=== PATIENT | male | born 1940 | race African-American/Black ===

== ENCOUNTER 2017-11-04 20:45 | Inpatient (IN) | payer OTHER, BC ==
--- NOTE | 2017-11-04 21:04 | PDOC ---
History of Present Illness - General Chief Complaint: Pain Stated Complaint: Abdominal Pain Time Seen by Provider: 11/04/17 21:01 - History of Present Illness Initial Comments: 11/04/17 21:03 77 yo M with h/o DM, HTN, CAD s/p stent placement, CHF, CVA ( residual BL motor weakness) LV systolic dysfunction,Paroxysmal A-fib, CKD, Pulm HTN, s/p transphenoidal pituitary resection who p/w seizure like activity. at bedside states that patient developed 90 minutes of upper extremity convulsions , with dsyphagia. Reports similar episode in ED room. Similar to seizure 1 month ago. Patient with chronic fecal and urinary incontinence. Denies head/neck /back trauma. also reports increased BL LE swelling x 1 day. Patient typically wheelchair bound. Compliant with medication. Recent change in home Lasix (decreased) on 20 mg PO QD. No home 02 requirements. Denies F/C, N/V, CP, SOB, abdominal pain, diarrhea, constipation, urinary complaints, weakness, lightheadedness, sensory changes. PMHx: as noted above PMD: Dr. gisel montes de oca ROS: as noted above SHx: Denies tobacco, Etoh, or IVDA. Allergies: NKDA Past History - Past Medical History Allergies/Adverse Reactions: Allergies Allergy/AdvReac Type Severity Reaction Status Date / Time No Known Allergies Allergy Verified 11/04/17 21:06 Home Medications: Ambulatory Orders Cabergoline 0.5 mg PO FAUST 11/20/13 Clopidogrel Bisulfate [Clopidogrel] 75 mg PO DAILY 11/20/13 Ranitidine HCl 150 mg PO DAILY 11/20/13 Rosuvastatin Calcium [Crestor] 10 mg PO DAILY 11/20/13 Tamsulosin HCl [Flomax -] 0.4 mg PO DAILY 11/20/13 levETIRAcetam [Keppra -] 500 mg PO DAILY 11/20/13 Isosorbide Dinitrate 20 mg PO BID #0 tablet 11/28/13 hydrALAZINE HCL [Apresoline -] 50 mg PO BID #0 tablet 11/28/13 Furosemide 20 mg PO DAILY 07/07/15 Carvedilol [Coreg -] 6.25 mg PO BID tablet 07/15/15 Ranolazine [Ranexa -] 500 mg PO BID tab 07/15/15 Cardiac Disorders: Yes (CHF) CVA: Yes (Seizure) Diabetes: Yes HTN: Yes Seizures: Yes - Surgical History Abdominal Surgery: Yes (HERNIA) Appendectomy: Yes Cardiac Surgery: Yes (STENT X 1) Orthopedic Surgery: Yes (L. elbow) - Immunization History Immunization Up to Date: Yes - Suicide/Smoking/Psychosocial Hx Smoking Status: Yes Smoking History: Current every day smoker Have you smoked in the past 12 months: Yes Number of Cigarettes Smoked Daily: 4 'Breaking Loose' booklet given: 07/07/15 Hx Alcohol Use: No Drug/Substance Use Hx: No Substance Use Type: None Hx Substance Use Treatment: No Review of Systems - Review of Systems Comments:: 11/04/17 21:03 GENERAL/CONSTITUTIONAL: No fever or chills. No weakness. HEAD, EYES, EARS, NOSE AND THROAT: No change in vision. No ear pain or discharge. No sore throat. CARDIOVASCULAR: No chest pain or shortness of breath RESPIRATORY: No cough, wheezing, or hemoptysis. GASTROINTESTINAL: No nausea, vomiting, diarrhea or constipation. GENITOURINARY: No dysuria, frequency, or change in urination. MUSCULOSKELETAL: No joint or muscle swelling or pain. No neck or back pain. SKIN: No rash NEUROLOGIC: No headache, vertigo, loss of consciousness, or change in strength/ sensation. ENDOCRINE: No increased thirst. No abnormal weight change HEMATOLOGIC/LYMPHATIC: No anemia, easy bleeding, or history of blood clots. ALLERGIC/IMMUNOLOGIC: No hives or skin allergy. *Physical Exam - Physical Exam Comments: 11/04/17 21:03 GENERAL: Awake, alert, and fully oriented, in no acute distress HEAD: No signs of trauma, normocephalic, atraumatic EYES: PERRLA, EOMI, sclera anicteric, conjunctiva clear ENT: Left eye ptosis. Auricles normal inspection, hearing grossly normal, nares patent, oropharynx clear without exudates. Moist mucosa NECK: Normal ROM, supple, no lymphadenopathy, JVD, or masses LUNGS: + Rales BL LL bases.Absent rhonci. HEART: Regular rate and rhythm, normal S1 and S2, no murmurs, rubs or gallops, peripheral pulses normal and equal bilaterally. ABDOMEN: Soft, nontender, normoactive bowel sounds. No guarding, no rebound. No masses EXTREMITIES : 3+ BL LE + Pitting edema. No clubbing or cyanosis. NEUROLOGICAL: Cranial nerves II through XII grossly intact. Normal speech. 3/5 BL UE and 2/5 BL LE SKIN: Warm, Dry, normal turgor, no rashes or lesions noted ED Treatment Course - LABORATORY CBC & Chemistry Diagram: 11/04/17 22:22 11/04/17 22:22 Medical Decision Making - Medical Decision Making 11/04/17 22:14 77 yo M with h/o DM, HTN, CAD, CHF, CVA ( residual BL motor weakness) LV systolic dysfunction,Paroxysmal A-fib, CKD, Pulm HTN, s/p transphenoidal pituitary resection who p/w seizure like activity and increased LE swelling. VSS , AF, A&Ox3. Patient with clinical s/s of fluid overload, crackles in bases, SOB , BL LE edema, Probable acute on chronic congestive heart failure. ACS/AZ r/o. R /o PNA. Will assess for electrolyte abnml, toxic or metabolic derangements,acid- base disturbances, or underlying infection. ED Course: 11/04/17 22:34 H/H: 4.8/16.8 11/04/17 23:29 BNP: 250523 ~ baseline BUN/Cr: 35/2.1 (39/1.8 2015) 2 U PRBC 11/04/17 23:50 Lasix 40 mg IVPB Patient admitted to in. tele Dr. Amanda. *DC/Admit/Observation/Transfer Diagnosis at time of Disposition: Anemia requiring transfusions, CHF (congestive heart failure) - Discharge Dispostion Condition at time of disposition: Fair Decision to Admit order: Yes - Referrals Referrals: Navya Montes De Oca MD [Primary Care Provider] - - Patient Instructions - Post Discharge Activity - Attestations Physician Attestion: 11/04/17 21:04 I attest to the information provided in this note.
[2017-11-04 22:49] LABS: BASO % 0.3 % (0-2.0); EOS % 0.9 % (0-4.5); LYMPH % 15.1 % (8-40); MCH 24.8 pg (25.7-33.7); MCHC 28.8 g/dl (32.0-35.9); MEAN CELL VOLUME 86.3 fl (80-96); MEAN PLT VOLUME 7.5 fl (7.5-11.1); MONO % 7.2 % (3.8-10.2); NEUT % 76.5 % (42.8-82.8); PLATELET COUNT 162 K/MM3 (134-434); RBC 1.95 M/mm3 (4.00-5.60); RDW 20.6 % (11.9-15.9); WHITE BLOOD COUNT 5.2 K/mm3 (4.0-10.0)
[2017-11-04 22:51] LABS: ADD RBC MORPHOLOGY YES
[2017-11-04 22:55] LABS: HEMATOCRIT 16.8 % (35.4-49); HEMOGLOBIN 4.8 GM/dL (11.7-16.9)
[2017-11-04 22:58] LABS: INR 1.37 (0.82-1.09); PROTHROMBIN TIME (PATIENT) 15.5 SEC (9.7-13.0)
[2017-11-04 23:08] LABS: ALBUMIN 2.9 g/dl (3.4-5.0); ALK PHOS 84 U/L (45-117); ANION GAP 4 (8-16); BILIRUBIN,TOTAL 0.5 mg/dL (0.2-1.0); BLOOD UREA NITROGEN 35 mg/dL (7-18); CALCIUM 7.6 mg/dL (8.5-10.1); CHLORIDE 106 mmol/L (98-107); CO2 32 mmol/L (21-32); CREATININE 2.1 mg/dL (0.7-1.3); GLUCOSE,RANDOM 116 mg/dL (74-106); POTASSIUM 4.3 mmol/L (3.5-5.1); SGOT/AST 13 U/L (15-37); SGPT/ALT 8 U/L (12-78); SODIUM 142 mmol/L (136-145); TOT PROT 6.7 g/dl (6.4-8.2)
[2017-11-04 23:22] LABS: MAGNESIUM 2.1 mg/dL (1.8-2.4)
[2017-11-04 23:23] LABS: N-TERMINAL BNP 10315.2 pg/ml (5-450)
[2017-11-04 23:29] LABS: ACANTHOCYTES 1+; ANISOCYTOSIS 1+; OVALOCYTE 1+; TEAR DROP CELLS 1+
[2017-11-04 23:31] LABS: URINE APPEARANCE CLEAR; URINE BILIRUBIN NEGATIVE (<2.0 mg/dL); URINE BLOOD NEGATIVE (NEGATIVE); URINE COLOR LTYELLOW; URINE GLUCOSE (UA) NEGATIVE (NEGATIVE); URINE KETONE NEGATIVE (NEGATIVE); URINE LEUK ESTERASE NEGATIVE (NEGATIVE); URINE NITRITE NEGATIVE (NEGATIVE); URINE UROBILINOGEN NEGATIVE mg/dL (0.2-1.0)
--- NOTE | 2017-11-04 23:40 | PDOC ---
Attending Attestation - Resident Resident Name: Ayden Franco - ED Attending Attestation I have performed the following: I have examined & evaluated the patient, The case was reviewed & discussed with the resident, I agree w/resident's findings & plan, Exceptions are as noted - HPI HPI: 11/04/17 23:39 77-year-old male brought in by ambulance. His witnessed seizure-like activity Patient was alert upon arrival - Physicial Exam PE: 11/04/17 23:40 Patient has multiple medical problems including diabetes, hypertension, coronary artery disease, status post vent placement, CHF, CVA with residual motor weakness, paroxysmal A. fib, LV systolic dysfunction, chronic kidney disease, pulmonary hypertension 11/04/17 23:41 pale appearing 77 yo male head ncat eyes cristhian ,pale conjunctiva neck supple lung no wheezing, no crackles abd protuberant extremitites +3 pitting edema neuro alert and conversant - Medical Decision Making 11/04/17 23:43 labs reveal he is very anemic with hbg=4 and hemoglobin =16 -no vomiting,no melena and stool culture for occult blood is negative,admit to transfuse
[2017-11-04] MEDS ORDERED: FUROSEMIDE 40 MG/4 ML INJECTABLE VIAL IVPUSH ONE (23:49)
[2017-11-05] MEDS ORDERED: FUROSEMIDE 40 MG/4 ML INJECTABLE VIAL ONE ×2 (00:01→13:00)
[2017-11-05 00:04] LABS: URINE PROTEIN 1+ (NEGATIVE)
[2017-11-05 00:49] LABS: EPI CELLS RARE /HPF (FEW)
--- NOTE | 2017-11-05 02:21 | HP ---
CHIEF COMPLAINT: seizure PCP: Ochoa Montes De Oca HISTORY OF PRESENT ILLNESS: This is a 77 year old male with a past medical history significant for HTN, CAD , CHF, seizure disorder presented to the ED after seizure activity at home. As per the ED provider, reported shaking activity of upper extremities and difficulty speaking, speech was unintelligible. She stated this lasted for 90minutes. Upon exam pt reports that he came in because he was having difficulty speaking. He also reports that someone recently discontinued many of his medications. He is unclear but it seems as if he was recently discharged from a SNF. ER course was notable for: (1) Hgb 4.8 (2) BUN 35, Cr 2.1 (3) CXR with vascular congestion Recent Travel: pt denies PAST MEDICAL HISTORY: DM, HTN, CAD, CHF/LV systolic dysfunction, PAfib, pulmonary HTN, CVA PAST SURGICAL HISTORY: cardiac stent pituitary resection hernia repair L elbow sx Social History: Smoking: quit 6 mo ago, previous 4cig/day Alcohol: pt denies Drugs: pt denies Family History: pt unsure Allergies No Known Allergies Allergy (Verified 11/04/17 21:06) HOME MEDICATIONS: 3 Medication Instructions Recorded Tamsulosin HCl [Flomax -] 0.4 mg PO DAILY 11/20/13 Furosemide 40 mg PO DAILY 07/07/15 Febuxostat [Uloric -] 80 mg PO DAILY 11/05/17 Lisinopril 2 tablet PO DAILY 11/05/17 Omeprazole 20 mg PO DAILY 11/05/17 REVIEW OF SYSTEMS CONSTITUTIONAL: Absent: fever, chills, diaphoresis, generalized weakness, malaise, loss of appetite, weight change HEENT: Absent: rhinorrhea, nasal congestion, throat pain, throat swelling, difficulty swallowing, mouth swelling, ear pain, eye pain, visual changes CARDIOVASCULAR: Absent: chest pain, syncope, palpitations, irregular heart rate, lightheadedness , peripheral edema RESPIRATORY: Absent: cough, shortness of breath, dyspnea with exertion, orthopnea, wheezing, stridor, hemoptysis GASTROINTESTINAL: Absent: abdominal pain, abdominal distension, nausea, vomiting, diarrhea, constipation, melena, hematochezia GENITOURINARY: Absent: dysuria, frequency, urgency, hesitancy, hematuria, flank pain, genital pain MUSCULOSKELETAL: Absent: myalgia, arthralgia, joint swelling, back pain, neck pain SKIN: Absent: rash, itching, pallor HEMATOLOGIC/IMMUNOLOGIC: Absent: easy bleeding, easy bruising, lymphadenopathy, frequent infections ENDOCRINE: Absent: unexplained weight gain, unexplained weight loss, heat intolerance, cold intolerance NEUROLOGIC: Present: upper extremity shaking, difficulty speaking Absent: headache, focal weakness or paresthesias, dizziness, unsteady gait, mental status changes, bladder or bowel incontinence PSYCHIATRIC: Absent: anxiety, depression, suicidal or homicidal ideation, hallucinations. PHYSICAL EXAMINATION Vital Signs - 24 hr 3 11/04/17 11/04/17 11/05/17 21:01 21:05 01:35 Temperature 98.8 F 97.9 F Pulse Rate 59 L Pulse Rate [ 66 Apical] Respiratory 16 24 Rate Blood Pressure 144/78 Blood Pressure 115/66 [Right Arm] O2 Sat by Pulse 92 L 97 95 Oximetry (%) 3 11/05/17 01:50 Temperature 97.8 F Pulse Rate Pulse Rate [ 58 L Apical] Respiratory 22 Rate Blood Pressure Blood Pressure 146/63 [Right Arm] O2 Sat by Pulse 95 Oximetry (%) GENERAL: Awake, alert, and fully oriented, in no acute distress. HEAD: Normal with no signs of trauma. EYES: Pupils equal, round and reactive to light, extraocular movements intact, sclera anicteric, conjunctiva clear. No lid lag. EARS, NOSE, THROAT: Ears normal, nares patent, oropharynx clear without exudates. Moist mucous membranes. NECK: Normal range of motion, supple without lymphadenopathy, JVD, or masses. LUNGS: Crackles bilat bases. No accessory muscle use. HEART: Regular rate and rhythm, normal S1 and S2 without murmur, rub or gallop. ABDOMEN: Soft, nontender, not distended, normoactive bowel sounds, no guarding, no rebound, no masses. No hepatomegaly or splenomegaly. MUSCULOSKELETAL: Normal range of motion at all joints. No bony deformities or tenderness. No CVA tenderness. UPPER EXTREMITIES: 2+ pulses, warm, well-perfused. No cyanosis. No clubbing. No peripheral edema. noted with tremors to upper extremities LOWER EXTREMITIES: 2+ pulses, warm, well-perfused. No calf tenderness. No peripheral edema. NEUROLOGICAL: Cranial nerves II-XII intact. Stuttering speech noted. PSYCHIATRIC: Cooperative. Good eye contact. Appropriate mood and affect. SKIN: Warm, dry, normal turgor, no rashes or lesions noted, normal capillary refill. Laboratory Results - last 24 hr 3 11/04/17 11/04/17 11/04/17 22:22 22:22 22:22 WBC 5.2 RBC 1.95 L D Hgb 4.8 L* D Hct 16.8 L D MCV 86.3 MCH 24.8 L MCHC 28.8 L RDW 20.6 H D Plt Count 162 MPV 7.5 Neutrophils % 76.5 Lymphocytes % 15.1 D Monocytes % 7.2 Eosinophils % 0.9 Basophils % 0.3 Hypochromia 3+ Polychromasia 1+ Anisocytosis 1+ Tear Drop Cells 1+ Ovalocytes 1+ Acanthocytes (Spur) 1+ PT with INR 15.50 H INR 1.37 H Sodium 142 Potassium 4.3 Chloride 106 Carbon Dioxide 32 Anion Gap 4 L BUN 35 H Creatinine 2.1 H Creat Clearance w eGFR 30.62 Random Glucose 116 H Calcium 7.6 L Magnesium Total Bilirubin 0.5 D AST 13 L D ALT 8 L D Alkaline Phosphatase 84 Creatine Kinase Troponin I B-Natriuretic Peptide Total Protein 6.7 Albumin 2.9 L Urine Color Urine Appearance Urine pH Ur Specific [place] Urine Protein Urine Glucose (UA) Urine Ketones Urine Blood Urine Nitrite Urine Bilirubin Urine Urobilinogen Ur Leukocyte Esterase Urine WBC (Auto) Urine RBC (Auto) Ur Epithelial Cells Stool Occult Blood Anti-A Titer Blood Type Antibody Screen Crossmatch 3 11/04/17 11/04/17 11/04/17 11/04/17 22:22 22:22 22:22 22:56 WBC RBC Hgb Hct MCV MCH MCHC RDW Plt Count MPV Neutrophils % Lymphocytes % Monocytes % Eosinophils % Basophils % Hypochromia Polychromasia Anisocytosis Tear Drop Cells Ovalocytes Acanthocytes (Spur) PT with INR INR Sodium Potassium Chloride Carbon Dioxide Anion Gap BUN Creatinine Creat Clearance w eGFR Random Glucose Calcium Magnesium 2.1 Total Bilirubin AST ALT Alkaline Phosphatase Creatine Kinase 108 Troponin I 0.02 D B-Natriuretic Peptide 37935.20 H Total Protein Albumin Urine Color Urine Appearance Urine pH Ur Specific [place] Urine Protein Urine Glucose (UA) Urine Ketones Urine Blood Urine Nitrite Urine Bilirubin Urine Urobilinogen Ur Leukocyte Esterase Urine WBC (Auto) Urine RBC (Auto) Ur Epithelial Cells Stool Occult Blood Negative Anti-A Titer Cancelled Blood Type B POSITIVE Cancelled Antibody Screen Negative Cancelled Crossmatch See Detail 3 Urine Color Ltyellow 11/04/17 23:17 Urine Appearance Clear 11/04/17 23:17 Urine pH 5.0 (5.0-8.0) 11/04/17 23:17 Ur Specific [place] 1.013 (1.001-1.035) 11/04/17 23:17 Urine Protein 1+ (NEGATIVE) H 11/04/17 23:17 Urine Glucose (UA) Negative (NEGATIVE) 11/04/17 23:17 Urine Ketones Negative (NEGATIVE) 11/04/17 23:17 Urine Blood Negative (NEGATIVE) 11/04/17 23:17 Urine Nitrite Negative (NEGATIVE) 11/04/17 23:17 Urine Bilirubin Negative (<2.0 mg/dL) 11/04/17 23:17 Ur Leukocyte Esterase Negative (NEGATIVE) 11/04/17 23:17 Urine WBC (Auto) 1 11/04/17 23:17 Urine RBC (Auto) <1 11/04/17 23:17 Ur Epithelial Cells Rare /HPF (FEW) 11/04/17 23:[address] head noncontrast THIS IS A PRELIMINARY REPORT FROM [employer] [employer] No acute brain parenchymal abnormality. No hemorrhage, mass or acute territorial infarct. Atrophy and chronic small vessel ischemic changes. Osteoma left frontal sinus. Visualized mastoid air cells clear. THIS DOCUMENT HAS BEEN ELECTRONICALLY SIGNED Chen Juarez M.D. 11/05/2017 01:18 EST ASSESSMENT/PLAN: 77yM with PMH DM, HTN, CAD, CHF/LV systolic dysfunction, PAfib, pulmonary HTN, CVA presented to the ED with seizure like activity. seizure activity - pt previously on keppra at home, unclear why DC - start keppra 500mg IV x 1 - neurology consult-pt does not know if he sees a neurologist as an outpatient CHF exac - reported to ED staff that his lasix dose was recently reduced to 20mg daily but she is unclear why - lasix 40mg x 1 now - will need to assess between units of blood if needs additional 40mg - echo ordered Severe anemia - 2uPRBC now - unclear etiology. Stool occ negative - elevated RDW points to blood loss - stool occ blood x 2 more ordered HTN/CAD - home isordil and ranexa stopped, unclear why, cardiology consult ordered - cont home lisinopril PAfib - not on AC, cardiology consult DM - on no home meds, glucose 116, cont to monitor with BMP, if hi will add novolog sliding scale and BGM CKD - Cr 2.1, baseline 1.8-1.9 in 2016, likely not far from baseline, cont to monitor, consider renal consult DVT PPX - heparin deferred due to severe anemia FEN - No IVF, receiving blood presently - BMP in am - NPO for now. Dispo: Pt currently requires further inpatient monitoring. Visit type - Emergency Visit Emergency Visit: Yes ED Registration Date: 11/04/17 Care time: The patient presented to the Emergency Department on the above date and was hospitalized for further evaluation of their emergent condition. - New Patient This patient is new to me today: Yes Date on this admission: 11/05/17 - Critical Care Critical Care patient: No Hospitalist Screening - Colonoscopy Questionnaire Colonoscopy Questionnaire: Colonoscopy Questionnaire - Patient: 50 - 75 years old and never had a screening colonoscopy: No History of colon or rectal polyps, or CA: No History of IBD, Crohn's disease or UC: No History of abdominal radiation therapy as a child: No - Relative: 1 with colon or rectal CA, or polyps at age 60 or younger: Unknown Colon or rectal CA diagnosed at age 45 or younger: Unknown Multiple relatives with colon or rectal CA: Unknown - Outcome: Screening Result: Negative Screen
[2017-11-05] MEDS ORDERED: levETIRAcetam 500 MG/5 ML INJECTION VIAL IVPB ONE ×2 (03:09→04:03)
--- NOTE | 2017-11-05 09:41 | PN ---
Progress Note, Physician History of Present Illness: 77yM with PMH DM, HTN, CAD, CHF/LV systolic dysfunction, PAfib, pulmonary HTN, CVA presented to the ED with seizure like activity. - Current Medication List Current Medications: Active Medications Febuxostat (Uloric -) 80 mg PO DAILY MICHAEL Lisinopril (Prinivil) 40 mg PO DAILY MICHAEL Pantoprazole Sodium (Protonix -) 20 mg PO DAILY MICHAEL Tamsulosin HCl (Flomax -) 0.4 mg PO DAILY@08[facility] - Objective Vital Signs: Vital Signs Temperature 98.2 F 11/05/17 04:50 Pulse Rate 68 11/05/17 07:00 Respiratory Rate 18 11/05/17 07:00 Blood Pressure 156/57 11/05/17 07:00 O2 Sat by Pulse Oximetry (%) 96 11/05/17 07:00 Labs: CBC, BMP 11/04/17 22:22 11/04/17 22:22 INR, PTT INR 1.37 (0.82-1.09) H 11/04/17 22:22 Problem List - Problems (1) Anemia requiring transfusions Assessment/Plan: -Severe anemia - 2uPRBC--follow up cbc - unclear etiology. Stool occ negative - elevated RDW points to blood loss - stool occ blood x 2 more ordered - No IVF, receiving blood presently - GI consult - NPO for now. Code(s): D64.9 - ANEMIA, UNSPECIFIED (2) CHF (congestive heart failure) Assessment/Plan: -CHF exac - lasix 40mg given - will need to assess between units of blood if needs additional 40mg - echo ordered -cardio Code(s): I50.9 - HEART FAILURE, UNSPECIFIED (3) Afib Assessment/Plan: -not on Ac -cardio Code(s): I48.91 - UNSPECIFIED ATRIAL FIBRILLATION Qualifiers: Atrial fibrillation type: paroxysmal Qualified Code(s): I48.0 - Paroxysmal atrial fibrillation (4) CAD (coronary artery disease) Assessment/Plan: -monitor Code(s): I25.10 - ATHSCL HEART DISEASE OF [place] CORONARY ARTERY W/O ANG PCTRS (5) Seizure disorder Assessment/Plan: - pt previously on keppra at home, unclear why DC - start keppra 500mg IV x 1 - neurology consult-pt does not know if he sees a neurologist as an outpatient Code(s): G40.909 - EPILEPSY, UNSP, NOT INTRACTABLE, WITHOUT STATUS EPILEPTICUS
[2017-11-05 10:44] LABS: BASO % 0.7 % (0-2.0); EOS % 1.3 % (0-4.5); LYMPH % 15.8 % (8-40); MCHC 30.4 g/dl (32.0-35.9); MEAN CELL VOLUME 85.4 fl (80-96); MEAN PLT VOLUME 7.7 fl (7.5-11.1); NEUT % 74.2 % (42.8-82.8); PLATELET COUNT 171 K/MM3 (134-434); RBC 2.44 M/mm3 (4.00-5.60); RDW 18.1 % (11.9-15.9); WHITE BLOOD COUNT 5.2 K/mm3 (4.0-10.0)
[2017-11-05 10:51] LABS: HEMATOCRIT 20.8 % (35.4-49); HEMOGLOBIN 6.3 GM/dL (11.7-16.9)
[2017-11-05 10:57] LABS: ANION GAP 5 (8-16); BLOOD UREA NITROGEN 37 mg/dL (7-18); CALCIUM 7.7 mg/dL (8.5-10.1); CHLORIDE 107 mmol/L (98-107); CO2 30 mmol/L (21-32); CREATININE 2.1 mg/dL (0.7-1.3); GLUCOSE,RANDOM 93 mg/dL (74-106); PHOSPHOROUS 5.3 mg/dL (2.5-4.9); POTASSIUM 4.3 mmol/L (3.5-5.1); SODIUM 142 mmol/L (136-145)
[2017-11-05] MEDS ORDERED: FUROSEMIDE 40 MG/4 ML INJECTABLE VIAL IVPUSH ONE (11:00)
--- NOTE | 2017-11-05 11:06 | CON.CARD ---
Cardiology Consult (text) - Consultation Consultation Note: CC: seizure 77yo with hx of cmpathy/systolic chf with severely reduced lvef, pafib, cad s/ p remote pci (2010 per pt), htn, hld, ckd (bline cr? ~ 1.8-2.0), CVA ( residual BL motor weakness) , seizure who p/w possible seizure, ER course notable for hgb of 4.0. per report, patient developed 90 minutes of upper extremity convulsions, with dysphagia. Reports similar episode in ED room. Similar to seizure 1 month ago. Recent change in home Lasix (decreased) to 20 mg PO QD. States his LE edema has been stable/improved. Denies bleeding. denies orthopnea, pnd, cp, sob, palps, dizziness. denies f/c/s, n/v/d, cough, congestion, h/a, rash, visual disturbances. 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 fam: no premature cad or scd ros: per hpi Ambulatory Orders Tamsulosin HCl [Flomax -] 0.4 mg PO DAILY 11/20/13 Furosemide 40 mg PO DAILY 07/07/15 Febuxostat [Uloric -] 80 mg PO DAILY 11/05/17 Lisinopril 2 tablet PO DAILY 11/05/17 Omeprazole 20 mg PO DAILY 11/05/17 Current Medications Febuxostat (Uloric -) 80 mg PO DAILY [facility] Furosemide (Lasix Injection -) 40 mg IVPUSH ONCE ONE Stop: 11/05/17 11:01 Lisinopril (Prinivil) 40 mg PO DAILY [facility] Pantoprazole Sodium (Protonix -) 20 mg PO DAILY [facility] Tamsulosin HCl (Flomax -) 0.4 mg PO DAILY@0830 [facility] Vital Signs - 24 hr 11/04/17 11/04/17 11/05/17 21:01 21:05 01:35 Temperature 98.8 F 97.9 F Pulse Rate 59 L Pulse Rate [ 66 Apical] Respiratory 16 24 Rate Blood Pressure 144/78 Blood Pressure 115/66 [Right Arm] O2 Sat by Pulse 92 L 97 95 Oximetry (%) 11/05/17 11/05/17 11/05/17 01:50 03:41 04:35 Temperature 97.8 F 98.0 F 98.1 F Pulse Rate Pulse Rate [ 58 L 69 60 Apical] Respiratory 22 26 H 21 Rate Blood Pressure Blood Pressure 146/63 139/72 152/80 [Right Arm] O2 Sat by Pulse 95 100 100 Oximetry (%) 11/05/17 11/05/17 04:50 07:00 Temperature 98.2 F Pulse Rate Pulse Rate [ 62 68 Apical] Respiratory 19 18 Rate Blood Pressure Blood Pressure 144/85 156/57 [Right Arm] O2 Sat by Pulse 100 96 Oximetry (%) Intake & Output 11/03/17 11/04/17 11/05/17 11/06/17 07:59 07:59 07:59 07:59 Weight 265 lb nad, calm, sleepy jvd at clavicle, neck supple bibasilar rales, nl effort rrr nl s1, s2 2/6 sys murmur at apex. + bs soft nt nd, no hsm ext with trace edema diminished dp/pt alert and oriented no jaundice, diaphoresis CBC, BMP 11/05/17 10:23 11/05/17 10:23 Laboratory Tests 07/06/15 11/04/17 11/04/17 17:08 22:22 22:22 Hgb 4.8 L* D INR 1.37 H Creatinine Magnesium Total Bilirubin AST ALT Alkaline Phosphatase B-Natriuretic Peptide 49548.88 H Troponin I Stool Occult Blood 11/04/17 11/04/17 11/04/17 22:22 22:22 22:56 Hgb INR Creatinine 2.1 H Magnesium 2.1 Total Bilirubin 0.5 D AST 13 L D ALT 8 L D Alkaline Phosphatase 84 B-Natriuretic Peptide 85744.20 H Troponin I 0.02 D Stool Occult Blood Negative 11/05/17 10:23 Hgb INR Creatinine Magnesium 2.0 Total Bilirubin AST ALT Alkaline Phosphatase B-Natriuretic Peptide Troponin I Stool Occult Blood ekg: afib, svr (52 bpm). no acute ischemic changes. tele: afib, rate's controlled. Intermittent slow ventricular response. head ct: no acute pathology cxr: bibasilar atelectasis, can't exclude early infiltrate. by my review ? congestion (fluid in fissure). 07/20/15 Cardiac cath - Right-Sided Pressures are Increased, Mild Pulmonary Hypertension (pa mean 30), PVRI is mildly increased - 5, PCW is increased- 18, LVEDP is mildly elevated-18, Decreased Cardiac Output ~ 5.6 liter/min Coronary Anatomy : I Vessel CAD (RCA) LV Function/Aorta : Moderate systolic LV Dysfunction ~EF 35% Valves : 1. No Aortic stenosis 2. No Mitral stenosis 07/21/15 TTE - normal left ventricular size overall moderate decreased left ventricular systolic function (diffuse); ejection fraction = 43 % moderate concentric left ventricular hypertrophy abnormal left ventricular diastolic filling pattern [may be due to age or LVH] probable mild right ventricular dilatation probable mild decreased right ventricular function mild to moderate mitral regurgitation mild tricuspid regurgitation mild pulmonary hypertension ascending aorta dilatation technically difficult study Definity precision microbubble contrast used to enhance endocardial border definition mibi 06/2015: lvef 33%, no defects but +tid c/w high risk study ASSESSMENT/PLAN 77yo with hx of cmpathy/systolic chf with severely reduced lvef, pafib, cad s/ p remote pci (2010 per pt), htn, hld, ckd (bline cr? ~ 1.8-2.0), CVA ( residual BL motor weakness) , seizure who p/w possible seizure, ER course notable for hgb of 4.0. anemia - ongoing transfusions. tolerating, no developing signs of volume overload with intermittent IV lasix. - GI following. Seizure/cva - neuro following - tele monitoring, monitor for arrhythmias. - echo. Permanent Afib - on last discharge from [facility] in 2015 was d/c on eliquis and asa. AC not on recent med list. ? at what point it was stopped - ok to hold AC/anti-platelets in setting of profound anemia. - However, if neuro concerned for embolic stroke --> will need to d/w GI regarding etiology of anemia. - rate controlled off av sravanthi blockade. Systolic HF - had previously been on coreg, would now resume yet in light of afib with slow ventricular rate. con't lisinopril. repeat echo pending. - s/p lasix 40 mg IV x 1 on 11/04 and 11/05. Patient denies sx's of volume overload. Prior d/c weight from 2016 was 213 lbs. Cxr by my review with ? congestion. If Creatinine stable tomorrow on iv lasix, would con't current iv lasix dose daily. - daily weights, i/o's. bmp. CAD hx prior PCI s/p (+) MPI at OSH. (no recent interventions) - ~S/p Cardiac cath 07/20/15 with Non Obstructive CAD. - holding anti-plateletes in light of profound anemia. - currently not on statin?, previously on crestor 10 mg/day, will resume. htn - bp controlled on current regimen, con't
--- NOTE | 2017-11-05 12:35 | CON.GI ---
Consult Consult Specialty:: GI Reason for Consultation:: Anemia - History of Present Illness History of Present Illness: Chart reviewed. Events noted. Per initial intake: This is a 77 year old male with a past medical history significant for HTN, CAD, CHF, seizure disorder presented to the ED after seizure activity at home. As per the ED provider, reported shaking activity of upper extremities and difficulty speaking, speech was unintelligible. She stated this lasted for 90minutes. Upon exam pt reports that he came in because he was having difficulty speaking. He also reports that someone recently discontinued many of his medications. He is unclear but it seems as if he was recently discharged from a SNF. Admission labs reveal hbg 4 g/dl. Normocytic, hypochromic. Negative hemoccult. No melanotic stools hematemesis, hematochezia. No prior history of GI bledeing. No stigmata of resent, or ongoing GI bleeding otherwise reported. Recieved 2 u PRBC last night. Hgb 6.3 this am. At the time of this encounter, Head of the bed elevated about 40 degree. dyspneic, has difficulty completing sentences due to shortens of breath. Denies abdominal pain, nausea, diarrhea, dysphagia, odynophagia, dyspepsia. 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) History of Recent Travel: No Home Medications - Allergies Allergies/Adverse Reactions: Allergies Allergy/AdvReac Type Severity Reaction Status Date / Time No Known Allergies Allergy Verified 11/04/17 21:06 - Home Medications Home Medications: Ambulatory Orders Tamsulosin HCl [Flomax -] 0.4 mg PO DAILY 11/20/13 Furosemide 40 mg PO DAILY 07/07/15 Febuxostat [Uloric -] 80 mg PO DAILY 11/05/17 Lisinopril 2 tablet PO DAILY 11/05/17 Omeprazole 20 mg PO DAILY 11/05/17 Family Disease History - Family Disease History Family History: Unremarkable Review of Systems Findings/Remarks: as per HPI, H&P Physical Exam-GI Vital Signs: Vital Signs Temperature 98.2 F 11/05/17 04:50 Pulse Rate 68 11/05/17 07:00 Respiratory Rate 18 11/05/17 07:00 Blood Pressure 156/57 11/05/17 07:00 O2 Sat by Pulse Oximetry (%) 96 11/05/17 07:00 Constitutional: Yes: Moderate Distress Eyes: Yes: Conjunctiva Clear HENT: Yes: Atraumatic Neck: Yes: Supple Respiratory: Yes: Orthopnea, SOB. No: Cough, Wheezes Gastrointestinal Inspection: Yes: Distention ...Palpate: Yes: Soft. No: Firm/Rigid, Guarding, Mass, Tenderness, Tenderness, Epigastium, Tenderness, Rebound ...Rectal Exam: Yes: Guaiac Negative Neurological: Yes: Alert Labs: CBC, BMP 11/05/17 10:23 11/05/17 10:23 INR, PTT INR 1.37 (0.82-1.09) H 11/04/17 22:22 Laboratory Last Values WBC 5.2 K/mm3 (4.0-10.0) 11/05/17 10:23 RBC 2.44 M/mm3 (4.00-5.60) L D 11/05/17 10:23 Hgb 6.3 GM/dL (11.7-16.9) L* D 11/05/17 10:23 Hct 20.8 % (35.4-49) L D 11/05/17 10:23 MCV 85.4 fl (80-96) 11/05/17 10:23 MCH 26.0 pg (25.7-33.7) 11/05/17 10:23 MCHC 30.4 g/dl (32.0-35.9) L 11/05/17 10:23 RDW 18.1 % (11.9-15.9) H D 11/05/17 10:23 Plt Count 171 K/MM3 (134-434) 11/05/17 10:23 MPV 7.7 fl (7.5-11.1) 11/05/17 10:23 Neutrophils % 74.2 % (42.8-82.8) 11/05/17 10:23 Lymphocytes % 15.8 % (8-40) 11/05/17 10:23 Monocytes % 8.0 % (3.8-10.2) 11/05/17 10:23 Eosinophils % 1.3 % (0-4.5) 11/05/17 10:23 Basophils % 0.7 % (0-2.0) 11/05/17 10:23 Hypochromia 3+ 11/04/17 22:22 Polychromasia 1+ 11/04/17 22:22 Anisocytosis 1+ 11/04/17 22:22 Tear Drop Cells 1+ 11/04/17 22:22 Ovalocytes 1+ 11/04/17 22:22 Acanthocytes (Spur) 1+ 11/04/17 22:22 PT with INR 15.50 SEC (9.7-13.0) H 11/04/17 22:22 INR 1.37 (0.82-1.09) H 11/04/17 22:22 Sodium 142 mmol/L (136-145) 11/05/17 10:23 Potassium 4.3 mmol/L (3.5-5.1) 11/05/17 10:23 Chloride 107 mmol/L (98-107) 11/05/17 10:23 Carbon Dioxide 30 mmol/L (21-32) 11/05/17 10:23 Anion Gap 5 (8-16) L 11/05/17 10:23 BUN 37 mg/dL (7-18) H 11/05/17 10:23 Creatinine 2.1 mg/dL (0.7-1.3) H 11/05/17 10:23 Creat Clearance w eGFR 30.62 (>60) 11/04/17 22:22 Random Glucose 93 mg/dL (74-106) 11/05/17 10:23 Calcium 7.7 mg/dL (8.5-10.1) L 11/05/17 10:23 Phosphorus 5.3 mg/dL (2.5-4.9) H D 11/05/17 10:23 Magnesium 2.0 mg/dL (1.8-2.4) 11/05/17 10:23 Total Bilirubin 0.5 mg/dL (0.2-1.0) D 11/04/17 22:22 AST 13 U/L (15-37) L D 11/04/17 22:22 ALT 8 U/L (12-78) L D 11/04/17 22:22 Alkaline Phosphatase 84 U/L (45-117) 11/04/17 22:22 Creatine Kinase 108 IU/L (39-308) 11/04/17 22:22 Troponin I 0.02 ng/ml (0.00-0.05) D 11/04/17 22:22 B-Natriuretic Peptide 99337.20 pg/ml (5-450) H 11/04/17 22:22 Total Protein 6.7 g/dl (6.4-8.2) 11/04/17 22:22 Albumin 2.9 g/dl (3.4-5.0) L 11/04/17 22:22 Urine Color Ltyellow 11/04/17 23:17 Urine Appearance Clear 11/04/17 23:17 Urine pH 5.0 (5.0-8.0) 11/04/17 23:17 Ur Specific [place] 1.013 (1.001-1.035) 11/04/17 23:17 Urine Protein 1+ (NEGATIVE) H 11/04/17 23:17 Urine Glucose (UA) Negative (NEGATIVE) 11/04/17 23:17 Urine Ketones Negative (NEGATIVE) 11/04/17 23:17 Urine Blood Negative (NEGATIVE) 11/04/17 23:17 Urine Nitrite Negative (NEGATIVE) 11/04/17 23:17 Urine Bilirubin Negative (<2.0 mg/dL) 11/04/17 23:17 Urine Urobilinogen Negative mg/dL (0.2-1.0) 11/04/17 23:17 Ur Leukocyte Esterase Negative (NEGATIVE) 11/04/17 23:17 Urine WBC (Auto) 1 /hpf (3-5) 11/04/17 23:17 Urine RBC (Auto) <1 /hpf (0-3) 11/04/17 23:17 Ur Epithelial Cells Rare /HPF (FEW) 11/04/17 23:17 Stool Occult Blood Negative (NEGATIVE) 11/04/17 22:56 Anti-A Titer Cancelled 11/04/17 22:22 Blood Type B POSITIVE 11/04/17 23:27 Antibody Screen Negative 11/04/17 22:22 Crossmatch See Detail 11/04/17 22:22 Problem List - Problems (1) Anemia requiring transfusions Code(s): D64.9 - ANEMIA, UNSPECIFIED (2) CHF (congestive heart failure) Code(s): I50.9 - HEART FAILURE, UNSPECIFIED Assessment/Plan A 77 M with the above medical problems admitted for seizures, symptomatic anemia w/o stigmata of resent, or ongoing GI blood loss. S/p 2 u PRBC with resultant Hgb opf 6.3. Cardiogenic and anemia-related dyspnea. Maintain Hg above 8 g/dl. Iron profile, Haptoglobin. Agree with PPI. Clear liquid diet today. Cardiology, Neurology evaluation. Will need endoscopic work up when stable and if cleared by cardiology.
[2017-11-05] MEDS: TAMSULOSIN HCL 0.4 MG CAP.ER.24H (FP) PO SCH (12:59)
[2017-11-05] MEDS: LISINOPRIL 20 MG TABLET (FP) PO SCH (12:59)
[2017-11-05] MEDS: FEBUXOSTAT 80 MG TAB PO SCH (12:59)
[2017-11-05] MEDS: PANTOPRAZOLE 20 MG TABLET (FP) PO SCH (12:59)
--- NOTE | 2017-11-05 21:06 | CONSULT ---
Consult - text type - Consultation Consultation Note: NEUROLOGY CONSULTATION is greatly appreciated: This 77 yo man with h/o HTN, DM, Chol, ASHD, S/P Stents, CHF, AFib, pulm. HTN and CVA is wheelchair bound at home with B/L leg weakness attributed to stroke. S/P transphenoidal hypophysectomy. Maintained on: Cabergoline; Clopidogrel; Ranitidine Rosuvastatin; Tamsulosin; levETIRAcetam [Keppra -] 500 mg PO DAILY;Isosorbide; hydrALAZINE; Furosemide; Carvedilol; and, Ranexa. Recently unwell with new-onset seizure x 1 month and few days of leg swelling. Admitted after witnessed seizures which recurred in the ED where H/H was found to be 4.8/16.8. Now 6.3/20 after transfusions. Given keppra 500 mg IVPB twice in ED. CT of head (reviewed): shows moderate atrophy and scattered microvascular changes. MAIRA: Cor reg. Neck supple. No bruits NEURO: Grunts to sternal pressure with semipurposeful move'ts of L>R. Right arm flacid No response to visual threat. [id number]. Full EOM's to Doll's head. Decreased corneals R>L Leftward head turning Areflexic. Plantars silent. No response to pinch in feet. Grimaces to pinch in arms. IMP: B/L cerebral dysfunction L>>R with Right hemiparesis and left head turn. Consider acute embolic stroke. SUGGEST: Repeat CT of head in the AM. Continue levetiracetam 500 mg q 12 hrs IVPB R/O AL. Echo if cardiology agrees. Thank you very much, Gato Morillo MD
[2017-11-05 21:14] LABS: HEMATOCRIT 25.2 % (35.4-49); HEMOGLOBIN 7.6 GM/dL (11.7-16.9); MCH 26.2 pg (25.7-33.7); MEAN CELL VOLUME 87.2 fl (80-96); MEAN PLT VOLUME 7.7 fl (7.5-11.1); PLATELET COUNT 145 K/MM3 (134-434); RBC 2.89 M/mm3 (4.00-5.60); RDW 18.3 % (11.9-15.9); WHITE BLOOD COUNT 6.2 K/mm3 (4.0-10.0)
--- NOTE | 2017-11-05 23:43 | EKG ---
Test Reason : Blood Pressure : / mmHG Vent. Rate : 052 BPM Atrial Rate : 051 BPM P-R Int : 000 ms QRS Dur : 096 ms QT Int : 494 ms P-R-T Axes : 000 078 197 degrees QTc Int : 459 ms ATRIAL FIBRILLATION WITH SLOW VENTRICULAR RESPONSE CANNOT RULE OUT ANTERIOR INFARCT , AGE UNDETERMINED ABNORMAL ECG WHEN COMPARED WITH ECG OF 11-JUL-2015 14:11, T WAVE VARIATION Confirmed by OLEKSANDR WRIGHT, PREET ([id number]) on 11/05/2017 11:42:53 PM Referred By: Confirmed By:PREET LEGGETT MD
[2017-11-06] MEDS: levETIRAcetam 500 MG/5 ML INJECTION VIAL IVPB SCH ×3 (05:19→21:23)
[2017-11-06 07:56] LABS: CHLORIDE 104 mmol/L (98-107); POTASSIUM 4.3 mmol/L (3.5-5.1); SODIUM 142 mmol/L (136-145)
[2017-11-06] MEDS ORDERED: PT OWN MED DRAWER 7, Y5N ONE ×3 (08:18→21:04)
[2017-11-06 08:23] LABS: ALBUMIN 2.8 g/dl (3.4-5.0); ALK PHOS 79 U/L (45-117); ANION GAP 6 (8-16); BILIRUBIN,TOTAL 0.9 mg/dL (0.2-1.0); BLOOD UREA NITROGEN 38 mg/dL (7-18); CO2 32 mmol/L (21-32); CREATININE 1.8 mg/dL (0.7-1.3); GLUCOSE,RANDOM 80 mg/dL (74-106); SGOT/AST 11 U/L (15-37); SGPT/ALT 7 U/L (12-78); TOT PROT 6.4 g/dl (6.4-8.2)
[2017-11-06] MEDS: TAMSULOSIN HCL 0.4 MG CAP.ER.24H (FP) PO SCH (08:59)
[2017-11-06] MEDS: LISINOPRIL 20 MG TABLET (FP) PO SCH (09:19)
[2017-11-06] MEDS: PANTOPRAZOLE 20 MG TABLET (FP) PO SCH (09:19)
[2017-11-06] MEDS: FEBUXOSTAT 80 MG TAB PO SCH (09:23)
[2017-11-06] MEDS: FUROSEMIDE 40 MG/4 ML INJECTABLE VIAL IVPUSH SCH (11:26)
[2017-11-06] MEDS ORDERED: PEG 3350/NA SULF BICARB CL/KCL 4000 ML SOLN.RECON PO ONE (12:34)
[2017-11-06] MEDS ORDERED: BISACODYL 5 MG TABLET.DR (FP) PO ONE ×2 (12:34→16:30)
--- NOTE | 2017-11-06 12:37 | PN ---
Progress Note (short form) - Note Progress Note: CC: seizure S: no cp, palps, sob, dizziness. s/p prbc's. le edema stable. cards: Dr. Beckman? Current Medications Bisacodyl (Dulcolax -) 20 mg PO ONCE ONE Stop: 11/06/17 12:35 Febuxostat (Uloric -) 80 mg PO DAILY [facility] Last Admin: 11/06/17 09:23 Dose: 80 mg Furosemide (Lasix Injection -) 40 mg IVPUSH DAILY [facility] Levetiracetam (Keppra Injection -) 500 mg IVPB BID [facility] Last Admin: 11/06/17 09:18 Dose: 500 mg Lisinopril (Prinivil) 40 mg PO DAILY [facility] Last Admin: 11/06/17 09:19 Dose: 40 mg Pantoprazole Sodium (Protonix -) 20 mg PO DAILY [facility] Last Admin: 11/06/17 09:19 Dose: 20 mg Polyethylene Glycol/Electrolytes (Golytely Solution -) 4,000 ml PO ONCE ONE Stop: 11/06/17 12:35 Rosuvastatin Calcium (Crestor -) 10 mg PO [facility] Tamsulosin HCl (Flomax -) 0.4 mg PO DAILY@0830 [facility] Last Admin: 11/06/17 08:59 Dose: 0.4 mg Vital Signs - 24 hr 11/05/17 11/05/17 11/05/17 14:20 14:38 17:53 Temperature 97.5 F L 97.9 F Pulse Rate 54 L Pulse Rate [ 62 64 Apical] Respiratory 18 18 19 Rate Blood Pressure 122/65 Blood Pressure 129/50 126/59 [Right Arm] O2 Sat by Pulse 96 96 Oximetry (%) 11/05/17 11/05/17 11/05/17 18:13 18:22 19:00 Temperature Pulse Rate 62 Pulse Rate [ Apical] Respiratory 19 16 18 Rate Blood Pressure 155/71 Blood Pressure [Right Arm] O2 Sat by Pulse 99 99 Oximetry (%) 11/05/17 11/05/17 11/05/17 20:28 22:00 23:00 Temperature Pulse Rate 47 L Pulse Rate [ Apical] Respiratory 16 18 18 Rate Blood Pressure 166/63 Blood Pressure [Right Arm] O2 Sat by Pulse 99 99 Oximetry (%) 11/06/17 11/06/17 11/06/17 02:00 05:24 07:34 Temperature 98.7 F Pulse Rate 75 60 57 L Pulse Rate [ Apical] Respiratory 18 18 18 Rate Blood Pressure 155/71 153/77 124/94 Blood Pressure [Right Arm] O2 Sat by Pulse Oximetry (%) 11/06/17 07:38 Temperature Pulse Rate Pulse Rate [ Apical] Respiratory 18 Rate Blood Pressure Blood Pressure [Right Arm] O2 Sat by Pulse 99 Oximetry (%) Intake & Output 11/04/17 11/05/17 11/06/17 11/07/17 07:59 07:59 07:59 07:59 Intake Total 1090 340 Output Total 120 120 Balance -120 970 340 Weight 265 lb 234 lb 6.4 oz nad, calm jvd at clavicle, neck supple bibasilar rales, nl effort rrr nl s1, s2 2/6 sys murmur at apex. + bs soft nt nd, no hsm ext with trace edema diminished dp/pt alert and oriented no jaundice, diaphoresis CBC, BMP 11/05/17 20:55 11/06/17 06:35 Laboratory Tests 11/06/17 06:35 Ferritin 86.234 Albumin 2.8 L ekg: afib, svr (52 bpm). no acute ischemic changes. tele: afib, rate's 50's-60's. head ct: no acute pathology cxr: bibasilar atelectasis, can't exclude early infiltrate. by my review ? congestion (fluid in fissure). echo 10/2017: nl lv size/fn. 1+ rve. nl rv fn. mod brie. mild-mod ar/mr. mod- sev tr. head ct: no acute pathology. 07/20/15 [place] [facility] Right-Sided Pressures are Increased, Mild Pulmonary Hypertension (pa mean 30), PCW/LVEDP is increased- 18 Coronary Anatomy : I Vessel CAD (RCA) LV Function/Aorta : Moderate systolic LV Dysfunction ~EF 35% Valves : 1. No Aortic stenosis 2. No Mitral stenosis 07/21/15 TTE with definity MSH- normal left ventricular size. overall moderate decreased left ventricular systolic function (diffuse); ejection fraction = 43 % moderate concentric left ventricular hypertrophy abnormal left ventricular diastolic filling pattern [may be due to age or LVH] probable mild right ventricular dilatation. probable mild decreased right ventricular function mild to moderate mitral regurgitation mild tricuspid regurgitation mild pulmonary hypertension ascending aorta dilatation mibi 06/2015: lvef 33%, no defects but +tid c/w high risk study ASSESSMENT/PLAN 77yo with hx of cmpathy/systolic chf with severely reduced lvef, pafib, cad s/ p remote pci (2010 per pt), htn, hld, ckd (bline cr? ~ 1.8-2.0), possible hx of CVA? ( residual BL motor weakness), seizure who p/w seizure, ER course notable for hgb of 4.0. anemia - ongoing transfusions. tolerating, no developing signs of volume overload on daily iv lasix. - Patient endorses prior hx of GIB. States last bleed was 3 weeks ago --> was hospitalized and transfused. - GI following, plan for endoscopy. Patient high risk for sabrina-operative CV events. However, currently optimized from CV perspective. No further testing needed prior to intervention. Seizure - known hx. neuro following - no bradyarrhythmias or ventricular arrhythmias noted thus far on tele monitoring Permanent Afib - [place] [facility] was d/c on eliquis and asa. AC not on recent med list --> per patient, was subsequently stopped due to hx of prior GIB. -con't to hold AC/anti-platelets in setting of profound anemia. anemia work up as above. - rate controlled/slow off av sravanthi blockade. Systolic HF - unknown of prior systolic dysfunction was 2/2 tachymyopathy or ischemic in nature. Repeat echo here shows normalization of cardiac function despite being off optimal HF regimen. - had previously been on coreg, but not on recent outpatient med list. would con't to hold in light of afib with slow ventricular rate. con't lisinopril. - Patient denies sx's of volume overload. Prior d/c weight from 2016 was 213 lbs. Cxr by my review with ? congestion. s/p lasix 40 mg IV x 1 on 11/04 and --> Cr stable today, con't daily iv lasix. - daily weights, i/o's. bmp. CAD hx prior PCI s/p (+) MPI at OSH. (no recent interventions) - S/p Cardiac cath 07/20/15 with Non Obstructive CAD. - off anti-platelets 2/2 prior hx of GIB. here with profound anemia, con't to hold. - statin not listed on outpatient med list. previously on crestor 10 mg/day, resumed here. htn - bp overall reasonably controlled on current regimen, con't
[2017-11-06 15:10] LABS: HEMATOCRIT 24.2 % (35.4-49); HEMOGLOBIN 7.3 GM/dL (11.7-16.9); MCH 26.2 pg (25.7-33.7); MCHC 30.1 g/dl (32.0-35.9); MEAN CELL VOLUME 86.8 fl (80-96); MEAN PLT VOLUME 7.7 fl (7.5-11.1); PLATELET COUNT 155 K/MM3 (134-434); RBC 2.79 M/mm3 (4.00-5.60); RDW 18.2 % (11.9-15.9); WHITE BLOOD COUNT 6.8 K/mm3 (4.0-10.0)
--- NOTE | 2017-11-06 15:36 | PN ---
Progress Note, Physician History of Present Illness: No acute events overnight. No melena, hematochezia, hematemesis. Status post 2 units of PRBC. No blood work this morning. The patient appears to be not in distress, or discomfort. Awake, alert. - Current Medication List Current Medications: Active Medications Febuxostat (Uloric -) 80 mg PO DAILY [facility] Last Admin: 11/06/17 09:23 Dose: 80 mg Furosemide (Lasix Injection -) 40 mg IVPUSH DAILY [facility] Levetiracetam (Keppra Injection -) 500 mg IVPB BID [facility] Last Admin: 11/06/17 09:18 Dose: 500 mg Lisinopril (Prinivil) 40 mg PO DAILY [facility] Last Admin: 11/06/17 09:19 Dose: 40 mg Pantoprazole Sodium (Protonix -) 20 mg PO DAILY [facility] Last Admin: 11/06/17 09:19 Dose: 20 mg Rosuvastatin Calcium (Crestor -) 10 mg PO HS [facility] Tamsulosin HCl (Flomax -) 0.4 mg PO DAILY@0830 [facility] Last Admin: 11/06/17 08:59 Dose: 0.4 mg - Objective Vital Signs: Vital Signs Temperature 98.6 F 11/06/17 13:18 Pulse Rate 58 L 11/06/17 13:18 Respiratory Rate 18 11/06/17 13:18 Blood Pressure 152/92 11/06/17 13:18 O2 Sat by Pulse Oximetry (%) 99 11/06/17 07:38 Constitutional: Yes: No Distress, Calm Gastrointestinal: Yes: Normal Bowel Sounds, Soft. No: Melena, Rectal Bleeding, Tenderness, Vomiting Labs: CBC, BMP 11/06/17 14:41 11/06/17 06:35 INR, PTT INR 1.37 (0.82-1.09) H 11/04/17 22:22 Problem List - Problems (1) Anemia requiring transfusions Code(s): D64.9 - ANEMIA, UNSPECIFIED (2) CHF (congestive heart failure) Code(s): I50.9 - HEART FAILURE, UNSPECIFIED Assessment/Plan EGD and colonoscopy were discussed with the patient in detail. He verbalized understanding and agrees with the plan. Clear liquid diet and bowel prep tonight. CBC, CMP, PT/INR in a.m.
[2017-11-06] MEDS: ROSUVASTATIN CA 10 MG TABLET (FP) PO SCH (21:50)
--- NOTE | 2017-11-06 22:35 | PN ---
Progress Note (short form) - Note Progress Note: NEUROLOGY FOLLOW-UP: Events reviewed: H/H=7.3/24.[address] deferred as patient exhibited improved LOC last night. Now awake, alert and giving a lucid history. 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 Had seizures after the surgery with recurrence last month. After D/C to [facility] was essentially W/C bound a gradually "lost muscles" in his legs. Pt. cannot recall events prior to admission. Now: Awake, alert. Ox [facility] but recalls [facility] after 5 mins. Ox Oct, 2017, [place]. Blind OS with decreased EOMs. Full tang OD Arms normal. Legs 3/5 proximally and 4+/5 distally. Areflexic in legs. Normal sensation in the feet. IMP: 1. Mild B/L cerebral dysfunction 2. 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 3. May well have been in status epilepticus last night and/or post-ictal Much improved today. SUGGEST: Continue levetiracetam 500 mg q 12 h Check CK, B12, ESR, CRP. Aggressive Bedside PT and [facility] medically [facility]. Thank you very much, Gato Morillo MD
[2017-11-07 06:39] LABS: BASO % 0.5 % (0-2.0); EOS % 0.9 % (0-4.5); HEMATOCRIT 22.3 % (35.4-49); LYMPH % 14.3 % (8-40); MCH 26.6 pg (25.7-33.7); MCHC 31.3 g/dl (32.0-35.9); MEAN CELL VOLUME 84.8 fl (80-96); MEAN PLT VOLUME 7.5 fl (7.5-11.1); MONO % 8.1 % (3.8-10.2); NEUT % 76.2 % (42.8-82.8); PLATELET COUNT 161 K/MM3 (134-434); RBC 2.63 M/mm3 (4.00-5.60); RDW 17.8 % (11.9-15.9); WHITE BLOOD COUNT 6.3 K/mm3 (4.0-10.0)
[2017-11-07 06:40] LABS: INR 1.34 (0.82-1.09); PROTHROMBIN TIME (PATIENT) 15.1 SEC (9.7-13.0)
[2017-11-07 07:20] LABS: ALBUMIN 2.9 g/dl (3.4-5.0); ALK PHOS 83 U/L (45-117); ANION GAP 7 (8-16); BILIRUBIN,TOTAL 0.9 mg/dL (0.2-1.0); BLOOD UREA NITROGEN 35 mg/dL (7-18); CALCIUM 7.8 mg/dL (8.5-10.1); CHLORIDE 103 mmol/L (98-107); CO2 32 mmol/L (21-32); CREATININE 1.7 mg/dL (0.7-1.3); GLUCOSE,RANDOM 71 mg/dL (74-106); POTASSIUM 3.7 mmol/L (3.5-5.1); SGOT/AST 14 U/L (15-37); SGPT/ALT 7 U/L (12-78); SODIUM 142 mmol/L (136-145); TOT PROT 6.5 g/dl (6.4-8.2)
[2017-11-07 08:12] LABS: SERUM IRON SATURATION 18 % (15-55); TOTAL IRON BINDING CAPACITY 256 ug/dL (250-450); UIBC 209 ug/dL (111-343)
[2017-11-07] MEDS: TAMSULOSIN HCL 0.4 MG CAP.ER.24H (FP) PO SCH (08:30)
[2017-11-07] MEDS ORDERED: PT OWN MED DRAWER 7, Y5N ONE ×2 (09:56→10:26)
[2017-11-07] MEDS: FUROSEMIDE 40 MG/4 ML INJECTABLE VIAL IVPUSH SCH (10:17)
[2017-11-07] MEDS: levETIRAcetam 500 MG/5 ML INJECTION VIAL IVPB SCH ×2 (10:17→21:22)
[2017-11-07] MEDS: LISINOPRIL 20 MG TABLET (FP) PO SCH ×3 (10:17→16:49)
[2017-11-07 11:05] LABS: PLATELET ESTIMATE NORMAL; TEAR DROP CELLS 1+
--- NOTE | 2017-11-07 11:10 | PN ---
Progress Note (short form) - Note Progress Note: CC: seizure S: no cp, palps, sob, dizziness. cards: Dr. Beckman? Current Medications Generic Name Dose Route Start Last Admin Trade Name Kelly PRN Reason Stop Dose Admin Febuxostat 80 mg 11/05/17 10:00 11/06/17 09:23 Uloric - PO 80 mg DAILY MICHAEL Administration Furosemide 40 mg 11/06/17 11:00 11/07/17 10:17 Lasix Injection - IVPUSH 40 mg DAILY MICHAEL Administration Levetiracetam 500 mg 11/05/17 22:00 11/07/17 10:17 Keppra Injection - IVPB 500 mg BID MICHAEL Administration Lisinopril 40 mg 11/05/17 10:00 11/07/17 10:17 Prinivil PO 40 mg DAILY MICHAEL Administration Pantoprazole Sodium 20 mg 11/05/17 10:00 11/06/17 09:19 Protonix - PO 20 mg DAILY MICHAEL Administration Rosuvastatin Calcium 10 mg 11/06/17 22:00 11/06/17 21:50 Crestor - PO 10 mg HS MICHAEL Administration Tamsulosin HCl 0.4 mg 11/05/17 08:30 11/07/17 08:30 Flomax - PO Not Given DAILY@0830 [facility] Vital Signs Period Temp Pulse Resp BP Sys/Hair Pulse Ox Last 24 Hr 97.5 F-98.6 F 58-82 15-21 147-158/67-92 98-99 nad, calm jvd at clavicle, neck supple bibasilar rales, nl effort rrr nl s1, s2 2/6 sys murmur at apex. + bs soft nt nd, no hsm no le edema alert and oriented no jaundice, diaphoresis CBC, BMP 11/07/17 05:00 11/07/17 05:00 ekg: afib, svr (52 bpm). no acute ischemic changes. tele: afib, rate ok head ct: no acute pathology cxr: bibasilar atelectasis, can't exclude early infiltrate. by my review ? congestion (fluid in fissure). echo 10/2017: nl lv size/fn. 1+ rve. nl rv fn. mod brie. mild-mod ar/mr. mod- sev tr. head ct: no acute pathology. 07/20/15 Cardiac [place] [facility] [place] Right-Sided Pressures are Increased, Mild Pulmonary Hypertension (pa mean 30), PCW/LVEDP is increased- 18 Coronary Anatomy : I Vessel CAD (RCA) LV Function/Aorta : Moderate systolic LV Dysfunction ~EF 35% Valves : 1. No Aortic stenosis 2. No Mitral stenosis 07/21/15 TTE with definity [facility] [place] normal left ventricular size. overall moderate decreased left ventricular systolic function (diffuse); ejection fraction = 43 % moderate concentric left ventricular hypertrophy abnormal left ventricular diastolic filling pattern [may be due to age or LVH] probable mild right ventricular dilatation. probable mild decreased right ventricular function mild to moderate mitral regurgitation mild tricuspid regurgitation mild pulmonary hypertension ascending aorta dilatation mibi 06/2015: lvef 33%, no defects but +tid c/w high risk study ASSESSMENT/PLAN 77yo with hx of cmpathy/systolic chf with severely reduced lvef, pafib, cad s/ p remote pci (2010 per pt), htn, hld, ckd (bline cr? ~ 1.8-2.0), possible hx of CVA? ( residual BL motor weakness), seizure who p/w seizure, ER course notable for hgb of 4.0. anemia - ongoing transfusions. tolerating, no developing signs of volume overload on daily iv lasix. - Patient endorses prior hx of GIB. States last bleed was 3 weeks ago --> was hospitalized and transfused. - GI following, plan for endoscopy. Patient high risk (but not prohibitive) for sabrina-operative CV events. However, currently optimized from CV perspective. No further testing needed prior to intervention. Seizure - known hx. neuro following - no bradyarrhythmias or ventricular arrhythmias noted thus far on tele monitoring Permanent Afib - on last discharge [place] [facility] [place] was d/c on eliquis and asa. AC not on recent med list --> per patient, was subsequently stopped due to hx of prior GIB. -con't to hold AC/anti-platelets in setting of profound anemia. anemia work up as above. - rate controlled/slow off av sravanthi blockade. Systolic HF - unknown of prior systolic dysfunction was 2/2 tachymyopathy or ischemic in nature. Repeat echo here shows normalization of cardiac function despite being off optimal HF regimen. - had previously been on coreg, but not on recent outpatient med list. would con't to hold in light of afib with slow ventricular rate. con't lisinopril. - Patient denies sx's of volume overload. Prior d/c weight from 2016 was 213 lbs. Cxr by my review with ? congestion. s/p lasix 40 mg IV x 1 on 11/04 and --> Cr stable today, con't daily iv lasix. - daily weights, i/o's. bmp. CAD hx prior PCI s/p (+) MPI at OSH. (no recent interventions) - S/p Cardiac cath 07/20/15 with Non Obstructive CAD. - off anti-platelets 2/2 prior hx of GIB. here with profound anemia, con't to hold. - statin not listed on outpatient med list. previously on crestor 10 mg/day, resumed here. htn - bp overall reasonably controlled on current regimen, con't
--- NOTE | 2017-11-07 11:20 | PN ---
Progress Note, Physician Chief Complaint: AWAKE ALERT AGITATED DENIES CHEST PAIN OR SOB - Current Medication List Current Medications: Active Medications Febuxostat (Uloric -) 80 mg PO DAILY [facility] Last Admin: 11/06/17 09:23 Dose: 80 mg Furosemide (Lasix Injection -) 40 mg IVPUSH DAILY [facility] Last Admin: 11/07/17 10:17 Dose: 40 mg Levetiracetam (Keppra Injection -) 500 mg IVPB BID [facility] Last Admin: 11/07/17 10:17 Dose: 500 mg Lisinopril (Prinivil) 40 mg PO DAILY [facility] Last Admin: 11/07/17 10:17 Dose: 40 mg Pantoprazole Sodium (Protonix -) 20 mg PO DAILY [facility] Last Admin: 11/06/17 09:19 Dose: 20 mg Rosuvastatin Calcium (Crestor -) 10 mg PO HS [facility] Last Admin: 11/06/17 21:50 Dose: 10 mg Tamsulosin HCl (Flomax -) 0.4 mg PO DAILY@0830 [facility] Last Admin: 11/07/17 08:30 Dose: Not Given - Objective Vital Signs: Vital Signs Temperature 97.8 F 11/07/17 02:00 Pulse Rate 72 11/07/17 10:00 Respiratory Rate 21 11/07/17 10:00 Blood Pressure 162/78 11/07/17 10:00 O2 Sat by Pulse Oximetry (%) 98 11/07/17 10:00 Constitutional: Yes: Mild Distress Eyes: Yes: WNL HENT: Yes: WNL Neck: Yes: WNL Cardiovascular: Yes: WNL Respiratory: Yes: On Nasal O2 Gastrointestinal: Yes: Tenderness Genitourinary: Yes: Other Musculoskeletal: Yes: Muscle Weakness Edema: Yes Edema: LLE: 1+, RLE: 1+ Peripheral Pulses WNL: Yes Integumentary: Yes: WNL Wound/Incision: Yes: Clean/Dry Neurological: Yes: Pre-Existing Deficit ...Motor Strength: LLE, RLE Psychiatric: Yes: Other Labs: CBC, BMP 11/07/17 05:00 11/07/17 05:00 INR, PTT INR 1.34 (0.82-1.09) H 11/07/17 05:00 Problem List - Problems (1) Anemia requiring transfusions Code(s): D64.9 - ANEMIA, UNSPECIFIED (2) CHF (congestive heart failure) Code(s): I50.9 - HEART FAILURE, UNSPECIFIED (3) ARF (acute renal failure) Code(s): N17.9 - ACUTE KIDNEY FAILURE, UNSPECIFIED (4) Afib Code(s): I48.91 - UNSPECIFIED ATRIAL FIBRILLATION Qualifiers: Atrial fibrillation type: paroxysmal Qualified Code(s): I48.0 - Paroxysmal atrial fibrillation (5) Cardiomyopathy Code(s): I42.9 - CARDIOMYOPATHY, UNSPECIFIED (6) Diabetes mellitus Code(s): E11.9 - TYPE 2 DIABETES MELLITUS WITHOUT COMPLICATIONS Assessment/Plan TRANSFUSIONS NEEDED GI WORKUP IN PROGRESS EGD/COLONOSCOPY PER GI DVT PROPHYLAXIS ICU MONITORING FOR HEMODYNAMIC INSTABILITY WHICH IS NOW IMPROVED
[2017-11-07] MEDS: PANTOPRAZOLE 20 MG TABLET (FP) PO SCH (13:50)
[2017-11-07] MEDS: FEBUXOSTAT 80 MG TAB PO SCH ×2 (13:50→16:50)
[2017-11-07] MEDS ORDERED: SIMETHICONE 40 MG/0.6 ML BOTTLE ONE (16:02)
--- NOTE | 2017-11-07 16:18 | PROC ---
Endoscopy Procedure Endoscopy procedure completed. Please see scanned procedure report. Normal EGD Normal anastomotsis in right colon, normal terminal ileum Resume previous diet Hematology Stool for hemoccult Haptoglobin
[2017-11-07] MEDS: ROSUVASTATIN CA 10 MG TABLET (FP) PO SCH (21:22)
[2017-11-08 07:02] LABS: HEMATOCRIT 22.7 % (35.4-49); HEMOGLOBIN 7.2 GM/dL (11.7-16.9); MCH 26.9 pg (25.7-33.7); MCHC 31.6 g/dl (32.0-35.9); MEAN CELL VOLUME 85.2 fl (80-96); MEAN PLT VOLUME 7.3 fl (7.5-11.1); PLATELET COUNT 151 K/MM3 (134-434); RBC 2.66 M/mm3 (4.00-5.60); RDW 18.8 % (11.9-15.9); WHITE BLOOD COUNT 7.6 K/mm3 (4.0-10.0)
[2017-11-08 07:16] LABS: CHLORIDE 104 mmol/L (98-107); POTASSIUM 3.8 mmol/L (3.5-5.1); SODIUM 145 mmol/L (136-145)
[2017-11-08 07:26] LABS: ALBUMIN 2.9 g/dl (3.4-5.0); ANION GAP 6 (8-16); BILIRUBIN,TOTAL 0.9 mg/dL (0.2-1.0); BLOOD UREA NITROGEN 33 mg/dL (7-18); CO2 35 mmol/L (21-32); CREATININE 1.7 mg/dL (0.7-1.3); GLUCOSE,RANDOM 79 mg/dL (74-106); SGOT/AST 17 U/L (15-37); SGPT/ALT 7 U/L (12-78); TOT PROT 6.6 g/dl (6.4-8.2)
--- NOTE | 2017-11-08 07:49 | PN ---
Progress Note, Physician History of Present Illness: 77yM with PMH DM, HTN, CAD, CHF/LV systolic dysfunction, PAfib, pulmonary HTN, CVA presented to the ED with seizure like activity. - Current Medication List Current Medications: Active Medications Febuxostat (Uloric -) 80 mg PO DAILY [facility] Last Admin: 11/07/17 16:50 Dose: 80 mg Furosemide (Lasix Injection -) 40 mg IVPUSH DAILY [facility] Last Admin: 11/07/17 10:17 Dose: 40 mg Levetiracetam (Keppra Injection -) 500 mg IVPB BID [facility] Last Admin: 11/07/17 21:22 Dose: 500 mg Lisinopril (Prinivil) 40 mg PO DAILY [facility] Last Admin: 11/07/17 16:49 Dose: 40 mg Pantoprazole Sodium (Protonix -) 20 mg PO DAILY [facility] Last Admin: 11/07/17 13:50 Dose: Not Given Rosuvastatin Calcium (Crestor -) 10 mg PO HS [facility] Last Admin: 11/07/17 21:22 Dose: 10 mg Tamsulosin HCl (Flomax -) 0.4 mg PO DAILY@0830 [facility] Last Admin: 11/07/17 08:30 Dose: Not Given - Objective Vital Signs: Vital Signs Temperature 97.2 F L 11/08/17 02:00 Pulse Rate 76 11/08/17 02:00 Respiratory Rate 23 11/08/17 02:00 Blood Pressure 175/87 11/08/17 02:00 O2 Sat by Pulse Oximetry (%) 98 11/07/17 10:00 Cardiovascular: Yes: Pulse Irregular, S1, S2 Respiratory: Yes: Regular, CTA Bilaterally Gastrointestinal: Yes: Normal Bowel Sounds, Soft Labs: CBC, BMP 11/08/17 05:15 11/08/17 05:15 INR, PTT INR 1.34 (0.82-1.09) H 11/07/17 05:00 Problem List - Problems (1) Anemia requiring transfusions Assessment/Plan: -Severe anemia - 2uPRBC--follow up cbc - unclear etiology. Stool occ negative - elevated RDW points to blood loss - stool occ blood x 2 more ordered - No IVF, receiving blood presently - GI consult Endoscopy Procedure Endoscopy procedure completed. Please see scanned procedure report. Normal EGD Normal anastomotsis in right colon, normal terminal ileum Resume previous diet Hematology Stool for hemoccult Haptoglobin Code(s): D64.9 - ANEMIA, UNSPECIFIED (2) CHF (congestive heart failure) Assessment/Plan: -CHF exac - lasix 40mg given - will need to assess between units of blood if needs additional 40mg - echo ordered -cardio Code(s): I50.9 - HEART FAILURE, UNSPECIFIED (3) Afib Assessment/Plan: -not on Ac -cardio noted Code(s): I48.91 - UNSPECIFIED ATRIAL FIBRILLATION Qualifiers: Atrial fibrillation type: paroxysmal Qualified Code(s): I48.0 - Paroxysmal atrial fibrillation (4) CAD (coronary artery disease) Assessment/Plan: -monitor Code(s): I25.10 - ATHSCL HEART DISEASE OF [place] CORONARY ARTERY W/O ANG PCTRS (5) Seizure disorder Assessment/Plan: - pt previously on keppra at home, unclear why DC - start keppra 500mg IV x 1 - neurology consult-pt does not know if he sees a neurologist as an outpatient Code(s): G40.909 - EPILEPSY, UNSP, NOT INTRACTABLE, WITHOUT STATUS EPILEPTICUS
[2017-11-08 09:01] LABS: ALK PHOS 84 U/L (45-117)
[2017-11-08] MEDS: TAMSULOSIN HCL 0.4 MG CAP.ER.24H (FP) PO SCH (09:27)
[2017-11-08] MEDS: levETIRAcetam 500 MG/5 ML INJECTION VIAL IVPB SCH ×2 (09:27→22:00)
[2017-11-08] MEDS: LISINOPRIL 20 MG TABLET (FP) PO SCH (09:28)
[2017-11-08] MEDS: FUROSEMIDE 40 MG/4 ML INJECTABLE VIAL IVPUSH SCH (09:28)
[2017-11-08] MEDS: PANTOPRAZOLE 20 MG TABLET (FP) PO SCH (09:29)
[2017-11-08] MEDS ORDERED: PT OWN MED DRAWER 7, Y5N ONE ×3 (09:34→21:46)
[2017-11-08] MEDS: FEBUXOSTAT 80 MG TAB PO SCH (09:36)
--- NOTE | 2017-11-08 11:23 | PN ---
Progress Note (short form) - Note Progress Note: CC: seizure S: no cp, palps, sob, dizziness. cards: Dr. Beckman? Current Medications Generic Name Dose Route Start Last Admin Trade Name Kelly PRN Reason Stop Dose Admin Febuxostat 80 mg 11/05/17 10:00 11/08/17 09:36 Uloric - PO 80 mg DAILY MICHAEL Administration Furosemide 40 mg 11/06/17 11:00 11/08/17 09:28 Lasix Injection - IVPUSH 40 mg DAILY MICHAEL Administration Furosemide 40 mg 11/08/17 14:00 Lasix Injection - IVPUSH 11/08/17 14:01 ONCE ONE Levetiracetam 500 mg 11/05/17 22:00 11/08/17 09:27 Keppra Injection - IVPB 500 mg BID MICHAEL Administration Lisinopril 40 mg 11/05/17 10:00 11/08/17 09:28 Prinivil PO 40 mg DAILY MICHAEL Administration Pantoprazole Sodium 20 mg 11/05/17 10:00 11/08/17 09:29 Protonix - PO 20 mg DAILY MICHAEL Administration Rosuvastatin Calcium 10 mg 11/06/17 22:00 11/07/17 21:22 Crestor - PO 10 mg HS MICHAEL Administration Tamsulosin HCl 0.4 mg 11/05/17 08:30 11/08/17 09:27 Flomax - PO 0.4 mg DAILY@0830 MICHAEL Administration Vital Signs Period Temp Pulse Resp BP Sys/Hair Pulse Ox Last 24 Hr 97.2 F-97.5 F 76-84 19-23 175-183/85-87 nad, calm jvd at clavicle, neck supple bibasilar rales, nl effort rrr nl s1, s2 2/6 sys murmur at apex. + bs soft nt nd, no hsm no le edema alert and oriented no jaundice, diaphoresis CBC, BMP CBC, BMP 11/08/17 05:15 11/08/17 05:15 ekg: afib, svr (52 bpm). no acute ischemic changes. tele: afib, rate ok head ct: no acute pathology cxr: bibasilar atelectasis, can't exclude early infiltrate. by my review ? congestion (fluid in fissure). echo 10/2017: nl lv size/fn. 1+ rve. nl rv fn. mod brie. mild-mod ar/mr. mod- sev tr. head ct: no acute pathology. 07/20/15 Cardiac cath [facility] [place] Right-Sided Pressures are Increased, Mild Pulmonary Hypertension (pa mean 30), PCW/LVEDP is increased- 18 Coronary Anatomy : I Vessel CAD (RCA) LV Function/Aorta : Moderate systolic LV Dysfunction ~EF 35% Valves : 1. No Aortic stenosis 2. No Mitral stenosis 07/21/15 TTE with definity [facility] [place]- normal left ventricular size. overall moderate decreased left ventricular systolic function (diffuse); ejection fraction = 43 % moderate concentric left ventricular hypertrophy abnormal left ventricular diastolic filling pattern [may be due to age or LVH] probable mild right ventricular dilatation. probable mild decreased right ventricular function mild to moderate mitral regurgitation mild tricuspid regurgitation mild pulmonary hypertension ascending aorta dilatation mibi 06/2015: lvef 33%, no defects but +tid c/w high risk study ASSESSMENT/PLAN 77yo with hx of cmpathy/systolic chf with severely reduced lvef, pafib, cad s/ p remote pci (2010 per pt), htn, hld, ckd (bline cr? ~ 1.8-2.0), possible hx of CVA? ( residual BL motor weakness), seizure who p/w seizure, ER course notable for hgb of 4.0. anemia - ongoing transfusions. tolerating, no developing signs of volume overload on daily iv lasix. - Patient endorses prior hx of GIB. States last bleed was 3 weeks ago --> was hospitalized and transfused. - scopes done 11/07, no etiology found Seizure - known hx. neuro following - no bradyarrhythmias or ventricular arrhythmias noted thus far on tele monitoring Permanent Afib - on last discharge from [facility] [place] in 2015 was d/c on eliquis and asa. AC not on recent med list --> per patient, was subsequently stopped due to hx of prior GIB. -con't to hold AC/anti-platelets in setting of profound anemia. anemia work up as above. - rate controlled/slow off av sravanthi blockade. Systolic HF - unknown of prior systolic dysfunction was 2/2 tachymyopathy or ischemic in nature. Repeat echo here shows normalization of cardiac function despite being off optimal HF regimen. - had previously been on coreg, but not on recent outpatient med list. would con't to hold in light of afib with slow ventricular rate. con't lisinopril. - Patient denies sx's of volume overload. Prior d/c weight from 2016 was 213 lbs. Cxr by my review with ? congestion. s/p lasix 40 mg IV x 1 on 11/04 and --> Cr stable today, con't daily iv lasix. - daily weights, i/o's. bmp. CAD hx prior PCI s/p (+) MPI at OSH. (no recent interventions) - S/p Cardiac cath 07/20/15 with Non Obstructive CAD. - off anti-platelets 2/2 prior hx of GIB. here with profound anemia, con't to hold. - statin not listed on outpatient med list. previously on crestor 10 mg/day, resumed here. htn - bp overall reasonably controlled on current regimen, con't
--- NOTE | 2017-11-08 12:39 | PATH ---
Surgical Pathology Report Patient Name: BONNIE SKY [facility]. Rec. #: [id number] /Age/Gender: 1940 (Age: 77) / M Account: [id number] Location: EMERGENCY ROOM Taken: 11/07/2017 Received: 11/07/2017 Reported: 11/08/2017 Physicians: Will Zamudio M.D. Specimen(s) Received A: BX SECOND PORTION DUODENUM B: BX ANTRUM AND BODY Clinical History Anemia Final Diagnosis A. DUODENUM, SECOND PORTION, BIOPSY: DUODENAL MUCOSA WITH MODERATE TO SEVERE ACUTE AND CHRONIC DUODENITIS. B. STOMACH, ANTRUM/BODY, BIOPSY: GASTRIC ANTRAL AND BODY MUCOSA WITH MILD CHRONIC GASTRITIS. IMMUNOHISTOCHEMICAL STAIN FOR H. PYLORI IS NEGATIVE. Electronically Signed Teresa Olivo M.D. Gross Description A. Received in formalin, labeled "biopsy second portion of duodenum" are 2 tesfaye, irregular portions of soft tissue measuring 0.3 and 0.6 cm. in greatest dimension. The specimens are submitted in toto in one cassette. B. Received in formalin, labeled "biopsy antrum/body" are 3 tesfaye, irregular portions of soft tissue ranging from 0.1-0.4 cm. in greatest dimension. The specimens are submitted in toto in one cassette. 11/08/2017 [facility]11/08/2017
[2017-11-08] MEDS ORDERED: FUROSEMIDE 40 MG/4 ML INJECTABLE VIAL IVPUSH ONE (14:00)
--- NOTE | 2017-11-08 14:15 | PN ---
Progress Note, Physician History of Present Illness: No acute events overnight. No melena, hematochezia, hematemesis. Awake, alert, oriented. Not in distress. Pathology revealed severe duodenitis. H. pylori, metaplasia negative gastritis - Current Medication List Current Medications: Active Medications Amlodipine Besylate (Norvasc -) 5 mg PO DAILY [facility] Febuxostat (Uloric -) 80 mg PO DAILY [facility] Last Admin: 11/08/17 09:36 Dose: 80 mg Furosemide (Lasix Injection -) 40 mg IVPUSH DAILY [facility] Last Admin: 11/08/17 09:28 Dose: 40 mg Levetiracetam (Keppra Injection -) 500 mg IVPB BID [facility] Last Admin: 11/08/17 09:27 Dose: 500 mg Lisinopril (Prinivil) 40 mg PO DAILY [facility] Last Admin: 11/08/17 09:28 Dose: 40 mg Pantoprazole Sodium (Protonix -) 20 mg PO DAILY [facility] Last Admin: 11/08/17 09:29 Dose: 20 mg Rosuvastatin Calcium (Crestor -) 10 mg PO HS [facility] Last Admin: 11/07/17 21:22 Dose: 10 mg Tamsulosin HCl (Flomax -) 0.4 mg PO DAILY@0830 [facility] Last Admin: 11/08/17 09:27 Dose: 0.4 mg - Objective Vital Signs: Vital Signs Temperature 98.4 F 11/08/17 14:00 Pulse Rate 74 11/08/17 14:00 Respiratory Rate 20 11/08/17 14:00 Blood Pressure 161/75 11/08/17 14:00 O2 Sat by Pulse Oximetry (%) 98 11/07/17 10:00 Constitutional: Yes: No Distress, Calm Gastrointestinal: Yes: Soft. No: Melena, Rectal Bleeding, Tenderness, Vomiting Labs: CBC, BMP 11/08/17 05:15 11/08/17 05:15 INR, PTT INR 1.34 (0.82-1.09) H 11/07/17 05:00 Problem List - Problems (1) Anemia requiring transfusions Code(s): D64.9 - ANEMIA, UNSPECIFIED (2) CHF (congestive heart failure) Code(s): I50.9 - HEART FAILURE, UNSPECIFIED (3) Gastritis Code(s): K29.70 - GASTRITIS, UNSPECIFIED, WITHOUT BLEEDING (4) Acute duodenitis Code(s): K29.80 - DUODENITIS WITHOUT BLEEDING Assessment/Plan No stigmata of recent, or ongoing gastrointestinal blood loss. Continue PPI. Avoid NSAIDs. Advance diet as tolerated.
[2017-11-08] MEDS: amLODIPine BESYLATE 5 MG TABLET (FP) PO SCH (14:30)
[2017-11-09] MEDS: ROSUVASTATIN CA 10 MG TABLET (FP) PO SCH ×2 (01:35→22:31)
[2017-11-09 06:11] LABS: BASO % 0.4 % (0-2.0); EOS % 1.3 % (0-4.5); HEMOGLOBIN 8.6 GM/dL (11.7-16.9); LYMPH % 15.7 % (8-40); MCH 27.1 pg (25.7-33.7); MCHC 31.8 g/dl (32.0-35.9); MEAN CELL VOLUME 85.2 fl (80-96); MEAN PLT VOLUME 6.9 fl (7.5-11.1); MONO % 11.2 % (3.8-10.2); NEUT % 71.4 % (42.8-82.8); PLATELET COUNT 115 K/MM3 (134-434); RBC 3.17 M/mm3 (4.00-5.60); WHITE BLOOD COUNT 6.8 K/mm3 (4.0-10.0)
[2017-11-09 06:36] LABS: ALBUMIN 2.9 g/dl (3.4-5.0); ALK PHOS 81 U/L (45-117); ANION GAP 5 (8-16); BLOOD UREA NITROGEN 31 mg/dL (7-18); CALCIUM 7.8 mg/dL (8.5-10.1); CHLORIDE 101 mmol/L (98-107); CO2 38 mmol/L (21-32); CREATININE 1.6 mg/dL (0.7-1.3); GLUCOSE,RANDOM 103 mg/dL (74-106); POTASSIUM 3.6 mmol/L (3.5-5.1); SGOT/AST 15 U/L (15-37); SGPT/ALT 7 U/L (12-78); SODIUM 144 mmol/L (136-145); TOT PROT 6.7 g/dl (6.4-8.2)
--- NOTE | 2017-11-09 08:11 | PN ---
Progress Note, Physician History of Present Illness: 77yM with PMH DM, HTN, CAD, CHF/LV systolic dysfunction, PAfib, pulmonary HTN, CVA presented to the ED with seizure like activity. - Current Medication List Current Medications: Active Medications Amlodipine Besylate (Norvasc -) 5 mg PO DAILY [facility] Last Admin: 11/08/17 14:30 Dose: 5 mg Febuxostat (Uloric -) 80 mg PO DAILY [facility] Last Admin: 11/08/17 09:36 Dose: 80 mg Furosemide (Lasix Injection -) 40 mg IVPUSH DAILY [facility] Last Admin: 11/08/17 09:28 Dose: 40 mg Levetiracetam (Keppra Injection -) 500 mg IVPB BID [facility] Last Admin: 11/08/17 22:00 Dose: 500 mg Lisinopril (Prinivil) 40 mg PO DAILY [facility] Last Admin: 11/08/17 09:28 Dose: 40 mg Pantoprazole Sodium (Protonix -) 20 mg PO DAILY [facility] Last Admin: 11/08/17 09:29 Dose: 20 mg Rosuvastatin Calcium (Crestor -) 10 mg PO HS [facility] Last Admin: 11/09/17 01:35 Dose: 10 mg Tamsulosin HCl (Flomax -) 0.4 mg PO DAILY@0830 [facility] Last Admin: 11/08/17 09:27 Dose: 0.4 mg - Objective Vital Signs: Vital Signs Temperature -97.8 F L 11/09/17 06:01 Pulse Rate 65 11/09/17 06:01 Respiratory Rate 18 11/09/17 06:01 Blood Pressure 152/69 11/09/17 06:01 O2 Sat by Pulse Oximetry (%) 98 11/07/17 10:00 Cardiovascular: Yes: S1, S2 Respiratory: Yes: Regular, CTA Bilaterally Gastrointestinal: Yes: Normal Bowel Sounds, Soft Labs: CBC, BMP 11/09/17 05:55 11/09/17 05:55 INR, PTT INR 1.34 (0.82-1.09) H 11/07/17 05:00 Problem List - Problems (1) Anemia requiring transfusions Assessment/Plan: -Severe anemia - 2uPRBC yesterday--follow up cbc-8.6 - egd doudenitis - Hematology consult Endoscopy Procedure- GI consult Endoscopy procedure completed. Please see scanned procedure report. Normal EGD Normal anastomotsis in right colon, normal terminal ileum Resume previous diet Hematology Stool for hemoccult Haptoglobin Code(s): D64.9 - ANEMIA, UNSPECIFIED (2) CHF (congestive heart failure) Assessment/Plan: -CHF exac - lasix 40mg given - will need to assess between units of blood if needs additional 40mg - echo ordered -cardio Code(s): I50.9 - HEART FAILURE, UNSPECIFIED (3) Afib Assessment/Plan: -not on Ac due to gi bleed -cardio consult noted Code(s): I48.91 - UNSPECIFIED ATRIAL FIBRILLATION Qualifiers: Atrial fibrillation type: paroxysmal Qualified Code(s): I48.0 - Paroxysmal atrial fibrillation (4) CAD (coronary artery disease) Assessment/Plan: -monitor Code(s): I25.10 - ATHSCL HEART DISEASE OF [place] CORONARY ARTERY W/O ANG PCTRS (5) Seizure disorder Assessment/Plan: - pt previously on keppra at home, unclear why DC - start keppra 500mg IV x 1 - neurology consult-pt does not know if he sees a neurologist as an outpatient Code(s): G40.909 - EPILEPSY, UNSP, NOT INTRACTABLE, WITHOUT STATUS EPILEPTICUS Assessment/Plan Physical therapy--would benefit from pt--refusing
[2017-11-09] MEDS: levETIRAcetam 500 MG/5 ML INJECTION VIAL IVPB SCH ×2 (09:20→22:31)
[2017-11-09] MEDS: TAMSULOSIN HCL 0.4 MG CAP.ER.24H (FP) PO SCH (09:20)
[2017-11-09] MEDS: PANTOPRAZOLE 20 MG TABLET (FP) PO SCH (09:21)
[2017-11-09] MEDS: LISINOPRIL 20 MG TABLET (FP) PO SCH (09:21)
[2017-11-09] MEDS: amLODIPine BESYLATE 5 MG TABLET (FP) PO SCH (09:22)
[2017-11-09] MEDS: FEBUXOSTAT 80 MG TAB PO SCH (09:22)
[2017-11-09] MEDS: FUROSEMIDE 40 MG/4 ML INJECTABLE VIAL IVPUSH SCH (09:22)
--- NOTE | 2017-11-09 10:55 | PN ---
Progress Note, Physician History of Present Illness: No acute events overnight. No melena, hematochezia, hematemesis. Awake, alert, oriented. Not in distress. - Current Medication List Current Medications: Active Medications Amlodipine Besylate (Norvasc -) 5 mg PO DAILY [facility] Last Admin: 11/09/17 09:22 Dose: 5 mg Febuxostat (Uloric -) 80 mg PO DAILY [facility] Last Admin: 11/09/17 09:22 Dose: 80 mg Furosemide (Lasix Injection -) 40 mg IVPUSH DAILY [facility] Last Admin: 11/09/17 09:22 Dose: 40 mg Levetiracetam (Keppra Injection -) 500 mg IVPB BID [facility] Last Admin: 11/09/17 09:20 Dose: 500 mg Lisinopril (Prinivil) 40 mg PO DAILY [facility] Last Admin: 11/09/17 09:21 Dose: 40 mg Pantoprazole Sodium (Protonix -) 20 mg PO DAILY [facility] Last Admin: 11/09/17 09:21 Dose: 20 mg Rosuvastatin Calcium (Crestor -) 10 mg PO HS [facility] Last Admin: 11/09/17 01:35 Dose: 10 mg Tamsulosin HCl (Flomax -) 0.4 mg PO DAILY@0830 [facility] Last Admin: 11/09/17 09:20 Dose: 0.4 mg - Objective Vital Signs: Vital Signs Temperature -97.8 F L 11/09/17 06:01 Pulse Rate 65 11/09/17 06:01 Respiratory Rate 18 11/09/17 06:01 Blood Pressure 152/69 11/09/17 06:01 O2 Sat by Pulse Oximetry (%) 98 11/07/17 10:00 Constitutional: Yes: No Distress, Calm Gastrointestinal: Yes: Normal Bowel Sounds, Soft. No: Distention, Tenderness, Vomiting Labs: CBC, BMP 11/09/17 05:55 11/09/17 05:55 INR, PTT INR 1.34 (0.82-1.09) H 11/07/17 05:00 Laboratory Last Values WBC 6.8 K/mm3 (4.0-10.0) 11/09/17 05:55 RBC 3.17 M/mm3 (4.00-5.60) L 11/09/17 05:55 Hgb 8.6 GM/dL (11.7-16.9) L D 11/09/17 05:55 Hct 27.0 % (35.4-49) L D 11/09/17 05:55 MCV 85.2 fl (80-96) 11/09/17 05:55 MCH 27.1 pg (25.7-33.7) 11/09/17 05:55 MCHC 31.8 g/dl (32.0-35.9) L 11/09/17 05:55 RDW 18.0 % (11.9-15.9) H 11/09/17 05:55 Plt Count 115 K/MM3 (134-434) L D 11/09/17 05:55 MPV 6.9 fl (7.5-11.1) L 11/09/17 05:55 Neutrophils % 71.4 % (42.8-82.8) 11/09/17 05:55 Lymphocytes % 15.7 % (8-40) 11/09/17 05:55 Monocytes % 11.2 % (3.8-10.2) H 11/09/17 05:55 Eosinophils % 1.3 % (0-4.5) 11/09/17 05:55 Basophils % 0.4 % (0-2.0) 11/09/17 05:55 Nucleated RBC % 0 % (0-0) 11/09/17 05:55 Hypochromia 3+ 11/04/17 22:22 Platelet Estimate Normal 11/07/17 05:00 Polychromasia 1+ 11/04/17 22:22 Anisocytosis 1+ 11/04/17 22:22 Microcytosis 1+ 11/07/17 05:00 Tear Drop Cells 1+ 11/07/17 05:00 Ovalocytes 1+ 11/04/17 22:22 Acanthocytes (Spur) 1+ 11/04/17 22:22 Schistocytes 1+ 11/07/17 05:00 Haptoglobin 110 mg/dL (34-200) 11/06/17 06:35 PT with INR 15.10 SEC (9.7-13.0) H 11/07/17 05:00 INR 1.34 (0.82-1.09) H 11/07/17 05:00 Sodium 144 mmol/L (136-145) 11/09/17 05:55 Potassium 3.6 mmol/L (3.5-5.1) 11/09/17 05:55 Chloride 101 mmol/L (98-107) 11/09/17 05:55 Carbon Dioxide 38 mmol/L (21-32) H 11/09/17 05:55 Anion Gap 5 (8-16) L 11/09/17 05:55 BUN 31 mg/dL (7-18) H 11/09/17 05:55 Creatinine 1.6 mg/dL (0.7-1.3) H 11/09/17 05:55 Creat Clearance w eGFR 41.90 (>60) 11/09/17 05:55 Random Glucose 103 mg/dL (74-106) D 11/09/17 05:55 Calcium 7.8 mg/dL (8.5-10.1) L 11/09/17 05:55 Phosphorus 5.3 mg/dL (2.5-4.9) H D 11/05/17 10:23 Magnesium 2.0 mg/dL (1.8-2.4) 11/05/17 10:23 Iron 47 ug/dL (38-169) 11/06/17 06:35 TIBC 256 ug/dL (250-450) 11/06/17 06:35 Iron Saturation 18 % (15-55) 11/06/17 06:35 Ferritin 86.234 ng/ml (16.4-293.9) 11/06/17 06:35 Total Bilirubin 1.0 mg/dL (0.2-1.0) 11/09/17 05:55 AST 15 U/L (15-37) 11/09/17 05:55 ALT 7 U/L (12-78) L 11/09/17 05:55 Alkaline Phosphatase 81 U/L (45-117) 11/09/17 05:55 Creatine Kinase 62 IU/L (39-308) 11/07/17 06:00 Troponin I 0.02 ng/ml (0.00-0.05) D 11/04/17 22:22 B-Natriuretic Peptide 16310.20 pg/ml (5-450) H 11/04/17 22:22 Total Protein 6.7 g/dl (6.4-8.2) 11/09/17 05:55 Albumin 2.9 g/dl (3.4-5.0) L 11/09/17 05:55 Vitamin B12 1388 pg/ml (180-914) H 11/07/17 06:00 TSH 7.16 uIU/ml (0.358-3.74) H 11/07/17 05:00 Urine Color Ltyellow 11/04/17 23:17 Urine Appearance Clear 11/04/17 23:17 Urine pH 5.0 (5.0-8.0) 11/04/17 23:17 Ur Specific Tripp 1.013 (1.001-1.035) 11/04/17 23:17 Urine Protein 1+ (NEGATIVE) H 11/04/17 23:17 Urine Glucose (UA) Negative (NEGATIVE) 11/04/17 23:17 Urine Ketones Negative (NEGATIVE) 11/04/17 23:17 Urine Blood Negative (NEGATIVE) 11/04/17 23:17 Urine Nitrite Negative (NEGATIVE) 11/04/17 23:17 Urine Bilirubin Negative (<2.0 mg/dL) 11/04/17 23:17 Urine Urobilinogen Negative mg/dL (0.2-1.0) 11/04/17 23:17 Ur Leukocyte Esterase Negative (NEGATIVE) 11/04/17 23:17 Urine WBC (Auto) 1 /hpf (3-5) 11/04/17 23:17 Urine RBC (Auto) <1 /hpf (0-3) 11/04/17 23:17 Ur Epithelial Cells Rare /HPF (FEW) 11/04/17 23:17 Stool Occult Blood Negative (NEGATIVE) 11/04/17 22:56 Anti-A Titer Cancelled 11/04/17 22:22 Blood Type B POSITIVE 11/08/17 09:00 Antibody Screen Negative 11/08/17 09:00 Crossmatch See Detail 11/08/17 09:00 Problem List - Problems (1) Anemia requiring transfusions Code(s): D64.9 - ANEMIA, UNSPECIFIED (2) CHF (congestive heart failure) Code(s): I50.9 - HEART FAILURE, UNSPECIFIED (3) Gastritis Code(s): K29.70 - GASTRITIS, UNSPECIFIED, WITHOUT BLEEDING (4) Acute duodenitis Code(s): K29.80 - DUODENITIS WITHOUT BLEEDING Assessment/Plan Continue current care. Diet as tolerated.
--- NOTE | 2017-11-09 11:18 | PN ---
Progress Note (short form) - Note Progress Note: CC: seizure S: no cp, palps, sob, dizziness. cards: Dr. Beckman? Current Medications Generic Name Dose Route Start Last Admin Trade Name Kelly PRN Reason Stop Dose Admin Amlodipine Besylate 5 mg 11/08/17 13:15 11/09/17 09:22 Norvasc - PO 5 mg DAILY MICHAEL Administration Febuxostat 80 mg 11/05/17 10:00 11/09/17 09:22 Uloric - PO 80 mg DAILY MICHAEL Administration Furosemide 40 mg 11/06/17 11:00 11/09/17 09:22 Lasix Injection - IVPUSH 40 mg DAILY MICHAEL Administration Levetiracetam 500 mg 11/05/17 22:00 11/09/17 09:20 Keppra Injection - IVPB 500 mg BID MICHAEL Administration Lisinopril 40 mg 11/05/17 10:00 11/09/17 09:21 Prinivil PO 40 mg DAILY [facility]HAEL Administration Pantoprazole Sodium 20 mg 11/05/17 10:00 11/09/17 09:21 Protonix - PO 20 mg DAILY [facility]EL Administration Rosuvastatin Calcium 10 mg 11/06/17 22:00 11/09/17 01:35 Crestor - PO 10 mg HS MICHAEL Administration Tamsulosin HCl 0.4 mg 11/05/17 08:30 11/09/17 09:20 Flomax - PO 0.4 mg DAILY@0830 [facility]EL Administration Vital Signs Period Temp Pulse Resp BP Sys/Hair Pulse Ox Last 24 Hr -97.8 F-98.6 F 65-77 18-20 148-167/68-81 nad, calm jvd at clavicle, neck supple bibasilar rales, nl effort rrr nl s1, s2 2/6 sys murmur at apex. + bs soft nt nd, no hsm no le edema alert and oriented no jaundice, diaphoresis CBC, BMP CBC, BMP 11/09/17 05:55 11/09/17 05:55 ekg: afib, svr (52 bpm). no acute ischemic changes. tele: afib, rate ok head ct: no acute pathology cxr: bibasilar atelectasis, can't exclude early infiltrate. by my review ? congestion (fluid in fissure). echo 10/2017: nl lv size/fn. 1+ rve. nl rv fn. mod brie. mild-mod ar/mr. mod- sev tr. head ct: no acute pathology. 07/20/15 Cardiac cath [facility]- Right-Sided Pressures are Increased, Mild Pulmonary Hypertension (pa mean 30), PCW/LVEDP is increased- 18 Coronary Anatomy : I Vessel CAD (RCA) LV Function/Aorta : Moderate systolic LV Dysfunction ~EF 35% Valves : 1. No Aortic stenosis 2. No Mitral stenosis 07/21/15 TTE with definity [facility]- normal left ventricular size. overall moderate decreased left ventricular systolic function (diffuse); ejection fraction = 43 % moderate concentric left ventricular hypertrophy abnormal left ventricular diastolic filling pattern [may be due to age or LVH] probable mild right ventricular dilatation. probable mild decreased right ventricular function mild to moderate mitral regurgitation mild tricuspid regurgitation mild pulmonary hypertension ascending aorta dilatation mibi 06/2015: lvef 33%, no defects but +tid c/w high risk study ASSESSMENT/PLAN 77yo with hx of cmpathy/systolic chf with severely reduced lvef, pafib, cad s/ p remote pci (2010 per pt), htn, hld, ckd (bline cr? ~ 1.8-2.0), possible hx of CVA? ( residual BL motor weakness), seizure who p/w seizure, ER course notable for hgb of 4.0. anemia - ongoing transfusions. tolerating, no developing signs of volume overload on daily iv lasix. - Patient endorses prior hx of GIB. States last bleed was 3 weeks ago --> was hospitalized and transfused. - scopes done 11/07, no etiology found Seizure - known hx. neuro following - no bradyarrhythmias or ventricular arrhythmias noted thus far on tele monitoring Permanent Afib - on last discharge from [facility] in 2015 was d/c on eliquis and asa. AC not on recent med list --> per patient, was subsequently stopped due to hx of prior GIB. -con't to hold AC/anti-platelets in setting of profound anemia. anemia work up as above. - rate controlled/slow off av sravanthi blockade. Systolic HF - unknown of prior systolic dysfunction was 2/2 tachymyopathy or ischemic in nature. Repeat echo here shows normalization of cardiac function despite being off optimal HF regimen. - had previously been on coreg, but not on recent outpatient med list. would con't to hold in light of afib with slow ventricular rate. con't lisinopril. - Patient denies sx's of volume overload. Prior d/c weight from 2016 was 213 lbs. Cxr by my review with ? congestion. s/p lasix 40 mg IV qd on 11/04-11/09-> Cr stable. Will change to po lasix now. CAD hx prior PCI s/p (+) MPI at OSH. (no recent interventions) - S/p Cardiac cath 07/20/15 with Non Obstructive CAD. - off anti-platelets 2/2 prior hx of GIB. here with profound anemia, con't to hold. - statin not listed on outpatient med list. previously on crestor 10 mg/day, resumed here. htn - norvasc added 11/08 for better bp control. cont current meds, monitor.
--- NOTE | 2017-11-09 16:25 | CONSULT ---
Consult Consult Specialty:: Hematology - History of Present Illness History of Present Illness: PMH DM, HTN, CAD, CHF/LV systolic dysfunction, PAfib, pulmonary HTN, CVA presented to the ED with seizure like activity. He has Hgb in 7s while in here.received PRBCs. Chart reviewed in detail Pt seen and examined. 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) History of Recent Travel: No Home Medications - Allergies Allergies/Adverse Reactions: Allergies Allergy/AdvReac Type Severity Reaction Status Date / Time No Known Allergies Allergy Verified 11/04/17 21:06 - Home Medications Home Medications: Ambulatory Orders Tamsulosin HCl [Flomax -] 0.4 mg PO DAILY 11/20/13 Furosemide 40 mg PO DAILY 07/07/15 Febuxostat [Uloric -] 80 mg PO DAILY 11/05/17 Lisinopril 2 tablet PO DAILY 11/05/17 Omeprazole 20 mg PO DAILY 11/05/17 Physical Exam Vital Signs: Vital Signs Temperature 98.6 F 11/09/17 10:00 Pulse Rate 65 11/09/17 06:01 Respiratory Rate 18 11/09/17 10:00 Blood Pressure 148/68 11/09/17 10:00 O2 Sat by Pulse Oximetry (%) 98 11/07/17 10:00 Constitutional: Yes: No Distress, Calm Eyes: Yes: Conjunctiva Clear HENT: Yes: Atraumatic, Normocephalic Neck: Yes: Supple, Trachea Midline Respiratory: Yes: Regular, CTA Bilaterally Gastrointestinal: Yes: Normal Bowel Sounds, Soft, Abdomen, Obese Edema: Yes Labs: CBC, BMP 11/09/17 05:55 11/09/17 05:55 Imaging - Results Cat Scan: Report Reviewed Assessment/Plan Normocytic anemia: requiring PRBCs. s/p EGD/Colonoscopy - surg path reviewed. Iron studies reviewed (seems post transfusion). May have a component of ACD/ACI from his chronic medical conditions Will order TANNER/Flow/HgEP/ESR/CRP TSH mildly elevated, order FreeT3. ?consider capsule/?CTentero. Mild Thrombocytopenia: continue to monitor
[2017-11-09] MEDS ORDERED: PT OWN MED DRAWER 7, Y5N ONE (22:16)
[2017-11-10 06:43] LABS: BASO % 0.6 % (0-2.0); EOS % 1.5 % (0-4.5); HEMATOCRIT 26.4 % (35.4-49); HEMOGLOBIN 8.4 GM/dL (11.7-16.9); LYMPH % 18.7 % (8-40); MCH 27.1 pg (25.7-33.7); MCHC 31.7 g/dl (32.0-35.9); MEAN CELL VOLUME 85.5 fl (80-96); MEAN PLT VOLUME 6.9 fl (7.5-11.1); MONO % 9.3 % (3.8-10.2); NEUT % 69.9 % (42.8-82.8); PLATELET COUNT 113 K/MM3 (134-434); RBC 3.09 M/mm3 (4.00-5.60); RDW 17.9 % (11.9-15.9); WHITE BLOOD COUNT 6.3 K/mm3 (4.0-10.0)
[2017-11-10] MEDS: TAMSULOSIN HCL 0.4 MG CAP.ER.24H (FP) PO SCH (08:44)
[2017-11-10] MEDS: LISINOPRIL 20 MG TABLET (FP) PO SCH (09:53)
[2017-11-10] MEDS: PANTOPRAZOLE 20 MG TABLET (FP) PO SCH (09:53)
[2017-11-10] MEDS: levETIRAcetam 500 MG/5 ML INJECTION VIAL IVPB SCH (09:53)
[2017-11-10] MEDS: amLODIPine BESYLATE 5 MG TABLET (FP) PO SCH ×2 (09:54→22:44)
[2017-11-10] MEDS: FUROSEMIDE 40 MG TABLET (FP) PO SCH (09:54)
--- NOTE | 2017-11-10 15:40 | PN ---
Progress Note (short form) - Note Progress Note: CC: seizure S: no cp, palps, sob, dizziness. Transitioned to po lasix today. cards: Dr. Beckman? Current Medications Amlodipine Besylate (Norvasc -) 5 mg PO DAILY [facility] Last Admin: 11/10/17 09:54 Dose: 5 mg Febuxostat (Uloric -) 80 mg PO DAILY [facility] Last Admin: 11/09/17 09:22 Dose: 80 mg Furosemide (Lasix -) 40 mg PO DAILY [facility] Last Admin: 11/10/17 09:54 Dose: 40 mg Levetiracetam (Keppra Injection -) 500 mg IVPB BID [facility] Last Admin: 11/10/17 09:53 Dose: 500 mg Lisinopril (Prinivil) 40 mg PO DAILY [facility] Last Admin: 11/10/17 09:53 Dose: 40 mg Pantoprazole Sodium (Protonix -) 20 mg PO DAILY [facility] Last Admin: 11/10/17 09:53 Dose: 20 mg Rosuvastatin Calcium (Crestor -) 10 mg PO [facility] Last Admin: 11/09/17 22:31 Dose: 10 mg Tamsulosin HCl (Flomax -) 0.4 mg PO DAILY@0830 [facility] Last Admin: 11/10/17 08:44 Dose: 0.4 mg Vital Signs - 24 hr 11/09/17 11/09/17 11/09/17 16:00 18:00 20:00 Temperature 98.5 F Pulse Rate 80 Respiratory 18 18 18 Rate Blood Pressure 148/67 155/81 160/84 O2 Sat by Pulse 95 Oximetry (%) 11/09/17 11/10/17 11/10/17 22:00 00:37 02:00 Temperature 98.2 F Pulse Rate 80 70 68 Respiratory 18 18 18 Rate Blood Pressure 160/84 158/80 159/80 O2 Sat by Pulse 95 Oximetry (%) 11/10/17 11/10/17 11/10/17 04:00 06:00 08:00 Temperature 98.8 F 98.0 F Pulse Rate 60 66 56 L Respiratory 18 18 18 Rate Blood Pressure 150/80 150/88 153/69 O2 Sat by Pulse Oximetry (%) 11/10/17 11/10/17 09:00 12:00 Temperature 97.9 F Pulse Rate 59 L Respiratory 18 20 Rate Blood Pressure 134/68 O2 Sat by Pulse 95 Oximetry (%) Intake & Output 11/08/17 11/09/17 11/10/17 11/11/17 07:59 07:59 07:59 07:59 Intake Total 500 340 520 Output Total 2200 800 Balance 500 -1860 -280 Weight 217 lb 219 lb nad, calm jvd at clavicle, neck supple bibasilar rales, nl effort rrr nl s1, s2 2/6 sys murmur at apex. + bs soft nt nd, no hsm no le edema alert and oriented no jaundice, diaphoresis CBC 11/10/17 05:56 Laboratory Tests 11/09/17 11/09/17 11/10/17 05:55 05:55 05:56 Hgb 8.6 L D ESR 34 H Retic Count Albumin 2.9 L 11/10/17 05:56 Hgb ESR Retic Count 4.72 H Albumin ekg: afib, svr (52 bpm). no acute ischemic changes. tele: afib, rate [address]: no acute pathology cxr: bibasilar atelectasis, can't exclude early infiltrate. by my review ? congestion (fluid in fissure). echo 10/2017: nl lv size/fn. 1+ rve. nl rv fn. mod brie. mild-mod ar/mr. mod- sev tr. head ct: no acute pathology. 11/[address] reviewed. 07/20/15 Cardiac cath [facility]- Right-Sided Pressures are Increased, Mild Pulmonary Hypertension (pa mean 30), PCW/LVEDP is increased- Coronary Anatomy : I Vessel CAD (RCA) LV Function/Aorta : Moderate systolic LV Dysfunction ~EF 35% Valves : 1. No Aortic stenosis 2. No Mitral stenosis 07/21/15 TTE with definity [facility]- normal left ventricular size. overall moderate decreased left ventricular systolic function (diffuse); ejection fraction = 43 % moderate concentric left ventricular hypertrophy abnormal left ventricular diastolic filling pattern [may be due to age or LVH] probable mild right ventricular dilatation. probable mild decreased right ventricular function mild to moderate mitral regurgitation mild tricuspid regurgitation mild pulmonary hypertension ascending aorta dilatation mibi 06/2015: lvef 33%, no defects but +tid c/w high risk study ASSESSMENT/PLAN 77yo with hx of cmpathy/systolic chf with severely reduced lvef, pafib, cad s/ p remote pci (2010 per pt), htn, hld, ckd (bline cr? ~ 1.8-2.0), possible hx of CVA? ( residual BL motor weakness), seizure who p/w seizure, ER course notable for hgb of 4.0. anemia - s/p transfusions with iv lasix. tolerated without volume overload. - Patient endorses prior hx of GIB. States last bleed was 3 weeks ago --> was hospitalized and transfused. - scopes done 11/07, no clear abnormalities, but pathology c/w chronic gastritis and severe acute and chronic duodenitis - also with new thrombocytopenia since 11/09, heme following. Seizure - known hx. neuro following - no bradyarrhythmias or ventricular arrhythmias noted thus far on tele monitoring Permanent Afib - on last discharge from [facility] [facility] in 2015 was d/c on eliquis and asa. AC not on recent med list --> per patient, was subsequently stopped due to hx of prior GIB. -con't to hold AC/anti-platelets in setting of profound anemia and new thrombocytopenia. - rate controlled/slow off av sravanthi blockade. Systolic HF, echo here shows normalization of cardiac function - unknown of prior systolic dysfunction was 2/2 tachymyopathy or ischemic in nature. Repeat echo here shows normalization of cardiac function despite being off optimal HF regimen. - had previously been on coreg, but not on recent outpatient med list. would con't to hold in light of afib with slow ventricular rate. con't lisinopril. - Patient denies sx's of volume overload. Prior d/c weight from 2016 was 213 lbs. Cxr by my review with ? congestion. s/p lasix 40 mg IV qd on 11/04-11/09-> Cr stable. Will change to po lasix. - 11/10 Changed to po lasix, monitor for need to adjust dose. con't daily bmp, intake/outake, daily weights. CAD hx prior PCI s/p (+) MPI at OSH. (no recent interventions) - S/p Cardiac cath 07/20/15 with Non Obstructive CAD. - off anti-platelets 2/2 prior hx of GIB. here with profound anemia, con't to hold. - statin not listed on outpatient med list. previously on crestor 10 mg/day, resumed here. htn - norvasc added 11/08 for better bp control. cont to monitor. - 11/10: bp still suboptimal overnight on lisinopril 40 mg/day and norvasc 5 mg/ day, will increase norvasc to 5 mg bid.
--- NOTE | 2017-11-10 18:45 | PN ---
Physical Exam: Medicine coverage [place] SUBJECTIVE: Patient seen and examined. Pt says he is fine, he hasn't walked in 10 weeks bc of intermediate and he refuses to go back. OBJECTIVE: Vital Signs Period Temp Pulse Resp BP Sys/Hair Pulse Ox Last 24 Hr 97.9 F-98.8 F 56-80 18-24 128-160/56-88 95-95 PE Neuro: alert, awake, cn 2-12intact Pulm: diminished, clear CV: s1 s2 irregular rhythm, regular rate Abd: s nt nd + bs Ext: warm, no le edema Laboratory Results - last 24 hr 11/10/17 11/10/17 11/10/17 05:56 05:56 05:56 WBC 6.3 RBC 3.09 L Hgb 8.4 L Hct 26.4 L MCV 85.5 MCH 27.1 MCHC 31.7 L RDW 17.9 H Plt Count 113 L MPV 6.9 L Neutrophils % 69.9 Lymphocytes % 18.7 Monocytes % 9.3 Eosinophils % 1.5 Basophils % 0.6 Nucleated RBC % 0 ESR 34 H Retic Count Potassium LD Total 233 C-Reactive Protein 4.0 H 11/10/17 11/10/17 05:56 16:30 WBC RBC Hgb Hct MCV MCH MCHC RDW Plt Count MPV Neutrophils % Lymphocytes % Monocytes % Eosinophils % Basophils % Nucleated RBC % ESR Retic Count 4.72 H Potassium 4.3 LD Total C-Reactive Protein Active Medications Generic Name Dose Route Start Last Admin Trade Name Freq PRN Reason Stop Dose Admin Amlodipine Besylate 5 mg 11/10/17 22:00 Norvasc - PO BID MICHAEL Febuxostat 80 mg 11/05/17 10:00 11/09/17 09:22 Uloric - PO 80 mg DAILY MICHAEL Administration Furosemide 40 mg 11/10/17 10:00 11/10/17 09:54 Lasix - PO 40 mg DAILY MICHAEL Administration Levetiracetam 500 mg 11/05/17 22:00 11/10/17 09:53 Keppra Injection - IVPB 500 mg BID MICHAEL Administration Lisinopril 40 mg 11/05/17 10:00 11/10/17 09:53 Prinivil PO 40 mg DAILY MICHAEL Administration Pantoprazole Sodium 20 mg 11/05/17 10:00 11/10/17 09:53 Protonix - PO 20 mg DAILY MICHAEL Administration Rosuvastatin Calcium 10 mg 11/06/17 22:00 11/09/17 22:31 Crestor - PO 10 mg HS MICHAEL Administration Tamsulosin HCl 0.4 mg 11/05/17 08:30 11/10/17 08:44 Flomax - PO 0.4 mg DAILY@0830 MICHAEL Administration Imaging: ECHO 10/2017: nl lv size/fn. 1+ rve. nl rv fn. mod brie. mild-mod ar/mr. mod- sev tr. Assessment: 77 year old male with PMH DM, HTN, CAD, CHF/LV systolic dysfunction , PAfib, pulmonary HTN, CVA presented to the ED with seizure like activity. Plan: 1. Seizure activity - Non further - Convert to po keppra 500mg BID 2. Acute systolic CHF exac/HTN - ECHO above - Cont lasix 40mg po - Cont lisinopril - Cont to hold coreg, d/t afib w / slow ventricular rate - Started and maintain norvasc, bp controlled 3. Severe acute blood loss anemia, nomocytic - s/p 2upacked cells 11/08 - Monitor hgb, slight drop - Heme note evaluated - EGD/colonoscopy showed severe duodenitis. H. pylori, metaplasia negative gastritis - Cont ppi - GI seeing 4. Mild Thrombocytopenia - Monitor, no acute signs of bleeding - Heme/onc seeing 5. PAfib - AC held due to GI bleed / severe anemia 6. CKD - Cr improving - On lasix 7. CAD hx prior PCI 07/2015, s/p (+) MPI - PCI non obstructive CAD - Crestor - No ASA due to GIB 8. DVT PPX - heparin deferred due to severe anemia Dispo: - Pt refusing NH, however also refusing PT, he states he wants to go home his will care of him, PT to eval prior to dc Visit type - Emergency Visit Emergency Visit: Yes ED Registration Date: 11/04/17 Care time: The patient presented to the Emergency Department on the above date and was hospitalized for further evaluation of their emergent condition. - New Patient This patient is new to me today: Yes Date on this admission: 11/10/17 - Critical Care Critical Care patient: No - Discharge Referral Referred to [facility] No
[2017-11-10] MEDS ORDERED: PT OWN MED DRAWER 7, Y5N ONE (22:43)
[2017-11-10] MEDS: levETIRAcetam 500 MG TABLET (FP) PO SCH (22:44)
[2017-11-10] MEDS: ROSUVASTATIN CA 10 MG TABLET (FP) PO SCH (22:44)
[2017-11-10] MEDS: POLYETHYLENE GLYCOL 3350 119 GM BTL PO SCH (22:44)
[2017-11-11 06:31] LABS: BASO % 0.3 % (0-2.0); EOS % 1.6 % (0-4.5); HEMATOCRIT 26.5 % (35.4-49); HEMOGLOBIN 8.2 GM/dL (11.7-16.9); MCH 26.7 pg (25.7-33.7); MEAN PLT VOLUME 7.3 fl (7.5-11.1); MONO % 9.3 % (3.8-10.2); NEUT % 69.8 % (42.8-82.8); PLATELET COUNT 107 K/MM3 (134-434); RBC 3.08 M/mm3 (4.00-5.60); RDW 17.7 % (11.9-15.9); WHITE BLOOD COUNT 6.6 K/mm3 (4.0-10.0)
[2017-11-11 06:46] LABS: ANION GAP 2 (8-16); BLOOD UREA NITROGEN 38 mg/dL (7-18); CALCIUM 7.8 mg/dL (8.5-10.1); CHLORIDE 99 mmol/L (98-107); CO2 41 mmol/L (21-32); CREATININE 1.7 mg/dL (0.7-1.3); GLUCOSE,RANDOM 94 mg/dL (74-106); MAGNESIUM 2.1 mg/dL (1.8-2.4); POTASSIUM 4.3 mmol/L (3.5-5.1); SODIUM 142 mmol/L (136-145)
[2017-11-11] MEDS ORDERED: PT OWN MED DRAWER 7, Y5N ONE ×2 (09:06→20:53)
[2017-11-11] MEDS: FEBUXOSTAT 80 MG TAB PO SCH (09:30)
[2017-11-11] MEDS: TAMSULOSIN HCL 0.4 MG CAP.ER.24H (FP) PO SCH (09:31)
[2017-11-11] MEDS: LISINOPRIL 20 MG TABLET (FP) PO SCH (09:31)
[2017-11-11] MEDS: PANTOPRAZOLE 20 MG TABLET (FP) PO SCH (09:32)
[2017-11-11] MEDS: levETIRAcetam 500 MG TABLET (FP) PO SCH ×2 (09:32→21:05)
[2017-11-11] MEDS: POLYETHYLENE GLYCOL 3350 119 GM BTL PO SCH (09:32)
[2017-11-11] MEDS: FUROSEMIDE 40 MG TABLET (FP) PO SCH (09:32)
[2017-11-11] MEDS: amLODIPine BESYLATE 5 MG TABLET (FP) PO SCH ×2 (09:32→21:05)
--- NOTE | 2017-11-11 14:06 | PN ---
Physical Exam: SUBJECTIVE: Patient seen and examined. No acute issues. + BM OBJECTIVE: Vital Signs Period Temp Pulse Resp BP Sys/Hair Pulse Ox Last 24 Hr 98.1 F-99.2 F 67-99 18-27 119-154/52-76 98-99 PE Neuro: alert, awake, cn 2-12intact Pulm: diminished, clear CV: s1 s2 irregular rhythm, regular rate Abd: s nt nd + bs Ext: warm, no le edema Laboratory Results - last 24 hr 11/08/17 11/10/17 11/10/17 09:00 05:56 16:30 WBC RBC Hgb Hct MCV MCH MCHC RDW Plt Count MPV Neutrophils % Lymphocytes % Monocytes % Eosinophils % Basophils % Nucleated RBC % Sodium Potassium 4.3 Chloride Carbon Dioxide Anion Gap BUN Creatinine Random Glucose Calcium Magnesium Free T3 1.8 L Blood Type B POSITIVE Antibody Screen Negative Crossmatch See Detail 11/11/17 11/11/17 05:36 05:36 WBC 6.6 RBC 3.08 L Hgb 8.2 L Hct 26.5 L MCV 86.0 MCH 26.7 MCHC 31.0 L RDW 17.7 H Plt Count 107 L MPV 7.3 L Neutrophils % 69.8 Lymphocytes % 19.0 Monocytes % 9.3 Eosinophils % 1.6 Basophils % 0.3 Nucleated RBC % 0 Sodium 142 Potassium 4.3 Chloride 99 Carbon Dioxide 41 H Anion Gap 2 L BUN 38 H D Creatinine 1.7 H Random Glucose 94 Calcium 7.8 L Magnesium 2.1 Free T3 Blood Type Antibody Screen Crossmatch Active Medications Generic Name Dose Route Start Last Admin Trade Name Chineduq PRN Reason Stop Dose Admin Amlodipine Besylate 5 mg 11/10/17 22:00 11/11/17 09:32 Norvasc - PO 5 mg BID MICHAEL Administration Febuxostat 80 mg 11/05/17 10:00 11/11/17 09:30 Uloric - PO 80 mg DAILY MICHAEL Administration Furosemide 40 mg 11/10/17 10:00 11/11/17 09:32 Lasix - PO 40 mg DAILY MICHAEL Administration Levetiracetam 500 mg 11/10/17 22:00 11/11/17 09:32 Keppra - PO 500 mg BID MICHAEL Administration Lisinopril 40 mg 11/05/17 10:00 11/11/17 09:31 Prinivil PO 40 mg DAILY MICHAEL Administration Pantoprazole Sodium 20 mg 11/05/17 10:00 11/11/17 09:32 Protonix - PO 20 mg DAILY MICHAEL Administration Polyethylene Glycol 17 gm 11/10/17 18:45 11/11/17 09:32 Miralax (For Daily Use) - PO 17 grams DAILY MICHAEL Administration Rosuvastatin Calcium 10 mg 11/06/17 22:00 11/10/17 22:44 Crestor - PO 10 mg HS MICHAEL Administration Tamsulosin HCl 0.4 mg 11/05/17 08:30 11/11/17 09:31 Flomax - PO 0.4 mg DAILY@0830 MICHAEL Administration Imaging: ECHO 10/2017: nl lv size/fn. 1+ rve. nl rv fn. mod brie. mild-mod ar/mr. mod- sev tr. Assessment: 77 year old male with PMH DM, HTN, CAD, CHF/LV systolic dysfunction , PAfib, pulmonary HTN, CVA presented to the ED with seizure like activity. Plan: 1. Seizure activity - Non further - Convert to po keppra 500mg BID 2. Acute systolic CHF exac/HTN - ECHO above - Cont lasix 40mg po - Cont lisinopril - Cont to hold coreg, d/t afib w / slow ventricular rate - Started and maintain norvasc, bp controlled 3. Severe acute blood loss anemia, nomocytic - s/p 2upacked cells 11/08 - Monitor hgb, dropping slightly - Heme seeing - EGD/colonoscopy showed severe duodenitis. H. pylori, metaplasia negative gastritis - Cont ppi - GI seeing 4. Mild Thrombocytopenia - Monitor, no acute signs of bleeding - Heme/onc seeing 5. PAfib - AC held due to GI bleed / severe anemia 6. CKD - On lasix PO 7. CAD hx prior PCI 07/2015, s/p (+) MPI - PCI non obstructive CAD - Crestor - No ASA due to GIB 8. Hypothyroid - TSH elevated, T3 low - Start synthroid 25mcg daily recheck level in 6 weeks 9. DVT PPX - heparin deferred due to severe anemia Dispo: - Pt refusing NH, however also refusing PT, he states he wants to go home his will care of him, PT to eval prior to dc Visit type - Emergency Visit Emergency Visit: Yes ED Registration Date: 11/04/17 Care time: The patient presented to the Emergency Department on the above date and was hospitalized for further evaluation of their emergent condition. - New Patient This patient is new to me today: No - Critical Care Critical Care patient: No - Discharge Referral Referred to [facility] No
[2017-11-11] MEDS: ROSUVASTATIN CA 10 MG TABLET (FP) PO SCH (21:05)
--- NOTE | 2017-11-11 22:23 | PN ---
Progress Note (short form) - Note Progress Note: CC: seizure S: no cp, palps, sob, dizziness. norvasc increased to bid yesterday. cards: Dr. Beckman? Current Medications Amlodipine Besylate (Norvasc -) 5 mg PO BID [facility] Last Admin: 11/11/17 21:05 Dose: 5 mg Febuxostat (Uloric -) 80 mg PO DAILY [facility] Last Admin: 11/11/17 09:30 Dose: 80 mg Furosemide (Lasix -) 40 mg PO DAILY [facility] Last Admin: 11/11/17 09:32 Dose: 40 mg Levetiracetam (Keppra -) 500 mg PO BID [facility] Last Admin: 11/11/17 21:05 Dose: 500 mg Levothyroxine Sodium (Synthroid -) 25 mcg PO DAILY@0700 [facility] Lisinopril (Prinivil) 40 mg PO DAILY [facility] Last Admin: 11/11/17 09:31 Dose: 40 mg Pantoprazole Sodium (Protonix -) 20 mg PO DAILY [facility] Last Admin: 11/11/17 09:32 Dose: 20 mg Polyethylene Glycol (Miralax (For Daily Use) -) 17 gm PO DAILY [facility] Last Admin: 11/11/17 09:32 Dose: 17 grams Rosuvastatin Calcium (Crestor -) 10 mg PO HS [facility] Last Admin: 11/11/17 21:05 Dose: 10 mg Tamsulosin HCl (Flomax -) 0.4 mg PO DAILY@0830 [facility] Last Admin: 11/11/17 09:31 Dose: 0.4 mg Vital Signs - 24 hr 11/10/17 11/10/17 11/11/17 22:33 22:35 02:00 Temperature 99.2 F Pulse Rate 72 67 Respiratory 18 Rate Blood Pressure 143/63 O2 Sat by Pulse 99 99 Oximetry (%) 11/11/17 11/11/17 11/11/17 06:25 08:00 09:00 Temperature 98.1 F Pulse Rate 78 83 Respiratory 20 18 Rate Blood Pressure 154/73 141/59 O2 Sat by Pulse 98 Oximetry (%) 11/11/17 11/11/17 11/11/17 09:30 10:00 12:00 Temperature 98.8 F Pulse Rate 84 85 85 Respiratory 18 21 Rate Blood Pressure 142/67 119/76 O2 Sat by Pulse 98 Oximetry (%) 11/11/17 11/11/17 11/11/17 14:00 16:00 18:00 Temperature Pulse Rate 81 88 89 Respiratory 26 H 20 25 H Rate Blood Pressure 136/74 129/74 144/57 O2 Sat by Pulse Oximetry (%) 11/11/17 11/11/17 21:00 21:40 Temperature 98.6 F Pulse Rate 78 Respiratory 22 Rate Blood Pressure 134/62 O2 Sat by Pulse 98 Oximetry (%) Intake & Output 11/09/17 11/10/17 11/11/17 11/12/17 07:59 07:59 07:59 07:59 Intake Total 340 520 400 800 Output Total 2200 800 1100 1125 Balance -1860 -280 -700 -325 Weight 219 lb 213 lb 13.574 oz nad, calm jvd at clavicle, neck supple bibasilar rales, nl effort rrr nl s1, s2 2/6 sys murmur at apex. + bs soft nt nd, no hsm no le edema alert and oriented no jaundice, diaphoresis CBC, BMP 11/11/17 05:36 11/11/17 05:36 Laboratory Tests 11/10/17 05:56 Free T3 1.8 L ekg: afib, svr (52 bpm). no acute ischemic changes. tele: afib, rate 60[address] head [address]: no acute pathology cxr: bibasilar atelectasis, can't exclude early infiltrate. by my review ? congestion (fluid in fissure). echo 10/2017: nl lv size/fn. 1+ rve. nl rv fn. mod brie. mild-mod ar/mr. mod- sev tr. head ct: no acute pathology. 11/[address] reviewed. 07/20/15 Cardiac cath MSH- Right-Sided Pressures are Increased, Mild Pulmonary Hypertension (pa mean 30), PCW/LVEDP is increased- 18 Coronary Anatomy : I Vessel CAD (RCA) LV Function/Aorta : Moderate systolic LV Dysfunction ~EF 35% Valves : 1. No Aortic stenosis 2. No Mitral stenosis 07/21/15 TTE with definity MSH- normal left ventricular size. overall moderate decreased left ventricular systolic function (diffuse); ejection fraction = 43 % moderate concentric left ventricular hypertrophy abnormal left ventricular diastolic filling pattern [may be due to age or LVH] probable mild right ventricular dilatation. probable mild decreased right ventricular function mild to moderate mitral regurgitation mild tricuspid regurgitation mild pulmonary hypertension ascending aorta dilatation mibi 06/2015: lvef 33%, no defects but +tid c/w high risk study ASSESSMENT/PLAN 77yo with hx of cmpathy/systolic chf with severely reduced lvef, pafib, cad s/ p remote pci (2010 per pt), htn, hld, ckd (bline cr? ~ 1.8-2.0), possible hx of CVA? ( residual BL motor weakness), seizure who p/w seizure, ER course notable for hgb of 4.0. anemia - s/p transfusions with iv lasix. tolerated without volume overload. - Patient endorses prior hx of GIB. States last bleed was 3 weeks ago --> was hospitalized and transfused. - scopes done 11/07, no clear abnormalities, but pathology c/w chronic gastritis and severe acute and chronic duodenitis - also with new thrombocytopenia since 11/09, heme following. Seizure - known hx. neuro following - no bradyarrhythmias or ventricular arrhythmias noted thus far on tele monitoring Permanent Afib - [place] [facility] [place] d/c on eliquis and asa. AC not on recent med list --> per patient, was subsequently stopped due to hx of prior GIB. -con't to hold AC/anti-platelets in setting of profound anemia and new thrombocytopenia. - rate controlled/slow off av sravanthi blockade. - mgm't of thyroid abnormalities per pmd. Systolic HF, echo here shows normalization of cardiac function - unknown of prior systolic dysfunction was 2/2 tachymyopathy or ischemic in nature. Repeat echo here shows normalization of cardiac function despite being off optimal HF regimen. - had previously been on coreg, but not on recent outpatient med list. would con't to hold in light of afib with slow ventricular rate. con't lisinopril. - Patient denies sx's of volume overload. Prior d/c weight from 2016 was 213 lbs. Cxr by my review with ? congestion. s/p lasix 40 mg IV qd on 11/04-11/09-> Cr stable. Will change to po lasix. - 11/10-11/11 Changed to po lasix, monitor for need to adjust dose. con't daily bmp, intake/outake, daily weights. CAD hx prior PCI s/p (+) MPI at OSH. (no recent interventions) - S/p Cardiac cath 07/20/15 with Non Obstructive CAD. - off anti-platelets 2/2 prior hx of GIB. here with profound anemia, con't to hold. - statin not listed on outpatient med list. previously on crestor 10 mg/day, resumed here. htn - norvasc added 11/08 for better bp control. cont to monitor. - 11/10: bp still suboptimal overnight on lisinopril 40 mg/day and norvasc 5 mg/ day, will increase norvasc to 5 mg bid. - 11/11 bp improved, con't current regimen. thyroid abnormalities - per pmd.
[2017-11-12] MEDS: LEVOTHYROXINE NA 25 MCG TABLET (FP) PO SCH (06:15)
[2017-11-12] MEDS: TAMSULOSIN HCL 0.4 MG CAP.ER.24H (FP) PO SCH (08:43)
[2017-11-12] MEDS: PANTOPRAZOLE 20 MG TABLET (FP) PO SCH (10:00)
[2017-11-12] MEDS: FUROSEMIDE 40 MG TABLET (FP) PO SCH (10:00)
[2017-11-12] MEDS: levETIRAcetam 500 MG TABLET (FP) PO SCH ×2 (10:00→21:18)
[2017-11-12 10:28] LABS: BASO % 0.6 % (0-2.0); EOS % 1.9 % (0-4.5); HEMATOCRIT 24.2 % (35.4-49); HEMOGLOBIN 7.6 GM/dL (11.7-16.9); LYMPH % 17.6 % (8-40); MCH 27.1 pg (25.7-33.7); MCHC 31.5 g/dl (32.0-35.9); MEAN PLT VOLUME 7.3 fl (7.5-11.1); MONO % 8.5 % (3.8-10.2); NEUT % 71.4 % (42.8-82.8); PLATELET COUNT 107 K/MM3 (134-434); RBC 2.81 M/mm3 (4.00-5.60); RDW 17.4 % (11.9-15.9)
--- NOTE | 2017-11-12 10:34 | PN ---
Progress Note (short form) - Note Progress Note: pt seen and examined. Pt says he has no complains. Constitutional: Yes: No Distress, Calm Eyes: Yes: Conjunctiva Clear HENT: Yes: Atraumatic, Normocephalic Neck: Yes: Supple, Trachea Midline Respiratory: Yes: Regular, CTA Bilaterally Gastrointestinal: Yes: Normal Bowel Sounds, Soft, Abdomen, Obese Edema: YesLast Vital Signs Temp Pulse Resp BP Pulse Ox 98.4 F 68 20 159/70 98 11/12/17 04:58 11/12/17 04:58 11/12/17 04:58 11/12/17 04:58 11/11/17 21:00 Current Medications Generic Name Dose Route Start Last Admin Trade Name Freq PRN Reason Stop Dose Admin Amlodipine Besylate 5 mg 11/10/17 22:00 11/11/17 21:05 Norvasc - PO 5 mg BID MICHAEL Administration Febuxostat 80 mg 11/05/17 10:00 11/11/17 09:30 Uloric - PO 80 mg DAILY MICHAEL Administration Furosemide 40 mg 11/10/17 10:00 11/11/17 09:32 Lasix - PO 40 mg DAILY MICHAEL Administration Levetiracetam 500 mg 11/10/17 22:00 11/11/17 21:05 Keppra - PO 500 mg BID MICHAEL Administration Levothyroxine Sodium 25 mcg 11/12/17 07:00 11/12/17 06:15 Synthroid - PO 25 mcg DAILY@0700 MICHAEL Administration Lisinopril 40 mg 11/05/17 10:00 11/11/17 09:31 Prinivil PO 40 mg DAILY MICHAEL Administration Pantoprazole Sodium 20 mg 11/05/17 10:00 11/11/17 09:32 Protonix - PO 20 mg DAILY MICHAEL Administration Polyethylene Glycol 17 gm 11/10/17 18:45 11/11/17 09:32 Miralax (For Daily Use) - PO 17 grams DAILY MICHAEL Administration Rosuvastatin Calcium 10 mg 11/06/17 22:00 11/11/17 21:05 Crestor - PO 10 mg HS MICHAEL Administration Tamsulosin HCl 0.4 mg 11/05/17 08:30 11/12/17 08:43 Flomax - PO 0.4 mg DAILY@0830 MICHAEL Administration CBC, BMP 11/12/17 10:05 11/12/17 10:05 Anemia: Hgb --slowly drifting down Multi-factorial await TANNER order t/s for tomorrow GI f/u ?consider capsule/?CTentero send flow/FISH for MDS CKD --might be contributing too, to consider renal , need for JANNA Thrombocytopenia: ?congestive US abdomen, r/o hepato-splenomegaly. r/o infection Hypothyrodism: ?adjustment of dose needed? or to consider repeat in a few days but less likely to drive the Hgb. ?need for Urolic
[2017-11-12 10:52] LABS: ANION GAP 4 (8-16); BLOOD UREA NITROGEN 34 mg/dL (7-18); CALCIUM 7.9 mg/dL (8.5-10.1); CHLORIDE 97 mmol/L (98-107); CO2 39 mmol/L (21-32); CREATININE 1.4 mg/dL (0.7-1.3); GLUCOSE,RANDOM 159 mg/dL (74-106); POTASSIUM 4.5 mmol/L (3.5-5.1); SODIUM 140 mmol/L (136-145)
[2017-11-12] MEDS: amLODIPine BESYLATE 5 MG TABLET (FP) PO SCH ×2 (10:54→21:18)
[2017-11-12] MEDS: LISINOPRIL 20 MG TABLET (FP) PO SCH (10:54)
[2017-11-12] MEDS: FEBUXOSTAT 80 MG TAB PO SCH (10:55)
[2017-11-12] MEDS: POLYETHYLENE GLYCOL 3350 119 GM BTL PO SCH (10:56)
--- NOTE | 2017-11-12 12:09 | PN ---
Progress Note, Physician Chief Complaint: EVENT AND NOTES REVIEWED AWAKE ALERT DENIES CHEST PAIN OR SOB POSITIVE APPETITE - Current Medication List Current Medications: Active Medications Amlodipine Besylate (Norvasc -) 5 mg PO BID [facility] Last Admin: 11/12/17 10:54 Dose: 5 mg Febuxostat (Uloric -) 80 mg PO DAILY [facility] Last Admin: 11/12/17 10:55 Dose: 80 mg Furosemide (Lasix -) 40 mg PO DAILY [facility] Last Admin: 11/12/17 10:00 Dose: 40 mg Levetiracetam (Keppra -) 500 mg PO BID [facility] Last Admin: 11/12/17 10:00 Dose: 500 mg Levothyroxine Sodium (Synthroid -) 25 mcg PO DAILY@0700 [facility] Last Admin: 11/12/17 06:15 Dose: 25 mcg Lisinopril (Prinivil) 40 mg PO DAILY [facility] Last Admin: 11/12/17 10:54 Dose: 40 mg Pantoprazole Sodium (Protonix -) 20 mg PO DAILY [facility] Last Admin: 11/12/17 10:00 Dose: 20 mg Polyethylene Glycol (Miralax (For Daily Use) -) 17 gm PO DAILY [facility] Last Admin: 11/12/17 10:56 Dose: 17 grams Rosuvastatin Calcium (Crestor -) 10 mg PO HS [facility] Last Admin: 11/11/17 21:05 Dose: 10 mg Tamsulosin HCl (Flomax -) 0.4 mg PO DAILY@0830 [facility] Last Admin: 11/12/17 08:43 Dose: 0.4 mg - Objective Vital Signs: Vital Signs Temperature 98.4 F 11/12/17 04:58 Pulse Rate 68 11/12/17 04:58 Respiratory Rate 20 11/12/17 04:58 Blood Pressure 159/70 11/12/17 04:58 O2 Sat by Pulse Oximetry (%) 98 11/11/17 21:00 Constitutional: Yes: No Distress Eyes: Yes: WNL HENT: Yes: WNL Neck: Yes: WNL Cardiovascular: Yes: WNL Respiratory: Yes: WNL Gastrointestinal: Yes: WNL Genitourinary: Yes: Other Musculoskeletal: Yes: WNL Extremities: Yes: WNL Edema: No Peripheral Pulses WNL: Yes Integumentary: Yes: WNL Wound/Incision: Yes: Clean/Dry Neurological: Yes: WNL ...Motor Strength: WNL Psychiatric: Yes: WNL Labs: CBC, BMP 11/12/17 10:05 11/12/17 10:05 INR, PTT INR 1.34 (0.82-1.09) H 11/07/17 05:00 Problem List - Problems (1) Anemia requiring transfusions Code(s): D64.9 - ANEMIA, UNSPECIFIED (2) CHF (congestive heart failure) Code(s): I50.9 - HEART FAILURE, UNSPECIFIED (3) ARF (acute renal failure) Code(s): N17.9 - ACUTE KIDNEY FAILURE, UNSPECIFIED (4) Afib Code(s): I48.91 - UNSPECIFIED ATRIAL FIBRILLATION Qualifiers: Atrial fibrillation type: paroxysmal Qualified Code(s): I48.0 - Paroxysmal atrial fibrillation (5) Cardiomyopathy Code(s): I42.9 - CARDIOMYOPATHY, UNSPECIFIED (6) Diabetes mellitus Code(s): E11.9 - TYPE 2 DIABETES MELLITUS WITHOUT COMPLICATIONS Assessment/Plan MONITOR H/H GI FOLLOW UP HEME WORKUP TRANSFUSE PRBC IN AM IF H/H DROPS FURTHER OOB TO CHAIR TRANSFER TO TELEMETRY STEIN 4 WHEN BED AVAILABLE
--- NOTE | 2017-11-12 13:51 | PN ---
Progress Note (short form) - Note Progress Note: CC: seizure S: no cp, palps, sob, dizziness. hgb slowly trending down. synthroid started today. cards: Dr. Beckman? Current Medications Amlodipine Besylate (Norvasc -) 5 mg PO BID [facility] Last Admin: 11/12/17 10:54 Dose: 5 mg Febuxostat (Uloric -) 80 mg PO DAILY [facility] Last Admin: 11/12/17 10:55 Dose: 80 mg Furosemide (Lasix -) 40 mg PO DAILY [facility] Last Admin: 11/12/17 10:00 Dose: 40 mg Levetiracetam (Keppra -) 500 mg PO BID [facility] Last Admin: 11/12/17 10:00 Dose: 500 mg Levothyroxine Sodium (Synthroid -) 25 mcg PO DAILY@0700 [facility] Last Admin: 11/12/17 06:15 Dose: 25 mcg Lisinopril (Prinivil) 40 mg PO DAILY [facility] Last Admin: 11/12/17 10:54 Dose: 40 mg Pantoprazole Sodium (Protonix -) 20 mg PO DAILY [facility] Last Admin: 11/12/17 10:00 Dose: 20 mg Polyethylene Glycol (Miralax (For Daily Use) -) 17 gm PO DAILY [facility] Last Admin: 11/12/17 10:56 Dose: 17 grams Rosuvastatin Calcium (Crestor -) 10 mg PO HS [facility] Last Admin: 11/11/17 21:05 Dose: 10 mg Tamsulosin HCl (Flomax -) 0.4 mg PO DAILY@0830 [facility] Last Admin: 11/12/17 08:43 Dose: 0.4 mg Vital Signs - 24 hr 11/11/17 11/11/17 11/11/17 14:00 16:00 18:00 Temperature Pulse Rate 81 88 89 Respiratory 26 H 20 25 H Rate Blood Pressure 136/74 129/74 144/57 O2 Sat by Pulse Oximetry (%) 11/11/17 11/11/17 11/12/17 21:00 21:40 01:16 Temperature 98.6 F Pulse Rate 78 73 Respiratory 22 20 Rate Blood Pressure 134/62 146/68 O2 Sat by Pulse 98 Oximetry (%) 11/12/17 04:58 Temperature 98.4 F Pulse Rate 68 Respiratory 20 Rate Blood Pressure 159/70 O2 Sat by Pulse Oximetry (%) Intake & Output 11/10/17 11/11/17 11/12/17 11/13/17 07:59 07:59 07:59 07:59 Intake Total 100 911 3191 Output Total 800 1100 1125 Balance -280 -700 35 Weight 219 lb 213 lb 13.574 oz nad, calm jvd at clavicle, neck supple bibasilar rales, nl effort rrr nl s1, s2 2/6 sys murmur at apex. + bs soft nt nd, no hsm no le edema alert and oriented no jaundice, diaphoresis CBC, BMP 11/12/17 10:05 11/12/17 10:05 ekg: afib, svr (52 bpm). no acute ischemic changes. tele: afib, rate 60[address] head ct: no acute pathology cxr: bibasilar atelectasis, can't exclude early infiltrate. by my review ? congestion (fluid in fissure). echo 10/2017: nl lv size/fn. 1+ rve. nl rv fn. mod brie. mild-mod ar/mr. mod- sev tr. head ct: no acute pathology. 11/[address] reviewed. 07/20/15 Cardiac cath MSH- Right-Sided Pressures are Increased, Mild Pulmonary Hypertension (pa mean 30), PCW/LVEDP is increased- 18 Coronary Anatomy : I Vessel CAD (RCA) LV Function/Aorta : Moderate systolic LV Dysfunction ~EF 35% Valves : 1. No Aortic stenosis 2. No Mitral stenosis 07/21/15 TTE with definity MSH- normal left ventricular size. overall moderate decreased left ventricular systolic function (diffuse); ejection fraction = 43 % moderate concentric left ventricular hypertrophy abnormal left ventricular diastolic filling pattern [may be due to age or LVH] probable mild right ventricular dilatation. probable mild decreased right ventricular function mild to moderate mitral regurgitation mild tricuspid regurgitation mild pulmonary hypertension ascending aorta dilatation mibi 06/2015: lvef 33%, no defects but +tid c/w high risk study ASSESSMENT/PLAN 77yo with hx of cmpathy/systolic chf with severely reduced lvef, pafib, cad s/ p remote pci (2010 per pt), htn, hld, ckd (bline cr? ~ 1.8-2.0), possible hx of CVA? ( residual BL motor weakness), seizure who p/w seizure, ER course notable for hgb of 4.0. anemia - s/p transfusions with iv lasix. tolerated without volume overload. - Patient endorses prior hx of GIB. States last bleed was 3 weeks ago --> was hospitalized at [facility] and transfused. - scopes done 11/07, no clear abnormalities, but pathology c/w chronic gastritis and severe acute and chronic duodenitis - also with thrombocytopenia since 11/09, heme following. - 11/11 hgb slowly trending down, con't transfusions prn. Seizure - known hx. neuro following - no pathologic bradyarrhythmias or ventricular arrhythmias noted thus far on tele monitoring Permanent Afib - on last discharge from [facility] [place] in 2015 was d/c on eliquis and asa. AC not on recent med list --> per patient, was subsequently stopped due to hx of prior GIB. -con't to hold AC/anti-platelets in setting of profound anemia and new thrombocytopenia. - rate controlled/slow off av sravanthi blockade. - mgm't of thyroid abnormalities per pmd. added total t3 and free t4 to labs. synthroid started today 11/12. Systolic HF, echo here shows normalization of cardiac function - unknown of prior systolic dysfunction was 2/2 tachymyopathy or ischemic in nature. Repeat echo here shows normalization of cardiac function despite being off optimal HF regimen. - had previously been on coreg, but not on recent outpatient med list. would con't to hold in light of afib with slow ventricular rate. con't lisinopril. - Patient denies sx's of volume overload. Prior d/c weight from 2016 was 213 lbs. Cxr by my review with ? congestion. s/p lasix 40 mg IV qd on 11/04-11/09-> Cr stable. Will change to po lasix. - 11/10-11/12 Changed to po lasix. Cr continues to improve, weight slowly trending down, con't current dose for now. con't daily bmp, intake/outake, daily weights. 11/12 will repeat pa/lat cxr and reassess pulm congestion. wean oxygen. CAD hx prior PCI s/p (+) MPI at [facility]. (no recent interventions) - S/p Cardiac cath 07/20/15 with Non Obstructive CAD. - off anti-platelets 2/2 prior hx of GIB. here with profound anemia, con't to hold. - statin not listed on outpatient med list. previously on crestor 10 mg/day, resumed here, will recheck lfts. htn - norvasc added 11/08 for better bp control. cont to monitor. - 11/10: bp still suboptimal overnight on lisinopril 40 mg/day and norvasc 5 mg/ day, will increase norvasc to 5 mg bid. - 11/11-11/12 bp improved, con't current regimen. thyroid abnormalities - per pmd. started on synthroid 11/12 ok to d/c tele from CV perspective, can con't if needed from perspective of gib monitoring.
[2017-11-12] MEDS: ROSUVASTATIN CA 10 MG TABLET (FP) PO SCH (21:18)
[2017-11-13] MEDS: LEVOTHYROXINE NA 25 MCG TABLET (FP) PO SCH (06:16)
[2017-11-13 06:41] LABS: HEMATOCRIT 25.2 % (35.4-49); MCHC 31.8 g/dl (32.0-35.9); MEAN CELL VOLUME 84.8 fl (80-96); MEAN PLT VOLUME 7.3 fl (7.5-11.1); PLATELET COUNT 107 K/MM3 (134-434); RBC 2.98 M/mm3 (4.00-5.60); RDW 17.6 % (11.9-15.9); WHITE BLOOD COUNT 6.6 K/mm3 (4.0-10.0)
[2017-11-13 06:46] LABS: ALBUMIN 2.8 g/dl (3.4-5.0); ANION GAP 2 (8-16); BLOOD UREA NITROGEN 36 mg/dL (7-18); CALCIUM 8.2 mg/dL (8.5-10.1); CHLORIDE 94 mmol/L (98-107); CO2 43 mmol/L (21-32); GLUCOSE,RANDOM 92 mg/dL (74-106); POTASSIUM 4.9 mmol/L (3.5-5.1); SODIUM 139 mmol/L (136-145)
[2017-11-13 06:51] LABS: ALK PHOS 90 U/L (45-117); BILIRUBIN,TOTAL 0.8 mg/dL (0.2-1.0); CREATININE 1.4 mg/dL (0.7-1.3); SGOT/AST 39 U/L (15-37); SGPT/ALT 22 U/L (12-78); TOT PROT 6.8 g/dl (6.4-8.2)
[2017-11-13] MEDS: PANTOPRAZOLE 20 MG TABLET (FP) PO SCH (09:28)
[2017-11-13] MEDS: TAMSULOSIN HCL 0.4 MG CAP.ER.24H (FP) PO SCH (09:28)
[2017-11-13] MEDS: levETIRAcetam 500 MG TABLET (FP) PO SCH ×2 (09:28→21:25)
[2017-11-13] MEDS: LISINOPRIL 20 MG TABLET (FP) PO SCH (09:28)
[2017-11-13] MEDS: amLODIPine BESYLATE 5 MG TABLET (FP) PO SCH ×2 (09:29→21:25)
[2017-11-13] MEDS: FUROSEMIDE 40 MG TABLET (FP) PO SCH (09:29)
[2017-11-13] MEDS: POLYETHYLENE GLYCOL 3350 119 GM BTL PO SCH (09:31)
[2017-11-13] MEDS ORDERED: PT OWN MED DRAWER 7, Y5N ONE (11:00)
[2017-11-13] MEDS: FEBUXOSTAT 80 MG TAB PO SCH (11:05)
[2017-11-13 16:05] VITALS: BMI 24.7
--- NOTE | 2017-11-13 16:45 | PN ---
Progress Note, Physician Chief Complaint: patient seen and examined in icu no distress - Current Medication List Current Medications: Active Medications Amlodipine Besylate (Norvasc -) 5 mg PO BID [facility] Last Admin: 11/13/17 09:29 Dose: 5 mg Febuxostat (Uloric -) 80 mg PO DAILY [facility] Last Admin: 11/13/17 11:05 Dose: 80 mg Furosemide (Lasix -) 40 mg PO DAILY [facility] Last Admin: 11/13/17 09:29 Dose: 40 mg Levetiracetam (Keppra -) 500 mg PO BID [facility] Last Admin: 11/13/17 09:28 Dose: 500 mg Levothyroxine Sodium (Synthroid -) 25 mcg PO DAILY@0700 [facility] Last Admin: 11/13/17 06:16 Dose: 25 mcg Lisinopril (Prinivil) 40 mg PO DAILY [facility] Last Admin: 11/13/17 09:28 Dose: 40 mg Pantoprazole Sodium (Protonix -) 20 mg PO DAILY [facility] Last Admin: 11/13/17 09:28 Dose: 20 mg Polyethylene Glycol (Miralax (For Daily Use) -) 17 gm PO DAILY [facility] Last Admin: 11/13/17 09:31 Dose: Not Given Rosuvastatin Calcium (Crestor -) 10 mg PO HS [facility] Last Admin: 11/12/17 21:18 Dose: 10 mg Tamsulosin HCl (Flomax -) 0.4 mg PO DAILY@0830 [facility] Last Admin: 11/13/17 09:28 Dose: 0.4 mg - Objective Vital Signs: Vital Signs Temperature 98.4 F 11/13/17 14:02 Pulse Rate 88 11/13/17 16:00 Respiratory Rate 17 11/13/17 16:00 Blood Pressure 110/58 11/13/17 16:00 O2 Sat by Pulse Oximetry (%) 98 11/13/17 09:00 Constitutional: Yes: Calm Neck: Yes: Trachea Midline Cardiovascular: Yes: Regular Rate and Rhythm, S1, S2 Respiratory: Yes: CTA Bilaterally Gastrointestinal: Yes: Normal Bowel Sounds, Soft Edema: No Neurological: Yes: Alert Labs: CBC, BMP 11/13/17 05:55 11/13/17 05:55 INR, PTT INR 1.34 (0.82-1.09) H 11/07/17 05:00 Problem List - Problems (1) Anemia requiring transfusions Assessment/Plan: s/p EGD s/p prbc monitor h/h if < 8 will tranfuse Code(s): D64.9 - ANEMIA, UNSPECIFIED (2) Acute on chronic systolic congestive heart failure Assessment/Plan: echo done on lisinopril and lasix Code(s): I50.23 - ACUTE ON CHRONIC SYSTOLIC (CONGESTIVE) HEART FAILURE (3) Afib Assessment/Plan: not on AC bc prior history of gib Code(s): I48.91 - UNSPECIFIED ATRIAL FIBRILLATION Qualifiers: Atrial fibrillation type: paroxysmal Qualified Code(s): I48.0 - Paroxysmal atrial fibrillation (4) Seizure disorder Assessment/Plan: started on keprra Code(s): G40.909 - EPILEPSY, UNSP, NOT INTRACTABLE, WITHOUT STATUS EPILEPTICUS (5) Hypothyroid Assessment/Plan: started on synthroid thyroid studies noted Code(s): E03.9 - HYPOTHYROIDISM, UNSPECIFIED Assessment/Plan oob to chair awaiting transfer to [facility]
--- NOTE | 2017-11-13 18:02 | PN ---
Progress Note, Physician Chief Complaint: anemia History of Present Illness: denies palpitations, cp, sob, syncope - Current Medication List Current Medications: Active Medications Amlodipine Besylate (Norvasc -) 5 mg PO BID [facility] Last Admin: 11/13/17 09:29 Dose: 5 mg Febuxostat (Uloric -) 80 mg PO DAILY [facility] Last Admin: 11/13/17 11:05 Dose: 80 mg Furosemide (Lasix -) 40 mg PO DAILY [facility] Last Admin: 11/13/17 09:29 Dose: 40 mg Levetiracetam (Keppra -) 500 mg PO BID [facility] Last Admin: 11/13/17 09:28 Dose: 500 mg Levothyroxine Sodium (Synthroid -) 25 mcg PO DAILY@0700 [facility] Last Admin: 11/13/17 06:16 Dose: 25 mcg Lisinopril (Prinivil) 40 mg PO DAILY [facility] Last Admin: 11/13/17 09:28 Dose: 40 mg Pantoprazole Sodium (Protonix -) 20 mg PO DAILY [facility] Last Admin: 11/13/17 09:28 Dose: 20 mg Polyethylene Glycol (Miralax (For Daily Use) -) 17 gm PO DAILY [facility] Last Admin: 11/13/17 09:31 Dose: Not Given Rosuvastatin Calcium (Crestor -) 10 mg PO HS [facility] Last Admin: 11/12/17 21:18 Dose: 10 mg Tamsulosin HCl (Flomax -) 0.4 mg PO DAILY@0830 [facility] Last Admin: 11/13/17 09:28 Dose: 0.4 mg - Objective Vital Signs: Vital Signs Temperature 98.4 F 11/13/17 14:02 Pulse Rate 88 11/13/17 16:00 Respiratory Rate 17 11/13/17 16:00 Blood Pressure 110/58 11/13/17 16:00 O2 Sat by Pulse Oximetry (%) 98 11/13/17 09:00 Constitutional: Yes: Well Nourished, No Distress, Calm Cardiovascular: Yes: Pulse Irregular, S1, S2. No: Gallop, Murmur Respiratory: Yes: Regular, CTA Bilaterally. No: Accessory Muscle Use, Wheezes Extremities: No: Cool Edema: No Neurological: Yes: Alert. No: Seizure Psychiatric: No: Agitated Labs: CBC, BMP 11/13/17 05:55 11/13/17 05:55 INR, PTT INR 1.34 (0.82-1.09) H 11/07/17 05:00 Assessment/Plan ekg: afib, svr (52 bpm). no acute ischemic changes. Echo 10/2017: nl lv size/fn. 1+ rve. nl rv fn. mod brie. mild-mod ar/mr. mod- sev tr. Echo 07/2015 [place] (Definity contrast study): normal left ventricular size. overall moderate decreased left ventricular systolic function (diffuse); ejection fraction = 43 % moderate concentric left ventricular hypertrophy probable mild right ventricular dilatation. probable mild decreased right ventricular function mild to moderate mitral regurgitation mild tricuspid regurgitation mild pulmonary hypertension ascending aorta dilatation L/RHC 07/2015 ([place]): Right-Sided Pressures are Increased, Mild Pulmonary Hypertension (pa mean 30), PCW/LVEDP is increased- 18 diffuse non-obstructive CAD (worst 50-60% RCA) +moderate systolic LV Dysfunction ~EF 35% mibi 06/2015: lvef 33%, no defects but +tid c/w high risk study tele: Afib with HRs to 120s-140s ASSESSMENT/PLAN 77yo with hx of cmpathy/systolic chf with severely reduced lvef, pafib, cad s/ p remote pci (2010 per pt), htn, hld, ckd (bline cr? ~ 1.8-2.0), possible hx of CVA? (residual BL motor weakness), seizure who p/w seizure, ER course notable for hgb of 4.0. anemia (hgb 4.0): - s/p transfusions here - Patient endorses prior hx of GIB. States last bleed was 3 weeks ago --> was hospitalized at [facility] and transfused. - scopes done 11/07, no clear abnormalities, but pathology c/w chronic gastritis and severe acute and chronic duodenitis - also with thrombocytopenia since 11/09, heme following. - treatment per heme, critical care Seizure - known hx. neuro following - no pathologic bradyarrhythmias or ventricular arrhythmias noted thus far on tele monitoring Permanent Afib - on last discharge from [facility] [place] in 2015 was d/c on eliquis and asa. AC not on recent med list --> per patient, was subsequently stopped due to hx of prior GIB. - has not followed up in our office since 2015. - con't to hold AC/anti-platelets in setting of profound anemia and new thrombocytopenia. - rates now rapid, with prior h/o reversible LV myopathy ? from tachycardia. - on carvedilol 6.25 bid at home--not likely to have much chronotropic effect at this dose. given EF normal, will change to toprol for better HR control properties - should have aggressive HR control to avoid recurrent systolic dysfunction. - needs outpt cardio f/u chronic systolic HF, echo here shows normalization of cardiac function - h/o nonischemic CMP 2015 (1VD only on cath, diffuse/moderate LV hypo then - ? if LV systolic dysfunction was 2/2 tachymyopathy at that time. Repeat echo here shows normalization of cardiac function despite being off optimal HF regimen. - BB (metoprolol) as above - con't lisinopril. - aggressive AF rate control indicated here. - no sob. CXR here with ? congestion per dr escobar review. s/p lasix 40 mg IV qd on 11/04-11/09 - 11/09: Cr stable. changed to po lasix. - CXR 11/12: no chf findings. + ATX. - continue same mgmt chronic CAD - hx prior PCI s/p (+) MPI at [facility]. - s/p cardiac cath 2015 with non-obstructive CAD. - off anti-platelets 2/2 prior hx of GIB. here with profound anemia, con't to hold. - statin not listed on outpatient med list. previously on crestor 10 mg/day, resumed here, will recheck lfts. - needs outpt cardio f/u htn - norvasc added here - 11/13 starting metoprolol - bp currently controlled thyroid abnormalities - per pmd. started on synthroid here
[2017-11-13] MEDS: ROSUVASTATIN CA 10 MG TABLET (FP) PO SCH (21:25)
[2017-11-14] MEDS: LEVOTHYROXINE NA 25 MCG TABLET (FP) PO SCH (06:21)
--- NOTE | 2017-11-14 09:30 | PN ---
Progress Note, Physician - Current Medication List Current Medications: Active Medications Amlodipine Besylate (Norvasc -) 5 mg PO DAILY [facility] Last Admin: 11/13/17 21:25 Dose: 5 mg Febuxostat (Uloric -) 80 mg PO DAILY [facility] Last Admin: 11/13/17 11:05 Dose: 80 mg Furosemide (Lasix -) 40 mg PO DAILY [facility] Last Admin: 11/13/17 09:29 Dose: 40 mg Levetiracetam (Keppra -) 500 mg PO BID [facility] Last Admin: 11/13/17 21:25 Dose: 500 mg Levothyroxine Sodium (Synthroid -) 25 mcg PO DAILY@0700 [facility] Last Admin: 11/14/17 06:21 Dose: 25 mcg Lisinopril (Prinivil) 40 mg PO DAILY [facility] Last Admin: 11/13/17 09:28 Dose: 40 mg Metoprolol Succinate (Toprol Xl -) 50 mg PO DAILY [facility] Last Admin: 11/13/17 21:25 Dose: 50 mg Pantoprazole Sodium (Protonix -) 20 mg PO DAILY [facility] Last Admin: 11/13/17 09:28 Dose: 20 mg Polyethylene Glycol (Miralax (For Daily Use) -) 17 gm PO DAILY [facility] Last Admin: 11/13/17 09:31 Dose: Not Given Rosuvastatin Calcium (Crestor -) 10 mg PO HS [facility] Last Admin: 11/13/17 21:25 Dose: 10 mg Tamsulosin HCl (Flomax -) 0.4 mg PO DAILY@0830 [facility] Last Admin: 11/13/17 09:28 Dose: 0.4 mg - Objective Vital Signs: Vital Signs Temperature 98.4 F 11/14/17 06:00 Pulse Rate 61 11/14/17 06:00 Respiratory Rate 17 11/14/17 09:00 Blood Pressure 111/53 11/14/17 06:00 O2 Sat by Pulse Oximetry (%) 98 11/14/17 09:00 Cardiovascular: Yes: S1, S2 Respiratory: Yes: Regular, CTA Bilaterally Gastrointestinal: Yes: Normal Bowel Sounds, Soft Labs: CBC, BMP 11/13/17 05:55 11/13/17 05:55 INR, PTT INR 1.34 (0.82-1.09) H 11/07/17 05:00 Problem List - Problems (1) Anemia requiring transfusions Code(s): D64.9 - ANEMIA, UNSPECIFIED (2) CHF (congestive heart failure) Code(s): I50.9 - HEART FAILURE, UNSPECIFIED (3) Afib Code(s): I48.91 - UNSPECIFIED ATRIAL FIBRILLATION Qualifiers: Atrial fibrillation type: paroxysmal Qualified Code(s): I48.0 - Paroxysmal atrial fibrillation (4) CAD (coronary artery disease) Code(s): I25.10 - ATHSCL HEART DISEASE OF [place] CORONARY ARTERY W/O ANG PCTRS (5) Seizure disorder Code(s): G40.909 - EPILEPSY, UNSP, NOT INTRACTABLE, WITHOUT STATUS EPILEPTICUS Assessment/Plan - Problems (1) Anemia requiring transfusions Assessment/Plan: s/p EGD s/p prbc monitor h/h if < 8 will tranfuse Code(s): D64.9 - ANEMIA, UNSPECIFIED (2) Acute on chronic systolic congestive heart failure Assessment/Plan: echo done on lisinopril and lasix Code(s): I50.23 - ACUTE ON CHRONIC SYSTOLIC (CONGESTIVE) HEART FAILURE (3) Afib Assessment/Plan: not on AC bc prior history of gib Code(s): I48.91 - UNSPECIFIED ATRIAL FIBRILLATION Qualifiers: Atrial fibrillation type: paroxysmal Qualified Code(s): I48.0 - Paroxysmal atrial fibrillation (4) Seizure disorder Assessment/Plan: started on keprra Code(s): G40.909 - EPILEPSY, UNSP, NOT INTRACTABLE, WITHOUT STATUS EPILEPTICUS (5) Hypothyroid Assessment/Plan: started on synthroid thyroid studies noted Code(s): E03.9 - HYPOTHYROIDISM, UNSPECIFIED
[2017-11-14] MEDS ORDERED: PT OWN MED DRAWER 7, Y5N ONE ×2 (09:31→21:15)
[2017-11-14] MEDS: LISINOPRIL 20 MG TABLET (FP) PO SCH (09:36)
[2017-11-14] MEDS: PANTOPRAZOLE 20 MG TABLET (FP) PO SCH (09:37)
[2017-11-14] MEDS: FUROSEMIDE 40 MG TABLET (FP) PO SCH (09:37)
[2017-11-14] MEDS: TAMSULOSIN HCL 0.4 MG CAP.ER.24H (FP) PO SCH (09:37)
[2017-11-14] MEDS: amLODIPine BESYLATE 5 MG TABLET (FP) PO SCH (09:38)
[2017-11-14] MEDS: FEBUXOSTAT 80 MG TAB PO SCH (09:38)
[2017-11-14] MEDS: levETIRAcetam 500 MG TABLET (FP) PO SCH ×2 (09:38→21:23)
[2017-11-14 10:57] LABS: BASO % 0.6 % (0-2.0); EOS % 1.3 % (0-4.5); HEMATOCRIT 24.5 % (35.4-49); HEMOGLOBIN 7.8 GM/dL (11.7-16.9); LYMPH % 22.6 % (8-40); MCH 27.1 pg (25.7-33.7); MCHC 31.9 g/dl (32.0-35.9); MEAN CELL VOLUME 84.8 fl (80-96); MEAN PLT VOLUME 7.5 fl (7.5-11.1); MONO % 6.9 % (3.8-10.2); NEUT % 68.6 % (42.8-82.8); PLATELET COUNT 121 K/MM3 (134-434); RBC 2.89 M/mm3 (4.00-5.60); RDW 17.8 % (11.9-15.9); WHITE BLOOD COUNT 6.7 K/mm3 (4.0-10.0)
[2017-11-14 11:14] LABS: CHLORIDE 94 mmol/L (98-107); POTASSIUM 4.1 mmol/L (3.5-5.1); SODIUM 138 mmol/L (136-145)
[2017-11-14 11:52] LABS: ANION GAP 6 (8-16); BLOOD UREA NITROGEN 37 mg/dL (7-18); CALCIUM 7.9 mg/dL (8.5-10.1); CO2 38 mmol/L (21-32); CREATININE 1.5 mg/dL (0.7-1.3); GLUCOSE,RANDOM 137 mg/dL (74-106)
[2017-11-14 14:14] LABS: HGB SOLUBILITY Negative (Negative); Hgb A 97.9 % (96.4-98.8); Hgb C 0 % (0.0); Hgb F 0 % (0.0-2.0); Hgb S 0 % (0.0)
[2017-11-14] MEDS: POLYETHYLENE GLYCOL 3350 119 GM BTL PO SCH (15:15)
--- NOTE | 2017-11-14 20:13 | PN ---
Progress Note (short form) - Note Progress Note: CC: seizure S: no cp, palps, sob, dizziness. started on metoprolol yesterday after heart rate began trending up slightly on synthroid. cards: Dr. Beckman? Current Medications Amlodipine Besylate (Norvasc -) 5 mg PO DAILY [facility] Last Admin: 11/14/17 09:38 Dose: 5 mg Febuxostat (Uloric -) 80 mg PO DAILY [facility] Last Admin: 11/14/17 09:38 Dose: 80 mg Furosemide (Lasix -) 40 mg PO DAILY [facility] Last Admin: 11/14/17 09:37 Dose: 40 mg Levetiracetam (Keppra -) 500 mg PO BID [facility] Last Admin: 11/14/17 09:38 Dose: 500 mg Levothyroxine Sodium (Synthroid -) 25 mcg PO DAILY@0700 [facility] Last Admin: 11/14/17 06:21 Dose: 25 mcg Lisinopril (Prinivil) 40 mg PO DAILY [facility] Last Admin: 11/14/17 09:36 Dose: 40 mg Metoprolol Succinate (Toprol Xl -) 50 mg PO DAILY [facility] Last Admin: 11/14/17 09:38 Dose: 50 mg Pantoprazole Sodium (Protonix -) 20 mg PO DAILY [facility] Last Admin: 11/14/17 09:37 Dose: 20 mg Polyethylene Glycol (Miralax (For Daily Use) -) 17 gm PO DAILY [facility] Last Admin: 11/14/17 15:15 Dose: Not Given Rosuvastatin Calcium (Crestor -) 10 mg PO [facility] Last Admin: 11/13/17 21:25 Dose: 10 mg Tamsulosin HCl (Flomax -) 0.4 mg PO DAILY@0830 [facility] Last Admin: 11/14/17 09:37 Dose: 0.4 mg Vital Signs - 24 hr 11/13/17 11/14/17 11/14/17 21:00 00:00 02:00 Temperature 98.4 F 98.5 F Pulse Rate 64 58 L Respiratory 20 21 21 Rate Blood Pressure 126/62 115/59 O2 Sat by Pulse 98 Oximetry (%) 11/14/17 11/14/17 11/14/17 04:00 06:00 09:00 Temperature 98.4 F Pulse Rate 59 L 61 Respiratory 21 17 17 Rate Blood Pressure 119/67 111/53 O2 Sat by Pulse 98 Oximetry (%) 11/14/17 11/14/17 11/14/17 10:00 14:00 18:00 Temperature 98.6 F Pulse Rate 64 62 64 Respiratory 22 21 18 Rate Blood Pressure 100/45 115/66 118/55 O2 Sat by Pulse Oximetry (%) 11/14/17 20:08 Temperature Pulse Rate Respiratory 18 Rate Blood Pressure O2 Sat by Pulse 98 Oximetry (%) Intake & Output 11/12/17 11/13/17 11/14/17 11/15/17 07:59 07:59 07:59 07:59 Intake Total 0743 317 5098 280 Output Total 1125 1600 1500 240 Balance 35 -880 -200 40 Weight 203 lb 12.8 oz 202 lb 6.4 oz nad, calm jvd at clavicle, neck supple bibasilar rales, nl effort rrr nl s1, s2 2/6 sys murmur at apex. + bs soft nt nd, no hsm no le edema alert and oriented no jaundice, diaphoresis CBC, BMP 11/14/17 10:00 11/14/17 10:00 tele: afib rates 50s-60's ekg: afib, svr (52 bpm). no acute ischemic changes. Echo 10/2017: nl lv size/fn. 1+ rve. nl rv fn. mod brie. mild-mod ar/mr. mod- sev tr. Echo 07/2015 [place] (Definity contrast study): normal left ventricular size. overall moderate decreased left ventricular systolic function (diffuse); ejection fraction = 43 % moderate concentric left ventricular hypertrophy probable mild right ventricular dilatation. probable mild decreased right ventricular function mild to moderate mitral regurgitation mild tricuspid regurgitation mild pulmonary hypertension ascending aorta dilatation L/RHC 07/2015 ([place]): Right-Sided Pressures are Increased, Mild Pulmonary Hypertension (pa mean 30), PCW/LVEDP is increased- 18 diffuse non-obstructive CAD (worst 50-60% RCA) +moderate systolic LV Dysfunction ~EF 35% mibi 06/2015: lvef 33%, no defects but +tid c/w high risk study ASSESSMENT/PLAN 77yo with hx of cmpathy/systolic chf with severely reduced lvef, pafib, cad s/ p remote pci (2010 per pt), htn, hld, ckd (bline cr? ~ 1.8-2.0), possible hx of CVA? (residual BL motor weakness), seizure who p/w seizure, ER course notable for hgb of 4.0. anemia (hgb 4.0): - s/p transfusions here - Patient endorses prior hx of GIB. States last bleed was 3 weeks ago --> was hospitalized at [facility] and transfused. - scopes done 11/07, no clear abnormalities, but pathology c/w chronic gastritis and severe acute and chronic duodenitis - also with thrombocytopenia since 11/09, heme following. - treatment per heme, critical care Seizure - known hx. neuro following - no pathologic bradyarrhythmias or ventricular arrhythmias noted thus far on tele monitoring Permanent Afib - [place] [facility] was d/c on eliquis and asa. AC not on recent med list --> per patient, was subsequently stopped due to hx of prior GIB. - has not followed up in our office since 2015. - con't to hold AC/anti-platelets in setting of profound anemia and new thrombocytopenia. - rates increased here after starting synthroid (bradycardia 2/2 thyroid?). had been off carvedilol 6.25 bid at home--not likely to have much chronotropic effect at this dose. given EF normal, will change to toprol for better HR control properties. prior h/o reversible LV myopathy ? from tachycardia. - should have aggressive HR control to avoid recurrent systolic dysfunction. - needs outpt cardio f/u chronic systolic HF, echo here shows normalization of cardiac function - h/o nonischemic CMP 2015 (1VD only on cath, diffuse/moderate LV hypo then - ? if LV systolic dysfunction was 2/2 tachymyopathy at that time. Repeat echo here shows normalization of cardiac function despite being off optimal HF regimen. - BB (metoprolol) as above - con't lisinopril. - aggressive AF rate control indicated here. - no sob. CXR here with ? congestion per dr escobar review. s/p lasix 40 mg IV qd on 11/04-11/09, 11/09: Cr stable. changed to po lasix (outpatient dose). - CXR 11/12: no chf findings. + ATX. - continue same mgmt chronic CAD - hx prior PCI s/p (+) MPI at [facility]. - s/p cardiac cath 2015 with non-obstructive CAD. - off anti-platelets 2/2 prior hx of GIB. here with profound anemia, con't to hold. - statin not listed on outpatient med list. previously on crestor 10 mg/day, resumed here. slight uptrend in lft's --> will decrease dose. - needs outpt cardio f/u htn - norvasc added here - 11/13 starting metoprolol as mentioned above . - 11/14 bp trending down on metoprolol will decrease norasc dose. thyroid abnormalities - per pmd. started on synthroid here
[2017-11-14] MEDS: ROSUVASTATIN CA 10 MG TABLET (FP) PO SCH (21:23)
[2017-11-15] MEDS: LEVOTHYROXINE NA 25 MCG TABLET (FP) PO SCH (06:48)
--- NOTE | 2017-11-15 08:42 | PN ---
Progress Note, Physician History of Present Illness: 77yM with PMH DM, HTN, CAD, CHF/LV systolic dysfunction, PAfib, pulmonary HTN, CVA presented to the ED with seizure like activity. - Current Medication List Current Medications: Active Medications Amlodipine Besylate (Norvasc -) 2.5 mg PO DAILY@2200 [facility] Febuxostat (Uloric -) 80 mg PO DAILY [facility] Last Admin: 11/14/17 09:38 Dose: 80 mg Furosemide (Lasix -) 40 mg PO DAILY [facility] Last Admin: 11/14/17 09:37 Dose: 40 mg Levetiracetam (Keppra -) 500 mg PO BID [facility] Last Admin: 11/14/17 21:23 Dose: 500 mg Levothyroxine Sodium (Synthroid -) 25 mcg PO DAILY@0700 [facility] Last Admin: 11/15/17 06:48 Dose: 25 mcg Lisinopril (Prinivil) 40 mg PO DAILY [facility] Last Admin: 11/14/17 09:36 Dose: 40 mg Metoprolol Succinate (Toprol Xl -) 50 mg PO DAILY [facility] Last Admin: 11/14/17 09:38 Dose: 50 mg Pantoprazole Sodium (Protonix -) 20 mg PO DAILY [facility] Last Admin: 11/14/17 09:37 Dose: 20 mg Polyethylene Glycol (Miralax (For Daily Use) -) 17 gm PO DAILY [facility] Last Admin: 11/14/17 15:15 Dose: Not Given Rosuvastatin Calcium (Crestor -) 5 mg PO [facility] Tamsulosin HCl (Flomax -) 0.4 mg PO DAILY@0830 [facility] Last Admin: 11/14/17 09:37 Dose: 0.4 mg - Objective Vital Signs: Vital Signs Temperature 98.2 F 11/15/17 08:26 Pulse Rate 66 11/15/17 08:26 Respiratory Rate 16 11/15/17 08:26 Blood Pressure 126/80 11/15/17 08:26 O2 Sat by Pulse Oximetry (%) 98 11/14/17 20:49 Cardiovascular: Yes: Regular Rate and Rhythm Respiratory: Yes: Regular, CTA Bilaterally Gastrointestinal: Yes: Normal Bowel Sounds, Soft. No: Tenderness Edema: No Labs: CBC, BMP 11/14/17 10:00 11/14/17 10:00 INR, PTT INR 1.34 (0.82-1.09) H 11/07/17 05:00 Problem List - Problems (1) Anemia requiring transfusions Code(s): D64.9 - ANEMIA, UNSPECIFIED (2) CHF (congestive heart failure) Code(s): I50.9 - HEART FAILURE, UNSPECIFIED (3) Afib Code(s): I48.91 - UNSPECIFIED ATRIAL FIBRILLATION Qualifiers: Atrial fibrillation type: paroxysmal Qualified Code(s): I48.0 - Paroxysmal atrial fibrillation (4) CAD (coronary artery disease) Code(s): I25.10 - ATHSCL HEART DISEASE OF [place] CORONARY ARTERY W/O ANG PCTRS (5) Seizure disorder Code(s): G40.909 - EPILEPSY, UNSP, NOT INTRACTABLE, WITHOUT STATUS EPILEPTICUS Assessment/Plan - Problems (1) Anemia requiring transfusions Assessment/Plan: s/p EGD s/p prbc monitor h/h if < 8 will tranfuse Code(s): D64.9 - ANEMIA, UNSPECIFIED (2) Acute on chronic systolic congestive heart failure Assessment/Plan: echo done on lisinopril and lasix Code(s): I50.23 - ACUTE ON CHRONIC SYSTOLIC (CONGESTIVE) HEART FAILURE (3) Afib Assessment/Plan: not on AC bc prior history of gib Code(s): I48.91 - UNSPECIFIED ATRIAL FIBRILLATION Qualifiers: Atrial fibrillation type: paroxysmal Qualified Code(s): I48.0 - Paroxysmal atrial fibrillation (4) Seizure disorder Assessment/Plan: started on keprra Code(s): G40.909 - EPILEPSY, UNSP, NOT INTRACTABLE, WITHOUT STATUS EPILEPTICUS (5) Hypothyroid Assessment/Plan: started on synthroid thyroid studies noted Code(s): E03.9 - HYPOTHYROIDISM, UNSPECIFIED
[2017-11-15] MEDS ORDERED: PT OWN MED DRAWER 7, Y5N ONE (09:13)
[2017-11-15] MEDS: levETIRAcetam 500 MG TABLET (FP) PO SCH ×2 (09:39→22:07)
[2017-11-15] MEDS: PANTOPRAZOLE 20 MG TABLET (FP) PO SCH (09:39)
[2017-11-15] MEDS: FUROSEMIDE 40 MG TABLET (FP) PO SCH (09:39)
[2017-11-15] MEDS: TAMSULOSIN HCL 0.4 MG CAP.ER.24H (FP) PO SCH (09:39)
[2017-11-15] MEDS: LISINOPRIL 20 MG TABLET (FP) PO SCH (09:39)
[2017-11-15] MEDS: POLYETHYLENE GLYCOL 3350 119 GM BTL PO SCH (09:39)
[2017-11-15] MEDS: FEBUXOSTAT 80 MG TAB PO SCH (09:40)
[2017-11-15 09:49] LABS: BASO % 0.3 % (0-2.0); EOS % 1.4 % (0-4.5); HEMATOCRIT 24.7 % (35.4-49); HEMOGLOBIN 7.8 GM/dL (11.7-16.9); LYMPH % 21.5 % (8-40); MCH 26.8 pg (25.7-33.7); MCHC 31.7 g/dl (32.0-35.9); MEAN CELL VOLUME 84.6 fl (80-96); MEAN PLT VOLUME 7.5 fl (7.5-11.1); MONO % 7.6 % (3.8-10.2); NEUT % 69.2 % (42.8-82.8); PLATELET COUNT 132 K/MM3 (134-434); RBC 2.92 M/mm3 (4.00-5.60); RDW 17.9 % (11.9-15.9); WHITE BLOOD COUNT 6.8 K/mm3 (4.0-10.0)
[2017-11-15 10:24] LABS: BLOOD UREA NITROGEN 39 mg/dL (7-18); CHLORIDE 99 mmol/L (98-107); POTASSIUM 4.5 mmol/L (3.5-5.1); SODIUM 140 mmol/L (136-145)
[2017-11-15 11:42] LABS: ALBUMIN 2.7 g/dl (3.4-5.0); ALK PHOS 91 U/L (45-117); ANION GAP 2 (8-16); BILIRUBIN,TOTAL 0.7 mg/dL (0.2-1.0); CALCIUM 8.4 mg/dL (8.5-10.1); CO2 39 mmol/L (21-32); CREATININE 1.5 mg/dL (0.7-1.3); GLUCOSE,RANDOM 94 mg/dL (74-106); SGOT/AST 64 U/L (15-37); SGPT/ALT 39 U/L (12-78); TOT PROT 6.6 g/dl (6.4-8.2)
[2017-11-15] MEDS: ROSUVASTATIN CA 5 MG TABLET (FP) PO SCH (22:07)
[2017-11-15] MEDS: amLODIPine BESYLATE 2.5 MG TABLET (FP) PO SCH (22:07)
[2017-11-16] MEDS: LEVOTHYROXINE NA 25 MCG TABLET (FP) PO SCH (06:06)
--- NOTE | 2017-11-16 09:19 | PN ---
Progress Note, Physician History of Present Illness: 77yM with PMH DM, HTN, CAD, CHF/LV systolic dysfunction, PAfib, pulmonary HTN, CVA presented to the ED with seizure like activity. - Current Medication List Current Medications: Active Medications Amlodipine Besylate (Norvasc -) 2.5 mg PO DAILY@2200 [facility] Last Admin: 11/15/17 22:07 Dose: 2.5 mg Febuxostat (Uloric -) 80 mg PO DAILY [facility] Last Admin: 11/15/17 09:40 Dose: 80 mg Furosemide (Lasix -) 40 mg PO DAILY [facility] Last Admin: 11/15/17 09:39 Dose: 40 mg Levetiracetam (Keppra -) 500 mg PO BID [facility] Last Admin: 11/15/17 22:07 Dose: 500 mg Levothyroxine Sodium (Synthroid -) 25 mcg PO DAILY@0700 [facility] Last Admin: 11/16/17 06:06 Dose: 25 mcg Lisinopril (Prinivil) 40 mg PO DAILY [facility] Last Admin: 11/15/17 09:39 Dose: 40 mg Metoprolol Succinate (Toprol Xl -) 50 mg PO DAILY [facility] Last Admin: 11/15/17 09:39 Dose: 50 mg Pantoprazole Sodium (Protonix -) 20 mg PO DAILY [facility] Last Admin: 11/15/17 09:39 Dose: 20 mg Polyethylene Glycol (Miralax (For Daily Use) -) 17 gm PO DAILY [facility] Last Admin: 11/15/17 09:39 Dose: 17 grams Rosuvastatin Calcium (Crestor -) 5 mg PO HS [facility] Last Admin: 11/15/17 22:07 Dose: 5 mg Tamsulosin HCl (Flomax -) 0.4 mg PO DAILY@0830 [facility] Last Admin: 11/15/17 09:39 Dose: 0.4 mg - Objective Vital Signs: Vital Signs Temperature 98.1 F 11/16/17 05:38 Pulse Rate 64 11/16/17 05:38 Respiratory Rate 18 11/16/17 05:38 Blood Pressure 123/64 11/16/17 05:38 O2 Sat by Pulse Oximetry (%) 98 11/15/17 21:00 Cardiovascular: Yes: S1, S2 Respiratory: Yes: CTA Bilaterally Gastrointestinal: Yes: Normal Bowel Sounds, Soft Labs: CBC, BMP 11/15/17 09:30 11/15/17 09:30 INR, PTT INR 1.34 (0.82-1.09) H 11/07/17 05:00 Problem List - Problems (1) Anemia requiring transfusions Code(s): D64.9 - ANEMIA, UNSPECIFIED (2) CHF (congestive heart failure) Code(s): I50.9 - HEART FAILURE, UNSPECIFIED (3) Afib Code(s): I48.91 - UNSPECIFIED ATRIAL FIBRILLATION Qualifiers: Atrial fibrillation type: paroxysmal Qualified Code(s): I48.0 - Paroxysmal atrial fibrillation (4) CAD (coronary artery disease) Code(s): I25.10 - ATHSCL HEART DISEASE OF [place] CORONARY ARTERY W/O ANG PCTRS (5) Seizure disorder Code(s): G40.909 - EPILEPSY, UNSP, NOT INTRACTABLE, WITHOUT STATUS EPILEPTICUS Assessment/Plan - Problems (1) Anemia requiring transfusions Assessment/Plan: s/p EGD s/p prbc -await cbc Code(s): D64.9 - ANEMIA, UNSPECIFIED (2) Acute on chronic systolic congestive heart failure Assessment/Plan: on lisinopril and lasix Code(s): I50.23 - ACUTE ON CHRONIC SYSTOLIC (CONGESTIVE) HEART FAILURE (3) Afib Assessment/Plan: not on AC bc prior history of gib Code(s): I48.91 - UNSPECIFIED ATRIAL FIBRILLATION Qualifiers: Atrial fibrillation type: paroxysmal Qualified Code(s): I48.0 - Paroxysmal atrial fibrillation (4) Seizure disorder Assessment/Plan: started on keprra Code(s): G40.909 - EPILEPSY, UNSP, NOT INTRACTABLE, WITHOUT STATUS EPILEPTICUS (5) Hypothyroid Assessment/Plan: started on synthroid thyroid studies noted Code(s): E03.9 - HYPOTHYROIDISM, UNSPECIFIED
[2017-11-16] MEDS ORDERED: PT OWN MED DRAWER 7, Y5N ONE (09:44)
[2017-11-16] MEDS: LISINOPRIL 20 MG TABLET (FP) PO SCH (09:45)
[2017-11-16] MEDS: levETIRAcetam 500 MG TABLET (FP) PO SCH ×2 (09:45→22:07)
[2017-11-16] MEDS: PANTOPRAZOLE 20 MG TABLET (FP) PO SCH (09:45)
[2017-11-16] MEDS: FUROSEMIDE 40 MG TABLET (FP) PO SCH (09:45)
[2017-11-16] MEDS: TAMSULOSIN HCL 0.4 MG CAP.ER.24H (FP) PO SCH (09:45)
[2017-11-16] MEDS: POLYETHYLENE GLYCOL 3350 119 GM BTL PO SCH (09:47)
[2017-11-16] MEDS: FEBUXOSTAT 80 MG TAB PO SCH (09:47)
[2017-11-16 10:17] LABS: BASO % 0.5 % (0-2.0); EOS % 1.4 % (0-4.5); HEMATOCRIT 27.7 % (35.4-49); LYMPH % 25.3 % (8-40); MCH 27.7 pg (25.7-33.7); MCHC 32.6 g/dl (32.0-35.9); MEAN CELL VOLUME 84.9 fl (80-96); MEAN PLT VOLUME 7.6 fl (7.5-11.1); MONO % 7.9 % (3.8-10.2); NEUT % 64.9 % (42.8-82.8); PLATELET COUNT 132 K/MM3 (134-434); RBC 3.26 M/mm3 (4.00-5.60); RDW 16.7 % (11.9-15.9); WHITE BLOOD COUNT 6.4 K/mm3 (4.0-10.0)
[2017-11-16 10:39] LABS: CHLORIDE 97 mmol/L (98-107); POTASSIUM 4.2 mmol/L (3.5-5.1); SODIUM 139 mmol/L (136-145)
[2017-11-16 11:20] LABS: ALBUMIN 2.7 g/dl (3.4-5.0); ALK PHOS 92 U/L (45-117); ANION GAP 8 (8-16); BILIRUBIN,TOTAL 0.9 mg/dL (0.2-1.0); BLOOD UREA NITROGEN 40 mg/dL (7-18); CO2 34 mmol/L (21-32); CREATININE 1.6 mg/dL (0.7-1.3); GLUCOSE,RANDOM 135 mg/dL (74-106); SGOT/AST 51 U/L (15-37); SGPT/ALT 33 U/L (12-78); TOT PROT 6.5 g/dl (6.4-8.2)
--- NOTE | 2017-11-16 19:07 | PN ---
Progress Note (short form) - Note Progress Note: Patient seen and examined feels well Last Vital Signs Temp Pulse Resp BP Pulse Ox 98.0 F 64 18 112/69 98 11/16/17 18:00 11/16/17 18:00 11/16/17 18:00 11/16/17 18:00 11/15/17 21:00 Cor: RSR, No murmurs, No gallops Lungs: Clear to P&A Abd: Soft, Normal bowel sounds, No organomegaly Ext:No significant edema Abnormal Lab Results 11/16/17 11/16/17 09:28 09:28 RBC 3.26 L Hgb 9.0 L D Hct 27.7 L RDW 16.7 H Plt Count 132 L Chloride 97 L Carbon Dioxide 34 H BUN 40 H Creatinine 1.6 H Random Glucose 135 H D Calcium 8.0 L AST 51 H D Albumin 2.7 L Active Medications Generic Name Dose Route Start Last Admin Trade Name Freq PRN Reason Stop Dose Admin Amlodipine Besylate 2.5 mg 11/15/17 22:00 11/15/17 22:07 Norvasc - PO 2.5 mg DAILY@2200 [facility]EL Administration Febuxostat 80 mg 11/05/17 10:00 11/16/17 09:47 Uloric - PO 80 mg DAILY MIC[facility]EL Administration Furosemide 40 mg 11/10/17 10:00 11/16/17 09:45 Lasix - PO 40 mg DAILY [facility]EL Administration Levetiracetam 500 mg 11/10/17 22:00 11/16/17 09:45 Keppra - PO 500 mg BID MICHAEL Administration Levothyroxine Sodium 25 mcg 11/12/17 07:00 11/16/17 06:06 Synthroid - PO 25 mcg DAILY@0700 MICHAEL Administration Lisinopril 40 mg 11/05/17 10:00 11/16/17 09:45 Prinivil PO 40 mg DAILY [facility]EL Administration Metoprolol Succinate 50 mg 11/13/17 20:00 11/16/17 09:47 Toprol Xl - PO 50 mg DAILY MIC[facility]EL Administration Pantoprazole Sodium 20 mg 11/05/17 10:00 11/16/17 09:45 Protonix - PO 20 mg DAILY [facility] Administration Polyethylene Glycol 17 gm 11/10/17 18:45 11/16/17 09:47 Miralax (For Daily Use) - PO 17 grams DAILY [facility] Administration Rosuvastatin Calcium 5 mg 11/15/17 22:00 11/15/17 22:07 Crestor - PO 5 mg HS [facility]EL Administration Tamsulosin HCl 0.4 mg 11/05/17 08:30 11/16/17 09:45 Flomax - PO 0.4 mg DAILY@0830 [facility] Administration A/P 77 y/o patient with anemia:normocytic Hgb --9 Multi-factorial await [facility] GI f/u ?consider capsule/?CTentero send flow/FISH for MDS CKD --might be contributing too, to consider renal , need for JANNA Thrombocytopenia: ?congestive US abdomen, r/o hepato-splenomegaly. r/o infection Hypothyrodism: ?adjustment of dose needed? or to consider repeat in a few days but less likely to drive the Hgb.
[2017-11-16] MEDS: amLODIPine BESYLATE 2.5 MG TABLET (FP) PO SCH (22:07)
[2017-11-16] MEDS: ROSUVASTATIN CA 5 MG TABLET (FP) PO SCH (22:07)
[2017-11-17] MEDS: LEVOTHYROXINE NA 25 MCG TABLET (FP) PO SCH (06:01)
[2017-11-17 07:54] LABS: CHLORIDE 99 mmol/L (98-107); POTASSIUM 4.6 mmol/L (3.5-5.1); SODIUM 137 mmol/L (136-145)
[2017-11-17 08:15] LABS: ALBUMIN 2.7 g/dl (3.4-5.0); ALK PHOS 97 U/L (45-117); ANION GAP 7 (8-16); BILIRUBIN,TOTAL 0.7 mg/dL (0.2-1.0); BLOOD UREA NITROGEN 40 mg/dL (7-18); CO2 31 mmol/L (21-32); CREATININE 1.6 mg/dL (0.7-1.3); GLUCOSE,RANDOM 77 mg/dL (74-106); TOT PROT 6.8 g/dl (6.4-8.2)
[2017-11-17 08:28] LABS: BASO % 0.7 % (0-2.0); EOS % 1.7 % (0-4.5); HEMATOCRIT 26.8 % (35.4-49); HEMOGLOBIN 8.8 GM/dL (11.7-16.9); LYMPH % 23.4 % (8-40); MEAN CELL VOLUME 84.9 fl (80-96); MEAN PLT VOLUME 7.9 fl (7.5-11.1); MONO % 8.4 % (3.8-10.2); NEUT % 65.8 % (42.8-82.8); PLATELET COUNT 140 K/MM3 (134-434); RBC 3.16 M/mm3 (4.00-5.60); RDW 17.1 % (11.9-15.9); WHITE BLOOD COUNT 7.2 K/mm3 (4.0-10.0)
[2017-11-17] MEDS: TAMSULOSIN HCL 0.4 MG CAP.ER.24H (FP) PO SCH (08:30)
[2017-11-17 08:49] LABS: SGOT/AST 58 U/L (15-37)
[2017-11-17 08:50] LABS: SGPT/ALT 35 U/L (12-78)
[2017-11-17] MEDS: levETIRAcetam 500 MG TABLET (FP) PO SCH ×2 (09:05→21:18)
[2017-11-17] MEDS: PANTOPRAZOLE 20 MG TABLET (FP) PO SCH (09:05)
[2017-11-17] MEDS: FUROSEMIDE 40 MG TABLET (FP) PO SCH (09:05)
[2017-11-17] MEDS: POLYETHYLENE GLYCOL 3350 119 GM BTL PO SCH (09:06)
[2017-11-17] MEDS: LISINOPRIL 20 MG TABLET (FP) PO SCH (09:06)
[2017-11-17] MEDS ORDERED: PT OWN MED DRAWER 7, Y5N ONE (09:11)
[2017-11-17] MEDS: FEBUXOSTAT 80 MG TAB PO SCH (09:12)
--- NOTE | 2017-11-17 09:39 | PN ---
Progress Note, Physician History of Present Illness: 77yM with PMH DM, HTN, CAD, CHF/LV systolic dysfunction, PAfib, pulmonary HTN, CVA presented to the ED with seizure like activity. - Current Medication List Current Medications: Active Medications Amlodipine Besylate (Norvasc -) 2.5 mg PO DAILY@2200 [facility] Last Admin: 11/16/17 22:07 Dose: 2.5 mg Febuxostat (Uloric -) 80 mg PO DAILY [facility] Last Admin: 11/17/17 09:12 Dose: 80 mg Furosemide (Lasix -) 40 mg PO DAILY [facility] Last Admin: 11/17/17 09:05 Dose: 40 mg Levetiracetam (Keppra -) 500 mg PO BID [facility] Last Admin: 11/17/17 09:05 Dose: 500 mg Levothyroxine Sodium (Synthroid -) 25 mcg PO DAILY@0700 [facility] Last Admin: 11/17/17 06:01 Dose: 25 mcg Lisinopril (Prinivil) 40 mg PO DAILY [facility] Last Admin: 11/17/17 09:06 Dose: 40 mg Metoprolol Succinate (Toprol Xl -) 50 mg PO DAILY [facility] Last Admin: 11/17/17 09:05 Dose: 50 mg Pantoprazole Sodium (Protonix -) 20 mg PO DAILY [facility] Last Admin: 11/17/17 09:05 Dose: 20 mg Polyethylene Glycol (Miralax (For Daily Use) -) 17 gm PO DAILY [facility] Last Admin: 11/17/17 09:06 Dose: 17 grams Rosuvastatin Calcium (Crestor -) 5 mg PO HS [facility] Last Admin: 11/16/17 22:07 Dose: 5 mg Tamsulosin HCl (Flomax -) 0.4 mg PO DAILY@0830 [facility] Last Admin: 11/17/17 08:30 Dose: 0.4 mg - Objective Vital Signs: Vital Signs Temperature 98.1 F 11/17/17 02:00 Pulse Rate 76 11/17/17 02:00 Respiratory Rate 18 11/17/17 02:00 Blood Pressure 143/76 11/17/17 02:00 O2 Sat by Pulse Oximetry (%) 99 11/16/17 21:00 Cardiovascular: Yes: Regular Rate and Rhythm Respiratory: Yes: Regular, CTA Bilaterally Gastrointestinal: Yes: Normal Bowel Sounds, Soft. No: Tenderness Labs: CBC, BMP 11/17/17 07:35 11/17/17 06:15 INR, PTT INR 1.34 (0.82-1.09) H 11/07/17 05:00 Problem List - Problems (1) Anemia requiring transfusions Code(s): D64.9 - ANEMIA, UNSPECIFIED (2) CHF (congestive heart failure) Code(s): I50.9 - HEART FAILURE, UNSPECIFIED (3) Afib Code(s): I48.91 - UNSPECIFIED ATRIAL FIBRILLATION Qualifiers: Atrial fibrillation type: paroxysmal Qualified Code(s): I48.0 - Paroxysmal atrial fibrillation (4) CAD (coronary artery disease) Code(s): I25.10 - ATHSCL HEART DISEASE OF [place] CORONARY ARTERY W/O ANG PCTRS (5) Seizure disorder Code(s): G40.909 - EPILEPSY, UNSP, NOT INTRACTABLE, WITHOUT STATUS EPILEPTICUS Assessment/Plan - Problems (1) Anemia requiring transfusions Assessment/Plan: s/p EGD s/p prbc -await cbc Code(s): D64.9 - ANEMIA, UNSPECIFIED (2) Acute on chronic systolic congestive heart failure Assessment/Plan: on lisinopril and lasix Code(s): I50.23 - ACUTE ON CHRONIC SYSTOLIC (CONGESTIVE) HEART FAILURE (3) Afib Assessment/Plan: not on AC bc prior history of gib Code(s): I48.91 - UNSPECIFIED ATRIAL FIBRILLATION Qualifiers: Atrial fibrillation type: paroxysmal Qualified Code(s): I48.0 - Paroxysmal atrial fibrillation (4) Seizure disorder Assessment/Plan: started on keprra Code(s): G40.909 - EPILEPSY, UNSP, NOT INTRACTABLE, WITHOUT STATUS EPILEPTICUS (5) Hypothyroid Assessment/Plan: started on synthroid thyroid studies noted Code(s): E03.9 - HYPOTHYROIDISM, UNSPECIFIED
[2017-11-17] MEDS: amLODIPine BESYLATE 2.5 MG TABLET (FP) PO SCH (21:18)
[2017-11-17] MEDS: ROSUVASTATIN CA 5 MG TABLET (FP) PO SCH (21:18)
[2017-11-18] MEDS: LEVOTHYROXINE NA 25 MCG TABLET (FP) PO SCH (05:59)
[2017-11-18] MEDS: TAMSULOSIN HCL 0.4 MG CAP.ER.24H (FP) PO SCH (08:26)
[2017-11-18 10:17] LABS: BASO % 0.5 % (0-2.0); EOS % 1.5 % (0-4.5); HEMATOCRIT 26.5 % (35.4-49); HEMOGLOBIN 8.6 GM/dL (11.7-16.9); LYMPH % 21.1 % (8-40); MCH 27.8 pg (25.7-33.7); MCHC 32.4 g/dl (32.0-35.9); MEAN CELL VOLUME 85.7 fl (80-96); MONO % 7.5 % (3.8-10.2); NEUT % 69.4 % (42.8-82.8); PLATELET COUNT 157 K/MM3 (134-434); RBC 3.09 M/mm3 (4.00-5.60); RDW 17.1 % (11.9-15.9); WHITE BLOOD COUNT 6.2 K/mm3 (4.0-10.0)
[2017-11-18 10:40] LABS: ALBUMIN 2.6 g/dl (3.4-5.0); ANION GAP 5 (8-16); BLOOD UREA NITROGEN 41 mg/dL (7-18); CHLORIDE 98 mmol/L (98-107); CO2 36 mmol/L (21-32); CREATININE 1.8 mg/dL (0.7-1.3); GLUCOSE,RANDOM 117 mg/dL (74-106); POTASSIUM 4.3 mmol/L (3.5-5.1); SGOT/AST 45 U/L (15-37); SGPT/ALT 33 U/L (12-78); SODIUM 139 mmol/L (136-145)
[2017-11-18 10:41] LABS: ALK PHOS 94 U/L (45-117); BILIRUBIN,TOTAL 0.6 mg/dL (0.2-1.0); TOT PROT 6.6 g/dl (6.4-8.2)
[2017-11-18] MEDS: FUROSEMIDE 40 MG TABLET (FP) PO SCH (10:55)
[2017-11-18] MEDS: LISINOPRIL 20 MG TABLET (FP) PO SCH (10:55)
[2017-11-18] MEDS: levETIRAcetam 500 MG TABLET (FP) PO SCH ×2 (10:55→21:06)
[2017-11-18] MEDS: PANTOPRAZOLE 20 MG TABLET (FP) PO SCH (10:55)
--- NOTE | 2017-11-18 10:57 | PN ---
Progress Note, Physician - Current Medication List Current Medications: Active Medications Amlodipine Besylate (Norvasc -) 2.5 mg PO DAILY@2200 [facility] Last Admin: 11/17/17 21:18 Dose: 2.5 mg Febuxostat (Uloric -) 80 mg PO DAILY [facility] Last Admin: 11/17/17 09:12 Dose: 80 mg Furosemide (Lasix -) 40 mg PO DAILY [facility] Last Admin: 11/17/17 09:05 Dose: 40 mg Levetiracetam (Keppra -) 500 mg PO BID [facility] Last Admin: 11/17/17 21:18 Dose: 500 mg Levothyroxine Sodium (Synthroid -) 25 mcg PO DAILY@0700 [facility] Last Admin: 11/18/17 05:59 Dose: 25 mcg Lisinopril (Prinivil) 40 mg PO DAILY [facility] Last Admin: 11/17/17 09:06 Dose: 40 mg Metoprolol Succinate (Toprol Xl -) 50 mg PO DAILY [facility] Last Admin: 11/17/17 09:05 Dose: 50 mg Pantoprazole Sodium (Protonix -) 20 mg PO DAILY [facility] Last Admin: 11/17/17 09:05 Dose: 20 mg Polyethylene Glycol (Miralax (For Daily Use) -) 17 gm PO DAILY [facility] Last Admin: 11/17/17 09:06 Dose: 17 grams Rosuvastatin Calcium (Crestor -) 5 mg PO HS [facility] Last Admin: 11/17/17 21:18 Dose: 5 mg Tamsulosin HCl (Flomax -) 0.4 mg PO DAILY@0830 [facility] Last Admin: 11/18/17 08:26 Dose: 0.4 mg - Objective Vital Signs: Vital Signs Temperature 98.5 F 11/18/17 06:00 Pulse Rate 63 11/18/17 06:00 Respiratory Rate 18 11/18/17 06:00 Blood Pressure 121/61 11/18/17 06:00 O2 Sat by Pulse Oximetry (%) 98 11/17/17 21:00 Cardiovascular: Yes: Regular Rate and Rhythm Respiratory: Yes: Regular, CTA Bilaterally Gastrointestinal: Yes: Normal Bowel Sounds, Soft Labs: CBC, BMP 11/18/17 09:55 11/18/17 09:55 INR, PTT INR 1.34 (0.82-1.09) H 11/07/17 05:00 Problem List - Problems (1) Anemia requiring transfusions Code(s): D64.9 - ANEMIA, UNSPECIFIED (2) CHF (congestive heart failure) Code(s): I50.9 - HEART FAILURE, UNSPECIFIED (3) Afib Code(s): I48.91 - UNSPECIFIED ATRIAL FIBRILLATION Qualifiers: Atrial fibrillation type: paroxysmal Qualified Code(s): I48.0 - Paroxysmal atrial fibrillation (4) CAD (coronary artery disease) Code(s): I25.10 - ATHSCL HEART DISEASE OF [place] CORONARY ARTERY W/O ANG PCTRS (5) Seizure disorder Code(s): G40.909 - EPILEPSY, UNSP, NOT INTRACTABLE, WITHOUT STATUS EPILEPTICUS Assessment/Plan - Problems (1) Anemia requiring transfusions Assessment/Plan: s/p EGD s/p prbc -await cbc Code(s): D64.9 - ANEMIA, UNSPECIFIED (2) Acute on chronic systolic congestive heart failure Assessment/Plan: on lisinopril and lasix Code(s): I50.23 - ACUTE ON CHRONIC SYSTOLIC (CONGESTIVE) HEART FAILURE (3) Afib Assessment/Plan: not on AC bc prior history of gib Code(s): I48.91 - UNSPECIFIED ATRIAL FIBRILLATION Qualifiers: Atrial fibrillation type: paroxysmal Qualified Code(s): I48.0 - Paroxysmal atrial fibrillation (4) Seizure disorder Assessment/Plan: started on keprra Code(s): G40.909 - EPILEPSY, UNSP, NOT INTRACTABLE, WITHOUT STATUS EPILEPTICUS (5) Hypothyroid Assessment/Plan: started on synthroid thyroid studies noted Code(s): E03.9 - HYPOTHYROIDISM, UNSPECIFIED
[2017-11-18] MEDS: FEBUXOSTAT 80 MG TAB PO SCH (10:59)
[2017-11-18] MEDS ORDERED: PT OWN MED DRAWER 7, Y5N ONE (10:59)
[2017-11-18] MEDS: POLYETHYLENE GLYCOL 3350 119 GM BTL PO SCH (11:00)
[2017-11-18] MEDS: ROSUVASTATIN CA 5 MG TABLET (FP) PO SCH (21:06)
[2017-11-18] MEDS: amLODIPine BESYLATE 2.5 MG TABLET (FP) PO SCH (21:06)
[2017-11-19] MEDS: LEVOTHYROXINE NA 25 MCG TABLET (FP) PO SCH (06:08)
[2017-11-19] MEDS: TAMSULOSIN HCL 0.4 MG CAP.ER.24H (FP) PO SCH (08:01)
[2017-11-19] MEDS: levETIRAcetam 500 MG TABLET (FP) PO SCH ×2 (09:04→22:18)
[2017-11-19] MEDS: LISINOPRIL 20 MG TABLET (FP) PO SCH (09:04)
[2017-11-19] MEDS: FEBUXOSTAT 80 MG TAB PO SCH (09:04)
[2017-11-19] MEDS: POLYETHYLENE GLYCOL 3350 119 GM BTL PO SCH (09:04)
[2017-11-19] MEDS: FUROSEMIDE 40 MG TABLET (FP) PO SCH (09:04)
[2017-11-19] MEDS: PANTOPRAZOLE 20 MG TABLET (FP) PO SCH (09:04)
--- NOTE | 2017-11-19 12:23 | PN ---
Progress Note, Physician Chief Complaint: Seizure Anemia History of Present Illness: NAD, in bed Son Adilson at the bedside. H/H improved Did poorly with Physical therapy - Current Medication List Current Medications: Active Medications Amlodipine Besylate (Norvasc -) 2.5 mg PO DAILY@2200 [facility] Last Admin: 11/18/17 21:06 Dose: 2.5 mg Febuxostat (Uloric -) 80 mg PO DAILY [facility] Last Admin: 11/19/17 09:04 Dose: 80 mg Furosemide (Lasix -) 40 mg PO DAILY [facility] Last Admin: 11/19/17 09:04 Dose: 40 mg Levetiracetam (Keppra -) 500 mg PO BID [facility] Last Admin: 11/19/17 09:04 Dose: 500 mg Levothyroxine Sodium (Synthroid -) 25 mcg PO DAILY@0700 [facility] Last Admin: 11/19/17 06:08 Dose: 25 mcg Lisinopril (Prinivil) 40 mg PO DAILY [facility] Last Admin: 11/19/17 09:04 Dose: 40 mg Metoprolol Succinate (Toprol Xl -) 50 mg PO DAILY [facility] Last Admin: 11/19/17 09:04 Dose: 50 mg Pantoprazole Sodium (Protonix -) 20 mg PO DAILY [facility] Last Admin: 11/19/17 09:04 Dose: 20 mg Polyethylene Glycol (Miralax (For Daily Use) -) 17 gm PO DAILY [facility] Last Admin: 11/19/17 09:04 Dose: Not Given Rosuvastatin Calcium (Crestor -) 5 mg PO HS [facility] Last Admin: 11/18/17 21:06 Dose: 5 mg Tamsulosin HCl (Flomax -) 0.4 mg PO DAILY@0830 [facility] Last Admin: 11/19/17 08:01 Dose: 0.4 mg - Objective Vital Signs: Vital Signs Temperature 98.1 F 11/19/17 09:00 Pulse Rate 74 11/19/17 09:00 Respiratory Rate 28 H 11/19/17 09:00 Blood Pressure 246/69 11/19/17 09:00 O2 Sat by Pulse Oximetry (%) 98 11/19/17 09:00 Constitutional: Yes: Well Nourished, No Distress, Calm Cardiovascular: Yes: Regular Rate and Rhythm Respiratory: Yes: Regular Gastrointestinal: Yes: Normal Bowel Sounds, Soft Labs: CBC, BMP 11/18/17 09:55 11/18/17 09:55 INR, PTT INR 1.34 (0.82-1.09) H 11/07/17 05:00 Problem List - Problems (1) Anemia requiring transfusions Assessment/Plan: -H/H improved -Seen by Hematology -Stool Guaiac Negative Code(s): D64.9 - ANEMIA, UNSPECIFIED (2) CHF (congestive heart failure) Assessment/Plan: -low sodium diet -On furosemide 40 mg po daily Code(s): I50.9 - HEART FAILURE, UNSPECIFIED (3) Hypothyroid Assessment/Plan: -started on levothyroxine 25 mcg po daily -Repeat labs in 6-8 weeks with PCP Code(s): E03.9 - HYPOTHYROIDISM, UNSPECIFIED (4) Acute on chronic renal insufficiency Assessment/Plan: -Repeat Cr today at baseline, fluctuating -monitor trend Code(s): N28.9 - DISORDER OF KIDNEY AND URETER, UNSPECIFIED; N18.9 - CHRONIC KIDNEY DISEASE, UNSPECIFIED (5) Seizure disorder Assessment/Plan: -see by Neurology -Follow up with Neurology outpatient Code(s): G40.909 - EPILEPSY, UNSP, NOT INTRACTABLE, WITHOUT STATUS EPILEPTICUS Assessment/Plan see problem list d/c home with [facility]
--- NOTE | 2017-11-19 13:40 | DS ---
Physical Examination Vital Signs: Vital Signs Period Temp Pulse Resp BP Sys/Hair Pulse Ox Last 24 Hr 97.3 F-98.7 F 52-79 20-20 106-145/58-89 95-100 Constitutional: Yes: Well Nourished, No Distress, Calm Cardiovascular: Yes: Regular Rate and Rhythm Respiratory: Yes: Regular Gastrointestinal: Yes: Normal Bowel Sounds, Soft Musculoskeletal: Yes: Muscle Weakness Neurological: Yes: Alert, Oriented ...Motor Strength: WNL (Generalized weakness) Psychiatric: Yes: Alert, Oriented Labs: Laboratory Results - last 24 hr 11/20/17 11/20/17 10:45 10:45 WBC 5.9 RBC 3.02 L Hgb 8.4 L Hct 25.8 L MCV 85.5 MCH 27.8 MCHC 32.6 RDW 17.0 H Plt Count 182 MPV 7.0 L Sodium 137 Potassium 4.0 Chloride 99 Carbon Dioxide 31 Anion Gap 7 L BUN 37 H Creatinine 1.5 H Creat Clearance w eGFR 45.14 Random Glucose 145 H D Calcium 8.1 L Total Bilirubin 0.4 D AST 80 H D ALT 60 D Alkaline Phosphatase 103 Total Protein 6.7 Albumin 2.6 L Discharge Summary Reason For Visit: TRANSFUSION DEPENDENT ANEMIA CHF Current Active Problems Acute duodenitis (Acute) Anemia requiring transfusions (Acute) CHF (congestive heart failure) (Acute) Gastritis (Acute) Hypothyroid (Acute) Hospital Course: This is a 77 year old male with a past medical history significant for HTN, CAD , CHF, seizure disorder presented to the ED after seizure activity at home. As per the ED provider, reported shaking activity of upper extremities and difficulty speaking, speech was unintelligible. She stated this lasted for 90minutes. Upon exam pt reports that he came in because he was having difficulty speaking. He also reports that someone recently discontinued many of his medications. He is unclear but it seems as if he was recently discharged from a SNF. Condition: Stable - Instructions Diet, Activity, Other Instructions: -Low sodium diet -F/U with PCP within 2 weeks -Repeat Thyroid labs in 6-8 weeks -Repeat CBC, CMP in 1 month -F/U with Neurology, Gastroenterology and hematology/oncology within 4 weeks Referrals: Gato Morillo MD [Staff Physician] - Felipe Carrion MD [Staff Physician] - Navya Montes De Oca MD [Non Staff, Medical] - Estefani Juan MD [Staff Physician] - Disposition: VNS/HOME HEALTH CARE - Home Medications Comprehensive Discharge Medication List: Ambulatory Orders Tamsulosin HCl [Flomax -] 0.4 mg PO DAILY 11/20/13 Furosemide 40 mg PO DAILY 07/07/15 Febuxostat [Uloric -] 80 mg PO DAILY 11/05/17 Lisinopril 2 tablet PO DAILY 11/05/17 Omeprazole 20 mg PO DAILY 11/05/17 Furosemide [Lasix -] 40 mg PO DAILY #30 tablet 11/19/17 Levothyroxine [Synthroid -] 25 mcg PO DAILY@0700 #30 tablet 11/19/17 Metoprolol Succinate [Toprol XL -] 50 mg PO DAILY #30 tab.sr.24h 11/19/17 Polyethylene Glycol 3350 [Miralax 119 gm Btl -] 17 gm PO DAILY #1 bottle Rosuvastatin [Crestor -] 5 mg PO HS #30 tablet 11/19/17 levETIRAcetam [Keppra -] 500 mg PO BID #60 tablet 11/19/17
[2017-11-19] MEDS: ROSUVASTATIN CA 5 MG TABLET (FP) PO SCH (22:17)
[2017-11-19] MEDS: amLODIPine BESYLATE 2.5 MG TABLET (FP) PO SCH (22:18)
--- NOTE | 2017-11-19 23:27 | PN ---
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
[2017-11-20] MEDS: LEVOTHYROXINE NA 25 MCG TABLET (FP) PO SCH (06:12)
[2017-11-20] MEDS: TAMSULOSIN HCL 0.4 MG CAP.ER.24H (FP) PO SCH (07:47)
[2017-11-20] MEDS: LISINOPRIL 20 MG TABLET (FP) PO SCH (09:11)
[2017-11-20] MEDS: POLYETHYLENE GLYCOL 3350 119 GM BTL PO SCH (09:11)
[2017-11-20] MEDS: FUROSEMIDE 40 MG TABLET (FP) PO SCH (09:11)
[2017-11-20] MEDS: PANTOPRAZOLE 20 MG TABLET (FP) PO SCH (09:11)
[2017-11-20] MEDS: FEBUXOSTAT 80 MG TAB PO SCH (09:11)
[2017-11-20] MEDS: levETIRAcetam 500 MG TABLET (FP) PO SCH (09:11)
[2017-11-20 10:27] VITALS: TEMP 98.3
[2017-11-20 10:56] LABS: HEMATOCRIT 25.8 % (35.4-49); HEMOGLOBIN 8.4 GM/dL (11.7-16.9); MCH 27.8 pg (25.7-33.7); MCHC 32.6 g/dl (32.0-35.9); MEAN CELL VOLUME 85.5 fl (80-96); PLATELET COUNT 182 K/MM3 (134-434); RBC 3.02 M/mm3 (4.00-5.60); WHITE BLOOD COUNT 5.9 K/mm3 (4.0-10.0)
--- NOTE | 2017-11-20 11:31 | PN ---
Progress Note, Physician Chief Complaint: Seizure Anemia History of Present Illness: NAD, in bed Son Adilson at the bedside. H/H improved Did poorly with Physical therapy - Current Medication List Current Medications: Active Medications Amlodipine Besylate (Norvasc -) 2.5 mg PO DAILY@2200 [facility] Last Admin: 11/19/17 22:18 Dose: 2.5 mg Febuxostat (Uloric -) 80 mg PO DAILY [facility] Last Admin: 11/20/17 09:11 Dose: 80 mg Furosemide (Lasix -) 40 mg PO DAILY [facility] Last Admin: 11/20/17 09:11 Dose: 40 mg Levetiracetam (Keppra -) 500 mg PO BID [facility] Last Admin: 11/20/17 09:11 Dose: 500 mg Levothyroxine Sodium (Synthroid -) 25 mcg PO DAILY@0700 [facility] Last Admin: 11/20/17 06:12 Dose: 25 mcg Lisinopril (Prinivil) 40 mg PO DAILY [facility] Last Admin: 11/20/17 09:11 Dose: 40 mg Metoprolol Succinate (Toprol Xl -) 50 mg PO DAILY [facility] Last Admin: 11/20/17 09:11 Dose: 50 mg Pantoprazole Sodium (Protonix -) 20 mg PO DAILY [facility] Last Admin: 11/20/17 09:11 Dose: 20 mg Polyethylene Glycol (Miralax (For Daily Use) -) 17 gm PO DAILY [facility] Last Admin: 11/20/17 09:11 Dose: Not Given Rosuvastatin Calcium (Crestor -) 5 mg PO HS [facility] Last Admin: 11/19/17 22:17 Dose: 5 mg Tamsulosin HCl (Flomax -) 0.4 mg PO DAILY@0830 [facility] Last Admin: 11/20/17 07:47 Dose: 0.4 mg - Objective Vital Signs: Vital Signs Temperature 98.3 F 11/20/17 09:00 Pulse Rate 71 11/20/17 09:00 Respiratory Rate 20 11/20/17 09:00 Blood Pressure 131/89 11/20/17 09:00 O2 Sat by Pulse Oximetry (%) 96 11/20/17 09:00 Constitutional: Yes: Well Nourished, No Distress, Calm Labs: CBC, BMP 11/20/17 10:45 INR, PTT INR 1.34 (0.82-1.09) H 11/07/17 05:00 Problem List - Problems (1) Anemia requiring transfusions Assessment/Plan: -H/H improved -Seen by Hematology -Stool Guaiac Negative -Follow up with GI outpatient Code(s): D64.9 - ANEMIA, UNSPECIFIED (2) CHF (congestive heart failure) Assessment/Plan: -low sodium diet -On furosemide 40 mg po daily Code(s): I50.9 - HEART FAILURE, UNSPECIFIED (3) Hypothyroid Assessment/Plan: -started on levothyroxine 25 mcg po daily -Repeat labs in 6-8 weeks with PCP Code(s): E03.9 - HYPOTHYROIDISM, UNSPECIFIED (4) Acute on chronic renal insufficiency Assessment/Plan: -Repeat Cr today at baseline, fluctuating -monitor trend Code(s): N28.9 - DISORDER OF KIDNEY AND URETER, UNSPECIFIED; N18.9 - CHRONIC KIDNEY DISEASE, UNSPECIFIED (5) Seizure disorder Assessment/Plan: -see by Neurology -Follow up with Neurology outpatient Code(s): G40.909 - EPILEPSY, UNSP, NOT INTRACTABLE, WITHOUT STATUS EPILEPTICUS Assessment/Plan see problem list d/c home with VNS
[2017-11-20 11:39] LABS: CHLORIDE 99 mmol/L (98-107); SODIUM 137 mmol/L (136-145)
[2017-11-20 11:47] LABS: ALBUMIN 2.6 g/dl (3.4-5.0); ALK PHOS 103 U/L (45-117); ANION GAP 7 (8-16); BILIRUBIN,TOTAL 0.4 mg/dL (0.2-1.0); BLOOD UREA NITROGEN 37 mg/dL (7-18); CALCIUM 8.1 mg/dL (8.5-10.1); CO2 31 mmol/L (21-32); CREATININE 1.5 mg/dL (0.7-1.3); GLUCOSE,RANDOM 145 mg/dL (74-106); SGOT/AST 80 U/L (15-37); SGPT/ALT 60 U/L (12-78); TOT PROT 6.7 g/dl (6.4-8.2)
[2017-11-20 14:55] VITALS: BP 121/66; PULSE 68
--- NOTE | 2017-11-20 15:40 | CONSULT ---
Consult Consult Specialty:: Nephrology Reason for Consultation:: CKD - History of Present Illness Chief Complaint: initially presented with seizure History of Present Illness: Pt is a 77 year old male with pmhx of CKD, CHF, CVA, a-fib, and pulm HTN who initially presented with seizure. He was found to have elevated creatinine and I was called to evaluate him. He denies dysuria or hematuria. He denies shortness of breath. He is awake and appears comfortable. He says that he will likely be discharged today. He says he has seen Dr Lakhani in the office however has not followed in some time. 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) History of Recent Travel: No Home Medications - Allergies Allergies/Adverse Reactions: Allergies Allergy/AdvReac Type Severity Reaction Status Date / Time No Known Allergies Allergy Verified 11/04/17 21:06 - Home Medications Home Medications: Ambulatory Orders Tamsulosin HCl [Flomax -] 0.4 mg PO DAILY 11/20/13 Furosemide 40 mg PO DAILY 07/07/15 Febuxostat [Uloric -] 80 mg PO DAILY 11/05/17 Lisinopril 2 tablet PO DAILY 11/05/17 Omeprazole 20 mg PO DAILY 11/05/17 Furosemide [Lasix -] 40 mg PO DAILY #30 tablet 11/19/17 Levothyroxine [Synthroid -] 25 mcg PO DAILY@0700 #30 tablet 11/19/17 Metoprolol Succinate [Toprol XL -] 50 mg PO DAILY #30 tab.sr.24h 11/19/17 Polyethylene Glycol 3350 [Miralax 119 gm Btl -] 17 gm PO DAILY #1 bottle Rosuvastatin [Crestor -] 5 mg PO HS #30 tablet 11/19/17 levETIRAcetam [Keppra -] 500 mg PO BID #60 tablet 11/19/17 Family Disease History - Family Disease History Family History: Denies Review of Systems - Review of Systems Constitutional: reports: No Symptoms Eyes: reports: No Symptoms HENT: reports: No Symptoms Neck: reports: No Symptoms Cardiovascular: reports: No Symptoms Respiratory: reports: No Symptoms Gastrointestinal: reports: No Symptoms Genitourinary: reports: No Symptoms Integumentary: reports: No Symptoms Neurological: reports: No Symptoms Endocrine: reports: No Symptoms Hematology/Lymphatic: reports: No Symptoms Psychiatric: reports: No Symptoms Physical Exam Vital Signs: Vital Signs Temperature 98.3 F 11/20/17 14:54 Pulse Rate 68 11/20/17 14:54 Respiratory Rate 20 11/20/17 14:54 Blood Pressure 121/66 11/20/17 14:54 O2 Sat by Pulse Oximetry (%) 96 11/20/17 09:00 Constitutional: Yes: Calm Eyes: Yes: Conjunctiva Clear HENT: Yes: Atraumatic Cardiovascular: Yes: S1, S2 Respiratory: Yes: CTA Bilaterally Gastrointestinal: Yes: Normal Bowel Sounds Renal/: Yes: WNL Musculoskeletal: Yes: WNL Edema: No Neurological: Yes: Oriented Psychiatric: Yes: Oriented Labs: CBC, BMP 11/20/17 10:45 11/20/17 10:45 Imaging - Results Chest X-ray: Report Reviewed Problem List - Problems (1) Chronic kidney disease Code(s): N18.9 - CHRONIC KIDNEY DISEASE, UNSPECIFIED Assessment/Plan Current Medications Generic Name Dose Route Start Last Admin Trade Name Chineduq PRN Reason Stop Dose Admin Amlodipine Besylate 2.5 mg 11/15/17 22:00 11/19/17 22:18 Norvasc - PO 2.5 mg DAILY@2200 MICHAEL Administration Febuxostat 80 mg 11/05/17 10:00 11/20/17 09:11 Uloric - PO 80 mg DAILY MICHAEL Administration Furosemide 40 mg 11/10/17 10:00 11/20/17 09:11 Lasix - PO 40 mg DAILY MICHAEL Administration Levetiracetam 500 mg 11/10/17 22:00 11/20/17 09:11 Keppra - PO 500 mg BID MICHAEL Administration Levothyroxine Sodium 25 mcg 11/12/17 07:00 11/20/17 06:12 Synthroid - PO 25 mcg DAILY@0700 MICHAEL Administration Lisinopril 40 mg 11/05/17 10:00 11/20/17 09:11 Prinivil PO 40 mg DAILY MICHAEL Administration Metoprolol Succinate 50 mg 11/13/17 20:00 11/20/17 09:11 Toprol Xl - PO 50 mg DAILY MICHAEL Administration Pantoprazole Sodium 20 mg 11/05/17 10:00 11/20/17 09:11 Protonix - PO 20 mg DAILY MICHAEL Administration Polyethylene Glycol 17 gm 11/10/17 18:45 11/20/17 09:11 Miralax (For Daily Use) - PO Not Given DAILY [facility] Rosuvastatin Calcium 5 mg 11/15/17 22:00 11/19/17 22:17 Crestor - PO 5 mg HS [facility] Administration Tamsulosin HCl 0.4 mg 11/05/17 08:30 11/20/17 07:47 Flomax - PO 0.4 mg DAILY@0830 MICHAEL Administration Impression 1. CKD 2. CHF with severely reduced LV function 3. BPH 4. a. fib 5. CAD 6. epilepsy 7. proteinuria Plan - renal function is at baseline - cont lasix - cont fiorella - will need to follow as outpt - avoid nsaids and nephrotoxins - renal dose all meds Dr Tipton
== END 2017-11-20 16:46 | disposition home health service (06) | DRG 100 ==
LOC: SUPCPDRO 20:45 → JER 20:45 → JERBED 23:50 → J2W 11-05 16:11 → J7W 11-15 18:40
PROVIDERS: ADMIT Internal Medicine; ATTEND Family Medicine
PROC: 30233N1 Transfusion of Nonautologous Red Blood Cells into Peripheral Vein, Percutaneous Approach (ICD-10-PCS; principal; 2017-11-05)
PROC: 0DD98ZX Extraction of Duodenum, Via Natural or Artificial Opening Endoscopic, Diagnostic (ICD-10-PCS; 2017-11-07)
PROC: 0DD68ZX Extraction of Stomach, Via Natural or Artificial Opening Endoscopic, Diagnostic (ICD-10-PCS; 2017-11-07)
PROC: 0DJD8ZZ Inspection of Lower Intestinal Tract, Via Natural or Artificial Opening Endoscopic (ICD-10-PCS; 2017-11-07)
DX: G40.909 Epilepsy, unspecified, not intractable, without status epilepticus (principal); I50.23 Acute on chronic systolic (congestive) heart failure; I69.959 Hemiplegia and hemiparesis following unspecified cerebrovascular disease affecting unspecified side; I13.0 Hypertensive heart and chronic kidney disease with heart failure and stage 1 through stage 4 chronic kidney disease, or unspecified chronic kidney disease; D62 Acute posthemorrhagic anemia; I48.2 Chronic atrial fibrillation; G71.11 Myotonic muscular dystrophy; K29.80 Duodenitis without bleeding; D69.6 Thrombocytopenia, unspecified; K29.50 Unspecified chronic gastritis without bleeding; I25.10 Atherosclerotic heart disease of native coronary artery without angina pectoris; E11.22 Type 2 diabetes mellitus with diabetic chronic kidney disease; N18.9 Chronic kidney disease, unspecified; E03.9 Hypothyroidism, unspecified; Z98.61 Coronary angioplasty status
CPT/HCPCS: 36415; 36430; 70450-TC; 71045-TC-FY; 76700-TC; 80048; 80053; 81003; 81015; 82272; 82550; 82607; 82728; 82784; 83010; 83021; 83540; 83550; 83615; 83735; 83880; 84100; 84132; 84155; 84165; 84439; 84443; 84480; 84481; 84484; 85025; 85027; 85044; 85610; 85651; 85660; 86140; 86334; 86850; 86900; 86901; 86922; 87040; 87086; 88305-TC; 93005; 93010; 93306-TC; 94761; 97116-GP; 97161-GP; 99285-25; P9038; P9058

== ENCOUNTER 2017-12-11 09:27 | Inpatient (IN) | payer OTHER, BC ==
[2017-12-11 10:35] LABS: BASO % 0.9 % (0-2.0); HEMATOCRIT 19.7 % (35.4-49); LYMPH % 18.1 % (8-40); MCH 26.7 pg (25.7-33.7); MCHC 31.2 g/dl (32.0-35.9); MEAN CELL VOLUME 85.5 fl (80-96); MEAN PLT VOLUME 7.3 fl (7.5-11.1); MONO % 7.2 % (3.8-10.2); NEUT % 72.8 % (42.8-82.8); PLATELET COUNT 135 K/MM3 (134-434); RDW 17.4 % (11.9-15.9); WHITE BLOOD COUNT 5.3 K/mm3 (4.0-10.0)
[2017-12-11 10:44] LABS: HEMOGLOBIN 6.1 GM/dL (11.7-16.9)
[2017-12-11 11:24] LABS: ALBUMIN 2.7 g/dl (3.4-5.0); ANION GAP 4 (8-16); BLOOD UREA NITROGEN 29 mg/dL (7-18); CALCIUM 7.8 mg/dL (8.5-10.1); CHLORIDE 106 mmol/L (98-107); CO2 31 mmol/L (21-32); CREATININE 1.5 mg/dL (0.7-1.3); GLUCOSE,RANDOM 111 mg/dL (74-106); POTASSIUM 3.9 mmol/L (3.5-5.1); SGOT/AST 22 U/L (15-37); SGPT/ALT 19 U/L (12-78); SODIUM 141 mmol/L (136-145)
[2017-12-11 11:27] LABS: ALK PHOS 68 U/L (45-117); BILIRUBIN,TOTAL 0.3 mg/dL (0.2-1.0); TOT PROT 6.7 g/dl (6.4-8.2)
--- NOTE | 2017-12-11 11:33 | PDOC ---
History of Present Illness - General Chief Complaint: Blood Transfusion Stated Complaint: BLOOD TRANSFUSION Time Seen by Provider: 12/11/17 09:48 History Source: Patient, Spouse Exam Limitations: No Limitations - History of Present Illness Initial Comments: 12/11/17 10:57 77-year-old male with history of CHF, colon cancer CAD, A. fib, CVA with right- sided weakness, and seizure history presents the emergency room for evaluation of low hemoglobin and hematocrit. Patient had blood work done a few days ago with Dr. Wong who noted his H&H to be 5.8. Patient also states has been fatigued and mildly shortness of breath with minimal activity. Patient with recent admission here to [facility] secondary to anemia related to multiple factors including cardiac and possible GI origin. Patient upon discharge was to follow up with GI for an endoscopy/colonoscopy that has not as of yet. Patient denies chest pain, cough, fever or chills. Patient also denies passing bright red blood in stool or urine. Timing/Duration: getting worse Severity: mild, moderate Associated Symptoms: reports: shortness of breath, weakness Past History - Travel Traveled outside of the country in the last 30 days: No - Past Medical History Allergies/Adverse Reactions: Allergies Allergy/AdvReac Type Severity Reaction Status Date / Time No Known Allergies Allergy Verified 12/11/17 09:43 Home Medications: Ambulatory Orders Tamsulosin HCl [Flomax -] 0.4 mg PO DAILY 11/20/13 Febuxostat [Uloric -] 80 mg PO DAILY 11/05/17 Lisinopril 2 tablet PO DAILY 11/05/17 Omeprazole 20 mg PO DAILY 11/05/17 Furosemide [Lasix -] 40 mg PO DAILY #30 tablet 11/19/17 Levothyroxine [Synthroid -] 25 mcg PO DAILY@0700 #30 tablet 11/19/17 Metoprolol Succinate [Toprol XL -] 50 mg PO DAILY #30 tab.sr.24h 11/19/17 Polyethylene Glycol 3350 [Miralax 119 gm Btl -] 17 gm PO DAILY #1 bottle Rosuvastatin [Crestor -] 5 mg PO HS #30 tablet 11/19/17 levETIRAcetam [Keppra -] 500 mg PO BID #60 tablet 11/19/17 Cancer: Yes (colon) Cardiac Disorders: Yes (CHF, CAD, AF) CVA: Yes (R sided weakness) COPD: No CHF: Yes Diabetes: No (denies) HTN: No (denies) Seizures: Yes - Surgical History Abdominal Surgery: Yes (HERNIA) Appendectomy: Yes Cardiac Surgery: Yes (STENT X 1) Neurologic Surgery: Yes (brain tumor) Orthopedic Surgery: Yes (L. elbow) - Immunization History Immunization Up to Date: Yes - Suicide/Smoking/Psychosocial Hx Smoking Status: Yes Smoking History: Former smoker Have you smoked in the past 12 months: No Number of Cigarettes Smoked Daily: 4 If you are a former smoker, when did you quit?: 1YR Information on smoking cessation initiated: No 'Breaking Loose' booklet given: 07/07/15 Hx Alcohol Use: No Drug/Substance Use Hx: No Substance Use Type: None Hx Substance Use Treatment: No Patient Lives Alone: No Lives with/in: spouse/SO Review of Systems - Review of Systems Able to Perform ROS?: No Constitutional: Yes: Weakness HEENTM: No: Symptoms Reported Respiratory: Yes: SOB with Exertion Cardiac (ROS): No: Symptoms Reported ABD/GI: No: Symptoms Reported Musculoskeletal: No: Symptoms Reported Integumentary: No: Symptoms Reported Neurological: Yes: Weakness Endocrine: No: Symptoms Reported Hematologic/Lymphatic: Yes: Anemia *Physical Exam - Vital Signs Last Vital Signs Temp Pulse Resp BP Pulse Ox 97.9 F 62 18 133/78 100 12/11/17 09:44 12/11/17 09:44 12/11/17 09:44 12/11/17 09:44 12/11/17 09:44 - Physical Exam General Appearance: Yes: Nourished, Appropriately Dressed. No: Apparent Distress HEENT: positive: EOMI, RAUL, Pale Conjunctivae Neck: positive: Supple Respiratory/Chest: positive: Lungs Clear, Normal Breath Sounds. negative: Respiratory Distress, Accessory Muscle Use Cardiovascular: positive: Regular Rhythm, Regular Rate. negative: Murmur Vascular Pulses: Dorsalis-Pedis (R): 2+, Doralis-Pedis (L): 2+ Gastrointestinal/Abdominal: positive: Soft. negative: Tenderness Rectal Exam: positive: heme positive stool (dark brown). negative: hemorrhoids Extremity: positive: Normal Capillary Refill, Pedal Edema (2+ bilateral) Integumentary: positive: Warm, Pale, Moist Neurologic: positive: Normal Mood/Affect, Motor Strength 5/5 (moving on stretcher) ED Treatment Course - LABORATORY CBC & Chemistry Diagram: 12/11/17 09:49 12/11/17 09:49 - ADDITIONAL ORDERS Additional order review: Laboratory Results 12/11/17 12/11/17 11:10 09:49 Stool Occult Blood Positive Crossmatch See Detail 12/11/17 09:49 RBC 2.30 L MCV 85.5 MCHC 31.2 L RDW 17.4 H MPV 7.3 L Neutrophils % 72.8 Lymphocytes % 18.1 Monocytes % 7.2 Eosinophils % 1.0 Basophils % 0.9 - RADIOLOGY Radiology Studies Ordered: Category Date Time Status CHEST X-RAY PORTABLE* [RAD] Stat Radiology 12/11/17 10:46 Ordered Medical Decision Making - Medical Decision Making 12/11/17 10:00 Patient here for evaluation of low H&H as per his primary care physician Dr. Wong. Patient with recent blood transfusion secondary to anemia and was pending a GI workup. Patient states also shortness of breath with minimal activity. states history of colon cancer with partial colon resection years ago performed by a surgeon in the [place]. she also states patient had a colonoscopy earlier this year. As per previous chart there is no mention of colon cancer, although states the opposite. Patient was positive for occult blood digital exam. Patient ordered for labs, urine, chest x-ray IV and type and screen. 12/11/17 13:02 Laboratory Tests 12/11/17 12/11/17 12/11/17 09:49 09:49 11:10 WBC 5.3 RBC 2.30 L Hgb 6.1 L* Hct 19.7 L D MCHC 31.2 L RDW 17.4 H MPV 7.3 L Neutrophils % 72.8 Sodium 141 Potassium 3.9 Chloride 106 Anion Gap 4 L BUN 29 H Creatinine 1.5 H Creat Clearance w eGFR 45.14 Random Glucose 111 H D Calcium 7.8 L Total Bilirubin 0.3 AST 22 D ALT 19 D Alkaline Phosphatase 68 D Total Protein 6.7 Albumin 2.7 L Stool Occult Blood Positive Patient ordered for 1 unit of packed cells. Case discussed with Dr. Gonzalez who admitted to [facility] inpatient. She is recommended consultation GI. Consult placed for Dr. Carrion. *DC/Admit/Observation/Transfer Diagnosis at time of Disposition: Anemia requiring transfusions, Positive occult stool blood test - Discharge Dispostion Decision to Admit order: Yes - Referrals - Patient Instructions - Post Discharge Activity
--- NOTE | 2017-12-11 13:08 | HP ---
Admitting History and Physical - Primary Care Physician PCP: Chavez Montes De Oca - Admission Chief Complaint: sent in by PCP for low h/h History of Present Illness: 77-year-old male with history of CHF, colon cancer CAD, A. fib, CVA with right- sided weakness, and seizure history presents the emergency room for evaluation of low hemoglobin and hematocrit. Patient had blood work done a few days ago with Dr. Curtis who noted his H&H to be 5.8. Patient also states has been fatigued and mildly shortness of breath with minimal activity. Patient with recent admission here to [facility] secondary to anemia related to multiple factors including cardiac and possible GI origin. Patient upon discharge was to follow up with GI for an endoscopy/colonoscopy that has not as of yet. Patient denies chest pain, cough, fever or chills. Patient also denies passing bright red blood in stool or urine. 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 Cardiovascular: Yes: CAD, CHF, HTN, Hyperlipdemia Renal/: Yes: Renal Inusuff (see HPI) Endocrine: Yes: Diabetes Mellitus, Other (pituitary adenoma resection) - Past Surgical History Past Surgical History: Yes: Stent (s/p one vessel PCI) - Smoking History Smoking history: Former smoker Have you smoked in the past 12 months: No Aproximately how many cigarettes per day: 4 If you are a former smoker, when did you quit?: 1YR - Alcohol/Substance Use Hx Alcohol Use: No - Social History 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) History of Recent Travel: No Home Medications - Allergies Allergies/Adverse Reactions: Allergies Allergy/AdvReac Type Severity Reaction Status Date / Time No Known Allergies Allergy Verified 12/11/17 09:43 - Home Medications Home Medications: Ambulatory Orders Tamsulosin HCl [Flomax -] 0.4 mg PO DAILY 11/20/13 Febuxostat [Uloric -] 80 mg PO DAILY 11/05/17 Lisinopril 2 tablet PO DAILY 11/05/17 Omeprazole 20 mg PO DAILY 11/05/17 Furosemide [Lasix -] 40 mg PO DAILY #30 tablet 11/19/17 Levothyroxine [Synthroid -] 25 mcg PO DAILY@0700 #30 tablet 11/19/17 Metoprolol Succinate [Toprol XL -] 50 mg PO DAILY #30 tab.sr.24h 11/19/17 Polyethylene Glycol 3350 [Miralax 119 gm Btl -] 17 gm PO DAILY #1 bottle Rosuvastatin [Crestor -] 5 mg PO HS #30 tablet 11/19/17 levETIRAcetam [Keppra -] 500 mg PO BID #60 tablet 11/19/17 Review of Systems - Review of Systems Eyes: reports: No Symptoms Neck: reports: No Symptoms Cardiovascular: reports: No Symptoms Respiratory: reports: No Symptoms Physical Examination Vital Signs: Vital Signs Temperature 97.9 F 12/11/17 09:44 Pulse Rate 62 12/11/17 09:44 Respiratory Rate 18 12/11/17 09:44 Blood Pressure 133/78 12/11/17 09:44 O2 Sat by Pulse Oximetry (%) 100 12/11/17 09:44 Constitutional: Yes: Calm Cardiovascular: Yes: Regular Rate and Rhythm, S1, S2 Respiratory: Yes: CTA Bilaterally, Diminished (at the bases) Gastrointestinal: Yes: Normal Bowel Sounds, Soft Labs: CBC, BMP 12/11/17 09:49 12/11/17 09:49 Imaging - Results Chest X-ray: Report Reviewed (no chf no infiltrates) Problem List - Problems (1) Anemia requiring transfusions Assessment/Plan: PRBC lasix in between transfusions heme and GI evaluations iron studies Code(s): D64.9 - ANEMIA, UNSPECIFIED (2) Hypothyroid Assessment/Plan: on synthroid check tsh Code(s): E03.9 - HYPOTHYROIDISM, UNSPECIFIED (3) Seizure Assessment/Plan: keppra Code(s): R56.9 - UNSPECIFIED CONVULSIONS (4) BPH (benign prostatic hyperplasia) Assessment/Plan: flomax Code(s): N40.0 - BENIGN PROSTATIC HYPERPLASIA WITHOUT LOWER URINRY TRACT SYMP
--- NOTE | 2017-12-11 16:49 | CONSULT ---
Consult Consult Specialty:: Nephrology Reason for Consultation:: CKD - History of Present Illness Chief Complaint: anemia History of Present Illness: Pt is a 77 year old male with pmhx of CHF, colon cancer, a-fib, CAD, CVA, and CKD who presents to the ER for low Hg. He was recently admitted for anemia. He denies shortness of breath at the moment however was SOB yesterday. I was called to evaluate him for CKD. He does comlplain of lower ext edema. He denies blood in the stool. He denies dysuria or hematuria. 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) History of Recent Travel: No Home Medications - Allergies Allergies/Adverse Reactions: Allergies Allergy/AdvReac Type Severity Reaction Status Date / Time No Known Allergies Allergy Verified 12/11/17 09:43 - Home Medications Home Medications: Ambulatory Orders Tamsulosin HCl [Flomax -] 0.4 mg PO DAILY 11/20/13 Febuxostat [Uloric -] 80 mg PO DAILY 11/05/17 Lisinopril 2 tablet PO DAILY 11/05/17 Omeprazole 20 mg PO DAILY 11/05/17 Furosemide [Lasix -] 40 mg PO DAILY #30 tablet 11/19/17 Levothyroxine [Synthroid -] 25 mcg PO DAILY@0700 #30 tablet 11/19/17 Metoprolol Succinate [Toprol XL -] 50 mg PO DAILY #30 tab.sr.24h 11/19/17 Polyethylene Glycol 3350 [Miralax 119 gm Btl -] 17 gm PO DAILY #1 bottle Rosuvastatin [Crestor -] 5 mg PO HS #30 tablet 11/19/17 levETIRAcetam [Keppra -] 500 mg PO BID #60 tablet 11/19/17 Family Disease History - Family Disease History Family History: Denies Review of Systems - Review of Systems Constitutional: reports: No Symptoms Eyes: reports: No Symptoms HENT: reports: No Symptoms Neck: reports: No Symptoms Respiratory: reports: SOB on Exertion Gastrointestinal: reports: No Symptoms Genitourinary: reports: No Symptoms Musculoskeletal: reports: No Symptoms Integumentary: reports: No Symptoms Neurological: reports: No Symptoms Physical Exam Vital Signs: Vital Signs Temperature 97.9 F 12/11/17 09:44 Pulse Rate 62 12/11/17 09:44 Respiratory Rate 18 12/11/17 09:44 Blood Pressure 133/78 12/11/17 09:44 O2 Sat by Pulse Oximetry (%) 100 12/11/17 09:44 Constitutional: Yes: Calm Cardiovascular: Yes: S1, S2 Respiratory: Yes: CTA Bilaterally Gastrointestinal: Yes: Soft Renal/: Yes: WNL Musculoskeletal: Yes: WNL Edema: Yes Edema: LLE: 1+, RLE: 1+ Neurological: Yes: Oriented Psychiatric: Yes: Oriented Labs: CBC, BMP 12/11/17 09:49 12/11/17 09:49 Laboratory Tests 07/16/15 11/04/17 11/05/17 06:00 23:17 10:23 Hgb BUN Creatinine 1.9 H 2.1 H Urine Protein 1+ H Urine Blood Negative Stool Occult Blood 11/07/17 11/13/17 11/15/17 05:00 05:55 09:30 Hgb BUN Creatinine 1.7 H 1.4 H 1.5 H Urine Protein Urine Blood Stool Occult Blood 11/16/17 11/18/17 11/18/17 09:28 09:55 09:55 Hgb 8.6 L BUN Creatinine 1.6 H 1.8 H Urine Protein Urine Blood Stool Occult Blood 11/20/17 11/20/17 12/11/17 10:45 10:45 09:49 Hgb 8.4 L 6.1 L* BUN Creatinine 1.5 H Urine Protein Urine Blood Stool Occult Blood 12/11/17 12/11/17 09:49 11:10 Hgb BUN 29 H Creatinine 1.5 H Urine Protein Urine Blood Stool Occult Blood Positive Imaging - Results Chest X-ray: Report Reviewed Problem List - Problems (1) CKD (chronic kidney disease) Code(s): N18.9 - CHRONIC KIDNEY DISEASE, UNSPECIFIED (2) Anemia requiring transfusions Code(s): D64.9 - ANEMIA, UNSPECIFIED Assessment/Plan Current Medications Generic Name Dose Route Start Last Admin Trade Name Freq PRN Reason Stop Dose Admin Levetiracetam 500 mg 12/11/17 22:00 Keppra - PO BID MICHAEL Levothyroxine Sodium 25 mcg 12/12/17 07:00 Synthroid - PO DAILY@0700 [facility] Pantoprazole Sodium 40 mg 12/11/17 22:00 Protonix Iv IVPUSH BID MICHAEL Rosuvastatin Calcium 5 mg 12/11/17 22:00 Crestor - PO HS MICHAEL Tamsulosin HCl 0.4 mg 12/12/17 08:30 Flomax - PO DAILY@0830 [facility] Impression 1. CKD 2. CHF 3. BPH 4. a. fib 5. CAD 6. epilepsy 7. proteinuria 8. anemia Plan - renal function at baseline - will give a dose of lasix as he has edema and is getting blood - resume home meds - repeat labs in am - will follow Dr Tipton
--- NOTE | 2017-12-11 17:24 | PN ---
Progress Note (short form) - Note Progress Note: seen and examined son at bedside. Flt tired/SOB at home. Sent by PMD for hgb of 5.8. recent admission for the same AFVSS Cor: RSR, No murmurs, No gallops Lungs: Clear to P&A Abd: Soft, Normal bowel sounds, No organomegaly Ext:No significant edema Last Vital Signs Temp Pulse Resp BP Pulse Ox 97.9 F 62 18 133/78 100 12/11/17 09:44 12/11/17 09:44 12/11/17 09:44 12/11/17 09:44 12/11/17 09:44 CBC, BMP 12/11/17 09:49 12/11/17 09:49 Current Medications Generic Name Dose Route Start Last Admin Trade Name Freq PRN Reason Stop Dose Admin Furosemide 40 mg 12/11/17 16:53 Lasix - PO 12/11/17 16:54 ONCE ONE Levetiracetam 500 mg 12/11/17 22:00 Keppra - PO BID MICHAEL Levothyroxine Sodium 25 mcg 12/12/17 07:00 Synthroid - PO DAILY@0700 [facility] Pantoprazole Sodium 40 mg 12/11/17 22:00 Protonix Iv IVPUSH BID MICHAEL Rosuvastatin Calcium 5 mg 12/11/17 22:00 Crestor - PO HS MICHAEL Tamsulosin HCl 0.4 mg 12/12/17 08:30 Flomax - PO DAILY@0830 [facility] 77 y/o patient with CHF, anemia:normocytic--re-admitted for severe anemia. recent Upper and lower endoscopy with no significant causes. hgb >8--transfusion goal Multi-factorial --likely occult GI losses SIFE --negative GI f/u to consider capsule, d/w gi. CKD --might be contributing too, to consider renal , need for JANNA Thrombocytopenia: ?congestive resolved US abdomen, fatty liver. Renal function worsening---renal f/u
[2017-12-11] MEDS ORDERED: FUROSEMIDE 40 MG TABLET (FP) PO ONE (17:45)
[2017-12-11 19:05] LABS: BASO % 0.3 % (0-2.0); EOS % 1.2 % (0-4.5); HEMATOCRIT 21.9 % (35.4-49); HEMOGLOBIN 7.1 GM/dL (11.7-16.9); LYMPH % 20.4 % (8-40); MCH 27.5 pg (25.7-33.7); MCHC 32.2 g/dl (32.0-35.9); MEAN CELL VOLUME 85.3 fl (80-96); MEAN PLT VOLUME 7.5 fl (7.5-11.1); MONO % 7.2 % (3.8-10.2); NEUT % 70.9 % (42.8-82.8); PLATELET COUNT 133 K/MM3 (134-434); RBC 2.57 M/mm3 (4.00-5.60); RDW 17.1 % (11.9-15.9); WHITE BLOOD COUNT 6.1 K/mm3 (4.0-10.0)
--- NOTE | 2017-12-11 19:05 | CON.GI ---
Consult Consult Specialty:: GI Reason for Consultation:: Anemia - History of Present Illness History of Present Illness: The pt is know to GI service from prior admission for the same. The patinet reports, agaion, no stigmata of overg GI bleeding, or melena. EGD and Colonoscopy in October of barb year revealed no significant pathology. The pt was found to be hemocult positive on this admission. At the time of this encounter he reports no GI-related complains at home, or while in the hospital. 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) History of Recent Travel: No Home Medications - Allergies Allergies/Adverse Reactions: Allergies Allergy/AdvReac Type Severity Reaction Status Date / Time No Known Allergies Allergy Verified 12/11/17 09:43 - Home Medications Home Medications: Ambulatory Orders Tamsulosin HCl [Flomax -] 0.4 mg PO DAILY 11/20/13 Febuxostat [Uloric -] 80 mg PO DAILY 11/05/17 Lisinopril 2 tablet PO DAILY 11/05/17 Omeprazole 20 mg PO DAILY 11/05/17 Furosemide [Lasix -] 40 mg PO DAILY #30 tablet 11/19/17 Levothyroxine [Synthroid -] 25 mcg PO DAILY@0700 #30 tablet 11/19/17 Metoprolol Succinate [Toprol XL -] 50 mg PO DAILY #30 tab.sr.24h 11/19/17 Polyethylene Glycol 3350 [Miralax 119 gm Btl -] 17 gm PO DAILY #1 bottle Rosuvastatin [Crestor -] 5 mg PO HS #30 tablet 11/19/17 levETIRAcetam [Keppra -] 500 mg PO BID #60 tablet 11/19/17 Family Disease History - Family Disease History Family History: Unremarkable Review of Systems Findings/Remarks: as per HPI, H&P, ED Physical Exam-GI Vital Signs: Vital Signs Temperature 97.9 F 12/11/17 09:44 Pulse Rate 62 12/11/17 09:44 Respiratory Rate 18 12/11/17 09:44 Blood Pressure 133/78 12/11/17 09:44 O2 Sat by Pulse Oximetry (%) 100 12/11/17 09:44 Constitutional: Yes: No Distress, Calm Eyes: Yes: Conjunctiva Clear HENT: Yes: Atraumatic Neck: Yes: Supple Cardiovascular: No: Bradycardia, Tachycardia Respiratory: Yes: Regular Gastrointestinal Inspection: No: Ascites, Distention ...Auscultate: Yes: Normoactive Bowel Sounds ...Palpate: Yes: Soft. No: Firm/Rigid, Guarding, Mass, Tenderness, Tenderness, Epigastium, Tenderness, Rebound ...Rectal Exam: Yes: Guaiac Positive Neurological: Yes: Alert Labs: CBC, BMP 12/11/17 09:49 Laboratory Last Values WBC 5.3 K/mm3 (4.0-10.0) 12/11/17 09:49 RBC 2.30 M/mm3 (4.00-5.60) L 12/11/17 09:49 Hgb 6.1 GM/dL (11.7-16.9) L* 12/11/17 09:49 Hct 19.7 % (35.4-49) L D 12/11/17 09:49 MCV 85.5 fl (80-96) 12/11/17 09:49 MCH 26.7 pg (25.7-33.7) 12/11/17 09:49 MCHC 31.2 g/dl (32.0-35.9) L 12/11/17 09:49 RDW 17.4 % (11.9-15.9) H 12/11/17 09:49 Plt Count 135 K/MM3 (134-434) D 12/11/17 09:49 MPV 7.3 fl (7.5-11.1) L 12/11/17 09:49 Absolute Neuts (auto) 3.8 # 12/11/17 09:49 Neutrophils % 72.8 % (42.8-82.8) 06/26/18 09:49 Lymphocytes % 18.1 % (8-40) 12/11/17 09:49 Monocytes % 7.2 % (3.8-10.2) 12/11/17 09:49 Eosinophils % 1.0 % (0-4.5) 12/11/17 09:49 Basophils % 0.9 % (0-2.0) 12/11/17 09:49 Nucleated RBC % 0 % (0-0) 12/11/17 09:49 Sodium 141 mmol/L (136-145) 12/11/17 09:49 Potassium 3.9 mmol/L (3.5-5.1) 12/11/17 09:49 Chloride 106 mmol/L (98-107) 12/11/17 09:49 Carbon Dioxide 31 mmol/L (21-32) 12/11/17 09:49 Anion Gap 4 (8-16) L 12/11/17 09:49 BUN 29 mg/dL (7-18) H 12/11/17 09:49 Creatinine 1.5 mg/dL (0.7-1.3) H 12/11/17 09:49 Creat Clearance w eGFR 45.14 (>60) 12/11/17 09:49 Random Glucose 111 mg/dL (74-106) H D 12/11/17 09:49 Calcium 7.8 mg/dL (8.5-10.1) L 12/11/17 09:49 Total Bilirubin 0.3 mg/dL (0.2-1.0) 12/11/17 09:49 AST 22 U/L (15-37) D 12/11/17 09:49 ALT 19 U/L (12-78) D 12/11/17 09:49 Alkaline Phosphatase 68 U/L (45-117) D 12/11/17 09:49 Total Protein 6.7 g/dl (6.4-8.2) 12/11/17 09:49 Albumin 2.7 g/dl (3.4-5.0) L 12/11/17 09:49 Stool Occult Blood Positive (NEGATIVE) 12/11/17 11:10 Blood Type B POSITIVE 12/11/17 09:49 Antibody Screen Negative 12/11/17 09:49 Crossmatch See Detail 12/11/17 09:49 Problem List - Problems (1) History of colon cancer Code(s): Z85.038 - PERSONAL HISTORY OF MALIGNANT NEOPLASM OF LARGE INTESTINE (2) Anemia requiring transfusions Code(s): D64.9 - ANEMIA, UNSPECIFIED (3) CKD (chronic kidney disease) Code(s): N18.9 - CHRONIC KIDNEY DISEASE, UNSPECIFIED (4) Positive occult stool blood test Code(s): R19.5 - OTHER FECAL ABNORMALITIES Assessment/Plan Occult, chronic, GI blood loss with a negative EGD and colonsocopy in October of this year. Discussed with hematology. Transfuse to Hgb above 8 g/dl. Observe. Arrange for capsule endoscopy as OP. Diet as tolerated. Discussed with he patient. Will follow. Blood work ordered.
[2017-12-11 19:27] VITALS: BMI 32.8
[2017-12-11 21:41] LABS: URINE APPEARANCE CLEAR; URINE BILIRUBIN NEGATIVE (<2.0 mg/dL); URINE COLOR STRAW; URINE GLUCOSE (UA) NEGATIVE (NEGATIVE); URINE KETONE NEGATIVE (NEGATIVE); URINE LEUK ESTERASE NEGATIVE (NEGATIVE); URINE NITRITE NEGATIVE (NEGATIVE); URINE PROTEIN NEGATIVE (NEGATIVE); URINE UROBILINOGEN NEGATIVE mg/dL (0.2-1.0)
[2017-12-11] MEDS: ROSUVASTATIN CA 5 MG TABLET (FP) PO SCH (22:04)
[2017-12-11] MEDS: PANTOPRAZOLE SODIUM 40 MG VIAL IVPUSH SCH (22:04)
[2017-12-11] MEDS: levETIRAcetam 500 MG TABLET (FP) PO SCH (22:04)
[2017-12-12] MEDS: LEVOTHYROXINE NA 25 MCG TABLET (FP) PO SCH (06:19)
[2017-12-12 07:20] LABS: BASO % 0.5 % (0-2.0); EOS % 1.1 % (0-4.5); HEMATOCRIT 19.6 % (35.4-49); LYMPH % 21.9 % (8-40); MCH 27.8 pg (25.7-33.7); MCHC 33.2 g/dl (32.0-35.9); MEAN CELL VOLUME 83.8 fl (80-96); MEAN PLT VOLUME 7.7 fl (7.5-11.1); MONO % 5.4 % (3.8-10.2); NEUT % 71.1 % (42.8-82.8); PLATELET COUNT 96 K/MM3 (134-434); RBC 2.34 M/mm3 (4.00-5.60); RDW 17.1 % (11.9-15.9); WHITE BLOOD COUNT 6.8 K/mm3 (4.0-10.0)
[2017-12-12 07:26] LABS: INR 1.19 (0.82-1.09); PROTHROMBIN TIME (PATIENT) 13.4 SEC (9.7-13.0)
[2017-12-12 07:45] LABS: CHLORIDE 104 mmol/L (98-107); POTASSIUM 3.7 mmol/L (3.5-5.1); SODIUM 141 mmol/L (136-145)
[2017-12-12 07:48] LABS: HEMOGLOBIN 6.5 GM/dL (11.7-16.9)
[2017-12-12 08:08] LABS: ALBUMIN 2.5 g/dl (3.4-5.0); ALK PHOS 68 U/L (45-117); AMYLASE 146 U/L (25-115); ANION GAP 7 (8-16); BILIRUBIN,TOTAL 0.4 mg/dL (0.2-1.0); BLOOD UREA NITROGEN 30 mg/dL (7-18); CALCIUM 7.8 mg/dL (8.5-10.1); CO2 30 mmol/L (21-32); CREATININE 1.5 mg/dL (0.7-1.3); GLUCOSE,RANDOM 90 mg/dL (74-106); LDH 224 U/L (87-241); MAGNESIUM 1.6 mg/dL (1.8-2.4); N-TERMINAL BNP 9834.85 pg/ml (5-450); PHOSPHOROUS 4.5 mg/dL (2.5-4.9); SGOT/AST 23 U/L (15-37); SGPT/ALT 20 U/L (12-78); TOT PROT 6.3 g/dl (6.4-8.2)
[2017-12-12 08:19] LABS: LIPASE 279 U/L (73-393)
[2017-12-12] MEDS ORDERED: FUROSEMIDE 40 MG/4 ML INJECTABLE VIAL IVPUSH SCH (08:24)
--- NOTE | 2017-12-12 08:25 | PN ---
Progress Note, Physician - Current Medication List Current Medications: Active Medications Furosemide (Lasix Injection -) 40 mg IVPUSH ONCE ONE Stop: 12/12/17 08:25 Levetiracetam (Keppra -) 500 mg PO BID [facility] Last Admin: 12/11/17 22:04 Dose: 500 mg Levothyroxine Sodium (Synthroid -) 25 mcg PO DAILY@0700 [facility] Last Admin: 12/12/17 06:19 Dose: 25 mcg Pantoprazole Sodium (Protonix Iv) 40 mg IVPUSH BID [facility] Last Admin: 12/11/17 22:04 Dose: 40 mg Rosuvastatin Calcium (Crestor -) 5 mg PO [facility] Last Admin: 12/11/17 22:04 Dose: 5 mg Tamsulosin HCl (Flomax -) 0.4 mg PO DAILY@0830 [facility] - Objective Vital Signs: Vital Signs Temperature 98.2 F 12/12/17 06:20 Pulse Rate 59 L 12/12/17 06:20 Respiratory Rate 18 12/12/17 06:20 Blood Pressure 156/75 12/12/17 06:20 O2 Sat by Pulse Oximetry (%) 95 12/12/17 03:00 Cardiovascular: Yes: S1, S2 Respiratory: Yes: Regular, CTA Bilaterally Gastrointestinal: Yes: Normal Bowel Sounds, Soft Labs: CBC, BMP 12/12/17 06:30 12/12/17 06:30 INR, PTT INR 1.19 (0.82-1.09) H 12/12/17 06:30 Problem List - Problems (1) Anemia requiring transfusions Assessment/Plan: -hgb 6.5 PRBC lasix in between transfusions heme and GI evaluations iron studies Bleeding scan Code(s): D64.9 - ANEMIA, UNSPECIFIED (2) CKD (chronic kidney disease) Assessment/Plan: -Monitor Laboratory Tests 11/18/17 12/12/17 09:55 06:30 Creatinine 1.8 H 1.5 H Code(s): N18.9 - CHRONIC KIDNEY DISEASE, UNSPECIFIED (3) History of colon cancer Assessment/Plan: s/p endoscopies with no significant abnormalities Code(s): Z85.038 - PERSONAL HISTORY OF MALIGNANT NEOPLASM OF LARGE INTESTINE (4) Seizure Assessment/Plan: -on keppra Code(s): R56.9 - UNSPECIFIED CONVULSIONS (5) Afib Assessment/Plan: -not on ac due to gi bleed Code(s): I48.91 - UNSPECIFIED ATRIAL FIBRILLATION Qualifiers: Atrial fibrillation type: paroxysmal Qualified Code(s): I48.0 - Paroxysmal atrial fibrillation (6) CHF (congestive heart failure) Assessment/Plan: -chronic -monitor -diuresis post transfusion Code(s): I50.9 - HEART FAILURE, UNSPECIFIED
[2017-12-12] MEDS: levETIRAcetam 500 MG TABLET (FP) PO SCH ×2 (09:02→21:16)
[2017-12-12] MEDS: TAMSULOSIN HCL 0.4 MG CAP.ER.24H (FP) PO SCH ×2 (09:02→09:10)
[2017-12-12] MEDS: PANTOPRAZOLE SODIUM 40 MG VIAL IVPUSH SCH ×2 (09:02→21:16)
--- NOTE | 2017-12-12 12:58 | PN ---
Progress Note, Physician History of Present Illness: Pt seen and examined at bedside. He is currently getting PRBC transfusion. - Current Medication List Current Medications: Active Medications Furosemide (Lasix Injection -) 40 mg IVPUSH ROUTE [employer] [facility] Stop: 12/12/17 13:00 Levetiracetam (Keppra -) 500 mg PO BID [facility] Last Admin: 12/12/17 09:02 Dose: 500 mg Levothyroxine Sodium (Synthroid -) 25 mcg PO DAILY@0700 [facility] Last Admin: 12/12/17 06:19 Dose: 25 mcg Pantoprazole Sodium (Protonix Iv) 40 mg IVPUSH BID [facility] Last Admin: 12/12/17 09:02 Dose: 40 mg Rosuvastatin Calcium (Crestor -) 5 mg PO [facility] Last Admin: 12/11/17 22:04 Dose: 5 mg Tamsulosin HCl (Flomax -) 0.4 mg PO DAILY@0830 [facility] Last Admin: 12/12/17 09:10 Dose: Not Given - Objective Vital Signs: Vital Signs Temperature 98.0 F 12/12/17 11:03 Pulse Rate 68 12/12/17 11:03 Respiratory Rate 18 12/12/17 11:03 Blood Pressure 126/79 12/12/17 11:03 O2 Sat by Pulse Oximetry (%) 95 12/12/17 09:00 Constitutional: Yes: Calm Eyes: Yes: Conjunctiva Clear HENT: Yes: Atraumatic Neck: Yes: Supple Cardiovascular: Yes: S1, S2 Respiratory: Yes: CTA Bilaterally Gastrointestinal: Yes: Soft Genitourinary: Yes: WNL Musculoskeletal: Yes: Muscle Weakness Edema: Yes Edema: LLE: 1+, RLE: 1+ Neurological: Yes: Oriented Labs: CBC, BMP 12/12/17 06:30 12/12/17 06:30 INR, PTT INR 1.19 (0.82-1.09) H 12/12/17 06:30 Problem List - Problems (1) CKD (chronic kidney disease) Code(s): N18.9 - CHRONIC KIDNEY DISEASE, UNSPECIFIED (2) Anemia requiring transfusions Code(s): D64.9 - ANEMIA, UNSPECIFIED Assessment/Plan Current Medications Generic Name Dose Route Start Last Admin Trade Name Freq PRN Reason Stop Dose Admin Furosemide 40 mg 12/12/17 08:24 Lasix Injection - IVPUSH 12/12/17 13:00 R[facility]TE [facility] [facility] Levetiracetam 500 mg 12/11/17 22:00 12/12/17 09:02 Keppra - PO 500 mg BID MICHAEL Administration Levothyroxine Sodium 25 mcg 12/12/17 07:00 12/12/17 06:19 Synthroid - PO 25 mcg DAILY@0700 MICHAEL Administration Pantoprazole Sodium 40 mg 12/11/17 22:00 12/12/17 09:02 Protonix Iv IVPUSH 40 mg BID MICHAEL Administration Rosuvastatin Calcium 5 mg 12/11/17 22:00 12/11/17 22:04 Crestor - PO 5 mg HS [facility] Administration Tamsulosin HCl 0.4 mg 12/12/17 08:30 12/12/17 09:10 Flomax - PO Not Given DAILY@0830 [facility] Impression 1. CKD 2. CHF 3. BPH 4. a. fib 5. CAD 6. epilepsy 7. proteinuria 8. anemia Plan - renal function stable - agree with lasix between transfusions - pt was on diuretics at home - anemia workup per primary team - repeat labs in am - will follow Dr Tipton
--- NOTE | 2017-12-12 14:23 | PN ---
Progress Note, Physician History of Present Illness: Fatigued. No stigmata of GI bleeding. Hgb 6.7 g/dl after 1 U of PRBC yesterday. - Current Medication List Current Medications: Active Medications Levetiracetam (Keppra -) 500 mg PO BID [facility] Last Admin: 12/12/17 09:02 Dose: 500 mg Levothyroxine Sodium (Synthroid -) 25 mcg PO DAILY@0700 [facility] Last Admin: 12/12/17 06:19 Dose: 25 mcg Pantoprazole Sodium (Protonix Iv) 40 mg IVPUSH BID [facility] Last Admin: 12/12/17 09:02 Dose: 40 mg Rosuvastatin Calcium (Crestor -) 5 mg PO HS [facility] Last Admin: 12/11/17 22:04 Dose: 5 mg Tamsulosin HCl (Flomax -) 0.4 mg PO DAILY@0830 [facility] Last Admin: 12/12/17 09:10 Dose: Not Given - Objective Vital Signs: Vital Signs Temperature 98.0 F 12/12/17 13:52 Pulse Rate 63 12/12/17 13:52 Respiratory Rate 20 12/12/17 13:52 Blood Pressure 137/51 12/12/17 13:52 O2 Sat by Pulse Oximetry (%) 95 12/12/17 09:00 Constitutional: Yes: No Distress, Calm, Pallor Eyes: Yes: Conjunctiva Clear. No: Sclera Icterus Gastrointestinal: Yes: Normal Bowel Sounds, Soft. No: Tenderness Neurological: Yes: Alert Labs: CBC, BMP 12/12/17 06:30 12/12/17 06:30 INR, PTT INR 1.19 (0.82-1.09) H 12/12/17 06:30 Laboratory Last Values WBC 6.8 K/mm3 (4.0-10.0) 12/12/17 06:30 RBC 2.34 M/mm3 (4.00-5.60) L 12/12/17 06:30 Hgb 6.5 GM/dL (11.7-16.9) L* 12/12/17 06:30 Hct 19.6 % (35.4-49) L 12/12/17 06:30 MCV 83.8 fl (80-96) 12/12/17 06:30 MCH 27.8 pg (25.7-33.7) 12/12/17 06:30 MCHC 33.2 g/dl (32.0-35.9) 12/12/17 06:30 RDW 17.1 % (11.9-15.9) H 12/12/17 06:30 Plt Count 96 K/MM3 (134-434) L D 12/12/17 06:30 MPV 7.7 fl (7.5-11.1) 12/12/17 06:30 Absolute Neuts (auto) 4.8 # 12/12/17 06:30 Neutrophils % 71.1 % (42.8-82.8) 12/12/17 06:30 Lymphocytes % 21.9 % (8-40) 12/12/17 06:30 Monocytes % 5.4 % (3.8-10.2) 12/12/17 06:30 Eosinophils % 1.1 % (0-4.5) 12/12/17 06:30 Basophils % 0.5 % (0-2.0) 12/12/17 06:30 Nucleated RBC % 0 % (0-0) 12/12/17 06:30 PT with INR 13.40 SEC (9.7-13.0) H 12/12/17 06:30 INR 1.19 (0.82-1.09) H 12/12/17 06:30 Sodium 141 mmol/L (136-145) 12/12/17 06:30 Potassium 3.7 mmol/L (3.5-5.1) 12/12/17 06:30 Chloride 104 mmol/L (98-107) 12/12/17 06:30 Carbon Dioxide 30 mmol/L (21-32) 12/12/17 06:30 Anion Gap 7 (8-16) L 12/12/17 06:30 BUN 30 mg/dL (7-18) H 12/12/17 06:30 Creatinine 1.5 mg/dL (0.7-1.3) H 12/12/17 06:30 Creat Clearance w eGFR 45.14 (>60) 12/12/17 06:30 Random Glucose 90 mg/dL (74-106) 12/12/17 06:30 Calcium 7.8 mg/dL (8.5-10.1) L 12/12/17 06:30 Phosphorus 4.5 mg/dL (2.5-4.9) 12/12/17 06:30 Magnesium 1.6 mg/dL (1.8-2.4) L D 12/12/17 06:30 Ferritin 83.2 ng/ml (16.4-293.9) 12/12/17 06:30 Total Bilirubin 0.4 mg/dL (0.2-1.0) 12/12/17 06:30 AST 23 U/L (15-37) 12/12/17 06:30 ALT 20 U/L (12-78) 12/12/17 06:30 Alkaline Phosphatase 68 U/L (45-117) 12/12/17 06: LD Total 224 U/L (87-241) 12/12/17 06: Troponin I 0.03 ng/ml (0.00-0.05) D 12/12/17 06:30 B-Natriuretic Peptide 9834.85 pg/ml (5-450) H 12/12/17 06:30 Total Protein 6.3 g/dl (6.4-8.2) L 12/12/17 06: Albumin 2.5 g/dl (3.4-5.0) L 12/12/17 06:30 Total Amylase 146 U/L (25-115) H 12/12/17 06: Lipase 279 U/L (73-393) 12/12/17 06:30 Urine Color Straw 12/11/17 20:25 Urine Appearance Clear 12/11/17 20:25 Urine pH 5.0 (5.0-8.0) 12/11/17 20:25 Ur Specific [place] 1.009 (1.001-1.035) 12/11/17 20:25 Urine Protein Negative (NEGATIVE) 12/11/17 20:25 Urine Glucose (UA) Negative (NEGATIVE) 12/11/17 20:25 Urine Ketones Negative (NEGATIVE) 12/11/17 20:25 Urine Blood Negative (NEGATIVE) 12/11/17 20:25 Urine Nitrite Negative (NEGATIVE) 12/11/17 20:25 Urine Bilirubin Negative (<2.0 mg/dL) 12/11/17 20:25 Urine Urobilinogen Negative mg/dL (0.2-1.0) 12/11/17 20:25 Ur Leukocyte Esterase Negative (NEGATIVE) 12/11/17 20:25 Stool Occult Blood Positive (NEGATIVE) 12/11/17 11:10 Blood Type B POSITIVE 12/11/17 09:49 Antibody Screen Negative 12/11/17 09:49 Crossmatch See Detail 12/11/17 09:49 Problem List - Problems (1) History of colon cancer Code(s): Z85.038 - PERSONAL HISTORY OF MALIGNANT NEOPLASM OF LARGE INTESTINE (2) Anemia requiring transfusions Code(s): D64.9 - ANEMIA, UNSPECIFIED (3) CKD (chronic kidney disease) Code(s): N18.9 - CHRONIC KIDNEY DISEASE, UNSPECIFIED (4) Positive occult stool blood test Code(s): R19.5 - OTHER FECAL ABNORMALITIES Assessment/Plan No overt stigmata of GI bleeding. Occult, chronic, GI blood loss with a negative EGD and colonsocopy in October of this year. Discussed with hematology. Transfuse to Hgb above 8 g/dl. Observe. If MRI enterography is not available here, arrange for a small bowel capsule endoscopy study as OP. Diet as tolerated. Discussed with he patient. Will follow. Blood work ordered.
--- NOTE | 2017-12-12 16:53 | PN ---
Progress Note (short form) - Note Progress Note: AFVSS Cor: RSR, No murmurs, No gallops Lungs: Clear to P&A Abd: Soft, Normal bowel sounds, No organomegaly Ext:No significant edema Last Vital Signs Temp Pulse Resp BP Pulse Ox 98.4 F 67 18 129/68 95 12/12/17 16:10 12/12/17 16:10 12/12/17 16:10 12/12/17 16:10 12/12/17 09:00 CBC, BMP 12/12/17 06:30 12/12/17 06:30 Current Medications Generic Name Dose Route Start Last Admin Trade Name Freq PRN Reason Stop Dose Admin Levetiracetam 500 mg 12/11/17 22:00 12/12/17 09:02 Keppra - PO 500 mg BID MICHAEL Administration Levothyroxine Sodium 25 mcg 12/12/17 07:00 12/12/17 06:19 Synthroid - PO 25 mcg DAILY@0700 MICHAEL Administration Pantoprazole Sodium 40 mg 12/11/17 22:00 12/12/17 09:02 Protonix Iv IVPUSH 40 mg BID MICHAEL Administration Rosuvastatin Calcium 5 mg 12/11/17 22:00 12/11/17 22:04 Crestor - PO 5 mg HS MICHAEL Administration Tamsulosin HCl 0.4 mg 12/12/17 08:30 12/12/17 09:10 Flomax - PO Not Given DAILY@0830 [facility] 77 y/o patient with CHF, anemia:normocytic--re-admitted for severe anemia. recent Upper and lower endoscopy with no significant causes. hgb >8--transfusion goal Multi-factorial --likely occult GI losses SIFE --negative GI f/u to consider capsule,CT entero CKD --might be contributing too, to consider renal , need for JANNA tagged rbc scan--may not reveal as there is less suspicion for active GIB renal f/u appreciated
[2017-12-12] MEDS: ROSUVASTATIN CA 5 MG TABLET (FP) PO SCH (21:16)
[2017-12-13] MEDS: LEVOTHYROXINE NA 25 MCG TABLET (FP) PO SCH ×2 (06:06→06:09)
[2017-12-13 06:11] LABS: SERUM IRON SATURATION 16 % (15-55); TOTAL IRON BINDING CAPACITY 209 ug/dL (250-450); UIBC 176 ug/dL (111-343)
[2017-12-13 07:25] LABS: ALBUMIN 2.7 g/dl (3.4-5.0); ANION GAP 7 (8-16); BLOOD UREA NITROGEN 30 mg/dL (7-18); CALCIUM 7.9 mg/dL (8.5-10.1); CHLORIDE 100 mmol/L (98-107); CO2 33 mmol/L (21-32); CREATININE 1.6 mg/dL (0.7-1.3); GLUCOSE,RANDOM 84 mg/dL (74-106); POTASSIUM 3.8 mmol/L (3.5-5.1); SGOT/AST 22 U/L (15-37); SGPT/ALT 17 U/L (12-78); SODIUM 140 mmol/L (136-145)
[2017-12-13 07:27] LABS: ALK PHOS 71 U/L (45-117); BILIRUBIN,TOTAL 0.6 mg/dL (0.2-1.0); TOT PROT 6.5 g/dl (6.4-8.2)
[2017-12-13 07:34] LABS: BASO % 0.5 % (0-2.0); HEMATOCRIT 24.6 % (35.4-49); HEMOGLOBIN 8.2 GM/dL (11.7-16.9); LYMPH % 22.3 % (8-40); MCH 27.7 pg (25.7-33.7); MCHC 33.3 g/dl (32.0-35.9); MEAN CELL VOLUME 83.3 fl (80-96); MEAN PLT VOLUME 7.3 fl (7.5-11.1); MONO % 6.6 % (3.8-10.2); NEUT % 69.6 % (42.8-82.8); PLATELET COUNT 129 K/MM3 (134-434); RBC 2.95 M/mm3 (4.00-5.60); RDW 16.8 % (11.9-15.9)
[2017-12-13] MEDS: TAMSULOSIN HCL 0.4 MG CAP.ER.24H (FP) PO SCH (08:16)
[2017-12-13] MEDS ORDERED: FUROSEMIDE 40 MG/4 ML INJECTABLE VIAL IVPUSH ONE ×2 (08:38→17:15)
--- NOTE | 2017-12-13 08:38 | PN ---
Progress Note, Physician - Current Medication List Current Medications: Active Medications Levetiracetam (Keppra -) 500 mg PO BID [facility] Last Admin: 12/12/17 21:16 Dose: 500 mg Levothyroxine Sodium (Synthroid -) 25 mcg PO DAILY@0700 [facility] Last Admin: 12/13/17 06:09 Dose: Not Given Pantoprazole Sodium (Protonix Iv) 40 mg IVPUSH BID [facility] Last Admin: 12/12/17 21:16 Dose: 40 mg Rosuvastatin Calcium (Crestor -) 5 mg PO HS [facility] Last Admin: 12/12/17 21:16 Dose: 5 mg Tamsulosin HCl (Flomax -) 0.4 mg PO DAILY@0830 [facility] Last Admin: 12/13/17 08:16 Dose: Not Given - Objective Vital Signs: Vital Signs Temperature 98.4 F 12/13/17 06:00 Pulse Rate 67 12/13/17 06:00 Respiratory Rate 18 12/13/17 06:00 Blood Pressure 158/88 12/13/17 06:00 O2 Sat by Pulse Oximetry (%) 97 12/12/17 20:48 Cardiovascular: Yes: S1, S2 Respiratory: Yes: Regular, CTA Bilaterally Gastrointestinal: Yes: Normal Bowel Sounds, Soft Labs: CBC, BMP 12/13/17 06:00 12/13/17 06:00 INR, PTT INR 1.19 (0.82-1.09) H 12/12/17 06:30 Problem List - Problems (1) Anemia requiring transfusions Assessment/Plan: -hgb 8.2 PRBC lasix in between transfusions heme and GI evaluations iron studies Bleeding scan Code(s): D64.9 - ANEMIA, UNSPECIFIED (2) CKD (chronic kidney disease) Assessment/Plan: -Monitor Laboratory Tests 11/18/17 12/12/17 09:55 06:30 Creatinine 1.8 H 1.5 H Code(s): N18.9 - CHRONIC KIDNEY DISEASE, UNSPECIFIED (3) History of colon cancer Assessment/Plan: s/p endoscopies with no significant abnormalities Code(s): Z85.038 - PERSONAL HISTORY OF MALIGNANT NEOPLASM OF LARGE INTESTINE (4) Seizure Assessment/Plan: -on keppra Code(s): R56.9 - UNSPECIFIED CONVULSIONS (5) Afib Assessment/Plan: -not on ac due to gi bleed Code(s): I48.91 - UNSPECIFIED ATRIAL FIBRILLATION Qualifiers: Atrial fibrillation type: paroxysmal Qualified Code(s): I48.0 - Paroxysmal atrial fibrillation (6) CHF (congestive heart failure) Assessment/Plan: -chronic -monitor -diuresis post transfusion Code(s): I50.9 - HEART FAILURE, UNSPECIFIED
[2017-12-13] MEDS: levETIRAcetam 500 MG TABLET (FP) PO SCH ×2 (09:04→21:35)
[2017-12-13] MEDS: PANTOPRAZOLE SODIUM 40 MG VIAL IVPUSH SCH ×2 (09:04→21:35)
--- NOTE | 2017-12-13 16:16 | PN ---
Progress Note, Physician History of Present Illness: Pt seen and examined at bedside. He is awake and alert. He is getting PRBC. He denies shortness of breath. - Current Medication List Current Medications: Active Medications Levetiracetam (Keppra -) 500 mg PO BID [facility] Last Admin: 12/13/17 09:04 Dose: 500 mg Levothyroxine Sodium (Synthroid -) 25 mcg PO DAILY@0700 [facility] Last Admin: 12/13/17 06:09 Dose: Not Given Pantoprazole Sodium (Protonix Iv) 40 mg IVPUSH BID [facility] Last Admin: 12/13/17 09:04 Dose: 40 mg Rosuvastatin Calcium (Crestor -) 5 mg PO HS [facility] Last Admin: 12/12/17 21:16 Dose: 5 mg Tamsulosin HCl (Flomax -) 0.4 mg PO DAILY@0830 [facility] Last Admin: 12/13/17 08:16 Dose: Not Given - Objective Vital Signs: Vital Signs Temperature 98.9 F 12/13/17 12:56 Pulse Rate 77 12/13/17 12:56 Respiratory Rate 18 12/13/17 12:56 Blood Pressure 113/68 12/13/17 12:56 O2 Sat by Pulse Oximetry (%) 96 12/13/17 09:00 Constitutional: Yes: Calm Eyes: Yes: Conjunctiva Clear HENT: Yes: Atraumatic Neck: Yes: Supple Cardiovascular: Yes: S1, S2 Respiratory: Yes: CTA Bilaterally Gastrointestinal: Yes: WNL Genitourinary: Yes: WNL Musculoskeletal: Yes: WNL Edema: Yes Edema: LLE: 1+, RLE: 1+ Neurological: Yes: Oriented Psychiatric: Yes: Oriented Labs: CBC, BMP 12/13/17 06:00 12/13/17 06:00 INR, PTT INR 1.19 (0.82-1.09) H 12/12/17 06:30 Problem List - Problems (1) CKD (chronic kidney disease) Code(s): N18.9 - CHRONIC KIDNEY DISEASE, UNSPECIFIED (2) Anemia requiring transfusions Code(s): D64.9 - ANEMIA, UNSPECIFIED Assessment/Plan Current Medications Generic Name Dose Route Start Last Admin Trade Name Freq PRN Reason Stop Dose Admin Levetiracetam 500 mg 12/11/17 22:00 06/28/18 09:04 Keppra - PO 500 mg BID MICHAEL Administration Levothyroxine Sodium 25 mcg 12/12/17 07:00 12/13/17 06:09 Synthroid - PO Not Given DAILY@0700 [facility] Pantoprazole Sodium 40 mg 12/11/17 22:00 12/13/17 09:04 Protonix Iv IVPUSH 40 mg BID MICHAEL Administration Rosuvastatin Calcium 5 mg 12/11/17 22:00 12/12/17 21:16 Crestor - PO 5 mg HS MICHAEL Administration Tamsulosin HCl 0.4 mg 12/12/17 08:30 12/13/17 08:16 Flomax - PO Not Given DAILY@0830 [facility] Impression 1. CKD 2. CHF 3. BPH 4. a. fib 5. CAD 6. epilepsy 7. proteinuria 8. anemia Plan - hg improving - will monitor renal function - lasix with transfusions - monitor lytes - anemia workup per primary team - pt had renal workup as outpt - repeat labs in am - will follow Dr Tipton
[2017-12-13] MEDS: ROSUVASTATIN CA 5 MG TABLET (FP) PO SCH (21:35)
[2017-12-14] MEDS: LEVOTHYROXINE NA 25 MCG TABLET (FP) PO SCH (06:50)
[2017-12-14 08:01] LABS: BASO % 0.4 % (0-2.0); HEMATOCRIT 29.2 % (35.4-49); HEMOGLOBIN 9.8 GM/dL (11.7-16.9); LYMPH % 24.1 % (8-40); MCH 28.1 pg (25.7-33.7); MCHC 33.7 g/dl (32.0-35.9); MEAN CELL VOLUME 83.3 fl (80-96); MEAN PLT VOLUME 7.4 fl (7.5-11.1); MONO % 6.6 % (3.8-10.2); NEUT % 67.9 % (42.8-82.8); PLATELET COUNT 149 K/MM3 (134-434); RBC 3.51 M/mm3 (4.00-5.60); RDW 16.7 % (11.9-15.9); WHITE BLOOD COUNT 6.7 K/mm3 (4.0-10.0)
[2017-12-14 08:05] LABS: ANION GAP 7 (8-16); BLOOD UREA NITROGEN 29 mg/dL (7-18); CALCIUM 8.3 mg/dL (8.5-10.1); CHLORIDE 98 mmol/L (98-107); CO2 35 mmol/L (21-32); CREATININE 1.6 mg/dL (0.7-1.3); GLUCOSE,RANDOM 87 mg/dL (74-106); POTASSIUM 3.6 mmol/L (3.5-5.1); SODIUM 140 mmol/L (136-145)
[2017-12-14] MEDS: TAMSULOSIN HCL 0.4 MG CAP.ER.24H (FP) PO SCH (09:30)
[2017-12-14] MEDS: PANTOPRAZOLE SODIUM 40 MG VIAL IVPUSH SCH (10:25)
[2017-12-14] MEDS: levETIRAcetam 500 MG TABLET (FP) PO SCH (10:26)
--- NOTE | 2017-12-14 10:50 | PN ---
Progress Note, Physician History of Present Illness: Pt seen and examined at bedside. He is awake and alert. He denies shortness of breath. - Current Medication List Current Medications: Active Medications Levetiracetam (Keppra -) 500 mg PO BID [facility] Last Admin: 12/14/17 10:26 Dose: 500 mg Levothyroxine Sodium (Synthroid -) 25 mcg PO DAILY@0700 [facility] Last Admin: 12/14/17 06:50 Dose: 25 mcg Pantoprazole Sodium (Protonix Iv) 40 mg IVPUSH BID [facility] Last Admin: 12/14/17 10:25 Dose: 40 mg Rosuvastatin Calcium (Crestor -) 5 mg PO HS [facility] Last Admin: 12/13/17 21:35 Dose: 5 mg Tamsulosin HCl (Flomax -) 0.4 mg PO DAILY@0830 [facility] Last Admin: 12/14/17 09:30 Dose: 0.4 mg - Objective Vital Signs: Vital Signs Temperature 98.4 F 12/14/17 05:33 Pulse Rate 64 12/14/17 05:33 Respiratory Rate 18 12/14/17 05:33 Blood Pressure 146/72 12/14/17 05:33 O2 Sat by Pulse Oximetry (%) 98 12/13/17 21:00 Constitutional: Yes: Calm Eyes: Yes: Conjunctiva Clear HENT: Yes: Atraumatic Neck: Yes: Supple Cardiovascular: Yes: S1, S2 Respiratory: Yes: CTA Bilaterally Gastrointestinal: Yes: Soft Genitourinary: Yes: WNL Musculoskeletal: Yes: Muscle Weakness Edema: Yes Edema: LLE: 1+, RLE: 1+ Neurological: Yes: Oriented Psychiatric: Yes: Oriented Labs: CBC, BMP 12/14/17 06:00 12/14/17 06:00 INR, PTT INR 1.19 (0.82-1.09) H 12/12/17 06:30 Problem List - Problems (1) CKD (chronic kidney disease) Code(s): N18.9 - CHRONIC KIDNEY DISEASE, UNSPECIFIED (2) Anemia requiring transfusions Code(s): D64.9 - ANEMIA, UNSPECIFIED Assessment/Plan Current Medications Generic Name Dose Route Start Last Admin Trade Name Freq PRN Reason Stop Dose Admin Levetiracetam 500 mg 12/11/17 22:00 12/14/17 10:26 Keppra - PO 500 mg BID MICHAEL Administration Levothyroxine Sodium 25 mcg 12/12/17 07:00 12/14/17 06:50 Synthroid - PO 25 mcg DAILY@0700 MICHAEL Administration Pantoprazole Sodium 40 mg 12/11/17 22:00 12/14/17 10:25 Protonix Iv IVPUSH 40 mg BID MICHAEL Administration Rosuvastatin Calcium 5 mg 12/11/17 22:00 12/13/17 21:35 Crestor - PO 5 mg HS MICHAEL Administration Tamsulosin HCl 0.4 mg 12/12/17 08:30 12/14/17 09:30 Flomax - PO 0.4 mg DAILY@0830 MICHAEL Administration Impression 1. CKD 2. CHF 3. BPH 4. a. fib 5. CAD 6. epilepsy 7. proteinuria 8. anemia Plan - renal function is stable - hg improved - will give PO lasix - will see pt in office - anemia workup per primary team - avoid nsaids - repeat labs in am - will follow Dr Tipton
--- NOTE | 2017-12-14 11:36 | DS ---
Physical Examination Vital Signs: Vital Signs Temperature 98.2 F 12/14/17 11:04 Pulse Rate 84 12/14/17 11:04 Respiratory Rate 16 12/14/17 11:04 Blood Pressure 144/78 12/14/17 11:04 O2 Sat by Pulse Oximetry (%) 98 12/13/17 21:00 Constitutional: Yes: Calm Neck: Yes: Trachea Midline Cardiovascular: Yes: Regular Rate and Rhythm, S1, S2 Respiratory: Yes: CTA Bilaterally Gastrointestinal: Yes: Normal Bowel Sounds, Soft Psychiatric: Yes: Alert, Oriented Labs: CBC, BMP 12/14/17 06:00 12/14/17 06:00 Discharge Summary Reason For Visit: ANEMIA,OCCULT BLOOD IN STOOL Current Active Problems Anemia requiring transfusions (Acute) BPH (benign prostatic hyperplasia) (Acute) CKD (chronic kidney disease) (Acute) History of colon cancer (Acute) Positive occult stool blood test (Acute) Seizure (Acute) Hospital Course: - Primary Care Physician PCP: Chavez Montes De Oca - Admission Chief Complaint: sent in by PCP for low h/h History of Present Illness: 77-year-old male with history of CHF, colon cancer CAD, A. fib, CVA with right- sided weakness, and seizure history presents the emergency room for evaluation of low hemoglobin and hematocrit. Patient had blood work done a few days ago with Dr. Curtis who noted his H&H to be 5.8. Patient also states has been fatigued and mildly shortness of breath with minimal activity. Patient with recent admission here to [facility] secondary to anemia related to multiple factors including cardiac and possible GI origin. Patient upon discharge was to follow up with GI for an endoscopy/colonoscopy that has not as of yet. Patient denies chest pain, cough, fever or chills. Patient also denies passing bright red blood in stool or urine. Timing/Duration: getting worse Severity: mild, moderate Associated Symptoms: reports: shortness of breath, weakness in ER h/h 6.1/19.7 and guaicic positive History Source: Patient - Past Medical History CONSTRUCTION MGR: Yes: CVA, Seizure Cardiovascular: Yes: CAD, CHF, HTN, Hyperlipdemia Renal/: Yes: Renal Inusuff (see HPI) Endocrine: Yes: Diabetes Mellitus, Other (pituitary adenoma resection) hospital course: seen by GI and heme s/p 4 units of prbc in hospital stool occult positive then became negative- no overt signs of bleeding had egd and colonscopy in October negative no abnormalities no h/h is 9.8/ to get capsule study as outpatient - Instructions Referrals: Matt Mcintyre MD [Staff Physician] - (to get capsule study) Chavez Montes De Oca MD [Primary Care Provider] - 2 Weeks (arrange capsule study with GI as outpatient) Disposition: HOME - Home Medications Comprehensive Discharge Medication List: Ambulatory Orders Tamsulosin HCl [Flomax -] 0.4 mg PO DAILY 11/20/13 Febuxostat [Uloric -] 80 mg PO DAILY 11/05/17 Lisinopril 2 tablet PO DAILY 11/05/17 Omeprazole 20 mg PO DAILY 11/05/17 Furosemide [Lasix -] 40 mg PO DAILY #30 tablet 11/19/17 Levothyroxine [Synthroid -] 25 mcg PO DAILY@0700 #30 tablet 11/19/17 Metoprolol Succinate [Toprol XL -] 50 mg PO DAILY #30 tab.sr.24h 11/19/17 Polyethylene Glycol 3350 [Miralax 119 gm Btl -] 17 gm PO DAILY #1 bottle Rosuvastatin [Crestor -] 5 mg PO HS #30 tablet 11/19/17 levETIRAcetam [Keppra -] 500 mg PO BID #60 tablet 11/19/17
[2017-12-14 13:40] VITALS: BP 137/65; PULSE 64; TEMP 98.8
== END 2017-12-14 17:32 | disposition home or self-care (01) | DRG 378 ==
LOC: JER 09:27 → JERBED 12:53 → J7W 15:17
PROVIDERS: ADMIT Student in an Organized Health Care Education/Training Program; ATTEND Student in an Organized Health Care Education/Training Program
PROC: 30233N1 Transfusion of Nonautologous Red Blood Cells into Peripheral Vein, Percutaneous Approach (ICD-10-PCS; principal; 2017-12-11)
DX: K92.2 Gastrointestinal hemorrhage, unspecified (principal); I69.351 Hemiplegia and hemiparesis following cerebral infarction affecting right dominant side; D62 Acute posthemorrhagic anemia; E03.9 Hypothyroidism, unspecified; N40.0 Benign prostatic hyperplasia without lower urinary tract symptoms; I25.10 Atherosclerotic heart disease of native coronary artery without angina pectoris; Z85.038 Personal history of other malignant neoplasm of large intestine; N18.9 Chronic kidney disease, unspecified; I50.9 Heart failure, unspecified; G40.909 Epilepsy, unspecified, not intractable, without status epilepticus; I48.0 Paroxysmal atrial fibrillation; D69.6 Thrombocytopenia, unspecified; Z87.891 Personal history of nicotine dependence
CPT/HCPCS: 36415; 36430; 71045-TC-FY; 80048; 80053; 81003; 82150; 82272; 82728; 83010; 83540; 83550; 83615; 83690; 83735; 83880; 84100; 84484; 85025; 85610; 86850; 86900; 86901; 86922; 97116-GP; 97161-GP; 99283-25; P9038; P9058

== ENCOUNTER 2019-02-23 14:16 | Emergency (ER) | payer OTHER, BC ==
[2019-02-23 14:31] VITALS: BP 161/74; PULSE 65; TEMP 98.2; BMI 27.6
--- NOTE | 2019-02-23 16:09 | PDOC ---
*Physical Exam - Vital Signs Last Vital Signs Temp Pulse Resp BP Pulse Ox 98.2 F 65 16 161/74 99 02/23/19 14:20 02/23/19 14:20 02/23/19 14:20 02/23/19 14:20 02/23/19 14:20 Medical Decision Making - Medical Decision Making 02/23/19 16:06 Pt was initially triaged to vertical for "wound" after evaluation patient requires a private room for possible infectious dermatological findings with numerous open wounds to upper extremities neck and chest. Patient is currently on doxycycline for an unknown reason (likely dermatological prescribed by dermatology). Patient with no history of diabetes and only recent travel was [place] recently. Case discussed with attending and patient is waiting to be moved to room 8. *DC/Admit/Observation/Transfer - Referrals Referrals: Chavez Montes De Oca MD [Primary Care Provider] - - Patient Instructions - Post Discharge Activity
--- NOTE | 2019-02-23 18:27 | PDOC ---
History of Present Illness - General Chief Complaint: Wound Stated Complaint: Allergic Reaction Time Seen by Provider: 02/23/19 15:27 History Source: Patient Exam Limitations: No Limitations - History of Present Illness Initial Comments: 79 yo M with a hx of hypothyroidism, HTN, seizure disorder, atrial fibrillation , colon cancer (s/p resection; last colonscopy 10/2017 with no significant findings), anemia (secondary to bleeding ulcer 2018 in the duodenum), and brain cancer presents to the emergency department with blisters located throughout his body. Per the patient, he stated they began one month ago spontaneously. They are not pruitic, but the blisters unroof easily with palpation. The patient denies fevers, chills, nausea, vomiting, diarrhea, hematuria, abdominal pain, dysuria, hematuria. Past History - Past Medical History Allergies/Adverse Reactions: Allergies Allergy/AdvReac Type Severity Reaction Status Date / Time No Known Allergies Allergy Verified 02/23/19 14:27 Home Medications: Ambulatory Orders Tamsulosin HCl [Flomax -] 0.4 mg PO DAILY 11/20/13 Febuxostat [Uloric -] 80 mg PO DAILY 11/05/17 Furosemide [Lasix -] 40 mg PO DAILY #30 tablet 11/19/17 Levothyroxine [Synthroid -] 25 mcg PO DAILY@0700 #30 tablet 11/19/17 Metoprolol Succinate [Toprol XL -] 50 mg PO DAILY #30 tab.sr.24h 11/19/17 Rosuvastatin [Crestor -] 5 mg PO HS #30 tablet 11/19/17 levETIRAcetam [Keppra -] 500 mg PO BID #60 tablet 11/19/17 Furosemide [Lasix -] 40 mg PO DAILY #30 tablet 01/18/18 Pantoprazole Sodium [Protonix -] 40 mg PO BID #30 tablet.ec 01/18/18 Potassium Chloride [Potassium Chloride Oral Liquid] 40 meq PO DAILY #30 cup 09/02 levETIRAcetam [Keppra -] 500 mg PO BID #60 tablet 01/18/18 Anemia: Yes Cancer: Yes (colon) Cardiac Disorders: Yes (CHF, CAD, AF) CVA: Yes (R sided weakness) COPD: No CHF: Yes Diabetes: No (denies) HTN: No (denies) Seizures: Yes - Surgical History Abdominal Surgery: Yes (HERNIA) Appendectomy: Yes Cardiac Surgery: Yes (STENT X 1) Neurologic Surgery: Yes (brain tumor) Orthopedic Surgery: Yes (L. elbow) - Immunization History Immunization Up to Date: Yes - Suicide/Smoking/Psychosocial Hx Smoking Status: Yes Smoking History: Former smoker Have you smoked in the past 12 months: No Number of Cigarettes Smoked Daily: 4 If you are a former smoker, when did you quit?: 2009 Information on smoking cessation initiated: No 'Breaking Loose' booklet given: 07/07/15 Hx Alcohol Use: No Drug/Substance Use Hx: No Substance Use Type: None Hx Substance Use Treatment: No Review of Systems - Review of Systems Able to Perform ROS?: Yes Is the patient limited German proficient: No Constitutional: No: Chills, Diaphoresis, Fever, Weakness HEENTM: No: Eye Pain, Ear Pain, Nose Pain, Throat Pain, Mouth Pain Respiratory: No: Cough, Shortness of Breath, Hemoptysis Cardiac (ROS): No: Chest Pain, Lightheadedness, Palpitations, Syncope, Chest Tightness ABD/GI: No: Constipated, Diarrhea, Nausea, Rectal Bleeding, Vomiting, Tarry Stools : No: Burning, Dysuria, Hematuria, Incontinence Musculoskeletal: No: Back Pain, Joint Pain, Neck Pain Integumentary: Yes: Lesions, Rash Neurological: No: Headache, Numbness, Tingling, Tremors Psychiatric: No: Change in Appetite Endocrine: No: Unexplained Weight Gain Hematologic/Lymphatic: No: Anemia *Physical Exam - Vital Signs Last Vital Signs Temp Pulse Resp BP Pulse Ox 98.2 F 65 16 161/74 99 02/23/19 14:20 02/23/19 14:20 02/23/19 14:20 02/23/19 14:20 02/23/19 14:20 - Physical Exam General Appearance: Yes: Nourished, Appropriately Dressed. No: Apparent Distress, Intoxicated HEENT: positive: EOMI, RAUL, Normal Voice, Symmetrical, Pharynx Normal, Hearing Grossly Normal. negative: Pale Conjunctivae, Scleral Icterus (R), Scleral Icterus (L), Muffled/Hoarse voice, Pharyngeal Erythema, Tonsillar Exudate, Tonsillar Erythema, Nasal Congestion, Rhinorrhea, Excessive drooling Neck: positive: Trachea midline, Supple. negative: Tender, Lymphadenopathy (R) , Lymphadenopathy (L), Tender lateral, Tender midline Respiratory/Chest: positive: Lungs Clear, Normal Breath Sounds. negative: Chest Tender, Respiratory Distress, Accessory Muscle Use, Crackles, Rales, Rhonchi, Stridor, Wheezing Cardiovascular: positive: Regular Rhythm, Regular Rate, S1, S2. negative: Systolic Murmur Gastrointestinal/Abdominal: positive: Normal Bowel Sounds, Flat, Soft. negative : Tender Lymphatic: negative: Adenopathy Musculoskeletal: positive: Normal Inspection. negative: CVA Tenderness, Vertebral Tenderness Extremity: positive: Normal Capillary Refill, Normal Range of Motion. negative : Normal Inspection (lesions and blisters), Tender, Swelling, Calf Tenderness Integumentary: positive: Other (multiple thin walled bullae located throughout the UE bilaterally, chest, and shoulders with multiple de-roofed. no purulent discharge.) Neurologic: positive: ed educational aide II-XII NML intact, Fully Oriented, Alert, Normal Mood/ Affect, Normal Response, Motor Strength 10/20 ED Treatment Course - LABORATORY CBC & Chemistry Diagram: 02/23/19 19:15 02/23/19 19:15 Medical Decision Making - Medical Decision Making 79 yo M with a hx of hypothyroidism, HTN, seizure disorder, atrial fibrillation , colon cancer (s/p resection; last colonscopy 10/2017 with no significant findings), anemia (secondary to bleeding ulcer 2018 in the duodenum), and brain cancer presents to the emergency department with blisters located throughout his body. Initial vitals: Initial Vital Signs Temp Pulse Resp BP Pulse Ox 98.2 F 65 16 161/74 99 02/23/19 14:20 02/23/19 14:20 02/23/19 14:20 02/23/19 14:20 02/23/19 14:20 Work up: ddx: patient has blisters throughout the body that began as a eczematic darkened patch with blister formation. no fever or chills. 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 patient will get cbc and cmp Laboratory Tests 02/23/19 02/23/19 19:15 19:15 WBC 7.5 RBC 4.02 Hgb 11.3 L Hct 35.5 D MCV 88.5 MCH 28.2 MCHC 31.9 L RDW 14.6 Plt Count 171 D MPV 7.6 Absolute Neuts (auto) 5.1 Neutrophils % 67.4 Lymphocytes % 20.0 Monocytes % 7.2 Eosinophils % 4.4 D Basophils % 1.0 Nucleated RBC % 0 Sodium 139 Potassium 4.2 Chloride 103 Carbon Dioxide 28 Anion Gap 8 BUN 27.9 H Creatinine 2.0 H Est GFR (CKD-EPI)AfAm 35.23 Est GFR (CKD-EPI)NonAf 30.40 Random Glucose 122 H Calcium 8.2 L Total Bilirubin 0.4 AST 19 ALT 11 L Alkaline Phosphatase 84 Total Protein 7.2 Albumin 3.3 L patient has no anemia. in previous visits he had substantial anemia secondary to a duodenum ulcer. his creatinine is elevated but near his baseline in the past. the patient to be discharged will follow up with his dermatology. he has an appointment for dermatology this sunday with Dr. Palafox per the patient' s . Patient to be discharged with bacitracin on his blisters. Dispo: Discharge *DC/Admit/Observation/Transfer Diagnosis at time of Disposition: Blisters of multiple sites - Discharge Dispostion Disposition: HOME Condition at time of disposition: Good Decision to Admit order: No - Referrals Referrals: Chavez Montes De Oca MD [Primary Care Provider] - Carol Wells MD [Staff Physician] - Bigg Tsai MD [Non Staff, Medical] - Jimmie Huerta MD [Non Staff, Medical] - Daryl Capone MD [Non Staff, Medical] - Gafrield Kang MD [Non Staff, Medical] - Barrington Angel [Staff Physician] - - Patient Instructions Printed Discharge Instructions: DI for Wound Infection Additional Instructions: You were seen in the emergency department for the evaluation of your blisters. Your hemoglobin is within normal limits and your creatinine, while elevated, is normal for your baseline levels. Please follow up with your dermatology appointment for this Sunday. Please continue to apply antibiotic ointment that was given to you in the emergency department. Please do not pop your blisters they act as a natural bandaid. Please return to the emergency department if you have worsening pain or new concerning symptoms such as fevers , chills, SOB, chest pain, or new purulent discharge from the blister sites. Thank you. - Post Discharge Activity
--- NOTE | 2019-02-23 18:54 | PDOC ---
Attending Attestation - Resident Resident Name: Dl Huerta - ED Attending Attestation I have performed the following: I have examined & evaluated the patient, The case was reviewed & discussed with the resident, I agree w/resident's findings & plan, Exceptions are as noted - HPI HPI: 02/23/19 18:53 79 yo male BIBA from home for bullae present on his b/l arms,neck and thighs - Physicial Exam PE: 02/23/19 19:27 alert and conversant 79 yo male with c/o bullea on his arms,thighs and neck for many week. He eants to have these "blisters popped" head no acute trauma eyes left cornea opaque lungs cta b/l cvs [id number] abd nontender ext bullae on his forearms ,neck and thighs, no cellulitis,no fluctuance neuro alert and conversant - Medical Decision Making 02/23/19 19:36 79-year-old male brought in by ambulance from home for "blisters that he's had for at least one month echo history significant for brain tumor, colon cancer,afib 02/23/19 20:06 cbc is unremarkable,no anemia 02/23/19 20:50 review of chemistries shows chronically elevated creatinine ,today it's 2.0 pt is not febrile,has no leukocytosis, no cellulitis pt does have an appt w the coffee maker on Sun. his has the appt card for the coffee maker imp bullae plan [facility] dermatology as outpt
[2019-02-23 19:20] LABS: EOS % 4.4 % (0-4.5); HEMATOCRIT 35.5 % (35.4-49); HEMOGLOBIN 11.3 GM/dL (11.7-16.9); MCH 28.2 pg (25.7-33.7); MCHC 31.9 g/dl (32.0-35.9); MEAN CELL VOLUME 88.5 fl (80-96); MEAN PLT VOLUME 7.6 fl (7.5-11.1); MONO % 7.2 % (3.8-10.2); NEUT % 67.4 % (42.8-82.8); PLATELET COUNT 171 K/MM3 (134-434); RBC 4.02 M/mm3 (4.00-5.60); RDW 14.6 % (11.9-15.9); WHITE BLOOD COUNT 7.5 K/mm3 (4.0-10.0)
[2019-02-23 20:26] LABS: ALBUMIN 3.3 g/dl (3.4-5.0); BILIRUBIN,TOTAL 0.4 mg/dL (0.2-1); BLOOD UREA NITROGEN 27.9 mg/dL (7-18); CALCIUM 8.2 mg/dL (8.5-10.1); POTASSIUM 4.2 mmol/L (3.5-5.1); TOT PROT 7.2 g/dl (6.4-8.2)
[2019-02-23] MEDS ORDERED: BACITRACIN 15 GM TUBE TOPICAL OINTMENT TP ONE (20:50)
[2019-02-23] MEDS ORDERED: BACITRACIN 15 GM TUBE TOPICAL OINTMENT ONE ×2 (21:07→21:12)
== END 2019-02-23 21:45 | disposition home or self-care (01) ==
LOC: JER 14:16
DX: R23.8 Other skin changes (principal); I25.10 Atherosclerotic heart disease of native coronary artery without angina pectoris; I11.0 Hypertensive heart disease with heart failure; Z95.5 Presence of coronary angioplasty implant and graft; I50.9 Heart failure, unspecified; Z87.891 Personal history of nicotine dependence; I48.91 Unspecified atrial fibrillation; I69.851 Hemiplegia and hemiparesis following other cerebrovascular disease affecting right dominant side; E03.9 Hypothyroidism, unspecified; G40.909 Epilepsy, unspecified, not intractable, without status epilepticus; D64.9 Anemia, unspecified; Z85.038 Personal history of other malignant neoplasm of large intestine; Z85.841 Personal history of malignant neoplasm of brain
CPT/HCPCS: 36415; 80053; 85025; 99282-25

== ENCOUNTER 2019-07-14 18:24 | Inpatient (IN) | payer OTHER, BC ==
--- NOTE | 2019-07-14 18:50 | PDOC ---
Rapid Medical Evaluation Chief Complaint: Edema Time Seen by Provider: 07/14/19 18:47 Medical Evaluation: Allergies Allergy/AdvReac Type Severity Reaction Status Date / Time No Known Allergies Allergy Verified 02/23/19 14:27 07/14/19 18:49 Pt c/o: weak, sob, pale, and edema worsening over the past weeks Pt on brief exam: pale appearing, generalized edema, 94 % ra, lethargic pt ordered for: labs, cxr, ekg, urine Pt to proceed to the ED Discharge Disposition - Diagnosis Anasarca CHF exacerbation Qualifiers: Heart failure type: unspecified Qualified Code(s): I50.9 - Heart failure, unspecified - Discharge Dispostion Condition at time of disposition: Stable - Referrals - Patient Instructions - Post Discharge Activity
[2019-07-14 20:30] LABS: ALBUMIN 2.6 g/dl (3.4-5.0); BILIRUBIN,TOTAL 0.7 mg/dL (0.2-1); BLOOD UREA NITROGEN 30.1 mg/dL (7-18); CALCIUM 8.1 mg/dL (8.5-10.1); CREATININE 2.4 mg/dL (0.55-1.3); MAGNESIUM 1.7 mg/dL (1.8-2.4); POTASSIUM 4.7 mmol/L (3.5-5.1); TOT PROT 6.2 g/dl (6.4-8.2)
[2019-07-14 21:23] LABS: BASO % 0.6 % (0-2.0); EOS % 0.4 % (0-4.5); HEMATOCRIT 35.9 % (35.4-49); LYMPH % 9.6 % (8-40); MCH 27.9 pg (25.7-33.7); MCHC 30.7 g/dl (32.0-35.9); MEAN CELL VOLUME 90.7 fl (80-96); MEAN PLT VOLUME 7.8 fl (7.5-11.1); MONO % 7.6 % (3.8-10.2); NEUT % 81.8 % (42.8-82.8); PLATELET COUNT 149 K/MM3 (134-434); RBC 3.95 M/mm3 (4.00-5.60); RDW 15.4 % (11.9-15.9); WHITE BLOOD COUNT 9.8 K/mm3 (4.0-10.0)
[2019-07-14] MEDS ORDERED: FUROSEMIDE 40 MG/4 ML INJECTABLE VIAL ONE (21:36)
[2019-07-14] MEDS ORDERED: ALBUTEROL SO4 2.5/IPRATROPIUM 0.5 INH SOL 3 ML VIAL.NEB. NEB ONE ×2 (21:36→21:37)
[2019-07-14] MEDS ORDERED: FUROSEMIDE 40 MG/4 ML INJECTABLE VIAL IVPUSH ONE (21:37)
--- NOTE | 2019-07-14 21:47 | PDOC ---
History of Present Illness - General Chief Complaint: Edema Stated Complaint: LEG SWELLING Time Seen by Provider: 07/14/19 18:47 - History of Present Illness Initial Comments: 07/14/19 21:47 HPI: 79 y/o M with hx of CHF, colon cancer s/p partial resection, CAD s/p stents, Afib (off AC 2/2 GI bleed), CVA with right-sided weakness, pituitary adenoma s/ p resection, and seizure history presenting with facial swelling and SOB. Symptoms have been present for 1-2 weeks but have been worsening. Presented to clinic 4 days ago and was called today with lab results of anemia. Also reporting generalized weakness. Denies fever, chill, chest pain, LH, SANCHEZ, abd pain, n/v, dysuria, heamturia. PMHx: as noted above ROS: as noted SHx: Denies tobacco use; no alcohol use; no rec drugs Allergies: NKDA ROS: GENERAL/CONSTITUTIONAL: No fever or chills. +generalized weakness. HEAD, EYES, EARS, NOSE AND THROAT: No change in vision. No ear pain or discharge. No sore throat. CARDIOVASCULAR: No chest pain; +shortness of breath RESPIRATORY: No cough, wheezing, or hemoptysis. GASTROINTESTINAL: No nausea, vomiting, diarrhea or constipation. GENITOURINARY: No dysuria, frequency, or change in urination. MUSCULOSKELETAL: No joint or muscle swelling or pain. No neck or back pain. SKIN: No rash NEUROLOGIC: No headache, vertigo, loss of consciousness, or change in strength/ sensation. ENDOCRINE: No increased thirst. No abnormal weight change HEMATOLOGIC/LYMPHATIC: No anemia, easy bleeding, or history of blood clots. ALLERGIC/IMMUNOLOGIC: No hives or skin allergy. PE: GENERAL: Awake, alert, increased resp effort with head bobbing HEAD: No signs of trauma, normocephalic, atraumatic EYES: EOMI, sclera anicteric, conjunctiva clear, periorbital edema ENT: Auricles normal inspection, hearing grossly normal, nares patent, oropharynx clear without exudates. Moist mucosa NECK: Normal ROM, no lymphadenopathy LUNGS: increased work of breathing, symmetrical chest rise, rales in BL middle and lower lobes HEART: Regular rate, regular rhythm, normal S1 and S2, no murmur, peripheral pulses 2+ and equal bilaterally. 2+ BL pitting edema ABDOMEN: Soft, nondistended, nontender, normoactive bowel sounds. No guarding, no rebound. No masses. No CVAT MUSCULOSKELETAL: FROM NEUROLOGICAL: Cranial nerves II through XII grossly intact. Normal speech, normal gait, no focal sensorimotor deficits SKIN: Warm, Dry, normal turgor, no rashes or lesions noted Past History - Past Medical History Allergies/Adverse Reactions: Allergies Allergy/AdvReac Type Severity Reaction Status Date / Time No Known Allergies Allergy Verified 07/14/19 21:45 Anemia: Yes Cancer: Yes (colon) Cardiac Disorders: Yes (CHF, CAD, AF) CVA: Yes (R sided weakness) COPD: No CHF: Yes Diabetes: No (denies) HTN: No (denies) Seizures: Yes - Surgical History Abdominal Surgery: Yes (HERNIA) Appendectomy: Yes Cardiac Surgery: Yes (STENT X 1) Neurologic Surgery: Yes (brain tumor) Orthopedic Surgery: Yes (L. elbow) - Immunization History Immunization Up to Date: Yes - Psycho Social/Smoking Cessation Hx Smoking Status: Yes Smoking History: Never smoked Have you smoked in the past 12 months: No Number of Cigarettes Smoked Daily: 4 If you are a former smoker, when did you quit?: 2009 Information on smoking cessation initiated: No 'Breaking Loose' booklet given: 07/07/15 Hx Alcohol Use: No Drug/Substance Use Hx: No Substance Use Type: None Hx Substance Use Treatment: No *Physical Exam - Vital Signs Last Vital Signs Temp Pulse Resp BP Pulse Ox 97.6 F 85 30 H 147/106 H 92 L 07/14/19 18:46 07/14/19 21:40 07/14/19 21:40 07/14/19 21:40 07/14/19 21:40 ED Treatment Course - LABORATORY CBC & Chemistry Diagram: 07/14/19 21:00 07/14/19 19:10 - ADDITIONAL ORDERS Additional order review: Laboratory Results 07/14/19 07/14/19 19:10 19:10 Sodium 140 Potassium 4.7 Chloride 106 Carbon Dioxide 27 Anion Gap 7 L BUN 30.1 H Creatinine 2.4 H Est GFR (CKD-EPI)AfAm 28.26 Est GFR (CKD-EPI)NonAf 24.38 Random Glucose 187 H Calcium 8.1 L Magnesium 1.7 L Total Bilirubin 0.7 AST 31 ALT 14 Alkaline Phosphatase 71 Total Protein 6.2 L Albumin 2.6 L Blood Type B POSITIVE Antibody Screen Negative 07/14/19 07/14/19 21:00 19:10 RBC 3.95 L Cancelled MCV 90.7 Cancelled MCHC 30.7 L Cancelled RDW 15.4 Cancelled MPV 7.8 Cancelled Neutrophils % 81.8 D Cancelled Lymphocytes % 9.6 D Cancelled Monocytes % 7.6 Cancelled Eosinophils % 0.4 D Cancelled Basophils % 0.6 Cancelled - Medications Given in the ED: ED Medications Discontinued Medications Generic Name Dose Route Start Last Admin Trade Name Kelly PRN Reason Stop Dose Admin Albuterol/Ipratropium 1 amp 07/14/19 21:37 07/14/19 21:40 Duoneb - NEB 07/14/19 21:38 1 amp ONCE ONE Administration Furosemide 40 mg 07/14/19 21:37 07/14/19 21:40 Lasix Injection - IVPUSH 07/14/19 21:38 40 mg ONCE ONE Administration Medical Decision Making - Medical Decision Making 07/14/19 22:20 79 y/o M with hx of CHF, colon cancer s/p partial resection, CAD s/p stents, Afib (off AC 2/2 GI bleed), CVA with right-sided weakness, pituitary adenoma s/ p resection, and seizure history presenting with facial swelling and SOB with BL LE edema. VSS, AF. PE with 2+ pitting edema BL and BL rales; also with periorbital edema. -cbc, cmp, crdiac prof, bnp, coags, ekg, cxr -iv lasix, BiPap 07/14/19 22:22 ekg with afib rate controlled cxr with ?BL lower lobe effusion/increased congestion 07/14/19 22:27 will admit for CHF exacerbation 07/14/19 23:38 Cr 2.4 BNP 21,000 Trop 0.13 will admit to [facility] tele unit Discharge - Discharge Information Problems reviewed: Yes Clinical Impression/Diagnosis: Anasarca CHF exacerbation Qualifiers: Heart failure type: unspecified Qualified Code(s): I50.9 - Heart failure, unspecified Condition: Stable - Admission Yes - Follow up/Referral Referrals: Chavez Montes De Oca MD [Primary Care Provider] - - Patient Discharge Instructions - Post Discharge Activity
[2019-07-14 22:03] LABS: ALLENS TEST POSITIVE
[2019-07-14 22:05] LABS: ARTERIAL BLD GAS O2 SATURATION 99.1 % (95-98); ARTERIAL BLOOD GAS BASE EXCESS 3.3 meq/l (-2-2); ARTERIAL BLOOD GAS PCO2 58.8 mmHg (35-45); ARTERIAL BLOOD GAS PO2 172 mmHg (80-100); ARTERIAL BLOOD GAS pH 7.33 (7.35-7.45)
[2019-07-14 22:57] LABS: EPI CELLS 1.8 /HPF (0-5/HPF); HYALINE CASTS 13 /lpf (0-8); URINE APPEARANCE CLEAR; URINE BACTERIA 0.2 /hpf (NEGATIVE); URINE BILIRUBIN NEGATIVE (NEGATIVE); URINE COLOR YELLOW; URINE GLUCOSE (UA) NEGATIVE (NEGATIVE); URINE KETONE NEGATIVE (NEGATIVE); URINE LEUK ESTERASE NEGATIVE (NEGATIVE); URINE NITRITE NEGATIVE (NEGATIVE); URINE PROTEIN 3+ (NEGATIVE); URINE RBC 5 /hpf (0-4); URINE WBC 1 /hpf (0-5)
[2019-07-14 23:04] LABS: N-TERMINAL BNP 21407.7 pg/ml (5-450)
--- NOTE | 2019-07-14 23:22 | PDOC ---
Attending Attestation - Resident Resident Name: Jesus Romo - ED Attending Attestation I have performed the following: I have examined & evaluated the patient, The case was reviewed & discussed with the resident, I agree w/resident's findings & plan, Exceptions are as noted
[2019-07-14 23:31] LABS: INR 1.48 (0.83-1.09); PROTHROMBIN TIME (PATIENT) 17.5 SEC (9.7-13.0)
--- NOTE | 2019-07-14 23:45 | PDOC ---
Documentation entered by Alanna Torres SCRIBE, acting as scribe for Florence Cruz MD. Florence Cruz MD: This documentation has been prepared by the Melissa prince Xhesika, SCRIBE, under my direction and personally reviewed by me in its entirety. I confirm that the documentation accurately reflects all work, treatment, procedures, and medical decision making performed by me. Attending Attestation - Resident Resident Name: Jesus Romo - ED Attending Attestation I have performed the following: I have examined & evaluated the patient, The case was reviewed & discussed with the resident, I agree w/resident's findings & plan, Exceptions are as noted - HPI HPI: 07/14/19 23:28 The patient is an 79 year old male with a significant PMH of CHF, hypothyroidism, anemia, colon cancer s/p partial resection, CAD s/p stents, Afib (off AC 2/2 GI bleed), CVA, pituitary adenoma s/p resection, and seizure who presents to the emergency department for 1 week of SOB. The patient denies chest pain, headache and dizziness. Denies fever, chills, cough, nausea, vomiting, diarrhea and constipation. Allergies: NKDA PCP:Chavez Leong - Physicial Exam PE: 07/14/19 23:28 GENERAL: Awake, alert, and fully oriented HEAD: No signs of trauma NECK: Normal ROM, supple, no lymphadenopathy, JVD, or masses LUNGS:+bilateral rails. No wheezes, and no crackles HEART: +irregular regular rate and rhythm, normal S1 and S2, no murmurs, rubs or gallops ABDOMEN: +protuberant. Soft, nontender, normoactive bowel sounds. No guarding, no rebound. No masses EXTREMITIES: +b/l LE edema. Normal range of motion. No clubbing or cyanosis. No cords, erythema, or tenderness NEUROLOGICAL: Cranial nerves II through XII grossly intact. SKIN: Warm, Dry, +scattered old scarring all over extremities (bullae in the past) - Medical Decision Making 07/14/19 23:45 Past medical history significant for chronic kidney disease, CHF, coronary artery disease, hypothyroidism, A. fib not on any anticoagulation, GI bleed and anemia 07/14/19 23:46 Patient received Lasix 40 mg IV push and diuresed Chest x-ray shows chronic cardiomegaly, CHF BNP greater than 21,000 Troponin equal to 0.13 and will trend Patient admitted to telemetry
[2019-07-15 00:08] LABS: URINE CRYSTALS FEW /hpf
[2019-07-15 00:36] LABS: ARTERIAL BLD GAS O2 SATURATION 98.7 % (95-98); ARTERIAL BLOOD GAS BASE EXCESS 3.5 meq/l (-2-2); ARTERIAL BLOOD GAS PCO2 62.8 mmHg (35-45); ARTERIAL BLOOD GAS PO2 117 mmHg (80-100); ARTERIAL BLOOD GAS pH 7.31 (7.35-7.45)
[2019-07-15 00:37] LABS: ALLENS TEST POSITIVE
--- NOTE | 2019-07-15 01:28 | HP ---
CHIEF COMPLAINT:shortness of breath for 1 -2 weeks, generalized weakness and facial and orbital swelling PCP:Dr. Chavez Montes De Oca HISTORY OF PRESENT ILLNESS: 79 y/o M with hx of systolic congestive heart failure EF 40-45%, moderate mitral regurgitation , stage III chronic kidney disease (creatinine highest at 2.2 ), colon cancer s/p partial resection, CAD s/p stents, atrial fibrillation ( off AC secondary to GI bleed), CVA with right-sided weakness, pituitary adenoma s/p resection,hypothyroidism, BPH and seizure history who presented with facial/ orbital swelling, generalized weakness and SOB for 1-2weeks . As reported symptoms have been present for 1-2 weeks but now has worsened. He was seen at the clinic 4 days ago and was called today with labs resulting with anemia. He denied fever, chills, chest pain, headache, abdominal pain, nausea, vomiting , dysuria, or heamturia. ER course was notable for:Acute on Chronic Systolic Congestive Heart Failure ( elevated BNP, CXR w/ bilateral pulmonary vascular congestion, initially was on BIPAP but was weaned to O2 therapy 4 L by NC and saturation levels at 95%. Labs notable for BNP 21,407, creatinine 2.4, troponoin 0.13 , hgb11 and hct 32.9 EKG- atrial fibrillation rate 70's Prior Echo- CMP with mild to mod reduced EF (40-45%). mild-mod pulm HTN with no signif RV dilation or hypokinesis. MR appears likely only moderate Recent Travel: no PAST MEDICAL HISTORY: systolic congestive heart failure stage III chronic kidney disease (baseline creatinine 2.0) CAD s/p stents, atrial fibrillation (off AC secondary to GI bleed) CVA with right-sided weakness seizure history PAST SURGICAL HISTORY: pituitary adenoma s/p resection colon cancer s/p partial resection, Social History: Smoking:no Alcohol:no Drugs: no Allergies No Known Allergies Allergy (Verified 07/14/19 21:45) HOME MEDICATIONS: Home Medications Medication Instructions Recorded Amlodipine Besylate [Norvasc -] 5 mg PO DAILY 07/15/19 Furosemide [Lasix] 20 mg PO BID 07/15/19 Levothyroxine [Synthroid -] 25 mcg PO DAILY 07/15/19 Mycophenolate Mofetil [Cellcept -] 500 mg PO DAILY 07/15/19 Niacin [Niaspan] 750 mg PO DAILY 07/15/19 Tamsulosin HCl [Flomax] 0.4 mg PO DAILY 07/15/19 levETIRAcetam [Keppra -] 500 mg PO BID 07/15/19 predniSONE [Deltasone -] 40 mg PO BID 07/15/19 REVIEW OF SYSTEMS CONSTITUTIONAL: Absent: fever, chills, diaphoresis, generalized weakness, malaise, loss of appetite, weight change HEENT: Absent: rhinorrhea, nasal congestion, throat pain, throat swelling, difficulty swallowing, mouth swelling, ear pain, eye swelling , visual changes CARDIOVASCULAR: Absent: chest pain, syncope, palpitations, irregular heart rate, lightheadedness , peripheral edema RESPIRATORY: Absent: cough, shortness of breath, dyspnea with exertion, orthopnea, wheezing, stridor, hemoptysis GASTROINTESTINAL: Absent: abdominal pain, abdominal distension, nausea, vomiting, diarrhea, constipation, melena, hematochezia GENITOURINARY: Absent: dysuria, frequency, urgency, hesitancy, hematuria, flank pain, genital pain MUSCULOSKELETAL: Absent: myalgia, arthralgia, joint swelling, back pain, neck pain SKIN: Absent: rash, itching, pallor HEMATOLOGIC/IMMUNOLOGIC: Absent: easy bleeding, easy bruising, lymphadenopathy, frequent infections ENDOCRINE: Absent: unexplained weight gain, unexplained weight loss, heat intolerance, cold intolerance NEUROLOGIC: Absent: headache, focal weakness or paresthesias, dizziness, unsteady gait, seizure, mental status changes, bladder or bowel incontinence PSYCHIATRIC: Absent: anxiety, depression, suicidal or homicidal ideation, hallucinations. PHYSICAL EXAMINATION Vital Signs - 24 hr 07/14/19 07/14/19 07/14/19 18:46 21:40 21:48 Temperature 97.6 F Pulse Rate 78 Pulse Rate [ 85 Apical] Respiratory 16 30 H 24 H Rate Blood Pressure 126/67 Blood Pressure 147/106 H [Right Arm] O2 Sat by Pulse 94 L 92 L 100 Oximetry (%) 07/14/19 07/14/19 07/14/19 22:05 22:40 22:43 Temperature Pulse Rate Pulse Rate [ Apical] Respiratory Rate Blood Pressure Blood Pressure 104/81 [Right Arm] O2 Sat by Pulse 100 100 Oximetry (%) 07/15/19 00:18 Temperature Pulse Rate Pulse Rate [ 72 Apical] Respiratory 22 H Rate Blood Pressure Blood Pressure [Right Arm] O2 Sat by Pulse 98 Oximetry (%) GENERAL: opens eyes on command no acute distress HEAD: normal EYES: pupils equal, round and reactive to light bilateral orbital swelling noted EARS, NOSE, THROAT: ears normal, nares patent, oropharynx clear without exudates NECK: +JVD LUNGS: breath sounds diminished bilaterally non labored breathing effort no use of accessory muscles HEART: irregualr rate and rhythm ABDOMEN: soft nontender distended, normoactive bowel sounds + puri MUSCULOSKELETAL:limited range of motion UPPER EXTREMITIES: warm nail beds w/ good cap refill LOWER EXTREMITIES:2+ edema present bilaterally NEUROLOGICAL: speech clear right sided weakness PSYCHIATRIC: cooperative SKIN: warm dry lesions noted to upper extremities Laboratory Results - last 24 hr 07/14/19 07/14/19 07/14/19 19:10 19:10 19:10 WBC Cancelled Corrected WBC (auto) Cancelled RBC Cancelled Hgb Cancelled Hct Cancelled MCV Cancelled MCH Cancelled MCHC Cancelled RDW Cancelled Plt Count Cancelled MPV Cancelled Absolute Neuts (auto) Cancelled Neutrophils % Cancelled Lymphocytes % Cancelled Monocytes % Cancelled Eosinophils % Cancelled Basophils % Cancelled Nucleated RBC % Cancelled Platelet Estimate Cancelled Platelet Comment Cancelled PT with INR INR PTT (Actin FS) Anticoagulation Therapy Puncture Site ABG pH ABG pCO2 at Pt Temp ABG pO2 at Pt Temp ABG HCO3 ABG O2 Sat (Measured) ABG O2 Content ABG Base Excess Ishan Test O2 Delivery Device Oxygen Flow Rate Vent Mode Vent Rate Mechanical Rate Pressure Support Vent Sodium 140 Potassium 4.7 Chloride 106 Carbon Dioxide 27 Anion Gap 7 L BUN 30.1 H Creatinine 2.4 H Est GFR (CKD-EPI)AfAm 28.26 Est GFR (CKD-EPI)NonAf 24.38 Random Glucose 187 H Calcium 8.1 L Magnesium 1.7 L Total Bilirubin 0.7 AST 31 ALT 14 Alkaline Phosphatase 71 Creatine Kinase 112 CK-MB (CK-2) 1.7 Troponin I 0.13 H B-Natriuretic Peptide 48290.7 H Total Protein 6.2 L Albumin 2.6 L Urine Color Urine Appearance Urine pH Ur Specific [place] Urine Protein Urine Glucose (UA) Urine Ketones Urine Blood Urine Nitrite Urine Bilirubin Urine Urobilinogen Ur Leukocyte Esterase Urine WBC (Auto) Urine RBC (Auto) Urine Casts (Auto) U Pathogenic Cast Auto U Epithel Cells (Auto) Urine Crystals (Auto) Urine Bacteria (Auto) Blood Type B POSITIVE Antibody Screen Negative 07/14/19 07/14/19 07/14/19 21:00 21:50 22:25 WBC 9.8 Corrected WBC (auto) RBC 3.95 L Hgb 11.0 L Hct 35.9 MCV 90.7 MCH 27.9 MCHC 30.7 L RDW 15.4 Plt Count 149 MPV 7.8 Absolute Neuts (auto) 8.0 Neutrophils % 81.8 D Lymphocytes % 9.6 D Monocytes % 7.6 Eosinophils % 0.4 D Basophils % 0.6 Nucleated RBC % 0 Platelet Estimate Platelet Comment PT with INR INR PTT (Actin FS) Anticoagulation Therapy No Result Required. Puncture Site Right radial ABG pH 7.33 L ABG pCO2 at Pt Temp 58.8 H ABG pO2 at Pt Temp 172 H ABG HCO3 29.9 H ABG O2 Sat (Measured) 99.1 H ABG O2 Content 15.3 ABG Base Excess 3.3 H Ishan Test Positive O2 Delivery Device Bipap Oxygen Flow Rate 40% Vent Mode S/t Vent Rate 16 Mechanical Rate No Result Required. Pressure Support Vent 12/6 Sodium Potassium Chloride Carbon Dioxide Anion Gap BUN Creatinine Est GFR (CKD-EPI)AfAm Est GFR (CKD-EPI)NonAf Random Glucose Calcium Magnesium Total Bilirubin AST ALT Alkaline Phosphatase Creatine Kinase CK-MB (CK-2) Troponin I B-Natriuretic Peptide Total Protein Albumin Urine Color Yellow Urine Appearance Clear Urine pH 5.0 Ur Specific [place] 1.014 Urine Protein 3+ H Urine Glucose (UA) Negative Urine Ketones Negative Urine Blood 1+ H Urine Nitrite Negative Urine Bilirubin Negative Urine Urobilinogen 1.0 Ur Leukocyte Esterase Negative Urine WBC (Auto) 1 Urine RBC (Auto) 5 Urine Casts (Auto) 13 U Pathogenic Cast Auto none seen U Epithel Cells (Auto) 1.8 Urine Crystals (Auto) Few Urine Bacteria (Auto) 0.2 Blood Type Antibody Screen 07/14/19 07/14/19 07/15/19 22:46 22:46 00:00 WBC Corrected WBC (auto) RBC Hgb Hct MCV MCH MCHC RDW Plt Count MPV Absolute Neuts (auto) Neutrophils % Lymphocytes % Monocytes % Eosinophils % Basophils % Nucleated RBC % Platelet Estimate Platelet Comment PT with INR 17.50 H INR 1.48 H PTT (Actin FS) 39.8 H Anticoagulation Therapy No Result Required. Puncture Site Right radial ABG pH 7.31 L ABG pCO2 at Pt Temp 62.8 H ABG pO2 at Pt Temp 117 H ABG HCO3 30.4 H ABG O2 Sat (Measured) 98.7 H ABG O2 Content 14.2 ABG Base Excess 3.5 H Ishan Test Positive O2 Delivery Device Bipap Oxygen Flow Rate 40% Vent Mode S/t Vent Rate 16 Mechanical Rate Bipap Pressure Support Vent 12/6 Sodium Potassium Chloride Carbon Dioxide Anion Gap BUN Creatinine Est GFR (CKD-EPI)AfAm Est GFR (CKD-EPI)NonAf Random Glucose Calcium Magnesium Total Bilirubin AST ALT Alkaline Phosphatase Creatine Kinase CK-MB (CK-2) Troponin I B-Natriuretic Peptide Total Protein Albumin Urine Color Urine Appearance Urine pH Ur Specific [place] Urine Protein Urine Glucose (UA) Urine Ketones Urine Blood Urine Nitrite Urine Bilirubin Urine Urobilinogen Ur Leukocyte Esterase Urine WBC (Auto) Urine RBC (Auto) Urine Casts (Auto) U Pathogenic Cast Auto U Epithel Cells (Auto) Urine Crystals (Auto) Urine Bacteria (Auto) Blood Type Antibody Screen Assessment/Plan Mr. Cruz is an 79 year old male with hx of systolic congestive heart failure EF 40-45%, stage III chronic kidney disease, colon cancer s/p partial resection , CAD s/p stents, atrial fibrillation (off AC secondary to GI bleed), CVA with right-sided weakness, pituitary adenoma s/p resection, and seizure history presenting with facial/orbital swelling, generalized weakness and worsening SOB for 1-2 weeks . He was seen at the clinic 4 days ago and was called today with labs resulted with anemia. #1 Acute on Chronic Congestive Heart Failure BNP elevated, on clinical exam has significant signs of fluid overload, creatinine 2.4, received IV lasix 40 mg once with good diuresis(has jaxson), electrolytes WNL Continue with IV lasix 40mg twice daily with close monitoring of renal studies, electrolytes and strict I&O's Echocardiogram ordered to evalute LVEF and progression of mitral regurgitation Cardiology- Dr. Jerome consulted #2 Hx Chronic Kidney Disease (Stage III) Creatinine 2.4 (maximum creatinine recorded 2.2) Renal Consulted- Dr. Tipton #3 Elevated Troponin/ Hx CAD with Stents He denies active anginal complaints , EKG with no signs of acute ischemia Continue to trend troponins and this is likely demand mediated Not on asa due to hx of anemia suggest to add statin therapy in this setting #4 Atrial Fibrillation Rate controlled(no rate control meds) not on anticoagulation secondary to GI Bleed in past #5 Anemia Stable ,hgb11/hct 35.9, no evidence of active bleeding, BP normotensive Check stool guiac Check iron studies Consider GI evaluation in am Continue to monitor closely CBC #6 Seizures Continue with home dosage of Keppra #7 Hypothyroidism Continue synthroid #8 BPH Continue tamulosin FEN low sodium diet monitor electrolytes closely with diuresis DVT Prophylaxis lovenox 40mg once daily Visit type - Emergency Visit Emergency Visit: Yes ED Registration Date: 07/14/19 Care time: The patient presented to the Emergency Department on the above date and was hospitalized for further evaluation of their emergent condition. - New Patient This patient is new to me today: Yes Date on this admission: 07/15/19 - Critical Care Critical Care patient: No
[2019-07-15] MEDS: LEVOTHYROXINE NA 25 MCG TABLET (FP) PO SCH (06:29)
[2019-07-15] MEDS: FUROSEMIDE 40 MG/4 ML INJECTABLE VIAL IVPUSH SCH ×2 (06:29→13:53)
--- NOTE | 2019-07-15 08:45 | PN ---
Progress Note, Physician - Current Medication List Current Medications: Active Medications Amlodipine Besylate (Norvasc -) 5 mg PO DAILY [facility] Furosemide (Lasix Injection -) 40 mg IVPUSH BID@0600,1400 [facility] Last Admin: 07/15/19 06:29 Dose: 40 mg Levetiracetam (Keppra -) 500 mg PO BID [facility] Levothyroxine Sodium (Synthroid -) 25 mcg PO DAILY@0700 [facility] Last Admin: 07/15/19 06:29 Dose: 25 mcg Mycophenolate Mofetil (Cellcept -) 500 mg PO DAILY [facility] Non-Formulary Medication (Niacin [Niaspan]) 750 mg PO DAILY [facility] Prednisone (Deltasone -) 40 mg PO BID [facility] Tamsulosin HCl (Flomax -) 0.4 mg PO DAILY@0830 [facility] - Objective Vital Signs: Vital Signs Temperature 98.1 F 07/15/19 04:00 Pulse Rate 76 07/15/19 06:00 Respiratory Rate 23 H 07/15/19 06:00 Blood Pressure 114/75 07/15/19 06:00 O2 Sat by Pulse Oximetry (%) 96 07/15/19 08:22 Cardiovascular: Yes: S1, S2 Respiratory: Yes: Regular, CTA Bilaterally Gastrointestinal: Yes: Normal Bowel Sounds, Soft Genitourinary: Yes: [place] Present Labs: CBC, BMP 07/14/19 21:00 07/14/19 19:10 INR, PTT INR 1.48 (0.83-1.09) H 07/14/19 22:46 Problem List - Problems (1) CHF exacerbation Assessment/Plan: Continue with IV lasix 40mg twice daily close monitoring of renal studies, electrolytes and strict I&O's Echocardiogram Cardiology- Elevated Troponin/ Hx CAD with Stents He denies CP Continue to trend troponins Code(s): I50.9 - HEART FAILURE, UNSPECIFIED Qualifiers: Heart failure type: unspecified Qualified Code(s): I50.9 - Heart failure, unspecified (2) Anemia Assessment/Plan: Check stool guiac Check iron studies Continue to monitor closely CBC Code(s): D64.9 - ANEMIA, UNSPECIFIED (3) Afib Assessment/Plan: Rate controlled(no rate control meds) not on anticoagulation secondary to GI Bleed in past Code(s): I48.91 - UNSPECIFIED ATRIAL FIBRILLATION Qualifiers: Atrial fibrillation type: paroxysmal Qualified Code(s): I48.0 - Paroxysmal atrial fibrillation (4) CKD (chronic kidney disease) Assessment/Plan: Monitor Creatinine Renal Consulted Code(s): N18.9 - CHRONIC KIDNEY DISEASE, UNSPECIFIED (5) Diabetes mellitus Code(s): E11.9 - TYPE 2 DIABETES MELLITUS WITHOUT COMPLICATIONS (6) Gastritis Code(s): K29.70 - GASTRITIS, UNSPECIFIED, WITHOUT BLEEDING (7) Seizure Code(s): R56.9 - UNSPECIFIED CONVULSIONS
[2019-07-15] MEDS: amLODIPine BESYLATE 5 MG TABLET (FP) PO SCH (09:27)
[2019-07-15] MEDS: predniSONE 20 MG TABLET (UD) PO SCH ×2 (09:27→22:02)
[2019-07-15] MEDS: levETIRAcetam 500 MG TABLET (FP) PO SCH ×2 (09:27→22:02)
[2019-07-15] MEDS ORDERED: PT OWN MED DRAWER 7, Y5N ONE ×2 (09:46→09:55)
[2019-07-15] MEDS: TAMSULOSIN HCL 0.4 MG CAP PO SCH (09:48)
[2019-07-15] MEDS ORDERED: NIACIN 750 MG PO SCH (10:00)
[2019-07-15] MEDS: MYCOPHENOLATE MOFETIL 500 MG TABLET PO SCH (10:58)
--- NOTE | 2019-07-15 12:19 | CON.CARD ---
Cardiology Consult (text) - Consultation Consultation Note: CC: shortness of breath 79yo with hx of chronic systolic HF, afib (not on AC, hx GI bleed), cad s/p remote pci (2010 per pt), htn, hld, ckd, CVA ( residual BL motor weakness) , seizure p/w dyspnea, weakness, edema. Hasn't seen a manager medicare marketing recently. Has been feeling short of breath for the last 1-2 weeks also had face swelling, lower ext swelling. Feels better with IV lasix. 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 fam: no premature cad or scd ros: per hpi Ambulatory Orders Amlodipine Besylate [Norvasc -] 5 mg PO DAILY 07/15/19 Furosemide [Lasix] 20 mg PO BID 07/15/19 Levothyroxine [Synthroid -] 25 mcg PO DAILY 07/15/19 Mycophenolate Mofetil [Cellcept -] 500 mg PO DAILY 07/15/19 Niacin [Niaspan] 750 mg PO DAILY 07/15/19 Tamsulosin HCl [Flomax] 0.4 mg PO DAILY 07/15/19 levETIRAcetam [Keppra -] 500 mg PO BID 07/15/19 predniSONE [Deltasone -] 40 mg PO BID 07/15/19 Current Medications Amlodipine Besylate (Norvasc -) 5 mg PO DAILY [facility] Last Admin: 07/15/19 09:27 Dose: 5 mg Furosemide (Lasix Injection -) 40 mg IVPUSH BID@0600,1400 [facility] Last Admin: 07/15/19 06:29 Dose: 40 mg Levetiracetam (Keppra -) 500 mg PO BID [facility] Last Admin: 07/15/19 09:27 Dose: 500 mg Levothyroxine Sodium (Synthroid -) 25 mcg PO DAILY@0700 [facility] Last Admin: 07/15/19 06:29 Dose: 25 mcg Mycophenolate Mofetil (Cellcept -) 500 mg PO DAILY [facility] Last Admin: 07/15/19 10:58 Dose: 500 mg Non-Formulary Medication (Niacin [Niaspan]) 750 mg PO DAILY [facility] Prednisone (Deltasone -) 40 mg PO BID [facility] Last Admin: 07/15/19 09:27 Dose: 40 mg Tamsulosin HCl (Flomax -) 0.4 mg PO DAILY@0830 [facility] Last Admin: 07/15/19 09:48 Dose: 0.4 mg Vital Signs Period Temp Pulse Resp BP Sys/Hair Pulse Ox Last 24 Hr 97.6 F-98.2 F 72-96 16-30 104-147/67-106 92-100 nad, calm +JVD bibasilar rales, nl effort rrr nl s1, s2 2/6 sys murmur at apex. + bs soft nt nd, no hsm ext with 2+ edema diminished dp/pt alert and oriented no jaundice, diaphoresis Laboratory Last Values WBC 9.8 K/mm3 (4.0-10.0) 07/14/19 21:00 Corrected WBC (auto) Cancelled 07/14/19 19:10 RBC 3.95 M/mm3 (4.00-5.60) L 07/14/19 21:00 Hgb 11.0 GM/dL (11.7-16.9) L 07/14/19 21:00 Hct 35.9 % (35.4-49) 07/14/19 21:00 MCV 90.7 fl (80-96) 07/14/19 21:00 MCH 27.9 pg (25.7-33.7) 07/14/19 21:00 MCHC 30.7 g/dl (32.0-35.9) L 07/14/19 21:00 RDW 15.4 % (11.9-15.9) 07/14/19 21:00 Plt Count 149 K/MM3 (134-434) 07/14/19 21:00 MPV 7.8 fl (7.5-11.1) 07/14/19 21:00 Absolute Neuts (auto) 8.0 K/mm3 (1.5-8.0) 07/14/19 21:00 Neutrophils % 81.8 % (42.8-82.8) D 07/14/19 21:00 Lymphocytes % 9.6 % (8-40) D 07/14/19 21:00 Monocytes % 7.6 % (3.8-10.2) 07/14/19 21:00 Eosinophils % 0.4 % (0-4.5) D 07/14/19 21:00 Basophils % 0.6 % (0-2.0) 07/14/19 21:00 Nucleated RBC % 0 % (0-0) 07/14/19 21:00 Platelet Estimate Cancelled 07/14/19 19:10 Platelet Comment Cancelled 07/14/19 19:10 PT with INR 17.50 SEC (9.7-13.0) H 07/14/19 22:46 INR 1.48 (0.83-1.09) H 07/14/19 22:46 PTT (Actin FS) 39.8 SECONDS (25.2-36.5) H 07/14/19 22:46 Anticoagulation Therapy No Result Required. 07/15/19 00:00 Puncture Site Right radial 07/15/19 00:00 ABG pH 7.31 (7.35-7.45) L 07/15/19 00:00 ABG pCO2 at Pt Temp 62.8 mmHg (35-45) H 07/15/19 00:00 ABG pO2 at Pt Temp 117 mmHg (80-100) H 07/15/19 00:00 ABG HCO3 30.4 mmol/L (22-27) H 07/15/19 00:00 ABG O2 Sat (Measured) 98.7 % (95-98) H 07/15/19 00:00 ABG O2 Content 14.2 % vol 07/15/19 00:00 ABG Base Excess 3.5 meq/l (-2-2) H 07/15/19 00:00 Ishan Test Positive 07/15/19 00:00 O2 Delivery Device Bipap 07/15/19 00:00 Oxygen Flow Rate 40% 07/15/19 00:00 Vent Mode S/t 07/15/19 00:00 Vent Rate 16 07/15/19 00:00 Mechanical Rate Bipap 07/15/19 00:00 Pressure Support Vent 6 07/15/19 00:00 Sodium 140 mmol/L (136-145) 07/14/19 19:10 Potassium 4.7 mmol/L (3.5-5.1) 07/14/19 19:10 Chloride 106 mmol/L (98-107) 07/14/19 19:10 Carbon Dioxide 27 mmol/L (21-32) 07/14/19 19:10 Anion Gap 7 MMOL/L (8-16) L 07/14/19 19:10 BUN 30.1 mg/dL (7-18) H 07/14/19 19:10 Creatinine 2.4 mg/dL (0.55-1.3) H 07/14/19 19:10 Est GFR (CKD-EPI)AfAm 28.26 07/14/19 19:10 Est GFR (CKD-EPI)NonAf 24.38 07/14/19 19:10 Random Glucose 187 mg/dL (74-106) H 07/14/19 19:10 Calcium 8.1 mg/dL (8.5-10.1) L 07/14/19 19:10 Magnesium 1.7 mg/dL (1.8-2.4) L 07/14/19 19:10 Total Bilirubin 0.7 mg/dL (0.2-1) 07/14/19 19:10 AST 31 U/L (15-37) 07/14/19 19:10 ALT 14 U/L (13-61) 07/14/19 19:10 Alkaline Phosphatase 71 U/L (45-117) 07/14/19 19:10 Creatine Kinase 112 U/L (26-308) 07/14/19 19:10 CK-MB (CK-2) 1.7 ng/mL (0.5-3.6) 07/14/19 19:10 Troponin I 0.14 ng/ml (0.00-0.05) H 07/15/19 00:53 B-Natriuretic Peptide 55929.7 pg/ml (5-450) H 07/14/19 19:10 Total Protein 6.2 g/dl (6.4-8.2) L 07/14/19 19:10 Albumin 2.6 g/dl (3.4-5.0) L 07/14/19 19:10 Urine Color Yellow 07/14/19 22:25 Urine Appearance Clear 07/14/19 22:25 Urine pH 5.0 (5.0-8.0) 07/14/19 22:25 Ur Specific [place] 1.014 (1.010-1.035) 07/14/19 22:25 Urine Protein 3+ (NEGATIVE) H 07/14/19 22:25 Urine Glucose (UA) Negative (NEGATIVE) 07/14/19 22:25 Urine Ketones Negative (NEGATIVE) 07/14/19 22: Urine Blood 1+ (NEGATIVE) H 07/14/19 22:25 Urine Nitrite Negative (NEGATIVE) 07/14/19 22:25 Urine Bilirubin Negative (NEGATIVE) 07/14/19 22:25 Urine Urobilinogen 1.0 mg/dL (0.2-1.0) 07/14/19 22:25 Ur Leukocyte Esterase Negative (NEGATIVE) 07/14/19 22:25 Urine WBC (Auto) 1 /hpf (0-5) 07/14/19 22:25 Urine RBC (Auto) 5 /hpf (0-4) 07/14/19 22: Urine Casts (Auto) 13 /lpf (0-8) 07/14/19 22:25 U Pathogenic Cast Auto none seen /lpf (NEGATIVE) 07/14/19 22: U Epithel Cells (Auto) 1.8 /HPF (0-5/HPF) 07/14/19 22:25 Urine Crystals (Auto) Few /hpf 07/14/19 22:25 Urine Bacteria (Auto) 0.2 /hpf (NEGATIVE) 07/14/19 22:25 Blood Type B POSITIVE 07/14/19 19:10 Antibody Screen Negative 07/14/19 19:10 07/20/15 Cardiac cath - Right-Sided Pressures are Increased, Mild Pulmonary Hypertension (pa mean 30), PVRI is mildly increased - 5, PCW is increased- 18, LVEDP is mildly elevated-18, Decreased Cardiac Output ~ 5.6 liter/min Coronary Anatomy : I Vessel CAD (RCA) LV Function/Aorta : Moderate systolic LV Dysfunction ~EF 35% Valves : 1. No Aortic stenosis 2. No Mitral stenosis 07/21/15 TTE - normal left ventricular size overall moderate decreased left ventricular systolic function (diffuse); ejection fraction = 43 % moderate concentric left ventricular hypertrophy abnormal left ventricular diastolic filling pattern [may be due to age or LVH] probable mild right ventricular dilatation probable mild decreased right ventricular function mild to moderate mitral regurgitation mild tricuspid regurgitation mild pulmonary hypertension ascending aorta dilatation technically difficult study Definity precision microbubble contrast used to enhance endocardial border definition mibi 06/2015: lvef 33%, no defects but +tid c/w high risk study mibi 09/2018 diaphragmatic attenuation, nl EF, no ischemia EKG afib, rate controlled, no ischemic changes ASSESSMENT/PLAN 79yo with chronic diastolic HF, afib, cad s/p remote pci (2010 per pt), htn, hld , ckd, CVA ( residual BL motor weakness), seizure p/w dyspnea, edema acute on chronic diastolic HF - history of systolic dysfunciton, with nl LV function on mibi 09/2018 - repeat echo ordered - continue lasix 40 mg IV BID - monitor Cr, lytes, daily weights elevated trop - indeterminate range, flat trend - EKG no ischemic changes, less likely ACS - likely demand in setting of HF exac, check echo as above Afib - not on AC due to history of anemia, GI bleed - rate controlled off av sravanthi blockade - hx of slow ventricular rate on coreg - monitoring on tele CAD hx prior PCI - S/p Cardiac cath 07/20/15 with Non Obstructive CAD, mibi no ischemia 09/2018 - not on antiplatelets given history of anemia - not on statin at home - prior notes suggest was on crestor 10 mg daily, if no contraindication would resume htn - bp controlled on current regimen, con't CKD - renal consulted anemia - manage per primary
--- NOTE | 2019-07-15 12:25 | ECHO ---
Name: BONNIE SKY Exam:Adult Echocardiogram Study Date: 07/15/2019 07:23 AM Age: 79 yrs Reason For Study: CHF Height: 68 in Weight: 250 lb BSA: 2.2 m2 MMode/2D Measurements & Calculations IVSd: 1.5 cm Ao root diam: 3.0 cm LVIDd: 4.9 cm LA dimension: 4.4 cm LVIDs: 3.5 cm LVPWd: 1.7 cm EDV(Teich): 115.0 ml LVOT diam: 2.0 cm ESV(Teich): 50.5 ml LAV (MOD-bp): 91.2 ml Doppler Measurements & Calculations MV E max alessio: 96.5 cm/sec Ao V2 max: 134.4 cm/sec MV dec time: 0.23 sec Ao max P.2 mmHg AI P1/2t: 659.3 msec WILMAR(V,D): 2.1 cm2 AI max alessio: 287.1 cm/sec LV V1 max P.2 mmHg AI max P.0 mmHg LV V1 max: 89.2 cm/sec AI dec slope: 127.5 cm/sec2 MR max alessio: 267.0 cm/sec TR max alessio: 334.8 cm/sec MR max P.8 mmHg TR max P.4 mmHg PA V2 max: 97.7 cm/sec Med Peak E' Alessio: 4.8 cm/sec PA max P.8 mmHg Med E/e': 20.2 Lat Peak E' Alessio: 5.4 cm/sec Lat E/e': 17.7 PI Vmax: 116.1 cm/sec Procedure A two-dimensional transthoracic echocardiogram with color flow and Doppler was performed. The patient was in atrial fibrillation with controlled ventricular rate during the exam. Left Ventricle There is moderate concentric left ventricular hypertrophy. Left ventricular systolic function is low normal. Ejection Fraction = 50-55%. The transmitral spectral Doppler flow pattern is suggestive of restrictiv e physiology. Right Ventricle The right ventricle is mildly dilated. The right ventricle is not well visualized. The right ventricu lar systolic function is moderately reduced. Atria The left atrium is moderately dilated. The right atrium is severely dilated. Mitral Valve There is mild mitral annular calcification. There is mild mitral valve thickening. There is mild mitr al regurgitation. Tricuspid Valve There is mild tricuspid valve thickening. There is moderate tricuspid regurgitation. Right ventricula r systolic pressure is elevated at >60mmHg. There is severe pulmonary hypertension. Aortic Valve Fibrocalcific aortic valve without significant stenosis. The aortic valve is trileaflet. Mild aortic regurgitation. Pulmonic Valve The pulmonic valve is not well seen, but is grossly normal. Mild pulmonic valvular regurgitation. Great Vessels The aortic root is normal size. Severely dilated inferior vena cava. Pericardium/Pleura Trivial pericardial effusion not hemodynamically significant. Interpretation Summary There is moderate concentric left ventricular hypertrophy. Left ventricular systolic function is low normal. The transmitral spectral Doppler flow pattern is suggestive of restrictive physiology. The right ventricle is mildly dilated. The right ventricular systolic function is moderately reduced. The left atrium is moderately dilated. The right atrium is severely dilated. There is mild mitral annular calcification. There is mild mitral valve thickening. There is mild mitral regurgitation. There is moderate tricuspid regurgitation. Right ventricular systolic pressure is elevated at >60mmHg. There is severe pulmonary hypertension. Fibrocalcific aortic valve without significant stenosis. Mild aortic regurgitation. Mild pulmonic valvular regurgitation. Severely dilated inferior vena cava Trivial pericardial effusion not hemodynamically significant MD Mir Everett 07/15/2019 12:25 PM
[2019-07-15 13:13] LABS: HEMATOCRIT 36.4 % (35.4-49); HEMOGLOBIN 11.2 GM/dL (11.7-16.9); MCH 28.3 pg (25.7-33.7); MCHC 30.8 g/dl (32.0-35.9); MEAN CELL VOLUME 92.1 fl (80-96); MEAN PLT VOLUME 7.9 fl (7.5-11.1); PLATELET COUNT 134 K/MM3 (134-434); RBC 3.95 M/mm3 (4.00-5.60); RDW 15.5 % (11.9-15.9); WHITE BLOOD COUNT 8.2 K/mm3 (4.0-10.0)
[2019-07-15 13:24] LABS: IRON SERUM 15 ug/dL (50-175); TOTAL IRON BINDING CAPACITY 286 ug/dL (250-450)
[2019-07-15 13:27] LABS: BLOOD UREA NITROGEN 30.6 mg/dL (7-18); CALCIUM 7.9 mg/dL (8.5-10.1); CREATININE 2.3 mg/dL (0.55-1.3); MAGNESIUM 1.9 mg/dL (1.8-2.4); POTASSIUM 3.9 mmol/L (3.5-5.1)
--- NOTE | 2019-07-15 17:57 | CONSULT ---
Consult Consult Specialty:: Nephrology Reason for Consultation:: CKD - History of Present Illness Chief Complaint: facial swelling History of Present Illness: Pt is an 79 year old male with pmhx of ckd, chf with ef of 40 percent, colon cancer s/p resection, cad, a-fib, pituitary adenoma and hypothyroidism who presents with facial edema. He also complains of weakness and shortness of breath. He has history of anemia requiring prbc transfusion. He follows with me for CKD however has not come to the office recently. He denies fevers or chills. He was found to have fluid overload. - History Source History Provided By: Patient - Past Medical History [employer]: Yes: CVA, Seizure Cardio/Vascular: Yes: CAD, CHF, HTN, Hyperlipdemia Gastrointestinal: Yes: GI Bleed, Other (Colon cancer) Renal/: Yes: Renal Inusuff (see HPI) Endocrine: Yes: Diabetes Mellitus, Other (pituitary adenoma resection) - Past Surgical History Past Surgical History: Yes: Colectomy (partial given h/o colon cancer), Stent (s /p one vessel PCI) - Alcohol/Substance Use Hx Alcohol Use: No - Smoking History Smoking history: Never smoked Have you smoked in the past 12 months: No Aproximately how many cigarettes per day: 4 If you are a former smoker, when did you quit?: 2009 - Social History 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) History of Recent Travel: No Home Medications - Allergies Allergies/Adverse Reactions: Allergies Allergy/AdvReac Type Severity Reaction Status Date / Time No Known Allergies Allergy Verified 07/14/19 21:45 - Home Medications Home Medications: Ambulatory Orders Amlodipine Besylate [Norvasc -] 5 mg PO DAILY 07/15/19 Furosemide [Lasix] 20 mg PO BID 07/15/19 Levothyroxine [Synthroid -] 25 mcg PO DAILY 07/15/19 Mycophenolate Mofetil [Cellcept -] 500 mg PO DAILY 07/15/19 Niacin [Niaspan] 750 mg PO DAILY 07/15/19 Tamsulosin HCl [Flomax] 0.4 mg PO DAILY 07/15/19 levETIRAcetam [Keppra -] 500 mg PO BID 07/15/19 predniSONE [Deltasone -] 40 mg PO BID 07/15/19 Family Medical History Family History: Denies Review of Systems - Review of Systems Constitutional: reports: Malaise Eyes: reports: No Symptoms HENT: reports: No Symptoms Neck: reports: No Symptoms Gastrointestinal: reports: No Symptoms Genitourinary: reports: Other (puri) Integumentary: reports: No Symptoms Neurological: reports: No Symptoms Endocrine: reports: No Symptoms Psychiatric: reports: No Symptoms Physical Exam Vital Signs: Vital Signs Temperature 97.6 F 07/15/19 14:00 Pulse Rate 81 07/15/19 14:00 Respiratory Rate 20 07/15/19 14:00 Blood Pressure 128/75 07/15/19 14:00 O2 Sat by Pulse Oximetry (%) 96 07/15/19 08:22 Constitutional: Yes: Calm HENT: Yes: Atraumatic Neck: Yes: Supple Cardiovascular: Yes: S1, S2 Respiratory: Yes: On Nasal O2 Gastrointestinal: Yes: Normal Bowel Sounds, Soft Renal/: Yes: Puri Present Musculoskeletal: Yes: WNL Edema: Yes Edema: LLE: 1+, RLE: 1+ Neurological: Yes: Oriented Labs: CBC, BMP 07/15/19 12:38 07/15/19 12:38 Laboratory Tests 01/17/18 01/18/18 02/23/19 06:30 07:25 19:15 Hgb Creatinine 1.8 H 1.6 H 2.0 H 07/14/19 07/14/19 07/15/19 19:10 21:00 12:38 Hgb 11.0 L 11.2 L Creatinine 2.4 H 07/15/19 12:38 Hgb Creatinine 2.3 H Imaging - Results Chest X-ray: Report Reviewed Assessment/Plan Current Medications Generic Name Dose Route Start Last Admin Trade Name Freq PRN Reason Stop Dose Admin Amlodipine Besylate 5 mg 07/15/19 10:00 07/15/19 09:27 Norvasc - PO 5 mg DAILY MICHAEL Administration Furosemide 40 mg 07/15/19 06:00 07/15/19 13:53 Lasix Injection - IVPUSH 40 mg BID@0600,1400 MICHAEL Administration Levetiracetam 500 mg 07/15/19 10:00 07/15/19 09:27 Keppra - PO 500 mg BID MICHAEL Administration Levothyroxine Sodium 25 mcg 07/15/19 07:00 07/15/19 06:29 Synthroid - PO 25 mcg DAILY@0700 [facility] Administration Mycophenolate Mofetil 500 mg 07/15/19 10:00 07/15/19 10:58 Cellcept - PO 500 mg DAILY [facility] Administration Non-Formulary Medication 750 mg 07/15/19 10:00 Niacin [Niaspan] PO DAILY [facility] Prednisone 40 mg 07/15/19 10:00 07/15/19 09:27 Deltasone - PO 40 mg BID [facility] Administration Tamsulosin HCl 0.4 mg 07/15/19 08:30 07/15/19 09:48 Flomax - PO 0.4 mg DAILY@0830 [facility] Administration Impression 1. CKD 2. CHF 3. BPH 4. a. fib 5. CAD 6. epilepsy 7. proteinuria 8. anemia 9. acute resp failure 10. hypernatremia Plan - cont lasix - monitor renal function - avoid nsaids - monitor hg - monitor urine output Dr Tipton
[2019-07-16] MEDS: LEVOTHYROXINE NA 25 MCG TABLET (FP) PO SCH (06:57)
[2019-07-16] MEDS: FUROSEMIDE 40 MG/4 ML INJECTABLE VIAL IVPUSH SCH ×2 (06:57→14:48)
[2019-07-16 07:04] LABS: HEMATOCRIT 36.7 % (35.4-49); LYMPH % 4.1 % (8-40); MCH 28.1 pg (25.7-33.7); MCHC 30.1 g/dl (32.0-35.9); MEAN CELL VOLUME 93.3 fl (80-96); MEAN PLT VOLUME 7.5 fl (7.5-11.1); MONO % 1.4 % (3.8-10.2); NEUT % 94.5 % (42.8-82.8); PLATELET COUNT 138 K/MM3 (134-434); RBC 3.93 M/mm3 (4.00-5.60); RDW 15.8 % (11.9-15.9); WHITE BLOOD COUNT 6.9 K/mm3 (4.0-10.0)
[2019-07-16 07:32] LABS: ALBUMIN 2.5 g/dl (3.4-5.0); BILIRUBIN,TOTAL 0.8 mg/dL (0.2-1); BLOOD UREA NITROGEN 34.9 mg/dL (7-18); CALCIUM 8.2 mg/dL (8.5-10.1); CREATININE 2.4 mg/dL (0.55-1.3); POTASSIUM 4.8 mmol/L (3.5-5.1); TOT PROT 6.4 g/dl (6.4-8.2)
[2019-07-16] MEDS ORDERED: PIPERACILLIN/TAZOB 3.375 GM 3.375 GM in DEXTROSE 5%-WATER - 50 ML IVPB ONE (08:03)
[2019-07-16] MEDS ORDERED: D5-1/2NS+20 MEQ KCL - 20 MEQ/1,000 ML INFUS.BAG IV SCH (08:15)
[2019-07-16] MEDS ORDERED: PIPERACILLIN/TAZOBACTAM 3.375 GM VIAL IVPB ONE (08:30)
[2019-07-16] MEDS ORDERED: DEXTROSE 5%-WATER - 50 ML IVPB ONE (08:30)
--- NOTE | 2019-07-16 08:46 | PN ---
Progress Note, Physician - Current Medication List Current Medications: Active Medications Amlodipine Besylate (Norvasc -) 5 mg PO DAILY [facility] Last Admin: 07/15/19 09:27 Dose: 5 mg Furosemide (Lasix Injection -) 40 mg IVPUSH BID@0600,1400 [facility] Last Admin: 07/16/19 06:57 Dose: 40 mg Potassium Chloride/Dextrose/Sod Cl (D5-1/2ns+20 Meq Kcl -) 20 meq in 1,000 mls @ 100 mls/hr IV ASDIR [facility] Last Admin: 07/16/19 08:33 Dose: 100 mls/hr Levetiracetam (Keppra -) 500 mg PO BID [facility] Last Admin: 07/15/19 22:02 Dose: 500 mg Levothyroxine Sodium (Synthroid -) 25 mcg PO DAILY@0700 [facility] Last Admin: 07/16/19 06:57 Dose: 25 mcg Mycophenolate Mofetil (Cellcept -) 500 mg PO DAILY [facility] Last Admin: 07/15/19 10:58 Dose: 500 mg Non-Formulary Medication (Niacin [Niaspan]) 750 mg PO DAILY [facility] Prednisone (Deltasone -) 40 mg PO BID [facility] Last Admin: 07/15/19 22:02 Dose: 40 mg Tamsulosin HCl (Flomax -) 0.4 mg PO DAILY@0830 [facility] Last Admin: 07/15/19 09:48 Dose: 0.4 mg - Objective Vital Signs: Vital Signs Temperature 96.1 F L 07/16/19 06:00 Pulse Rate 84 07/16/19 06:00 Respiratory Rate 24 H 07/16/19 06:00 Blood Pressure 121/66 07/16/19 06:00 O2 Sat by Pulse Oximetry (%) 95 07/15/19 20:35 Constitutional: Yes: Other (lethargic) Cardiovascular: Yes: S1, S2 Respiratory: Yes: Diminished, On Nasal O2 Gastrointestinal: Yes: Normal Bowel Sounds, Soft Neurological: Yes: Lethargy Labs: CBC, BMP 07/16/19 06:20 INR, PTT INR 1.48 (0.83-1.09) H 07/14/19 22:46 Problem List - Problems (1) Hypothermia Assessment/Plan: r/o sepsis cultures,cxr,lactic acid iv abx and ivf id consult icu transfer Code(s): T68.XXXA - HYPOTHERMIA, INITIAL ENCOUNTER (2) Lethargy Assessment/Plan: as above ct head Code(s): R53.83 - OTHER FATIGUE (3) CHF exacerbation Assessment/Plan: Continue with IV lasix 40mg twice daily close monitoring of renal studies, electrolytes and strict I&O's Echocardiogram Cardiology- Elevated Troponin/ Hx CAD with Stents He denies CP Continue to trend troponins Code(s): I50.9 - HEART FAILURE, UNSPECIFIED Qualifiers: Heart failure type: unspecified Qualified Code(s): I50.9 - Heart failure, unspecified (4) Anemia Assessment/Plan: Check stool guiac Check iron studies Continue to monitor closely CBC Code(s): D64.9 - ANEMIA, UNSPECIFIED (5) Afib Assessment/Plan: Rate controlled(no rate control meds) not on anticoagulation secondary to GI Bleed in past Code(s): I48.91 - UNSPECIFIED ATRIAL FIBRILLATION Qualifiers: Atrial fibrillation type: paroxysmal Qualified Code(s): I48.0 - Paroxysmal atrial fibrillation (6) CKD (chronic kidney disease) Assessment/Plan: Monitor Creatinine Renal Consulted Code(s): N18.9 - CHRONIC KIDNEY DISEASE, UNSPECIFIED (7) Diabetes mellitus Code(s): E11.9 - TYPE 2 DIABETES MELLITUS WITHOUT COMPLICATIONS (8) Gastritis Code(s): K29.70 - GASTRITIS, UNSPECIFIED, WITHOUT BLEEDING (9) Seizure Code(s): R56.9 - UNSPECIFIED CONVULSIONS
[2019-07-16 09:10] LABS: ARTERIAL BLD GAS O2 SATURATION 96.1 % (95-98); ARTERIAL BLOOD GAS BASE EXCESS 1.3 meq/l (-2-2); ARTERIAL BLOOD GAS PO2 93.8 mmHg (80-100)
[2019-07-16 09:11] LABS: ALLENS TEST POSITIVE
[2019-07-16 09:14] LABS: ARTERIAL BLOOD GAS PCO2 96.9 mmHg (35-45); ARTERIAL BLOOD GAS pH 7.15 (7.35-7.45)
--- NOTE | 2019-07-16 11:00 | EKG ---
Test Reason : Blood Pressure : / mmHG Vent. Rate : 073 BPM Atrial Rate : 077 BPM P-R Int : 000 ms QRS Dur : 100 ms QT Int : 370 ms P-R-T Axes : 000 109 106 degrees QTc Int : 407 ms ATRIAL FIBRILLATION RIGHTWARD AXIS SEPTAL INFARCT (CITED ON OR BEFORE 05-NOV-2017) ABNORMAL ECG WHEN COMPARED WITH ECG OF 14-JUL-2019 18:57, NO SIGNIFICANT CHANGE WAS FOUND Confirmed by Braulio Be MD ([id number]) on 07/16/2019 11:00:13 AM Referred By: Jessee HANCOCK Confirmed By:Braulio Be MD
[2019-07-16 11:03] LABS: ANISOCYTOSIS 2+; MACROCYTOSIS 0; OVALOCYTE 1+; PLATELET ESTIMATE DECREASED
[2019-07-16] MEDS: predniSONE 20 MG TABLET (UD) PO SCH (11:12)
[2019-07-16] MEDS: levETIRAcetam 500 MG TABLET (FP) PO SCH ×2 (11:13→21:52)
[2019-07-16] MEDS: TAMSULOSIN HCL 0.4 MG CAP PO SCH (11:13)
[2019-07-16] MEDS: MYCOPHENOLATE MOFETIL 500 MG TABLET PO SCH (11:13)
[2019-07-16] MEDS: amLODIPine BESYLATE 5 MG TABLET (FP) PO SCH (11:13)
--- NOTE | 2019-07-16 11:45 | PN ---
Progress Note (short form) - Note Progress Note: s: this AM concern for altered mental status, hypothermia, hypercapneic resp failure. CT head negative, planned transfer to ICU. currently pt awake, alert. no chest pain, palps, dyspnea. no cigs Current Medications Amlodipine Besylate (Norvasc -) 5 mg PO DAILY [facility] Last Admin: 07/16/19 11:13 Dose: 5 mg Chlorhexidine Gluconate (Hibiclens For Decolonization -) 1 applic TP HS [facility] Furosemide (Lasix Injection -) 40 mg IVPUSH BID@0600,1400 [facility] Last Admin: 07/16/19 06:57 Dose: 40 mg Potassium Chloride/Dextrose/Sod Cl (D5-1/2ns+20 Meq Kcl -) 20 meq in 1,000 mls @ 100 mls/hr IV ASDIR [facility] Last Admin: 07/16/19 08:33 Dose: 100 mls/hr Levetiracetam (Keppra -) 500 mg PO BID [facility] Last Admin: 07/16/19 11:13 Dose: 500 mg Levothyroxine Sodium (Synthroid -) 25 mcg PO DAILY@0700 [facility] Last Admin: 07/16/19 06:57 Dose: 25 mcg Mupirocin (Bactroban Ointment (For Decolonization) -) 1 applic NS BID [facility] Stop: 07/21/19 09:59 Mycophenolate Mofetil (Cellcept -) 500 mg PO DAILY [facility] Last Admin: 07/16/19 11:13 Dose: 500 mg Non-Formulary Medication (Niacin [Niaspan]) 750 mg PO DAILY [facility] Prednisone (Deltasone -) 40 mg PO BID [facility] Last Admin: 07/16/19 11:12 Dose: 40 mg Tamsulosin HCl (Flomax -) 0.4 mg PO DAILY@0830 [facility] Last Admin: 07/16/19 11:13 Dose: 0.4 mg Vital Signs Period Temp Pulse Resp BP Sys/Hair Pulse Ox Last 24 Hr 95 F-97.7 F 78-96 18-24 119-148/61-76 95 nad, calm +JVD bibasilar rales, nl effort rrr nl s1, s2 2/6 sys murmur at apex. + bs soft nt nd, no hsm ext with 2+ edema diminished dp/pt alert and oriented no jaundice, diaphoresis 2/2/16 Cardiac cath - Right-Sided Pressures are Increased, Mild Pulmonary Hypertension (pa mean 30), PVRI is mildly increased - 5, PCW is increased- 18, LVEDP is mildly elevated-18, Decreased Cardiac Output ~ 5.6 liter/min Coronary Anatomy : I Vessel CAD (RCA) LV Function/Aorta : Moderate systolic LV Dysfunction ~EF 35% Valves : 1. No Aortic stenosis 2. No Mitral stenosis 07/21/15 TTE - normal left ventricular size overall moderate decreased left ventricular systolic function (diffuse); ejection fraction = 43 % moderate concentric left ventricular hypertrophy abnormal left ventricular diastolic filling pattern [may be due to age or LVH] probable mild right ventricular dilatation probable mild decreased right ventricular function mild to moderate mitral regurgitation mild tricuspid regurgitation mild pulmonary hypertension ascending aorta dilatation technically difficult study Definity precision microbubble contrast used to enhance endocardial border definition mibi 06/2015: lvef 33%, no defects but +tid c/w high risk study mibi 09/2018 diaphragmatic attenuation, nl EF, no ischemia EKG afib, rate controlled, no ischemic changes echo 06/2019 mod conc LVH, low nl LV function, restrictive physiology, mildly dilated RV, mod reduced RV systolic function, LA mod dilated, RA sev dilated, mild MAC, mild MR, RVSP >60 mmHg, severe pulm HTN, mild AR tele: afib ASSESSMENT/PLAN 79yo with chronic diastolic HF, afib, cad s/p remote pci (2010 per pt), htn, hld , ckd, CVA ( residual BL motor weakness), seizure p/w dyspnea, edema hypothermia, alt mental status - manage abx per ID - CT head neg acute on chronic combined systolic and diastolic HF - history of systolic dysfunction with nl LV function on mibi 09/2018 - echo shows low nl LV function and restrictive physiology - continue lasix 40 mg IV BID - monitor Cr, lytes, daily weights elevated trop - indeterminate range, flat trend - EKG no ischemic changes, less likely ACS - likely demand in setting of HF exac Afib - not on AC due to history of anemia, GI bleed - rate controlled off av sravanthi blockade - hx of slow ventricular rate on coreg - monitoring on tele CAD hx prior PCI - S/p Cardiac cath 07/20/15 with Non Obstructive CAD, mibi no ischemia 09/2018 - not on antiplatelets given history of anemia - not on statin at home - prior notes suggest was on crestor 10 mg daily, if no contraindication would resume htn - bp controlled on current regimen, con't CKD - renal consulted anemia - manage per primary
--- NOTE | 2019-07-16 12:15 | PN ---
Progress Note, Physician History of Present Illness: Pt seen and examined at bedside. He is awake and responsive. He denies worsening of shortness of breath. - Current Medication List Current Medications: Active Medications Amlodipine Besylate (Norvasc -) 5 mg PO DAILY [facility] Last Admin: 07/16/19 11:13 Dose: 5 mg Chlorhexidine Gluconate (Hibiclens For Decolonization -) 1 applic TP HS [facility] Furosemide (Lasix Injection -) 40 mg IVPUSH BID@0600,1400 [facility] Last Admin: 07/16/19 06:57 Dose: 40 mg Levetiracetam (Keppra -) 500 mg PO BID [facility] Last Admin: 07/16/19 11:13 Dose: 500 mg Levothyroxine Sodium (Synthroid -) 25 mcg PO DAILY@0700 [facility] Last Admin: 07/16/19 06:57 Dose: 25 mcg Mupirocin (Bactroban Ointment (For Decolonization) -) 1 applic NS BID [facility] Stop: 07/21/19 21:59 Mycophenolate Mofetil (Cellcept -) 500 mg PO DAILY [facility] Last Admin: 07/16/19 11:13 Dose: 500 mg Non-Formulary Medication (Niacin [Niaspan]) 750 mg PO DAILY [facility] Prednisone (Deltasone -) 40 mg PO BID [facility] Last Admin: 07/16/19 11:12 Dose: 40 mg Tamsulosin HCl (Flomax -) 0.4 mg PO DAILY@0830 [facility] Last Admin: 07/16/19 11:13 Dose: 0.4 mg - Objective Vital Signs: Vital Signs Temperature 95 F L 07/16/19 11:18 Pulse Rate 83 07/16/19 11:18 Respiratory Rate 22 H 07/16/19 11:18 Blood Pressure 148/61 07/16/19 11:18 O2 Sat by Pulse Oximetry (%) 95 07/15/19 20:35 Constitutional: Yes: Calm Eyes: Yes: Conjunctiva Clear HENT: Yes: Atraumatic Neck: Yes: Supple Cardiovascular: Yes: S1, S2 Respiratory: Yes: CTA Bilaterally Gastrointestinal: Yes: Soft Genitourinary: Yes: [place] Present Musculoskeletal: Yes: Muscle Weakness Edema: Yes Edema: LLE: 2+, RLE: 2+ Neurological: Yes: Oriented Psychiatric: Yes: Oriented Labs: CBC, BMP 07/16/19 06:20 07/16/19 06:20 INR, PTT INR 1.48 (0.83-1.09) H 07/14/19 22:46 Assessment/Plan Current Medications Generic Name Dose Route Start Last Admin Trade Name Kelly PRN Reason Stop Dose Admin Amlodipine Besylate 5 mg 07/15/19 10:00 07/16/19 11:13 Norvasc - PO 5 mg DAILY MICHAEL Administration Chlorhexidine Gluconate 1 applic 07/16/19 22:00 Hibiclens For Decolonization - TP HS MICHAEL Furosemide 40 mg 07/15/19 06:00 07/16/19 06:57 Lasix Injection - IVPUSH 40 mg BID@0600,1400 MICHAEL Administration Levetiracetam 500 mg 07/15/19 10:00 07/16/19 11:13 Keppra - PO 500 mg BID MICHAEL Administration Levothyroxine Sodium 25 mcg 07/15/19 07:00 07/16/19 06:57 Synthroid - PO 25 mcg DAILY@0700 MICHAEL Administration Mupirocin 1 applic 07/16/19 22:00 Bactroban Ointment (For Decolonization) - NS 07/21/19 21:59 BID MICHAEL Mycophenolate Mofetil 500 mg 07/15/19 10:00 07/16/19 11:13 Cellcept - PO 500 mg DAILY MICHAEL Administration Non-Formulary Medication 750 mg 07/15/19 10:00 Niacin [Niaspan] PO DAILY MICHAEL Prednisone 40 mg 07/15/19 10:00 07/16/19 11:12 Deltasone - PO 40 mg BID MICHAEL Administration Tamsulosin HCl 0.4 mg 07/15/19 08:30 07/16/19 11:13 Flomax - PO 0.4 mg DAILY@0830 MICHAEL Administration Impression 1. CKD 2. CHF 3. BPH 4. a. fib 5. CAD 6. epilepsy 7. proteinuria 8. anemia 9. acute resp failure 10. hypernatremia Plan - restart lasix - d/c fluids - avoid nsaids - monitor hg - monitor urine output - mental status is improved Dr Tipton
--- NOTE | 2019-07-16 12:23 | PN ---
Progress Note (short form) - Note Progress Note: ID CONSULT DICTATED IMP/RECCD 79 yo man admitted from home with sob and edema, elevated bnp- 07/14 treated for acute on chronic CHF overnight became hypothermic and lethargic repeat abg with hypercapneic resp failure transferred to ICU-now awake and responsive on bipap Hypercapneic respiratory failure acute on chronic CHF suspect copd-former smoker cannot r/o pneumonia- ?aspiration with lethargy and hypothermia overnight ckd cultures sent add urinary antigens switch to unasyn for possible aspiration adjust for ckd Problem List - Problems (1) Hypercapnic respiratory failure Code(s): J96.92 - RESPIRATORY FAILURE, UNSPECIFIED WITH HYPERCAPNIA (2) CHF exacerbation Code(s): I50.9 - HEART FAILURE, UNSPECIFIED Qualifiers: Heart failure type: unspecified Qualified Code(s): I50.9 - Heart failure, unspecified (3) Pneumonia Code(s): J18.9 - PNEUMONIA, UNSPECIFIED ORGANISM (4) CKD (chronic kidney disease) Code(s): N18.9 - CHRONIC KIDNEY DISEASE, UNSPECIFIED
[2019-07-16] MEDS ORDERED: AMPICILLIN NA/SULBACTAM NA 3 GM in DEXTROSE 5%-WATER 100 ML IVPB SCH (13:15)
[2019-07-16] MEDS ORDERED: PT OWN MED DRAWER 7, Y5N ONE ×2 (13:58→20:51)
--- NOTE | 2019-07-16 14:52 | CONS ---
INFECTIOUS DISEASE CONSULTATION DATE OF CONSULTATION: DATE OF DICTATION: 07/16/2019 HISTORY OF PRESENT ILLNESS: This is an 79-year-old man who was admitted from home. He has an extensive past medical history, including CHF and CKD. He presented to the ER, late July 14/early July 15, with complaints of progressive shortness of breath, swelling, and generalized weakness. He denied any fevers, chills, chest pain, headache. He was noted to have an elevated BNP of 21,000 in the ER, a chest x-ray consistent with bilateral vascular congestion, and was initially placed on BiPAP, but weaned to oxygen therapy. He was admitted for management of his heart failure. Overnight, he was on telemetry. He developed progressive lethargy and hypothermia. Blood gas was repeated and he was found to have a pH of 7.15 with a PCO2 of 96. He was in hypercapnic respiratory failure and transferred to the ICU. A chest x-ray was repeated and he was felt to have worsened film compared to the with congestive changes and a possible early infiltrate. He had a head CT done , as well, for his lethargy, which showed no significant interval change and no acute intracranial pathology. He was transferred to the ICU. He is currently on BiPAP and he is alert and conversant. PAST MEDICAL HISTORY: Notable for history of a pituitary adenoma. He has chronic kidney disease. He has a history of colon cancer, atrial fibrillation, a CVA with right-sided weakness, BPH, hypothyroidism, seizure disorder. He had stents placed in the past. SURGICAL HISTORY: Notable for pituitary adenoma resection and colon resection for his colon cancer. SOCIAL HISTORY: He lives at home and is mainly wheelchair-bound. There is no history of alcohol or substance use. He does admit to a remote history of cigarette use. ALLERGIES: No known drug allergies. MEDICATIONS: As an outpatient include amlodipine, Lasix, levothyroxine, he is on mycophenolate, niacin, tamsulosin, Keppra, and prednisone. REVIEW OF SYSTEMS: Not obtainable at present. PHYSICAL EXAMINATION: Vital Signs: His temperature is 95, his blood pressure 148/61, respiratory rate is 22. He is on BiPAP, at this time. HEENT: He is normocephalic. His eyes are anicteric. I cannot look in his mouth. Neck: Supple. Lungs: Have diminished breath sounds at the bases. Heart: Regular rate and rhythm. Abdomen: Soft. Extremities: Notable for 2+ edema. LABORATORIES: Notable for a white count of 6.9, hemoglobin is 11, platelets are 138. BUN and creatinine are 34 and 2.4. Liver function tests are normal. Troponin is 0.14. Urinalysis has 1 white cell and no leukocytes. Blood cultures are pending. Urine culture is negative. IMAGING: Chest x-ray finding is as stated; worsening congestion with a possible right lower lobe infiltrate. In summary, this is an 79-year-old man, with hypercapnic respiratory failure, acute on chronic CHF, with suspected COPD. He is a former smoker. Cannot rule out pneumonia and CKD. He comes from home. I would suggest we treat him with Unasyn, at this time, for possible aspiration, given the lethargy and hypothermia overnight. Cultures have been sent. Will add urinary antigens and adjust his antibiotics for his CKD. Further recommendations to follow. Over 40 minutes spent in chart review, and evaluation of the patient in the ICU. JEANETTE EAST M.D. [id number] MTDD
--- NOTE | 2019-07-16 14:56 | PN ---
Teaching Attending Note Name of Resident: Mariia Garcia ATTENDING PHYSICIAN STATEMENT I saw and evaluated the patient. I reviewed the resident's note and discussed the case with the resident. I agree with the resident's findings and plan as documented. SUBJECTIVE: Pt seen and examined in the ICU. Admitted for decompensated CHF, started on diuresis. Found to be obtunded with acute respiratory acidosis on ABG, transferred to ICU for closer monitoring. Placed on BiPAP with good minute ventilation, still lethargic but now arousable to stimuli. OBJECTIVE: Vital Signs Period Temp Pulse Resp BP Sys/Hair Pulse Ox Last 24 Hr 95 F-97.7 F 78-96 18-24 113-148/61-78 94-95 Intake & Output 07/13/19 07/14/19 07/15/19 07/16/19 23:59 23:59 23:59 23:59 Intake Total 780 Output Total 500 2100 500 Balance -500 -1320 -500 Weight 113.398 kg 114.759 kg 113.852 kg Gen: lethargic on BiPAP but arousable Heart: RRR Lung: distant breath sounds Abd: soft, nontender Ext: + edema CBC, BMP 07/16/19 06:20 07/16/19 06:20 ABG Results ABG pH 7.15 (7.35-7.45) L* 07/16/19 09:00 ABG pCO2 at Pt Temp 96.9 mmHg (35-45) H* 07/16/19 09:00 ABG pO2 at Pt Temp 93.8 mmHg (80-100) 07/16/19 09:00 ABG HCO3 32.2 mmol/L (22-27) H 07/16/19 09:00 ABG O2 Sat (Measured) 96.1 % (95-98) 07/16/19 09:00 ABG O2 Content 14.2 % vol 07/16/19 09:00 ABG Base Excess 1.3 meq/l (-2-2) 07/16/19 09:00 Active Medications Amlodipine Besylate (Norvasc -) 5 mg PO DAILY MICHAEL Last Admin: 07/16/19 11:13 Dose: 5 mg Chlorhexidine Gluconate (Hibiclens For Decolonization -) 1 applic TP HS MICHAEL Furosemide (Lasix Injection -) 40 mg IVPUSH BID@0600,1400 MICHAEL Last Admin: 07/16/19 14:48 Dose: 40 mg Ampicillin Sodium/Sulbactam (Sodium 3 gm/ Sodium Chloride) 100 mls @ 200 mls/ hr IVPB BID [facility] Levetiracetam (Keppra -) 500 mg PO BID [facility] Last Admin: 07/16/19 11:13 Dose: 500 mg Levothyroxine Sodium (Synthroid -) 25 mcg PO DAILY@0700 [facility] Last Admin: 07/16/19 06:57 Dose: 25 mcg Mupirocin (Bactroban Ointment (For Decolonization) -) 1 applic NS BID [facility] Stop: 07/21/19 21:59 Mycophenolate Mofetil (Cellcept -) 500 mg PO DAILY [facility] Last Admin: 07/16/19 11:13 Dose: 500 mg Non-Formulary Medication (Niacin [Niaspan]) 750 mg PO DAILY [facility] Prednisone (Deltasone -) 40 mg PO BID [facility] Last Admin: 07/16/19 11:12 Dose: 40 mg Tamsulosin HCl (Flomax -) 0.4 mg PO DAILY@0830 [facility] Last Admin: 07/16/19 11:13 Dose: 0.4 mg ASSESSMENT AND PLAN: Acute Hypercapneic Respiratory Failure Altered Mental Status Pneumonia likely Aspiration Acute COPD Exacerbation Acute on Chronic Diastolic Heart Failure Pulmonary HTN Acute on Chronic Renal Failure Atrial Fibrillation +Troponins likely Demand Ischemia CAD HTN Hyperlipidemia CKD BPH Seizure Disorder h/o CVA Anemia - adjusted BiPAP settings - monitor ABG - O2 to keep SpO2 >90% - continue antibiotics - f/u cultures - aspiration precautions - continue lasix - monitor urine output, creatinine - NPO - rate control - off anticoagulation due h/o GI bleed - ICU monitoring for tenuous respiratory status critical care time spent in reviewing chart, evaluating patient and formulating plan 35 min
[2019-07-16 15:09] LABS: ARTERIAL BLD GAS O2 SATURATION 96.8 % (95-98); ARTERIAL BLOOD GAS BASE EXCESS 2.2 meq/l (-2-2); ARTERIAL BLOOD GAS PO2 91.4 mmHg (80-100); ARTERIAL BLOOD GAS pH 7.23 (7.35-7.45)
[2019-07-16 15:12] LABS: ALLENS TEST POSITIVE
[2019-07-16 15:16] LABS: ARTERIAL BLOOD GAS PCO2 76.2 mmHg (35-45)
--- NOTE | 2019-07-16 16:04 | CONSULT ---
Consultation: REQUESTING PROVIDER: Dr. Truong CONSULT REQUEST: We have been asked to medically evaluate this patient for ICU management. HISTORY OF PRESENT ILLNESS: 79 M with PMH of CHF, CKD III, colon cancer s/p partial resection, CAD s/p stent, Afib (AC stopped 2/2 GI Bleed), CVA with right sided weakness, pituitary adenoma s/p resection, hypothyroidism, BPH, seizures, who presented to [facility] with facial/orbital swelling, weakness and SOB for 1-2 weeks. He was found to be anemic on labs as an outpatient. Today he was noted to be in altered mental status on the hospital floors. He was noted to not respond to painful stimuli, nor respond to command initially, as time progressed other examiners f ound him responsive to pain but still not responsive to commands. Patient was also noted to be hypothermic with temperature of 95.4 rectally on the floors before warming was begun. Upon examining patient in ICU, he denied any pain, chest pain, weakness, fatigue, abdominal pain, nausea, vomiting, diarrhea. He did endorse shortness of breath. REVIEW OF SYSTEMS: CONSTITUTIONAL: Absent: fever, chills, diaphoresis, generalized weakness, malaise, loss of appetite, weight change HEENT: Absent: rhinorrhea, nasal congestion, throat pain, throat swelling, difficulty swallowing, mouth swelling, ear pain, eye pain, visual changes CARDIOVASCULAR: Absent: chest pain, syncope, palpitations, irregular heart rate, lightheadedness, peripheral edema RESPIRATORY: Present: shortness of breath Absent: cough,dyspnea with exertion, orthopnea, wheezing, stridor, hemoptysis GASTROINTESTINAL: Absent: abdominal pain, abdominal distension, nausea, vomiting, diarrhea, constipation, melena, hematochezia GENITOURINARY: Absent: dysuria, frequency, urgency, hesitancy, hematuria, flank pain, genital pain MUSCULOSKELETAL: Absent: myalgia, arthralgia, joint swelling, back pain, neck pain SKIN: Absent: rash, itching, pallor HEMATOLOGIC/IMMUNOLOGIC: Absent: easy bleeding, easy bruising, lymphadenopathy, frequent infections ENDOCRINE: Absent: unexplained weight gain, unexplained weight loss, heat intolerance, cold intolerance NEUROLOGIC: Absent: headache, focal weakness or paresthesias, dizziness, unsteady gait, seizure, mental status changes, bladder or bowel incontinence PSYCHIATRIC: Absent: anxiety, depression, suicidal or homicidal ideation, hallucinations. PHYSICAL EXAMINATION Vital Signs - 24 hr 07/15/19 07/15/19 07/15/19 18:00 20:35 22:00 Temperature 97.7 F 97.3 F L Pulse Rate 96 H 90 Respiratory 18 18 Rate Blood Pressure 130/76 123/73 O2 Sat by Pulse 95 Oximetry (%) 07/16/19 07/16/19 07/16/19 02:00 06:00 08:15 Temperature 97.3 F L 96.1 F L 95.4 F L Pulse Rate 88 84 78 Respiratory 18 24 H 22 H Rate Blood Pressure 126/63 121/66 119/62 O2 Sat by Pulse Oximetry (%) 07/16/19 07/16/19 07/16/19 09:00 11:18 12:00 Temperature 95 F L Pulse Rate 83 Respiratory 22 H 22 H Rate Blood Pressure 148/61 O2 Sat by Pulse 94 L 100 Oximetry (%) 07/16/19 13:03 Temperature 97.3 F L Pulse Rate 84 Respiratory 22 H Rate Blood Pressure 113/78 O2 Sat by Pulse Oximetry (%) GENERAL: Awake, alert, and fully oriented, in no acute distress. HEAD: Normal with no signs of trauma. EYES: Pupils equal, round and reactive to light, extraocular movements intact. EARS, NOSE, THROAT:BiPAP in place LUNGS: Diminished breath sounds b/l, wheezing b/l. HEART: Regular rate and rhythm, s1 s2 present, no murmurs rubs gallops ABDOMEN: Soft, nontender, distended , normoactive bowel sounds MUSCULOSKELETAL: Normal range of motion at all joints. No bony deformities or tenderness. No CVA tenderness. LOWER EXTREMITIES: 2+ pulses, warm, well-perfused. No calf tenderness.2 + edema PSYCHIATRIC: Cooperative. Good eye contact. Appropriate mood and affect. SKIN: Warm, dry, normal turgor Laboratory Results - last 24 hr 07/16/19 07/16/19 07/16/19 06:20 06:20 09:00 WBC 6.9 RBC 3.93 L Hgb 11.0 L Hct 36.7 MCV 93.3 MCH 28.1 MCHC 30.1 L RDW 15.8 Plt Count 138 MPV 7.5 Absolute Neuts (auto) 6.5 Neutrophils % 94.5 H Neutrophils % (Manual) 88.0 H Band Neutrophils % 2.0 Lymphocytes % 4.1 L D Lymphocytes % (Manual) 5.0 L Monocytes % 1.4 L D Monocytes % (Manual) 1 L Eosinophils % 0.0 D Eosinophils % (Manual) 0.0 Basophils % 0.0 Basophils % (Manual) 0.0 Myelocytes % (Man) 0 Promyelocytes % (Man) 0 Blast Cells % (Manual) 0 Nucleated RBC % 0 Metamyelocytes 0 Hypochromia 0 Platelet Estimate Decreased Polychromasia 1+ Poikilocytosis 2+ Basophilic Stippling 1+ Anisocytosis 2+ Microcytosis 2+ Macrocytosis 0 Spherocytes 1+ Ovalocytes 1+ Suring Cells 1+ Anticoagulation Therapy No Result Required. Puncture Site Right radial ABG pH 7.15 L* ABG pCO2 at Pt Temp 96.9 H* ABG pO2 at Pt Temp 93.8 ABG HCO3 32.2 H ABG O2 Sat (Measured) 96.1 ABG O2 Content 14.2 ABG Base Excess 1.3 Ishan Test Positive O2 Delivery Device No Result Required. Oxygen Flow Rate 4l Vent Mode No Result Required. Vent Rate No Result Required. Mechanical Rate No Result Required. Pressure Support Vent No Result Required. Sodium 141 Potassium 4.8 Chloride 104 Carbon Dioxide 29 Anion Gap 8 BUN 34.9 H Creatinine 2.4 H Est GFR (CKD-EPI)AfAm 28.26 Est GFR (CKD-EPI)NonAf 24.38 Random Glucose 259 H Lactic Acid Calcium 8.2 L Total Bilirubin 0.8 AST 17 ALT 14 Alkaline Phosphatase 74 Total Protein 6.4 Albumin 2.5 L 07/16/19 07/16/19 11:46 14:40 WBC RBC Hgb Hct MCV MCH MCHC RDW Plt Count MPV Absolute Neuts (auto) Neutrophils % Neutrophils % (Manual) Band Neutrophils % Lymphocytes % Lymphocytes % (Manual) Monocytes % Monocytes % (Manual) Eosinophils % Eosinophils % (Manual) Basophils % Basophils % (Manual) Myelocytes % (Man) Promyelocytes % (Man) Blast Cells % (Manual) Nucleated RBC % Metamyelocytes Hypochromia Platelet Estimate Polychromasia Poikilocytosis Basophilic Stippling Anisocytosis Microcytosis Macrocytosis Spherocytes Ovalocytes Suring Cells Anticoagulation Therapy No Result Required. Puncture Site Right radial ABG pH 7.23 L ABG pCO2 at Pt Temp 76.2 H* ABG pO2 at Pt Temp 91.4 ABG HCO3 30.9 H ABG O2 Sat (Measured) 96.8 ABG O2 Content 14.6 ABG Base Excess 2.2 H Ishan Test Positive O2 Delivery Device No Result Required. Oxygen Flow Rate Yes Vent Mode No Result Required. Vent Rate No Result Required. Mechanical Rate No Result Required. Pressure Support Vent No Result Required. Sodium Potassium Chloride Carbon Dioxide Anion Gap BUN Creatinine Est GFR (CKD-EPI)AfAm Est GFR (CKD-EPI)NonAf Random Glucose Lactic Acid 0.9 Calcium Total Bilirubin AST ALT Alkaline Phosphatase Total Protein Albumin Active Medications Generic Name Dose Route Start Last Admin Trade Name Freq PRN Reason Stop Dose Admin Amlodipine Besylate 5 mg 07/15/19 10:00 07/16/19 11:13 Norvasc - PO 5 mg DAILY REPLACED BY [facility] Administration Chlorhexidine Gluconate 1 applic 07/16/19 22:00 Hibiclens For Decolonization - TP HS MICHAEL Furosemide 40 mg 07/15/19 06:00 07/16/19 14:48 Lasix Injection - IVPUSH 40 mg BID@0600,1400 REPLACED BY [facility] Administration Ampicillin Sodium/Sulbactam 100 mls @ 200 mls/hr 07/16/19 22:00 Sodium 3 gm/ Sodium Chloride IVPB BID REPLACED BY [facility] Levetiracetam 500 mg 07/15/19 10:00 07/16/19 11:13 Keppra - PO 500 mg BID REPLACED BY [facility] Administration Levothyroxine Sodium 25 mcg 07/15/19 07:00 07/16/19 06:57 Synthroid - PO 25 mcg DAILY@0700 REPLACED BY [facility] Administration Mupirocin 1 applic 07/16/19 22:00 Bactroban Ointment (For Decolonization) - NS 07/21/19 21:59 BID REPLACED BY [facility] Mycophenolate Mofetil 500 mg 07/15/19 10:00 07/16/19 11:13 Cellcept - PO 500 mg DAILY MICHAEL Administration Non-Formulary Medication 750 mg 07/15/19 10:00 Niacin [Niaspan] PO DAILY REPLACED BY [facility] Prednisone 40 mg 07/15/19 10:00 07/16/19 11:12 Deltasone - PO 40 mg BID MICHAEL Administration Tamsulosin HCl 0.4 mg 07/15/19 08:30 07/16/19 11:13 Flomax - PO 0.4 mg DAILY@0830 MICHAEL Administration ASSESSMENT/PLAN: 79 M with PMH of CHF, CKD III, colon cancer s/p partial resection, CAD s/p stent, Afib (AC stopped 2/2 GI Bleed), CVA with right sided weakness, pituitary adenoma s/p resection, hypothyroidism, BPH, seizures, who was transferred to ICU for altered mental status and hypothermia. Neuro -Hx of CVA, seizures -AAOx3 -Head CT did not show any acute pathology -Continue Keppra -Will continue to monitor CV -Hx of CHF, CAD, Afib -Holding AC due to hx of GI bleed -Continuing lasix 40 BID -Crestor 10 mg HS -Amlodipine 5 Daily -Niacin 750 daily -Cardiology consulted, appreciate recs Pulm -Patient had ABG on floors before BiPAP showing : 7.15/96.9/93.8/32.2 -Repeat ABG after 1 hour of BiPAP showed 7.23/76.2/91.4/30.9 -On BipAP 12/6 30% Fio2 and RR of 12 -Mentating well -Solumedrol Q8H -Duonebs -Albuterol GI -Hx of GI bleeds -No acute issues -Continue diet -Continue to monitor Renal -CKD stage 3 -hx of BPH -Continue lasix 40 BId -No IVF -monitor urine output -Tamsulosin 0.4 mg PO -Nephrology consulted appreciate recjose antonio Endo -Hx of hypothyroid, hx of pituatiary adenoma s/p resection -Continue levothyroxine ID -Given zoysn before -Switched to Unasyn -F/U cultures F: Oral hydration E: Monitor CMP N: Sodium restricted Diet DVT: SCD Lines: Peripheral IVs Dispo: We will continue to follow the patient. Thank you for this consultative opportunity. Visit type - Emergency Visit Emergency Visit: Yes ED Registration Date: 07/14/19 Care time: The patient presented to the Emergency Department on the above date and was hospitalized for further evaluation of their emergent condition. - New Patient This patient is new to me today: Yes Date on this admission: 07/16/19 - Critical Care Critical Care patient: Yes Total Critical Care Time (in minutes): 36 Critical Care Statement: The care of this patient involved high complexity decision making to prevent further life threatening deterioration of the patient's condition and/or to evaluate & treat vital organ system(s) failure or risk of failure. ATTENDING PHYSICIAN STATEMENT I saw and evaluated the patient. I reviewed the resident's note and discussed the case with the resident. I agree with the resident's findings and plan as documented. SUBJECTIVE: OBJECTIVE: ASSESSMENT AND PLAN:
[2019-07-16] MEDS ORDERED: ALBUTEROL SO4 0.083% IH SOL 2.5 MG/3 ML VIAL.NEB. NEB PRN (17:58)
[2019-07-16] MEDS: methylPREDNISolone NA SUCC 40 MG/1 ML VIAL IVPUSH SCH (18:34)
[2019-07-16] MEDS: ALBUTEROL SO4 2.5/IPRATROPIUM 0.5 INH SOL 3 ML VIAL.NEB. NEB SCH (20:30)
[2019-07-16] MEDS: CHLORHEXIDINE GLUCONATE 4% CLEANSER FOR DECOLONIZATION TP SCH (21:52)
[2019-07-16] MEDS: AMPICILLIN NA/SULBACTAM NA 3 GM in SODIUM CHLORIDE 100 ML IVPB SCH (21:52)
[2019-07-16] MEDS: MUPIROCIN 2% TOPICAL OINTMENT FOR DECOLONIZATION NS SCH (21:54)
[2019-07-17] MEDS: methylPREDNISolone NA SUCC 40 MG/1 ML VIAL IVPUSH SCH ×5 (02:15→21:13)
[2019-07-17] MEDS: FUROSEMIDE 40 MG/4 ML INJECTABLE VIAL IVPUSH SCH ×3 (06:43→15:44)
[2019-07-17] MEDS: LEVOTHYROXINE NA 25 MCG TABLET (FP) PO SCH (06:43)
[2019-07-17 06:51] LABS: BASO % 0.1 % (0-2.0); HEMATOCRIT 34.7 % (35.4-49); HEMOGLOBIN 10.8 GM/dL (11.7-16.9); MCH 27.8 pg (25.7-33.7); MCHC 31.2 g/dl (32.0-35.9); MEAN CELL VOLUME 89.3 fl (80-96); MEAN PLT VOLUME 7.6 fl (7.5-11.1); MONO % 1.5 % (3.8-10.2); NEUT % 95.4 % (42.8-82.8); PLATELET COUNT 146 K/MM3 (134-434); RBC 3.88 M/mm3 (4.00-5.60); RDW 15.2 % (11.9-15.9); WHITE BLOOD COUNT 5.9 K/mm3 (4.0-10.0)
[2019-07-17 07:09] LABS: ALBUMIN 2.5 g/dl (3.4-5.0); BILIRUBIN,TOTAL 0.5 mg/dL (0.2-1); BLOOD UREA NITROGEN 43.5 mg/dL (7-18); CREATININE 2.6 mg/dL (0.55-1.3); MAGNESIUM 1.9 mg/dL (1.8-2.4); PHOSPHOROUS 5.9 mg/dL (2.5-4.9); POTASSIUM 4.6 mmol/L (3.5-5.1); TOT PROT 6.2 g/dl (6.4-8.2)
--- NOTE | 2019-07-17 07:13 | PN ---
Physical Exam: SUBJECTIVE: Patient seen and examined Awake, alert and oriented this morning. States that he is hungry and would like to leave the ICU. Denies SOB or chest pain. OBJECTIVE: Vital Signs Period Temp Pulse Resp BP Sys/Hair Pulse Ox Last 24 Hr 95 F-97.6 F 65-85 13-22 97-155/61-97 94-100 GENERAL: The patient is awake, alert, and fully oriented, in no acute distress. Wearing BiPAP mask. HEAD: Normal with no signs of trauma. EYES: PERRL, extraocular movements intact ENT: Ears normal, nares patent NECK: Trachea midline, full range of motion, supple LUNGS: crackles at bases bilaterally HEART: Regular rate and rhythm ABDOMEN: Soft, nontender, nondistended, normoactive bowel sounds EXTREMITIES: 2+ pulses, warm, well-perfused, no edema. NEUROLOGICAL: Cranial nerves II through XII grossly intact. Normal speech, gait not observed. PSYCH: Normal mood, normal affect. SKIN: Warm, dry, multiple lesions on skin Laboratory Results - last 24 hr 07/16/19 07/16/19 07/16/19 06:20 06:20 09:00 WBC 6.9 RBC 3.93 L Hgb 11.0 L Hct 36.7 MCV 93.3 MCH 28.1 MCHC 30.1 L RDW 15.8 Plt Count 138 MPV 7.5 Absolute Neuts (auto) 6.5 Neutrophils % 94.5 H Neutrophils % (Manual) 88.0 H Band Neutrophils % 2.0 Lymphocytes % 4.1 L D Lymphocytes % (Manual) 5.0 L Monocytes % 1.4 L D Monocytes % (Manual) 1 L Eosinophils % 0.0 D Eosinophils % (Manual) 0.0 Basophils % 0.0 Basophils % (Manual) 0.0 Myelocytes % (Man) 0 Promyelocytes % (Man) 0 Blast Cells % (Manual) 0 Nucleated RBC % 0 Metamyelocytes 0 Hypochromia 0 Platelet Estimate Decreased Polychromasia 1+ Poikilocytosis 2+ Basophilic Stippling 1+ Anisocytosis 2+ Microcytosis 2+ Macrocytosis 0 Spherocytes 1+ Ovalocytes 1+ Kayla Cells 1+ Anticoagulation Therapy No Result Required. Puncture Site Right radial ABG pH 7.15 L* ABG pCO2 at Pt Temp 96.9 H* ABG pO2 at Pt Temp 93.8 ABG HCO3 32.2 H ABG O2 Sat (Measured) 96.1 ABG O2 Content 14.2 ABG Base Excess 1.3 Ishan Test Positive O2 Delivery Device No Result Required. Oxygen Flow Rate 4l Vent Mode No Result Required. Vent Rate No Result Required. Mechanical Rate No Result Required. Pressure Support Vent No Result Required. Sodium 141 Potassium 4.8 Chloride 104 Carbon Dioxide 29 Anion Gap 8 BUN 34.9 H Creatinine 2.4 H Est GFR (CKD-EPI)AfAm 28.26 Est GFR (CKD-EPI)NonAf 24.38 Random Glucose 259 H Lactic Acid Calcium 8.2 L Phosphorus Magnesium Total Bilirubin 0.8 AST 17 ALT 14 Alkaline Phosphatase 74 Total Protein 6.4 Albumin 2.5 L TSH 07/16/19 07/16/19 07/17/19 11:46 14:40 05:40 WBC RBC Hgb Hct MCV MCH MCHC RDW Plt Count MPV Absolute Neuts (auto) Neutrophils % Neutrophils % (Manual) Band Neutrophils % Lymphocytes % Lymphocytes % (Manual) Monocytes % Monocytes % (Manual) Eosinophils % Eosinophils % (Manual) Basophils % Basophils % (Manual) Myelocytes % (Man) Promyelocytes % (Man) Blast Cells % (Manual) Nucleated RBC % Metamyelocytes Hypochromia Platelet Estimate Polychromasia Poikilocytosis Basophilic Stippling Anisocytosis Microcytosis Macrocytosis Spherocytes Ovalocytes Leslie Cells Anticoagulation Therapy No Result Required. Puncture Site Right radial ABG pH 7.23 L ABG pCO2 at Pt Temp 76.2 H* ABG pO2 at Pt Temp 91.4 ABG HCO3 30.9 H ABG O2 Sat (Measured) 96.8 ABG O2 Content 14.6 ABG Base Excess 2.2 H Ishan Test Positive O2 Delivery Device No Result Required. Oxygen Flow Rate Yes Vent Mode No Result Required. Vent Rate No Result Required. Mechanical Rate No Result Required. Pressure Support Vent No Result Required. Sodium 143 Potassium 4.6 Chloride 102 Carbon Dioxide 30 Anion Gap 10 BUN 43.5 H Creatinine 2.6 H Est GFR (CKD-EPI)AfAm 25.65 Est GFR (CKD-EPI)NonAf 22.14 Random Glucose 208 H Lactic Acid 0.9 Calcium 8.0 L Phosphorus 5.9 H Magnesium 1.9 Total Bilirubin 0.5 AST 10 L ALT 11 L Alkaline Phosphatase 63 Total Protein 6.2 L Albumin 2.5 L TSH 0.87 D Active Medications Generic Name Dose Route Start Last Admin Trade Name Freq PRN Reason Stop Dose Admin Albuterol Sulfate 1 amp 07/16/19 17:58 Ventolin 0.083% Nebulizer Soln - NEB Q4H PRN SHORT OF BREATH/WHEEZING Albuterol/Ipratropium 1 amp 07/16/19 20:00 07/16/19 20:30 Duoneb - NEB 1 amp RQID MICHAEL Administration Amlodipine Besylate 5 mg 07/15/19 10:00 07/16/19 11:13 Norvasc - PO 5 mg DAILY MICHAEL Administration Chlorhexidine Gluconate 1 applic 07/16/19 22:00 07/16/19 21:52 Hibiclens For Decolonization - TP 1 applic HS MICHAEL Administration Furosemide 40 mg 07/15/19 06:00 07/17/19 06:43 Lasix Injection - IVPUSH 40 mg BID@0600,1400 MICHAEL Administration Ampicillin Sodium/Sulbactam 100 mls @ 200 mls/hr 07/16/19 22:00 07/16/19 21: 52 Sodium 3 gm/ Sodium Chloride IVPB 200 mls/hr BID MICHAEL Administration Levetiracetam 500 mg 07/15/19 10:00 07/16/19 21:52 Keppra - PO 500 mg BID MICHAEL Administration Levothyroxine Sodium 25 mcg 07/15/19 07:00 07/17/19 06:43 Synthroid - PO 25 mcg DAILY@0700 MICHAEL Administration Methylprednisolone Sodium Succinate 60 mg 07/16/19 18:00 07/17/19 02:15 Solu-Medrol - IVPUSH 60 mg Q8H-IV MICHAEL Administration Mupirocin 1 applic 07/16/19 22:00 07/16/19 21:54 Bactroban Ointment (For Decolonization) - NS 07/21/19 21:59 1 applic BID MICHAEL Administration Mycophenolate Mofetil 500 mg 07/15/19 10:00 07/16/19 11:13 Cellcept - PO 500 mg DAILY MICHAEL Administration Non-Formulary Medication 750 mg 07/15/19 10:00 Niacin [Niaspan] PO DAILY [facility] Rosuvastatin Calcium 10 mg 07/17/19 22:00 Crestor - PO HS MICHAEL Tamsulosin HCl 0.4 mg 07/15/19 08:30 07/16/19 11:13 Flomax - PO 0.4 mg DAILY@0830 MICHAEL Administration ASSESSMENT/PLAN: 79 yo M PMH CHF, CKD III, colon cancer s/p partial resection, CAD s/p stent, afib off AC 2/2 GI bleed, CVA with residual right sided weakness, pituitary adenoma s/p resection, hypothyroidism, BPH, seizures, transferred to ICU for altered mental status and hypothermia, found to be hypercapneic. Neuro: - hx CVA w/ residual R sided weakness, seizures - AAOx3 - head CT without acute pathology - continue Keppra CV: - hx CHF, CAD, afib - holding AC due to hx of GI bleed - continuing Lasix 40 BID - Crestor 10 mg HS - amlodipine 5 daily - niacin 750 daily - cardiology consulted, appreciate recs Respiratory: - Patient had ABG on floors before BiPAP showin.15/96.9/93.8/32.2 - Repeat ABG after 1 hour of BiPAP showed 7.23/76.2/91.4/30.9 - Morning ABG 7.32/56.1/105/29.5 - on BiPAP 12/6 30% Fio2 and RR of 12 - CXR consistent with fluid overload - mentating well - Solumedrol Q8H - Duonebs - Albuterol GI: - hx of GI bleeds - no acute issues - Continue sodium restricted diet - Continue to monitor Renal - CKD stage 3 - hx of BPH - continue lasix 40 BID - no IVF - monitor urine output - Tamsulosin 0.4 mg PO - nephrology, consulted appreciate recs Endo - hx of hypothyroid, hx of pituatiary adenoma s/p resection - continue levothyroxine ID - Given Zoysn initially - Switched to Unasyn - f/u cultures Derm: - home mycophenolate due to skin lesions starting on 06/13/2019 - 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 - New Patient This patient is new to me today: Yes Date on this admission: 07/17/19 - Critical Care Critical Care patient: Yes Total Critical Care Time (in minutes): 45 Critical Care Statement: The care of this patient involved high complexity decision making to prevent further life threatening deterioration of the patient 's condition and/or to evaluate & treat vital organ system(s) failure or risk of failure. ATTENDING PHYSICIAN STATEMENT I saw and evaluated the patient. I reviewed the resident's note and discussed the case with the resident. I agree with the resident's findings and plan as documented. SUBJECTIVE: OBJECTIVE: ASSESSMENT AND PLAN:
[2019-07-17] MEDS: ALBUTEROL SO4 0.083% IH SOL 2.5 MG/3 ML VIAL.NEB. NEB SCH ×3 (08:30→16:43)
[2019-07-17] MEDS ORDERED: PT OWN MED DRAWER 7, Y5N ONE ×4 (09:14→21:19)
[2019-07-17 09:36] LABS: ARTERIAL BLD GAS O2 SATURATION 97.8 % (95-98); ARTERIAL BLOOD GAS BASE EXCESS 2.7 meq/l (-2-2); ARTERIAL BLOOD GAS PCO2 59.1 mmHg (35-45); ARTERIAL BLOOD GAS PO2 105 mmHg (80-100); ARTERIAL BLOOD GAS pH 7.32 (7.35-7.45)
[2019-07-17 09:37] LABS: ALLENS TEST POSITIVE
[2019-07-17] MEDS: ALBUTEROL SO4 2.5/IPRATROPIUM 0.5 INH SOL 3 ML VIAL.NEB. NEB SCH ×4 (09:43→20:52)
[2019-07-17] MEDS: MYCOPHENOLATE MOFETIL 500 MG TABLET PO SCH (09:50)
[2019-07-17] MEDS: MUPIROCIN 2% TOPICAL OINTMENT FOR DECOLONIZATION NS SCH ×2 (09:50→21:18)
[2019-07-17] MEDS: levETIRAcetam 500 MG TABLET (FP) PO SCH ×2 (09:51→21:17)
[2019-07-17] MEDS: TAMSULOSIN HCL 0.4 MG CAP PO SCH (09:51)
--- NOTE | 2019-07-17 10:36 | PN ---
Progress Note, Physician Chief Complaint: IN ICU BED ON BIPAP ASLEEP EVENTS AND NOTES REVIEWED - Current Medication List Current Medications: Active Medications Albuterol Sulfate (Ventolin 0.083% Nebulizer Soln -) 1 amp NEB RQ4H MICHAEL Albuterol/Ipratropium (Duoneb -) 1 amp NEB RQID [facility] Last Admin: 07/17/19 09:43 Dose: 1 amp Chlorhexidine Gluconate (Hibiclens For Decolonization -) 1 applic TP HS [facility] Last Admin: 07/16/19 21:52 Dose: 1 applic Furosemide (Lasix Injection -) 40 mg IVPUSH BID@0600,1400 [facility] Ampicillin Sodium/Sulbactam (Sodium 3 gm/ Sodium Chloride) 100 mls @ 200 mls/ hr IVPB BID [facility] Last Admin: 07/16/19 21:52 Dose: 200 mls/hr Levetiracetam (Keppra -) 500 mg PO BID [facility] Last Admin: 07/17/19 09:51 Dose: 500 mg Levothyroxine Sodium (Synthroid -) 25 mcg PO DAILY@0700 [facility] Methylprednisolone Sodium Succinate (Solu-Medrol -) 60 mg IVPUSH Q8H-IV [facility] Last Admin: 07/17/19 02:15 Dose: 60 mg Methylprednisolone Sodium Succinate (Solu-Medrol -) 40 mg IVPUSH Q6H-IV [facility] Mupirocin (Bactroban Ointment (For Decolonization) -) 1 applic NS BID [facility] Stop: 07/21/19 21:59 Last Admin: 07/17/19 09:50 Dose: 1 applic Mycophenolate Mofetil (Cellcept -) 500 mg PO DAILY [facility] Last Admin: 07/17/19 09:50 Dose: 500 mg Rosuvastatin Calcium (Crestor -) 10 mg PO HS [facility] Tamsulosin HCl (Flomax -) 0.4 mg PO DAILY@0830 [facility] Last Admin: 07/17/19 09:51 Dose: 0.4 mg - Objective Vital Signs: Vital Signs Temperature 97.4 F L 07/17/19 10:00 Pulse Rate 80 07/17/19 10:00 Respiratory Rate 17 07/17/19 10:00 Blood Pressure 145/88 07/17/19 10:00 O2 Sat by Pulse Oximetry (%) 100 07/17/19 09:00 Constitutional: Yes: Moderate Distress Cardiovascular: Yes: Pulse Irregular Respiratory: Yes: Diminished, On BiPap, Rhonchi Gastrointestinal: Yes: Soft, Abdomen, Obese Genitourinary: Yes: [place]vall Present Musculoskeletal: Yes: Muscle Weakness Edema: Yes Neurological: Yes: Other Labs: CBC, BMP 07/17/19 05:40 07/17/19 05:40 INR, PTT INR 1.48 (0.83-1.09) H 07/14/19 22:46 Problem List - Problems (1) Anasarca Code(s): R60.1 - GENERALIZED EDEMA (2) Anemia Code(s): D64.9 - ANEMIA, UNSPECIFIED (3) CHF exacerbation Code(s): I50.9 - HEART FAILURE, UNSPECIFIED Qualifiers: Heart failure type: unspecified Qualified Code(s): I50.9 - Heart failure, unspecified (4) Hypercapnic respiratory failure Code(s): J96.92 - RESPIRATORY FAILURE, UNSPECIFIED WITH HYPERCAPNIA (5) Lethargy Code(s): R53.83 - OTHER FATIGUE (6) Pneumonia Code(s): J18.9 - PNEUMONIA, UNSPECIFIED ORGANISM (7) Acute on chronic renal insufficiency Code(s): N28.9 - DISORDER OF KIDNEY AND URETER, UNSPECIFIED; N18.9 - CHRONIC KIDNEY DISEASE, UNSPECIFIED (8) Acute on chronic systolic congestive heart failure Code(s): I50.23 - ACUTE ON CHRONIC SYSTOLIC (CONGESTIVE) HEART FAILURE (9) Afib Code(s): I48.91 - UNSPECIFIED ATRIAL FIBRILLATION Qualifiers: Atrial fibrillation type: paroxysmal Qualified Code(s): I48.0 - Paroxysmal atrial fibrillation (10) CKD (chronic kidney disease) Code(s): N18.9 - CHRONIC KIDNEY DISEASE, UNSPECIFIED (11) Cardiomyopathy Code(s): I42.9 - CARDIOMYOPATHY, UNSPECIFIED (12) Diabetes mellitus Code(s): E11.9 - TYPE 2 DIABETES MELLITUS WITHOUT COMPLICATIONS (13) HTN (hypertension) Code(s): I10 - ESSENTIAL (PRIMARY) HYPERTENSION (14) History of colon cancer Code(s): Z85.038 - PERSONAL HISTORY OF MALIGNANT NEOPLASM OF LARGE INTESTINE (15) Pulmonary hypertension Code(s): I27.2 - OTHER SECONDARY PULMONARY HYPERTENSION * DO NOT USE * (16) Seizure disorder Code(s): G40.909 - EPILEPSY, UNSP, NOT INTRACTABLE, WITHOUT STATUS EPILEPTICUS Assessment/Plan PULMONARY SUPPORT IN ICU ON BIPAP WILL INCREASE LASIX IV TO BID ELIMINATE VOLUME OVERLOAD CHF. MONITOR LABS, CKD RENAL F/U ICU TEAM F/U APPRECIATED ON IV ABX DVT PROPHYLAXIS
[2019-07-17 11:18] LABS: ANISOCYTOSIS 2+; MACROCYTOSIS 1+; OVALOCYTE 1+; PLATELET ESTIMATE DECREASED; TEAR DROP CELLS 1+
--- NOTE | 2019-07-17 11:24 | PN ---
Progress Note (short form) - Note Progress Note: s: lethargic, on bipap no cigs Current Medications Generic Name Dose Route Start Last Admin Trade Name Kelly PRN Reason Stop Dose Admin Albuterol Sulfate 1 amp 07/17/19 07:49 Ventolin 0.083% Nebulizer Soln - NEB RQ4H MICHAEL Albuterol/Ipratropium 1 amp 07/16/19 20:00 07/17/19 09:43 Duoneb - NEB 1 amp RQID MICHAEL Administration Chlorhexidine Gluconate 1 applic 07/16/19 22:00 07/16/19 21:52 Hibiclens For Decolonization - TP 1 applic HS MICHAEL Administration Furosemide 40 mg 07/17/19 10:54 Lasix Injection - IVPUSH BID@0600,1400 MICHAEL Ampicillin Sodium/Sulbactam 100 mls @ 200 mls/hr 07/16/19 22:00 07/16/19 21: 52 Sodium 3 gm/ Sodium Chloride IVPB 200 mls/hr BID MICHAEL Administration Levetiracetam 500 mg 07/17/19 10:00 07/17/19 09:51 Keppra - PO 500 mg BID MICHAEL Administration Levothyroxine Sodium 25 mcg 07/18/19 07:00 Synthroid - PO DAILY@0700 MICHAEL Methylprednisolone Sodium Succinate 40 mg 07/17/19 07:44 Solu-Medrol - IVPUSH Q6H-IV MICHAEL Mupirocin 1 applic 07/16/19 22:00 07/17/19 09:50 Bactroban Ointment (For Decolonization) - NS 07/21/19 21:59 1 applic BID MICHAEL Administration Mycophenolate Mofetil 500 mg 07/17/19 10:00 07/17/19 09:50 Cellcept - PO 500 mg DAILY MICHAEL Administration Rosuvastatin Calcium 10 mg 07/17/19 22:00 Crestor - PO HS MICHAEL Tamsulosin HCl 0.4 mg 07/17/19 08:30 07/17/19 09:51 Flomax - PO 0.4 mg DAILY@0830 MICHAEL Administration Vital Signs Temp 97.4 F L 07/17/19 10:00 Pulse 80 07/17/19 10:00 Resp 17 07/17/19 10:00 BP 145/88 07/17/19 10:00 Pulse Ox 100 07/17/19 09:00 Intake & Output 07/16/19 07/16/19 07/17/19 11:59 23:59 11:59 Intake Total 100 100 Output Total 500 600 Balance -500 100 -500 Weight 251 lb 257 lb 15.053 oz Intake: IV 100 Left EJ 100 IVPB 100 Output: Urine 500 600 Duvall 500 600 Other: Voiding Method Indwelling Catheter Indwelling Catheter Indwelling Catheter Bowel Movement No No No Weight Measurement Method Built in [facility] Built in [facility] nad, calm +JVD bibasilar rales, poor eff rrr nl s1, s2 2/6 sys murmur at apex. + bs soft nt nd, no hsm ext with 1+ edema diminished dp/pt lethragic no jaundice, diaphoresis Laboratory Last Values WBC 5.9 K/mm3 (4.0-10.0) 07/17/19 05:40 Corrected WBC (auto) Cancelled 07/14/19 19:10 RBC 3.88 M/mm3 (4.00-5.60) L 07/17/19 05:40 Hgb 10.8 GM/dL (11.7-16.9) L 07/17/19 05:40 Hct 34.7 % (35.4-49) L 07/17/19 05:40 MCV 89.3 fl (80-96) 07/17/19 05:40 MCH 27.8 pg (25.7-33.7) 07/17/19 05:40 MCHC 31.2 g/dl (32.0-35.9) L 07/17/19 05:40 RDW 15.2 % (11.9-15.9) 07/17/19 05:40 Plt Count 146 K/MM3 (134-434) 07/17/19 05:40 MPV 7.6 fl (7.5-11.1) 07/17/19 05:40 Absolute Neuts (auto) 5.6 K/mm3 (1.5-8.0) 07/17/19 05:40 Neutrophils % 95.4 % (42.8-82.8) H 07/17/19 05:40 Neutrophils % (Manual) 88.0 % (42.8-82.8) H 07/16/19 06:20 Band Neutrophils % 2.0 % 07/16/19 06:20 Lymphocytes % 3.0 % (8-40) L D 07/17/19 05:40 Lymphocytes % (Manual) 5.0 % (8-40) L 07/16/19 06:20 Monocytes % 1.5 % (3.8-10.2) L 07/17/19 05:40 Monocytes % (Manual) 1 % (3.8-10.2) L 07/16/19 06:20 Eosinophils % 0.0 % (0-4.5) 07/17/19 05:40 Eosinophils % (Manual) 0.0 % (0-4.5) 07/16/19 06:20 Basophils % 0.1 % (0-2.0) D 07/17/19 05:40 Basophils % (Manual) 0.0 % (0-2.0) 07/16/19 06:20 Myelocytes % (Man) 0 % (0-2) 07/16/19 06:20 Promyelocytes % (Man) 0 % (0-2) 07/16/19 06:20 Blast Cells % (Manual) 0 % (0-0) 07/16/19 06:20 Nucleated RBC % 0 % (0-0) 07/17/19 05:40 Metamyelocytes 0 % (0-2) 07/16/19 06:20 Hypochromia 0 07/16/19 06:20 Platelet Estimate Decreased 07/16/19 06:20 Platelet Comment Cancelled 07/14/19 19:10 Polychromasia 1+ 07/16/19 06:20 Poikilocytosis 2+ 07/16/19 06:20 Basophilic Stippling 1+ 07/16/19 06:20 Anisocytosis 2+ 07/16/19 06:20 Microcytosis 2+ 07/16/19 06:20 Macrocytosis 0 07/16/19 06:20 Spherocytes 1+ 07/16/19 06:20 Ovalocytes 1+ 07/16/19 06:20 [place] Cells 1+ 07/16/19 06:20 PT with INR 17.50 SEC (9.7-13.0) H 07/14/19 22:46 INR 1.48 (0.83-1.09) H 07/14/19 22:46 PTT (Actin FS) 39.8 SECONDS (25.2-36.5) H 07/14/19 22:46 Anticoagulation Therapy No Result Required. 07/17/19 08:46 Puncture Site Right radial 07/17/19 08:46 ABG pH 7.32 (7.35-7.45) L 07/17/19 08:46 ABG pCO2 at Pt Temp 59.1 mmHg (35-45) H 07/17/19 08:46 ABG pO2 at Pt Temp 105 mmHg (80-100) H 07/17/19 08:46 ABG HCO3 29.5 mmol/L (22-27) H 07/17/19 08:46 ABG O2 Sat (Measured) 97.8 % (95-98) 07/17/19 08:46 ABG O2 Content 15.3 % vol 07/17/19 08:46 ABG Base Excess 2.7 meq/l (-2-2) H 07/17/19 08:46 Ishan Test Positive 07/17/19 08:46 O2 Delivery Device No Result Required. 07/17/19 08:46 Oxygen Flow Rate 30 07/17/19 08:46 Vent Mode No Result Required. 07/17/19 08:46 Vent Rate No Result Required. 07/17/19 08:46 Mechanical Rate No Result Required. 07/17/19 08:46 Pressure Support Vent No Result Required. 07/17/19 08:46 Sodium 143 mmol/L (136-145) 07/17/19 05:40 Potassium 4.6 mmol/L (3.5-5.1) 07/17/19 05:40 Chloride 102 mmol/L (98-107) 07/17/19 05:40 Carbon Dioxide 30 mmol/L (21-32) 07/17/19 05:40 Anion Gap 10 MMOL/L (8-16) 07/17/19 05:40 BUN 43.5 mg/dL (7-18) H 07/17/19 05:40 Creatinine 2.6 mg/dL (0.55-1.3) H 07/17/19 05:40 Est GFR (CKD-EPI)AfAm 25.65 07/17/19 05:40 Est GFR (CKD-EPI)NonAf 22.14 07/17/19 05:40 Random Glucose 208 mg/dL (74-106) H 07/17/19 05:40 Lactic Acid 0.9 mmol/L (0.4-2.0) 07/16/19 11:46 Calcium 8.0 mg/dL (8.5-10.1) L 07/17/19 05:40 Phosphorus 5.9 mg/dL (2.5-4.9) H 07/17/19 05:40 Magnesium 1.9 mg/dL (1.8-2.4) 07/17/19 05:40 Iron 15 ug/dL (50-175) L 07/15/19 12:38 TIBC 286 ug/dL (250-450) 07/15/19 12:38 Iron Saturation 5 % (17.5-39) L 07/15/19 12:38 Unsaturated IBC 271 ug/dL (200-275) 07/15/19 12:38 Total Bilirubin 0.5 mg/dL (0.2-1) 07/17/19 05:40 AST 10 U/L (15-37) L 07/17/19 05:40 ALT 11 U/L (13-61) L 07/17/19 05:40 Alkaline Phosphatase 63 U/L (45-117) 07/17/19 05:40 Creatine Kinase 112 U/L (26-308) 07/14/19 19:10 CK-MB (CK-2) 1.7 ng/mL (0.5-3.6) 07/14/19 19:10 Troponin I 0.14 ng/ml (0.00-0.05) H 07/15/19 00:53 B-Natriuretic Peptide 94839.7 pg/ml (5-450) H 07/14/19 19:10 Total Protein 6.2 g/dl (6.4-8.2) L 07/17/19 05:40 Albumin 2.5 g/dl (3.4-5.0) L 07/17/19 05:40 Triglycerides 106 mg/dL (0-150) 07/15/19 12:38 Cholesterol 168 mg/dL (50-200) 07/15/19 12:38 Total LDL Cholesterol 97 mg/dL (5-100) 07/15/19 12:38 HDL Cholesterol 60 mg/dL (40-60) 07/15/19 12:38 TSH 0.87 uIU/ml (0.358-3.74) D 07/17/19 05:40 Urine Color Yellow 07/14/19 22:25 Urine Appearance Clear 07/14/19 22:25 Urine pH 5.0 (5.0-8.0) 07/14/19 22:25 Ur Specific [place] 1.014 (1.010-1.035) 07/14/19 22:25 Urine Protein 3+ (NEGATIVE) H 07/14/19 22:25 Urine Glucose (UA) Negative (NEGATIVE) 07/14/19 22:25 Urine Ketones Negative (NEGATIVE) 07/14/19 22: Urine Blood 1+ (NEGATIVE) H 07/14/19 22:25 Urine Nitrite Negative (NEGATIVE) 07/14/19 22: Urine Bilirubin Negative (NEGATIVE) 07/14/19 22: Urine Urobilinogen 1.0 mg/dL (0.2-1.0) 07/14/19 22:25 Ur Leukocyte Esterase Negative (NEGATIVE) 07/14/19 22:25 Urine WBC (Auto) 1 /hpf (0-5) 07/14/19 22:25 Urine RBC (Auto) 5 /hpf (0-4) 07/14/19 22:25 Urine Casts (Auto) 13 /lpf (0-8) 07/14/19 22:25 U Pathogenic Cast Auto none seen /lpf (NEGATIVE) 07/14/19 22:25 U Epithel Cells (Auto) 1.8 /HPF (0-5/HPF) 07/14/19 22:25 Urine Crystals (Auto) Few /hpf 07/14/19 22:25 Urine Bacteria (Auto) 0.2 /hpf (NEGATIVE) 07/14/19 22:25 Blood Type B POSITIVE 07/14/19 19:10 Antibody Screen Negative 07/14/19 19:10 07/20/15 Cardiac cath - Right-Sided Pressures are Increased, Mild Pulmonary Hypertension (pa mean 30), PVRI is mildly increased - 5, PCW is increased- 18, LVEDP is mildly elevated-18, Decreased Cardiac Output ~ 5.6 liter/min Coronary Anatomy : I Vessel CAD (RCA) LV Function/Aorta : Moderate systolic LV Dysfunction ~EF 35% Valves : 1. No Aortic stenosis 2. No Mitral stenosis 07/21/15 TTE - normal left ventricular size overall moderate decreased left ventricular systolic function (diffuse); ejection fraction = 43 % moderate concentric left ventricular hypertrophy abnormal left ventricular diastolic filling pattern [may be due to age or LVH] probable mild right ventricular dilatation probable mild decreased right ventricular function mild to moderate mitral regurgitation mild tricuspid regurgitation mild pulmonary hypertension ascending aorta dilatation technically difficult study Definity precision microbubble contrast used to enhance endocardial border definition mibi 06/2015: lvef 33%, no defects but +tid c/w high risk study mibi 09/2018 diaphragmatic attenuation, nl EF, no ischemia EKG afib, rate controlled, no ischemic changes echo 06/2019 mod conc LVH, low nl LV function, restrictive physiology, mildly dilated RV, mod reduced RV systolic function, LA mod dilated, RA sev dilated, mild MAC, mild MR, RVSP >60 mmHg, severe pulm HTN, mild AR tele: afib rate ok est cct 35 mins ASSESSMENT/PLAN 79yo with chronic diastolic HF, afib, cad s/p remote pci (2010 per pt), htn, hld , ckd, CVA ( residual BL motor weakness), seizure p/w dyspnea, edema hypothermia, alt mental status - manage abx per ID - CT head neg acute on chronic combined systolic and diastolic HF - history of systolic dysfunction with nl LV function on mibi 09/2018 - echo shows low nl LV function and restrictive physiology - continue lasix 40 mg IV BID - monitor Cr, lytes, daily weights elevated trop - indeterminate range, flat trend - EKG no ischemic changes, less likely ACS - likely demand in setting of HF exac Afib - not on AC due to history of anemia, GI bleed - rate controlled off av sravanthi blockade - hx of slow ventricular rate on coreg - monitoring on tele CAD hx prior PCI - S/p Cardiac cath 07/20/15 with Non Obstructive CAD, mibi no ischemia 09/2018 - not on antiplatelets given history of anemia - cont statin htn - bp controlled on current regimen, con't CKD - renal consulted anemia - manage per primary
--- NOTE | 2019-07-17 11:43 | CON.NEURO ---
Consult - History of Present Illness History of Present Illness: 79 M with PMH of CHF, CKD III, colon cancer s/p partial resection, CAD s/p stent , Afib (AC stopped 2/2 GI Bleed), CVA with right sided weakness, pituitary adenoma s/p resection, hypothyroidism, BPH, seizures, who presented to [facility] with facial/orbital swelling, weakness and SOB for 1-2 weeks. He was found to be anemic on labs as an outpatient. Today he was noted to be in altered mental status on the hospital floors. He was noted to not respond to painful stimuli, nor respond to command initially, as time progressed other examiners found him responsive to pain but still not responsive to commands. Patient was also noted to be hypothermic with temperature of 95.4 rectally on the floors before warming was begun. in ICU, he denied any pain, chest pain, weakness, fatigue, abdominal pain, nausea, vomiting, diarrhea. He did endorse shortness of breath. HD CT 07/16: white matter changes, no acute CVA /structural process. awake on BIPAP, following requests as per , ? 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 Cardio/Vascular: Yes: CAD, CHF, HTN, Hyperlipdemia Gastrointestinal: Yes: GI Bleed, Other (Colon cancer) Renal/: Yes: Renal Inusuff (see HPI) Endocrine: Yes: Diabetes Mellitus, Other (pituitary adenoma resection) - Past Surgical History Past Surgical History: Yes: Colectomy (partial given h/o colon cancer), Stent (s /p one vessel PCI) - Alcohol/Substance Use Hx Alcohol Use: No - Smoking History Smoking history: Never smoked Have you smoked in the past 12 months: No Aproximately how many cigarettes per day: 4 If you are a former smoker, when did you quit?: 2009 - Social History 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) History of Recent Travel: No Home Medications - Allergies Allergies/Adverse Reactions: Allergies Allergy/AdvReac Type Severity Reaction Status Date / Time No Known Allergies Allergy Verified 07/14/19 21:45 - Home Medications Home Medications: Ambulatory Orders Amlodipine Besylate [Norvasc -] 5 mg PO DAILY 07/15/19 Furosemide [Lasix] 20 mg PO BID 07/15/19 Levothyroxine [Synthroid -] 25 mcg PO DAILY 07/15/19 Mycophenolate Mofetil [Cellcept -] 500 mg PO DAILY 07/15/19 Niacin [Niaspan] 750 mg PO DAILY 07/15/19 Tamsulosin HCl [Flomax] 0.4 mg PO DAILY 07/15/19 levETIRAcetam [Keppra -] 500 mg PO BID 07/15/19 predniSONE [Deltasone -] 40 mg PO BID 07/15/19 Physical Exam-Neuro Vital Signs: Vital Signs Temperature 97.4 F L 07/17/19 10:00 Pulse Rate 80 07/17/19 10:00 Respiratory Rate 17 07/17/19 10:00 Blood Pressure 145/88 07/17/19 10:00 O2 Sat by Pulse Oximetry (%) 100 07/17/19 09:00 Labs: CBC, BMP 07/17/19 05:40 07/17/19 05:40 INR, PTT INR 1.48 (0.83-1.09) H 07/14/19 22:46 - Neuro Exam Level Of Consciousness: Yes: Alert (awake, answers name and name, following basic requests , EOMI, no facial, mild R isded weakness , ) Problem List - Problems (1) Altered mental state Code(s): R41.82 - ALTERED MENTAL STATUS, UNSPECIFIED (2) CHF exacerbation Code(s): I50.9 - HEART FAILURE, UNSPECIFIED Qualifiers: Heart failure type: unspecified Qualified Code(s): I50.9 - Heart failure, unspecified (3) Hypercapnic respiratory failure Code(s): J96.92 - RESPIRATORY FAILURE, UNSPECIFIED WITH HYPERCAPNIA Assessment/Plan 79 M with PMH of CHF, CKD III, colon cancer s/p partial resection, CAD s/p stent , Afib (AC stopped 2/2 GI Bleed), CVA with right sided weakness, pituitary adenoma s/p resection, hypothyroidism, BPH, seizures, who presented to [facility] with facial/orbital swelling, weakness and SOB for 1-2 weeks. He was found to be anemic on labs as an outpatient. Today he was noted to be in altered mental status on the hospital floors. He was noted to not respond to painful stimuli, nor respond to command initially, as time progressed other examiners found him responsive to pain but still not responsive to commands. Patient was also noted to be hypothermic with temperature of 95.4 rectally on the floors before warming was begun. in ICU, he denied any pain, chest pain, weakness, fatigue, abdominal pain, nausea, vomiting, diarrhea. He did endorse shortness of breath. HD CT 07/16: white matter changes, no acute CVA /structural process. awake on BIPAP, following requests as per , ? isolated SZ event in past -- on keppra since , she does not recall his neurologist AP : AMS secondary to CHF- fluid overload/respiratory complications , no evidence of new seizure or stroke more awake today and following requests cont KEppra 500bID HX of AFIB, no AC bc of GI bleed- to reassess this when more stable neuro sign off thanks DR RIOS
[2019-07-17] MEDS: AMPICILLIN NA/SULBACTAM NA 3 GM in SODIUM CHLORIDE 100 ML IVPB SCH ×2 (12:37→21:30)
--- NOTE | 2019-07-17 13:34 | PN ---
Teaching Attending Note Name of Resident: Rocio Campbell ATTENDING PHYSICIAN STATEMENT I saw and evaluated the patient. I reviewed the resident's note and discussed the case with the resident. I agree with the resident's findings and plan as documented. SUBJECTIVE: I saw and evaluated the patient. I reviewed the resident's note and discussed the case with the resident. I agree with the resident's findings and plan as documented. SUBJECTIVE: Patient seen and examined in the ICU. Sleepy but arousable on NIPPV support. No pressors. ABG improving. OBJECTIVE: Intake & Output 07/14/19 07/15/19 07/16/19 07/17/19 23:59 23:59 23:59 23:59 Intake Total 780 100 100 Output Total 500 2100 500 600 Balance -500 -1320 -400 -500 Weight 250 lb 253 lb 251 lb 257 lb 15.053 oz Last Vital Signs Temp Pulse Resp BP Pulse Ox 97.4 F L 79 17 138/80 100 07/17/19 10:00 07/17/19 12:00 07/17/19 12:00 07/17/19 12:00 07/17/19 09:00 Active Medications Albuterol Sulfate (Ventolin 0.083% Nebulizer Soln -) 1 amp NEB RQ4H [facility] Albuterol/Ipratropium (Duoneb -) 1 amp NEB RQID [facility] Last Admin: 07/17/19 09:43 Dose: 1 amp Chlorhexidine Gluconate (Hibiclens For Decolonization -) 1 applic TP HS [facility] Last Admin: 07/16/19 21:52 Dose: 1 applic Furosemide (Lasix Injection -) 40 mg IVPUSH BID@0600,1400 [facility] Last Admin: 07/17/19 11:48 Dose: 40 mg Ampicillin Sodium/Sulbactam (Sodium 3 gm/ Sodium Chloride) 100 mls @ 200 mls/ hr IVPB BID [facility] Last Admin: 07/17/19 12:37 Dose: 200 mls/hr Levetiracetam (Keppra -) 500 mg PO BID [facility] Last Admin: 07/17/19 09:51 Dose: 500 mg Levothyroxine Sodium (Synthroid -) 25 mcg PO DAILY@0700 [facility] Methylprednisolone Sodium Succinate (Solu-Medrol -) 40 mg IVPUSH Q6H-IV [facility] Last Admin: 07/17/19 12:37 Dose: 40 mg Mupirocin (Bactroban Ointment (For Decolonization) -) 1 applic NS BID [facility] Stop: 07/21/19 21:59 Last Admin: 07/17/19 09:50 Dose: 1 applic Mycophenolate Mofetil (Cellcept -) 500 mg PO DAILY [facility] Last Admin: 07/17/19 09:50 Dose: 500 mg Rosuvastatin Calcium (Crestor -) 10 mg PO [facility] Tamsulosin HCl (Flomax -) 0.4 mg PO DAILY@0830 [facility] Last Admin: 07/17/19 09:51 Dose: 0.4 mg Gen: Drowsy but easily arousable Heart: RRR Lung: Bilateral rales and rhonchi Abd: soft, nontender Ext: + edema Laboratory Results - last 24 hr 07/16/19 07/17/19 07/17/19 14:40 05:40 05:40 WBC 5.9 RBC 3.88 L Hgb 10.8 L Hct 34.7 L MCV 89.3 MCH 27.8 MCHC 31.2 L RDW 15.2 Plt Count 146 MPV 7.6 Absolute Neuts (auto) 5.6 Neutrophils % 95.4 H Neutrophils % (Manual) 91.3 H Band Neutrophils % 3.9 Lymphocytes % 3.0 L D Lymphocytes % (Manual) 1.9 L D Monocytes % 1.5 L Monocytes % (Manual) 0 L D Eosinophils % 0.0 Eosinophils % (Manual) 0.0 Basophils % 0.1 D Basophils % (Manual) 0.0 Myelocytes % (Man) 1 D Promyelocytes % (Man) 0 Blast Cells % (Manual) 0 Nucleated RBC % 1 H Metamyelocytes 0 Hypochromia 0 Platelet Estimate Decreased Platelet Comment Present Polychromasia 1+ Poikilocytosis 2+ Anisocytosis 2+ Microcytosis 1+ Macrocytosis 1+ Spherocytes 1+ Tear Drop Cells 1+ Ovalocytes 1+ Acanthocytes (Spur) 1+ Anticoagulation Therapy No Result Required. Puncture Site Right radial ABG pH 7.23 L ABG pCO2 at Pt Temp 76.2 H* ABG pO2 at Pt Temp 91.4 ABG HCO3 30.9 H ABG O2 Sat (Measured) 96.8 ABG O2 Content 14.6 ABG Base Excess 2.2 H Ishan Test Positive O2 Delivery Device No Result Required. Oxygen Flow Rate Yes Vent Mode No Result Required. Vent Rate No Result Required. Mechanical Rate No Result Required. Pressure Support Vent No Result Required. Sodium 143 Potassium 4.6 Chloride 102 Carbon Dioxide 30 Anion Gap 10 BUN 43.5 H Creatinine 2.6 H Est GFR (CKD-EPI)AfAm 25.65 Est GFR (CKD-EPI)NonAf 22.14 Random Glucose 208 H Calcium 8.0 L Phosphorus 5.9 H Magnesium 1.9 Total Bilirubin 0.5 AST 10 L ALT 11 L Alkaline Phosphatase 63 Total Protein 6.2 L Albumin 2.5 L TSH 0.87 D 07/17/19 08:46 WBC RBC Hgb Hct MCV MCH MCHC RDW Plt Count MPV Absolute Neuts (auto) Neutrophils % Neutrophils % (Manual) Band Neutrophils % Lymphocytes % Lymphocytes % (Manual) Monocytes % Monocytes % (Manual) Eosinophils % Eosinophils % (Manual) Basophils % Basophils % (Manual) Myelocytes % (Man) Promyelocytes % (Man) Blast Cells % (Manual) Nucleated RBC % Metamyelocytes Hypochromia Platelet Estimate Platelet Comment Polychromasia Poikilocytosis Anisocytosis Microcytosis Macrocytosis Spherocytes Tear Drop Cells Ovalocytes Acanthocytes (Spur) Anticoagulation Therapy No Result Required. Puncture Site Right radial ABG pH 7.32 L ABG pCO2 at Pt Temp 59.1 H ABG pO2 at Pt Temp 105 H ABG HCO3 29.5 H ABG O2 Sat (Measured) 97.8 ABG O2 Content 15.3 ABG Base Excess 2.7 H Ishan Test Positive O2 Delivery Device No Result Required. Oxygen Flow Rate 30 Vent Mode No Result Required. Vent Rate No Result Required. Mechanical Rate No Result Required. Pressure Support Vent No Result Required. Sodium Potassium Chloride Carbon Dioxide Anion Gap BUN Creatinine Est GFR (CKD-EPI)AfAm Est GFR (CKD-EPI)NonAf Random Glucose Calcium Phosphorus Magnesium Total Bilirubin AST ALT Alkaline Phosphatase Total Protein Albumin TSH ASSESSMENT AND PLAN: Acute Hypercapneic Respiratory Failure Altered Mental Status Pneumonia likely Aspiration Acute COPD Exacerbation Acute on Chronic Diastolic Heart Failure Pulmonary HTN Acute on Chronic Renal Failure Atrial Fibrillation +Troponins likely Demand Ischemia CAD HTN Hyperlipidemia CKD BPH Seizure Disorder h/o CVA Anemia - NIPPV support as needed - Lasix IVP - O2 to keep SpO2 >90% - continue antibiotics - f/u final cultures - aspiration precautions - monitor urine output, creatinine - rate control - off anticoagulation due h/o GI bleed - 4W /4S monitoring Dr Contreras
[2019-07-17] MEDS ORDERED: FUROSEMIDE 40 MG/4 ML INJECTABLE VIAL IVPUSH SCH (14:00)
--- NOTE | 2019-07-17 14:55 | PN ---
Progress Note (short form) - Note Progress Note: much improved alert conversant nasal canulla chronic skin changes on both arms Vital Signs Period Temp Pulse Resp BP Sys/Hair Pulse Ox Last 24 Hr 96.1 F-97.9 F 65-85 13-21 97-157/63-97 95-100 cor-rrr lungs decreased bs at base abd soft,nt ext +edema CBC, BMP 07/17/19 05:40 07/17/19 05:40 Microbiology 07/16/19 11:58 Blood - Peripheral Venous Blood Culture - Preliminary NO GROWTH OBTAINED AFTER 24 HOURS, INCUBATION TO CONTINUE FOR 4 DAYS. 07/16/19 11:46 Blood - Peripheral Venous Blood Culture - Preliminary NO GROWTH OBTAINED AFTER 24 HOURS, INCUBATION TO CONTINUE FOR 4 DAYS. 07/16/19 18:05 Urine For Antigen Detection Legionella Antigen - Final 07/16/19 18:05 Urine For Antigen Detection Streptococcus pneumoniae Antigen (M - Final 07/14/19 22:25 Urine - Urine - Catheterized Urine Culture - Final NO GROWTH OBTAINED Current Medications Albuterol Sulfate (Ventolin 0.083% Nebulizer Soln -) 1 amp NEB RQ4H [facility] Last Admin: 07/17/19 14:41 Dose: 1 amp Albuterol/Ipratropium (Duoneb -) 1 amp NEB RQID [facility] Last Admin: 07/17/19 14:40 Dose: 1 amp Chlorhexidine Gluconate (Hibiclens For Decolonization -) 1 applic TP HS [facility] Last Admin: 07/16/19 21:52 Dose: 1 applic Furosemide (Lasix Injection -) 40 mg IVPUSH BID@0600,1400 [facility] Last Admin: 07/17/19 11:48 Dose: 40 mg Ampicillin Sodium/Sulbactam (Sodium 3 gm/ Sodium Chloride) 100 mls @ 200 mls/ hr IVPB BID [facility] Last Admin: 07/17/19 12:37 Dose: 200 mls/hr Levetiracetam (Keppra -) 500 mg PO BID [facility] Last Admin: 07/17/19 09:51 Dose: 500 mg Levothyroxine Sodium (Synthroid -) 25 mcg PO DAILY@0700 [facility] Methylprednisolone Sodium Succinate (Solu-Medrol -) 40 mg IVPUSH Q6H-IV [facility] Last Admin: 07/17/19 12:37 Dose: 40 mg Mupirocin (Bactroban Ointment (For Decolonization) -) 1 applic NS BID [facility] Stop: 07/21/19 21:59 Last Admin: 07/17/19 09:50 Dose: 1 applic Mycophenolate Mofetil (Cellcept -) 500 mg PO DAILY [facility] Last Admin: 07/17/19 09:50 Dose: 500 mg Rosuvastatin Calcium (Crestor -) 10 mg PO HS [facility] Tamsulosin HCl (Flomax -) 0.4 mg PO DAILY@0830 [facility] Last Admin: 07/17/19 09:51 Dose: 0.4 mg a/p Hypercapneic respiratory failure acute on chronic CHF-on iv lasix suspect copd-former smoker cannot r/o pneumonia- ?aspiration with lethargy and hypothermia overnight ckd cultures sent add urinary antigens switch to unasyn for possible aspiration adjust for ckd reepat cxray in am Problem List - Problems (1) Hypercapnic respiratory failure Code(s): J96.92 - RESPIRATORY FAILURE, UNSPECIFIED WITH HYPERCAPNIA (2) CHF exacerbation Code(s): I50.9 - HEART FAILURE, UNSPECIFIED Qualifiers: Heart failure type: unspecified Qualified Code(s): I50.9 - Heart failure, unspecified (3) Pneumonia Code(s): J18.9 - PNEUMONIA, UNSPECIFIED ORGANISM (4) CKD (chronic kidney disease) Code(s): N18.9 - CHRONIC KIDNEY DISEASE, UNSPECIFIED
--- NOTE | 2019-07-17 16:21 | PN ---
Progress Note, Physician History of Present Illness: Pt seen and examined at bedside. He is more awake and alert. - Current Medication List Current Medications: Active Medications Albuterol Sulfate (Ventolin 0.083% Nebulizer Soln -) 1 amp NEB RQ4H [facility] Last Admin: 07/17/19 14:41 Dose: 1 amp Albuterol/Ipratropium (Duoneb -) 1 amp NEB RQID [facility] Last Admin: 07/17/19 14:40 Dose: 1 amp Chlorhexidine Gluconate (Hibiclens For Decolonization -) 1 applic TP HS [facility] Last Admin: 07/16/19 21:52 Dose: 1 applic Furosemide (Lasix Injection -) 40 mg IVPUSH BID@0600,1400 [facility] Last Admin: 07/17/19 15:44 Dose: Not Given Ampicillin Sodium/Sulbactam (Sodium 3 gm/ Sodium Chloride) 100 mls @ 200 mls/ hr IVPB BID [facility] Last Admin: 07/17/19 12:37 Dose: 200 mls/hr Levetiracetam (Keppra -) 500 mg PO BID [facility] Last Admin: 07/17/19 09:51 Dose: 500 mg Levothyroxine Sodium (Synthroid -) 25 mcg PO DAILY@0700 [facility] Methylprednisolone Sodium Succinate (Solu-Medrol -) 40 mg IVPUSH Q6H-IV [facility] Last Admin: 07/17/19 15:44 Dose: 40 mg Mupirocin (Bactroban Ointment (For Decolonization) -) 1 applic NS BID [facility] Stop: 07/21/19 21:59 Last Admin: 07/17/19 09:50 Dose: 1 applic Mycophenolate Mofetil (Cellcept -) 500 mg PO DAILY [facility] Last Admin: 07/17/19 09:50 Dose: 500 mg Rosuvastatin Calcium (Crestor -) [address] [facility] Tamsulosin HCl (Flomax -) 0.4 mg PO DAILY@0830 [facility] Last Admin: 07/17/19 09:51 Dose: 0.4 mg - Objective Vital Signs: Vital Signs Temperature 97.9 F 07/17/19 13:51 Pulse Rate 81 07/17/19 13:51 Respiratory Rate 17 07/17/19 13:51 Blood Pressure 124/73 07/17/19 13:51 O2 Sat by Pulse Oximetry (%) 95 07/17/19 12:40 Constitutional: Yes: Calm Eyes: Yes: Conjunctiva Clear HENT: Yes: Atraumatic Neck: Yes: Supple Cardiovascular: Yes: S1, S2 Respiratory: Yes: CTA Bilaterally, On Nasal O2 Gastrointestinal: Yes: Normal Bowel Sounds, Soft Genitourinary: Yes: Incontinence Musculoskeletal: Yes: Muscle Weakness Edema: LLE: 1+, RLE: 1+ Neurological: Yes: Oriented Labs: CBC, BMP 07/17/19 05:40 07/17/19 05:40 INR, PTT INR 1.48 (0.83-1.09) H 07/14/19 22:46 Assessment/Plan Current Medications Generic Name Dose Route Start Last Admin Trade Name Freq PRN Reason Stop Dose Admin Albuterol Sulfate 1 amp 07/17/19 07:49 07/17/19 14:41 Ventolin 0.083% Nebulizer Soln - NEB 1 amp RQ4H [facility] Administration Albuterol/Ipratropium 1 amp 07/16/19 20:00 07/17/19 14:40 Duoneb - NEB 1 amp RQID [facility] Administration Chlorhexidine Gluconate 1 applic 07/16/19 22:00 07/16/19 21:52 Hibiclens For Decolonization - TP 1 applic HS [facility] Administration Furosemide 40 mg 07/17/19 10:54 07/17/19 15:44 Lasix Injection - IVPUSH Not Given BID@0600,1400 [facility] Ampicillin Sodium/Sulbactam 100 mls @ 200 mls/hr 07/16/19 22:00 07/17/19 12: 37 Sodium 3 gm/ Sodium Chloride IVPB 200 mls/hr BID [facility] Administration Levetiracetam 500 mg 07/17/19 10:00 07/17/19 09:51 Keppra - PO 500 mg BID [facility] Administration Levothyroxine Sodium 25 mcg 07/18/19 07:00 Synthroid - PO DAILY@0700 [facility] Methylprednisolone Sodium Succinate 40 mg 07/17/19 07:44 07/17/19 15:44 Solu-Medrol - IVPUSH 40 mg Q6H-IV [facility] Administration Mupirocin 1 applic 07/16/19 22:00 07/17/19 09:50 Bactroban Ointment (For Decolonization) - NS 02/03/20 21:59 1 applic BID [facility] Administration Mycophenolate Mofetil 500 mg 07/17/19 10:00 07/17/19 09:50 Cellcept - PO 500 mg DAILY [facility] Administration Rosuvastatin Calcium 10 mg 07/17/19 22:00 Crestor - PO HS [facility] Tamsulosin HCl 0.4 mg 07/17/19 08:30 07/17/19 09:51 Flomax - PO 0.4 mg DAILY@0830 [facility] Administration Impression 1. CKD 2. CHF 3. BPH 4. a. fib 5. CAD 6. epilepsy 7. proteinuria 8. anemia 9. acute resp failure 10. hypernatremia Plan - cont lasix - repeat labs in am - volume status improving - avoid nsaids - mental status is improved Dr Tipton
[2019-07-17] MEDS: ROSUVASTATIN CA 10 MG TABLET (FP) PO SCH (21:17)
[2019-07-17] MEDS: CHLORHEXIDINE GLUCONATE 4% CLEANSER FOR DECOLONIZATION TP SCH (21:30)
[2019-07-18] MEDS: methylPREDNISolone NA SUCC 40 MG/1 ML VIAL IVPUSH SCH ×3 (02:52→17:22)
[2019-07-18] MEDS: FUROSEMIDE 40 MG/4 ML INJECTABLE VIAL IVPUSH SCH ×2 (05:51→14:34)
[2019-07-18] MEDS: LEVOTHYROXINE NA 25 MCG TABLET (FP) PO SCH (06:00)
[2019-07-18 06:54] LABS: BASO % 0.1 % (0-2.0); HEMATOCRIT 34.3 % (35.4-49); HEMOGLOBIN 10.7 GM/dL (11.7-16.9); LYMPH % 2.4 % (8-40); MCH 27.7 pg (25.7-33.7); MCHC 31.4 g/dl (32.0-35.9); MEAN CELL VOLUME 88.3 fl (80-96); MEAN PLT VOLUME 7.8 fl (7.5-11.1); MONO % 3.3 % (3.8-10.2); NEUT % 94.2 % (42.8-82.8); PLATELET COUNT 176 K/MM3 (134-434); RBC 3.88 M/mm3 (4.00-5.60); RDW 14.7 % (11.9-15.9); WHITE BLOOD COUNT 10.2 K/mm3 (4.0-10.0)
[2019-07-18] MEDS: ALBUTEROL SO4 2.5/IPRATROPIUM 0.5 INH SOL 3 ML VIAL.NEB. NEB SCH ×2 (07:38→11:20)
[2019-07-18] MEDS: ALBUTEROL SO4 0.083% IH SOL 2.5 MG/3 ML VIAL.NEB. NEB SCH (07:40)
[2019-07-18 07:58] LABS: ALBUMIN 2.6 g/dl (3.4-5.0); BILIRUBIN,TOTAL 0.7 mg/dL (0.2-1); BLOOD UREA NITROGEN 57.2 mg/dL (7-18); CALCIUM 8.2 mg/dL (8.5-10.1); CREATININE 2.8 mg/dL (0.55-1.3); PHOSPHOROUS 3.9 mg/dL (2.5-4.9); POTASSIUM 4.3 mmol/L (3.5-5.1); TOT PROT 6.5 g/dl (6.4-8.2)
[2019-07-18] MEDS ORDERED: PT OWN MED DRAWER 7, Y5N ONE ×2 (09:38→20:44)
[2019-07-18] MEDS: TAMSULOSIN HCL 0.4 MG CAP PO SCH (09:51)
[2019-07-18] MEDS: levETIRAcetam 500 MG TABLET (FP) PO SCH ×2 (09:52→20:59)
[2019-07-18] MEDS: AMPICILLIN NA/SULBACTAM NA 3 GM in SODIUM CHLORIDE 100 ML IVPB SCH ×2 (09:52→21:01)
[2019-07-18] MEDS: MUPIROCIN 2% TOPICAL OINTMENT FOR DECOLONIZATION NS SCH ×2 (09:53→21:00)
[2019-07-18] MEDS: MYCOPHENOLATE MOFETIL 500 MG TABLET PO SCH (09:53)
[2019-07-18 10:05] LABS: ANISOCYTOSIS 1+; MACROCYTOSIS 0; PLATELET ESTIMATE NORMAL
[2019-07-18] MEDS ORDERED: amLODIPine BESYLATE 5 MG TABLET (FP) PO SCH (10:15)
--- NOTE | 2019-07-18 10:19 | PN ---
Progress Note, Physician Chief Complaint: AWAKE MORE ALERT ON ROOM AIR AND IS COMFORTABLE - Current Medication List Current Medications: Active Medications Albuterol Sulfate (Ventolin 0.083% Nebulizer Soln -) 1 amp NEB RQ4H [facility] Last Admin: 07/18/19 07:40 Dose: Not Given Albuterol/Ipratropium (Duoneb -) 1 amp NEB RQID [facility] Last Admin: 07/18/19 07:38 Dose: Not Given Amlodipine Besylate (Norvasc -) 5 mg PO DAILY [facility] Chlorhexidine Gluconate (Hibiclens For Decolonization -) 1 applic TP HS [facility] Last Admin: 07/16/19 21:52 Dose: 1 applic Furosemide (Lasix Injection -) 40 mg IVPUSH BID@0600,1400 [facility] Last Admin: 07/18/19 05:51 Dose: 40 mg Hydralazine HCl (Apresoline Injection -) 10 mg IVPUSH ONCE ONE Stop: 07/18/19 10:12 Ampicillin Sodium/Sulbactam (Sodium 3 gm/ Sodium Chloride) 100 mls @ 200 mls/ hr IVPB BID [facility] Last Admin: 07/18/19 09:52 Dose: 200 mls/hr Levetiracetam (Keppra -) 500 mg PO BID [facility] Last Admin: 07/18/19 09:52 Dose: 500 mg Levothyroxine Sodium (Synthroid -) 25 mcg PO DAILY@0700 [facility] Last Admin: 07/18/19 06:00 Dose: 25 mcg Methylprednisolone Sodium Succinate (Solu-Medrol -) 40 mg IVPUSH Q6H-IV [facility] Last Admin: 07/18/19 09:51 Dose: 40 mg Mupirocin (Bactroban Ointment (For Decolonization) -) 1 applic NS BID [facility] Stop: 07/21/19 21:59 Last Admin: 07/18/19 09:53 Dose: 1 applic Mycophenolate Mofetil (Cellcept -) 500 mg PO DAILY [facility] Last Admin: 07/18/19 09:53 Dose: 500 mg Rosuvastatin Calcium (Crestor -) 10 mg PO HS [facility] Last Admin: 07/17/19 21:17 Dose: 10 mg Tamsulosin HCl (Flomax -) 0.4 mg PO DAILY@0830 [facility] Last Admin: 07/18/19 09:51 Dose: 0.4 mg - Objective Vital Signs: Vital Signs Temperature 98.6 F 07/18/19 09:23 Pulse Rate 91 H 07/18/19 09:23 Respiratory Rate 25 H 07/18/19 08:00 Blood Pressure 176/100 H 07/18/19 08:00 O2 Sat by Pulse Oximetry (%) 97 07/18/19 08:25 Constitutional: Yes: Mild Distress Cardiovascular: Yes: Pulse Irregular Respiratory: Yes: Diminished Genitourinary: Yes: Incontinence Musculoskeletal: Yes: Muscle Weakness Edema: Yes Edema: LLE: Trace, RLE: Trace Labs: CBC, BMP 07/18/19 05:50 07/18/19 05:50 INR, PTT INR 1.48 (0.83-1.09) H 07/14/19 22:46 Problem List - Problems (1) Anasarca Code(s): R60.1 - GENERALIZED EDEMA (2) Anemia Code(s): D64.9 - ANEMIA, UNSPECIFIED (3) CHF exacerbation Code(s): I50.9 - HEART FAILURE, UNSPECIFIED Qualifiers: Heart failure type: unspecified Qualified Code(s): I50.9 - Heart failure, unspecified (4) Hypercapnic respiratory failure Code(s): J96.92 - RESPIRATORY FAILURE, UNSPECIFIED WITH HYPERCAPNIA (5) Lethargy Code(s): R53.83 - OTHER FATIGUE (6) Pneumonia Code(s): J18.9 - PNEUMONIA, UNSPECIFIED ORGANISM (7) Acute on chronic renal insufficiency Code(s): N28.9 - DISORDER OF KIDNEY AND URETER, UNSPECIFIED; N18.9 - CHRONIC KIDNEY DISEASE, UNSPECIFIED (8) Acute on chronic systolic congestive heart failure Code(s): I50.23 - ACUTE ON CHRONIC SYSTOLIC (CONGESTIVE) HEART FAILURE (9) Afib Code(s): I48.91 - UNSPECIFIED ATRIAL FIBRILLATION Qualifiers: Atrial fibrillation type: paroxysmal Qualified Code(s): I48.0 - Paroxysmal atrial fibrillation (10) CKD (chronic kidney disease) Code(s): N18.9 - CHRONIC KIDNEY DISEASE, UNSPECIFIED (11) Cardiomyopathy Code(s): I42.9 - CARDIOMYOPATHY, UNSPECIFIED (12) Diabetes mellitus Code(s): E11.9 - TYPE 2 DIABETES MELLITUS WITHOUT COMPLICATIONS (13) HTN (hypertension) Code(s): I10 - ESSENTIAL (PRIMARY) HYPERTENSION (14) History of colon cancer Code(s): Z85.038 - PERSONAL HISTORY OF MALIGNANT NEOPLASM OF LARGE INTESTINE (15) Pulmonary hypertension Code(s): I27.2 - OTHER SECONDARY PULMONARY HYPERTENSION * DO NOT USE * (16) Seizure disorder Code(s): G40.909 - EPILEPSY, UNSP, NOT INTRACTABLE, WITHOUT STATUS EPILEPTICUS Assessment/Plan PULMONARY F/U APPRECIATED BP CONTROL ADD HYDRALAZINE WILL INCREASE LASIX IV TO BID ELIMINATE VOLUME OVERLOAD CHF. MONITOR LABS, CKD RENAL F/U ICU TEAM F/U APPRECIATED ON IV ABX DVT PROPHYLAXIS
[2019-07-18] MEDS ORDERED: hydrALAZINE HCL 20 MG/ML VIAL IVPUSH ONE (10:45)
--- NOTE | 2019-07-18 11:36 | PN ---
Teaching Attending Note Name of Resident: Cheri Navarro ATTENDING PHYSICIAN STATEMENT I saw and evaluated the patient. I reviewed the resident's note and discussed the case with the resident. I agree with the resident's findings and plan as documented. I saw and evaluated the patient. I reviewed the resident's note and discussed the case with the resident. I agree with the resident's findings and plan as documented. SUBJECTIVE: Patient seen and examined in the ICU. Awake and alert on NC O2. Refused NIPPV support overnight. OBJECTIVE: Intake & Output 07/15/19 07/16/19 07/17/19 07/18/19 23:59 23:59 23:59 23:59 Intake Total 780 100 780 600 Output Total 2100 500 1600 310 Balance -1320 -400 -820 290 Weight 253 lb 251 lb 257 lb 258 lb 6.108 oz Last Vital Signs Temp Pulse Resp BP Pulse Ox 98.6 F 91 H 26 H 184/99 H 97 07/18/19 10:00 07/18/19 10:00 07/18/19 10:00 07/18/19 10:00 07/18/19 09:00 Active Medications Albuterol Sulfate (Ventolin 0.083% Nebulizer Soln -) 1 amp NEB RQ4H [facility] Last Admin: 07/18/19 07:40 Dose: Not Given Albuterol/Ipratropium (Duoneb -) 1 amp NEB RQID [facility] Last Admin: 07/18/19 07:38 Dose: Not Given Amlodipine Besylate (Norvasc -) 5 mg PO DAILY [facility] Last Admin: 07/18/19 11:02 Dose: 5 mg Chlorhexidine Gluconate (Hibiclens For Decolonization -) 1 applic TP HS [facility] Last Admin: 07/16/19 21:52 Dose: 1 applic Furosemide (Lasix Injection -) 40 mg IVPUSH BID@0600,1400 [facility] Last Admin: 07/18/19 05:51 Dose: 40 mg Ampicillin Sodium/Sulbactam (Sodium 3 gm/ Sodium Chloride) 100 mls @ 200 mls/ hr IVPB BID [facility] Last Admin: 07/18/19 09:52 Dose: 200 mls/hr Levetiracetam (Keppra -) 500 mg PO BID [facility] Last Admin: 07/18/19 09:52 Dose: 500 mg Levothyroxine Sodium (Synthroid -) 25 mcg PO DAILY@0700 [facility] Last Admin: 07/18/19 06:00 Dose: 25 mcg Methylprednisolone Sodium Succinate (Solu-Medrol -) 40 mg IVPUSH Q6H-IV [facility] Last Admin: 07/18/19 09:51 Dose: 40 mg Mupirocin (Bactroban Ointment (For Decolonization) -) 1 applic NS BID [facility] Stop: 07/21/19 21:59 Last Admin: 07/18/19 09:53 Dose: 1 applic Mycophenolate Mofetil (Cellcept -) 500 mg PO DAILY [facility] Last Admin: 07/18/19 09:53 Dose: 500 mg Rosuvastatin Calcium (Crestor -) 10 mg PO HS [facility] Last Admin: 07/17/19 21:17 Dose: 10 mg Tamsulosin HCl (Flomax -) 0.4 mg PO DAILY@0830 [facility] Last Admin: 07/18/19 09:51 Dose: 0.4 mg Gen: Awake and alert, NAD on NC O2 Heart: RRR Lung: Bilateral rales and rhonchi Abd: soft, nontender Ext: + edema Laboratory Results - last 24 hr 07/17/19 07/18/19 07/18/19 05:40 05:50 05:50 WBC 10.2 H RBC 3.88 L Hgb 10.7 L Hct 34.3 L MCV 88.3 MCH 27.7 MCHC 31.4 L RDW 14.7 Plt Count 176 D MPV 7.8 Absolute Neuts (auto) 9.6 H Neutrophils % 94.2 H Neutrophils % (Manual) 91.3 H 94.8 H Band Neutrophils % 3.9 0.0 Lymphocytes % 2.4 L Lymphocytes % (Manual) 1.9 L D 3.1 L D Monocytes % 3.3 L D Monocytes % (Manual) 0 L D 2 L D Eosinophils % 0.0 Eosinophils % (Manual) 0.0 0.0 Basophils % 0.1 Basophils % (Manual) 0.0 0.0 Myelocytes % (Man) 1 D 0 D Promyelocytes % (Man) 0 0 Blast Cells % (Manual) 0 0 Nucleated RBC % 1 H 0 Metamyelocytes 0 0 Hypochromia 0 0 Platelet Estimate Decreased Normal Platelet Comment Present Polychromasia 1+ 0 Poikilocytosis 2+ 0 Anisocytosis 2+ 1+ Microcytosis 1+ 1+ Macrocytosis 1+ 0 Spherocytes 1+ Tear Drop Cells 1+ Ovalocytes 1+ Acanthocytes (Spur) 1+ Sodium 136 Potassium 4.3 Chloride 98 Carbon Dioxide 26 Anion Gap 11 BUN 57.2 H Creatinine 2.8 H Est GFR (CKD-EPI)AfAm 23.46 Est GFR (CKD-EPI)NonAf 20.24 Random Glucose 287 H Calcium 8.2 L Phosphorus 3.9 Magnesium 2.0 Total Bilirubin 0.7 AST 12 L ALT 14 Alkaline Phosphatase 62 Total Protein 6.5 Albumin 2.6 L ASSESSMENT AND PLAN: Acute Hypercapneic Respiratory Failure Altered Mental Status Pneumonia likely Aspiration Acute COPD Exacerbation Acute on Chronic Diastolic Heart Failure Pulmonary HTN Acute on Chronic Renal Failure Atrial Fibrillation +Troponins likely Demand Ischemia CAD HTN Hyperlipidemia CKD BPH Seizure Disorder h/o CVA Anemia - NC O2 as needed - Can attempt HFOT if needed - Lasix IVP - O2 to keep SpO2 >90% - continue antibiotics - f/u final cultures - aspiration precautions - monitor urine output, creatinine - rate control - off anticoagulation due h/o GI bleed - 4W /4S monitoring Dr Contreras
--- NOTE | 2019-07-18 13:23 | PN ---
Progress Note (short form) - Note Progress Note: on high flow oxygen today sleepy Vital Signs Period Temp Pulse Resp BP Sys/Hair Pulse Ox Last 24 Hr 97.7 F-98.6 F 72-95 17-33 124-184/73-100 96-97 cor-rrr lungs decreased bs at bases abd soft,nt ext +edema CBC, BMP 07/18/19 05:50 07/18/19 05:50 Microbiology 07/16/19 11:58 Blood - Peripheral Venous Blood Culture - Preliminary NO GROWTH OBTAINED AFTER 48 HOURS, INCUBATION TO CONTINUE FOR 3 DAYS. 07/16/19 11:46 Blood - Peripheral Venous Blood Culture - Preliminary NO GROWTH OBTAINED AFTER 48 HOURS, INCUBATION TO CONTINUE FOR 3 DAYS. 07/16/19 18:05 Urine For Antigen Detection Legionella Antigen - Final- negative 07/16/19 18:05 Urine For Antigen Detection Streptococcus pneumoniae Antigen (M - Final-negative 07/14/19 22:25 Urine - Urine - Catheterized Urine Culture - Final NO GROWTH OBTAINED cxray unchanged a/p Hypercapneic respiratory failure acute on chronic CHF-on iv lasix suspect copd-former smoker cannot r/o pneumonia- ?aspiration with lethargy and hypothermia overnight ckd/ali continue unasyn adjusted for LETITIA adjust for ckd Problem List - Problems (1) Hypercapnic respiratory failure Code(s): J96.92 - RESPIRATORY FAILURE, UNSPECIFIED WITH HYPERCAPNIA (2) CHF exacerbation Code(s): I50.9 - HEART FAILURE, UNSPECIFIED Qualifiers: Heart failure type: unspecified Qualified Code(s): I50.9 - Heart failure, unspecified (3) Pneumonia Code(s): J18.9 - PNEUMONIA, UNSPECIFIED ORGANISM (4) CKD (chronic kidney disease) Code(s): N18.9 - CHRONIC KIDNEY DISEASE, UNSPECIFIED
--- NOTE | 2019-07-18 13:45 | PN ---
Physical Exam: SUBJECTIVE: Patient seen and examined. Pt continues to be SOB but refuses to keep BIPAP on. OBJECTIVE: Vital Signs Period Temp Pulse Resp BP Sys/Hair Pulse Ox Last 24 Hr 97.7 F-98.6 F 72-95 17-33 124-184/73-100 96-97 GENERAL: The patient is awake, alert, and fully oriented, in no acute distress. HEAD: Normal with no signs of trauma. EYES: PERRL, extraocular movements intact, sclera anicteric, conjunctiva clear. No ptosis. ENT: oropharynx clear without exudates, moist mucous membranes. NECK: Trachea midline, full range of motion, supple. LUNGS: diffuse rale and ronchi HEART: Regular rate and rhythm, S1, S2 without murmur, rub or gallop. ABDOMEN: Soft, nontender, nondistended, normoactive bowel sounds, no guarding, no rebound, no hepatosplenomegaly, no masses. EXTREMITIES: 2+ pulses, warm, well-perfused, b/l LE edema. PSYCH: Normal mood, normal affect. SKIN: Warm, dry Laboratory Results - last 24 hr 07/18/19 07/18/19 05:50 05:50 WBC 10.2 H RBC 3.88 L Hgb 10.7 L Hct 34.3 L MCV 88.3 MCH 27.7 MCHC 31.4 L RDW 14.7 Plt Count 176 D MPV 7.8 Absolute Neuts (auto) 9.6 H Neutrophils % 94.2 H Neutrophils % (Manual) 94.8 H Band Neutrophils % 0.0 Lymphocytes % 2.4 L Lymphocytes % (Manual) 3.1 L D Monocytes % 3.3 L D Monocytes % (Manual) 2 L D Eosinophils % 0.0 Eosinophils % (Manual) 0.0 Basophils % 0.1 Basophils % (Manual) 0.0 Myelocytes % (Man) 0 D Promyelocytes % (Man) 0 Blast Cells % (Manual) 0 Nucleated RBC % 0 Metamyelocytes 0 Hypochromia 0 Platelet Estimate Normal Polychromasia 0 Poikilocytosis 0 Anisocytosis 1+ Microcytosis 1+ Macrocytosis 0 Sodium 136 Potassium 4.3 Chloride 98 Carbon Dioxide 26 Anion Gap 11 BUN 57.2 H Creatinine 2.8 H Est GFR (CKD-EPI)AfAm 23.46 Est GFR (CKD-EPI)NonAf 20.24 Random Glucose 287 H Calcium 8.2 L Phosphorus 3.9 Magnesium 2.0 Total Bilirubin 0.7 AST 12 L ALT 14 Alkaline Phosphatase 62 Total Protein 6.5 Albumin 2.6 L Active Medications Generic Name Dose Route Start Last Admin Trade Name Kelly PRN Reason Stop Dose Admin Albuterol Sulfate 1 amp 07/17/19 07:49 07/18/19 07:40 Ventolin 0.083% Nebulizer Soln - NEB Not Given RQ4H MICHAEL Albuterol/Ipratropium 1 amp 07/16/19 20:00 07/18/19 11:20 Duoneb - NEB 1 amp RQID MICHAEL Administration Amlodipine Besylate 5 mg 07/18/19 10:15 07/18/19 11:02 Norvasc - PO 5 mg DAILY MICHAEL Administration Chlorhexidine Gluconate 1 applic 07/16/19 22:00 07/16/19 21:52 Hibiclens For Decolonization - TP 1 applic HS MICHAEL Administration Furosemide 40 mg 07/17/19 10:54 07/18/19 05:51 Lasix Injection - IVPUSH 40 mg BID@0600,1400 MICHAEL Administration Ampicillin Sodium/Sulbactam 100 mls @ 200 mls/hr 07/16/19 22:00 07/18/19 09: 52 Sodium 3 gm/ Sodium Chloride IVPB 200 mls/hr BID MICHAEL Administration Levetiracetam 500 mg 07/17/19 10:00 07/18/19 09:52 Keppra - PO 500 mg BID MICHAEL Administration Levothyroxine Sodium 25 mcg 07/18/19 07:00 07/18/19 06:00 Synthroid - PO 25 mcg DAILY@0700 MICHAEL Administration Methylprednisolone Sodium Succinate 40 mg 07/17/19 07:44 07/18/19 09:51 Solu-Medrol - IVPUSH 40 mg Q6H-IV MICHAEL Administration Mupirocin 1 applic 07/16/19 22:00 07/18/19 09:53 Bactroban Ointment (For Decolonization) - NS 07/21/19 21:59 1 applic BID MICHAEL Administration Mycophenolate Mofetil 500 mg 07/17/19 10:00 07/18/19 09:53 Cellcept - PO 500 mg DAILY MICHAEL Administration Rosuvastatin Calcium 10 mg 07/17/19 22:00 07/17/19 21:17 Crestor - PO 10 mg HS MICHAEL Administration Tamsulosin HCl 0.4 mg 07/17/19 08:30 07/18/19 09:51 Flomax - PO 0.4 mg DAILY@0830 MICHAEL Administration ASSESSMENT/PLAN: 79 yo M PMH CHF, CKD III, colon cancer s/p partial resection, CAD s/p stent, afib off AC 2/2 GI bleed, CVA with residual right sided weakness, pituitary adenoma s/p resection, hypothyroidism, BPH, seizures, transferred to ICU for altered mental status and hypothermia, found to be hypercapneic. Neuro: - hx CVA w/ residual R sided weakness, seizures - AAOx3 - head CT without acute pathology - continue Keppra CV: - hx CHF, CAD, afib - holding AC due to hx of GI bleed - Lasix increased to 60 BID - Crestor 10 mg HS - amlodipine 5 daily - cardiology consulted, appreciate recs Respiratory: - pt is refusing BIPAP/ placed on high flow 60ml/h with 35% - CXR consistent with fluid overload. no improvement from yesterday - mentating well - decreased to Solumedrol Q8H - Duonebs PRN - Albuterol PRN GI: - hx of GI bleeds - no acute issues - Continue sodium restricted diet - Continue to monitor Renal - CKD stage 3 - hx of BPH - lasix increased to 60 BID - no IVF - monitor urine output - Tamsulosin 0.4 mg PO - nephrology, consulted appreciate recs Endo - hx of hypothyroid, hx of pituatiary adenoma s/p resection - continue levothyroxine ID - Given Zoysn initially - Switched to Unasyn - urine legionella and pneumo negative. 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 Peyton [place] ([phone]) F: Oral E: Monitor CMP N: Sodium restricted Diet DVT: SCDs Lines: Peripheral IVs Dispo: pending transfer to tele Visit type - Emergency Visit Emergency Visit: Yes ED Registration Date: 07/14/19 Care time: The patient presented to the Emergency Department on the above date and was hospitalized for further evaluation of their emergent condition. - New Patient This patient is new to me today: No - Critical Care Critical Care patient: Yes Total Critical Care Time (in minutes): 36 Critical Care Statement: The care of this patient involved high complexity decision making to prevent further life threatening deterioration of the patient 's condition and/or to evaluate & treat vital organ system(s) failure or risk of failure. ATTENDING PHYSICIAN STATEMENT I saw and evaluated the patient. I reviewed the resident's note and discussed the case with the resident. I agree with the resident's findings and plan as documented. SUBJECTIVE: OBJECTIVE: ASSESSMENT AND PLAN:
[2019-07-18] MEDS ORDERED: ALBUTEROL SO4 0.083% IH SOL 2.5 MG/3 ML VIAL.NEB. NEB SCH (14:15)
--- NOTE | 2019-07-18 14:52 | PN ---
Progress Note (short form) - Note Progress Note: s: lethargic but arousable. no cp palps dizzy, sob better no cigs Current Medications Generic Name Dose Route Start Last Admin Trade Name Kelly PRN Reason Stop Dose Admin Albuterol/Ipratropium 1 amp 07/18/19 14:15 Duoneb - NEB PRN MICHAEL Amlodipine Besylate 5 mg 07/18/19 10:15 07/18/19 11:02 Norvasc - PO 5 mg DAILY MICHAEL Administration Chlorhexidine Gluconate 1 applic 07/16/19 22:00 07/16/19 21:52 Hibiclens For Decolonization - TP 1 applic HS MICHAEL Administration Furosemide 60 mg 07/18/19 13:48 07/18/19 14:34 Lasix Injection - IVPUSH 60 mg BID@0600,1400 MICHAEL Administration Ampicillin Sodium/Sulbactam 100 mls @ 200 mls/hr 07/16/19 22:00 07/18/19 09: 52 Sodium 3 gm/ Sodium Chloride IVPB 200 mls/hr BID MICHAEL Administration Levetiracetam 500 mg 07/17/19 10:00 07/18/19 09:52 Keppra - PO 500 mg BID MICHAEL Administration Levothyroxine Sodium 25 mcg 07/18/19 07:00 07/18/19 06:00 Synthroid - PO 25 mcg DAILY@0700 MICHAEL Administration Methylprednisolone Sodium Succinate 40 mg 07/18/19 18:00 Solu-Medrol - IVPUSH Q8H-IV MICHAEL Mupirocin 1 applic 07/16/19 22:00 07/18/19 09:53 Bactroban Ointment (For Decolonization) - NS 07/21/19 21:59 1 applic BID MICHAEL Administration Mycophenolate Mofetil 500 mg 07/17/19 10:00 07/18/19 09:53 Cellcept - PO 500 mg DAILY MICHAEL Administration Rosuvastatin Calcium 10 mg 07/17/19 22:00 07/17/19 21:17 Crestor - PO 10 mg HS MICHAEL Administration Tamsulosin HCl 0.4 mg 07/17/19 08:30 07/18/19 09:51 Flomax - PO 0.4 mg DAILY@0830 MICHAEL Administration Vital Signs Temp 97.8 F 07/18/19 13:55 Pulse 90 07/18/19 13:55 Resp 26 H 07/18/19 13:55 BP 152/103 H 07/18/19 13:55 Pulse Ox 97 07/18/19 09:00 Intake & Output 07/17/19 07/18/19 07/18/19 23:59 11:59 23:59 Intake Total 680 600 240 Output Total 1000 310 500 Balance -320 290 -260 Weight 257 lb 258 lb 6.108 oz Intake: IV 100 Left EJ 100 IVPB 100 100 Oral 480 500 240 Output: Urine 1000 310 500 [place] 1000 310 500 Other: Voiding Method Indwelling Catheter Indwelling Catheter Bowel Movement Yes No # Bowel Movements 1 Height 5 ft 8 in Body Mass Index (BMI) 39.0 Weight Measurement Method Built in [facility] nad, calm +JVD bibasilar rales, poor eff rrr nl s1, s2 2/6 sys murmur at apex. + bs soft nt nd, no hsm ext with 1+ edema diminished dp/pt lethragic no jaundice, diaphoresis Laboratory Last Values WBC 10.2 K/mm3 (4.0-10.0) H 07/18/19 05:50 Corrected WBC (auto) Cancelled 07/14/19 19:10 RBC 3.88 M/mm3 (4.00-5.60) L 07/18/19 05:50 Hgb 10.7 GM/dL (11.7-16.9) L 07/18/19 05:50 Hct 34.3 % (35.4-49) L 07/18/19 05:50 MCV 88.3 fl (80-96) 07/18/19 05:50 MCH 27.7 pg (25.7-33.7) 07/18/19 05:50 MCHC 31.4 g/dl (32.0-35.9) L 07/18/19 05:50 RDW 14.7 % (11.9-15.9) 07/18/19 05:50 Plt Count 176 K/MM3 (134-434) D 07/18/19 05:50 MPV 7.8 fl (7.5-11.1) 07/18/19 05:50 Absolute Neuts (auto) 9.6 K/mm3 (1.5-8.0) H 07/18/19 05:50 Neutrophils % 94.2 % (42.8-82.8) H 07/18/19 05:50 Neutrophils % (Manual) 94.8 % (42.8-82.8) H 07/18/19 05:50 Band Neutrophils % 0.0 % 07/18/19 05:50 Lymphocytes % 2.4 % (8-40) L 07/18/19 05:50 Lymphocytes % (Manual) 3.1 % (8-40) L D 07/18/19 05:50 Monocytes % 3.3 % (3.8-10.2) L D 07/18/19 05:50 Monocytes % (Manual) 2 % (3.8-10.2) L D 07/18/19 05:50 Eosinophils % 0.0 % (0-4.5) 07/18/19 05:50 Eosinophils % (Manual) 0.0 % (0-4.5) 07/18/19 05:50 Basophils % 0.1 % (0-2.0) 07/18/19 05:50 Basophils % (Manual) 0.0 % (0-2.0) 07/18/19 05:50 Myelocytes % (Man) 0 % (0-2) D 07/18/19 05:50 Promyelocytes % (Man) 0 % (0-2) 07/18/19 05:50 Blast Cells % (Manual) 0 % (0-0) 07/18/19 05:50 Nucleated RBC % 0 % (0-0) 07/18/19 05:50 Metamyelocytes 0 % (0-2) 07/18/19 05:50 Hypochromia 0 07/18/19 05:50 Platelet Estimate Normal 07/18/19 05:50 Platelet Comment Present 07/17/19 05:40 Polychromasia 0 07/18/19 05:50 Poikilocytosis 0 07/18/19 05:50 Basophilic Stippling 1+ 07/16/19 06:20 Anisocytosis 1+ 07/18/19 05:50 Microcytosis 1+ 07/18/19 05:50 Macrocytosis 0 07/18/19 05:50 Spherocytes 1+ 07/17/19 05:40 Tear Drop Cells 1+ 07/17/19 05:40 Ovalocytes 1+ 07/17/19 05:40 [place] Cells 1+ 07/16/19 06:20 Acanthocytes (Spur) 1+ 07/17/19 05:40 PT with INR 17.50 SEC (9.7-13.0) H 07/14/19 22:46 INR 1.48 (0.83-1.09) H 07/14/19 22:46 PTT (Actin FS) 39.8 SECONDS (25.2-36.5) H 07/14/19 22:46 Anticoagulation Therapy No Result Required. 07/17/19 08:46 Puncture Site Right radial 07/17/19 08:46 ABG pH 7.32 (7.35-7.45) L 07/17/19 08:46 ABG pCO2 at Pt Temp 59.1 mmHg (35-45) H 07/17/19 08:46 ABG pO2 at Pt Temp 105 mmHg (80-100) H 07/17/19 08:46 ABG HCO3 29.5 mmol/L (22-27) H 07/17/19 08:46 ABG O2 Sat (Measured) 97.8 % (95-98) 07/17/19 08:46 ABG O2 Content 15.3 % vol 07/17/19 08:46 ABG Base Excess 2.7 meq/l (-2-2) H 07/17/19 08:46 Ishan Test Positive 07/17/19 08:46 O2 Delivery Device No Result Required. 07/17/19 08:46 Oxygen Flow Rate 30 07/17/19 08:46 Vent Mode No Result Required. 07/17/19 08:46 Vent Rate No Result Required. 07/17/19 08:46 Mechanical Rate No Result Required. 07/17/19 08:46 Pressure Support Vent No Result Required. 07/17/19 08:46 Sodium 136 mmol/L (136-145) 07/18/19 05:50 Potassium 4.3 mmol/L (3.5-5.1) 07/18/19 05:50 Chloride 98 mmol/L (98-107) 07/18/19 05:50 Carbon Dioxide 26 mmol/L (21-32) 07/18/19 05:50 Anion Gap 11 MMOL/L (8-16) 07/18/19 05:50 BUN 57.2 mg/dL (7-18) H 07/18/19 05:50 Creatinine 2.8 mg/dL (0.55-1.3) H 07/18/19 05:50 Est GFR (CKD-EPI)AfAm 23.46 07/18/19 05:50 Est GFR (CKD-EPI)NonAf 20.24 07/18/19 05:50 Random Glucose 287 mg/dL (74-106) H 07/18/19 05:50 Lactic Acid 0.9 mmol/L (0.4-2.0) 07/16/19 11:46 Calcium 8.2 mg/dL (8.5-10.1) L 07/18/19 05:50 Phosphorus 3.9 mg/dL (2.5-4.9) 07/18/19 05:50 Magnesium 2.0 mg/dL (1.8-2.4) 07/18/19 05:50 Iron 15 ug/dL (50-175) L 07/15/19 12:38 TIBC 286 ug/dL (250-450) 07/15/19 12:38 Iron Saturation 5 % (17.5-39) L 07/15/19 12:38 Unsaturated IBC 271 ug/dL (200-275) 07/15/19 12:38 Total Bilirubin 0.7 mg/dL (0.2-1) 07/18/19 05:50 AST 12 U/L (15-37) L 07/18/19 05:50 ALT 14 U/L (13-61) 07/18/19 05:50 Alkaline Phosphatase 62 U/L (45-117) 07/18/19 05:50 Creatine Kinase 112 U/L (26-308) 07/14/19 19:10 CK-MB (CK-2) 1.7 ng/mL (0.5-3.6) 07/14/19 19:10 Troponin I 0.14 ng/ml (0.00-0.05) H 07/15/19 00:53 B-Natriuretic Peptide 60202.7 pg/ml (5-450) H 07/14/19 19:10 Total Protein 6.5 g/dl (6.4-8.2) 07/18/19 05:50 Albumin 2.6 g/dl (3.4-5.0) L 07/18/19 05:50 Triglycerides 106 mg/dL (0-150) 07/15/19 12:38 Cholesterol 168 mg/dL (50-200) 07/15/19 12:38 Total LDL Cholesterol 97 mg/dL (5-100) 07/15/19 12:38 HDL Cholesterol 60 mg/dL (40-60) 07/15/19 12:38 TSH 0.87 uIU/ml (0.358-3.74) D 07/17/19 05:40 Urine Color Yellow 07/14/19 22:25 Urine Appearance Clear 07/14/19 22:25 Urine pH 5.0 (5.0-8.0) 07/14/19 22:25 Ur Specific [place] 1.014 (1.010-1.035) 07/14/19 22:25 Urine Protein 3+ (NEGATIVE) H 07/14/19 22:25 Urine Glucose (UA) Negative (NEGATIVE) 07/14/19 22:25 Urine Ketones Negative (NEGATIVE) 07/14/19 22:25 Urine Blood 1+ (NEGATIVE) H 07/14/19 22:25 Urine Nitrite Negative (NEGATIVE) 07/14/19 22:25 Urine Bilirubin Negative (NEGATIVE) 07/14/19 22:25 Urine Urobilinogen 1.0 mg/dL (0.2-1.0) 07/14/19 22:25 Ur Leukocyte Esterase Negative (NEGATIVE) 07/14/19 22:25 Urine WBC (Auto) 1 /hpf (0-5) 07/14/19 22:25 Urine RBC (Auto) 5 /hpf (0-4) 07/14/19 22:25 Urine Casts (Auto) 13 /lpf (0-8) 07/14/19 22:25 U Pathogenic Cast Auto none seen /lpf (NEGATIVE) 07/14/19 22:25 U Epithel Cells (Auto) 1.8 /HPF (0-5/HPF) 07/14/19 22:25 Urine Crystals (Auto) Few /hpf 07/14/19 22:25 Urine Bacteria (Auto) 0.2 /hpf (NEGATIVE) 07/14/19 22:25 Blood Type B POSITIVE 07/14/19 19:10 Antibody Screen Negative 07/14/19 19:10 07/20/15 Cardiac cath - Right-Sided Pressures are Increased, Mild Pulmonary Hypertension (pa mean 30), PVRI is mildly increased - 5, PCW is increased- 18, LVEDP is mildly elevated-18, Decreased Cardiac Output ~ 5.6 liter/min Coronary Anatomy : I Vessel CAD (RCA) LV Function/Aorta : Moderate systolic LV Dysfunction ~EF 35% Valves : 1. No Aortic stenosis 2. No Mitral stenosis 07/21/15 TTE - normal left ventricular size overall moderate decreased left ventricular systolic function (diffuse); ejection fraction = 43 % moderate concentric left ventricular hypertrophy abnormal left ventricular diastolic filling pattern [may be due to age or LVH] probable mild right ventricular dilatation probable mild decreased right ventricular function mild to moderate mitral regurgitation mild tricuspid regurgitation mild pulmonary hypertension ascending aorta dilatation technically difficult study Text A Cab precision microbubble contrast used to enhance endocardial border definition mibi 06/2015: lvef 33%, no defects but +tid c/w high risk study mibi 09/2018 diaphragmatic attenuation, nl EF, no ischemia EKG afib, rate controlled, no ischemic changes echo 06/2019 mod conc LVH, low nl LV function, restrictive physiology, mildly dilated RV, mod reduced RV systolic function, LA mod dilated, RA sev dilated, mild MAC, mild MR, RVSP >60 mmHg, severe pulm HTN, mild AR tele: afib rate ok est cct 35 mins ASSESSMENT/PLAN 79yo with chronic diastolic HF, afib, cad s/p remote pci (2010 per pt), htn, hld , ckd, CVA ( residual BL motor weakness), seizure p/w dyspnea, edema hypothermia, alt mental status - manage abx per ID - CT head neg acute on chronic combined systolic and diastolic HF - history of systolic dysfunction with nl LV function on mibi 09/2018 - echo shows low nl LV function and restrictive physiology - continue lasix IV, vol status improving - monitor Cr, lytes, daily weights elevated trop - indeterminate range, flat trend - EKG no ischemic changes, less likely ACS - likely demand in setting of HF exac Afib - not on AC due to history of anemia, GI bleed - rate controlled off av sravanthi blockade - hx of slow ventricular rate on coreg - monitoring on tele CAD hx prior PCI - S/p Cardiac cath 07/20/15 with Non Obstructive CAD, mibi no ischemia 09/2018 - not on antiplatelets given history of anemia - cont statin htn - stable, cont current meds CKD - monitor cr with diuresis, renal following anemia - manage per primary
--- NOTE | 2019-07-18 18:37 | PN ---
Progress Note, Physician History of Present Illness: Pt seen and examine at bedside. He is awake and appears comfortable. He does have SOB with minimal exertion. - Current Medication List Current Medications: Active Medications Albuterol/Ipratropium (Duoneb -) 1 amp NEB PRN [facility] Amlodipine Besylate (Norvasc -) 5 mg PO DAILY [facility] Last Admin: 07/18/19 11:02 Dose: 5 mg Chlorhexidine Gluconate (Hibiclens For Decolonization -) 1 applic TP HS [facility] Last Admin: 07/16/19 21:52 Dose: 1 applic Furosemide (Lasix Injection -) 60 mg IVPUSH BID@0600,1400 [facility] Last Admin: 07/18/19 14:34 Dose: 60 mg Ampicillin Sodium/Sulbactam (Sodium 3 gm/ Sodium Chloride) 100 mls @ 200 mls/ hr IVPB BID [facility] Last Admin: 07/18/19 09:52 Dose: 200 mls/hr Levetiracetam (Keppra -) 500 mg PO BID [facility] Last Admin: 07/18/19 09:52 Dose: 500 mg Levothyroxine Sodium (Synthroid -) 25 mcg PO DAILY@0700 [facility] Last Admin: 07/18/19 06:00 Dose: 25 mcg Methylprednisolone Sodium Succinate (Solu-Medrol -) 40 mg IVPUSH Q8H-IV [facility] Last Admin: 07/18/19 17:22 Dose: 40 mg Mupirocin (Bactroban Ointment (For Decolonization) -) 1 applic NS BID [facility] Stop: 07/21/19 21:59 Last Admin: 07/18/19 09:53 Dose: 1 applic Mycophenolate Mofetil (Cellcept -) 500 mg PO DAILY [facility] Last Admin: 07/18/19 09:53 Dose: 500 mg Rosuvastatin Calcium (Crestor -) 10 mg PO [facility] Last Admin: 07/17/19 21:17 Dose: 10 mg Tamsulosin HCl (Flomax -) 0.4 mg PO DAILY@0830 [facility] Last Admin: 07/18/19 09:51 Dose: 0.4 mg - Objective Vital Signs: Vital Signs Temperature 98 F 07/18/19 18:00 Pulse Rate 93 H 07/18/19 18:00 Respiratory Rate 22 H 07/18/19 18:00 Blood Pressure 163/90 07/18/19 18:00 O2 Sat by Pulse Oximetry (%) 97 07/18/19 09:00 Eyes: Yes: Other (periorbital edema) Cardiovascular: Yes: S1, S2 Respiratory: Yes: On Nasal O2, Rhonchi Gastrointestinal: Yes: Soft Genitourinary: Yes: Incontinence Musculoskeletal: Yes: Muscle Weakness Edema: Yes Edema: LLE: 1+, RLE: 1+ Neurological: Yes: Confusion Labs: CBC, BMP 07/18/19 05:50 07/18/19 05:50 INR, PTT INR 1.48 (0.83-1.09) H 07/14/19 22:46 - ....Imaging Chest X-ray: Report Reviewed Problem List - Problems (1) Altered mental state Code(s): R41.82 - ALTERED MENTAL STATUS, UNSPECIFIED (2) CHF exacerbation Code(s): I50.9 - HEART FAILURE, UNSPECIFIED Qualifiers: Heart failure type: unspecified Qualified Code(s): I50.9 - Heart failure, unspecified (3) CHF exacerbation Code(s): I50.9 - HEART FAILURE, UNSPECIFIED (4) CKD (chronic kidney disease) Code(s): N18.9 - CHRONIC KIDNEY DISEASE, UNSPECIFIED Assessment/Plan Current Medications Generic Name Dose Route Start Last Admin Trade Name Freq PRN Reason Stop Dose Admin Albuterol/Ipratropium 1 amp 07/18/19 14:15 Duoneb - NEB PRN MICHAEL Amlodipine Besylate 5 mg 07/18/19 10:15 07/18/19 11:02 Norvasc - PO 5 mg DAILY MICHAEL Administration Chlorhexidine Gluconate 1 applic 07/16/19 22:00 07/16/19 21:52 Hibiclens For Decolonization - TP 1 applic HS MICHAEL Administration Furosemide 60 mg 07/18/19 13:48 07/18/19 14:34 Lasix Injection - IVPUSH 60 mg BID@0600,1400 MICHAEL Administration Ampicillin Sodium/Sulbactam 100 mls @ 200 mls/hr 07/16/19 22:00 07/18/19 09: 52 Sodium 3 gm/ Sodium Chloride IVPB 200 mls/hr BID MICHAEL Administration Levetiracetam 500 mg 07/17/19 10:00 07/18/19 09:52 Keppra - PO 500 mg BID MICHAEL Administration Levothyroxine Sodium 25 mcg 07/18/19 07:00 07/18/19 06:00 Synthroid - PO 25 mcg DAILY@0700 MICHAEL Administration Methylprednisolone Sodium Succinate 40 mg 07/18/19 18:00 07/18/19 17:22 Solu-Medrol - IVPUSH 40 mg Q8H-IV MICHAEL Administration Mupirocin 1 applic 07/16/19 22:00 07/18/19 09:53 Bactroban Ointment (For Decolonization) - NS 07/21/19 21:59 1 applic BID MICHAEL Administration Mycophenolate Mofetil 500 mg 07/17/19 10:00 07/18/19 09:53 Cellcept - PO 500 mg DAILY MICHAEL Administration Rosuvastatin Calcium 10 mg 07/17/19 22:00 07/17/19 21:17 Crestor - PO 10 mg HS MICHAEL Administration Tamsulosin HCl 0.4 mg 07/17/19 08:30 07/18/19 09:51 Flomax - PO 0.4 mg DAILY@0830 MICHAEL Administration Impression 1. CKD 2. CHF 3. BPH 4. a. fib 5. CAD 6. epilepsy 7. proteinuria 8. anemia 9. acute resp failure 10. hypernatremia Plan - cont lasix, agree with higher dose - repeat labs in am - he remains volume overloaded - keep net negative - discussed with ICU team - monitor hg Dr Titpon
[2019-07-18] MEDS: ROSUVASTATIN CA 10 MG TABLET (FP) PO SCH (20:59)
[2019-07-18] MEDS: CHLORHEXIDINE GLUCONATE 4% CLEANSER FOR DECOLONIZATION TP SCH (21:02)
[2019-07-19] MEDS: methylPREDNISolone NA SUCC 40 MG/1 ML VIAL IVPUSH SCH ×3 (01:01→22:39)
[2019-07-19] MEDS: FUROSEMIDE 40 MG/4 ML INJECTABLE VIAL IVPUSH SCH ×2 (06:19→14:11)
[2019-07-19] MEDS: LEVOTHYROXINE NA 25 MCG TABLET (FP) PO SCH (06:20)
[2019-07-19 08:07] LABS: BASO % 0.1 % (0-2.0); HEMATOCRIT 32.5 % (35.4-49); HEMOGLOBIN 10.3 GM/dL (11.7-16.9); LYMPH % 2.1 % (8-40); MCH 27.7 pg (25.7-33.7); MCHC 31.8 g/dl (32.0-35.9); MEAN CELL VOLUME 87.3 fl (80-96); MEAN PLT VOLUME 7.2 fl (7.5-11.1); MONO % 1.8 % (3.8-10.2); PLATELET COUNT 164 K/MM3 (134-434); RBC 3.73 M/mm3 (4.00-5.60); RDW 14.9 % (11.9-15.9); WHITE BLOOD COUNT 9.2 K/mm3 (4.0-10.0)
[2019-07-19 08:46] LABS: ALBUMIN 2.6 g/dl (3.4-5.0); BILIRUBIN,TOTAL 0.9 mg/dL (0.2-1); BLOOD UREA NITROGEN 59.9 mg/dL (7-18); CALCIUM 7.9 mg/dL (8.5-10.1); CREATININE 2.4 mg/dL (0.55-1.3); MAGNESIUM 2.1 mg/dL (1.8-2.4); PHOSPHOROUS 3.6 mg/dL (2.5-4.9); POTASSIUM 4.2 mmol/L (3.5-5.1); TOT PROT 6.4 g/dl (6.4-8.2)
[2019-07-19] MEDS: ALBUTEROL SO4 2.5/IPRATROPIUM 0.5 INH SOL 3 ML VIAL.NEB. NEB SCH ×4 (08:55→20:30)
--- NOTE | 2019-07-19 09:29 | PN ---
Progress Note, Physician Chief Complaint: alt MS History of Present Illness: nasal NIPPV in. pt sleeping, not rousable ex cigs - Current Medication List Current Medications: Active Medications Albuterol/Ipratropium (Duoneb -) [address] [facility] Amlodipine Besylate (Norvasc -) [address] [facility] Furosemide (Lasix Injection -) 60 mg IVPUSH BID@0600,1400 [facility] Last Admin: 07/19/19 06:19 Dose: 60 mg Ampicillin Sodium/Sulbactam (Sodium 3 gm/ Sodium Chloride) 100 mls @ 200 mls/ hr IVPB BID [facility] Levetiracetam (Keppra -) [address] [facility] Levothyroxine Sodium (Synthroid -) 25 mcg PO DAILY@0700 [facility] Methylprednisolone Sodium Succinate (Solu-Medrol -) 40 [address] IVPUSH Q8H-IV [facility] Last Admin: 07/19/19 01:01 Dose: 40 mg Mycophenolate Mofetil (Cellcept -) [address] [facility] Rosuvastatin Calcium (Crestor -) [address] [facility] Tamsulosin HCl (Flomax -) 0.4 mg PO DAILY@0830 [facility] - Objective Vital Signs: Vital Signs Temperature 98.2 F 07/19/19 06:00 Pulse Rate 88 07/19/19 06:00 Respiratory Rate 22 H 07/19/19 08:45 Blood Pressure 150/90 07/19/19 06:00 O2 Sat by Pulse Oximetry (%) 98 07/19/19 08:45 Constitutional: Yes: Well Nourished, No Distress, Calm Eyes: No: Sclera Icterus HENT: No: Nasal Congestion Cardiovascular: Yes: Regular Rate and Rhythm, S1, S2, Other (PMI non diplaced). No: JVD (tds exam, pt positoining), Gallop, Murmur Respiratory: Yes: Regular, CTA Bilaterally (anteriorly (not deep breaths, asleep )). No: Accessory Muscle Use, Rales, Wheezes Gastrointestinal: Yes: Normal Bowel Sounds, Soft. No: Tenderness Musculoskeletal: Yes: Other (No kyphosis) Extremities: No: Cold, Cyanosis Edema: No Integumentary: No: Jaundice Neurological: No: Alert, Seizure Psychiatric: No: Agitated Labs: CBC, BMP 07/19/19 06:45 07/19/19 06:45 INR, PTT INR 1.48 (0.83-1.09) H 07/14/19 22:46 Assessment/Plan 07/2015 Cardiac cath - Right-Sided Pressures are Increased, Mild Pulmonary Hypertension (pa mean 30), PVRI is mildly increased - 5, PCW is increased- 18, Decreased Cardiac Output ~5.6 liter/min Coronary Anatomy : I Vessel CAD (RCA) LV Function/Aorta : Moderate systolic LV Dysfunction ~EF 35% 07/2015 TTE - normal left ventricular size overall moderate decreased left ventricular systolic function (diffuse); ejection fraction = 43 % moderate concentric left ventricular hypertrophy abnormal left ventricular diastolic filling pattern [may be due to age or LVH] probable mild right ventricular dilatation probable mild decreased right ventricular function mild to moderate mitral regurgitation mild tricuspid regurgitation mild pulmonary hypertension ascending aorta dilatation technically difficult study Definity precision microbubble contrast used to enhance endocardial border definition echo 06/2019: mod conc LVH, low nl LV function, restrictive physiology. mildly dilated RV, mod reduced RV systolic function. LA mod dilated, RA sev dilated. mild AI/MR, RVSP >60 mmHg mibi 09/2018 diaphragmatic attenuation, nl EF, no ischemia EKG: afib, rate controlled, no ischemic changes CXR 07/16, 07/18: no vasc redistrib, diffuse hazy infiltrates bilat lower lung tang, bases cut off--new vs 07/14 (no progressive changes on last cxr) tele: AF, HRs controlled. artifact ASSESSMENT/PLAN 79yo with chronic diastolic HF, afib, cad s/p remote pci (2010 per pt), htn, hld , ckd, CVA ( residual BL motor weakness), seizure p/w dyspnea, edema hypothermia, alt mental status, ? PNA - ? source--possible PNA per ID. CXR worsened since admission, hazy bilat infiltrates ? CHF vs PNA - f/u CXRs with diuresis--if infiltrates persist, rec CT chest if pt can cooperate sufficiently - CT head neg acute on chronic combined systolic and diastolic HF - history of systolic dysfunction with nl LV function on mibi 09/2018 - echo shows low nl LV function and restrictive physiology - CXR ? congestion appearance (vs PNA)--monitor CXRs with diuresis, consider CT chest as above - lasix 20 po bid at home--receiving 60 iv bid here. renal fxn stable. no standing weights (alt MS). LE edema resolved (JVD exam prohibitively TDS at present). same lasix fo rnow CKD - last creat here 2.0 (03/06) - renal fxn slightly worse here, stable with diuresis elevated trop - indeterminate range, flat trend - EKG no ischemic changes, less likely ACS - likely demand in setting of HF exac Afib - not on AC due to history of anemia, GI bleed - rate controlled off av sravanthi blockade - hx of slow ventricular rate on coreg - same plan CAD hx prior PCI - S/p Cardiac cath 07/20/15 with Non Obstructive CAD, mibi no ischemia 09/2018 - not on antiplatelets given history of anemia - cont statin - no concern of active ischemia htn - bp suboptimal, reasonable - target <130/80 - volume overloaded--observe trend with diuresis - cont present meds anemia - manage per primary D/C TELE
[2019-07-19] MEDS ORDERED: MUPIROCIN 2% TOPICAL OINTMENT FOR DECOLONIZATION NS SCH (10:00)
[2019-07-19] MEDS: TAMSULOSIN HCL 0.4 MG CAP PO SCH (10:13)
[2019-07-19] MEDS: levETIRAcetam 500 MG TABLET (FP) PO SCH ×2 (10:13→22:39)
[2019-07-19] MEDS: amLODIPine BESYLATE 5 MG TABLET (FP) PO SCH (10:13)
[2019-07-19] MEDS: MYCOPHENOLATE MOFETIL 500 MG TABLET PO SCH (10:14)
[2019-07-19] MEDS: AMPICILLIN NA/SULBACTAM NA 3 GM in SODIUM CHLORIDE 100 ML IVPB SCH ×2 (11:49→23:37)
[2019-07-19 11:51] LABS: ANISOCYTOSIS 1+; MACROCYTOSIS 0; OVALOCYTE 1+; PLATELET ESTIMATE DECREASED; TEAR DROP CELLS 1+
--- NOTE | 2019-07-19 12:25 | PN ---
Progress Note (short form) - Note Progress Note: Renal follow up for CKD/LETITIA/Fluid overload Coverage for Dr. Tipton Seen and examined at the bedside on high flow O2 making urine denies overt sob, chest pain, fever, chills Vital Signs Temperature 98.2 F 07/19/19 06:00 Pulse Rate 88 07/19/19 06:00 Respiratory Rate 22 H 07/19/19 08:45 Blood Pressure 150/90 07/19/19 06:00 O2 Sat by Pulse Oximetry (%) 98 07/19/19 08:45 Intake & Output 07/16/19 07/17/19 07/18/19 07/19/19 23:59 23:59 23:59 23:59 Intake Total 179 767 6723 160 Output Total 500 1600 810 Balance -400 -820 750 160 Weight 113.852 kg 116.573 kg 117.2 kg 119.658 kg NAD awake and alert on High flow O2 RRR Dec BS, no wheeze or rales no LE edema CBC, BMP 07/19/19 06:45 07/19/19 06:45 Current Medications Albuterol/Ipratropium (Duoneb -) 1 amp NEB RQID [facility] Last Admin: 07/19/19 11:50 Dose: 1 amp Amlodipine Besylate (Norvasc -) 5 mg PO DAILY [facility] Last Admin: 07/19/19 10:13 Dose: 5 mg Furosemide (Lasix Injection -) 60 mg IVPUSH BID@0600,1400 [facility] Last Admin: 07/19/19 06:19 Dose: 60 mg Ampicillin Sodium/Sulbactam (Sodium 3 gm/ Sodium Chloride) 100 mls @ 200 mls/ hr IVPB BID [facility] Last Admin: 07/19/19 11:49 Dose: 200 mls/hr Levetiracetam (Keppra -) 500 mg PO BID [facility] Last Admin: 07/19/19 10:13 Dose: 500 mg Levothyroxine Sodium (Synthroid -) 25 mcg PO DAILY@0700 [facility] Methylprednisolone Sodium Succinate (Solu-Medrol -) 40 mg IVPUSH Q8H-IV [facility] Last Admin: 07/19/19 10:13 Dose: 40 mg Mycophenolate Mofetil (Cellcept -) 500 mg PO DAILY [facility] Last Admin: 07/19/19 10:14 Dose: 500 mg Rosuvastatin Calcium (Crestor -) 10 mg PO HS [facility] Tamsulosin HCl (Flomax -) 0.4 mg PO DAILY@0830 [facility] Last Admin: 07/19/19 10:13 Dose: 0.4 mg Impression 1. CKD 2. CHF 3. BPH 4. a. fib 5. CAD 6. epilepsy 7. proteinuria 8. anemia 9. acute resp failure 10. hypernatremia Plan Renal function stable Baseline Cr ~2 Continue IV Lasix 60mg IV BID can consider titration of dose if weights remains unchanged trend renal function and electrolytes daily Pato Caraballo DO
--- NOTE | 2019-07-19 12:56 | PN ---
Progress Note, Physician Chief Complaint: SOB Acute on Chronic CHF Exacerbation CKD History of Present Illness: Previous notes and events reviewed awake and alert NAD on HFOT denies chest pain or palpitations denies SOB but states having a dry cough - Current Medication List Current Medications: Active Medications Albuterol/Ipratropium (Duoneb -) 1 amp NEB RQID [facility] Last Admin: 07/19/19 11:50 Dose: 1 amp Amlodipine Besylate (Norvasc -) 5 mg PO DAILY [facility] Last Admin: 07/19/19 10:13 Dose: 5 mg Furosemide (Lasix Injection -) 60 mg IVPUSH BID@0600,1400 [facility] Last Admin: 07/19/19 06:19 Dose: 60 mg Ampicillin Sodium/Sulbactam (Sodium 3 gm/ Sodium Chloride) 100 mls @ 200 mls/ hr IVPB BID [facility] Last Admin: 07/19/19 11:49 Dose: 200 mls/hr Levetiracetam (Keppra -) 500 mg PO BID [facility] Last Admin: 07/19/19 10:13 Dose: 500 mg Levothyroxine Sodium (Synthroid -) 25 mcg PO DAILY@0700 [facility] Methylprednisolone Sodium Succinate (Solu-Medrol -) 40 mg IVPUSH Q8H-IV [facility] Last Admin: 07/19/19 10:13 Dose: 40 mg Mycophenolate Mofetil (Cellcept -) 500 mg PO DAILY [facility] Last Admin: 07/19/19 10:14 Dose: 500 mg Rosuvastatin Calcium (Crestor -) 10 mg PO HS [facility] Tamsulosin HCl (Flomax -) 0.4 mg PO DAILY@0830 [facility] Last Admin: 07/19/19 10:13 Dose: 0.4 mg - Objective Vital Signs: Vital Signs Temperature 98.2 F 07/19/19 06:00 Pulse Rate 88 07/19/19 06:00 Respiratory Rate 22 H 07/19/19 08:45 Blood Pressure 150/90 07/19/19 06:00 O2 Sat by Pulse Oximetry (%) 98 07/19/19 08:45 Constitutional: Yes: No Distress, Calm, Obese Eyes: Yes: Conjunctiva Clear HENT: Yes: Atraumatic Cardiovascular: Yes: Regular Rate and Rhythm Respiratory: Yes: Regular, Cough, Diminished, Other (HFOT) Gastrointestinal: Yes: Normal Bowel Sounds, Soft, Abdomen, Obese Genitourinary: Yes: [place] Present Musculoskeletal: Yes: Muscle Weakness Extremities: Yes: WNL Edema: No Neurological: Yes: Alert, Oriented, Pre-Existing Deficit Psychiatric: Yes: Alert, Oriented Labs: CBC, BMP 07/19/19 06:45 07/19/19 06:45 INR, PTT INR 1.48 (0.83-1.09) H 07/14/19 22:46 Microbiology 07/16/19 11:46 Blood - Peripheral Venous Blood Culture - Preliminary NO GROWTH OBTAINED AFTER 72 HOURS, INCUBATION TO CONTINUE FOR 2 DAYS. 07/16/19 11:58 Blood - Peripheral Venous Blood Culture - Preliminary NO GROWTH OBTAINED AFTER 72 HOURS, INCUBATION TO CONTINUE FOR 2 DAYS. 07/16/19 18:05 Urine For Antigen Detection Legionella Antigen - Final 07/16/19 18:05 Urine For Antigen Detection Streptococcus pneumoniae Antigen (M - Final 07/14/19 22:25 Urine - Urine - Catheterized Urine Culture - Final NO GROWTH OBTAINED Problem List - Problems (1) Altered mental state Assessment/Plan: -Resolved -Head CT scan shows no significant interval change -07/20 to infection Code(s): R41.82 - ALTERED MENTAL STATUS, UNSPECIFIED (2) CHF exacerbation Assessment/Plan: -Furosemide BID -BNP 45636.7 -Cardiology and Pulmonary on board -CXR shows atelectasis or scarring in LLL, atelectasis or infiltrate at medial right base -Echo 50-55% -1 L fluid restriction -daily weights -strict I&O Code(s): I50.9 - HEART FAILURE, UNSPECIFIED Qualifiers: Heart failure type: unspecified Qualified Code(s): I50.9 - Heart failure, unspecified (3) Pneumonia Assessment/Plan: -Pulmonary on board -CXR shows atelectasis or scarring in LLL, atelectasis or infiltrate at medial right base -Bronchodilators -IV Medrol -keep SpO2 >90% -O2 via NC, HFOT -Unasyn -no leukocytosis -afebrile Code(s): J18.9 - PNEUMONIA, UNSPECIFIED ORGANISM (4) Afib Assessment/Plan: -Cardiology on board -no AC due to history of anemia or gi bleed Code(s): I48.91 - UNSPECIFIED ATRIAL FIBRILLATION Qualifiers: Atrial fibrillation type: paroxysmal Qualified Code(s): I48.0 - Paroxysmal atrial fibrillation (5) BPH (benign prostatic hyperplasia) Assessment/Plan: -Tamsulosin Code(s): N40.0 - BENIGN PROSTATIC HYPERPLASIA WITHOUT LOWER URINRY TRACT SYMP (6) CAD (coronary artery disease) Assessment/Plan: -Crestor Code(s): I25.10 - ATHSCL HEART DISEASE OF [place] CORONARY ARTERY W/O ANG PCTRS (7) CKD (chronic kidney disease) Assessment/Plan: -BUN/Cr 59.9/2.4 -renal on board -monitor renal function daily Code(s): N18.9 - CHRONIC KIDNEY DISEASE, UNSPECIFIED (8) HTN (hypertension) Assessment/Plan: -Furosemide -low Na diet Code(s): I10 - ESSENTIAL (PRIMARY) HYPERTENSION (9) Hyperlipidemia Assessment/Plan: -crestor Code(s): E78.5 - HYPERLIPIDEMIA, UNSPECIFIED (10) Hypothyroid Assessment/Plan: -Levothyroxine Code(s): E03.9 - HYPOTHYROIDISM, UNSPECIFIED (11) Seizure Code(s): R56.9 - UNSPECIFIED CONVULSIONS Assessment/Plan see problem list scd
--- NOTE | 2019-07-19 14:47 | PN ---
Progress Note (short form) - Note Progress Note: PULMONARY Denies shortness of breath, chest pain. On HFOT. Vital Signs Period Temp Pulse Resp BP Sys/Hair Pulse Ox Last 24 Hr 98 F-98.3 F 74-93 20-23 137-164/90-99 97-98 Gen: NAD at rest Heart: RRR Lung: decreased breath sounds at the bases Abd: soft, nontender Ext: no edema CBC, BMP 07/19/19 06:45 07/19/19 06:45 Active Medications Albuterol/Ipratropium (Duoneb -) 1 amp NEB RQID [facility] Last Admin: 07/19/19 11:50 Dose: 1 amp Amlodipine Besylate (Norvasc -) 5 mg PO DAILY [facility] Last Admin: 07/19/19 10:13 Dose: 5 mg Furosemide (Lasix Injection -) 60 mg IVPUSH BID@0600,1400 [facility] Last Admin: 07/19/19 14:11 Dose: 60 mg Ampicillin Sodium/Sulbactam (Sodium 3 gm/ Sodium Chloride) 100 mls @ 200 mls/ hr IVPB BID [facility] Last Admin: 07/19/19 11:49 Dose: 200 mls/hr Levetiracetam (Keppra -) 500 mg PO BID [facility] Last Admin: 07/19/19 10:13 Dose: 500 mg Levothyroxine Sodium (Synthroid -) 25 mcg PO DAILY@0700 [facility] Methylprednisolone Sodium Succinate (Solu-Medrol -) 40 mg IVPUSH Q8H-IV [facility] Last Admin: 07/19/19 10:13 Dose: 40 mg Mycophenolate Mofetil (Cellcept -) 500 mg PO DAILY [facility] Last Admin: 07/19/19 10:14 Dose: 500 mg Rosuvastatin Calcium (Crestor -) 10 mg PO HS [facility] Tamsulosin HCl (Flomax -) 0.4 mg PO DAILY@0830 [facility] Last Admin: 07/19/19 10:13 Dose: 0.4 mg A/P Acute Hypercapneic Respiratory Failure improving Altered Mental Status improving Pneumonia likely Aspiration Acute COPD Exacerbation Acute on Chronic Diastolic Heart Failure Pulmonary HTN Acute on Chronic Renal Failure Atrial Fibrillation +Troponins likely Demand Ischemia CAD HTN Hyperlipidemia CKD BPH Seizure Disorder h/o CVA Anemia - O2 to keep SpO2 >90% - can transition to nasal cannula - continue antibiotics - continue lasix - monitor urine output, creatinine - rate control - off anticoagulation due h/o GI bleed
--- NOTE | 2019-07-19 17:56 | PN ---
Progress Note, Physician History of Present Illness: AWAKE IN BED ON HIGH FLOW O2 BREATHING NON-LABORED NO COMPLAINTS OF DYSNEA NO FEVER/ CHILLS - Current Medication List Current Medications: Active Medications Albuterol/Ipratropium (Duoneb -) 1 amp NEB RQID [facility] Last Admin: 07/19/19 15:45 Dose: 1 amp Amlodipine Besylate (Norvasc -) 5 mg PO DAILY [facility] Last Admin: 07/19/19 10:13 Dose: 5 mg Furosemide (Lasix Injection -) 60 mg IVPUSH BID@0600,1400 [facility] Last Admin: 07/19/19 14:11 Dose: 60 mg Ampicillin Sodium/Sulbactam (Sodium 3 gm/ Sodium Chloride) 100 mls @ 200 mls/ hr IVPB BID [facility] Last Admin: 07/19/19 11:49 Dose: 200 mls/hr Levetiracetam (Keppra -) 500 mg PO BID [facility] Last Admin: 07/19/19 10:13 Dose: 500 mg Levothyroxine Sodium (Synthroid -) 25 mcg PO DAILY@0700 [facility] Methylprednisolone Sodium Succinate (Solu-Medrol -) 40 mg IVPUSH BID [facility] Mycophenolate Mofetil (Cellcept -) 500 mg PO DAILY [facility] Last Admin: 07/19/19 10:14 Dose: 500 mg Rosuvastatin Calcium (Crestor -) 10 mg PO HS [facility] Tamsulosin HCl (Flomax -) 0.4 mg PO DAILY@0830 [facility] Last Admin: 07/19/19 10:13 Dose: 0.4 mg - Objective Vital Signs: Vital Signs Temperature 98.6 F 07/19/19 14:10 Pulse Rate 86 07/19/19 14:10 Respiratory Rate 22 H 07/19/19 14:10 Blood Pressure 145/70 07/19/19 14:10 O2 Sat by Pulse Oximetry (%) 98 07/19/19 08:45 Constitutional: Yes: Obese Cardiovascular: Yes: Regular Rate and Rhythm, S1, S2 Respiratory: Yes: Diminished Gastrointestinal: Yes: Normal Bowel Sounds, Soft Labs: CBC, BMP 07/19/19 06:45 07/19/19 06:45 INR, PTT INR 1.48 (0.83-1.09) H 07/14/19 22:46 Assessment/Plan EXACERBATION COPD S/P RESP FAILURE ? PNEUMONIA AZOTEMIA CONTINUE UNASYN
[2019-07-19] MEDS ORDERED: CHLORHEXIDINE GLUCONATE 4% CLEANSER FOR DECOLONIZATION TP SCH (22:00)
[2019-07-19] MEDS: ROSUVASTATIN CA 10 MG TABLET (FP) PO SCH (22:39)
[2019-07-20] MEDS: FUROSEMIDE 40 MG/4 ML INJECTABLE VIAL IVPUSH SCH ×2 (06:31→15:08)
[2019-07-20] MEDS: LEVOTHYROXINE NA 25 MCG TABLET (FP) PO SCH (06:31)
[2019-07-20 07:39] LABS: HEMATOCRIT 33.2 % (35.4-49); HEMOGLOBIN 10.4 GM/dL (11.7-16.9); MCH 27.8 pg (25.7-33.7); MCHC 31.4 g/dl (32.0-35.9); MEAN CELL VOLUME 88.6 fl (80-96); PLATELET COUNT 152 K/MM3 (134-434); RBC 3.74 M/mm3 (4.00-5.60); RDW 15.1 % (11.9-15.9); WHITE BLOOD COUNT 9.1 K/mm3 (4.0-10.0)
[2019-07-20 08:27] LABS: ALBUMIN 2.5 g/dl (3.4-5.0); BILIRUBIN,TOTAL 0.6 mg/dL (0.2-1); CREATININE 2.3 mg/dL (0.55-1.3); MAGNESIUM 2.1 mg/dL (1.8-2.4); POTASSIUM 4.3 mmol/L (3.5-5.1); TOT PROT 6.3 g/dl (6.4-8.2)
--- NOTE | 2019-07-20 08:36 | PN ---
Progress Note, Physician Chief Complaint: alt MS History of Present Illness: somnolent, as yesterday--minimally responds to voice calm - Current Medication List Current Medications: Active Medications Albuterol/Ipratropium (Duoneb -) 1 amp NEB RQID [facility] Last Admin: 07/19/19 20:30 Dose: 1 amp Amlodipine Besylate (Norvasc -) 5 mg PO DAILY [facility] Last Admin: 07/19/19 10:13 Dose: 5 mg Furosemide (Lasix Injection -) 60 mg IVPUSH BID@0600,1400 [facility] Last Admin: 07/20/19 06:31 Dose: 60 mg Ampicillin Sodium/Sulbactam (Sodium 3 gm/ Sodium Chloride) 100 mls @ 200 mls/ hr IVPB BID [facility] Last Admin: 07/19/19 23:37 Dose: 200 mls/hr Levetiracetam (Keppra -) 500 mg PO BID [facility] Last Admin: 07/19/19 22:39 Dose: 500 mg Levothyroxine Sodium (Synthroid -) 25 mcg PO DAILY@0700 [facility] Last Admin: 07/20/19 06:31 Dose: 25 mcg Methylprednisolone Sodium Succinate (Solu-Medrol -) 40 mg IVPUSH BID [facility] Last Admin: 07/19/19 22:39 Dose: 40 mg Mycophenolate Mofetil (Cellcept -) 500 mg PO DAILY [facility] Last Admin: 07/19/19 10:14 Dose: 500 mg Rosuvastatin Calcium (Crestor -) 10 mg PO HS [facility] Last Admin: 07/19/19 22:39 Dose: 10 mg Tamsulosin HCl (Flomax -) 0.4 mg PO DAILY@0830 [facility] Last Admin: 07/19/19 10:13 Dose: 0.4 mg - Objective Vital Signs: Vital Signs Temperature 98.6 F 07/20/19 06:00 Pulse Rate 104 H 07/20/19 06:00 Respiratory Rate 18 07/20/19 06:00 Blood Pressure 139/95 07/20/19 06:00 O2 Sat by Pulse Oximetry (%) 96 07/19/19 23:00 Constitutional: Yes: No Distress, Calm, Obese Eyes: No: Sclera Icterus HENT: No: Nasal Congestion Cardiovascular: Yes: Pulse Irregular, JVD (to jaw), S1, S2, Other (PMI non diplaced). No: Gallop, Murmur Respiratory: Yes: CTA Bilaterally (not taking deep breaths). No: Accessory Muscle Use Gastrointestinal: Yes: Normal Bowel Sounds, Soft. No: Tenderness Musculoskeletal: Yes: Other (No kyphosis) Extremities: No: Cold, Cyanosis Edema: No Integumentary: No: Jaundice Neurological: No: Alert, Oriented (x3) Psychiatric: No: Agitated Labs: CBC, BMP 07/20/19 07:05 07/20/19 07:05 INR, PTT INR 1.48 (0.83-1.09) H 07/14/19 22:46 Assessment/Plan 07/2015 Cardiac cath - Right-Sided Pressures are Increased, Mild Pulmonary Hypertension (pa mean 30), PVRI is mildly increased - 5, PCW is increased- 18, Decreased Cardiac Output ~5.6 liter/min Coronary Anatomy : I Vessel CAD (RCA) LV Function/Aorta : Moderate systolic LV Dysfunction ~EF 35% 07/2015 TTE - normal left ventricular size overall moderate decreased left ventricular systolic function (diffuse); ejection fraction = 43 % moderate concentric left ventricular hypertrophy abnormal left ventricular diastolic filling pattern [may be due to age or LVH] probable mild right ventricular dilatation probable mild decreased right ventricular function mild to moderate mitral regurgitation mild tricuspid regurgitation mild pulmonary hypertension ascending aorta dilatation technically difficult study Definity precision microbubble contrast used to enhance endocardial border definition echo 06/2019: mod conc LVH, low nl LV function, restrictive physiology. mildly dilated RV, mod reduced RV systolic function. LA mod dilated, RA sev dilated. mild AI/MR, RVSP >60 mmHg mibi 09/2018 diaphragmatic attenuation, nl EF, no ischemia EKG: afib, rate controlled, no ischemic changes CXR 07/16, 07/18: no vasc redistrib, diffuse hazy infiltrates bilat lower lung tang, bases cut off--new vs 07/14 (no progressive changes on last cxr) tele: AF, HRs controlled. ASSESSMENT/PLAN 79yo with chronic diastolic HF, afib, cad s/p remote pci (2010 per pt), htn, hld , ckd, CVA ( residual BL motor weakness), seizure p/w dyspnea, edema hypothermia, alt mental status, ? PNA - ? source--possible PNA per ID. CXR worsened since admission, hazy bilat infiltrates ? CHF vs PNA - f/u CXRs with diuresis--if infiltrates persist, rec CT chest if pt can cooperate sufficiently - CT head neg acute on chronic combined systolic and diastolic HF, severe pulm HTN - history of systolic dysfunction with nl LV function on mibi 09/2018 - echo shows low nl LV function and restrictive physiology - CXR ? congestion appearance (vs PNA)--monitor CXRs with diuresis, consider CT chest as above - lasix 20 po bid at home--receiving 60 iv bid here. no standing weights (alt MS ). LE edema resolved, CXR remains congested, JVD remains up (to jaw). creatinine improving (suspect cardiorenal syndrome). BUN rising = ? steroids. same lasix rx. LETITIA on CKD - last creat here 2.0 (03/06) - renal fxn slightly worse here, creat improving with diuresis. likely cardiorenal syndrome component elevated trop - indeterminate range, flat trend - EKG no ischemic changes, less likely ACS - likely demand in setting of HF exac Afib - not on AC due to history of anemia, GI bleed - rate controlled off av sravanthi blockade - hx of slow ventricular rate on coreg - same plan CAD hx prior PCI - S/p Cardiac cath 07/20/15 with Non Obstructive CAD, mibi no ischemia 09/2018 - not on antiplatelets given history of anemia - cont statin - no concern of active ischemia htn - bp suboptimal, reasonable - target <130/80 - volume overloaded--improving with diuresis - cont present meds anemia - manage per primary D/C TELE
[2019-07-20] MEDS: ALBUTEROL SO4 2.5/IPRATROPIUM 0.5 INH SOL 3 ML VIAL.NEB. NEB SCH ×4 (08:43→20:35)
[2019-07-20] MEDS: AMPICILLIN NA/SULBACTAM NA 3 GM in SODIUM CHLORIDE 100 ML IVPB SCH (09:51)
[2019-07-20] MEDS ORDERED: PT OWN MED DRAWER 7, Y5N ONE (10:01)
--- NOTE | 2019-07-20 10:17 | PN ---
Progress Note, Physician Chief Complaint: ASLEEP COMFORTABLE EVENTS AND NOTES REVIEWED - Current Medication List Current Medications: Active Medications Albuterol/Ipratropium (Duoneb -) 1 amp NEB RQID [facility] Last Admin: 07/20/19 08:43 Dose: 1 amp Amlodipine Besylate (Norvasc -) 5 mg PO DAILY [facility] Last Admin: 07/19/19 10:13 Dose: 5 mg Furosemide (Lasix Injection -) 60 mg IVPUSH BID@0600,1400 [facility] Last Admin: 07/20/19 06:31 Dose: 60 mg Ampicillin Sodium/Sulbactam (Sodium 3 gm/ Sodium Chloride) 100 mls @ 200 mls/ hr IVPB BID [facility] Last Admin: 07/19/19 23:37 Dose: 200 mls/hr Levetiracetam (Keppra -) 500 mg PO BID [facility] Last Admin: 07/19/19 22:39 Dose: 500 mg Levothyroxine Sodium (Synthroid -) 25 mcg PO DAILY@0700 [facility] Last Admin: 07/20/19 06:31 Dose: 25 mcg Methylprednisolone Sodium Succinate (Solu-Medrol -) 40 mg IVPUSH BID [facility] Last Admin: 07/19/19 22:39 Dose: 40 mg Mycophenolate Mofetil (Cellcept -) 500 mg PO DAILY [facility] Last Admin: 07/19/19 10:14 Dose: 500 mg Rosuvastatin Calcium (Crestor -) 10 mg PO HS [facility] Last Admin: 07/19/19 22:39 Dose: 10 mg Tamsulosin HCl (Flomax -) 0.4 mg PO DAILY@0830 [facility] Last Admin: 07/19/19 10:13 Dose: 0.4 mg - Objective Vital Signs: Vital Signs Temperature 98.6 F 07/20/19 06:00 Pulse Rate 104 H 07/20/19 06:00 Respiratory Rate 18 07/20/19 06:00 Blood Pressure 139/95 07/20/19 06:00 O2 Sat by Pulse Oximetry (%) 96 07/19/19 23:00 Constitutional: Yes: Mild Distress Cardiovascular: Yes: Regular Rate and Rhythm Respiratory: Yes: Diminished Gastrointestinal: Yes: Abdomen, Obese Genitourinary: Yes: [place] Present Musculoskeletal: Yes: Muscle Weakness Edema: Yes Edema: LLE: Trace, RLE: Trace Integumentary: Yes: Rash Neurological: Yes: Pre-Existing Deficit Psychiatric: Yes: Other Labs: CBC, BMP 07/20/19 07:05 07/20/19 07:05 INR, PTT INR 1.48 (0.83-1.09) H 07/14/19 22:46 Problem List - Problems (1) Anasarca Code(s): R60.1 - GENERALIZED EDEMA (2) Anemia Code(s): D64.9 - ANEMIA, UNSPECIFIED (3) CHF exacerbation Code(s): I50.9 - HEART FAILURE, UNSPECIFIED Qualifiers: Heart failure type: unspecified Qualified Code(s): I50.9 - Heart failure, unspecified (4) Hypercapnic respiratory failure Code(s): J96.92 - RESPIRATORY FAILURE, UNSPECIFIED WITH HYPERCAPNIA (5) Lethargy Code(s): R53.83 - OTHER FATIGUE (6) Pneumonia Code(s): J18.9 - PNEUMONIA, UNSPECIFIED ORGANISM (7) Acute on chronic renal insufficiency Code(s): N28.9 - DISORDER OF KIDNEY AND URETER, UNSPECIFIED; N18.9 - CHRONIC KIDNEY DISEASE, UNSPECIFIED (8) Acute on chronic systolic congestive heart failure Code(s): I50.23 - ACUTE ON CHRONIC SYSTOLIC (CONGESTIVE) HEART FAILURE (9) Afib Code(s): I48.91 - UNSPECIFIED ATRIAL FIBRILLATION Qualifiers: Atrial fibrillation type: paroxysmal Qualified Code(s): I48.0 - Paroxysmal atrial fibrillation (10) CKD (chronic kidney disease) Code(s): N18.9 - CHRONIC KIDNEY DISEASE, UNSPECIFIED (11) Cardiomyopathy Code(s): I42.9 - CARDIOMYOPATHY, UNSPECIFIED (12) Diabetes mellitus Code(s): E11.9 - TYPE 2 DIABETES MELLITUS WITHOUT COMPLICATIONS (13) HTN (hypertension) Code(s): I10 - ESSENTIAL (PRIMARY) HYPERTENSION (14) History of colon cancer Code(s): Z85.038 - PERSONAL HISTORY OF MALIGNANT NEOPLASM OF LARGE INTESTINE (15) Pulmonary hypertension Code(s): I27.2 - OTHER SECONDARY PULMONARY HYPERTENSION * DO NOT USE * (16) Seizure disorder Code(s): G40.909 - EPILEPSY, UNSP, NOT INTRACTABLE, WITHOUT STATUS EPILEPTICUS Assessment/Plan PULMONARY F/U APPRECIATED CXR ORDERED BP CONTROL ADD HYDRALAZINE WILL INCREASE LASIX IV TO BID ELIMINATE VOLUME OVERLOAD CHF. MONITOR LABS, CKD RENAL F/U DVT PROPHYLAXIS DC TELE DC PLANNNG TAPER OFF STEROIDS
[2019-07-20] MEDS: methylPREDNISolone NA SUCC 40 MG/1 ML VIAL IVPUSH SCH ×2 (10:29→22:44)
[2019-07-20] MEDS: levETIRAcetam 500 MG TABLET (FP) PO SCH ×2 (10:29→22:44)
[2019-07-20] MEDS: amLODIPine BESYLATE 5 MG TABLET (FP) PO SCH (10:29)
[2019-07-20] MEDS: MYCOPHENOLATE MOFETIL 500 MG TABLET PO SCH (10:29)
[2019-07-20] MEDS: TAMSULOSIN HCL 0.4 MG CAP PO SCH (10:37)
--- NOTE | 2019-07-20 13:25 | PN ---
Progress Note (short form) - Note Progress Note: PULMONARY Denies shortness of breath, chest pain. Saturating well on nasal cannula. Vital Signs Period Temp Pulse Resp BP Sys/Hair Pulse Ox Last 24 Hr 97.8 F-98.8 F 65-104 18-22 112-145/70-95 91-96 Gen: NAD at rest Heart: RRR Lung: decreased breath sounds at the bases Abd: soft, nontender Ext: no edema CBC, BMP 07/20/19 07:05 07/20/19 07:05 Active Medications Albuterol/Ipratropium (Duoneb -) 1 amp NEB RQID [facility] Last Admin: 07/20/19 11:40 Dose: 1 amp Amlodipine Besylate (Norvasc -) 5 mg PO DAILY [facility] Last Admin: 07/20/19 10:29 Dose: 5 mg Furosemide (Lasix Injection -) 60 mg IVPUSH BID@0600,1400 [facility] Last Admin: 07/20/19 06:31 Dose: 60 mg Ampicillin Sodium/Sulbactam (Sodium 3 gm/ Sodium Chloride) 100 mls @ 200 mls/ hr IVPB BID [facility] Last Admin: 07/20/19 09:51 Dose: 200 mls/hr Levetiracetam (Keppra -) 500 mg PO BID [facility] Last Admin: 07/20/19 10:29 Dose: 500 mg Levothyroxine Sodium (Synthroid -) 25 mcg PO DAILY@0700 [facility] Last Admin: 07/20/19 06:31 Dose: 25 mcg Methylprednisolone Sodium Succinate (Solu-Medrol -) 40 mg IVPUSH BID [facility] Last Admin: 07/20/19 10:29 Dose: 40 mg Mycophenolate Mofetil (Cellcept -) 500 mg PO DAILY [facility] Last Admin: 07/20/19 10:29 Dose: 500 mg Rosuvastatin Calcium (Crestor -) 10 mg PO HS [facility] Last Admin: 07/19/19 22:39 Dose: 10 mg Tamsulosin HCl (Flomax -) 0.4 mg PO DAILY@0830 [facility] Last Admin: 07/20/19 10:37 Dose: 0.4 mg A/P Acute Hypercapneic Respiratory Failure improving Altered Mental Status improving Pneumonia likely Aspiration Acute COPD Exacerbation Acute on Chronic Diastolic Heart Failure Pulmonary HTN Acute on Chronic Renal Failure Atrial Fibrillation +Troponins likely [place]and Ischemia CAD HTN Hyperlipidemia CKD BPH Seizure Disorder h/o CVA Anemia - O2 to keep SpO2 >90% - continue antibiotics - continue lasix - monitor urine output, creatinine - rate control - off anticoagulation due h/o GI bleed
[2019-07-20] MEDS: ROSUVASTATIN CA 10 MG TABLET (FP) PO SCH (22:44)
[2019-07-21] MEDS: AMPICILLIN NA/SULBACTAM NA 3 GM in SODIUM CHLORIDE 100 ML IVPB SCH ×3 (01:33→21:30)
[2019-07-21] MEDS: LEVOTHYROXINE NA 25 MCG TABLET (FP) PO SCH (06:18)
[2019-07-21] MEDS: FUROSEMIDE 40 MG/4 ML INJECTABLE VIAL IVPUSH SCH ×2 (06:18→14:06)
[2019-07-21 07:38] LABS: BLOOD UREA NITROGEN 69.8 mg/dL (7-18); CALCIUM 8.2 mg/dL (8.5-10.1); CREATININE 2.4 mg/dL (0.55-1.3); POTASSIUM 4.5 mmol/L (3.5-5.1)
[2019-07-21] MEDS: ALBUTEROL SO4 2.5/IPRATROPIUM 0.5 INH SOL 3 ML VIAL.NEB. NEB SCH ×4 (07:40→21:16)
[2019-07-21] MEDS: TAMSULOSIN HCL 0.4 MG CAP PO SCH (08:04)
[2019-07-21] MEDS: levETIRAcetam 500 MG TABLET (FP) PO SCH ×2 (09:33→21:22)
[2019-07-21] MEDS: methylPREDNISolone NA SUCC 40 MG/1 ML VIAL IVPUSH SCH (09:34)
[2019-07-21] MEDS: MYCOPHENOLATE MOFETIL 500 MG TABLET PO SCH (09:34)
[2019-07-21] MEDS: amLODIPine BESYLATE 5 MG TABLET (FP) PO SCH (09:34)
--- NOTE | 2019-07-21 10:05 | PN ---
Progress Note (short form) - Note Progress Note: Denies shortness of breath, chest pain. Saturating well on nasal cannula. CXR: 07/20: worsening bilateral pulmonary vascular congestion and pleural effusions Intake & Output 07/18/19 07/19/19 07/20/19 07/21/19 23:59 23:59 23:59 23:59 Intake Total 1560 360 500 400 Output Total 810 1600 1050 Balance 750 -1240 -550 400 Weight 258 lb 6.108 oz 263 lb 12.8 oz 263 lb 4 oz Last Vital Signs Temp Pulse Resp BP Pulse Ox 97.4 F L 89 20 152/90 97 07/21/19 08:51 07/21/19 08:51 07/21/19 08:51 07/21/19 08:51 07/20/19 21:00 Active Medications Albuterol/Ipratropium (Duoneb -) 1 amp NEB RQID [facility] Last Admin: 07/21/19 07:40 Dose: 1 amp Amlodipine Besylate (Norvasc -) 5 mg PO DAILY [facility] Last Admin: 07/21/19 09:34 Dose: 5 mg Furosemide (Lasix Injection -) 60 mg IVPUSH BID@0600,1400 [facility] Last Admin: 07/21/19 06:18 Dose: 60 mg Ampicillin Sodium/Sulbactam (Sodium 3 gm/ Sodium Chloride) 100 mls @ 200 mls/ hr IVPB BID [facility] Last Admin: 07/21/19 01:33 Dose: 200 mls/hr Levetiracetam (Keppra -) 500 mg PO BID [facility] Last Admin: 07/21/19 09:33 Dose: 500 mg Levothyroxine Sodium (Synthroid -) 25 mcg PO DAILY@0700 [facility] Last Admin: 07/21/19 06:18 Dose: 25 mcg Methylprednisolone Sodium Succinate (Solu-Medrol -) 40 mg IVPUSH BID [facility] Last Admin: 07/21/19 09:34 Dose: 40 mg Mycophenolate Mofetil (Cellcept -) 500 mg PO DAILY [facility] Last Admin: 07/21/19 09:34 Dose: 500 mg Rosuvastatin Calcium (Crestor -) 10 mg PO HS [facility] Last Admin: 07/20/19 22:44 Dose: 10 mg Tamsulosin HCl (Flomax -) 0.4 mg PO DAILY@0830 [facility] Last Admin: 07/21/19 08:04 Dose: 0.4 mg Gen: NAD at rest Heart: RRR Lung: decreased breath sounds at the bases Abd: soft, nontender Ext: no edema Laboratory Results - last 24 hr 07/21/19 07:00 Sodium 136 Potassium 4.5 Chloride 98 Carbon Dioxide 32 Anion Gap 6 L BUN 69.8 H Creatinine 2.4 H Est GFR (CKD-EPI)AfAm 28.26 Est GFR (CKD-EPI)NonAf 24.38 Random Glucose 422 H* Calcium 8.2 L A/P Acute Hypercapneic Respiratory Failure improving Altered Mental Status improving Pneumonia likely Aspiration Acute COPD Exacerbation Acute on Chronic Diastolic Heart Failure Pulmonary HTN Acute on Chronic Renal Failure Atrial Fibrillation +Troponins likely [place] Ischemia CAD HTN Hyperlipidemia CKD BPH Seizure Disorder h/o CVA Anemia - O2 to keep SpO2 >90% - continue antibiotics - Lasix IVP BID - monitor urine output, creatinine - rate control - off anticoagulation due h/o GI bleed - Monitor off systemic steroids for now Dr Contreras
--- NOTE | 2019-07-21 10:12 | PN ---
Progress Note, Physician - Current Medication List Current Medications: Active Medications Albuterol/Ipratropium (Duoneb -) 1 amp NEB RQID [facility] Last Admin: 07/21/19 07:40 Dose: 1 amp Amlodipine Besylate (Norvasc -) 5 mg PO DAILY [facility] Last Admin: 07/21/19 09:34 Dose: 5 mg Furosemide (Lasix Injection -) 60 mg IVPUSH BID@0600,1400 [facility] Last Admin: 07/21/19 06:18 Dose: 60 mg Ampicillin Sodium/Sulbactam (Sodium 3 gm/ Sodium Chloride) 100 mls @ 200 mls/ hr IVPB BID [facility] Last Admin: 07/21/19 01:33 Dose: 200 mls/hr Levetiracetam (Keppra -) 500 mg PO BID [facility] Last Admin: 07/21/19 09:33 Dose: 500 mg Levothyroxine Sodium (Synthroid -) 25 mcg PO DAILY@0700 [facility] Last Admin: 07/21/19 06:18 Dose: 25 mcg Methylprednisolone Sodium Succinate (Solu-Medrol -) 40 mg IVPUSH BID [facility] Last Admin: 07/21/19 09:34 Dose: 40 mg Mycophenolate Mofetil (Cellcept -) 500 mg PO DAILY [facility] Last Admin: 07/21/19 09:34 Dose: 500 mg Rosuvastatin Calcium (Crestor -) 10 mg PO HS [facility] Last Admin: 07/20/19 22:44 Dose: 10 mg Tamsulosin HCl (Flomax -) 0.4 mg PO DAILY@0830 [facility] Last Admin: 07/21/19 08:04 Dose: 0.4 mg - Objective Vital Signs: Vital Signs Temperature 97.4 F L 07/21/19 08:51 Pulse Rate 89 07/21/19 08:51 Respiratory Rate 20 07/21/19 08:51 Blood Pressure 152/90 07/21/19 08:51 O2 Sat by Pulse Oximetry (%) 97 07/20/19 21:00 Cardiovascular: Yes: S1, S2 Respiratory: Yes: Regular, CTA Bilaterally Gastrointestinal: Yes: Normal Bowel Sounds, Soft. No: Tenderness Labs: CBC, BMP 07/20/19 07:05 07/21/19 07:00 INR, PTT INR 1.48 (0.83-1.09) H 07/14/19 22:46 Problem List - Problems (1) Hypothermia Code(s): T68.XXXA - HYPOTHERMIA, INITIAL ENCOUNTER (2) Lethargy Code(s): R53.83 - OTHER FATIGUE (3) CHF exacerbation Code(s): I50.9 - HEART FAILURE, UNSPECIFIED Qualifiers: Heart failure type: unspecified Qualified Code(s): I50.9 - Heart failure, unspecified (4) Anemia Code(s): D64.9 - ANEMIA, UNSPECIFIED (5) Afib Code(s): I48.91 - UNSPECIFIED ATRIAL FIBRILLATION Qualifiers: Atrial fibrillation type: paroxysmal Qualified Code(s): I48.0 - Paroxysmal atrial fibrillation (6) CKD (chronic kidney disease) Code(s): N18.9 - CHRONIC KIDNEY DISEASE, UNSPECIFIED (7) Diabetes mellitus Code(s): E11.9 - TYPE 2 DIABETES MELLITUS WITHOUT COMPLICATIONS (8) Gastritis Code(s): K29.70 - GASTRITIS, UNSPECIFIED, WITHOUT BLEEDING (9) Seizure Code(s): R56.9 - UNSPECIFIED CONVULSIONS Assessment/Plan - Problems (1) Altered mental state Assessment/Plan: -Resolved -Head CT scan shows no significant interval change -2/2 to infection Code(s): R41.82 - ALTERED MENTAL STATUS, UNSPECIFIED (2) CHF exacerbation Assessment/Plan: -Furosemide BID -Cardiology and Pulmonary on board -CXR shows atelectasis or scarring in LLL, atelectasis or infiltrate at medial right base-Repeat -Echo 50-55% -1 L fluid restriction -daily weights -strict I&O Code(s): I50.9 - HEART FAILURE, UNSPECIFIED Qualifiers: Heart failure type: unspecified Qualified Code(s): I50.9 - Heart failure, unspecified (3) Pneumonia Assessment/Plan: -Pulmonary on board -CXR shows atelectasis or scarring in LLL, atelectasis or infiltrate at medial right base -Bronchodilators -IV Medrol--to po -keep SpO2 >90% -O2 via NC, HFOT -Unasyn -no leukocytosis -afebrile Code(s): J18.9 - PNEUMONIA, UNSPECIFIED ORGANISM (4) Afib Assessment/Plan: -Cardiology on board -no AC due to history of anemia or gi bleed Code(s): I48.91 - UNSPECIFIED ATRIAL FIBRILLATION Qualifiers: Atrial fibrillation type: paroxysmal Qualified Code(s): I48.0 - Paroxysmal atrial fibrillation (5) BPH (benign prostatic hyperplasia) Assessment/Plan: -Tamsulosin Code(s): N40.0 - BENIGN PROSTATIC HYPERPLASIA WITHOUT LOWER URINRY TRACT SYMP (6) CAD (coronary artery disease) Assessment/Plan: -Crestor Code(s): I25.10 - ATHSCL HEART DISEASE OF [place] CORONARY ARTERY W/O ANG PCTRS (7) CKD (chronic kidney disease) Assessment/Plan: -renal on board -monitor renal function daily Code(s): N18.9 - CHRONIC KIDNEY DISEASE, UNSPECIFIED (8) HTN (hypertension) Assessment/Plan: -Furosemide -low Na diet Code(s): I10 - ESSENTIAL (PRIMARY) HYPERTENSION (9) Hyperlipidemia Assessment/Plan: -crestor Code(s): E78.5 - HYPERLIPIDEMIA, UNSPECIFIED (10) Hypothyroid Assessment/Plan: -Levothyroxine Code(s): E03.9 - HYPOTHYROIDISM, UNSPECIFIED (11) Seizure Code(s): R56.9 - UNSPECIFIED CONVULSIONS
[2019-07-21] MEDS ORDERED: PT OWN MED DRAWER 7, Y5N ONE ×2 (11:32→20:44)
--- NOTE | 2019-07-21 11:43 | PN ---
Progress Note, Physician Chief Complaint: alt ms History of Present Illness: much more awake. conversant today, slowly. states he is tired, thirsty. denies cp, sob, palp - Current Medication List Current Medications: Active Medications Albuterol/Ipratropium (Duoneb -) 1 amp NEB RQID [facility] Last Admin: 07/21/19 07:40 Dose: 1 amp Amlodipine Besylate (Norvasc -) 5 mg PO DAILY [facility] Last Admin: 07/21/19 09:34 Dose: 5 mg Furosemide (Lasix Injection -) 60 mg IVPUSH BID@0600,1400 [facility] Last Admin: 07/21/19 06:18 Dose: 60 mg Ampicillin Sodium/Sulbactam (Sodium 3 gm/ Sodium Chloride) 100 mls @ 200 mls/ hr IVPB BID [facility] Last Admin: 07/21/19 01:33 Dose: 200 mls/hr Insulin Aspart (Novolog Vial Sliding Scale -) 1 vial SQ ACHS [facility]; Protocol Levetiracetam (Keppra -) 500 mg PO BID [facility] Last Admin: 07/21/19 09:33 Dose: 500 mg Levothyroxine Sodium (Synthroid -) 25 mcg PO DAILY@0700 [facility] Last Admin: 07/21/19 06:18 Dose: 25 mcg Mycophenolate Mofetil (Cellcept -) 500 mg PO DAILY [facility] Last Admin: 07/21/19 09:34 Dose: 500 mg Prednisone (Deltasone -) 30 mg PO BID [facility] Rosuvastatin Calcium (Crestor -) 10 mg PO HS [facility] Last Admin: 07/20/19 22:44 Dose: 10 mg Tamsulosin HCl (Flomax -) 0.4 mg PO DAILY@0830 [facility] Last Admin: 07/21/19 08:04 Dose: 0.4 mg - Objective Vital Signs: Vital Signs Temperature 97.4 F L 07/21/19 08:51 Pulse Rate 89 07/21/19 08:51 Respiratory Rate 20 07/21/19 08:51 Blood Pressure 152/90 07/21/19 08:51 O2 Sat by Pulse Oximetry (%) 97 07/20/19 21:00 Constitutional: Yes: No Distress, Calm, Obese Cardiovascular: Yes: Regular Rate and Rhythm, S1, S2. No: JVD, Gallop, Murmur Respiratory: Yes: Regular, CTA Bilaterally. No: Accessory Muscle Use, Rales, Wheezes Extremities: No: Cold Edema: No Neurological: Yes: Alert. No: Seizure Psychiatric: No: Agitated Labs: CBC, BMP 07/20/19 07:05 07/21/19 07:00 INR, PTT INR 1.48 (0.83-1.09) H 07/14/19 22:46 Assessment/Plan 07/2015 Cardiac cath - Right-Sided Pressures are Increased, Mild Pulmonary Hypertension (pa mean 30), PVRI is mildly increased - 5, PCW is increased- 18, Decreased Cardiac Output ~5.6 liter/min Coronary Anatomy : I Vessel CAD (RCA) LV Function/Aorta : Moderate systolic LV Dysfunction ~EF 35% 07/2015 TTE - normal left ventricular size overall moderate decreased left ventricular systolic function (diffuse); ejection fraction = 43 % moderate concentric left ventricular hypertrophy abnormal left ventricular diastolic filling pattern [may be due to age or LVH] probable mild right ventricular dilatation probable mild decreased right ventricular function mild to moderate mitral regurgitation mild tricuspid regurgitation mild pulmonary hypertension ascending aorta dilatation technically difficult study Definity precision microbubble contrast used to enhance endocardial border definition echo 06/2019: mod conc LVH, low nl LV function, restrictive physiology. mildly dilated RV, mod reduced RV systolic function. LA mod dilated, RA sev dilated. mild AI/MR, RVSP >60 mmHg mibi 09/2018 diaphragmatic attenuation, nl EF, no ischemia EKG: afib, rate controlled, no ischemic changes CXR 07/16, 07/18: no vasc redistrib, diffuse hazy infiltrates bilat lower lung tang, bases cut off--new vs 07/14 (no progressive changes on last cxr) ASSESSMENT/PLAN 79yo with chronic diastolic HF, afib, cad s/p remote pci (2010 per pt), htn, hld , ckd, CVA ( residual BL motor weakness), seizure p/w dyspnea, edema hypothermia, alt mental status, ? PNA - ? source--possible PNA per ID. CXR worsened since admission, hazy bilat infiltrates ? CHF vs PNA - f/u CXRs with diuresis--if infiltrates persist, rec CT chest if pt can cooperate sufficiently - CT head neg acute on chronic combined systolic and diastolic HF, severe pulm HTN - history of systolic dysfunction with nl LV function on mibi 09/2018 - echo shows low nl LV function and restrictive physiology - CXR ? congestion appearance (vs PNA)--monitor CXRs with diuresis - lasix 20 po bid at home--receiving 60 iv bid here. no standing weights (alt MS ). LE edema resolved, CXR remains congested/worsened. ? JVD has resolved. creat improving. same lasix. repeat CXR tomorrow--consider CT chest as above. LETITIA on CKD - last creat here 2.0 (03/06) - renal fxn slightly worse here, creat improving with diuresis. likely cardiorenal syndrome component elevated trop - indeterminate range, flat trend - EKG no ischemic changes, less likely ACS - likely demand in setting of HF exac Afib - not on AC due to history of anemia, GI bleed - rate controlled off av sravanthi blockade - hx of slow ventricular rate on coreg - same plan CAD hx prior PCI - S/p Cardiac cath 07/20/15 with Non Obstructive CAD, mibi no ischemia 09/2018 - not on antiplatelets given history of anemia - cont statin - no concern of active ischemia htn - bp suboptimal, reasonable - target <130/80 - volume overloaded--improving with diuresis - cont amlodipine. add carvedilol 6.25 BID anemia - manage per primary
[2019-07-21] MEDS: INSULIN SLIDING SCALE (NOVOLOG) 1 VIAL SQ SCH ×3 (11:52→21:28)
[2019-07-21] MEDS: CARVEDILOL 6.25 MG TABLET (FP) PO SCH ×2 (12:21→21:23)
[2019-07-21 13:29] VITALS: BMI 39.9
--- NOTE | 2019-07-21 17:58 | PN ---
Progress Note, Physician History of Present Illness: Pt seen and examined at bedside. He is awake and alert. He feels that his breathing is improving. - Current Medication List Current Medications: Active Medications Albuterol/Ipratropium (Duoneb -) 1 amp NEB RQID [facility] Last Admin: 07/21/19 15:55 Dose: 1 amp Amlodipine Besylate (Norvasc -) 5 mg PO DAILY [facility] Last Admin: 07/21/19 09:34 Dose: 5 mg Carvedilol (Coreg -) 6.25 mg PO BID [facility] Last Admin: 07/21/19 12:21 Dose: 6.25 mg Furosemide (Lasix Injection -) 60 mg IVPUSH BID@0600,1400 [facility] Last Admin: 07/21/19 14:06 Dose: 60 mg Ampicillin Sodium/Sulbactam (Sodium 3 gm/ Sodium Chloride) 100 mls @ 200 mls/ hr IVPB BID [facility] Last Admin: 07/21/19 11:58 Dose: 200 mls/hr Insulin Aspart (Novolog Vial Sliding Scale -) 1 vial SQ [facility]; Protocol Last Admin: 07/21/19 16:45 Dose: 14 units Levetiracetam (Keppra -) 500 mg PO BID [facility] Last Admin: 07/21/19 09:33 Dose: 500 mg Levothyroxine Sodium (Synthroid -) 25 mcg PO DAILY@0700 [facility] Last Admin: 07/21/19 06:18 Dose: 25 mcg Mycophenolate Mofetil (Cellcept -) 500 mg PO DAILY [facility] Last Admin: 07/21/19 09:34 Dose: 500 mg Prednisone (Deltasone -) 30 mg PO BID [facility] Rosuvastatin Calcium (Crestor -) 10 mg PO HS [facility] Last Admin: 07/20/19 22:44 Dose: 10 mg Tamsulosin HCl (Flomax -) 0.4 mg PO DAILY@0830 [facility] Last Admin: 07/21/19 08:04 Dose: 0.4 mg - Objective Vital Signs: Vital Signs Temperature 97.9 F 07/21/19 15:11 Pulse Rate 96 H 07/21/19 15:11 Respiratory Rate 20 07/21/19 15:11 Blood Pressure 152/93 07/21/19 15:11 O2 Sat by Pulse Oximetry (%) 97 07/21/19 09:00 Constitutional: Yes: Calm Eyes: Yes: Conjunctiva Clear HENT: Yes: Atraumatic Neck: Yes: Supple Cardiovascular: Yes: S1, S2 Respiratory: Yes: CTA Bilaterally Gastrointestinal: Yes: Soft Genitourinary: Yes: WNL Musculoskeletal: Yes: WNL Edema: Yes Edema: LLE: 1+, RLE: 1+ Neurological: Yes: Oriented Labs: CBC, BMP 07/20/19 07:05 07/21/19 07:00 INR, PTT INR 1.48 (0.83-1.09) H 07/14/19 22:46 Problem List - Problems (1) Altered mental state Code(s): R41.82 - ALTERED MENTAL STATUS, UNSPECIFIED (2) CHF exacerbation Code(s): I50.9 - HEART FAILURE, UNSPECIFIED Qualifiers: Heart failure type: unspecified Qualified Code(s): I50.9 - Heart failure, unspecified (3) CHF exacerbation Code(s): I50.9 - HEART FAILURE, UNSPECIFIED (4) CKD (chronic kidney disease) Code(s): N18.9 - CHRONIC KIDNEY DISEASE, UNSPECIFIED Assessment/Plan Current Medications Generic Name Dose Route Start Last Admin Trade Name Freq PRN Reason Stop Dose Admin Albuterol/Ipratropium 1 amp 07/19/19 08:00 07/21/19 15:55 Duoneb - NEB 1 amp RQID [facility] Administration Amlodipine Besylate 5 mg 07/19/19 10:00 07/21/19 09:34 Norvasc - PO 5 mg DAILY [facility]EL Administration Carvedilol 6.25 mg 07/21/19 11:45 07/21/19 12:21 Coreg - PO 6.25 mg BID MICHAEL Administration Furosemide 60 mg 07/18/19 13:48 07/21/19 14:06 Lasix Injection - IVPUSH 60 mg BID@0600,1400 [facility]EL Administration Ampicillin Sodium/Sulbactam 100 mls @ 200 mls/hr 07/19/19 10:00 07/21/19 11: 58 Sodium 3 gm/ Sodium Chloride IVPB 200 mls/hr BID [facility]EL Administration Insulin Aspart 1 vial 07/21/19 11:00 07/21/19 16:45 Novolog Vial Sliding Scale - SQ 14 units ACHS [facility]HAEL Administration Protocol Levetiracetam 500 mg 07/19/19 10:00 07/21/19 09:33 Keppra - PO 500 mg BID [facility] Administration Levothyroxine Sodium 25 mcg 07/20/19 07:00 07/21/19 06:18 Synthroid - PO 25 mcg DAILY@0700 [facility] Administration Mycophenolate Mofetil 500 mg 07/19/19 10:00 07/21/19 09:34 Cellcept - PO 500 mg DAILY [facility] Administration Prednisone 30 mg 07/21/19 22:00 Deltasone - PO BID [facility] Rosuvastatin Calcium 10 mg 07/19/19 22:00 07/20/19 22:44 Crestor - PO 10 mg HS [facility] Administration Tamsulosin HCl 0.4 mg 07/19/19 08:30 07/21/19 08:04 Flomax - PO 0.4 mg DAILY@0830 [facility] Administration Impression 1. CKD 2. CHF 3. BPH 4. a. fib 5. CAD 6. epilepsy 7. proteinuria 8. anemia 9. acute resp failure 10. hypernatremia Plan - cont with lasix - repeat labs in am - volume status improving - mental status improved - monitor hg Dr Tipton
[2019-07-21] MEDS: predniSONE 10 MG TABLET (UD) PO SCH (21:24)
[2019-07-21] MEDS: ROSUVASTATIN CA 10 MG TABLET (FP) PO SCH (21:25)
[2019-07-22] MEDS: LEVOTHYROXINE NA 25 MCG TABLET (FP) PO SCH (06:29)
[2019-07-22] MEDS: FUROSEMIDE 40 MG/4 ML INJECTABLE VIAL IVPUSH SCH ×2 (06:29→13:19)
[2019-07-22] MEDS: INSULIN SLIDING SCALE (NOVOLOG) 1 VIAL SQ SCH ×4 (06:30→21:05)
[2019-07-22 08:15] LABS: BLOOD UREA NITROGEN 74.8 mg/dL (7-18); CALCIUM 8.2 mg/dL (8.5-10.1); CREATININE 2.2 mg/dL (0.55-1.3); POTASSIUM 4.4 mmol/L (3.5-5.1)
[2019-07-22] MEDS: TAMSULOSIN HCL 0.4 MG CAP PO SCH (08:25)
--- NOTE | 2019-07-22 08:50 | PN ---
Progress Note, Physician - Current Medication List Current Medications: Active Medications Albuterol/Ipratropium (Duoneb -) 1 amp NEB RQID [facility] Last Admin: 07/21/19 21:16 Dose: 1 amp Amlodipine Besylate (Norvasc -) 5 mg PO DAILY [facility] Last Admin: 07/21/19 09:34 Dose: 5 mg Carvedilol (Coreg -) 6.25 mg PO BID [facility] Last Admin: 07/21/19 21:23 Dose: 6.25 mg Furosemide (Lasix Injection -) 60 mg IVPUSH BID@0600,1400 [facility] Last Admin: 07/22/19 06:29 Dose: 60 mg Ampicillin Sodium/Sulbactam (Sodium 3 gm/ Sodium Chloride) 100 mls @ 200 mls/ hr IVPB BID [facility] Last Admin: 07/21/19 21:30 Dose: 200 mls/hr Insulin Aspart (Novolog Vial Sliding Scale -) 1 vial SQ ACHS [facility]; Protocol Last Admin: 07/22/19 06:30 Dose: 2 units Levetiracetam (Keppra -) 500 mg PO BID [facility] Last Admin: 07/21/19 21:22 Dose: 500 mg Levothyroxine Sodium (Synthroid -) 25 mcg PO DAILY@0700 [facility] Last Admin: 07/22/19 06:29 Dose: 25 mcg Mycophenolate Mofetil (Cellcept -) 500 mg PO DAILY [facility] Last Admin: 07/21/19 09:34 Dose: 500 mg Prednisone (Deltasone -) 30 mg PO BID [facility] Last Admin: 07/21/19 21:24 Dose: 30 mg Rosuvastatin Calcium (Crestor -) 10 mg PO HS [facility] Last Admin: 07/21/19 21:25 Dose: 10 mg Tamsulosin HCl (Flomax -) 0.4 mg PO DAILY@0830 [facility] Last Admin: 07/22/19 08:25 Dose: 0.4 mg - Objective Vital Signs: Vital Signs Temperature 97.5 F L 07/22/19 06:00 Pulse Rate 80 07/22/19 06:00 Respiratory Rate 20 07/22/19 06:00 Blood Pressure 150/76 07/22/19 06:00 O2 Sat by Pulse Oximetry (%) 97 07/21/19 21:00 Cardiovascular: Yes: S1, S2 Respiratory: Yes: CTA Bilaterally, On Nasal O2 Gastrointestinal: Yes: Normal Bowel Sounds, Soft Labs: CBC, BMP 07/20/19 07:05 07/22/19 06:20 INR, PTT INR 1.48 (0.83-1.09) H 07/14/19 22:46 Problem List - Problems (1) Hypothermia Code(s): T68.XXXA - HYPOTHERMIA, INITIAL ENCOUNTER (2) Lethargy Code(s): R53.83 - OTHER FATIGUE (3) CHF exacerbation Code(s): I50.9 - HEART FAILURE, UNSPECIFIED Qualifiers: Heart failure type: unspecified Qualified Code(s): I50.9 - Heart failure, unspecified (4) Anemia Code(s): D64.9 - ANEMIA, UNSPECIFIED (5) Afib Code(s): I48.91 - UNSPECIFIED ATRIAL FIBRILLATION Qualifiers: Atrial fibrillation type: paroxysmal Qualified Code(s): I48.0 - Paroxysmal atrial fibrillation (6) CKD (chronic kidney disease) Code(s): N18.9 - CHRONIC KIDNEY DISEASE, UNSPECIFIED (7) Diabetes mellitus Code(s): E11.9 - TYPE 2 DIABETES MELLITUS WITHOUT COMPLICATIONS (8) Gastritis Code(s): K29.70 - GASTRITIS, UNSPECIFIED, WITHOUT BLEEDING (9) Seizure Code(s): R56.9 - UNSPECIFIED CONVULSIONS Assessment/Plan - Problems (1) Altered mental state Assessment/Plan: -Resolved -Head CT scan shows no significant interval change -2/2 to infection Code(s): R41.82 - ALTERED MENTAL STATUS, UNSPECIFIED (2) CHF exacerbation Assessment/Plan: -Furosemide BID -Cardiology and Pulmonary on board -CXR shows atelectasis or scarring in LLL, atelectasis or infiltrate at medial right base-Repeat -Echo 50-55% -1 L fluid restriction -daily weights -strict I&O Code(s): I50.9 - HEART FAILURE, UNSPECIFIED Qualifiers: Heart failure type: unspecified Qualified Code(s): I50.9 - Heart failure, unspecified (3) Pneumonia Assessment/Plan: -Pulmonary on board -CXR shows atelectasis or scarring in LLL, atelectasis or infiltrate at medial right base -Bronchodilators -IV Medrol--to po -keep SpO2 >90% -O2 via NC, HFOT -Unasyn -no leukocytosis -afebrile Code(s): J18.9 - PNEUMONIA, UNSPECIFIED ORGANISM (4) Afib Assessment/Plan: -Cardiology on board -no AC due to history of anemia or gi bleed Code(s): I48.91 - UNSPECIFIED ATRIAL FIBRILLATION Qualifiers: Atrial fibrillation type: paroxysmal Qualified Code(s): I48.0 - Paroxysmal atrial fibrillation (5) BPH (benign prostatic hyperplasia) Assessment/Plan: -Tamsulosin Code(s): N40.0 - BENIGN PROSTATIC HYPERPLASIA WITHOUT LOWER URINRY TRACT SYMP (6) CAD (coronary artery disease) Assessment/Plan: -Crestor Code(s): I25.10 - ATHSCL HEART DISEASE OF [place] CORONARY ARTERY W/O ANG PCTRS (7) CKD (chronic kidney disease) Assessment/Plan: -renal on board -monitor renal function daily-cr 2.2 Code(s): N18.9 - CHRONIC KIDNEY DISEASE, UNSPECIFIED (8) HTN (hypertension) Assessment/Plan: -Furosemide -low Na diet Code(s): I10 - ESSENTIAL (PRIMARY) HYPERTENSION (9) Hyperlipidemia Assessment/Plan: -crestor Code(s): E78.5 - HYPERLIPIDEMIA, UNSPECIFIED (10) Hypothyroid Assessment/Plan: -Levothyroxine Code(s): E03.9 - HYPOTHYROIDISM, UNSPECIFIED (11) Seizure Code(s): R56.9 - UNSPECIFIED CONVULSIONS
[2019-07-22] MEDS: ALBUTEROL SO4 2.5/IPRATROPIUM 0.5 INH SOL 3 ML VIAL.NEB. NEB SCH ×4 (08:55→20:05)
[2019-07-22] MEDS: levETIRAcetam 500 MG TABLET (FP) PO SCH ×2 (09:24→21:05)
[2019-07-22] MEDS: MYCOPHENOLATE MOFETIL 500 MG TABLET PO SCH (09:24)
[2019-07-22] MEDS: amLODIPine BESYLATE 5 MG TABLET (FP) PO SCH (09:24)
[2019-07-22] MEDS: CARVEDILOL 6.25 MG TABLET (FP) PO SCH ×2 (09:25→21:05)
[2019-07-22] MEDS: predniSONE 10 MG TABLET (UD) PO SCH (09:25)
--- NOTE | 2019-07-22 09:28 | EKG ---
Test Reason : Blood Pressure : / mmHG Vent. Rate : 079 BPM Atrial Rate : 079 BPM P-R Int : 000 ms QRS Dur : 090 ms QT Int : 384 ms P-R-T Axes : 000 156 107 degrees QTc Int : 440 ms SUSPECT ARM LEAD REVERSAL, INTERPRETATION ASSUMES NO REVERSAL ATRIAL FIBRILLATION SEPTAL INFARCT (CITED ON OR BEFORE 05-NOV-2017) LATERAL INFARCT , AGE UNDETERMINED ABNORMAL ECG WHEN COMPARED WITH ECG OF 11-JAN-2018 17:53, QRS AXIS SHIFTED RIGHT Confirmed by Braulio Be MD ([id number]) on 07/22/2019 9:27:26 AM Referred By: Confirmed By:Braulio Be MD
--- NOTE | 2019-07-22 10:39 | PN ---
Progress Note (short form) - Note Progress Note: Denies shortness of breath, chest pain. Saturating well on nasal cannula. No acute events overnight. Intake & Output 07/19/19 07/20/19 07/21/19 07/22/19 23:59 23:59 23:59 23:59 Intake Total 360 500 910 10 Output Total 1600 1050 Balance -1240 -550 910 10 Weight 263 lb 12.8 oz 263 lb 4 oz 264 lb 12.8 oz Last Vital Signs Temp Pulse Resp BP Pulse Ox 96.6 F L 92 H 22 H 150/96 97 07/22/19 08:57 07/22/19 08:57 07/22/19 08:57 07/22/19 08:57 07/21/19 21:00 Active Medications Albuterol/Ipratropium (Duoneb -) 1 amp NEB RQID [facility] Last Admin: 07/22/19 08:55 Dose: 1 amp Amlodipine Besylate (Norvasc -) 5 mg PO DAILY [facility] Last Admin: 07/22/19 09:24 Dose: 5 mg Carvedilol (Coreg -) 6.25 mg PO BID [facility] Last Admin: 07/22/19 09:25 Dose: 6.25 mg Furosemide (Lasix Injection -) 60 mg IVPUSH BID@0600,1400 [facility] Last Admin: 07/22/19 06:29 Dose: 60 mg Ampicillin Sodium/Sulbactam (Sodium 3 gm/ Sodium Chloride) 100 mls @ 200 mls/ hr IVPB BID [facility] Last Admin: 07/21/19 21:30 Dose: 200 mls/hr Insulin Aspart (Novolog Vial Sliding Scale -) 1 vial SQ ACHS [facility]; Protocol Last Admin: 07/22/19 06:30 Dose: 2 units Levetiracetam (Keppra -) 500 mg PO BID [facility] Last Admin: 07/22/19 09:24 Dose: 500 mg Levothyroxine Sodium (Synthroid -) 25 mcg PO DAILY@0700 [facility] Last Admin: 07/22/19 06:29 Dose: 25 mcg Mycophenolate Mofetil (Cellcept -) 500 mg PO DAILY [facility] Last Admin: 07/22/19 09:24 Dose: 500 mg Prednisone (Deltasone -) 30 mg PO BID [facility] Last Admin: 07/22/19 09:25 Dose: 30 mg Rosuvastatin Calcium (Crestor -) 10 mg PO HS [facility] Last Admin: 07/21/19 21:25 Dose: 10 mg Tamsulosin HCl (Flomax -) 0.4 mg PO DAILY@0830 [facility] Last Admin: 07/22/19 08:25 Dose: 0.4 mg Gen: NAD at rest Heart: RRR Lung: decreased breath sounds at the bases Abd: soft, nontender Ext: no edema Laboratory Results - last 24 hr 07/21/19 07/21/19 07/21/19 11:48 16:42 21:13 Sodium Potassium Chloride Carbon Dioxide Anion Gap BUN Creatinine Est GFR (CKD-EPI)AfAm Est GFR (CKD-EPI)NonAf POC Glucometer 445 442 416 Random Glucose Hemoglobin A1c % Calcium 07/22/19 07/22/19 07/22/19 06:20 06:27 09:00 Sodium 137 Potassium 4.4 Chloride 98 Carbon Dioxide 33 H Anion Gap 7 L BUN 74.8 H Creatinine 2.2 H Est GFR (CKD-EPI)AfAm 31.40 Est GFR (CKD-EPI)NonAf 27.09 POC Glucometer 219 Random Glucose 233 H Hemoglobin A1c % 8.0 H Calcium 8.2 L A/P Acute Hypercapneic Respiratory Failure improving Altered Mental Status improving Pneumonia likely Aspiration Acute COPD Exacerbation Acute on Chronic Diastolic Heart Failure Pulmonary HTN Acute on Chronic Renal Failure Atrial Fibrillation +Troponins likely Demand Ischemia CAD HTN Hyperlipidemia CKD BPH Seizure Disorder h/o CVA Anemia - O2 to keep SpO2 >90% - continue antibiotics - Lasix IVP BID - monitor urine output, creatinine - rate control - off anticoagulation due h/o GI bleed - Noted Prednisone: changed to OD Dr Contreras
[2019-07-22] MEDS ORDERED: PT OWN MED DRAWER 7, Y5N ONE (10:40)
[2019-07-22] MEDS: AMPICILLIN NA/SULBACTAM NA 3 GM in SODIUM CHLORIDE 100 ML IVPB SCH (10:52)
[2019-07-22 12:33] LABS: ALBUMIN 2.5 g/dl (3.4-5.0)
--- NOTE | 2019-07-22 13:18 | CONSULT ---
Consult Consult Specialty:: PM&R Dr Harris for Dr Arellano - History of Present Illness Chief Complaint: wants to go home History of Present Illness: This is an 79 year old man with a medical history of CVA with R HP, pituitary adenoma s/p resection, seizures, sCHF, EF 40-45%, moderate MR, CAD s/p stents, A fib, GIB, colon cancer s/p partial resection, CKD3, hypothyroidism, who presented to the ED 07/14/2019 with swelling, generalized weakness and SOB x1-2 weeks. He was anemic, for which he underwent anemia work-up. 07/16/2019 CT head was performed for AMS, which showed chronic microvascular ischemic changes without acute pathology. Renal was consulted for CKD. IV Lasix was given for acute CHF exacerbation; Cardiology was consulted as well. Elevated troponin was attributed to demand ischemia. Unasyn was given for PNA. He was seen by PT, and on 07/21/2019 he was Moderate to Maximum Assist in Transfers. Physiatry is being consulted for further recommendations. 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 Cardio/Vascular: Yes: CAD, CHF, HTN, Hyperlipdemia Gastrointestinal: Yes: GI Bleed, Other (Colon cancer) Renal/: Yes: Renal Inusuff (see HPI) Endocrine: Yes: Diabetes Mellitus, Other (pituitary adenoma resection) - Past Surgical History Past Surgical History: Yes: Colectomy (partial given h/o colon cancer), Stent (s /p one vessel PCI) - Alcohol/Substance Use Hx Alcohol Use: No - Smoking History Smoking history: Never smoked Have you smoked in the past 12 months: No Aproximately how many cigarettes per day: 4 If you are a former smoker, when did you quit?: 2009 - Social History Usual Living Arrangement: With Spouse (in elevator apartment) 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) History of Recent Travel: No Home Medications - Allergies Allergies/Adverse Reactions: Allergies Allergy/AdvReac Type Severity Reaction Status Date / Time No Known Allergies Allergy Verified 07/14/19 21:45 - Home Medications Home Medications: Ambulatory Orders Amlodipine Besylate [Norvasc -] 5 mg PO DAILY 07/15/19 Furosemide [Lasix] 20 mg PO BID 07/15/19 Levothyroxine [Synthroid -] 25 mcg PO DAILY 07/15/19 Mycophenolate Mofetil [Cellcept -] 500 mg PO DAILY 07/15/19 Niacin [Niaspan] 750 mg PO DAILY 07/15/19 Tamsulosin HCl [Flomax] 0.4 mg PO DAILY 07/15/19 levETIRAcetam [Keppra -] 500 mg PO BID 07/15/19 predniSONE [Deltasone -] 40 mg PO BID 07/15/19 Review of Systems Findings/Remarks: Denies fevers, chills, changes in vision/ hearing/ mood, CP, SOB, abdominal pain , nausea, vomiting, constipation, diarrhea, dysuria, numbness/ paresthesias BUE / BLE, muscle/ joint pain. Physical Exam Vital Signs: Vital Signs Temperature 96.6 F L 07/22/19 08:57 Pulse Rate 92 H 07/22/19 08:57 Respiratory Rate 22 H 07/22/19 08:57 Blood Pressure 150/96 07/22/19 08:57 O2 Sat by Pulse Oximetry (%) 97 07/21/19 21:00 Musculoskeletal: Yes: Other (General: calm elderly AAM sitting in bed NAD, somewhat hostile but cooperative; B shoulder flexion to 120 degrees, 4+/5 RUE, 5 -/5 LUE, 4+/5 B HF then 5-/5 BLE; Pinprick Intact BUE/ BLE; no BLE pitting edema or B calf tenderness) Labs: CBC, BMP 07/20/19 07:05 07/22/19 06:20 Assessment/Plan Impression: 1) Deficits mobility/ ADLs 2) Deconditioning 3) Gait abnormality 4) AMS, resolved 5) CHF exacerbation with EF 50-55% and hx moderate MR, CAD s/p stents, A fib 6) PNA 7) Anemia 8) hx CVA with R HP 9) hx pituitary adenoma s/p resection 10) Seizures 11) hx GIB, colon cancer s/p partial resection 12) CKD3 13) hx hypothyroidism 14) Obesity 15) Up to date flu shot/ pneumovax Recommendations: 1) PT for stetching strengthening ROM functional mobility and endurance 2) Falls, safety precautions 3) Cardiopulmonary precautions 4) Seizure precautions 5) Nutrition consult for obesity 6) Monitor CBC given anemia 7) Monitor BMP given renal function 8) Discharge planning: patient would benefit from course inpatient rehabilitation once medically stable. However, he is adamant about not going to inpatient rehabilitation "I've done it before and I don't want to do it again". Insists can care for him. Recommend home with home services. Thank you for this referral.
--- NOTE | 2019-07-22 13:32 | PN ---
Progress Note, Physician Chief Complaint: denies CP States he is improving - Current Medication List Current Medications: Active Medications Albuterol/Ipratropium (Duoneb -) 1 amp NEB RQID [facility] Last Admin: 07/22/19 08:55 Dose: 1 amp Amlodipine Besylate (Norvasc -) 5 mg PO DAILY [facility] Last Admin: 07/22/19 09:24 Dose: 5 mg Carvedilol (Coreg -) 6.25 mg PO BID [facility] Last Admin: 07/22/19 09:25 Dose: 6.25 mg Furosemide (Lasix Injection -) 60 mg IVPUSH BID@0600,1400 [facility] Last Admin: 07/22/19 13:19 Dose: 60 mg Ampicillin Sodium/Sulbactam (Sodium 3 gm/ Sodium Chloride) 100 mls @ 200 mls/ hr IVPB BID [facility] Last Admin: 07/22/19 10:52 Dose: 200 mls/hr Insulin Aspart (Novolog Vial Sliding Scale -) 1 vial SQ [facility]; Protocol Last Admin: 07/22/19 11:36 Dose: 2 units Levetiracetam (Keppra -) 500 mg PO BID [facility] Last Admin: 07/22/19 09:24 Dose: 500 mg Levothyroxine Sodium (Synthroid -) 25 mcg PO DAILY@0700 [facility] Last Admin: 07/22/19 06:29 Dose: 25 mcg Mycophenolate Mofetil (Cellcept -) 500 mg PO DAILY [facility] Last Admin: 07/22/19 09:24 Dose: 500 mg Prednisone (Deltasone -) 30 mg PO DAILY [facility] Rosuvastatin Calcium (Crestor -) 10 mg PO HS [facility] Last Admin: 07/21/19 21:25 Dose: 10 mg Tamsulosin HCl (Flomax -) 0.4 mg PO DAILY@0830 [facility] Last Admin: 07/22/19 08:25 Dose: 0.4 mg - Objective Vital Signs: Vital Signs Temperature 96.6 F L 07/22/19 08:57 Pulse Rate 92 H 07/22/19 08:57 Respiratory Rate 22 H 07/22/19 08:57 Blood Pressure 150/96 07/22/19 08:57 O2 Sat by Pulse Oximetry (%) 97 07/21/19 21:00 Constitutional: Yes: No Distress Cardiovascular: Yes: Pulse Irregular Respiratory: Yes: Rhonchi Gastrointestinal: Yes: Soft (NT) Edema: Yes Edema: LLE: 1+, RLE: 1+ Neurological: Yes: Alert, Oriented Labs: CBC, BMP 07/20/19 07:05 07/22/19 06:20 INR, PTT INR 1.48 (0.83-1.09) H 07/14/19 22:46 Assessment/Plan DATA: 07/2015 Cardiac cath - Right-Sided Pressures are Increased, Mild Pulmonary Hypertension (pa mean 30), PVRI is mildly increased - 5, PCW is increased- 18, Decreased Cardiac Output ~5.6 liter/min Coronary Anatomy : I Vessel CAD (RCA) LV Function/Aorta : Moderate systolic LV Dysfunction ~EF 35% echo 06/2019: mod conc LVH, low nl LV function, restrictive physiology. mildly dilated RV, mod reduced RV systolic function. LA mod dilated, RA sev dilated. mild AI/MR, RVSP >60 mmHg mibi 09/2018 diaphragmatic attenuation, nl EF, no ischemia EKG: afib, rate controlled, no ischemic changes CXR 07/16, 07/18: no vasc redistrib, diffuse hazy infiltrates bilat lower lung tang, bases cut off--new vs 07/14 (no progressive changes on last cxr) ASSESSMENT/PLAN 79yo with chronic diastolic HF, afib, cad s/p remote pci (2010 per pt), htn, hld , ckd, CVA ( residual BL motor weakness), seizure p/w dyspnea, edema hypothermia, alt mental status, ? PNA: - ? source--possible PNA per ID. CXR worsened since admission, hazy bilat infiltrates ? CHF vs PNA - f/u CXRs with diuresis--if infiltrates persist, rec CT chest if pt can cooperate sufficiently - CT head neg acute on chronic combined systolic and diastolic HF, severe pulm HTN : - history of systolic dysfunction with nl LV function on mibi 09/2018 - echo shows low nl LV function and restrictive physiology - CXR ? congestion appearance (vs PNA)--monitor CXRs with diuresis - lasix 20 po bid at home--receiving 60 iv bid here. creat improving. same lasix. repeat CXR today--consider CT chest as above. LETITIA on CKD: - last creat here 2.0 (03/06) - renal fxn slightly worse here, creat improving with diuresis. likely cardiorenal syndrome component elevated trop: - indeterminate range, flat trend - EKG no ischemic changes, less likely ACS - likely demand in setting of HF exac Afib: - not on AC due to history of anemia, GI bleed - rate controlled off av sravanthi blockade - hx of slow ventricular rate on coreg - same plan CAD hx prior PCI : - S/p Cardiac cath 07/20/15 with Non Obstructive CAD, mibi no ischemia 09/2018 - not on antiplatelets given history of anemia - cont statin - no concern of active ischemia htn: - bp suboptimal, reasonable - target <130/80 - volume overloaded--improving with diuresis - cont amlodipine. -Cont Carvedilol anemia: - manage per primary
--- NOTE | 2019-07-22 17:03 | PN ---
Progress Note (short form) - Note Progress Note: alert feels well no complaints reports he is an invalid and does not ambulate at home! Vital Signs Period Temp Pulse Resp BP Sys/Hair Pulse Ox Last 24 Hr 96.6 F-97.7 F 80-94 20-22 145-150/76-96 97 cor-rrr lungs decreased bs at bases abd soft,nt ext +edema cxray fluid/altelectasis CBC, BMP 07/20/19 07:05 07/22/19 06:20 Microbiology 07/16/19 11:58 Blood - Peripheral Venous Blood Culture - Final NO GROWTH AFTER 5 DAYS INCUBATION 07/16/19 11:46 Blood - Peripheral Venous Blood Culture - Final NO GROWTH AFTER 5 DAYS INCUBATION 07/16/19 18:05 Urine For Antigen Detection Legionella Antigen - Final 07/16/19 18:05 Urine For Antigen Detection Streptococcus pneumoniae Antigen (M - Final 07/14/19 22:25 Urine - Urine - Catheterized Urine Culture - Final NO GROWTH OBTAINED a/p Hypercapneic respiratory failure acute on chronic CHF-on iv lasix-continues to gain weight? suspect xray findings represent CHF suspect copd-former smoker day #7 antibiotics, will d/c -no fevers, normal wbc ckd/dayana please call back if needed Problem List - Problems (1) Hypercapnic respiratory failure Code(s): J96.92 - RESPIRATORY FAILURE, UNSPECIFIED WITH HYPERCAPNIA (2) CHF exacerbation Code(s): I50.9 - HEART FAILURE, UNSPECIFIED Qualifiers: Heart failure type: unspecified Qualified Code(s): I50.9 - Heart failure, unspecified (3) Pneumonia Code(s): J18.9 - PNEUMONIA, UNSPECIFIED ORGANISM (4) CKD (chronic kidney disease) Code(s): N18.9 - CHRONIC KIDNEY DISEASE, UNSPECIFIED
--- NOTE | 2019-07-22 18:47 | PN ---
Progress Note, Physician History of Present Illness: Pt seen and examined at bedside. He feels that his breathing is improving. - Current Medication List Current Medications: Active Medications Albuterol/Ipratropium (Duoneb -) 1 amp NEB RQID [facility] Last Admin: 07/22/19 17:00 Dose: 1 amp Amlodipine Besylate (Norvasc -) 5 mg PO DAILY [facility] Last Admin: 07/22/19 09:24 Dose: 5 mg Carvedilol (Coreg -) 6.25 mg PO BID [facility] Last Admin: 07/22/19 09:25 Dose: 6.25 mg Furosemide (Lasix Injection -) 60 mg IVPUSH BID@0600,1400 [facility] Last Admin: 07/22/19 13:19 Dose: 60 mg Insulin Aspart (Novolog Vial Sliding Scale -) 1 vial SQ ACHS [facility]; Protocol Last Admin: 07/22/19 16:31 Dose: 2 units Levetiracetam (Keppra -) 500 mg PO BID [facility] Last Admin: 07/22/19 09:24 Dose: 500 mg Levothyroxine Sodium (Synthroid -) 25 mcg PO DAILY@0700 [facility] Last Admin: 07/22/19 06:29 Dose: 25 mcg Mycophenolate Mofetil (Cellcept -) 500 mg PO DAILY [facility] Last Admin: 07/22/19 09:24 Dose: 500 mg Prednisone (Deltasone -) 30 mg PO DAILY [facility] Rosuvastatin Calcium (Crestor -) 10 mg PO HS [facility] Last Admin: 07/21/19 21:25 Dose: 10 mg Tamsulosin HCl (Flomax -) 0.4 mg PO DAILY@0830 [facility] Last Admin: 07/22/19 08:25 Dose: 0.4 mg - Objective Vital Signs: Vital Signs Temperature 97.6 F 07/22/19 18:00 Pulse Rate 80 07/22/19 18:00 Respiratory Rate 20 07/22/19 18:00 Blood Pressure 133/74 07/22/19 18:00 O2 Sat by Pulse Oximetry (%) 97 07/22/19 09:00 Constitutional: Yes: Calm Eyes: Yes: Conjunctiva Clear HENT: Yes: Atraumatic Neck: Yes: Supple Cardiovascular: Yes: S1, S2 Respiratory: Yes: On Nasal O2 Gastrointestinal: Yes: Soft Genitourinary: Yes: WNL Musculoskeletal: Yes: WNL Extremities: Yes: WNL Edema: Yes Edema: LLE: 1+, RLE: 1+ Neurological: Yes: Oriented Psychiatric: Yes: Oriented Labs: CBC, BMP 07/20/19 07:05 07/22/19 06:20 INR, PTT INR 1.48 (0.83-1.09) H 07/14/19 22:46 Problem List - Problems (1) Altered mental state Code(s): R41.82 - ALTERED MENTAL STATUS, UNSPECIFIED (2) CHF exacerbation Code(s): I50.9 - HEART FAILURE, UNSPECIFIED Qualifiers: Heart failure type: unspecified Qualified Code(s): I50.9 - Heart failure, unspecified (3) CHF exacerbation Code(s): I50.9 - HEART FAILURE, UNSPECIFIED (4) CKD (chronic kidney disease) Code(s): N18.9 - CHRONIC KIDNEY DISEASE, UNSPECIFIED Assessment/Plan Current Medications Generic Name Dose Route Start Last Admin Trade Name Freq PRN Reason Stop Dose Admin Albuterol/Ipratropium 1 amp 07/19/19 08:00 07/22/19 17:00 Duoneb - NEB 1 amp RQID [facility] Administration Amlodipine Besylate 5 mg 07/19/19 10:00 07/22/19 09:24 Norvasc - PO 5 mg DAILY [facility] Administration Carvedilol 6.25 mg 07/21/19 11:45 07/22/19 09:25 Coreg - PO 6.25 mg BID [facility] Administration Furosemide 60 mg 07/18/19 13:48 07/22/19 13:19 Lasix Injection - IVPUSH 60 mg BID@0600,1400 [facility] Administration Insulin Aspart 1 vial 07/21/19 11:00 07/22/19 16:31 Novolog Vial Sliding Scale - SQ 2 units ACHS [facility] Administration Protocol Levetiracetam 500 mg 07/19/19 10:00 07/22/19 09:24 Keppra - PO 500 mg BID [facility] Administration Levothyroxine Sodium 25 mcg 07/20/19 07:00 07/22/19 06:29 Synthroid - PO 25 mcg DAILY@0700 [facility] Administration Mycophenolate Mofetil 500 mg 07/19/19 10:00 07/22/19 09:24 Cellcept - PO 500 mg DAILY [facility] Administration Prednisone 30 mg 07/23/19 10:00 Deltasone - PO DAILY [facility] Rosuvastatin Calcium 10 mg 07/19/19 22:00 07/21/19 21:25 Crestor - PO 10 mg HS [facility] Administration Tamsulosin HCl 0.4 mg 07/19/19 08:30 07/22/19 08:25 Flomax - PO 0.4 mg DAILY@0830 [facility] Administration Impression 1. CKD 2. CHF 3. BPH 4. a. fib 5. CAD 6. epilepsy 7. proteinuria 8. anemia 9. acute resp failure 10. hypernatremia Plan - cont lasix - repeat labs in am - cxr reviewed - volume status improving - mental status improved - monitor hg Dr Tipton
[2019-07-22] MEDS: ROSUVASTATIN CA 10 MG TABLET (FP) PO SCH (21:05)
--- NOTE | 2019-07-23 00:15 | CONSULT ---
Consult Consult Specialty:: endocrine Referred by:: dr.[email or web address] mena Reason for Consultation:: DMT2,hypothyroidism,sp pituitary tumor resection - History of Present Illness Chief Complaint: weak lethargic History of Present Illness: 79 y/o M with hx of DMT2,hypothyroidism,sp pituitary surgery for adenoma, systolic congestive heart failure EF 40-45%, moderate mitral regurgitation , stage III chronic kidney disease (creatinine highest at 2.2 ), colon cancer s/p partial resection, CAD s/p stents, atrial fibrillation (off AC secondary to GI bleed), CVA with right-sided weakness, BPH and seizure history who presented with chf ,anasarca,and dyspnea,weakness,and anemia,poor historian, - 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, Seizure Cardio/Vascular: Yes: CAD, CHF, HTN, Hyperlipdemia Gastrointestinal: Yes: GI Bleed, Other (Colon cancer) Renal/: Yes: Renal Inusuff (see HPI) Endocrine: Yes: Diabetes Mellitus, Other (pituitary adenoma resection) - Past Surgical History Past Surgical History: Yes: Colectomy (partial given h/o colon cancer), Stent (s /p one vessel PCI) - Alcohol/Substance Use Hx Alcohol Use: No - Smoking History Smoking history: Never smoked Have you smoked in the past 12 months: No Aproximately how many cigarettes per day: 4 If you are a former smoker, when did you quit?: 2009 - Social History Usual Living Arrangement: With Spouse (in elevator apartment) 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) History of Recent Travel: No Home Medications - Allergies Allergies/Adverse Reactions: Allergies Allergy/AdvReac Type Severity Reaction Status Date / Time No Known Allergies Allergy Verified 07/14/19 21:45 - Home Medications Home Medications: Ambulatory Orders Amlodipine Besylate [Norvasc -] 5 mg PO DAILY 07/15/19 Furosemide [Lasix] 20 mg PO BID 07/15/19 Levothyroxine [Synthroid -] 25 mcg PO DAILY 07/15/19 Mycophenolate Mofetil [Cellcept -] 500 mg PO DAILY 07/15/19 Niacin [Niaspan] 750 mg PO DAILY 07/15/19 Tamsulosin HCl [Flomax] 0.4 mg PO DAILY 07/15/19 levETIRAcetam [Keppra -] 500 mg PO BID 07/15/19 predniSONE [Deltasone -] 40 mg PO BID 07/15/19 Physical Exam Vital Signs: Vital Signs Temperature 97.5 F L 07/22/19 21:31 Pulse Rate 79 07/22/19 21:31 Respiratory Rate 20 07/22/19 21:31 Blood Pressure 134/84 07/22/19 21:31 O2 Sat by Pulse Oximetry (%) 97 07/22/19 09:00 Constitutional: Yes: Anxious Eyes: Yes: EOM Intact HENT: Yes: Normocephalic Neck: Yes: Trachea Midline Cardiovascular: Yes: Tachycardia, Murmur Respiratory: Yes: On Nasal O2, SOB, SOB on Exertion, Tachypnea Gastrointestinal: Yes: Normal Bowel Sounds ...Rectal Exam: Yes: Deferred Renal/: Yes: WNL Musculoskeletal: Yes: Joint Stiffness, Muscle Weakness Extremities: Yes: Cold, Delayed Capillary Refill Edema: LLE: 1+, RLE: 1+ Neurological: Yes: Alert Labs: CBC, BMP 07/20/19 07:05 07/22/19 06:20 Problem List - Problems (1) Anasarca Problems reviewed: Yes Code(s): R60.1 - GENERALIZED EDEMA (2) CHF exacerbation Problems reviewed: Yes Code(s): I50.9 - HEART FAILURE, UNSPECIFIED Qualifiers: Heart failure type: unspecified Qualified Code(s): I50.9 - Heart failure, unspecified (3) Hypercapnic respiratory failure Problems reviewed: Yes Code(s): J96.92 - RESPIRATORY FAILURE, UNSPECIFIED WITH HYPERCAPNIA (4) Hypothermia Code(s): T68.XXXA - HYPOTHERMIA, INITIAL ENCOUNTER (5) Lethargy Code(s): R53.83 - OTHER FATIGUE (6) Pneumonia Code(s): J18.9 - PNEUMONIA, UNSPECIFIED ORGANISM Assessment/Plan Current Active Problems hypothyroidism/pituitary surgery dmt2,steroid sensitive Altered mental state (Acute) Anasarca (Acute) Anemia (Acute) CHF exacerbation (Acute) Hypercapnic respiratory failure (Acute) Hypothermia (Acute) Lethargy (Acute) Pneumonia (Acute) Abnormal Lab Results 07/22/19 07/22/19 06:20 09:00 Carbon Dioxide 33 H Anion Gap 7 L BUN 74.8 H Creatinine 2.2 H Random Glucose 233 H Hemoglobin A1c % 8.0 H Calcium 8.2 L Albumin 2.5 L Laboratory Results - last 24 hr 07/22/19 07/22/19 07/22/19 06:20 06:27 09:00 Sodium 137 Potassium 4.4 Chloride 98 Carbon Dioxide 33 H Anion Gap 7 L BUN 74.8 H Creatinine 2.2 H Est GFR (CKD-EPI)AfAm 31.40 Est GFR (CKD-EPI)NonAf 27.09 POC Glucometer 219 Random Glucose 233 H Hemoglobin A1c % 8.0 H Calcium 8.2 L Albumin 2.5 L 07/22/19 07/22/19 07/22/19 11:31 16:24 21:03 Sodium Potassium Chloride Carbon Dioxide Anion Gap BUN Creatinine Est GFR (CKD-EPI)AfAm Est GFR (CKD-EPI)NonAf POC Glucometer 235 239 368 Random Glucose Hemoglobin A1c % Calcium Albumin plan; ck tsh,free t4 continue adrenal support taper as needed bgm qid novolog scale levemir 20 units am daily
[2019-07-23] MEDS: FUROSEMIDE 40 MG/4 ML INJECTABLE VIAL IVPUSH SCH ×2 (06:03→14:23)
[2019-07-23] MEDS: LEVOTHYROXINE NA 25 MCG TABLET (FP) PO SCH (06:04)
[2019-07-23] MEDS: INSULIN SLIDING SCALE (NOVOLOG) 1 VIAL SQ SCH ×4 (06:09→21:31)
[2019-07-23] MEDS ORDERED: INSULIN (LEVEMIR) 100 UNITS/ML UNITS SQ SCH (07:00)
[2019-07-23] MEDS: ALBUTEROL SO4 2.5/IPRATROPIUM 0.5 INH SOL 3 ML VIAL.NEB. NEB SCH ×4 (07:20→20:34)
[2019-07-23 07:56] LABS: BLOOD UREA NITROGEN 78.3 mg/dL (7-18); CALCIUM 8.1 mg/dL (8.5-10.1); CREATININE 2.3 mg/dL (0.55-1.3); POTASSIUM 4.2 mmol/L (3.5-5.1)
--- NOTE | 2019-07-23 08:18 | PN ---
Progress Note (short form) - Note Progress Note: Awake and alert this AM. Says he is hungry. Denies shortness of breath, chest pain. Saturating well on nasal cannula. No acute events overnight. Intake & Output 07/20/19 07/21/19 07/22/19 07/23/19 23:59 23:59 23:59 23:59 Intake Total 500 910 410 0 Output Total 1050 Balance -550 910 410 0 Weight 263 lb 4 oz 264 lb 12.8 oz 263 lb 1 oz Last Vital Signs Temp Pulse Resp BP Pulse Ox 97.6 F 85 20 124/83 98 07/23/19 05:00 07/23/19 05:00 07/23/19 05:00 07/23/19 05:00 07/22/19 21:00 Active Medications Albuterol/Ipratropium (Duoneb -) 1 amp NEB RQID [facility] Last Admin: 07/23/19 07:20 Dose: 1 amp Amlodipine Besylate (Norvasc -) 5 mg PO DAILY [facility] Carvedilol (Coreg -) 6.25 mg PO BID [facility] Last Admin: 07/22/19 21:05 Dose: 6.25 mg Furosemide (Lasix Injection -) 60 mg IVPUSH BID@0600,1400 [facility] Insulin Aspart (Novolog Vial Sliding Scale -) [address] [facility]; Protocol Last Admin: 07/23/19 06:09 Dose: 5 units Insulin Detemir (Levemir Vial) 20 units SQ AM [facility] Last Admin: 07/23/19 06:04 Dose: 20 units Levetiracetam (Keppra -) 500 mg PO BID [facility] Levothyroxine Sodium (Synthroid -) 25 mcg PO DAILY@0700 [facility] Mycophenolate Mofetil (Cellcept -) 500 mg PO DAILY [facility] Prednisone (Deltasone -) 30 mg PO DAILY [facility] Rosuvastatin Calcium (Crestor -) 10 mg PO HS [facility] Tamsulosin HCl (Flomax -) 0.4 mg PO DAILY@0830 [facility] Gen: NAD at rest Heart: RRR Lung: decreased breath sounds at the bases Abd: soft, nontender Ext: no edema Laboratory Results - last 24 hr 07/22/19 07/22/19 07/22/19 06:20 09:00 11:31 Sodium 137 Potassium 4.4 Chloride 98 Carbon Dioxide 33 H Anion Gap 7 L BUN 74.8 H Creatinine 2.2 H Est GFR (CKD-EPI)AfAm 31.40 Est GFR (CKD-EPI)NonAf 27.09 POC Glucometer 235 Random Glucose 233 H Hemoglobin A1c % 8.0 H Calcium 8.2 L Albumin 2.5 L 07/22/19 07/22/19 07/23/19 16:24 21:03 06:08 Sodium Potassium Chloride Carbon Dioxide Anion Gap BUN Creatinine Est GFR (CKD-EPI)AfAm Est GFR (CKD-EPI)NonAf POC Glucometer 239 368 243 Random Glucose Hemoglobin A1c % Calcium Albumin 07/23/19 06:52 Sodium 137 Potassium 4.2 Chloride 98 Carbon Dioxide 33 H Anion Gap 6 L BUN 78.3 H Creatinine 2.3 H Est GFR (CKD-EPI)AfAm 29.75 Est GFR (CKD-EPI)NonAf 25.67 POC Glucometer Random Glucose 237 H Hemoglobin A1c % Calcium 8.1 L Albumin A/P Acute Hypercapneic Respiratory Failure improving Altered Mental Status improving Pneumonia likely Aspiration Acute COPD Exacerbation Acute on Chronic Diastolic Heart Failure Pulmonary HTN Acute on Chronic Renal Failure Atrial Fibrillation +Troponins likely Demand Ischemia CAD HTN Hyperlipidemia CKD BPH Seizure Disorder h/o CVA Anemia - O2 to keep SpO2 >90% - continue antibiotics - Lasix IVP BID - monitor urine output, creatinine - rate control - off anticoagulation due h/o GI bleed - Prednisone OD Dr Contreras
[2019-07-23] MEDS: CARVEDILOL 6.25 MG TABLET (FP) PO SCH ×2 (10:36→21:30)
[2019-07-23] MEDS: amLODIPine BESYLATE 5 MG TABLET (FP) PO SCH (10:36)
[2019-07-23] MEDS: levETIRAcetam 500 MG TABLET (FP) PO SCH ×2 (10:36→21:29)
[2019-07-23] MEDS: MYCOPHENOLATE MOFETIL 500 MG TABLET PO SCH (10:36)
[2019-07-23] MEDS: predniSONE 10 MG TABLET (UD) PO SCH (10:36)
[2019-07-23] MEDS: TAMSULOSIN HCL 0.4 MG CAP PO SCH (10:36)
--- NOTE | 2019-07-23 11:00 | PN ---
Progress Note, Physician Chief Complaint: SOB CHF LETITIA Anemia History of Present Illness: NAD Still has some SOB Still on IV furosemide [address] done this am, results pending - Current Medication List Current Medications: Active Medications Albuterol/Ipratropium (Duoneb -) 1 amp NEB RQID [facility] Last Admin: 07/23/19 07:20 Dose: 1 amp Amlodipine Besylate (Norvasc -) 5 mg PO DAILY [facility] Last Admin: 07/23/19 10:36 Dose: 5 mg Carvedilol (Coreg -) 6.25 mg PO BID [facility] Last Admin: 07/23/19 10:36 Dose: 6.25 mg Furosemide (Lasix Injection -) 60 mg IVPUSH BID@0600,1400 [facility] Ferric Carboxymaltose 750 mg/ (Sodium Chloride) 265 mls @ 530 mls/hr IVPB ONCE ONE Stop: 07/23/19 11:23 Insulin Aspart (Novolog Vial Sliding Scale -) [address] [facility]; Protocol Last Admin: 07/23/19 06:09 Dose: 5 units Insulin Detemir (Levemir Vial) 20 units SQ AM [facility] Last Admin: 07/23/19 06:04 Dose: 20 units Levetiracetam (Keppra -) 500 mg PO BID [facility] Last Admin: 07/23/19 10:36 Dose: 500 mg Levothyroxine Sodium (Synthroid -) 25 mcg PO DAILY@0700 [facility] Mycophenolate Mofetil (Cellcept -) 500 mg PO DAILY [facility] Last Admin: 07/23/19 10:36 Dose: 500 mg Pantoprazole Sodium (Protonix -) 40 mg PO DAILY [facility] Polysaccharide Iron Complex (Niferex-150 -) 150 mg PO DAILY [facility] Prednisone (Deltasone -) 30 mg PO DAILY [facility] Last Admin: 07/23/19 10:36 Dose: 30 mg Rosuvastatin Calcium (Crestor -) 10 mg PO HS [facility] Tamsulosin HCl (Flomax -) 0.4 mg PO DAILY@0830 [facility] Last Admin: 07/23/19 10:36 Dose: 0.4 mg - Objective Vital Signs: Vital Signs Temperature 97.6 F 07/23/19 05:00 Pulse Rate 85 07/23/19 05:00 Respiratory Rate 20 07/23/19 05:00 Blood Pressure 124/83 07/23/19 05:00 O2 Sat by Pulse Oximetry (%) 98 07/22/19 21:00 Constitutional: Yes: Well Nourished, No Distress, Calm, Obese Cardiovascular: Yes: Regular Rate and Rhythm Respiratory: Yes: Regular, On Nasal O2, SOB on Exertion Gastrointestinal: Yes: Normal Bowel Sounds, Soft, Abdomen, Obese Genitourinary: Yes: Incontinence Musculoskeletal: Yes: Muscle Weakness Edema: Yes Edema: LLE: Trace, RLE: Trace Peripheral Pulses WNL: Yes Neurological: Yes: Alert, Confusion, Pre-Existing Deficit Psychiatric: Yes: Alert Labs: CBC, BMP 07/20/19 07:05 07/23/19 06:52 INR, PTT INR 1.48 (0.83-1.09) H 07/14/19 22:46 Problem List - Problems (1) Altered mental state Assessment/Plan: -2/2 to pneumonia -improved Problems reviewed: Yes Code(s): R41.82 - ALTERED MENTAL STATUS, UNSPECIFIED (2) Anemia Assessment/Plan: -LINDA -Start Iron polysaccharide 150 mg po daily -Injectafer one dose -check stool ob Problems reviewed: Yes Code(s): D64.9 - ANEMIA, UNSPECIFIED (3) CHF exacerbation Assessment/Plan: -Furosemide BID -Cardiology and Pulmonary on board -CXR shows atelectasis or scarring in LLL, atelectasis or infiltrate at medial right base -CT chest done this AM, results pending -Echo 50-55% -1 L fluid restriction -daily weights -strict I&O -low sodium diabetic diet Problems reviewed: Yes Code(s): I50.9 - HEART FAILURE, UNSPECIFIED Qualifiers: Heart failure type: unspecified Qualified Code(s): I50.9 - Heart failure, unspecified (4) Pneumonia Assessment/Plan: -Pulmonary on board -CXR shows atelectasis or scarring in LLL, atelectasis or infiltrate at medial right base -Bronchodilators -PO medrol tapering dose -Add PPI for GI ppx -keep SpO2 >90% -O2 via NC, HFOT -Unasyn completed -CT chest done today, results pending -no leukocytosis -afebrile Code(s): J18.9 - PNEUMONIA, UNSPECIFIED ORGANISM (5) Acute on chronic renal insufficiency Assessment/Plan: -Cr stable -Nephrology on board -Monitor daily BMP Problems reviewed: Yes Code(s): N28.9 - DISORDER OF KIDNEY AND URETER, UNSPECIFIED; N18.9 - CHRONIC KIDNEY DISEASE, UNSPECIFIED (6) Diabetes mellitus Assessment/Plan: -BGM AC HS -A1c at 8.0 -ISS -Started on Levemir 20 U QAM -Endocrinology consult appreciated -Diabetic/sodium diet Problems reviewed: Yes Code(s): E11.9 - TYPE 2 DIABETES MELLITUS WITHOUT COMPLICATIONS (7) Obesity, Class III, BMI 40-49.9 (morbid obesity) Assessment/Plan: -low calorie diabetic/sodium diet -RD consult Problems reviewed: Yes Code(s): E66.01 - MORBID (SEVERE) OBESITY DUE TO EXCESS CALORIES Assessment/Plan see problem list did poorly with PT Pt refuses SNF, wants to go home when ready with [facility]
[2019-07-23] MEDS ORDERED: FERRIC CARBOXYMALTOSE 750 MG in SODIUM CHLORIDE 250 ML IVPB ONE (11:30)
[2019-07-23] MEDS: IRON POLYSACCHARIDES 150 MG CAPSULE PO SCH (12:01)
[2019-07-23] MEDS: PANTOPRAZOLE 40 MG TABLET PO SCH (12:01)
--- NOTE | 2019-07-23 13:53 | PN ---
Progress Note, Physician History of Present Illness: Pt seen and examined at bedside. He is awake and alert. He says that he feels better. - Current Medication List Current Medications: Active Medications Albuterol/Ipratropium (Duoneb -) 1 amp NEB RQID [facility] Last Admin: 07/23/19 11:25 Dose: 1 amp Amlodipine Besylate (Norvasc -) 5 mg PO DAILY [facility] Last Admin: 07/23/19 10:36 Dose: 5 mg Carvedilol (Coreg -) 6.25 mg PO BID [facility] Last Admin: 07/23/19 10:36 Dose: 6.25 mg Furosemide (Lasix Injection -) 60 mg IVPUSH BID@0600,1400 [facility] Insulin Aspart (Novolog Vial Sliding Scale -) 1 vial SQ ACHS [facility]; Protocol Last Admin: 07/23/19 12:01 Dose: 5 units Insulin Detemir (Levemir Vial) 20 units SQ AM [facility] Last Admin: 07/23/19 06:04 Dose: 20 units Levetiracetam (Keppra -) 500 mg PO BID [facility] Last Admin: 07/23/19 10:36 Dose: 500 mg Levothyroxine Sodium (Synthroid -) 25 mcg PO DAILY@0700 [facility] Mycophenolate Mofetil (Cellcept -) 500 mg PO DAILY [facility] Last Admin: 07/23/19 10:36 Dose: 500 mg Pantoprazole Sodium (Protonix -) 40 mg PO DAILY [facility] Last Admin: 07/23/19 12:01 Dose: 40 mg Polysaccharide Iron Complex (Niferex-150 -) 150 mg PO DAILY [facility] Last Admin: 07/23/19 12:01 Dose: 150 mg Prednisone (Deltasone -) 30 mg PO DAILY [facility] Last Admin: 07/23/19 10:36 Dose: 30 mg Rosuvastatin Calcium (Crestor -) 10 mg PO [facility] Tamsulosin HCl (Flomax -) 0.4 mg PO DAILY@0830 [facility] Last Admin: 07/23/19 10:36 Dose: 0.4 mg - Objective Vital Signs: Vital Signs Temperature 97.9 F 07/23/19 09:00 Pulse Rate 68 07/23/19 09:00 Respiratory Rate 20 07/23/19 09:00 Blood Pressure 136/79 07/23/19 09:00 O2 Sat by Pulse Oximetry (%) 98 07/23/19 09:00 Constitutional: Yes: Calm Eyes: Yes: Conjunctiva Clear HENT: Yes: Atraumatic Cardiovascular: Yes: S1, S2 Respiratory: Yes: On Nasal O2, Rhonchi Gastrointestinal: Yes: Soft Genitourinary: Yes: Incontinence Musculoskeletal: Yes: WNL Edema: Yes Edema: LLE: 2+, RLE: 2+ Neurological: Yes: Oriented Psychiatric: Yes: Oriented Labs: CBC, BMP 07/20/19 07:05 07/23/19 06:52 INR, PTT INR 1.48 (0.83-1.09) H 07/14/19 22:46 Problem List - Problems (1) Altered mental state Code(s): R41.82 - ALTERED MENTAL STATUS, UNSPECIFIED (2) CHF exacerbation Code(s): I50.9 - HEART FAILURE, UNSPECIFIED Qualifiers: Heart failure type: unspecified Qualified Code(s): I50.9 - Heart failure, unspecified (3) CHF exacerbation Code(s): I50.9 - HEART FAILURE, UNSPECIFIED (4) CKD (chronic kidney disease) Code(s): N18.9 - CHRONIC KIDNEY DISEASE, UNSPECIFIED Assessment/Plan Current Medications Generic Name Dose Route Start Last Admin Trade Name Freq PRN Reason Stop Dose Admin Albuterol/Ipratropium 1 amp 07/23/19 08:00 07/23/19 11:25 Duoneb - NEB 1 amp RQID [facility] Administration Amlodipine Besylate 5 mg 07/23/19 10:00 07/23/19 10:36 Norvasc - PO 5 mg DAILY [facility] Administration Carvedilol 6.25 mg 07/21/19 11:45 07/23/19 10:36 Coreg - PO 6.25 mg BID [facility] Administration Furosemide 60 mg 07/23/19 14:00 Lasix Injection - IVPUSH BID@0600,1400 [facility] Insulin Aspart 1 vial 07/23/19 07:00 07/23/19 12:01 Novolog Vial Sliding Scale - SQ 5 units ACHS [facility] Administration Protocol Insulin Detemir 20 units 07/23/19 07:00 07/23/19 06:04 Levemir Vial SQ 20 units AM [facility] Administration Levetiracetam 500 mg 07/23/19 10:00 07/23/19 10:36 Keppra - PO 500 mg BID [facility] Administration Levothyroxine Sodium 25 mcg 07/24/19 07:00 Synthroid - PO DAILY@0700 [facility] Mycophenolate Mofetil 500 mg 07/23/19 10:00 07/23/19 10:36 Cellcept - PO 500 mg DAILY [facility] Administration Pantoprazole Sodium 40 mg 07/23/19 11:00 07/23/19 12:01 Protonix - PO 40 mg DAILY [facility] Administration Polysaccharide Iron Complex 150 mg 07/23/19 11:00 07/23/19 12:01 Niferex-150 - PO 150 mg DAILY [facility] Administration Prednisone 30 mg 07/23/19 10:00 07/23/19 10:36 Deltasone - PO 30 mg DAILY [facility] Administration Rosuvastatin Calcium 10 mg 07/23/19 22:00 Crestor - PO HS [facility] Tamsulosin HCl 0.4 mg 07/23/19 08:30 07/23/19 10:36 Flomax - PO 0.4 mg DAILY@0830 [facility] Administration Impression 1. CKD 2. CHF 3. BPH 4. a. fib 5. CAD 6. epilepsy 7. proteinuria 8. anemia 9. acute resp failure 10. 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
[2019-07-23] MEDS ORDERED: FUROSEMIDE 40 MG/4 ML INJECTABLE VIAL IVPUSH SCH (14:00)
--- NOTE | 2019-07-23 14:59 | PN ---
Progress Note (short form) - Note Progress Note: Chief Complaint: no cp sob palps dizzy Current Medications Generic Name Dose Route Start Last Admin Trade Name Chineduq PRN Reason Stop Dose Admin Albuterol/Ipratropium 1 amp 07/23/19 08:00 07/23/19 11:25 Duoneb - NEB 1 amp RQID MICHAEL Administration Amlodipine Besylate 5 mg 07/23/19 10:00 07/23/19 10:36 Norvasc - PO 5 mg DAILY MICHAEL Administration Carvedilol 6.25 mg 07/21/19 11:45 07/23/19 10:36 Coreg - PO 6.25 mg BID MICHAEL Administration Furosemide 80 mg 07/23/19 14:00 07/23/19 14:23 Lasix Injection - IVPUSH 80 mg BID@0600,1400 [facility] Administration Insulin Aspart 1 vial 07/23/19 07:00 07/23/19 12:01 Novolog Vial Sliding Scale - SQ 5 units ACHS MICHAEL Administration Protocol Insulin Detemir 20 units 07/23/19 07:00 07/23/19 06:04 Levemir Vial SQ 20 units AM MICHAEL Administration Levetiracetam 500 mg 07/23/19 10:00 07/23/19 10:36 Keppra - PO 500 mg BID MICHAEL Administration Levothyroxine Sodium 25 mcg 07/24/19 07:00 Synthroid - PO DAILY@0700 [facility] Mycophenolate Mofetil 500 mg 07/23/19 10:00 07/23/19 10:36 Cellcept - PO 500 mg DAILY MICHAEL Administration Pantoprazole Sodium 40 mg 07/23/19 11:00 07/23/19 12:01 Protonix - PO 40 mg DAILY [facility] Administration Polysaccharide Iron Complex 150 mg 07/23/19 11:00 07/23/19 12:01 Niferex-150 - PO 150 mg DAILY [facility] Administration Prednisone 30 mg 07/23/19 10:00 07/23/19 10:36 Deltasone - PO 30 mg DAILY [facility] Administration Rosuvastatin Calcium 10 mg 07/23/19 22:00 Crestor - PO HS MICHAEL Tamsulosin HCl 0.4 mg 07/23/19 08:30 07/23/19 10:36 Flomax - PO 0.4 mg DAILY@0830 [facility] Administration - Objective Vital Signs: Vital Signs Period Temp Pulse Resp BP Sys/Hair Pulse Ox Last 24 Hr 97.4 F-97.9 F 68-85 20-21 124-136/74-84 98-98 Constitutional: Yes: No Distress Cardiovascular: Yes: Pulse Irregular Respiratory: Yes:cta bl nl eff Gastrointestinal: Yes: Soft (NT) Edema: Yes Edema: LLE: 1+, RLE: 1+ Neurological: Yes: Alert, Oriented no jaundice diaphoresis Labs: Laboratory Last Values WBC 9.1 K/mm3 (4.0-10.0) 07/20/19 07:05 Corrected WBC (auto) Cancelled 07/14/19 19:10 RBC 3.74 M/mm3 (4.00-5.60) L 07/20/19 07:05 Hgb 10.4 GM/dL (11.7-16.9) L 07/20/19 07:05 Hct 33.2 % (35.4-49) L 07/20/19 07:05 MCV 88.6 fl (80-96) 07/20/19 07:05 MCH 27.8 pg (25.7-33.7) 07/20/19 07:05 MCHC 31.4 g/dl (32.0-35.9) L 07/20/19 07:05 RDW 15.1 % (11.9-15.9) 07/20/19 07:05 Plt Count 152 K/MM3 (134-434) 07/20/19 07:05 MPV 7.0 fl (7.5-11.1) L 07/20/19 07:05 Absolute Neuts (auto) 8.8 K/mm3 (1.5-8.0) H 07/19/19 06:45 Neutrophils % 96.0 % (42.8-82.8) H 07/19/19 06:45 Neutrophils % (Manual) 87.9 % (42.8-82.8) H 07/19/19 06:45 Band Neutrophils % 7.1 % 07/19/19 06:45 Lymphocytes % 2.1 % (8-40) L 07/19/19 06:45 Lymphocytes % (Manual) 1.0 % (8-40) L D 07/19/19 06:45 Monocytes % 1.8 % (3.8-10.2) L 07/19/19 06:45 Monocytes % (Manual) 3 % (3.8-10.2) L 07/19/19 06:45 Eosinophils % 0.0 % (0-4.5) 07/19/19 06:45 Eosinophils % (Manual) 0.0 % (0-4.5) 07/19/19 06:45 Basophils % 0.1 % (0-2.0) 07/19/19 06:45 Basophils % (Manual) 0.0 % (0-2.0) 07/19/19 06:45 Myelocytes % (Man) 0 % (0-2) 07/19/19 06:45 Promyelocytes % (Man) 0 % (0-2) 07/19/19 06:45 Blast Cells % (Manual) 0 % (0-0) 07/19/19 06:45 Nucleated RBC % 1 % (0-0) H 07/19/19 06:45 Metamyelocytes 0 % (0-2) 07/19/19 06:45 Hypochromia 0 07/19/19 06:45 Platelet Estimate Decreased 07/19/19 06:45 Platelet Comment Present 07/17/19 05:40 Polychromasia 1+ 07/19/19 06:45 Poikilocytosis 1+ 07/19/19 06:45 Basophilic Stippling 1+ 07/19/19 06:45 Anisocytosis 1+ 07/19/19 06:45 Microcytosis 1+ 07/19/19 06:45 Macrocytosis 0 07/19/19 06:45 Spherocytes 1+ 07/19/19 06:45 Tear Drop Cells 1+ 07/19/19 06:45 Ovalocytes 1+ 07/19/19 06:45 [place] Cells 1+ 07/16/19 06:20 Acanthocytes (Spur) 1+ 07/17/19 05:40 PT with INR 17.50 SEC (9.7-13.0) H 07/14/19 22:46 INR 1.48 (0.83-1.09) H 07/14/19 22:46 PTT (Actin FS) 39.8 SECONDS (25.2-36.5) H 07/14/19 22:46 Anticoagulation Therapy No Result Required. 07/17/19 08:46 Puncture Site Right radial 07/17/19 08:46 ABG pH 7.32 (7.35-7.45) L 07/17/19 08:46 ABG pCO2 at Pt Temp 59.1 mmHg (35-45) H 07/17/19 08:46 ABG pO2 at Pt Temp 105 mmHg (80-100) H 07/17/19 08:46 ABG HCO3 29.5 mmol/L (22-27) H 07/17/19 08:46 ABG O2 Sat (Measured) 97.8 % (95-98) 07/17/19 08:46 ABG O2 Content 15.3 % vol 07/17/19 08:46 ABG Base Excess 2.7 meq/l (-2-2) H 07/17/19 08:46 Ishan Test Positive 07/17/19 08:46 O2 Delivery Device No Result Required. 07/17/19 08:46 Oxygen Flow Rate 30 07/17/19 08:46 Vent Mode No Result Required. 07/17/19 08:46 Vent Rate No Result Required. 07/17/19 08:46 Mechanical Rate No Result Required. 07/17/19 08:46 Pressure Support Vent No Result Required. 07/17/19 08:46 Sodium 137 mmol/L (136-145) 07/23/19 06:52 Potassium 4.2 mmol/L (3.5-5.1) 07/23/19 06:52 Chloride 98 mmol/L (98-107) 07/23/19 06:52 Carbon Dioxide 33 mmol/L (21-32) H 07/23/19 06:52 Anion Gap 6 MMOL/L (8-16) L 07/23/19 06:52 BUN 78.3 mg/dL (7-18) H 07/23/19 06:52 Creatinine 2.3 mg/dL (0.55-1.3) H 07/23/19 06:52 Est GFR (CKD-EPI)AfAm 29.75 07/23/19 06:52 Est GFR (CKD-EPI)NonAf 25.67 07/23/19 06:52 POC Glucometer 202 UNITS (80-120) 07/23/19 11:57 Random Glucose 237 mg/dL (74-106) H 07/23/19 06:52 Hemoglobin A1c % 8.0 % (4.2-6.3) H 07/22/19 09:00 Lactic Acid 0.9 mmol/L (0.4-2.0) 07/16/19 11:46 Calcium 8.1 mg/dL (8.5-10.1) L 07/23/19 06:52 Phosphorus 3.6 mg/dL (2.5-4.9) 07/19/19 06:45 Magnesium 2.1 mg/dL (1.8-2.4) 07/20/19 07:05 Iron 15 ug/dL (50-175) L 07/15/19 12:38 TIBC 286 ug/dL (250-450) 07/15/19 12:38 Iron Saturation 5 % (17.5-39) L 07/15/19 12:38 Unsaturated IBC 271 ug/dL (200-275) 07/15/19 12:38 Total Bilirubin 0.6 mg/dL (0.2-1) 07/20/19 07:05 AST 30 U/L (15-37) 07/20/19 07:05 ALT 18 U/L (13-61) 07/20/19 07:05 Alkaline Phosphatase 57 U/L (45-117) 07/20/19 07:05 Creatine Kinase 112 U/L (26-308) 07/14/19 19:10 CK-MB (CK-2) 1.7 ng/mL (0.5-3.6) 07/14/19 19:10 Troponin I 0.14 ng/ml (0.00-0.05) H 07/15/19 00:53 B-Natriuretic Peptide 82945.7 pg/ml (5-450) H 07/14/19 19:10 Total Protein 6.3 g/dl (6.4-8.2) L 07/20/19 07:05 Albumin 2.5 g/dl (3.4-5.0) L 07/22/19 06:20 Triglycerides 106 mg/dL (0-150) 07/15/19 12:38 Cholesterol 168 mg/dL (50-200) 07/15/19 12:38 Total LDL Cholesterol 97 mg/dL (5-100) 07/15/19 12:38 HDL Cholesterol 60 mg/dL (40-60) 07/15/19 12:38 TSH 0.87 uIU/ml (0.358-3.74) D 07/17/19 05:40 Urine Color Yellow 07/14/19 22:25 Urine Appearance Clear 07/14/19 22:25 Urine pH 5.0 (5.0-8.0) 07/14/19 22:25 Ur Specific [place] 1.014 (1.010-1.035) 07/14/19 22:25 Urine Protein 3+ (NEGATIVE) H 07/14/19 22:25 Urine Glucose (UA) Negative (NEGATIVE) 07/14/19 22:25 Urine Ketones Negative (NEGATIVE) 07/14/19 22:25 Urine Blood 1+ (NEGATIVE) H 07/14/19 22:25 Urine Nitrite Negative (NEGATIVE) 07/14/19 22: Urine Bilirubin Negative (NEGATIVE) 07/14/19 22: Urine Urobilinogen 1.0 mg/dL (0.2-1.0) 07/14/19 22:25 Ur Leukocyte Esterase Negative (NEGATIVE) 07/14/19 22:25 Urine WBC (Auto) 1 /hpf (0-5) 07/14/19 22:25 Urine RBC (Auto) 5 /hpf (0-4) 07/14/19 22:25 Urine Casts (Auto) 13 /lpf (0-8) 07/14/19 22:25 U Pathogenic Cast Auto none seen /lpf (NEGATIVE) 07/14/19 22:25 U Epithel Cells (Auto) 1.8 /HPF (0-5/HPF) 07/14/19 22:25 Urine Crystals (Auto) Few /hpf 07/14/19 22:25 Urine Bacteria (Auto) 0.2 /hpf (NEGATIVE) 07/14/19 22:25 Blood Type B POSITIVE 07/14/19 19:10 Antibody Screen Negative 07/14/19 19:10 07/2015 Cardiac cath - Right-Sided Pressures are Increased, Mild Pulmonary Hypertension (pa mean 30), PVRI is mildly increased - 5, PCW is increased- 18, Decreased Cardiac Output ~5.6 liter/min Coronary Anatomy : I Vessel CAD (RCA) LV Function/Aorta : Moderate systolic LV Dysfunction ~EF 35% echo 06/2019: mod conc LVH, low nl LV function, restrictive physiology. mildly dilated RV, mod reduced RV systolic function. LA mod dilated, RA sev dilated. mild AI/MR, RVSP >60 mmHg mibi 09/2018 diaphragmatic attenuation, nl EF, no ischemia EKG: afib, rate controlled, no ischemic changes ASSESSMENT/PLAN 79yo with chronic diastolic HF, afib, cad s/p remote pci (2010 per pt), htn, hld , ckd, CVA ( residual BL motor weakness), seizure p/w dyspnea, edema hypothermia, alt mental status, ? PNA: - ? source--possible PNA per ID. acute on chronic combined systolic and diastolic HF, severe pulm HTN : - history of systolic dysfunction with nl LV function on mibi 09/2018 - echo shows low nl LV function and restrictive physiology - CXR ? congestion appearance (vs PNA)--monitor CXRs with diuresis - lasix 20 po bid at home--receiving [address] chest shows chf still, cont same iv lasix. daily chem7. LETITIA on CKD: - last creat here 2.0 (03/06) - renal fxn slightly worse here, creat improving with diuresis. likely cardiorenal syndrome component elevated trop: - indeterminate range, flat trend - EKG no ischemic changes, less likely ACS - likely demand in setting of HF exac Afib: - not on AC due to history of anemia, GI bleed - rate controlled off av sravanthi blockade - hx of slow ventricular rate on coreg - same plan CAD hx prior PCI : - S/p Cardiac cath 07/20/15 with Non Obstructive CAD, mibi no ischemia 09/2018 - not on antiplatelets given history of anemia - cont statin - no concern of active ischemia htn: - bp suboptimal, reasonable - target <130/80 - volume overloaded--improving with diuresis - cont amlodipine. -Cont Carvedilol anemia: - manage per primary
[2019-07-23] MEDS: ROSUVASTATIN CA 10 MG TABLET (FP) PO SCH (21:30)
--- NOTE | 2019-07-24 00:22 | PN ---
Progress Note, Physician Chief Complaint: awake yet weak - Current Medication List Current Medications: Active Medications Albuterol/Ipratropium (Duoneb -) 1 amp NEB RQID [facility] Last Admin: 07/23/19 20:34 Dose: 1 amp Amlodipine Besylate (Norvasc -) 5 mg PO DAILY [facility] Last Admin: 07/23/19 10:36 Dose: 5 mg Carvedilol (Coreg -) 6.25 mg PO BID [facility] Last Admin: 07/23/19 21:30 Dose: 6.25 mg Furosemide (Lasix Injection -) 80 mg IVPUSH BID@0600,1400 [facility] Last Admin: 07/23/19 14:23 Dose: 80 mg Insulin Aspart (Novolog Vial Sliding Scale -) 1 vial SQ ACHS [facility]; Protocol Last Admin: 07/23/19 21:31 Dose: 8 units Insulin Detemir (Levemir Vial) 20 units SQ AM [facility] Last Admin: 07/23/19 06:04 Dose: 20 units Levetiracetam (Keppra -) 500 mg PO BID [facility] Last Admin: 07/23/19 21:29 Dose: 500 mg Levothyroxine Sodium (Synthroid -) 25 mcg PO DAILY@0700 [facility] Mycophenolate Mofetil (Cellcept -) 500 mg PO DAILY [facility] Last Admin: 07/23/19 10:36 Dose: 500 mg Pantoprazole Sodium (Protonix -) 40 mg PO DAILY [facility] Last Admin: 07/23/19 12:01 Dose: 40 mg Polysaccharide Iron Complex (Niferex-150 -) 150 mg PO DAILY [facility] Last Admin: 07/23/19 12:01 Dose: 150 mg Prednisone (Deltasone -) 30 mg PO DAILY [facility] Last Admin: 07/23/19 10:36 Dose: 30 mg Rosuvastatin Calcium (Crestor -) 10 mg PO HS [facility] Last Admin: 07/23/19 21:30 Dose: 10 mg Tamsulosin HCl (Flomax -) 0.4 mg PO DAILY@0830 [facility] Last Admin: 07/23/19 10:36 Dose: 0.4 mg - Objective Vital Signs: Vital Signs Temperature 97.5 F L 07/23/19 18:00 Pulse Rate 83 07/23/19 18:00 Respiratory Rate 20 07/23/19 18:00 Blood Pressure 144/82 07/23/19 18:00 O2 Sat by Pulse Oximetry (%) 98 07/23/19 09:00 Constitutional: Yes: Calm Eyes: Yes: EOM Intact HENT: Yes: Normocephalic Neck: Yes: Trachea Midline Cardiovascular: Yes: Regular Rate and Rhythm Respiratory: Yes: CTA Bilaterally Gastrointestinal: Yes: Normal Bowel Sounds ...Rectal Exam: Yes: Deferred Breast(s): Yes: WNL Musculoskeletal: Yes: Joint Swelling, Muscle Pain, Muscle Weakness Edema: Yes Edema: LLE: 1+ (d), RLE: 1+ Neurological: Yes: Alert, Oriented Labs: CBC, BMP 07/20/19 07:05 07/23/19 06:52 INR, PTT INR 1.48 (0.83-1.09) H 07/14/19 22:46 Problem List - Problems (1) Anasarca Code(s): R60.1 - GENERALIZED EDEMA (2) CHF exacerbation Code(s): I50.9 - HEART FAILURE, UNSPECIFIED Qualifiers: Heart failure type: unspecified Qualified Code(s): I50.9 - Heart failure, unspecified (3) Hypercapnic respiratory failure Code(s): J96.92 - RESPIRATORY FAILURE, UNSPECIFIED WITH HYPERCAPNIA (4) Hypothermia Code(s): T68.XXXA - HYPOTHERMIA, INITIAL ENCOUNTER (5) Lethargy Code(s): R53.83 - OTHER FATIGUE (6) Pneumonia Code(s): J18.9 - PNEUMONIA, UNSPECIFIED ORGANISM Assessment/Plan Current Active Problems Altered mental state (Acute) Anasarca (Acute) Anemia (Acute) CHF exacerbation (Acute) Hypercapnic respiratory failure (Acute) Hypothermia (Acute) Lethargy (Acute) Obesity, Class III, BMI 40-49.9 (morbid obesity) (Acute) Pneumonia (Acute) Abnormal Lab Results 07/23/19 06:52 Carbon Dioxide 33 H Anion Gap 6 L BUN 78.3 H Creatinine 2.3 H Random Glucose 237 H Calcium 8.1 L Laboratory Tests 07/23/19 07/23/19 07/23/19 06:08 06:52 11:57 BUN 78.3 H Creatinine 2.3 H POC Glucometer 243 202 07/23/19 07/23/19 16:21 20:31 BUN Creatinine POC Glucometer 244 312 plan: bgm novolog scale levemir 30 units am
[2019-07-24] MEDS ORDERED: PT OWN MED DRAWER 7, Y5N ONE ×3 (05:34→17:12)
[2019-07-24] MEDS: FUROSEMIDE 40 MG/4 ML INJECTABLE VIAL IVPUSH SCH ×2 (05:46→13:45)
[2019-07-24] MEDS: LEVOTHYROXINE NA 25 MCG TABLET (FP) PO SCH (06:01)
[2019-07-24] MEDS: INSULIN SLIDING SCALE (NOVOLOG) 1 VIAL SQ SCH ×4 (06:01→22:43)
[2019-07-24] MEDS: INSULIN (LEVEMIR) 100 UNITS/ML UNITS SQ SCH (06:01)
[2019-07-24] MEDS ORDERED: INSULIN (NOVOLOG) ASPART 100 UNITS/ML 10ML VIAL ONE (07:18)
[2019-07-24] MEDS: ALBUTEROL SO4 2.5/IPRATROPIUM 0.5 INH SOL 3 ML VIAL.NEB. NEB SCH ×4 (07:20→19:50)
[2019-07-24 07:24] LABS: BASO % 0.1 % (0-2.0); HEMATOCRIT 31.1 % (35.4-49); HEMOGLOBIN 9.8 GM/dL (11.7-16.9); LYMPH % 4.2 % (8-40); MCH 27.6 pg (25.7-33.7); MCHC 31.7 g/dl (32.0-35.9); MEAN CELL VOLUME 87.3 fl (80-96); MEAN PLT VOLUME 6.8 fl (7.5-11.1); NEUT % 90.7 % (42.8-82.8); PLATELET COUNT 138 K/MM3 (134-434); RBC 3.56 M/mm3 (4.00-5.60); RDW 14.9 % (11.9-15.9); WHITE BLOOD COUNT 11.1 K/mm3 (4.0-10.0)
[2019-07-24 08:20] LABS: BLOOD UREA NITROGEN 85.2 mg/dL (7-18); CALCIUM 8.3 mg/dL (8.5-10.1); CREATININE 2.2 mg/dL (0.55-1.3); POTASSIUM 3.9 mmol/L (3.5-5.1)
[2019-07-24] MEDS: TAMSULOSIN HCL 0.4 MG CAP PO SCH (08:32)
--- NOTE | 2019-07-24 08:54 | PN ---
Progress Note (short form) - Note Progress Note: Awake and alert. Denies shortness of breath, chest pain. Saturating well on nasal cannula. No acute events overnight. Intake & Output 07/21/19 07/22/19 07/23/19 07/24/19 23:59 23:59 23:59 23:59 Intake Total 910 410 265 200 Balance 910 410 265 200 Weight 263 lb 4 oz 264 lb 12.8 oz 263 lb 1 oz 256 lb 15.991 oz Last Vital Signs Temp Pulse Resp BP Pulse Ox 97.7 F 88 20 147/79 97 07/24/19 06:00 07/24/19 06:00 07/24/19 06:00 07/24/19 06:00 07/23/19 21:00 Active Medications Albuterol/Ipratropium (Duoneb -) 1 amp NEB RQID [facility] Last Admin: 07/24/19 07:20 Dose: 1 amp Amlodipine Besylate (Norvasc -) 5 mg PO DAILY [facility] Last Admin: 07/23/19 10:36 Dose: 5 mg Carvedilol (Coreg -) 6.25 mg PO BID [facility] Last Admin: 07/23/19 21:30 Dose: 6.25 mg Furosemide (Lasix Injection -) 80 mg IVPUSH BID@0600,1400 [facility] Last Admin: 07/24/19 05:46 Dose: 80 mg Insulin Aspart (Novolog Vial Sliding Scale -) 1 vial SQ ACHS [facility]; Protocol Last Admin: 07/24/19 06:01 Dose: Not Given Insulin Detemir (Levemir Vial) 30 units SQ AM [facility] Last Admin: 07/24/19 06:01 Dose: 30 units Levetiracetam (Keppra -) 500 mg PO BID [facility] Last Admin: 07/23/19 21:29 Dose: 500 mg Levothyroxine Sodium (Synthroid -) 25 mcg PO DAILY@0700 [facility] Last Admin: 07/24/19 06:01 Dose: 25 mcg Mycophenolate Mofetil (Cellcept -) 500 mg PO DAILY [facility] Last Admin: 07/23/19 10:36 Dose: 500 mg Pantoprazole Sodium (Protonix -) 40 mg PO DAILY [facility] Last Admin: 07/23/19 12:01 Dose: 40 mg Polysaccharide Iron Complex (Niferex-150 -) 150 mg PO DAILY [facility] Last Admin: 07/23/19 12:01 Dose: 150 mg Prednisone (Deltasone -) 30 mg PO DAILY [facility] Last Admin: 07/23/19 10:36 Dose: 30 mg Rosuvastatin Calcium (Crestor -) 10 mg PO HS [facility] Last Admin: 07/23/19 21:30 Dose: 10 mg Tamsulosin HCl (Flomax -) 0.4 mg PO DAILY@0830 [facility] Last Admin: 07/24/19 08:32 Dose: 0.4 mg Gen: NAD at rest Heart: RRR Lung: decreased breath sounds at the bases Abd: soft, nontender Ext: no edema Laboratory Results - last 24 hr 07/23/19 07/23/19 07/23/19 11:57 16:21 20:31 WBC RBC Hgb Hct MCV MCH MCHC RDW Plt Count MPV Absolute Neuts (auto) Neutrophils % Lymphocytes % Monocytes % Eosinophils % Basophils % Nucleated RBC % Sodium Potassium Chloride Carbon Dioxide Anion Gap BUN Creatinine Est GFR (CKD-EPI)AfAm Est GFR (CKD-EPI)NonAf POC Glucometer 202 244 312 Random Glucose Calcium 07/24/19 07/24/19 07/24/19 05:44 06:50 06:50 WBC 11.1 H RBC 3.56 L Hgb 9.8 L Hct 31.1 L MCV 87.3 MCH 27.6 MCHC 31.7 L RDW 14.9 Plt Count 138 MPV 6.8 L Absolute Neuts (auto) 10.1 H Neutrophils % 90.7 H Lymphocytes % 4.2 L D Monocytes % 5.0 D Eosinophils % 0.0 Basophils % 0.1 Nucleated RBC % 0 Sodium 140 Potassium 3.9 Chloride 98 Carbon Dioxide 36 H Anion Gap 6 L BUN 85.2 H Creatinine 2.2 H Est GFR (CKD-EPI)AfAm 31.40 Est GFR (CKD-EPI)NonAf 27.09 POC Glucometer 150 Random Glucose 155 H Calcium 8.3 L A/P Acute Hypercapneic Respiratory Failure improving Altered Mental Status improving Pneumonia likely Aspiration Acute COPD Exacerbation Acute on Chronic Diastolic Heart Failure Pulmonary HTN Acute on Chronic Renal Failure Atrial Fibrillation +Troponins likely Demand Ischemia CAD HTN Hyperlipidemia CKD BPH Seizure Disorder h/o CVA Anemia - O2 to keep SpO2 >90% - continue antibiotics - Lasix IVP BID - monitor urine output, creatinine - rate control - off anticoagulation due h/o GI bleed - Prednisone OD Dr Contreras
--- NOTE | 2019-07-24 09:34 | PN ---
Progress Note, Physician - Current Medication List Current Medications: Active Medications Albuterol/Ipratropium (Duoneb -) 1 amp NEB RQID [facility] Last Admin: 07/24/19 07:20 Dose: 1 amp Amlodipine Besylate (Norvasc -) 5 mg PO DAILY [facility] Last Admin: 07/23/19 10:36 Dose: 5 mg Carvedilol (Coreg -) 6.25 mg PO BID [facility] Last Admin: 07/23/19 21:30 Dose: 6.25 mg Furosemide (Lasix Injection -) 80 mg IVPUSH BID@0600,1400 [facility] Last Admin: 07/24/19 05:46 Dose: 80 mg Insulin Aspart (Novolog Vial Sliding Scale -) 1 vial SQ ACHS [facility]; Protocol Last Admin: 07/24/19 06:01 Dose: Not Given Insulin Detemir (Levemir Vial) 30 units SQ AM [facility] Last Admin: 07/24/19 06:01 Dose: 30 units Levetiracetam (Keppra -) 500 mg PO BID [facility] Last Admin: 07/23/19 21:29 Dose: 500 mg Levothyroxine Sodium (Synthroid -) 25 mcg PO DAILY@0700 [facility] Last Admin: 07/24/19 06:01 Dose: 25 mcg Mycophenolate Mofetil (Cellcept -) 500 mg PO DAILY [facility] Last Admin: 07/23/19 10:36 Dose: 500 mg Pantoprazole Sodium (Protonix -) 40 mg PO DAILY [facility] Last Admin: 07/23/19 12:01 Dose: 40 mg Polysaccharide Iron Complex (Niferex-150 -) 150 mg PO DAILY [facility] Last Admin: 07/23/19 12:01 Dose: 150 mg Prednisone (Deltasone -) 30 mg PO DAILY [facility] Last Admin: 07/23/19 10:36 Dose: 30 mg Rosuvastatin Calcium (Crestor -) 10 mg PO HS [facility] Last Admin: 07/23/19 21:30 Dose: 10 mg Tamsulosin HCl (Flomax -) 0.4 mg PO DAILY@0830 [facility] Last Admin: 07/24/19 08:32 Dose: 0.4 mg - Objective Vital Signs: Vital Signs Temperature 97.7 F 07/24/19 06:00 Pulse Rate 88 07/24/19 06:00 Respiratory Rate 20 07/24/19 06:00 Blood Pressure 147/79 07/24/19 06:00 O2 Sat by Pulse Oximetry (%) 97 07/23/19 21:00 Cardiovascular: Yes: S1, S2 Respiratory: Yes: Regular, CTA Bilaterally Gastrointestinal: Yes: Normal Bowel Sounds, Soft Labs: CBC, BMP 07/24/19 06:50 07/24/19 06:50 INR, PTT INR 1.48 (0.83-1.09) H 07/14/19 22:46 Problem List - Problems (1) Hypothermia Code(s): T68.XXXA - HYPOTHERMIA, INITIAL ENCOUNTER (2) Lethargy Code(s): R53.83 - OTHER FATIGUE (3) CHF exacerbation Code(s): I50.9 - HEART FAILURE, UNSPECIFIED Qualifiers: Heart failure type: unspecified Qualified Code(s): I50.9 - Heart failure, unspecified (4) Anemia Code(s): D64.9 - ANEMIA, UNSPECIFIED (5) Afib Code(s): I48.91 - UNSPECIFIED ATRIAL FIBRILLATION Qualifiers: Atrial fibrillation type: paroxysmal Qualified Code(s): I48.0 - Paroxysmal atrial fibrillation (6) CKD (chronic kidney disease) Code(s): N18.9 - CHRONIC KIDNEY DISEASE, UNSPECIFIED (7) Diabetes mellitus Code(s): E11.9 - TYPE 2 DIABETES MELLITUS WITHOUT COMPLICATIONS (8) Gastritis Code(s): K29.70 - GASTRITIS, UNSPECIFIED, WITHOUT BLEEDING (9) Seizure Code(s): R56.9 - UNSPECIFIED CONVULSIONS Assessment/Plan - Problems (1) Altered mental state Assessment/Plan: -Resolved -Head CT scan shows no significant interval change -2/2 to infection Code(s): R41.82 - ALTERED MENTAL STATUS, UNSPECIFIED (2) CHF exacerbation Assessment/Plan: -CT c/w CHF--Furosemide IV BID -Cardiology and Pulmonary on board -CXR shows atelectasis or scarring in LLL, atelectasis or infiltrate at medial right base-Repeat -Echo 50-55% -1 L fluid restriction -daily weights -strict I&O Code(s): I50.9 - HEART FAILURE, UNSPECIFIED Qualifiers: Heart failure type: unspecified Qualified Code(s): I50.9 - Heart failure, unspecified (3) Pneumonia Assessment/Plan: -Pulmonary on board -CXR shows atelectasis or scarring in LLL, atelectasis or infiltrate at medial right base -Bronchodilators -CT c/w CHF -IV Medrol--to po -keep SpO2 >90% -O2 via NC, HFOT -Unasyn -no leukocytosis -afebrile Code(s): J18.9 - PNEUMONIA, UNSPECIFIED ORGANISM (4) Afib Assessment/Plan: -Cardiology on board -no AC due to history of anemia or gi bleed Code(s): I48.91 - UNSPECIFIED ATRIAL FIBRILLATION Qualifiers: Atrial fibrillation type: paroxysmal Qualified Code(s): I48.0 - Paroxysmal atrial fibrillation (5) BPH (benign prostatic hyperplasia) Assessment/Plan: -Tamsulosin Code(s): N40.0 - BENIGN PROSTATIC HYPERPLASIA WITHOUT LOWER URINRY TRACT SYMP (6) CAD (coronary artery disease) Assessment/Plan: -Crestor Code(s): I25.10 - ATHSCL HEART DISEASE OF [place] CORONARY ARTERY W/O ANG PCTRS (7) CKD (chronic kidney disease) Assessment/Plan: -renal on board -monitor renal function daily-cr 2.2 Code(s): N18.9 - CHRONIC KIDNEY DISEASE, UNSPECIFIED (8) HTN (hypertension) Assessment/Plan: -Furosemide -low Na diet Code(s): I10 - ESSENTIAL (PRIMARY) HYPERTENSION (9) Hyperlipidemia Assessment/Plan: -crestor Code(s): E78.5 - HYPERLIPIDEMIA, UNSPECIFIED (10) Hypothyroid Assessment/Plan: -Levothyroxine Code(s): E03.9 - HYPOTHYROIDISM, UNSPECIFIED (11) Seizure Code(s): R56.9 - UNSPECIFIED CONVULSIONS
[2019-07-24] MEDS: PANTOPRAZOLE 40 MG TABLET PO SCH (09:40)
[2019-07-24] MEDS: MYCOPHENOLATE MOFETIL 500 MG TABLET PO SCH (09:40)
[2019-07-24] MEDS: CARVEDILOL 6.25 MG TABLET (FP) PO SCH ×2 (09:40→22:43)
[2019-07-24] MEDS: predniSONE 10 MG TABLET (UD) PO SCH (09:40)
[2019-07-24] MEDS: amLODIPine BESYLATE 5 MG TABLET (FP) PO SCH (09:40)
[2019-07-24] MEDS: IRON POLYSACCHARIDES 150 MG CAPSULE PO SCH (09:40)
[2019-07-24] MEDS: levETIRAcetam 500 MG TABLET (FP) PO SCH ×2 (09:40→22:42)
[2019-07-24] MEDS: POLYETHYLENE GLYCOL 3350 119 GM BTL PO SCH ×2 (10:32→22:42)
--- NOTE | 2019-07-24 15:35 | PN ---
Progress Note (short form) - Note Progress Note: no cp sob palps dizzy Current Medications Albuterol/Ipratropium (Duoneb -) 1 amp NEB RQID [facility] Last Admin: 07/24/19 11:22 Dose: 1 amp Amlodipine Besylate (Norvasc -) 5 mg PO DAILY [facility] Last Admin: 07/24/19 09:40 Dose: 5 mg Carvedilol (Coreg -) 6.25 mg PO BID [facility] Last Admin: 07/24/19 09:40 Dose: 6.25 mg Furosemide (Lasix Injection -) 80 mg IVPUSH BID@0600,1400 [facility] Last Admin: 07/24/19 13:45 Dose: 80 mg Insulin Aspart (Novolog Vial Sliding Scale -) 1 vial SQ ACHS [facility]; Protocol Last Admin: 07/24/19 11:54 Dose: 3 units Insulin Detemir (Levemir Vial) 30 units SQ AM [facility] Last Admin: 07/24/19 06:01 Dose: 30 units Levetiracetam (Keppra -) 500 mg PO BID [facility] Last Admin: 07/24/19 09:40 Dose: 500 mg Levothyroxine Sodium (Synthroid -) 25 mcg PO DAILY@0700 [facility] Last Admin: 07/24/19 06:01 Dose: 25 mcg Mycophenolate Mofetil (Cellcept -) 500 mg PO DAILY [facility] Last Admin: 07/24/19 09:40 Dose: 500 mg Pantoprazole Sodium (Protonix -) 40 mg PO DAILY [facility] Last Admin: 07/24/19 09:40 Dose: 40 mg Polyethylene Glycol (Miralax (For Daily Use) -) 17 gm PO BID [facility] Last Admin: 07/24/19 10:32 Dose: 17 grams Polysaccharide Iron Complex (Niferex-150 -) 150 mg PO DAILY [facility] Last Admin: 07/24/19 09:40 Dose: 150 mg Prednisone (Deltasone -) 30 mg PO DAILY [facility] Last Admin: 07/24/19 09:40 Dose: 30 mg Rosuvastatin Calcium (Crestor -) 10 mg PO HS [facility] Last Admin: 07/23/19 21:30 Dose: 10 mg Tamsulosin HCl (Flomax -) 0.4 mg PO DAILY@0830 [facility] Last Admin: 07/24/19 08:32 Dose: 0.4 mg Vital Signs Period Temp Pulse Resp BP Sys/Hair Pulse Ox Last 24 Hr 97.4 F-97.9 F 76-88 20-22 123-147/73-82 97-97 Constitutional: Yes: No Distress Cardiovascular: Yes: Pulse Irregular Respiratory: Yes:cta bl nl eff Gastrointestinal: Yes: Soft (NT) Edema: Yes Edema: LLE: 1+, RLE: 1+ Neurological: Yes: Alert, Oriented no jaundice diaphoresis 07/2015 Cardiac cath - Right-Sided Pressures are Increased, Mild Pulmonary Hypertension (pa mean 30), PVRI is mildly increased - 5, PCW is increased- 18, Decreased Cardiac Output ~5.6 liter/min Coronary Anatomy : I Vessel CAD (RCA) LV Function/Aorta : Moderate systolic LV Dysfunction ~EF 35% echo 06/2019: mod conc LVH, low nl LV function, restrictive physiology. mildly dilated RV, mod reduced RV systolic function. LA mod dilated, RA sev dilated. mild AI/MR, RVSP >60 mmHg mibi 09/2018 diaphragmatic attenuation, nl EF, no ischemia EKG: afib, rate controlled, no ischemic changes ASSESSMENT/PLAN 79yo with chronic diastolic HF, afib, cad s/p remote pci (2010 per pt), htn, hld , ckd, CVA ( residual BL motor weakness), seizure p/w dyspnea, edema hypothermia, alt mental status, ? PNA: - ? source--possible PNA per ID. acute on chronic combined systolic and diastolic HF, severe pulm HTN : - history of systolic dysfunction with nl LV function on mibi 09/2018 - echo shows low nl LV function and restrictive physiology - CXR ? congestion appearance (vs PNA) - lasix 20 po bid at home--receiving 60 iv bid here, inc to 80 mg IV BID - wt down, Cr stable - cont same iv lasix. daily chem7. LETITIA on CKD: - last creat here 2.0 (03/06) - renal fxn slightly worse here, creat improving with diuresis. likely cardiorenal syndrome component elevated trop: - indeterminate range, flat trend - EKG no ischemic changes, less likely ACS - likely demand in setting of HF exac Afib: - not on AC due to history of anemia, GI bleed - rate controlled off av sravanthi blockade - hx of slow ventricular rate on coreg - same plan CAD hx prior PCI : - S/p Cardiac cath 07/20/15 with Non Obstructive CAD, mibi no ischemia 09/2018 - not on antiplatelets given history of anemia - cont statin - no concern of active ischemia htn: - bp suboptimal, reasonable - target <130/80 - volume overloaded--improving with diuresis - cont amlodipine. -Cont Carvedilol anemia: - manage per primary
--- NOTE | 2019-07-24 16:11 | PN ---
Progress Note, Physician History of Present Illness: Pt seen and examined at bedside. He is awake and alert. He feels the same as yesterday. - Current Medication List Current Medications: Active Medications Albuterol/Ipratropium (Duoneb -) 1 amp NEB RQID [facility] Last Admin: 07/24/19 11:22 Dose: 1 amp Amlodipine Besylate (Norvasc -) 5 mg PO DAILY [facility] Last Admin: 07/24/19 09:40 Dose: 5 mg Carvedilol (Coreg -) 6.25 mg PO BID [facility] Last Admin: 07/24/19 09:40 Dose: 6.25 mg Furosemide (Lasix Injection -) 80 mg IVPUSH BID@0600,1400 [facility] Last Admin: 07/24/19 13:45 Dose: 80 mg Insulin Aspart (Novolog Vial Sliding Scale -) 1 vial SQ ACHS [facility]; Protocol Last Admin: 07/24/19 11:54 Dose: 3 units Insulin Detemir (Levemir Vial) 30 units SQ AM [facility] Last Admin: 07/24/19 06:01 Dose: 30 units Levetiracetam (Keppra -) 500 mg PO BID [facility] Last Admin: 07/24/19 09:40 Dose: 500 mg Levothyroxine Sodium (Synthroid -) 25 mcg PO DAILY@0700 [facility] Last Admin: 07/24/19 06:01 Dose: 25 mcg Mycophenolate Mofetil (Cellcept -) 500 mg PO DAILY [facility] Last Admin: 07/24/19 09:40 Dose: 500 mg Pantoprazole Sodium (Protonix -) 40 mg PO DAILY [facility] Last Admin: 07/24/19 09:40 Dose: 40 mg Polyethylene Glycol (Miralax (For Daily Use) -) 17 gm PO BID [facility] Last Admin: 07/24/19 10:32 Dose: 17 grams Polysaccharide Iron Complex (Niferex-150 -) 150 mg PO DAILY [facility] Last Admin: 07/24/19 09:40 Dose: 150 mg Prednisone (Deltasone -) 30 mg PO DAILY [facility] Last Admin: 07/24/19 09:40 Dose: 30 mg Rosuvastatin Calcium (Crestor -) 10 mg PO HS [facility] Last Admin: 07/23/19 21:30 Dose: 10 mg Tamsulosin HCl (Flomax -) 0.4 mg PO DAILY@0830 [facility] Last Admin: 07/24/19 08:32 Dose: 0.4 mg - Objective Vital Signs: Vital Signs Temperature 97.4 F L 07/24/19 15:09 Pulse Rate 81 07/24/19 15:09 Respiratory Rate 20 07/24/19 15:09 Blood Pressure 123/73 07/24/19 15:09 O2 Sat by Pulse Oximetry (%) 97 07/24/19 09:00 Constitutional: Yes: Calm Eyes: Yes: Conjunctiva Clear HENT: Yes: Atraumatic Neck: Yes: Supple Cardiovascular: Yes: S1, S2 Respiratory: Yes: CTA Bilaterally Gastrointestinal: Yes: Soft Genitourinary: Yes: Incontinence Musculoskeletal: Yes: WNL Edema: Yes Edema: LLE: 1+, RLE: 1+ Neurological: Yes: Oriented Psychiatric: Yes: Oriented Labs: CBC, BMP 07/24/19 06:50 07/24/19 06:50 INR, PTT INR 1.48 (0.83-1.09) H 07/14/19 22:46 Problem List - Problems (1) Altered mental state Code(s): R41.82 - ALTERED MENTAL STATUS, UNSPECIFIED (2) CHF exacerbation Code(s): I50.9 - HEART FAILURE, UNSPECIFIED Qualifiers: Heart failure type: unspecified Qualified Code(s): I50.9 - Heart failure, unspecified (3) CHF exacerbation Code(s): I50.9 - HEART FAILURE, UNSPECIFIED (4) CKD (chronic kidney disease) Code(s): N18.9 - CHRONIC KIDNEY DISEASE, UNSPECIFIED Assessment/Plan Current Medications Generic Name Dose Route Start Last Admin Trade Name Kelly PRN Reason Stop Dose Admin Albuterol/Ipratropium 1 amp 07/23/19 08:00 07/24/19 11:22 Duoneb - NEB 1 amp RQID MICHAEL Administration Amlodipine Besylate 5 mg 07/23/19 10:00 07/24/19 09:40 Norvasc - PO 5 mg DAILY MICHAEL Administration Carvedilol 6.25 mg 07/21/19 11:45 07/24/19 09:40 Coreg - PO 6.25 mg BID MICHAEL Administration Furosemide 80 mg 07/23/19 14:00 07/24/19 13:45 Lasix Injection - IVPUSH 80 mg BID@0600,1400 MICHAEL Administration Insulin Aspart 1 vial 07/23/19 07:00 07/24/19 11:54 Novolog Vial Sliding Scale - SQ 3 units ACHS MICHAEL Administration Protocol Insulin Detemir 30 units 07/24/19 07:00 07/24/19 06:01 Levemir Vial SQ 30 units AM [facility]EL Administration Levetiracetam 500 mg 07/23/19 10:00 07/24/19 09:40 Keppra - PO 500 mg BID MICHAEL Administration Levothyroxine Sodium 25 mcg 07/24/19 07:00 07/24/19 06:01 Synthroid - PO 25 mcg DAILY@0700 MICHAEL Administration Mycophenolate Mofetil 500 mg 07/23/19 10:00 07/24/19 09:40 Cellcept - PO 500 mg DAILY MIC[facility]EL Administration Pantoprazole Sodium 40 mg 07/23/19 11:00 07/24/19 09:40 Protonix - PO 40 mg DAILY [facility]EL Administration Polyethylene Glycol 17 gm 07/24/19 10:00 07/24/19 10:32 Miralax (For Daily Use) - PO 17 grams BID MICHAEL Administration Polysaccharide Iron Complex 150 mg 07/23/19 11:00 07/24/19 09:40 Niferex-150 - PO 150 mg DAILY MIC[facility]EL Administration Prednisone 30 mg 07/23/19 10:00 07/24/19 09:40 Deltasone - PO 30 mg DAILY MIC[facility]EL Administration Rosuvastatin Calcium 10 mg 07/23/19 22:00 07/23/19 21:30 Crestor - PO 10 mg HS MICHAEL Administration Tamsulosin HCl 0.4 mg 07/23/19 08:30 07/24/19 08:32 Flomax - PO 0.4 mg DAILY@0830 MICHAEL Administration Impression 1. CKD 2. CHF 3. BPH 4. a. fib 5. CAD 6. epilepsy 7. proteinuria 8. anemia 9. acute resp failure 10. 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
[2019-07-24] MEDS: ROSUVASTATIN CA 10 MG TABLET (FP) PO SCH (22:43)
[2019-07-25] MEDS: INSULIN (LEVEMIR) 100 UNITS/ML UNITS SQ SCH (06:36)
[2019-07-25] MEDS: INSULIN SLIDING SCALE (NOVOLOG) 1 VIAL SQ SCH ×4 (06:36→22:34)
[2019-07-25] MEDS: FUROSEMIDE 40 MG/4 ML INJECTABLE VIAL IVPUSH SCH (06:37)
[2019-07-25] MEDS: LEVOTHYROXINE NA 25 MCG TABLET (FP) PO SCH (06:37)
[2019-07-25] MEDS: ALBUTEROL SO4 2.5/IPRATROPIUM 0.5 INH SOL 3 ML VIAL.NEB. NEB SCH ×4 (07:21→20:45)
[2019-07-25 08:13] LABS: ALBUMIN 2.4 g/dl (3.4-5.0); BILIRUBIN,TOTAL 0.6 mg/dL (0.2-1); BLOOD UREA NITROGEN 83.2 mg/dL (7-18); CALCIUM 7.7 mg/dL (8.5-10.1); POTASSIUM 4.1 mmol/L (3.5-5.1); TOT PROT 5.9 g/dl (6.4-8.2)
[2019-07-25] MEDS: TAMSULOSIN HCL 0.4 MG CAP PO SCH (08:27)
--- NOTE | 2019-07-25 09:02 | PN ---
Progress Note, Physician History of Present Illness: IN BED COMFORTABLE NO SOB OR CP - Current Medication List Current Medications: Active Medications Albuterol/Ipratropium (Duoneb -) 1 amp NEB RQID [facility] Last Admin: 07/25/19 07:21 Dose: 1 amp Amlodipine Besylate (Norvasc -) 5 mg PO DAILY [facility] Last Admin: 07/24/19 09:40 Dose: 5 mg Carvedilol (Coreg -) 6.25 mg PO BID [facility] Last Admin: 07/24/19 22:43 Dose: 6.25 mg Furosemide (Lasix Injection -) 80 mg IVPUSH BID@0600,1400 [facility] Last Admin: 07/25/19 06:37 Dose: 80 mg Insulin Aspart (Novolog Vial Sliding Scale -) 1 vial SQ ACHS [facility]; Protocol Last Admin: 07/25/19 06:36 Dose: Not Given Insulin Detemir (Levemir Vial) 30 units SQ AM [facility] Last Admin: 07/25/19 06:36 Dose: Not Given Levetiracetam (Keppra -) 500 mg PO BID [facility] Last Admin: 07/24/19 22:42 Dose: 500 mg Levothyroxine Sodium (Synthroid -) 25 mcg PO DAILY@0700 [facility] Last Admin: 07/25/19 06:37 Dose: 25 mcg Mycophenolate Mofetil (Cellcept -) 500 mg PO DAILY [facility] Last Admin: 07/24/19 09:40 Dose: 500 mg Pantoprazole Sodium (Protonix -) 40 mg PO DAILY [facility] Last Admin: 07/24/19 09:40 Dose: 40 mg Polyethylene Glycol (Miralax (For Daily Use) -) 17 gm PO BID [facility] Last Admin: 07/24/19 22:42 Dose: 17 grams Polysaccharide Iron Complex (Niferex-150 -) 150 mg PO DAILY [facility] Last Admin: 07/24/19 09:40 Dose: 150 mg Prednisone (Deltasone -) 30 mg PO DAILY [facility] Last Admin: 07/24/19 09:40 Dose: 30 mg Rosuvastatin Calcium (Crestor -) 10 mg PO HS [facility] Last Admin: 07/24/19 22:43 Dose: 10 mg Tamsulosin HCl (Flomax -) 0.4 mg PO DAILY@0830 [facility] Last Admin: 07/25/19 08:27 Dose: 0.4 mg - Objective Vital Signs: Vital Signs Temperature 97.8 F 07/25/19 05:59 Pulse Rate 83 07/25/19 05:59 Respiratory Rate 20 07/25/19 05:59 Blood Pressure 136/82 07/25/19 05:59 O2 Sat by Pulse Oximetry (%) 95 07/24/19 21:00 Cardiovascular: Yes: S1, S2 Respiratory: Yes: Regular, CTA Bilaterally Gastrointestinal: Yes: Normal Bowel Sounds, Soft Labs: CBC, BMP 07/24/19 06:50 07/25/19 06:55 INR, PTT INR 1.48 (0.83-1.09) H 07/14/19 22:46 Problem List - Problems (1) Hypothermia Code(s): T68.XXXA - HYPOTHERMIA, INITIAL ENCOUNTER (2) Lethargy Code(s): R53.83 - OTHER FATIGUE (3) CHF exacerbation Code(s): I50.9 - HEART FAILURE, UNSPECIFIED Qualifiers: Heart failure type: unspecified Qualified Code(s): I50.9 - Heart failure, unspecified (4) Anemia Code(s): D64.9 - ANEMIA, UNSPECIFIED (5) Afib Code(s): I48.91 - UNSPECIFIED ATRIAL FIBRILLATION Qualifiers: Atrial fibrillation type: paroxysmal Qualified Code(s): I48.0 - Paroxysmal atrial fibrillation (6) CKD (chronic kidney disease) Code(s): N18.9 - CHRONIC KIDNEY DISEASE, UNSPECIFIED (7) Diabetes mellitus Code(s): E11.9 - TYPE 2 DIABETES MELLITUS WITHOUT COMPLICATIONS (8) Gastritis Code(s): K29.70 - GASTRITIS, UNSPECIFIED, WITHOUT BLEEDING (9) Seizure Code(s): R56.9 - UNSPECIFIED CONVULSIONS Assessment/Plan - Problems (1) Altered mental state Assessment/Plan: -Resolved -Head CT scan shows no significant interval change -2/2 to infection Code(s): R41.82 - ALTERED MENTAL STATUS, UNSPECIFIED (2) CHF exacerbation Assessment/Plan: -CT c/w CHF--Furosemide IV BID--demadex po -Cardiology and Pulmonary on board -CXR shows atelectasis or scarring in LLL, atelectasis or infiltrate at medial right base-Repeat -Echo 50-55% -1 L fluid restriction -daily weights -strict I&O Code(s): I50.9 - HEART FAILURE, UNSPECIFIED Qualifiers: Heart failure type: unspecified Qualified Code(s): I50.9 - Heart failure, unspecified (3) Pneumonia Assessment/Plan: -Pulmonary on board -CXR shows atelectasis or scarring in LLL, atelectasis or infiltrate at medial right base -Bronchodilators -CT c/w CHF -IV Medrol--to po -keep SpO2 >90% -O2 via NC, HFOT -Unasyn -no leukocytosis -afebrile Code(s): J18.9 - PNEUMONIA, UNSPECIFIED ORGANISM (4) Afib Assessment/Plan: -Cardiology on board -no AC due to history of anemia or gi bleed Code(s): I48.91 - UNSPECIFIED ATRIAL FIBRILLATION Qualifiers: Atrial fibrillation type: paroxysmal Qualified Code(s): I48.0 - Paroxysmal atrial fibrillation (5) BPH (benign prostatic hyperplasia) Assessment/Plan: -Tamsulosin Code(s): N40.0 - BENIGN PROSTATIC HYPERPLASIA WITHOUT LOWER URINRY TRACT SYMP (6) CAD (coronary artery disease) Assessment/Plan: -Crestor Code(s): I25.10 - ATHSCL HEART DISEASE OF [place] CORONARY ARTERY W/O ANG PCTRS (7) CKD (chronic kidney disease) Assessment/Plan: -renal on board -monitor renal function daily-cr 2.2 Code(s): N18.9 - CHRONIC KIDNEY DISEASE, UNSPECIFIED (8) HTN (hypertension) Assessment/Plan: -Furosemide -low Na diet Code(s): I10 - ESSENTIAL (PRIMARY) HYPERTENSION (9) Hyperlipidemia Assessment/Plan: -crestor Code(s): E78.5 - HYPERLIPIDEMIA, UNSPECIFIED (10) Hypothyroid Assessment/Plan: -Levothyroxine Code(s): E03.9 - HYPOTHYROIDISM, UNSPECIFIED (11) Seizure Code(s): R56.9 - UNSPECIFIED CONVULSIONS
[2019-07-25] MEDS: PANTOPRAZOLE 40 MG TABLET PO SCH (09:45)
[2019-07-25] MEDS: levETIRAcetam 500 MG TABLET (FP) PO SCH ×2 (09:45→22:34)
[2019-07-25] MEDS: IRON POLYSACCHARIDES 150 MG CAPSULE PO SCH (09:45)
[2019-07-25] MEDS: CARVEDILOL 6.25 MG TABLET (FP) PO SCH ×2 (09:45→22:34)
[2019-07-25] MEDS: amLODIPine BESYLATE 5 MG TABLET (FP) PO SCH (09:45)
[2019-07-25] MEDS: MYCOPHENOLATE MOFETIL 500 MG TABLET PO SCH (09:45)
[2019-07-25] MEDS: POLYETHYLENE GLYCOL 3350 119 GM BTL PO SCH ×2 (09:46→22:34)
[2019-07-25] MEDS: predniSONE 10 MG TABLET (UD) PO SCH (09:46)
--- NOTE | 2019-07-25 09:50 | DS ---
Physical Examination Vital Signs: Vital Signs Temperature 97.8 F 07/25/19 05:59 Pulse Rate 83 07/25/19 05:59 Respiratory Rate 20 07/25/19 05:59 Blood Pressure 136/82 07/25/19 05:59 O2 Sat by Pulse Oximetry (%) 95 07/24/19 21:00 Labs: CBC, BMP 07/24/19 06:50 07/25/19 06:55 Discharge Summary Problems reviewed: Yes Reason For Visit: ACUTE EXACERBATION OF CHF Current Active Problems Altered mental state (Acute) Anasarca (Acute) Anemia (Acute) CHF exacerbation (Acute) Hypercapnic respiratory failure (Acute) Hypothermia (Acute) Lethargy (Acute) Obesity, Class III, BMI 40-49.9 (morbid obesity) (Acute) Pneumonia (Acute) Condition: Stable - Instructions Referrals: Chavez Montes De Oca MD [Primary Care Provider] - Disposition: [facility] - Home Medications Comprehensive Discharge Medication List: Ambulatory Orders Amlodipine Besylate [Norvasc -] 5 mg PO DAILY 07/15/19 Levothyroxine [Synthroid -] 25 mcg PO DAILY 07/15/19 Mycophenolate Mofetil [Cellcept -] 500 mg PO DAILY 07/15/19 Tamsulosin HCl [Flomax] 0.4 mg PO DAILY 07/15/19 levETIRAcetam [Keppra -] 500 mg PO BID 07/15/19 Albuterol 2.5/Ipratropium 0.5 [Duoneb -] 1 amp NEB RQID amp 07/25/19 Carvedilol [Coreg -] 6.25 mg PO BID tablet 07/25/19 Insulin (Levemir) [Levemir Vial] 30 units SQ AM units 07/25/19 Insulin Sliding Scale [Novolog Vial Sliding Scale -] 1 vial SQ ACHS units 07/25 Iron Polysaccharides [Niferex-150 -] 150 mg PO DAILY capsule 07/25/19 Metolazone [Zaroxolyn -] 2.5 mg PO Q2D@1000 tablet 07/25/19 Pantoprazole Sodium [Protonix -] 40 mg PO DAILY tablet.ec 07/25/19 Polyethylene Glycol 3350 [Miralax 119 gm Btl -] 17 gm PO BID bottle 07/25/19 Rosuvastatin [Crestor -] 10 mg PO HS tablet 07/25/19 Torsemide [Demadex -] 60 mg PO BID tablet 07/25/19 predniSONE [Deltasone -] 30 mg PO DAILY tablet 07/25/19
[2019-07-25] MEDS: METOLAZONE 2.5 MG TABLET (FP) PO SCH (11:31)
[2019-07-25] MEDS: TORSEMIDE 20 MG TABLET (FP) PO SCH ×2 (11:31→22:34)
[2019-07-25] MEDS ORDERED: ACETAMINOPHEN 325 MG TABLET (FP) PO PRN (12:07)
--- NOTE | 2019-07-25 14:28 | PN ---
Progress Note (short form) - Note Progress Note: PULMONARY VSS/AFEBRILE Awake and alert. Denies shortness of breath, chest pain. Saturating well on nasal cannula. No acute events overnight. Gen: NAD at rest Heart: RRR Lung: decreased breath sounds at the bases Abd: soft, nontender Ext: no edema CHART REVIEWED A/P Acute Hypercapneic Respiratory Failure improving Altered Mental Status improving Pneumonia likely Aspiration Acute COPD Exacerbation Acute on Chronic Diastolic Heart Failure Pulmonary HTN Acute on Chronic Renal Failure Atrial Fibrillation +Troponins likely Demand Ischemia CAD HTN Hyperlipidemia CKD BPH Seizure Disorder h/o CVA Anemia - O2 to keep SpO2 >90% - Lasix IVP BID - monitor urine output, creatinine - rate control - off anticoagulation due h/o GI bleed - Prednisone BRYANT TARANGO MD
--- NOTE | 2019-07-25 15:17 | PN ---
Progress Note (short form) - Note Progress Note: Chief Complaint: no cp sob palps dizzy Current Medications Generic Name Dose Route Start Last Admin Trade Name Freq PRN Reason Stop Dose Admin Acetaminophen 650 mg 07/25/19 12:07 07/25/19 12:13 Tylenol - PO 650 mg Q6H PRN Administration PAIN Albuterol/Ipratropium 1 amp 07/23/19 08:00 07/25/19 11:12 Duoneb - NEB 1 amp RQID MICHAEL Administration Amlodipine Besylate 5 mg 07/23/19 10:00 07/25/19 09:45 Norvasc - PO 5 mg DAILY MICHAEL Administration Carvedilol 6.25 mg 07/21/19 11:45 07/25/19 09:45 Coreg - PO 6.25 mg BID MICHAEL Administration Insulin Aspart 1 vial 07/23/19 07:00 07/25/19 11:39 Novolog Vial Sliding Scale - SQ Not Given ACHS [facility] Protocol Insulin Detemir 30 units 07/24/19 07:00 07/25/19 06:36 Levemir Vial SQ Not Given AM [facility] Levetiracetam 500 mg 07/23/19 10:00 07/25/19 09:45 Keppra - PO 500 mg BID MICHAEL Administration Levothyroxine Sodium 25 mcg 07/24/19 07:00 07/25/19 06:37 Synthroid - PO 25 mcg DAILY@0700 [facility] Administration Metolazone 2.5 mg 07/25/19 10:00 07/25/19 11:31 Zaroxolyn - PO 2.5 mg Q2D@1000 MICHAEL Administration Mycophenolate Mofetil 500 mg 07/23/19 10:00 07/25/19 09:45 Cellcept - PO 500 mg DAILY MICHAEL Administration Pantoprazole Sodium 40 mg 07/23/19 11:00 07/25/19 09:45 Protonix - PO 40 mg DAILY MICHAEL Administration Polyethylene Glycol 17 gm 07/24/19 10:00 07/25/19 09:46 Miralax (For Daily Use) - PO 17 grams BID MICHAEL Administration Polysaccharide Iron Complex 150 mg 07/23/19 11:00 07/25/19 09:45 Niferex-150 - PO 150 mg DAILY MICHAEL Administration Prednisone 30 mg 07/23/19 10:00 07/25/19 09:46 Deltasone - PO 30 mg DAILY MICHAEL Administration Rosuvastatin Calcium 10 mg 07/23/19 22:00 07/24/19 22:43 Crestor - PO 10 mg HS MICHAEL Administration Tamsulosin HCl 0.4 mg 07/23/19 08:30 07/25/19 08:27 Flomax - PO 0.4 mg DAILY@0830 MICHAEL Administration Torsemide 60 mg 07/25/19 10:00 07/25/19 11:31 Demadex - PO 60 mg BID MICHAEL Administration Vital Signs Period Temp Pulse Resp BP Sys/Hair Pulse Ox Last 24 Hr 97.4 F-97.9 F 76-83 18-22 119-147/68-82 95-97 Constitutional: Yes: No Distress Cardiovascular: Yes: Pulse Irregular Respiratory: Yes:cta bl nl eff Gastrointestinal: Yes: Soft (NT) Edema: trace le edema bl Neurological: Yes: Alert no jaundice diaphoresis Labs: CBC, BMP 07/24/19 06:50 07/25/19 06:55 07/2015 Cardiac cath - Right-Sided Pressures are Increased, Mild Pulmonary Hypertension (pa mean 30), PVRI is mildly increased - 5, PCW is increased- 18, Decreased Cardiac Output ~5.6 liter/min Coronary Anatomy : I Vessel CAD (RCA) LV Function/Aorta : Moderate systolic LV Dysfunction ~EF 35% echo 06/2019: mod conc LVH, low nl LV function, restrictive physiology. mildly dilated RV, mod reduced RV systolic function. LA mod dilated, RA sev dilated. mild AI/MR, RVSP >60 mmHg mibi 09/2018 diaphragmatic attenuation, nl EF, no ischemia EKG: afib, rate controlled, no ischemic changes ASSESSMENT/PLAN 79yo with chronic diastolic HF, afib, cad s/p remote pci (2010 per pt), htn, hld , ckd, CVA ( residual BL motor weakness), seizure p/w dyspnea, edema hypothermia, alt mental status, ? PNA: - ? source--possible PNA per ID. acute on chronic combined systolic and diastolic HF, severe pulm HTN : - history of systolic dysfunction with nl LV function on mibi 09/2018 - echo shows low nl LV function and restrictive physiology - diuresed with iv lasix and now on po torsemide LETITIA on CKD: -cr near baseline now after diuresis elevated trop: - indeterminate range, flat trend - EKG no ischemic changes, less likely ACS - likely demand in setting of HF exac Afib: - not on AC due to history of anemia, GI bleed - rate controlled off av sravanthi blockade - hx of slow ventricular rate on coreg - same plan CAD hx prior PCI : - S/p Cardiac cath 07/20/15 with Non Obstructive CAD, mibi no ischemia 09/2018 - not on antiplatelets given history of anemia - cont statin - no concern of active ischemia htn: - bp suboptimal, reasonable - target <130/80 - volume overloaded--improving with diuresis - cont amlodipine. -Cont Carvedilol anemia: - manage per primary
[2019-07-25] MEDS ORDERED: INSULIN (NOVOLOG) ASPART 100 UNITS/ML 10ML VIAL ONE (16:40)
--- NOTE | 2019-07-25 19:13 | PN ---
Progress Note, Physician History of Present Illness: Pt seen and examined at bedside. He is awake and appears comfortable. - Current Medication List Current Medications: Active Medications Acetaminophen (Tylenol -) 650 mg PO Q6H PRN PRN Reason: PAIN Last Admin: 07/25/19 12:13 Dose: 650 mg Albuterol/Ipratropium (Duoneb -) 1 amp NEB RQID [facility] Last Admin: 07/25/19 15:25 Dose: 1 amp Amlodipine Besylate (Norvasc -) 5 mg PO DAILY [facility] Last Admin: 07/25/19 09:45 Dose: 5 mg Carvedilol (Coreg -) 6.25 mg PO BID [facility] Last Admin: 07/25/19 09:45 Dose: 6.25 mg Insulin Aspart (Novolog Vial Sliding Scale -) 1 vial SQ ACHS [facility]; Protocol Last Admin: 07/25/19 16:53 Dose: 5 units Insulin Detemir (Levemir Vial) 30 units SQ AM [facility] Last Admin: 07/25/19 06:36 Dose: Not Given Levetiracetam (Keppra -) 500 mg PO BID [facility] Last Admin: 07/25/19 09:45 Dose: 500 mg Levothyroxine Sodium (Synthroid -) 25 mcg PO DAILY@0700 [facility] Last Admin: 07/25/19 06:37 Dose: 25 mcg Metolazone (Zaroxolyn -) 2.5 mg PO Q2D@1000 [facility] Last Admin: 07/25/19 11:31 Dose: 2.5 mg Mycophenolate Mofetil (Cellcept -) 500 mg PO DAILY [facility] Last Admin: 07/25/19 09:45 Dose: 500 mg Pantoprazole Sodium (Protonix -) 40 mg PO DAILY [facility] Last Admin: 07/25/19 09:45 Dose: 40 mg Polyethylene Glycol (Miralax (For Daily Use) -) 17 gm PO BID [facility] Last Admin: 07/25/19 09:46 Dose: 17 grams Polysaccharide Iron Complex (Niferex-150 -) 150 mg PO DAILY [facility] Last Admin: 07/25/19 09:45 Dose: 150 mg Prednisone (Deltasone -) 30 mg PO DAILY [facility] Last Admin: 07/25/19 09:46 Dose: 30 mg Rosuvastatin Calcium (Crestor -) 10 mg PO HS [facility] Last Admin: 07/24/19 22:43 Dose: 10 mg Tamsulosin HCl (Flomax -) 0.4 mg PO DAILY@0830 [facility] Last Admin: 07/25/19 08:27 Dose: 0.4 mg Torsemide (Demadex -) 60 mg PO BID [facility] Last Admin: 07/25/19 11:31 Dose: 60 mg - Objective Vital Signs: Vital Signs Temperature 97.5 F L 07/25/19 19:02 Pulse Rate 90 07/25/19 19:02 Respiratory Rate 18 07/25/19 19:02 Blood Pressure 146/82 07/25/19 19:02 O2 Sat by Pulse Oximetry (%) 97 07/25/19 09:00 Constitutional: Yes: Calm Eyes: Yes: Conjunctiva Clear HENT: Yes: Atraumatic Cardiovascular: Yes: S1, S2 Respiratory: Yes: CTA Bilaterally, On Nasal O2 Gastrointestinal: Yes: Soft Genitourinary: Yes: WNL Musculoskeletal: Yes: Muscle Weakness Edema: Yes Edema: LLE: 1+, RLE: 1+ Integumentary: Yes: WNL Neurological: Yes: Oriented Psychiatric: Yes: Oriented Labs: CBC, BMP 07/24/19 06:50 07/25/19 06:55 INR, PTT INR 1.48 (0.83-1.09) H 07/14/19 22:46 Problem List - Problems (1) Altered mental state Code(s): R41.82 - ALTERED MENTAL STATUS, UNSPECIFIED (2) CHF exacerbation Code(s): I50.9 - HEART FAILURE, UNSPECIFIED Qualifiers: Heart failure type: unspecified Qualified Code(s): I50.9 - Heart failure, unspecified (3) CHF exacerbation Code(s): I50.9 - HEART FAILURE, UNSPECIFIED (4) CKD (chronic kidney disease) Code(s): N18.9 - CHRONIC KIDNEY DISEASE, UNSPECIFIED Assessment/Plan Current Medications Generic Name Dose Route Start Last Admin Trade Name Freq PRN Reason Stop Dose Admin Acetaminophen 650 mg 07/25/19 12:07 07/25/19 12:13 Tylenol - PO 650 mg Q6H PRN Administration PAIN Albuterol/Ipratropium 1 amp 07/23/19 08:00 07/25/19 15:25 Duoneb - NEB 1 amp RQID [facility] Administration Amlodipine Besylate 5 mg 07/23/19 10:00 07/25/19 09:45 Norvasc - PO 5 mg DAILY [facility] Administration Carvedilol 6.25 mg 07/21/19 11:45 07/25/19 09:45 Coreg - PO 6.25 mg BID [facility] Administration Insulin Aspart 1 vial 07/23/19 07:00 07/25/19 16:53 Novolog Vial Sliding Scale - SQ 5 units ACHS [facility] Administration Protocol Insulin Detemir 30 units 07/24/19 07:00 07/25/19 06:36 Levemir Vial SQ Not Given AM [facility] Levetiracetam 500 mg 07/23/19 10:00 07/25/19 09:45 Keppra - PO 500 mg BID [facility] Administration Levothyroxine Sodium 25 mcg 07/24/19 07:00 07/25/19 06:37 Synthroid - PO 25 mcg DAILY@0700 [facility] Administration Metolazone 2.5 mg 07/25/19 10:00 07/25/19 11:31 Zaroxolyn - PO 2.5 mg Q2D@1000 [facility] Administration Mycophenolate Mofetil 500 mg 07/23/19 10:00 07/25/19 09:45 Cellcept - PO 500 mg DAILY [facility] Administration Pantoprazole Sodium 40 mg 07/23/19 11:00 07/25/19 09:45 Protonix - PO 40 mg DAILY [facility] Administration Polyethylene Glycol 17 gm 07/24/19 10:00 07/25/19 09:46 Miralax (For Daily Use) - PO 17 grams BID [facility] Administration Polysaccharide Iron Complex 150 mg 07/23/19 11:00 07/25/19 09:45 Niferex-150 - PO 150 mg DAILY [facility] Administration Prednisone 30 mg 07/23/19 10:00 07/25/19 09:46 Deltasone - PO 30 mg DAILY [facility] Administration Rosuvastatin Calcium 10 mg 07/23/19 22:00 07/24/19 22:43 Crestor - PO 10 mg HS [facility] Administration Tamsulosin HCl 0.4 mg 07/23/19 08:30 07/25/19 08:27 Flomax - PO 0.4 mg DAILY@0830 [facility] Administration Torsemide 60 mg 07/25/19 10:00 07/25/19 11:31 Demadex - PO 60 mg BID [facility] Administration Impression 1. CKD 2. CHF 3. BPH 4. a. fib 5. CAD 6. epilepsy 7. proteinuria 8. anemia 9. acute resp failure 10. 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
[2019-07-25] MEDS: ROSUVASTATIN CA 10 MG TABLET (FP) PO SCH (22:34)
[2019-07-26] MEDS: LEVOTHYROXINE NA 25 MCG TABLET (FP) PO SCH (06:22)
[2019-07-26] MEDS: INSULIN (LEVEMIR) 100 UNITS/ML UNITS SQ SCH (06:23)
[2019-07-26] MEDS: INSULIN SLIDING SCALE (NOVOLOG) 1 VIAL SQ SCH ×4 (06:23→23:01)
[2019-07-26 06:52] LABS: CALCIUM 7.9 mg/dL (8.5-10.1); CREATININE 2.1 mg/dL (0.55-1.3)
[2019-07-26] MEDS: ALBUTEROL SO4 2.5/IPRATROPIUM 0.5 INH SOL 3 ML VIAL.NEB. NEB SCH ×4 (07:35→20:00)
[2019-07-26] MEDS: levETIRAcetam 500 MG TABLET (FP) PO SCH ×2 (09:27→21:30)
[2019-07-26] MEDS: IRON POLYSACCHARIDES 150 MG CAPSULE PO SCH (09:27)
[2019-07-26] MEDS: PANTOPRAZOLE 40 MG TABLET PO SCH (09:27)
[2019-07-26] MEDS: amLODIPine BESYLATE 5 MG TABLET (FP) PO SCH (09:27)
[2019-07-26] MEDS: predniSONE 10 MG TABLET (UD) PO SCH (09:27)
[2019-07-26] MEDS: MYCOPHENOLATE MOFETIL 500 MG TABLET PO SCH (09:27)
[2019-07-26] MEDS: TORSEMIDE 20 MG TABLET (FP) PO SCH ×2 (09:28→21:30)
[2019-07-26] MEDS: TAMSULOSIN HCL 0.4 MG CAP PO SCH (09:28)
[2019-07-26] MEDS: CARVEDILOL 6.25 MG TABLET (FP) PO SCH ×2 (09:28→21:30)
[2019-07-26] MEDS: POLYETHYLENE GLYCOL 3350 119 GM BTL PO SCH ×2 (09:29→22:36)
--- NOTE | 2019-07-26 11:49 | DS ---
Physical Examination Vital Signs: Vital Signs Temperature 97.6 F 07/26/19 09:46 Pulse Rate 72 07/26/19 09:46 Respiratory Rate 20 07/26/19 09:46 Blood Pressure 135/67 07/26/19 09:46 O2 Sat by Pulse Oximetry (%) 96 07/26/19 09:00 Findings/Remarks: (1) Altered mental state Assessment/Plan: -2/2 to pneumonia -improved Problems reviewed: Yes Code(s): R41.82 - ALTERED MENTAL STATUS, UNSPECIFIED (2) Anemia Assessment/Plan: -LINDA -Iron polysaccharide 150 mg po daily -Injectafer one dose during this admission Problems reviewed: Yes Code(s): D64.9 - ANEMIA, UNSPECIFIED (3) CHF exacerbation Assessment/Plan: -Furosemide BID -Cardiology and Pulmonary on board -CXR shows atelectasis or scarring in LLL, atelectasis or infiltrate at medial right base -CT + pleural effusions -Echo 50-55% -1 L fluid restriction -daily weights -strict I&O -low sodium diabetic diet Problems reviewed: Yes Code(s): I50.9 - HEART FAILURE, UNSPECIFIED Qualifiers: Heart failure type: unspecified Qualified Code(s): I50.9 - Heart failure, unspecified (4) Pneumonia Assessment/Plan: -Pulmonary on board -CXR shows atelectasis or scarring in LLL, atelectasis or infiltrate at medial right base -Bronchodilators -PO medrol tapering dose -PPI for GI ppx -keep SpO2 >90% -O2 via NC, HFOT -Unasyn completed -CT chest done today, results pending -no leukocytosis -afebrile Code(s): J18.9 - PNEUMONIA, UNSPECIFIED ORGANISM (5) Acute on chronic renal insufficiency Assessment/Plan: -Seen by Nephrology on board -Cr stable at this time Problems reviewed: Yes Code(s): N28.9 - DISORDER OF KIDNEY AND URETER, UNSPECIFIED; N18.9 - CHRONIC KIDNEY DISEASE, UNSPECIFIED (6) Diabetes mellitus Assessment/Plan: -BGM AC HS -A1c at 8.0 -ISS -Started on Levemir 30 U QAM -Seen by Endocrinology consult -Diabetic/sodium diet Problems reviewed: Yes Code(s): E11.9 - TYPE 2 DIABETES MELLITUS WITHOUT COMPLICATIONS (7) Obesity, Class III, BMI 40-49.9 (morbid obesity) Assessment/Plan: -low calorie diabetic/sodium diet -RD consult Problems reviewed: Yes Code(s): E66.01 - MORBID (SEVERE) OBESITY DUE TO EXCESS CALORIES Assessment/Plan see problem list did poorly with PT Awaiting auth for SNF Constitutional: Yes: Well Nourished, No Distress, Calm Cardiovascular: Yes: Regular Rate and Rhythm Respiratory: Yes: Regular, On Nasal O2 Gastrointestinal: Yes: Normal Bowel Sounds, Soft, Abdomen, Obese Renal/: Yes: WNL Musculoskeletal: Yes: Muscle Weakness Extremities: Yes: WNL Edema: No Peripheral Pulses WNL: Yes Neurological: Yes: Alert, Oriented Psychiatric: Yes: Alert, Oriented Labs: CBC, BMP 07/24/19 06:50 07/26/19 06:05 Discharge Summary Problems reviewed: Yes Reason For Visit: ACUTE EXACERBATION OF CHF Current Active Problems Altered mental state (Acute) Anasarca (Acute) Anemia (Acute) CHF exacerbation (Acute) Hypercapnic respiratory failure (Acute) Hypothermia (Acute) Lethargy (Acute) Obesity, Class III, BMI 40-49.9 (morbid obesity) (Acute) Pneumonia (Acute) Laboratory Last Values WBC 11.1 K/mm3 (4.0-10.0) H 07/24/19 06:50 Corrected WBC (auto) Cancelled 07/14/19 19:10 RBC 3.56 M/mm3 (4.00-5.60) L 07/24/19 06:50 Hgb 9.8 GM/dL (11.7-16.9) L 07/24/19 06:50 Hct 31.1 % (35.4-49) L 07/24/19 06:50 MCV 87.3 fl (80-96) 07/24/19 06:50 MCH 27.6 pg (25.7-33.7) 07/24/19 06:50 MCHC 31.7 g/dl (32.0-35.9) L 07/24/19 06:50 RDW 14.9 % (11.9-15.9) 07/24/19 06:50 Plt Count 138 K/MM3 (134-434) 07/24/19 06:50 MPV 6.8 fl (7.5-11.1) L 07/24/19 06:50 Absolute Neuts (auto) 10.1 K/mm3 (1.5-8.0) H 07/24/19 06:50 Neutrophils % 90.7 % (42.8-82.8) H 07/24/19 06:50 Neutrophils % (Manual) 87.9 % (42.8-82.8) H 07/19/19 06:45 Band Neutrophils % 7.1 % 07/19/19 06:45 Lymphocytes % 4.2 % (8-40) L D 07/24/19 06:50 Lymphocytes % (Manual) 1.0 % (8-40) L D 07/19/19 06:45 Monocytes % 5.0 % (3.8-10.2) D 07/24/19 06:50 Monocytes % (Manual) 3 % (3.8-10.2) L 07/19/19 06:45 Eosinophils % 0.0 % (0-4.5) 07/24/19 06:50 Eosinophils % (Manual) 0.0 % (0-4.5) 07/19/19 06:45 Basophils % 0.1 % (0-2.0) 07/24/19 06:50 Basophils % (Manual) 0.0 % (0-2.0) 07/19/19 06:45 Myelocytes % (Man) 0 % (0-2) 07/19/19 06:45 Promyelocytes % (Man) 0 % (0-2) 07/19/19 06:45 Blast Cells % (Manual) 0 % (0-0) 07/19/19 06:45 Nucleated RBC % 0 % (0-0) 07/24/19 06:50 Metamyelocytes 0 % (0-2) 07/19/19 06:45 Hypochromia 0 07/19/19 06:45 Platelet Estimate Decreased 07/19/19 06:45 Platelet Comment Present 07/17/19 05:40 Polychromasia 1+ 07/19/19 06:45 Poikilocytosis 1+ 07/19/19 06:45 Basophilic Stippling 1+ 07/19/19 06:45 Anisocytosis 1+ 07/19/19 06:45 Microcytosis 1+ 07/19/19 06:45 Macrocytosis 0 07/19/19 06:45 Spherocytes 1+ 07/19/19 06:45 Tear Drop Cells 1+ 07/19/19 06:45 Ovalocytes 1+ 07/19/19 06:45 Throckmorton Cells 1+ 07/16/19 06:20 Acanthocytes (Spur) 1+ 07/17/19 05:40 PT with INR 17.50 SEC (9.7-13.0) H 07/14/19 22:46 INR 1.48 (0.83-1.09) H 07/14/19 22:46 PTT (Actin FS) 39.8 SECONDS (25.2-36.5) H 07/14/19 22:46 Anticoagulation Therapy No Result Required. 07/17/19 08:46 Puncture Site Right radial 07/17/19 08:46 ABG pH 7.32 (7.35-7.45) L 07/17/19 08:46 ABG pCO2 at Pt Temp 59.1 mmHg (35-45) H 07/17/19 08:46 ABG pO2 at Pt Temp 105 mmHg (80-100) H 07/17/19 08:46 ABG HCO3 29.5 mmol/L (22-27) H 07/17/19 08:46 ABG O2 Sat (Measured) 97.8 % (95-98) 07/17/19 08:46 ABG O2 Content 15.3 % vol 07/17/19 08:46 ABG Base Excess 2.7 meq/l (-2-2) H 07/17/19 08:46 Ishan Test Positive 07/17/19 08:46 O2 Delivery Device No Result Required. 07/17/19 08:46 Oxygen Flow Rate 30 07/17/19 08:46 Vent Mode No Result Required. 07/17/19 08:46 Vent Rate No Result Required. 07/17/19 08:46 Mechanical Rate No Result Required. 07/17/19 08:46 Pressure Support Vent No Result Required. 07/17/19 08:46 Sodium 139 mmol/L (136-145) 07/26/19 06:05 Potassium 4.0 mmol/L (3.5-5.1) 07/26/19 06:05 Chloride 91 mmol/L (98-107) L 07/26/19 06:05 Carbon Dioxide 45 mmol/L (21-32) H 07/26/19 06:05 Anion Gap 3 MMOL/L (8-16) L 07/26/19 06:05 BUN 81.0 mg/dL (7-18) H 07/26/19 06:05 Creatinine 2.1 mg/dL (0.55-1.3) H 07/26/19 06:05 Est GFR (CKD-EPI)AfAm 33.21 07/26/19 06:05 Est GFR (CKD-EPI)NonAf 28.66 07/26/19 06:05 POC Glucometer 148 UNITS (80-120) 07/26/19 11:21 Random Glucose 174 mg/dL (74-106) H 07/26/19 06:05 Hemoglobin A1c % 8.0 % (4.2-6.3) H 07/22/19 09:00 Lactic Acid 0.9 mmol/L (0.4-2.0) 07/16/19 11:46 Calcium 7.9 mg/dL (8.5-10.1) L 07/26/19 06:05 Phosphorus 3.6 mg/dL (2.5-4.9) 07/19/19 06:45 Magnesium 2.1 mg/dL (1.8-2.4) 07/20/19 07:05 Iron 15 ug/dL (50-175) L 07/15/19 12:38 TIBC 286 ug/dL (250-450) 07/15/19 12:38 Iron Saturation 5 % (17.5-39) L 07/15/19 12:38 Unsaturated IBC 271 ug/dL (200-275) 07/15/19 12:38 Total Bilirubin 0.6 mg/dL (0.2-1) 07/25/19 06:55 AST 16 U/L (15-37) 07/25/19 06:55 ALT 15 U/L (13-61) 07/25/19 06:55 Alkaline Phosphatase 55 U/L (45-117) 07/25/19 06:55 Creatine Kinase 112 U/L (26-308) 07/14/19 19:10 CK-MB (CK-2) 1.7 ng/mL (0.5-3.6) 07/14/19 19:10 Troponin I 0.14 ng/ml (0.00-0.05) H 07/15/19 00:53 B-Natriuretic Peptide 28898.7 pg/ml (5-450) H 07/14/19 19:10 Total Protein 5.9 g/dl (6.4-8.2) L 07/25/19 06:55 Albumin 2.4 g/dl (3.4-5.0) L 07/25/19 06:55 Triglycerides 106 mg/dL (0-150) 07/15/19 12:38 Cholesterol 168 mg/dL (50-200) 07/15/19 12:38 Total LDL Cholesterol 97 mg/dL (5-100) 07/15/19 12:38 HDL Cholesterol 60 mg/dL (40-60) 07/15/19 12:38 TSH 0.87 uIU/ml (0.358-3.74) D 07/17/19 05:40 Urine Color Yellow 07/14/19 22:25 Urine Appearance Clear 07/14/19 22:25 Urine pH 5.0 (5.0-8.0) 07/14/19 22:25 Ur Specific [place] 1.014 (1.010-1.035) 07/14/19 22:25 Urine Protein 3+ (NEGATIVE) H 07/14/19 22:25 Urine Glucose (UA) Negative (NEGATIVE) 07/14/19 22:25 Urine Ketones Negative (NEGATIVE) 07/14/19 22:25 Urine Blood 1+ (NEGATIVE) H 07/14/19 22:25 Urine Nitrite Negative (NEGATIVE) 07/14/19 22:25 Urine Bilirubin Negative (NEGATIVE) 07/14/19 22:25 Urine Urobilinogen 1.0 mg/dL (0.2-1.0) 07/14/19 22:25 Ur Leukocyte Esterase Negative (NEGATIVE) 07/14/19 22:25 Urine WBC (Auto) 1 /hpf (0-5) 07/14/19 22:25 Urine RBC (Auto) 5 /hpf (0-4) 07/14/19 22:25 Urine Casts (Auto) 13 /lpf (0-8) 07/14/19 22:25 U Pathogenic Cast Auto none seen /lpf (NEGATIVE) 07/14/19 22:25 U Epithel Cells (Auto) 1.8 /HPF (0-5/HPF) 07/14/19 22:25 Urine Crystals (Auto) Few /hpf 07/14/19 22:25 Urine Bacteria (Auto) 0.2 /hpf (NEGATIVE) 07/14/19 22:25 Blood Type B POSITIVE 07/14/19 19:10 Antibody Screen Negative 07/14/19 19:10 Microbiology 07/16/19 11:58 Blood - Peripheral Venous Blood Culture - Final NO GROWTH AFTER 5 DAYS INCUBATION 07/16/19 11:46 Blood - Peripheral Venous Blood Culture - Final NO GROWTH AFTER 5 DAYS INCUBATION 07/16/19 18:05 Urine For Antigen Detection Legionella Antigen - Final 07/16/19 18:05 Urine For Antigen Detection Streptococcus pneumoniae Antigen (M - Final 07/14/19 22:25 Urine - Urine - Catheterized Urine Culture - Final NO GROWTH OBTAINED Vital Signs Temp 97.6 F 07/26/19 09:46 Pulse 72 07/26/19 09:46 Resp 20 07/26/19 09:46 BP 135/67 07/26/19 09:46 Pulse Ox 96 07/26/19 09:00 Intake & Output 07/25/19 07/25/19 07/26/19 11:59 23:59 11:59 Intake Total 100 400 450 Output Total 600 Balance 100 -200 450 Weight 116.301 kg 111.3 kg Intake: IV 0 sl 0 IVPB 0 Oral 100 400 250 Oral Supplement 200 Output: Urine 600 [place] 600 Other: Voiding Method Incontinent Incontinent Incontinent # Unmeasured Voids [place] 1 Void 2 2 Bowel Movement Yes Yes No # Bowel Movements 1 Weight Measurement Method Patient Lift Scale Patient Lift Scale Condition: Stable - Instructions Diet, Activity, Other Instructions: bmp daily cxr twice a week Referrals: Chavez Montes De Oca MD [Primary Care Provider] - Disposition: INTERMEDIATE FACILITY - Home Medications Comprehensive Discharge Medication List: Ambulatory Orders Amlodipine Besylate [Norvasc -] 5 mg PO DAILY 07/15/19 Levothyroxine [Synthroid -] 25 mcg PO DAILY 07/15/19 Mycophenolate Mofetil [Cellcept -] 500 mg PO DAILY 07/15/19 Tamsulosin HCl [Flomax] 0.4 mg PO DAILY 07/15/19 levETIRAcetam [Keppra -] 500 mg PO BID 07/15/19 Albuterol 2.5/Ipratropium 0.5 [Duoneb -] 1 amp NEB RQID amp 07/25/19 Carvedilol [Coreg -] 6.25 mg PO BID tablet 07/25/19 Insulin (Levemir) [Levemir Vial] 30 units SQ AM units 07/25/19 Insulin Sliding Scale [Novolog Vial Sliding Scale -] 1 vial SQ ACHS units 07/25 Iron Polysaccharides [Niferex-150 -] 150 mg PO DAILY capsule 07/25/19 Metolazone [Zaroxolyn -] 2.5 mg PO Q2D@1000 tablet 07/25/19 Pantoprazole Sodium [Protonix -] 40 mg PO DAILY tablet.ec 07/25/19 Polyethylene Glycol 3350 [Miralax 119 gm Btl -] 17 gm PO BID bottle 07/25/19 Rosuvastatin [Crestor -] 10 mg PO HS tablet 07/25/19 Torsemide [Demadex -] 60 mg PO BID tablet 07/25/19 predniSONE [Deltasone -] 30 mg PO DAILY tablet 07/25/19 Prescription Drug Monitoring Program (I-STOP) results: I-STOP reviewed and no issues identified
--- NOTE | 2019-07-26 12:59 | PN ---
Progress Note (short form) - Note Progress Note: PULMONARY VSS/AFEBRILE Gen: NAD at rest Heart: RRR Lung: decreased breath sounds at the bases Abd: soft, nontender Ext: no edema LABS/MEDS/NOTES REVIEWED A/P Acute Hypercapneic Respiratory Failure improving Altered Mental Status improving Pneumonia likely Aspiration Acute COPD Exacerbation Acute on Chronic Diastolic Heart Failure Pulmonary HTN Acute on Chronic Renal Failure Atrial Fibrillation +Troponins likely Demand Ischemia CAD HTN Hyperlipidemia CKD BPH Seizure Disorder h/o CVA Anemia - O2 to keep SpO2 >90% - Lasix IVP BID - monitor urine output, creatinine - rate control - off anticoagulation due h/o GI bleed - Prednisone BRYANT TARANGO MD
[2019-07-26] MEDS ORDERED: INSULIN (NOVOLOG) ASPART 100 UNITS/ML 10ML VIAL ONE (16:57)
--- NOTE | 2019-07-26 17:14 | PN ---
Progress Note, Physician History of Present Illness: Pt seen and examined at bedside. He feels that his breathing is a little better. - Current Medication List Current Medications: Active Medications Acetaminophen (Tylenol -) 650 mg PO Q6H PRN PRN Reason: PAIN Last Admin: 07/25/19 12:13 Dose: 650 mg Albuterol/Ipratropium (Duoneb -) 1 amp NEB RQID [facility] Last Admin: 07/26/19 16:09 Dose: 1 amp Amlodipine Besylate (Norvasc -) 5 mg PO DAILY [facility] Last Admin: 07/26/19 09:27 Dose: 5 mg Carvedilol (Coreg -) 6.25 mg PO BID [facility] Last Admin: 07/26/19 09:28 Dose: 6.25 mg Insulin Aspart (Novolog Vial Sliding Scale -) 1 vial SQ ACHS [facility]; Protocol Last Admin: 07/26/19 17:00 Dose: 7 units Insulin Detemir (Levemir Vial) 30 units SQ AM [facility] Last Admin: 07/26/19 06:23 Dose: 30 units Levetiracetam (Keppra -) 500 mg PO BID [facility] Last Admin: 07/26/19 09:27 Dose: 500 mg Levothyroxine Sodium (Synthroid -) 25 mcg PO DAILY@0700 [facility] Last Admin: 07/26/19 06:22 Dose: 25 mcg Metolazone (Zaroxolyn -) 2.5 mg PO Q2D@1000 [facility] Last Admin: 07/25/19 11:31 Dose: 2.5 mg Mycophenolate Mofetil (Cellcept -) 500 mg PO DAILY [facility] Last Admin: 07/26/19 09:27 Dose: 500 mg Pantoprazole Sodium (Protonix -) 40 mg PO DAILY [facility] Last Admin: 07/26/19 09:27 Dose: 40 mg Polyethylene Glycol (Miralax (For Daily Use) -) 17 gm PO BID [facility] Last Admin: 07/26/19 09:29 Dose: Not Given Polysaccharide Iron Complex (Niferex-150 -) 150 mg PO DAILY [facility] Last Admin: 07/26/19 09:27 Dose: 150 mg Prednisone (Deltasone -) 20 mg PO DAILY [facility] Rosuvastatin Calcium (Crestor -) 10 mg PO HS [facility] Last Admin: 07/25/19 22:34 Dose: 10 mg Tamsulosin HCl (Flomax -) 0.4 mg PO DAILY@0830 [facility] Last Admin: 07/26/19 09:28 Dose: 0.4 mg Torsemide (Demadex -) 60 mg PO BID [facility] Last Admin: 07/26/19 09:28 Dose: 60 mg - Objective Vital Signs: Vital Signs Temperature 97.4 F L 07/26/19 15:21 Pulse Rate 69 07/26/19 15:21 Respiratory Rate 20 07/26/19 15:21 Blood Pressure 135/68 07/26/19 15:21 O2 Sat by Pulse Oximetry (%) 96 07/26/19 09:00 Constitutional: Yes: Calm Eyes: Yes: Conjunctiva Clear HENT: Yes: Atraumatic Cardiovascular: Yes: S1, S2 Respiratory: Yes: On Nasal O2 Gastrointestinal: Yes: Soft Genitourinary: Yes: WNL Musculoskeletal: Yes: WNL Edema: Yes Edema: LLE: 1+, RLE: 1+ Neurological: Yes: Oriented Psychiatric: Yes: Oriented Labs: CBC, BMP 07/24/19 06:50 07/26/19 06:05 INR, PTT INR 1.48 (0.83-1.09) H 07/14/19 22:46 Problem List - Problems (1) Altered mental state Code(s): R41.82 - ALTERED MENTAL STATUS, UNSPECIFIED (2) CHF exacerbation Code(s): I50.9 - HEART FAILURE, UNSPECIFIED Qualifiers: Heart failure type: unspecified Qualified Code(s): I50.9 - Heart failure, unspecified (3) CHF exacerbation Code(s): I50.9 - HEART FAILURE, UNSPECIFIED (4) CKD (chronic kidney disease) Code(s): N18.9 - CHRONIC KIDNEY DISEASE, UNSPECIFIED Assessment/Plan Current Medications Generic Name Dose Route Start Last Admin Trade Name Freq PRN Reason Stop Dose Admin Acetaminophen 650 mg 07/25/19 12:07 07/25/19 12:13 Tylenol - PO 650 mg Q6H PRN Administration PAIN Albuterol/Ipratropium 1 amp 07/23/19 08:00 07/26/19 16:09 Duoneb - NEB 1 amp RQID [facility] Administration Amlodipine Besylate 5 mg 07/23/19 10:00 07/26/19 09:27 Norvasc - PO 5 mg DAILY [facility] Administration Carvedilol 6.25 mg 02/03/20 11:45 07/26/19 09:28 Coreg - PO 6.25 mg BID [facility] Administration Insulin Aspart 1 vial 07/23/19 07:00 07/26/19 17:00 Novolog Vial Sliding Scale - SQ 7 units ACHS [facility] Administration Protocol Insulin Detemir 30 units 07/24/19 07:00 07/26/19 06:23 Levemir Vial SQ 30 units AM [facility] Administration Levetiracetam 500 mg 07/23/19 10:00 07/26/19 09:27 Keppra - PO 500 mg BID [facility] Administration Levothyroxine Sodium 25 mcg 07/24/19 07:00 07/26/19 06:22 Synthroid - PO 25 mcg DAILY@0700 [facility] Administration Metolazone 2.5 mg 07/25/19 10:00 07/25/19 11:31 Zaroxolyn - PO 2.5 mg Q2D@1000 [facility] Administration Mycophenolate Mofetil 500 mg 07/23/19 10:00 07/26/19 09:27 Cellcept - PO 500 mg DAILY [facility] Administration Pantoprazole Sodium 40 mg 07/23/19 11:00 07/26/19 09:27 Protonix - PO 40 mg DAILY [facility] Administration Polyethylene Glycol 17 gm 07/24/19 10:00 07/26/19 09:29 Miralax (For Daily Use) - PO Not Given BID [facility] Polysaccharide Iron Complex 150 mg 07/23/19 11:00 07/26/19 09:27 Niferex-150 - PO 150 mg DAILY [facility] Administration Prednisone 20 mg 07/27/19 10:00 Deltasone - PO DAILY [facility] Rosuvastatin Calcium 10 mg 07/23/19 22:00 07/25/19 22:34 Crestor - PO 10 mg HS [facility] Administration Tamsulosin HCl 0.4 mg 07/23/19 08:30 07/26/19 09:28 Flomax - PO 0.4 mg DAILY@0830 [facility] Administration Torsemide 40 mg 07/26/19 17:12 Demadex - PO BID [facility] Impression 1. CKD 2. CHF 3. BPH 4. a. fib 5. CAD 6. epilepsy 7. proteinuria 8. anemia 9. acute resp failure 10. 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
[2019-07-26 19:16] LABS: ARTERIAL BLD GAS O2 SATURATION 90.2 % (95-98); ARTERIAL BLOOD GAS BASE EXCESS 17.3 meq/l (-2-2); ARTERIAL BLOOD GAS PO2 61.1 mmHg (80-100); ARTERIAL BLOOD GAS pH 7.41 (7.35-7.45)
[2019-07-26 19:18] LABS: ALLENS TEST POSITIVE
[2019-07-26 19:21] LABS: ARTERIAL BLOOD GAS PCO2 71.4 mmHg (35-45)
[2019-07-26] MEDS: ROSUVASTATIN CA 10 MG TABLET (FP) PO SCH (21:30)
[2019-07-27] MEDS: INSULIN (LEVEMIR) 100 UNITS/ML UNITS SQ SCH (06:51)
[2019-07-27] MEDS: INSULIN SLIDING SCALE (NOVOLOG) 1 VIAL SQ SCH ×4 (06:51→23:12)
[2019-07-27] MEDS ORDERED: INSULIN (LEVEMIR) 100 UNITS/ML UNITS SQ ONE (06:58)
[2019-07-27] MEDS: ALBUTEROL SO4 2.5/IPRATROPIUM 0.5 INH SOL 3 ML VIAL.NEB. NEB SCH ×4 (07:30→19:50)
[2019-07-27 07:37] LABS: ALBUMIN 2.5 g/dl (3.4-5.0); ALK PHOS 62 U/L (45-117); ANION GAP 8 MMOL/L (8-16); BILIRUBIN,TOTAL 1.1 mg/dL (0.2-1); BLOOD UREA NITROGEN 83.6 mg/dL (7-18); CALCIUM 8.2 mg/dL (8.5-10.1); CHLORIDE 87 mmol/L (98-107); CO2 > 45 mmol/L (21-32); CREATININE 2.2 mg/dL (0.55-1.3); GLUCOSE,RANDOM 80 mg/dL (74-106); POTASSIUM 3.8 mmol/L (3.5-5.1); SGOT/AST 17 U/L (15-37); SGPT/ALT 17 U/L (13-61); SODIUM 140 mmol/L (136-145); TOT PROT 6.2 g/dl (6.4-8.2)
--- NOTE | 2019-07-27 09:31 | PN ---
Progress Note, Physician Chief Complaint: SOB CHF LETITIA Anemia History of Present Illness: NAD SOB improved On Torsemide 40 mg po BID - Current Medication List Current Medications: Active Medications Acetaminophen (Tylenol -) 650 mg PO Q6H PRN PRN Reason: PAIN Last Admin: 07/25/19 12:13 Dose: 650 mg Albuterol/Ipratropium (Duoneb -) 1 amp NEB RQID [facility] Last Admin: 07/27/19 07:30 Dose: 1 amp Amlodipine Besylate (Norvasc -) 5 mg PO DAILY [facility] Last Admin: 07/26/19 09:27 Dose: 5 mg Carvedilol (Coreg -) 6.25 mg PO BID [facility] Last Admin: 07/26/19 21:30 Dose: 6.25 mg Insulin Aspart (Novolog Vial Sliding Scale -) 1 vial SQ [facility]; Protocol Last Admin: 07/27/19 06:51 Dose: Not Given Insulin Detemir (Levemir Vial) 30 units SQ AM [facility] Last Admin: 07/27/19 06:51 Dose: 30 units Levetiracetam (Keppra -) 500 mg PO BID [facility] Last Admin: 07/26/19 21:30 Dose: 500 mg Levothyroxine Sodium (Synthroid -) 25 mcg PO DAILY@0700 [facility] Last Admin: 07/26/19 06:22 Dose: 25 mcg Metolazone (Zaroxolyn -) 2.5 mg PO Q2D@1000 [facility] Last Admin: 07/25/19 11:31 Dose: 2.5 mg Mycophenolate Mofetil (Cellcept -) 500 mg PO DAILY [facility] Last Admin: 07/26/19 09:27 Dose: 500 mg Pantoprazole Sodium (Protonix -) 40 mg PO DAILY [facility] Last Admin: 07/26/19 09:27 Dose: 40 mg Polyethylene Glycol (Miralax (For Daily Use) -) 17 gm PO BID [facility] Last Admin: 07/26/19 22:36 Dose: Not Given Polysaccharide Iron Complex (Niferex-150 -) 150 mg PO DAILY [facility] Last Admin: 07/26/19 09:27 Dose: 150 mg Prednisone (Deltasone -) 20 mg PO DAILY [facility] Rosuvastatin Calcium (Crestor -) 10 mg PO HS [facility] Last Admin: 07/26/19 21:30 Dose: 10 mg Tamsulosin HCl (Flomax -) 0.4 mg PO DAILY@0830 [facility] Last Admin: 07/26/19 09:28 Dose: 0.4 mg Torsemide (Demadex -) 40 mg PO BIDLASIX [facility] Last Admin: 07/26/19 21:30 Dose: Not Given - Objective Vital Signs: Vital Signs Temperature 97.9 F 07/27/19 06:00 Pulse Rate 76 07/27/19 06:00 Respiratory Rate 20 07/27/19 06:00 Blood Pressure 139/76 07/27/19 06:00 O2 Sat by Pulse Oximetry (%) 100 07/26/19 20:38 Constitutional: Yes: Well Nourished, No Distress, Calm Cardiovascular: Yes: Regular Rate and Rhythm Respiratory: Yes: Regular, CTA Bilaterally, On Nasal O2 Gastrointestinal: Yes: Normal Bowel Sounds, Soft Genitourinary: Yes: Incontinence Musculoskeletal: Yes: Muscle Weakness Extremities: Yes: WNL Edema: No Peripheral Pulses WNL: Yes Neurological: Yes: Alert, Oriented Psychiatric: Yes: Alert, Oriented Labs: CBC, BMP 07/24/19 06:50 07/27/19 06:40 INR, PTT INR 1.48 (0.83-1.09) H 07/14/19 22:46 Problem List - Problems (1) Altered mental state Assessment/Plan: -2/2 to pneumonia -improved Problems reviewed: Yes Code(s): R41.82 - ALTERED MENTAL STATUS, UNSPECIFIED (2) Anemia Assessment/Plan: -LINDA -Start Iron polysaccharide 150 mg po daily -Injectafer one dose this admission -stool ob negative -B12 pending Problems reviewed: Yes Code(s): D64.9 - ANEMIA, UNSPECIFIED (3) CHF exacerbation Assessment/Plan: -Torsemide 40 mg po BID -Cardiology and Pulmonary on board -CXR shows atelectasis or scarring in LLL, atelectasis or infiltrate at medial right base -Echo LVEF 50-55% -1 L fluid restriction -daily weights -strict I&O -low sodium diabetic diet Problems reviewed: Yes Code(s): I50.9 - HEART FAILURE, UNSPECIFIED Qualifiers: Heart failure type: unspecified Qualified Code(s): I50.9 - Heart failure, unspecified (4) Pneumonia Assessment/Plan: -Pulmonary on board -CXR shows atelectasis or scarring in LLL, atelectasis or infiltrate at medial right base -Bronchodilators -PO medrol tapering dose -PPI for GI ppx -keep SpO2 >90% -O2 via NC -Unasyn completed -CT chest reviewed -no leukocytosis -afebrile Problems reviewed: Yes Code(s): J18.9 - PNEUMONIA, UNSPECIFIED ORGANISM (5) Acute on chronic renal insufficiency Assessment/Plan: -Cr stable -Nephrology on board -Monitor daily BMP Problems reviewed: Yes Code(s): N28.9 - DISORDER OF KIDNEY AND URETER, UNSPECIFIED; N18.9 - CHRONIC KIDNEY DISEASE, UNSPECIFIED (6) Diabetes mellitus Assessment/Plan: -BGM AC HS -A1c at 8.0 -ISS -Levemir increased to 30 U QAM -Endocrinology consult appreciated -Diabetic/sodium diet Problems reviewed: Yes Code(s): E11.9 - TYPE 2 DIABETES MELLITUS WITHOUT COMPLICATIONS (7) Obesity, Class III, BMI 40-49.9 (morbid obesity) Assessment/Plan: -low calorie diabetic/sodium diet -RD consult Problems reviewed: Yes Code(s): E66.01 - MORBID (SEVERE) OBESITY DUE TO EXCESS CALORIES Assessment/Plan see problem list did poorly with PT wants pt to go to [facility] pending
[2019-07-27] MEDS: CARVEDILOL 6.25 MG TABLET (FP) PO SCH ×2 (10:02→23:10)
[2019-07-27] MEDS: TAMSULOSIN HCL 0.4 MG CAP PO SCH (10:02)
[2019-07-27] MEDS: MYCOPHENOLATE MOFETIL 500 MG TABLET PO SCH (10:02)
[2019-07-27] MEDS: levETIRAcetam 500 MG TABLET (FP) PO SCH ×2 (10:02→23:10)
[2019-07-27] MEDS: predniSONE 20 MG TABLET (UD) PO SCH (10:02)
[2019-07-27] MEDS: IRON POLYSACCHARIDES 150 MG CAPSULE PO SCH (10:03)
[2019-07-27] MEDS: METOLAZONE 2.5 MG TABLET (FP) PO SCH (10:03)
[2019-07-27] MEDS: amLODIPine BESYLATE 5 MG TABLET (FP) PO SCH (10:03)
[2019-07-27] MEDS: PANTOPRAZOLE 40 MG TABLET PO SCH (10:03)
[2019-07-27] MEDS: POLYETHYLENE GLYCOL 3350 119 GM BTL PO SCH ×2 (10:03→23:11)
--- NOTE | 2019-07-27 12:06 | PN ---
Progress Note (short form) - Note Progress Note: PULMONARY VSS/AFEBRILE Resting comfortably Gen: NAD at rest Heart: RRR Lung: decreased breath sounds at the bases Abd: soft, nontender Ext: no edema/scd's in place LABS/MEDS/NOTES REVIEWED A/P Acute Hypercapneic Respiratory Failure improving Altered Mental Status improving Pneumonia likely Aspiration Acute COPD Exacerbation Acute on Chronic Diastolic Heart Failure Pulmonary HTN Acute on Chronic Renal Failure Atrial Fibrillation +Troponins likely Demand Ischemia CAD HTN Hyperlipidemia CKD BPH Seizure Disorder h/o CVA Anemia - O2 to keep SpO2 >90% - Lasix IVP BID - monitor urine output, creatinine - rate control - off anticoagulation due h/o GI bleed - Prednisone BRYANT TARANGO MD
[2019-07-27 16:21] LABS: ARTERIAL BLD GAS O2 SATURATION 88.3 % (95-98); ARTERIAL BLOOD GAS BASE EXCESS 23.6 meq/l (-2-2); ARTERIAL BLOOD GAS PO2 55.5 mmHg (80-100); ARTERIAL BLOOD GAS pH 7.47 (7.35-7.45)
[2019-07-27 16:23] LABS: ALLENS TEST POSITIVE
[2019-07-27] MEDS ORDERED: INSULIN (NOVOLOG) ASPART 100 UNITS/ML 10ML VIAL ONE (17:18)
--- NOTE | 2019-07-27 18:39 | PN ---
Progress Note, Physician History of Present Illness: Pt seen and examined at bedside. he is drowsy. - Current Medication List Current Medications: Active Medications Acetaminophen (Tylenol -) 650 mg PO Q6H PRN PRN Reason: PAIN Last Admin: 07/25/19 12:13 Dose: 650 mg Albuterol/Ipratropium (Duoneb -) 1 amp NEB RQID [facility] Last Admin: 07/27/19 16:00 Dose: 1 amp Amlodipine Besylate (Norvasc -) 5 mg PO DAILY [facility] Last Admin: 07/27/19 10:03 Dose: 5 mg Carvedilol (Coreg -) 6.25 mg PO BID [facility] Last Admin: 07/27/19 10:02 Dose: 6.25 mg Insulin Aspart (Novolog Vial Sliding Scale -) 1 vial SQ [facility]; Protocol Last Admin: 07/27/19 18:19 Dose: Not Given Insulin Detemir (Levemir Vial) 30 units SQ AM [facility] Last Admin: 07/27/19 06:51 Dose: 30 units Levetiracetam (Keppra -) 500 mg PO BID [facility] Last Admin: 07/27/19 10:02 Dose: 500 mg Levothyroxine Sodium (Synthroid -) 25 mcg PO DAILY@0700 [facility] Last Admin: 07/26/19 06:22 Dose: 25 mcg Metolazone (Zaroxolyn -) 2.5 mg PO Q2D@1000 [facility] Last Admin: 07/27/19 10:03 Dose: 2.5 mg Mycophenolate Mofetil (Cellcept -) 500 mg PO DAILY [facility] Last Admin: 07/27/19 10:02 Dose: 500 mg Pantoprazole Sodium (Protonix -) 40 mg PO DAILY [facility] Last Admin: 07/27/19 10:03 Dose: 40 mg Polyethylene Glycol (Miralax (For Daily Use) -) 17 gm PO BID [facility] Last Admin: 07/27/19 10:03 Dose: Not Given Polysaccharide Iron Complex (Niferex-150 -) 150 mg PO DAILY [facility] Last Admin: 07/27/19 10:03 Dose: 150 mg Prednisone (Deltasone -) 20 mg PO DAILY [facility] Last Admin: 07/27/19 10:02 Dose: 20 mg Rosuvastatin Calcium (Crestor -) 10 mg PO HS [facility] Last Admin: 07/26/19 21:30 Dose: 10 mg Tamsulosin HCl (Flomax -) 0.4 mg PO DAILY@0830 [facility] Last Admin: 07/27/19 10:02 Dose: 0.4 mg Torsemide (Demadex -) 40 mg PO BIDLASIX [facility] Last Admin: 07/26/19 21:30 Dose: Not Given - Objective Vital Signs: Vital Signs Temperature 97.4 F L 07/27/19 15:00 Pulse Rate 76 07/27/19 15:00 Respiratory Rate 20 07/27/19 15:00 Blood Pressure 130/65 07/27/19 15:00 O2 Sat by Pulse Oximetry (%) 99 07/27/19 09:00 Constitutional: Yes: Calm Eyes: Yes: Conjunctiva Clear HENT: Yes: Atraumatic Neck: Yes: Supple Cardiovascular: Yes: S1, S2 Respiratory: Yes: On Nasal O2 Gastrointestinal: Yes: Soft Genitourinary: Yes: WNL, Incontinence Edema: Yes Edema: LLE: 1+, RLE: 1+ Neurological: Yes: Other (drowsy) Labs: CBC, BMP 07/24/19 06:50 07/27/19 06:40 INR, PTT INR 1.48 (0.83-1.09) H 07/14/19 22:46 Problem List - Problems (1) Altered mental state Code(s): R41.82 - ALTERED MENTAL STATUS, UNSPECIFIED (2) CHF exacerbation Code(s): I50.9 - HEART FAILURE, UNSPECIFIED Qualifiers: Heart failure type: unspecified Qualified Code(s): I50.9 - Heart failure, unspecified (3) CHF exacerbation Code(s): I50.9 - HEART FAILURE, UNSPECIFIED (4) CKD (chronic kidney disease) Code(s): N18.9 - CHRONIC KIDNEY DISEASE, UNSPECIFIED Assessment/Plan Current Medications Generic Name Dose Route Start Last Admin Trade Name Freq PRN Reason Stop Dose Admin Acetaminophen 650 mg 07/25/19 12:07 07/25/19 12:13 Tylenol - PO 650 mg Q6H PRN Administration PAIN Acetazolamide 250 mg 07/27/19 18:36 Diamox - PO 07/27/19 18:37 ONCE ONE Albuterol/Ipratropium 1 amp 07/23/19 08:00 07/27/19 16:00 Duoneb - NEB 1 amp RQID [facility] Administration Amlodipine Besylate 5 mg 07/23/19 10:00 07/27/19 10:03 Norvasc - PO 5 mg DAILY [facility] Administration Carvedilol 6.25 mg 07/21/19 11:45 07/27/19 10:02 Coreg - PO 6.25 mg BID [facility] Administration Insulin Aspart 1 vial 07/23/19 07:00 07/27/19 18:19 Novolog Vial Sliding Scale - SQ Not Given ACHS [facility] Protocol Insulin Detemir 30 units 07/24/19 07:00 07/27/19 06:51 Levemir Vial SQ 30 units AM [facility] Administration Levetiracetam 500 mg 07/23/19 10:00 07/27/19 10:02 Keppra - PO 500 mg BID [facility] Administration Levothyroxine Sodium 25 mcg 07/24/19 07:00 07/26/19 06:22 Synthroid - PO 25 mcg DAILY@0700 [facility] Administration Metolazone 2.5 mg 07/25/19 10:00 07/27/19 10:03 Zaroxolyn - PO 2.5 mg Q2D@1000 [facility] Administration Mycophenolate Mofetil 500 mg 07/23/19 10:00 07/27/19 10:02 Cellcept - PO 500 mg DAILY [facility] Administration Pantoprazole Sodium 40 mg 07/23/19 11:00 07/27/19 10:03 Protonix - PO 40 mg DAILY [facility] Administration Polyethylene Glycol 17 gm 07/24/19 10:00 07/27/19 10:03 Miralax (For Daily Use) - PO Not Given BID [facility] Polysaccharide Iron Complex 150 mg 07/23/19 11:00 07/27/19 10:03 Niferex-150 - PO 150 mg DAILY [facility] Administration Prednisone 20 mg 07/27/19 10:00 07/27/19 10:02 Deltasone - PO 20 mg DAILY [facility] Administration Rosuvastatin Calcium 10 mg 07/23/19 22:00 07/26/19 21:30 Crestor - PO 10 mg HS [facility] Administration Tamsulosin HCl 0.4 mg 07/23/19 08:30 07/27/19 10:02 Flomax - PO 0.4 mg DAILY@0830 [facility] Administration Torsemide 40 mg 07/26/19 18:15 07/26/19 21:30 Demadex - PO Not Given BIDLASIX [facility] Impression 1. CKD 2. CHF 3. BPH 4. a. fib 5. CAD 6. epilepsy 7. proteinuria 8. anemia 9. acute resp failure 10. 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
[2019-07-27] MEDS ORDERED: acetaZOLAMIDE 250 MG TABLET PO ONE (19:00)
[2019-07-27] MEDS: ROSUVASTATIN CA 10 MG TABLET (FP) PO SCH (23:10)
[2019-07-28] MEDS: TORSEMIDE 20 MG TABLET (FP) PO SCH ×2 (06:27→14:25)
[2019-07-28] MEDS: LEVOTHYROXINE NA 25 MCG TABLET (FP) PO SCH ×2 (06:46→11:43)
[2019-07-28] MEDS: INSULIN (LEVEMIR) 100 UNITS/ML UNITS SQ SCH (06:46)
[2019-07-28] MEDS: INSULIN SLIDING SCALE (NOVOLOG) 1 VIAL SQ SCH ×2 (06:47→12:49)
[2019-07-28 09:06] LABS: ALBUMIN 2.6 g/dl (3.4-5.0); ALK PHOS 73 U/L (45-117); ANION GAP 5 MMOL/L (8-16); BILIRUBIN,TOTAL 1.4 mg/dL (0.2-1); BLOOD UREA NITROGEN 87.1 mg/dL (7-18); CHLORIDE 89 mmol/L (98-107); CO2 > 45 mmol/L (21-32); CREATININE 2.1 mg/dL (0.55-1.3); GLUCOSE,RANDOM 93 mg/dL (74-106); POTASSIUM 3.6 mmol/L (3.5-5.1); SGOT/AST 30 U/L (15-37); SGPT/ALT 23 U/L (13-61); SODIUM 139 mmol/L (136-145); TOT PROT 6.2 g/dl (6.4-8.2)
--- NOTE | 2019-07-28 09:20 | DS ---
Physical Examination Vital Signs: Vital Signs Temperature 97.6 F 07/28/19 06:00 Pulse Rate 79 07/28/19 06:00 Respiratory Rate 20 07/28/19 06:00 Blood Pressure 125/91 07/28/19 06:00 O2 Sat by Pulse Oximetry (%) 94 L 07/28/19 08:03 Cardiovascular: Yes: Regular Rate and Rhythm Respiratory: Yes: Regular, CTA Bilaterally Gastrointestinal: Yes: Normal Bowel Sounds, Soft. No: Tenderness Labs: CBC, BMP 07/24/19 06:50 07/28/19 08:05 Discharge Summary Problems reviewed: Yes Reason For Visit: ACUTE EXACERBATION OF CHF Current Active Problems Altered mental state (Acute) Anasarca (Acute) Anemia (Acute) CHF exacerbation (Acute) Hypercapnic respiratory failure (Acute) Hypothermia (Acute) Lethargy (Acute) Obesity, Class III, BMI 40-49.9 (morbid obesity) (Acute) Pneumonia (Acute) Hospital Course: (1) Altered mental state Assessment/Plan: -2/2 to pneumonia -improved Problems reviewed: Yes Code(s): R41.82 - ALTERED MENTAL STATUS, UNSPECIFIED (2) Anemia Assessment/Plan: -LINDA -Iron polysaccharide 150 mg po daily -Injectafer one dose during this admission Problems reviewed: Yes Code(s): D64.9 - ANEMIA, UNSPECIFIED (3) CHF exacerbation Assessment/Plan: -Furosemide BID -Cardiology and Pulmonary on board -CXR shows atelectasis or scarring in LLL, atelectasis or infiltrate at medial right base -CT + pleural effusions -Echo 50-55% -1 L fluid restriction -daily weights -strict I&O -low sodium diabetic diet Problems reviewed: Yes Code(s): I50.9 - HEART FAILURE, UNSPECIFIED Qualifiers: Heart failure type: unspecified Qualified Code(s): I50.9 - Heart failure, unspecified (4) Pneumonia Assessment/Plan: -Pulmonary on board -CXR shows atelectasis or scarring in LLL, atelectasis or infiltrate at medial right base -Bronchodilators -PO medrol tapering dose -PPI for GI ppx -keep SpO2 >90% -O2 via NC, HFOT -Unasyn completed -CT chest done today, results pending -no leukocytosis -afebrile Code(s): J18.9 - PNEUMONIA, UNSPECIFIED ORGANISM (5) Acute on chronic renal insufficiency Assessment/Plan: -Seen by Nephrology on board -Cr stable at this time Problems reviewed: Yes Code(s): N28.9 - DISORDER OF KIDNEY AND URETER, UNSPECIFIED; N18.9 - CHRONIC KIDNEY DISEASE, UNSPECIFIED (6) Diabetes mellitus Assessment/Plan: -BGM AC HS -A1c at 8.0 -ISS -Started on Levemir 30 U QAM -Seen by Endocrinology consult -Diabetic/sodium diet Problems reviewed: Yes Code(s): E11.9 - TYPE 2 DIABETES MELLITUS WITHOUT COMPLICATIONS (7) Obesity, Class III, BMI 40-49.9 (morbid obesity) Assessment/Plan: -low calorie diabetic/sodium diet -RD consult Problems reviewed: Yes Code(s): E66.01 - MORBID (SEVERE) OBESITY DUE TO EXCESS CALORIES Condition: Stable - Instructions Diet, Activity, Other Instructions: bmp daily cxr twice a week Referrals: Chavez Montes De Oca MD [Primary Care Provider] - [facility] - Home Medications Comprehensive Discharge Medication List: Ambulatory Orders Amlodipine Besylate [Norvasc -] 5 mg PO DAILY 07/15/19 Levothyroxine [Synthroid -] 25 mcg PO DAILY 07/15/19 Mycophenolate Mofetil [Cellcept -] 500 mg PO DAILY 07/15/19 Tamsulosin HCl [Flomax] 0.4 mg PO DAILY 07/15/19 levETIRAcetam [Keppra -] 500 mg PO BID 07/15/19 Albuterol 2.5/Ipratropium 0.5 [Duoneb -] 1 amp NEB RQID amp 07/25/19 Carvedilol [Coreg -] 6.25 mg PO BID tablet 07/25/19 Insulin (Levemir) [Levemir Vial] 30 units SQ AM units 07/25/19 Insulin Sliding Scale [Novolog Vial Sliding Scale -] 1 vial SQ ACHS units 07/25 Iron Polysaccharides [Niferex-150 -] 150 mg PO DAILY capsule 07/25/19 Metolazone [Zaroxolyn -] 2.5 mg PO Q2D@1000 tablet 07/25/19 Pantoprazole Sodium [Protonix -] 40 mg PO DAILY tablet.ec 07/25/19 Polyethylene Glycol 3350 [Miralax 119 gm Btl -] 17 gm PO BID bottle 07/25/19 Rosuvastatin [Crestor -] 10 mg PO HS tablet 07/25/19 Torsemide [Demadex -] 60 mg PO BID tablet 07/25/19 predniSONE [Deltasone -] 30 mg PO DAILY tablet 07/25/19
[2019-07-28] MEDS ORDERED: acetaZOLAMIDE 250 MG TABLET PO SCH (10:00)
[2019-07-28] MEDS: PANTOPRAZOLE 40 MG TABLET PO SCH (11:37)
[2019-07-28] MEDS: levETIRAcetam 500 MG TABLET (FP) PO SCH (11:37)
[2019-07-28] MEDS: TAMSULOSIN HCL 0.4 MG CAP PO SCH (11:37)
[2019-07-28] MEDS: predniSONE 20 MG TABLET (UD) PO SCH (11:37)
[2019-07-28] MEDS: amLODIPine BESYLATE 5 MG TABLET (FP) PO SCH (11:37)
[2019-07-28] MEDS: POLYETHYLENE GLYCOL 3350 119 GM BTL PO SCH (11:38)
[2019-07-28] MEDS: IRON POLYSACCHARIDES 150 MG CAPSULE PO SCH (11:38)
[2019-07-28] MEDS: CARVEDILOL 6.25 MG TABLET (FP) PO SCH (11:39)
[2019-07-28] MEDS ORDERED: PT OWN MED DRAWER 7, Y5N ONE (11:40)
[2019-07-28 12:12] VITALS: BP 125/72; PULSE 86; TEMP 98
--- NOTE | 2019-07-28 13:48 | PN ---
Progress Note (short form) - Note Progress Note: Awake and alert. Denies shortness of breath, chest pain. Saturating well on nasal cannula. No acute events overnight. Intake & Output 07/25/19 07/26/19 07/27/19 07/28/19 23:59 23:59 23:59 23:59 Intake Total 500 1250 600 10 Output Total 600 Balance -100 1250 600 10 Weight 256 lb 6.4 oz 245 lb 6 oz 239 lb 232 lb 4 oz Last Vital Signs Temp Pulse Resp BP Pulse Ox 98 F 86 18 125/72 97 07/28/19 10:00 07/28/19 10:00 07/28/19 10:00 07/28/19 10:00 07/28/19 09:00 Active Medications Acetaminophen (Tylenol -) 650 mg PO Q6H PRN PRN Reason: PAIN Last Admin: 07/25/19 12:13 Dose: 650 mg Acetazolamide (Diamox -) 250 mg PO BID [facility] Last Admin: 07/28/19 11:42 Dose: 250 mg Amlodipine Besylate (Norvasc -) 5 mg PO DAILY [facility] Last Admin: 07/28/19 11:37 Dose: 5 mg Carvedilol (Coreg -) 6.25 mg PO BID [facility] Last Admin: 07/28/19 11:39 Dose: 6.25 mg Insulin Aspart (Novolog Vial Sliding Scale -) 1 vial SQ ACHS [facility]; Protocol Last Admin: 07/28/19 12:49 Dose: Not Given Insulin Detemir (Levemir Vial) 30 units SQ AM [facility] Last Admin: 07/28/19 06:46 Dose: 30 units Levetiracetam (Keppra -) 500 mg PO BID [facility] Last Admin: 07/28/19 11:37 Dose: 500 mg Levothyroxine Sodium (Synthroid -) 25 mcg PO DAILY@0700 [facility] Last Admin: 07/28/19 11:43 Dose: Not Given Metolazone (Zaroxolyn -) 2.5 mg PO Q2D@1000 [facility] Last Admin: 07/27/19 10:03 Dose: 2.5 mg Mycophenolate Mofetil (Cellcept -) 500 mg PO DAILY [facility] Last Admin: 07/27/19 10:02 Dose: 500 mg Pantoprazole Sodium (Protonix -) 40 mg PO DAILY [facility] Last Admin: 07/28/19 11:37 Dose: 40 mg Polyethylene Glycol (Miralax (For Daily Use) -) 17 gm PO BID [facility] Last Admin: 07/28/19 11:38 Dose: Not Given Polysaccharide Iron Complex (Niferex-150 -) 150 mg PO DAILY [facility] Last Admin: 07/28/19 11:38 Dose: 150 mg Prednisone (Deltasone -) 20 mg PO DAILY [facility] Last Admin: 07/28/19 11:37 Dose: 20 mg Rosuvastatin Calcium (Crestor -) 10 mg PO HS [facility] Last Admin: 07/27/19 23:10 Dose: 10 mg Tamsulosin HCl (Flomax -) 0.4 mg PO DAILY@0830 [facility] Last Admin: 07/28/19 11:37 Dose: 0.4 mg Torsemide (Demadex -) 40 mg PO BIDLASIX [facility] Last Admin: 07/28/19 06:27 Dose: 40 mg Gen: NAD at rest Heart: RRR Lung: decreased breath sounds at the bases Abd: soft, nontender Ext: no edema Laboratory Results - last 24 hr 07/27/19 07/27/19 07/27/19 16:05 17:33 22:55 Anticoagulation Therapy No Result Required. Puncture Site Right brachial ABG pH 7.47 H ABG pCO2 at Pt Temp 70.0 H ABG pO2 at Pt Temp 55.5 L ABG HCO3 50.8 H ABG O2 Sat (Measured) 88.3 L ABG O2 Content 10.9 ABG Base Excess 23.6 H Ishan Test Positive O2 Delivery Device Nasal Oxygen Flow Rate 3l Vent Mode No Result Required. Vent Rate No Result Required. Mechanical Rate No Result Required. Pressure Support Vent No Result Required. Sodium Potassium Chloride Carbon Dioxide Anion Gap BUN Creatinine Est GFR (CKD-EPI)AfAm Est GFR (CKD-EPI)NonAf POC Glucometer 137 167 Random Glucose Calcium Total Bilirubin AST ALT Alkaline Phosphatase Total Protein Albumin 07/28/19 07/28/19 07/28/19 05:48 06:18 08:05 Anticoagulation Therapy Puncture Site ABG pH ABG pCO2 at Pt Temp ABG pO2 at Pt Temp ABG HCO3 ABG O2 Sat (Measured) ABG O2 Content ABG Base Excess Ishan Test O2 Delivery Device Oxygen Flow Rate Vent Mode Vent Rate Mechanical Rate Pressure Support Vent Sodium 139 Potassium 3.6 Chloride 89 L Carbon Dioxide > 45 H Anion Gap 5 L BUN 87.1 H Creatinine 2.1 H Est GFR (CKD-EPI)AfAm 33.21 Est GFR (CKD-EPI)NonAf 28.66 POC Glucometer 64 104 Random Glucose 93 Calcium 8.0 L Total Bilirubin 1.4 H AST 30 ALT 23 Alkaline Phosphatase 73 Total Protein 6.2 L Albumin 2.6 L 07/28/19 12:44 Anticoagulation Therapy Puncture Site ABG pH ABG pCO2 at Pt Temp ABG pO2 at Pt Temp ABG HCO3 ABG O2 Sat (Measured) ABG O2 Content ABG Base Excess Ishan Test O2 Delivery Device Oxygen Flow Rate Vent Mode Vent Rate Mechanical Rate Pressure Support Vent Sodium Potassium Chloride Carbon Dioxide Anion Gap BUN Creatinine Est GFR (CKD-EPI)AfAm Est GFR (CKD-EPI)NonAf POC Glucometer 183 Random Glucose Calcium Total Bilirubin AST ALT Alkaline Phosphatase Total Protein Albumin A/P Acute Hypercapneic Respiratory Failure improving Altered Mental Status improving Pneumonia likely Aspiration Acute COPD Exacerbation Acute on Chronic Diastolic Heart Failure Pulmonary HTN Acute on Chronic Renal Failure Atrial Fibrillation +Troponins likely Demand Ischemia CAD HTN Hyperlipidemia CKD BPH Seizure Disorder h/o CVA Anemia - O2 to keep SpO2 >90% - Lasix - rate control - off anticoagulation due h/o GI bleed - Prednisone OD - DC planning Dr oCntreras
[2019-07-28] MEDS: MYCOPHENOLATE MOFETIL 500 MG TABLET PO SCH (14:22)
== END 2019-07-28 14:50 | DRG 291 ==
LOC: JER 18:24 → JERBED 23:38 → J2W 07-15 03:47 → JICU 07-15 10:24 → J4S 07-15 10:25 → JICU 07-16 11:41 → J4W 07-18 22:09 → J7W 07-20 18:18
PROVIDERS: ADMIT Family Medicine; ATTEND Family Medicine
PROC: 5A09357 Assistance with Respiratory Ventilation, Less than 24 Consecutive Hours, Continuous Positive Airway Pressure (ICD-10-PCS; principal; 2019-07-28)
DX: I13.0 Hypertensive heart and chronic kidney disease with heart failure and stage 1 through stage 4 chronic kidney disease, or unspecified chronic kidney disease (principal); J96.02 Acute respiratory failure with hypercapnia; I50.43 Acute on chronic combined systolic (congestive) and diastolic (congestive) heart failure; J69.0 Pneumonitis due to inhalation of food and vomit; I69.351 Hemiplegia and hemiparesis following cerebral infarction affecting right dominant side; E87.0 Hyperosmolality and hypernatremia; J44.1 Chronic obstructive pulmonary disease with (acute) exacerbation; N17.9 Acute kidney failure, unspecified; J98.11 Atelectasis; I25.10 Atherosclerotic heart disease of native coronary artery without angina pectoris; Z85.038 Personal history of other malignant neoplasm of large intestine; I34.0 Nonrheumatic mitral (valve) insufficiency; N18.3 Chronic kidney disease, stage 3 (moderate); E03.9 Hypothyroidism, unspecified; N40.0 Benign prostatic hyperplasia without lower urinary tract symptoms; I27.20 Pulmonary hypertension, unspecified; D64.9 Anemia, unspecified; K29.70 Gastritis, unspecified, without bleeding; I48.0 Paroxysmal atrial fibrillation; I36.1 Nonrheumatic tricuspid (valve) insufficiency; G40.909 Epilepsy, unspecified, not intractable, without status epilepticus; R68.0 Hypothermia, not associated with low environmental temperature; Z98.61 Coronary angioplasty status; I42.9 Cardiomyopathy, unspecified; E66.9 Obesity, unspecified; Z68.35 Body mass index [BMI] 35.0-35.9, adult
CPT/HCPCS: 36415; 36600; 70450-TC; 71045-TC-FY; 71250-TC; 80048; 80053; 80061; 81003; 82040; 82272; 82550; 82553; 82607; 82803; 82962; 83036; 83540; 83550; 83605; 83721; 83735; 83880; 84100; 84443; 84484; 85025; 85027; 85610; 85730; 86850; 86900; 86901; 87040; 87086; 87899; 93005; 93010; 93306-TC; 94640; 94660; 97116-GP; 97161-GP; 99285-25; J1439; J7517

== ENCOUNTER 2019-12-03 19:47 | Inpatient (IN) | payer OTHER, BC ==
--- NOTE | 2019-12-03 20:00 | PDOC ---
Attending Attestation - Resident Resident Name: JenniRachael - ED Attending Attestation I have performed the following: I have examined & evaluated the patient, The case was reviewed & discussed with the resident, I agree w/resident's findings & plan - HPI HPI: 12/03/19 20:00 see resident hpi - Physicial Exam PE: 12/03/19 20:00 see resident exam - Medical Decision Making 12/03/19 21:46 79-year-old male recently discharged from this facility now with weakness, per patient his is unable to assist him properly and he is at risk for fall He has multiple open wounds secondary to bullous pemphigoid Will repeat labs and admit to medical service for social service/rehab consult Discharge - Discharge Information Problems reviewed: Yes Clinical Impression/Diagnosis: Unable to ambulate, Generalized weakness, Blisters of multiple sites, Bullous pemphigoid, Caregiver unable to cope Condition: Stable - Follow up/Referral - Patient Discharge Instructions - Post Discharge Activity
--- NOTE | 2019-12-03 20:16 | PDOC ---
History of Present Illness - General Stated Complaint: SICK Time Seen by Provider: 12/03/19 19:56 Past History - Medical History Allergies/Adverse Reactions: Allergies Allergy/AdvReac Type Severity Reaction Status Date / Time No Known Allergies Allergy Verified 11/13/19 11:04 Home Medications: Ambulatory Orders Levothyroxine [Synthroid -] 25 mcg PO DAILY 07/15/19 Tamsulosin HCl [Flomax] 0.4 mg PO DAILY 07/15/19 levETIRAcetam [Keppra -] 500 mg PO BID 07/15/19 Cholecalciferol (Vitamin D3) [Vitamin D -] 800 unit PO DAILY tab 08/26/19 Apixaban [Eliquis -] 2.5 mg PO BID #60 tablet 08/31/19 Carvedilol [Coreg -] 25 mg PO BID 11/06/19 Omeprazole 20 mg PO DAILY 11/06/19 Rosuvastatin [Crestor -] 10 mg PO DAILY 11/06/19 Furosemide [Lasix -] 20 mg PO DAILY tablet 12/06/19 Mycophenolate Mofetil [Cellcept -] 500 mg PO BID tablet 12/06/19 predniSONE [Deltasone -] 60 mg PO DAILY tablet 12/06/19 Anemia: Yes Cancer: Yes (colon) Cardiac Disorders: Yes (CHF, CAD, AF) CVA: Yes (Right sided weakness 2009) COPD: No CHF: Yes Diabetes: No (denies) GI Disorders: Yes (cholelithiasis) Disorders: Yes (bph) HTN: Yes Hypercholesterolemia: Yes Seizures: Yes - Surgical History Abdominal Surgery: Yes (HERNIA) Appendectomy: Yes Cardiac Surgery: Yes (STENT X 1) Neurologic Surgery: Yes (brain tumor) Orthopedic Surgery: Yes (L. elbow) - Immunization History Immunization Up to Date: Yes - Psycho-Social/Smoking History Smoking Status: Yes Smoking History: Former smoker Have you smoked in the past 12 months: No Number of Cigarettes Smoked Daily: 4 If you are a former smoker, when did you quit?: 32 Information on smoking cessation initiated: No 'Breaking Loose' booklet given: 07/07/15 - Substance Abuse Hx (Audit-C & DAST Scrn) How often the patient has a drink containing alcohol: Never Score: In Men: 4 or > Positive; In Women: 3 or > Positive: 0 Screen Result (Pos requires Nsg. Audit-10AR): Negative *Physical Exam - Vital Signs Last Vital Signs Temp Pulse Resp BP Pulse Ox 98.2 F 90 19 121/72 90 L 12/03/19 19:48 12/03/19 19:48 12/03/19 19:48 12/03/19 19:48 12/03/19 19:48 ED Treatment Course - LABORATORY CBC & Chemistry Diagram: 12/18/19 05:00 12/18/19 05:00 Medical Decision Making - Medical Decision Making 12/03/19 20:20 HPI: 79 y/o M hx of chf, ckd stage 4, cad s/p stents, colon cancer, afib, cva w/re sidual R-sided weakness, pituitary adenoma s/p resection, hypothyroidism, bullous pemphigoid, BPH, seizure disorder, DM, and recent d/c from this hospital today sent by from home for generalized weakness. Pt arrived home and immediately drove him back to the ED due to his weakness and inability to get out of the car. Pt's baseline is an electric wheelchair. Normally can go to bathroom on own, get from wheelchair to bed, and get out of car, but today couldn't get out of car so sent back. Pt states he has been weak for 4 days, but actually feels stronger today than when he was in the hospital. Denies any changes or worsening of sx since discharge. Pt states his rash has been get ting better in the hospital. Pt denies any other sx. PCP - Falguni ROS: Constitutional: Positive for generalized weakness, fatigue. Negative for chills, fever, diaphoresis. HENT: Negative for sore throat, rhinorrhea, congestion. Eyes: Negative for visual disturbance. Respiratory: Negative for shortness of breath, cough, and wheezing. Cardiovascular: Negative for chest pain, palpitations, and leg swelling. Gastrointestinal: Negative for abdominal pain, blood in stool, constipation, diarrhea, nausea, and vomiting. Genitourinary: Negative for dysuria, flank pain, and hematuria. Musculoskeletal: Negative for myalgias, back pain, and neck pain. Skin: Positive for bullous pemphigoid rash. Neurological: Negative for light-headedness, dizziness, vertigo, syncope, weakness, numbness and headaches. Psychiatric/Behavioral: Negative for behavioral problems and confusion. PE: Gen: Alert, NAD, comfortable-appearing, obese HEENT: PERRL, EOMI, MMM, NCAT. No conjunctival pallor. Sclera are non-icteric. CV: Regular rate and rhythm. No murmurs, rubs, or gallops. PULM: No resp distress. CTAB, no wheezes, rales, or rhonchi. ABD: soft, protuberant, NT/ND, no rebound tenderness or guarding, no CVA tenderness. BACK: No TTP of c/t/l-spine. No step-offs or deformities. MSK: No bony deformities. 2+ pulses in all extremities. NEURO: AAOx3. PERRL. CN 2-12 intact. 3/5 strength RLE (baseline per pt 2/2 prior CVA) and 4/5 strength LLE. 4/5 strength UEs. Sensation to light touch intact in all extremities. EXTREMITIES: No cyanosis. No clubbing. No edema. No calf tenderness. PSYCH: Normal mood and thought pattern. SKIN: Warm and dry. Normal capillary refill. ~11% BSA open ulcerated lesions (bullous pemphigoid) mostly on extremities and chest and abdomen, some with minimal bleeding, no erythema or purulence or warmth. Open deep ulceration to R heel. No jaundice. MDM: 79 y/o M hx of chf, ckd stage 4, cad s/p stents, colon cancer, afib, cva w/residual R-sided weakness, pituitary adenoma s/p resection, hypothyroidism, bullous pemphigoid, BPH, seizure disorder, DM, and recent d/c from this hospital today sent by from home for generalized weakness. Hemodynamically stable, afebrile, weakness as above. Ddx: deconditioning, infection, metabolic derangement, anemia, ACS/OR, arrhythmia -Wound care: pt refuses placement of anything on his wounds because he wants them to be open to the air to dry out. Pt informed of risks including infection and pt still refuses. -EKG: Afib, RAD, low voltage QRS, vent rate 69bpm, QTc 443ms, when compared w/11/13/19, serial changes of septal infarct preent -CXR: cardiomegaly and probable mild congestion -COVID -CBC,CMP: reviewed -Dispo: admit for PT eval, inability to ambulate, and placement/assistance Discharge - Discharge Information Problems reviewed: Yes Clinical Impression/Diagnosis: Unable to ambulate, Generalized weakness, Blisters of multiple sites, Bullous pemphigoid, Caregiver unable to cope Condition: Stable - Admission Yes - Follow up/Referral - Patient Discharge Instructions - Post Discharge Activity
[2019-12-03 20:56] LABS: BASO % 0.2 % (0-2.0); EOS % 0.5 % (0-4.5); HEMATOCRIT 24.4 % (35.4-49); HEMOGLOBIN 7.7 GM/dL (11.7-16.9); LYMPH % 8.5 % (8-40); MCH 29.4 pg (25.7-33.7); MCHC 31.5 g/dl (32.0-35.9); MEAN CELL VOLUME 93.5 fl (80-96); MEAN PLT VOLUME 8.8 fl (7.5-11.1); MONO % 11.1 % (3.8-10.2); NEUT % 79.7 % (42.8-82.8); PLATELET COUNT 95 K/MM3 (134-434); RBC 2.61 M/mm3 (4.00-5.60); RDW 18.1 % (11.9-15.9); WHITE BLOOD COUNT 6.8 K/mm3 (4.0-10.0)
[2019-12-03 21:24] LABS: ALBUMIN 2.7 g/dl (3.4-5.0); BILIRUBIN,TOTAL 0.5 mg/dL (0.2-1); BLOOD UREA NITROGEN 85.2 mg/dL (7-18); CALCIUM 8.2 mg/dL (8.5-10.1); CREATININE 2.1 mg/dL (0.55-1.3); POTASSIUM 4.8 mmol/L (3.5-5.1); TOT PROT 5.9 g/dl (6.4-8.2)
--- NOTE | 2019-12-03 22:15 | PN ---
Teaching Attending Note Name of Resident: Rachell Farfan ATTENDING PHYSICIAN STATEMENT I saw and evaluated the patient. I reviewed the resident's note and discussed the case with the resident. I agree with the resident's findings and plan as documented. SUBJECTIVE: Patient is an 79 year old man with a PMH of HFpEF, CKD, CAD (s/p stents), Colon cancer, Afib, CVA with residual right-sided weakness, Pituitary adenoma (s/p resection), Hypothyroidism, Bullous pemphigoid, BPH, Seizure disorder and NIDDM sent by from home for generalized weakness. Patient was just discharged from the hospital today after being hospitalized for almost three weeks for multiple comorbid illnesses including bullous pemphigoid, LETITIA, right foot wound and anemia requiring PRBC transfusion. Patient arrived home and his immediately drove him back to the ER due to his weakness and inability to get out of the car. Patient at baseline uses an electric wheelchair. Normally can go to bathroom on his own, get from wheelchair to bed, and get out of car, but today couldn't get out of the car. Patient reports he has been weak for 4 days, but actually feels stronger today than when he was in the hospital. Denies any changes or worsening of symptoms since discharge. States that his rash has been getting better. Patient denies fever, chills, nausea, vomiting, SOB, chest pain, abdominal pain or diarrhea. Denies alcohol, tobacco or illicit drug use. No recent travels. 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 Family history is unremarkable. OBJECTIVE: Alert and weak Vital Signs Period Temp Pulse Resp BP Sys/Hair Pulse Ox Last 24 Hr 98.2 F 66-90 18-19 120-121/72-94 90-98 HEENT: No Jaundice, eye redness or discharge, PERRLA, EOMI. Normocephalic, atraumatic. External ears are normal and hearing is grossly intact. No nasal discharge. Neck: Supple, nontender. No palpable adenopathy or thyromegaly. No JVD Chest: Good effort. Clear to auscultation and percussion. Heart: Regular. No S3, rub or murmur Abdomen: Not distended, soft, nontender and no HSM. No rebound or guarding. Normal bowel sounds. Ext: Peripheral pulses intact. No leg edema. Right heel wound with no discharge. Skin: Warm and dry. No petechiae or ecchymosis. Multiple scabs, oozing blisters and excoriations on the trunk and limbs. Neuro: Alert. Oriented x3. Global weakness. CN 2-12 grossly intact. Sensation grossly intact in all four extremities; right leg paresis. Psych: Sad mood and withdrawn. Appropriate affect. Good insight. Home Medications Medication Instructions Recorded Levothyroxine [Synthroid -] 25 mcg PO DAILY 07/15/19 Tamsulosin HCl [Flomax] 0.4 mg PO DAILY 07/15/19 levETIRAcetam [Keppra -] 500 mg PO BID 07/15/19 Cholecalciferol (Vitamin D3) 800 unit PO DAILY tab 08/26/19 [Vitamin D -] Apixaban [Eliquis -] 2.5 mg PO BID #60 tablet 08/31/19 Carvedilol [Coreg -] 25 mg PO BID 11/06/19 Lisinopril 20 mg PO DAILY 11/06/19 Niacin [Niaspan] 750 mg PO DAILY 11/06/19 Omeprazole 20 mg PO DAILY 11/06/19 Rosuvastatin [Crestor -] 10 mg PO DAILY 11/06/19 Sulfamethoxazole/Trimethoprim 1 tab PO DAILY #30 tablet 11/12/19 [Bactrim Ds -] Gauze Bandage [Gauze Pad] 4 each TP DAILY #4 box 11/27/19 Gauze Bandage [Kerlix] 5 each TP DAILY #100 bandage 11/27/19 Abnormal Lab Results 12/03/19 12/03/19 20:30 20:30 RBC 2.61 L Hgb 7.7 L Hct 24.4 L MCHC 31.5 L RDW 18.1 H Plt Count 95 L D Monocytes % 11.1 H Chloride 111 H BUN 85.2 H Creatinine 2.1 H Random Glucose 162 H Calcium 8.2 L Total Protein 5.9 L Albumin 2.7 L Current Medications Generic Name Dose Route Start Last Admin Trade Name Freq PRN Reason Stop Dose Admin Apixaban 2.5 mg 12/04/19 10:00 Eliquis - PO BID MICHAEL Apixaban 2.5 mg 12/04/19 00:02 Eliquis - PO 12/04/19 00:03 ONCE ONE Carvedilol 25 mg 12/04/19 10:00 Coreg - PO BID MICHAEL Iron Sucrose 200 mg/ Sodium 100 mls @ 100 mls/hr 12/03/19 23:50 Chloride IVPB 12/04/19 00:49 ONCE ONE Levetiracetam 500 mg 12/04/19 10:00 Keppra - PO BID MICHAEL Levetiracetam 500 mg 12/04/19 00:02 Keppra - PO 12/04/19 00:03 ONCE ONE Levothyroxine Sodium 25 mcg 12/04/19 10:00 Synthroid - PO DAILY MICHAEL Non-Formulary Medication 20 mg 12/04/19 10:00 Omeprazole PO DAILY [facility] ASSESSMENT AND PLAN: 1. Failure to thrive - Likely due to multiple comorbid issues including anemia. Hematocrit on discharge was 24.8%. Anemia likely partly due to CKD. Will do basic anemia work up including serial stool guaiacs, reticulocyte count, vitamin b12/folate and iron studies. Would treat with IV Venofer and then Procrit therapy once iron replete. Check TSH, monitor and replete magnesium, check phosphate, and provide intense nutritional support. Consult PT, Grapple Skidder Operator and Wound care service. Tested negative for COVID-19 on 11/14/2019. CXR shows cardiomegaly but not significantly different from his CXR from 11/23/2019. Has ch ronic unexplained thrombocytopenia. Viral testing for COVID-19 ordered and patient placed on airborne, droplet and contact isolation. EKG shows Afib at 69/minute, RAD and QTc [address]-T wave changes. Will continue comprehensive care for all of patients comorbid conditions including Clobetasol propionate cream for Bullous pemphigoid. 2. Hypoalbuminemia - Possibly due to combined effects of malnutrition and inflammation associated with comorbid conditions. Will ensure adequate dietary protein intake and also consult recreation program coordinator. Urinalysis pending. 3. DM For now, we will hold the home diabetes drugs and implement sliding scale insulin regimen. Provide comprehensive diabetes care with patient teaching and counseling about the importance of adherence to prescribed diabetes regimen, euglycemia, eye care and foot care. 4. CKD - Will consult nephrology and avoid nephrotoxic agents such as NSAIDS, aminoglycosides, contrast dyes and certain Alternative medicine products. 5. Hypertension Will restart suitable outpatient antihypertensive drugs when clinically appropriate. Subsequently, will revise regimen to ensure [id number] excellent BP control. Patient counseled on the injurious effects of uncontrolled hypertension. Nonpharmacologic measures to control hypertension like weight loss, salt restriction and exercise stressed. Importance of adherence to treatment regimen and attainment of normotension emphasized. 6. DVT prophylaxis - Lovenox 40 mg SQ q 24 hours. 7. Advance directives - Full code
--- NOTE | 2019-12-03 23:21 | HP ---
CHIEF COMPLAINT: weakness PCP: HISTORY OF PRESENT ILLNESS: Pt is an 79 y/o male with chronic anemia, diastolic CHF (EF 50-55% 12/05), a-fib (on Eliquis), CAD s/p PCI, HTN, HLD, CVA (right side residual weakness), CKD, hypothyroidism, bullous pemphigoid (started 03/05), and right foot ulcer who presents immediately after discharge today with weakness/deconditioning. Pt was unable to get out of the car with assistance from his . She reports he gets deconditioned every time he is discharged from the hospital, but this is the worst she has seen. He recently was discharged from a nursing facility for rehab before being admitted for 3 weeks at [facility]. He was previously wheelchair-bound but able to do some ADLs independently. He denies loss of appetite, fever, chills, chest pain, or shortness of breath. He reports the bullous pemphigoid is uncomfortable. ER course was notable for: (1) Hb 7.7, Plt 95, Cr 2.1 (2) CXR cardiomegaly, vascular congestion, no significant change from EKG 1 week ago (3) EKG HR 69, a-fib, right axis deviation, QTc 443 PAST MEDICAL HISTORY: chronic anemia, diastolic CHF (EF 50-55% 12/05), a-fib (on Eliquis), CAD s/p PCI, HTN, HLD, CVA (right side residual weakness), CKD, hypothyroidism, bullous pemphigoid (started 03/05), and right foot ulcer PAST SURGICAL HISTORY: appendectomy Social History: Smoking: denies Alcohol: denies Drugs: denies lives at home with Allergies No Known Allergies Allergy (Verified 11/13/19 11:04) HOME MEDICATIONS: Home Medications Medication Instructions Recorded Levothyroxine [Synthroid -] 25 mcg PO DAILY 07/15/19 Tamsulosin HCl [Flomax] 0.4 mg PO DAILY 07/15/19 levETIRAcetam [Keppra -] 500 mg PO BID 07/15/19 Cholecalciferol (Vitamin D3) 800 unit PO DAILY tab 08/26/19 [Vitamin D -] Apixaban [Eliquis -] 2.5 mg PO BID #60 tablet 08/31/19 Carvedilol [Coreg -] 25 mg PO BID 11/06/19 Lisinopril 20 mg PO DAILY 11/06/19 Niacin [Niaspan] 750 mg PO DAILY 11/06/19 Omeprazole 20 mg PO DAILY 11/06/19 Rosuvastatin [Crestor -] 10 mg PO DAILY 11/06/19 Sulfamethoxazole/Trimethoprim 1 tab PO DAILY #30 tablet 11/12/19 [Bactrim Ds -] Gauze Bandage [Gauze Pad] 4 each TP DAILY #4 box 11/27/19 Gauze Bandage [Kerlix] 5 each TP DAILY #100 bandage 11/27/19 REVIEW OF SYSTEMS see HPI PHYSICAL EXAMINATION Vital Signs - 24 hr 12/03/19 12/03/19 12/03/19 19:48 20:20 21:50 Temperature 98.2 F Pulse Rate 90 Pulse Rate [ 66 Left Radial] Respiratory 19 18 Rate Blood Pressure 121/72 Blood Pressure 120/94 [Right Arm] O2 Sat by Pulse 90 L 98 98 Oximetry (%) GENERAL: Awake, alert, and fully oriented, appears slightly dyspneic. HEAD: Normal with no signs of trauma. EYES: Pupils equal, round and reactive to light, extraocular movements intact, conjunctiva clear. EARS, NOSE, THROAT: Ears normal, nares patent, moist mucous membranes. NECK: Normal range of motion. LUNGS: Clear to auscultation bilaterally. No wheezes, and no crackles. HEART: Regular rate irregular rhythm, normal S1 and S2 without murmur. ABDOMEN: Soft, nontender, not distended, normoactive bowel sounds. MUSCULOSKELETAL: Limited movement of extremities. RLE significantly weaker than LLE. b/l UE 4/5 strength. UPPER EXTREMITIES: Warm, well-perfused. No peripheral edema. LOWER EXTREMITIES: Feet cool, right heel ulcer, no peripheral edema. NEUROLOGICAL: Cranial nerves II-XII intact. Normal speech. Unable to ambulate. PSYCHIATRIC: Cooperative. Good eye contact. Appropriate mood and affect. SKIN: Warm, dry, normal turgor, bullous pemphigoid present on all 4 extremities and chest and abdomen, healed erosions on back with hyperpigmentation. Laboratory Results - last 24 hr 12/03/19 12/03/19 20:30 20:30 WBC 6.8 RBC 2.61 L Hgb 7.7 L Hct 24.4 L MCV 93.5 MCH 29.4 MCHC 31.5 L RDW 18.1 H Plt Count 95 L D MPV 8.8 D Absolute Neuts (auto) 5.5 Neutrophils % 79.7 Lymphocytes % 8.5 Monocytes % 11.1 H Eosinophils % 0.5 Basophils % 0.2 Nucleated RBC % 0 Sodium 143 Potassium 4.8 Chloride 111 H Carbon Dioxide 23 Anion Gap 9 BUN 85.2 H Creatinine 2.1 H Est GFR (CKD-EPI)AfAm 33.21 Est GFR (CKD-EPI)NonAf 28.66 Random Glucose 162 H Calcium 8.2 L Total Bilirubin 0.5 AST 18 ALT 28 Alkaline Phosphatase 93 Total Protein 5.9 L Albumin 2.7 L ASSESSMENT/PLAN: Pt is an 79 y/o male with chronic anemia, diastolic CHF (EF 50-55% 12/05), a-fib (on Eliquis), CAD s/p PCI, HTN, HLD, CVA (right side residual weakness), seizure disorder, CKD, hypothyroidism, bullous pemphigoid (started 03/05), and right foot ulcer who presents immediately after discharge today with weakness/deconditioning. #deconditioning -pt discharged today from lengthy hospital visit -spoke to , Mandy, who is amenable to rehab placement after Nate deferred decision to her -social work consult -PT consult -coke still cleaner consult #bullous pemphigoid -overall improvement with current med regimen started by Dr. Hilliard last admission -continue prednisone taper (60mg now decrease by 10mg q2 weeks) -continue topical betamethasone -consider topical clobetasol at discharge for tx (not in hospital formulary) which has mortality benefit over betamethasone at 1 year #anemia of chronic disease -hx of CKD -Hb 7.7 today, and was transfused last admission -Venofer -consider procrit vs transfusion if Hb is <8 -iron panel #seizure disorder -keppra bid #right heel ulcer -santyl #hypothyroidism -Synthroid #a-fib -Eliquis -carvedilol DVT PPx continue home Eliquis FEN PO fluids monitor Cr, Hb sodium controlled diet dispo med/surg placement reconcile med list Visit type - Emergency Visit Emergency Visit: Yes ED Registration Date: 12/03/19 Care time: The patient presented to the Emergency Department on the above date and was hospitalized for further evaluation of their emergent condition. - New Patient This patient is new to me today: Yes Date on this admission: 12/03/19 - Critical Care Critical Care patient: No ATTENDING PHYSICIAN STATEMENT I saw and evaluated the patient. I reviewed the resident's note and discussed the case with the resident. I agree with the resident's findings and plan as documented. SUBJECTIVE: OBJECTIVE: ASSESSMENT AND PLAN:
[2019-12-04] MEDS ORDERED: APIXABAN 2.5 MG TABLET PO ONE (00:30)
[2019-12-04] MEDS ORDERED: levETIRAcetam 500 MG TABLET (FP) PO ONE (00:30)
[2019-12-04] MEDS ORDERED: IRON SUCROSE INJECTION 200 MG in SODIUM CHLORIDE 90 ML IVPB ONE (01:00)
[2019-12-04] MEDS: LEVOTHYROXINE NA 25 MCG TABLET (FP) PO SCH (06:39)
[2019-12-04] MEDS: PANTOPRAZOLE 20 MG TABLET PO SCH (06:39)
[2019-12-04 07:15] LABS: BASO % 0.1 % (0-2.0); EOS % 0.5 % (0-4.5); HEMATOCRIT 25.3 % (35.4-49); HEMOGLOBIN 7.7 GM/dL (11.7-16.9); LYMPH % 11.4 % (8-40); MCH 28.7 pg (25.7-33.7); MCHC 30.4 g/dl (32.0-35.9); MEAN CELL VOLUME 94.3 fl (80-96); MEAN PLT VOLUME 7.6 fl (7.5-11.1); MONO % 11.7 % (3.8-10.2); NEUT % 76.3 % (42.8-82.8); PLATELET COUNT 59 K/MM3 (134-434); RBC 2.68 M/mm3 (4.00-5.60); RDW 18.2 % (11.9-15.9); WHITE BLOOD COUNT 5.7 K/mm3 (4.0-10.0)
--- NOTE | 2019-12-04 07:59 | PN ---
Progress Note, Physician - Current Medication List Current Medications: Active Medications Apixaban (Eliquis -) 2.5 mg PO BID [facility] Carvedilol (Coreg -) 25 mg PO BID MICHAEL Levetiracetam (Keppra -) 500 mg PO BID [facility] Levothyroxine Sodium (Synthroid -) 25 mcg PO ACBK [facility] Last Admin: 12/04/19 06:39 Dose: Not Given Documented by: Pantoprazole Sodium (Protonix -) 20 mg PO ACBK [facility] Last Admin: 12/04/19 06:39 Dose: 20 mg Documented by: - Objective Vital Signs: Vital Signs Temperature 97.8 F 12/04/19 06:45 Pulse Rate 69 12/04/19 06:45 Respiratory Rate 18 12/04/19 06:45 Blood Pressure 137/62 12/04/19 06:45 O2 Sat by Pulse Oximetry (%) 95 12/04/19 00:45 Cardiovascular: Yes: S1, S2 Respiratory: Yes: Regular, CTA Bilaterally Gastrointestinal: Yes: Normal Bowel Sounds, Soft Integumentary: Yes: Rash, Other (bollous open no drainage minimal bleeding) Wound/Incision: No: Draining Labs: CBC, BMP 12/04/19 06:55 Problem List - Problems (1) Bullous pemphigoid Assessment/Plan: continue with current meds tapering steroids Code(s): L12.0 - BULLOUS PEMPHIGOID (2) Caregiver unable to cope Assessment/Plan: Patient and refused placement now agreeable Code(s): Z74.8 - OTHER PROBLEMS RELATED TO CARE PROVIDER DEPENDENCY (3) Afib Assessment/Plan: on eliquis monitor counts Code(s): I48.91 - UNSPECIFIED ATRIAL FIBRILLATION (4) Anemia Assessment/Plan: hgb 7.7 Code(s): D64.9 - ANEMIA, UNSPECIFIED Qualifiers: Iron deficiency anemia type: chronic blood loss (5) CHF (congestive heart failure) Code(s): I50.9 - HEART FAILURE, UNSPECIFIED (6) Diabetes mellitus Code(s): E11.9 - TYPE 2 DIABETES MELLITUS WITHOUT COMPLICATIONS (7) Hypothyroidism Code(s): E03.9 - HYPOTHYROIDISM, UNSPECIFIED
[2019-12-04 08:30] LABS: ALBUMIN 2.6 g/dl (3.4-5.0); BILIRUBIN,TOTAL 0.5 mg/dL (0.2-1); BLOOD UREA NITROGEN 90.1 mg/dL (7-18); CALCIUM 8.1 mg/dL (8.5-10.1); CREATININE 2.1 mg/dL (0.55-1.3); MAGNESIUM 1.9 mg/dL (1.8-2.4); PHOSPHOROUS 3.7 mg/dL (2.5-4.9); POTASSIUM 4.5 mmol/L (3.5-5.1); TOT PROT 5.9 g/dl (6.4-8.2)
[2019-12-04] MEDS: levETIRAcetam 500 MG TABLET (FP) PO SCH ×2 (09:07→21:08)
[2019-12-04] MEDS: APIXABAN 2.5 MG TABLET PO SCH ×2 (09:07→21:08)
[2019-12-04] MEDS: CARVEDILOL 25 MG TABLET (FP) PO SCH ×2 (09:07→23:40)
--- NOTE | 2019-12-04 09:49 | EKG ---
Test Reason : Blood Pressure : / mmHG Vent. Rate : 069 BPM Atrial Rate : 075 BPM P-R Int : 000 ms QRS Dur : 082 ms QT Int : 414 ms P-R-T Axes : 000 129 032 degrees QTc Int : 443 ms POOR DATA QUALITY, INTERPRETATION MAY BE ADVERSELY AFFECTED ATRIAL FIBRILLATION RIGHT AXIS DEVIATION LOW VOLTAGE QRS SEPTAL INFARCT (CITED ON OR BEFORE 05-NOV-2017) ABNORMAL ECG WHEN COMPARED WITH ECG OF 13-NOV-2019 10:55, SERIAL CHANGES OF SEPTAL INFARCT PRESENT Confirmed by DIMAS MORALES MD ([id number]) on 12/04/2019 9:48:35 AM Referred By: Confirmed By:DIMAS MORALES MD
[2019-12-04] MEDS ORDERED: PATIENT'S OWN MEDICATION (NON-FORMULARY) (Omeprazole 20 MG) PO SCH (10:00)
[2019-12-05] MEDS: LEVOTHYROXINE NA 25 MCG TABLET (FP) PO SCH (06:19)
[2019-12-05] MEDS: PANTOPRAZOLE 20 MG TABLET PO SCH (06:19)
--- NOTE | 2019-12-05 08:57 | CONSULT ---
- Consultation REQUESTING PROVIDER: Jay Burciaga CONSULT REQUEST: We have been asked to surgically evaluate this patient for chronic right foot wound. PCP: Gina Truong HPI: Called to eval 79 y/o M w/ PMHx as noted below. Patient well know to Surgery Service from previous hospital visits. Followed by Dr Burciaga (Vascular/Wound Care) and Dr Somers (Podiatry) as out-patient. He is s/p RLE revascularization right popliteal and tibial arteries with stent and angioplasty 08/29/19. Pt has chronic right foot ulcer which was debrided in the [facility] by Dr Burciaga on 11/12/19 and has been undergoing HBO therapy. Overall the patient states he feels well and he denies any headache, LOC, shortness of breath, cough, chest pain, fevers, chills. PMHx: Chronic anemia, dCHF, Afib, Sz, CAD s/p PCI, HTN, HLD, CVA (right side residual weakness), CKD, hypothyroidism, bullous pemphigoid (started 03/05/19), chronic right foot ulcer. Colon CA PSHx: appendectomy, henria repair, Cardiac stent x1, Left elbow surgery, Brain tumor Home Meds Levothyroxine [Synthroid -] 25 mcg PO DAILY 07/15/19 Tamsulosin HCl [Flomax] 0.4 mg PO DAILY 07/15/19 levETIRAcetam [Keppra -] 500 mg PO BID 07/15/19 Cholecalciferol (Vitamin D3) [Vitamin D -] 800 unit PO DAILY tab 08/26/19 Apixaban [Eliquis -] 2.5 mg PO BID #60 tablet 08/31/19 Carvedilol [Coreg -] 25 mg PO BID 11/06/19 Lisinopril 20 mg PO DAILY 11/06/19 Niacin [Niaspan] 750 mg PO DAILY 11/06/19 Omeprazole 20 mg PO DAILY 11/06/19 Rosuvastatin [Crestor -] 10 mg PO DAILY 11/06/19 Sulfamethoxazole/Trimethoprim [Bactrim Ds -] 1 tab PO DAILY #30 tablet 11/12/19 Gauze Bandage [Gauze Pad] 4 each TP DAILY #4 box 11/27/19 Gauze Bandage [Kerlix] 5 each TP DAILY #100 bandage 11/27/19 Allergies: NKDA ROS 12 system review and considered negative except for what's contained in HPI. PE GEN: A&O. NAD HEAD: NC. AT. EYES: sclera anicteric, conjunctiva clear LUNGS: unlabored respirations on RA EXTREMITIES : Right Heel wound 1.5 x1.6 x 1.8, clean, no foul odor. Dopplerable DP & PT. Feet/toes warm and well perfused SKIN: bullae and blisters and excoriations of various healing staged over trunk and upper lower extremities. + Right chronic heel wound Last Vital Signs Temp Pulse Resp BP Pulse Ox 97.4 F L 74 18 104/58 L 96 12/05/19 05:32 12/05/19 05:32 12/05/19 05:32 12/05/19 05:32 12/04/19 23:00 CBC, BMP 12/04/19 06:55 12/04/19 06:55 Blood Type Blood Type B POSITIVE 12/04/19 06:55 Problem List - Problems (1) Diabetic ulcer of right foot Assessment/Plan: Right foot ulcer is clean. No evidence of infection. He has dopplerable DP and PT. Steppanian eval Bacitracin and dry dressing for superficial wounds to UE/LE/trunk No planned surgical intervention Cont medical management. No planned surgical intervention. Above plan discussed with my attending and agrees. On behalf of Dr. Collazo, thank you for the opportunity to participate in your patient's care. Code(s): E11.621 - TYPE 2 DIABETES MELLITUS WITH FOOT ULCER; L97.519 - NON-PRS CHRONIC ULCER OTH PRT RIGHT FOOT W UNSP SEVERITY (2) Bullous pemphigoid Code(s): L12.0 - BULLOUS PEMPHIGOID (3) Blisters of multiple sites Code(s): R23.8 - OTHER SKIN CHANGES (4) CAD (coronary artery disease) Code(s): I25.10 - ATHSCL HEART DISEASE OF [place] CORONARY ARTERY W/O ANG PCTRS (5) CKD (chronic kidney disease) Code(s): N18.9 - CHRONIC KIDNEY DISEASE, UNSPECIFIED (6) Diabetes mellitus Code(s): E11.9 - TYPE 2 DIABETES MELLITUS WITHOUT COMPLICATIONS (7) Diastolic CHF Code(s): I50.30 - UNSPECIFIED DIASTOLIC (CONGESTIVE) HEART FAILURE (8) HTN (hypertension) Code(s): I10 - ESSENTIAL (PRIMARY) HYPERTENSION (9) Seizure Code(s): R56.9 - UNSPECIFIED CONVULSIONS Visit type - Case Type Case Type: ED Admission - Emergency Emergency Visit: Yes ED Registration Date: 12/03/19 Care time: The patient presented to the Emergency Department on the above date and was hospitalized for further evaluation of their emergent condition. - New patient This patient is new to me today: Yes Date on this admission: 12/05/19
--- NOTE | 2019-12-05 09:08 | PN ---
Progress Note, Physician - Current Medication List Current Medications: Active Medications Apixaban (Eliquis -) 2.5 mg PO BID [facility] Last Admin: 12/04/19 21:08 Dose: 2.5 mg Documented by: Carvedilol (Coreg -) 25 mg PO BID [facility] Last Admin: 12/04/19 23:40 Dose: 25 mg Documented by: Levetiracetam (Keppra -) 500 mg PO BID [facility] Last Admin: 12/04/19 21:08 Dose: 500 mg Documented by: Levothyroxine Sodium (Synthroid -) 25 mcg PO [facility] Last Admin: 12/05/19 06:19 Dose: 25 mcg Documented by: Pantoprazole Sodium (Protonix -) 20 mg PO [facility] Last Admin: 12/05/19 06:19 Dose: 20 mg Documented by: - Objective Vital Signs: Vital Signs Temperature 97.4 F L 12/05/19 05:32 Pulse Rate 74 12/05/19 05:32 Respiratory Rate 18 12/05/19 05:32 Blood Pressure 104/58 L 12/05/19 05:32 O2 Sat by Pulse Oximetry (%) 96 12/04/19 23:00 Cardiovascular: Yes: S1, S2 Respiratory: Yes: On Nasal O2, Rhonchi Gastrointestinal: Yes: Normal Bowel Sounds, Soft Labs: CBC, BMP 12/04/19 06:55 12/04/19 06:55 Problem List - Problems (1) Bullous pemphigoid Assessment/Plan: continue with current meds tapering steroids Code(s): L12.0 - BULLOUS PEMPHIGOID (2) Caregiver unable to cope Assessment/Plan: Patient and refused placement now agreeable Code(s): Z74.8 - OTHER PROBLEMS RELATED TO CARE PROVIDER DEPENDENCY (3) Afib Assessment/Plan: on eliquis monitor counts Code(s): I48.91 - UNSPECIFIED ATRIAL FIBRILLATION (4) Anemia Assessment/Plan: hgb 7.7 Code(s): D64.9 - ANEMIA, UNSPECIFIED Qualifiers: Iron deficiency anemia type: chronic blood loss (5) CHF (congestive heart failure) Assessment/Plan: -cxr Code(s): I50.9 - HEART FAILURE, UNSPECIFIED (6) Diabetes mellitus Code(s): E11.9 - TYPE 2 DIABETES MELLITUS WITHOUT COMPLICATIONS (7) Hypothyroidism Code(s): E03.9 - HYPOTHYROIDISM, UNSPECIFIED (8) Altered mental state Assessment/Plan: --ABG CXR CT HEAD FOLLOW LABS Code(s): R41.82 - ALTERED MENTAL STATUS, UNSPECIFIED
[2019-12-05 10:20] LABS: BASO % 0.2 % (0-2.0); EOS % 0.3 % (0-4.5); HEMATOCRIT 25.2 % (35.4-49); HEMOGLOBIN 7.6 GM/dL (11.7-16.9); LYMPH % 7.9 % (8-40); MCH 28.8 pg (25.7-33.7); MEAN CELL VOLUME 95.7 fl (80-96); MEAN PLT VOLUME 8.7 fl (7.5-11.1); MONO % 10.3 % (3.8-10.2); NEUT % 81.3 % (42.8-82.8); PLATELET COUNT 63 K/MM3 (134-434); RBC 2.64 M/mm3 (4.00-5.60); RDW 18.6 % (11.9-15.9); WHITE BLOOD COUNT 6.1 K/mm3 (4.0-10.0)
[2019-12-05] MEDS: CARVEDILOL 25 MG TABLET (FP) PO SCH ×2 (10:36→21:34)
[2019-12-05] MEDS: APIXABAN 2.5 MG TABLET PO SCH ×2 (10:36→21:34)
[2019-12-05] MEDS: levETIRAcetam 500 MG TABLET (FP) PO SCH ×2 (10:36→21:34)
[2019-12-05 11:00] LABS: ALBUMIN 2.6 g/dl (3.4-5.0); BILIRUBIN,TOTAL 0.6 mg/dL (0.2-1); BLOOD UREA NITROGEN 91.1 mg/dL (7-18); CALCIUM 7.8 mg/dL (8.5-10.1); CREATININE 2.2 mg/dL (0.55-1.3); POTASSIUM 4.8 mmol/L (3.5-5.1); TOT PROT 5.8 g/dl (6.4-8.2)
[2019-12-05 11:14] LABS: ARTERIAL BLD GAS O2 SATURATION 98.8 mmHg (95-98); ARTERIAL BLOOD GAS PO2 159.2 mmHg (80-100)
[2019-12-05 11:15] LABS: ARTERIAL BLOOD GAS BASE EXCESS -6.7 mmol/L (-2-2)
[2019-12-05 11:19] LABS: ALLENS TEST POSITIVE
--- NOTE | 2019-12-05 15:38 | PN ---
Progress Note (short form) - Note Progress Note: ID CONSULT DICTATED OBSERVE OFF ANTIBIOTICS NO OBJECTION TO SNF TRANSFER
--- NOTE | 2019-12-05 16:49 | CONSULT ---
Consult Consult Specialty:: Nephrology Reason for Consultation:: ckd - History of Present Illness Chief Complaint: weakness History of Present Illness: Pt is an 79 year old male with pmhx of chf, ckd, anemia, a-fib, cad, cva who presents with weakness and deconditioning. He was discharged yesterday. He has CKD. He is awake and alert. He does not feel much different than yesterday. - History Source History Provided By: Patient - Past Medical History TELE TECH: Yes: CVA, Seizure, Other (Pituitary adenoma resection) Cardio/Vascular: Yes: AFIB, CAD, CHF (echo EF 55% large RV with TR), HTN, Hyperlipdemia, Murmur (holosystolic), Pulmonary Hypertension (severe), Other (perip[heral vascular disease) Gastrointestinal: Yes: Cancer (Laparoscopic right colon cancer resection), GI Bleed (01/14/18 ulcer in 3rd portion duodenum was cauterized), Other (Colon cancer) Hepatobiliary: Yes: Cholelithiasis, Other (fatty liver) Renal/: Yes: Renal Inusuff (see HPI), BPH Endocrine: Yes: Diabetes Mellitus, Hypothyroidism, Other (pituitary adenoma resection) Dermatology: Yes: Other (? bullous pemphigoid, taking cellcept and prednisone) - Past Surgical History Past Surgical History: Yes: Colectomy (partial given h/o colon cancer, suspect laparoscopic right colon resection), Colonoscopy, Stent (s/p one vessel PCI), Upper Endoscopy - Alcohol/Substance Use Hx Alcohol Use: No History of Substance Use: reports: None - Smoking History Smoking history: Former smoker Have you smoked in the past 12 months: No Aproximately how many cigarettes per day: 4 If you are a former smoker, when did you quit?: 32 - Social History Usual Living Arrangement: With Spouse (in elevator apartment) 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) 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 History of Recent Travel: No Home Medications - Allergies Allergies/Adverse Reactions: Allergies Allergy/AdvReac Type Severity Reaction Status Date / Time No Known Allergies Allergy Verified 11/13/19 11:04 - Home Medications Home Medications: Ambulatory Orders Levothyroxine [Synthroid -] 25 mcg PO DAILY 07/15/19 Tamsulosin HCl [Flomax] 0.4 mg PO DAILY 07/15/19 levETIRAcetam [Keppra -] 500 mg PO BID 07/15/19 Cholecalciferol (Vitamin D3) [Vitamin D -] 800 unit PO DAILY tab 08/26/19 Apixaban [Eliquis -] 2.5 mg PO BID #60 tablet 08/31/19 Carvedilol [Coreg -] 25 mg PO BID 11/06/19 Lisinopril 20 mg PO DAILY 11/06/19 Niacin [Niaspan] 750 mg PO DAILY 11/06/19 Omeprazole 20 mg PO DAILY 11/06/19 Rosuvastatin [Crestor -] 10 mg PO DAILY 11/06/19 Sulfamethoxazole/Trimethoprim [Bactrim Ds -] 1 tab PO DAILY #30 tablet 11/12/19 Gauze Bandage [Gauze Pad] 4 each TP DAILY #4 box 11/27/19 Gauze Bandage [Kerlix] 5 each TP DAILY #100 bandage 11/27/19 Family Medical History Family History: Denies Review of Systems Unable to obtain ROS, reason: see hpi Physical Exam Vital Signs: Vital Signs Temperature 97.8 F 12/05/19 14:00 Pulse Rate 69 12/05/19 14:00 Respiratory Rate 18 12/05/19 14:00 Blood Pressure 92/56 L 12/05/19 14:00 O2 Sat by Pulse Oximetry (%) 97 12/05/19 11:21 Constitutional: Yes: Calm Eyes: Yes: Conjunctiva Clear HENT: Yes: Atraumatic Cardiovascular: Yes: S1, S2 Respiratory: Yes: CTA Bilaterally Gastrointestinal: Yes: Soft Renal/: Yes: WNL Musculoskeletal: Yes: WNL Edema: Yes Edema: LLE: 1+, RLE: 1+ Neurological: Yes: Oriented Psychiatric: Yes: Oriented Labs: CBC, BMP 12/05/19 09:40 12/05/19 09:40 Assessment/Plan Current Medications Generic Name Dose Route Start Last Admin Trade Name Freq PRN Reason Stop Dose Admin Apixaban 2.5 mg 12/04/19 10:00 12/05/19 10:36 Eliquis - PO 2.5 mg BID MICHAEL Administration Carvedilol 25 mg 12/04/19 10:00 12/05/19 10:36 Coreg - PO 25 mg BID MICHAEL Administration Levetiracetam 500 mg 12/04/19 10:00 12/05/19 10:36 Keppra - PO 500 mg BID MICHAEL Administration Levothyroxine Sodium 25 mcg 12/04/19 07:00 12/05/19 06:19 Synthroid - PO 25 mcg ACBK MICHAEL Administration Pantoprazole Sodium 20 mg 12/04/19 07:00 12/05/19 06:19 Protonix - PO 20 mg ACBK MICHAEL Administration Impression 1. CKD 2. CHF 3. BPH 4. a. fib 5. CAD 6. epilepsy 7. proteinuria 8. anemia 9. foot ulcer 10. abd wall cellulitis 11. bullous pemphigoid 12. LETITIA 13. hyperkalemia Plan - restart lasix - restart cellcept - monitor bp - cont pt/rehab
[2019-12-05] MEDS: FUROSEMIDE 20 MG TABLET (FP) PO SCH (17:42)
[2019-12-05] MEDS ORDERED: PT OWN MED DRAWER 7, Y5N ONE (20:48)
[2019-12-05] MEDS: MYCOPHENOLATE MOFETIL 500 MG TABLET PO SCH (21:34)
--- NOTE | 2019-12-06 00:03 | CONS ---
DATE OF CONSULTATION: DATE OF DICTATION: 12/05/2019 INFECTIOUS DISEASE CONSULTATION HISTORY OF PRESENT ILLNESS: The patient is an 79-year-old male who is evaluated for possible sepsis. History is obtained from the chart, as he cannot give a reliable history. He was recently hospitalized at [facility] from November 12 through December 02, at which time he was treated for extensive bullous pemphigoid, deconditioning and an infected foot wound. He was evaluated by podiatry. An MRI was performed and was negative for acute osteomyelitis. The patient clinically improved on IV antibiotic therapy. He was scheduled to be discharged home to follow up in the wound care center. The patient was discharged from the hospital on December 03, 2019. According to the notes, he was taken home by car. When he arrived at home, he was profoundly weak and was unable to exit the car. His insisted that he be brought back to the hospital for admission and placement in a penitentiary facility. At the present time, he is awake and alert. He offers no focal complaint. He denies any chest pain, shortness of breath, cough, sputum production. No vomiting or diarrhea. His skin has been improving on prednisone. He denies any skin infections, no fever or chills. PAST MEDICAL HISTORY: Positive for diabetes mellitus, bullous pemphigoid, history of cellulitis of the right lower extremity, hypertension, congestive heart failure, hyperlipidemia, coronary artery disease, chronic kidney disease, colon cancer, atrial fibrillation, pituitary adenoma, BPH, seizure disorder, stroke. PAST SURGICAL HISTORY: Status post coronary artery stent, appendectomy, hernia repair. ALLERGIES: No known allergies. MEDICATION: At the present time include: 1. Eliquis. 2. Coreg. 3. Keppra. 4. Protonix. 5. Synthroid. SOCIAL HISTORY: Resides at home and in the community. Former smoker. Nondrinker. SYSTEMS REVIEW: Neurologic: Positive for stroke. Cardiac: Negative for chest pain or palpitations. Respiratory: Negative for cough or sputum production. Gastrointestinal: Negative vomiting or diarrhea. Genitourinary: Negative for urinary tract infection. LABORATORY DATA: White count 6.1, hematocrit 25.2, platelets 63,000, creatinine 2.2. Urinalysis pending. COVID-19 negative. Chest x-ray: cardiomegaly, pulmonary vascular congestion. PHYSICAL EXAMINATION: General: On exam, he is chronically ill-appearing. Vital signs: Temperature 97.8, blood pressure 118/75, pulse 84 regular, respirations 18 per minute. HEENT: Sclerae anicteric. Cardiovascular: Heart sounds S1, S2. Lungs: Clear. Abdomen: Soft, nontender. Extremities: Positive for edema. Plantar wound, no drainage. IMPRESSION: 1. Profound deconditioning. 2. Resolving bullous pemphigoid. 3. Diabetes mellitus. 4. Chronic kidney disease. At the present time, patient appears to be profoundly deconditioned. No clear infectious process at the present time. He is afebrile with a normal white blood cell count. Would observe off antibiotic therapy. No objection to placement in a penitentiary facility for rehabilitation. Thank you for the kind referral. RENETTA SHERIDAN M.D. [id number]
[2019-12-06] MEDS: LEVOTHYROXINE NA 25 MCG TABLET (FP) PO SCH (06:08)
[2019-12-06] MEDS: PANTOPRAZOLE 20 MG TABLET PO SCH (06:09)
[2019-12-06] MEDS: TAMSULOSIN HCL 0.4 MG CAP PO SCH (09:20)
[2019-12-06] MEDS: predniSONE 20 MG TABLET (UD) PO SCH (09:20)
[2019-12-06] MEDS: APIXABAN 2.5 MG TABLET PO SCH ×2 (09:20→21:42)
[2019-12-06] MEDS: levETIRAcetam 500 MG TABLET (FP) PO SCH ×2 (09:20→21:42)
[2019-12-06] MEDS: CARVEDILOL 25 MG TABLET (FP) PO SCH ×2 (09:21→21:42)
[2019-12-06] MEDS: MYCOPHENOLATE MOFETIL 500 MG TABLET PO SCH ×2 (09:21→21:42)
[2019-12-06] MEDS: FUROSEMIDE 20 MG TABLET (FP) PO SCH (09:22)
[2019-12-06 09:45] LABS: ARTERIAL BLD GAS O2 SATURATION 94.5 mmHg (95-98); ARTERIAL BLOOD GAS BASE EXCESS -5.2 mmol/L (-2-2); ARTERIAL BLOOD GAS pH 7.235 (7.350-7.450)
[2019-12-06 09:46] LABS: ALLENS TEST POSITIVE
--- NOTE | 2019-12-06 10:19 | DS ---
Physical Examination Vital Signs: Vital Signs Temperature 98.3 F 12/06/19 08:12 Pulse Rate 68 12/06/19 08:12 Respiratory Rate 18 12/06/19 08:54 Blood Pressure 114/68 12/06/19 08:12 O2 Sat by Pulse Oximetry (%) 96 12/06/19 08:54 Cardiovascular: Yes: S1, S2 Respiratory: Yes: Regular, CTA Bilaterally Gastrointestinal: Yes: Normal Bowel Sounds, Soft Labs: CBC, BMP 12/05/19 09:40 12/05/19 09:40 Discharge Summary Problems reviewed: Yes Reason For Visit: BULLOUS PEMPHIGOID, WEAKNESS, UNABLE TO WALK Current Active Problems Bullous pemphigoid (Acute) Caregiver unable to cope (Acute) Diabetic ulcer of right foot (Acute) Generalized weakness (Acute) Unable to ambulate (Acute) Blisters of multiple sites (Chronic) Hospital Course: Problems (1) Bullous pemphigoid Assessment/Plan: continue with current meds tapering steroids Code(s): L12.0 - BULLOUS PEMPHIGOID (2) Caregiver unable to cope Assessment/Plan: Patient and refused placement now agreeable Code(s): Z74.8 - OTHER PROBLEMS RELATED TO CARE PROVIDER DEPENDENCY (3) Afib Assessment/Plan: on eliquis monitor counts Code(s): I48.91 - UNSPECIFIED ATRIAL FIBRILLATION (4) Anemia Assessment/Plan: hgb 7.7 Code(s): D64.9 - ANEMIA, UNSPECIFIED Qualifiers: Iron deficiency anemia type: chronic blood loss (5) CHF (congestive heart failure) Assessment/Plan: -cxr Code(s): I50.9 - HEART FAILURE, UNSPECIFIED (6) Diabetes mellitus Code(s): E11.9 - TYPE 2 DIABETES MELLITUS WITHOUT COMPLICATIONS (7) Hypothyroidism Code(s): E03.9 - HYPOTHYROIDISM, UNSPECIFIED (8) Altered mental state Assessment/Plan: -Improved -ABG-repeat noted CXR CT HEAD nad FOLLOW LABS Code(s): R41.82 - ALTERED MENTAL STATUS, UNSPECIFIED Condition: Stable - Instructions - Home Medications Comprehensive Discharge Medication List: Ambulatory Orders Levothyroxine [Synthroid -] 25 mcg PO DAILY 07/15/19 Tamsulosin HCl [Flomax] 0.4 mg PO DAILY 07/15/19 levETIRAcetam [Keppra -] 500 mg PO BID 07/15/19 Cholecalciferol (Vitamin D3) [Vitamin D -] 800 unit PO DAILY tab 08/26/19 Apixaban [Eliquis -] 2.5 mg PO BID #60 tablet 08/31/19 Carvedilol [Coreg -] 25 mg PO BID 11/06/19 Omeprazole 20 mg PO DAILY 11/06/19 Rosuvastatin [Crestor -] 10 mg PO DAILY 11/06/19 Furosemide [Lasix -] 20 mg PO DAILY tablet 12/06/19 Mycophenolate Mofetil [Cellcept -] 500 mg PO BID tablet 12/06/19 predniSONE [Deltasone -] 60 mg PO DAILY tablet 12/06/19
[2019-12-06 12:53] LABS: BASO % 0.2 % (0-2.0); EOS % 0.3 % (0-4.5); HEMATOCRIT 24.3 % (35.4-49); HEMOGLOBIN 7.3 GM/dL (11.7-16.9); LYMPH % 8.7 % (8-40); MCH 28.6 pg (25.7-33.7); MCHC 30.1 g/dl (32.0-35.9); MEAN CELL VOLUME 94.9 fl (80-96); MEAN PLT VOLUME 8.4 fl (7.5-11.1); MONO % 6.5 % (3.8-10.2); NEUT % 84.3 % (42.8-82.8); PLATELET COUNT 60 K/MM3 (134-434); RBC 2.56 M/mm3 (4.00-5.60); RDW 17.9 % (11.9-15.9); WHITE BLOOD COUNT 3.6 K/mm3 (4.0-10.0)
[2019-12-06 13:19] LABS: ALBUMIN 2.6 g/dl (3.4-5.0); BILIRUBIN,TOTAL 0.5 mg/dL (0.2-1); BLOOD UREA NITROGEN 99.4 mg/dL (7-18); CALCIUM 8.3 mg/dL (8.5-10.1); CREATININE 2.2 mg/dL (0.55-1.3); POTASSIUM 4.7 mmol/L (3.5-5.1); TOT PROT 5.7 g/dl (6.4-8.2)
--- NOTE | 2019-12-06 14:14 | CON.PULM ---
Consult Consult Specialty:: PULM/CCM Referred by:: NELIDA Reason for Consultation:: SOB - History of Present Illness Chief Complaint: weakness History of Present Illness: 79 M, CHF, CKD, anemia, a-fib, CAD, and CVA. Admitted via the ER due to weakness and deconditioning. He was discharged 1 day [employer]KE CR[employer]. Does report some dry cough but no overt SOB, PORTILLO, or CP. Afebrile. 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: CVA, Seizure, Other (Pituitary adenoma resection) Cardio/Vascular: Yes: AFIB, CAD, CHF (echo EF 55% large RV with TR), HTN, Hyperlipdemia, Murmur (holosystolic), Pulmonary Hypertension (severe), Other (perip[heral vascular disease) Gastrointestinal: Yes: Cancer (Laparoscopic right colon cancer resection), GI Bleed (01/14/18 ulcer in 3rd portion duodenum was cauterized), Other (Colon cancer) Hepatobiliary: Yes: Cholelithiasis, Other (fatty liver) Renal/: Yes: Renal Inusuff (see HPI), BPH Endocrine: Yes: Diabetes Mellitus, Hypothyroidism, Other (pituitary adenoma resection) Dermatology: Yes: Other (? 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 History of Recent Travel: No Home Medications - Allergies Allergies/Adverse Reactions: Allergies Allergy/AdvReac Type Severity Reaction Status Date / Time No Known Allergies Allergy Verified 11/13/19 11:04 - Home Medications Home Medications: Ambulatory Orders Levothyroxine [Synthroid -] 25 mcg PO DAILY 07/15/19 Tamsulosin HCl [Flomax] 0.4 mg PO DAILY 07/15/19 levETIRAcetam [Keppra -] 500 mg PO BID 07/15/19 Cholecalciferol (Vitamin D3) [Vitamin D -] 800 unit PO DAILY tab 08/26/19 Apixaban [Eliquis -] 2.5 mg PO BID #60 tablet 08/31/19 Carvedilol [Coreg -] 25 mg PO BID 11/06/19 Omeprazole 20 mg PO DAILY 11/06/19 Rosuvastatin [Crestor -] 10 mg PO DAILY 11/06/19 Furosemide [Lasix -] 20 mg PO DAILY tablet 12/06/19 Mycophenolate Mofetil [Cellcept -] 500 mg PO BID tablet 12/06/19 predniSONE [Deltasone -] 60 mg PO DAILY tablet 12/06/19 Review of Systems - Review of Systems Constitutional: reports: Malaise. denies: Chills, Fever, Night Sweats Eyes: reports: No Symptoms HENT: reports: No Symptoms Neck: reports: No Symptoms Cardiovascular: denies: Chest Pain, Edema, Palpitations, Shortness of Breath Respiratory: reports: Cough. denies: Hemoptysis, Snoring, SOB, SOB on Exertion, Wheezing Gastrointestinal: reports: No Symptoms Genitourinary: reports: No Symptoms Breasts: reports: No Symptoms Reported Musculoskeletal: reports: No Symptoms Integumentary: reports: No Symptoms Neurological: reports: No Symptoms Endocrine: reports: No Symptoms Hematology/Lymphatic: reports: No Symptoms Psychiatric: reports: No Symptoms Physical Exam Vital Sings: Vital Signs Temperature 98.3 F 12/06/19 08:12 Pulse Rate 68 12/06/19 08:12 Respiratory Rate 18 12/06/19 08:54 Blood Pressure 114/68 12/06/19 08:12 O2 Sat by Pulse Oximetry (%) 96 12/06/19 08:54 Constitutional: Yes: No Distress Eyes: Yes: Conjunctiva Clear, EOM Intact HENT: Yes: Atraumatic, Normocephalic Neck: Yes: Supple, Trachea Midline Cardiovascular: Yes: Pulse Irregular Respiratory: Yes: Cough. No: Accessory Muscle Use, Rales, Rhonchi, SOB, SOB on Exertion, Stridor, Tachypnea, Wheezes ...Inspection: Yes: WNL ...Clubbing: No Gastrointestinal: Yes: Normal Bowel Sounds, Soft Renal/: Yes: WNL Musculoskeletal: Yes: WNL Extremities: Yes: WNL Edema: No Peripheral Pulses WNL: Yes Integumentary: Yes: WNL Neurological: Yes: Alert Psychiatric: Yes: Alert Labs: CBC, BMP 12/06/19 12:10 12/06/19 12:10 ABG Results ABG pH 7.235 (7.350-7.450) L 12/06/19 09:30 ABG HCO3 22.0 mmol/L (22-27) 12/06/19 09:30 ABG O2 Sat (Measured) 94.5 mmHg (95-98) L 12/06/19 09:30 ABG O2 Content No Result Required. 12/06/19 09:30 ABG Base Excess -5.2 mmol/L (-2-2) L 12/06/19 09:30 Imaging - Results Chest X-ray: Report Reviewed, Image Reviewed Problem List - Problems (1) Bullous pemphigoid Code(s): L12.0 - BULLOUS PEMPHIGOID (2) Generalized weakness Code(s): R53.1 - WEAKNESS (3) Unable to ambulate Code(s): R26.2 - DIFFICULTY IN WALKING, NOT ELSEWHERE CLASSIFIED (4) Blisters of multiple sites Code(s): R23.8 - OTHER SKIN CHANGES (5) Abnormal liver enzymes Code(s): R74.8 - ABNORMAL LEVELS OF OTHER SERUM ENZYMES (6) Wound of foot Code(s): S91.309A - UNSPECIFIED OPEN WOUND, UNSPECIFIED FOOT, INITIAL ENCOUNTER (7) Afib Code(s): I48.91 - UNSPECIFIED ATRIAL FIBRILLATION (8) Anemia Code(s): D64.9 - ANEMIA, UNSPECIFIED Qualifiers: Iron deficiency anemia type: chronic blood loss (9) BPH (benign prostatic hyperplasia) Code(s): N40.0 - BENIGN PROSTATIC HYPERPLASIA WITHOUT LOWER URINRY TRACT SYMP (10) CAD (coronary artery disease) Code(s): I25.10 - ATHSCL HEART DISEASE OF [place] CORONARY ARTERY W/O ANG PCTRS (11) CHF (congestive heart failure) Code(s): I50.9 - HEART FAILURE, UNSPECIFIED (12) CKD (chronic kidney disease) Code(s): N18.9 - CHRONIC KIDNEY DISEASE, UNSPECIFIED (13) Diabetes mellitus Code(s): E11.9 - TYPE 2 DIABETES MELLITUS WITHOUT COMPLICATIONS (14) Diastolic CHF Code(s): I50.30 - UNSPECIFIED DIASTOLIC (CONGESTIVE) HEART FAILURE (15) Gastritis Code(s): K29.70 - GASTRITIS, UNSPECIFIED, WITHOUT BLEEDING (16) HTN (hypertension) Code(s): I10 - ESSENTIAL (PRIMARY) HYPERTENSION (17) History of colon cancer Code(s): Z85.038 - PERSONAL HISTORY OF MALIGNANT NEOPLASM OF LARGE INTESTINE (18) History of duodenal ulcer Code(s): Z87.19 - PERSONAL HISTORY OF OTHER DISEASES OF THE DIGESTIVE SYSTEM (19) Hyperlipidemia Code(s): E78.5 - HYPERLIPIDEMIA, UNSPECIFIED (20) Hypothyroid Code(s): E03.9 - HYPOTHYROIDISM, UNSPECIFIED (21) Paroxysmal atrial fibrillation Code(s): I48.0 - PAROXYSMAL ATRIAL FIBRILLATION (22) Peripheral arterial disease Code(s): I73.9 - PERIPHERAL VASCULAR DISEASE, UNSPECIFIED (23) Peripheral vascular disease Code(s): I73.9 - PERIPHERAL VASCULAR DISEASE, UNSPECIFIED (24) Pulmonary hypertension Code(s): I27.2 - OTHER SECONDARY PULMONARY HYPERTENSION * DO NOT USE * (25) Seizure Code(s): R56.9 - UNSPECIFIED CONVULSIONS (26) Seizure disorder Code(s): G40.909 - EPILEPSY, UNSP, NOT INTRACTABLE, WITHOUT STATUS EPILEPTICUS Assessment/Plan PLAN: At present do not suspect PNA or acute pulmonary pathology Workup of weakness per primary Monitor off ABX Supplemental O2 as needed There is no Pulmonary contraindication for DC Thank you. Dr Contreras
--- NOTE | 2019-12-06 18:39 | PN ---
Progress Note (short form) - Note Progress Note: Problems 1. CKD 2. CHF 3. BPH 4. a. fib 5. CAD 6. epilepsy 7. proteinuria 8. anemia 9. foot ulcer 10. abd wall cellulitis 11. bullous pemphigoid 12. LETITIA 13. hyperkalemia Active Medications Apixaban (Eliquis -) 2.5 mg PO BID [facility] Last Admin: 12/06/19 09:20 Dose: 2.5 mg Documented by: Carvedilol (Coreg -) 25 mg PO BID [facility] Last Admin: 12/06/19 09:21 Dose: 25 mg Documented by: Furosemide (Lasix -) 20 mg PO DAILY [facility] Last Admin: 12/06/19 09:22 Dose: 20 mg Documented by: Levetiracetam (Keppra -) 500 mg PO BID [facility] Last Admin: 12/06/19 09:20 Dose: 500 mg Documented by: Levothyroxine [facility]odium ([facility]throid -) [facility] Last Admin: 12/06/19 06:08 Dose: 25 mcg Documented by: Mycophenolate Mofetil (Cellcept -) 500 mg PO BID [facility] Last Admin: 12/06/19 09:21 Dose: 500 mg Documented by: Pantoprazole Sodium (Protonix -) 20 mg PO ACBK [facility] Last Admin: 12/06/19 06:09 Dose: 20 mg Documented by: Prednisone (Deltasone -) 60 mg PO DAILY [facility] Last Admin: 12/06/19 09:20 Dose: 60 mg Documented by: Rosuvastatin Calcium (Crestor -) 10 mg PO HS [facility] Tamsulosin HCl (Flomax -) 0.4 mg PO 0830 [facility] Last Admin: 12/06/19 09:20 Dose: 0.4 mg Documented by: Last Vital Signs Temp Pulse Resp BP Pulse Ox 98.3 F 68 18 114/68 96 12/06/19 08:12 12/06/19 08:12 12/06/19 08:54 12/06/19 08:12 12/06/19 08:54 alert in nad good appetite Lungs clear Heart reg Abd soft Ext no edema skin lesions diffus dry CBC, BMP 12/06/19 12:10 12/06/19 12:10 IMP continue same rx
[2019-12-06] MEDS ORDERED: PT OWN MED DRAWER 7, Y5N ONE (20:45)
[2019-12-06] MEDS ORDERED: ROSUVASTATIN CA 10 MG TABLET (FP) PO SCH (22:00)
[2019-12-07] MEDS: PANTOPRAZOLE 20 MG TABLET PO SCH (06:03)
[2019-12-07] MEDS: LEVOTHYROXINE NA 25 MCG TABLET (FP) PO SCH (06:03)
[2019-12-07] MEDS: MYCOPHENOLATE MOFETIL 500 MG TABLET PO SCH ×2 (09:36→22:56)
[2019-12-07] MEDS: predniSONE 20 MG TABLET (UD) PO SCH (09:36)
[2019-12-07] MEDS: CARVEDILOL 25 MG TABLET (FP) PO SCH ×2 (09:36→22:20)
[2019-12-07] MEDS: TAMSULOSIN HCL 0.4 MG CAP PO SCH (09:36)
[2019-12-07] MEDS: APIXABAN 2.5 MG TABLET PO SCH (09:37)
[2019-12-07] MEDS: FUROSEMIDE 20 MG TABLET (FP) PO SCH (09:37)
[2019-12-07] MEDS: levETIRAcetam 500 MG TABLET (FP) PO SCH ×2 (09:37→22:05)
--- NOTE | 2019-12-07 10:58 | DS ---
Physical Examination Vital Signs: Vital Signs Temperature 98.4 F 12/07/19 06:00 Pulse Rate 76 12/07/19 06:00 Respiratory Rate 18 12/07/19 06:00 Blood Pressure 101/63 12/07/19 06:00 O2 Sat by Pulse Oximetry (%) 96 12/06/19 20:40 Labs: CBC, BMP 12/06/19 12:10 12/06/19 12:10 Discharge Summary Problems reviewed: Yes Reason For Visit: BULLOUS PEMPHIGOID, WEAKNESS, UNABLE TO WALK Current Active Problems Bullous pemphigoid (Acute) Caregiver unable to cope (Acute) Diabetic ulcer of right foot (Acute) Generalized weakness (Acute) Unable to ambulate (Acute) Blisters of multiple sites (Chronic) Hospital Course: Problems (1) Bullous pemphigoid Assessment/Plan: continue with current meds tapering steroids Code(s): L12.0 - BULLOUS PEMPHIGOID (2) Caregiver unable to cope Assessment/Plan: Patient and refused placement now agreeable Code(s): Z74.8 - OTHER PROBLEMS RELATED TO CARE PROVIDER DEPENDENCY (3) Afib Assessment/Plan: on eliquis monitor counts Code(s): I48.91 - UNSPECIFIED ATRIAL FIBRILLATION (4) Anemia Assessment/Plan: hgb 7.7 Code(s): D64.9 - ANEMIA, UNSPECIFIED Qualifiers: Iron deficiency anemia type: chronic blood loss (5) CHF (congestive heart failure) Assessment/Plan: -cxr Code(s): I50.9 - HEART FAILURE, UNSPECIFIED (6) Diabetes mellitus Code(s): E11.9 - TYPE 2 DIABETES MELLITUS WITHOUT COMPLICATIONS (7) Hypothyroidism Code(s): E03.9 - HYPOTHYROIDISM, UNSPECIFIED (8) Altered mental state Assessment/Plan: -Improved -ABG-repeat noted CXR CT HEAD nad FOLLOW LABS Code(s): R41.82 - ALTERED MENTAL STATUS, UNSPECIFIED Condition: Stable - Instructions - Home Medications Comprehensive Discharge Medication List: Ambulatory Orders Levothyroxine [Synthroid -] 25 mcg PO DAILY 07/15/19 Tamsulosin HCl [Flomax] 0.4 mg PO DAILY 07/15/19 levETIRAcetam [Keppra -] 500 mg PO BID 07/15/19 Cholecalciferol (Vitamin D3) [Vitamin D -] 800 unit PO DAILY tab 08/26/19 Apixaban [Eliquis -] 2.5 mg PO BID #60 tablet 08/31/19 Carvedilol [Coreg -] 25 mg PO BID 11/06/19 Omeprazole 20 mg PO DAILY 11/06/19 Rosuvastatin [Crestor -] 10 mg PO DAILY 11/06/19 Furosemide [Lasix -] 20 mg PO DAILY tablet 12/06/19 Mycophenolate Mofetil [Cellcept -] 500 mg PO BID tablet 12/06/19 predniSONE [Deltasone -] 60 mg PO DAILY tablet 12/06/19
--- NOTE | 2019-12-07 13:06 | PN ---
Progress Note (short form) - Note Progress Note: Resting in NAD. No CP or SOB. No acute events overnight. Intake & Output 12/04/19 12/05/19 12/06/19 12/07/19 23:59 23:59 23:59 23:59 Intake Total 7371 846 8965 660 Output Total 300 1300 Balance 1040 -200 340 660 Weight 204 lb 6.4 oz 232 lb 234 lb 4 oz Last Vital Signs Temp Pulse Resp BP Pulse Ox 98.4 F 76 18 101/63 96 12/07/19 06:00 12/07/19 06:00 12/07/19 06:00 12/07/19 06:00 12/06/19 20:40 Active Medications Apixaban (Eliquis -) 2.5 mg PO BID [facility] Last Admin: 12/07/19 09:37 Dose: 2.5 mg Documented by: Carvedilol (Coreg -) 25 mg PO BID [facility] Last Admin: 12/07/19 09:36 Dose: 25 mg Documented by: Furosemide (Lasix -) 20 mg PO DAILY [facility] Last Admin: 12/07/19 09:37 Dose: 20 mg Documented by: Levetiracetam (Keppra -) 500 mg PO BID [facility] Last Admin: 12/07/19 09:37 Dose: 500 mg Documented by: Levothyroxine Sodium (Synthroid -) 25 mcg PO BK [facility] Last Admin: 12/07/19 06:03 Dose: 25 mcg Documented by: Mycophenolate Mofetil (Cellcept -) 500 mg PO BID [facility] Last Admin: 12/07/19 09:36 Dose: 500 mg Documented by: Pantoprazole Sodium (Protonix -) 20 mg PO ACBK [facility] Last Admin: 12/07/19 06:03 Dose: 20 mg Documented by: Prednisone (Deltasone -) 60 mg PO DAILY [facility] Last Admin: 12/07/19 09:36 Dose: 60 mg Documented by: Rosuvastatin Calcium (Crestor -) 10 mg PO HS [facility] Last Admin: 12/06/19 21:43 Dose: 10 mg Documented by: Tamsulosin HCl (Flomax -) 0.4 mg PO 0830 [facility] Last Admin: 12/07/19 09:36 Dose: 0.4 mg Documented by: Intake & Output 12/04/19 12/05/19 12/06/19 12/07/19 23:59 23:59 23:59 23:59 Intake Total 8228 317 3861 660 Output Total 300 1300 Balance 1040 -200 340 660 Weight 204 lb 6.4 oz 232 lb 234 lb 4 oz Last Vital Signs Temp Pulse Resp BP Pulse Ox 98.4 F 76 18 101/63 96 12/07/19 06:00 12/07/19 06:00 12/07/19 06:00 12/07/19 06:00 12/06/19 20:40 Active Medications Apixaban (Eliquis -) 2.5 mg PO BID [facility] Last Admin: 12/07/19 09:37 Dose: 2.5 mg Documented by: Carvedilol (Coreg -) 25 mg PO BID [facility] Last Admin: 12/07/19 09:36 Dose: 25 mg Documented by: Furosemide (Lasix -) 20 mg PO DAILY [facility] Last Admin: 12/07/19 09:37 Dose: 20 mg Documented by: Levetiracetam (Keppra -) 500 mg PO BID [facility] Last Admin: 12/07/19 09:37 Dose: 500 mg Documented by: Levothyroxine Sodium (Synthroid -) 25 mcg PO [facility] Last Admin: 12/07/19 06:03 Dose: 25 mcg Documented by: Mycophenolate Mofetil (Cellcept -) 500 mg PO BID [facility] Last Admin: 12/07/19 09:36 Dose: 500 mg Documented by: Pantoprazole Sodium (Protonix -) 20 mg PO ACBK [facility] Last Admin: 12/07/19 06:03 Dose: 20 mg Documented by: Prednisone (Deltasone -) 60 mg PO DAILY [facility] Last Admin: 12/07/19 09:36 Dose: 60 mg Documented by: Rosuvastatin Calcium (Crestor -) 10 mg PO HS [facility] Last Admin: 12/06/19 21:43 Dose: 10 mg Documented by: Tamsulosin HCl (Flomax -) 0.4 mg PO 0830 [facility] Last Admin: 12/07/19 09:36 Dose: 0.4 mg Documented by: Constitutional: Yes: No Distress Eyes: Yes: Conjunctiva Clear, EOM Intact HENT: Yes: Atraumatic, Normocephalic Neck: Yes: Supple, Trachea Midline Cardiovascular: Yes: Pulse Irregular Respiratory: Yes: Cough. No: Accessory Muscle Use, Rales, Rhonchi, SOB, SOB on Exertion, Stridor, Tachypnea, Wheezes ...Inspection: Yes: WNL ...Clubbing: No Gastrointestinal: Yes: Normal Bowel Sounds, Soft Renal/: Yes: WNL Musculoskeletal: Yes: WNL Extremities: Yes: WNL Edema: No Peripheral Pulses WNL: Yes Integumentary: Yes: WNL Neurological: Yes: Alert Psychiatric: Yes: Alert Labs: Laboratory Results - last 24 hr 12/06/19 12:10 Sodium 142 Potassium 4.7 Chloride 111 H Carbon Dioxide 21 Anion Gap 10 BUN 99.4 H Creatinine 2.2 H Est GFR (CKD-EPI)AfAm 31.40 Est GFR (CKD-EPI)NonAf 27.09 Random Glucose 133 H Calcium 8.3 L Total Bilirubin 0.5 AST 17 ALT 25 Alkaline Phosphatase 106 Total Protein 5.7 L Albumin 2.6 L Imaging - Results Chest X-ray: Report Reviewed, Image Reviewed Problem List - Problems (1) Bullous pemphigoid Code(s): L12.0 - BULLOUS PEMPHIGOID (2) Generalized weakness Code(s): R53.1 - WEAKNESS (3) Unable to ambulate Code(s): R26.2 - DIFFICULTY IN WALKING, NOT ELSEWHERE CLASSIFIED (4) Blisters of multiple sites Code(s): R23.8 - OTHER SKIN CHANGES (5) Abnormal liver enzymes Code(s): R74.8 - ABNORMAL LEVELS OF OTHER SERUM ENZYMES (6) Wound of foot Code(s): S91.309A - UNSPECIFIED OPEN WOUND, UNSPECIFIED FOOT, INITIAL ENCOUNTER (7) Afib Code(s): I48.91 - UNSPECIFIED ATRIAL FIBRILLATION (8) Anemia Code(s): D64.9 - ANEMIA, UNSPECIFIED Qualifiers: Iron deficiency anemia type: chronic blood loss (9) BPH (benign prostatic hyperplasia) Code(s): N40.0 - BENIGN PROSTATIC HYPERPLASIA WITHOUT LOWER URINRY TRACT SYMP (10) CAD (coronary artery disease) Code(s): I25.10 - ATHSCL HEART DISEASE OF [place] CORONARY ARTERY W/O ANG PCTRS (11) CHF (congestive heart failure) Code(s): I50.9 - HEART FAILURE, UNSPECIFIED (12) CKD (chronic kidney disease) Code(s): N18.9 - CHRONIC KIDNEY DISEASE, UNSPECIFIED (13) Diabetes mellitus Code(s): E11.9 - TYPE 2 DIABETES MELLITUS WITHOUT COMPLICATIONS (14) Diastolic CHF Code(s): I50.30 - UNSPECIFIED DIASTOLIC (CONGESTIVE) HEART FAILURE (15) Gastritis Code(s): K29.70 - GASTRITIS, UNSPECIFIED, WITHOUT BLEEDING (16) HTN (hypertension) Code(s): I10 - ESSENTIAL (PRIMARY) HYPERTENSION (17) History of colon cancer Code(s): Z85.038 - PERSONAL HISTORY OF MALIGNANT NEOPLASM OF LARGE INTESTINE (18) History of duodenal ulcer Code(s): Z87.19 - PERSONAL HISTORY OF OTHER DISEASES OF THE DIGESTIVE SYSTEM (19) Hyperlipidemia Code(s): E78.5 - HYPERLIPIDEMIA, UNSPECIFIED (20) Hypothyroid Code(s): E03.9 - HYPOTHYROIDISM, UNSPECIFIED (21) Paroxysmal atrial fibrillation Code(s): I48.0 - PAROXYSMAL ATRIAL FIBRILLATION (22) Peripheral arterial disease Code(s): I73.9 - PERIPHERAL VASCULAR DISEASE, UNSPECIFIED (23) Peripheral vascular disease Code(s): I73.9 - PERIPHERAL VASCULAR DISEASE, UNSPECIFIED (24) Pulmonary hypertension Code(s): I27.2 - OTHER SECONDARY PULMONARY HYPERTENSION * DO NOT USE * (25) Seizure Code(s): R56.9 - UNSPECIFIED CONVULSIONS (26) Seizure disorder Code(s): G40.909 - EPILEPSY, UNSP, NOT INTRACTABLE, WITHOUT STATUS EPILEPTICUS Assessment/Plan At present do not suspect PNA or acute pulmonary pathology Monitor off ABX Supplemental O2 as needed There is no Pulmonary contraindication for DC Dr Contreras Problem List - Problems (1) Bullous pemphigoid Code(s): L12.0 - BULLOUS PEMPHIGOID (2) Generalized weakness Code(s): R53.1 - WEAKNESS (3) Unable to ambulate Code(s): R26.2 - DIFFICULTY IN WALKING, NOT ELSEWHERE CLASSIFIED (4) Blisters of multiple sites Code(s): R23.8 - OTHER SKIN CHANGES (5) Abnormal liver enzymes Code(s): R74.8 - ABNORMAL LEVELS OF OTHER SERUM ENZYMES (6) Wound of foot Code(s): S91.309A - UNSPECIFIED OPEN WOUND, UNSPECIFIED FOOT, INITIAL ENCOUNTER (7) Afib Code(s): I48.91 - UNSPECIFIED ATRIAL FIBRILLATION (8) Anemia Code(s): D64.9 - ANEMIA, UNSPECIFIED Qualifiers: Iron deficiency anemia type: chronic blood loss (9) BPH (benign prostatic hyperplasia) Code(s): N40.0 - BENIGN PROSTATIC HYPERPLASIA WITHOUT LOWER URINRY TRACT SYMP (10) CAD (coronary artery disease) Code(s): I25.10 - ATHSCL HEART DISEASE OF [place] CORONARY ARTERY W/O ANG PCTRS (11) CHF (congestive heart failure) Code(s): I50.9 - HEART FAILURE, UNSPECIFIED (12) CKD (chronic kidney disease) Code(s): N18.9 - CHRONIC KIDNEY DISEASE, UNSPECIFIED (13) Diabetes mellitus Code(s): E11.9 - TYPE 2 DIABETES MELLITUS WITHOUT COMPLICATIONS (14) Diastolic CHF Code(s): I50.30 - UNSPECIFIED DIASTOLIC (CONGESTIVE) HEART FAILURE (15) Gastritis Code(s): K29.70 - GASTRITIS, UNSPECIFIED, WITHOUT BLEEDING (16) HTN (hypertension) Code(s): I10 - ESSENTIAL (PRIMARY) HYPERTENSION (17) History of colon cancer Code(s): Z85.038 - PERSONAL HISTORY OF MALIGNANT NEOPLASM OF LARGE INTESTINE (18) History of duodenal ulcer Code(s): Z87.19 - PERSONAL HISTORY OF OTHER DISEASES OF THE DIGESTIVE SYSTEM (19) Hyperlipidemia Code(s): E78.5 - HYPERLIPIDEMIA, UNSPECIFIED (20) Hypothyroid Code(s): E03.9 - HYPOTHYROIDISM, UNSPECIFIED (21) Paroxysmal atrial fibrillation Code(s): I48.0 - PAROXYSMAL ATRIAL FIBRILLATION (22) Peripheral arterial disease Code(s): I73.9 - PERIPHERAL VASCULAR DISEASE, UNSPECIFIED (23) Peripheral vascular disease Code(s): I73.9 - PERIPHERAL VASCULAR DISEASE, UNSPECIFIED (24) Pulmonary hypertension Code(s): I27.2 - OTHER SECONDARY PULMONARY HYPERTENSION * DO NOT USE * (25) Seizure Code(s): R56.9 - UNSPECIFIED CONVULSIONS (26) Seizure disorder Code(s): G40.909 - EPILEPSY, UNSP, NOT INTRACTABLE, WITHOUT STATUS EPILEPTICUS
[2019-12-07] MEDS ORDERED: ALBUTEROL SO4 2.5/IPRATROPIUM 0.5 INH SOL 3 ML VIAL.NEB. NEB PRN (13:25)
[2019-12-07 14:13] LABS: HEMATOCRIT 23.9 % (35.4-49); HEMOGLOBIN 7.2 GM/dL (11.7-16.9); MCH 28.3 pg (25.7-33.7); MCHC 29.9 g/dl (32.0-35.9); MEAN CELL VOLUME 94.5 fl (80-96); MEAN PLT VOLUME 8.2 fl (7.5-11.1); PLATELET COUNT 66 K/MM3 (134-434); RBC 2.53 M/mm3 (4.00-5.60); RDW 18.1 % (11.9-15.9); WHITE BLOOD COUNT 4.1 K/mm3 (4.0-10.0)
[2019-12-07 14:48] LABS: ANION GAP 7 MMOL/L (8-16); BLOOD UREA NITROGEN 101.2 mg/dL (7-18); CALCIUM 7.9 mg/dL (8.5-10.1); CHLORIDE 110 mmol/L (98-107); CO2 23 mmol/L (21-32); CREATININE 2.6 mg/dL (0.55-1.3); GLUCOSE,RANDOM 205 mg/dL (74-106); POTASSIUM 5.6 mmol/L (3.5-5.1); SODIUM 140 mmol/L (136-145)
--- NOTE | 2019-12-07 14:59 | RAPID ---
Physical Examination Vital Signs: Vital Signs Temperature 97.3 F L 12/07/19 13:21 Pulse Rate 76 12/07/19 06:00 Respiratory Rate 18 12/07/19 06:00 Blood Pressure 101/63 12/07/19 06:00 O2 Sat by Pulse Oximetry (%) 96 12/06/19 20:40 Findings/Remarks: Rapid Response called at 1:10PM after patient was found to be drowsy with BP 53/16 Subjective Pt found to be lethargic but easily arousable, responds to verbal stimuli. Objective Vitals: - Afebrile - BP 53/16 - SpO2 99% Exam: - AOx3, multiple skin blisters 2/2 Bullous Pemphigoid - Decreased air entry - RRR A&P - CBC, CMP, VBG, CXR, EKG, Blood/Urine cx, lactic Acid ordered - LETITIA/hypotension: Likely 2/2 hypovolemia, Cr noted to be elevated, 2.2 -> 2.6, LETITIA, will hold Lasix for 24H, holding BP meds - SOB: CXR shows no acute pathology, started on Duoebs for SOB, BiPAP overnight ordered - EKG shows no changes compared to previous EKG in 12/02 - Hyperkalemia: 5.6, hemolyzed? Pt has had normal K and was also on Lasix (lowers K), repeat K ordered - Transfer to [facility] for closer monitoring. Labs: CBC, BMP 12/07/19 14:00 12/07/19 14:00
[2019-12-07] MEDS ORDERED: ALBUTEROL SO4 2.5/IPRATROPIUM 0.5 INH SOL 3 ML VIAL.NEB. NEB SCH (16:00)
--- NOTE | 2019-12-07 16:30 | EKG ---
Test Reason : Blood Pressure : / mmHG Vent. Rate : 060 BPM Atrial Rate : 082 BPM P-R Int : 000 ms QRS Dur : 100 ms QT Int : 458 ms P-R-T Axes : 000 125 078 degrees QTc Int : 458 ms ATRIAL FIBRILLATION ANTEROLATERAL INFARCT (CITED ON OR BEFORE 05-NOV-2017) ABNORMAL ECG Confirmed by MD Dinesh, Roshan ([id number]) on 12/07/2019 4:29:40 PM Referred By: Gus NUNES Confirmed By:Roshan Montiel MD
[2019-12-07 20:40] LABS: BASO % 0.1 % (0-2.0); HEMOGLOBIN 7.9 GM/dL (11.7-16.9); LYMPH % 2.7 % (8-40); MCH 28.8 pg (25.7-33.7); MCHC 29.4 g/dl (32.0-35.9); MEAN PLT VOLUME 9.5 fl (7.5-11.1); MONO % 0.9 % (3.8-10.2); NEUT % 96.3 % (42.8-82.8); PLATELET COUNT 87 K/MM3 (134-434); RBC 2.75 M/mm3 (4.00-5.60); RDW 18.3 % (11.9-15.9); WHITE BLOOD COUNT 4.3 K/mm3 (4.0-10.0)
[2019-12-07] MEDS ORDERED: APIXABAN 2.5 MG TABLET PO SCH (22:00)
[2019-12-07] MEDS: ROSUVASTATIN CA 10 MG TABLET (FP) PO SCH (22:05)
[2019-12-07 22:08] LABS: ANISOCYTOSIS 2+; MACROCYTOSIS 1+; OVALOCYTE 1+; PLATELET ESTIMATE DECREASED; TEAR DROP CELLS 1+
[2019-12-08 01:41] LABS: ALBUMIN 2.7 g/dl (3.4-5.0); BILIRUBIN,TOTAL 0.3 mg/dL (0.2-1); CREATININE 2.7 mg/dL (0.55-1.3); POTASSIUM 5.9 mmol/L (3.5-5.1)
[2019-12-08 01:52] LABS: BLOOD UREA NITROGEN 111.8 mg/dL (7-18)
[2019-12-08] MEDS ORDERED: INSULIN REGULAR HUMAN 100 UNITS/ML *VIAL IVPUSH ONE (01:57)
[2019-12-08] MEDS ORDERED: ALBUTEROL SO4 2.5/IPRATROPIUM 0.5 INH SOL 3 ML VIAL.NEB. NEB ONE (01:57)
[2019-12-08] MEDS ORDERED: DEXTROSE 50%-WATER - 25 GM/50 ML VIAL IVPUSH ONE (02:15)
[2019-12-08] MEDS ORDERED: SODIUM ZIRCONIUM CYCLOSILICATE (LOKELMA) 5 GM PACKET PO ONE (02:15)
[2019-12-08] MEDS ORDERED: CALCIUM GLUCONATE 10% - 1,000 MG/10 ML VIAL IVPUSH ONE (02:15)
[2019-12-08] MEDS ORDERED: DEXTROSE 50%-WATER 25 GM/50 ML DISP.SYRIN ONE (02:26)
[2019-12-08] MEDS: LEVOTHYROXINE NA 25 MCG TABLET (FP) PO SCH (06:18)
[2019-12-08 06:51] LABS: HEMATOCRIT 25.2 % (35.4-49); HEMOGLOBIN 7.6 GM/dL (11.7-16.9); LYMPH % 6.1 % (8-40); MCH 28.6 pg (25.7-33.7); MCHC 30.2 g/dl (32.0-35.9); MEAN CELL VOLUME 94.6 fl (80-96); MEAN PLT VOLUME 7.9 fl (7.5-11.1); MONO % 3.3 % (3.8-10.2); NEUT % 90.6 % (42.8-82.8); PLATELET COUNT 76 K/MM3 (134-434); RBC 2.66 M/mm3 (4.00-5.60); RDW 17.6 % (11.9-15.9); WHITE BLOOD COUNT 3.1 K/mm3 (4.0-10.0)
[2019-12-08] MEDS ORDERED: PANTOPRAZOLE 40 MG TABLET PO SCH (07:00)
[2019-12-08 07:23] LABS: POTASSIUM 5.4 mmol/L (3.5-5.1)
[2019-12-08 07:29] LABS: ALBUMIN 2.8 g/dl (3.4-5.0); BILIRUBIN,TOTAL 0.5 mg/dL (0.2-1); CALCIUM 8.5 mg/dL (8.5-10.1); CREATININE 2.8 mg/dL (0.55-1.3); MAGNESIUM 2.2 mg/dL (1.8-2.4); PHOSPHOROUS 5.8 mg/dL (2.5-4.9); TOT PROT 6.1 g/dl (6.4-8.2)
[2019-12-08 07:35] LABS: BLOOD UREA NITROGEN 115.9 mg/dL (7-18)
--- NOTE | 2019-12-08 08:24 | PN ---
Progress Note, Physician - Current Medication List Current Medications: Active Medications Albuterol/Ipratropium (Duoneb -) 1 amp NEB Q4H PRN PRN Reason: SHORT OF BREATH/WHEEZING Last Admin: 12/08/19 02:38 Dose: 1 amp Documented by: Carvedilol (Coreg -) 25 mg PO BID [facility] Last Admin: 12/07/19 22:20 Dose: Not Given Documented by: Furosemide (Lasix -) 20 mg PO DAILY [facility] Levetiracetam (Keppra -) 500 mg PO BID [facility] Last Admin: 12/07/19 22:05 Dose: 500 mg Documented by: Levothyroxine Sodium (Synthroid -) 25 mcg PO ACBK [facility] Last Admin: 12/08/19 06:18 Dose: 25 mcg Documented by: Mycophenolate Mofetil (Cellcept -) 500 mg PO BID [facility] Last Admin: 12/07/19 22:56 Dose: 500 mg Documented by: Pantoprazole Sodium (Protonix -) 40 mg PO ACBK [facility] Last Admin: 12/08/19 06:17 Dose: 40 mg Documented by: Prednisone (Deltasone -) 60 mg PO DAILY [facility] Rosuvastatin Calcium (Crestor -) 10 mg PO HS [facility] Last Admin: 12/07/19 22:05 Dose: 10 mg Documented by: Tamsulosin HCl (Flomax -) 0.4 mg PO 0830 [facility] - Objective Vital Signs: Vital Signs Temperature 97.6 F 12/08/19 05:00 Pulse Rate 74 12/08/19 05:00 Respiratory Rate 20 12/08/19 05:00 Blood Pressure 112/70 12/08/19 05:00 O2 Sat by Pulse Oximetry (%) 96 12/07/19 21:00 Cardiovascular: Yes: S1, S2 Respiratory: Yes: Diminished Gastrointestinal: Yes: Normal Bowel Sounds, Soft Labs: CBC, BMP 12/08/19 06:30 12/08/19 06:30 Problem List - Problems (1) Bullous pemphigoid Assessment/Plan: continue with current meds tapering steroids Code(s): L12.0 - BULLOUS PEMPHIGOID (2) Caregiver unable to cope Assessment/Plan: Patient and refused placement now agreeable Code(s): Z74.8 - OTHER PROBLEMS RELATED TO CARE PROVIDER DEPENDENCY (3) Afib Assessment/Plan: off eliquis due to anemia and low platelets monitor counts Code(s): I48.91 - UNSPECIFIED ATRIAL FIBRILLATION (4) Anemia Assessment/Plan: monitor Code(s): D64.9 - ANEMIA, UNSPECIFIED Qualifiers: Iron deficiency anemia type: chronic blood loss (5) CHF (congestive heart failure) Assessment/Plan: -cxr noted cardio follow up Code(s): I50.9 - HEART FAILURE, UNSPECIFIED (6) Diabetes mellitus Code(s): E11.9 - TYPE 2 DIABETES MELLITUS WITHOUT COMPLICATIONS (7) Hypothyroidism Code(s): E03.9 - HYPOTHYROIDISM, UNSPECIFIED (8) Altered mental state Assessment/Plan: Microbiology 12/07/19 14:00 Blood - Peripheral Venous Blood Culture - Preliminary Pending Organism ID consult follow up BC Code(s): R41.82 - ALTERED MENTAL STATUS, UNSPECIFIED
--- NOTE | 2019-12-08 09:39 | CON.HO ---
Consult - text type - Consultation Consultation Note: Followup reconsult on anemia. I see the anemia go back to at least 2018. Readmitted, very deconditioned and long -term placement recommended. Bun 119, Cr 2.8, WBC lower than before today 3.6, Hb 7.2 stable compared to the past, Cr. 2.8, plt 60 stable. Iron saturation was OK. Can start Procrit 40.000.00 weekly and follow. The reason for thrombocytopenia is not completely clear, but most likely due to hyperspenism or medications, and it is also long standing. As long as it stays above 50, the patient's general condition and long standing thromocytopenia do not demand a workup. Noted is the BUN/Cr, ration - fluid management, CHF
[2019-12-08] MEDS ORDERED: cefTRIAXone SODIUM 1 GM VIAL ONE (09:57)
[2019-12-08] MEDS ORDERED: DEXTROSE 5%-WATER - 50 ML IVPB ONE (09:57)
[2019-12-08] MEDS ORDERED: FUROSEMIDE 20 MG TABLET (FP) PO SCH (10:00)
[2019-12-08] MEDS ORDERED: predniSONE 20 MG TABLET (UD) PO SCH ×2 (10:00→13:25)
[2019-12-08] MEDS: TAMSULOSIN HCL 0.4 MG CAP PO SCH (10:44)
[2019-12-08] MEDS: CARVEDILOL 25 MG TABLET (FP) PO SCH ×2 (10:45→21:55)
[2019-12-08] MEDS: levETIRAcetam 500 MG TABLET (FP) PO SCH ×2 (10:45→21:55)
[2019-12-08] MEDS ORDERED: PT OWN MED DRAWER 7, Y5N ONE (10:47)
[2019-12-08] MEDS: MYCOPHENOLATE MOFETIL 500 MG TABLET PO SCH ×2 (10:48→21:55)
[2019-12-08] MEDS: CEFTRIAXONE 1 GM in DEXTROSE 5%-WATER - 50 ML IVPB SCH (10:58)
[2019-12-08] MEDS ORDERED: VANCOMYCIN 1 GRAM (PRE-DOCKED) 1,000 MG/250 ML BAG IVPB ONE (11:00)
--- NOTE | 2019-12-08 11:52 | PN ---
Progress Note, Physician History of Present Illness: Pt seen and examined at bedside. He complain of lower ext edema and shortness of breath when flat. - Current Medication List Current Medications: Active Medications Albuterol/Ipratropium (Duoneb -) 1 amp NEB Q4H PRN PRN Reason: SHORT OF BREATH/WHEEZING Last Admin: 12/08/19 02:38 Dose: 1 amp Documented by: Carvedilol (Coreg -) 25 mg PO BID [facility] Last Admin: 12/08/19 10:45 Dose: 25 mg Documented by: Furosemide (Lasix -) 20 mg PO DAILY [facility] Last Admin: 12/08/19 10:45 Dose: 20 mg Documented by: Ceftriaxone Sodium 1 gm/ (Dextrose) 50 mls @ 100 mls/hr IVPB DAILY [facility]; Protocol Last Admin: 12/08/19 10:58 Dose: 100 mls/hr Documented by: Vancomycin HCl (Vancomycin (Pre-Docked)) 1,000 mg in 250 mls @ 166.667 mls/hr IVPB ONCE ONE; Protocol Stop: 12/08/19 12:29 Last Admin: 12/08/19 11:38 Dose: 166.667 mls/hr Documented by: Levetiracetam (Keppra -) 500 mg PO BID [facility] Last Admin: 12/08/19 10:45 Dose: 500 mg Documented by: Levothyroxine Sodium (Synthroid -) 25 mcg PO ACBK [facility] Last Admin: 12/08/19 06:18 Dose: 25 mcg Documented by: Mycophenolate Mofetil (Cellcept -) 500 mg PO BID [facility] Last Admin: 12/08/19 10:48 Dose: 500 mg Documented by: Pantoprazole Sodium (Protonix -) 40 mg PO ACBK [facility] Last Admin: 12/08/19 06:17 Dose: 40 mg Documented by: Prednisone (Deltasone -) 60 mg PO DAILY [facility] Last Admin: 12/08/19 10:44 Dose: 60 mg Documented by: Rosuvastatin Calcium (Crestor -) 10 mg PO HS [facility] Last Admin: 12/07/19 22:05 Dose: 10 mg Documented by: Tamsulosin HCl (Flomax -) 0.4 mg PO 0830 [facility] Last Admin: 12/08/19 10:44 Dose: 0.4 mg Documented by: - Objective Vital Signs: Vital Signs Temperature 97.6 F 06/22/20 05:00 Pulse Rate 74 12/08/19 05:00 Respiratory Rate 20 12/08/19 05:00 Blood Pressure 112/70 12/08/19 05:00 O2 Sat by Pulse Oximetry (%) 96 12/07/19 21:00 Constitutional: Yes: Calm Eyes: Yes: Conjunctiva Clear HENT: Yes: Atraumatic Neck: Yes: Supple Cardiovascular: Yes: S1, S2 Respiratory: Yes: On Nasal O2, Rhonchi Gastrointestinal: Yes: Normal Bowel Sounds Genitourinary: Yes: WNL Musculoskeletal: Yes: WNL Edema: Yes Edema: LLE: 1+, RLE: 1+ Integumentary: Yes: Other (bullous memphigoid) Neurological: Yes: Oriented Psychiatric: Yes: Oriented Labs: CBC, BMP 12/08/19 06:30 12/08/19 06:30 Assessment/Plan Current Medications Generic Name Dose Route Start Last Admin Trade Name Freq PRN Reason Stop Dose Admin Albuterol/Ipratropium 1 amp 12/07/19 13:25 12/08/19 02:38 Duoneb - NEB 1 amp Q4H PRN Administration SHORT OF BREATH/WHEEZING Carvedilol 25 mg 12/07/19 22:00 12/08/19 10:45 Coreg - PO 25 mg BID [facility] Administration Furosemide 20 mg 12/08/19 10:00 12/08/19 10:45 Lasix - PO 20 mg DAILY [facility] Administration Ceftriaxone Sodium 1 gm/ 50 mls @ 100 mls/hr 12/08/19 10:00 12/08/19 10:58 Dextrose IVPB 100 mls/hr DAILY [facility] Administration Protocol Vancomycin HCl 1,000 mg in 250 mls @ 166.667 mls/hr 12/08/19 11:00 12/08/19 11:38 Vancomycin (Pre-Docked) IVPB 12/08/19 12:29 166.667 mls/hr ONCE ONE Administration Protocol Levetiracetam 500 mg 12/07/19 22:00 12/08/19 10:45 Keppra - PO 500 mg BID [facility] Administration Levothyroxine Sodium 25 mcg 12/08/19 07:00 12/08/19 06:18 Synthroid - PO 25 mcg ACBK [facility] Administration Mycophenolate Mofetil 500 mg 12/07/19 22:00 12/08/19 10:48 Cellcept - PO 500 mg BID [facility] Administration Pantoprazole Sodium 40 mg 12/08/19 07:00 12/08/19 06:17 Protonix - PO 40 mg ACBK [facility] Administration Prednisone 60 mg 12/08/19 10:00 12/08/19 10:44 Deltasone - PO 60 mg DAILY [facility] Administration Rosuvastatin Calcium 10 mg 12/07/19 22:00 12/07/19 22:05 Crestor - PO 10 mg HS [facility] Administration Tamsulosin HCl 0.4 mg 12/08/19 08:30 12/08/19 10:44 Flomax - PO 0.4 mg 0830 [facility] Administration Impression 1. CKD 2. CHF 3. BPH 4. a. fib 5. CAD 6. epilepsy 7. proteinuria 8. anemia 9. foot ulcer 10. abd wall cellulitis 11. bullous pemphigoid 12. LETITIA 13. hyperkalemia Plan - will give an iv dose of lasix for overload - taper down steroids - cont cellcept - steroids contribute to elevated bun - lasix should help with potassium - will give lokelma as well - repeat labs in am - cont pt/rehab
[2019-12-08] MEDS: FUROSEMIDE 40 MG/4 ML INJECTABLE VIAL IVPUSH SCH (12:21)
--- NOTE | 2019-12-08 13:45 | CON.CARD ---
Consult Consult Specialty:: cardiology Referred by:: ahseeb Reason for Consultation:: chf - History of Present Illness Chief Complaint: weakness History of Present Illness: 79 year old male with a pmhx of anemia, diastolic chf, afib on apixaban, cad s/p pci, htn, hld, cva, ckd, hypothyroidism, and bullous pemphigoid presenting with weakness. CXR cardiomegaly, vascular congestion EKG: afib with VR 60bpm, anterolateral infarct Echocardiogram LVEF 50-55%, no significant valve disease. 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 History of Recent Travel: No Home Medications - Allergies Allergies/Adverse Reactions: Allergies Allergy/AdvReac Type Severity Reaction Status Date / Time No Known Allergies Allergy Verified 11/13/19 11:04 - Home Medications Home Medications: Ambulatory Orders Levothyroxine [Synthroid -] 25 mcg PO DAILY 07/15/19 Tamsulosin HCl [Flomax] 0.4 mg PO DAILY 07/15/19 levETIRAcetam [Keppra -] 500 mg PO BID 07/15/19 Cholecalciferol (Vitamin D3) [Vitamin D -] 800 unit PO DAILY tab 08/26/19 Apixaban [Eliquis -] 2.5 mg PO BID #60 tablet 08/31/19 Carvedilol [Coreg -] 25 mg PO BID 11/06/19 Omeprazole 20 mg PO DAILY 11/06/19 Rosuvastatin [Crestor -] 10 mg PO DAILY 11/06/19 Furosemide [Lasix -] 20 mg PO DAILY tablet 12/06/19 Mycophenolate Mofetil [Cellcept -] 500 mg PO BID tablet 12/06/19 predniSONE [Deltasone -] 60 mg PO DAILY tablet 12/06/19 Vital Signs: Vital Signs Temperature 97.6 F 12/08/19 05:00 Pulse Rate 65 12/08/19 10:00 Respiratory Rate 20 12/08/19 05:00 Blood Pressure 112/70 12/08/19 05:00 O2 Sat by Pulse Oximetry (%) 96 12/08/19 10:00 Constitutional: Yes: No Distress Neck: Yes: Supple Respiratory: Yes: Rales, Wheezes Gastrointestinal: Yes: Soft Cardiovascular: Yes: Pulse Irregular JVD: Yes Carotid Bruit: No Heart Sounds: Yes: S1, S2 Edema: Yes Edema: LLE: 1+, RLE: 1+ - Other Data Labs, Other Data: CBC, BMP 12/08/19 06:30 12/08/19 06:30 Troponin, BNP 12/07/19 14:00 Troponin I < 0.02 Troponin, BNP 12/07/19 14:00 Troponin I < 0.02 Imaging - Results Chest X-ray: Report Reviewed EKG: Image Reviewed Problem List - Problems (1) Afib Code(s): I48.91 - UNSPECIFIED ATRIAL FIBRILLATION (2) CAD (coronary artery disease) Code(s): I25.10 - ATHSCL HEART DISEASE OF [place] CORONARY ARTERY W/O ANG PCTRS (3) CHF (congestive heart failure) Code(s): I50.9 - HEART FAILURE, UNSPECIFIED Assessment/Plan 79 year old male with a pmhx of anemia, diastolic chf, afib on apixaban, cad s/p pci, htn, hld, cva, ckd, hypothyroidism, and bullous pemphigoid presenting with weakness. CXR cardiomegaly, vascular congestion EKG: afib with VR 60bpm, anterolateral infarct Echocardiogram LVEF 50-55%, no significant valve disease. 1) CAD on apixaban for afib and not on aspirin due to degree of anemia as per cardiology in the past NST 2019 no ischemia Normal LVEF Statin Beta brynn 2) Afib Rate controlled on carvedilol On low dose apixaban given age and renal function 3) Acute on chronic diastolic chf Patient on abx and prednisone as per primary team. Exam today with some congestion, minimal exp wheeze, and LE edema. Got 1 liter IVF's last night. Agree with dose of furosemide 40mg IV today. Would decide tomorrow based on exam given rising bun/cr if needs to continue IV versus changing to PO dosing. Would consider changing carvedilol to metoprolol as might give less blood pressure affect given lower bp yesterday.
--- NOTE | 2019-12-08 14:59 | PN ---
Progress Note (short form) - Note Progress Note: Resting in NAD. No CP. Reports orthopnea. No acute events overnight. Intake & Output 12/05/19 12/06/19 12/07/19 12/08/19 23:59 23:59 23:59 23:59 Intake Total 100 1640 1920 10 Output Total 300 1300 100 Balance -437 958 1445 -90 Weight 232 lb 234 lb 4 oz 244 lb Last Vital Signs Temp Pulse Resp BP Pulse Ox 97.9 F 109 H 20 97/58 L 96 12/08/19 14:00 12/08/19 14:00 12/08/19 14:00 12/08/19 14:00 12/08/19 10:00 Active Medications Albuterol/Ipratropium (Duoneb -) 1 amp NEB Q4H PRN PRN Reason: SHORT OF BREATH/WHEEZING Last Admin: 12/08/19 02:38 Dose: 1 amp Documented by: Carvedilol (Coreg -) 25 mg PO BID [facility] Last Admin: 12/08/19 10:45 Dose: 25 mg Documented by: Furosemide (Lasix Injection -) 40 mg IVPUSH DAILY [facility] Last Admin: 12/08/19 12:21 Dose: 40 mg Documented by: Ceftriaxone Sodium 1 gm/ (Dextrose) 50 mls @ 100 mls/hr IVPB DAILY [facility]; Protocol Last Admin: 12/08/19 10:58 Dose: 100 mls/hr Documented by: Levetiracetam (Keppra -) 500 mg PO BID [facility] Last Admin: 12/08/19 10:45 Dose: 500 mg Documented by: Levothyroxine Sodium (Synthroid -) 25 mcg PO ACBK [facility] Last Admin: 12/08/19 06:18 Dose: 25 mcg Documented by: Mycophenolate Mofetil (Cellcept -) 500 mg PO BID [facility] Last Admin: 12/08/19 10:48 Dose: 500 mg Documented by: Pantoprazole Sodium (Protonix -) 40 mg PO ACBK [facility] Last Admin: 12/08/19 06:17 Dose: 40 mg Documented by: Prednisone (Deltasone -) 50 mg PO DAILY [facility] Rosuvastatin Calcium (Crestor -) 10 mg PO HS [facility] Last Admin: 12/07/19 22:05 Dose: 10 mg Documented by: Tamsulosin HCl (Flomax -) 0.4 mg PO 0830 [facility] Last Admin: 12/08/19 10:44 Dose: 0.4 mg Documented by: Constitutional: Yes: No Distress Eyes: Yes: Conjunctiva Clear, EOM Intact HENT: Yes: Atraumatic, Normocephalic Neck: Yes: Supple, Trachea Midline Cardiovascular: Yes: Pulse Irregular Respiratory: Yes: bibasilar rales. No: Wheezes ...Inspection: Yes: WNL ...Clubbing: No Gastrointestinal: Yes: Normal Bowel Sounds, Soft Renal/: Yes: WNL Musculoskeletal: Yes: WNL Extremities: Yes: WNL Edema: Yes Peripheral Pulses WNL: Yes Integumentary: Yes: WNL Neurological: Yes: Alert Psychiatric: Yes: Alert Labs: Laboratory Results - last 24 hr 12/07/19 12/08/19 12/08/19 19:10 00:49 06:30 WBC 4.3 3.1 L RBC 2.75 L 2.66 L Hgb 7.9 L 7.6 L Hct 27.0 L 25.2 L MCV 98.0 H 94.6 MCH 28.8 28.6 MCHC 29.4 L 30.2 L RDW 18.3 H 17.6 H Plt Count 87 L D 76 L MPV 9.5 D 7.9 D Absolute Neuts (auto) 4.1 2.9 Neutrophils % 96.3 H 90.6 H Neutrophils % (Manual) 96.9 H Band Neutrophils % 0.0 Lymphocytes % 2.7 L D 6.1 L D Lymphocytes % (Manual) 3.1 L D Monocytes % 0.9 L D 3.3 L D Monocytes % (Manual) 0 L D Eosinophils % 0.0 D 0.0 Eosinophils % (Manual) 0.0 D Basophils % 0.1 0.0 Basophils % (Manual) 0.0 Myelocytes % (Man) 0 Promyelocytes % (Man) 0 Blast Cells % (Manual) 0 Nucleated RBC % 0 0 Metamyelocytes 0 D Hypochromia 1+ Platelet Estimate Decreased Platelet Comment Present Polychromasia 2+ Poikilocytosis 2+ Anisocytosis 2+ Microcytosis 2+ Macrocytosis 1+ Tear Drop Cells 1+ Ovalocytes 1+ Kayla Cells 1+ Sodium 140 Potassium 5.9 H Chloride 111 H Carbon Dioxide 16 L Anion Gap 12 BUN 111.8 H* Creatinine 2.7 H Est GFR (CKD-EPI)AfAm 24.51 Est GFR (CKD-EPI)NonAf 21.15 Random Glucose 226 H Calcium 8.0 L Phosphorus Magnesium Total Bilirubin 0.3 AST 23 ALT 27 Alkaline Phosphatase 110 Total Protein 6.0 L Albumin 2.7 L 12/08/19 06:30 WBC RBC Hgb Hct MCV MCH MCHC RDW Plt Count MPV Absolute Neuts (auto) Neutrophils % Neutrophils % (Manual) Band Neutrophils % Lymphocytes % Lymphocytes % (Manual) Monocytes % Monocytes % (Manual) Eosinophils % Eosinophils % (Manual) Basophils % Basophils % (Manual) Myelocytes % (Man) Promyelocytes % (Man) Blast Cells % (Manual) Nucleated RBC % Metamyelocytes Hypochromia Platelet Estimate Platelet Comment Polychromasia Poikilocytosis Anisocytosis Microcytosis Macrocytosis Tear Drop Cells Ovalocytes Kayla Cells Sodium 142 Potassium 5.4 H Chloride 111 H Carbon Dioxide 20 L Anion Gap 11 BUN 115.9 H* Creatinine 2.8 H Est GFR (CKD-EPI)AfAm 23.46 Est GFR (CKD-EPI)NonAf 20.24 Random Glucose 160 H Calcium 8.5 Phosphorus 5.8 H Magnesium 2.2 Total Bilirubin 0.5 AST 16 ALT 28 Alkaline Phosphatase 113 Total Protein 6.1 L Albumin 2.8 L Imaging - Results Chest X-ray: Report Reviewed, Image Reviewed Problem List - Problems (1) Bullous pemphigoid Code(s): L12.0 - BULLOUS PEMPHIGOID (2) Generalized weakness Code(s): R53.1 - WEAKNESS (3) Unable to ambulate Code(s): R26.2 - DIFFICULTY IN WALKING, NOT ELSEWHERE CLASSIFIED (4) Blisters of multiple sites Code(s): R23.8 - OTHER SKIN CHANGES (5) Abnormal liver enzymes Code(s): R74.8 - ABNORMAL LEVELS OF OTHER SERUM ENZYMES (6) Wound of foot Code(s): S91.309A - UNSPECIFIED OPEN WOUND, UNSPECIFIED FOOT, INITIAL ENCOUNTER (7) Afib Code(s): I48.91 - UNSPECIFIED ATRIAL FIBRILLATION (8) Anemia Code(s): D64.9 - ANEMIA, UNSPECIFIED Qualifiers: Iron deficiency anemia type: chronic blood loss (9) BPH (benign prostatic hyperplasia) Code(s): N40.0 - BENIGN PROSTATIC HYPERPLASIA WITHOUT LOWER URINRY TRACT SYMP (10) CAD (coronary artery disease) Code(s): I25.10 - ATHSCL HEART DISEASE OF [place] CORONARY ARTERY W/O ANG PCTRS (11) CHF (congestive heart failure) Code(s): I50.9 - HEART FAILURE, UNSPECIFIED (12) CKD (chronic kidney disease) Code(s): N18.9 - CHRONIC KIDNEY DISEASE, UNSPECIFIED (13) Diabetes mellitus Code(s): E11.9 - TYPE 2 DIABETES MELLITUS WITHOUT COMPLICATIONS (14) Diastolic CHF Code(s): I50.30 - UNSPECIFIED DIASTOLIC (CONGESTIVE) HEART FAILURE (15) Gastritis Code(s): K29.70 - GASTRITIS, UNSPECIFIED, WITHOUT BLEEDING (16) HTN (hypertension) Code(s): I10 - ESSENTIAL (PRIMARY) HYPERTENSION (17) History of colon cancer Code(s): Z85.038 - PERSONAL HISTORY OF MALIGNANT NEOPLASM OF LARGE INTESTINE (18) History of duodenal ulcer Code(s): Z87.19 - PERSONAL HISTORY OF OTHER DISEASES OF THE DIGESTIVE SYSTEM (19) Hyperlipidemia Code(s): E78.5 - HYPERLIPIDEMIA, UNSPECIFIED (20) Hypothyroid Code(s): E03.9 - HYPOTHYROIDISM, UNSPECIFIED (21) Paroxysmal atrial fibrillation Code(s): I48.0 - PAROXYSMAL ATRIAL FIBRILLATION (22) Peripheral arterial disease Code(s): I73.9 - PERIPHERAL VASCULAR DISEASE, UNSPECIFIED (23) Peripheral vascular disease Code(s): I73.9 - PERIPHERAL VASCULAR DISEASE, UNSPECIFIED (24) Pulmonary hypertension Code(s): I27.2 - OTHER SECONDARY PULMONARY HYPERTENSION * DO NOT USE * (25) Seizure Code(s): R56.9 - UNSPECIFIED CONVULSIONS (26) Seizure disorder Code(s): G40.909 - EPILEPSY, UNSP, NOT INTRACTABLE, WITHOUT STATUS EPILEPTICUS Assessment/Plan Lasix Do not suspect PNA Monitor off ABX Supplemental O2 as needed Daily weights Monitor I & O Dr Contreras Problem List - Problems (1) Bullous pemphigoid Code(s): L12.0 - BULLOUS PEMPHIGOID (2) Generalized weakness Code(s): R53.1 - WEAKNESS (3) Unable to ambulate Code(s): R26.2 - DIFFICULTY IN WALKING, NOT ELSEWHERE CLASSIFIED (4) Blisters of multiple sites Code(s): R23.8 - OTHER SKIN CHANGES (5) Abnormal liver enzymes Code(s): R74.8 - ABNORMAL LEVELS OF OTHER SERUM ENZYMES (6) Wound of foot Code(s): S91.309A - UNSPECIFIED OPEN WOUND, UNSPECIFIED FOOT, INITIAL ENCOUNTER (7) Afib Code(s): I48.91 - UNSPECIFIED ATRIAL FIBRILLATION (8) Anemia Code(s): D64.9 - ANEMIA, UNSPECIFIED Qualifiers: Iron deficiency anemia type: chronic blood loss (9) BPH (benign prostatic hyperplasia) Code(s): N40.0 - BENIGN PROSTATIC HYPERPLASIA WITHOUT LOWER URINRY TRACT SYMP (10) CAD (coronary artery disease) Code(s): I25.10 - ATHSCL HEART DISEASE OF [place] CORONARY ARTERY W/O ANG PCTRS (11) CHF (congestive heart failure) Code(s): I50.9 - HEART FAILURE, UNSPECIFIED (12) CKD (chronic kidney disease) Code(s): N18.9 - CHRONIC KIDNEY DISEASE, UNSPECIFIED (13) Diabetes mellitus Code(s): E11.9 - TYPE 2 DIABETES MELLITUS WITHOUT COMPLICATIONS (14) Diastolic CHF Code(s): I50.30 - UNSPECIFIED DIASTOLIC (CONGESTIVE) HEART FAILURE (15) Gastritis Code(s): K29.70 - GASTRITIS, UNSPECIFIED, WITHOUT BLEEDING (16) HTN (hypertension) Code(s): I10 - ESSENTIAL (PRIMARY) HYPERTENSION (17) History of colon cancer Code(s): Z85.038 - PERSONAL HISTORY OF MALIGNANT NEOPLASM OF LARGE INTESTINE (18) History of duodenal ulcer Code(s): Z87.19 - PERSONAL HISTORY OF OTHER DISEASES OF THE DIGESTIVE SYSTEM (19) Hyperlipidemia Code(s): E78.5 - HYPERLIPIDEMIA, UNSPECIFIED (20) Hypothyroid Code(s): E03.9 - HYPOTHYROIDISM, UNSPECIFIED (21) Paroxysmal atrial fibrillation Code(s): I48.0 - PAROXYSMAL ATRIAL FIBRILLATION (22) Peripheral arterial disease Code(s): I73.9 - PERIPHERAL VASCULAR DISEASE, UNSPECIFIED (23) Peripheral vascular disease Code(s): I73.9 - PERIPHERAL VASCULAR DISEASE, UNSPECIFIED (24) Pulmonary hypertension Code(s): I27.2 - OTHER SECONDARY PULMONARY HYPERTENSION * DO NOT USE * (25) Seizure Code(s): R56.9 - UNSPECIFIED CONVULSIONS (26) Seizure disorder Code(s): G40.909 - EPILEPSY, UNSP, NOT INTRACTABLE, WITHOUT STATUS EPILEPTICUS
[2019-12-08] MEDS: ROSUVASTATIN CA 10 MG TABLET (FP) PO SCH (21:55)
--- NOTE | 2019-12-09 00:01 | PN ---
Progress Note, Physician History of Present Illness: CONFUSED +BC GPCCL - Current Medication List Current Medications: Active Medications Albuterol/Ipratropium (Duoneb -) 1 amp NEB Q4H PRN PRN Reason: SHORT OF BREATH/WHEEZING Last Admin: 12/08/19 02:38 Dose: 1 amp Documented by: Carvedilol (Coreg -) 25 mg PO BID [facility] Last Admin: 12/08/19 21:55 Dose: Not Given Documented by: Furosemide (Lasix Injection -) 40 mg IVPUSH DAILY [facility] Last Admin: 12/08/19 12:21 Dose: 40 mg Documented by: Ceftriaxone Sodium 1 gm/ (Dextrose) 50 mls @ 100 mls/hr IVPB DAILY [facility]; Protocol Last Admin: 12/08/19 10:58 Dose: 100 mls/hr Documented by: Levetiracetam (Keppra -) 500 mg PO BID [facility] Last Admin: 12/08/19 21:55 Dose: 500 mg Documented by: Levothyroxine Sodium (Synthroid -) 25 mcg PO ACBK [facility] Last Admin: 12/08/19 06:18 Dose: 25 mcg Documented by: Mycophenolate Mofetil (Cellcept -) 500 mg PO BID [facility] Last Admin: 12/08/19 21:55 Dose: 500 mg Documented by: Pantoprazole Sodium (Protonix -) 40 mg PO ACBK [facility] Last Admin: 12/08/19 06:17 Dose: 40 mg Documented by: Prednisone (Deltasone -) 50 mg PO DAILY [facility] Rosuvastatin Calcium (Crestor -) 10 mg PO HS [facility] Last Admin: 12/08/19 21:55 Dose: 10 mg Documented by: Tamsulosin HCl (Flomax -) 0.4 mg PO 0830 [facility] Last Admin: 12/08/19 10:44 Dose: 0.4 mg Documented by: - Objective Vital Signs: Vital Signs Temperature 98.2 F 12/08/19 22:00 Pulse Rate 69 12/08/19 22:00 Respiratory Rate 20 12/08/19 22:00 Blood Pressure 93/59 L 12/08/19 22:00 O2 Sat by Pulse Oximetry (%) 96 12/08/19 21:00 Constitutional: Yes: No Distress Eyes: Yes: Conjunctiva Clear Cardiovascular: Yes: Regular Rate and Rhythm, S1, S2 Respiratory: Yes: CTA Bilaterally Extremities: Yes: Other (+PLANTAR ULCER) Integumentary: Yes: Other (+ GENERALIZED ULCERATIVE LESIONS) Labs: CBC, BMP 12/08/19 06:30 12/08/19 06:30 Assessment/Plan + BLOOD C/S STAPH SP ? SKIN SOURCE AZOTEMIA PLANTAR ULCER BULOUS PEMPHIGOID AWAIT BC VANCOMYCIN X 1 DOSE
[2019-12-09] MEDS ORDERED: FUROSEMIDE 40 MG/4 ML INJECTABLE VIAL IVPUSH ONE (06:10)
[2019-12-09] MEDS ORDERED: PIPERACILLIN/TAZOB 2.25 GM 2.25 GM in DEXTROSE 5%-WATER - 50 ML IVPB ONE (06:12)
[2019-12-09] MEDS ORDERED: VANCOMYCIN 1 GRAM (PRE-DOCKED) 1,000 MG/250 ML BAG IVPB ONE (06:15)
--- NOTE | 2019-12-09 06:37 | RAPID ---
Physical Examination Vital Signs: Vital Signs Temperature 98.7 F 12/09/19 02:00 Pulse Rate 72 12/09/19 02:00 Respiratory Rate 19 12/09/19 02:00 Blood Pressure 110/62 12/09/19 02:00 O2 Sat by Pulse Oximetry (%) 96 12/08/19 21:00 Hypoxia to 60s Findings/Remarks: Rapid Response called for nonresponsiveness. Pt had just been drinking water, spat it all out. Vitals showed pt was susy, SBP ~140s, pulse ox ~62. At baseline, pt speaks, asked for water to drink Constitutional: Yes: Obese, Other (not responsive) Eyes: Yes: Conjunctiva Clear HENT: Yes: Atraumatic, Normocephalic Cardiovascular: Yes: Regular Rate and Rhythm, Bradycardia Respiratory: Yes: Other (minimal respiratory effort. Faint chest rise) Gastrointestinal: Yes: Soft Peripheral Pulses: Left Radial: 1+, Right Radial: 1+ Neurological: No: Alert (Not responding to loud questioning, sternal rub, or painful stimuli to the extremities) Labs: CBC, BMP 12/08/19 06:30 12/08/19 06:30 Rapid Response - Rapid Response Assessment: AMS, unresponsiveness --likely 2/2 aspiration - intubated by Anesthesiologist d/t unresponsiveness - transfer to ICU - [facility] to r/o intracranial cause for AMS - CT chest - EKG - labs: cbc, cmp, lactic, troponin, abg Lost pulse during transport - sp atropine, epinephrine; acheived ROSC
[2019-12-09] MEDS ORDERED: MIDAZOLAM HCL 2 MG/2 ML SINGLE DOSE VIAL IVPUSH ONE ×3 (06:44→12:00)
[2019-12-09] MEDS ORDERED: MIDAZOLAM IN 0.9 % SOD.CHLORID 1 MG/1 ML PLAST..BAG ONE ×2 (07:11→09:48)
[2019-12-09] MEDS ORDERED: VASOPRESSIN 20 UNITS/ML VIAL IV ONE (07:17)
[2019-12-09] MEDS: VASOPRESSIN 40 UNITS in SODIUM CHLORIDE 98 ML IVPB SCH (07:30)
--- NOTE | 2019-12-09 07:43 | CONSULT ---
Consultation: REQUESTING PROVIDER: CONSULT REQUEST: We have been asked to medically evaluate this patient for icu admission. HISTORY OF PRESENT ILLNESS: Per hand off. 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 In ICU code 99 called for loss of pulse/PEA. He is s/p 1 round of epi and time to ROSC was 45 seconds/less than 1 minute. Family not answering phone calls ( Ms. Jenkins). Pt cont. to desaturate into the 50's% and MAP in the 20s. Saturation returned with oral suctioning. Vasopressin started. Code 99 initiated again. Pt PEA. ROSC in 45 seconds/less than 1 minute. Family not answering phone calls ( Ms. Jenkins). REVIEW OF SYSTEMS: CONSTITUTIONAL: Absent: fever, chills, diaphoresis, generalized weakness, malaise, loss of appetite, weight change HEENT: Absent: rhinorrhea, nasal congestion, throat pain, throat swelling, difficulty swallowing, mouth swelling, ear pain, eye pain, visual changes CARDIOVASCULAR: Absent: chest pain, syncope, palpitations, irregular heart rate, light headedness, peripheral edema RESPIRATORY: Absent: cough, shortness of breath, dyspnea with exertion, orthopnea, wheezing, stridor, hemoptysis GASTROINTESTINAL: Absent: abdominal pain, abdominal distension, nausea, vomiting, diarrhea, constipation, melena, hematochezia GENITOURINARY: Absent: dysuria, frequency, urgency, hesitancy, hematuria, flank pain, genital pain MUSCULOSKELETAL: Absent: myalgia, arthralgia, joint swelling, back pain, neck pain SKIN: Absent: rash, itching, pallor HEMATOLOGIC/IMMUNOLOGIC: Absent: easy bleeding, easy bruising, lymphadenopathy, frequent infections ENDOCRINE: Absent: unexplained weight gain, unexplained weight loss, heat intolerance, cold intolerance NEUROLOGIC: Absent: headache, focal weakness or paresthesias, dizziness, unsteady gait, seizure, mental status changes, bladder or bowel incontinence PSYCHIATRIC: Absent: anxiety, depression, suicidal or homicidal ideation, hallucinations. PHYSICAL EXAMINATION Vital Signs - 24 hr 12/08/19 12/08/19 12/08/19 09:00 10:00 14:00 Temperature 97.4 F L 97.9 F Pulse Rate 70 109 H Respiratory 20 16 20 Rate Blood Pressure 120/70 97/58 L O2 Sat by Pulse 96 96 Oximetry (%) 12/08/19 12/08/19 12/08/19 18:00 21:00 22:00 Temperature 97.2 F L 98.2 F Pulse Rate 64 69 Respiratory 20 20 20 Rate Blood Pressure 102/64 93/59 L O2 Sat by Pulse 96 Oximetry (%) 12/09/19 12/09/19 02:00 06:55 Temperature 98.7 F Pulse Rate 72 Respiratory 19 20 Rate Blood Pressure 110/62 O2 Sat by Pulse 95 Oximetry (%) GENERAL: Awake, alert, and fully oriented, in no acute distress. HEAD: Normal with no signs of trauma. EYES: Pupils equal, round and reactive to light, extraocular movements intact, sclera anicteric, conjunctiva clear. No lid lag. EARS, NOSE, THROAT: Ears normal, nares patent, oropharynx clear without exudates. Moist mucous membranes. NECK: Normal range of motion, supple without lymphadenopathy, JVD, or masses. LUNGS: Breath sounds equal, clear to auscultation bilaterally. No wheezes, and no crackles. No accessory muscle use. HEART: Regular rate and rhythm, normal S1 and S2 without murmur, rub or gallop. ABDOMEN: Soft, nontender, not distended, normoactive bowel sounds, no guarding, no rebound, no masses. No hepatomegaly or splenomegaly. MUSCULOSKELETAL: Normal range of motion at all joints. No bony deformities or tenderness. No CVA tenderness. UPPER EXTREMITIES: 2+ pulses, warm, well-perfused. No cyanosis. No clubbing. Cap refill <2 seconds. No peripheral edema. LOWER EXTREMITIES: 2+ pulses, warm, well-perfused. No calf tenderness. No peripheral edema. NEUROLOGICAL: Cranial nerves II-XII intact. Normal speech. Normal gait. PSYCHIATRIC: Cooperative. Good eye contact. Appropriate mood and affect. SKIN: Warm, dry, normal turgor, no rashes or lesions noted. Laboratory Results - last 24 hr 12/09/19 06:03 POC Glucometer 239 Active Medications Generic Name Dose Route Start Last Admin Trade Name Freq PRN Reason Stop Dose Admin Albuterol/Ipratropium 1 amp 12/07/19 13:25 12/08/19 02:38 Duoneb - NEB 1 amp Q4H PRN Administration SHORT OF BREATH/WHEEZING Carvedilol 25 mg 12/07/19 22:00 12/08/19 21:55 Coreg - PO Not Given BID MICHAEL Furosemide 40 mg 12/08/19 12:00 12/08/19 12:21 Lasix Injection - IVPUSH 40 mg DAILY MICHAEL Administration Ceftriaxone Sodium 1 gm/ 50 mls @ 100 mls/hr 12/08/19 10:00 12/08/19 10:58 Dextrose IVPB 100 mls/hr DAILY MICHAEL Administration Protocol Vancomycin HCl 1,000 mg in 250 mls @ 166.667 mls/hr 12/09/19 06:15 Vancomycin (Pre-Docked) IVPB 12/09/19 07:44 ONCE ONE Protocol Midazolam HCl 100 mg/ Sodium 100 mls @ 1 mls/hr 12/09/19 06:45 Chloride IVPB TITR MICHAEL Protocol 1 MG/HR Vasopressin 40 units/ Sodium 100 mls @ 5 mls/hr 12/09/19 07:30 Chloride IVPB ASDIR MICHAEL Protocol 2 UNITS/HR Levetiracetam 500 mg 12/07/19 22:00 12/08/19 21:55 Keppra - PO 500 mg BID MICHAEL Administration Levothyroxine Sodium 25 mcg 12/08/19 07:00 12/08/19 06:18 Synthroid - PO 25 mcg ACBK MICHAEL Administration Mycophenolate Mofetil 500 mg 12/07/19 22:00 12/08/19 21:55 Cellcept - PO 500 mg BID MICHAEL Administration Pantoprazole Sodium 40 mg 12/08/19 07:00 12/08/19 06:17 Protonix - PO 40 mg ACBK MICHAEL Administration Prednisone 50 mg 12/08/19 13:25 Deltasone - PO DAILY MICHAEL Rosuvastatin Calcium 10 mg 12/07/19 22:00 12/08/19 21:55 Crestor - PO 10 mg HS MICHAEL Administration Tamsulosin HCl 0.4 mg 12/08/19 08:30 12/08/19 10:44 Flomax - PO 0.4 mg 0830 MICHAEL Administration ASSESSMENT/PLAN: 79 y/o male PMH dCHF, afib, CAD s/p PCI, HTN, seziure d/o, CVA with RIGHT sided residual deficit, CKD, hypothyroidism, and bullous pemphigoid c/o X and admitted for X. 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 He is now s/p cardiopulmonary arrest demonstrating PEA x2 (ROSC >1 min for both) in the ICU 2/2 acute hypoxic respiratory failure. # Neuro Intubated and sedated # CVS Norepi 5 Vaso 6 # Pulm Covid NEGATIVE 12/02 and repeat pending ARDS, aspiration PNA 26/450/100%/12 Taper steroids # ID Rocephin, vanc, zosyn F/u sputum cx # Renal CKD Cr 2.8 (baseline 2.1) UO 100 cc # TLD RIGHT IJ 12/08 ETT 12/07 # FEN Hold Cont. to monitor. Hyperphosphatemia 12/07. Hyperkalemia 5.4 on 12/07 NPO # PPX Protonix 40 mg IV QD Heparin # Disposition ICU NOK/, Mandy Jenkins, is to be contacted but works after 8pm and would like son, Cj Jenkins, to be contacted: . Full code Dispo: We will continue to follow the patient. Thank you for this consultative opportunity, Dr. Packer Visit type - Emergency Visit Emergency Visit: No - New Patient This patient is new to me today: Yes Date on this admission: 12/09/19 - Critical Care Critical Care patient: Yes Total Critical Care Time (in minutes): 35 Critical Care Statement: The care of this patient involved high complexity decision making to prevent further life threatening deterioration of the patient's condition and/or to evaluate & treat vital organ system(s) failure or risk of failure. ATTENDING PHYSICIAN STATEMENT I saw and evaluated the patient. I reviewed the resident's note and discussed the case with the resident. I agree with the resident's findings and plan as documented. SUBJECTIVE: OBJECTIVE: ASSESSMENT AND PLAN:
[2019-12-09] MEDS ORDERED: SODIUM BICARBONATE 8.4% 50 MEQ/50 ML DISP.SYRIN IVPUSH ONE (07:50)
[2019-12-09] MEDS ORDERED: INSULIN (NOVOLOG) ASPART 100 UNITS/ML 10ML VIAL SQ ONE (08:09)
[2019-12-09] MEDS ORDERED: PIPERACILLIN/TAZOBACTAM 2.25 GM VIAL IVPB ONE ×2 (08:25→17:13)
[2019-12-09] MEDS ORDERED: DEXTROSE 5%-WATER - 50 ML IVPB ONE ×2 (08:25→17:13)
[2019-12-09] MEDS ORDERED: NOREPINEPHRINE BITARTRATE 4 MG/4 ML ML IV ONE (08:31)
--- NOTE | 2019-12-09 08:42 | PROC ---
Central Line Insertion Indication: CVP Monitoring, Poor Venous Access, Vasopressor Risks and Benefits Explained: No (crash line) Consent on Chart: No (crash line) Central Line: Triple Lumen Catheter Anesthesia: 1% Lidocaine Sterile Technique: Yes Ultrasound Guided Assistance: Yes Position: Right Internal Jugular Post Insertion: Yes: Bilateral Breath Sounds, Bilateral Chest Expansion, Chest X-Ray Ordered Sterile Dressing Applied: Yes Remarks: right IJ CVC placed in the patient using implied consent. Patient had a declining BP despite maximum peripheral pressors. ICU team attempted to reach patient's NOK several times without answer.
[2019-12-09] MEDS: LEVOTHYROXINE NA 25 MCG TABLET (FP) PO SCH (08:54)
[2019-12-09] MEDS: NOREPINEPHRINE D5W PREMIX 16,000 MCG/500 ML BAG IVPB SCH (08:56)
[2019-12-09] MEDS: TAMSULOSIN HCL 0.4 MG CAP PO SCH (08:56)
[2019-12-09 09:04] LABS: HEMATOCRIT 24.1 % (35.4-49); HEMOGLOBIN 7.2 GM/dL (11.7-16.9); LYMPH % 3.4 % (8-40); MCH 28.7 pg (25.7-33.7); MCHC 29.7 g/dl (32.0-35.9); MEAN CELL VOLUME 96.6 fl (80-96); MEAN PLT VOLUME 8.6 fl (7.5-11.1); MONO % 4.3 % (3.8-10.2); NEUT % 92.3 % (42.8-82.8); PLATELET COUNT 100 K/MM3 (134-434); RBC 2.49 M/mm3 (4.00-5.60); WHITE BLOOD COUNT 6.9 K/mm3 (4.0-10.0)
[2019-12-09 09:06] LABS: ARTERIAL BLD GAS O2 SATURATION 99.3 mmHg (95-98); ARTERIAL BLOOD GAS BASE EXCESS -12.2 mmol/L (-2-2); ARTERIAL BLOOD GAS PO2 246.1 mmHg (80-100)
[2019-12-09 09:09] LABS: VENT MODE AC; VENT RATE 20
[2019-12-09 09:10] LABS: ARTERIAL BLOOD GAS pH 7.124 (7.350-7.450)
[2019-12-09] MEDS ORDERED: DEXTROSE 50%-WATER - 25 GM/50 ML VIAL IVPUSH ONE ×2 (09:10→10:56)
[2019-12-09 09:33] LABS: ALBUMIN 2.4 g/dl (3.4-5.0); ALK PHOS 93 U/L (45-117); ANION GAP 12 MMOL/L (8-16); BILIRUBIN,TOTAL 0.4 mg/dL (0.2-1); CALCIUM 8.2 mg/dL (8.5-10.1); CHLORIDE 109 mmol/L (98-107); CO2 19 mmol/L (21-32); CREATININE 3.2 mg/dL (0.55-1.3); GLUCOSE,RANDOM 317 mg/dL (74-106); MAGNESIUM 2.1 mg/dL (1.8-2.4); PHOSPHOROUS 7.8 mg/dL (2.5-4.9); POTASSIUM 5.7 mmol/L (3.5-5.1); SGOT/AST 20 U/L (15-37); SGPT/ALT 24 U/L (13-61); SODIUM 140 mmol/L (136-145); TOT PROT 5.4 g/dl (6.4-8.2)
[2019-12-09 09:40] LABS: BLOOD UREA NITROGEN 117.3 mg/dL (7-18)
[2019-12-09] MEDS ORDERED: INSULIN REGULAR HUMAN 100 UNITS/ML *VIAL IVPUSH ONE ×2 (09:45→10:55)
[2019-12-09] MEDS: PANTOPRAZOLE SODIUM 40 MG VIAL IVPUSH SCH (09:52)
[2019-12-09] MEDS: levETIRAcetam 500 MG/5 ML INJECTION VIAL IVPB SCH ×2 (09:52→22:22)
[2019-12-09] MEDS: MIDAZOLAM 100 MG in SODIUM CHLORIDE 100 ML IVPB SCH (09:52)
[2019-12-09] MEDS: methylPREDNISolone NA SUCC 40 MG/1 ML VIAL IVPUSH SCH (09:52)
[2019-12-09] MEDS: CARVEDILOL 25 MG TABLET (FP) PO SCH ×2 (09:53→22:22)
[2019-12-09] MEDS: MYCOPHENOLATE MOFETIL 500 MG TABLET PO SCH ×2 (09:53→22:23)
[2019-12-09] MEDS: PIPERACILLIN/TAZOB 2.25 GM 2.25 GM in DEXTROSE 5%-WATER - 50 ML IVPB SCH ×2 (09:54→17:30)
[2019-12-09] MEDS ORDERED: PIPERACILLIN/TAZOB 2.25 GM 2.25 GM in DEXTROSE 5%-WATER - 50 ML IVPB SCH (10:00)
[2019-12-09 10:38] LABS: ANISOCYTOSIS 2+; MACROCYTOSIS 2+; OVALOCYTE 1+; PLATELET ESTIMATE DECREASED; ROULEAU 1+
[2019-12-09] MEDS ORDERED: CALCIUM GLUCONATE 10% - 1,000 MG/10 ML VIAL IVPB ONE (10:56)
--- NOTE | 2019-12-09 10:59 | PN ---
Progress Note, Physician History of Present Illness: Pt seen and examined at bedside. Pt had a cardiac arrest this morning and he is in the ICU. He is intubated. - Current Medication List Current Medications: Active Medications Albuterol/Ipratropium (Duoneb -) 1 amp NEB Q4H PRN PRN Reason: SHORT OF BREATH/WHEEZING Last Admin: 12/08/19 02:38 Dose: 1 amp Documented by: Carvedilol (Coreg -) 25 mg PO BID MICHAEL Last Admin: 12/09/19 09:53 Dose: Not Given Documented by: Furosemide (Lasix Injection -) 40 mg IVPUSH DAILY MICHAEL Last Admin: 12/08/19 12:21 Dose: 40 mg Documented by: Ceftriaxone Sodium 1 gm/ (Dextrose) 50 mls @ 100 mls/hr IVPB DAILY MICHAEL; Protocol Last Admin: 12/08/19 10:58 Dose: 100 mls/hr Documented by: Midazolam HCl 100 mg/ Sodium (Chloride) 100 mls @ 1 mls/hr IVPB TITR MICHAEL; Protocol Last Admin: 12/09/19 09:52 Dose: 1 mg/hr, 1 mls/hr Documented by: Vasopressin 40 units/ Sodium (Chloride) 100 mls @ 5 mls/hr IVPB ASDIR MICHAEL; Protocol Last Admin: 12/09/19 07:30 Dose: 6 units/hr, 15 mls/hr Documented by: Piperacillin Sod/Tazobactam (Sod 2.25 gm/ Dextrose) 50 mls @ 100 mls/hr IVPB Q8H-IV MICHAEL; Protocol Piperacillin Sod/Tazobactam (Sod 2.25 gm/ Dextrose) 50 mls @ 100 mls/hr IVPB Q8H-IV MICHAEL; Protocol Stop: 12/10/19 09:59 Last Admin: 12/09/19 09:54 Dose: Not Given Documented by: Norepinephrine Bitartrate (Levophed Bag) 16,000 mcg in 500 mls @ 9.375 mls/hr IVPB TITR MICHAEL; Protocol Last Admin: 12/09/19 08:56 Dose: 5 mcg/min, 9.375 mls/hr Documented by: Levetiracetam (Keppra Injection -) 500 mg IVPB BID MICHAEL Last Admin: 12/09/19 09:52 Dose: 500 mg Documented by: Levothyroxine Sodium (Synthroid Injection -) 20 mcg IVPUSH DAILY [facility] Methylprednisolone Sodium Succinate (Solu-Medrol -) 40 mg IVPUSH DAILY [facility] Last Admin: 12/09/19 09:52 Dose: 40 mg Documented by: Mycophenolate Mofetil (Cellcept -) 500 mg PO BID [facility] Last Admin: 12/09/19 09:53 Dose: Not Given Documented by: Pantoprazole Sodium (Protonix Iv) 40 mg IVPUSH DAILY [facility] Last Admin: 12/09/19 09:52 Dose: 40 mg Documented by: Rosuvastatin Calcium (Crestor -) 10 mg PO HS [facility] Last Admin: 12/08/19 21:55 Dose: 10 mg Documented by: Tamsulosin HCl (Flomax -) 0.4 mg PO 0830 [facility] Last Admin: 12/09/19 08:56 Dose: Not Given Documented by: - Objective Vital Signs: Vital Signs Temperature 98.7 F 12/09/19 02:00 Pulse Rate 82 12/09/19 08:57 Respiratory Rate 20 12/09/19 08:40 Blood Pressure 54/36 L 12/09/19 07:30 O2 Sat by Pulse Oximetry (%) 96 12/09/19 08:57 Constitutional: Yes: Calm Eyes: Yes: Conjunctiva Clear HENT: Yes: Atraumatic Neck: Yes: Supple Cardiovascular: Yes: S1, S2 Respiratory: Yes: Mechanically Ventilated Gastrointestinal: Yes: Soft, Distention Genitourinary: Yes: Incontinence Musculoskeletal: Yes: Muscle Weakness Edema: Yes Edema: LLE: 1+, RLE: 1+ Neurological: Yes: Lethargy Labs: CBC, BMP 12/09/19 08:15 12/09/19 08:15 - ....Imaging Chest X-ray: Report Reviewed Assessment/Plan Current Medications Generic Name Dose Route Start Last Admin Trade Name Freq PRN Reason Stop Dose Admin Albuterol/Ipratropium 1 amp 12/07/19 13:25 12/08/19 02:38 Duoneb - NEB 1 amp Q4H PRN Administration SHORT OF BREATH/WHEEZING Calcium Gluconate 1,000 mg 12/09/19 10:56 Calcium Gluconate 10% - IVPB 12/09/19 10:57 ONCE ONE Carvedilol 25 mg 12/07/19 22:00 12/09/19 09:53 Coreg - PO Not Given BID MICHAEL Dextrose 25 gm 12/09/19 10:56 D50w (Vial) - IVPUSH 12/09/19 10:57 NOW ONE Furosemide 40 mg 12/08/19 12:00 12/08/19 12:21 Lasix Injection - IVPUSH 40 mg DAILY MICHAEL Administration Ceftriaxone Sodium 1 gm/ 50 mls @ 100 mls/hr 12/08/19 10:00 12/08/19 10:58 Dextrose IVPB 100 mls/hr DAILY MICHAEL Administration Protocol Midazolam HCl 100 mg/ Sodium 100 mls @ 1 mls/hr 12/09/19 06:45 12/09/19 09:52 Chloride IVPB 1 mg/hr TITR MICHAEL 1 mls/hr Administration Protocol 1 MG/HR Vasopressin 40 units/ Sodium 100 mls @ 5 mls/hr 12/09/19 07:30 12/09/19 07:30 Chloride IVPB 6 units/hr ASDIR MICHAEL 15 mls/hr Administration Protocol 2 UNITS/HR Piperacillin Sod/Tazobactam 50 mls @ 100 mls/hr 12/09/19 10:00 Sod 2.25 gm/ Dextrose IVPB Q8H-IV MICHAEL Protocol Piperacillin Sod/Tazobactam 50 mls @ 100 mls/hr 12/09/19 10:00 12/09/19 09:54 Sod 2.25 gm/ Dextrose IVPB 12/10/19 09:59 Not Given Q8H-IV MICHAEL Protocol Norepinephrine Bitartrate 16,000 mcg in 500 mls @ 9.375 mls/hr 12/09/19 08:30 12/09/19 08:56 Levophed Bag IVPB 5 mcg/min TITR MICHAEL 9.375 mls/hr Administration Protocol 5 MCG/MIN Insulin Human Regular 10 units 12/09/19 10:55 Novolin R Vial *For Ivpush Or Iv Drip Only* IVPUSH 12/09/19 10:56 ONCE ONE Levetiracetam 500 mg 12/09/19 10:00 12/09/19 09:52 Keppra Injection - IVPB 500 mg BID MICHAEL Administration Levothyroxine Sodium 20 mcg 12/09/19 10:00 Synthroid Injection - IVPUSH DAILY [facility] Methylprednisolone Sodium Succinate 40 mg 12/09/19 10:00 12/09/19 09:52 Solu-Medrol - IVPUSH 40 mg DAILY MICHAEL Administration Mycophenolate Mofetil 500 mg 12/07/19 22:00 12/09/19 09:53 Cellcept - PO Not Given BID MICHAEL Pantoprazole Sodium 40 mg 12/09/19 10:00 12/09/19 09:52 Protonix Iv IVPUSH 40 mg DAILY MICHAEL Administration Rosuvastatin Calcium 10 mg 12/07/19 22:00 12/08/19 21:55 Crestor - PO 10 mg HS MICHAEL Administration Tamsulosin HCl 0.4 mg 12/08/19 08:30 12/09/19 08:56 Flomax - PO Not Given 0830 [facility] Impression 1. CKD 2. CHF 3. BPH 4. a. fib 5. CAD 6. epilepsy 7. proteinuria 8. anemia 9. foot ulcer 10. abd wall cellulitis 11. bullous pemphigoid 12. LETITIA 13. hyperkalemia 14. cardiac arrest 15. resp failure on vent 16. r/o aspiration Plan - vent support - treat potassium medically - pressors to map 65 - renal dose meds - cont abx - follow x-ray results - taper steroids - discussed with ICU team - cont ICU care - cont pt/rehab
--- NOTE | 2019-12-09 11:37 | EKG ---
Test Reason : Blood Pressure : / mmHG Vent. Rate : 094 BPM Atrial Rate : 068 BPM P-R Int : 000 ms QRS Dur : 100 ms QT Int : 388 ms P-R-T Axes : 000 129 -16 degrees QTc Int : 485 ms ATRIAL FIBRILLATION WITH PREMATURE VENTRICULAR OR ABERRANTLY CONDUCTED COMPLEXES RIGHT AXIS DEVIATION PULMONARY DISEASE PATTERN SEPTAL INFARCT (CITED ON OR BEFORE 05-NOV-2017) ABNORMAL ECG WHEN COMPARED WITH ECG OF 07-DEC-2019 13:29, VENT. RATE HAS INCREASED BY 34 BPM NONSPECIFIC T WAVE ABNORMALITY NOW EVIDENT IN INFERIOR LEADS Confirmed by MD Errol, Aston ([id number]) on 12/09/2019 11:36:35 AM Referred By: TOM Confirmed By:Aston Norton MD
--- NOTE | 2019-12-09 11:39 | PN ---
Teaching Attending Note Name of Resident: Galindo Alexandre ATTENDING PHYSICIAN STATEMENT I saw and evaluated the patient. I reviewed the resident's note and discussed the case with the resident. I agree with the resident's findings and plan as documented. SUBJECTIVE: Pt seen and examined in the ICU. s/p cardiopulmonary arrest now intubated on levophed and vasopressin gtts. Likely aspirated. OBJECTIVE: Vital Signs Period Temp Pulse Resp BP Sys/Hair Pulse Ox Last 24 Hr 97.2 F-98.7 F 54-109 18-20 54-148/36-71 95-96 Intake & Output 12/06/19 12/07/19 12/08/19 12/09/19 23:59 23:59 23:59 23:59 Intake Total 1640 1920 10 Output Total 1300 100 Balance 340 1920 -90 Weight 106.254 kg 110.677 kg Gen: intubated, sedated Heart: RRR Lung: decreased breath sounds at the bases Abd: softly distended, nontender Ext: no edema, multiple ulcers CBC, BMP 12/09/19 08:15 12/09/19 08:15 Active Medications Albuterol/Ipratropium (Duoneb -) 1 amp NEB Q4H PRN PRN Reason: SHORT OF BREATH/WHEEZING Last Admin: 12/08/19 02:38 Dose: 1 amp Documented by: Carvedilol (Coreg -) 25 mg PO BID [facility] Last Admin: 12/09/19 09:53 Dose: Not Given Documented by: Furosemide (Lasix Injection -) 40 mg IVPUSH DAILY [facility] Last Admin: 12/08/19 12:21 Dose: 40 mg Documented by: Heparin Sodium (Porcine) (Heparin -) 5,000 unit SQ TID MICHAEL Ceftriaxone Sodium 1 gm/ (Dextrose) 50 mls @ 100 mls/hr IVPB DAILY MICHAEL; Protocol Last Admin: 12/08/19 10:58 Dose: 100 mls/hr Documented by: Midazolam HCl 100 mg/ Sodium (Chloride) 100 mls @ 1 mls/hr IVPB TITR MICHAEL; Protocol Last Admin: 12/09/19 09:52 Dose: 1 mg/hr, 1 mls/hr Documented by: Vasopressin 40 units/ Sodium (Chloride) 100 mls @ 5 mls/hr IVPB ASDIR MICHAEL; Protocol Last Admin: 06/23/20 07:30 Dose: 6 units/hr, 15 mls/hr Documented by: Piperacillin Sod/Tazobactam (Sod 2.25 gm/ Dextrose) 50 mls @ 100 mls/hr IVPB Q8H-IV MICHAEL; Protocol Piperacillin Sod/Tazobactam (Sod 2.25 gm/ Dextrose) 50 mls @ 100 mls/hr IVPB Q8H-IV MICHAEL; Protocol Stop: 12/10/19 09:59 Last Admin: 12/09/19 09:54 Dose: Not Given Documented by: Norepinephrine Bitartrate (Levophed Bag) 16,000 mcg in 500 mls @ 9.375 mls/hr IVPB TITR MICHAEL; Protocol Last Admin: 12/09/19 08:56 Dose: 5 mcg/min, 9.375 mls/hr Documented by: Levetiracetam (Keppra Injection -) 500 mg IVPB BID [facility] Last Admin: 12/09/19 09:52 Dose: 500 mg Documented by: Levothyroxine Sodium (Synthroid Injection -) 20 mcg IVPUSH DAILY [facility] Methylprednisolone Sodium Succinate (Solu-Medrol -) 40 mg IVPUSH DAILY [facility] Last Admin: 12/09/19 09:52 Dose: 40 mg Documented by: Mycophenolate Mofetil (Cellcept -) 500 mg PO BID [facility] Last Admin: 12/09/19 09:53 Dose: Not Given Documented by: Pantoprazole Sodium (Protonix Iv) 40 mg IVPUSH DAILY [facility] Last Admin: 12/09/19 09:52 Dose: 40 mg Documented by: Rosuvastatin Calcium (Crestor -) 10 mg PO HS [facility] Last Admin: 12/08/19 21:55 Dose: 10 mg Documented by: Tamsulosin HCl (Flomax -) 0.4 mg PO 0830 [facility] Last Admin: 12/09/19 08:56 Dose: Not Given Documented by: ASSESSMENT AND PLAN: s/p Cardiopulmonary Arrest Acute Hypoxic and Hypercapneic Respiratory Failure Likely Aspiration Pneumonia Septic Shock Acute on Chronic Renal Failure Lactic Acidosis Bullous Pemphigoid CAD LV Diastolic Dysfunction Atrial Fibrillation Seizure Disorder h/o CVA Hypothyroidism Anemia Thrombocytopenia - IV antibiotics - f/u cultures, send sputum - IVF - monitor urine output, creatinine - trend lactate - titrate presors to maintain MAP >65 - OGT decompression - rate control - taper off steroids - sedate for vent synchrony - continue volume assist control - DVT/GI prophylaxis - ICU monitoring critical care time spent in reviewing chart, evaluating patient and formulating plan 35 min
[2019-12-09] MEDS: CEFTRIAXONE 1 GM in DEXTROSE 5%-WATER - 50 ML IVPB SCH (12:13)
[2019-12-09] MEDS: FUROSEMIDE 40 MG/4 ML INJECTABLE VIAL IVPUSH SCH (12:13)
[2019-12-09] MEDS ORDERED: PT OWN MED DRAWER 7, Y5N ONE ×2 (13:08→22:16)
[2019-12-09] MEDS: HEPARIN NA (PORCINE) 5,000 UNITS/ML 1ML VIAL SQ SCH ×2 (13:20→22:23)
[2019-12-09] MEDS: LEVOTHYROXINE SODIUM 100 MCG VIAL IVPUSH SCH (13:20)
--- NOTE | 2019-12-09 13:24 | PN ---
Progress Note, Physician Chief Complaint: s/p Cardiopulmonary Arrest Acute Hypoxic and Hypercapneic Respiratory Failure Likely Aspiration Pneumonia Septic Shock Acute on Chronic Renal Failure Lactic Acidosis Bullous Pemphigoid CAD LV Diastolic Dysfunction Atrial Fibrillation Seizure Disorder h/o CVA Hypothyroidism Anemia Thrombocytopenia - Current Medication List Current Medications: Active Medications Albuterol/Ipratropium (Duoneb -) 1 amp NEB Q4H PRN PRN Reason: SHORT OF BREATH/WHEEZING Last Admin: 12/08/19 02:38 Dose: 1 amp Documented by: Carvedilol (Coreg -) 25 mg PO BID MICHAEL Last Admin: 12/09/19 09:53 Dose: Not Given Documented by: Furosemide (Lasix Injection -) 40 mg IVPUSH DAILY MICHAEL Last Admin: 12/09/19 12:13 Dose: Not Given Documented by: Heparin Sodium (Porcine) (Heparin -) 5,000 unit SQ TID MICHAEL Last Admin: 12/09/19 13:20 Dose: 5,000 unit Documented by: Ceftriaxone Sodium 1 gm/ (Dextrose) 50 mls @ 100 mls/hr IVPB DAILY MICHAEL; Protocol Last Admin: 12/09/19 12:13 Dose: Not Given Documented by: Midazolam HCl 100 mg/ Sodium (Chloride) 100 mls @ 1 mls/hr IVPB TITR MICHAEL; Protocol Last Admin: 12/09/19 09:52 Dose: 1 mg/hr, 1 mls/hr Documented by: Vasopressin 40 units/ Sodium (Chloride) 100 mls @ 5 mls/hr IVPB ASDIR MICHAEL; Protocol Last Admin: 12/09/19 07:30 Dose: 6 units/hr, 15 mls/hr Documented by: Piperacillin Sod/Tazobactam (Sod 2.25 gm/ Dextrose) 50 mls @ 100 mls/hr IVPB Q8H-IV MICHAEL; Protocol Piperacillin Sod/Tazobactam (Sod 2.25 gm/ Dextrose) 50 mls @ 100 mls/hr IVPB Q8H-IV MICHAEL; Protocol Stop: 12/10/19 09:59 Last Admin: 12/09/19 09:54 Dose: Not Given Documented by: Norepinephrine Bitartrate (Levophed Bag) 16,000 mcg in 500 mls @ 9.375 mls/hr IVPB TITR MICHAEL; Protocol Last Admin: 12/09/19 08:56 Dose: 5 mcg/min, 9.375 mls/hr Documented by: Levetiracetam (Keppra Injection -) 500 mg IVPB BID [facility] Last Admin: 12/09/19 09:52 Dose: 500 mg Documented by: Levothyroxine Sodium (Synthroid Injection -) 20 mcg IVPUSH DAILY [facility] Last Admin: 12/09/19 13:20 Dose: 20 mcg Documented by: Methylprednisolone Sodium Succinate (Solu-Medrol -) 40 mg IVPUSH DAILY [facility] Last Admin: 12/09/19 09:52 Dose: 40 mg Documented by: Mycophenolate Mofetil (Cellcept -) 500 mg PO BID [facility] Last Admin: 12/09/19 09:53 Dose: Not Given Documented by: Pantoprazole Sodium (Protonix Iv) 40 mg IVPUSH DAILY [facility] Last Admin: 12/09/19 09:52 Dose: 40 mg Documented by: Rosuvastatin Calcium (Crestor -) 10 mg PO HS [facility] Last Admin: 12/08/19 21:55 Dose: 10 mg Documented by: Tamsulosin HCl (Flomax -) 0.4 mg PO 0830 [facility] Last Admin: 12/09/19 08:56 Dose: Not Given Documented by: - Objective Vital Signs: Vital Signs Temperature 97 F L 12/09/19 12:43 Pulse Rate 72 12/09/19 12:43 Respiratory Rate 20 12/09/19 12:43 Blood Pressure 124/89 12/09/19 12:43 O2 Sat by Pulse Oximetry (%) 95 12/09/19 12:09 Constitutional: Yes: Well Nourished, No Distress, Calm Cardiovascular: Yes: Regular Rate and Rhythm Respiratory: Yes: Regular, CTA Bilaterally, Mechanically Ventilated Gastrointestinal: Yes: Normal Bowel Sounds, Soft, Abdomen, Obese Genitourinary: Yes: [place] Present Edema: No Peripheral Pulses WNL: Yes Neurological: Yes: Other (sedated) Labs: CBC, BMP 12/09/19 08:15 12/09/19 08:15 Problem List - Problems (1) Acute respiratory failure Assessment/Plan: -Mech vent -Pulmonary consult -IV medrol -IV abx Problems reviewed: Yes Code(s): J96.00 - ACUTE RESPIRATORY FAILURE, UNSP W HYPOXIA OR HYPERCAPNIA (2) Bullous pemphigoid Assessment/Plan: -On cellcept Problems reviewed: Yes Code(s): L12.0 - BULLOUS PEMPHIGOID (3) Acute on chronic renal insufficiency Assessment/Plan: -Nephrology on board -monitor daily labs Problems reviewed: Yes Code(s): N28.9 - DISORDER OF KIDNEY AND URETER, UNSPECIFIED; N18.9 - CHRONIC KIDNEY DISEASE, UNSPECIFIED (4) Pneumonia Assessment/Plan: -Likely aspiration -CXR reviewed -CT chest when stable -Repeat COVID 19 PCR -IV abx -ID consult -IV medrol -Lactic acidosis noted Problems reviewed: Yes Code(s): J18.9 - PNEUMONIA, UNSPECIFIED ORGANISM Assessment/Plan See problem list
--- NOTE | 2019-12-09 14:44 | PN ---
Progress Note, Physician Chief Complaint: S/p cardiac arrest, intubated and on pressors in the ICU History of Present Illness: 79 year old male with a pmhx of anemia, diastolic chf, afib on apixaban, cad s/p pci, htn, hld, cva, ckd, hypothyroidism, and bullous pemphigoid presenting with weakness. CXR cardiomegaly, vascular congestion EKG: afib with VR 60bpm, anterolateral infarct Echocardiogram LVEF 50-55%, no significant valve disease. - Current Medication List Current Medications: Active Medications Albuterol/Ipratropium (Duoneb -) 1 amp NEB Q4H PRN PRN Reason: SHORT OF BREATH/WHEEZING Last Admin: 12/08/19 02:38 Dose: 1 amp Documented by: Carvedilol (Coreg -) 25 mg PO BID [facility]EL Last Admin: 12/09/19 09:53 Dose: Not Given Documented by: Furosemide (Lasix Injection -) 40 mg IVPUSH DAILY [facility] Last Admin: 12/09/19 12:13 Dose: Not Given Documented by: Heparin Sodium (Porcine) (Heparin -) 5,000 unit SQ TID MICHAEL Last Admin: 12/09/19 13:20 Dose: 5,000 unit Documented by: Ceftriaxone Sodium 1 gm/ (Dextrose) 50 mls @ 100 mls/hr IVPB DAILY MICHAEL; Protoc ol Last Admin: 12/09/19 12:13 Dose: Not Given Documented by: Midazolam HCl 100 mg/ Sodium (Chloride) 100 mls @ 1 mls/hr IVPB TITR [facility]HAEL; Protocol Last Admin: 12/09/19 09:52 Dose: 1 mg/hr, 1 mls/hr Documented by: Vasopressin 40 units/ Sodium (Chloride) 100 mls @ 5 mls/hr IVPB ASDIR [facility]HAEL; Protocol Last Admin: 12/09/19 07:30 Dose: 6 units/hr, 15 mls/hr Documented by: Piperacillin Sod/Tazobactam (Sod 2.25 gm/ Dextrose) 50 mls @ 100 mls/hr IVPB Q8H-IV MICHAEL; Protocol Piperacillin Sod/Tazobactam (Sod 2.25 gm/ Dextrose) 50 mls @ 100 mls/hr IVPB Q8H-IV MICHAEL; Protocol Stop: 12/10/19 09:59 Last Admin: 12/09/19 09:54 Dose: Not Given Documented by: Norepinephrine Bitartrate (Levophed Bag) 16,000 mcg in 500 mls @ 9.375 mls/hr IVPB TITR [facility]; Protocol Last Admin: 12/09/19 08:56 Dose: 5 mcg/min, 9.375 mls/hr Documented by: Levetiracetam (Keppra Injection -) 500 mg IVPB BID [facility] Last Admin: 12/09/19 09:52 Dose: 500 mg Documented by: Levothyroxine Sodium (Synthroid Injection -) 20 mcg IVPUSH DAILY [facility] Last Admin: 12/09/19 13:20 Dose: 20 mcg Documented by: Methylprednisolone Sodium Succinate (Solu-Medrol -) 40 mg IVPUSH DAILY [facility] Last Admin: 12/09/19 09:52 Dose: 40 mg Documented by: Mycophenolate Mofetil (Cellcept -) 500 mg PO BID [facility] Last Admin: 12/09/19 09:53 Dose: Not Given Documented by: Pantoprazole Sodium (Protonix Iv) 40 mg IVPUSH DAILY [facility] Last Admin: 12/09/19 09:52 Dose: 40 mg Documented by: Rosuvastatin Calcium (Crestor -) 10 mg PO HS [facility] Last Admin: 12/08/19 21:55 Dose: 10 mg Documented by: Tamsulosin HCl (Flomax -) 0.4 mg PO 0830 [facility] Last Admin: 12/09/19 08:56 Dose: Not Given Documented by: - Objective Vital Signs: Vital Signs Temperature 97 F L 12/09/19 12:43 Pulse Rate 63 12/09/19 14:00 Respiratory Rate 20 12/09/19 14:00 Blood Pressure 119/82 12/09/19 14:00 O2 Sat by Pulse Oximetry (%) 95 12/09/19 12:09 Neck: Yes: Supple Cardiovascular: Yes: Pulse Irregular Respiratory: Yes: Mechanically Ventilated Gastrointestinal: Yes: Soft Edema: LLE: Trace, RLE: Trace Labs: CBC, BMP 12/09/19 08:15 12/09/19 08:15 Problem List - Problems (1) Afib Code(s): I48.91 - UNSPECIFIED ATRIAL FIBRILLATION (2) CAD (coronary artery disease) Code(s): I25.10 - ATHSCL HEART DISEASE OF [place] CORONARY ARTERY W/O ANG PCTRS (3) CHF (congestive heart failure) Code(s): I50.9 - HEART FAILURE, UNSPECIFIED Assessment/Plan 79 year old male with a pmhx of anemia, diastolic chf, afib on apixaban, cad s/p pci, htn, hld, cva, ckd, hypothyroidism, and bullous pemphigoid presenting with weakness. CXR cardiomegaly, vascular congestion EKG: afib with VR 60bpm, anterolateral infarct Echocardiogram LVEF 50-55%, no significant valve disease. 1) Cardiac arrest this morning and s/p intubation and on pressors. Lactate 3.6 On vaso and levo. Titrate for map over 65 F/u covid repeat test. F/u cultures. Abx as per primary team for possible aspiration pna. Carvedilol and furosemide on hold. HR is controlled currently off beta brynn. Continue telemetry montior.
--- NOTE | 2019-12-09 20:25 | CONSULT ---
Consult - text type - Consultation Consultation Note: NEUROLOGY CONSULTATION is greatly appreciated: Events reviewed and discussed with RN. This 79 yo RH m man with h/o HTN, Chol, DM, ASHD, spp Stents, AFib, CHF and CVA is on multilple meds including Eliquis. Bullous pemphigoid. S/p transphenoidal hypophysectomy for pituitary adenoma. Chronic blindness. Known to me with Multiple CVA's and seizure disorder, on levetiracetam 500 mg BID. During this hospitalization, multiple episodes of obscuration of consciousness and today, two episodes of unresponsiveness requiring resuscitation. Now intubated in ICU. On Midazolam drip. EXAM: No response to name. Grimaces to sternal pressure. + Spontaneous respirations Poorly reactive pupils. Sluggish corneals +/+ Some horizontal EOM's to Doll's head. Flacid tone all 4's. Areflexic. Multiple bleeding skin lesions. IMP: Severe, B/L cerebral dysfunction without obvious asymmetry. Brainstem functions preserved. Suggest: Continue supportive care and Rx for occult infection Taper Midazolam Prognosis guarded. Thank you very much, Gato Morillo MD
[2019-12-09] MEDS ORDERED: INSULIN (NOVOLOG) ASPART 100 UNITS/ML 10ML VIAL ONE (22:17)
[2019-12-09] MEDS: ROSUVASTATIN CA 10 MG TABLET (FP) PO SCH (22:22)
--- NOTE | 2019-12-09 23:42 | PN ---
Progress Note, Physician History of Present Illness: INTUBATED NO ACUTE DISTRESS BC STAPH SPECIES - Current Medication List Current Medications: Active Medications Albuterol/Ipratropium (Duoneb -) 1 amp NEB Q4H PRN PRN Reason: SHORT OF BREATH/WHEEZING Last Admin: 12/08/19 02:38 Dose: 1 amp Documented by: Carvedilol (Coreg -) 25 mg PO BID MICHAEL Last Admin: 12/09/19 22:22 Dose: 25 mg Documented by: Furosemide (Lasix Injection -) 40 mg IVPUSH DAILY [facility] Last Admin: 12/09/19 12:13 Dose: Not Given Documented by: Heparin Sodium (Porcine) (Heparin -) 5,000 unit SQ TID [facility] Last Admin: 12/09/19 22:23 Dose: 5,000 unit Documented by: Ceftriaxone Sodium 1 gm/ (Dextrose) 50 mls @ 100 mls/hr IVPB DAILY [facility]; Protocol Last Admin: 12/09/19 12:13 Dose: Not Given Documented by: Midazolam HCl 100 mg/ Sodium (Chloride) 100 mls @ 1 mls/hr IVPB TITR [facility]; Protocol Last Titration: 12/09/19 14:00 Dose: 4 mg/hr, 4 mls/hr Documented by: Vasopressin 40 units/ Sodium (Chloride) 100 mls @ 5 mls/hr IVPB ASDIR [facility]HA[facility]; Protocol Last Titration: 12/09/19 13:00 Dose: 2 units/hr, 5 mls/hr Documented by: Piperacillin Sod/Tazobactam (Sod 2.25 gm/ Dextrose) 50 mls @ 100 mls/hr IVPB Q8H-IV MICHAEL; Protocol Piperacillin Sod/Tazobactam (Sod 2.25 gm/ Dextrose) 50 mls @ 100 mls/hr IVPB Q8H-IV MICHAEL; Protocol Stop: 12/10/19 09:59 Last Admin: 12/09/19 17:30 Dose: 100 mls/hr Documented by: Norepinephrine Bitartrate (Levophed Bag) 16,000 mcg in 500 mls @ 9.375 mls/hr IVPB TITR [facility]; Protocol Last Admin: 12/09/19 08:56 Dose: 5 mcg/min, 9.375 mls/hr Documented by: Levetiracetam (Keppra Injection -) 500 mg IVPB BID MICHAEL Last Admin: 12/09/19 22:22 Dose: 500 mg Documented by: Levothyroxine Sodium (Synthroid Injection -) 20 mcg IVPUSH DAILY [facility] Last Admin: 12/09/19 13:20 Dose: 20 mcg Documented by: Methylprednisolone Sodium Succinate (Solu-Medrol -) 40 mg IVPUSH DAILY [facility] Last Admin: 12/09/19 09:52 Dose: 40 mg Documented by: Mycophenolate Mofetil (Cellcept -) 500 mg PO BID [facility] Last Admin: 12/09/19 22:23 Dose: Not Given Documented by: Pantoprazole Sodium (Protonix Iv) 40 mg IVPUSH DAILY [facility] Last Admin: 12/09/19 09:52 Dose: 40 mg Documented by: Rosuvastatin Calcium (Crestor -) 10 mg PO HS [facility] Last Admin: 12/09/19 22:22 Dose: 10 mg Documented by: Tamsulosin HCl (Flomax -) 0.4 mg PO 0830 [facility] Last Admin: 12/09/19 08:56 Dose: Not Given Documented by: - Objective Vital Signs: Vital Signs Temperature 97.2 F L 12/09/19 16:00 Pulse Rate 58 L 12/09/19 22:00 Respiratory Rate 24 H 12/09/19 22:00 Blood Pressure 101/52 L 12/09/19 22:00 O2 Sat by Pulse Oximetry (%) 98 12/09/19 20:52 Constitutional: Yes: No Distress Cardiovascular: Yes: Regular Rate and Rhythm, S1, S2 Respiratory: Yes: Mechanically Ventilated Gastrointestinal: Yes: Normal Bowel Sounds, Soft Edema: Yes Integumentary: Yes: Other (DISSEMINATED ULCERATIVE LESIONS) Labs: CBC, BMP 12/09/19 08:15 12/09/19 08:15 Assessment/Plan + BLOOD C/S STAPH SP PROBABLE SKIN SOURCE AZOTEMIA PLANTAR ULCER BULOUS PEMPHIGOID AWAIT BC VANCOMYCIN DOSING PER LEVEL
[2019-12-10] MEDS: PIPERACILLIN/TAZOB 2.25 GM 2.25 GM in DEXTROSE 5%-WATER - 50 ML IVPB SCH ×2 (02:26→17:42)
[2019-12-10] MEDS ORDERED: PIPERACILLIN/TAZOBACTAM 2.25 GM VIAL IVPB ONE ×3 (02:28→17:18)
[2019-12-10] MEDS ORDERED: DEXTROSE 5%-WATER - 50 ML IVPB ONE ×3 (02:28→17:18)
[2019-12-10] MEDS ORDERED: MIDAZOLAM IN 0.9 % SOD.CHLORID 1 MG/1 ML PLAST..BAG ONE (05:28)
[2019-12-10] MEDS: HEPARIN NA (PORCINE) 5,000 UNITS/ML 1ML VIAL SQ SCH (06:44)
[2019-12-10] MEDS: INSULIN SLIDING SCALE (NOVOLOG) 1 VIAL SQ SCH ×4 (06:46→21:14)
[2019-12-10 07:23] LABS: PHOSPHOROUS 6.6 mg/dL (2.5-4.9)
[2019-12-10] MEDS ORDERED: VANCOMYCIN 1 GRAM (PRE-DOCKED) 1,000 MG/250 ML BAG IVPB ONE ×2 (08:44→09:00)
[2019-12-10] MEDS: VASOPRESSIN 40 UNITS in SODIUM CHLORIDE 98 ML IVPB SCH (09:06)
[2019-12-10 09:19] LABS: HEMATOCRIT 23.2 % (35.4-49); HEMOGLOBIN 7.1 GM/dL (11.7-16.9); MCH 28.2 pg (25.7-33.7); MCHC 30.4 g/dl (32.0-35.9); MEAN CELL VOLUME 92.7 fl (80-96); MEAN PLT VOLUME 8.7 fl (7.5-11.1); PLATELET COUNT 77 K/MM3 (134-434); RDW 17.9 % (11.9-15.9); WHITE BLOOD COUNT 11.8 K/mm3 (4.0-10.0)
[2019-12-10] MEDS ORDERED: PT OWN MED DRAWER 7, Y5N ONE ×2 (09:21→20:54)
[2019-12-10] MEDS: PANTOPRAZOLE SODIUM 40 MG VIAL IVPUSH SCH (09:34)
[2019-12-10 09:35] LABS: ALBUMIN 2.3 g/dl (3.4-5.0); BILIRUBIN,TOTAL 0.5 mg/dL (0.2-1); CREATININE 3.5 mg/dL (0.55-1.3); POTASSIUM 5.7 mmol/L (3.5-5.1); TOT PROT 5.1 g/dl (6.4-8.2)
[2019-12-10] MEDS: LEVOTHYROXINE SODIUM 100 MCG VIAL IVPUSH SCH (09:35)
[2019-12-10] MEDS: levETIRAcetam 500 MG/5 ML INJECTION VIAL IVPB SCH ×2 (09:35→21:13)
[2019-12-10] MEDS: methylPREDNISolone NA SUCC 40 MG/1 ML VIAL IVPUSH SCH (09:36)
[2019-12-10 09:40] LABS: BLOOD UREA NITROGEN 136.5 mg/dL (7-18)
--- NOTE | 2019-12-10 10:40 | PN ---
Progress Note, Physician History of Present Illness: INTUBATED IN ICU HYPOTENSIVE ON PRESSORS AFEBRILE WBC ELEVATED BC STAPH SPECIES - Current Medication List Current Medications: Active Medications Albuterol/Ipratropium (Duoneb -) 1 amp NEB Q4H PRN PRN Reason: SHORT OF BREATH/WHEEZING Last Admin: 12/08/19 02:38 Dose: 1 amp Documented by: Carvedilol (Coreg -) 25 mg PO BID MICHAEL Last Admin: 12/09/19 22:22 Dose: 25 mg Documented by: Furosemide (Lasix Injection -) 40 mg IVPUSH DAILY [facility] Last Admin: 12/09/19 12:13 Dose: Not Given Documented by: Heparin Sodium (Porcine) (Heparin -) 5,000 unit SQ TID [facility] Last Admin: 12/10/19 06:44 Dose: 5,000 unit Documented by: Midazolam HCl 100 mg/ Sodium (Chloride) 100 mls @ 1 mls/hr IVPB TITR [facility]; Protocol Last Titration: 12/09/19 14:00 Dose: 4 mg/hr, 4 mls/hr Documented by: Vasopressin 40 units/ Sodium (Chloride) 100 mls @ 5 mls/hr IVPB ASDIR [facility]; Protocol Last Admin: 12/10/19 09:06 Dose: Not Given Documented by: Piperacillin Sod/Tazobactam (Sod 2.25 gm/ Dextrose) 50 mls @ 100 mls/hr IVPB Q8H-IV [facility]; Protocol Norepinephrine Bitartrate (Levophed Bag) 16,000 mcg in 500 mls @ 9.375 mls/hr IVPB TITR [facility]; Protocol Last Admin: 12/09/19 08:56 Dose: 5 mcg/min, 9.375 mls/hr Documented by: Insulin Aspart (Novolog Vial Sliding Scale -) 1 vial SQ ACHS [facility]; Protocol Last Admin: 12/10/19 06:46 Dose: 6 units Documented by: Levetiracetam (Keppra Injection -) 500 mg IVPB BID [facility] Last Admin: 12/10/19 09:35 Dose: 500 mg Documented by: Levothyroxine Sodium (Synthroid Injection -) 20 mcg IVPUSH DAILY [facility] Last Admin: 12/10/19 09:35 Dose: 20 mcg Documented by: Methylprednisolone Sodium Succinate (Solu-Medrol -) 40 mg IVPUSH DAILY [facility] Last Admin: 12/10/19 09:36 Dose: 40 mg Documented by: Mycophenolate Mofetil (Cellcept -) 500 mg PO BID [facility] Last Admin: 12/09/19 22:23 Dose: Not Given Documented by: Pantoprazole Sodium (Protonix Iv) 40 mg IVPUSH DAILY [facility] Last Admin: 12/10/19 09:34 Dose: 40 mg Documented by: Rosuvastatin Calcium (Crestor -) 10 mg PO HS [facility] Last Admin: 12/09/19 22:22 Dose: 10 mg Documented by: Tamsulosin HCl (Flomax -) 0.4 mg PO 0830 [facility] Last Admin: 12/09/19 08:56 Dose: Not Given Documented by: - Objective Vital Signs: Vital Signs Temperature 98.8 F 12/10/19 09:25 Pulse Rate 56 L 12/10/19 08:00 Respiratory Rate 22 H 12/10/19 08:00 Blood Pressure 109/54 L 12/10/19 08:00 O2 Sat by Pulse Oximetry (%) 95 12/10/19 05:09 Constitutional: Yes: No Distress Eyes: Yes: Conjunctiva Clear Cardiovascular: Yes: Regular Rate and Rhythm, S1, S2 Respiratory: Yes: Mechanically Ventilated Gastrointestinal: Yes: Normal Bowel Sounds, Soft. No: Tenderness Edema: Yes Integumentary: Yes: Other (DISSEMINATED ULCERATIVE LESIONS) Labs: CBC, BMP 12/10/19 06:00 12/10/19 06:00 Assessment/Plan + BLOOD C/S STAPH SP FINAL C/S PENDING PROBABLE SKIN SOURCE ACUTE RESP FAILURE PNEUMOMIA AZOTEMIA PLANTAR ULCER HEALED BULOUS PEMPHIGOID AWAIT BC VANCOMYCIN DOSING PER LEVEL CONTINUE ZOSYN
--- NOTE | 2019-12-10 11:12 | PN ---
Physical Exam: SUBJECTIVE: Patient seen and examined at bedside. Overnight there were no acute events. This AM he demonstrates sinus bradycardia; will address any electrolyte abnormalities. Today he remains intubated, sedated, and unable to participate in medical interview. OBJECTIVE: Vital Signs Period Temp Pulse Resp BP Sys/Hair Pulse Ox Last 24 Hr 96 F-98.9 F 54-78 20-26 101-130/52-89 95-100 GENERAL: intubated and sedated HEAD: Normal with no signs of trauma. EYES: cristhian, sclera anicteric ENT: Ears normal, nares patent, oropharynx clear without exudates, moist mucous membranes. NECK: Trachea midline, full range of motion, supple. LUNGS: Breath sounds equal, clear to auscultation bilaterally, no wheezes, no crackles, no accessory muscle use. HEART: Sinus bradycardia and rhythm, S1, S2 without murmur, rub or gallop. ABDOMEN: Soft, nondistended, normoactive bowel sounds, no guarding, no rebound, no hepatosplenomegaly, no masses. EXTREMITIES: 2+ pulses, warm, well-perfused, no edema. NEUROLOGICAL: Cranial nerves II through XII grossly intact. Normal speech, gait not observed. SKIN: Diffuse lesions across body Laboratory Results - last 24 hr 12/08/19 12/09/19 12/09/19 22:30 08:15 08:15 WBC RBC Hgb Hct MCV MCH MCHC RDW Neutrophils % Neutrophils % (Manual) 82.4 Band Neutrophils % 0.0 Lymphocytes % Lymphocytes % (Manual) 17.6 D Monocytes % (Manual) 0 L Eosinophils % (Manual) 0.0 Basophils % (Manual) 0.0 Myelocytes % (Man) 0 Promyelocytes % (Man) 0 Blast Cells % (Manual) 0 Nucleated RBC % Metamyelocytes 0 Hypochromia 1+ Platelet Estimate Decreased Polychromasia 0 Poikilocytosis 1+ Anisocytosis 2+ Microcytosis 2+ Macrocytosis 2+ Ovalocytes 1+ Rouleaux 1+ Sodium Potassium Chloride Carbon Dioxide Anion Gap BUN Creatinine Est GFR (CKD-EPI)AfAm Est GFR (CKD-EPI)NonAf POC Glucometer Random Glucose Calcium Phosphorus Magnesium Total Bilirubin AST ALT Alkaline Phosphatase Total Protein Albumin Prolactin 287.0 H COVID-19 (SHENG) Not detected 12/09/19 12/10/19 12/10/19 22:12 06:00 06:00 WBC 11.8 H RBC 2.50 L Hgb 7.1 L Hct 23.2 L MCV 92.7 MCH 28.2 MCHC 30.4 L RDW 17.9 H Neutrophils % No Result Required. Neutrophils % (Manual) Band Neutrophils % Lymphocytes % No Result Required. Lymphocytes % (Manual) Monocytes % (Manual) Eosinophils % (Manual) Basophils % (Manual) Myelocytes % (Man) Promyelocytes % (Man) Blast Cells % (Manual) Nucleated RBC % 0 Metamyelocytes Hypochromia Platelet Estimate Polychromasia Poikilocytosis Anisocytosis Microcytosis Macrocytosis Ovalocytes Rouleaux Sodium 141 Potassium 5.7 H Chloride 110 H Carbon Dioxide 17 L Anion Gap 14 BUN 136.5 H* Creatinine 3.5 H Est GFR (CKD-EPI)AfAm 17.91 Est GFR (CKD-EPI)NonAf 15.45 POC Glucometer 296 Random Glucose 308 H Calcium 8.0 L Phosphorus 6.6 H Magnesium 2.0 Total Bilirubin 0.5 AST 15 ALT 24 Alkaline Phosphatase 80 Total Protein 5.1 L Albumin 2.3 L Prolactin COVID-19 (SHENG) 12/10/19 06:38 WBC RBC Hgb Hct MCV MCH MCHC RDW Neutrophils % Neutrophils % (Manual) Band Neutrophils % Lymphocytes % Lymphocytes % (Manual) Monocytes % (Manual) Eosinophils % (Manual) Basophils % (Manual) Myelocytes % (Man) Promyelocytes % (Man) Blast Cells % (Manual) Nucleated RBC % Metamyelocytes Hypochromia Platelet Estimate Polychromasia Poikilocytosis Anisocytosis Microcytosis Macrocytosis Ovalocytes Rouleaux Sodium Potassium Chloride Carbon Dioxide Anion Gap BUN Creatinine Est GFR (CKD-EPI)AfAm Est GFR (CKD-EPI)NonAf POC Glucometer 272 Random Glucose Calcium Phosphorus Magnesium Total Bilirubin AST ALT Alkaline Phosphatase Total Protein Albumin Prolactin COVID-19 (SHENG) Active Medications Generic Name Dose Route Start Last Admin Trade Name Freq PRN Reason Stop Dose Admin Albuterol/Ipratropium 1 amp 12/07/19 13:25 12/08/19 02:38 Duoneb - NEB 1 amp Q4H PRN Administration SHORT OF BREATH/WHEEZING Carvedilol 25 mg 12/07/19 22:00 12/09/19 22:22 Coreg - PO 25 mg BID MICHAEL Administration Furosemide 40 mg 12/08/19 12:00 12/09/19 12:13 Lasix Injection - IVPUSH Not Given DAILY MICHAEL Heparin Sodium (Porcine) 5,000 unit 12/09/19 14:00 12/10/19 06:44 Heparin - SQ 5,000 unit TID MICHAEL Administration Midazolam HCl 100 mg/ Sodium 100 mls @ 1 mls/hr 12/09/19 06:45 12/09/19 14:00 Chloride IVPB 4 mg/hr TITR MICHAEL 4 mls/hr Titration Protocol 1 MG/HR Vasopressin 40 units/ Sodium 100 mls @ 5 mls/hr 12/09/19 07:30 12/10/19 09:06 Chloride IVPB Not Given ASDIR MICHAEL Protocol 2 UNITS/HR Norepinephrine Bitartrate 16,000 mcg in 500 mls @ 9.375 mls/hr 12/09/19 08:30 12/09/19 08:56 Levophed Bag IVPB 5 mcg/min TITR MICHAEL 9.375 mls/hr Administration Protocol 5 MCG/MIN Piperacillin Sod/Tazobactam 50 mls @ 100 mls/hr 12/10/19 18:00 Sod 2.25 gm/ Dextrose IVPB Q8H-IV [facility]HAEL Protocol Insulin Aspart 1 vial 12/10/19 07:00 12/10/19 06:46 Novolog Vial Sliding Scale - SQ 6 units ACHS MICHAEL Administration Protocol Levetiracetam 500 mg 12/09/19 10:00 12/10/19 09:35 Keppra Injection - IVPB 500 mg BID MICHAEL Administration Levothyroxine Sodium 20 mcg 12/09/19 10:00 12/10/19 09:35 Synthroid Injection - IVPUSH 20 mcg DAILY [facility] Administration Methylprednisolone Sodium Succinate 40 mg 12/09/19 10:00 12/10/19 09:36 Solu-Medrol - IVPUSH 40 mg DAILY [facility] Administration Mycophenolate Mofetil 500 mg 12/07/19 22:00 12/09/19 22:23 Cellcept - PO Not Given BID MICHAEL Pantoprazole Sodium 40 mg 12/09/19 10:00 12/10/19 09:34 Protonix Iv IVPUSH 40 mg DAILY [facility] Administration Rosuvastatin Calcium 10 mg 12/07/19 22:00 12/09/19 22:22 Crestor - PO 10 mg HS MICHAEL Administration Tamsulosin HCl 0.4 mg 12/08/19 08:30 12/09/19 08:56 Flomax - PO Not Given 0830 [facility] ASSESSMENT/PLAN: 79 y/o male PMH dCHF, afib, CAD s/p PCI, HTN, seziure d/o, CVA with RIGHT sided residual deficit, CKD, hypothyroidism, and bullous pemphigoid c/o X and admitted for X. 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 He is now s/p cardiopulmonary arrest (on 12/09/2019) demonstrating PEA x2 (ROSC >1 min for both) in the ICU 2/2 acute hypoxic respiratory failure. # Neuro: seizure d/o, h/o CVA rrd Intubated and sedated Versed 3 # CVS: afid, dCHF, CAD, HTN, anemia Norepi 5 f/u heme consult recommendations regarding anemia Transfuse hb < 7 # Pulm Covid NEGATIVE 12/02 and 12/07 ARDS, aspiration PNA 26/450/80%/8 Taper steroids # ID Rocephin, vanc, zosyn F/u sputum cx, urine cx contaminated (will repeat), blood cx negative # Renal: CKD Cr 2.8 (baseline 2.1) UO 100 cc # TLD RIGHT IJ 12/08 ETT 12/07 [place] # FEN Hold Cont. to monitor. Hyperphosphatemia 12/07. Hyperkalemia 5.4 on 12/07 Nephro TF diet 20cc/hr increase gradually as tolerated to 40cc/hr over one week # PPX Protonix 40 mg IV QD Heparin # Disposition ICU NOK/, Mandy Jenkins, is to be contacted but works after 8pm and would like son, Cj Jenkins, to be contacted: . Visit type - Emergency Visit Emergency Visit: No - New Patient This patient is new to me today: No - Critical Care Critical Care patient: Yes Total Critical Care Time (in minutes): 35 Critical Care Statement: The care of this patient involved high complexity decision making to prevent further life threatening deterioration of the patient's condition and/or to evaluate & treat vital organ system(s) failure or risk of failure. ATTENDING PHYSICIAN STATEMENT I saw and evaluated the patient. I reviewed the resident's note and discussed the case with the resident. I agree with the resident's findings and plan as documented. SUBJECTIVE: OBJECTIVE: ASSESSMENT AND PLAN:
[2019-12-10 11:16] LABS: ANISOCYTOSIS 1+; MACROCYTOSIS 1+; OVALOCYTE 1+; PLATELET ESTIMATE DECREASED
[2019-12-10] MEDS: FUROSEMIDE 40 MG/4 ML INJECTABLE VIAL IVPUSH SCH (11:43)
--- NOTE | 2019-12-10 11:44 | PN ---
Teaching Attending Note Name of Resident: Galindo Alexandre ATTENDING PHYSICIAN STATEMENT I saw and evaluated the patient. I reviewed the resident's note and discussed the case with the resident. I agree with the resident's findings and plan as documented. SUBJECTIVE: Pt seen and examined in the ICU. Remains intubated, sedated on levophed gtt. Vented on volume assist control with 80% FiO2, PEEP 8. OBJECTIVE: Vital Signs Period Temp Pulse Resp BP Sys/Hair Pulse Ox Last 24 Hr 96 F-98.9 F 54-78 20-26 101-130/52-89 95-100 Intake & Output 12/07/19 12/08/19 12/09/19 12/10/19 23:59 23:59 23:59 23:59 Intake Total 1920 10 300 310 Output Total 100 50 400 Balance 0 -90 250 -90 Weight 106.254 kg 110.677 kg 114.475 kg Gen: intubated, sedated Heart: RRR Lung: decreased breath sounds at the bases Abd: softly distended, nontender Ext: no edema, multiple ulcers CBC, BMP 12/10/19 06:00 12/10/19 06:00 Active Medications Albuterol/Ipratropium (Duoneb -) 1 amp NEB Q4H PRN PRN Reason: SHORT OF BREATH/WHEEZING Last Admin: 12/08/19 02:38 Dose: 1 amp Documented by: Carvedilol (Coreg -) 25 mg PO BID [facility]PL[facility] Last Admin: 12/09/19 22:22 Dose: 25 mg Documented by: Furosemide (Lasix Injection -) 40 mg IVPUSH DAILY [facility] Last Admin: 12/09/19 12:13 Dose: Not Given Documented by: Heparin Sodium (Porcine) (Heparin -) 5,000 unit SQ TID [facility] Last Admin: 12/10/19 06:44 Dose: 5,000 unit Documented by: Midazolam HCl 100 mg/ Sodium (Chloride) 100 mls @ 1 mls/hr IVPB TITR [facility]; Protocol Last Titration: 12/09/19 14:00 Dose: 4 mg/hr, 4 mls/hr Documented by: Vasopressin 40 units/ Sodium (Chloride) 100 mls @ 5 mls/hr IVPB ASDIR [facility]; Protocol Last Admin: 12/10/19 09:06 Dose: Not Given Documented by: Norepinephrine Bitartrate (Levophed Bag) 16,000 mcg in 500 mls @ 9.375 mls/hr IVPB TITR [facility]; Protocol Last Admin: 12/09/19 08:56 Dose: 5 mcg/min, 9.375 mls/hr Documented by: Piperacillin Sod/Tazobactam (Sod 2.25 gm/ Dextrose) 50 mls @ 100 mls/hr IVPB Q8H-IV [facility]HAEL; Protocol Insulin Aspart (Novolog Vial Sliding Scale -) 1 vial SQ ACHS [facility]PLACED BY [facility]; Protocol Last Admin: 12/10/19 06:46 Dose: 6 units Documented by: Levetiracetam (Keppra Injection -) 500 mg IVPB BID [facility]PL[facility] Last Admin: 12/10/19 09:35 Dose: 500 mg Documented by: Levothyroxine Sodium (Synthroid Injection -) 20 mcg IVPUSH DAILY [facility] Last Admin: 12/10/19 09:35 Dose: 20 mcg Documented by: Methylprednisolone Sodium Succinate (Solu-Medrol -) 40 mg IVPUSH DAILY [facility] Last Admin: 12/10/19 09:36 Dose: 40 mg Documented by: Mycophenolate Mofetil (Cellcept -) 500 mg PO BID [facility]PL[facility]ED BY [facility] Last Admin: 12/09/19 22:23 Dose: Not Given Documented by: Pantoprazole Sodium (Protonix Iv) 40 mg IVPUSH DAILY [facility] Last Admin: 12/10/19 09:34 Dose: 40 mg Documented by: Rosuvastatin Calcium (Crestor -) 10 mg PO HS [facility]PL[facility]ED BY [facility] Last Admin: 12/09/19 22:22 Dose: 10 mg Documented by: Tamsulosin HCl (Flomax -) 0.4 mg PO 0830 REPLACED BY [facility] Last Admin: 12/09/19 08:56 Dose: Not Given Documented by: ASSESSMENT AND PLAN: s/p Cardiopulmonary Arrest Acute Hypoxic and Hypercapneic Respiratory Failure Likely Aspiration Pneumonia Septic Shock Acute on Chronic Renal Failure Lactic Acidosis Bullous Pemphigoid CAD LV Diastolic Dysfunction Atrial Fibrillation Seizure Disorder h/o CVA Hypothyroidism Anemia Thrombocytopenia - continue antibiotics - f/u cultures - IVF - monitor urine output, creatinine - titrate presors to maintain MAP >65 - rate control - taper off steroids - sedate for vent synchrony - continue volume assist control - enteral feeds - DVT/GI prophylaxis - ICU monitoring critical care time spent in reviewing chart, evaluating patient and formulating plan 35 min
[2019-12-10] MEDS: TAMSULOSIN HCL 0.4 MG CAP PO SCH (11:47)
[2019-12-10] MEDS: MYCOPHENOLATE MOFETIL 500 MG TABLET PO SCH (11:47)
[2019-12-10] MEDS: CARVEDILOL 25 MG TABLET (FP) PO SCH ×2 (11:47→21:14)
[2019-12-10 12:23] LABS: ARTERIAL BLD GAS O2 SATURATION 96.1 mmHg (95-98); ARTERIAL BLOOD GAS BASE EXCESS -8.5 mmol/L (-2-2); ARTERIAL BLOOD GAS PO2 88.9 mmHg (80-100); ARTERIAL BLOOD GAS pH 7.306 (7.350-7.450)
[2019-12-10 12:25] LABS: ALLENS TEST POSITIVE; VENT MODE A/C; VENT RATE 26
--- NOTE | 2019-12-10 12:51 | PN ---
Progress Note, Physician Chief Complaint: s/p Cardiopulmonary Arrest Acute Hypoxic and Hypercapneic Respiratory Failure Likely Aspiration Pneumonia Septic Shock Acute on Chronic Renal Failure Lactic Acidosis Bullous Pemphigoid CAD LV Diastolic Dysfunction Atrial Fibrillation Seizure Disorder h/o CVA Hypothyroidism Anemia Thrombocytopenia History of Present Illness: Remains intubated On pressors to keep MAP>65 mm Hg - Current Medication List Current Medications: Active Medications Albuterol/Ipratropium (Duoneb -) 1 amp NEB Q4H PRN PRN Reason: SHORT OF BREATH/WHEEZING Last Admin: 12/08/19 02:38 Dose: 1 amp Documented by: Carvedilol (Coreg -) 25 mg PO BID MICHAEL Last Admin: 12/10/19 11:47 Dose: Not Given Documented by: Heparin Sodium (Porcine) (Heparin -) 5,000 unit SQ TID MICHAEL Last Admin: 12/10/19 06:44 Dose: 5,000 unit Documented by: Midazolam HCl 100 mg/ Sodium (Chloride) 100 mls @ 1 mls/hr IVPB TITR MICHAEL; Protocol Last Titration: 12/09/19 14:00 Dose: 4 mg/hr, 4 mls/hr Documented by: Vasopressin 40 units/ Sodium (Chloride) 100 mls @ 5 mls/hr IVPB ASDIR MICHAEL; Protocol Last Admin: 12/10/19 09:06 Dose: Not Given Documented by: Norepinephrine Bitartrate (Levophed Bag) 16,000 mcg in 500 mls @ 9.375 mls/hr IVPB TITR MICHAEL; Protocol Last Admin: 12/09/19 08:56 Dose: 5 mcg/min, 9.375 mls/hr Documented by: Piperacillin Sod/Tazobactam (Sod 2.25 gm/ Dextrose) 50 mls @ 100 mls/hr IVPB Q8H-IV MICHAEL; Protocol Insulin Aspart (Novolog Vial Sliding Scale -) 1 vial SQ ACHS MICHAEL; Protocol Last Admin: 12/10/19 11:43 Dose: 4 units Documented by: Levetiracetam (Keppra Injection -) 500 mg IVPB BID MICHAEL Last Admin: 12/10/19 09:35 Dose: 500 mg Documented by: Levothyroxine Sodium (Synthroid Injection -) 20 mcg IVPUSH DAILY MICHAEL Last Admin: 12/10/19 09:35 Dose: 20 mcg Documented by: Methylprednisolone Sodium Succinate (Solu-Medrol -) 40 mg IVPUSH DAILY [facility] Last Admin: 12/10/19 09:36 Dose: 40 mg Documented by: Mycophenolate Mofetil (Cellcept -) 500 mg PO BID [facility] Last Admin: 12/10/19 11:47 Dose: Not Given Documented by: Pantoprazole Sodium (Protonix Iv) 40 mg IVPUSH DAILY [facility] Last Admin: 12/10/19 09:34 Dose: 40 mg Documented by: Rosuvastatin Calcium (Crestor -) 10 mg PO HS [facility] Last Admin: 12/09/19 22:22 Dose: 10 mg Documented by: Tamsulosin HCl (Flomax -) 0.4 mg PO 0830 [facility] Last Admin: 12/10/19 11:47 Dose: Not Given Documented by: - Objective Vital Signs: Vital Signs Temperature 96 F L 12/10/19 12:00 Pulse Rate 54 L 12/10/19 12:00 Respiratory Rate 22 H 12/10/19 12:00 Blood Pressure 126/72 12/10/19 12:00 O2 Sat by Pulse Oximetry (%) 100 12/10/19 10:00 Constitutional: Yes: Well Nourished, No Distress, Calm Cardiovascular: Yes: Regular Rate and Rhythm Respiratory: Yes: Regular, CTA Bilaterally, Mechanically Ventilated Gastrointestinal: Yes: Normal Bowel Sounds, Soft Genitourinary: Yes: [place] Present Edema: No Peripheral Pulses WNL: Yes Neurological: Yes: Other (sedated) Labs: CBC, BMP 12/10/19 06:00 12/10/19 06:00 Problem List - Problems (1) Acute respiratory failure Assessment/Plan: -Mech vent -Pulmonary consult -IV medrol -IV Zosyn -Start Enteral feeds Problems reviewed: Yes Code(s): J96.00 - ACUTE RESPIRATORY FAILURE, UNSP W HYPOXIA OR HYPERCAPNIA (2) Bullous pemphigoid Assessment/Plan: -On cellcept Problems reviewed: Yes Code(s): L12.0 - BULLOUS PEMPHIGOID (3) Acute on chronic renal insufficiency Assessment/Plan: -Nephrology on board -monitor daily labs Problems reviewed: Yes Code(s): N28.9 - DISORDER OF KIDNEY AND URETER, UNSPECIFIED; N18.9 - CHRONIC KIDNEY DISEASE, UNSPECIFIED (4) Pneumonia Assessment/Plan: -Likely aspiration -CXR reviewed -CT chest when stable -Repeat COVID 19 PCR negative -IV abx -ID consult -IV medrol -Lactic acidosis noted Problems reviewed: Yes Code(s): J18.9 - PNEUMONIA, UNSPECIFIED ORGANISM (5) Afib Assessment/Plan: -Chronic, rate controlled -D/C heparin -Start Eliquis 2.5 mg po bid for age>80, Cr>1.5 Problems reviewed: Yes Code(s): I48.91 - UNSPECIFIED ATRIAL FIBRILLATION (6) Anemia Assessment/Plan: -Chronic -workup last admission was negative -hematology consult -Transfuse only if hg<7.0 to avoid fluid overload. Problems reviewed: Yes Code(s): D64.9 - ANEMIA, UNSPECIFIED Assessment/Plan See problem list
[2019-12-10] MEDS: NOREPINEPHRINE D5W PREMIX 16,000 MCG/500 ML BAG IVPB SCH (12:56)
[2019-12-10] MEDS: MIDAZOLAM 100 MG in SODIUM CHLORIDE 100 ML IVPB SCH (12:56)
[2019-12-10] MEDS ORDERED: CALCIUM GLUCONATE 10% - 1,000 MG/10 ML VIAL IVPB ONE (13:34)
[2019-12-10] MEDS ORDERED: DEXTROSE 50%-WATER - 25 GM/50 ML VIAL IVPUSH ONE (13:34)
[2019-12-10] MEDS ORDERED: INSULIN REGULAR HUMAN 100 UNITS/ML *VIAL IVPUSH ONE (13:34)
--- NOTE | 2019-12-10 13:37 | PN ---
Progress Note, Physician History of Present Illness: Pt seen and examined at bedside. He remains in the ICU. He remains intubated. - Current Medication List Current Medications: Active Medications Albuterol/Ipratropium (Duoneb -) 1 amp NEB Q4H PRN PRN Reason: SHORT OF BREATH/WHEEZING Last Admin: 12/08/19 02:38 Dose: 1 amp Documented by: Apixaban (Eliquis -) 2.5 mg PO BID [facility] Carvedilol (Coreg -) 25 mg PO BID [facility] Last Admin: 12/10/19 11:47 Dose: Not Given Documented by: Midazolam HCl 100 mg/ Sodium (Chloride) 100 mls @ 1 mls/hr IVPB TITR [facility]; Protocol Last Admin: 12/10/19 12:56 Dose: Not Given Documented by: Vasopressin 40 units/ Sodium (Chloride) 100 mls @ 5 mls/hr IVPB ASDIR MICHAEL; Protocol Last Admin: 12/10/19 09:06 Dose: Not Given Documented by: Norepinephrine Bitartrate (Levophed Bag) 16,000 mcg in 500 mls @ 9.375 mls/hr IVPB TITR MICHAEL; Protocol Last Admin: 12/10/19 12:56 Dose: Not Given Documented by: Piperacillin Sod/Tazobactam (Sod 2.25 gm/ Dextrose) 50 mls @ 100 mls/hr IVPB Q8H-IV MICHAEL; Protocol Insulin Aspart (Novolog Vial Sliding Scale -) 1 vial SQ ACHS [facility]; Protocol Last Admin: 12/10/19 11:43 Dose: 4 units Documented by: Levetiracetam (Keppra Injection -) 500 mg IVPB BID [facility] Last Admin: 12/10/19 09:35 Dose: 500 mg Documented by: Levothyroxine Sodium (Synthroid Injection -) 20 mcg IVPUSH DAILY [facility] Last Admin: 12/10/19 09:35 Dose: 20 mcg Documented by: Methylprednisolone Sodium Succinate (Solu-Medrol -) 40 mg IVPUSH DAILY [facility] Last Admin: 12/10/19 09:36 Dose: 40 mg Documented by: Mycophenolate Mofetil (Cellcept -) 500 mg PO BID [facility] Last Admin: 12/10/19 11:47 Dose: Not Given Documented by: Pantoprazole Sodium (Protonix Iv) 40 mg IVPUSH DAILY [facility] Last Admin: 12/10/19 09:34 Dose: 40 mg Documented by: Rosuvastatin Calcium (Crestor -) 10 mg PO HS [facility] Last Admin: 12/09/19 22:22 Dose: 10 mg Documented by: Tamsulosin HCl (Flomax -) 0.4 mg PO 0830 [facility] Last Admin: 12/10/19 11:47 Dose: Not Given Documented by: - Objective Vital Signs: Vital Signs Temperature 96 F L 12/10/19 12:00 Pulse Rate 54 L 12/10/19 12:00 Respiratory Rate 22 H 12/10/19 12:00 Blood Pressure 126/72 12/10/19 12:00 O2 Sat by Pulse Oximetry (%) 100 12/10/19 10:00 Constitutional: Yes: Calm HENT: Yes: Atraumatic Cardiovascular: Yes: S1, S2 Respiratory: Yes: Mechanically Ventilated Gastrointestinal: Yes: Soft Genitourinary: Yes: [place] Present, Oliguria Musculoskeletal: Yes: Muscle Weakness Edema: Yes Integumentary: Yes: Other (bullous pemphigoid) Neurological: Yes: Lethargy Labs: CBC, BMP 12/10/19 06:00 12/10/19 06:00 - ....Imaging Chest X-ray: Report Reviewed Assessment/Plan Current Medications Generic Name Dose Route Start Last Admin Trade Name Freq PRN Reason Stop Dose Admin Albuterol/Ipratropium 1 amp 12/07/19 13:25 12/08/19 02:38 Duoneb - NEB 1 amp Q4H PRN Administration SHORT OF BREATH/WHEEZING Apixaban 2.5 mg 12/10/19 22:00 Eliquis - PO BID [facility] Calcium Gluconate 1,000 mg 12/10/19 13:34 Calcium Gluconate 10% - IVPB 12/10/19 13:35 ONCE ONE Carvedilol 25 mg 12/07/19 22:00 12/10/19 11:47 Coreg - PO Not Given BID MICHAEL Dextrose 25 gm 12/10/19 13:34 D50w (Vial) - IVPUSH 12/10/19 13:35 NOW ONE Midazolam HCl 100 mg/ Sodium 100 mls @ 1 mls/hr 12/09/19 06:45 12/10/19 12:56 Chloride IVPB Not Given TITR MICHAEL Protocol 1 MG/HR Vasopressin 40 units/ Sodium 100 mls @ 5 mls/hr 12/09/19 07:30 12/10/19 09:06 Chloride IVPB Not Given ASDIR MICHAEL Protocol 2 UNITS/HR Norepinephrine Bitartrate 16,000 mcg in 500 mls @ 9.375 mls/hr 12/09/19 08:30 12/10/19 12:56 Levophed Bag IVPB Not Given TITR MICHAEL Protocol 5 MCG/MIN Piperacillin Sod/Tazobactam 50 mls @ 100 mls/hr 12/10/19 18:00 Sod 2.25 gm/ Dextrose IVPB Q8H-IV MICHAEL Protocol Insulin Aspart 1 vial 12/10/19 07:00 12/10/19 11:43 Novolog Vial Sliding Scale - SQ 4 units ACHS MICHAEL Administration Protocol Insulin Human Regular 10 units 12/10/19 13:34 Novolin R Vial *For Ivpush Or Iv Drip Only* IVPUSH 12/10/19 13:35 ONCE ONE Levetiracetam 500 mg 12/09/19 10:00 12/10/19 09:35 Keppra Injection - IVPB 500 mg BID MICHAEL Administration Levothyroxine Sodium 20 mcg 12/09/19 10:00 12/10/19 09:35 Synthroid Injection - IVPUSH 20 mcg DAILY MICHAEL Administration Methylprednisolone Sodium Succinate 40 mg 12/09/19 10:00 12/10/19 09:36 Solu-Medrol - IVPUSH 40 mg DAILY MICHAEL Administration Mycophenolate Mofetil 500 mg 12/07/19 22:00 12/10/19 11:47 Cellcept - PO Not Given BID MICHAEL Pantoprazole Sodium 40 mg 12/09/19 10:00 12/10/19 09:34 Protonix Iv IVPUSH 40 mg DAILY MICHAEL Administration Rosuvastatin Calcium 10 mg 12/07/19 22:00 12/09/19 22:22 Crestor - PO 10 mg HS MICHAEL Administration Tamsulosin HCl 0.4 mg 12/08/19 08:30 12/10/19 11:47 Flomax - PO Not Given 0830 [facility] Impression 1. CKD 2. CHF 3. BPH 4. a. fib 5. CAD 6. epilepsy 7. proteinuria 8. anemia 9. foot ulcer 10. abd wall cellulitis 11. bullous pemphigoid 12. LETITIA 13. hyperkalemia 14. cardiac arrest 15. resp failure on vent 16. r/o aspiration Plan - cont pressors - treat potassium medically - vent support - pressors to map 65 - lasix for volume control as needed - urine output improved - taper steroids - discussed with ICU team - cont ICU care
--- NOTE | 2019-12-10 14:43 | PN ---
Progress Note, Physician Chief Complaint: intubated Afib with VR 50s History of Present Illness: 79 year old male with a pmhx of anemia, diastolic chf, afib on apixaban, cad s/p pci, htn, hld, cva, ckd, hypothyroidism, and bullous pemphigoid presenting with weakness. CXR cardiomegaly, vascular congestion EKG: afib with VR 60bpm, anterolateral infarct Echocardiogram LVEF 50-55%, no significant valve disease. - Current Medication List Current Medications: Active Medications Albuterol/Ipratropium (Duoneb -) 1 amp NEB Q4H PRN PRN Reason: SHORT OF BREATH/WHEEZING Last Admin: 12/08/19 02:38 Dose: 1 amp Documented by: Apixaban (Eliquis -) 2.5 mg PO BID MICHAEL Carvedilol (Coreg -) 25 mg PO BID [facility] Last Admin: 12/10/19 11:47 Dose: Not Given Documented by: Midazolam HCl 100 mg/ Sodium (Chloride) 100 mls @ 1 mls/hr IVPB TITR MICHAEL; Protocol Last Admin: 12/10/19 12:56 Dose: Not Given Documented by: Vasopressin 40 units/ Sodium (Chloride) 100 mls @ 5 mls/hr IVPB ASDIR MICHAEL; Protocol Last Admin: 12/10/19 09:06 Dose: Not Given Documented by: Norepinephrine Bitartrate (Levophed Bag) 16,000 mcg in 500 mls @ 9.375 mls/hr IVPB TITR MICHAEL; Protocol Last Admin: 12/10/19 12:56 Dose: Not Given Documented by: Piperacillin Sod/Tazobactam (Sod 2.25 gm/ Dextrose) 50 mls @ 100 mls/hr IVPB Q8H-IV MICHAEL; Protocol Insulin Aspart (Novolog Vial Sliding Scale -) 1 vial SQ ACHS MICHAEL; Protocol Last Admin: 12/10/19 11:43 Dose: 4 units Documented by: Levetiracetam (Keppra Injection -) 500 mg IVPB BID [facility] Last Admin: 12/10/19 09:35 Dose: 500 mg Documented by: Levothyroxine Sodium (Synthroid Injection -) 20 mcg IVPUSH DAILY [facility] Last Admin: 12/10/19 09:35 Dose: 20 mcg Documented by: Methylprednisolone Sodium Succinate (Solu-Medrol -) 40 mg IVPUSH DAILY [facility] Last Admin: 12/10/19 09:36 Dose: 40 mg Documented by: Mycophenolate Mofetil (Cellcept -) 500 mg PO BID [facility] Last Admin: 12/10/19 11:47 Dose: Not Given Documented by: Pantoprazole Sodium (Protonix Iv) 40 mg IVPUSH DAILY [facility] Last Admin: 12/10/19 09:34 Dose: 40 mg Documented by: Rosuvastatin Calcium (Crestor -) 10 mg PO HS [facility] Last Admin: 12/09/19 22:22 Dose: 10 mg Documented by: Tamsulosin HCl (Flomax -) 0.4 mg PO 0830 [facility] Last Admin: 12/10/19 11:47 Dose: Not Given Documented by: - Objective Vital Signs: Vital Signs Temperature 96.3 F L 12/10/19 13:50 Pulse Rate 56 L 12/10/19 13:50 Respiratory Rate 22 H 12/10/19 13:50 Blood Pressure 124/67 12/10/19 13:50 O2 Sat by Pulse Oximetry (%) 100 12/10/19 10:00 Neck: Yes: Supple Cardiovascular: Yes: Pulse Irregular, JVD Respiratory: Yes: Mechanically Ventilated Gastrointestinal: Yes: Soft Edema: LLE: 1+, RLE: 1+ Labs: CBC, BMP 12/10/19 06:00 12/10/19 06:00 Problem List - Problems (1) Afib Code(s): I48.91 - UNSPECIFIED ATRIAL FIBRILLATION (2) CAD (coronary artery disease) Code(s): I25.10 - ATHSCL HEART DISEASE OF [place] CORONARY ARTERY W/O ANG PCTRS (3) CHF (congestive heart failure) Code(s): I50.9 - HEART FAILURE, UNSPECIFIED Assessment/Plan 79 year old male with a pmhx of anemia, diastolic chf, afib on apixaban, cad s/p pci, htn, hld, cva, ckd, hypothyroidism, and bullous pemphigoid presenting with weakness. CXR cardiomegaly, vascular congestion EKG: afib with VR 60bpm, anterolateral infarct Echocardiogram LVEF 50-55%, no significant valve disease. 1) Cardiac arrest this morning and s/p intubation and on pressors. On levo. Titrate for map over 65 F/u cultures. Abx as per primary team for possible aspiration pna. Carvedilol and furosemide on hold. Afib with VR mainly 50s with pauses 3 second range. Would monitor K closely and treat as needed for hyperkalemia to try and keep K closer to less than 5. Renal function worsening. Monitor I/O's. apppears urine output improving today on documentation.
[2019-12-10] MEDS ORDERED: DEXTROSE 50%-WATER 25 GM/50 ML DISP.SYRIN ONE (15:27)
[2019-12-10] MEDS ORDERED: INSULIN REGULAR HUMAN 100 UNITS/ML *VIAL ONE (15:30)
[2019-12-10] MEDS ORDERED: NOREPINEPHRINE BITARTRATE 4 MG/4 ML ML IV ONE (20:54)
[2019-12-10] MEDS: APIXABAN 2.5 MG TABLET PO SCH (21:13)
[2019-12-10] MEDS: ROSUVASTATIN CA 10 MG TABLET (FP) PO SCH (21:14)
[2019-12-10 21:52] LABS: CALCIUM 8.1 mg/dL (8.5-10.1); CREATININE 3.7 mg/dL (0.55-1.3); POTASSIUM 5.2 mmol/L (3.5-5.1)
[2019-12-10 21:54] LABS: BLOOD UREA NITROGEN 136.9 mg/dL (7-18)
[2019-12-10] MEDS ORDERED: APIXABAN 5 MG TABLET PO SCH (22:00)
[2019-12-10] MEDS: MYCOPHENOLATE MOFETIL 200 MG/ML SUSPENSION PO SCH (22:45)
[2019-12-10] MEDS ORDERED: ACETAMINOPHEN 1000 MG/100 ML VIAL (NON FORMULARY) IVPB ONE (23:43)
[2019-12-11] MEDS: PIPERACILLIN/TAZOB 2.25 GM 2.25 GM in DEXTROSE 5%-WATER - 50 ML IVPB SCH ×3 (01:14→17:25)
[2019-12-11] MEDS: MIDAZOLAM 100 MG in SODIUM CHLORIDE 100 ML IVPB SCH (06:06)
[2019-12-11] MEDS: INSULIN SLIDING SCALE (NOVOLOG) 1 VIAL SQ SCH ×4 (06:06→21:39)
[2019-12-11 06:11] LABS: ARTERIAL BLD GAS O2 SATURATION 98.5 mmHg (95-98); ARTERIAL BLOOD GAS PO2 131.9 mmHg (80-100)
[2019-12-11 06:40] LABS: ALLENS TEST POSITIVE
[2019-12-11 06:41] LABS: VENT MODE A/C; VENT RATE 26
[2019-12-11 07:10] LABS: HEMATOCRIT 21.5 % (35.4-49); MCH 28.7 pg (25.7-33.7); MCHC 32.1 g/dl (32.0-35.9); MEAN CELL VOLUME 89.4 fl (80-96); MEAN PLT VOLUME 8.8 fl (7.5-11.1); PLATELET COUNT 88 K/MM3 (134-434); RDW 17.3 % (11.9-15.9)
[2019-12-11 07:21] LABS: HEMOGLOBIN 6.9 GM/dL (11.7-16.9)
[2019-12-11 07:35] LABS: ALBUMIN 2.2 g/dl (3.4-5.0); BILIRUBIN,TOTAL 0.5 mg/dL (0.2-1); CALCIUM 7.9 mg/dL (8.5-10.1); CREATININE 3.8 mg/dL (0.55-1.3); PHOSPHOROUS 5.6 mg/dL (2.5-4.9); POTASSIUM 5.2 mmol/L (3.5-5.1)
[2019-12-11 08:29] LABS: BLOOD UREA NITROGEN 133.8 mg/dL (7-18)
[2019-12-11] MEDS: TAMSULOSIN HCL 0.4 MG CAP PO SCH (09:09)
[2019-12-11] MEDS ORDERED: PT OWN MED DRAWER 7, Y5N ONE (09:50)
[2019-12-11] MEDS: methylPREDNISolone NA SUCC 40 MG/1 ML VIAL IVPUSH SCH (10:30)
[2019-12-11] MEDS: PANTOPRAZOLE SODIUM 40 MG VIAL IVPUSH SCH (10:30)
[2019-12-11] MEDS: APIXABAN 2.5 MG TABLET PO SCH ×2 (10:30→21:38)
[2019-12-11] MEDS: LEVOTHYROXINE SODIUM 100 MCG VIAL IVPUSH SCH (10:30)
[2019-12-11] MEDS: levETIRAcetam 500 MG/5 ML INJECTION VIAL IVPB SCH ×2 (10:33→21:39)
[2019-12-11] MEDS ORDERED: PIPERACILLIN/TAZOBACTAM 2.25 GM VIAL IVPB ONE ×3 (11:14→21:25)
--- NOTE | 2019-12-11 11:14 | PN ---
Physical Exam: SUBJECTIVE: Patient seen and examined at bedside. No new events. OBJECTIVE: Vital Signs Period Temp Pulse Resp BP Sys/Hair Pulse Ox Last 24 Hr 96 F-97 F 50-98 22-26 98-126/50-72 98-100 GENERAL: The patient is intubated and sedated. HEAD: Normal with no signs of trauma. LUNGS: Breath sounds equal, clear to auscultation bilaterally, no wheezes, no crackles, no accessory muscle use. HEART: Regular rate and rhythm, S1, S2 without murmur, rub or gallop. ABDOMEN: Soft, nontender, nondistended, normoactive bowel sounds. EXTREMITIES: 2+ pulses, warm, well-perfused, no edema. NEUROLOGICAL: unable to obtain at patient sedated. Laboratory Results - last 24 hr 12/10/19 12/10/19 12/10/19 06:00 10:33 11:39 WBC RBC Hgb Hct MCV MCH MCHC RDW Plt Count 77 L D MPV 8.7 Neutrophils % (Manual) 95.0 H Band Neutrophils % 4.0 Lymphocytes % (Manual) 1.0 L D Monocytes % (Manual) 0 L Eosinophils % (Manual) 0.0 Basophils % (Manual) 0.0 Myelocytes % (Man) 0 Promyelocytes % (Man) 0 Blast Cells % (Manual) 0 Nucleated RBC % 0 Metamyelocytes 0 Hypochromia 1+ Platelet Estimate Decreased Polychromasia 0 Poikilocytosis 1+ Anisocytosis 1+ Microcytosis 1+ Macrocytosis 1+ Ovalocytes 1+ Schistocytes 1+ Anticoagulation Therapy Puncture Site Patient Temperature ABG pH ABG pCO2 ABG pO2 ABG HCO3 ABG O2 Sat (Measured) ABG O2 Content ABG Base Excess Ishan Test Patient On Oxygen O2 Delivery Device Oxygen Flow Rate Vent Mode Vent Rate Mechanical Rate PEEP Pressure Support Vent Sodium Potassium Chloride Carbon Dioxide Anion Gap BUN Creatinine Est GFR (CKD-EPI)AfAm Est GFR (CKD-EPI)NonAf POC Glucometer 228 Random Glucose Calcium Phosphorus Magnesium Total Bilirubin AST ALT Alkaline Phosphatase Total Protein Albumin Vancomycin Pre-Dose 14.8 H 12/10/19 12/10/19 12/10/19 11:50 18:27 20:20 WBC RBC Hgb Hct MCV MCH MCHC RDW Plt Count MPV Neutrophils % (Manual) Band Neutrophils % Lymphocytes % (Manual) Monocytes % (Manual) Eosinophils % (Manual) Basophils % (Manual) Myelocytes % (Man) Promyelocytes % (Man) Blast Cells % (Manual) Nucleated RBC % Metamyelocytes Hypochromia Platelet Estimate Polychromasia Poikilocytosis Anisocytosis Microcytosis Macrocytosis Ovalocytes Schistocytes Anticoagulation Therapy No Result Required. Puncture Site Right radial Patient Temperature No Result Required. ABG pH 7.306 L ABG pCO2 34.90 L ABG pO2 88.9 ABG HCO3 17.0 L ABG O2 Sat (Measured) 96.1 ABG O2 Content No Result Required. ABG Base Excess -8.5 L Ishan Test Positive Patient On Oxygen Yes O2 Delivery Device No Result Required. Oxygen Flow Rate 80 Vent Mode A/c Vent Rate 26 Mechanical Rate Mec type PEEP 8.0 Pressure Support Vent 450 Sodium 143 Potassium 5.2 H Chloride 112 H Carbon Dioxide 17 L Anion Gap 14 BUN 136.9 H* Creatinine 3.7 H Est GFR (CKD-EPI)AfAm 16.75 Est GFR (CKD-EPI)NonAf 14.45 POC Glucometer 110 Random Glucose 86 Calcium 8.1 L Phosphorus Magnesium Total Bilirubin AST ALT Alkaline Phosphatase Total Protein Albumin Vancomycin Pre-Dose 12/10/19 12/11/19 12/11/19 21:02 05:00 05:00 WBC 9.0 RBC 2.40 L Hgb 6.9 L* Hct 21.5 L MCV 89.4 MCH 28.7 MCHC 32.1 RDW 17.3 H Plt Count 88 L MPV 8.8 Neutrophils % (Manual) Band Neutrophils % Lymphocytes % (Manual) Monocytes % (Manual) Eosinophils % (Manual) Basophils % (Manual) Myelocytes % (Man) Promyelocytes % (Man) Blast Cells % (Manual) Nucleated RBC % Metamyelocytes Hypochromia Platelet Estimate Polychromasia Poikilocytosis Anisocytosis Microcytosis Macrocytosis Ovalocytes Schistocytes Anticoagulation Therapy Puncture Site Patient Temperature ABG pH ABG pCO2 ABG pO2 ABG HCO3 ABG O2 Sat (Measured) ABG O2 Content ABG Base Excess Ishan Test Patient On Oxygen O2 Delivery Device Oxygen Flow Rate Vent Mode Vent Rate Mechanical Rate PEEP Pressure Support Vent Sodium 141 Potassium 5.2 H Chloride 109 H Carbon Dioxide 19 L Anion Gap 12 BUN 133.8 H* Creatinine 3.8 H Est GFR (CKD-EPI)AfAm 16.22 Est GFR (CKD-EPI)NonAf 13.99 POC Glucometer 91 Random Glucose 89 Calcium 7.9 L Phosphorus 5.6 H Magnesium 2.0 Total Bilirubin 0.5 AST 14 L ALT 20 Alkaline Phosphatase 66 Total Protein 5.0 L Albumin 2.2 L Vancomycin Pre-Dose 12/11/19 12/11/19 05:50 06:03 WBC RBC Hgb Hct MCV MCH MCHC RDW Plt Count MPV Neutrophils % (Manual) Band Neutrophils % Lymphocytes % (Manual) Monocytes % (Manual) Eosinophils % (Manual) Basophils % (Manual) Myelocytes % (Man) Promyelocytes % (Man) Blast Cells % (Manual) Nucleated RBC % Metamyelocytes Hypochromia Platelet Estimate Polychromasia Poikilocytosis Anisocytosis Microcytosis Macrocytosis Ovalocytes Schistocytes Anticoagulation Therapy No Result Required. Puncture Site Right radial Patient Temperature No Result Required. ABG pH 7.350 ABG pCO2 33.00 L ABG pO2 131.9 H ABG HCO3 17.8 L ABG O2 Sat (Measured) 98.5 H ABG O2 Content No Result Required. ABG Base Excess -7.0 L Ishan Test Positive Patient On Oxygen Yes O2 Delivery Device Vent Oxygen Flow Rate 80% Vent Mode A/c Vent Rate 26 Mechanical Rate Vent PEEP 8.0 Pressure Support Vent 450 Sodium Potassium Chloride Carbon Dioxide Anion Gap BUN Creatinine Est GFR (CKD-EPI)AfAm Est GFR (CKD-EPI)NonAf POC Glucometer 90 Random Glucose Calcium Phosphorus Magnesium Total Bilirubin AST ALT Alkaline Phosphatase Total Protein Albumin Vancomycin Pre-Dose Active Medications Generic Name Dose Route Start Last Admin Trade Name Freq PRN Reason Stop Dose Admin Albuterol/Ipratropium 1 amp 12/07/19 13:25 12/08/19 02:38 Duoneb - NEB 1 amp Q4H PRN Administration SHORT OF BREATH/WHEEZING Apixaban 2.5 mg 12/10/19 22:00 12/11/19 10:30 Eliquis - PO 2.5 mg BID MICHAEL Administration Midazolam HCl 100 mg/ Sodium 100 mls @ 1 mls/hr 12/09/19 06:45 12/11/19 06:06 Chloride IVPB Not Given TITR MICHAEL Protocol 1 MG/HR Vasopressin 40 units/ Sodium 100 mls @ 5 mls/hr 12/09/19 07:30 12/10/19 09:06 Chloride IVPB Not Given ASDIR MICHAEL Protocol 2 UNITS/HR Norepinephrine Bitartrate 16,000 mcg in 500 mls @ 9.375 mls/hr 12/09/19 08:30 12/10/19 12:56 Levophed Bag IVPB Not Given TITR MICHAEL Protocol 5 MCG/MIN Piperacillin Sod/Tazobactam 50 mls @ 100 mls/hr 12/10/19 18:00 12/11/19 01:14 Sod 2.25 gm/ Dextrose IVPB 100 mls/hr Q8H-IV MICHAEL Administration Protocol Insulin Aspart 1 vial 12/10/19 07:00 12/11/19 06:06 Novolog Vial Sliding Scale - SQ Not Given ACHS MICHAEL Protocol Levetiracetam 500 mg 12/09/19 10:00 12/11/19 10:33 Keppra Injection - IVPB 500 mg BID MICHAEL Administration Levothyroxine Sodium 20 mcg 12/09/19 10:00 12/11/19 10:30 Synthroid Injection - IVPUSH 20 mcg DAILY MICHAEL Administration Methylprednisolone Sodium Succinate 40 mg 12/09/19 10:00 12/11/19 10:30 Solu-Medrol - IVPUSH 40 mg DAILY MICHAEL Administration Mycophenolate Mofetil 500 mg 12/10/19 22:00 12/10/19 22:45 Cellcept Suspension - PO Not Given BID MICHAEL Pantoprazole Sodium 40 mg 12/09/19 10:00 12/11/19 10:30 Protonix Iv IVPUSH 40 mg DAILY MICHAEL Administration Rosuvastatin Calcium 10 mg 12/07/19 22:00 12/10/19 21:14 Crestor - PO 10 mg HS MICHAEL Administration Tamsulosin HCl 0.4 mg 12/08/19 08:30 12/11/19 09:09 Flomax - PO 0.4 mg 0830 MICHAEL Administration ASSESSMENT/PLAN: 79 y/o male PMH dCHF, afib, CAD s/p PCI, HTN, seziure d/o, CVA with RIGHT sided residual deficit, CKD, hypothyroidism, and bullous pemphigoid c/o X and admitted for X. IP LITIGATION [place] called for unrepsonsiveness and possibly aspiration PNA. He is now s/p cardiopulmonary arrest (on 12/09/2019) demonstrating PEA x2 (ROSC >1 min for both) in the ICU 2/2 acute hypoxic respiratory failure. # Neuro: -h/o seizure disorder, CVA in the past. -Intubated and sedated -Versed GTT # CVS: -h/o afib, dCHF, CAD, HTN, anemia -Patient remains on levophed at 5 -s/p PEA arrest x2 w/ ROSC <10 min, likely hypoxic. -f/u heme consult recommendations regarding anemia -Hb 6.9 today, will transfuse 2u PRBC, consent obtained and placed in the chart -Transfuse hb < 8 # Pulm -Covid NEGATIVE 12/02 and 12/07 -ARDS, likely 2/2 aspiration PNA -slowly tapering FI02 on vent; decreased from 80%-> 70% today -on solu-medrol 40mg daily, will taper slowly # ID -Rocephin, vanc, zosyn -F/u sputum cx, urine cx contaminated (will repeat), blood cx negative # Renal: CKD -Cr 2.8 (baseline 2.1) -monitor output # TLD -RIGHT IJ 12/08 -ETT 12/07 -[place] # FEN -no fluids indicated at this time -Cont. to monitor. Hyperphosphatemia 12/07. Hyperkalemia 5.4 on 12/07 -Nephro TF diet # PPX -Protonix 40 mg IV QD -Heparin SQ # Disposition -ICU -NOK/, Mandy Jenkins, is to be contacted but works after 8pm and would like son, Cj Jenkins, to be contacted: . Visit type - Emergency Visit Emergency Visit: Yes ED Registration Date: 12/03/19 Care time: The patient presented to the Emergency Department on the above date and was hospitalized for further evaluation of their emergent condition. - New Patient This patient is new to me today: No - Critical Care Critical Care patient: Yes Total Critical Care Time (in minutes): 40 Critical Care Statement: The care of this patient involved high complexity decision making to prevent further life threatening deterioration of the patient's condition and/or to evaluate & treat vital organ system(s) failure or risk of failure. - Discharge Referral Referred to [facility] No ATTENDING PHYSICIAN STATEMENT I saw and evaluated the patient. I reviewed the resident's note and discussed the case with the resident. I agree with the resident's findings and plan as documented. SUBJECTIVE: OBJECTIVE: ASSESSMENT AND PLAN:
[2019-12-11] MEDS ORDERED: DEXTROSE 5%-WATER - 50 ML IVPB ONE ×3 (11:15→21:25)
--- NOTE | 2019-12-11 12:08 | PN ---
Teaching Attending Note Name of Resident: Wesley Love ATTENDING PHYSICIAN STATEMENT I saw and evaluated the patient. I reviewed the resident's note and discussed the case with the resident. I agree with the resident's findings and plan as documented. SUBJECTIVE: Pt seen and examined in the ICU. Remains intubated, sedated on levophed gtt. V ented on volume assist control with 70% FiO2, PEEP 8. OBJECTIVE: Vital Signs Period Temp Pulse Resp BP Sys/Hair Pulse Ox Last 24 Hr 96.3 F-97 F 50-98 22-26 98-124/50-67 98-100 Intake & Output 12/08/19 12/09/19 12/10/19 12/11/19 23:59 23:59 23:59 23:59 Intake Total 10 300 988.6 86.8 Output Total 100 50 700 400 Balance -90 250 288.6 -313.2 Weight 110.677 kg 114.475 kg 115.439 kg Gen: intubated, sedated Heart: RRR Lung: decreased breath sounds at the bases Abd: softly distended, nontender Ext: no edema, multiple ulcers CBC, BMP 12/11/19 05:00 12/11/19 05:00 Active Medications Albuterol/Ipratropium (Duoneb -) 1 amp NEB Q4H PRN PRN Reason: SHORT OF BREATH/WHEEZING Last Admin: 12/08/19 02:38 Dose: 1 amp Documented by: Apixaban (Eliquis -) 2.5 mg PO BID [facility] Last Admin: 12/11/19 10:30 Dose: 2.5 mg Documented by: Midazolam HCl 100 mg/ Sodium (Chloride) 100 mls @ 1 mls/hr IVPB TITR [facility]; Protocol Last Admin: 12/11/19 06:06 Dose: Not Given Documented by: Vasopressin 40 units/ Sodium (Chloride) 100 mls @ 5 mls/hr IVPB ASDIR [facility]; Protocol Last Admin: 12/10/19 09:06 Dose: Not Given Documented by: Norepinephrine Bitartrate (Levophed Bag) 16,000 mcg in 500 mls @ 9.375 mls/hr IVPB TITR [facility]; Protocol Last Admin: 12/10/19 12:56 Dose: Not Given Documented by: Piperacillin Sod/Tazobactam (Sod 2.25 gm/ Dextrose) 50 mls @ 100 mls/hr IVPB Q8H-IV [facility]; Protocol Last Admin: 12/11/19 01:14 Dose: 100 mls/hr Documented by: Insulin Aspart (Novolog Vial Sliding Scale -) 1 vial SQ ACHS [facility]; Protocol Last Admin: 12/11/19 06:06 Dose: Not Given Documented by: Levetiracetam (Keppra Injection -) 500 mg IVPB BID [facility] Last Admin: 12/11/19 10:33 Dose: 500 mg Documented by: Levothyroxine Sodium (Synthroid Injection -) 20 mcg IVPUSH DAILY [facility] Last Admin: 12/11/19 10:30 Dose: 20 mcg Documented by: Methylprednisolone Sodium Succinate (Solu-Medrol -) 40 mg IVPUSH DAILY [facility] Last Admin: 12/11/19 10:30 Dose: 40 mg Documented by: Mycophenolate Mofetil (Cellcept Suspension -) 500 mg PO BID [facility] Last Admin: 12/10/19 22:45 Dose: Not Given Documented by: Pantoprazole Sodium (Protonix Iv) 40 mg IVPUSH DAILY [facility] Last Admin: 12/11/19 10:30 Dose: 40 mg Documented by: Rosuvastatin Calcium (Crestor -) 10 mg PO HS [facility] Last Admin: 12/10/19 21:14 Dose: 10 mg Documented by: Tamsulosin HCl (Flomax -) 0.4 mg PO 0830 [facility] Last Admin: 12/11/19 09:09 Dose: 0.4 mg Documented by: ASSESSMENT AND PLAN: s/p Cardiopulmonary Arrest Acute Hypoxic and Hypercapneic Respiratory Failure Likely Aspiration Pneumonia Septic Shock Acute on Chronic Renal Failure Lactic Acidosis Bullous Pemphigoid CAD LV Diastolic Dysfunction Atrial Fibrillation Seizure Disorder h/o CVA Hypothyroidism Anemia Thrombocytopenia - continue antibiotics - f/u cultures - transfuse PRBC - monitor urine output, creatinine - titrate presors to maintain MAP >65 - rate control - taper off steroids - sedate for vent synchrony - continue volume assist control - enteral feeds - DVT/GI prophylaxis - ICU monitoring - prognosis guarded critical care time spent in reviewing chart, evaluating patient and formulating plan 35 min
--- NOTE | 2019-12-11 14:00 | PN ---
Progress Note, Physician Chief Complaint: Intubated and sedated On levophed and midazolam History of Present Illness: 79 year old male with a pmhx of anemia, diastolic chf, afib on apixaban, cad s/p pci, htn, hld, cva, ckd, hypothyroidism, and bullous pemphigoid presenting with weakness. CXR cardiomegaly, vascular congestion EKG: afib with VR 60bpm, anterolateral infarct Echocardiogram LVEF 50-55%, no significant valve disease. - Current Medication List Current Medications: Active Medications Albuterol/Ipratropium (Duoneb -) 1 amp NEB Q4H PRN PRN Reason: SHORT OF BREATH/WHEEZING Last Admin: 12/08/19 02:38 Dose: 1 amp Documented by: Apixaban (Eliquis -) 2.5 mg PO BID [facility] Last Admin: 12/11/19 10:30 Dose: 2.5 mg Documented by: Midazolam HCl 100 mg/ Sodium (Chloride) 100 mls @ 1 mls/hr IVPB TITR [facility]; Protocol Last Admin: 12/11/19 06:06 Dose: Not Given Documented by: Vasopressin 40 units/ Sodium (Chloride) 100 mls @ 5 mls/hr IVPB [facility]; Protocol Last Admin: 12/10/19 09:06 Dose: Not Given Documented by: Norepinephrine Bitartrate (Levophed Bag) 16,000 mcg in 500 mls @ 9.375 mls/hr IVPB TITR [facility]; Protocol Last Admin: 12/10/19 12:56 Dose: Not Given Documented by: Piperacillin Sod/Tazobactam (Sod 2.25 gm/ Dextrose) 50 mls @ 100 mls/hr IVPB Q8H-IV [facility]; Protocol Last Admin: 12/11/19 11:20 Dose: 100 mls/hr Documented by: Insulin Aspart (Novolog Vial Sliding Scale -) 1 vial SQ ACHS [facility]; Protocol Last Admin: 12/11/19 12:21 Dose: Not Given Documented by: Levetiracetam (Keppra Injection -) 500 mg IVPB BID [facility] Last Admin: 12/11/19 10:33 Dose: 500 mg Documented by: Levothyroxine Sodium (Synthroid Injection -) 20 mcg IVPUSH DAILY [facility] Last Admin: 12/11/19 10:30 Dose: 20 mcg Documented by: Methylprednisolone Sodium Succinate (Solu-Medrol -) 40 mg IVPUSH DAILY [facility] Last Admin: 12/11/19 10:30 Dose: 40 mg Documented by: Mycophenolate Mofetil (Cellcept Suspension -) 500 mg PO BID [facility] Last Admin: 12/10/19 22:45 Dose: Not Given Documented by: Pantoprazole Sodium (Protonix Iv) 40 mg IVPUSH DAILY [facility] Last Admin: 12/11/19 10:30 Dose: 40 mg Documented by: Rosuvastatin Calcium (Crestor -) 10 mg PO HS [facility] Last Admin: 12/10/19 21:14 Dose: 10 mg Documented by: Tamsulosin HCl (Flomax -) 0.4 mg PO 0830 [facility] Last Admin: 12/11/19 09:09 Dose: 0.4 mg Documented by: - Objective Vital Signs: Vital Signs Temperature 97 F L 12/11/19 04:00 Pulse Rate 77 12/11/19 12:20 Respiratory Rate 26 H 12/11/19 12:20 Blood Pressure 107/65 12/11/19 06:00 O2 Sat by Pulse Oximetry (%) 95 12/11/19 12:20 Constitutional: Yes: Other (vented and sedated) Neck: Yes: Supple Cardiovascular: Yes: Pulse Irregular, S1, S2 Respiratory: Yes: Mechanically Ventilated Gastrointestinal: Yes: Soft Edema: LLE: 1+, RLE: 1+ Labs: CBC, BMP 12/11/19 05:00 12/11/19 05:00 Problem List - Problems (1) Afib Code(s): I48.91 - UNSPECIFIED ATRIAL FIBRILLATION (2) CAD (coronary artery disease) Code(s): I25.10 - ATHSCL HEART DISEASE OF [place] CORONARY ARTERY W/O ANG PCTRS (3) CHF (congestive heart failure) Code(s): I50.9 - HEART FAILURE, UNSPECIFIED Assessment/Plan 79 year old male with a pmhx of anemia, diastolic chf, afib on apixaban, cad s/p pci, htn, hld, cva, ckd, hypothyroidism, and bullous pemphigoid presenting with weakness. CXR cardiomegaly, vascular congestion EKG: afib with VR 60bpm, anterolateral infarct Echocardiogram LVEF 50-55%, no significant valve disease. 1) Shock -possible aspiration pna Intubated and vent support On levophed to maintain MAP over 65 HR on monitor stable afib 60s no significant pauses today. Abx as per primary team COVID negative x2. CXR b/l infiltrates LETITIA. Monitor urine output and K closely. Agree would consider pRBC transfusion given Hgb 6.9. On apixaban for afib but if any acute bleeding would hold
[2019-12-11] MEDS: NOREPINEPHRINE D5W PREMIX 16,000 MCG/500 ML BAG IVPB SCH (14:05)
[2019-12-11] MEDS ORDERED: FUROSEMIDE 40 MG/4 ML INJECTABLE VIAL IVPUSH ONE (16:20)
[2019-12-11] MEDS: VASOPRESSIN 40 UNITS in SODIUM CHLORIDE 98 ML IVPB SCH (16:27)
--- NOTE | 2019-12-11 17:29 | PN ---
Progress Note, Physician Chief Complaint: s/p Cardiopulmonary Arrest Acute Hypoxic and Hypercapneic Respiratory Failure Likely Aspiration Pneumonia Septic Shock Acute on Chronic Renal Failure Lactic Acidosis Bullous Pemphigoid CAD LV Diastolic Dysfunction Atrial Fibrillation Seizure Disorder h/o CVA Hypothyroidism Anemia Thrombocytopenia History of Present Illness: Remains intubated On pressors to keep MAP>65 mm Hg - Current Medication List Current Medications: Active Medications Albuterol/Ipratropium (Duoneb -) 1 amp NEB Q4H PRN PRN Reason: SHORT OF BREATH/WHEEZING Last Admin: 12/08/19 02:38 Dose: 1 amp Documented by: Apixaban (Eliquis -) 2.5 mg PO BID [facility] Last Admin: 12/11/19 10:30 Dose: 2.5 mg Documented by: Furosemide (Lasix Injection -) 40 mg IVPUSH PRN ONE Stop: 12/11/19 16:21 Last Admin: 12/11/19 17:24 Dose: 40 mg Documented by: Midazolam HCl 100 mg/ Sodium (Chloride) 100 mls @ 1 mls/hr IVPB TITR [facility]; Protocol Last Admin: 12/11/19 06:06 Dose: Not Given Documented by: Vasopressin 40 units/ Sodium (Chloride) 100 mls @ 5 mls/hr IVPB [facility]; Protocol Last Admin: 12/11/19 16:27 Dose: Not Given Documented by: Norepinephrine Bitartrate (Levophed Bag) 16,000 mcg in 500 mls @ 9.375 mls/hr IVPB TITR [facility]; Protocol Last Admin: 12/11/19 14:05 Dose: 5 mcg/min, 9.375 mls/hr Documented by: Piperacillin Sod/Tazobactam (Sod 2.25 gm/ Dextrose) 50 mls @ 100 mls/hr IVPB Q8H-IV [facility]; Protocol Last Admin: 12/11/19 17:25 Dose: 100 mls/hr Documented by: Insulin Aspart (Novolog Vial Sliding Scale -) 1 vial SQ ACHS [facility]; Protocol Last Admin: 12/11/19 17:23 Dose: Not Given Documented by: Levetiracetam (Keppra Injection -) 500 mg IVPB BID [facility] Last Admin: 12/11/19 10:33 Dose: 500 mg Documented by: Levothyroxine Sodium (Synthroid Injection -) 20 mcg IVPUSH DAILY [facility] Last Admin: 12/11/19 10:30 Dose: 20 mcg Documented by: Methylprednisolone Sodium Succinate (Solu-Medrol -) 40 mg IVPUSH DAILY [facility] Last Admin: 12/11/19 10:30 Dose: 40 mg Documented by: Mycophenolate Mofetil (Cellcept Suspension -) 500 mg PO BID [facility] Last Admin: 12/10/19 22:45 Dose: Not Given Documented by: Pantoprazole Sodium (Protonix Iv) 40 mg IVPUSH DAILY [facility] Last Admin: 12/11/19 10:30 Dose: 40 mg Documented by: Rosuvastatin Calcium (Crestor -) 10 mg PO HS [facility] Last Admin: 12/10/19 21:14 Dose: 10 mg Documented by: Tamsulosin HCl (Flomax -) 0.4 mg PO 0830 [facility] Last Admin: 12/11/19 09:09 Dose: 0.4 mg Documented by: - Objective Vital Signs: Vital Signs Temperature 97 F L 12/11/19 04:00 Pulse Rate 77 12/11/19 12:20 Respiratory Rate 26 H 12/11/19 15:49 Blood Pressure 107/65 12/11/19 06:00 O2 Sat by Pulse Oximetry (%) 94 L 12/11/19 15:49 Constitutional: Yes: Well Nourished, No Distress, Calm Cardiovascular: Yes: Regular Rate and Rhythm Respiratory: Yes: Regular, Mechanically Ventilated Gastrointestinal: Yes: Normal Bowel Sounds, Soft, Abdomen, Obese Genitourinary: Yes: [place] Present Edema: No Peripheral Pulses WNL: Yes Neurological: Yes: Other (sedated) Labs: CBC, BMP 12/11/19 05:00 12/11/19 05:00 Problem List - Problems (1) Acute respiratory failure Assessment/Plan: -[facility] vent -Pulmonary consult -IV medrol -IV Zosyn -Start Enteral feeds Problems reviewed: Yes Code(s): J96.00 - ACUTE RESPIRATORY FAILURE, UNSP W HYPOXIA OR HYPERCAPNIA (2) Bullous pemphigoid Assessment/Plan: -On cellcept Problems reviewed: Yes Code(s): L12.0 - BULLOUS PEMPHIGOID (3) Acute on chronic renal insufficiency Assessment/Plan: -Nephrology on board -monitor daily labs Problems reviewed: Yes Code(s): N28.9 - DISORDER OF KIDNEY AND URETER, UNSPECIFIED; N18.9 - CHRONIC KIDNEY DISEASE, UNSPECIFIED (4) Pneumonia Assessment/Plan: -Likely aspiration -CXR reviewed -CT chest when stable -Repeat COVID 19 PCR negative -IV abx -ID consult -IV medrol -Lactic acidosis noted Problems reviewed: Yes Code(s): J18.9 - PNEUMONIA, UNSPECIFIED ORGANISM (5) Afib Assessment/Plan: -Chronic, rate controlled -D/C heparin -Start Eliquis 2.5 mg po bid for age>80, Cr>1.5 Problems reviewed: Yes Code(s): I48.91 - UNSPECIFIED ATRIAL FIBRILLATION (6) Anemia Assessment/Plan: -Chronic -workup last admission was negative -hematology consult -Transfuse only if hg<7.0 to avoid fluid overload. Problems reviewed: Yes Code(s): D64.9 - ANEMIA, UNSPECIFIED Assessment/Plan See problem list
--- NOTE | 2019-12-11 18:07 | PN ---
Progress Note, Physician History of Present Illness: Pt seen and examined at bedside. He remains in the ICU. He remains lethargic. Pt remains intubated. - Current Medication List Current Medications: Active Medications Albuterol/Ipratropium (Duoneb -) 1 amp NEB Q4H PRN PRN Reason: SHORT OF BREATH/WHEEZING Last Admin: 12/08/19 02:38 Dose: 1 amp Documented by: Apixaban (Eliquis -) 2.5 mg PO BID [facility] Last Admin: 12/11/19 10:30 Dose: 2.5 mg Documented by: Midazolam HCl 100 mg/ Sodium (Chloride) 100 mls @ 1 mls/hr IVPB TITR [facility]; Protocol Last Admin: 12/11/19 06:06 Dose: Not Given Documented by: Vasopressin 40 units/ Sodium (Chloride) 100 mls @ 5 mls/hr IVPB [facility]; Protocol Last Admin: 12/11/19 16:27 Dose: Not Given Documented by: Norepinephrine Bitartrate (Levophed Bag) 16,000 mcg in 500 mls @ 9.375 mls/hr IVPB TITR [facility]; Protocol Last Admin: 12/11/19 14:05 Dose: 5 mcg/min, 9.375 mls/hr Documented by: Piperacillin Sod/Tazobactam (Sod 2.25 gm/ Dextrose) 50 mls @ 100 mls/hr IVPB Q8H-IV [facility]; Protocol Last Admin: 12/11/19 17:25 Dose: 100 mls/hr Documented by: Insulin Aspart (Novolog Vial Sliding Scale -) 1 vial SQ ACHS [facility]; Protocol Last Admin: 12/11/19 17:23 Dose: Not Given Documented by: Levetiracetam (Keppra Injection -) 500 mg IVPB BID [facility] Last Admin: 12/11/19 10:33 Dose: 500 mg Documented by: Levothyroxine Sodium (Synthroid Injection -) 20 mcg IVPUSH DAILY [facility] Last Admin: 12/11/19 10:30 Dose: 20 mcg Documented by: Methylprednisolone Sodium Succinate (Solu-Medrol -) 40 mg IVPUSH DAILY [facility] Last Admin: 12/11/19 10:30 Dose: 40 mg Documented by: Mycophenolate Mofetil (Cellcept Suspension -) 500 mg PO BID [facility] Last Admin: 12/10/19 22:45 Dose: Not Given Documented by: Pantoprazole Sodium (Protonix Iv) 40 mg IVPUSH DAILY [facility] Last Admin: 12/11/19 10:30 Dose: 40 mg Documented by: Rosuvastatin Calcium (Crestor -) 10 mg PO HS [facility] Last Admin: 12/10/19 21:14 Dose: 10 mg Documented by: Tamsulosin HCl (Flomax -) 0.4 mg PO 0830 [facility] Last Admin: 12/11/19 09:09 Dose: 0.4 mg Documented by: - Objective Vital Signs: Vital Signs Temperature 97 F L 12/11/19 04:00 Pulse Rate 77 12/11/19 12:20 Respiratory Rate 26 H 12/11/19 15:49 Blood Pressure 107/65 12/11/19 06:00 O2 Sat by Pulse Oximetry (%) 94 L 12/11/19 15:49 Constitutional: Yes: Calm Eyes: Yes: Conjunctiva Clear HENT: Yes: Atraumatic Neck: Yes: Supple Cardiovascular: Yes: S1, S2 Respiratory: Yes: Mechanically Ventilated Gastrointestinal: Yes: Soft Genitourinary: Yes: [place] Present Edema: Yes Edema: LUE: 1+, RUE: 1+, LLE: 2+, RLE: 2+ Integumentary: Yes: Other (bullous pemphigoid) Neurological: Yes: Lethargy Labs: CBC, BMP 12/11/19 05:00 12/11/19 05:00 - ....Imaging Chest X-ray: Report Reviewed Problem List - Problems (1) Acute respiratory failure Code(s): J96.00 - ACUTE RESPIRATORY FAILURE, UNSP W HYPOXIA OR HYPERCAPNIA (2) Bullous pemphigoid Code(s): L12.0 - BULLOUS PEMPHIGOID Assessment/Plan Current Medications Generic Name Dose Route Start Last Admin Trade Name Freq PRN Reason Stop Dose Admin Albuterol/Ipratropium 1 amp 12/07/19 13:25 12/08/19 02:38 Duoneb - NEB 1 amp Q4H PRN Administration SHORT OF BREATH/WHEEZING Apixaban 2.5 mg 12/10/19 22:00 12/11/19 10:30 Eliquis - PO 2.5 mg BID MICHAEL Administration Midazolam HCl 100 mg/ Sodium 100 mls @ 1 mls/hr 12/09/19 06:45 12/11/19 06:06 Chloride IVPB Not Given TITR MIC[facility]EL Protocol 1 MG/HR Vasopressin 40 units/ Sodium 100 mls @ 5 mls/hr 12/09/19 07:30 12/11/19 16:27 Chloride IVPB Not Given ASDIR MICHAEL Protocol 2 UNITS/HR Norepinephrine Bitartrate 16,000 mcg in 500 mls @ 9.375 mls/hr 12/09/19 08:30 12/11/19 14:05 Levophed Bag IVPB 5 mcg/min TITR MICHAEL 9.375 mls/hr Administration Protocol 5 MCG/MIN Piperacillin Sod/Tazobactam 50 mls @ 100 mls/hr 12/10/19 18:00 12/11/19 17:25 Sod 2.25 gm/ Dextrose IVPB 100 mls/hr Q8H-IV [facility] Administration Protocol Insulin Aspart 1 vial 12/10/19 07:00 12/11/19 17:23 Novolog Vial Sliding Scale - SQ Not Given ACHS [facility] Protocol Levetiracetam 500 mg 12/09/19 10:00 12/11/19 10:33 Keppra Injection - IVPB 500 mg BID [facility] Administration Levothyroxine Sodium 20 mcg 12/09/19 10:00 12/11/19 10:30 Synthroid Injection - IVPUSH 20 mcg DAILY [facility] Administration Methylprednisolone Sodium Succinate 40 mg 12/09/19 10:00 12/11/19 10:30 Solu-Medrol - IVPUSH 40 mg DAILY [facility] Administration Mycophenolate Mofetil 500 mg 12/10/19 22:00 12/10/19 22:45 Cellcept Suspension - PO Not Given BID MICHAEL Pantoprazole Sodium 40 mg 12/09/19 10:00 12/11/19 10:30 Protonix Iv IVPUSH 40 mg DAILY [facility] Administration Rosuvastatin Calcium 10 mg 12/07/19 22:00 12/10/19 21:14 Crestor - PO 10 mg HS [facility] Administration Tamsulosin HCl 0.4 mg 12/08/19 08:30 12/11/19 09:09 Flomax - PO 0.4 mg 0830 [facility] Administration Impression 1. CKD 2. CHF 3. BPH 4. a. fib 5. CAD 6. epilepsy 7. proteinuria 8. anemia 9. foot ulcer 10. abd wall cellulitis 11. bullous pemphigoid 12. LETITIA 13. hyperkalemia 14. cardiac arrest 15. resp failure on vent 16. r/o aspiration Plan - cont pressors to map 65 - vent support - lasix for overload, give between prbc - potassium improving - monitor urine output - taper steroids - discussed with ICU team - cont ICU care - letitia on ckd likely atn post cardiac arrest
[2019-12-11] MEDS: MYCOPHENOLATE MOFETIL 200 MG/ML SUSPENSION PO SCH ×3 (19:05→22:26)
[2019-12-11 21:03] LABS: MCHC 32.1 g/dl (32.0-35.9); MEAN CELL VOLUME 90.6 fl (80-96); MEAN PLT VOLUME 8.3 fl (7.5-11.1); PLATELET COUNT 95 K/MM3 (134-434); RBC 2.76 M/mm3 (4.00-5.60); RDW 16.3 % (11.9-15.9); WHITE BLOOD COUNT 10.7 K/mm3 (4.0-10.0)
[2019-12-11] MEDS: ROSUVASTATIN CA 10 MG TABLET (FP) PO SCH (21:38)
--- NOTE | 2019-12-12 00:29 | PN ---
Progress Note (short form) - Note Progress Note: NEUROLOGY PROGRESS: Events reviewed, Patient examined. Case discussed with RN who noted patient followed simple commands and nodded appropriately today. Now: awake. Closes left eye on command Right Ptosis (?) Blinks to threat. Roving EOM's + Spontaneous respirations No limb mov'ts. Areflexia. IMP: Neurologically improved with muslim of consciousness and cortical function. SUGGEST: Continue supportive care and gradual weaning, as tolerated. Thank you very much, Gato Morillo MD
[2019-12-12] MEDS: PIPERACILLIN/TAZOB 2.25 GM 2.25 GM in DEXTROSE 5%-WATER - 50 ML IVPB SCH ×2 (01:13→10:40)
[2019-12-12] MEDS: INSULIN SLIDING SCALE (NOVOLOG) 1 VIAL SQ SCH ×4 (06:00→22:40)
[2019-12-12 06:10] LABS: HEMOGLOBIN 7.9 GM/dL (11.7-16.9); MCH 28.9 pg (25.7-33.7); MCHC 31.7 g/dl (32.0-35.9); MEAN CELL VOLUME 91.1 fl (80-96); MEAN PLT VOLUME 8.4 fl (7.5-11.1); PLATELET COUNT 91 K/MM3 (134-434); RBC 2.74 M/mm3 (4.00-5.60); RDW 16.6 % (11.9-15.9); WHITE BLOOD COUNT 11.7 K/mm3 (4.0-10.0)
[2019-12-12] MEDS: MIDAZOLAM 100 MG in SODIUM CHLORIDE 100 ML IVPB SCH (06:13)
[2019-12-12 06:19] LABS: ALBUMIN 2.3 g/dl (3.4-5.0); BILIRUBIN,TOTAL 0.7 mg/dL (0.2-1); CALCIUM 7.8 mg/dL (8.5-10.1); CREATININE 4.3 mg/dL (0.55-1.3); MAGNESIUM 2.1 mg/dL (1.8-2.4); PHOSPHOROUS 6.2 mg/dL (2.5-4.9); POTASSIUM 5.7 mmol/L (3.5-5.1); TOT PROT 5.5 g/dl (6.4-8.2)
[2019-12-12] MEDS ORDERED: CALCIUM GLUCONATE 10% - 1,000 MG/10 ML VIAL IVPUSH ONE (06:24)
[2019-12-12] MEDS ORDERED: INSULIN REGULAR HUMAN 100 UNITS/ML *VIAL IVPUSH ONE (06:24)
[2019-12-12] MEDS ORDERED: DEXTROSE 50%-WATER - 25 GM/50 ML VIAL IVPUSH ONE (06:25)
[2019-12-12] MEDS ORDERED: CALCIUM CHLORIDE 1 GM/10 ML *DISP.SYRIN ONE (06:29)
[2019-12-12] MEDS ORDERED: DEXTROSE 50%-WATER 25 GM/50 ML DISP.SYRIN ONE (06:30)
[2019-12-12] MEDS ORDERED: CALCIUM GLUCONATE 10% - 1,000 MG/10 ML VIAL ONE (06:30)
[2019-12-12 06:34] LABS: BLOOD UREA NITROGEN 145.8 mg/dL (7-18)
--- NOTE | 2019-12-12 08:15 | PN ---
Physical Exam: SUBJECTIVE: Patient seen and examined at bedside. No events overnight. OBJECTIVE: Vital Signs Period Temp Pulse Resp BP Sys/Hair Pulse Ox Last 24 Hr 97.8 F-98.7 F 64-98 26-26 111-142/45-72 94-100 GENERAL: The patient is intubtaed and sedated. LUNGS: Breath sounds equal, clear to auscultation bilaterally, no wheezes, no crackles. HEART: Regular rate and rhythm, S1, S2 without murmur, rub or gallop. ABDOMEN: Soft, nontender, nondistended, hypoactive bowel sounds, no guarding, no rebound, no hepatosplenomegaly, no masses. EXTREMITIES: 2+ pulses, warm, well-perfused, no edema. NEUROLOGICAL: unable to obtain as patient sedated. SKIN: Warm, dry, normal turgor, multiple round all over the body. Laboratory Results - last 24 hr 12/11/19 12/11/19 12/11/19 05:00 11:00 12:20 WBC RBC Hgb Hct MCV MCH MCHC RDW Plt Count MPV Sodium Potassium Chloride Carbon Dioxide Anion Gap BUN 133.8 H* Creatinine Est GFR (CKD-EPI)AfAm Est GFR (CKD-EPI)NonAf POC Glucometer 92 Random Glucose Calcium Phosphorus Magnesium Total Bilirubin AST ALT Alkaline Phosphatase Total Protein Albumin Blood Type B POSITIVE Antibody Screen Negative Crossmatch See Detail 12/11/19 12/11/19 12/11/19 17:18 20:00 21:20 WBC 10.7 H RBC 2.76 L Hgb 8.0 L Hct 25.0 L D MCV 90.6 MCH 29.0 MCHC 32.1 RDW 16.3 H Plt Count 95 L MPV 8.3 Sodium Potassium Chloride Carbon Dioxide Anion Gap BUN Creatinine Est GFR (CKD-EPI)AfAm Est GFR (CKD-EPI)NonAf POC Glucometer 130 136 Random Glucose Calcium Phosphorus Magnesium Total Bilirubin AST ALT Alkaline Phosphatase Total Protein Albumin Blood Type Antibody Screen Crossmatch 12/12/19 12/12/19 12/12/19 05:30 05:30 05:45 WBC 11.7 H RBC 2.74 L Hgb 7.9 L Hct 25.0 L MCV 91.1 MCH 28.9 MCHC 31.7 L RDW 16.6 H Plt Count 91 L MPV 8.4 Sodium 142 Potassium 5.7 H Chloride 112 H Carbon Dioxide 18 L Anion Gap 12 BUN 145.8 H* Creatinine 4.3 H Est GFR (CKD-EPI)AfAm 13.96 Est GFR (CKD-EPI)NonAf 12.05 POC Glucometer 145 Random Glucose 161 H Calcium 7.8 L Phosphorus 6.2 H Magnesium 2.1 Total Bilirubin 0.7 AST 15 ALT 20 Alkaline Phosphatase 70 Total Protein 5.5 L Albumin 2.3 L Blood Type Antibody Screen Crossmatch Active Medications Generic Name Dose Route Start Last Admin Trade Name Freq PRN Reason Stop Dose Admin Albuterol/Ipratropium 1 amp 12/07/19 13:25 12/08/19 02:38 Duoneb - NEB 1 amp Q4H PRN Administration SHORT OF BREATH/WHEEZING Apixaban 2.5 mg 12/10/19 22:00 12/11/19 21:38 Eliquis - PO 2.5 mg BID MICHAEL Administration Midazolam HCl 100 mg/ Sodium 100 mls @ 1 mls/hr 12/09/19 06:45 12/12/19 06:13 Chloride IVPB Not Given TITR MICHAEL Protocol 1 MG/HR Vasopressin 40 units/ Sodium 100 mls @ 5 mls/hr 12/09/19 07:30 12/11/19 16:27 Chloride IVPB Not Given ASDIR MICHAEL Protocol 2 UNITS/HR Norepinephrine Bitartrate 16,000 mcg in 500 mls @ 9.375 mls/hr 12/09/19 08:30 12/12/19 04:39 Levophed Bag IVPB 3 mcg/min TITR MICHAEL 5.625 mls/hr Titration Protocol 5 MCG/MIN Piperacillin Sod/Tazobactam 50 mls @ 100 mls/hr 12/10/19 18:00 12/12/19 01:13 Sod 2.25 gm/ Dextrose IVPB 100 mls/hr Q8H-IV MICHAEL Administration Protocol Insulin Aspart 1 vial 12/10/19 07:00 12/12/19 06:00 Novolog Vial Sliding Scale - SQ Not Given ACHS MICHAEL Protocol Levetiracetam 500 mg 12/09/19 10:00 12/11/19 21:39 Keppra Injection - IVPB 500 mg BID MICHAEL Administration Levothyroxine Sodium 20 mcg 12/09/19 10:00 12/11/19 10:30 Synthroid Injection - IVPUSH 20 mcg DAILY MICHAEL Administration Methylprednisolone Sodium Succinate 40 mg 12/09/19 10:00 12/11/19 10:30 Solu-Medrol - IVPUSH 40 mg DAILY MICHAEL Administration Mycophenolate Mofetil 500 mg 12/10/19 22:00 12/11/19 22:26 Cellcept Suspension - PO 500 mg BID MICHAEL Administration Pantoprazole Sodium 40 mg 12/09/19 10:00 12/11/19 10:30 Protonix Iv IVPUSH 40 mg DAILY MICHAEL Administration Rosuvastatin Calcium 10 mg 12/07/19 22:00 12/11/19 21:38 Crestor - PO 10 mg HS MICHAEL Administration Tamsulosin HCl 0.4 mg 12/08/19 08:30 12/11/19 09:09 Flomax - PO 0.4 mg 0830 MICHAEL Administration ASSESSMENT/PLAN: 79 y/o male PMH dCHF, afib, CAD s/p PCI, HTN, seziure d/o, CVA with RIGHT sided residual deficit, CKD, hypothyroidism, and bullous pemphigoid c/o X and admitted for X. [employer] called for unrepsonsiveness and possibly aspiration PNA. He is now s/p cardiopulmonary arrest (on 12/09/2019) demonstrating PEA x2 (ROSC >1 min for both) in the ICU 2/2 acute hypoxic respiratory failure. # Neuro: -h/o seizure disorder, CVA in the past. -Intubated and sedated -Versed GTT # CVS: -h/o afib, dCHF, CAD, HTN, anemia -Patient remains on levophed at 5 -s/p PEA arrest x2 w/ ROSC <10 min, likely hypoxic. -f/u heme consult recommendations regarding anemia -Hb 8 after post transfusion yesterday PM # Pulm -Covid NEGATIVE 12/02 and 12/07 -ARDS, likely 2/2 aspiration PNA -slowly tapering FI02 on vent; decreased from 80%-> 60% today -on solu-medrol 40mg daily; patient on prednisone 20mg PO at home # ID -Rocephin, vanc, zosyn -F/u sputum cx, urine cx contaminated (will repeat), blood cx negative # Renal: CKD -Cr 2.8 (baseline 2.1) -monitor output # TLD -RIGHT IJ 12/08 -ETT 12/07 -[place] # FEN -no fluids indicated at this time -Cont. to monitor. Hyperphosphatemia 12/07. Hyperkalemia 5.4 on 12/07 -Nephro TF diet # PPX -Protonix 40 mg IV QD -Heparin SQ # Disposition -ICU -NOK/, Mandy Jenkins, is to be contacted but works after 8pm and would like son, Cj Jenkins, to be contacted: . Visit type - Emergency Visit Emergency Visit: Yes ED Registration Date: 12/03/19 Care time: The patient presented to the Emergency Department on the above date and was hospitalized for further evaluation of their emergent condition. - New Patient This patient is new to me today: No - Critical Care Critical Care patient: Yes Total Critical Care Time (in minutes): 35 Critical Care Statement: The care of this patient involved high complexity decision making to prevent further life threatening deterioration of the patient's condition and/or to evaluate & treat vital organ system(s) failure or risk of failure. - Discharge Referral Referred to [facility] No ATTENDING PHYSICIAN STATEMENT I saw and evaluated the patient. I reviewed the resident's note and discussed the case with the resident. I agree with the resident's findings and plan as documented. SUBJECTIVE: OBJECTIVE: ASSESSMENT AND PLAN:
[2019-12-12] MEDS ORDERED: FUROSEMIDE 100 MG/10 ML INJECTABLE VIAL IVPB ONE (10:12)
--- NOTE | 2019-12-12 10:12 | PN ---
Progress Note, Physician History of Present Illness: Pt seen and examined at bedside. He remains in the ICU. He remains lethargic. - Current Medication List Current Medications: Active Medications Albuterol/Ipratropium (Duoneb -) 1 amp NEB Q4H PRN PRN Reason: SHORT OF BREATH/WHEEZING Last Admin: 12/08/19 02:38 Dose: 1 amp Documented by: Apixaban (Eliquis -) 2.5 mg PO BID MICHAEL Last Admin: 12/11/19 21:38 Dose: 2.5 mg Documented by: Midazolam HCl 100 mg/ Sodium (Chloride) 100 mls @ 1 mls/hr IVPB TITR MICHAEL; Protocol Last Admin: 12/12/19 06:13 Dose: Not Given Documented by: Vasopressin 40 units/ Sodium (Chloride) 100 mls @ 5 mls/hr IVPB ASDIR MICHAEL; Protocol Last Admin: 12/11/19 16:27 Dose: Not Given Documented by: Norepinephrine Bitartrate (Levophed Bag) 16,000 mcg in 500 mls @ 9.375 mls/hr IVPB TITR MICHAEL; Protocol Last Titration: 12/12/19 04:39 Dose: 3 mcg/min, 5.625 mls/hr Documented by: Piperacillin Sod/Tazobactam (Sod 2.25 gm/ Dextrose) 50 mls @ 100 mls/hr IVPB Q8H-IV MICHAEL; Protocol Last Admin: 12/12/19 01:13 Dose: 100 mls/hr Documented by: Insulin Aspart (Novolog Vial Sliding Scale -) 1 vial SQ ACHS MICHAEL; Protocol Last Admin: 12/12/19 06:00 Dose: Not Given Documented by: Levetiracetam (Keppra Injection -) 500 mg IVPB BID [facility] Last Admin: 12/11/19 21:39 Dose: 500 mg Documented by: Levothyroxine Sodium (Synthroid Injection -) 20 mcg IVPUSH DAILY [facility] [place] Last Admin: 12/11/19 10:30 Dose: 20 mcg Documented by: Methylprednisolone Sodium Succinate (Solu-Medrol -) 40 mg IVPUSH DAILY [facility] [place] Last Admin: 12/11/19 10:30 Dose: 40 mg Documented by: Mycophenolate Mofetil (Cellcept Suspension -) 500 mg PO BID [facility] [place] Last Admin: 12/11/19 22:26 Dose: 500 mg Documented by: Pantoprazole Sodium (Protonix Iv) 40 mg IVPUSH DAILY [facility] [place] Last Admin: 12/11/19 10:30 Dose: 40 mg Documented by: Rosuvastatin Calcium (Crestor -) 10 mg PO HS [facility] [place] Last Admin: 12/11/19 21:38 Dose: 10 mg Documented by: Tamsulosin HCl (Flomax -) 0.4 mg PO 0830 [facility] [place] Last Admin: 12/11/19 09:09 Dose: 0.4 mg Documented by: - Objective Vital Signs: Vital Signs Temperature 98.6 F 12/12/19 09:56 Pulse Rate 69 12/12/19 09:56 Respiratory Rate 26 H 12/12/19 09:56 Blood Pressure 134/50 L 12/12/19 09:56 O2 Sat by Pulse Oximetry (%) 100 12/12/19 05:00 Constitutional: Yes: Calm Eyes: Yes: Conjunctiva Clear HENT: Yes: Atraumatic Cardiovascular: Yes: S1, S2 Respiratory: Yes: Mechanically Ventilated Gastrointestinal: Yes: Soft Genitourinary: Yes: [place] Present Musculoskeletal: Yes: Muscle Weakness Edema: Yes Edema: LUE: 1+, RUE: 1+, LLE: 2+, RLE: 2+ Neurological: Yes: Lethargy Labs: CBC, BMP 12/12/19 05:30 12/12/19 05:30 - ....Imaging Chest X-ray: Report Reviewed Problem List - Problems (1) Acute respiratory failure Code(s): J96.00 - ACUTE RESPIRATORY FAILURE, UNSP W HYPOXIA OR HYPERCAPNIA (2) Bullous pemphigoid Code(s): L12.0 - BULLOUS PEMPHIGOID Assessment/Plan Current Medications Generic Name Dose Route Start Last Admin Trade Name Freq PRN Reason Stop Dose Admin Albuterol/Ipratropium 1 amp 12/07/19 13:25 12/08/19 02:38 Duoneb - NEB 1 amp Q4H PRN Administration SHORT OF BREATH/WHEEZING Apixaban 2.5 mg 12/10/19 22:00 12/11/19 21:38 Eliquis - PO 2.5 mg BID MICHAEL Administration Midazolam HCl 100 mg/ Sodium 100 mls @ 1 mls/hr 12/09/19 06:45 12/12/19 06:13 Chloride IVPB Not Given TITR MICHAEL Protocol 1 MG/HR Vasopressin 40 units/ Sodium 100 mls @ 5 mls/hr 12/09/19 07:30 12/11/19 16:27 Chloride IVPB Not Given ASDIR MICHAEL Protocol 2 UNITS/HR Norepinephrine Bitartrate 16,000 mcg in 500 mls @ 9.375 mls/hr 12/09/19 08:30 12/12/19 04:39 Levophed Bag IVPB 3 mcg/min TITR MICHAEL 5.625 mls/hr Titration Protocol 5 MCG/MIN Piperacillin Sod/Tazobactam 50 mls @ 100 mls/hr 12/10/19 18:00 12/12/19 01:13 Sod 2.25 gm/ Dextrose IVPB 100 mls/hr Q8H-IV MICHAEL Administration Protocol Insulin Aspart 1 vial 12/10/19 07:00 12/12/19 06:00 Novolog Vial Sliding Scale - SQ Not Given ACHS MICHAEL Protocol Levetiracetam 500 mg 12/09/19 10:00 12/11/19 21:39 Keppra Injection - IVPB 500 mg BID MICHAEL Administration Levothyroxine Sodium 20 mcg 12/09/19 10:00 12/11/19 10:30 Synthroid Injection - IVPUSH 20 mcg DAILY MICHAEL Administration Methylprednisolone Sodium Succinate 40 mg 12/09/19 10:00 12/11/19 10:30 Solu-Medrol - IVPUSH 40 mg DAILY MICHAEL Administration Mycophenolate Mofetil 500 mg 12/10/19 22:00 12/11/19 22:26 Cellcept Suspension - PO 500 mg BID MICHAEL Administration Pantoprazole Sodium 40 mg 12/09/19 10:00 12/11/19 10:30 Protonix Iv IVPUSH 40 mg DAILY MICHAEL Administration Rosuvastatin Calcium 10 mg 12/07/19 22:00 12/11/19 21:38 Crestor - PO 10 mg HS MICHAEL Administration Tamsulosin HCl 0.4 mg 12/08/19 08:30 12/11/19 09:09 Flomax - PO 0.4 mg 0830 MICHAEL Administration Impression 1. CKD 2. CHF 3. BPH 4. a. fib 5. CAD 6. epilepsy 7. proteinuria 8. anemia 9. foot ulcer 10. abd wall cellulitis 11. bullous pemphigoid 12. LETITIA 13. hyperkalemia 14. cardiac arrest 15. resp failure on vent 16. r/o aspiration Plan - renal function worsening - likely atn - monitor hg - treat potassium medically - lasix for overload - discuss GOC with family - neuro follow up - taper steroids - discussed with ICU team - letitia on ckd likely atn post cardiac arrest
[2019-12-12] MEDS: VASOPRESSIN 40 UNITS in SODIUM CHLORIDE 98 ML IVPB SCH (10:30)
[2019-12-12] MEDS ORDERED: PIPERACILLIN/TAZOBACTAM 2.25 GM VIAL IVPB ONE (10:35)
[2019-12-12] MEDS ORDERED: DEXTROSE 5%-WATER - 50 ML IVPB ONE (10:35)
[2019-12-12] MEDS: MYCOPHENOLATE MOFETIL 200 MG/ML SUSPENSION PO SCH ×2 (10:38→23:00)
[2019-12-12] MEDS: levETIRAcetam 500 MG/5 ML INJECTION VIAL IVPB SCH ×2 (10:38→22:40)
[2019-12-12] MEDS: APIXABAN 2.5 MG TABLET PO SCH ×2 (10:38→22:39)
[2019-12-12] MEDS: LEVOTHYROXINE SODIUM 100 MCG VIAL IVPUSH SCH (10:39)
[2019-12-12] MEDS: PANTOPRAZOLE SODIUM 40 MG VIAL IVPUSH SCH (10:39)
[2019-12-12] MEDS: methylPREDNISolone NA SUCC 40 MG/1 ML VIAL IVPUSH SCH (10:39)
--- NOTE | 2019-12-12 12:33 | PN ---
Progress Note, Physician History of Present Illness: INTUBATED IN ICU HYPOTENSIVE ON PRESSORS AFEBRILE WBC SL ELEVATED BC MSSA (12/06) BC (11/17) NO GROWTH CR INCREASED 4.3 - Current Medication List Current Medications: Active Medications Albuterol/Ipratropium (Duoneb -) 1 amp NEB Q4H PRN PRN Reason: SHORT OF BREATH/WHEEZING Last Admin: 12/08/19 02:38 Dose: 1 amp Documented by: Apixaban (Eliquis -) 2.5 mg PO BID [facility] Last Admin: 12/12/19 10:38 Dose: 2.5 mg Documented by: Midazolam HCl 100 mg/ Sodium (Chloride) 100 mls @ 1 mls/hr IVPB TITR [facility]; Protocol Last Admin: 12/12/19 06:13 Dose: Not Given Documented by: Vasopressin 40 units/ Sodium (Chloride) 100 mls @ 5 mls/hr IVPB ASDIR MICHAEL; Protocol Last Admin: 12/12/19 10:30 Dose: Not Given Documented by: Norepinephrine Bitartrate (Levophed Bag) 16,000 mcg in 500 mls @ 9.375 mls/hr IVPB TITR MICHAEL; Protocol Last Titration: 12/12/19 04:39 Dose: 3 mcg/min, 5.625 mls/hr Documented by: Piperacillin Sod/Tazobactam (Sod 2.25 gm/ Dextrose) 50 mls @ 100 mls/hr IVPB Q8H-IV MICHAEL; Protocol Last Admin: 12/12/19 10:40 Dose: 100 mls/hr Documented by: Insulin Aspart (Novolog Vial Sliding Scale -) 1 vial SQ ACHS [facility]; Protocol Last Admin: 12/12/19 11:58 Dose: Not Given Documented by: Levetiracetam (Keppra Injection -) 500 mg IVPB BID [facility] Last Admin: 12/12/19 10:38 Dose: 500 mg Documented by: Levothyroxine Sodium (Synthroid Injection -) 20 mcg IVPUSH DAILY [facility] Last Admin: 12/12/19 10:39 Dose: 20 mcg Documented by: Methylprednisolone Sodium Succinate (Solu-Medrol -) 40 mg IVPUSH DAILY [facility] Last Admin: 12/12/19 10:39 Dose: 40 mg Documented by: Mycophenolate Mofetil (Cellcept Suspension -) 500 mg PO BID [facility] Last Admin: 12/12/19 10:38 Dose: 500 mg Documented by: Pantoprazole Sodium (Protonix Iv) 40 mg IVPUSH DAILY [facility] Last Admin: 12/12/19 10:39 Dose: 40 mg Documented by: Rosuvastatin Calcium (Crestor -) 10 mg PO HS [facility] Last Admin: 12/11/19 21:38 Dose: 10 mg Documented by: Tamsulosin HCl (Flomax -) 0.4 mg PO 0830 [facility] Last Admin: 12/11/19 09:09 Dose: 0.4 mg Documented by: - Objective Vital Signs: Vital Signs Temperature 98.6 F 12/12/19 09:56 Pulse Rate 69 12/12/19 09:56 Respiratory Rate 26 H 12/12/19 09:56 Blood Pressure 134/50 L 12/12/19 09:56 O2 Sat by Pulse Oximetry (%) 100 12/12/19 05:00 Constitutional: Yes: No Distress Cardiovascular: Yes: Regular Rate and Rhythm, S1, S2 Respiratory: Yes: CTA Bilaterally Gastrointestinal: Yes: Normal Bowel Sounds, Soft. No: Tenderness Edema: Yes Integumentary: Yes: Other (EXTENSIVE ULCERATIVE LESIONS SECONDARY TO PEMPHIGOID) Labs: CBC, BMP 12/12/19 05:30 12/12/19 05:30 Assessment/Plan + BLOOD C/S MSSA PROBABLE SKIN SOURCE ACUTE RESP FAILURE PNEUMOMIA + SPUTUM C/S MEROPENEM AZOTEMIA PLANTAR ULCER HEALED BULOUS PEMPHIGOID D/C VANCO/ ZOSYN CEFAZOLIN/ MEROPENEM ADJUSTED FOR RENAL FAILURE REPEAT BC ECHO VENTILATORY/ HEMODYNAMIC SUPPORT PROGNOSIS POOR
--- NOTE | 2019-12-12 12:34 | PN ---
Progress Note, Physician Chief Complaint: s/p Cardiopulmonary Arrest Acute Hypoxic and Hypercapneic Respiratory Failure Likely Aspiration Pneumonia Septic Shock Acute on Chronic Renal Failure Lactic Acidosis Bullous Pemphigoid CAD LV Diastolic Dysfunction Atrial Fibrillation Seizure Disorder h/o CVA Hypothyroidism Anemia Thrombocytopenia History of Present Illness: Remains intubated in ICU No events overnight s/p PRBC yesterday On eliquis for Pafib - Current Medication List Current Medications: Active Medications Albuterol/Ipratropium (Duoneb -) 1 amp NEB Q4H PRN PRN Reason: SHORT OF BREATH/WHEEZING Last Admin: 12/08/19 02:38 Dose: 1 amp Documented by: Apixaban (Eliquis -) 2.5 mg PO BID MICHAEL Last Admin: 12/12/19 10:38 Dose: 2.5 mg Documented by: Midazolam HCl 100 mg/ Sodium (Chloride) 100 mls @ 1 mls/hr IVPB TITR MICHAEL; Protocol Last Admin: 12/12/19 06:13 Dose: Not Given Documented by: Vasopressin 40 units/ Sodium (Chloride) 100 mls @ 5 mls/hr IVPB ASDIR MICHAEL; Protocol Last Admin: 12/12/19 10:30 Dose: Not Given Documented by: Norepinephrine Bitartrate (Levophed Bag) 16,000 mcg in 500 mls @ 9.375 mls/hr IVPB TITR MICHAEL; Protocol Last Titration: 12/12/19 04:39 Dose: 3 mcg/min, 5.625 mls/hr Documented by: Piperacillin Sod/Tazobactam (Sod 2.25 gm/ Dextrose) 50 mls @ 100 mls/hr IVPB Q8H-IV MICHAEL; Protocol Last Admin: 12/12/19 10:40 Dose: 100 mls/hr Documented by: Insulin Aspart (Novolog Vial Sliding Scale -) 1 vial SQ ACHS MICHAEL; Protocol Last Admin: 12/12/19 11:58 Dose: Not Given Documented by: Levetiracetam (Keppra Injection -) 500 mg IVPB BID MICHAEL Last Admin: 12/12/19 10:38 Dose: 500 mg Documented by: Levothyroxine Sodium (Synthroid Injection -) 20 mcg IVPUSH DAILY MICHAEL Last Admin: 12/12/19 10:39 Dose: 20 mcg Documented by: Methylprednisolone Sodium Succinate (Solu-Medrol -) 40 mg IVPUSH DAILY MICHAEL Last Admin: 12/12/19 10:39 Dose: 40 mg Documented by: Mycophenolate Mofetil (Cellcept Suspension -) 500 mg PO BID [facility] Last Admin: 12/12/19 10:38 Dose: 500 mg Documented by: Pantoprazole Sodium (Protonix Iv) 40 mg IVPUSH DAILY [facility] Last Admin: 12/12/19 10:39 Dose: 40 mg Documented by: Rosuvastatin Calcium (Crestor -) 10 mg PO HS [facility] Last Admin: 12/11/19 21:38 Dose: 10 mg Documented by: Tamsulosin HCl (Flomax -) 0.4 mg PO 0830 [facility] Last Admin: 12/11/19 09:09 Dose: 0.4 mg Documented by: - Objective Vital Signs: Vital Signs Temperature 98.6 F 12/12/19 09:56 Pulse Rate 69 12/12/19 09:56 Respiratory Rate 26 H 12/12/19 09:56 Blood Pressure 134/50 L 12/12/19 09:56 O2 Sat by Pulse Oximetry (%) 100 12/12/19 05:00 Constitutional: Yes: Well Nourished, No Distress, Calm Cardiovascular: Yes: Regular Rate and Rhythm Respiratory: Yes: Regular, Mechanically Ventilated Gastrointestinal: Yes: Normal Bowel Sounds, Soft, Abdomen, Obese Genitourinary: Yes: [place] Present Edema: No Peripheral Pulses WNL: Yes Integumentary: Yes: Other (Generalized) Neurological: Yes: Other (sedated) Labs: CBC, BMP 12/12/19 05:30 12/12/19 05:30 Problem List - Problems (1) Acute respiratory failure Assessment/Plan: -Mech vent -Pulmonary consult -IV medrol -IV Zosyn -Enteral feeds Problems reviewed: Yes Code(s): J96.00 - ACUTE RESPIRATORY FAILURE, UNSP W HYPOXIA OR HYPERCAPNIA (2) Bullous pemphigoid Assessment/Plan: -On cellcept Problems reviewed: Yes Code(s): L12.0 - BULLOUS PEMPHIGOID (3) Acute on chronic renal insufficiency Assessment/Plan: -Nephrology on board -monitor daily labs Problems reviewed: Yes Code(s): N28.9 - DISORDER OF KIDNEY AND URETER, UNSPECIFIED; N18.9 - CHRONIC KIDNEY DISEASE, UNSPECIFIED (4) Pneumonia Assessment/Plan: -Likely aspiration -CXR reviewed -CT chest when stable -Repeat COVID 19 PCR negative -IV abx -ID consult -IV medrol -Lactic acidosis noted Problems reviewed: Yes Code(s): J18.9 - PNEUMONIA, UNSPECIFIED ORGANISM (5) Afib Assessment/Plan: -Chronic, rate controlled -D/C heparin -Eliquis 2.5 mg po bid for age>80, Cr>1.5 -Transfuse if needed Problems reviewed: Yes Code(s): I48.91 - UNSPECIFIED ATRIAL FIBRILLATION (6) Anemia Assessment/Plan: -Chronic -workup last admission was negative -hematology consult -Transfuse only if hg<7.0 to avoid fluid overload. Problems reviewed: Yes Code(s): D64.9 - ANEMIA, UNSPECIFIED Assessment/Plan See problem list
[2019-12-12] MEDS ORDERED: MEROPENEM 500 MG VIAL (RESTRICTED TO ID) IVPB ONE (13:01)
[2019-12-12] MEDS ORDERED: DEXTROSE 5%-WATER 100 ML IVPB ONE (13:01)
[2019-12-12] MEDS: CEFAZOLIN 500 MG in DEXTROSE 5%-WATER - 50 ML IVPB SCH ×2 (13:05→22:39)
[2019-12-12] MEDS: MEROPENEM 500 MG in DEXTROSE 5%-WATER 100 ML IVPB SCH (13:14)
--- NOTE | 2019-12-12 14:34 | PN ---
Teaching Attending Note Name of Resident: Wesley Love ATTENDING PHYSICIAN STATEMENT I saw and evaluated the patient. I reviewed the resident's note and discussed the case with the resident. I agree with the resident's findings and plan as documented. SUBJECTIVE: Patient seen and examined in the ICU. Remains intubated, sedated. 2 mcq NE for hemodynamic support. OBJECTIVE: Intake & Output 12/09/19 12/10/19 12/11/19 12/12/19 23:59 23:59 23:59 23:59 Intake Total 300 988.6 1319.0 276.8 Output Total 50 700 1800 1400 Balance 250 288.6 -481.0 -1123.2 Weight 252 lb 6 oz 254 lb 8 oz 253 lb 6 oz Last Vital Signs Temp Pulse Resp BP Pulse Ox 98.8 F 71 26 H 160/63 100 12/12/19 14:00 12/12/19 14:00 12/12/19 14:00 12/12/19 14:00 12/12/19 09:00 Active Medications Albuterol/Ipratropium (Duoneb -) 1 amp NEB Q4H PRN PRN Reason: SHORT OF BREATH/WHEEZING Last Admin: 12/08/19 02:38 Dose: 1 amp Documented by: Apixaban (Eliquis -) 2.5 mg PO BID [facility] Last Admin: 12/12/19 10:38 Dose: 2.5 mg Documented by: Midazolam HCl 100 mg/ Sodium (Chloride) 100 mls @ 1 mls/hr IVPB TITR [facility]; Protocol Last Admin: 12/12/19 06:13 Dose: Not Given Documented by: Vasopressin 40 units/ Sodium (Chloride) 100 mls @ 5 mls/hr IVPB ASDIR [facility]; Protocol Last Admin: 12/12/19 10:30 Dose: Not Given Documented by: Norepinephrine Bitartrate (Levophed Bag) 16,000 mcg in 500 mls @ 9.375 mls/hr IVPB TITR [facility]; Protocol Last Titration: 12/12/19 14:26 Dose: 2 mcg/min, 3.75 mls/hr Documented by: Cefazolin Sodium 500 mg/ (Dextrose) 50 mls @ 100 mls/hr IVPB BID [facility] Last Admin: 12/12/19 13:05 Dose: 100 mls/hr Documented by: Meropenem 500 mg/ Dextrose 100 mls @ 200 mls/hr IVPB Q12H [facility] Last Admin: 12/12/19 13:14 Dose: 200 mls/hr Documented by: Insulin Aspart (Novolog Vial Sliding Scale -) 1 vial SQ ACHS [facility]; Protocol Last Admin: 12/12/19 11:58 Dose: Not Given Documented by: Levetiracetam (Keppra Injection -) 500 mg IVPB BID [facility] Last Admin: 12/12/19 10:38 Dose: 500 mg Documented by: Levothyroxine Sodium (Synthroid Injection -) 20 mcg IVPUSH DAILY [facility] Last Admin: 12/12/19 10:39 Dose: 20 mcg Documented by: Methylprednisolone Sodium Succinate (Solu-Medrol -) 40 mg IVPUSH DAILY [facility] Last Admin: 12/12/19 10:39 Dose: 40 mg Documented by: Mycophenolate Mofetil (Cellcept Suspension -) 500 mg PO BID [facility] Last Admin: 12/12/19 10:38 Dose: 500 mg Documented by: Pantoprazole Sodium (Protonix Iv) 40 mg IVPUSH DAILY [facility] Last Admin: 12/12/19 10:39 Dose: 40 mg Documented by: Rosuvastatin Calcium (Crestor -) 10 mg PO HS [facility] Last Admin: 12/11/19 21:38 Dose: 10 mg Documented by: Tamsulosin HCl (Flomax -) 0.4 mg PO 0830 [facility] Last Admin: 12/11/19 09:09 Dose: 0.4 mg Documented by: Gen: intubated, sedated Heart: RRR Lung: decreased breath sounds at the bases Abd: softly distended, nontender Ext: no edema, multiple ulcers Laboratory Results - last 24 hr 12/11/19 12/11/19 12/11/19 11:00 17:18 20:00 WBC 10.7 H RBC 2.76 L Hgb 8.0 L Hct 25.0 L D MCV 90.6 MCH 29.0 MCHC 32.1 RDW 16.3 H Plt Count 95 L MPV 8.3 Sodium Potassium Chloride Carbon Dioxide Anion Gap BUN Creatinine Est GFR (CKD-EPI)AfAm Est GFR (CKD-EPI)NonAf POC Glucometer 130 Random Glucose Calcium Phosphorus Magnesium Total Bilirubin AST ALT Alkaline Phosphatase Total Protein Albumin Blood Type B POSITIVE Antibody Screen Negative Crossmatch See Detail 12/11/19 12/12/1912/11/20 21:20 05:30 05:30 WBC 11.7 H RBC 2.74 L Hgb 7.9 L Hct 25.0 L MCV 91.1 MCH 28.9 MCHC 31.7 L RDW 16.6 H Plt Count 91 L MPV 8.4 Sodium 142 Potassium 5.7 H Chloride 112 H Carbon Dioxide 18 L Anion Gap 12 BUN 145.8 H* Creatinine 4.3 H Est GFR (CKD-EPI)AfAm 13.96 Est GFR (CKD-EPI)NonAf 12.05 POC Glucometer 136 Random Glucose 161 H Calcium 7.8 L Phosphorus 6.2 H Magnesium 2.1 Total Bilirubin 0.7 AST 15 ALT 20 Alkaline Phosphatase 70 Total Protein 5.5 L Albumin 2.3 L Blood Type Antibody Screen Crossmatch 12/12/19 12/12/19 05:45 11:33 WBC RBC Hgb Hct MCV MCH MCHC RDW Plt Count MPV Sodium Potassium Chloride Carbon Dioxide Anion Gap BUN Creatinine Est GFR (CKD-EPI)AfAm Est GFR (CKD-EPI)NonAf POC Glucometer 145 142 Random Glucose Calcium Phosphorus Magnesium Total Bilirubin AST ALT Alkaline Phosphatase Total Protein Albumin Blood Type Antibody Screen Crossmatch ASSESSMENT AND PLAN: s/p Cardiopulmonary Arrest Acute Hypoxic and Hypercapneic Respiratory Failure Likely Aspiration Pneumonia Septic Shock Acute on Chronic Renal Failure Lactic Acidosis Bullous Pemphigoid CAD LV Diastolic Dysfunction Atrial Fibrillation Seizure Disorder h/o CVA Hypothyroidism Anemia Thrombocytopenia - continue antibiotics - Normal transfusion thresholds - monitor urine output, creatinine - titrate presors to maintain MAP >65 - rate control - taper off steroids - Sedation vacation to assess mental status - continue volume assist control - enteral feeds - DVT/GI prophylaxis - ICU monitoring - prognosis guarded Dr Contreras Critical care time spent in reviewing chart, evaluating patient and formulating plan 35 min Problem List - Problems (1) Bullous pemphigoid Code(s): L12.0 - BULLOUS PEMPHIGOID (2) Generalized weakness Code(s): R53.1 - WEAKNESS (3) Unable to ambulate Code(s): R26.2 - DIFFICULTY IN WALKING, NOT ELSEWHERE CLASSIFIED (4) Blisters of multiple sites Code(s): R23.8 - OTHER SKIN CHANGES (5) Abnormal liver enzymes Code(s): R74.8 - ABNORMAL LEVELS OF OTHER SERUM ENZYMES (6) Wound of foot Code(s): S91.309A - UNSPECIFIED OPEN WOUND, UNSPECIFIED FOOT, INITIAL ENCOUNTER (7) Afib Code(s): I48.91 - UNSPECIFIED ATRIAL FIBRILLATION (8) Anemia Code(s): D64.9 - ANEMIA, UNSPECIFIED Qualifiers: Qualified Code(s): D50.0 - Iron deficiency anemia secondary to blood loss (chronic) (9) BPH (benign prostatic hyperplasia) Code(s): N40.0 - BENIGN PROSTATIC HYPERPLASIA WITHOUT LOWER URINRY TRACT SYMP (10) CAD (coronary artery disease) Code(s): I25.10 - ATHSCL HEART DISEASE OF [place] CORONARY ARTERY W/O ANG PCTRS (11) CHF (congestive heart failure) Code(s): I50.9 - HEART FAILURE, UNSPECIFIED (12) CKD (chronic kidney disease) Code(s): N18.9 - CHRONIC KIDNEY DISEASE, UNSPECIFIED (13) Diabetes mellitus Code(s): E11.9 - TYPE 2 DIABETES MELLITUS WITHOUT COMPLICATIONS (14) Diastolic CHF Code(s): I50.30 - UNSPECIFIED DIASTOLIC (CONGESTIVE) HEART FAILURE (15) Gastritis Code(s): K29.70 - GASTRITIS, UNSPECIFIED, WITHOUT BLEEDING (16) HTN (hypertension) Code(s): I10 - ESSENTIAL (PRIMARY) HYPERTENSION (17) History of colon cancer Code(s): Z85.038 - PERSONAL HISTORY OF MALIGNANT NEOPLASM OF LARGE INTESTINE (18) History of duodenal ulcer Code(s): Z87.19 - PERSONAL HISTORY OF OTHER DISEASES OF THE DIGESTIVE SYSTEM (19) Hyperlipidemia Code(s): E78.5 - HYPERLIPIDEMIA, UNSPECIFIED (20) Hypothyroid Code(s): E03.9 - HYPOTHYROIDISM, UNSPECIFIED (21) Paroxysmal atrial fibrillation Code(s): I48.0 - PAROXYSMAL ATRIAL FIBRILLATION (22) Peripheral arterial disease Code(s): I73.9 - PERIPHERAL VASCULAR DISEASE, UNSPECIFIED (23) Peripheral vascular disease Code(s): I73.9 - PERIPHERAL VASCULAR DISEASE, UNSPECIFIED (24) Pulmonary hypertension Code(s): I27.2 - OTHER SECONDARY PULMONARY HYPERTENSION * DO NOT USE * (25) Seizure Code(s): R56.9 - UNSPECIFIED CONVULSIONS (26) Seizure disorder Code(s): G40.909 - EPILEPSY, UNSP, NOT INTRACTABLE, WITHOUT STATUS EPILEPTICUS
--- NOTE | 2019-12-12 14:35 | PN ---
Progress Note, Physician History of Present Illness: intubated afib with no significant pauses on tele - Current Medication List Current Medications: Active Medications Albuterol/Ipratropium (Duoneb -) 1 amp NEB Q4H PRN PRN Reason: SHORT OF BREATH/WHEEZING Last Admin: 12/08/19 02:38 Dose: 1 amp Documented by: Apixaban (Eliquis -) 2.5 mg PO BID [facility] Last Admin: 12/12/19 10:38 Dose: 2.5 mg Documented by: Midazolam HCl 100 mg/ Sodium (Chloride) 100 mls @ 1 mls/hr IVPB TITR [facility]; Protocol Last Admin: 12/12/19 06:13 Dose: Not Given Documented by: Vasopressin 40 units/ Sodium (Chloride) 100 mls @ 5 mls/hr IVPB ASDIR [facility]; Protocol Last Admin: 12/12/19 10:30 Dose: Not Given Documented by: Norepinephrine Bitartrate (Levophed Bag) 16,000 mcg in 500 mls @ 9.375 mls/hr IVPB TITR [facility]; Protocol Last Titration: 12/12/19 14:26 Dose: 2 mcg/min, 3.75 mls/hr Documented by: Cefazolin Sodium 500 mg/ (Dextrose) 50 mls @ 100 mls/hr IVPB BID [facility] Last Admin: 12/12/19 13:05 Dose: 100 mls/hr Documented by: Meropenem 500 mg/ Dextrose 100 mls @ 200 mls/hr IVPB Q12H [facility] Last Admin: 12/12/19 13:14 Dose: 200 mls/hr Documented by: Insulin Aspart (Novolog Vial Sliding Scale -) 1 vial SQ ACHS [facility]; Protocol Last Admin: 12/12/19 11:58 Dose: Not Given Documented by: Levetiracetam (Keppra Injection -) 500 mg IVPB BID [facility] Last Admin: 12/12/19 10:38 Dose: 500 mg Documented by: Levothyroxine Sodium (Synthroid Injection -) 20 mcg IVPUSH DAILY [facility] Last Admin: 12/12/19 10:39 Dose: 20 mcg Documented by: Methylprednisolone Sodium Succinate (Solu-Medrol -) 40 mg IVPUSH DAILY [facility] Last Admin: 12/12/19 10:39 Dose: 40 mg Documented by: Mycophenolate Mofetil (Cellcept Suspension -) 500 mg PO BID [facility] Last Admin: 12/12/19 10:38 Dose: 500 mg Documented by: Pantoprazole Sodium (Protonix Iv) 40 mg IVPUSH DAILY [facility] Last Admin: 12/12/19 10:39 Dose: 40 mg Documented by: Rosuvastatin Calcium (Crestor -) 10 mg PO HS [facility] Last Admin: 12/11/19 21:38 Dose: 10 mg Documented by: Tamsulosin HCl (Flomax -) 0.4 mg PO 0830 [facility] Last Admin: 12/11/19 09:09 Dose: 0.4 mg Documented by: - Objective Vital Signs: Vital Signs Temperature 98.8 F 12/12/19 14:00 Pulse Rate 71 12/12/19 14:00 Respiratory Rate 26 H 12/12/19 14:00 Blood Pressure 160/63 12/12/19 14:00 O2 Sat by Pulse Oximetry (%) 100 12/12/19 09:00 Neck: Yes: Supple Cardiovascular: Yes: Pulse Irregular, S1, S2 Respiratory: Yes: Mechanically Ventilated Gastrointestinal: Yes: Soft Edema: LLE: 1+, RLE: 1+ Labs: CBC, BMP 12/12/19 05:30 12/12/19 05:30 Problem List - Problems (1) Afib Code(s): I48.91 - UNSPECIFIED ATRIAL FIBRILLATION (2) CAD (coronary artery disease) Code(s): I25.10 - ATHSCL HEART DISEASE OF [place] CORONARY ARTERY W/O ANG PCTRS (3) CHF (congestive heart failure) Code(s): I50.9 - HEART FAILURE, UNSPECIFIED Assessment/Plan 79 year old male with a pmhx of anemia, diastolic chf, afib on apixaban, cad s/p pci, htn, hld, cva, ckd, hypothyroidism, and bullous pemphigoid presenting with weakness. CXR cardiomegaly, vascular congestion EKG: afib with VR 60bpm, anterolateral infarct Echocardiogram LVEF 50-55%, no significant valve disease. 1) Shock/possible aspiration pna Intubated and vent support On levophed to maintain MAP over 65. Levophed being titrated down/off HR on monitor stable afib with no significant pauses today. Abx as per primary team COVID negative x2. CXR b/l infiltrates LETITIA possible ATN. Rising Cr but with good urine output. Prefer net negative and consider furosemide if needed On apixaban and monitor h/h. Stable today but got transfusion yesterday If any acute bleeding would hold apixaban Will sign off at this time.
[2019-12-12] MEDS ORDERED: PT OWN MED DRAWER 7, Y5N ONE (22:05)
[2019-12-12] MEDS: ROSUVASTATIN CA 10 MG TABLET (FP) PO SCH (22:39)
[2019-12-13] MEDS ORDERED: MEROPENEM 500 MG VIAL (RESTRICTED TO ID) IVPB ONE ×3 (00:17→23:22)
[2019-12-13] MEDS ORDERED: DEXTROSE 5%-WATER 100 ML IVPB ONE ×3 (00:18→23:23)
[2019-12-13] MEDS ORDERED: MIDAZOLAM IN 0.9 % SOD.CHLORID 1 MG/1 ML PLAST..BAG ONE (00:19)
[2019-12-13] MEDS: MEROPENEM 500 MG in DEXTROSE 5%-WATER 100 ML IVPB SCH ×2 (01:04→13:48)
[2019-12-13 06:30] LABS: HEMOGLOBIN 7.5 GM/dL (11.7-16.9); MCH 29.2 pg (25.7-33.7); MCHC 32.4 g/dl (32.0-35.9); MEAN CELL VOLUME 89.9 fl (80-96); MEAN PLT VOLUME 8.4 fl (7.5-11.1); PLATELET COUNT 84 K/MM3 (134-434); RBC 2.56 M/mm3 (4.00-5.60); RDW 16.8 % (11.9-15.9); WHITE BLOOD COUNT 8.8 K/mm3 (4.0-10.0)
[2019-12-13 06:56] LABS: ALBUMIN 2.3 g/dl (3.4-5.0); BILIRUBIN,TOTAL 0.7 mg/dL (0.2-1); CALCIUM 7.8 mg/dL (8.5-10.1); CREATININE 4.6 mg/dL (0.55-1.3); MAGNESIUM 2.2 mg/dL (1.8-2.4); PHOSPHOROUS 5.5 mg/dL (2.5-4.9); POTASSIUM 5.5 mmol/L (3.5-5.1); TOT PROT 5.4 g/dl (6.4-8.2)
[2019-12-13] MEDS: MIDAZOLAM 100 MG in SODIUM CHLORIDE 100 ML IVPB SCH (07:51)
[2019-12-13] MEDS: NOREPINEPHRINE D5W PREMIX 16,000 MCG/500 ML BAG IVPB SCH ×2 (07:52→09:33)
[2019-12-13] MEDS: VASOPRESSIN 40 UNITS in SODIUM CHLORIDE 98 ML IVPB SCH (07:52)
[2019-12-13] MEDS: INSULIN SLIDING SCALE (NOVOLOG) 1 VIAL SQ SCH ×4 (07:53→22:42)
[2019-12-13] MEDS ORDERED: PT OWN MED DRAWER 7, Y5N ONE ×2 (09:29→13:46)
[2019-12-13] MEDS: APIXABAN 2.5 MG TABLET PO SCH ×2 (09:37→22:24)
[2019-12-13] MEDS: levETIRAcetam 500 MG/5 ML INJECTION VIAL IVPB SCH ×2 (09:37→22:24)
[2019-12-13] MEDS: MYCOPHENOLATE MOFETIL 200 MG/ML SUSPENSION PO SCH ×2 (09:37→22:21)
[2019-12-13] MEDS: methylPREDNISolone NA SUCC 40 MG/1 ML VIAL IVPUSH SCH (09:38)
[2019-12-13] MEDS: LEVOTHYROXINE SODIUM 100 MCG VIAL IVPUSH SCH (09:38)
[2019-12-13] MEDS: PANTOPRAZOLE SODIUM 40 MG VIAL IVPUSH SCH (09:38)
--- NOTE | 2019-12-13 09:39 | PN ---
Progress Note (short form) - Note Progress Note: remains intubated and sedated Vital Signs Period Temp Pulse Resp BP Sys/Hair Pulse Ox Last 24 Hr 98.2 F-99.2 F 67-85 26-26 134-160/40-75 93-98 cor-rrr lungs decreased bs at bases abd soft, multiple open skin lesions ext trace edema CBC, BMP 12/13/19 05:45 12/13/19 05:45 Microbiology 12/08/19 08:50 Blood - Peripheral Venous Blood Culture - Final NO GROWTH AFTER 5 DAYS INCUBATION 12/08/19 08:45 Blood - Peripheral Venous Blood Culture - Final NO GROWTH AFTER 5 DAYS INCUBATION 12/07/19 19:10 Blood - Peripheral Venous Blood Culture - Final NO GROWTH AFTER 5 DAYS INCUBATION 12/07/19 14:00 Blood - Peripheral Venous Blood Culture - Final Staphylococcus Aureus Corynebacterium Striatum 12/09/19 15:30 Sputum - Endotrachea Suction/Ventilator Gram Stain - Final 12/09/19 15:30 Sputum - Endotrachea Suction/Ventilator Sputum Culture - Final Pseudomonas Aeruginosa 12/11/19 00:01 Urine - Urine Duvall Urine Culture - Final NO GROWTH OBTAINED 12/08/19 16:30 Urine - Urine Clean Catch Urine Culture - Final Contaminated: Please Repeat a/p s/p cardiopulmonary arrest MSSA bacteremia PROBABLE SKIN SOURCE ACUTE RESP FAILURE PNEUMOMIA + SPUTUM C/S MEROPENEM acute renal failure worsening, f/u per renal BULOUS PEMPHIGOID switched to meropenem and cefazolin yesterday will continue overall prognosis is poor
--- NOTE | 2019-12-13 11:16 | PN ---
Progress Note, Physician Chief Complaint: PATIENT SEEN IN ICU INTUBATED AND SEDATED EVENTS AND NOTES REVIEWED - Current Medication List Current Medications: Active Medications Albuterol/Ipratropium (Duoneb -) 1 amp NEB Q4H PRN PRN Reason: SHORT OF BREATH/WHEEZING Last Admin: 12/08/19 02:38 Dose: 1 amp Documented by: Apixaban (Eliquis -) 2.5 mg PO BID [facility] Last Admin: 12/13/19 09:37 Dose: 2.5 mg Documented by: Midazolam HCl 100 mg/ Sodium (Chloride) 100 mls @ 1 mls/hr IVPB TITR [facility]; Protocol Last Admin: 12/13/19 07:51 Dose: Not Given Documented by: Vasopressin 40 units/ Sodium (Chloride) 100 mls @ 5 mls/hr IVPB ASDIR [facility]; Protocol Last Admin: 12/13/19 07:52 Dose: Not Given Documented by: Norepinephrine Bitartrate (Levophed Bag) 16,000 mcg in 500 mls @ 9.375 mls/hr IVPB TITR [facility]; Protocol Last Admin: 12/13/19 09:33 Dose: Not Given Documented by: Cefazolin Sodium 500 mg/ (Dextrose) 50 mls @ 100 mls/hr IVPB BID [facility] Last Admin: 12/12/19 22:39 Dose: 100 mls/hr Documented by: Meropenem 500 mg/ Dextrose 100 mls @ 200 mls/hr IVPB Q12H [facility] Last Admin: 12/13/19 01:04 Dose: 200 mls/hr Documented by: Insulin Aspart (Novolog Vial Sliding Scale -) 1 vial SQ ACHS [facility]; Protocol Last Admin: 12/13/19 07:53 Dose: Not Given Documented by: Levetiracetam (Keppra Injection -) 500 mg IVPB BID [facility] Last Admin: 12/13/19 09:37 Dose: 500 mg Documented by: Levothyroxine Sodium (Synthroid Injection -) 20 mcg IVPUSH DAILY [facility] Last Admin: 12/13/19 09:38 Dose: 20 mcg Documented by: Methylprednisolone Sodium Succinate (Solu-Medrol -) 40 mg IVPUSH DAILY [facility] Last Admin: 12/13/19 09:38 Dose: 40 mg Documented by: Mycophenolate Mofetil (Cellcept Suspension -) 500 mg PO BID [facility] Last Admin: 12/13/19 09:37 Dose: 500 mg Documented by: Pantoprazole Sodium (Protonix Iv) 40 mg IVPUSH DAILY [facility] Last Admin: 12/13/19 09:38 Dose: 40 mg Documented by: Rosuvastatin Calcium (Crestor -) 10 mg PO HS [facility] Last Admin: 12/12/19 22:39 Dose: 10 mg Documented by: Tamsulosin HCl (Flomax -) 0.4 mg PO 0830 [facility] Last Admin: 12/11/19 09:09 Dose: 0.4 mg Documented by: - Objective Vital Signs: Vital Signs Temperature 99.2 F 12/13/19 06:00 Pulse Rate 72 12/13/19 08:30 Respiratory Rate 26 H 12/13/19 10:00 Blood Pressure 155/66 12/13/19 06:00 O2 Sat by Pulse Oximetry (%) 93 L 12/13/19 08:30 Constitutional: Yes: Other Cardiovascular: Yes: Pulse Irregular Respiratory: Yes: Diminished, Mechanically Ventilated Gastrointestinal: Yes: Abdomen, Obese Genitourinary: Yes: [place]vall Present Labs: CBC, BMP 12/13/19 05:45 12/13/19 05:45 Problem List - Problems (1) Acute respiratory failure Code(s): J96.00 - ACUTE RESPIRATORY FAILURE, UNSP W HYPOXIA OR HYPERCAPNIA (2) Bullous pemphigoid Code(s): L12.0 - BULLOUS PEMPHIGOID (3) Diabetic ulcer of right foot Code(s): E11.621 - TYPE 2 DIABETES MELLITUS WITH FOOT ULCER; L97.519 - NON-PRS CHRONIC ULCER OTH PRT RIGHT FOOT W UNSP SEVERITY (4) Acute on chronic renal insufficiency Code(s): N28.9 - DISORDER OF KIDNEY AND URETER, UNSPECIFIED; N18.9 - CHRONIC KIDNEY DISEASE, UNSPECIFIED (5) Acute on chronic systolic congestive heart failure Code(s): I50.23 - ACUTE ON CHRONIC SYSTOLIC (CONGESTIVE) HEART FAILURE (6) Afib Code(s): I48.91 - UNSPECIFIED ATRIAL FIBRILLATION Assessment/Plan IV ABX PER ID BP SUPPORT ON PRESSURE IV WITH PARAMETERS INSTRUCTED FOR TAPER CARLOS FULL CODE POOR OVERALL PROGNOSIS MONITOR LABS/RENAL FUNCTION DVT PROPHYLAXIS
[2019-12-13] MEDS: CEFAZOLIN 500 MG in DEXTROSE 5%-WATER - 50 ML IVPB SCH ×2 (11:30→22:23)
--- NOTE | 2019-12-13 13:33 | PN ---
Progress Note (short form) - Note Progress Note: PULM/CCM Patient seen and examined in the ICU. Remains intubated, sedated. Off all pressors. Active Medications Albuterol/Ipratropium (Duoneb -) 1 amp NEB Q4H PRN PRN Reason: SHORT OF BREATH/WHEEZING Last Admin: 12/08/19 02:38 Dose: 1 amp Documented by: Apixaban (Eliquis -) 2.5 mg PO BID [facility] Last Admin: 12/13/19 09:37 Dose: 2.5 mg Documented by: Midazolam HCl 100 mg/ Sodium (Chloride) 100 mls @ 1 mls/hr IVPB TITR [facility]; Protocol Last Admin: 12/13/19 07:51 Dose: Not Given Documented by: Vasopressin 40 units/ Sodium (Chloride) 100 mls @ 5 mls/hr IVPB ASDIR [facility]; Protocol Last Admin: 12/13/19 07:52 Dose: Not Given Documented by: Norepinephrine Bitartrate (Levophed Bag) 16,000 mcg in 500 mls @ 9.375 mls/hr IVPB TITR [facility]; Protocol Last Admin: 12/13/19 09:33 Dose: Not Given Documented by: Cefazolin Sodium 500 mg/ (Dextrose) 50 mls @ 100 mls/hr IVPB BID [facility] Last Admin: 12/12/19 22:39 Dose: 100 mls/hr Documented by: Meropenem 500 mg/ Dextrose 100 mls @ 200 mls/hr IVPB Q12H [facility] Last Admin: 12/13/19 01:04 Dose: 200 mls/hr Documented by: Insulin Aspart (Novolog Vial Sliding Scale -) 1 vial SQ ACHS [facility]; Protocol Last Admin: 12/13/19 07:53 Dose: Not Given Documented by: Levetiracetam (Keppra Injection -) 500 mg IVPB BID [facility] Last Admin: 12/13/19 09:37 Dose: 500 mg Documented by: Levothyroxine Sodium (Synthroid Injection -) 20 mcg IVPUSH DAILY [facility] Last Admin: 12/13/19 09:38 Dose: 20 mcg Documented by: Methylprednisolone Sodium Succinate (Solu-Medrol -) 40 mg IVPUSH DAILY [facility] Last Admin: 12/13/19 09:38 Dose: 40 mg Documented by: Mycophenolate Mofetil (Cellcept Suspension -) 500 mg PO BID [facility] Last Admin: 12/13/19 09:37 Dose: 500 mg Documented by: Pantoprazole Sodium (Protonix Iv) 40 mg IVPUSH DAILY [facility] Last Admin: 12/13/19 09:38 Dose: 40 mg Documented by: Rosuvastatin Calcium (Crestor -) 10 mg PO HS [facility] Last Admin: 12/12/19 22:39 Dose: 10 mg Documented by: Tamsulosin HCl (Flomax -) 0.4 mg PO 0830 [facility] Last Admin: 12/11/19 09:09 Dose: 0.4 mg Documented by: Vital Signs Period Temp Pulse Resp BP Sys/Hair Pulse Ox Last 24 Hr 98.2 F-99.2 F 67-85 - 148-160/40-75 93-98 Intake & Output 12/10/19 12/11/19 12/12/19 12/13/19 23:59 23:59 23:59 23:59 Intake Total 988.6 1319.0 1075.2 545 Output Total 700 1800 2300 1250 Balance 288.6 -481.0 -1224.8 -705 Weight 114.475 kg 115.439 kg 114.929 kg 114.429 kg Gen: intubated, sedated Heart: RRR Lung: decreased breath sounds at the bases Abd: softly distended, nontender Ext: + Pulses, multiple ulcers LE > UE, +2 edema CBC, BMP 12/13/19 05:45 12/13/19 05:45 Microbiology 12/08/19 08:50 Blood - Peripheral Venous Blood Culture - Final NO GROWTH AFTER 5 DAYS INCUBATION 12/08/19 08:45 Blood - Peripheral Venous Blood Culture - Final NO GROWTH AFTER 5 DAYS INCUBATION 12/07/19 19:10 Blood - Peripheral Venous Blood Culture - Final NO GROWTH AFTER 5 DAYS INCUBATION 12/07/19 14:00 Blood - Peripheral Venous Blood Culture - Final Staphylococcus Aureus Corynebacterium Striatum 12/09/19 15:30 Sputum - Endotrachea Suction/Ventilator Gram Stain - Final 12/09/19 15:30 Sputum - Endotrachea Suction/Ventilator Sputum Culture - Final Pseudomonas Aeruginosa 12/11/19 00:01 Urine - Urine [place] Urine Culture - Final NO GROWTH OBTAINED 12/08/19 16:30 Urine - Urine Clean Catch Urine Culture - Final Contaminated: Please Repeat RECENT STUDIES TO NOTE: CXR 12/11: No definite interval change is identified in comparison to a prior exam performed 12 hours earlier. Endotracheal tube position appears satisfactory approximately 4 cm from the tracheal bifurcation. Pulmonary vascular congestion is noted with possible pulmonary edema. Note is also made of persistent left upper lobe alveolar opacity which could be on the basis of an infiltrate versus asymmetric pulmonary edema. Correlate clinically. Small bilateral pleural effusions. Enlargement of the cardiac silhouette is again seen. The mediastinum and javier demonstrate no gross pathology. Right internal jugular venous catheter in place as on the prior exam. ASSESS: s/p Cardiopulmonary Arrest Acute Hypoxic and Hypercapneic Respiratory Failure Likely Aspiration Pneumonia Septic Shock Acute on Chronic Renal Failure Lactic Acidosis Bullous Pemphigoid CAD LV Diastolic Dysfunction Atrial Fibrillation Seizure Disorder h/o CVA Hypothyroidism Anemia Thrombocytopenia PLAN: - continue antibiotics - Normal transfusion thresholds - monitor urine output, creatinine - titrate presors to maintain MAP >65 - rate control - taper off steroids - Sedation vacation to assess mental status - continue volume assist control - enteral feeds - DVT/GI prophylaxis - ICU monitoring - prognosis guarded [facility] ICU PULM/CCM [id number]
--- NOTE | 2019-12-13 15:27 | PN ---
Progress Note, Physician History of Present Illness: Pt seen and examined at bedside. He remains in the ICU. He remains intubated. - Current Medication List Current Medications: Active Medications Albuterol/Ipratropium (Duoneb -) 1 amp NEB Q4H PRN PRN Reason: SHORT OF BREATH/WHEEZING Last Admin: 12/08/19 02:38 Dose: 1 amp Documented by: Apixaban (Eliquis -) 2.5 mg PO BID [facility] Last Admin: 12/13/19 09:37 Dose: 2.5 mg Documented by: Midazolam HCl 100 mg/ Sodium (Chloride) 100 mls @ 1 mls/hr IVPB TITR [facility]; Protocol Last Admin: 12/13/19 07:51 Dose: Not Given Documented by: Vasopressin 40 units/ Sodium (Chloride) 100 mls @ 5 mls/hr IVPB ASDIR [facility]; Protocol Last Admin: 12/13/19 07:52 Dose: Not Given Documented by: Norepinephrine Bitartrate (Levophed Bag) 16,000 mcg in 500 mls @ 9.375 mls/hr IVPB TITR [facility]; Protocol Last Admin: 12/13/19 09:33 Dose: Not Given Documented by: Cefazolin Sodium 500 mg/ (Dextrose) 50 mls @ 100 mls/hr IVPB BID [facility] Last Admin: 12/13/19 11:30 Dose: 100 mls/hr Documented by: Meropenem 500 mg/ Dextrose 100 mls @ 200 mls/hr IVPB Q12H [facility] Last Admin: 12/13/19 13:48 Dose: 200 mls/hr Documented by: Insulin Aspart (Novolog Vial Sliding Scale -) 1 vial SQ ACHS [facility]; Protocol Last Admin: 12/13/19 13:53 Dose: Not Given Documented by: Levetiracetam (Keppra Injection -) 500 mg IVPB BID [facility] Last Admin: 12/13/19 09:37 Dose: 500 mg Documented by: Levothyroxine Sodium (Synthroid Injection -) 20 mcg IVPUSH DAILY [facility] Last Admin: 12/13/19 09:38 Dose: 20 mcg Documented by: Methylprednisolone Sodium Succinate (Solu-Medrol -) 20 mg IVPUSH DAILY [facility] Mycophenolate Mofetil (Cellcept Suspension -) 500 mg PO BID [facility] Last Admin: 12/13/19 09:37 Dose: 500 mg Documented by: Pantoprazole Sodium (Protonix Iv) 40 mg IVPUSH DAILY [facility] Last Admin: 12/13/19 09:38 Dose: 40 mg Documented by: Rosuvastatin Calcium (Crestor -) 10 mg PO HS [facility] Last Admin: 12/12/19 22:39 Dose: 10 mg Documented by: Tamsulosin HCl (Flomax -) 0.4 mg PO 0830 [facility] Last Admin: 12/11/19 09:09 Dose: 0.4 mg Documented by: - Objective Vital Signs: Vital Signs Temperature 98.4 F 12/13/19 14:00 Pulse Rate 67 12/13/19 14:00 Respiratory Rate 26 H 12/13/19 14:00 Blood Pressure 170/54 L 12/13/19 14:00 O2 Sat by Pulse Oximetry (%) 93 L 12/13/19 08:30 Constitutional: Yes: Calm Cardiovascular: Yes: S1, S2 Respiratory: Yes: Mechanically Ventilated Gastrointestinal: Yes: Soft Genitourinary: Yes: Duvall Present Musculoskeletal: Yes: Muscle Weakness Edema: Yes Edema: LUE: 1+, RUE: 1+, LLE: 2+, RLE: 2+ Integumentary: Yes: Other (bullous pemphigoid) Neurological: Yes: Lethargy Labs: CBC, BMP 12/13/19 05:45 12/13/19 05:45 Problem List - Problems (1) Acute respiratory failure Code(s): J96.00 - ACUTE RESPIRATORY FAILURE, UNSP W HYPOXIA OR HYPERCAPNIA (2) Bullous pemphigoid Code(s): L12.0 - BULLOUS PEMPHIGOID Assessment/Plan Current Medications Generic Name Dose Route Start Last Admin Trade Name Freq PRN Reason Stop Dose Admin Albuterol/Ipratropium 1 amp 12/07/19 13:25 12/08/19 02:38 Duoneb - NEB 1 amp Q4H PRN Administration SHORT OF BREATH/WHEEZING Apixaban 2.5 mg 12/10/19 22:00 12/13/19 09:37 Eliquis - PO 2.5 mg BID [facility] Administration Midazolam HCl 100 mg/ Sodium 100 mls @ 1 mls/hr 12/09/19 06:45 12/13/19 07:51 Chloride IVPB Not Given TITR [facility] Protocol 1 MG/HR Vasopressin 40 units/ Sodium 100 mls @ 5 mls/hr 12/09/19 07:30 12/13/19 07:52 Chloride IVPB Not Given ASDIR [facility] Protocol 2 UNITS/HR Norepinephrine Bitartrate 16,000 mcg in 500 mls @ 9.375 mls/hr 12/09/19 08:30 12/13/19 09:33 Levophed Bag IVPB Not Given TITR [facility] Protocol 5 MCG/MIN Cefazolin Sodium 500 mg/ 50 mls @ 100 mls/hr 12/12/19 12:45 12/13/19 11:30 Dextrose IVPB 100 mls/hr BID [facility] Administration Meropenem 500 mg/ Dextrose 100 mls @ 200 mls/hr 12/12/19 12:45 12/13/19 13:48 IVPB 200 mls/hr Q12H [facility] Administration Insulin Aspart 1 vial 12/10/19 07:00 12/13/19 13:53 Novolog Vial Sliding Scale - SQ Not Given ACHS [facility] Protocol Levetiracetam 500 mg 12/09/19 10:00 12/13/19 09:37 Keppra Injection - IVPB 500 mg BID [facility] Administration Levothyroxine Sodium 20 mcg 12/09/19 10:00 12/13/19 09:38 Synthroid Injection - IVPUSH 20 mcg DAILY [facility] Administration Methylprednisolone Sodium Succinate 20 mg 12/14/19 10:00 Solu-Medrol - IVPUSH DAILY [facility] Mycophenolate Mofetil 500 mg 12/10/19 22:00 12/13/19 09:37 Cellcept Suspension - PO 500 mg BID [facility] Administration Pantoprazole Sodium 40 mg 12/09/19 10:00 12/13/19 09:38 Protonix Iv IVPUSH 40 mg DAILY [facility] Administration Rosuvastatin Calcium 10 mg 12/07/19 22:00 12/12/19 22:39 Crestor - PO 10 mg HS [facility] Administration Tamsulosin HCl 0.4 mg 12/08/19 08:30 12/11/19 09:09 Flomax - PO 0.4 mg 0830 [facility] Administration Impression 1. CKD 2. CHF 3. BPH 4. a. fib 5. CAD 6. epilepsy 7. proteinuria 8. anemia 9. foot ulcer 10. abd wall cellulitis 11. bullous pemphigoid 12. LETITIA 13. hyperkalemia 14. cardiac arrest 15. resp failure on vent 16. r/o aspiration Plan - cont pressors to map 65 - will stat lokelma - lasix for volume control - will need to discuss GOC with family - cont to asses mental status - cont vent support - pt is making urine - discussed with ICU team - letitia on ckd likely atn post cardiac arrest
[2019-12-13] MEDS ORDERED: SODIUM BICARBONATE 8.4% 50 MEQ/50 ML DISP.SYRIN IVPUSH ONE (15:28)
[2019-12-13] MEDS ORDERED: FUROSEMIDE 100 MG/10 ML INJECTABLE VIAL IVPB ONE (15:28)
[2019-12-13] MEDS ORDERED: METOLAZONE 5 MG TABLET PO ONE (15:33)
[2019-12-13] MEDS: SODIUM ZIRCONIUM CYCLOSILICATE (LOKELMA) 5 GM PACKET PO SCH (16:09)
[2019-12-13] MEDS: ROSUVASTATIN CA 10 MG TABLET (FP) PO SCH (22:24)
[2019-12-14] MEDS: MEROPENEM 500 MG in DEXTROSE 5%-WATER 100 ML IVPB SCH ×2 (00:16→12:02)
[2019-12-14 07:05] LABS: ALBUMIN 2.4 g/dl (3.4-5.0); ANION GAP 13 MMOL/L (8-16); CHLORIDE 111 mmol/L (98-107); CO2 22 mmol/L (21-32); CREATININE 4.7 mg/dL (0.55-1.3); GLUCOSE,RANDOM 144 mg/dL (74-106); MAGNESIUM 2.3 mg/dL (1.8-2.4); POTASSIUM 5.3 mmol/L (3.5-5.1); SGOT/AST 17 U/L (15-37); SGPT/ALT 16 U/L (13-61); SODIUM 146 mmol/L (136-145)
[2019-12-14 07:06] LABS: ALK PHOS 67 U/L (45-117); BILIRUBIN,TOTAL 0.7 mg/dL (0.2-1); PHOSPHOROUS 5.9 mg/dL (2.5-4.9); TOT PROT 5.7 g/dl (6.4-8.2)
[2019-12-14 07:09] LABS: HEMATOCRIT 24.2 % (35.4-49); HEMOGLOBIN 7.9 GM/dL (11.7-16.9); MCH 29.4 pg (25.7-33.7); MCHC 32.7 g/dl (32.0-35.9); MEAN CELL VOLUME 89.9 fl (80-96); MEAN PLT VOLUME 8.4 fl (7.5-11.1); PLATELET COUNT 90 K/MM3 (134-434); RBC 2.69 M/mm3 (4.00-5.60); RDW 16.6 % (11.9-15.9); WHITE BLOOD COUNT 8.3 K/mm3 (4.0-10.0)
[2019-12-14] MEDS: INSULIN SLIDING SCALE (NOVOLOG) 1 VIAL SQ SCH ×4 (07:14→23:15)
[2019-12-14 07:36] LABS: BLOOD UREA NITROGEN > 150.0 mg/dL (7-18)
[2019-12-14] MEDS: MIDAZOLAM 100 MG in SODIUM CHLORIDE 100 ML IVPB SCH (07:39)
[2019-12-14] MEDS: VASOPRESSIN 40 UNITS in SODIUM CHLORIDE 98 ML IVPB SCH (07:39)
[2019-12-14] MEDS: NOREPINEPHRINE D5W PREMIX 16,000 MCG/500 ML BAG IVPB SCH (09:11)
[2019-12-14] MEDS ORDERED: INSULIN REGULAR HUMAN 100 UNITS/ML *VIAL IVPUSH ONE (09:20)
[2019-12-14] MEDS ORDERED: DEXTROSE 50%-WATER - 25 GM/50 ML VIAL IVPUSH ONE (09:21)
--- NOTE | 2019-12-14 09:21 | PN ---
Progress Note (short form) - Note Progress Note: PULM/CCM Patient seen and examined in the ICU. Remains intubated, sedated on versed Vital Signs Period Temp Pulse Resp BP Sys/Hair Pulse Ox Last 24 Hr 94.7 F-98.4 F 48-87 20-26 124-170/49-84 97-100 Intake & Output 12/11/19 12/12/19 12/13/19 12/14/19 23:59 23:59 23:59 23:59 Intake Total 1319.0 1075.2 1841 62 Output Total 1800 2300 2450 1600 Balance -481.0 -1224.8 -599 -1538 Weight 115.439 kg 114.929 kg 114.429 kg 110.903 kg Gen: intubated, sedated Heart: RRR Lung: decreased breath sounds at the bases Abd: softly distended, nontender Ext: + Pulses, multiple ulcers LE > UE, +2 edema CBC, BMP 12/14/19 06:12 12/14/19 06:12 Microbiology 12/08/19 08:50 Blood - Peripheral Venous Blood Culture - Final NO GROWTH AFTER 5 DAYS INCUBATION 12/08/19 08:45 Blood - Peripheral Venous Blood Culture - Final NO GROWTH AFTER 5 DAYS INCUBATION 12/07/19 19:10 Blood - Peripheral Venous Blood Culture - Final NO GROWTH AFTER 5 DAYS INCUBATION 12/07/19 14:00 Blood - Peripheral Venous Blood Culture - Final Staphylococcus Aureus Corynebacterium Striatum 12/09/19 15:30 Sputum - Endotrachea Suction/Ventilator Gram Stain - Final 12/09/19 15:30 Sputum - Endotrachea Suction/Ventilator Sputum Culture - Final Pseudomonas Aeruginosa 12/11/19 00:01 Urine - Urine Duvall Urine Culture - Final NO GROWTH OBTAINED 12/08/19 16:30 Urine - Urine Clean Catch Urine Culture - Final Contaminated: Please Repeat ASSESS: s/p Cardiopulmonary Arrest Acute Hypoxic and Hypercapneic Respiratory Failure Likely Aspiration Pneumonia Septic Shock Acute on Chronic Renal Failure Lactic Acidosis Bullous Pemphigoid CAD LV Diastolic Dysfunction Atrial Fibrillation Seizure Disorder h/o CVA Hypothyroidism Anemia Thrombocytopenia PLAN: - Titrate FiO2 for sao2 >92% - continue volume assist control - Sedation vacation to assess mental status - Added dilaudid PRN for pain control - continue antibiotics - Normal transfusion thresholds - monitor urine output, creatinine - titrate presors to maintain MAP >65 - taper off steroids - Possible HD as per renal - enteral feeds - DVT/GI prophylaxis - ICU monitoring - prognosis guarded *AFIB with bradycardia, lowest 34 bpm. Patient is hypothermic 34 C. Will apply warming blanket, monitor electrolytes* Discussion re GOC and possible HD tomorrow SARANYA Keith-EMILIANA [facility] ICU PULM/CCM [id number]
--- NOTE | 2019-12-14 09:28 | PN ---
Progress Note (short form) - Note Progress Note: remains intubated and sedated Vital Signs Period Temp Pulse Resp BP Sys/Hair Pulse Ox Last 24 Hr 97.5 F-98.4 F 67-87 20-26 133-170/54-84 97-100 cor-rrr lungs decreased bs at bases abd soft,nt ext no edema skin lesions unchanged CBC, BMP 12/14/19 06:12 12/14/19 06:12 Microbiology 12/08/19 08:50 Blood - Peripheral Venous Blood Culture - Final NO GROWTH AFTER 5 DAYS INCUBATION 12/08/19 08:45 Blood - Peripheral Venous Blood Culture - Final NO GROWTH AFTER 5 DAYS INCUBATION 12/07/19 19:10 Blood - Peripheral Venous Blood Culture - Final NO GROWTH AFTER 5 DAYS INCUBATION 12/07/19 14:00 Blood - Peripheral Venous Blood Culture - Final Staphylococcus Aureus Corynebacterium Striatum 12/09/19 15:30 Sputum - Endotrachea Suction/Ventilator Gram Stain - Final 12/09/19 15:30 Sputum - Endotrachea Suction/Ventilator Sputum Culture - Final Pseudomonas Aeruginosa 12/11/19 00:01 Urine - Urine Duvall Urine Culture - Final NO GROWTH OBTAINED 12/08/19 16:30 Urine - Urine Clean Catch Urine Culture - Final Contaminated: Please Repeat a/p s/p cardiopulmonary arrest MSSA bacteremia PROBABLE SKIN SOURCE ACUTE RESP FAILURE PNEUMOMIA + SPUTUM C/S MEROPENEM acute renal failure worsening, f/u per renal BULOUS PEMPHIGOID continue cefazolin and meropenem overall prognosis is poor
[2019-12-14] MEDS ORDERED: MEROPENEM 500 MG VIAL (RESTRICTED TO ID) IVPB ONE (09:33)
[2019-12-14] MEDS ORDERED: DEXTROSE 5%-WATER 100 ML IVPB ONE (09:33)
[2019-12-14] MEDS ORDERED: PT OWN MED DRAWER 7, Y5N ONE ×2 (09:34→21:02)
[2019-12-14] MEDS ORDERED: DEXTROSE 50%-WATER 25 GM/50 ML DISP.SYRIN ONE (09:51)
[2019-12-14] MEDS: SODIUM ZIRCONIUM CYCLOSILICATE (LOKELMA) 5 GM PACKET PO SCH (10:28)
[2019-12-14] MEDS: HYDROmorphone HCl 2 MG/ML VIAL IVPUSH PRN ×2 (10:28→21:09)
[2019-12-14] MEDS: LEVOTHYROXINE SODIUM 100 MCG VIAL IVPUSH SCH (10:28)
[2019-12-14] MEDS: APIXABAN 2.5 MG TABLET PO SCH ×2 (10:28→21:42)
[2019-12-14] MEDS: levETIRAcetam 500 MG/5 ML INJECTION VIAL IVPB SCH ×2 (10:28→21:42)
[2019-12-14] MEDS: methylPREDNISolone NA SUCC 40 MG/1 ML VIAL IVPUSH SCH (10:28)
[2019-12-14] MEDS: MYCOPHENOLATE MOFETIL 200 MG/ML SUSPENSION PO SCH ×2 (10:28→21:42)
[2019-12-14] MEDS: PANTOPRAZOLE SODIUM 40 MG VIAL IVPUSH SCH (10:28)
[2019-12-14] MEDS: CEFAZOLIN 500 MG in DEXTROSE 5%-WATER - 50 ML IVPB SCH ×2 (10:28→21:42)
--- NOTE | 2019-12-14 11:00 | PN ---
Progress Note, Physician Chief Complaint: STILL INTUBATED UNABLE TO WEAN OFF VENT OVERNIGHT IN ICU, ON CARDIAC MONITORING SEDATED - Current Medication List Current Medications: Active Medications Albuterol/Ipratropium (Duoneb -) 1 amp NEB Q4H PRN PRN Reason: SHORT OF BREATH/WHEEZING Last Admin: 12/08/19 02:38 Dose: 1 amp Documented by: Apixaban (Eliquis -) 2.5 mg PO BID [facility] Last Admin: 12/14/19 10:28 Dose: 2.5 mg Documented by: Hydromorphone HCl (Dilaudid Vial -) 4 mg IVPUSH Q4H PRN PRN Reason: PAIN LEVEL 4 - 6 Last Admin: 12/14/19 10:28 Dose: 4 mg Documented by: Midazolam HCl 100 mg/ Sodium (Chloride) 100 mls @ 1 mls/hr IVPB TITR [facility]; Protocol Last Admin: 12/14/19 07:39 Dose: Not Given Documented by: Vasopressin 40 units/ Sodium (Chloride) 100 mls @ 5 mls/hr IVPB ASDIR [facility]; Protocol Last Admin: 12/14/19 07:39 Dose: Not Given Documented by: Norepinephrine Bitartrate (Levophed Bag) 16,000 mcg in 500 mls @ 9.375 mls/hr IVPB TITR [facility]; Protocol Last Admin: 12/14/19 09:11 Dose: Not Given Documented by: Cefazolin Sodium 500 mg/ (Dextrose) 50 mls @ 100 mls/hr IVPB BID [facility] Last Admin: 12/14/19 10:28 Dose: 100 mls/hr Documented by: Meropenem 500 mg/ Dextrose 100 mls @ 200 mls/hr IVPB Q12H [facility] Last Admin: 12/14/19 00:16 Dose: 200 mls/hr Documented by: Insulin Aspart (Novolog Vial Sliding Scale -) 1 vial SQ ACHS [facility]; Protocol Last Admin: 12/14/19 07:14 Dose: Not Given Documented by: Levetiracetam (Keppra Injection -) 500 mg IVPB BID [facility] Last Admin: 12/14/19 10:28 Dose: 500 mg Documented by: Levothyroxine Sodium (Synthroid Injection -) 20 mcg IVPUSH DAILY [facility] Last Admin: 12/14/19 10:28 Dose: 20 mcg Documented by: Methylprednisolone Sodium Succinate (Solu-Medrol -) 20 mg IVPUSH DAILY [facility] Last Admin: 12/14/19 10:28 Dose: 20 mg Documented by: Mycophenolate Mofetil (Cellcept Suspension -) 500 mg PO BID [facility] Last Admin: 12/14/19 10:28 Dose: 500 mg Documented by: Pantoprazole Sodium (Protonix Iv) 40 mg IVPUSH DAILY [facility] Last Admin: 12/14/19 10:28 Dose: 40 mg Documented by: Rosuvastatin Calcium (Crestor -) 10 mg PO HS [facility] Last Admin: 12/13/19 22:24 Dose: 10 mg Documented by: Sodium Zirconium Cyclosilicate (Lokelma) 10 gm PO DAILY [facility] Last Admin: 12/14/19 10:28 Dose: 10 gm Documented by: Tamsulosin HCl (Flomax -) 0.4 mg PO 30 [facility] Last Admin: 12/11/19 09:09 Dose: 0.4 mg Documented by: - Objective Vital Signs: Vital Signs Temperature 97.5 F L 12/14/19 07:09 Pulse Rate 78 12/14/19 09:09 Respiratory Rate 26 H 12/14/19 09:09 Blood Pressure 140/80 12/14/19 09:09 O2 Sat by Pulse Oximetry (%) 98 12/14/19 09:00 Constitutional: Yes: Other Cardiovascular: Yes: Pulse Irregular Respiratory: Yes: Diminished, Mechanically Ventilated Gastrointestinal: Yes: Abdomen, Obese Genitourinary: Yes: Duvall Present Neurological: Yes: Other (SEDATED) Labs: CBC, BMP 12/14/19 06:12 12/14/19 06:12 Problem List - Problems (1) Acute respiratory failure Code(s): J96.00 - ACUTE RESPIRATORY FAILURE, UNSP W HYPOXIA OR HYPERCAPNIA (2) Bullous pemphigoid Code(s): L12.0 - BULLOUS PEMPHIGOID (3) Diabetic ulcer of right foot Code(s): E11.621 - TYPE 2 DIABETES MELLITUS WITH FOOT ULCER; L97.519 - NON-PRS CHRONIC ULCER OTH PRT RIGHT FOOT W UNSP SEVERITY (4) Acute on chronic renal insufficiency Code(s): N28.9 - DISORDER OF KIDNEY AND URETER, UNSPECIFIED; N18.9 - CHRONIC KIDNEY DISEASE, UNSPECIFIED (5) Acute on chronic systolic congestive heart failure Code(s): I50.23 - ACUTE ON CHRONIC SYSTOLIC (CONGESTIVE) HEART FAILURE (6) Afib Code(s): I48.91 - UNSPECIFIED ATRIAL FIBRILLATION Assessment/Plan IV ABX PER ID BP SUPPORT ON PRESSURE IV WITH PARAMETERS INSTRUCTED FOR TAPER CARLOS FULL CODE POOR OVERALL PROGNOSIS MONITOR LABS/RENAL FUNCTION DVT PROPHYLAXIS
[2019-12-14] MEDS ORDERED: FUROSEMIDE 40 MG/4 ML INJECTABLE VIAL IVPUSH ONE (12:59)
--- NOTE | 2019-12-14 13:09 | PN ---
Progress Note, Physician History of Present Illness: Pt seen and examined at bedside. He remains in the ICU. He remain intubated. - Current Medication List Current Medications: Active Medications Albuterol/Ipratropium (Duoneb -) 1 amp NEB Q4H PRN PRN Reason: SHORT OF BREATH/WHEEZING Last Admin: 12/08/19 02:38 Dose: 1 amp Documented by: Apixaban (Eliquis -) 2.5 mg PO BID [facility] Last Admin: 12/14/19 10:28 Dose: 2.5 mg Documented by: Hydromorphone HCl (Dilaudid Vial -) 4 mg IVPUSH Q4H PRN PRN Reason: PAIN LEVEL 4 - 6 Last Admin: 12/14/19 10:28 Dose: 4 mg Documented by: Midazolam HCl 100 mg/ Sodium (Chloride) 100 mls @ 1 mls/hr IVPB TITR [facility]; Protocol Last Admin: 12/14/19 07:39 Dose: Not Given Documented by: Vasopressin 40 units/ Sodium (Chloride) 100 mls @ 5 mls/hr IVPB ASDIR [facility] [place]; Protocol Last Admin: 12/14/19 07:39 Dose: Not Given Documented by: Norepinephrine Bitartrate (Levophed Bag) 16,000 mcg in 500 mls @ 9.375 mls/hr IVPB TITR [facility] [place]; Protocol Last Admin: 12/14/19 09:11 Dose: Not Given Documented by: Cefazolin Sodium 500 mg/ (Dextrose) 50 mls @ 100 mls/hr IVPB BID [facility] [place] Last Admin: 12/14/19 10:28 Dose: 100 mls/hr Documented by: Meropenem 500 mg/ Dextrose 100 mls @ 200 mls/hr IVPB Q12H [facility] Last Admin: 12/14/19 12:02 Dose: 200 mls/hr Documented by: Insulin Aspart (Novolog Vial Sliding Scale -) 1 vial SQ ACHS [facility] [place]; Protocol Last Admin: 12/14/19 12:01 Dose: Not Given Documented by: Levetiracetam (Keppra Injection -) 500 mg IVPB BID [facility] [place] Last Admin: 12/14/19 10:28 Dose: 500 mg Documented by: Levothyroxine Sodium (Synthroid Injection -) 20 mcg IVPUSH DAILY [facility] [place] Last Admin: 12/14/19 10:28 Dose: 20 mcg Documented by: Methylprednisolone Sodium Succinate (Solu-Medrol -) 20 mg IVPUSH DAILY [facility] [place] Last Admin: 12/14/19 10:28 Dose: 20 mg Documented by: Mycophenolate Mofetil (Cellcept Suspension -) 500 mg PO BID [facility] [place] Last Admin: 12/14/19 10:28 Dose: 500 mg Documented by: Pantoprazole Sodium (Protonix Iv) 40 mg IVPUSH DAILY [facility] [place] Last Admin: 12/14/19 10:28 Dose: 40 mg Documented by: Rosuvastatin Calcium (Crestor -) 10 mg PO HS [facility] [place] Last Admin: 12/13/19 22:24 Dose: 10 mg Documented by: Sodium Zirconium Cyclosilicate (Lokelma) 10 gm PO DAILY [facility] [place] Last Admin: 12/14/19 10:28 Dose: 10 gm Documented by: Tamsulosin HCl (Flomax -) 0.4 mg PO 0830 [facility] [place] Last Admin: 12/11/19 09:09 Dose: 0.4 mg Documented by: - Objective Vital Signs: Vital Signs Temperature 94.7 F L 12/14/19 11:00 Pulse Rate 48 L 12/14/19 11:00 Respiratory Rate 26 H 12/14/19 11:00 Blood Pressure 124/49 L 12/14/19 11:00 O2 Sat by Pulse Oximetry (%) 98 12/14/19 09:00 Constitutional: Yes: Calm HENT: Yes: Atraumatic Neck: Yes: Supple Cardiovascular: Yes: S1, S2 Respiratory: Yes: Mechanically Ventilated Gastrointestinal: Yes: Soft Genitourinary: Yes: Duvall Present Musculoskeletal: Yes: Muscle Weakness Edema: Yes Edema: LUE: 1+, RUE: 1+, LLE: 2+, RLE: 2+ Integumentary: Yes: Other (bullous pemphigoid) Neurological: Yes: Lethargy Labs: CBC, BMP 12/14/19 06:12 12/14/19 06:12 Problem List - Problems (1) Acute respiratory failure Code(s): J96.00 - ACUTE RESPIRATORY FAILURE, UNSP W HYPOXIA OR HYPERCAPNIA (2) Bullous pemphigoid Code(s): L12.0 - BULLOUS PEMPHIGOID Assessment/Plan Current Medications Generic Name Dose Route Start Last Admin Trade Name Freq PRN Reason Stop Dose Admin Albuterol/Ipratropium 1 amp 12/07/19 13:25 12/08/19 02:38 Duoneb - NEB 1 amp Q4H PRN Administration SHORT OF BREATH/WHEEZING Apixaban 2.5 mg 12/10/19 22:00 12/14/19 10:28 Eliquis - PO 2.5 mg BID [facility] Administration Hydromorphone HCl 4 mg 12/14/19 09:11 12/14/19 10:28 Dilaudid Vial - IVPUSH 4 mg Q4H PRN Administration PAIN LEVEL 4 - 6 Midazolam HCl 100 mg/ Sodium 100 mls @ 1 mls/hr 12/09/19 06:45 12/14/19 07:39 Chloride IVPB Not Given TITR [facility] Protocol 1 MG/HR Vasopressin 40 units/ Sodium 100 mls @ 5 mls/hr 12/09/19 07:30 12/14/19 07:39 Chloride IVPB Not Given ASDIR [facility] Protocol 2 UNITS/HR Norepinephrine Bitartrate 16,000 mcg in 500 mls @ 9.375 mls/hr 12/09/19 08:30 12/14/19 09:11 Levophed Bag IVPB Not Given TITR [facility] Protocol 5 MCG/MIN Cefazolin Sodium 500 mg/ 50 mls @ 100 mls/hr 12/12/19 12:45 12/14/19 10:28 Dextrose IVPB 100 mls/hr BID [facility] Administration Meropenem 500 mg/ Dextrose 100 mls @ 200 mls/hr 12/12/19 12:45 12/14/19 12:02 IVPB 200 mls/hr Q12H [facility] Administration Insulin Aspart 1 vial 12/10/19 07:00 12/14/19 12:01 Novolog Vial Sliding Scale - SQ Not Given ACHS [facility] Protocol Levetiracetam 500 mg 12/09/19 10:00 12/14/19 10:28 Keppra Injection - IVPB 500 mg BID [facility] Administration Levothyroxine Sodium 20 mcg 12/09/19 10:00 12/14/19 10:28 Synthroid Injection - IVPUSH 20 mcg DAILY [facility] Administration Methylprednisolone Sodium Succinate 20 mg 12/14/19 10:00 12/14/19 10:28 Solu-Medrol - IVPUSH 20 mg DAILY [facility] Administration Mycophenolate Mofetil 500 mg 12/10/19 22:00 12/14/19 10:28 Cellcept Suspension - PO 500 mg BID [facility] Administration Pantoprazole Sodium 40 mg 12/09/19 10:00 12/14/19 10:28 Protonix Iv IVPUSH 40 mg DAILY [facility] Administration Rosuvastatin Calcium 10 mg 12/07/19 22:00 12/13/19 22:24 Crestor - PO 10 mg HS [facility] Administration Sodium Zirconium Cyclosilicate 10 gm 12/13/19 15:30 12/14/19 10:28 Lokelma PO 10 gm DAILY [facility] Administration Tamsulosin HCl 0.4 mg 12/08/19 08:30 12/11/19 09:09 Flomax - PO 0.4 mg 0830 [facility] Administration Impression 1. CKD 2. CHF 3. BPH 4. a. fib 5. CAD 6. epilepsy 7. proteinuria 8. anemia 9. foot ulcer 10. abd wall cellulitis 11. bullous pemphigoid 12. LETITIA 13. hyperkalemia 14. cardiac arrest 15. resp failure on vent 16. r/o aspiration Plan - cont lokelma - will give lasix - pt making urine - monitor output - repeat labs in am - discussed with ICU team - called and discussed with - she would want HD if needed - pt is to remain a full code - hold sedation and assess mental status - cont pressors to map 65 - cont vent support - pt is making urine - discussed with ICU team - letitia on ckd likely atn post cardiac arrest
[2019-12-14] MEDS: ROSUVASTATIN CA 10 MG TABLET (FP) PO SCH (21:42)
[2019-12-14] MEDS: MINERAL OIL/PETROLATUM,WHITE 3.5 GM TUBE OU SCH (23:00)
[2019-12-15] MEDS ORDERED: MIDAZOLAM IN 0.9 % SOD.CHLORID 1 MG/1 ML PLAST..BAG ONE ×2 (01:38→17:41)
[2019-12-15] MEDS ORDERED: MEROPENEM 500 MG VIAL (RESTRICTED TO ID) IVPB ONE ×3 (03:16→20:49)
[2019-12-15] MEDS ORDERED: DEXTROSE 5%-WATER 100 ML IVPB ONE ×3 (03:16→20:49)
[2019-12-15] MEDS: MEROPENEM 500 MG in DEXTROSE 5%-WATER 100 ML IVPB SCH ×2 (03:24→12:45)
[2019-12-15 06:01] LABS: ARTERIAL BLD GAS O2 SATURATION 97.5 mmHg (95-98); ARTERIAL BLOOD GAS BASE EXCESS -2.5 mmol/L (-2-2); ARTERIAL BLOOD GAS PO2 87.8 mmHg (80-100); ARTERIAL BLOOD GAS pH 7.509 (7.350-7.450)
[2019-12-15 06:05] LABS: ALLENS TEST POSITIVE
[2019-12-15 06:06] LABS: VENT MODE AC/VC; VENT RATE 26
[2019-12-15] MEDS: INSULIN SLIDING SCALE (NOVOLOG) 1 VIAL SQ SCH ×4 (06:23→21:06)
[2019-12-15] MEDS ORDERED: PT OWN MED DRAWER 7, Y5N ONE ×3 (06:28→20:50)
[2019-12-15] MEDS: MIDAZOLAM 100 MG in SODIUM CHLORIDE 100 ML IVPB SCH (06:50)
[2019-12-15 06:57] LABS: BASO % 0.1 % (0-2.0); EOS % 0.2 % (0-4.5); HEMATOCRIT 22.8 % (35.4-49); HEMOGLOBIN 7.4 GM/dL (11.7-16.9); LYMPH % 10.1 % (8-40); MCH 29.4 pg (25.7-33.7); MCHC 32.6 g/dl (32.0-35.9); MEAN CELL VOLUME 90.1 fl (80-96); MEAN PLT VOLUME 8.5 fl (7.5-11.1); MONO % 6.4 % (3.8-10.2); NEUT % 83.2 % (42.8-82.8); PLATELET COUNT 100 K/MM3 (134-434); RBC 2.53 M/mm3 (4.00-5.60); RDW 16.7 % (11.9-15.9); WHITE BLOOD COUNT 6.5 K/mm3 (4.0-10.0)
[2019-12-15 07:21] LABS: ALBUMIN 2.1 g/dl (3.4-5.0); BILIRUBIN,TOTAL 0.7 mg/dL (0.2-1); CREATININE 4.7 mg/dL (0.55-1.3); MAGNESIUM 2.1 mg/dL (1.8-2.4); PHOSPHOROUS 4.6 mg/dL (2.5-4.9); POTASSIUM 4.9 mmol/L (3.5-5.1); TOT PROT 5.2 g/dl (6.4-8.2)
[2019-12-15 07:53] LABS: BLOOD UREA NITROGEN 164.8 mg/dL (7-18)
--- NOTE | 2019-12-15 09:40 | ECHO ---
Name: BONNIE SKY Exam:Adult Echocardiogram Study Date: 12/15/2019 08:24 AM Age: 79 yrs Reason For Study: R/O Vegetation Height: 74 in Weight: 253 lb BSA: 2.4 m2 Procedure Study Quality: Fair. Left Ventricle The left ventricle is grossly normal size. There is mild concentric left ventricular hypertrophy. The left ventricular ejection fraction is normal. Ejection Fraction = 55-60%. Right Ventricle The right ventricle is normal in size and function. Atria The left atrium is severely dilated. The right atrium is severely dilated. Mitral Valve There is mild mitral valve thickening. Subvalvular thickenning. There is mild mitral regurgitation. Tricuspid Valve The tricuspid valve is not well visualized, but is grossly normal. There is mild tricuspid regurgitat ion. Right ventricular systolic pressure is normal. Aortic Valve Nodular calcification. No hemodynamically significant valvular aortic stenosis. Mild aortic regurgita tion. Pulmonic Valve The pulmonic valve is not well seen, but is grossly normal. There is no pulmonic valvular regurgitati on. Great Vessels The aortic root is normal size. Pericardium/Pleura There is no pericardial effusion. Interpretation Summary LV: Normal size,mild LVH,normal systolic function EF 55-60%. Afb (diastolic unable to assess) RV: Normal Atria: Severely dilated AV: nodular calcification, mild AR (valve appears same as previos echo 10/2019) MV: mild MR, mild annular calcification. Wally Comer 12/15/2019 09:39 AM
--- NOTE | 2019-12-15 10:15 | CON.HO ---
Consult - text type - Consultation Consultation Note: Hb 7.4 and want active care. I wrote for Procrit 40.000.00 to continue weekly.
[2019-12-15] MEDS ORDERED: EPOETIN ALFA-EPBX 40,000 UNIT/ML VIAL SQ ONE (10:30)
[2019-12-15] MEDS: CEFAZOLIN 500 MG in DEXTROSE 5%-WATER - 50 ML IVPB SCH ×2 (10:32→21:05)
[2019-12-15] MEDS: MINERAL OIL/PETROLATUM,WHITE 3.5 GM TUBE OU SCH ×2 (10:32→21:04)
[2019-12-15] MEDS: SODIUM ZIRCONIUM CYCLOSILICATE (LOKELMA) 5 GM PACKET PO SCH (10:33)
[2019-12-15] MEDS: MYCOPHENOLATE MOFETIL 200 MG/ML SUSPENSION PO SCH ×2 (10:33→21:04)
[2019-12-15] MEDS: PANTOPRAZOLE SODIUM 40 MG VIAL IVPUSH SCH (10:33)
[2019-12-15] MEDS: methylPREDNISolone NA SUCC 40 MG/1 ML VIAL IVPUSH SCH (10:33)
[2019-12-15] MEDS: APIXABAN 2.5 MG TABLET PO SCH ×2 (10:33→21:04)
[2019-12-15] MEDS: LEVOTHYROXINE SODIUM 100 MCG VIAL IVPUSH SCH (10:33)
[2019-12-15] MEDS: levETIRAcetam 500 MG/5 ML INJECTION VIAL IVPB SCH ×2 (10:33→21:03)
[2019-12-15 12:17] LABS: INR 1.29 (0.83-1.09); PROTHROMBIN TIME (PATIENT) 15.3 SEC (9.7-13.0)
[2019-12-15] MEDS ORDERED: ACETAMINOPHEN 1000 MG/100 ML VIAL (NON FORMULARY) IVPB PRN (13:54)
--- NOTE | 2019-12-15 13:55 | PN ---
Progress Note, Physician Chief Complaint: s/p Cardiopulmonary Arrest Acute Hypoxic and Hypercapneic Respiratory Failure Likely Aspiration Pneumonia Septic Shock Acute on Chronic Renal Failure Lactic Acidosis Bullous Pemphigoid CAD LV Diastolic Dysfunction Atrial Fibrillation Seizure Disorder h/o CVA Hypothyroidism Anemia Thrombocytopenia History of Present Illness: Remains intubated in ICU No events overnight s/p PRBC yesterday On eliquis for Pafib - Current Medication List Current Medications: Active Medications Albuterol/Ipratropium (Duoneb -) 1 amp NEB Q4H PRN PRN Reason: SHORT OF BREATH/WHEEZING Last Admin: 12/08/19 02:38 Dose: 1 amp Documented by: Apixaban (Eliquis -) 2.5 mg PO BID [facility] Last Admin: 12/15/19 10:33 Dose: 2.5 mg Documented by: Artificial Tears (Artificial Tears Ointment -) 1 applic OU BID [facility] Last Admin: 12/15/19 10:32 Dose: 2 drop Documented by: Artificial Tears (Artificial Tears) 1 drop OU BID PRN PRN Reason: DRY EYES Midazolam HCl 100 mg/ Sodium (Chloride) 100 mls @ 1 mls/hr IVPB TITR [facility]; Protocol Last Admin: 12/15/19 06:50 Dose: 10 mg/hr, 10 mls/hr Documented by: Cefazolin Sodium 500 mg/ (Dextrose) 50 mls @ 100 mls/hr IVPB BID [facility] Last Admin: 12/15/19 10:32 Dose: 100 mls/hr Documented by: Meropenem 500 mg/ Dextrose 100 mls @ 200 mls/hr IVPB Q12H [facility] Last Admin: 12/15/19 03:24 Dose: 200 mls/hr Documented by: Insulin Aspart (Novolog Vial Sliding Scale -) 1 vial SQ ACHS [facility]; Protocol Last Admin: 12/15/19 12:35 Dose: Not Given Documented by: Levetiracetam (Keppra Injection -) 500 mg IVPB BID [facility] Last Admin: 12/15/19 10:33 Dose: 500 mg Documented by: Levothyroxine Sodium (Synthroid Injection -) 20 mcg IVPUSH DAILY [facility] Last Admin: 12/15/19 10:33 Dose: 20 mcg Documented by: Methylprednisolone Sodium Succinate (Solu-Medrol -) 20 mg IVPUSH DAILY [facility] Last Admin: 12/15/19 10:33 Dose: 20 mg Documented by: Mycophenolate Mofetil (Cellcept Suspension -) 500 mg PO BID [facility] Last Admin: 12/15/19 10:33 Dose: 500 mg Documented by: Pantoprazole Sodium (Protonix Iv) 40 mg IVPUSH DAILY [facility] Last Admin: 12/15/19 10:33 Dose: 40 mg Documented by: Rosuvastatin Calcium (Crestor -) 10 mg PO HS [facility] Last Admin: 12/14/19 21:42 Dose: 10 mg Documented by: Silver Sulfadiazine (Silvadene -) 1 applic TP BID [facility] Sodium Zirconium Cyclosilicate (Lokelma) 10 gm PO DAILY [facility] Last Admin: 12/15/19 10:33 Dose: 10 gm Documented by: Tamsulosin HCl (Flomax -) 0.4 mg PO 829 [facility] Last Admin: 12/11/19 09:09 Dose: 0.4 mg Documented by: - Objective Vital Signs: Vital Signs Temperature 98.0 F 12/15/19 11:53 Pulse Rate 73 12/15/19 11:53 Respiratory Rate 18 12/15/19 12:05 Blood Pressure 129/58 L 12/15/19 11:53 O2 Sat by Pulse Oximetry (%) 96 12/15/19 12:05 Constitutional: Yes: Well Nourished, No Distress, Calm Cardiovascular: Yes: Regular Rate and Rhythm Respiratory: Yes: Regular, Mechanically Ventilated, Rhonchi (diffuse) Genitourinary: Yes: [place] Present Edema: No Peripheral Pulses WNL: Yes Neurological: Yes: Other (sedated) Labs: CBC, BMP 12/15/19 05:00 12/15/19 05:00 INR, PTT INR 1.29 (0.83-1.09) H 12/15/19 11:01 Problem List - Problems (1) Acute respiratory failure Assessment/Plan: -Mech vent -Pulmonary consult -IV Cefazolin -Restart Enteral feeds after NGT is reinserted and confirmed -IR consult for PEG insertion -Bronchodilators Problems reviewed: Yes Code(s): J96.00 - ACUTE RESPIRATORY FAILURE, UNSP W HYPOXIA OR HYPERCAPNIA (2) Bullous pemphigoid Assessment/Plan: -Cellcept held due to GI bleed -Silvadene top Problems reviewed: Yes Code(s): L12.0 - BULLOUS PEMPHIGOID (3) Acute on chronic renal insufficiency Assessment/Plan: -Nephrology on board -monitor daily labs Problems reviewed: Yes Code(s): N28.9 - DISORDER OF KIDNEY AND URETER, UNSPECIFIED; N18.9 - CHRONIC KIDNEY DISEASE, UNSPECIFIED (4) Pneumonia Assessment/Plan: -Likely aspiration -CXR reviewed -COVID 19 PCR negative -IV abx -ID consult -Lactic acidosis noted Problems reviewed: Yes Code(s): J18.9 - PNEUMONIA, UNSPECIFIED ORGANISM (5) Afib Assessment/Plan: -Chronic, rate controlled -Eliquis Held due to acute GI bleed -Transfuse only if Hg <7.0 to avoid fluid overload Problems reviewed: Yes Code(s): I48.91 - UNSPECIFIED ATRIAL FIBRILLATION (6) Anemia Assessment/Plan: -Chronic -H/H stable at this time -workup last admission was negative -hematology consult -Transfuse only if hg<7.0 to avoid fluid overload. Problems reviewed: Yes Code(s): D64.9 - ANEMIA, UNSPECIFIED Assessment/Plan See problem list GI PPX
--- NOTE | 2019-12-15 14:12 | PN ---
Physical Exam: SUBJECTIVE: Patient seen and examined at bedside. Overnight there were no acute events. This AM he remains intubated, sedated and unable to participate in medical interview. OBJECTIVE: Vital Signs Period Temp Pulse Resp BP Sys/Hair Pulse Ox Last 24 Hr 98.0 F-99.5 F 58-73 18-26 123-145/39-83 95-100 GENERAL: intubated and sedated HEAD: Normal with no signs of trauma. EYES: cristhian, sclera anicteric ENT: Ears normal, nares patent, oropharynx clear without exudates, moist mucous membranes. NECK: Trachea midline, full range of motion, supple. LUNGS: Breath sounds equal, clear to auscultation bilaterally, no wheezes, no crackles, no accessory muscle use. HEART: Sinus bradycardia and rhythm, S1, S2 without murmur, rub or gallop. ABDOMEN: Soft, nondistended, normoactive bowel sounds, no guarding, no rebound, no hepatosplenomegaly, no masses. EXTREMITIES: 2+ pulses, warm, well-perfused, no edema. NEUROLOGICAL: Sedated; plan for vacation to assess neurological function SKIN: Diffuse lesions across body Laboratory Results - last 24 hr 12/11/19 12/14/19 12/14/19 11:00 18:29 22:43 WBC RBC Hgb Hct MCV MCH MCHC RDW Plt Count MPV Absolute Neuts (auto) Neutrophils % Lymphocytes % Monocytes % Eosinophils % Basophils % Nucleated RBC % PT with INR INR Anticoagulation Therapy Puncture Site Patient Temperature ABG pH ABG pCO2 ABG pO2 ABG HCO3 ABG O2 Sat (Measured) ABG O2 Content ABG Base Excess Ishan Test Patient On Oxygen O2 Delivery Device Oxygen Flow Rate Vent Mode Vent Rate Mechanical Rate PEEP Pressure Support Vent Sodium Potassium Chloride Carbon Dioxide Anion Gap BUN Creatinine Est GFR (CKD-EPI)AfAm Est GFR (CKD-EPI)NonAf POC Glucometer 220 185 Random Glucose Calcium Phosphorus Magnesium Total Bilirubin AST ALT Alkaline Phosphatase Total Protein Albumin Blood Type B POSITIVE Antibody Screen Negative Crossmatch See Detail 12/15/19 12/15/19 12/15/19 05:00 05:00 05:20 WBC 6.5 RBC 2.53 L Hgb 7.4 L Hct 22.8 L MCV 90.1 MCH 29.4 MCHC 32.6 RDW 16.7 H Plt Count 100 L MPV 8.5 Absolute Neuts (auto) 5.4 Neutrophils % 83.2 H Lymphocytes % 10.1 D Monocytes % 6.4 Eosinophils % 0.2 D Basophils % 0.1 D Nucleated RBC % 0 PT with INR INR Anticoagulation Therapy No Result Required. Puncture Site Right radial Patient Temperature No Result Required. ABG pH 7.509 H ABG pCO2 25.70 L ABG pO2 87.8 ABG HCO3 20.0 L ABG O2 Sat (Measured) 97.5 ABG O2 Content No Result Required. ABG Base Excess -2.5 L Ishan Test Positive Patient On Oxygen Yes O2 Delivery Device Vent Oxygen Flow Rate 40% Vent Mode Ac/vc Vent Rate 26 Mechanical Rate Yes PEEP 5.0 Pressure Support Vent 450 Sodium 145 Potassium 4.9 Chloride 110 H Carbon Dioxide 21 Anion Gap 14 BUN 164.8 H* Creatinine 4.7 H Est GFR (CKD-EPI)AfAm 12.54 Est GFR (CKD-EPI)NonAf 10.82 POC Glucometer Random Glucose 135 H Calcium 8.0 L Phosphorus 4.6 Magnesium 2.1 Total Bilirubin 0.7 AST 14 L ALT 11 L Alkaline Phosphatase 57 Total Protein 5.2 L Albumin 2.1 L Blood Type Antibody Screen Crossmatch 12/15/19 12/15/19 12/15/19 05:44 11:01 12:34 WBC RBC Hgb Hct MCV MCH MCHC RDW Plt Count MPV Absolute Neuts (auto) Neutrophils % Lymphocytes % Monocytes % Eosinophils % Basophils % Nucleated RBC % PT with INR 15.30 H INR 1.29 H Anticoagulation Therapy Puncture Site Patient Temperature ABG pH ABG pCO2 ABG pO2 ABG HCO3 ABG O2 Sat (Measured) ABG O2 Content ABG Base Excess Ishan Test Patient On Oxygen O2 Delivery Device Oxygen Flow Rate Vent Mode Vent Rate Mechanical Rate PEEP Pressure Support Vent Sodium Potassium Chloride Carbon Dioxide Anion Gap BUN Creatinine Est GFR (CKD-EPI)AfAm Est GFR (CKD-EPI)NonAf POC Glucometer 132 143 Random Glucose Calcium Phosphorus Magnesium Total Bilirubin AST ALT Alkaline Phosphatase Total Protein Albumin Blood Type Antibody Screen Crossmatch Active Medications Generic Name Dose Route Start Last Admin Trade Name Freq PRN Reason Stop Dose Admin Acetaminophen 1,000 mg 12/15/19 13:54 Ofirmev Injection - IVPB 12/16/19 13:54 Q6H PRN PAIN Albuterol/Ipratropium 1 amp 12/07/19 13:25 12/08/19 02:38 Duoneb - NEB 1 amp Q4H PRN Administration SHORT OF BREATH/WHEEZING Apixaban 2.5 mg 12/10/19 22:00 12/15/19 10:33 Eliquis - PO 2.5 mg BID [facility] Administration Artificial Tears 1 applic 12/14/19 23:45 12/15/19 10:32 Artificial Tears Ointment - OU 2 drop BID [facility] Administration Artificial Tears 1 drop 12/15/19 07:31 Artificial Tears OU BID PRN DRY EYES Midazolam HCl 100 mg/ Sodium 100 mls @ 1 mls/hr 12/09/19 06:45 12/15/19 06:50 Chloride IVPB 10 mg/hr TITR [facility] 10 mls/hr Administration Protocol 1 MG/HR Cefazolin Sodium 500 mg/ 50 mls @ 100 mls/hr 12/12/19 12:45 12/15/19 10:32 Dextrose IVPB 100 mls/hr BID [facility] Administration Meropenem 500 mg/ Dextrose 100 mls @ 200 mls/hr 12/12/19 12:45 12/15/19 03:24 IVPB 200 mls/hr Q12H [facility] Administration Insulin Aspart 1 vial 12/10/19 07:00 12/15/19 12:35 Novolog Vial Sliding Scale - SQ Not Given ACHS [facility] Protocol Levetiracetam 500 mg 12/09/19 10:00 12/15/19 10:33 Keppra Injection - IVPB 500 mg BID [facility] Administration Levothyroxine Sodium 20 mcg 12/09/19 10:00 12/15/19 10:33 Synthroid Injection - IVPUSH 20 mcg DAILY [facility] Administration Methylprednisolone Sodium Succinate 20 mg 12/14/19 10:00 12/15/19 10:33 Solu-Medrol - IVPUSH 20 mg DAILY [facility] Administration Mycophenolate Mofetil 500 mg 12/10/19 22:00 12/15/19 10:33 Cellcept Suspension - PO 500 mg BID [facility] Administration Pantoprazole Sodium 40 mg 12/09/19 10:00 12/15/19 10:33 Protonix Iv IVPUSH 40 mg DAILY [facility] Administration Rosuvastatin Calcium 10 mg 12/07/19 22:00 12/14/19 21:42 Crestor - PO 10 mg HS [facility] Administration Silver Sulfadiazine 1 applic 12/15/19 12:45 Silvadene - TP BID [facility] Sodium Zirconium Cyclosilicate 10 gm 12/13/19 15:30 12/15/19 10:33 Lokelma PO 10 gm DAILY [facility] Administration Tamsulosin HCl 0.4 mg 12/08/19 08:30 12/11/19 09:09 Flomax - PO 0.4 mg 0830 [facility] Administration ASSESSMENT/PLAN: 79 y/o male PMH dCHF, afib, CAD s/p PCI, HTN, seziure d/o, CVA with RIGHT sided residual deficit, CKD, hypothyroidism, and bullous pemphigoid c/o X and admitted for X. 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 He is now s/p cardiopulmonary arrest (on 12/09/2019) demonstrating PEA x2 (ROSC >1 min for both) in the ICU 2/2 acute hypoxic respiratory failure. # Neuro: seizure d/o, h/o CVA rrd Intubated and sedated Versed 3 # CVS: afid, dCHF, CAD, HTN, anemia Procrit 40.000.00 to continue weekly Transfuse hb < 7 For periods of bradycardia, ensure electrolytes are repleted. If concurrent with hypotension, consider dopamine. # Pulm Covid NEGATIVE 12/02 and 12/07 ARDS, aspiration PNA //40%/5 Plat 20 Taper steroids. Solumedrol 20 mg qd today # ID Cefazolin and meropenem day 4 Sputum pseudomonas. Blood and urine cxs neg. # Renal: CKD Cr 4.7 and family amenable to HD despite poor prognosis UO 4,100 cc # TLD RIGHT IJ 12/08 ETT 12/07 [place]vall # FEN Hold Cont. to monitor and replete as needed. Nephro TF diet 45cc/hr # PPX Protonix 40 mg IV QD Heparin # Disposition ICU NOK/, Mandy Jenikns, is to be contacted but works after 8pm and would like son, Cj Jenkins, to be contacted: . Visit type - Emergency Visit Emergency Visit: No - New Patient This patient is new to me today: No - Critical Care Critical Care patient: Yes Total Critical Care Time (in minutes): 36 Critical Care Statement: The care of this patient involved high complexity decision making to prevent further life threatening deterioration of the patient's condition and/or to evaluate & treat vital organ system(s) failure or risk of failure. ATTENDING PHYSICIAN STATEMENT I saw and evaluated the patient. I reviewed the resident's note and discussed the case with the resident. I agree with the resident's findings and plan as documented. SUBJECTIVE: OBJECTIVE: ASSESSMENT AND PLAN:
[2019-12-15] MEDS: SILVER SULFADIAZINE 1% TOP CREAM 50 GM JAR TP SCH ×2 (14:33→21:06)
--- NOTE | 2019-12-15 14:33 | PN ---
Progress Note, Physician Chief Complaint: Pt seen and examined at bedside. He remains in the ICU. He remains intubated. - Current Medication List Current Medications: Active Medications Acetaminophen (Ofirmev Injection -) 1,000 mg IVPB Q6H PRN PRN Reason: PAIN Stop: 12/16/19 13:54 Albuterol/Ipratropium (Duoneb -) 1 amp NEB Q4H PRN PRN Reason: SHORT OF BREATH/WHEEZING Last Admin: 12/08/19 02:38 Dose: 1 amp Documented by: Apixaban (Eliquis -) 2.5 mg PO BID [facility] Last Admin: 12/15/19 10:33 Dose: 2.5 mg Documented by: Artificial Tears (Artificial Tears Ointment -) 1 applic OU BID [facility] Last Admin: 12/15/19 10:32 Dose: 2 drop Documented by: Artificial Tears (Artificial Tears) 1 drop OU BID PRN PRN Reason: DRY EYES Midazolam HCl 100 mg/ Sodium (Chloride) 100 mls @ 1 mls/hr IVPB TITR [facility]; Protocol Last Admin: 12/15/19 06:50 Dose: 10 mg/hr, 10 mls/hr Documented by: Cefazolin Sodium 500 mg/ (Dextrose) 50 mls @ 100 mls/hr IVPB BID [facility] Last Admin: 12/15/19 10:32 Dose: 100 mls/hr Documented by: Meropenem 500 mg/ Dextrose 100 mls @ 200 mls/hr IVPB Q12H [facility] Last Admin: 12/15/19 03:24 Dose: 200 mls/hr Documented by: Insulin Aspart (Novolog Vial Sliding Scale -) 1 vial SQ ACHS [facility]; Protocol Last Admin: 12/15/19 12:35 Dose: Not Given Documented by: Levetiracetam (Keppra Injection -) 500 mg IVPB BID [facility] Last Admin: 12/15/19 10:33 Dose: 500 mg Documented by: Levothyroxine Sodium (Synthroid Injection -) 20 mcg IVPUSH DAILY [facility] Last Admin: 12/15/19 10:33 Dose: 20 mcg Documented by: Methylprednisolone Sodium Succinate (Solu-Medrol -) 20 mg IVPUSH DAILY [facility] Last Admin: 12/15/19 10:33 Dose: 20 mg Documented by: Mycophenolate Mofetil (Cellcept Suspension -) 500 mg PO BID [facility] Last Admin: 12/15/19 10:33 Dose: 500 mg Documented by: Pantoprazole Sodium (Protonix Iv) 40 mg IVPUSH DAILY [facility] Last Admin: 12/15/19 10:33 Dose: 40 mg Documented by: Rosuvastatin Calcium (Crestor -) 10 mg PO HS [facility] Last Admin: 12/14/19 21:42 Dose: 10 mg Documented by: Silver Sulfadiazine (Silvadene -) 1 applic TP BID [facility] Sodium Zirconium Cyclosilicate (Lokelma) 10 gm PO DAILY [facility] Last Admin: 12/15/19 10:33 Dose: 10 gm Documented by: Tamsulosin HCl (Flomax -) 0.4 mg PO 30 [facility] Last Admin: 12/11/19 09:09 Dose: 0.4 mg Documented by: - Objective Vital Signs: Vital Signs Temperature 98.0 F 12/15/19 11:53 Pulse Rate 73 12/15/19 11:53 Respiratory Rate 18 12/15/19 12:05 Blood Pressure 129/58 L 12/15/19 11:53 O2 Sat by Pulse Oximetry (%) 96 12/15/19 12:05 Constitutional: Yes: Calm Eyes: Yes: Conjunctiva Clear HENT: Yes: Atraumatic Neck: Yes: Supple Cardiovascular: Yes: S1, S2 Respiratory: Yes: Mechanically Ventilated Gastrointestinal: Yes: Soft Genitourinary: Yes: [place] Present Musculoskeletal: Yes: Muscle Weakness Edema: Yes Integumentary: Yes: Other (bullous pemphigoid) Neurological: Yes: Lethargy Labs: CBC, BMP 12/15/19 05:00 12/15/19 05:00 INR, PTT INR 1.29 (0.83-1.09) H 12/15/19 11:01 - ....Imaging Chest X-ray: Report Reviewed Problem List - Problems (1) Acute respiratory failure Code(s): J96.00 - ACUTE RESPIRATORY FAILURE, UNSP W HYPOXIA OR HYPERCAPNIA (2) Bullous pemphigoid Code(s): L12.0 - BULLOUS PEMPHIGOID Assessment/Plan Current Medications Generic Name Dose Route Start Last Admin Trade Name Freq PRN Reason Stop Dose Admin Acetaminophen 1,000 mg 12/15/19 13:54 Ofirmev Injection - IVPB 12/16/19 13:54 Q6H PRN PAIN Albuterol/Ipratropium 1 amp 12/07/19 13:25 12/08/19 02:38 Duoneb - NEB 1 amp Q4H PRN Administration SHORT OF BREATH/WHEEZING Apixaban 2.5 mg 12/10/19 22:00 12/15/19 10:33 Eliquis - PO 2.5 mg BID [facility] Administration Artificial Tears 1 applic 12/14/19 23:45 12/15/19 10:32 Artificial Tears Ointment - OU 2 drop BID [facility] Administration Artificial Tears 1 drop 12/15/19 07:31 Artificial Tears OU BID PRN DRY EYES Midazolam HCl 100 mg/ Sodium 100 mls @ 1 mls/hr 12/09/19 06:45 12/15/19 06:50 Chloride IVPB 10 mg/hr TITR [facility] 10 mls/hr Administration Protocol 1 MG/HR Cefazolin Sodium 500 mg/ 50 mls @ 100 mls/hr 12/12/19 12:45 12/15/19 10:32 Dextrose IVPB 100 mls/hr BID [facility] Administration Meropenem 500 mg/ Dextrose 100 mls @ 200 mls/hr 12/12/19 12:45 12/15/19 03:24 IVPB 200 mls/hr Q12H [facility] Administration Insulin Aspart 1 vial 12/10/19 07:00 12/15/19 12:35 Novolog Vial Sliding Scale - SQ Not Given ACHS [facility] Protocol Levetiracetam 500 mg 12/09/19 10:00 12/15/19 10:33 Keppra Injection - IVPB 500 mg BID [facility] Administration Levothyroxine Sodium 20 mcg 12/09/19 10:00 12/15/19 10:33 Synthroid Injection - IVPUSH 20 mcg DAILY [facility] Administration Methylprednisolone Sodium Succinate 20 mg 12/14/19 10:00 12/15/19 10:33 Solu-Medrol - IVPUSH 20 mg DAILY [facility] Administration Mycophenolate Mofetil 500 mg 12/10/19 22:00 12/15/19 10:33 Cellcept Suspension - PO 500 mg BID [facility] Administration Pantoprazole Sodium 40 mg 12/09/19 10:00 12/15/19 10:33 Protonix Iv IVPUSH 40 mg DAILY [facility] Administration Rosuvastatin Calcium 10 mg 12/07/19 22:00 12/14/19 21:42 Crestor - PO 10 mg HS [facility] Administration Silver Sulfadiazine 1 applic 12/15/19 12:45 Silvadene - TP BID [facility] Sodium Zirconium Cyclosilicate 10 gm 12/13/19 15:30 12/15/19 10:33 Lokelma PO 10 gm DAILY [facility] Administration Tamsulosin HCl 0.4 mg 12/08/19 08:30 12/11/19 09:09 Flomax - PO 0.4 mg 0830 [facility] Administration Impression 1. CKD 2. CHF 3. BPH 4. a. fib 5. CAD 6. epilepsy 7. proteinuria 8. anemia 9. foot ulcer 10. abd wall cellulitis 11. bullous pemphigoid 12. LETITIA 13. hyperkalemia 14. cardiac arrest 15. resp failure on vent 16. 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
--- NOTE | 2019-12-15 14:37 | PN ---
Teaching Attending Note Name of Resident: Galindo Alexandre ATTENDING PHYSICIAN STATEMENT I saw and evaluated the patient. I reviewed the resident's note and discussed the case with the resident. I agree with the resident's findings and plan as documented. SUBJECTIVE: Patient seen and examined in the ICU. Remains intubated, sedated. Off pressors hemodynamic support. OBJECTIVE: Intake & Output 12/12/19 12/13/19 12/14/19 12/15/19 23:59 23:59 23:59 23:59 Intake Total 1075.2 3740 296 0046 Output Total 2300 2450 4100 960 Balance -1224.8 -609 -3151 110 Weight 253 lb 6 oz 252 lb 4.364 oz 244 lb 8 oz 237 lb 14.4 oz Last Vital Signs Temp Pulse Resp BP Pulse Ox 97.8 F 76 18 152/78 96 12/15/19 14:00 12/15/19 14:00 12/15/19 14:00 12/15/19 14:00 12/15/19 12:05 Active Medications Acetaminophen (Ofirmev Injection -) 1,000 mg IVPB Q6H PRN PRN Reason: PAIN Stop: 12/16/19 13:54 Albuterol/Ipratropium (Duoneb -) 1 amp NEB Q4H PRN PRN Reason: SHORT OF BREATH/WHEEZING Last Admin: 12/08/19 02:38 Dose: 1 amp Documented by: Apixaban (Eliquis -) 2.5 mg PO BID [facility] Last Admin: 12/15/19 10:33 Dose: 2.5 mg Documented by: Artificial Tears (Artificial Tears Ointment -) 1 applic OU BID MICHA[facility] Last Admin: 12/15/19 10:32 Dose: 2 drop Documented by: Artificial Tears (Artificial Tears) 1 drop OU BID PRN PRN Reason: DRY EYES Furosemide (Lasix Injection -) 60 mg IVPUSH ONCE ONE Stop: 12/15/19 14:34 Midazolam HCl 100 mg/ Sodium (Chloride) 100 mls @ 1 mls/hr IVPB TITR MICHAEL; Protocol Last Admin: 12/15/19 06:50 Dose: 10 mg/hr, 10 mls/hr Documented by: Cefazolin Sodium 500 mg/ (Dextrose) 50 mls @ 100 mls/hr IVPB BID MICHAEL Last Admin: 12/15/19 10:32 Dose: 100 mls/hr Documented by: Meropenem 500 mg/ Dextrose 100 mls @ 200 mls/hr IVPB Q12H [facility] Last Admin: 12/15/19 12:45 Dose: 200 mls/hr Documented by: Insulin Aspart (Novolog Vial Sliding Scale -) 1 vial SQ ACHS [facility]; Protocol Last Admin: 12/15/19 12:35 Dose: Not Given Documented by: Levetiracetam (Keppra Injection -) 500 mg IVPB BID [facility] Last Admin: 12/15/19 10:33 Dose: 500 mg Documented by: Levothyroxine Sodium (Synthroid Injection -) 20 mcg IVPUSH DAILY [facility] Last Admin: 12/15/19 10:33 Dose: 20 mcg Documented by: Methylprednisolone Sodium Succinate (Solu-Medrol -) 20 mg IVPUSH DAILY [facility] Last Admin: 12/15/19 10:33 Dose: 20 mg Documented by: Mycophenolate Mofetil (Cellcept Suspension -) 500 mg PO BID [facility] Last Admin: 12/15/19 10:33 Dose: 500 mg Documented by: Pantoprazole Sodium (Protonix Iv) 40 mg IVPUSH DAILY [facility] Last Admin: 12/15/19 10:33 Dose: 40 mg Documented by: Rosuvastatin Calcium (Crestor -) 10 mg PO HS [facility] Last Admin: 12/14/19 21:42 Dose: 10 mg Documented by: Silver Sulfadiazine (Silvadene -) 1 applic TP BID [facility] Last Admin: 12/15/19 14:33 Dose: 1 applic Documented by: Sodium Zirconium Cyclosilicate (Lokelma) 10 gm PO DAILY [facility] Last Admin: 12/15/19 10:33 Dose: 10 gm Documented by: Tamsulosin HCl (Flomax -) 0.4 mg PO 0830 [facility] Last Admin: 12/11/19 09:09 Dose: 0.4 mg Documented by: Gen: intubated, sedated Heart: RRR Lung: decreased breath sounds at the bases Abd: softly distended, nontender Ext: no edema, multiple ulcers Laboratory Results - last 24 hr 12/11/19 12/14/19 12/14/19 11:00 18:29 22:43 WBC RBC Hgb Hct MCV MCH MCHC RDW Plt Count MPV Absolute Neuts (auto) Neutrophils % Lymphocytes % Monocytes % Eosinophils % Basophils % Nucleated RBC % PT with INR INR Anticoagulation Therapy Puncture Site Patient Temperature ABG pH ABG pCO2 ABG pO2 ABG HCO3 ABG O2 Sat (Measured) ABG O2 Content ABG Base Excess Ishan Test Patient On Oxygen O2 Delivery Device Oxygen Flow Rate Vent Mode Vent Rate Mechanical Rate PEEP Pressure Support Vent Sodium Potassium Chloride Carbon Dioxide Anion Gap BUN Creatinine Est GFR (CKD-EPI)AfAm Est GFR (CKD-EPI)NonAf POC Glucometer 220 185 Random Glucose Calcium Phosphorus Magnesium Total Bilirubin AST ALT Alkaline Phosphatase Total Protein Albumin Blood Type B POSITIVE Antibody Screen Negative Crossmatch See Detail 12/15/19 12/15/19 12/15/19 05:00 05:00 05:20 WBC 6.5 RBC 2.53 L Hgb 7.4 L Hct 22.8 L MCV 90.1 MCH 29.4 MCHC 32.6 RDW 16.7 H Plt Count 100 L MPV 8.5 Absolute Neuts (auto) 5.4 Neutrophils % 83.2 H Lymphocytes % 10.1 D Monocytes % 6.4 Eosinophils % 0.2 D Basophils % 0.1 D Nucleated RBC % 0 PT with INR INR Anticoagulation Therapy No Result Required. Puncture Site Right radial Patient Temperature No Result Required. ABG pH 7.509 H ABG pCO2 25.70 L ABG pO2 87.8 ABG HCO3 20.0 L ABG O2 Sat (Measured) 97.5 ABG O2 Content No Result Required. ABG Base Excess -2.5 L Ishan Test Positive Patient On Oxygen Yes O2 Delivery Device Vent Oxygen Flow Rate 40% Vent Mode Ac/vc Vent Rate 26 Mechanical Rate Yes PEEP 5.0 Pressure Support Vent 450 Sodium 145 Potassium 4.9 Chloride 110 H Carbon Dioxide 21 Anion Gap 14 BUN 164.8 H* Creatinine 4.7 H Est GFR (CKD-EPI)AfAm 12.54 Est GFR (CKD-EPI)NonAf 10.82 POC Glucometer Random Glucose 135 H Calcium 8.0 L Phosphorus 4.6 Magnesium 2.1 Total Bilirubin 0.7 AST 14 L ALT 11 L Alkaline Phosphatase 57 Total Protein 5.2 L Albumin 2.1 L Blood Type Antibody Screen Crossmatch 12/15/19 12/15/19 12/15/19 05:44 11:01 12:34 WBC RBC Hgb Hct MCV MCH MCHC RDW Plt Count MPV Absolute Neuts (auto) Neutrophils % Lymphocytes % Monocytes % Eosinophils % Basophils % Nucleated RBC % PT with INR 15.30 H INR 1.29 H Anticoagulation Therapy Puncture Site Patient Temperature ABG pH ABG pCO2 ABG pO2 ABG HCO3 ABG O2 Sat (Measured) ABG O2 Content ABG Base Excess Ishan Test Patient On Oxygen O2 Delivery Device Oxygen Flow Rate Vent Mode Vent Rate Mechanical Rate PEEP Pressure Support Vent Sodium Potassium Chloride Carbon Dioxide Anion Gap BUN Creatinine Est GFR (CKD-EPI)AfAm Est GFR (CKD-EPI)NonAf POC Glucometer 132 143 Random Glucose Calcium Phosphorus Magnesium Total Bilirubin AST ALT Alkaline Phosphatase Total Protein Albumin Blood Type Antibody Screen Crossmatch Problem List - Problems (1) Bullous pemphigoid Code(s): L12.0 - BULLOUS PEMPHIGOID (2) Generalized weakness Code(s): R53.1 - WEAKNESS (3) Unable to ambulate Code(s): R26.2 - DIFFICULTY IN WALKING, NOT ELSEWHERE CLASSIFIED (4) Blisters of multiple sites Code(s): R23.8 - OTHER SKIN CHANGES (5) Abnormal liver enzymes Code(s): R74.8 - ABNORMAL LEVELS OF OTHER SERUM ENZYMES (6) Wound of foot Code(s): S91.309A - UNSPECIFIED OPEN WOUND, UNSPECIFIED FOOT, INITIAL ENCOUNTER (7) Afib Code(s): I48.91 - UNSPECIFIED ATRIAL FIBRILLATION (8) Anemia Code(s): D64.9 - ANEMIA, UNSPECIFIED Qualifiers: Qualified Code(s): D50.0 - Iron deficiency anemia secondary to blood loss (chronic) (9) BPH (benign prostatic hyperplasia) Code(s): N40.0 - BENIGN PROSTATIC HYPERPLASIA WITHOUT LOWER URINRY TRACT SYMP (10) CAD (coronary artery disease) Code(s): I25.10 - ATHSCL HEART DISEASE OF [place] CORONARY ARTERY W/O ANG PCTRS (11) CHF (congestive heart failure) Code(s): I50.9 - HEART FAILURE, UNSPECIFIED (12) CKD (chronic kidney disease) Code(s): N18.9 - CHRONIC KIDNEY DISEASE, UNSPECIFIED (13) Diabetes mellitus Code(s): E11.9 - TYPE 2 DIABETES MELLITUS WITHOUT COMPLICATIONS (14) Diastolic CHF Code(s): I50.30 - UNSPECIFIED DIASTOLIC (CONGESTIVE) HEART FAILURE (15) Gastritis Code(s): K29.70 - GASTRITIS, UNSPECIFIED, WITHOUT BLEEDING (16) HTN (hypertension) Code(s): I10 - ESSENTIAL (PRIMARY) HYPERTENSION (17) History of colon cancer Code(s): Z85.038 - PERSONAL HISTORY OF MALIGNANT NEOPLASM OF LARGE INTESTINE (18) History of duodenal ulcer Code(s): Z87.19 - PERSONAL HISTORY OF OTHER DISEASES OF THE DIGESTIVE SYSTEM (19) Hyperlipidemia Code(s): E78.5 - HYPERLIPIDEMIA, UNSPECIFIED (20) Hypothyroid Code(s): E03.9 - HYPOTHYROIDISM, UNSPECIFIED (21) Paroxysmal atrial fibrillation Code(s): I48.0 - PAROXYSMAL ATRIAL FIBRILLATION (22) Peripheral arterial disease Code(s): I73.9 - PERIPHERAL VASCULAR DISEASE, UNSPECIFIED (23) Peripheral vascular disease Code(s): I73.9 - PERIPHERAL VASCULAR DISEASE, UNSPECIFIED (24) Pulmonary hypertension Code(s): I27.2 - OTHER SECONDARY PULMONARY HYPERTENSION * DO NOT USE * (25) Seizure Code(s): R56.9 - UNSPECIFIED CONVULSIONS (26) Seizure disorder Code(s): G40.909 - EPILEPSY, UNSP, NOT INTRACTABLE, WITHOUT STATUS EPILEPTICUS ASSESSMENT AND PLAN: s/p Cardiopulmonary Arrest Acute Hypoxic and Hypercapneic Respiratory Failure Likely Aspiration Pneumonia Septic Shock Acute on Chronic Renal Failure Lactic Acidosis Bullous Pemphigoid CAD LV Diastolic Dysfunction Atrial Fibrillation Seizure Disorder h/o CVA Hypothyroidism Anemia Thrombocytopenia - continue antibiotics - Normal transfusion thresholds - monitor urine output, creatinine - rate control - Sedation vacation to assess mental status - continue volume assist control - enteral feeds - DVT/GI prophylaxis - ICU monitoring - Overall prognosis appears poor Dr Contreras Critical care time spent in reviewing chart, evaluating patient and formulating plan 35 min Problem List - Problems (1) Bullous pemphigoid Code(s): L12.0 - BULLOUS PEMPHIGOID (2) Generalized weakness Code(s): R53.1 - WEAKNESS (3) Unable to ambulate Code(s): R26.2 - DIFFICULTY IN WALKING, NOT ELSEWHERE CLASSIFIED (4) Blisters of multiple sites Code(s): R23.8 - OTHER SKIN CHANGES (5) Abnormal liver enzymes Code(s): R74.8 - ABNORMAL LEVELS OF OTHER SERUM ENZYMES (6) Wound of foot Code(s): S91.309A - UNSPECIFIED OPEN WOUND, UNSPECIFIED FOOT, INITIAL ENCOUNTER (7) Afib Code(s): I48.91 - UNSPECIFIED ATRIAL FIBRILLATION (8) Anemia Code(s): D64.9 - ANEMIA, UNSPECIFIED Qualifiers: Iron deficiency anemia type: chronic blood loss (9) BPH (benign prostatic hyperplasia) Code(s): N40.0 - BENIGN PROSTATIC HYPERPLASIA WITHOUT LOWER URINRY TRACT SYMP (10) CAD (coronary artery disease) Code(s): I25.10 - ATHSCL HEART DISEASE OF [place] CORONARY ARTERY W/O ANG PCTRS (11) CHF (congestive heart failure) Code(s): I50.9 - HEART FAILURE, UNSPECIFIED (12) CKD (chronic kidney disease) Code(s): N18.9 - CHRONIC KIDNEY DISEASE, UNSPECIFIED (13) Diabetes mellitus Code(s): E11.9 - TYPE 2 DIABETES MELLITUS WITHOUT COMPLICATIONS (14) Diastolic CHF Code(s): I50.30 - UNSPECIFIED DIASTOLIC (CONGESTIVE) HEART FAILURE (15) Gastritis Code(s): K29.70 - GASTRITIS, UNSPECIFIED, WITHOUT BLEEDING (16) HTN (hypertension) Code(s): I10 - ESSENTIAL (PRIMARY) HYPERTENSION (17) History of colon cancer Code(s): Z85.038 - PERSONAL HISTORY OF MALIGNANT NEOPLASM OF LARGE INTESTINE (18) History of duodenal ulcer Code(s): Z87.19 - PERSONAL HISTORY OF OTHER DISEASES OF THE DIGESTIVE SYSTEM (19) Hyperlipidemia Code(s): E78.5 - HYPERLIPIDEMIA, UNSPECIFIED (20) Hypothyroid Code(s): E03.9 - HYPOTHYROIDISM, UNSPECIFIED (21) Paroxysmal atrial fibrillation Code(s): I48.0 - PAROXYSMAL ATRIAL FIBRILLATION (22) Peripheral arterial disease Code(s): I73.9 - PERIPHERAL VASCULAR DISEASE, UNSPECIFIED (23) Peripheral vascular disease Code(s): I73.9 - PERIPHERAL VASCULAR DISEASE, UNSPECIFIED (24) Pulmonary hypertension Code(s): I27.2 - OTHER SECONDARY PULMONARY HYPERTENSION * DO NOT USE * (25) Seizure Code(s): R56.9 - UNSPECIFIED CONVULSIONS (26) Seizure disorder Code(s): G40.909 - EPILEPSY, UNSP, NOT INTRACTABLE, WITHOUT STATUS EPILEPTICUS
--- NOTE | 2019-12-15 14:42 | PN ---
Progress Note, Physician History of Present Illness: INTUBATED IN ICU HYPOTENSIVE ON PRESSORS AFEBRILE WBC WNL BC MSSA (12/06) BC (11/17) NO GROWTH CR INCREASED 4.7 - Current Medication List Current Medications: Active Medications Acetaminophen (Ofirmev Injection -) 1,000 mg IVPB Q6H PRN PRN Reason: PAIN Stop: 12/16/19 13:54 Albuterol/Ipratropium (Duoneb -) 1 amp NEB Q4H PRN PRN Reason: SHORT OF BREATH/WHEEZING Last Admin: 12/08/19 02:38 Dose: 1 amp Documented by: Apixaban (Eliquis -) 2.5 mg PO BID [facility] Last Admin: 12/15/19 10:33 Dose: 2.5 mg Documented by: Artificial Tears (Artificial Tears Ointment -) 1 applic OU BID [facility] Last Admin: 12/15/19 10:32 Dose: 2 drop Documented by: Artificial Tears (Artificial Tears) 1 drop OU BID PRN PRN Reason: DRY EYES Furosemide (Lasix Injection -) 60 mg IVPUSH ONCE ONE Stop: 12/15/19 14:34 Midazolam HCl 100 mg/ Sodium (Chloride) 100 mls @ 1 mls/hr IVPB TITR [facility]; Protocol Last Admin: 12/15/19 06:50 Dose: 10 mg/hr, 10 mls/hr Documented by: Cefazolin Sodium 500 mg/ (Dextrose) 50 mls @ 100 mls/hr IVPB BID [facility] Last Admin: 12/15/19 10:32 Dose: 100 mls/hr Documented by: Meropenem 500 mg/ Dextrose 100 mls @ 200 mls/hr IVPB Q12H [facility] Last Admin: 12/15/19 12:45 Dose: 200 mls/hr Documented by: Insulin Aspart (Novolog Vial Sliding Scale -) 1 vial SQ ACHS [facility]; Protocol Last Admin: 12/15/19 12:35 Dose: Not Given Documented by: Levetiracetam (Keppra Injection -) 500 mg IVPB BID [facility] Last Admin: 12/15/19 10:33 Dose: 500 mg Documented by: Levothyroxine Sodium (Synthroid Injection -) 20 mcg IVPUSH DAILY [facility] Last Admin: 12/15/19 10:33 Dose: 20 mcg Documented by: Methylprednisolone Sodium Succinate (Solu-Medrol -) 20 mg IVPUSH DAILY [facility] Last Admin: 12/15/19 10:33 Dose: 20 mg Documented by: Mycophenolate Mofetil (Cellcept Suspension -) 500 mg PO BID [facility] Last Admin: 12/15/19 10:33 Dose: 500 mg Documented by: Pantoprazole Sodium (Protonix Iv) 40 mg IVPUSH DAILY [facility] Last Admin: 12/15/19 10:33 Dose: 40 mg Documented by: Rosuvastatin Calcium (Crestor -) 10 mg PO HS [facility] Last Admin: 12/14/19 21:42 Dose: 10 mg Documented by: Silver Sulfadiazine (Silvadene -) 1 applic TP BID [facility] Last Admin: 12/15/19 14:33 Dose: 1 applic Documented by: Sodium Zirconium Cyclosilicate (Lokelma) 10 gm PO DAILY [facility] Last Admin: 12/15/19 10:33 Dose: 10 gm Documented by: Tamsulosin HCl (Flomax -) 0.4 mg PO 0830 [facility] Last Admin: 12/11/19 09:09 Dose: 0.4 mg Documented by: - Objective Vital Signs: Vital Signs Temperature 97.8 F 12/15/19 14:00 Pulse Rate 76 12/15/19 14:00 Respiratory Rate 18 12/15/19 14:00 Blood Pressure 152/78 12/15/19 14:00 O2 Sat by Pulse Oximetry (%) 96 12/15/19 12:05 Constitutional: Yes: No Distress Cardiovascular: Yes: Regular Rate and Rhythm, S1, S2 Respiratory: Yes: Mechanically Ventilated Gastrointestinal: Yes: Normal Bowel Sounds, Soft Integumentary: Yes: Other (+ DISSEMINATED ULCERATIVE LESIONS) Labs: CBC, BMP 12/15/19 05:00 12/15/19 05:00 INR, PTT INR 1.29 (0.83-1.09) H 12/15/19 11:01 Assessment/Plan + BLOOD C/S MSSA PROBABLE SKIN SOURCE ACUTE RESP FAILURE PNEUMOMIA + SPUTUM C/S MEROPENEM AZOTEMIA PLANTAR ULCER HEALED BULOUS PEMPHIGOID CEFAZOLIN/ MEROPENEM ADJUSTED FOR RENAL FAILURE REPEAT BC NO GROWTH ECHO NO VEGETATIONS VENTILATORY/ HEMODYNAMIC SUPPORT PROGNOSIS POOR
[2019-12-15] MEDS ORDERED: FUROSEMIDE 40 MG/4 ML INJECTABLE VIAL IVPUSH ONE (14:45)
[2019-12-15] MEDS: ROSUVASTATIN CA 10 MG TABLET (FP) PO SCH (21:04)
[2019-12-16] MEDS: MEROPENEM 500 MG in DEXTROSE 5%-WATER 100 ML IVPB SCH ×2 (01:17→12:51)
[2019-12-16 06:16] LABS: HEMATOCRIT 25.1 % (35.4-49); HEMOGLOBIN 8.1 GM/dL (11.7-16.9); MCHC 32.3 g/dl (32.0-35.9); MEAN CELL VOLUME 89.9 fl (80-96); MEAN PLT VOLUME 7.9 fl (7.5-11.1); PLATELET COUNT 103 K/MM3 (134-434); RBC 2.79 M/mm3 (4.00-5.60); RDW 16.7 % (11.9-15.9); WHITE BLOOD COUNT 6.5 K/mm3 (4.0-10.0)
[2019-12-16 06:24] LABS: ARTERIAL BLD GAS O2 SATURATION 98.6 mmHg (95-98); ARTERIAL BLOOD GAS BASE EXCESS -2.1 mmol/L (-2-2); ARTERIAL BLOOD GAS PO2 125.7 mmHg (80-100); ARTERIAL BLOOD GAS pH 7.429 (7.350-7.450)
[2019-12-16] MEDS: INSULIN SLIDING SCALE (NOVOLOG) 1 VIAL SQ SCH ×4 (06:24→21:02)
[2019-12-16 06:30] LABS: ALLENS TEST POSITIVE; VENT MODE A/C; VENT RATE 18
[2019-12-16 06:59] LABS: ALBUMIN 2.3 g/dl (3.4-5.0); BILIRUBIN,TOTAL 0.9 mg/dL (0.2-1); CALCIUM 8.1 mg/dL (8.5-10.1); CREATININE 4.5 mg/dL (0.55-1.3); MAGNESIUM 2.3 mg/dL (1.8-2.4); PHOSPHOROUS 6.2 mg/dL (2.5-4.9); POTASSIUM 4.8 mmol/L (3.5-5.1); TOT PROT 5.7 g/dl (6.4-8.2)
[2019-12-16 07:22] LABS: BLOOD UREA NITROGEN 164.4 mg/dL (7-18)
--- NOTE | 2019-12-16 07:59 | PN ---
Progress Note (short form) - Note Progress Note: HD#14 OVERNIGHT EVENTS No acute overnight events. ICU team in contact with son and HCP/NOK and they are having family discussion together regarding comfort care. At this time patient remains full code. OBJECTIVE Vital Signs Temp 98 F 12/16/19 06:00 Pulse 76 12/16/19 06:00 Resp 18 12/16/19 06:00 BP 161/96 12/16/19 06:00 Pulse Ox 95 12/15/19 20:33 Intake & Output 12/15/19 12/15/19 12/16/19 11:59 23:59 11:59 Intake Total 1070 1434 873 Output Total 960 1000 1900 Balance 110 434 -1027 Weight 107.91 kg 108.068 kg Intake: IV 120 24 28 Versed - 100 mg In Normal 120 24 28 Saline - 100 ml @ 1 MG/ HR 1 mls/hr IVPB TITR MICHAEL Rx#:[id number] IVPB 100 250 250 Oral 120 Tube Feeding 400 480 280 Tube Irrigant 450 560 315 Output: Urine 960 1000 1900 Void 960 1000 1900 Other: Voiding Method Indwelling Catheter Indwelling Catheter Bowel Movement No No No Body Mass Index (BMI) 30.4 Weight Measurement Method Built in [facility] Built in [facility] LINES: RIGHT IJ placed 12/08 TUBES: ETT placed 12/07 DRAINS: [place] EXAM GENERAL: sedated, intubated, on ventilator, eyes looking around but not tracking HEENT: ETT in place, no e/o facial or head trauma, no blood from ETT or OGT, no acute oropharyngeal ulcerations, right eyelid maintained closed and left eyelid maintained partly open, right pupil constricted 2mm, left pupil 5mm nonreactive to light (c/w cataract removal and c/w prior examinations), RIJ TLC in place NECK/BACK: no obvious neck hematoma or other trauma CARDIOVASCULAR: RRR, thready but palpable radial pulses LUNGS/RESPIRATORY: breath sounds coarse but no focal area of decreased sounds GI/ABDOMEN: symmetric, atraumatic outwardly : Duvall in place, normal external appearance MSK/EXTREMITIES: no evidence of acute trauma but see Skin exam DERM/SKIN: dry, no jaundice, numerous scattered lesions of various apparent ages which are not currently weeping, no surrounding erythema/warmth/induration/fluctuance and no indication of soft tissue infection NEUROLOGICAL: unable to assess A/O, +brainstem reflexes, not withdrawing from or responding to pain, no distal reflexes, but does blink eyes and with probing and loud voice prompt does look over at examiner, squeezes examiners hand slightly when asked DRIPS: Verded ANTI-INFECTIVES: Cefazolin, Meropenem CBCD WBC 6.5 K/mm3 (4.0-10.0) 12/16/19 05:30 RBC 2.79 M/mm3 (4.00-5.60) L 12/16/19 05:30 Hgb 8.1 GM/dL (11.7-16.9) L 12/16/19 05:30 Hct 25.1 % (35.4-49) L 12/16/19 05:30 MCV 89.9 fl (80-96) 12/16/19 05:30 MCHC 32.3 g/dl (32.0-35.9) 12/16/19 05:30 RDW 16.7 % (11.9-15.9) H 12/16/19 05:30 Plt Count 103 K/MM3 (134-434) L 12/16/19 05:30 MPV 7.9 fl (7.5-11.1) 12/16/19 05:30 CMP Sodium 144 mmol/L (136-145) 12/16/19 05:30 Potassium 4.8 mmol/L (3.5-5.1) 12/16/19 05:30 Chloride 108 mmol/L (98-107) H 12/16/19 05:30 Carbon Dioxide 24 mmol/L (21-32) 12/16/19 05:30 Anion Gap 12 MMOL/L (8-16) 12/16/19 05:30 BUN 164.4 mg/dL (7-18) H* 12/16/19 05:30 Creatinine 4.5 mg/dL (0.55-1.3) H 12/16/19 05:30 Random Glucose 136 mg/dL (74-106) H 12/16/19 05:30 Calcium 8.1 mg/dL (8.5-10.1) L 12/16/19 05:30 Total Bilirubin 0.9 mg/dL (0.2-1) 12/16/19 05:30 AST 18 U/L (15-37) 12/16/19 05:30 ALT 10 U/L (13-61) L 12/16/19 05:30 Alkaline Phosphatase 66 U/L (45-117) 12/16/19 05:30 Total Protein 5.7 g/dl (6.4-8.2) L 12/16/19 05:30 Albumin 2.3 g/dl (3.4-5.0) L 12/16/19 05:30 ABG Results ABG pH 7.429 (7.350-7.450) 12/16/19 05:30 ABG HCO3 21.8 mmol/L (22-27) L 12/16/19 05:30 ABG O2 Sat (Measured) 98.6 mmHg (95-98) H 12/16/19 05:30 ABG O2 Content No Result Required. 12/16/19 05:30 ABG Base Excess -2.1 mmol/L (-2-2) L 12/16/19 05:30 ABG done at [facility], 22/450/40%/5 Plat 20 Microbiology 12/14/19 06:12 Blood - Peripheral Venous Blood Culture - Preliminary NO GROWTH OBTAINED AFTER 48 HOURS, INCUBATION TO CONTINUE FOR 3 DAYS. 12/14/19 06:12 Blood - Peripheral Venous Blood Culture - Preliminary NO GROWTH OBTAINED AFTER 48 HOURS, INCUBATION TO CONTINUE FOR 3 DAYS. 12/08/19 08:50 Blood - Peripheral Venous Blood Culture - Final NO GROWTH AFTER 5 DAYS INCUBATION 12/08/19 08:45 Blood - Peripheral Venous Blood Culture - Final NO GROWTH AFTER 5 DAYS INCUBATION 12/07/19 19:10 Blood - Peripheral Venous Blood Culture - Final NO GROWTH AFTER 5 DAYS INCUBATION 12/07/19 14:00 Blood - Peripheral Venous Blood Culture - Final Staphylococcus Aureus Corynebacterium Striatum 12/09/19 15:30 Sputum - Endotrachea Suction/Ventilator Gram Stain - Final 12/09/19 15:30 Sputum - Endotrachea Suction/Ventilator Sputum Culture - Final Pseudomonas Aeruginosa 12/11/19 00:01 Urine - Urine [place] Urine Culture - Final NO GROWTH OBTAINED 12/08/19 16:30 Urine - Urine Clean Catch Urine Culture - Final Contaminated: Please Repeat CXR: pulmonary vascular congestion and pleural effusions slightly improved. ASSESSMENT/PLAN 79YOM with g/o diastolic CHF, Afib, CAD s/p PCI, HTN, seziure d/o, CVA with RIGHT sided residual deficit, cataract removal, CKD, hypothyroidism, and bullous pemphigoid. Initially admitted from ED for weakness and AMS, came to ICU after rapid response called on 12/09/19 for unresponsiveness and suspected aspiration event. Shortly thereafter had short-lived PEA cardiopulmonary arrest with ROSC achieved, since then has been intubated, sedated, on and off pressors. NEURO/PSYCH: seizure d/o, h/o CVA with residual right sided deficits -Neurology following, appreciate recs -Intubated -HOLD Versed for now - monitor mental status off sedatives -Monitor brainstem reflexes CV: s/p cardiopulmonary arrest with ROSC 12/09/19, h/o Afib, diastolic CHF, CAD, HTN -Cardiology following, appreciate recs -Vascular following, appreciate recs -For periods of bradycardia, ensure electrolytes are repleted -If concurrent with hypotension, consider dopamine RESP: ARDS, aspiration PNA, COVID-19 negative 12/02 and 12/07 -Pulmonology consulting, appreciate recs -Continue ventilator -Sedation vacations -Continue steroid taper (10 SoluMedrol today) -DuoNebs prn wheezing GI: No concerns at this time. -Continue to monitor RENAL/: LETITIA on CKD -Renal following, appreciate recs -Family amenable to HD despite poor prognosis -Monitor UOP (has been adequate past 24 hours) -No indication for HD at this time -Will assess for possibility of encephalopathy after patient has been off sedatives for hours HEME: Anemia -Heme/Onc following, appreciate recs -Continue RetaCrit 40,000U SQ weekly -Transfuse for Hb < 7 ENDOCRINE: Hypothyroidism -Continue levothyroxine ID: Aspiration PNA, sputum with pseudomonas -ID following, appreciate recs -Cefazolin and Meropenem day 7 MSK: Deconditioning -PT/OT when able DERM: Bullous pemphigoid -Silvadene applications -Monitor lesions -Getting steroid taper -Continue Cellcept FEN: -Hold IVF -Monitor/replete electrolytes -Nephro TF diet 45cc/hr PPX -DVT: HSQ, apixaban -GI: Protonix CODE STATUS: Full Code. ICU team in contact with NOK/ Mandy Jenkins and son, Cj Jenkins ([phone]), who are having family discussion about possibility of switching to comfort care. DISPO PLAN: Continued ICU care. Discussed patient with ICU Attending. Catailna Silveira MD ICU Consult Service
[2019-12-16] MEDS ORDERED: MEROPENEM 500 MG VIAL (RESTRICTED TO ID) IVPB ONE ×2 (09:23→20:55)
[2019-12-16] MEDS ORDERED: DEXTROSE 5%-WATER 100 ML IVPB ONE ×2 (09:23→20:55)
[2019-12-16] MEDS ORDERED: PT OWN MED DRAWER 7, Y5N ONE ×2 (09:25→20:55)
[2019-12-16] MEDS: PANTOPRAZOLE SODIUM 40 MG VIAL IVPUSH SCH (09:28)
[2019-12-16] MEDS: LEVOTHYROXINE SODIUM 100 MCG VIAL IVPUSH SCH (09:28)
[2019-12-16] MEDS: levETIRAcetam 500 MG/5 ML INJECTION VIAL IVPB SCH ×2 (09:29→21:02)
[2019-12-16] MEDS: APIXABAN 2.5 MG TABLET PO SCH ×2 (09:29→21:04)
[2019-12-16] MEDS: methylPREDNISolone NA SUCC 40 MG/1 ML VIAL IVPUSH SCH (09:29)
[2019-12-16] MEDS: CEFAZOLIN 500 MG in DEXTROSE 5%-WATER - 50 ML IVPB SCH ×2 (09:30→21:03)
[2019-12-16] MEDS: SODIUM ZIRCONIUM CYCLOSILICATE (LOKELMA) 5 GM PACKET PO SCH (09:30)
[2019-12-16] MEDS: MYCOPHENOLATE MOFETIL 200 MG/ML SUSPENSION PO SCH ×2 (09:30→21:30)
[2019-12-16] MEDS: MINERAL OIL/PETROLATUM,WHITE 3.5 GM TUBE OU SCH ×2 (09:31→21:04)
[2019-12-16] MEDS: SILVER SULFADIAZINE 1% TOP CREAM 50 GM JAR TP SCH ×2 (09:31→21:03)
[2019-12-16] MEDS ORDERED: methylPREDNISolone NA SUCC 125 MG/2 ML VIAL IVPUSH ONE (10:00)
[2019-12-16] MEDS ORDERED: methylPREDNISolone NA SUCC 40 MG/1 ML VIAL IVPUSH ONE (11:27)
--- NOTE | 2019-12-16 11:39 | PN ---
Teaching Attending Note Name of Resident: Catalina Geigerean ATTENDING PHYSICIAN STATEMENT I saw and evaluated the patient. I reviewed the resident's note and discussed the case with the resident. I agree with the resident's findings and plan as documented. SUBJECTIVE: Patient seen and examined in the ICU. Remains intubated, sedated. Remains off pressors for hemodynamic support. OBJECTIVE: Intake & Output 12/13/19 12/14/19 12/15/19 12/16/19 23:59 23:59 23:59 23:59 Intake Total 7864 136 8501 873 Output Total 2450 4100 1960 1900 Balance -609 -5879 084 102 Weight 252 lb 4.364 oz 244 lb 8 oz 237 lb 14.4 oz 238 lb 4 oz Last Vital Signs Temp Pulse Resp BP Pulse Ox 98.0 F 73 18 152/76 95 12/16/19 10:00 12/16/19 10:00 12/16/19 10:00 12/16/19 10:00 12/15/19 20:33 Active Medications Acetaminophen (Ofirmev Injection -) 1,000 mg IVPB Q6H PRN PRN Reason: PAIN Stop: 12/16/19 13:54 Albuterol/Ipratropium (Duoneb -) 1 amp NEB Q4H PRN PRN Reason: SHORT OF BREATH/WHEEZING Last Admin: 12/08/19 02:38 Dose: 1 amp Documented by: Apixaban (Eliquis -) 2.5 mg PO BID [facility] Last Admin: 12/16/19 09:29 Dose: 2.5 mg Documented by: Artificial Tears (Artificial Tears Ointment -) 1 applic OU BID [facility] Last Admin: 12/16/19 09:31 Dose: 1 drop Documented by: Artificial Tears (Artificial Tears) 1 drop OU BID PRN PRN Reason: DRY EYES Cefazolin Sodium 500 mg/ (Dextrose) 50 mls @ 100 mls/hr IVPB BID [facility] Last Admin: 12/16/19 09:30 Dose: 100 mls/hr Documented by: Meropenem 500 mg/ Dextrose 100 mls @ 200 mls/hr IVPB Q12H [facility] Last Admin: 12/16/19 01:17 Dose: 200 mls/hr Documented by: Insulin Aspart (Novolog Vial Sliding Scale -) 1 vial SQ ACHS [facility]; Protocol Last Admin: 12/16/19 11:17 Dose: 2 units Documented by: Levetiracetam (Keppra Injection -) 500 mg IVPB BID [facility] Last Admin: 12/16/19 09:29 Dose: 500 mg Documented by: Levothyroxine Sodium (Synthroid Injection -) 20 mcg IVPUSH DAILY [facility] Last Admin: 12/16/19 09:28 Dose: 20 mcg Documented by: Methylprednisolone Sodium Succinate (Solu-Medrol -) 10 mg IVPUSH ONCE [facility] Mycophenolate Mofetil (Cellcept Suspension -) 500 mg PO BID [facility] Last Admin: 12/16/19 09:30 Dose: 500 mg Documented by: Pantoprazole Sodium (Protonix Iv) 40 mg IVPUSH DAILY [facility] Last Admin: 12/16/19 09:28 Dose: 40 mg Documented by: Rosuvastatin Calcium (Crestor -) 10 mg PO HS [facility] Last Admin: 12/15/19 21:04 Dose: 10 mg Documented by: Silver Sulfadiazine (Silvadene -) 1 applic TP BID [facility] Last Admin: 12/16/19 09:31 Dose: 1 applic Documented by: Sodium Zirconium Cyclosilicate (Lokelma) 10 gm PO DAILY [facility] Last Admin: 12/16/19 09:30 Dose: 10 gm Documented by: Tamsulosin HCl (Flomax -) 0.4 mg PO 829 [facility] Last Admin: 12/11/19 09:09 Dose: 0.4 mg Documented by: Gen: intubated, sedated Heart: RRR Lung: decreased breath sounds at the bases Abd: softly distended, nontender Ext: no edema, multiple ulcers Laboratory Results - last 24 hr 12/15/19 12/15/19 12/15/19 11:01 12:34 17:01 WBC RBC Hgb Hct MCV MCH MCHC RDW Plt Count MPV PT with INR 15.30 H INR 1.29 H Anticoagulation Therapy Puncture Site Patient Temperature ABG pH ABG pCO2 ABG pO2 ABG HCO3 ABG O2 Sat (Measured) ABG O2 Content ABG Base Excess Ishan Test Patient On Oxygen O2 Delivery Device Oxygen Flow Rate Vent Mode Vent Rate Mechanical Rate PEEP Pressure Support Vent Sodium Potassium Chloride Carbon Dioxide Anion Gap BUN Creatinine Est GFR (CKD-EPI)AfAm Est GFR (CKD-EPI)NonAf POC Glucometer 143 227 Random Glucose Calcium Phosphorus Magnesium Total Bilirubin AST ALT Alkaline Phosphatase Total Protein Albumin 12/15/19 12/16/19 12/16/19 20:55 05:30 05:30 WBC 6.5 RBC 2.79 L Hgb 8.1 L Hct 25.1 L MCV 89.9 MCH 29.0 MCHC 32.3 RDW 16.7 H Plt Count 103 L MPV 7.9 PT with INR INR Anticoagulation Therapy Puncture Site Patient Temperature ABG pH ABG pCO2 ABG pO2 ABG HCO3 ABG O2 Sat (Measured) ABG O2 Content ABG Base Excess Ishan Test Patient On Oxygen O2 Delivery Device Oxygen Flow Rate Vent Mode Vent Rate Mechanical Rate PEEP Pressure Support Vent Sodium 144 Potassium 4.8 Chloride 108 H Carbon Dioxide 24 Anion Gap 12 BUN 164.4 H* Creatinine 4.5 H Est GFR (CKD-EPI)AfAm 13.22 Est GFR (CKD-EPI)NonAf 11.40 POC Glucometer 219 Random Glucose 136 H Calcium 8.1 L Phosphorus 6.2 H Magnesium 2.3 Total Bilirubin 0.9 AST 18 ALT 10 L Alkaline Phosphatase 66 Total Protein 5.7 L Albumin 2.3 L 12/16/19 12/16/19 12/16/19 05:30 06:17 11:12 WBC RBC Hgb Hct MCV MCH MCHC RDW Plt Count MPV PT with INR INR Anticoagulation Therapy No Result Required. Puncture Site Right radial Patient Temperature No Result Required. ABG pH 7.429 ABG pCO2 33.70 L ABG pO2 125.7 H ABG HCO3 21.8 L ABG O2 Sat (Measured) 98.6 H ABG O2 Content No Result Required. ABG Base Excess -2.1 L Ishan Test Positive Patient On Oxygen Yes O2 Delivery Device Vent Oxygen Flow Rate 40% Vent Mode A/c Vent Rate 18 Mechanical Rate Yes PEEP 5.0 Pressure Support Vent 450 Sodium Potassium Chloride Carbon Dioxide Anion Gap BUN Creatinine Est GFR (CKD-EPI)AfAm Est GFR (CKD-EPI)NonAf POC Glucometer 143 152 Random Glucose Calcium Phosphorus Magnesium Total Bilirubin AST ALT Alkaline Phosphatase Total Protein Albumin Problem List - Problems (1) Bullous pemphigoid Code(s): L12.0 - BULLOUS PEMPHIGOID (2) Generalized weakness Code(s): R53.1 - WEAKNESS (3) Unable to ambulate Code(s): R26.2 - DIFFICULTY IN WALKING, NOT ELSEWHERE CLASSIFIED (4) Blisters of multiple sites Code(s): R23.8 - OTHER SKIN CHANGES (5) Abnormal liver enzymes Code(s): R74.8 - ABNORMAL LEVELS OF OTHER SERUM ENZYMES (6) Wound of foot Code(s): S91.309A - UNSPECIFIED OPEN WOUND, UNSPECIFIED FOOT, INITIAL ENCOUNTER (7) Afib Code(s): I48.91 - UNSPECIFIED ATRIAL FIBRILLATION (8) Anemia Code(s): D64.9 - ANEMIA, UNSPECIFIED Qualifiers: Qualified Code(s): D50.0 - Iron deficiency anemia secondary to blood loss (chronic) (9) BPH (benign prostatic hyperplasia) Code(s): N40.0 - BENIGN PROSTATIC HYPERPLASIA WITHOUT LOWER URINRY TRACT SYMP (10) CAD (coronary artery disease) Code(s): I25.10 - ATHSCL HEART DISEASE OF [place] CORONARY ARTERY W/O ANG PCTRS (11) CHF (congestive heart failure) Code(s): I50.9 - HEART FAILURE, UNSPECIFIED (12) CKD (chronic kidney disease) Code(s): N18.9 - CHRONIC KIDNEY DISEASE, UNSPECIFIED (13) Diabetes mellitus Code(s): E11.9 - TYPE 2 DIABETES MELLITUS WITHOUT COMPLICATIONS (14) Diastolic CHF Code(s): I50.30 - UNSPECIFIED DIASTOLIC (CONGESTIVE) HEART FAILURE (15) Gastritis Code(s): K29.70 - GASTRITIS, UNSPECIFIED, WITHOUT BLEEDING (16) HTN (hypertension) Code(s): I10 - ESSENTIAL (PRIMARY) HYPERTENSION (17) History of colon cancer Code(s): Z85.038 - PERSONAL HISTORY OF MALIGNANT NEOPLASM OF LARGE INTESTINE (18) History of duodenal ulcer Code(s): Z87.19 - PERSONAL HISTORY OF OTHER DISEASES OF THE DIGESTIVE SYSTEM (19) Hyperlipidemia Code(s): E78.5 - HYPERLIPIDEMIA, UNSPECIFIED (20) Hypothyroid Code(s): E03.9 - HYPOTHYROIDISM, UNSPECIFIED (21) Paroxysmal atrial fibrillation Code(s): I48.0 - PAROXYSMAL ATRIAL FIBRILLATION (22) Peripheral arterial disease Code(s): I73.9 - PERIPHERAL VASCULAR DISEASE, UNSPECIFIED (23) Peripheral vascular disease Code(s): I73.9 - PERIPHERAL VASCULAR DISEASE, UNSPECIFIED (24) Pulmonary hypertension Code(s): I27.2 - OTHER SECONDARY PULMONARY HYPERTENSION * DO NOT USE * (25) Seizure Code(s): R56.9 - UNSPECIFIED CONVULSIONS (26) Seizure disorder Code(s): G40.909 - EPILEPSY, UNSP, NOT INTRACTABLE, WITHOUT STATUS EPILEPTICUS ASSESSMENT AND PLAN: s/p Cardiopulmonary Arrest Acute Hypoxic and Hypercapneic Respiratory Failure Likely Aspiration Pneumonia Septic Shock Acute on Chronic Renal Failure Lactic Acidosis Bullous Pemphigoid CAD LV Diastolic Dysfunction Atrial Fibrillation Seizure Disorder h/o CVA Hypothyroidism Anemia Thrombocytopenia (?) Uremia - continue antibiotics - Normal transfusion thresholds - monitor urine output, creatinine - rate control - Sedation vacation to assess mental status - continue volume assist control - enteral feeds - DVT/GI prophylaxis - ICU monitoring Dr Contreras Critical care time spent in reviewing chart, evaluating patient and formulating plan 35 min Problem List - Problems (1) Bullous pemphigoid Code(s): L12.0 - BULLOUS PEMPHIGOID (2) Generalized weakness Code(s): R53.1 - WEAKNESS (3) Unable to ambulate Code(s): R26.2 - DIFFICULTY IN WALKING, NOT ELSEWHERE CLASSIFIED (4) Blisters of multiple sites Code(s): R23.8 - OTHER SKIN CHANGES (5) Abnormal liver enzymes Code(s): R74.8 - ABNORMAL LEVELS OF OTHER SERUM ENZYMES (6) Wound of foot Code(s): S91.309A - UNSPECIFIED OPEN WOUND, UNSPECIFIED FOOT, INITIAL ENCOUNTER (7) Afib Code(s): I48.91 - UNSPECIFIED ATRIAL FIBRILLATION (8) Anemia Code(s): D64.9 - ANEMIA, UNSPECIFIED Qualifiers: Iron deficiency anemia type: chronic blood loss (9) BPH (benign prostatic hyperplasia) Code(s): N40.0 - BENIGN PROSTATIC HYPERPLASIA WITHOUT LOWER URINRY TRACT SYMP (10) CAD (coronary artery disease) Code(s): I25.10 - ATHSCL HEART DISEASE OF [place] CORONARY ARTERY W/O ANG PCTRS (11) CHF (congestive heart failure) Code(s): I50.9 - HEART FAILURE, UNSPECIFIED (12) CKD (chronic kidney disease) Code(s): N18.9 - CHRONIC KIDNEY DISEASE, UNSPECIFIED (13) Diabetes mellitus Code(s): E11.9 - TYPE 2 DIABETES MELLITUS WITHOUT COMPLICATIONS (14) Diastolic CHF Code(s): I50.30 - UNSPECIFIED DIASTOLIC (CONGESTIVE) HEART FAILURE (15) Gastritis Code(s): K29.70 - GASTRITIS, UNSPECIFIED, WITHOUT BLEEDING (16) HTN (hypertension) Code(s): I10 - ESSENTIAL (PRIMARY) HYPERTENSION (17) History of colon cancer Code(s): Z85.038 - PERSONAL HISTORY OF MALIGNANT NEOPLASM OF LARGE INTESTINE (18) History of duodenal ulcer Code(s): Z87.19 - PERSONAL HISTORY OF OTHER DISEASES OF THE DIGESTIVE SYSTEM (19) Hyperlipidemia Code(s): E78.5 - HYPERLIPIDEMIA, UNSPECIFIED (20) Hypothyroid Code(s): E03.9 - HYPOTHYROIDISM, UNSPECIFIED (21) Paroxysmal atrial fibrillation Code(s): I48.0 - PAROXYSMAL ATRIAL FIBRILLATION (22) Peripheral arterial disease Code(s): I73.9 - PERIPHERAL VASCULAR DISEASE, UNSPECIFIED (23) Peripheral vascular disease Code(s): I73.9 - PERIPHERAL VASCULAR DISEASE, UNSPECIFIED (24) Pulmonary hypertension Code(s): I27.2 - OTHER SECONDARY PULMONARY HYPERTENSION * DO NOT USE * (25) Seizure Code(s): R56.9 - UNSPECIFIED CONVULSIONS (26) Seizure disorder Code(s): G40.909 - EPILEPSY, UNSP, NOT INTRACTABLE, WITHOUT STATUS EPILEPTICUS
--- NOTE | 2019-12-16 12:04 | PN ---
Progress Note, Physician History of Present Illness: INTUBATED IN ICU AFEBRILE WBC WNL BC MSSA (12/06) BC (11/17) NO GROWTH CR 4.5 - Current Medication List Current Medications: Active Medications Acetaminophen (Ofirmev Injection -) 1,000 mg IVPB Q6H PRN PRN Reason: PAIN Stop: 12/16/19 13:54 Albuterol/Ipratropium (Duoneb -) 1 amp NEB Q4H PRN PRN Reason: SHORT OF BREATH/WHEEZING Last Admin: 12/08/19 02:38 Dose: 1 amp Documented by: Apixaban (Eliquis -) 2.5 mg PO BID [facility] Last Admin: 12/16/19 09:29 Dose: 2.5 mg Documented by: Artificial Tears (Artificial Tears Ointment -) 1 applic OU BID [facility] Last Admin: 12/16/19 09:31 Dose: 1 drop Documented by: Artificial Tears (Artificial Tears) 1 drop OU BID PRN PRN Reason: DRY EYES Cefazolin Sodium 500 mg/ (Dextrose) 50 mls @ 100 mls/hr IVPB BID [facility] Last Admin: 12/16/19 09:30 Dose: 100 mls/hr Documented by: Meropenem 500 mg/ Dextrose 100 mls @ 200 mls/hr IVPB Q12H [facility] Last Admin: 12/16/19 01:17 Dose: 200 mls/hr Documented by: Insulin Aspart (Novolog Vial Sliding Scale -) 1 vial SQ ACHS [facility]; Protocol Last Admin: 12/16/19 11:17 Dose: 2 units Documented by: Levetiracetam (Keppra Injection -) 500 mg IVPB BID [facility] Last Admin: 12/16/19 09:29 Dose: 500 mg Documented by: Levothyroxine Sodium (Synthroid Injection -) 20 mcg IVPUSH DAILY [facility] Last Admin: 12/16/19 09:28 Dose: 20 mcg Documented by: Methylprednisolone Sodium Succinate (Solu-Medrol -) 10 mg IVPUSH ONCE [facility] Mycophenolate Mofetil (Cellcept Suspension -) 500 mg PO BID [facility] Last Admin: 12/16/19 09:30 Dose: 500 mg Documented by: Pantoprazole Sodium (Protonix Iv) 40 mg IVPUSH DAILY [facility] Last Admin: 12/16/19 09:28 Dose: 40 mg Documented by: Rosuvastatin Calcium (Crestor -) 10 mg PO HS [facility] Last Admin: 12/15/19 21:04 Dose: 10 mg Documented by: Silver Sulfadiazine (Silvadene -) 1 applic TP BID [facility] Last Admin: 12/16/19 09:31 Dose: 1 applic Documented by: Sodium Zirconium Cyclosilicate (Lokelma) 10 gm PO DAILY [facility] Last Admin: 12/16/19 09:30 Dose: 10 gm Documented by: Tamsulosin HCl (Flomax -) 0.4 mg PO 829 [facility] Last Admin: 12/11/19 09:09 Dose: 0.4 mg Documented by: - Objective Vital Signs: Vital Signs Temperature 98.0 F 12/16/19 10:00 Pulse Rate 73 12/16/19 10:00 Respiratory Rate 18 12/16/19 10:00 Blood Pressure 152/76 12/16/19 10:00 O2 Sat by Pulse Oximetry (%) 95 12/15/19 20:33 Constitutional: Yes: No Distress Eyes: Yes: Conjunctiva Clear Cardiovascular: Yes: Regular Rate and Rhythm, S1, S2 Respiratory: Yes: Mechanically Ventilated Gastrointestinal: Yes: Normal Bowel Sounds, Soft. No: Tenderness Edema: Yes Labs: CBC, BMP 12/16/19 05:30 12/16/19 05:30 INR, PTT INR 1.29 (0.83-1.09) H 12/15/19 11:01 Assessment/Plan + BLOOD C/S MSSA PROBABLE SKIN SOURCE ACUTE RESP FAILURE PNEUMOMIA + SPUTUM C/S MEROPENEM AZOTEMIA PLANTAR ULCER HEALED BULOUS PEMPHIGOID CEFAZOLIN/ MEROPENEM ADJUSTED FOR RENAL FAILURE REPEAT BC NO GROWTH ECHO NO VEGETATIONS VENTILATORY/ HEMODYNAMIC SUPPORT PROGNOSIS POOR
--- NOTE | 2019-12-16 16:17 | PN ---
Progress Note, Physician History of Present Illness: Pt seen and examined at bedside. He remains in the ICU. He remains intubated. - Current Medication List Current Medications: Active Medications Albuterol/Ipratropium (Duoneb -) 1 amp NEB Q4H PRN PRN Reason: SHORT OF BREATH/WHEEZING Last Admin: 12/08/19 02:38 Dose: 1 amp Documented by: Apixaban (Eliquis -) 2.5 mg PO BID [facility] Last Admin: 12/16/19 09:29 Dose: 2.5 mg Documented by: Artificial Tears (Artificial Tears Ointment -) 1 applic OU BID [facility] Last Admin: 12/16/19 09:31 Dose: 1 drop Documented by: Artificial Tears (Artificial Tears) 1 drop OU BID PRN PRN Reason: DRY EYES Cefazolin Sodium 500 mg/ (Dextrose) 50 mls @ 100 mls/hr IVPB BID [facility] Last Admin: 12/16/19 09:30 Dose: 100 mls/hr Documented by: Meropenem 500 mg/ Dextrose 100 mls @ 200 mls/hr IVPB Q12H [facility] Last Admin: 12/16/19 12:51 Dose: 200 mls/hr Documented by: Insulin Aspart (Novolog Vial Sliding Scale -) 1 vial SQ ACHS [facility]; Protocol Last Admin: 12/16/19 11:17 Dose: 2 units Documented by: Levetiracetam (Keppra Injection -) 500 mg IVPB BID [facility] Last Admin: 12/16/19 09:29 Dose: 500 mg Documented by: Levothyroxine Sodium (Synthroid Injection -) 20 mcg IVPUSH DAILY [facility] Last Admin: 12/16/19 09:28 Dose: 20 mcg Documented by: Mycophenolate Mofetil (Cellcept Suspension -) 500 mg PO BID [facility] Last Admin: 12/16/19 09:30 Dose: 500 mg Documented by: Pantoprazole Sodium (Protonix Iv) 40 mg IVPUSH DAILY [facility] Last Admin: 12/16/19 09:28 Dose: 40 mg Documented by: Rosuvastatin Calcium (Crestor -) 10 mg PO HS [facility] Last Admin: 12/15/19 21:04 Dose: 10 mg Documented by: Sevelamer Carbonate (Renvela Powder Packet -) 0.8 gm PO TIDCM [facility] Silver Sulfadiazine (Silvadene -) 1 applic TP BID [facility] Last Admin: 12/16/19 09:31 Dose: 1 applic Documented by: Sodium Zirconium Cyclosilicate (Lokelma) 10 gm PO DAILY [facility] Last Admin: 12/16/19 09:30 Dose: 10 gm Documented by: Tamsulosin HCl (Flomax -) 0.4 mg PO 829 [facility] Last Admin: 12/11/19 09:09 Dose: 0.4 mg Documented by: - Objective Vital Signs: Vital Signs Temperature 97.4 F L 12/16/19 14:00 Pulse Rate 80 12/16/19 14:00 Respiratory Rate 18 12/16/19 14:31 Blood Pressure 159/71 12/16/19 14:00 O2 Sat by Pulse Oximetry (%) 99 12/16/19 12:00 Constitutional: Yes: Calm Eyes: Yes: Conjunctiva Clear HENT: Yes: Atraumatic Neck: Yes: Supple Cardiovascular: Yes: S1, S2 Respiratory: Yes: Mechanically Ventilated Gastrointestinal: Yes: Soft Genitourinary: Yes: [place] Present Musculoskeletal: Yes: Muscle Weakness Edema: Yes Edema: LLE: Trace, RLE: Trace Neurological: Yes: Lethargy Labs: CBC, BMP 12/16/19 05:30 12/16/19 05:30 INR, PTT INR 1.29 (0.83-1.09) H 12/15/19 11:01 Problem List - Problems (1) Acute respiratory failure Code(s): J96.00 - ACUTE RESPIRATORY FAILURE, UNSP W HYPOXIA OR HYPERCAPNIA (2) Bullous pemphigoid Code(s): L12.0 - BULLOUS PEMPHIGOID Assessment/Plan Current Medications Generic Name Dose Route Start Last Admin Trade Name Freq PRN Reason Stop Dose Admin Albuterol/Ipratropium 1 amp 12/07/19 13:25 12/08/19 02:38 Duoneb - NEB 1 amp Q4H PRN Administration SHORT OF BREATH/WHEEZING Apixaban 2.5 mg 12/10/19 22:00 12/16/19 09:29 Eliquis - PO 2.5 mg BID [facility] Administration Artificial Tears 1 applic 12/14/19 23:45 12/16/19 09:31 Artificial Tears Ointment - OU 1 drop BID [facility] Administration Artificial Tears 1 drop 12/15/19 07:31 Artificial Tears OU BID PRN DRY EYES Cefazolin Sodium 500 mg/ 50 mls @ 100 mls/hr 12/12/19 12:45 12/16/19 09:30 Dextrose IVPB 100 mls/hr BID [facility] Administration Meropenem 500 mg/ Dextrose 100 mls @ 200 mls/hr 12/12/19 12:45 12/16/19 12:51 IVPB 200 mls/hr Q12H [facility] Administration Insulin Aspart 1 vial 12/10/19 07:00 12/16/19 11:17 Novolog Vial Sliding Scale - SQ 2 units ACHS [facility] Administration Protocol Levetiracetam 500 mg 12/09/19 10:00 12/16/19 09:29 Keppra Injection - IVPB 500 mg BID [facility] Administration Levothyroxine Sodium 20 mcg 12/09/19 10:00 12/16/19 09:28 Synthroid Injection - IVPUSH 20 mcg DAILY [facility] Administration Mycophenolate Mofetil 500 mg 12/10/19 22:00 12/16/19 09:30 Cellcept Suspension - PO 500 mg BID [facility] Administration Pantoprazole Sodium 40 mg 12/09/19 10:00 12/16/19 09:28 Protonix Iv IVPUSH 40 mg DAILY [facility] Administration Rosuvastatin Calcium 10 mg 12/07/19 22:00 12/15/19 21:04 Crestor - PO 10 mg HS [facility] Administration Sevelamer Carbonate 0.8 gm 12/16/19 17:30 Renvela Powder Packet - PO TIDCM [facility] Silver Sulfadiazine 1 applic 12/15/19 12:45 12/16/19 09:31 Silvadene - TP 1 applic BID [facility] Administration Sodium Zirconium Cyclosilicate 10 gm 12/13/19 15:30 12/16/19 09:30 Lokelma PO 10 gm DAILY [facility] Administration Tamsulosin HCl 0.4 mg 12/08/19 08:30 12/11/19 09:09 Flomax - PO 0.4 mg 0830 [facility] Administration Impression 1. CKD 2. CHF 3. BPH 4. a. fib 5. CAD 6. epilepsy 7. proteinuria 8. anemia 9. foot ulcer 10. abd wall cellulitis 11. bullous pemphigoid 12. LETITIA 13. hyperkalemia 14. cardiac arrest 15. resp failure on vent 16. 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
[2019-12-16] MEDS: SEVELAMER CARBONATE 0.8 GM POWDER PACKET PO SCH (16:45)
--- NOTE | 2019-12-16 18:06 | PN ---
Progress Note, Physician Chief Complaint: s/p Cardiopulmonary Arrest Acute Hypoxic and Hypercapneic Respiratory Failure Likely Aspiration Pneumonia Septic Shock Acute on Chronic Renal Failure Lactic Acidosis Bullous Pemphigoid CAD LV Diastolic Dysfunction Atrial Fibrillation Seizure Disorder h/o CVA Hypothyroidism Anemia Thrombocytopenia History of Present Illness: Remains intubated in ICU No events overnight On eliquis for Pafib - Current Medication List Current Medications: Active Medications Albuterol/Ipratropium (Duoneb -) 1 amp NEB Q4H PRN PRN Reason: SHORT OF BREATH/WHEEZING Last Admin: 12/08/19 02:38 Dose: 1 amp Documented by: Apixaban (Eliquis -) 2.5 mg PO BID [facility] Last Admin: 12/16/19 09:29 Dose: 2.5 mg Documented by: Artificial Tears (Artificial Tears Ointment -) 1 applic OU BID [facility] Last Admin: 12/16/19 09:31 Dose: 1 drop Documented by: Artificial Tears (Artificial Tears) 1 drop OU BID PRN PRN Reason: DRY EYES Cefazolin Sodium 500 mg/ (Dextrose) 50 mls @ 100 mls/hr IVPB BID [facility] Last Admin: 12/16/19 09:30 Dose: 100 mls/hr Documented by: Meropenem 500 mg/ Dextrose 100 mls @ 200 mls/hr IVPB Q12H [facility] Last Admin: 12/16/19 12:51 Dose: 200 mls/hr Documented by: Insulin Aspart (Novolog Vial Sliding Scale -) 1 vial SQ ACHS [facility]; Protocol Last Admin: 12/16/19 16:45 Dose: 4 units Documented by: Levetiracetam (Keppra Injection -) 500 mg IVPB BID [facility] Last Admin: 12/16/19 09:29 Dose: 500 mg Documented by: Levothyroxine Sodium (Synthroid Injection -) 20 mcg IVPUSH DAILY [facility] Last Admin: 12/16/19 09:28 Dose: 20 mcg Documented by: Mycophenolate Mofetil (Cellcept Suspension -) 500 mg PO BID [facility] Last Admin: 12/16/19 09:30 Dose: 500 mg Documented by: Pantoprazole Sodium (Protonix Iv) 40 mg IVPUSH DAILY [facility] Last Admin: 12/16/19 09:28 Dose: 40 mg Documented by: Rosuvastatin Calcium (Crestor -) 10 mg PO HS [facility] Last Admin: 12/15/19 21:04 Dose: 10 mg Documented by: Sevelamer Carbonate (Renvela Powder Packet -) 0.8 gm PO TIDCM [facility] Last Admin: 12/16/19 16:45 Dose: 0.8 gm Documented by: Silver Sulfadiazine (Silvadene -) 1 applic TP BID [facility] Last Admin: 12/16/19 09:31 Dose: 1 applic Documented by: Sodium Zirconium Cyclosilicate (Lokelma) 10 gm PO DAILY [facility] Last Admin: 12/16/19 09:30 Dose: 10 gm Documented by: Tamsulosin HCl (Flomax -) 0.4 mg PO 829 [facility] Last Admin: 12/11/19 09:09 Dose: 0.4 mg Documented by: - Objective Vital Signs: Vital Signs Temperature 97.4 F L 12/16/19 14:00 Pulse Rate 72 12/16/19 16:00 Respiratory Rate 18 12/16/19 16:32 Blood Pressure 130/66 12/16/19 16:00 O2 Sat by Pulse Oximetry (%) 99 12/16/19 12:00 Constitutional: Yes: Well Nourished, No Distress, Calm Cardiovascular: Yes: Regular Rate and Rhythm Respiratory: Yes: Regular, Mechanically Ventilated, Rhonchi (diffuse) Gastrointestinal: Yes: Normal Bowel Sounds, Soft Genitourinary: Yes: [place]vall Present Edema: No Peripheral Pulses WNL: Yes Integumentary: Yes: Rash (Generalized healing boullous rash) Neurological: Yes: Other (sedated) Labs: CBC, BMP 12/16/19 05:30 12/16/19 05:30 INR, PTT INR 1.29 (0.83-1.09) H 12/15/19 11:01 Problem List - Problems (1) Acute respiratory failure Assessment/Plan: -Mech vent -Pulmonary consult -IV Cefazolin + meropenem -Enteral feeds -Bronchodilators Problems reviewed: Yes Code(s): J96.00 - ACUTE RESPIRATORY FAILURE, UNSP W HYPOXIA OR HYPERCAPNIA (2) Bullous pemphigoid Assessment/Plan: -On cellcept -Silvadene top Problems reviewed: Yes Code(s): L12.0 - BULLOUS PEMPHIGOID (3) Acute on chronic renal insufficiency Assessment/Plan: -Nephrology on board -monitor daily labs Problems reviewed: Yes Code(s): N28.9 - DISORDER OF KIDNEY AND URETER, UNSPECIFIED; N18.9 - CHRONIC KIDNEY DISEASE, UNSPECIFIED (4) Pneumonia Assessment/Plan: -Likely aspiration -CXR reviewed -Repeat COVID 19 PCR negative -IV abx -ID consult -Lactic acidosis noted Problems reviewed: Yes Code(s): J18.9 - PNEUMONIA, UNSPECIFIED ORGANISM (5) Afib Assessment/Plan: -Chronic, rate controlled -D/C heparin -Eliquis 2.5 mg po bid for age>80, Cr>1.5 -Transfuse if needed Problems reviewed: Yes Code(s): I48.91 - UNSPECIFIED ATRIAL FIBRILLATION (6) Anemia Assessment/Plan: -Chronic -workup last admission was negative -hematology consult -Transfuse only if hg<7.0 to avoid fluid overload. Problems reviewed: Yes Code(s): D64.9 - ANEMIA, UNSPECIFIED (7) Bacteremia Assessment/Plan: -Repeat BC preliminary negative -IV abx -ID on board Problems reviewed: Yes Code(s): R78.81 - BACTEREMIA Assessment/Plan See problem list Ongoing discussion with family regarding comfort care. GI PPX Pt tolerating enteral feeds
[2019-12-16] MEDS: ARTIFICIAL TEARS (POLYVINYL ALCOHOL) OPTH DROPS OU PRN (21:04)
[2019-12-16] MEDS: ROSUVASTATIN CA 10 MG TABLET (FP) PO SCH (21:05)
[2019-12-17] MEDS: MEROPENEM 500 MG in DEXTROSE 5%-WATER 100 ML IVPB SCH ×2 (01:02→12:08)
[2019-12-17] MEDS ORDERED: fentaNYL CITRATE 250 MCG/5 ML VIAL ONE (01:25)
[2019-12-17] MEDS: FENTANYL NS IVPB 500 MCG/100 ML BAG IVPB SCH (01:41)
[2019-12-17] MEDS: INSULIN SLIDING SCALE (NOVOLOG) 1 VIAL SQ SCH ×4 (06:02→21:35)
[2019-12-17] MEDS: MYCOPHENOLATE MOFETIL 200 MG/ML SUSPENSION PO SCH ×2 (09:34→21:00)
[2019-12-17] MEDS: SEVELAMER CARBONATE 0.8 GM POWDER PACKET PO SCH ×3 (09:34→17:00)
[2019-12-17] MEDS: ARTIFICIAL TEARS (POLYVINYL ALCOHOL) OPTH DROPS OU PRN ×2 (09:35→10:22)
[2019-12-17] MEDS: PANTOPRAZOLE SODIUM 40 MG VIAL IVPUSH SCH (09:36)
[2019-12-17] MEDS: levETIRAcetam 500 MG/5 ML INJECTION VIAL IVPB SCH ×2 (09:36→21:00)
[2019-12-17] MEDS: CEFAZOLIN 500 MG in DEXTROSE 5%-WATER - 50 ML IVPB SCH ×2 (09:36→21:00)
[2019-12-17] MEDS: APIXABAN 2.5 MG TABLET PO SCH ×2 (09:42→21:00)
--- NOTE | 2019-12-17 09:58 | PN ---
Progress Note, Physician History of Present Illness: s/p Cardiopulmonary Arrest Acute Hypoxic and Hypercapneic Respiratory Failure Likely Aspiration Pneumonia Septic Shock Acute on Chronic Renal Failure Lactic Acidosis Bullous Pemphigoid CAD LV Diastolic Dysfunction Atrial Fibrillation Seizure Disorder h/o CVA Hypothyroidism Anemia Thrombocytopenia History of Present Illness: Remains intubated in ICU No events overnight On eliquis for Pafib - Current Medication List Current Medications: Active Medications Albuterol/Ipratropium (Duoneb -) 1 amp NEB Q4H PRN PRN Reason: SHORT OF BREATH/WHEEZING Last Admin: 12/08/19 02:38 Dose: 1 amp Documented by: Apixaban (Eliquis -) 2.5 mg PO BID [facility] Last Admin: 12/17/19 09:42 Dose: 2.5 mg Documented by: Artificial Tears (Artificial Tears Ointment -) 1 applic OU BID [facility] Last Admin: 12/16/19 21:04 Dose: 1 drop Documented by: Artificial Tears (Artificial Tears) 1 drop OU BID PRN PRN Reason: DRY EYES Last Admin: 12/17/19 09:35 Dose: 1 drop Documented by: Cefazolin Sodium 500 mg/ (Dextrose) 50 mls @ 100 mls/hr IVPB BID [facility] Last Admin: 12/17/19 09:36 Dose: 100 mls/hr Documented by: Meropenem 500 mg/ Dextrose 100 mls @ 200 mls/hr IVPB Q12H [facility] Last Admin: 12/17/19 01:02 Dose: 200 mls/hr Documented by: Fentanyl (Sublimaze Ivpb) 500 mcg in 100 mls @ 21.614 mls/hr IVPB TITR [facility]; Protocol Last Titration: 12/17/19 02:00 Dose: 0.23 mcg/kg/hr, 5 mls/hr Documented by: Insulin Aspart (Novolog Vial Sliding Scale -) 1 vial SQ ACHS [facility]; Protocol Last Admin: 12/17/19 06:02 Dose: Not Given Documented by: Levetiracetam (Keppra Injection -) 500 mg IVPB BID [facility] Last Admin: 12/17/19 09:36 Dose: 500 mg Documented by: Levothyroxine Sodium (Synthroid Injection -) 20 mcg IVPUSH DAILY [facility] Last Admin: 12/16/19 09:28 Dose: 20 mcg Documented by: Mycophenolate Mofetil (Cellcept Suspension -) 500 mg PO BID [facility] Last Admin: 12/17/19 09:34 Dose: 500 mg Documented by: Pantoprazole Sodium (Protonix Iv) 40 mg IVPUSH DAILY [facility] Last Admin: 12/17/19 09:36 Dose: 40 mg Documented by: Rosuvastatin Calcium (Crestor -) 10 mg PO HS [facility] Last Admin: 12/16/19 21:05 Dose: 10 mg Documented by: Sevelamer Carbonate (Renvela Powder Packet -) 0.8 gm PO TIDCM [facility] Last Admin: 12/17/19 09:34 Dose: 0.8 gm Documented by: Silver Sulfadiazine (Silvadene -) 1 applic TP BID [facility] Last Admin: 12/16/19 21:03 Dose: 1 applic Documented by: Sodium Zirconium Cyclosilicate (Lokelma) 10 gm PO DAILY [facility] Last Admin: 12/16/19 09:30 Dose: 10 gm Documented by: Tamsulosin HCl (Flomax -) 0.4 mg PO 0830 [facility] Last Admin: 12/11/19 09:09 Dose: 0.4 mg Documented by: - Objective Vital Signs: Vital Signs Temperature 97.6 F 12/17/19 08:33 Pulse Rate 70 12/17/19 09:00 Respiratory Rate 18 12/17/19 08:51 Blood Pressure 140/77 12/17/19 08:33 O2 Sat by Pulse Oximetry (%) 97 12/17/19 09:12 Cardiovascular: Yes: S1, S2 Respiratory: Yes: Mechanically Ventilated Gastrointestinal: Yes: Normal Bowel Sounds, Soft Labs: CBC, BMP 12/16/19 05:30 12/16/19 05:30 INR, PTT INR 1.29 (0.83-1.09) H 12/15/19 11:01 Problem List - Problems (1) Bullous pemphigoid Code(s): L12.0 - BULLOUS PEMPHIGOID (2) Caregiver unable to cope Code(s): Z74.8 - OTHER PROBLEMS RELATED TO CARE PROVIDER DEPENDENCY (3) Afib Code(s): I48.91 - UNSPECIFIED ATRIAL FIBRILLATION (4) Anemia Code(s): D64.9 - ANEMIA, UNSPECIFIED Qualifiers: Iron deficiency anemia type: chronic blood loss (5) CHF (congestive heart failure) Code(s): I50.9 - HEART FAILURE, UNSPECIFIED (6) Diabetes mellitus Code(s): E11.9 - TYPE 2 DIABETES MELLITUS WITHOUT COMPLICATIONS (7) Hypothyroidism Code(s): E03.9 - HYPOTHYROIDISM, UNSPECIFIED (8) Altered mental state Code(s): R41.82 - ALTERED MENTAL STATUS, UNSPECIFIED Assessment/Plan - Problems (1) Acute respiratory failure Assessment/Plan: -Mech vent -Pulmonary consult -IV Cefazolin + meropenem -Enteral feeds -Bronchodilators Problems reviewed: Yes Code(s): J96.00 - ACUTE RESPIRATORY FAILURE, UNSP W HYPOXIA OR HYPERCAPNIA (2) Bullous pemphigoid Assessment/Plan: -On cellcept -Silvadene top Problems reviewed: Yes Code(s): L12.0 - BULLOUS PEMPHIGOID (3) Acute on chronic renal insufficiency Assessment/Plan: -Nephrology on board -monitor daily labs Problems reviewed: Yes Code(s): N28.9 - DISORDER OF KIDNEY AND URETER, UNSPECIFIED; N18.9 - CHRONIC KIDNEY DISEASE, UNSPECIFIED (4) Pneumonia Assessment/Plan: -Likely aspiration -CXR reviewed -Repeat COVID 19 PCR negative -IV abx -ID consult -Lactic acidosis noted Problems reviewed: Yes Code(s): J18.9 - PNEUMONIA, UNSPECIFIED ORGANISM (5) Afib Assessment/Plan: -Chronic, rate controlled -D/C heparin -Eliquis 2.5 mg po bid for age>80, Cr>1.5 -Transfuse if needed Problems reviewed: Yes Code(s): I48.91 - UNSPECIFIED ATRIAL FIBRILLATION (6) Anemia Assessment/Plan: -Chronic -workup last admission was negative -hematology consult -Transfuse only if hg<7.0 to avoid fluid overload. Problems reviewed: Yes Code(s): D64.9 - ANEMIA, UNSPECIFIED (7) Bacteremia Assessment/Plan: -Repeat BC preliminary negative -IV abx -ID on board Problems reviewed: Yes Code(s): R78.81 - BACTEREMIA Ongoing discussion with family regarding comfort care. GI PPX Pt tolerating enteral feeds
[2019-12-17] MEDS: SILVER SULFADIAZINE 1% TOP CREAM 50 GM JAR TP SCH ×2 (10:23→21:01)
[2019-12-17] MEDS: LEVOTHYROXINE SODIUM 100 MCG VIAL IVPUSH SCH (10:54)
[2019-12-17 11:06] LABS: BASO % 0.1 % (0-2.0); EOS % 0.7 % (0-4.5); HEMATOCRIT 23.6 % (35.4-49); HEMOGLOBIN 7.6 GM/dL (11.7-16.9); LYMPH % 12.9 % (8-40); MCHC 32.3 g/dl (32.0-35.9); MEAN CELL VOLUME 89.7 fl (80-96); MEAN PLT VOLUME 8.5 fl (7.5-11.1); MONO % 8.3 % (3.8-10.2); PLATELET COUNT 113 K/MM3 (134-434); RBC 2.63 M/mm3 (4.00-5.60); RDW 16.6 % (11.9-15.9); WHITE BLOOD COUNT 5.4 K/mm3 (4.0-10.0)
[2019-12-17 11:20] LABS: ALBUMIN 2.2 g/dl (3.4-5.0); BILIRUBIN,TOTAL 0.6 mg/dL (0.2-1); CALCIUM 8.2 mg/dL (8.5-10.1); CREATININE 3.9 mg/dL (0.55-1.3); MAGNESIUM 2.3 mg/dL (1.8-2.4); PHOSPHOROUS 5.2 mg/dL (2.5-4.9); POTASSIUM 4.3 mmol/L (3.5-5.1); TOT PROT 5.2 g/dl (6.4-8.2)
--- NOTE | 2019-12-17 11:51 | PN ---
Progress Note, Physician History of Present Illness: Pt seen and examined at bedside. He remains in the ICU. He remains intubated. - Current Medication List Current Medications: Active Medications Albuterol/Ipratropium (Duoneb -) 1 amp NEB Q4H PRN PRN Reason: SHORT OF BREATH/WHEEZING Last Admin: 12/08/19 02:38 Dose: 1 amp Documented by: Apixaban (Eliquis -) 2.5 mg PO BID [facility] Last Admin: 12/17/19 09:42 Dose: 2.5 mg Documented by: Artificial Tears (Artificial Tears Ointment -) 1 applic OU BID [facility] Last Admin: 12/16/19 21:04 Dose: 1 drop Documented by: Artificial Tears (Artificial Tears) 1 drop OU BID PRN PRN Reason: DRY EYES Last Admin: 12/17/19 10:22 Dose: 1 drop Documented by: Cefazolin Sodium 500 mg/ (Dextrose) 50 mls @ 100 mls/hr IVPB BID [facility] Last Admin: 12/17/19 09:36 Dose: 100 mls/hr Documented by: Meropenem 500 mg/ Dextrose 100 mls @ 200 mls/hr IVPB Q12H [facility] Last Admin: 12/17/19 01:02 Dose: 200 mls/hr Documented by: Fentanyl (Sublimaze Ivpb) 500 mcg in 100 mls @ 21.614 mls/hr IVPB TITR [facility]; Protocol Last Titration: 12/17/19 02:00 Dose: 0.23 mcg/kg/hr, 5 mls/hr Documented by: Insulin Aspart (Novolog Vial Sliding Scale -) 1 vial SQ ACHS [facility]; Protocol Last Admin: 12/17/19 11:05 Dose: Not Given Documented by: Levetiracetam (Keppra Injection -) 500 mg IVPB BID [facility] Last Admin: 12/17/19 09:36 Dose: 500 mg Documented by: Levothyroxine Sodium (Synthroid Injection -) 20 mcg IVPUSH DAILY [facility] Last Admin: 12/17/19 10:54 Dose: 20 mcg Documented by: Mycophenolate Mofetil (Cellcept Suspension -) 500 mg PO BID [facility] Last Admin: 12/17/19 09:34 Dose: 500 mg Documented by: Pantoprazole Sodium (Protonix Iv) 40 mg IVPUSH DAILY [facility] Last Admin: 12/17/19 09:36 Dose: 40 mg Documented by: Rosuvastatin Calcium (Crestor -) 10 mg PO HS [facility] Last Admin: 12/16/19 21:05 Dose: 10 mg Documented by: Sevelamer Carbonate (Renvela Powder Packet -) 0.8 gm PO TIDCM [facility] Last Admin: 12/17/19 09:34 Dose: 0.8 gm Documented by: Silver Sulfadiazine (Silvadene -) 1 applic TP BID [facility] Last Admin: 12/17/19 10:23 Dose: 1 applic Documented by: Sodium Zirconium Cyclosilicate (Lokelma) 10 gm PO DAILY [facility] Last Admin: 12/16/19 09:30 Dose: 10 gm Documented by: Tamsulosin HCl (Flomax -) 0.4 mg PO 829 [facility] Last Admin: 12/11/19 09:09 Dose: 0.4 mg Documented by: - Objective Vital Signs: Vital Signs Temperature 97.5 F L 12/17/19 10:00 Pulse Rate 68 12/17/19 10:00 Respiratory Rate 11 12/17/19 10:00 Blood Pressure 134/68 12/17/19 10:00 O2 Sat by Pulse Oximetry (%) 97 12/17/19 09:12 Constitutional: Yes: Calm Eyes: Yes: Conjunctiva Clear Cardiovascular: Yes: S1, S2 Respiratory: Yes: Mechanically Ventilated Gastrointestinal: Yes: Soft Genitourinary: Yes: [place] Present Edema: Yes Edema: LLE: Trace, RLE: Trace Integumentary: Yes: Other (bullous pemphigoid) Neurological: Yes: Lethargy Labs: CBC, BMP 12/17/19 10:20 12/17/19 10:20 INR, PTT INR 1.29 (0.83-1.09) H 12/15/19 11:01 Problem List - Problems (1) Acute respiratory failure Code(s): J96.00 - ACUTE RESPIRATORY FAILURE, UNSP W HYPOXIA OR HYPERCAPNIA (2) Bullous pemphigoid Code(s): L12.0 - BULLOUS PEMPHIGOID Assessment/Plan Current Medications Generic Name Dose Route Start Last Admin Trade Name Freq PRN Reason Stop Dose Admin Albuterol/Ipratropium 1 amp 12/07/19 13:25 12/08/19 02:38 Duoneb - NEB 1 amp Q4H PRN Administration SHORT OF BREATH/WHEEZING Apixaban 2.5 mg 12/10/19 22:00 12/17/19 09:42 Eliquis - PO 2.5 mg BID [facility]EL Administration Artificial Tears 1 applic 12/14/19 23:45 12/16/19 21:04 Artificial Tears Ointment - OU 1 drop BID [facility] Administration Artificial Tears 1 drop 12/15/19 07:31 12/17/19 10:22 Artificial Tears OU 1 drop BID PRN Administration DRY EYES Cefazolin Sodium 500 mg/ 50 mls @ 100 mls/hr 12/12/19 12:45 12/17/19 09:36 Dextrose IVPB 100 mls/hr BID [facility] Administration Meropenem 500 mg/ Dextrose 100 mls @ 200 mls/hr 12/12/19 12:45 12/17/19 01:02 IVPB 200 mls/hr Q12H [facility] Administration Fentanyl 500 mcg in 100 mls @ 21.614 mls/hr 12/17/19 01:15 12/17/19 02:00 Sublimaze Ivpb IVPB 0.23 mcg/kg/hr TITR [facility] 5 mls/hr Titration Protocol 1 MCG/KG/HR Insulin Aspart 1 vial 12/10/19 07:00 12/17/19 11:05 Novolog Vial Sliding Scale - SQ Not Given ACHS [facility] Protocol Levetiracetam 500 mg 12/09/19 10:00 12/17/19 09:36 Keppra Injection - IVPB 500 mg BID [facility] Administration Levothyroxine Sodium 20 mcg 12/09/19 10:00 12/17/19 10:54 Synthroid Injection - IVPUSH 20 mcg DAILY [facility] Administration Mycophenolate Mofetil 500 mg 12/10/19 22:00 12/17/19 09:34 Cellcept Suspension - PO 500 mg BID [facility] Administration Pantoprazole Sodium 40 mg 12/09/19 10:00 12/17/19 09:36 Protonix Iv IVPUSH 40 mg DAILY [facility] Administration Rosuvastatin Calcium 10 mg 12/07/19 22:00 12/16/19 21:05 Crestor - PO 10 mg HS [facility] Administration Sevelamer Carbonate 0.8 gm 12/16/19 17:30 12/17/19 09:34 Renvela Powder Packet - PO 0.8 gm TIDCM [facility] Administration Silver Sulfadiazine 1 applic 12/15/19 12:45 12/17/19 10:23 Silvadene - TP 1 applic BID [facility] Administration Sodium Zirconium Cyclosilicate 10 gm 12/13/19 15:30 12/16/19 09:30 Lokelma PO 10 gm DAILY [facility] Administration Tamsulosin HCl 0.4 mg 12/08/19 08:30 12/11/19 09:09 Flomax - PO 0.4 mg 0830 [facility] Administration Impression 1. CKD 2. CHF 3. BPH 4. a. fib 5. CAD 6. epilepsy 7. proteinuria 8. anemia 9. foot ulcer 10. abd wall cellulitis 11. bullous pemphigoid 12. LETITIA 13. hyperkalemia 14. cardiac arrest 15. resp failure on vent 16. r/o aspiration Plan - renal function is improving - steroid taper - vent support - monitor mental status - can hold lokelma - evaluate mental status off sedation - maintain map 65 - no indication for HD at the moment - monitor urine output - letitia on ckd likely atn post cardiac arrest
[2019-12-17] MEDS ORDERED: DEXTROSE 5%-WATER 100 ML IVPB ONE ×2 (12:03→23:16)
[2019-12-17] MEDS ORDERED: MEROPENEM 500 MG VIAL (RESTRICTED TO ID) IVPB ONE ×2 (12:03→23:16)
[2019-12-17 12:06] LABS: BLOOD UREA NITROGEN 156.3 mg/dL (7-18)
[2019-12-17] MEDS: SODIUM ZIRCONIUM CYCLOSILICATE (LOKELMA) 5 GM PACKET PO SCH (12:08)
--- NOTE | 2019-12-17 12:11 | PN ---
Progress Note, Physician History of Present Illness: INTUBATED IN ICU AFEBRILE WBC WNL BC MSSA (12/06) BC (11/17) NO GROWTH - Current Medication List Current Medications: Active Medications Albuterol/Ipratropium (Duoneb -) 1 amp NEB Q4H PRN PRN Reason: SHORT OF BREATH/WHEEZING Last Admin: 12/08/19 02:38 Dose: 1 amp Documented by: Apixaban (Eliquis -) 2.5 mg PO BID [facility] Last Admin: 12/17/19 09:42 Dose: 2.5 mg Documented by: Artificial Tears (Artificial Tears Ointment -) 1 applic OU BID [facility] Last Admin: 12/16/19 21:04 Dose: 1 drop Documented by: Artificial Tears (Artificial Tears) 1 drop OU BID PRN PRN Reason: DRY EYES Last Admin: 12/17/19 10:22 Dose: 1 drop Documented by: Cefazolin Sodium 500 mg/ (Dextrose) 50 mls @ 100 mls/hr IVPB BID [facility] Last Admin: 12/17/19 09:36 Dose: 100 mls/hr Documented by: Meropenem 500 mg/ Dextrose 100 mls @ 200 mls/hr IVPB Q12H [facility] Last Admin: 12/17/19 01:02 Dose: 200 mls/hr Documented by: Fentanyl (Sublimaze Ivpb) 500 mcg in 100 mls @ 21.614 mls/hr IVPB TITR [facility]; Protocol Last Titration: 12/17/19 02:00 Dose: 0.23 mcg/kg/hr, 5 mls/hr Documented by: Insulin Aspart (Novolog Vial Sliding Scale -) 1 vial SQ ACHS [facility]; Protocol Last Admin: 12/17/19 11:05 Dose: Not Given Documented by: Levetiracetam (Keppra Injection -) 500 mg IVPB BID [facility] Last Admin: 12/17/19 09:36 Dose: 500 mg Documented by: Levothyroxine Sodium (Synthroid Injection -) 20 mcg IVPUSH DAILY [facility] Last Admin: 12/17/19 10:54 Dose: 20 mcg Documented by: Mycophenolate Mofetil (Cellcept Suspension -) 500 mg PO BID [facility] Last Admin: 12/17/19 09:34 Dose: 500 mg Documented by: Pantoprazole Sodium (Protonix Iv) 40 mg IVPUSH DAILY [facility] Last Admin: 12/17/19 09:36 Dose: 40 mg Documented by: Rosuvastatin Calcium (Crestor -) 10 mg PO HS [facility] Last Admin: 12/16/19 21:05 Dose: 10 mg Documented by: Sevelamer Carbonate (Renvela Powder Packet -) 0.8 gm PO TIDCM [facility] Last Admin: 12/17/19 09:34 Dose: 0.8 gm Documented by: Silver Sulfadiazine (Silvadene -) 1 applic TP BID [facility] Last Admin: 12/17/19 10:23 Dose: 1 applic Documented by: Tamsulosin HCl (Flomax -) 0.4 mg PO 0830 [facility] Last Admin: 12/11/19 09:09 Dose: 0.4 mg Documented by: - Objective Vital Signs: Vital Signs Temperature 97.5 F L 12/17/19 10:00 Pulse Rate 68 12/17/19 10:00 Respiratory Rate 11 12/17/19 10:00 Blood Pressure 134/68 12/17/19 10:00 O2 Sat by Pulse Oximetry (%) 97 12/17/19 09:12 Constitutional: Yes: No Distress Eyes: Yes: Conjunctiva Clear Cardiovascular: Yes: Regular Rate and Rhythm, S1, S2 Respiratory: Yes: CTA Bilaterally Gastrointestinal: Yes: Normal Bowel Sounds, Soft. No: Tenderness Edema: Yes Integumentary: Yes: Other (EXTENSIVE ULCERATIVE LESIONS THROUGHOUT) Labs: CBC, BMP 12/17/19 10:20 12/17/19 10:20 INR, PTT INR 1.29 (0.83-1.09) H 12/15/19 11:01 Assessment/Plan + BLOOD C/S MSSA PROBABLE SKIN SOURCE ACUTE RESP FAILURE PNEUMOMIA + SPUTUM C/S MEROPENEM AZOTEMIA PLANTAR ULCER HEALED BULOUS PEMPHIGOID CEFAZOLIN/ MEROPENEM ADJUSTED FOR RENAL FAILURE REPEAT BC NO GROWTH ECHO NO VEGETATIONS VENTILATORY/ HEMODYNAMIC SUPPORT PROGNOSIS POOR
[2019-12-17] MEDS: MINERAL OIL/PETROLATUM,WHITE 3.5 GM TUBE OU SCH (12:47)
--- NOTE | 2019-12-17 15:50 | PN ---
Physical Exam: SUBJECTIVE: Patient seen and examined. Intubated and sedated. No acute events overnight. Son was at bedside in the afternoon. Spoke to him about goals of care. OBJECTIVE: Vital Signs Period Temp Pulse Resp BP Sys/Hair Pulse Ox Last 24 Hr 97.5 F-98.3 F 64-84 11-22 130-152/61-85 96-100 GENERAL: The patient is sedated and intubated. HEAD: NCAT EYES: PERRL LUNGS: Breath sounds equal, clear to auscultation anteriorly HEART: Regular rate and rhythm, S1, S2 without murmur ABDOMEN: Soft, nondistended EXTREMITIES: warm, +1 pitting edema in upper and lower extremities, multiple lesions on extremities. Bandages on arms from bullous pemphigoid. Laboratory Last Values WBC 5.4 K/mm3 (4.0-10.0) 12/17/19 10:20 RBC 2.63 M/mm3 (4.00-5.60) L 12/17/19 10:20 Hgb 7.6 GM/dL (11.7-16.9) L 12/17/19 10:20 Hct 23.6 % (35.4-49) L 12/17/19 10:20 MCV 89.7 fl (80-96) 12/17/19 10:20 MCH 29.0 pg (25.7-33.7) 12/17/19 10:20 MCHC 32.3 g/dl (32.0-35.9) 12/17/19 10:20 RDW 16.6 % (11.9-15.9) H 12/17/19 10:20 Plt Count 113 K/MM3 (134-434) L 12/17/19 10:20 MPV 8.5 fl (7.5-11.1) 12/17/19 10:20 Absolute Neuts (auto) 4.2 K/mm3 (1.5-8.0) 12/17/19 10:20 Neutrophils % 78.0 % (42.8-82.8) 12/17/19 10:20 Neutrophils % (Manual) 95.0 % (42.8-82.8) H 12/10/19 06:00 Band Neutrophils % 4.0 % 12/10/19 06:00 Lymphocytes % 12.9 % (8-40) D 12/17/19 10:20 Lymphocytes % (Manual) 1.0 % (8-40) L D 12/10/19 06:00 Monocytes % 8.3 % (3.8-10.2) 12/17/19 10:20 Monocytes % (Manual) 0 % (3.8-10.2) L 12/10/19 06:00 Eosinophils % 0.7 % (0-4.5) D 12/17/19 10:20 Eosinophils % (Manual) 0.0 % (0-4.5) 12/10/19 06:00 Basophils % 0.1 % (0-2.0) 12/17/19 10:20 Basophils % (Manual) 0.0 % (0-2.0) 12/10/19 06:00 Myelocytes % (Man) 0 % (0-2) 12/10/19 06:00 Promyelocytes % (Man) 0 % (0-2) 12/10/19 06:00 Blast Cells % (Manual) 0 % (0-0) 12/10/19 06:00 Nucleated RBC % 0 % (0-0) 12/17/19 10:20 Metamyelocytes 0 % (0-2) 12/10/19 06:00 Hypochromia 1+ 12/10/19 06:00 Platelet Estimate Decreased 12/10/19 06:00 Platelet Comment Present 12/07/19 19:10 Polychromasia 0 12/10/19 06:00 Poikilocytosis 1+ 12/10/19 06:00 Anisocytosis 1+ 12/10/19 06:00 Microcytosis 1+ 12/10/19 06:00 Macrocytosis 1+ 12/10/19 06:00 Tear Drop Cells 1+ 12/07/19 19:10 Ovalocytes 1+ 12/10/19 06:00 Round Top Cells 1+ 12/07/19 19:10 Rouleaux 1+ 12/09/19 08:15 Schistocytes 1+ 12/10/19 06:00 PT with INR 15.30 SEC (9.7-13.0) H 12/15/19 11:01 INR 1.29 (0.83-1.09) H 12/15/19 11:01 Anticoagulation Therapy No Result Required. 12/16/19 05:30 Puncture Site Right radial 12/16/19 05:30 Patient Temperature No Result Required. 12/16/19 05:30 ABG pH 7.429 (7.350-7.450) 12/16/19 05:30 ABG pCO2 33.70 mmHg (35-45) L 12/16/19 05:30 ABG pO2 125.7 mmHg (80-100) H 12/16/19 05:30 ABG HCO3 21.8 mmol/L (22-27) L 12/16/19 05:30 ABG O2 Sat (Measured) 98.6 mmHg (95-98) H 12/16/19 05:30 ABG O2 Content No Result Required. 12/16/19 05:30 ABG Base Excess -2.1 mmol/L (-2-2) L 12/16/19 05:30 Ishan Test Positive 12/16/19 05:30 Patient On Oxygen Yes 12/16/19 05:30 O2 Delivery Device Vent 12/16/19 05:30 Oxygen Flow Rate 40% 12/16/19 05:30 Vent Mode A/c 12/16/19 05:30 Vent Rate 18 12/16/19 05:30 Mechanical Rate Yes 12/16/19 05:30 PEEP 5.0 cmH2O 12/16/19 05:30 Pressure Support Vent 450 12/16/19 05:30 Sodium 144 mmol/L (136-145) 12/17/19 10:20 Potassium 4.3 mmol/L (3.5-5.1) 12/17/19 10:20 Chloride 107 mmol/L (98-107) 12/17/19 10:20 Carbon Dioxide 27 mmol/L (21-32) 12/17/19 10:20 Anion Gap 10 MMOL/L (8-16) 12/17/19 10:20 BUN 156.3 mg/dL (7-18) H* 12/17/19 10:20 Creatinine 3.9 mg/dL (0.55-1.3) H 12/17/19 10:20 Est GFR (CKD-EPI)AfAm 15.71 12/17/19 10:20 Est GFR (CKD-EPI)NonAf 13.56 12/17/19 10:20 POC Glucometer 149 UNITS (80-120) 12/17/19 11:04 Random Glucose 151 mg/dL (74-106) H 12/17/19 10:20 Lactic Acid 3.6 mmol/L (0.4-2.0) H* 12/09/19 08:15 Calcium 8.2 mg/dL (8.5-10.1) L 12/17/19 10:20 Phosphorus 5.2 mg/dL (2.5-4.9) H 12/17/19 10:20 Magnesium 2.3 mg/dL (1.8-2.4) 12/17/19 10:20 Iron 180 ug/dL (50-175) H 12/04/19 06:55 TIBC 197 ug/dL (250-450) L 12/04/19 06:55 Iron Saturation 91 % (17.5-39) H 12/04/19 06:55 Unsaturated IBC 17 ug/dL (200-275) L 12/04/19 06:55 Ferritin 736.1 ng/ml (8-388) H 12/04/19 06:55 Total Bilirubin 0.6 mg/dL (0.2-1) 12/17/19 10:20 AST 18 U/L (15-37) 12/17/19 10:20 ALT 9 U/L (13-61) L 12/17/19 10:20 Alkaline Phosphatase 61 U/L (45-117) 12/17/19 10:20 Creatine Kinase 38 U/L (26-308) 12/07/19 14:00 Troponin I < 0.02 ng/ml (0.00-0.05) 12/09/19 08:15 Total Protein 5.2 g/dl (6.4-8.2) L 12/17/19 10:20 Albumin 2.2 g/dl (3.4-5.0) L 12/17/19 10:20 Prolactin 287.0 ng/ml (4.0-15.2) H 12/09/19 08:15 Vancomycin Pre-Dose 14.8 ug/ml (5-10) H 12/10/19 10:33 COVID-19 (SHENG) Not detected (Not Detected) 12/08/19 22:30 Blood Type B POSITIVE 12/11/19 11:00 Antibody Screen Negative 12/11/19 11:00 Crossmatch See Detail 12/11/19 11:00 Intake & Output 12/14/19 12/15/19 12/16/19 12/17/19 23:59 23:59 23:59 23:59 Intake Total 949 2504 2033 1310 Output Total 4102 0741 9603 1700 Balance -0883 544 -2567 -390 Weight 110.903 kg 107.91 kg 108.068 kg 105.46 kg Active Medications Albuterol/Ipratropium (Duoneb -) 1 amp NEB Q4H PRN PRN Reason: SHORT OF BREATH/WHEEZING Last Admin: 12/08/19 02:38 Dose: 1 amp Documented by: Apixaban (Eliquis -) 2.5 mg PO BID [facility] Last Admin: 12/17/19 09:42 Dose: 2.5 mg Documented by: Artificial Tears (Artificial Tears) 1 drop OU BID PRN PRN Reason: DRY EYES Last Admin: 12/17/19 10:22 Dose: 1 drop Documented by: Cefazolin Sodium 500 mg/ (Dextrose) 50 mls @ 100 mls/hr IVPB BID [facility] Last Admin: 12/17/19 09:36 Dose: 100 mls/hr Documented by: Meropenem 500 mg/ Dextrose 100 mls @ 200 mls/hr IVPB Q12H [facility] Last Admin: 12/17/19 12:08 Dose: 200 mls/hr Documented by: Fentanyl (Sublimaze Ivpb) 500 mcg in 100 mls @ 21.614 mls/hr IVPB TITR [facility]; Protocol Last Titration: 12/17/19 02:00 Dose: 0.23 mcg/kg/hr, 5 mls/hr Documented by: Insulin Aspart (Novolog Vial Sliding Scale -) 1 vial SQ ACHS [facility]; Protocol Last Admin: 12/17/19 11:05 Dose: Not Given Documented by: Levetiracetam (Keppra Injection -) 500 mg IVPB BID [facility] Last Admin: 12/17/19 09:36 Dose: 500 mg Documented by: Levothyroxine Sodium (Synthroid Injection -) 20 mcg IVPUSH DAILY [facility] Last Admin: 12/17/19 10:54 Dose: 20 mcg Documented by: Mycophenolate Mofetil (Cellcept Suspension -) 500 mg PO BID [facility] Last Admin: 12/17/19 09:34 Dose: 500 mg Documented by: Pantoprazole Sodium (Protonix Iv) 40 mg IVPUSH DAILY [facility] Last Admin: 12/17/19 09:36 Dose: 40 mg Documented by: Rosuvastatin Calcium (Crestor -) 10 mg PO HS [facility] Last Admin: 12/16/19 21:05 Dose: 10 mg Documented by: Sevelamer Carbonate (Renvela Powder Packet -) 0.8 gm PO TIDCM [facility] Last Admin: 12/17/19 12:10 Dose: 0.8 gm Documented by: Silver Sulfadiazine (Silvadene -) 1 applic TP BID [facility] Last Admin: 12/17/19 10:23 Dose: 1 applic Documented by: Tamsulosin HCl (Flomax -) 0.4 mg PO 0830 [facility] Last Admin: 12/11/19 09:09 Dose: 0.4 mg Documented by: ASSESSMENT/PLAN: 79 y/o male PMH dCHF, afib, CAD s/p PCI, HTN, seziure d/o, CVA with RIGHT sided residual deficit, CKD, hypothyroidism, and bullous pemphigoid admitted for ARDS. 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 He is now s/p cardiopulmonary arrest (on 12/09/2019) demonstrating PEA x2 (ROSC >1 min for both) in the ICU 2/2 acute hypoxic respiratory failure. # Neuro: seizure d/o, h/o CVA Right side residual deficit Intubated and sedated On Fentanyl drip 50 mcg/hr. # CVS: afid, dCHF, CAD, HTN, anemia Transfuse hb < 7 For periods of bradycardia, ensure electrolytes are repleted. If concurrent with hypotension, consider dopamine. # Pulm Covid NEGATIVE 12/02 and 12/07 ARDS, aspiration PNA 18/450/40%/5 Plat 20 CXR 12/15 positive for b/l pleural effusions slightly improved. # ID Cefazolin and meropenem day 6 (12/11) Sputum pseudomonas. Blood and urine cxs neg. # Renal: LETITIA on CKD Cr: 4.5-->3.9 [place] 0 Nephro consulted. Dialysis not recommended at this time. # TLD RIGHT IJ 12/08 ETT 12/07 [place] # FEN Hold Cont. to monitor and replete as needed. Nephro TF diet 45cc/hr # PPX Protonix 40 mg IV QD Heparin # Disposition Continue to monitor in ICU. Called for palliative care consult. Son was at bedside. Will continue to speak with family about goals of care. Visit type - Emergency Visit Emergency Visit: Yes ED Registration Date: 12/03/19 Care time: The patient presented to the Emergency Department on the above date and was hospitalized for further evaluation of their emergent condition. - New Patient This patient is new to me today: Yes Date on this admission: 12/17/19 - Critical Care Critical Care patient: Yes Total Critical Care Time (in minutes): 40 Critical Care Statement: The care of this patient involved high complexity decision making to prevent further life threatening deterioration of the patient's condition and/or to evaluate & treat vital organ system(s) failure or risk of failure. ATTENDING PHYSICIAN STATEMENT I saw and evaluated the patient. I reviewed the resident's note and discussed the case with the resident. I agree with the resident's findings and plan as documented. SUBJECTIVE: OBJECTIVE: ASSESSMENT AND PLAN:
--- NOTE | 2019-12-17 16:33 | PN ---
Teaching Attending Note Name of Resident: Otilia Felipe ATTENDING PHYSICIAN STATEMENT I saw and evaluated the patient. I reviewed the resident's note and discussed the case with the resident. I agree with the resident's findings and plan as documented. SUBJECTIVE: Patient seen and examined in the ICU. Remains intubated, sedated. Remains off pressors for hemodynamic support. OBJECTIVE: Intake & Output 12/14/19 12/15/19 12/16/19 12/17/19 23:59 23:59 23:59 23:59 Intake Total 949 2504 2033 1310 Output Total 4100 1960 4600 1700 Balance -3151 544 -2567 -390 Weight 244 lb 8 oz 237 lb 14.4 oz 238 lb 4 oz 232 lb 8 oz Last Vital Signs Temp Pulse Resp BP Pulse Ox 97.6 F 62 18 137/67 97 12/17/19 13:40 12/17/19 15:00 12/17/19 15:00 12/17/19 15:00 12/17/19 09:12 Active Medications Albuterol/Ipratropium (Duoneb -) 1 amp NEB Q4H PRN PRN Reason: SHORT OF BREATH/WHEEZING Last Admin: 12/08/19 02:38 Dose: 1 amp Documented by: Apixaban (Eliquis -) 2.5 mg PO BID [facility] Last Admin: 12/17/19 09:42 Dose: 2.5 mg Documented by: Artificial Tears (Artificial Tears) 1 drop OU BID PRN PRN Reason: DRY EYES Last Admin: 12/17/19 10:22 Dose: 1 drop Documented by: Cefazolin Sodium 500 mg/ (Dextrose) 50 mls @ 100 mls/hr IVPB BID [facility] Last Admin: 12/17/19 09:36 Dose: 100 mls/hr Documented by: Meropenem 500 mg/ Dextrose 100 mls @ 200 mls/hr IVPB Q12H [facility] Last Admin: 12/17/19 12:08 Dose: 200 mls/hr Documented by: Fentanyl (Sublimaze Ivpb) 500 mcg in 100 mls @ 21.614 mls/hr IVPB TITR [facility]; Protocol Last Titration: 12/17/19 02:00 Dose: 0.23 mcg/kg/hr, 5 mls/hr Documented by: Insulin Aspart (Novolog Vial Sliding Scale -) 1 vial SQ ACHS [facility]; Protocol Last Admin: 12/17/19 16:14 Dose: Not Given Documented by: Levetiracetam (Keppra Injection -) 500 mg IVPB BID [facility] Last Admin: 12/17/19 09:36 Dose: 500 mg Documented by: Levothyroxine Sodium (Synthroid Injection -) 20 mcg IVPUSH DAILY [facility] Last Admin: 12/17/19 10:54 Dose: 20 mcg Documented by: Mycophenolate Mofetil (Cellcept Suspension -) 500 mg PO BID [facility] Last Admin: 12/17/19 09:34 Dose: 500 mg Documented by: Pantoprazole Sodium (Protonix Iv) 40 mg IVPUSH DAILY [facility] Last Admin: 12/17/19 09:36 Dose: 40 mg Documented by: Rosuvastatin Calcium (Crestor -) 10 mg PO HS [facility] Last Admin: 12/16/19 21:05 Dose: 10 mg Documented by: Sevelamer Carbonate (Renvela Powder Packet -) 0.8 gm PO TIDCM [facility] Last Admin: 12/17/19 12:10 Dose: 0.8 gm Documented by: Silver Sulfadiazine (Silvadene -) 1 applic TP BID [facility] Last Admin: 12/17/19 10:23 Dose: 1 applic Documented by: Tamsulosin HCl (Flomax -) 0.4 mg PO 0830 [facility] Last Admin: 12/11/19 09:09 Dose: 0.4 mg Documented by: Gen: intubated, sedated Heart: RRR Lung: decreased breath sounds at the bases Abd: softly distended, nontender Ext: no edema, multiple ulcers Laboratory Results - last 24 hr 12/16/19 12/17/19 12/17/19 20:51 05:59 10:20 WBC 5.4 RBC 2.63 L Hgb 7.6 L Hct 23.6 L MCV 89.7 MCH 29.0 MCHC 32.3 RDW 16.6 H Plt Count 113 L MPV 8.5 Absolute Neuts (auto) 4.2 Neutrophils % 78.0 Lymphocytes % 12.9 D Monocytes % 8.3 Eosinophils % 0.7 D Basophils % 0.1 Nucleated RBC % 0 Sodium Potassium Chloride Carbon Dioxide Anion Gap BUN Creatinine Est GFR (CKD-EPI)AfAm Est GFR (CKD-EPI)NonAf POC Glucometer 237 132 Random Glucose Calcium Phosphorus Magnesium Total Bilirubin AST ALT Alkaline Phosphatase Total Protein Albumin 12/17/19 12/17/19 12/17/19 10:20 11:04 16:13 WBC RBC Hgb Hct MCV MCH MCHC RDW Plt Count MPV Absolute Neuts (auto) Neutrophils % Lymphocytes % Monocytes % Eosinophils % Basophils % Nucleated RBC % Sodium 144 Potassium 4.3 Chloride 107 Carbon Dioxide 27 Anion Gap 10 BUN 156.3 H* Creatinine 3.9 H Est GFR (CKD-EPI)AfAm 15.71 Est GFR (CKD-EPI)NonAf 13.56 POC Glucometer 149 139 Random Glucose 151 H Calcium 8.2 L Phosphorus 5.2 H Magnesium 2.3 Total Bilirubin 0.6 AST 18 ALT 9 L Alkaline Phosphatase 61 Total Protein 5.2 L Albumin 2.2 L Problem List - Problems (1) Bullous pemphigoid Code(s): L12.0 - BULLOUS PEMPHIGOID (2) Generalized weakness Code(s): R53.1 - WEAKNESS (3) Unable to ambulate Code(s): R26.2 - DIFFICULTY IN WALKING, NOT ELSEWHERE CLASSIFIED (4) Blisters of multiple sites Code(s): R23.8 - OTHER SKIN CHANGES (5) Abnormal liver enzymes Code(s): R74.8 - ABNORMAL LEVELS OF OTHER SERUM ENZYMES (6) Wound of foot Code(s): S91.309A - UNSPECIFIED OPEN WOUND, UNSPECIFIED FOOT, INITIAL ENCOUNTER (7) Afib Code(s): I48.91 - UNSPECIFIED ATRIAL FIBRILLATION (8) Anemia Code(s): D64.9 - ANEMIA, UNSPECIFIED Qualifiers: Qualified Code(s): D50.0 - Iron deficiency anemia secondary to blood loss (chronic) (9) BPH (benign prostatic hyperplasia) Code(s): N40.0 - BENIGN PROSTATIC HYPERPLASIA WITHOUT LOWER URINRY TRACT SYMP (10) CAD (coronary artery disease) Code(s): I25.10 - ATHSCL HEART DISEASE OF [place] CORONARY ARTERY W/O ANG PCTRS (11) CHF (congestive heart failure) Code(s): I50.9 - HEART FAILURE, UNSPECIFIED (12) CKD (chronic kidney disease) Code(s): N18.9 - CHRONIC KIDNEY DISEASE, UNSPECIFIED (13) Diabetes mellitus Code(s): E11.9 - TYPE 2 DIABETES MELLITUS WITHOUT COMPLICATIONS (14) Diastolic CHF Code(s): I50.30 - UNSPECIFIED DIASTOLIC (CONGESTIVE) HEART FAILURE (15) Gastritis Code(s): K29.70 - GASTRITIS, UNSPECIFIED, WITHOUT BLEEDING (16) HTN (hypertension) Code(s): I10 - ESSENTIAL (PRIMARY) HYPERTENSION (17) History of colon cancer Code(s): Z85.038 - PERSONAL HISTORY OF MALIGNANT NEOPLASM OF LARGE INTESTINE (18) History of duodenal ulcer Code(s): Z87.19 - PERSONAL HISTORY OF OTHER DISEASES OF THE DIGESTIVE SYSTEM (19) Hyperlipidemia Code(s): E78.5 - HYPERLIPIDEMIA, UNSPECIFIED (20) Hypothyroid Code(s): E03.9 - HYPOTHYROIDISM, UNSPECIFIED (21) Paroxysmal atrial fibrillation Code(s): I48.0 - PAROXYSMAL ATRIAL FIBRILLATION (22) Peripheral arterial disease Code(s): I73.9 - PERIPHERAL VASCULAR DISEASE, UNSPECIFIED (23) Peripheral vascular disease Code(s): I73.9 - PERIPHERAL VASCULAR DISEASE, UNSPECIFIED (24) Pulmonary hypertension Code(s): I27.2 - OTHER SECONDARY PULMONARY HYPERTENSION * DO NOT USE * (25) Seizure Code(s): R56.9 - UNSPECIFIED CONVULSIONS (26) Seizure disorder Code(s): G40.909 - EPILEPSY, UNSP, NOT INTRACTABLE, WITHOUT STATUS EPILEPTICUS ASSESSMENT AND PLAN: s/p Cardiopulmonary Arrest Acute Hypoxic and Hypercapneic Respiratory Failure Likely Aspiration Pneumonia Septic Shock Acute on Chronic Renal Failure Lactic Acidosis Bullous Pemphigoid CAD LV Diastolic Dysfunction Atrial Fibrillation Seizure Disorder h/o CVA Hypothyroidism Anemia Thrombocytopenia (?) Uremia - continue antibiotics - Normal transfusion thresholds - monitor urine output, creatinine - rate control - Sedation vacation to assess mental status - continue volume assist control - enteral feeds - DVT/GI prophylaxis - ICU monitoring Dr Contreras Critical care time spent in reviewing chart, evaluating patient and formulating plan 35 min Problem List - Problems (1) Bullous pemphigoid Code(s): L12.0 - BULLOUS PEMPHIGOID (2) Generalized weakness Code(s): R53.1 - WEAKNESS (3) Unable to ambulate Code(s): R26.2 - DIFFICULTY IN WALKING, NOT ELSEWHERE CLASSIFIED (4) Blisters of multiple sites Code(s): R23.8 - OTHER SKIN CHANGES (5) Abnormal liver enzymes Code(s): R74.8 - ABNORMAL LEVELS OF OTHER SERUM ENZYMES (6) Wound of foot Code(s): S91.309A - UNSPECIFIED OPEN WOUND, UNSPECIFIED FOOT, INITIAL ENCOUNTER (7) Afib Code(s): I48.91 - UNSPECIFIED ATRIAL FIBRILLATION (8) Anemia Code(s): D64.9 - ANEMIA, UNSPECIFIED Qualifiers: Iron deficiency anemia type: chronic blood loss (9) BPH (benign prostatic hyperplasia) Code(s): N40.0 - BENIGN PROSTATIC HYPERPLASIA WITHOUT LOWER URINRY TRACT SYMP (10) CAD (coronary artery disease) Code(s): I25.10 - ATHSCL HEART DISEASE OF [place] CORONARY ARTERY W/O ANG PCTRS (11) CHF (congestive heart failure) Code(s): I50.9 - HEART FAILURE, UNSPECIFIED (12) CKD (chronic kidney disease) Code(s): N18.9 - CHRONIC KIDNEY DISEASE, UNSPECIFIED (13) Diabetes mellitus Code(s): E11.9 - TYPE 2 DIABETES MELLITUS WITHOUT COMPLICATIONS (14) Diastolic CHF Code(s): I50.30 - UNSPECIFIED DIASTOLIC (CONGESTIVE) HEART FAILURE (15) Gastritis Code(s): K29.70 - GASTRITIS, UNSPECIFIED, WITHOUT BLEEDING (16) HTN (hypertension) Code(s): I10 - ESSENTIAL (PRIMARY) HYPERTENSION (17) History of colon cancer Code(s): Z85.038 - PERSONAL HISTORY OF MALIGNANT NEOPLASM OF LARGE INTESTINE (18) History of duodenal ulcer Code(s): Z87.19 - PERSONAL HISTORY OF OTHER DISEASES OF THE DIGESTIVE SYSTEM (19) Hyperlipidemia Code(s): E78.5 - HYPERLIPIDEMIA, UNSPECIFIED (20) Hypothyroid Code(s): E03.9 - HYPOTHYROIDISM, UNSPECIFIED (21) Paroxysmal atrial fibrillation Code(s): I48.0 - PAROXYSMAL ATRIAL FIBRILLATION (22) Peripheral arterial disease Code(s): I73.9 - PERIPHERAL VASCULAR DISEASE, UNSPECIFIED (23) Peripheral vascular disease Code(s): I73.9 - PERIPHERAL VASCULAR DISEASE, UNSPECIFIED (24) Pulmonary hypertension Code(s): I27.2 - OTHER SECONDARY PULMONARY HYPERTENSION * DO NOT USE * (25) Seizure Code(s): R56.9 - UNSPECIFIED CONVULSIONS (26) Seizure disorder Code(s): G40.909 - EPILEPSY, UNSP, NOT INTRACTABLE, WITHOUT STATUS EPILEPTICUS
[2019-12-17] MEDS ORDERED: PT OWN MED DRAWER 7, Y5N ONE (20:51)
[2019-12-17] MEDS: ROSUVASTATIN CA 10 MG TABLET (FP) PO SCH (21:00)
[2019-12-17] MEDS: SCOPOLAMINE HYDROBROMIDE 1 PATCH PATCH.TD72 TD SCH (22:35)
[2019-12-18] MEDS: MEROPENEM 500 MG in DEXTROSE 5%-WATER 100 ML IVPB SCH ×2 (01:00→13:35)
[2019-12-18] MEDS: FENTANYL NS IVPB 500 MCG/100 ML BAG IVPB SCH (02:36)
[2019-12-18] MEDS: PROPOFOL 1,000,000 MCG/100 ML VIAL IVPB SCH (02:36)
[2019-12-18] MEDS: INSULIN SLIDING SCALE (NOVOLOG) 1 VIAL SQ SCH ×3 (06:04→16:30)
[2019-12-18 06:56] LABS: ARTERIAL BLD GAS O2 SATURATION 92.2 mmHg (95-98); ARTERIAL BLOOD GAS BASE EXCESS 0.5 mmol/L (-2-2); ARTERIAL BLOOD GAS pH 7.418 (7.350-7.450)
[2019-12-18 07:15] LABS: ALLENS TEST POSITIVE; VENT MODE A/C; VENT RATE 18
[2019-12-18 07:40] LABS: BASO % 0.2 % (0-2.0); EOS % 0.9 % (0-4.5); HEMATOCRIT 24.8 % (35.4-49); LYMPH % 11.7 % (8-40); MCH 29.4 pg (25.7-33.7); MCHC 32.1 g/dl (32.0-35.9); MEAN CELL VOLUME 91.6 fl (80-96); MEAN PLT VOLUME 8.8 fl (7.5-11.1); MONO % 8.2 % (3.8-10.2); PLATELET COUNT 121 K/MM3 (134-434); RBC 2.71 M/mm3 (4.00-5.60); RDW 16.2 % (11.9-15.9); WHITE BLOOD COUNT 6.2 K/mm3 (4.0-10.0)
[2019-12-18 07:44] LABS: ALBUMIN 2.2 g/dl (3.4-5.0); BILIRUBIN,TOTAL 0.8 mg/dL (0.2-1); CALCIUM 7.9 mg/dL (8.5-10.1); CREATININE 3.5 mg/dL (0.55-1.3); MAGNESIUM 2.1 mg/dL (1.8-2.4); PHOSPHOROUS 4.7 mg/dL (2.5-4.9); POTASSIUM 4.7 mmol/L (3.5-5.1); TOT PROT 5.3 g/dl (6.4-8.2)
[2019-12-18] MEDS: SEVELAMER CARBONATE 0.8 GM POWDER PACKET PO SCH ×3 (08:13→17:40)
[2019-12-18] MEDS: TAMSULOSIN HCL 0.4 MG CAP PO SCH (08:13)
[2019-12-18 08:55] LABS: BLOOD UREA NITROGEN 148.3 mg/dL (7-18)
--- NOTE | 2019-12-18 09:21 | PN ---
Progress Note, Physician - Current Medication List Current Medications: Active Medications Albuterol/Ipratropium (Duoneb -) 1 amp NEB Q4H PRN PRN Reason: SHORT OF BREATH/WHEEZING Last Admin: 12/08/19 02:38 Dose: 1 amp Documented by: Apixaban (Eliquis -) 2.5 mg PO BID [facility] Last Admin: 12/17/19 21:00 Dose: 2.5 mg Documented by: Artificial Tears (Artificial Tears) 1 drop OU BID PRN PRN Reason: DRY EYES Last Admin: 12/17/19 10:22 Dose: 1 drop Documented by: Cefazolin Sodium 500 mg/ (Dextrose) 50 mls @ 100 mls/hr IVPB BID [facility] Last Admin: 12/17/19 21:00 Dose: 100 mls/hr Documented by: Meropenem 500 mg/ Dextrose 100 mls @ 200 mls/hr IVPB Q12H [facility] Last Admin: 12/18/19 01:00 Dose: 200 mls/hr Documented by: Fentanyl (Sublimaze Ivpb) 500 mcg in 100 mls @ 21.614 mls/hr IVPB TITR [facility]; Protocol Last Admin: 12/18/19 02:36 Dose: 0.23 mcg/kg/hr, 5 mls/hr Documented by: Propofol (Diprivan -) 1,000,000 mcg in 100 mls @ 3.164 mls/hr IVPB TITR [facility]; Protocol Last Admin: 12/18/19 02:36 Dose: 5 mcg/kg/min, 3.164 mls/hr Documented by: Insulin Aspart (Novolog Vial Sliding Scale -) 1 vial SQ ACHS [facility]; Protocol Last Admin: 12/18/19 06:04 Dose: Not Given Documented by: Levetiracetam (Keppra Injection -) 500 mg IVPB BID [facility] Last Admin: 12/17/19 21:00 Dose: 500 mg Documented by: Levothyroxine Sodium (Synthroid Injection -) 20 mcg IVPUSH DAILY [facility] Last Admin: 12/17/19 10:54 Dose: 20 mcg Documented by: Mycophenolate Mofetil (Cellcept Suspension -) 500 mg PO BID [facility] Last Admin: 12/17/19 21:00 Dose: 500 mg Documented by: Pantoprazole Sodium (Protonix Iv) 40 mg IVPUSH DAILY [facility] Last Admin: 12/17/19 09:36 Dose: 40 mg Documented by: Rosuvastatin Calcium (Crestor -) 10 mg PO HS [facility] Last Admin: 12/17/19 21:00 Dose: 10 mg Documented by: Scopolamine HBr (Transderm-Scop -) 1 patch TD Q72H [facility] Last Admin: 12/17/19 22:35 Dose: 1 patch Documented by: Sevelamer Carbonate (Renvela Powder Packet -) 0.8 gm PO TIDCM [facility] Last Admin: 12/18/19 08:13 Dose: 0.8 gm Documented by: Silver Sulfadiazine (Silvadene -) 1 applic TP BID [facility] Last Admin: 12/17/19 21:01 Dose: 1 applic Documented by: Tamsulosin HCl (Flomax -) 0.4 mg PO 0830 [facility] Last Admin: 12/18/19 08:13 Dose: 0.4 mg Documented by: - Objective Vital Signs: Vital Signs Temperature 98.2 F 12/18/19 03:00 Pulse Rate 79 12/18/19 08:31 Respiratory Rate 19 12/18/19 08:31 Blood Pressure 135/64 12/18/19 08:00 O2 Sat by Pulse Oximetry (%) 95 12/18/19 09:00 Cardiovascular: Yes: S1, S2 Respiratory: Yes: Mechanically Ventilated Gastrointestinal: Yes: Normal Bowel Sounds, Soft Labs: CBC, BMP 12/18/19 05:00 12/18/19 05:00 INR, PTT INR 1.29 (0.83-1.09) H 12/15/19 11:01 Problem List - Problems (1) Bullous pemphigoid Code(s): L12.0 - BULLOUS PEMPHIGOID (2) Caregiver unable to cope Code(s): Z74.8 - OTHER PROBLEMS RELATED TO CARE PROVIDER DEPENDENCY (3) Afib Code(s): I48.91 - UNSPECIFIED ATRIAL FIBRILLATION (4) Anemia Code(s): D64.9 - ANEMIA, UNSPECIFIED Qualifiers: Iron deficiency anemia type: chronic blood loss (5) CHF (congestive heart failure) Code(s): I50.9 - HEART FAILURE, UNSPECIFIED (6) Diabetes mellitus Code(s): E11.9 - TYPE 2 DIABETES MELLITUS WITHOUT COMPLICATIONS (7) Hypothyroidism Code(s): E03.9 - HYPOTHYROIDISM, UNSPECIFIED (8) Altered mental state Code(s): R41.82 - ALTERED MENTAL STATUS, UNSPECIFIED Assessment/Plan - Problems (1) Acute respiratory failure Assessment/Plan: -Mech vent -Pulmonary consult -IV Cefazolin + meropenem -Enteral feeds -Bronchodilators Problems reviewed: Yes Code(s): J96.00 - ACUTE RESPIRATORY FAILURE, UNSP W HYPOXIA OR HYPERCAPNIA (2) Bullous pemphigoid Assessment/Plan: -On cellcept -Silvadene top Problems reviewed: Yes Code(s): L12.0 - BULLOUS PEMPHIGOID (3) Acute on chronic renal insufficiency Assessment/Plan: -Nephrology on board -monitor daily labs Problems reviewed: Yes Code(s): N28.9 - DISORDER OF KIDNEY AND URETER, UNSPECIFIED; N18.9 - CHRONIC KIDNEY DISEASE, UNSPECIFIED (4) Pneumonia Assessment/Plan: -Likely aspiration -CXR reviewed -Repeat COVID 19 PCR negative -IV abx -ID consult -Lactic acidosis noted Problems reviewed: Yes Code(s): J18.9 - PNEUMONIA, UNSPECIFIED ORGANISM (5) Afib Assessment/Plan: -Chronic, rate controlled -D/C heparin -Eliquis 2.5 mg po bid for age>80, Cr>1.5 -Transfuse if needed Problems reviewed: Yes Code(s): I48.91 - UNSPECIFIED ATRIAL FIBRILLATION (6) Anemia Assessment/Plan: -Chronic -workup last admission was negative -hematology consult -Transfuse only if hg<7.0 to avoid fluid overload. Problems reviewed: Yes Code(s): D64.9 - ANEMIA, UNSPECIFIED (7) Bacteremia Assessment/Plan: -Repeat BC preliminary negative -IV abx -ID on board Problems reviewed: Yes Code(s): R78.81 - BACTEREMIA Ongoing discussion with family regarding comfort care. GI PPX Pt tolerating enteral feeds
[2019-12-18] MEDS ORDERED: PT OWN MED DRAWER 7, Y5N ONE ×2 (09:52→21:45)
[2019-12-18] MEDS: MYCOPHENOLATE MOFETIL 200 MG/ML SUSPENSION PO SCH ×2 (10:04→21:45)
[2019-12-18] MEDS: APIXABAN 2.5 MG TABLET PO SCH ×2 (10:10→21:43)
[2019-12-18] MEDS: levETIRAcetam 500 MG/5 ML INJECTION VIAL IVPB SCH ×2 (10:11→21:43)
[2019-12-18] MEDS: PANTOPRAZOLE SODIUM 40 MG VIAL IVPUSH SCH (10:11)
[2019-12-18] MEDS: SILVER SULFADIAZINE 1% TOP CREAM 50 GM JAR TP SCH ×2 (10:11→21:43)
[2019-12-18] MEDS: LEVOTHYROXINE SODIUM 100 MCG VIAL IVPUSH SCH (10:12)
[2019-12-18] MEDS: CEFAZOLIN 500 MG in DEXTROSE 5%-WATER - 50 ML IVPB SCH ×2 (10:13→21:45)
[2019-12-18] MEDS ORDERED: MEROPENEM 500 MG VIAL (RESTRICTED TO ID) IVPB ONE (13:30)
[2019-12-18] MEDS ORDERED: DEXTROSE 5%-WATER 100 ML IVPB ONE (13:30)
--- NOTE | 2019-12-18 13:31 | PN ---
Teaching Attending Note Name of Resident: Otilia Felipe ATTENDING PHYSICIAN STATEMENT I saw and evaluated the patient. I reviewed the resident's note and discussed the case with the resident. I agree with the resident's findings and plan as documented. SUBJECTIVE: Patient seen and examined in the ICU. Remains intubated, sedated. Remains off pressors for hemodynamic support. OBJECTIVE: Intake & Output 12/15/19 12/16/19 12/17/19 12/18/19 23:59 23:59 23:59 23:59 Intake Total 2504 2033 2800 1493 Output Total 1960 4600 1700 Balance 544 -2567 1100 1493 Weight 237 lb 14.4 oz 238 lb 4 oz 232 lb 8 oz 229 lb 8.019 oz Last Vital Signs Temp Pulse Resp BP Pulse Ox 99.1 F 74 18 138/70 97 12/18/19 10:00 12/18/19 12:00 12/18/19 12:00 12/18/19 12:00 12/18/19 12:14 Active Medications Albuterol/Ipratropium (Duoneb -) 1 amp NEB Q4H PRN PRN Reason: SHORT OF BREATH/WHEEZING Last Admin: 12/08/19 02:38 Dose: 1 amp Documented by: Apixaban (Eliquis -) 2.5 mg PO BID [facility] Last Admin: 12/18/19 10:10 Dose: 2.5 mg Documented by: Artificial Tears (Artificial Tears) 1 drop OU BID PRN PRN Reason: DRY EYES Last Admin: 12/17/19 10:22 Dose: 1 drop Documented by: Cefazolin Sodium 500 mg/ (Dextrose) 50 mls @ 100 mls/hr IVPB BID [facility] Last Admin: 12/18/19 10:13 Dose: 100 mls/hr Documented by: Meropenem 500 mg/ Dextrose 100 mls @ 200 mls/hr IVPB Q12H [facility] Last Admin: 12/18/19 01:00 Dose: 200 mls/hr Documented by: Fentanyl (Sublimaze Ivpb) 500 mcg in 100 mls @ 21.614 mls/hr IVPB TITR [facility]; Protocol Last Admin: 12/18/19 02:36 Dose: 0.23 mcg/kg/hr, 5 mls/hr Documented by: Propofol (Diprivan -) 1,000,000 mcg in 100 mls @ 3.164 mls/hr IVPB TITR [facility]; Protocol Last Admin: 12/18/19 02:36 Dose: 5 mcg/kg/min, 3.164 mls/hr Documented by: Insulin Aspart (Novolog Vial Sliding Scale -) 1 vial SQ ACHS [facility]; Protocol Last Admin: 12/18/19 11:17 Dose: Not Given Documented by: Levetiracetam (Keppra Injection -) 500 mg IVPB BID [facility] Last Admin: 12/18/19 10:11 Dose: 500 mg Documented by: Levothyroxine Sodium (Synthroid Injection -) 20 mcg IVPUSH DAILY [facility] Last Admin: 12/18/19 10:12 Dose: 20 mcg Documented by: Mycophenolate Mofetil (Cellcept Suspension -) 500 mg PO BID [facility] Last Admin: 12/18/19 10:04 Dose: 500 mg Documented by: Pantoprazole Sodium (Protonix Iv) 40 mg IVPUSH DAILY [facility] Last Admin: 12/18/19 10:11 Dose: 40 mg Documented by: Rosuvastatin Calcium (Crestor -) 10 mg PO HS [facility] Last Admin: 12/17/19 21:00 Dose: 10 mg Documented by: Scopolamine HBr (Transderm-Scop -) 1 patch TD Q72H [facility] Last Admin: 12/17/19 22:35 Dose: 1 patch Documented by: Sevelamer Carbonate (Renvela Powder Packet -) 0.8 gm PO TIDCM [facility] Last Admin: 12/18/19 08:13 Dose: 0.8 gm Documented by: Silver Sulfadiazine (Silvadene -) 1 applic TP BID [facility] Last Admin: 12/18/19 10:11 Dose: 1 applic Documented by: Tamsulosin HCl (Flomax -) 0.4 mg PO 0830 [facility] Last Admin: 12/18/19 08:13 Dose: 0.4 mg Documented by: Gen: intubated, sedated Heart: RRR Lung: decreased breath sounds at the bases Abd: softly distended, nontender Ext: no edema, multiple ulcers Laboratory Results - last 24 hr 12/17/19 12/17/19 12/18/19 16:13 21:29 05:00 WBC 6.2 RBC 2.71 L Hgb 8.0 L Hct 24.8 L MCV 91.6 MCH 29.4 MCHC 32.1 RDW 16.2 H Plt Count 121 L MPV 8.8 Absolute Neuts (auto) 4.9 Neutrophils % 79.0 Lymphocytes % 11.7 Monocytes % 8.2 Eosinophils % 0.9 Basophils % 0.2 Nucleated RBC % 0 Anticoagulation Therapy Puncture Site Patient Temperature ABG pH ABG pCO2 ABG pO2 ABG HCO3 ABG O2 Sat (Measured) ABG O2 Content ABG Base Excess Ishan Test Patient On Oxygen O2 Delivery Device Oxygen Flow Rate Vent Mode Vent Rate Mechanical Rate PEEP Pressure Support Vent Sodium Potassium Chloride Carbon Dioxide Anion Gap BUN Creatinine Est GFR (CKD-EPI)AfAm Est GFR (CKD-EPI)NonAf POC Glucometer 139 145 Random Glucose Calcium Phosphorus Magnesium Total Bilirubin AST ALT Alkaline Phosphatase Total Protein Albumin 12/18/19 12/18/19 12/18/19 05:00 05:24 06:10 WBC RBC Hgb Hct MCV MCH MCHC RDW Plt Count MPV Absolute Neuts (auto) Neutrophils % Lymphocytes % Monocytes % Eosinophils % Basophils % Nucleated RBC % Anticoagulation Therapy No Result Required. Puncture Site Right radial Patient Temperature No Result Required. ABG pH 7.418 ABG pCO2 39.60 ABG pO2 62.0 L ABG HCO3 25.0 ABG O2 Sat (Measured) 92.2 L ABG O2 Content No Result Required. ABG Base Excess 0.5 Ishan Test Positive Patient On Oxygen Yes O2 Delivery Device Vent Oxygen Flow Rate 40 Vent Mode A/c Vent Rate 18 Mechanical Rate No Result Required. PEEP 5.0 Pressure Support Vent 450 Sodium 144 Potassium 4.7 Chloride 106 Carbon Dioxide 26 Anion Gap 12 BUN 148.3 H* Creatinine 3.5 H Est GFR (CKD-EPI)AfAm 17.91 Est GFR (CKD-EPI)NonAf 15.45 POC Glucometer 96 Random Glucose 96 Calcium 7.9 L Phosphorus 4.7 Magnesium 2.1 Total Bilirubin 0.8 AST 18 ALT 9 L Alkaline Phosphatase 66 Total Protein 5.3 L Albumin 2.2 L 12/18/19 11:16 WBC RBC Hgb Hct MCV MCH MCHC RDW Plt Count MPV Absolute Neuts (auto) Neutrophils % Lymphocytes % Monocytes % Eosinophils % Basophils % Nucleated RBC % Anticoagulation Therapy Puncture Site Patient Temperature ABG pH ABG pCO2 ABG pO2 ABG HCO3 ABG O2 Sat (Measured) ABG O2 Content ABG Base Excess Ishan Test Patient On Oxygen O2 Delivery Device Oxygen Flow Rate Vent Mode Vent Rate Mechanical Rate PEEP Pressure Support Vent Sodium Potassium Chloride Carbon Dioxide Anion Gap BUN Creatinine Est GFR (CKD-EPI)AfAm Est GFR (CKD-EPI)NonAf POC Glucometer 127 Random Glucose Calcium Phosphorus Magnesium Total Bilirubin AST ALT Alkaline Phosphatase Total Protein Albumin Problem List - Problems (1) Bullous pemphigoid Code(s): L12.0 - BULLOUS PEMPHIGOID (2) Generalized weakness Code(s): R53.1 - WEAKNESS (3) Unable to ambulate Code(s): R26.2 - DIFFICULTY IN WALKING, NOT ELSEWHERE CLASSIFIED (4) Blisters of multiple sites Code(s): R23.8 - OTHER SKIN CHANGES (5) Abnormal liver enzymes Code(s): R74.8 - ABNORMAL LEVELS OF OTHER SERUM ENZYMES (6) Wound of foot Code(s): S91.309A - UNSPECIFIED OPEN WOUND, UNSPECIFIED FOOT, INITIAL ENCOUNTER (7) Afib Code(s): I48.91 - UNSPECIFIED ATRIAL FIBRILLATION (8) Anemia Code(s): D64.9 - ANEMIA, UNSPECIFIED Qualifiers: Qualified Code(s): D50.0 - Iron deficiency anemia secondary to blood loss (chronic) (9) BPH (benign prostatic hyperplasia) Code(s): N40.0 - BENIGN PROSTATIC HYPERPLASIA WITHOUT LOWER URINRY TRACT SYMP (10) CAD (coronary artery disease) Code(s): I25.10 - ATHSCL HEART DISEASE OF [place] CORONARY ARTERY W/O ANG PCTRS (11) CHF (congestive heart failure) Code(s): I50.9 - HEART FAILURE, UNSPECIFIED (12) CKD (chronic kidney disease) Code(s): N18.9 - CHRONIC KIDNEY DISEASE, UNSPECIFIED (13) Diabetes mellitus Code(s): E11.9 - TYPE 2 DIABETES MELLITUS WITHOUT COMPLICATIONS (14) Diastolic CHF Code(s): I50.30 - UNSPECIFIED DIASTOLIC (CONGESTIVE) HEART FAILURE (15) Gastritis Code(s): K29.70 - GASTRITIS, UNSPECIFIED, WITHOUT BLEEDING (16) HTN (hypertension) Code(s): I10 - ESSENTIAL (PRIMARY) HYPERTENSION (17) History of colon cancer Code(s): Z85.038 - PERSONAL HISTORY OF MALIGNANT NEOPLASM OF LARGE INTESTINE (18) History of duodenal ulcer Code(s): Z87.19 - PERSONAL HISTORY OF OTHER DISEASES OF THE DIGESTIVE SYSTEM (19) Hyperlipidemia Code(s): E78.5 - HYPERLIPIDEMIA, UNSPECIFIED (20) Hypothyroid Code(s): E03.9 - HYPOTHYROIDISM, UNSPECIFIED (21) Paroxysmal atrial fibrillation Code(s): I48.0 - PAROXYSMAL ATRIAL FIBRILLATION (22) Peripheral arterial disease Code(s): I73.9 - PERIPHERAL VASCULAR DISEASE, UNSPECIFIED (23) Peripheral vascular disease Code(s): I73.9 - PERIPHERAL VASCULAR DISEASE, UNSPECIFIED (24) Pulmonary hypertension Code(s): I27.2 - OTHER SECONDARY PULMONARY HYPERTENSION * DO NOT USE * (25) Seizure Code(s): R56.9 - UNSPECIFIED CONVULSIONS (26) Seizure disorder Code(s): G40.909 - EPILEPSY, UNSP, NOT INTRACTABLE, WITHOUT STATUS EPILEPTICUS ASSESSMENT AND PLAN: s/p Cardiopulmonary Arrest Acute Hypoxic and Hypercapneic Respiratory Failure Likely Aspiration Pneumonia Septic Shock Acute on Chronic Renal Failure Lactic Acidosis Bullous Pemphigoid CAD LV Diastolic Dysfunction Atrial Fibrillation Seizure Disorder h/o CVA Hypothyroidism Anemia Thrombocytopenia (?) Uremia - continue antibiotics - Normal transfusion thresholds - monitor urine output, creatinine - rate control - Sedation vacation to assess mental status - continue volume assist control - enteral feeds - DVT/GI prophylaxis - ICU monitoring Family for [facility] Dr Contreras Critical care time spent in reviewing chart, evaluating patient and formulating plan 35 min Problem List - Problems (1) Bullous pemphigoid Code(s): L12.0 - BULLOUS PEMPHIGOID (2) Generalized weakness Code(s): R53.1 - WEAKNESS (3) Unable to ambulate Code(s): R26.2 - DIFFICULTY IN WALKING, NOT ELSEWHERE CLASSIFIED (4) Blisters of multiple sites Code(s): R23.8 - OTHER SKIN CHANGES (5) Abnormal liver enzymes Code(s): R74.8 - ABNORMAL LEVELS OF OTHER SERUM ENZYMES (6) Wound of foot Code(s): S91.309A - UNSPECIFIED OPEN WOUND, UNSPECIFIED FOOT, INITIAL ENCOUNTER (7) Afib Code(s): I48.91 - UNSPECIFIED ATRIAL FIBRILLATION (8) Anemia Code(s): D64.9 - ANEMIA, UNSPECIFIED Qualifiers: Iron deficiency anemia type: chronic blood loss (9) BPH (benign prostatic hyperplasia) Code(s): N40.0 - BENIGN PROSTATIC HYPERPLASIA WITHOUT LOWER URINRY TRACT SYMP (10) CAD (coronary artery disease) Code(s): I25.10 - ATHSCL HEART DISEASE OF [place] CORONARY ARTERY W/O ANG PCTRS (11) CHF (congestive heart failure) Code(s): I50.9 - HEART FAILURE, UNSPECIFIED (12) CKD (chronic kidney disease) Code(s): N18.9 - CHRONIC KIDNEY DISEASE, UNSPECIFIED (13) Diabetes mellitus Code(s): E11.9 - TYPE 2 DIABETES MELLITUS WITHOUT COMPLICATIONS (14) Diastolic CHF Code(s): I50.30 - UNSPECIFIED DIASTOLIC (CONGESTIVE) HEART FAILURE (15) Gastritis Code(s): K29.70 - GASTRITIS, UNSPECIFIED, WITHOUT BLEEDING (16) HTN (hypertension) Code(s): I10 - ESSENTIAL (PRIMARY) HYPERTENSION (17) History of colon cancer Code(s): Z85.038 - PERSONAL HISTORY OF MALIGNANT NEOPLASM OF LARGE INTESTINE (18) History of duodenal ulcer Code(s): Z87.19 - PERSONAL HISTORY OF OTHER DISEASES OF THE DIGESTIVE SYSTEM (19) Hyperlipidemia Code(s): E78.5 - HYPERLIPIDEMIA, UNSPECIFIED (20) Hypothyroid Code(s): E03.9 - HYPOTHYROIDISM, UNSPECIFIED (21) Paroxysmal atrial fibrillation Code(s): I48.0 - PAROXYSMAL ATRIAL FIBRILLATION (22) Peripheral arterial disease Code(s): I73.9 - PERIPHERAL VASCULAR DISEASE, UNSPECIFIED (23) Peripheral vascular disease Code(s): I73.9 - PERIPHERAL VASCULAR DISEASE, UNSPECIFIED (24) Pulmonary hypertension Code(s): I27.2 - OTHER SECONDARY PULMONARY HYPERTENSION * DO NOT USE * (25) Seizure Code(s): R56.9 - UNSPECIFIED CONVULSIONS (26) Seizure disorder Code(s): G40.909 - EPILEPSY, UNSP, NOT INTRACTABLE, WITHOUT STATUS EPILEPTICUS
--- NOTE | 2019-12-18 15:13 | PN ---
Physical Exam: SUBJECTIVE: Patient seen and examined. Pt is sedated and intubated. OBJECTIVE: Vital Signs Period Temp Pulse Resp BP Sys/Hair Pulse Ox Last 24 Hr 98.2 F-99.1 F 62-80 12-19 123-155/58-81 95-100 GENERAL: The patient is sedated HEAD: NCAT LUNGS: Breath sounds equal, clear to auscultation anteriorly HEART: Regular rate and rhythm, S1, S2 without murmur, rub or gallop. ABDOMEN: Soft, nondistended. Normoactive bowel sounds. EXTREMITIES: warm, well-perfused, +1 pitting edema b/l lower extremities. SKIN: Warm. Multiple lesions in varying stages of healing present diffusely. Laboratory Last Values WBC 6.2 K/mm3 (4.0-10.0) 12/18/19 05:00 RBC 2.71 M/mm3 (4.00-5.60) L 12/18/19 05:00 Hgb 8.0 GM/dL (11.7-16.9) L 12/18/19 05:00 Hct 24.8 % (35.4-49) L 12/18/19 05:00 MCV 91.6 fl (80-96) 12/18/19 05:00 MCH 29.4 pg (25.7-33.7) 12/18/19 05:00 MCHC 32.1 g/dl (32.0-35.9) 12/18/19 05:00 RDW 16.2 % (11.9-15.9) H 12/18/19 05:00 Plt Count 121 K/MM3 (134-434) L 12/18/19 05:00 MPV 8.8 fl (7.5-11.1) 12/18/19 05:00 Absolute Neuts (auto) 4.9 K/mm3 (1.5-8.0) 12/18/19 05:00 Neutrophils % 79.0 % (42.8-82.8) 12/18/19 05:00 Neutrophils % (Manual) 95.0 % (42.8-82.8) H 12/10/19 06:00 Band Neutrophils % 4.0 % 12/10/19 06:00 Lymphocytes % 11.7 % (8-40) 12/18/19 05:00 Lymphocytes % (Manual) 1.0 % (8-40) L D 12/10/19 06:00 Monocytes % 8.2 % (3.8-10.2) 12/18/19 05:00 Monocytes % (Manual) 0 % (3.8-10.2) L 12/10/19 06:00 Eosinophils % 0.9 % (0-4.5) 12/18/19 05:00 Eosinophils % (Manual) 0.0 % (0-4.5) 12/10/19 06:00 Basophils % 0.2 % (0-2.0) 12/18/19 05:00 Basophils % (Manual) 0.0 % (0-2.0) 12/10/19 06:00 Myelocytes % (Man) 0 % (0-2) 12/10/19 06:00 Promyelocytes % (Man) 0 % (0-2) 12/10/19 06:00 Blast Cells % (Manual) 0 % (0-0) 12/10/19 06:00 Nucleated RBC % 0 % (0-0) 12/18/19 05:00 Metamyelocytes 0 % (0-2) 12/10/19 06:00 Hypochromia 1+ 12/10/19 06:00 Platelet Estimate Decreased 12/10/19 06:00 Platelet Comment Present 12/07/19 19:10 Polychromasia 0 12/10/19 06:00 Poikilocytosis 1+ 12/10/19 06:00 Anisocytosis 1+ 12/10/19 06:00 Microcytosis 1+ 12/10/19 06:00 Macrocytosis 1+ 12/10/19 06:00 Tear Drop Cells 1+ 12/07/19 19:10 Ovalocytes 1+ 12/10/19 06:00 Kayla Cells 1+ 12/07/19 19:10 Rouleaux 1+ 12/09/19 08:15 Schistocytes 1+ 12/10/19 06:00 PT with INR 15.30 SEC (9.7-13.0) H 12/15/19 11:01 INR 1.29 (0.83-1.09) H 12/15/19 11:01 Anticoagulation Therapy No Result Required. 12/18/19 06:10 Puncture Site Right radial 12/18/19 06:10 Patient Temperature No Result Required. 12/18/19 06:10 ABG pH 7.418 (7.350-7.450) 12/18/19 06:10 ABG pCO2 39.60 mmHg (35-45) 12/18/19 06:10 ABG pO2 62.0 mmHg (80-100) L 12/18/19 06:10 ABG HCO3 25.0 mmol/L (22-27) 12/18/19 06:10 ABG O2 Sat (Measured) 92.2 mmHg (95-98) L 12/18/19 06:10 ABG O2 Content No Result Required. 12/18/19 06:10 ABG Base Excess 0.5 mmol/L (-2-2) 12/18/19 06:10 Ishan Test Positive 12/18/19 06:10 Patient On Oxygen Yes 12/18/19 06:10 O2 Delivery Device Vent 12/18/19 06:10 Oxygen Flow Rate 40 12/18/19 06:10 Vent Mode A/c 12/18/19 06:10 Vent Rate 18 12/18/19 06:10 Mechanical Rate No Result Required. 12/18/19 06:10 PEEP 5.0 cmH2O 12/18/19 06:10 Pressure Support Vent 450 12/18/19 06:10 Sodium 144 mmol/L (136-145) 12/18/19 05:00 Potassium 4.7 mmol/L (3.5-5.1) 12/18/19 05:00 Chloride 106 mmol/L (98-107) 12/18/19 05:00 Carbon Dioxide 26 mmol/L (21-32) 12/18/19 05:00 Anion Gap 12 MMOL/L (8-16) 12/18/19 05:00 BUN 148.3 mg/dL (7-18) H* 12/18/19 05:00 Creatinine 3.5 mg/dL (0.55-1.3) H 12/18/19 05:00 Est GFR (CKD-EPI)AfAm 17.91 12/18/19 05:00 Est GFR (CKD-EPI)NonAf 15.45 12/18/19 05:00 POC Glucometer 127 UNITS (80-120) 12/18/19 11:16 Random Glucose 96 mg/dL (74-106) 12/18/19 05:00 Lactic Acid 3.6 mmol/L (0.4-2.0) H* 12/09/19 08:15 Calcium 7.9 mg/dL (8.5-10.1) L 12/18/19 05:00 Phosphorus 4.7 mg/dL (2.5-4.9) 12/18/19 05:00 Magnesium 2.1 mg/dL (1.8-2.4) 12/18/19 05:00 Iron 180 ug/dL (50-175) H 12/04/19 06:55 TIBC 197 ug/dL (250-450) L 12/04/19 06:55 Iron Saturation 91 % (17.5-39) H 12/04/19 06:55 Unsaturated IBC 17 ug/dL (200-275) L 12/04/19 06:55 Ferritin 736.1 ng/ml (8-388) H 12/04/19 06:55 Total Bilirubin 0.8 mg/dL (0.2-1) 12/18/19 05:00 AST 18 U/L (15-37) 12/18/19 05:00 ALT 9 U/L (13-61) L 12/18/19 05:00 Alkaline Phosphatase 66 U/L (45-117) 12/18/19 05:00 Creatine Kinase 38 U/L (26-308) 12/07/19 14:00 Troponin I < 0.02 ng/ml (0.00-0.05) 12/09/19 08:15 Total Protein 5.3 g/dl (6.4-8.2) L 12/18/19 05:00 Albumin 2.2 g/dl (3.4-5.0) L 12/18/19 05:00 Prolactin 287.0 ng/ml (4.0-15.2) H 12/09/19 08:15 Vancomycin Pre-Dose 14.8 ug/ml (5-10) H 12/10/19 10:33 COVID-19 (SHENG) Not detected (Not Detected) 12/08/19 22:30 Blood Type B POSITIVE 12/11/19 11:00 Antibody Screen Negative 12/11/19 11:00 Crossmatch See Detail 12/11/19 11:00 Active Medications Albuterol/Ipratropium (Duoneb -) 1 amp NEB Q4H PRN PRN Reason: SHORT OF BREATH/WHEEZING Last Admin: 12/08/19 02:38 Dose: 1 amp Documented by: Apixaban (Eliquis -) 2.5 mg PO BID [facility] Last Admin: 12/18/19 10:10 Dose: 2.5 mg Documented by: Artificial Tears (Artificial Tears) 1 drop OU BID PRN PRN Reason: DRY EYES Last Admin: 12/17/19 10:22 Dose: 1 drop Documented by: Cefazolin Sodium 500 mg/ (Dextrose) 50 mls @ 100 mls/hr IVPB BID [facility] Last Admin: 12/18/19 10:13 Dose: 100 mls/hr Documented by: Meropenem 500 mg/ Dextrose 100 mls @ 200 mls/hr IVPB Q12H [facility] Last Admin: 12/18/19 13:35 Dose: 200 mls/hr Documented by: Fentanyl (Sublimaze Ivpb) 500 mcg in 100 mls @ 21.614 mls/hr IVPB TITR [facility]; Protocol Last Admin: 12/18/19 02:36 Dose: 0.23 mcg/kg/hr, 5 mls/hr Documented by: Propofol (Diprivan -) 1,000,000 mcg in 100 mls @ 3.164 mls/hr IVPB TITR [facility]; Protocol Last Admin: 12/18/19 02:36 Dose: 5 mcg/kg/min, 3.164 mls/hr Documented by: Insulin Aspart (Novolog Vial Sliding Scale -) 1 vial SQ ACHS [facility]; Protocol Last Admin: 12/18/19 11:17 Dose: Not Given Documented by: Levetiracetam (Keppra Injection -) 500 mg IVPB BID [facility] Last Admin: 12/18/19 10:11 Dose: 500 mg Documented by: Levothyroxine Sodium (Synthroid Injection -) 20 mcg IVPUSH DAILY [facility] Last Admin: 12/18/19 10:12 Dose: 20 mcg Documented by: Mycophenolate Mofetil (Cellcept Suspension -) 500 mg PO BID [facility] Last Admin: 12/18/19 10:04 Dose: 500 mg Documented by: Pantoprazole Sodium (Protonix Iv) 40 mg IVPUSH DAILY [facility] Last Admin: 12/18/19 10:11 Dose: 40 mg Documented by: Rosuvastatin Calcium (Crestor -) 10 mg PO HS [facility] Last Admin: 12/17/19 21:00 Dose: 10 mg Documented by: Scopolamine HBr (Transderm-Scop -) 1 patch TD Q72H [facility] Last Admin: 12/17/19 22:35 Dose: 1 patch Documented by: Sevelamer Carbonate (Renvela Powder Packet -) 0.8 gm PO TIDCM [facility] Last Admin: 12/18/19 13:34 Dose: 0.8 gm Documented by: Silver Sulfadiazine (Silvadene -) 1 applic TP BID [facility] Last Admin: 12/18/19 10:11 Dose: 1 applic Documented by: Tamsulosin HCl (Flomax -) 0.4 mg PO 0830 [facility] Last Admin: 12/18/19 08:13 Dose: 0.4 mg Documented by: ASSESSMENT/PLAN: 79 y/o male PMH dCHF, afib, CAD s/p PCI, HTN, seziure d/o, CVA with RIGHT sided residual deficit, CKD, hypothyroidism, and bullous pemphigoid. [employer] called for unresponsiveness and possibly aspiration PNA. He is now s/p cardiopulmonary arrest (on 12/09/2019) demonstrating PEA x2 (ROSC >1 min for both) in the ICU 2/2 acute hypoxic respiratory failure. # Neuro: seizure d/o, h/o CVA Right side residual deficit Intubated and sedated On Fentanyl 50, propofol 10. # CVS: afid, dCHF, CAD, HTN, anemia Transfuse hb < 7 For periods of bradycardia, ensure electrolytes are repleted. If concurrent with hypotension, consider dopamine. # Pulm Covid NEGATIVE 12/02 and 12/07 ARDS, aspiration PNA 18/450/40%/5 Plat 18 CXR 12/17 no significant change. # ID Cefazolin and meropenem day 7 (12/11) Sputum pseudomonas. Blood and urine cxs neg. # Renal: LETITIA on CKD Cr: 3.9-->3.5 Nephro consulted. Dialysis not recommended at this time. # TLD RIGHT IJ 12/08 ETT 12/07 [place] # FEN Hold Cont. to monitor and replete as needed. Nephro TF diet 40cc/hr # PPX Protonix 40 mg IV QD Heparin # Disposition Continue to monitor in ICU. Called for palliative care consult. Will continue to speak with family about goals of care. Visit type - Emergency Visit Emergency Visit: Yes ED Registration Date: 12/03/19 Care time: The patient presented to the Emergency Department on the above date and was hospitalized for further evaluation of their emergent condition. - New Patient This patient is new to me today: No - Critical Care Critical Care patient: Yes Total Critical Care Time (in minutes): 37 Critical Care Statement: The care of this patient involved high complexity decision making to prevent further life threatening deterioration of the patient's condition and/or to evaluate & treat vital organ system(s) failure or risk of failure. ATTENDING PHYSICIAN STATEMENT I saw and evaluated the patient. I reviewed the resident's note and discussed the case with the resident. I agree with the resident's findings and plan as documented. SUBJECTIVE: OBJECTIVE: ASSESSMENT AND PLAN:
[2019-12-18] MEDS ORDERED: FENTANYL IVPB 500 MCG/100 ML BAG IVPB ONE (15:42)
--- NOTE | 2019-12-18 18:28 | PN ---
Progress Note, Physician History of Present Illness: Pt seen and examined at bedside. He remains in the ICU. He remains intubated. - Current Medication List Current Medications: Active Medications Albuterol/Ipratropium (Duoneb -) 1 amp NEB Q4H PRN PRN Reason: SHORT OF BREATH/WHEEZING Last Admin: 12/08/19 02:38 Dose: 1 amp Documented by: Apixaban (Eliquis -) 2.5 mg PO BID [facility] Last Admin: 12/18/19 10:10 Dose: 2.5 mg Documented by: Artificial Tears (Artificial Tears) 1 drop OU BID PRN PRN Reason: DRY EYES Last Admin: 12/17/19 10:22 Dose: 1 drop Documented by: Cefazolin Sodium 500 mg/ (Dextrose) 50 mls @ 100 mls/hr IVPB BID [facility] Last Admin: 12/18/19 10:13 Dose: 100 mls/hr Documented by: Meropenem 500 mg/ Dextrose 100 mls @ 200 mls/hr IVPB Q12H [facility] Last Admin: 12/18/19 13:35 Dose: 200 mls/hr Documented by: Fentanyl (Sublimaze Ivpb) 500 mcg in 100 mls @ 21.614 mls/hr IVPB TITR [facility]; Protocol Last Admin: 12/18/19 02:36 Dose: 0.23 mcg/kg/hr, 5 mls/hr Documented by: Propofol (Diprivan -) 1,000,000 mcg in 100 mls @ 3.164 mls/hr IVPB TITR [facility]; Protocol Last Admin: 12/18/19 02:36 Dose: 5 mcg/kg/min, 3.164 mls/hr Documented by: Insulin Aspart (Novolog Vial Sliding Scale -) 1 vial SQ ACHS [facility]; Protocol Last Admin: 12/18/19 16:30 Dose: Not Given Documented by: Levetiracetam (Keppra Injection -) 500 mg IVPB BID [facility] Last Admin: 12/18/19 10:11 Dose: 500 mg Documented by: Levothyroxine Sodium (Synthroid Injection -) 20 mcg IVPUSH DAILY [facility] Last Admin: 12/18/19 10:12 Dose: 20 mcg Documented by: Mycophenolate Mofetil (Cellcept Suspension -) 500 mg PO BID [facility] Last Admin: 12/18/19 10:04 Dose: 500 mg Documented by: Pantoprazole Sodium (Protonix Iv) 40 mg IVPUSH DAILY [facility] Last Admin: 12/18/19 10:11 Dose: 40 mg Documented by: Rosuvastatin Calcium (Crestor -) 10 mg PO HS [facility] Last Admin: 12/17/19 21:00 Dose: 10 mg Documented by: Scopolamine HBr (Transderm-Scop -) 1 patch TD Q72H [facility] Last Admin: 12/17/19 22:35 Dose: 1 patch Documented by: Sevelamer Carbonate (Renvela Powder Packet -) 0.8 gm PO TIDCM [facility] Last Admin: 12/18/19 17:40 Dose: 0.8 gm Documented by: Silver Sulfadiazine (Silvadene -) 1 applic TP BID [facility] Last Admin: 12/18/19 10:11 Dose: 1 applic Documented by: Tamsulosin HCl (Flomax -) 0.4 mg PO 0830 [facility] Last Admin: 12/18/19 08:13 Dose: 0.4 mg Documented by: - Objective Vital Signs: Vital Signs Temperature 99 F 12/18/19 14:00 Pulse Rate 68 12/18/19 18:00 Respiratory Rate 18 12/18/19 18:00 Blood Pressure 112/56 L 12/18/19 18:00 O2 Sat by Pulse Oximetry (%) 97 12/18/19 16:14 Constitutional: Yes: Calm Eyes: Yes: Conjunctiva Clear HENT: Yes: Atraumatic Neck: Yes: Supple Cardiovascular: Yes: S1, S2 Respiratory: Yes: Mechanically Ventilated Gastrointestinal: Yes: Soft Genitourinary: Yes: [place] Present Edema: Yes Edema: LLE: 1+, RLE: 1+ Integumentary: Yes: Other (bulllous pemphigoid) Neurological: Yes: Lethargy Labs: CBC, BMP 12/18/19 05:00 12/18/19 05:00 INR, PTT INR 1.29 (0.83-1.09) H 12/15/19 11:01 - ....Imaging Chest X-ray: Report Reviewed Problem List - Problems (1) Acute respiratory failure Code(s): J96.00 - ACUTE RESPIRATORY FAILURE, UNSP W HYPOXIA OR HYPERCAPNIA (2) Bullous pemphigoid Code(s): L12.0 - BULLOUS PEMPHIGOID Assessment/Plan Current Medications Generic Name Dose Route Start Last Admin Trade Name Freq PRN Reason Stop Dose Admin Albuterol/Ipratropium 1 amp 12/07/19 13:25 12/08/19 02:38 Duoneb - NEB 1 amp Q4H PRN Administration SHORT OF BREATH/WHEEZING Apixaban 2.5 mg 12/10/19 22:00 12/18/19 10:10 Eliquis - PO 2.5 mg BID MICHAEL Administration Artificial Tears 1 drop 12/15/19 07:31 12/17/19 10:22 Artificial Tears OU 1 drop BID PRN Administration DRY EYES Cefazolin Sodium 500 mg/ 50 mls @ 100 mls/hr 12/12/19 12:45 12/18/19 10:13 Dextrose IVPB 100 mls/hr BID [facility] Administration Meropenem 500 mg/ Dextrose 100 mls @ 200 mls/hr 12/12/19 12:45 12/18/19 13:35 IVPB 200 mls/hr Q12H [facility] Administration Fentanyl 500 mcg in 100 mls @ 21.614 mls/hr 12/17/19 01:15 12/18/19 02:36 Sublimaze Ivpb IVPB 0.23 mcg/kg/hr TITR [facility] 5 mls/hr Administration Protocol 1 MCG/KG/HR Propofol 1,000,000 mcg in 100 mls @ 3.164 mls/hr 12/18/19 02:15 12/18/19 02:36 Diprivan - IVPB 5 mcg/kg/min TITR [facility]EL 3.164 mls/hr Administration Protocol 5 MCG/KG/MIN Insulin Aspart 1 vial 12/10/19 07:00 12/18/19 16:30 Novolog Vial Sliding Scale - SQ Not Given ACHS [facility] Protocol Levetiracetam 500 mg 12/09/19 10:00 12/18/19 10:11 Keppra Injection - IVPB 500 mg BID [facility] Administration Levothyroxine Sodium 20 mcg 12/09/19 10:00 12/18/19 10:12 Synthroid Injection - IVPUSH 20 mcg DAILY [facility] Administration Mycophenolate Mofetil 500 mg 12/10/19 22:00 12/18/19 10:04 Cellcept Suspension - PO 500 mg BID [facility] Administration Pantoprazole Sodium 40 mg 12/09/19 10:00 12/18/19 10:11 Protonix Iv IVPUSH 40 mg DAILY [facility] Administration Rosuvastatin Calcium 10 mg 12/07/19 22:00 12/17/19 21:00 Crestor - PO 10 mg HS [facility]EL Administration Scopolamine HBr 1 patch 12/17/19 22:00 12/17/19 22:35 Transderm-Scop - TD 1 patch Q72H [facility] Administration Sevelamer Carbonate 0.8 gm 12/16/19 17:30 12/18/19 17:40 Renvela Powder Packet - PO 0.8 gm TIDCM [facility] Administration Silver Sulfadiazine 1 applic 12/15/19 12:45 12/18/19 10:11 Silvadene - TP 1 applic BID [facility] Administration Tamsulosin HCl 0.4 mg 12/08/19 08:30 12/18/19 08:13 Flomax - PO 0.4 mg 0830 [facility] Administration Impression 1. CKD 2. CHF 3. BPH 4. a. fib 5. CAD 6. epilepsy 7. proteinuria 8. anemia 9. foot ulcer 10. abd wall cellulitis 11. bullous pemphigoid 12. LETITIA 13. hyperkalemia 14. cardiac arrest 15. resp failure on vent 16. r/o aspiration Plan - renal function continues to improve - cont cellcept for bullous pemphigoid - repeat labs in am - vent support - cont vent support - weaning per pulm - daily sedation vacation - no indication for HD - maintain map 65 - monitor urine output - letitia on ckd likely atn post cardiac arrest
[2019-12-18] MEDS: ROSUVASTATIN CA 10 MG TABLET (FP) PO SCH (21:43)
--- NOTE | 2019-12-18 23:34 | PN ---
Progress Note, Physician History of Present Illness: INTUBATED IN ICU AFEBRILE WBC WNL BC MSSA (12/06) BC (11/17) NO GROWTH - Current Medication List Current Medications: Active Medications Albuterol/Ipratropium (Duoneb -) 1 amp NEB Q4H PRN PRN Reason: SHORT OF BREATH/WHEEZING Last Admin: 12/08/19 02:38 Dose: 1 amp Documented by: Apixaban (Eliquis -) 2.5 mg PO BID [facility] Last Admin: 12/18/19 21:43 Dose: 2.5 mg Documented by: Artificial Tears (Artificial Tears) 1 drop OU BID PRN PRN Reason: DRY EYES Last Admin: 12/17/19 10:22 Dose: 1 drop Documented by: Cefazolin Sodium 500 mg/ (Dextrose) 50 mls @ 100 mls/hr IVPB BID [facility] Last Admin: 12/18/19 21:45 Dose: 100 mls/hr Documented by: Meropenem 500 mg/ Dextrose 100 mls @ 200 mls/hr IVPB Q12H [facility] Last Admin: 12/18/19 13:35 Dose: 200 mls/hr Documented by: Fentanyl (Sublimaze Ivpb) 500 mcg in 100 mls @ 21.614 mls/hr IVPB TITR [facility]; Protocol Last Admin: 12/18/19 02:36 Dose: 0.23 mcg/kg/hr, 5 mls/hr Documented by: Propofol (Diprivan -) 1,000,000 mcg in 100 mls @ 3.164 mls/hr IVPB TITR [facility]; Protocol Last Admin: 12/18/19 02:36 Dose: 5 mcg/kg/min, 3.164 mls/hr Documented by: Insulin Aspart (Novolog Vial Sliding Scale -) 1 vial SQ ACHS [facility]; Protocol Last Admin: 12/18/19 16:30 Dose: Not Given Documented by: Levetiracetam (Keppra Injection -) 500 mg IVPB BID [facility] Last Admin: 12/18/19 21:43 Dose: 500 mg Documented by: Levothyroxine Sodium (Synthroid Injection -) 20 mcg IVPUSH DAILY [facility] Last Admin: 12/18/19 10:12 Dose: 20 mcg Documented by: Mycophenolate Mofetil (Cellcept Suspension -) 500 mg PO BID [facility] Last Admin: 12/18/19 21:45 Dose: 500 mg Documented by: Pantoprazole Sodium (Protonix Iv) 40 mg IVPUSH DAILY [facility] Last Admin: 12/18/19 10:11 Dose: 40 mg Documented by: Rosuvastatin Calcium (Crestor -) 10 mg PO HS [facility] Last Admin: 12/18/19 21:43 Dose: 10 mg Documented by: Scopolamine HBr (Transderm-Scop -) 1 patch TD Q72H [facility] Last Admin: 12/17/19 22:35 Dose: 1 patch Documented by: Sevelamer Carbonate (Renvela Powder Packet -) 0.8 gm PO TIDCM [facility] Last Admin: 12/18/19 17:40 Dose: 0.8 gm Documented by: Silver Sulfadiazine (Silvadene -) 1 applic TP BID [facility] Last Admin: 12/18/19 21:43 Dose: 1 applic Documented by: Tamsulosin HCl (Flomax -) 0.4 mg PO 0830 [facility] Last Admin: 12/18/19 08:13 Dose: 0.4 mg Documented by: - Objective Vital Signs: Vital Signs Temperature 99 F 12/18/19 14:00 Pulse Rate 80 12/18/19 20:00 Respiratory Rate 18 12/18/19 21:43 Blood Pressure 103/62 12/18/19 20:00 O2 Sat by Pulse Oximetry (%) 100 12/18/19 20:25 Constitutional: Yes: No Distress Eyes: Yes: Conjunctiva Clear Cardiovascular: Yes: Regular Rate and Rhythm, S1, S2 Respiratory: Yes: CTA Bilaterally, Mechanically Ventilated Gastrointestinal: Yes: Normal Bowel Sounds, Soft Edema: Yes Labs: CBC, BMP 12/18/19 05:00 12/18/19 05:00 INR, PTT INR 1.29 (0.83-1.09) H 12/15/19 11:01 Assessment/Plan + BLOOD C/S MSSA PROBABLE SKIN SOURCE ACUTE RESP FAILURE PNEUMOMIA + SPUTUM C/S MEROPENEM AZOTEMIA PLANTAR ULCER HEALED BULOUS PEMPHIGOID CEFAZOLIN/ MEROPENEM ADJUSTED FOR RENAL FAILURE REPEAT BC NO GROWTH ECHO NO VEGETATIONS VENTILATORY/ HEMODYNAMIC SUPPORT PROGNOSIS POOR
[2019-12-19] MEDS ORDERED: MEROPENEM 500 MG VIAL (RESTRICTED TO ID) IVPB ONE ×3 (02:52→21:30)
[2019-12-19] MEDS ORDERED: DEXTROSE 5%-WATER 100 ML IVPB ONE ×3 (02:53→21:31)
[2019-12-19] MEDS: INSULIN SLIDING SCALE (NOVOLOG) 1 VIAL SQ SCH ×5 (08:25→21:27)
[2019-12-19] MEDS: TAMSULOSIN HCL 0.4 MG CAP PO SCH (08:29)
[2019-12-19] MEDS: SEVELAMER CARBONATE 0.8 GM POWDER PACKET PO SCH ×3 (08:29→16:33)
[2019-12-19] MEDS: levETIRAcetam 500 MG/5 ML INJECTION VIAL IVPB SCH ×2 (10:44→21:33)
[2019-12-19] MEDS: LEVOTHYROXINE SODIUM 100 MCG VIAL IVPUSH SCH (10:47)
[2019-12-19] MEDS: PANTOPRAZOLE SODIUM 40 MG VIAL IVPUSH SCH (10:47)
[2019-12-19] MEDS: MYCOPHENOLATE MOFETIL 200 MG/ML SUSPENSION PO SCH ×2 (10:47→21:33)
[2019-12-19] MEDS: CEFAZOLIN 500 MG in DEXTROSE 5%-WATER - 50 ML IVPB SCH ×2 (10:47→21:36)
[2019-12-19] MEDS: APIXABAN 2.5 MG TABLET PO SCH ×2 (10:47→21:33)
[2019-12-19 11:50] LABS: BASO % 0.2 % (0-2.0); EOS % 0.5 % (0-4.5); HEMATOCRIT 23.2 % (35.4-49); HEMOGLOBIN 7.4 GM/dL (11.7-16.9); LYMPH % 6.8 % (8-40); MCH 28.8 pg (25.7-33.7); MCHC 31.8 g/dl (32.0-35.9); MEAN CELL VOLUME 90.4 fl (80-96); MEAN PLT VOLUME 8.8 fl (7.5-11.1); MONO % 7.3 % (3.8-10.2); NEUT % 85.2 % (42.8-82.8); PLATELET COUNT 164 K/MM3 (134-434); RBC 2.57 M/mm3 (4.00-5.60); RDW 16.5 % (11.9-15.9); WHITE BLOOD COUNT 8.9 K/mm3 (4.0-10.0)
--- NOTE | 2019-12-19 12:10 | PN ---
Progress Note, Physician - Current Medication List Current Medications: Active Medications Albuterol/Ipratropium (Duoneb -) 1 amp NEB Q4H PRN PRN Reason: SHORT OF BREATH/WHEEZING Last Admin: 12/08/19 02:38 Dose: 1 amp Documented by: Apixaban (Eliquis -) 2.5 mg PO BID [facility] Last Admin: 12/19/19 10:47 Dose: 2.5 mg Documented by: Artificial Tears (Artificial Tears) 1 drop OU BID PRN PRN Reason: DRY EYES Last Admin: 12/17/19 10:22 Dose: 1 drop Documented by: Cefazolin Sodium 500 mg/ (Dextrose) 50 mls @ 100 mls/hr IVPB BID [facility] Last Admin: 12/19/19 10:47 Dose: 100 mls/hr Documented by: Meropenem 500 mg/ Dextrose 100 mls @ 200 mls/hr IVPB Q12H [facility] Last Admin: 12/18/19 13:35 Dose: 200 mls/hr Documented by: Fentanyl (Sublimaze Ivpb) 500 mcg in 100 mls @ 21.614 mls/hr IVPB TITR [facility]; Protocol Last Admin: 12/18/19 02:36 Dose: 0.23 mcg/kg/hr, 5 mls/hr Documented by: Propofol (Diprivan -) 1,000,000 mcg in 100 mls @ 3.164 mls/hr IVPB TITR [facility]; Protocol Last Admin: 12/18/19 02:36 Dose: 5 mcg/kg/min, 3.164 mls/hr Documented by: Insulin Aspart (Novolog Vial Sliding Scale -) 1 vial SQ ACHS [facility]; Protocol Last Admin: 12/19/19 08:25 Dose: Not Given Documented by: Levetiracetam (Keppra Injection -) 500 mg IVPB BID [facility] Last Admin: 12/19/19 10:44 Dose: 500 mg Documented by: Levothyroxine Sodium (Synthroid Injection -) 20 mcg IVPUSH DAILY [facility] Last Admin: 12/19/19 10:47 Dose: 20 mcg Documented by: Mycophenolate Mofetil (Cellcept Suspension -) 500 mg PO BID [facility] Last Admin: 12/19/19 10:47 Dose: 500 mg Documented by: Pantoprazole Sodium (Protonix Iv) 40 mg IVPUSH DAILY [facility] Last Admin: 12/19/19 10:47 Dose: 40 mg Documented by: Rosuvastatin Calcium (Crestor -) 10 mg PO HS [facility] Last Admin: 12/18/19 21:43 Dose: 10 mg Documented by: Scopolamine HBr (Transderm-Scop -) 1 patch TD Q72H [facility] Last Admin: 12/17/19 22:35 Dose: 1 patch Documented by: Sevelamer Carbonate (Renvela Powder Packet -) 0.8 gm PO TIDCM [facility] Last Admin: 12/19/19 08:29 Dose: 0.8 gm Documented by: Silver Sulfadiazine (Silvadene -) 1 applic TP BID [facility] Last Admin: 12/18/19 21:43 Dose: 1 applic Documented by: Tamsulosin HCl (Flomax -) 0.4 mg PO 0830 [facility] Last Admin: 12/19/19 08:29 Dose: 0.4 mg Documented by: - Objective Vital Signs: Vital Signs Temperature 99 F 12/18/19 14:00 Pulse Rate 89 12/19/19 10:00 Respiratory Rate 18 12/19/19 10:00 Blood Pressure 110/62 12/19/19 10:00 O2 Sat by Pulse Oximetry (%) 98 12/19/19 10:00 Cardiovascular: Yes: S1, S2 Respiratory: Yes: Mechanically Ventilated Gastrointestinal: Yes: Normal Bowel Sounds, Soft Labs: CBC, BMP 12/19/19 10:00 INR, PTT INR 1.29 (0.83-1.09) H 12/15/19 11:01 Problem List - Problems (1) Bullous pemphigoid Code(s): L12.0 - BULLOUS PEMPHIGOID (2) Caregiver unable to cope Code(s): Z74.8 - OTHER PROBLEMS RELATED TO CARE PROVIDER DEPENDENCY (3) Afib Code(s): I48.91 - UNSPECIFIED ATRIAL FIBRILLATION (4) Anemia Code(s): D64.9 - ANEMIA, UNSPECIFIED Qualifiers: Iron deficiency anemia type: chronic blood loss (5) CHF (congestive heart failure) Code(s): I50.9 - HEART FAILURE, UNSPECIFIED (6) Diabetes mellitus Code(s): E11.9 - TYPE 2 DIABETES MELLITUS WITHOUT COMPLICATIONS (7) Hypothyroidism Code(s): E03.9 - HYPOTHYROIDISM, UNSPECIFIED (8) Altered mental state Code(s): R41.82 - ALTERED MENTAL STATUS, UNSPECIFIED Assessment/Plan - Problems (1) Acute respiratory failure Assessment/Plan: -Mech vent -Pulmonary consult -IV Cefazolin + meropenem -Enteral feeds -Bronchodilators Problems reviewed: Yes Code(s): J96.00 - ACUTE RESPIRATORY FAILURE, UNSP W HYPOXIA OR HYPERCAPNIA (2) Bullous pemphigoid Assessment/Plan: -On cellcept -Silvadene top Problems reviewed: Yes Code(s): L12.0 - BULLOUS PEMPHIGOID (3) Acute on chronic renal insufficiency Assessment/Plan: -Nephrology on board -monitor daily labs Problems reviewed: Yes Code(s): N28.9 - DISORDER OF KIDNEY AND URETER, UNSPECIFIED; N18.9 - CHRONIC KIDNEY DISEASE, UNSPECIFIED (4) Pneumonia Assessment/Plan: -Likely aspiration -CXR reviewed -Repeat COVID 19 PCR negative -IV abx -ID consult -Lactic acidosis noted Problems reviewed: Yes Code(s): J18.9 - PNEUMONIA, UNSPECIFIED ORGANISM (5) Afib Assessment/Plan: -Chronic, rate controlled -D/C heparin -Eliquis 2.5 mg po bid for age>80, Cr>1.5 -Transfuse if needed Problems reviewed: Yes Code(s): I48.91 - UNSPECIFIED ATRIAL FIBRILLATION (6) Anemia Assessment/Plan: -Chronic -workup last admission was negative -hematology consult -Transfuse only if hg<7.0 to avoid fluid overload. Problems reviewed: Yes Code(s): D64.9 - ANEMIA, UNSPECIFIED (7) Bacteremia Assessment/Plan: -Repeat BC preliminary negative -IV abx -ID on board Problems reviewed: Yes Code(s): R78.81 - BACTEREMIA Ongoing discussion with family regarding comfort care. GI PPX Pt tolerating enteral feeds
--- NOTE | 2019-12-19 12:16 | PN ---
Progress Note, Physician History of Present Illness: INTUBATED IN ICU AFEBRILE WBC WNL BC MSSA (12/06) BC (11/17) NO GROWTH - Current Medication List Current Medications: Active Medications Albuterol/Ipratropium (Duoneb -) 1 amp NEB Q4H PRN PRN Reason: SHORT OF BREATH/WHEEZING Last Admin: 12/08/19 02:38 Dose: 1 amp Documented by: Apixaban (Eliquis -) 2.5 mg PO BID [facility] Last Admin: 12/19/19 10:47 Dose: 2.5 mg Documented by: Artificial Tears (Artificial Tears) 1 drop OU BID PRN PRN Reason: DRY EYES Last Admin: 12/17/19 10:22 Dose: 1 drop Documented by: Cefazolin Sodium 500 mg/ (Dextrose) 50 mls @ 100 mls/hr IVPB BID [facility] Last Admin: 12/19/19 10:47 Dose: 100 mls/hr Documented by: Meropenem 500 mg/ Dextrose 100 mls @ 200 mls/hr IVPB Q12H [facility] Last Admin: 12/18/19 13:35 Dose: 200 mls/hr Documented by: Fentanyl (Sublimaze Ivpb) 500 mcg in 100 mls @ 21.614 mls/hr IVPB TITR [facility]; Protocol Last Admin: 12/18/19 02:36 Dose: 0.23 mcg/kg/hr, 5 mls/hr Documented by: Propofol (Diprivan -) 1,000,000 mcg in 100 mls @ 3.164 mls/hr IVPB TITR [facility]; Protocol Last Admin: 12/18/19 02:36 Dose: 5 mcg/kg/min, 3.164 mls/hr Documented by: Insulin Aspart (Novolog Vial Sliding Scale -) 1 vial SQ ACHS [facility]; Protocol Last Admin: 12/19/19 08:25 Dose: Not Given Documented by: Levetiracetam (Keppra Injection -) 500 mg IVPB BID [facility] Last Admin: 12/19/19 10:44 Dose: 500 mg Documented by: Levothyroxine Sodium (Synthroid Injection -) 20 mcg IVPUSH DAILY [facility] Last Admin: 12/19/19 10:47 Dose: 20 mcg Documented by: Mycophenolate Mofetil (Cellcept Suspension -) 500 mg PO BID [facility] Last Admin: 12/19/19 10:47 Dose: 500 mg Documented by: Pantoprazole Sodium (Protonix Iv) 40 mg IVPUSH DAILY [facility] Last Admin: 12/19/19 10:47 Dose: 40 mg Documented by: Rosuvastatin Calcium (Crestor -) 10 mg PO HS [facility] Last Admin: 12/18/19 21:43 Dose: 10 mg Documented by: Scopolamine HBr (Transderm-Scop -) 1 patch TD Q72H [facility] Last Admin: 12/17/19 22:35 Dose: 1 patch Documented by: Sevelamer Carbonate (Renvela Powder Packet -) 0.8 gm PO TIDCM [facility] Last Admin: 12/19/19 08:29 Dose: 0.8 gm Documented by: Silver Sulfadiazine (Silvadene -) 1 applic TP BID [facility] Last Admin: 12/18/19 21:43 Dose: 1 applic Documented by: Tamsulosin HCl (Flomax -) 0.4 mg PO 0830 [facility] Last Admin: 12/19/19 08:29 Dose: 0.4 mg Documented by: - Objective Vital Signs: Vital Signs Temperature 99 F 12/18/19 14:00 Pulse Rate 89 12/19/19 10:00 Respiratory Rate 18 12/19/19 10:00 Blood Pressure 110/62 12/19/19 10:00 O2 Sat by Pulse Oximetry (%) 98 12/19/19 10:00 Constitutional: Yes: No Distress Eyes: Yes: Conjunctiva Clear Cardiovascular: Yes: Regular Rate and Rhythm, S1, S2 Respiratory: Yes: Mechanically Ventilated Gastrointestinal: Yes: Normal Bowel Sounds, Soft Edema: Yes Labs: CBC, BMP 12/19/19 10:00 INR, PTT INR 1.29 (0.83-1.09) H 12/15/19 11:01 Assessment/Plan + BLOOD C/S MSSA PROBABLE SKIN SOURCE ACUTE RESP FAILURE PNEUMOMIA + SPUTUM C/S MEROPENEM AZOTEMIA PLANTAR ULCER HEALED BULOUS PEMPHIGOID CEFAZOLIN/ MEROPENEM ADJUSTED FOR RENAL FAILURE REPEAT BC NO GROWTH ECHO NO VEGETATIONS VENTILATORY/ HEMODYNAMIC SUPPORT PROGNOSIS POOR
[2019-12-19 12:22] LABS: CALCIUM 7.9 mg/dL (8.5-10.1); CREATININE 3.3 mg/dL (0.55-1.3); MAGNESIUM 2.1 mg/dL (1.8-2.4); PHOSPHOROUS 4.8 mg/dL (2.5-4.9); POTASSIUM 4.4 mmol/L (3.5-5.1)
[2019-12-19] MEDS: MEROPENEM 500 MG in DEXTROSE 5%-WATER 100 ML IVPB SCH ×2 (12:31→21:01)
[2019-12-19 12:33] LABS: BLOOD UREA NITROGEN 140.9 mg/dL (7-18)
[2019-12-19] MEDS ORDERED: ACETAMINOPHEN 1000 MG/100 ML VIAL (NON FORMULARY) IVPB ONE (12:51)
--- NOTE | 2019-12-19 12:53 | PN ---
Teaching Attending Note Name of Resident: Edgardo Washburn ATTENDING PHYSICIAN STATEMENT I saw and evaluated the patient. I reviewed the resident's note and discussed the case with the resident. I agree with the resident's findings and plan as documented. SUBJECTIVE: Patient seen and examined in the ICU. Remains intubated, sedated. Remains off pressors for hemodynamic support. OBJECTIVE: Intake & Output 12/16/19 12/17/19 12/18/19 12/19/19 23:59 23:59 23:59 23:59 Intake Total 2033 2800 1493 484 Output Total 4600 1700 700 600 Balance -2567 1100 793 -116 Weight 238 lb 4 oz 232 lb 8 oz 229 lb 8.019 oz 233 lb 14.567 oz Last Vital Signs Temp Pulse Resp BP Pulse Ox 99 F 89 18 110/62 100 12/18/19 14:00 12/19/19 10:00 12/19/19 12:11 12/19/19 10:00 12/19/19 12:11 Active Medications Acetaminophen (Ofirmev Injection -) 1,000 mg IVPB ONCE ONE Stop: 12/19/19 12:52 Albuterol/Ipratropium (Duoneb -) 1 amp NEB Q4H PRN PRN Reason: SHORT OF BREATH/WHEEZING Last Admin: 12/08/19 02:38 Dose: 1 amp Documented by: Apixaban (Eliquis -) 2.5 mg PO BID [facility] Last Admin: 12/19/19 10:47 Dose: 2.5 mg Documented by: Artificial Tears (Artificial Tears) 1 drop OU BID PRN PRN Reason: DRY EYES Last Admin: 12/17/19 10:22 Dose: 1 drop Documented by: Cefazolin Sodium 500 mg/ (Dextrose) 50 mls @ 100 mls/hr IVPB BID [facility] Last Admin: 12/19/19 10:47 Dose: 100 mls/hr Documented by: Meropenem 500 mg/ Dextrose 100 mls @ 200 mls/hr IVPB Q12H [facility] Last Admin: 12/19/19 12:31 Dose: 200 mls/hr Documented by: Fentanyl (Sublimaze Ivpb) 500 mcg in 100 mls @ 21.614 mls/hr IVPB TITR [facility]; Protocol Last Admin: 12/18/19 02:36 Dose: 0.23 mcg/kg/hr, 5 mls/hr Documented by: Propofol (Diprivan -) 1,000,000 mcg in 100 mls @ 3.164 mls/hr IVPB TITR [facility]; Protocol Last Admin: 12/18/19 02:36 Dose: 5 mcg/kg/min, 3.164 mls/hr Documented by: Insulin Aspart (Novolog Vial Sliding Scale -) 1 vial SQ ACHS [facility]; Protocol Last Admin: 12/19/19 12:00 Dose: Not Given Documented by: Levetiracetam (Keppra Injection -) 500 mg IVPB BID [facility] Last Admin: 12/19/19 10:44 Dose: 500 mg Documented by: Levothyroxine Sodium (Synthroid Injection -) 20 mcg IVPUSH DAILY [facility] Last Admin: 12/19/19 10:47 Dose: 20 mcg Documented by: Mycophenolate Mofetil (Cellcept Suspension -) 500 mg PO BID [facility] Last Admin: 12/19/19 10:47 Dose: 500 mg Documented by: Pantoprazole Sodium (Protonix Iv) 40 mg IVPUSH DAILY [facility] Last Admin: 12/19/19 10:47 Dose: 40 mg Documented by: Rosuvastatin Calcium (Crestor -) 10 mg PO HS [facility] Last Admin: 12/18/19 21:43 Dose: 10 mg Documented by: Scopolamine HBr (Transderm-Scop -) 1 patch TD Q72H [facility] Last Admin: 12/17/19 22:35 Dose: 1 patch Documented by: Sevelamer Carbonate (Renvela Powder Packet -) 0.8 gm PO TIDCM [facility] Last Admin: 12/19/19 12:31 Dose: 0.8 gm Documented by: Silver Sulfadiazine (Silvadene -) 1 applic TP BID [facility] Last Admin: 12/18/19 21:43 Dose: 1 applic Documented by: Tamsulosin HCl (Flomax -) 0.4 mg PO 0830 [facility] Last Admin: 12/19/19 08:29 Dose: 0.4 mg Documented by: Gen: intubated, sedated Heart: RRR Lung: decreased breath sounds at the bases Abd: softly distended, nontender Ext: no edema, multiple ulcers Laboratory Results - last 24 hr 12/18/19 12/18/19 12/19/19 16:34 22:15 05:53 WBC RBC Hgb Hct MCV MCH MCHC RDW Plt Count MPV Absolute Neuts (auto) Neutrophils % Lymphocytes % Monocytes % Eosinophils % Basophils % Nucleated RBC % Sodium Potassium Chloride Carbon Dioxide Anion Gap BUN Creatinine Est GFR (CKD-EPI)AfAm Est GFR (CKD-EPI)NonAf POC Glucometer 115 115 99 Random Glucose Calcium Phosphorus Magnesium 12/19/19 12/19/19 10:00 10:00 WBC 8.9 RBC 2.57 L Hgb 7.4 L Hct 23.2 L MCV 90.4 MCH 28.8 MCHC 31.8 L RDW 16.5 H Plt Count 164 D MPV 8.8 Absolute Neuts (auto) 7.6 Neutrophils % 85.2 H Lymphocytes % 6.8 L D Monocytes % 7.3 Eosinophils % 0.5 Basophils % 0.2 Nucleated RBC % 0 Sodium 144 Potassium 4.4 Chloride 105 Carbon Dioxide 27 Anion Gap 12 BUN 140.9 H* Creatinine 3.3 H Est GFR (CKD-EPI)AfAm 19.23 Est GFR (CKD-EPI)NonAf 16.59 POC Glucometer Random Glucose 143 H Calcium 7.9 L Phosphorus 4.8 Magnesium 2.1 Problem List - Problems (1) Bullous pemphigoid Code(s): L12.0 - BULLOUS PEMPHIGOID (2) Generalized weakness Code(s): R53.1 - WEAKNESS (3) Unable to ambulate Code(s): R26.2 - DIFFICULTY IN WALKING, NOT ELSEWHERE CLASSIFIED (4) Blisters of multiple sites Code(s): R23.8 - OTHER SKIN CHANGES (5) Abnormal liver enzymes Code(s): R74.8 - ABNORMAL LEVELS OF OTHER SERUM ENZYMES (6) Wound of foot Code(s): S91.309A - UNSPECIFIED OPEN WOUND, UNSPECIFIED FOOT, INITIAL ENCOUNTER (7) Afib Code(s): I48.91 - UNSPECIFIED ATRIAL FIBRILLATION (8) Anemia Code(s): D64.9 - ANEMIA, UNSPECIFIED Qualifiers: Qualified Code(s): D50.0 - Iron deficiency anemia secondary to blood loss (chronic) (9) BPH (benign prostatic hyperplasia) Code(s): N40.0 - BENIGN PROSTATIC HYPERPLASIA WITHOUT LOWER URINRY TRACT SYMP (10) CAD (coronary artery disease) Code(s): I25.10 - ATHSCL HEART DISEASE OF [place] CORONARY ARTERY W/O ANG PCTRS (11) CHF (congestive heart failure) Code(s): I50.9 - HEART FAILURE, UNSPECIFIED (12) CKD (chronic kidney disease) Code(s): N18.9 - CHRONIC KIDNEY DISEASE, UNSPECIFIED (13) Diabetes mellitus Code(s): E11.9 - TYPE 2 DIABETES MELLITUS WITHOUT COMPLICATIONS (14) Diastolic CHF Code(s): I50.30 - UNSPECIFIED DIASTOLIC (CONGESTIVE) HEART FAILURE (15) Gastritis Code(s): K29.70 - GASTRITIS, UNSPECIFIED, WITHOUT BLEEDING (16) HTN (hypertension) Code(s): I10 - ESSENTIAL (PRIMARY) HYPERTENSION (17) History of colon cancer Code(s): Z85.038 - PERSONAL HISTORY OF MALIGNANT NEOPLASM OF LARGE INTESTINE (18) History of duodenal ulcer Code(s): Z87.19 - PERSONAL HISTORY OF OTHER DISEASES OF THE DIGESTIVE SYSTEM (19) Hyperlipidemia Code(s): E78.5 - HYPERLIPIDEMIA, UNSPECIFIED (20) Hypothyroid Code(s): E03.9 - HYPOTHYROIDISM, UNSPECIFIED (21) Paroxysmal atrial fibrillation Code(s): I48.0 - PAROXYSMAL ATRIAL FIBRILLATION (22) Peripheral arterial disease Code(s): I73.9 - PERIPHERAL VASCULAR DISEASE, UNSPECIFIED (23) Peripheral vascular disease Code(s): I73.9 - PERIPHERAL VASCULAR DISEASE, UNSPECIFIED (24) Pulmonary hypertension Code(s): I27.2 - OTHER SECONDARY PULMONARY HYPERTENSION * DO NOT USE * (25) Seizure Code(s): R56.9 - UNSPECIFIED CONVULSIONS (26) Seizure disorder Code(s): G40.909 - EPILEPSY, UNSP, NOT INTRACTABLE, WITHOUT STATUS EPILEPTICUS ASSESSMENT AND PLAN: s/p Cardiopulmonary Arrest Acute Hypoxic and Hypercapneic Respiratory Failure Likely Aspiration Pneumonia Septic Shock Acute on Chronic Renal Failure Lactic Acidosis Bullous Pemphigoid CAD LV Diastolic Dysfunction Atrial Fibrillation Seizure Disorder h/o CVA Hypothyroidism Anemia Thrombocytopenia (?) Uremia - continue antibiotics - Normal transfusion thresholds - monitor urine output, creatinine - rate control - Sedation vacation to assess mental status - continue volume assist control - enteral feeds - DVT/GI prophylaxis - ICU monitoring Family for GOC : Ideally compassionate extubation Dr Contreras Critical care time spent in reviewing chart, evaluating patient and formulating plan 35 min Problem List - Problems (1) Bullous pemphigoid Code(s): L12.0 - BULLOUS PEMPHIGOID (2) Generalized weakness Code(s): R53.1 - WEAKNESS (3) Unable to ambulate Code(s): R26.2 - DIFFICULTY IN WALKING, NOT ELSEWHERE CLASSIFIED (4) Blisters of multiple sites Code(s): R23.8 - OTHER SKIN CHANGES (5) Abnormal liver enzymes Code(s): R74.8 - ABNORMAL LEVELS OF OTHER SERUM ENZYMES (6) Wound of foot Code(s): S91.309A - UNSPECIFIED OPEN WOUND, UNSPECIFIED FOOT, INITIAL ENCOUNTER (7) Afib Code(s): I48.91 - UNSPECIFIED ATRIAL FIBRILLATION (8) Anemia Code(s): D64.9 - ANEMIA, UNSPECIFIED Qualifiers: Iron deficiency anemia type: chronic blood loss (9) BPH (benign prostatic hyperplasia) Code(s): N40.0 - BENIGN PROSTATIC HYPERPLASIA WITHOUT LOWER URINRY TRACT SYMP (10) CAD (coronary artery disease) Code(s): I25.10 - ATHSCL HEART DISEASE OF [place] CORONARY ARTERY W/O ANG PCTRS (11) CHF (congestive heart failure) Code(s): I50.9 - HEART FAILURE, UNSPECIFIED (12) CKD (chronic kidney disease) Code(s): N18.9 - CHRONIC KIDNEY DISEASE, UNSPECIFIED (13) Diabetes mellitus Code(s): E11.9 - TYPE 2 DIABETES MELLITUS WITHOUT COMPLICATIONS (14) Diastolic CHF Code(s): I50.30 - UNSPECIFIED DIASTOLIC (CONGESTIVE) HEART FAILURE (15) Gastritis Code(s): K29.70 - GASTRITIS, UNSPECIFIED, WITHOUT BLEEDING (16) HTN (hypertension) Code(s): I10 - ESSENTIAL (PRIMARY) HYPERTENSION (17) History of colon cancer Code(s): Z85.038 - PERSONAL HISTORY OF MALIGNANT NEOPLASM OF LARGE INTESTINE (18) History of duodenal ulcer Code(s): Z87.19 - PERSONAL HISTORY OF OTHER DISEASES OF THE DIGESTIVE SYSTEM (19) Hyperlipidemia Code(s): E78.5 - HYPERLIPIDEMIA, UNSPECIFIED (20) Hypothyroid Code(s): E03.9 - HYPOTHYROIDISM, UNSPECIFIED (21) Paroxysmal atrial fibrillation Code(s): I48.0 - PAROXYSMAL ATRIAL FIBRILLATION (22) Peripheral arterial disease Code(s): I73.9 - PERIPHERAL VASCULAR DISEASE, UNSPECIFIED (23) Peripheral vascular disease Code(s): I73.9 - PERIPHERAL VASCULAR DISEASE, UNSPECIFIED (24) Pulmonary hypertension Code(s): I27.2 - OTHER SECONDARY PULMONARY HYPERTENSION * DO NOT USE * (25) Seizure Code(s): R56.9 - UNSPECIFIED CONVULSIONS (26) Seizure disorder Code(s): G40.909 - EPILEPSY, UNSP, NOT INTRACTABLE, WITHOUT STATUS EPILEPTICUS
--- NOTE | 2019-12-19 14:22 | PN ---
Progress Note, Physician History of Present Illness: Pt seen and examined at bedside. Sedation was held. He is opening his eyes and moving extremities. - Current Medication List Current Medications: Active Medications Albuterol/Ipratropium (Duoneb -) 1 amp NEB Q4H PRN PRN Reason: SHORT OF BREATH/WHEEZING Last Admin: 12/08/19 02:38 Dose: 1 amp Documented by: Apixaban (Eliquis -) 2.5 mg PO BID [facility] Last Admin: 12/19/19 10:47 Dose: 2.5 mg Documented by: Artificial Tears (Artificial Tears) 1 drop OU BID PRN PRN Reason: DRY EYES Last Admin: 12/17/19 10:22 Dose: 1 drop Documented by: Cefazolin Sodium 500 mg/ (Dextrose) 50 mls @ 100 mls/hr IVPB BID [facility] Last Admin: 12/19/19 10:47 Dose: 100 mls/hr Documented by: Meropenem 500 mg/ Dextrose 100 mls @ 200 mls/hr IVPB Q12H [facility] Last Admin: 12/19/19 12:31 Dose: 200 mls/hr Documented by: Fentanyl (Sublimaze Ivpb) 500 mcg in 100 mls @ 21.614 mls/hr IVPB TITR [facility]; Protocol Last Admin: 12/18/19 02:36 Dose: 0.23 mcg/kg/hr, 5 mls/hr Documented by: Propofol (Diprivan -) 1,000,000 mcg in 100 mls @ 3.164 mls/hr IVPB TITR [facility]; Pr otocol Last Admin: 12/18/19 02:36 Dose: 5 mcg/kg/min, 3.164 mls/hr Documented by: Insulin Aspart (Novolog Vial Sliding Scale -) 1 vial SQ ACHS [facility]; Protocol Last Admin: 12/19/19 12:00 Dose: Not Given Documented by: Levetiracetam (Keppra Injection -) 500 mg IVPB BID [facility] Last Admin: 12/19/19 10:44 Dose: 500 mg Documented by: Levothyroxine Sodium (Synthroid Injection -) 20 mcg IVPUSH DAILY [facility] Last Admin: 12/19/19 10:47 Dose: 20 mcg Documented by: Mycophenolate Mofetil (Cellcept Suspension -) 500 mg PO BID [facility] Last Admin: 12/19/19 10:47 Dose: 500 mg Documented by: Pantoprazole Sodium (Protonix Iv) 40 mg IVPUSH DAILY [facility] Last Admin: 12/19/19 10:47 Dose: 40 mg Documented by: Rosuvastatin Calcium (Crestor -) 10 mg PO HS [facility] Last Admin: 12/18/19 21:43 Dose: 10 mg Documented by: Scopolamine HBr (Transderm-Scop -) 1 patch TD Q72H [facility] Last Admin: 12/17/19 22:35 Dose: 1 patch Documented by: Sevelamer Carbonate (Renvela Powder Packet -) 0.8 gm PO TIDCM [facility] Last Admin: 12/19/19 12:31 Dose: 0.8 gm Documented by: Silver Sulfadiazine (Silvadene -) 1 applic TP BID [facility] Last Admin: 12/18/19 21:43 Dose: 1 applic Documented by: Tamsulosin HCl (Flomax -) 0.4 mg PO 0830 [facility] Last Admin: 12/19/19 08:29 Dose: 0.4 mg Documented by: - Objective Vital Signs: Vital Signs Temperature 99 F 12/18/19 14:00 Pulse Rate 89 12/19/19 10:00 Respiratory Rate 18 12/19/19 12:11 Blood Pressure 110/62 12/19/19 10:00 O2 Sat by Pulse Oximetry (%) 100 12/19/19 12:11 Constitutional: Yes: Calm Eyes: Yes: Conjunctiva Clear HENT: Yes: Atraumatic Neck: Yes: Supple Cardiovascular: Yes: S1, S2 Respiratory: Yes: Mechanically Ventilated Gastrointestinal: Yes: Soft Genitourinary: Yes: [place] Present Musculoskeletal: Yes: Muscle Weakness Edema: Yes Edema: LLE: Trace, RLE: Trace Integumentary: Yes: Other (bullous pemphigoid) Neurological: Yes: Lethargy Labs: CBC, BMP 12/19/19 10:00 12/19/19 10:00 INR, PTT INR 1.29 (0.83-1.09) H 12/15/19 11:01 Problem List - Problems (1) Acute respiratory failure Code(s): J96.00 - ACUTE RESPIRATORY FAILURE, UNSP W HYPOXIA OR HYPERCAPNIA (2) Bullous pemphigoid Code(s): L12.0 - BULLOUS PEMPHIGOID Assessment/Plan Current Medications Generic Name Dose Route Start Last Admin Trade Name Freq PRN Reason Stop Dose Admin Albuterol/Ipratropium 1 amp 12/07/19 13:25 12/08/19 02:38 Duoneb - NEB 1 amp Q4H PRN Administration SHORT OF BREATH/WHEEZING Apixaban 2.5 mg 12/10/19 22:00 12/19/19 10:47 Eliquis - PO 2.5 mg BID [facility] Administration Artificial Tears 1 drop 12/15/19 07:31 12/17/19 10:22 Artificial Tears OU 1 drop BID PRN Administration DRY EYES Cefazolin Sodium 500 mg/ 50 mls @ 100 mls/hr 12/12/19 12:45 12/19/19 10:47 Dextrose IVPB 100 mls/hr BID [facility] Administration Meropenem 500 mg/ Dextrose 100 mls @ 200 mls/hr 12/12/19 12:45 12/19/19 12:31 IVPB 200 mls/hr Q12H [facility] Administration Fentanyl 500 mcg in 100 mls @ 21.614 mls/hr 12/17/19 01:15 12/18/19 02:36 Sublimaze Ivpb IVPB 0.23 mcg/kg/hr TITR [facility] 5 mls/hr Administration Protocol 1 MCG/KG/HR Propofol 1,000,000 mcg in 100 mls @ 3.164 mls/hr 12/18/19 02:15 12/18/19 02:36 Diprivan - IVPB 5 mcg/kg/min TITR [facility] 3.164 mls/hr Administration Protocol 5 MCG/KG/MIN Insulin Aspart 1 vial 12/10/19 07:00 12/19/19 12:00 Novolog Vial Sliding Scale - SQ Not Given ACHS [facility] Protocol Levetiracetam 500 mg 12/09/19 10:00 12/19/19 10:44 Keppra Injection - IVPB 500 mg BID [facility] Administration Levothyroxine Sodium 20 mcg 12/09/19 10:00 12/19/19 10:47 Synthroid Injection - IVPUSH 20 mcg DAILY [facility] Administration Mycophenolate Mofetil 500 mg 12/10/19 22:00 12/19/19 10:47 Cellcept Suspension - PO 500 mg BID [facility] Administration Pantoprazole Sodium 40 mg 12/09/19 10:00 12/19/19 10:47 Protonix Iv IVPUSH 40 mg DAILY [facility] Administration Rosuvastatin Calcium 10 mg 12/07/19 22:00 12/18/19 21:43 Crestor - PO 10 mg HS [facility] Administration Scopolamine HBr 1 patch 12/17/19 22:00 12/17/19 22:35 Transderm-Scop - TD 1 patch Q72H [facility] Administration Sevelamer Carbonate 0.8 gm 12/16/19 17:30 12/19/19 12:31 Renvela Powder Packet - PO 0.8 gm TIDCM [facility] Administration Silver Sulfadiazine 1 applic 12/15/19 12:45 12/18/19 21:43 Silvadene - TP 1 applic BID [facility] Administration Tamsulosin HCl 0.4 mg 12/08/19 08:30 12/19/19 08:29 Flomax - PO 0.4 mg 0830 [facility] Administration Impression 1. CKD 2. CHF 3. BPH 4. a. fib 5. CAD 6. epilepsy 7. proteinuria 8. anemia 9. foot ulcer 10. abd wall cellulitis 11. bullous pemphigoid 12. LETITIA 13. hyperkalemia 14. cardiac arrest 15. resp failure on vent 16. r/o aspiration Plan - stenciling machine tender improving - cont to monitor - lasix prn for edema - avoid nephrotoxins - vent support - cont cellcept for bullous pemphigoid - cont vent support - weaning per pulm - daily sedation vacation - maintain map 65 - monitor urine output - letitia on ckd likely atn post cardiac arrest
[2019-12-19] MEDS ORDERED: PT OWN MED DRAWER 7, Y5N ONE ×2 (14:29→21:35)
[2019-12-19] MEDS: SILVER SULFADIAZINE 1% TOP CREAM 50 GM JAR TP SCH ×2 (14:30→21:33)
--- NOTE | 2019-12-19 16:47 | CONSULT ---
Consult Consult Specialty:: Palliative Care Referred by:: Gina Truong Reason for Consultation:: Goals of care - History of Present Illness Chief Complaint: Acute Respiratory Failure History of Present Illness: Pt is an 79 y/o male with chronic anemia, diastolic CHF (EF 50-55% 12/05), a-fib (on Eliquis), CAD s/p PCI, HTN, HLD, CVA (right side residual weakness), seizure disorder, CKD stage 4, hypothyroidism, bullous pemphigoid (started 03/05), colon cancer s/p rt hemicolectomy, and right foot ulcer who had prolonged hospitalization 11/12- 12/02 for infected rt foot ulcer and anemia - STR recommended but patient and family opted for [facility]. He was discharged and came back the same day for generalized weakness. At baseline he uses electric w/c but able to transfer in and out of it but unable to get out of the car this time with assistance from his . He recently was discharged from a nursing facility for rehab before being admitted for 3 weeks at [facility]. He was previously wheelchair-bound but able to do some ADLs independently. He agreed for STR rehab and dc was planned when patient had a rapid response on 12/08, aspiration suspected. He has been intubated since then. He was treated with pressors, a/bs- now off pressors. He has remained intubated and on mechanical ventilator since. He is on enteral feeds. Palliative care consult requested to define goals of care. - History Source History Provided By: Medical Record Limitations to Obtaining History: Intubated - Past Medical History TRANSPORTATION DISPATCHER: Yes: CVA, Seizure, Other (Pituitary adenoma resection) Cardio/Vascular: Yes: AFIB, CAD, CHF (echo EF 55% large RV with TR), HTN, Hyperlipdemia, Murmur (holosystolic), Pulmonary Hypertension (severe), Other (perip[heral vascular disease) Gastrointestinal: Yes: Cancer (Laparoscopic right colon cancer resection), GI Bleed (01/14/18 ulcer in 3rd portion duodenum was cauterized), Other (Colon cancer) Hepatobiliary: Yes: Cholelithiasis, Other (fatty liver) Renal/: Yes: Renal Inusuff (see HPI), BPH Endocrine: Yes: Diabetes Mellitus, Hypothyroidism, Other (pituitary adenoma resection) Dermatology: Yes: Other (? 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 History of Recent Travel: No Home Medications - Allergies Allergies/Adverse Reactions: Allergies Allergy/AdvReac Type Severity Reaction Status Date / Time No Known Allergies Allergy Verified 11/13/19 11:04 - Home Medications Home Medications: Ambulatory Orders Levothyroxine [Synthroid -] 25 mcg PO DAILY 07/15/19 Tamsulosin HCl [Flomax] 0.4 mg PO DAILY 07/15/19 levETIRAcetam [Keppra -] 500 mg PO BID 07/15/19 Cholecalciferol (Vitamin D3) [Vitamin D -] 800 unit PO DAILY tab 08/26/19 Apixaban [Eliquis -] 2.5 mg PO BID #60 tablet 08/31/19 Carvedilol [Coreg -] 25 mg PO BID 11/06/19 Omeprazole 20 mg PO DAILY 11/06/19 Rosuvastatin [Crestor -] 10 mg PO DAILY 11/06/19 Furosemide [Lasix -] 20 mg PO DAILY tablet 12/06/19 Mycophenolate Mofetil [Cellcept -] 500 mg PO BID tablet 12/06/19 predniSONE [Deltasone -] 60 mg PO DAILY tablet 12/06/19 Family Medical History Family History: Unable to Obtain Review of Systems Unable to obtain ROS, reason: intubated Physical Exam Vital Signs: Vital Signs Temperature 99.6 F 12/19/19 14:00 Pulse Rate 80 12/19/19 16:00 Respiratory Rate 20 12/19/19 16:00 Blood Pressure 80/52 L 12/19/19 16:00 O2 Sat by Pulse Oximetry (%) 99 07/03/20 15:51 Constitutional: Yes: Well Nourished Eyes: Yes: Conjunctiva Clear HENT: Yes: Atraumatic, Normocephalic Neck: Yes: Supple Respiratory: Yes: Mechanically Ventilated Neurological: Yes: Unresponsive Labs: CBC, BMP 12/19/19 10:00 12/19/19 10:00 Imaging - Results Chest X-ray: Report Reviewed Cat Scan: Report Reviewed Problem List - Problems (1) Acute respiratory failure Code(s): J96.00 - ACUTE RESPIRATORY FAILURE, UNSP W HYPOXIA OR HYPERCAPNIA (2) Bacteremia Code(s): R78.81 - BACTEREMIA (3) Bullous pemphigoid Code(s): L12.0 - BULLOUS PEMPHIGOID (4) Acute on chronic renal insufficiency Code(s): N28.9 - DISORDER OF KIDNEY AND URETER, UNSPECIFIED; N18.9 - CHRONIC KIDNEY DISEASE, UNSPECIFIED (5) Acute on chronic systolic congestive heart failure Code(s): I50.23 - ACUTE ON CHRONIC SYSTOLIC (CONGESTIVE) HEART FAILURE (6) Afib Code(s): I48.91 - UNSPECIFIED ATRIAL FIBRILLATION (7) CHF (congestive heart failure) Code(s): I50.9 - HEART FAILURE, UNSPECIFIED Assessment/Plan Pt is an 79 y/o male with chronic anemia, diastolic CHF (EF 50-55% 12/05), a-fib (on Eliquis), CAD s/p PCI, HTN, HLD, CVA (right side residual weakness), seizure disorder, CKD stage 4, hypothyroidism, bullous pemphigoid (started 03/05), colon cancer s/p rt hemicolectomy, and right foot ulcer who had prolonged hospitalization 11/12- 12/02 for infected rt foot ulcer and anemia - STR recommended but patient and family opted for [facility] [employer]. He was discharged and came back the same day for generalized weakness. At baseline he uses electric w/c but able to transfer in and out of it but unable to get out of the car this time with assistance from his . He recently was discharged from a nursing facility for rehab before being admitted for 3 weeks at [facility]. He was previously wheelchair-bound but able to do some ADLs independently. He agreed for STR rehab and dc was planned when patient had a rapid response on 12/08, aspiration suspected. He has been intubated since then. He was treated with pressors, a/bs- now off pressors. He has remained intubated and on mechanical ventilator since. He is on enteral feeds. Palliative care consult r equested to define goals of care. Respiratory failure on mechanical ventilator off pressors aspiration pneumonia on t/feeds CHF ac on CKD CAD A Fib Chr anemia seizure disorder prognosis appears to be poor. Patient with multiple comorbidities and poor functional status now s/p cardiac arrest. Have left a message with pt's to discuss goals of care. will follow. [facility] for allowing me to participate in the care of this patient. Please call with questions. Brody Branch MD [phone] Total time for chart review, examination and coordination of care- 50 minutes.
[2019-12-19] MEDS: PROPOFOL 1,000,000 MCG/100 ML VIAL IVPB SCH (21:01)
[2019-12-19] MEDS: FENTANYL NS IVPB 500 MCG/100 ML BAG IVPB SCH (21:01)
[2019-12-19] MEDS: ROSUVASTATIN CA 10 MG TABLET (FP) PO SCH (21:33)
--- NOTE | 2019-12-19 23:12 | PROC ---
Procedure Note Procedure: PROCEDURE NOTE: Internal jugular central line placement under ultrasound guidance PROCEDURE SOLUTIONS SPECIALIST: Edgardo Washburn M.D., PGY3 ATTENDING PHYSICIAN: Dr. Contreras INDICATION: Replace existing right IJ after 7 day life. CONSENT: Consent obtained from initial line placement. PROCEDURE SUMMARY: A time out was performed. My hands were washed immediately prior to the procedure. I wore a surgical cap, mask with protective eyewear, sterile gown and sterile gloves throughout the procedure. The patient was placed in trendelenburg position. The Left chest region was prepped using chlorhexidine scrub and draped in sterile fashion. The medial and lateral heads of the sternocleidomastoid muscle, as well as the carotid pulse were identified. The internal jugular vein was identified using dynamic ultrasound. Anesthesia was achieved using Lidocaine 1 percent without epinephrine. Using real-time out of plane guidance, the introducer needle was inserted into the internal jugular vein under direct ultrasound visualization. Venous blood was withdrawn. The syringe was removed and a guidewire was advanced into the introducer needle. The guidewire was visualized in the internal jugular vein by ultrasound. A small incision was made at the skin surface with a scalpel and the introducer needle was exchanged for a dilator over the guidewire. After appropriate dilation was obtained, the dilator was exchanged over the wire for a triple lumen central venous catheter. The wire was removed and the catheter was sutured in place at 15 cm. A biopatch and a sterile tegaderm were placed over the catheter at the insertion site. At time of procedure completion, all ports aspirated and flushed properly. The patient tolerated the procedure without any hemodynamic compromise. Post-procedure chest x-ray is pending at this time. Estimated blood loss is 5 cc.
--- NOTE | 2019-12-19 23:26 | PN ---
Physical Exam: Overnight Events: No acute events reported. OBJECTIVE: Lines: - R TLC on day 7. Drains: - [place] Supplemental Oxygen: Intubated on Mechanical Ventilation Physical Exams: GENERAL: The patient is sedated. Occasionally coughs. HEAD: Normal with no signs of trauma. NECK: Trachea midline. LUNGS: Mechanically ventilated. Equal chest rise and fall. HEART: Irregularly irregular rate and rhythm ABDOMEN: Soft and nondistended EXTREMITIES: warm, well-perfused NEUROLOGICAL: Withdrawals generally to painful stimuli. SKIN: Warm, dry, numerous pemphigoid lesions. ASSESSMENT / PLAN: 79 y/o male PMH dCHF, afib, CAD s/p PCI, HTN, seizure d/o, CVA with RIGHT sided residual deficit, CKD, hypothyroidism, and bullous pemphigoid. PRISON OFFICER called for unresponsiveness and possibly aspiration PNA. He is now s/p cardiopulmonary arrest (on 12/09/2019) demonstrating PEA x2 (ROSC >1 min for both) in the ICU 2/2 acute hypoxic respiratory failure. # Neuro: seizure d/o, h/o CVA Right side residual deficit - Sedated on Propofol and Fentanyl. Will attempt sedation holiday to assess function. # Cards: afid, dCHF, CAD, HTN, anemia # Pulm ARDS, aspiration PNA Mechanically ventilated. Wean as tolerated. - Will not obtain daily CXR and ABG unless clinically significant change. Recent trend has been stable. # ID - Sputum culture grew pseudomonas. Cefazolin and Meropenem per ID recommendation. # Renal - Slight improvement in LETITIA on CKD - Nephro consulted. Dialysis not recommended at this time given poor prognosis. Suggested PRN Lasix as needed for worsening edema. # Skin - Bullous Pemphigoid on Mycophenolate # FEN - Tube feeds per dietary recommendations. # Prophylaxis: - DVT: Eliquis - GI: Protonix # Code Status / Family Conversation: - Full Code - Dr. Branch of palliative care consulted. Will f/u recommendations. Dispo: Pt to remain in the ICU while mechanically ventilated. Grave prognosis. Edgardo Washburn M.D., PGY3 ICU Service 19 December 2019 Visit type - Emergency Visit Emergency Visit: Yes ED Registration Date: 12/03/19 Care time: The patient presented to the Emergency Department on the above date and was hospitalized for further evaluation of their emergent condition. - New Patient This patient is new to me today: Yes Date on this admission: 12/20/19 - Critical Care Critical Care patient: Yes Total Critical Care Time (in minutes): 50 Critical Care Statement: The care of this patient involved high complexity decision making to prevent further life threatening deterioration of the patient's condition and/or to evaluate & treat vital organ system(s) failure or risk of failure.
[2019-12-20] MEDS: FENTANYL NS IVPB 500 MCG/100 ML BAG IVPB SCH ×3 (02:04→21:17)
[2019-12-20] MEDS: MEROPENEM 500 MG in DEXTROSE 5%-WATER 100 ML IVPB SCH ×2 (02:05→13:28)
[2019-12-20] MEDS: PROPOFOL 1,000,000 MCG/100 ML VIAL IVPB SCH ×3 (06:43→21:18)
[2019-12-20] MEDS: INSULIN SLIDING SCALE (NOVOLOG) 1 VIAL SQ SCH ×4 (06:44→21:10)
[2019-12-20 07:48] LABS: BASO % 0.1 % (0-2.0); EOS % 0.6 % (0-4.5); HEMATOCRIT 19.9 % (35.4-49); LYMPH % 8.5 % (8-40); MCH 28.9 pg (25.7-33.7); MCHC 31.9 g/dl (32.0-35.9); MEAN CELL VOLUME 90.8 fl (80-96); MEAN PLT VOLUME 8.8 fl (7.5-11.1); MONO % 7.4 % (3.8-10.2); NEUT % 83.4 % (42.8-82.8); PLATELET COUNT 185 K/MM3 (134-434); RBC 2.19 M/mm3 (4.00-5.60); RDW 16.7 % (11.9-15.9); WHITE BLOOD COUNT 9.3 K/mm3 (4.0-10.0)
[2019-12-20 08:11] LABS: HEMOGLOBIN 6.3 GM/dL (11.7-16.9)
[2019-12-20 08:17] LABS: ALBUMIN 1.9 g/dl (3.4-5.0); ALK PHOS 61 U/L (45-117); ANION GAP 11 MMOL/L (8-16); BILIRUBIN,TOTAL 0.7 mg/dL (0.2-1); CALCIUM 7.7 mg/dL (8.5-10.1); CHLORIDE 106 mmol/L (98-107); CO2 27 mmol/L (21-32); CREATININE 3.3 mg/dL (0.55-1.3); GLUCOSE,RANDOM 139 mg/dL (74-106); MAGNESIUM 2.1 mg/dL (1.8-2.4); PHOSPHOROUS 4.5 mg/dL (2.5-4.9); POTASSIUM 4.1 mmol/L (3.5-5.1); SGOT/AST 22 U/L (15-37); SGPT/ALT < 6 U/L (13-61); SODIUM 143 mmol/L (136-145); TOT PROT 4.9 g/dl (6.4-8.2)
[2019-12-20] MEDS: SEVELAMER CARBONATE 0.8 GM POWDER PACKET PO SCH ×3 (09:00→17:56)
[2019-12-20] MEDS: TAMSULOSIN HCL 0.4 MG CAP PO SCH (09:00)
[2019-12-20 09:10] LABS: BLOOD UREA NITROGEN 138.6 mg/dL (7-18)
--- NOTE | 2019-12-20 09:22 | PN ---
Progress Note (short form) - Note Progress Note: RENAL Pt seen and examined at bedside has significant amounts of blood in suction canister Last Vital Signs Temp Pulse Resp BP Pulse Ox 99.6 F 68 18 118/57 L 100 12/20/19 08:19 12/20/19 08:19 12/20/19 08:19 12/20/19 08:19 12/20/19 08:19 intubated lungs bilat air entry cvs [id number] abd soft distended ext +edema neuro sedated skin multiple areas of ulceration CBC, BMP 12/20/19 05:30 12/20/19 05:30 Current Medications Generic Name Dose Route Start Last Admin Trade Name Freq PRN Reason Stop Dose Admin Albuterol/Ipratropium 1 amp 12/07/19 13:25 12/08/19 02:38 Duoneb - NEB 1 amp Q4H PRN Administration SHORT OF BREATH/WHEEZING Apixaban 2.5 mg 12/10/19 22:00 12/19/19 21:33 Eliquis - PO 2.5 mg BID MICHAEL Administration Artificial Tears 1 drop 12/15/19 07:31 12/17/19 10:22 Artificial Tears OU 1 drop BID PRN Administration DRY EYES Cefazolin Sodium 500 mg/ 50 mls @ 100 mls/hr 12/12/19 12:45 12/19/19 21:36 Dextrose IVPB 100 mls/hr BID MICHAEL Administration Meropenem 500 mg/ Dextrose 100 mls @ 200 mls/hr 12/12/19 12:45 12/20/19 02:05 IVPB 200 mls/hr Q12H MICHAEL Administration Fentanyl 500 mcg in 100 mls @ 21.614 mls/hr 12/17/19 01:15 12/20/19 02:04 Sublimaze Ivpb IVPB Not Given TITR MICHAEL Protocol 1 MCG/KG/HR Propofol 1,000,000 mcg in 100 mls @ 3.164 mls/hr 12/18/19 02:15 12/20/19 06:43 Diprivan - IVPB 20 mcg/kg/min TITR MICHAEL 12.655 mls/hr Administration Protocol 5 MCG/KG/MIN Insulin Aspart 1 vial 12/10/19 07:00 12/20/19 06:44 Novolog Vial Sliding Scale - SQ Not Given ACHS MICHAEL Protocol Levetiracetam 500 mg 12/09/19 10:00 12/19/19 21:33 Keppra Injection - IVPB 500 mg BID MICHAEL Administration Levothyroxine Sodium 20 mcg 12/09/19 10:00 12/19/19 10:47 Synthroid Injection - IVPUSH 20 mcg DAILY MICHAEL Administration Mycophenolate Mofetil 500 mg 12/10/19 22:00 12/19/19 21:33 Cellcept Suspension - PO 500 mg BID MICHAEL Administration Pantoprazole Sodium 40 mg 12/09/19 10:00 12/19/19 10:47 Protonix Iv IVPUSH 40 mg DAILY MICHAEL Administration Rosuvastatin Calcium 10 mg 12/07/19 22:00 12/19/19 21:33 Crestor - PO 10 mg HS MICHAEL Administration Scopolamine HBr 1 patch 12/17/19 22:00 12/17/19 22:35 Transderm-Scop - TD 1 patch Q72H MICHAEL Administration Sevelamer Carbonate 0.8 gm 12/16/19 17:30 12/19/19 16:33 Renvela Powder Packet - PO 0.8 gm TIDCM MICHAEL Administration Silver Sulfadiazine 1 applic 12/15/19 12:45 12/19/19 21:33 Silvadene - TP 1 applic BID MICHAEL Administration Tamsulosin HCl 0.4 mg 12/08/19 08:30 12/19/19 08:29 Flomax - PO 0.4 mg 0830 MICHAEL Administration Impression 1. CKD 2. CHF 3. BPH 4. a. fib 5. CAD 6. epilepsy 7. proteinuria 8. anemia 9. foot ulcer 10. abd wall cellulitis 11. bullous pemphigoid- on cellcept 12. LETITIA 13. hyperkalemia 14. cardiac arrest 15. resp failure on vent 16. r/o aspiration Plan dc cellcept since it can cause gi bleeding hold eliquis transfuse dc tamsulosin if patient has puri would give ddavp 0.3 mcg per kg x1 over 30 mins given bleeding MV
[2019-12-20] MEDS ORDERED: PT OWN MED DRAWER 7, Y5N ONE ×4 (09:54→21:15)
--- NOTE | 2019-12-20 09:58 | PN ---
Progress Note, Physician - Current Medication List Current Medications: Active Medications Albuterol/Ipratropium (Duoneb -) 1 amp NEB Q4H PRN PRN Reason: SHORT OF BREATH/WHEEZING Last Admin: 12/08/19 02:38 Dose: 1 amp Documented by: Apixaban (Eliquis -) 2.5 mg PO BID [facility] Last Admin: 12/19/19 21:33 Dose: 2.5 mg Documented by: Artificial Tears (Artificial Tears) 1 drop OU BID PRN PRN Reason: DRY EYES Last Admin: 12/17/19 10:22 Dose: 1 drop Documented by: Cefazolin Sodium 500 mg/ (Dextrose) 50 mls @ 100 mls/hr IVPB BID [facility] Last Admin: 12/19/19 21:36 Dose: 100 mls/hr Documented by: Meropenem 500 mg/ Dextrose 100 mls @ 200 mls/hr IVPB Q12H MICHAEL Last Admin: 12/20/19 02:05 Dose: 200 mls/hr Documented by: Fentanyl (Sublimaze Ivpb) 500 mcg in 100 mls @ 21.614 mls/hr IVPB TITR [facility]; Protocol Last Admin: 12/20/19 02:04 Dose: Not Given Documented by: Propofol (Diprivan -) 1,000,000 mcg in 100 mls @ 3.164 mls/hr IVPB TITR [facility]; Protocol Last Admin: 12/20/19 06:43 Dose: 20 mcg/kg/min, 12.655 mls/hr Documented by: Insulin Aspart (Novolog Vial Sliding Scale -) 1 vial SQ ACHS [facility]; Protocol Last Admin: 12/20/19 06:44 Dose: Not Given Documented by: Levetiracetam (Keppra Injection -) 500 mg IVPB BID [facility] Last Admin: 12/19/19 21:33 Dose: 500 mg Documented by: Levothyroxine Sodium (Synthroid Injection -) 20 mcg IVPUSH DAILY [facility] Last Admin: 12/19/19 10:47 Dose: 20 mcg Documented by: Pantoprazole Sodium (Protonix Iv) 40 mg IVPUSH DAILY [facility] Last Admin: 12/19/19 10:47 Dose: 40 mg Documented by: Rosuvastatin Calcium (Crestor -) 10 mg PO HS [facility] Last Admin: 12/19/19 21:33 Dose: 10 mg Documented by: Scopolamine HBr (Transderm-Scop -) 1 patch TD Q72H [facility] Last Admin: 12/17/19 22:35 Dose: 1 patch Documented by: Sevelamer Carbonate (Renvela Powder Packet -) 0.8 gm PO TIDCM [facility] Last Admin: 12/19/19 16:33 Dose: 0.8 gm Documented by: Silver Sulfadiazine (Silvadene -) 1 applic TP BID [facility] Last Admin: 12/19/19 21:33 Dose: 1 applic Documented by: Tamsulosin HCl (Flomax -) 0.4 mg PO 0830 [facility] Last Admin: 12/19/19 08:29 Dose: 0.4 mg Documented by: - Objective Vital Signs: Vital Signs Temperature 99.6 F 12/20/19 08:19 Pulse Rate 68 12/20/19 08:19 Respiratory Rate 18 12/20/19 08:19 Blood Pressure 118/57 L 12/20/19 08:19 O2 Sat by Pulse Oximetry (%) 100 12/20/19 08:19 Cardiovascular: Yes: Regular Rate and Rhythm Respiratory: Yes: Regular, CTA Bilaterally Gastrointestinal: Yes: Normal Bowel Sounds, Soft. No: Tenderness Labs: CBC, BMP 12/20/19 05:30 12/20/19 05:30 INR, PTT INR 1.29 (0.83-1.09) H 12/15/19 11:01 Problem List - Problems (1) Bullous pemphigoid Code(s): L12.0 - BULLOUS PEMPHIGOID (2) Caregiver unable to cope Code(s): Z74.8 - OTHER PROBLEMS RELATED TO CARE PROVIDER DEPENDENCY (3) Afib Code(s): I48.91 - UNSPECIFIED ATRIAL FIBRILLATION (4) Anemia Code(s): D64.9 - ANEMIA, UNSPECIFIED Qualifiers: Iron deficiency anemia type: chronic blood loss (5) CHF (congestive heart failure) Code(s): I50.9 - HEART FAILURE, UNSPECIFIED (6) Diabetes mellitus Code(s): E11.9 - TYPE 2 DIABETES MELLITUS WITHOUT COMPLICATIONS (7) Hypothyroidism Code(s): E03.9 - HYPOTHYROIDISM, UNSPECIFIED (8) Altered mental state Code(s): R41.82 - ALTERED MENTAL STATUS, UNSPECIFIED Assessment/Plan - Problems (1) Acute respiratory failure Assessment/Plan: -Mech vent -Pulmonary consult -IV Cefazolin + meropenem -Enteral feeds -Bronchodilators Problems reviewed: Yes Code(s): J96.00 - ACUTE RESPIRATORY FAILURE, UNSP W HYPOXIA OR HYPERCAPNIA (2) Bullous pemphigoid Assessment/Plan: -On cellcept -Silvadene top Problems reviewed: Yes Code(s): L12.0 - BULLOUS PEMPHIGOID (3) Acute on chronic renal insufficiency Assessment/Plan: -Nephrology on board -monitor daily labs Problems reviewed: Yes Code(s): N28.9 - DISORDER OF KIDNEY AND URETER, UNSPECIFIED; N18.9 - CHRONIC KIDNEY DISEASE, UNSPECIFIED (4) Pneumonia Assessment/Plan: -Likely aspiration -CXR reviewed -Repeat COVID 19 PCR negative -IV abx -ID consult -Lactic acidosis noted Problems reviewed: Yes Code(s): J18.9 - PNEUMONIA, UNSPECIFIED ORGANISM (5) Afib Assessment/Plan: -Chronic, rate controlled -D/C heparin -Eliquis 2.5 mg po bid for age>80, Cr>1.5 -Transfuse if needed Problems reviewed: Yes Code(s): I48.91 - UNSPECIFIED ATRIAL FIBRILLATION (6) Anemia Assessment/Plan: -GI BLEED -DC ELIQUIS AND CELLCEPT -workup last admission was negative -hematology consult -Transfuse only if hg<7.0 to avoid fluid overload. Problems reviewed: Yes Code(s): D64.9 - ANEMIA, UNSPECIFIED (7) Bacteremia Assessment/Plan: -Repeat BC preliminary negative -IV abx -ID on board Problems reviewed: Yes Code(s): R78.81 - BACTEREMIA Ongoing discussion with family regarding comfort care. GI PPX Pt tolerating enteral feeds
[2019-12-20] MEDS: PANTOPRAZOLE SODIUM 40 MG VIAL IVPUSH SCH (10:00)
[2019-12-20] MEDS: SILVER SULFADIAZINE 1% TOP CREAM 50 GM JAR TP SCH ×2 (10:03→21:16)
[2019-12-20] MEDS: levETIRAcetam 500 MG/5 ML INJECTION VIAL IVPB SCH ×2 (10:04→21:16)
[2019-12-20] MEDS: CEFAZOLIN 500 MG in DEXTROSE 5%-WATER - 50 ML IVPB SCH ×2 (10:40→21:16)
[2019-12-20] MEDS: LEVOTHYROXINE SODIUM 100 MCG VIAL IVPUSH SCH (10:44)
[2019-12-20] MEDS ORDERED: MEROPENEM 500 MG VIAL (RESTRICTED TO ID) IVPB ONE ×2 (11:00→21:13)
[2019-12-20] MEDS ORDERED: DEXTROSE 5%-WATER 100 ML IVPB ONE ×2 (11:00→21:14)
--- NOTE | 2019-12-20 12:08 | PN ---
Teaching Attending Note Name of Resident: Otilia Felipe ATTENDING PHYSICIAN STATEMENT I saw and evaluated the patient. I reviewed the resident's note and discussed the case with the resident. I agree with the resident's findings and plan as documented. SUBJECTIVE: Pt seen and examined in the ICU. Remains intubated, sedated. Agitated, not foll owing commands off sedation. OBJECTIVE: Vital Signs Period Temp Pulse Resp BP Sys/Hair Pulse Ox Last 24 Hr 99 F-99.6 F 66-100 18-20 80-118/50-59 97-100 Intake & Output 12/17/19 12/18/19 12/19/19 12/20/19 23:59 23:59 23:59 23:59 Intake Total 2800 1493 1964.8 1208.9 Output Total 5075 700 3965 1300 Balance 1100 793 364.8 -91.1 Weight 105.46 kg 104.1 kg 106.1 kg 106 kg Gen: intubated, sedated Heart: RRR Lung; scattered rhonchi Abd: soft, nontender Ext: + edema CBC, BMP 12/20/19 05:30 12/20/19 05:30 Active Medications Albuterol/Ipratropium (Duoneb -) 1 amp NEB Q4H PRN PRN Reason: SHORT OF BREATH/WHEEZING Last Admin: 12/08/19 02:38 Dose: 1 amp Documented by: Apixaban (Eliquis -) 2.5 mg PO BID [facility] Last Admin: 12/19/19 21:33 Dose: 2.5 mg Documented by: Artificial Tears (Artificial Tears) 1 drop OU BID PRN PRN Reason: DRY EYES Last Admin: 12/17/19 10:22 Dose: 1 drop Documented by: Cefazolin Sodium 500 mg/ (Dextrose) 50 mls @ 100 mls/hr IVPB BID [facility] Last Admin: 12/20/19 10:40 Dose: 100 mls/hr Documented by: Meropenem 500 mg/ Dextrose 100 mls @ 200 mls/hr IVPB Q12H [facility] Last Admin: 12/20/19 02:05 Dose: 200 mls/hr Documented by: Fentanyl (Sublimaze Ivpb) 500 mcg in 100 mls @ 21.614 mls/hr IVPB TITR MICHAEL; Protocol Last Admin: 12/20/19 10:09 Dose: 0.23 mcg/kg/hr, 5 mls/hr Documented by: Propofol (Diprivan -) 1,000,000 mcg in 100 mls @ 3.164 mls/hr IVPB TITR [facility]; Protocol Last Admin: 12/20/19 06:43 Dose: 20 mcg/kg/min, 12.655 mls/hr Documented by: Insulin Aspart (Novolog Vial Sliding Scale -) 1 vial SQ ACHS [facility]; Protocol Last Admin: 12/20/19 10:48 Dose: Not Given Documented by: Levetiracetam (Keppra Injection -) 500 mg IVPB BID [facility] Last Admin: 12/20/19 10:04 Dose: 500 mg Documented by: Levothyroxine Sodium (Synthroid Injection -) 20 mcg IVPUSH DAILY [facility] Last Admin: 12/20/19 10:44 Dose: 20 mcg Documented by: Pantoprazole Sodium (Protonix Iv) 40 mg IVPUSH DAILY [facility] Last Admin: 12/20/19 10:00 Dose: 40 mg Documented by: Rosuvastatin Calcium (Crestor -) 10 mg PO HS [facility] Last Admin: 12/19/19 21:33 Dose: 10 mg Documented by: Scopolamine HBr (Transderm-Scop -) 1 patch TD Q72H [facility] Last Admin: 12/17/19 22:35 Dose: 1 patch Documented by: Sevelamer Carbonate (Renvela Powder Packet -) 0.8 gm PO TIDCM [facility] Last Admin: 12/20/19 11:05 Dose: 0.8 gm Documented by: Silver Sulfadiazine (Silvadene -) 1 applic TP BID [facility] Last Admin: 12/20/19 10:03 Dose: 1 applic Documented by: Tamsulosin HCl (Flomax -) 0.4 mg PO 0830 [facility] Last Admin: 12/20/19 09:00 Dose: 0.4 mg Documented by: ASSESSMENT AND PLAN: s/p Cardiopulmonary Arrest Acute Hypoxic and Hypercapneic Respiratory Failure Likely Aspiration Pneumonia Septic Shock Acute on Chronic Renal Failure Lactic Acidosis Bullous Pemphigoid CAD LV Diastolic Dysfunction Atrial Fibrillation Seizure Disorder h/o CVA Hypothyroidism Anemia Thrombocytopenia - continue antibiotics - transfuse PRBC - monitor H/H - monitor urine output, creatinine - rate control - daily sedation vacation to assess mental status - continue volume assist control - enteral feeds - DVT/GI prophylaxis - ICU monitoring - continue discussions regarding goals of care critical care time spent in reviewing chart, evaluating patient and formulating plan 35 min
[2019-12-20] MEDS ORDERED: DESMOPRESSIN ACETATE 4 MCG/ML AMP IVPB ONE (12:42)
[2019-12-20] MEDS ORDERED: DESMOPRESSIN ACETATE 30 MCG in SODIUM CHLORIDE 50 ML IVPB ONE (13:30)
[2019-12-20] MEDS ORDERED: FUROSEMIDE 40 MG/4 ML INJECTABLE VIAL IVPUSH ONE (16:00)
--- NOTE | 2019-12-20 16:50 | PN ---
Physical Exam: SUBJECTIVE: Patient seen and examined. Remains sedated and intubated. Overnight events: Anemic at Hb 6.8. Gave 3 U pRBCs, DDAVP 0.3 mcg/kg and held eliquis. Repeat Hb was 8.9. OBJECTIVE: Vital Signs Period Temp Pulse Resp BP Sys/Hair Pulse Ox Last 24 Hr 98.7 F-99.6 F 61-100 18-19 101-118/49-66 97-100 GENERAL: The patient is sedated. HEAD: NCAT LUNGS: Clear to auscultation bilaterally HEART: Regular rate and rhythm, S1, S2 without murmur ABDOMEN: Soft, nondistended, normoactive bowel sounds EXTREMITIES: warm, well-perfused, no edema. SKIN: Warm, dry, multiple lesions in various stages of healing on all 4 extremities. Laboratory Last Values WBC 9.3 K/mm3 (4.0-10.0) 12/20/19 05:30 RBC 2.19 M/mm3 (4.00-5.60) L 12/20/19 05:30 Hgb 6.3 GM/dL (11.7-16.9) L* 12/20/19 05:30 Hct 19.9 % (35.4-49) L 12/20/19 05:30 MCV 90.8 fl (80-96) 12/20/19 05:30 MCH 28.9 pg (25.7-33.7) 12/20/19 05:30 MCHC 31.9 g/dl (32.0-35.9) L 12/20/19 05:30 RDW 16.7 % (11.9-15.9) H 12/20/19 05:30 Plt Count 185 K/MM3 (134-434) 12/20/19 05:30 MPV 8.8 fl (7.5-11.1) 12/20/19 05:30 Absolute Neuts (auto) 7.8 K/mm3 (1.5-8.0) 12/20/19 05:30 Neutrophils % 83.4 % (42.8-82.8) H 12/20/19 05:30 Neutrophils % (Manual) 95.0 % (42.8-82.8) H 12/10/19 06:00 Band Neutrophils % 4.0 % 12/10/19 06:00 Lymphocytes % 8.5 % (8-40) D 12/20/19 05:30 Lymphocytes % (Manual) 1.0 % (8-40) L D 12/10/19 06:00 Monocytes % 7.4 % (3.8-10.2) 12/20/19 05:30 Monocytes % (Manual) 0 % (3.8-10.2) L 12/10/19 06:00 Eosinophils % 0.6 % (0-4.5) 12/20/19 05:30 Eosinophils % (Manual) 0.0 % (0-4.5) 12/10/19 06:00 Basophils % 0.1 % (0-2.0) 12/20/19 05:30 Basophils % (Manual) 0.0 % (0-2.0) 12/10/19 06:00 Myelocytes % (Man) 0 % (0-2) 12/10/19 06:00 Promyelocytes % (Man) 0 % (0-2) 12/10/19 06:00 Blast Cells % (Manual) 0 % (0-0) 12/10/19 06:00 Nucleated RBC % 0 % (0-0) 12/20/19 05:30 Metamyelocytes 0 % (0-2) 12/10/19 06:00 Hypochromia 1+ 12/10/19 06:00 Platelet Estimate Decreased 12/10/19 06:00 Platelet Comment Present 12/07/19 19:10 Polychromasia 0 12/10/19 06:00 Poikilocytosis 1+ 12/10/19 06:00 Anisocytosis 1+ 12/10/19 06:00 Microcytosis 1+ 12/10/19 06:00 Macrocytosis 1+ 12/10/19 06:00 Tear Drop Cells 1+ 12/07/19 19:10 Ovalocytes 1+ 12/10/19 06:00 [place] Cells 1+ 12/07/19 19:10 Rouleaux 1+ 12/09/19 08:15 Schistocytes 1+ 12/10/19 06:00 PT with INR 15.30 SEC (9.7-13.0) H 12/15/19 11:01 INR 1.29 (0.83-1.09) H 12/15/19 11:01 Anticoagulation Therapy No Result Required. 12/18/19 06:10 Puncture Site Right radial 12/18/19 06:10 Patient Temperature No Result Required. 12/18/19 06:10 ABG pH 7.418 (7.350-7.450) 12/18/19 06:10 ABG pCO2 39.60 mmHg (35-45) 12/18/19 06:10 ABG pO2 62.0 mmHg (80-100) L 12/18/19 06:10 ABG HCO3 25.0 mmol/L (22-27) 12/18/19 06:10 ABG O2 Sat (Measured) 92.2 mmHg (95-98) L 12/18/19 06:10 ABG O2 Content No Result Required. 12/18/19 06:10 ABG Base Excess 0.5 mmol/L (-2-2) 12/18/19 06:10 Ishan Test Positive 12/18/19 06:10 Patient On Oxygen Yes 12/18/19 06:10 O2 Delivery Device Vent 12/18/19 06:10 Oxygen Flow Rate 40 12/18/19 06:10 Vent Mode A/c 12/18/19 06:10 Vent Rate 18 12/18/19 06:10 Mechanical Rate No Result Required. 12/18/19 06:10 PEEP 5.0 cmH2O 12/18/19 06:10 Pressure Support Vent 450 12/18/19 06:10 Sodium 143 mmol/L (136-145) 12/20/19 05:30 Potassium 4.1 mmol/L (3.5-5.1) 12/20/19 05:30 Chloride 106 mmol/L (98-107) 12/20/19 05:30 Carbon Dioxide 27 mmol/L (21-32) 12/20/19 05:30 Anion Gap 11 MMOL/L (8-16) 12/20/19 05:30 BUN 138.6 mg/dL (7-18) H* 12/20/19 05:30 Creatinine 3.3 mg/dL (0.55-1.3) H 12/20/19 05:30 Est GFR (CKD-EPI)AfAm 19.23 12/20/19 05:30 Est GFR (CKD-EPI)NonAf 16.59 12/20/19 05:30 POC Glucometer 131 UNITS (80-120) 07/04/20 16:19 Random Glucose 139 mg/dL (74-106) H 12/20/19 05:30 Lactic Acid 3.6 mmol/L (0.4-2.0) H* 12/09/19 08:15 Calcium 7.7 mg/dL (8.5-10.1) L 12/20/19 05:30 Phosphorus 4.5 mg/dL (2.5-4.9) 12/20/19 05:30 Magnesium 2.1 mg/dL (1.8-2.4) 12/20/19 05:30 Iron 180 ug/dL (50-175) H 12/04/19 06:55 TIBC 197 ug/dL (250-450) L 12/04/19 06:55 Iron Saturation 91 % (17.5-39) H 12/04/19 06:55 Unsaturated IBC 17 ug/dL (200-275) L 12/04/19 06:55 Ferritin 736.1 ng/ml (8-388) H 12/04/19 06:55 Total Bilirubin 0.7 mg/dL (0.2-1) 12/20/19 05:30 AST 22 U/L (15-37) 12/20/19 05:30 ALT < 6 U/L (13-61) L 12/20/19 05:30 Alkaline Phosphatase 61 U/L (45-117) 12/20/19 05:30 Creatine Kinase 38 U/L (26-308) 12/07/19 14:00 Troponin I < 0.02 ng/ml (0.00-0.05) 12/09/19 08:15 Total Protein 4.9 g/dl (6.4-8.2) L 12/20/19 05:30 Albumin 1.9 g/dl (3.4-5.0) L 12/20/19 05:30 Prolactin 287.0 ng/ml (4.0-15.2) H 12/09/19 08:15 Vancomycin Pre-Dose 14.8 ug/ml (5-10) H 12/10/19 10:33 COVID-19 (SHENG) Not detected (Not Detected) 12/08/19 22:30 Blood Type B POSITIVE 12/20/19 09:15 Antibody Screen Negative 12/20/19 09:15 Crossmatch See Detail 12/20/19 09:15 Active Medications Albuterol/Ipratropium (Duoneb -) 1 amp NEB Q4H PRN PRN Reason: SHORT OF BREATH/WHEEZING Last Admin: 12/08/19 02:38 Dose: 1 amp Documented by: Artificial Tears (Artificial Tears) 1 drop OU BID PRN PRN Reason: DRY EYES Last Admin: 12/17/19 10:22 Dose: 1 drop Documented by: Cefazolin Sodium 500 mg/ (Dextrose) 50 mls @ 100 mls/hr IVPB BID MICHAEL Last Admin: 12/20/19 10:40 Dose: 100 mls/hr Documented by: Meropenem 500 mg/ Dextrose 100 mls @ 200 mls/hr IVPB Q12H MICHAEL Last Admin: 12/20/19 13:28 Dose: 200 mls/hr Documented by: Fentanyl (Sublimaze Ivpb) 500 mcg in 100 mls @ 21.614 mls/hr IVPB TITR [facility]; Protocol Last Admin: 12/20/19 10:09 Dose: 0.23 mcg/kg/hr, 5 mls/hr Documented by: Propofol (Diprivan -) 1,000,000 mcg in 100 mls @ 3.164 mls/hr IVPB TITR [facility]; Protocol Last Admin: 12/20/19 06:43 Dose: 20 mcg/kg/min, 12.655 mls/hr Documented by: Insulin Aspart (Novolog Vial Sliding Scale -) 1 vial SQ ACHS MICHAEL; Protocol Last Admin: 12/20/19 16:21 Dose: Not Given Documented by: Levetiracetam (Keppra Injection -) 500 mg IVPB BID [facility] Last Admin: 12/20/19 10:04 Dose: 500 mg Documented by: Levothyroxine Sodium (Synthroid Injection -) 20 mcg IVPUSH DAILY [facility] Last Admin: 12/20/19 10:44 Dose: 20 mcg Documented by: Pantoprazole Sodium (Protonix Iv) 40 mg IVPUSH DAILY [facility] Last Admin: 12/20/19 10:00 Dose: 40 mg Documented by: Rosuvastatin Calcium (Crestor -) 10 mg PO HS [facility] Last Admin: 12/19/19 21:33 Dose: 10 mg Documented by: Scopolamine HBr (Transderm-Scop -) 1 patch TD Q72H MICHAEL Last Admin: 12/17/19 22:35 Dose: 1 patch Documented by: Sevelamer Carbonate (Renvela Powder Packet -) 0.8 gm PO TIDCM [facility] Last Admin: 12/20/19 11:05 Dose: 0.8 gm Documented by: Silver Sulfadiazine (Silvadene -) 1 applic TP BID [facility] Last Admin: 12/20/19 10:03 Dose: 1 applic Documented by: Tamsulosin HCl (Flomax -) 0.4 mg PO 0830 [facility] Last Admin: 12/20/19 09:00 Dose: 0.4 mg Documented by: ASSESSMENT/PLAN: 79 y/o male PMH dCHF, afib, CAD s/p PCI, HTN, seizure d/o, CVA with right sided residual deficit, CKD, hypothyroidism, and bullous pemphigoid. CONTINUITY COORDINATOR called for unresponsiveness and possibly aspiration PNA. He is now s/p cardiopulmonary arrest (on 12/09/2019) demonstrating PEA x2 (ROSC >1 min for both) in the ICU secondary to acute hypoxic respiratory failure. He was anemic today with an Hb of 6.3. He received 3 U pRBCs and repeat Hb was 8.9. # Neuro: Seizure disorder h/o CVA with right-side residual deficit - Sedated on Propofol. Will attempt sedation holiday to assess function. -On Keppra # Card: Afib diastolic CHF CAD HTN Anemia -Hb 6.3, Transfused 3U pRBCs. Repeat CBC showed Hb 8.9. Will continue to monitor. Transfuse if Hb <8. -DDAVP 0.3 mcg/kg -Hold Eliquis -On rosuvastatin # Pulm ARDS, aspiration PNA -Mechanically ventilated. Wean as tolerated. -On albuterol-ipratropium - Will not obtain daily CXR and ABG unless clinically significant change. Recent trend has been stable. # ID - Sputum culture grew pseudomonas. Cefazolin (12/11) and Meropenem (12/11) per ID recommendation. # Renal - Slight improvement in LETITIA on CKD - Nephro consulted. D/C'ed tamsulosin due to pt having puri. -On Lasix, Renvela #Endo -ISS + BGM -On synthroid # Skin - d/c'ed cellcept due to adverse effect of gi bleed. -Silvadene # FEN - Tube feeds per dietary recommendations. #Lines, tubes, drains: 12/18- [facility] 12/08- ETT # Prophylaxis: -Hold eliquis. - GI: Protonix # Code Status / Family Conversation: - Full Code - Dr. Branch of palliative care consulted. Will f/u recommendations. Dispo: Pt to remain in the ICU while mechanically ventilated.Will continue to discuss goals of care with family. Visit type - Emergency Visit Emergency Visit: Yes ED Registration Date: 12/03/19 Care time: The patient presented to the Emergency Department on the above date and was hospitalized for further evaluation of their emergent condition. - New Patient This patient is new to me today: No - Critical Care Critical Care patient: Yes Total Critical Care Time (in minutes): 38 Critical Care Statement: The care of this patient involved high complexity decision making to prevent further life threatening deterioration of the patient's condition and/or to evaluate & treat vital organ system(s) failure or risk of failure. ATTENDING PHYSICIAN STATEMENT I saw and evaluated the patient. I reviewed the resident's note and discussed the case with the resident. I agree with the resident's findings and plan as documented. SUBJECTIVE: OBJECTIVE: ASSESSMENT AND PLAN:
[2019-12-20 19:49] LABS: BASO % 0.1 % (0-2.0); EOS % 0.7 % (0-4.5); HEMATOCRIT 27.2 % (35.4-49); HEMOGLOBIN 8.9 GM/dL (11.7-16.9); LYMPH % 5.2 % (8-40); MCH 29.7 pg (25.7-33.7); MCHC 32.6 g/dl (32.0-35.9); MEAN CELL VOLUME 91.2 fl (80-96); MEAN PLT VOLUME 8.6 fl (7.5-11.1); MONO % 6.6 % (3.8-10.2); NEUT % 87.4 % (42.8-82.8); PLATELET COUNT 197 K/MM3 (134-434); RBC 2.99 M/mm3 (4.00-5.60); RDW 15.4 % (11.9-15.9); WHITE BLOOD COUNT 10.3 K/mm3 (4.0-10.0)
[2019-12-20] MEDS: ROSUVASTATIN CA 10 MG TABLET (FP) PO SCH (21:16)
[2019-12-20] MEDS: SCOPOLAMINE HYDROBROMIDE 1 PATCH PATCH.TD72 TD SCH (21:17)
[2019-12-21] MEDS: MEROPENEM 500 MG in DEXTROSE 5%-WATER 100 ML IVPB SCH ×2 (01:00→12:11)
[2019-12-21] MEDS: FENTANYL NS IVPB 500 MCG/100 ML BAG IVPB SCH (01:00)
[2019-12-21] MEDS: PROPOFOL 1,000,000 MCG/100 ML VIAL IVPB SCH (06:19)
[2019-12-21] MEDS: INSULIN SLIDING SCALE (NOVOLOG) 1 VIAL SQ SCH ×4 (06:19→22:48)
[2019-12-21 07:02] LABS: BASO % 0.1 % (0-2.0); EOS % 0.7 % (0-4.5); HEMOGLOBIN 8.8 GM/dL (11.7-16.9); LYMPH % 6.9 % (8-40); MCH 29.2 pg (25.7-33.7); MCHC 32.8 g/dl (32.0-35.9); MEAN CELL VOLUME 89.2 fl (80-96); MEAN PLT VOLUME 8.6 fl (7.5-11.1); MONO % 7.1 % (3.8-10.2); NEUT % 85.2 % (42.8-82.8); PLATELET COUNT 220 K/MM3 (134-434); RBC 3.02 M/mm3 (4.00-5.60); RDW 15.4 % (11.9-15.9); WHITE BLOOD COUNT 10.8 K/mm3 (4.0-10.0)
[2019-12-21 07:37] LABS: BILIRUBIN,TOTAL 0.6 mg/dL (0.2-1); CALCIUM 7.8 mg/dL (8.5-10.1); PHOSPHOROUS 4.9 mg/dL (2.5-4.9); POTASSIUM 3.9 mmol/L (3.5-5.1); TOT PROT 5.1 g/dl (6.4-8.2)
[2019-12-21 07:48] LABS: BLOOD UREA NITROGEN 127.8 mg/dL (7-18)
[2019-12-21] MEDS ORDERED: PT OWN MED DRAWER 7, Y5N ONE ×3 (09:42→22:53)
[2019-12-21] MEDS: PANTOPRAZOLE SODIUM 40 MG VIAL IVPUSH SCH (09:51)
[2019-12-21] MEDS: LEVOTHYROXINE SODIUM 100 MCG VIAL IVPUSH SCH (09:51)
[2019-12-21] MEDS: levETIRAcetam 500 MG/5 ML INJECTION VIAL IVPB SCH ×2 (09:51→22:18)
[2019-12-21] MEDS: CEFAZOLIN 500 MG in DEXTROSE 5%-WATER - 50 ML IVPB SCH ×2 (09:52→22:25)
[2019-12-21] MEDS: SEVELAMER CARBONATE 0.8 GM POWDER PACKET PO SCH ×3 (09:52→19:24)
--- NOTE | 2019-12-21 09:57 | PN ---
Progress Note (short form) - Note Progress Note: RENAL Pt seen and examined at bedside sedated Last Vital Signs Temp Pulse Resp BP Pulse Ox 99.2 F 70 18 128/56 L 100 12/21/19 09:32 12/21/19 08:00 12/21/19 08:00 12/21/19 08:00 12/20/19 22:00 intubated lungs bilat air entry cvs s1s2 abd soft distended ext +edema neuro sedated skin multiple areas of ulceration Current Medications Generic Name Dose Route Start Last Admin Trade Name Freq PRN Reason Stop Dose Admin Albuterol/Ipratropium 1 amp 12/07/19 13:25 12/08/19 02:38 Duoneb - NEB 1 amp Q4H PRN Administration SHORT OF BREATH/WHEEZING Artificial Tears 1 drop 12/15/19 07:31 12/17/19 10:22 Artificial Tears OU 1 drop BID PRN Administration DRY EYES Cefazolin Sodium 500 mg/ 50 mls @ 100 mls/hr 12/12/19 12:45 12/20/19 21:16 Dextrose IVPB 100 mls/hr BID MICHAEL Administration Meropenem 500 mg/ Dextrose 100 mls @ 200 mls/hr 12/12/19 12:45 12/21/19 01:00 IVPB 200 mls/hr Q12H MICHAEL Administration Fentanyl 500 mcg in 100 mls @ 21.614 mls/hr 12/17/19 01:15 12/21/19 01:00 Sublimaze Ivpb IVPB Not Given TITR MICHAEL Protocol 1 MCG/KG/HR Propofol 1,000,000 mcg in 100 mls @ 3.164 mls/hr 12/18/19 02:15 12/21/19 06:19 Diprivan - IVPB 25 mcg/kg/min TITR MICHAEL 15.819 mls/hr Administration Protocol 5 MCG/KG/MIN Insulin Aspart 1 vial 12/10/19 07:00 12/21/19 06:19 Novolog Vial Sliding Scale - SQ Not Given ACHS MICHAEL Protocol Levetiracetam 500 mg 12/09/19 10:00 12/20/19 21:16 Keppra Injection - IVPB 500 mg BID MICHAEL Administration Levothyroxine Sodium 20 mcg 12/09/19 10:00 12/20/19 10:44 Synthroid Injection - IVPUSH 20 mcg DAILY MICHAEL Administration Pantoprazole Sodium 40 mg 12/09/19 10:00 12/20/19 10:00 Protonix Iv IVPUSH 40 mg DAILY MICHAEL Administration Rosuvastatin Calcium 10 mg 12/07/19 22:00 12/20/19 21:16 Crestor - PO 10 mg HS MICHAEL Administration Scopolamine HBr 1 patch 12/17/19 22:00 12/20/19 21:17 Transderm-Scop - TD 1 patch Q72H MICHAEL Administration Sevelamer Carbonate 0.8 gm 12/16/19 17:30 12/20/19 17:56 Renvela Powder Packet - PO 0.8 gm TIDCM MICHAEL Administration Silver Sulfadiazine 1 applic 12/15/19 12:45 12/20/19 21:16 Silvadene - TP 1 applic BID MICHAEL Administration CBC, BMP 12/21/19 06:00 12/21/19 06:00 Impression 1. CKD 2. CHF 3. BPH 4. a. fib 5. CAD 6. epilepsy 7. proteinuria 8. anemia 9. foot ulcer 10. abd wall cellulitis 11. bullous pemphigoid- on cellcept 12. LETITIA 13. hyperkalemia 14. cardiac arrest 15. resp failure on vent 16. r/o aspiration Plan continue current management avoid nephrotoxins MV
[2019-12-21] MEDS ORDERED: MEROPENEM 500 MG VIAL (RESTRICTED TO ID) IVPB ONE ×2 (11:00→21:32)
[2019-12-21] MEDS ORDERED: DEXTROSE 5%-WATER 100 ML IVPB ONE ×2 (11:00→21:32)
--- NOTE | 2019-12-21 11:02 | PN ---
Progress Note, Physician - Current Medication List Current Medications: Active Medications Albuterol/Ipratropium (Duoneb -) 1 amp NEB Q4H PRN PRN Reason: SHORT OF BREATH/WHEEZING Last Admin: 12/08/19 02:38 Dose: 1 amp Documented by: Artificial Tears (Artificial Tears) 1 drop OU BID PRN PRN Reason: DRY EYES Last Admin: 12/17/19 10:22 Dose: 1 drop Documented by: Cefazolin Sodium 500 mg/ (Dextrose) 50 mls @ 100 mls/hr IVPB BID MICHAEL Last Admin: 12/21/19 09:52 Dose: 100 mls/hr Documented by: Meropenem 500 mg/ Dextrose 100 mls @ 200 mls/hr IVPB Q12H MICHAEL Last Admin: 12/21/19 01:00 Dose: 200 mls/hr Documented by: Fentanyl (Sublimaze Ivpb) 500 mcg in 100 mls @ 21.614 mls/hr IVPB TITR [facility]; Protocol Last Admin: 12/21/19 01:00 Dose: Not Given Documented by: Propofol (Diprivan -) 1,000,000 mcg in 100 mls @ 3.164 mls/hr IVPB TITR [facility]; Protocol Last Admin: 12/21/19 06:19 Dose: 25 mcg/kg/min, 15.819 mls/hr Documented by: Insulin Aspart (Novolog Vial Sliding Scale -) 1 vial SQ ACHS [facility]; Protocol Last Admin: 12/21/19 06:19 Dose: Not Given Documented by: Levetiracetam (Keppra Injection -) 500 mg IVPB BID [facility] Last Admin: 12/21/19 09:51 Dose: 500 mg Documented by: Levothyroxine Sodium (Synthroid Injection -) 20 mcg IVPUSH DAILY [facility] Last Admin: 12/21/19 09:51 Dose: 20 mcg Documented by: Pantoprazole Sodium (Protonix Iv) 40 mg IVPUSH DAILY [facility] Last Admin: 12/21/19 09:51 Dose: 40 mg Documented by: Rosuvastatin Calcium (Crestor -) 10 mg PO HS [facility] Last Admin: 12/20/19 21:16 Dose: 10 mg Documented by: Scopolamine HBr (Transderm-Scop -) 1 patch TD Q72H [facility] Last Admin: 12/20/19 21:17 Dose: 1 patch Documented by: Sevelamer Carbonate (Renvela Powder Packet -) 0.8 gm PO TIDCM [facility] Last Admin: 12/21/19 09:52 Dose: 0.8 gm Documented by: Silver Sulfadiazine (Silvadene -) 1 applic TP BID [facility] Last Admin: 12/20/19 21:16 Dose: 1 applic Documented by: - Objective Vital Signs: Vital Signs Temperature 99.2 F 12/21/19 10:00 Pulse Rate 74 12/21/19 10:00 Respiratory Rate 18 12/21/19 10:00 Blood Pressure 115/62 12/21/19 10:00 O2 Sat by Pulse Oximetry (%) 100 12/21/19 10:00 Cardiovascular: Yes: S1, S2 Respiratory: Yes: Regular, CTA Bilaterally Gastrointestinal: Yes: Normal Bowel Sounds, Soft Labs: CBC, BMP 12/21/19 06:00 12/21/19 06:00 INR, PTT INR 1.29 (0.83-1.09) H 12/15/19 11:01 Problem List - Problems (1) Bullous pemphigoid Code(s): L12.0 - BULLOUS PEMPHIGOID (2) Caregiver unable to cope Code(s): Z74.8 - OTHER PROBLEMS RELATED TO CARE PROVIDER DEPENDENCY (3) Afib Code(s): I48.91 - UNSPECIFIED ATRIAL FIBRILLATION (4) Anemia Code(s): D64.9 - ANEMIA, UNSPECIFIED Qualifiers: Iron deficiency anemia type: chronic blood loss (5) CHF (congestive heart failure) Code(s): I50.9 - HEART FAILURE, UNSPECIFIED (6) Diabetes mellitus Code(s): E11.9 - TYPE 2 DIABETES MELLITUS WITHOUT COMPLICATIONS (7) Hypothyroidism Code(s): E03.9 - HYPOTHYROIDISM, UNSPECIFIED (8) Altered mental state Code(s): R41.82 - ALTERED MENTAL STATUS, UNSPECIFIED Assessment/Plan - Problems (1) Acute respiratory failure Assessment/Plan: -Mech vent -Pulmonary consult -IV Cefazolin + meropenem -Enteral feeds -Bronchodilators Problems reviewed: Yes Code(s): J96.00 - ACUTE RESPIRATORY FAILURE, UNSP W HYPOXIA OR HYPERCAPNIA (2) Bullous pemphigoid Assessment/Plan: -On cellcept -Silvadene top Problems reviewed: Yes Code(s): L12.0 - BULLOUS PEMPHIGOID (3) Acute on chronic renal insufficiency Assessment/Plan: -Nephrology on board -monitor daily labs Problems reviewed: Yes Code(s): N28.9 - DISORDER OF KIDNEY AND URETER, UNSPECIFIED; N18.9 - CHRONIC KIDNEY DISEASE, UNSPECIFIED (4) Pneumonia Assessment/Plan: -Likely aspiration -CXR reviewed -Repeat COVID 19 PCR negative -IV abx -ID consult -Lactic acidosis noted Problems reviewed: Yes Code(s): J18.9 - PNEUMONIA, UNSPECIFIED ORGANISM (5) Afib Assessment/Plan: -Chronic, rate controlled -D/C heparin -Eliquis 2.5 mg po bid for age>80, Cr>1.5 -Transfuse if needed Problems reviewed: Yes Code(s): I48.91 - UNSPECIFIED ATRIAL FIBRILLATION (6) Anemia Assessment/Plan: -GI BLEED -DC ELIQUIS AND CELLCEPT -workup last admission was negative -hematology consult -Transfuse only if hg<7.0 to avoid fluid overload. Problems reviewed: Yes Code(s): D64.9 - ANEMIA, UNSPECIFIED (7) Bacteremia Assessment/Plan: -Repeat BC preliminary negative -IV abx -ID on board Problems reviewed: Yes Code(s): R78.81 - BACTEREMIA Ongoing discussion with family regarding comfort care. GI PPX Pt tolerating enteral feeds
[2019-12-21] MEDS: SILVER SULFADIAZINE 1% TOP CREAM 50 GM JAR TP SCH ×2 (11:35→22:18)
--- NOTE | 2019-12-21 11:36 | PN ---
Teaching Attending Note Name of Resident: Teresa Martínez ATTENDING PHYSICIAN STATEMENT I saw and evaluated the patient. I reviewed the resident's note and discussed the case with the resident. I agree with the resident's findings and plan as documented. SUBJECTIVE: Pt seen and examined in the ICU. Remains intubated, sedated. No pressors. Vented on volume assist control with 40% FiO2. OBJECTIVE: Vital Signs Period Temp Pulse Resp BP Sys/Hair Pulse Ox Last 24 Hr 98.7 F-99.4 F 61-74 18-20 102-133/43-68 100-100 Intake & Output 12/18/19 12/19/19 12/20/19 12/21/19 23:59 23:59 23:59 23:59 Intake Total 1493 1964.8 4162.7 839.9 Output Total 700 1600 2150 2500 Balance 793 364.8 2012.7 -1660.1 Weight 104.1 kg 106.1 kg 106 kg 104.8 kg Gen: intubated, sedated Heart: RRR Lung; scattered rhonchi Abd: soft, nontender Ext: + edema CBC, BMP 12/21/19 06:00 12/21/19 06:00 Active Medications Albuterol/Ipratropium (Duoneb -) 1 amp NEB Q4H PRN PRN Reason: SHORT OF BREATH/WHEEZING Last Admin: 12/08/19 02:38 Dose: 1 amp Documented by: Artificial Tears (Artificial Tears) 1 drop OU BID PRN PRN Reason: DRY EYES Last Admin: 12/17/19 10:22 Dose: 1 drop Documented by: Cefazolin Sodium 500 mg/ (Dextrose) 50 mls @ 100 mls/hr IVPB BID MICHAEL Last Admin: 12/21/19 09:52 Dose: 100 mls/hr Documented by: Meropenem 500 mg/ Dextrose 100 mls @ 200 mls/hr IVPB Q12H MICHAEL Last Admin: 12/21/19 01:00 Dose: 200 mls/hr Documented by: Fentanyl (Sublimaze Ivpb) 500 mcg in 100 mls @ 21.614 mls/hr IVPB TITR MICHAEL; Protocol Last Admin: 12/21/19 01:00 Dose: Not Given Documented by: Propofol (Diprivan -) 1,000,000 mcg in 100 mls @ 3.164 mls/hr IVPB TITR MICHAEL; Protocol Last Admin: 12/21/19 06:19 Dose: 25 mcg/kg/min, 15.819 mls/hr Documented by: Insulin Aspart (Novolog Vial Sliding Scale -) 1 vial SQ ACHS [facility]; Protocol Last Admin: 12/21/19 06:19 Dose: Not Given Documented by: Levetiracetam (Keppra Injection -) 500 mg IVPB BID [facility] Last Admin: 12/21/19 09:51 Dose: 500 mg Documented by: Levothyroxine Sodium (Synthroid Injection -) 20 mcg IVPUSH DAILY [facility] Last Admin: 12/21/19 09:51 Dose: 20 mcg Documented by: Pantoprazole Sodium (Protonix Iv) 40 mg IVPUSH DAILY [facility] Last Admin: 12/21/19 09:51 Dose: 40 mg Documented by: Rosuvastatin Calcium (Crestor -) 10 mg PO HS [facility] Last Admin: 12/20/19 21:16 Dose: 10 mg Documented by: Scopolamine HBr (Transderm-Scop -) 1 patch TD Q72H [facility] Last Admin: 12/20/19 21:17 Dose: 1 patch Documented by: Sevelamer Carbonate (Renvela Powder Packet -) 0.8 gm PO TIDCM [facility] Last Admin: 12/21/19 09:52 Dose: 0.8 gm Documented by: Silver Sulfadiazine (Silvadene -) 1 applic TP BID [facility] Last Admin: 12/20/19 21:16 Dose: 1 applic Documented by: ASSESSMENT AND PLAN: s/p Cardiopulmonary Arrest Acute Hypoxic and Hypercapneic Respiratory Failure Likely Aspiration Pneumonia Septic Shock Acute on Chronic Renal Failure Lactic Acidosis Bullous Pemphigoid CAD LV Diastolic Dysfunction Atrial Fibrillation Seizure Disorder h/o CVA Hypothyroidism Anemia Thrombocytopenia - continue antibiotics - monitor H/H - monitor urine output, creatinine - rate control - daily sedation vacation to assess mental status - continue volume assist control - enteral feeds - DVT/GI prophylaxis - ICU monitoring - continue discussions regarding goals of care critical care time spent in reviewing chart, evaluating patient and formulating plan 35 min
--- NOTE | 2019-12-21 17:31 | PN ---
Physical Exam: SUBJECTIVE: Patient seen, no acute events overnight OBJECTIVE: Vital Signs Period Temp Pulse Resp BP Sys/Hair Pulse Ox Last 24 Hr 99 F-99.4 F 62-76 18-20 114-137/43-68 100-100 GENERAL: The patient is intubated and sedated EYES: PERRL, extraocular movements intact ENT: moist mucous membranes. LUNGS: Breath sounds equal, clear to auscultation bilaterally, no wheezes, no crackles HEART: Regular rate and rhythm, S1, S2 ABDOMEN: Soft, nontender, nondistended, normoactive bowel sounds, EXTREMITIES: 2+ pulses, warm, well-perfused, no edema. SKIN: multiple skin ulcerations throughout body, non cellulitic CBC, BMP 12/21/19 06:00 12/21/19 06:00 Active Medications Generic Name Dose Route Start Last Admin Trade Name Freq PRN Reason Stop Dose Admin Albuterol/Ipratropium 1 amp 12/07/19 13:25 12/08/19 02:38 Duoneb - NEB 1 amp Q4H PRN Administration SHORT OF BREATH/WHEEZING Artificial Tears 1 drop 12/15/19 07:31 12/17/19 10:22 Artificial Tears OU 1 drop BID PRN Administration DRY EYES Cefazolin Sodium 500 mg/ 50 mls @ 100 mls/hr 12/12/19 12:45 12/21/19 09:52 Dextrose IVPB 100 mls/hr BID MICHAEL Administration Meropenem 500 mg/ Dextrose 100 mls @ 200 mls/hr 12/12/19 12:45 12/21/19 12:11 IVPB 200 mls/hr Q12H MICHAEL Administration Fentanyl 500 mcg in 100 mls @ 21.614 mls/hr 12/17/19 01:15 12/21/19 01:00 Sublimaze Ivpb IVPB Not Given TITR MICHAEL Protocol 1 MCG/KG/HR Propofol 1,000,000 mcg in 100 mls @ 3.164 mls/hr 12/18/19 02:15 12/21/19 06:19 Diprivan - IVPB 25 mcg/kg/min TITR MICHAEL 15.819 mls/hr Administration Protocol 5 MCG/KG/MIN Insulin Aspart 1 vial 12/10/19 07:00 12/21/19 11:35 Novolog Vial Sliding Scale - SQ Not Given ACHS MICHAEL Protocol Levetiracetam 500 mg 12/09/19 10:00 12/21/19 09:51 Keppra Injection - IVPB 500 mg BID MICHAEL Administration Levothyroxine Sodium 20 mcg 12/09/19 10:00 12/21/19 09:51 Synthroid Injection - IVPUSH 20 mcg DAILY MICHAEL Administration Pantoprazole Sodium 40 mg 12/09/19 10:00 12/21/19 09:51 Protonix Iv IVPUSH 40 mg DAILY MICHAEL Administration Rosuvastatin Calcium 10 mg 12/07/19 22:00 12/20/19 21:16 Crestor - PO 10 mg HS MICHAEL Administration Scopolamine HBr 1 patch 12/17/19 22:00 12/20/19 21:17 Transderm-Scop - TD 1 patch Q72H MICHAEL Administration Sevelamer Carbonate 0.8 gm 12/16/19 17:30 12/21/19 12:10 Renvela Powder Packet - PO 0.8 gm TIDCM MICHAEL Administration Silver Sulfadiazine 1 applic 12/15/19 12:45 12/21/19 11:35 Silvadene - TP 1 applic BID MICHAEL Administration ASSESSMENT/PLAN: 79 y/o male PMH dCHF, afib, CAD s/p PCI, HTN, seizure d/o, CVA with RIGHT sided residual deficit, CKD, hypothyroidism, and bullous pemphigoid, admitted to the hospital for CHF exacerbation s/p cardiac arrest after aspiration #Neuro - intubated and sedated - seizure hx - continue Keppra - continue sedation vaction to assess mental status #Cardio - hx CHF, afib , CAD, s/p cardiac arrest x2 with timely ROSC - Echocardiogram LVEF 50-55%, no significant valve disease. - pressors as needed to maintain MAP > 65 #Pulm - Aspiration PNA - on cefazolin and meropenem #GI - GI ppx - protonix daily #heme - recent h/h drop, sp 3 units yesterday - continue to monitor hemoglobin daily - no acute source of bleed #Nephro - LETITIA s/p arrest, uremia - continue phoslo - avoid nephrotoxins - not a candidate for dialysis at this time #ID - aspiration PNA - continue meropenem #Endo - hx DM - continue SS - continue levothyroxine 20 mcg dialy FEN - on nephro tube feeds Dispo: monitor in ICU, continue family discussions Visit type - Emergency Visit Emergency Visit: No - New Patient This patient is new to me today: No - Critical Care Critical Care patient: Yes Total Critical Care Time (in minutes): 50 Critical Care Statement: The care of this patient involved high complexity decision making to prevent further life threatening deterioration of the patient's condition and/or to evaluate & treat vital organ system(s) failure or risk of failure. ATTENDING PHYSICIAN STATEMENT I saw and evaluated the patient. I reviewed the resident's note and discussed the case with the resident. I agree with the resident's findings and plan as documented. SUBJECTIVE: OBJECTIVE: ASSESSMENT AND PLAN:
[2019-12-21] MEDS: ROSUVASTATIN CA 10 MG TABLET (FP) PO SCH (22:18)
[2019-12-22] MEDS: MEROPENEM 500 MG in DEXTROSE 5%-WATER 100 ML IVPB SCH ×3 (00:20→23:54)
[2019-12-22] MEDS: INSULIN SLIDING SCALE (NOVOLOG) 1 VIAL SQ SCH ×4 (06:19→21:40)
[2019-12-22 07:35] LABS: HEMATOCRIT 27.7 % (35.4-49); HEMOGLOBIN 9.2 GM/dL (11.7-16.9); MCH 29.8 pg (25.7-33.7); MCHC 33.1 g/dl (32.0-35.9); MEAN CELL VOLUME 89.8 fl (80-96); MEAN PLT VOLUME 8.6 fl (7.5-11.1); PLATELET COUNT 255 K/MM3 (134-434); RBC 3.09 M/mm3 (4.00-5.60); RDW 15.6 % (11.9-15.9); WHITE BLOOD COUNT 10.5 K/mm3 (4.0-10.0)
--- NOTE | 2019-12-22 07:47 | PN ---
Physical Exam: SUBJECTIVE: Patient seen and examined. Remains sedated and intubated. No acute events overnight. Oral suctioning done this morning due to bloody secretions. OG tube found to be clogged with scant blood clots and was subsequently removed. Spoke with , Mandy, at bedside regarding goals of care and pt's overall condition. Vent: RR 18, TV 450, FiO2 50%, PEEP 5 Drips: 25 fentanyl, 25 propofol OBJECTIVE: Vital Signs Period Temp Pulse Resp BP Sys/Hair Pulse Ox Last 24 Hr 98 F-99.2 F 64-76 18-18 115-137/52-63 97-100 GENERAL: The patient is intubated and sedated ENT: moist mucous membranes, bloody secretion noted in oropharyngeal area LUNGS: Breath sounds equal, clear to auscultation bilaterally, no wheezes, no crackles HEART: Regular rate and rhythm, S1, S2 ABDOMEN: Soft, nontender, nondistended, normoactive bowel sounds, EXTREMITIES: 2+ pulses, warm, well-perfused, no edema. SKIN: multiple skin ulcerations throughout body, non cellulitic Laboratory Results - last 24 hr 12/21/19 12/21/19 12/21/19 06:00 11:34 17:33 Sodium 140 Potassium 3.9 Chloride 102 Carbon Dioxide 28 Anion Gap 10 BUN 127.8 H* Creatinine 3.0 H Est GFR (CKD-EPI)AfAm 21.58 Est GFR (CKD-EPI)NonAf 18.62 POC Glucometer 133 132 Random Glucose 146 H Calcium 7.8 L Phosphorus 4.9 Magnesium 2.0 Total Bilirubin 0.6 AST 21 ALT 7 L Alkaline Phosphatase 66 Total Protein 5.1 L Albumin 2.0 L 12/21/19 12/22/19 22:47 05:55 Sodium Potassium Chloride Carbon Dioxide Anion Gap BUN Creatinine Est GFR (CKD-EPI)AfAm Est GFR (CKD-EPI)NonAf POC Glucometer 127 111 Random Glucose Calcium Phosphorus Magnesium Total Bilirubin AST ALT Alkaline Phosphatase Total Protein Albumin Active Medications Generic Name Dose Route Start Last Admin Trade Name Freq PRN Reason Stop Dose Admin Albuterol/Ipratropium 1 amp 12/07/19 13:25 12/08/19 02:38 Duoneb - NEB 1 amp Q4H PRN Administration SHORT OF BREATH/WHEEZING Artificial Tears 1 drop 12/15/19 07:31 12/17/19 10:22 Artificial Tears OU 1 drop BID PRN Administration DRY EYES Cefazolin Sodium 500 mg/ 50 mls @ 100 mls/hr 12/12/19 12:45 12/21/19 22:25 Dextrose IVPB 100 mls/hr BID MICHAEL Administration Meropenem 500 mg/ Dextrose 100 mls @ 200 mls/hr 12/12/19 12:45 12/22/19 00:20 IVPB 200 mls/hr Q12H MICHAEL Administration Fentanyl 500 mcg in 100 mls @ 21.614 mls/hr 12/17/19 01:15 12/21/19 19:00 Sublimaze Ivpb IVPB 0.23 mcg/kg/hr TITR MICHAEL 5 mls/hr Titration Protocol 1 MCG/KG/HR Propofol 1,000,000 mcg in 100 mls @ 3.164 mls/hr 12/18/19 02:15 12/21/19 19:00 Diprivan - IVPB 25 mcg/kg/min TITR MICHAEL 15.819 mls/hr Titration Protocol 5 MCG/KG/MIN Insulin Aspart 1 vial 12/10/19 07:00 12/22/19 06:19 Novolog Vial Sliding Scale - SQ Not Given ACHS MICHAEL Protocol Levetiracetam 500 mg 12/09/19 10:00 12/21/19 22:18 Keppra Injection - IVPB 500 mg BID MICHAEL Administration Levothyroxine Sodium 20 mcg 12/09/19 10:00 12/21/19 09:51 Synthroid Injection - IVPUSH 20 mcg DAILY MICHAEL Administration Pantoprazole Sodium 40 mg 12/09/19 10:00 12/21/19 09:51 Protonix Iv IVPUSH 40 mg DAILY MICHAEL Administration Rosuvastatin Calcium 10 mg 12/07/19 22:00 12/21/19 22:18 Crestor - PO 10 mg HS MICHAEL Administration Scopolamine HBr 1 patch 12/17/19 22:00 12/20/19 21:17 Transderm-Scop - TD 1 patch Q72H MICHAEL Administration Sevelamer Carbonate 0.8 gm 12/16/19 17:30 12/21/19 19:24 Renvela Powder Packet - PO 0.8 gm TIDCM MICHAEL Administration Silver Sulfadiazine 1 applic 12/15/19 12:45 12/21/19 22:18 Silvadene - TP 1 applic BID MICHAEL Administration ASSESSMENT/PLAN: 79 y/o male PMH dCHF, afib, CAD s/p PCI, HTN, seizure d/o, CVA with right sided residual deficit, CKD, hypothyroidism, and bullous pemphigoid. He is now s/p cardiopulmonary arrest (on 12/09/2019) and possible aspiration pneumonia, admitted to the ICU due to acute hypoxic respiratory failure. He was anemic on 12/19 with Hb of 6.3 and received 3 U pRBCs. Hb has since stabilized (Hb 9.2 on 12/21) # Neuro: Seizure disorder h/o CVA with right-side residual deficit - Sedated on Propofol - On Keppra - Sedation holidays daily to assess mental status # Card: Afib diastolic CHF CAD HTN Anemia - Hb 9.2; Continue to monitor. Transfuse if Hb <8. - Hold Eliquis - On rosuvastatin # Pulm ARDS, aspiration PNA -Mechanically ventilated. Wean as tolerated. CXR showing minimal change from previous CXR. -On albuterol-ipratropium -Will not obtain daily CXR and ABG unless clinically significant change. Recent trend has been stable. # ID - Sputum culture grew pseudomonas. - c/w Cefazolin (12/11) and Meropenem (12/11) per ID recommendation. # Renal - Slight improvement in LETITIA on CKD; BUN may be disproportionately elevated due to upper GI bleed. - Continue monitoring I/O, BUN, Cr - Nephro consulted. D/C'ed tamsulosin due to pt having puri. - On Renvela - Lasix 40 mg IV push - one dose given today #Endo -ISS + BGM -On synthroid # Skin - Silvadene # FEN - Tube feeds currently being held because OG tube removed with blood clots, concerning for upper GI bleed #Lines, tubes, drains: 12/18 - [facility] 12/08 - ETT # Prophylaxis: - DVT: Hold eliquis; SCDs - GI: Protonix # Code Status / Family Conversation: - Full Code - Dr. Branch of palliative care consulted. Will f/u recommendations. - Spoke with , Mandy, at the bedside. Discussed patient's overall condition and inability to successfully wean off ventilatory settings. Started goals of care discussion. would like to speak to their son, Cj, before making any decisions. (Mandy): [phone] Son (Cj): [phone] Visit type - Emergency Visit Emergency Visit: Yes ED Registration Date: 12/03/19 Care time: The patient presented to the Emergency Department on the above date and was hospitalized for further evaluation of their emergent condition. - New Patient This patient is new to me today: Yes Date on this admission: 12/22/19 - Critical Care Critical Care patient: Yes Total Critical Care Time (in minutes): 37 Critical Care Statement: The care of this patient involved high complexity decision making to prevent further life threatening deterioration of the patient's condition and/or to evaluate & treat vital organ system(s) failure or risk of failure. ATTENDING PHYSICIAN STATEMENT I saw and evaluated the patient. I reviewed the resident's note and discussed the case with the resident. I agree with the resident's findings and plan as documented. SUBJECTIVE: OBJECTIVE: ASSESSMENT AND PLAN:
[2019-12-22 08:01] LABS: BILIRUBIN,TOTAL 0.7 mg/dL (0.2-1); CALCIUM 7.7 mg/dL (8.5-10.1); CREATININE 2.8 mg/dL (0.55-1.3); MAGNESIUM 2.1 mg/dL (1.8-2.4); PHOSPHOROUS 4.9 mg/dL (2.5-4.9); POTASSIUM 4.1 mmol/L (3.5-5.1); TOT PROT 5.4 g/dl (6.4-8.2)
[2019-12-22] MEDS: FENTANYL NS IVPB 500 MCG/100 ML BAG IVPB SCH ×3 (08:15→20:45)
[2019-12-22] MEDS ORDERED: PT OWN MED DRAWER 7, Y5N ONE ×4 (08:17→22:17)
[2019-12-22] MEDS: SEVELAMER CARBONATE 0.8 GM POWDER PACKET PO SCH ×4 (08:27→18:36)
[2019-12-22] MEDS: PROPOFOL 1,000,000 MCG/100 ML VIAL IVPB SCH ×2 (08:27→20:45)
[2019-12-22 08:32] LABS: BLOOD UREA NITROGEN 117.1 mg/dL (7-18)
[2019-12-22] MEDS: PANTOPRAZOLE SODIUM 40 MG VIAL IVPUSH SCH (09:29)
[2019-12-22] MEDS: levETIRAcetam 500 MG/5 ML INJECTION VIAL IVPB SCH ×2 (09:29→22:12)
[2019-12-22] MEDS: CEFAZOLIN 500 MG in DEXTROSE 5%-WATER - 50 ML IVPB SCH ×2 (09:29→21:32)
[2019-12-22] MEDS: SILVER SULFADIAZINE 1% TOP CREAM 50 GM JAR TP SCH ×2 (09:29→21:37)
[2019-12-22] MEDS: LEVOTHYROXINE SODIUM 100 MCG VIAL IVPUSH SCH (12:00)
--- NOTE | 2019-12-22 12:52 | PN ---
Teaching Attending Note Name of Resident: Kelly Orellana ATTENDING PHYSICIAN STATEMENT I saw and evaluated the patient. I reviewed the resident's note and discussed the case with the resident. I agree with the resident's findings and plan as documented. SUBJECTIVE: Pt seen and examined in the ICU. Remains intubated, sedated. agitated off se dation. No pressors. Vented on volume assist control with 40% FiO2. OBJECTIVE: Vital Signs Period Temp Pulse Resp BP Sys/Hair Pulse Ox Last 24 Hr 98 F-99 F 64-76 18-21 117-137/52-66 95-100 Intake & Output 12/19/19 12/20/19 12/21/19 12/22/19 23:59 23:59 23:59 23:59 Intake Total 1964.8 4162.7 3579.9 240 Output Total 1600 2150 3400 Balance 364.8 2012.7 179.9 240 Weight 106.1 kg 106 kg 104.8 kg 105.878 kg Gen: intubated, sedated Heart: RRR Lung; scattered rhonchi Abd: soft, nontender Ext: + edema CBC, BMP 12/22/19 05:45 12/22/19 05:45 Active Medications Albuterol/Ipratropium (Duoneb -) 1 amp NEB Q4H PRN PRN Reason: SHORT OF BREATH/WHEEZING Last Admin: 12/08/19 02:38 Dose: 1 amp Documented by: Artificial Tears (Artificial Tears) 1 drop OU BID PRN PRN Reason: DRY EYES Last Admin: 12/17/19 10:22 Dose: 1 drop Documented by: Cefazolin Sodium 500 mg/ (Dextrose) 50 mls @ 100 mls/hr IVPB BID MICHAEL Last Admin: 12/22/19 09:29 Dose: 100 mls/hr Documented by: Meropenem 500 mg/ Dextrose 100 mls @ 200 mls/hr IVPB Q12H MICHAEL Last Admin: 12/22/19 00:20 Dose: 200 mls/hr Documented by: Fentanyl (Sublimaze Ivpb) 500 mcg in 100 mls @ 21.614 mls/hr IVPB TITR MICHAEL; Protocol Last Admin: 12/22/19 08:15 Dose: Not Given Documented by: Propofol (Diprivan -) 1,000,000 mcg in 100 mls @ 3.164 mls/hr IVPB TITR [facility]; Protocol Last Admin: 12/22/19 08:27 Dose: 25 mcg/kg/min, 15.819 mls/hr Documented by: Insulin Aspart (Novolog Vial Sliding Scale -) 1 vial SQ ACHS [facility]; Protocol Last Admin: 12/22/19 06:19 Dose: Not Given Documented by: Levetiracetam (Keppra Injection -) 500 mg IVPB BID [facility] Last Admin: 12/22/19 09:29 Dose: 500 mg Documented by: Levothyroxine Sodium (Synthroid Injection -) 20 mcg IVPUSH DAILY [facility] Last Admin: 12/21/19 09:51 Dose: 20 mcg Documented by: Pantoprazole Sodium (Protonix Iv) 40 mg IVPUSH DAILY [facility] Last Admin: 12/22/19 09:29 Dose: 40 mg Documented by: Rosuvastatin Calcium (Crestor -) 10 mg PO HS [facility] Last Admin: 12/21/19 22:18 Dose: 10 mg Documented by: Scopolamine HBr (Transderm-Scop -) 1 patch TD Q72H [facility] Last Admin: 12/20/19 21:17 Dose: 1 patch Documented by: Sevelamer Carbonate (Renvela Powder Packet -) 0.8 gm PO TIDCM [facility] Last Admin: 12/22/19 08:57 Dose: Not Given Documented by: Silver Sulfadiazine (Silvadene -) 1 applic TP BID [facility] Last Admin: 12/22/19 09:29 Dose: 1 applic Documented by: ASSESSMENT AND PLAN: s/p Cardiopulmonary Arrest Acute Hypoxic and Hypercapneic Respiratory Failure Likely Aspiration Pneumonia Septic Shock Acute on Chronic Renal Failure Lactic Acidosis Bullous Pemphigoid CAD LV Diastolic Dysfunction Atrial Fibrillation Seizure Disorder h/o CVA Hypothyroidism Anemia Thrombocytopenia - continue antibiotics - monitor H/H - monitor urine output, creatinine - rate control - daily sedation vacation to assess mental status - continue volume assist control - enteral feeds - DVT/GI prophylaxis - ICU monitoring - continue discussions regarding goals of care, recommend compassionate extubation critical care time spent in reviewing chart, evaluating patient and formulating plan 35 min
--- NOTE | 2019-12-22 13:05 | PN ---
Progress Note, Physician Chief Complaint: s/p Cardiopulmonary Arrest Acute Hypoxic and Hypercapneic Respiratory Failure Likely Aspiration Pneumonia Septic Shock Acute on Chronic Renal Failure Lactic Acidosis Bullous Pemphigoid CAD LV Diastolic Dysfunction Atrial Fibrillation Seizure Disorder h/o CVA Hypothyroidism Anemia Thrombocytopenia History of Present Illness: Remains intubated in ICU No events overnight On eliquis for Pafib - Current Medication List Current Medications: Active Medications Albuterol/Ipratropium (Duoneb -) 1 amp NEB Q4H PRN PRN Reason: SHORT OF BREATH/WHEEZING Last Admin: 12/08/19 02:38 Dose: 1 amp Documented by: Artificial Tears (Artificial Tears) 1 drop OU BID PRN PRN Reason: DRY EYES Last Admin: 12/17/19 10:22 Dose: 1 drop Documented by: Cefazolin Sodium 500 mg/ (Dextrose) 50 mls @ 100 mls/hr IVPB BID [facility] Last Admin: 12/22/19 09:29 Dose: 100 mls/hr Documented by: Meropenem 500 mg/ Dextrose 100 mls @ 200 mls/hr IVPB Q12H MICHAEL Last Admin: 12/22/19 00:20 Dose: 200 mls/hr Documented by: Fentanyl (Sublimaze Ivpb) 500 mcg in 100 mls @ 21.614 mls/hr IVPB TITR [facility]; Protocol Last Admin: 12/22/19 08:15 Dose: Not Given Documented by: Propofol (Diprivan -) 1,000,000 mcg in 100 mls @ 3.164 mls/hr IVPB TITR [facility]; Protocol Last Admin: 12/22/19 08:27 Dose: 25 mcg/kg/min, 15.819 mls/hr Documented by: Insulin Aspart (Novolog Vial Sliding Scale -) 1 vial SQ ACHS MICHAEL; Protocol Last Admin: 12/22/19 06:19 Dose: Not Given Documented by: Levetiracetam (Keppra Injection -) 500 mg IVPB BID [facility] Last Admin: 12/22/19 09:29 Dose: 500 mg Documented by: Levothyroxine Sodium (Synthroid Injection -) 20 mcg IVPUSH DAILY [facility] Last Admin: 12/21/19 09:51 Dose: 20 mcg Documented by: Pantoprazole Sodium (Protonix Iv) 40 mg IVPUSH DAILY [facility] Last Admin: 12/22/19 09:29 Dose: 40 mg Documented by: Rosuvastatin Calcium (Crestor -) 10 mg PO HS [facility] Last Admin: 12/21/19 22:18 Dose: 10 mg Documented by: Scopolamine HBr (Transderm-Scop -) 1 patch TD Q72H [facility] Last Admin: 12/20/19 21:17 Dose: 1 patch Documented by: Sevelamer Carbonate (Renvela Powder Packet -) 0.8 gm PO TIDCM [facility] Last Admin: 12/22/19 08:57 Dose: Not Given Documented by: Silver Sulfadiazine (Silvadene -) 1 applic TP BID [facility] Last Admin: 12/22/19 09:29 Dose: 1 applic Documented by: - Objective Vital Signs: Vital Signs Temperature 98.1 F 12/22/19 12:00 Pulse Rate 74 12/22/19 12:00 Respiratory Rate 18 12/22/19 12:00 Blood Pressure 119/52 L 12/22/19 12:00 O2 Sat by Pulse Oximetry (%) 95 12/22/19 11:15 Constitutional: Yes: Well Nourished, No Distress, Calm Cardiovascular: Yes: Regular Rate and Rhythm Respiratory: Yes: Regular, Mechanically Ventilated, Rhonchi Gastrointestinal: Yes: Normal Bowel Sounds, Soft Genitourinary: Yes: [place] Present Neurological: Yes: Other (sedated) Labs: CBC, BMP 12/22/19 05:45 12/22/19 05:45 INR, PTT INR 1.29 (0.83-1.09) H 12/15/19 11:01 Problem List - Problems (1) Acute respiratory failure Assessment/Plan: -Mech vent -Pulmonary consult -IV Cefazolin + meropenem -Enteral feeds -Bronchodilators Problems reviewed: Yes Code(s): J96.00 - ACUTE RESPIRATORY FAILURE, UNSP W HYPOXIA OR HYPERCAPNIA (2) Bullous pemphigoid Assessment/Plan: -On cellcept -Silvadene top Problems reviewed: Yes Code(s): L12.0 - BULLOUS PEMPHIGOID (3) Acute on chronic renal insufficiency Assessment/Plan: -Nephrology on board -monitor daily labs Problems reviewed: Yes Code(s): N28.9 - DISORDER OF KIDNEY AND URETER, UNSPECIFIED; N18.9 - CHRONIC KIDNEY DISEASE, UNSPECIFIED (4) Pneumonia Assessment/Plan: -Likely aspiration -CXR reviewed -Repeat COVID 19 PCR negative -IV abx -ID consult -Lactic acidosis noted Problems reviewed: Yes Code(s): J18.9 - PNEUMONIA, UNSPECIFIED ORGANISM (5) Afib Assessment/Plan: -Chronic, rate controlled -D/C heparin -Eliquis 2.5 mg po bid for age>80, Cr>1.5 -Transfuse if needed Problems reviewed: Yes Code(s): I48.91 - UNSPECIFIED ATRIAL FIBRILLATION (6) Anemia Assessment/Plan: -Chronic -workup last admission was negative -hematology consult -Transfuse only if hg<7.0 to avoid fluid overload. Problems reviewed: Yes Code(s): D64.9 - ANEMIA, UNSPECIFIED (7) Bacteremia Assessment/Plan: -Repeat BC negative -IV abx -ID on board Problems reviewed: Yes Code(s): R78.81 - BACTEREMIA Assessment/Plan See problem list Ongoing discussion with family regarding comfort care. GI PPX Pt tolerating enteral feeds
[2019-12-22] MEDS ORDERED: MEROPENEM 500 MG VIAL (RESTRICTED TO ID) IVPB ONE ×2 (13:37→23:50)
[2019-12-22] MEDS ORDERED: DEXTROSE 5%-WATER 100 ML IVPB ONE ×2 (13:38→23:50)
--- NOTE | 2019-12-22 13:46 | PN ---
Progress Note, Physician History of Present Illness: REMAINS INTUBATED IN ICU AFEBRILE WBC 10.5 AZOTEMIA IMPROVED BC MSSA (12/06) BC (12/07) NO GROWTH - Current Medication List Current Medications: Active Medications Albuterol/Ipratropium (Duoneb -) 1 amp NEB Q4H PRN PRN Reason: SHORT OF BREATH/WHEEZING Last Admin: 12/08/19 02:38 Dose: 1 amp Documented by: Artificial Tears (Artificial Tears) 1 drop OU BID PRN PRN Reason: DRY EYES Last Admin: 12/17/19 10:22 Dose: 1 drop Documented by: Cefazolin Sodium 500 mg/ (Dextrose) 50 mls @ 100 mls/hr IVPB BID [facility] Last Admin: 12/22/19 09:29 Dose: 100 mls/hr Documented by: Meropenem 500 mg/ Dextrose 100 mls @ 200 mls/hr IVPB Q12H MICHAEL Last Admin: 12/22/19 00:20 Dose: 200 mls/hr Documented by: Fentanyl (Sublimaze Ivpb) 500 mcg in 100 mls @ 21.614 mls/hr IVPB TITR MICHAEL; Protocol Last Admin: 12/22/19 08:15 Dose: Not Given Documented by: Propofol (Diprivan -) 1,000,000 mcg in 100 mls @ 3.164 mls/hr IVPB TITR MICHAEL; Protocol Last Admin: 12/22/19 08:27 Dose: 25 mcg/kg/min, 15.819 mls/hr Documented by: Insulin Aspart (Novolog Vial Sliding Scale -) 1 vial SQ ACHS MICHAEL; Protocol Last Admin: 12/22/19 12:20 Dose: Not Given Documented by: Levetiracetam (Keppra Injection -) 500 mg IVPB BID [facility] Last Admin: 12/22/19 09:29 Dose: 500 mg Documented by: Levothyroxine Sodium (Synthroid Injection -) 20 mcg IVPUSH DAILY [facility] Last Admin: 12/21/19 09:51 Dose: 20 mcg Documented by: Pantoprazole Sodium (Protonix Iv) 40 mg IVPUSH DAILY [facility] Last Admin: 12/22/19 09:29 Dose: 40 mg Documented by: Rosuvastatin Calcium (Crestor -) 10 mg PO HS [facility] Last Admin: 12/21/19 22:18 Dose: 10 mg Documented by: Scopolamine HBr (Transderm-Scop -) 1 patch TD Q72H [facility] Last Admin: 12/20/19 21:17 Dose: 1 patch Documented by: Sevelamer Carbonate (Renvela Powder Packet -) 0.8 gm PO TIDCM [facility] Last Admin: 12/22/19 13:36 Dose: Not Given Documented by: Silver Sulfadiazine (Silvadene -) 1 applic TP BID [facility] Last Admin: 12/22/19 09:29 Dose: 1 applic Documented by: - Objective Vital Signs: Vital Signs Temperature 98.1 F 12/22/19 12:00 Pulse Rate 74 12/22/19 12:00 Respiratory Rate 18 12/22/19 12:00 Blood Pressure 119/52 L 12/22/19 12:00 O2 Sat by Pulse Oximetry (%) 95 12/22/19 11:15 Constitutional: Yes: No Distress Eyes: Yes: Conjunctiva Clear Cardiovascular: Yes: Regular Rate and Rhythm, S1, S2 Respiratory: Yes: Mechanically Ventilated Gastrointestinal: Yes: Normal Bowel Sounds, Soft, Abdomen, Obese. No: Tenderness Edema: Yes Integumentary: Yes: Other (DISSEMINATED ULCERATIVE SKIN LESIONS) Labs: CBC, BMP 12/22/19 05:45 12/22/19 05:45 INR, PTT INR 1.29 (0.83-1.09) H 12/15/19 11:01 Assessment/Plan + BLOOD C/S MSSA PROBABLE SKIN SOURCE ACUTE RESP FAILURE PNEUMOMIA + SPUTUM C/S MEROPENEM AZOTEMIA PLANTAR ULCER HEALED BULOUS PEMPHIGOID CEFAZOLIN/ MEROPENEM ADJUSTED FOR RENAL FAILURE REPEAT BC NO GROWTH ECHO NO VEGETATIONS VENTILATORY/ HEMODYNAMIC SUPPORT PROGNOSIS POOR
--- NOTE | 2019-12-22 13:50 | PN ---
Progress Note, Physician History of Present Illness: Pt seen and examined at bedside. He remains in the ICU. He remains intubated. - Current Medication List Current Medications: Active Medications Albuterol/Ipratropium (Duoneb -) 1 amp NEB Q4H PRN PRN Reason: SHORT OF BREATH/WHEEZING Last Admin: 12/08/19 02:38 Dose: 1 amp Documented by: Artificial Tears (Artificial Tears) 1 drop OU BID PRN PRN Reason: DRY EYES Last Admin: 12/17/19 10:22 Dose: 1 drop Documented by: Cefazolin Sodium 500 mg/ (Dextrose) 50 mls @ 100 mls/hr IVPB BID MICHAEL Last Admin: 12/22/19 09:29 Dose: 100 mls/hr Documented by: Meropenem 500 mg/ Dextrose 100 mls @ 200 mls/hr IVPB Q12H [facility] Last Admin: 12/22/19 00:20 Dose: 200 mls/hr Documented by: Fentanyl (Sublimaze Ivpb) 500 mcg in 100 mls @ 21.614 mls/hr IVPB TITR [facility]; Protocol Last Admin: 12/22/19 08:15 Dose: Not Given Documented by: Propofol (Diprivan -) 1,000,000 mcg in 100 mls @ 3.164 mls/hr IVPB TITR [facility]; Protocol Last Admin: 12/22/19 08:27 Dose: 25 mcg/kg/min, 15.819 mls/hr Documented by: Insulin Aspart (Novolog Vial Sliding Scale -) 1 vial SQ ACHS MICHAEL; Protocol Last Admin: 12/22/19 12:20 Dose: Not Given Documented by: Levetiracetam (Keppra Injection -) 500 mg IVPB BID [facility] Last Admin: 12/22/19 09:29 Dose: 500 mg Documented by: Levothyroxine Sodium (Synthroid Injection -) 20 mcg IVPUSH DAILY [facility] Last Admin: 12/21/19 09:51 Dose: 20 mcg Documented by: Pantoprazole Sodium (Protonix Iv) 40 mg IVPUSH DAILY [facility] Last Admin: 12/22/19 09:29 Dose: 40 mg Documented by: Rosuvastatin Calcium (Crestor -) 10 mg PO HS [facility] Last Admin: 12/21/19 22:18 Dose: 10 mg Documented by: Scopolamine HBr (Transderm-Scop -) 1 patch TD Q72H [facility] Last Admin: 12/20/19 21:17 Dose: 1 patch Documented by: Sevelamer Carbonate (Renvela Powder Packet -) 0.8 gm PO TIDCM [facility] Last Admin: 12/22/19 13:36 Dose: Not Given Documented by: Silver Sulfadiazine (Silvadene -) 1 applic TP BID [facility] Last Admin: 12/22/19 09:29 Dose: 1 applic Documented by: - Objective Vital Signs: Vital Signs Temperature 98.1 F 12/22/19 12:00 Pulse Rate 74 12/22/19 12:00 Respiratory Rate 18 12/22/19 12:00 Blood Pressure 119/52 L 12/22/19 12:00 O2 Sat by Pulse Oximetry (%) 95 12/22/19 11:15 Constitutional: Yes: Calm Eyes: Yes: Conjunctiva Clear HENT: Yes: Atraumatic Cardiovascular: Yes: S1, S2 Respiratory: Yes: Mechanically Ventilated Gastrointestinal: Yes: Soft Genitourinary: Yes: Duvall Present, Incontinence Musculoskeletal: Yes: Muscle Weakness Edema: Yes Edema: LLE: Trace, RLE: Trace Neurological: Yes: Lethargy Labs: CBC, BMP 12/22/19 05:45 12/22/19 05:45 INR, PTT INR 1.29 (0.83-1.09) H 12/15/19 11:01 - ....Imaging Chest X-ray: Report Reviewed Problem List - Problems (1) Acute respiratory failure Code(s): J96.00 - ACUTE RESPIRATORY FAILURE, UNSP W HYPOXIA OR HYPERCAPNIA (2) Bullous pemphigoid Code(s): L12.0 - BULLOUS PEMPHIGOID Assessment/Plan Current Medications Generic Name Dose Route Start Last Admin Trade Name Freq PRN Reason Stop Dose Admin Albuterol/Ipratropium 1 amp 12/07/19 13:25 12/08/19 02:38 Duoneb - NEB 1 amp Q4H PRN Administration SHORT OF BREATH/WHEEZING Artificial Tears 1 drop 12/15/19 07:31 12/17/19 10:22 Artificial Tears OU 1 drop BID PRN Administration DRY EYES Cefazolin Sodium 500 mg/ 50 mls @ 100 mls/hr 12/12/19 12:45 12/22/19 09:29 Dextrose IVPB 100 mls/hr BID MICHAEL Administration Meropenem 500 mg/ Dextrose 100 mls @ 200 mls/hr 12/12/19 12:45 12/22/19 00:20 IVPB 200 mls/hr Q12H MICHAEL Administration Fentanyl 500 mcg in 100 mls @ 21.614 mls/hr 12/17/19 01:15 12/22/19 08:15 Sublimaze Ivpb IVPB Not Given TITR MICHAEL Protocol 1 MCG/KG/HR Propofol 1,000,000 mcg in 100 mls @ 3.164 mls/hr 12/18/19 02:15 12/22/19 08:27 Diprivan - IVPB 25 mcg/kg/min TITR [facility] 15.819 mls/hr Administration Protocol 5 MCG/KG/MIN Insulin Aspart 1 vial 12/10/19 07:00 12/22/19 12:20 Novolog Vial Sliding Scale - SQ Not Given ACHS MICHAEL Protocol Levetiracetam 500 mg 12/09/19 10:00 12/22/19 09:29 Keppra Injection - IVPB 500 mg BID MICHAEL Administration Levothyroxine Sodium 20 mcg 12/09/19 10:00 12/21/19 09:51 Synthroid Injection - IVPUSH 20 mcg DAILY MICHAEL Administration Pantoprazole Sodium 40 mg 12/09/19 10:00 12/22/19 09:29 Protonix Iv IVPUSH 40 mg DAILY MICHAEL Administration Rosuvastatin Calcium 10 mg 12/07/19 22:00 12/21/19 22:18 Crestor - PO 10 mg HS MICHAEL Administration Scopolamine HBr 1 patch 12/17/19 22:00 12/20/19 21:17 Transderm-Scop - TD 1 patch Q72H MICHAEL Administration Sevelamer Carbonate 0.8 gm 12/16/19 17:30 12/22/19 13:36 Renvela Powder Packet - PO Not Given TIDCM MICHAEL Silver Sulfadiazine 1 applic 12/15/19 12:45 12/22/19 09:29 Silvadene - TP 1 applic BID MICHAEL Administration Impression 1. CKD 2. CHF 3. BPH 4. a. fib 5. CAD 6. epilepsy 7. proteinuria 8. anemia 9. foot ulcer 10. abd wall cellulitis 11. bullous pemphigoid 12. LETITIA 13. hyperkalemia 14. cardiac arrest 15. resp failure on vent 16. r/o aspiration Plan - renal function continues to improve - cont vent support - will give a dose of lasix - repeat labs in am - discuss GOC with family - cont to monitor - lasix prn for edema - cont cellcept for bullous pemphigoid - weaning per pulm - daily sedation vacation - maintain map 65 - monitor urine output - letitia on ckd likely atn post cardiac arrest
[2019-12-22] MEDS ORDERED: FUROSEMIDE 40 MG/4 ML INJECTABLE VIAL IVPUSH ONE (14:00)
--- NOTE | 2019-12-22 17:00 | PN ---
Progress Note (short form) - Note Progress Note: Palliative care f/up Pt is an 79 y/o male with chronic anemia, diastolic CHF (EF 50-55% 12/05), a-fib (on Eliquis), CAD s/p PCI, HTN, HLD, CVA (right side residual weakness), seizure disorder, CKD stage 4, hypothyroidism, bullous pemphigoid (started 03/05), colon cancer s/p rt hemicolectomy, and right foot ulcer who had prolonged hospitalization 11/12- 12/02 for infected rt foot ulcer and anemia - STR recommended but patient and family opted for [facility]. He was discharged and came back the same day for generalized weakness. At baseline he uses electric w/c but able to transfer in and out of it but unable to get out of the car this time with assistance from his . He recently was discharged from a nursing facility for rehab before being admitted for 3 weeks at [facility]. He was previously wheelchair-bound but able to do some ADLs independently. He agreed for STR rehab and dc was planned when patient had a rapid response on 12/08, aspiration suspected. He has been intubated since then. He was treated with pressors, a/bs- now off pressors. He has remained intubated and on mechanical ventilator since. He is on enteral feeds. Goals of care discussion ongoing. Remains in ICU intubated on mechanical ventilator off pressors sedated as pt gets agitated off sedation VSS unresponsive on 40% Fio2 ++ edema ++ multiple skin ulcerations labs reviewed s/p 3 U PRBC bun/cr 117/2.8 Respiratory failure on mechanical ventilator off pressors aspiration pneumonia on t/feeds CHF ac on CKD CAD A Fib Chr anemia seizure disorder Patient is an elderly gentleman with poor baseline functional status, CHF and CKD stage 4 now s/p aspiration pneumonitis, cardiac arrest and respiratory failure, hx of A Fib off eliquis secondary to recent GI bleed, hx of CVA. Prognosis is poor. Patient with multiple comorbidities and poor functional status at baseline. CPR would probably be medically futile. Discussions ongoing with family regarding GOC. Pt's to discuss with her son. Will follow. Problem List - Problems (1) Acute respiratory failure Code(s): J96.00 - ACUTE RESPIRATORY FAILURE, UNSP W HYPOXIA OR HYPERCAPNIA (2) Bacteremia Code(s): R78.81 - BACTEREMIA (3) Bullous pemphigoid Code(s): L12.0 - BULLOUS PEMPHIGOID (4) Acute on chronic renal insufficiency Code(s): N28.9 - DISORDER OF KIDNEY AND URETER, UNSPECIFIED; N18.9 - CHRONIC KIDNEY DISEASE, UNSPECIFIED (5) Acute on chronic systolic congestive heart failure Code(s): I50.23 - ACUTE ON CHRONIC SYSTOLIC (CONGESTIVE) HEART FAILURE (6) Afib Code(s): I48.91 - UNSPECIFIED ATRIAL FIBRILLATION (7) CHF (congestive heart failure) Code(s): I50.9 - HEART FAILURE, UNSPECIFIED
[2019-12-22] MEDS: ROSUVASTATIN CA 10 MG TABLET (FP) PO SCH (21:37)
[2019-12-23] MEDS: FENTANYL NS IVPB 500 MCG/100 ML BAG IVPB SCH ×3 (02:25→22:54)
[2019-12-23] MEDS: PROPOFOL 1,000,000 MCG/100 ML VIAL IVPB SCH ×2 (02:26→09:35)
[2019-12-23] MEDS: INSULIN SLIDING SCALE (NOVOLOG) 1 VIAL SQ SCH ×4 (06:20→21:54)
[2019-12-23 06:49] LABS: HEMATOCRIT 26.5 % (35.4-49); HEMOGLOBIN 8.7 GM/dL (11.7-16.9); MCH 29.5 pg (25.7-33.7); MEAN CELL VOLUME 89.5 fl (80-96); MEAN PLT VOLUME 8.3 fl (7.5-11.1); PLATELET COUNT 259 K/MM3 (134-434); RBC 2.96 M/mm3 (4.00-5.60); RDW 15.7 % (11.9-15.9); WHITE BLOOD COUNT 7.4 K/mm3 (4.0-10.0)
[2019-12-23 07:16] LABS: ALBUMIN 1.8 g/dl (3.4-5.0); BILIRUBIN,TOTAL 0.8 mg/dL (0.2-1); CALCIUM 7.5 mg/dL (8.5-10.1); CREATININE 2.6 mg/dL (0.55-1.3); MAGNESIUM 1.8 mg/dL (1.8-2.4); PHOSPHOROUS 4.6 mg/dL (2.5-4.9); POTASSIUM 3.8 mmol/L (3.5-5.1); TOT PROT 5.1 g/dl (6.4-8.2)
--- NOTE | 2019-12-23 07:16 | PN ---
Physical Exam: SUBJECTIVE: Patient seen and examined. Remains sedated and intubated. No acute events overnight. Pt becomes agitated off sedation. Continuing to have GOC discussion with family. Volume Assist Control Vent: RR 18, TV 450, FiO2 40%, PEEP 5 Drips: 100 fentanyl, 25 propofol OBJECTIVE: Vital Signs Period Temp Pulse Resp BP Sys/Hair Pulse Ox Last 24 Hr 97.5 F-98.5 F 59-74 18-21 104-132/51-67 95-100 GENERAL: The patient is intubated and sedated ENT: moist mucous membranes, bloody secretion noted in oropharyngeal area LUNGS: Breath sounds equal, clear to auscultation bilaterally, no wheezes, no crackles HEART: Regular rate and rhythm, S1, S2 ABDOMEN: Soft, nontender, nondistended, normoactive bowel sounds, EXTREMITIES: 2+ pulses, warm, well-perfused, no edema. SKIN: multiple skin ulcerations throughout body, non cellulitic Laboratory Results - last 24 hr 12/22/19 12/22/19 12/22/19 05:45 05:45 12:20 WBC 10.5 H RBC 3.09 L Hgb 9.2 L Hct 27.7 L MCV 89.8 MCH 29.8 MCHC 33.1 RDW 15.6 Plt Count 255 MPV 8.6 Sodium 139 Potassium 4.1 Chloride 101 Carbon Dioxide 27 Anion Gap 11 BUN 117.1 H* Creatinine 2.8 H Est GFR (CKD-EPI)AfAm 23.46 Est GFR (CKD-EPI)NonAf 20.24 POC Glucometer 107 Random Glucose 107 H Calcium 7.7 L Phosphorus 4.9 Magnesium 2.1 Total Bilirubin 0.7 AST 36 ALT 10 L Alkaline Phosphatase 85 Total Protein 5.4 L Albumin 2.0 L 12/22/19 12/22/19 12/23/19 17:11 21:39 05:15 WBC 7.4 RBC 2.96 L Hgb 8.7 L Hct 26.5 L MCV 89.5 MCH 29.5 MCHC 33.0 RDW 15.7 Plt Count 259 MPV 8.3 Sodium Potassium Chloride Carbon Dioxide Anion Gap BUN Creatinine Est GFR (CKD-EPI)AfAm Est GFR (CKD-EPI)NonAf POC Glucometer 106 85 Random Glucose Calcium Phosphorus Magnesium Total Bilirubin AST ALT Alkaline Phosphatase Total Protein Albumin 12/23/19 06:15 WBC RBC Hgb Hct MCV MCH MCHC RDW Plt Count MPV Sodium Potassium Chloride Carbon Dioxide Anion Gap BUN Creatinine Est GFR (CKD-EPI)AfAm Est GFR (CKD-EPI)NonAf POC Glucometer 86 Random Glucose Calcium Phosphorus Magnesium Total Bilirubin AST ALT Alkaline Phosphatase Total Protein Albumin Active Medications Generic Name Dose Route Start Last Admin Trade Name Freq PRN Reason Stop Dose Admin Albuterol/Ipratropium 1 amp 12/07/19 13:25 12/08/19 02:38 Duoneb - NEB 1 amp Q4H PRN Administration SHORT OF BREATH/WHEEZING Artificial Tears 1 drop 12/15/19 07:31 12/17/19 10:22 Artificial Tears OU 1 drop BID PRN Administration DRY EYES Cefazolin Sodium 500 mg/ 50 mls @ 100 mls/hr 12/12/19 12:45 12/22/19 21:32 Dextrose IVPB 100 mls/hr BID MICHAEL Administration Meropenem 500 mg/ Dextrose 100 mls @ 200 mls/hr 12/12/19 12:45 12/22/19 23:54 IVPB 200 mls/hr Q12H MICHAEL Administration Fentanyl 500 mcg in 100 mls @ 21.614 mls/hr 12/17/19 01:15 12/23/19 06:45 Sublimaze Ivpb IVPB 0.93 mcg/kg/hr TITR MICHAEL 20 mls/hr Administration Protocol 1 MCG/KG/HR Propofol 1,000,000 mcg in 100 mls @ 3.164 mls/hr 12/18/19 02:15 12/23/19 02:26 Diprivan - IVPB 25 mcg/kg/min TITR MICHAEL 15.819 mls/hr Administration Protocol 5 MCG/KG/MIN Insulin Aspart 1 vial 12/10/19 07:00 12/23/19 06:20 Novolog Vial Sliding Scale - SQ Not Given ACHS MICHAEL Protocol Levetiracetam 500 mg 12/09/19 10:00 12/22/19 22:12 Keppra Injection - IVPB 500 mg BID MICHAEL Administration Levothyroxine Sodium 20 mcg 12/09/19 10:00 12/22/19 12:00 Synthroid Injection - IVPUSH 20 mcg DAILY MICHAEL Administration Pantoprazole Sodium 40 mg 12/09/19 10:00 12/22/19 09:29 Protonix Iv IVPUSH 40 mg DAILY MICHAEL Administration Rosuvastatin Calcium 10 mg 12/07/19 22:00 12/22/19 21:37 Crestor - PO Not Given HS MICHAEL Scopolamine HBr 1 patch 12/17/19 22:00 12/20/19 21:17 Transderm-Scop - TD 1 patch Q72H MICHAEL Administration Sevelamer Carbonate 0.8 gm 12/16/19 17:30 12/22/19 18:36 Renvela Powder Packet - PO Not Given TIDCM MICHAEL Silver Sulfadiazine 1 applic 12/15/19 12:45 12/22/19 21:37 Silvadene - TP 1 applic BID MICHAEL Administration ASSESSMENT/PLAN: 79 y/o male PMH dCHF, afib, CAD s/p PCI, HTN, seizure d/o, CVA with right sided residual deficit, CKD, hypothyroidism, and bullous pemphigoid. He is now s/p cardiopulmonary arrest (on 12/09/2019) and possible aspiration pneumonia, admitted to the ICU due to acute hypoxic respiratory failure. He was anemic on 12/19 with Hb of 6.3 and received 3 U pRBCs. Hb has since stabilized. # Neuro: Seizure disorder h/o CVA with right-side residual deficit - Sedated on Propofol - On Keppra - Sedation holidays daily to assess mental status # Card: Afib diastolic CHF CAD HTN Anemia - Hb 8.7; Continue to monitor. Transfuse if Hb <8. - Hold Eliquis - On rosuvastatin # Pulm ARDS, aspiration PNA -Mechanically ventilated. Wean as tolerated. CXR showing minimal change from previous CXR. -On albuterol-ipratropium -Will not obtain daily ABG unless clinically significant change. Recent trend has been stable. # ID - Sputum culture grew pseudomonas. - c/w Cefazolin (12/11) and Meropenem (12/11) per ID recommendation. # Renal - Slight improvement in LETITIA on CKD - Continue monitoring I/O, BUN, Cr - Nephro consulted. D/C'ed tamsulosin due to pt having puri. Continue to follow Nephro recs. - On Renvela - Lasix given yesterday, not today. #Endo -ISS + BGM -On synthroid # Skin - Silvadene # FEN - Will attempt to place OG tube and resume feeds #Lines, tubes, drains: 12/18 - [facility] 12/08 - ETT # Prophylaxis: - DVT: Hold eliquis; SCDs - GI: Protonix # Code Status / Family Conversation: - Full Code - Dr. Branch of palliative care consulted. Will f/u recommendations. - Planning to discuss with GOC with son at bedside today (Mandy): [phone] Son Luz): [phone] Visit type - Emergency Visit Emergency Visit: Yes ED Registration Date: 12/03/19 Care time: The patient presented to the Emergency Department on the above date and was hospitalized for further evaluation of their emergent condition. - New Patient This patient is new to me today: No - Critical Care Critical Care patient: Yes Total Critical Care Time (in minutes): 39 Critical Care Statement: The care of this patient involved high complexity decision making to prevent further life threatening deterioration of the patient's condition and/or to evaluate & treat vital organ system(s) failure or risk of failure. ATTENDING PHYSICIAN STATEMENT I saw and evaluated the patient. I reviewed the resident's note and discussed the case with the resident. I agree with the resident's findings and plan as documented. SUBJECTIVE: OBJECTIVE: ASSESSMENT AND PLAN:
[2019-12-23 07:40] LABS: BLOOD UREA NITROGEN 115.4 mg/dL (7-18)
[2019-12-23] MEDS: SEVELAMER CARBONATE 0.8 GM POWDER PACKET PO SCH ×3 (08:26→17:21)
[2019-12-23] MEDS ORDERED: PT OWN MED DRAWER 7, Y5N ONE ×2 (09:03→21:09)
[2019-12-23] MEDS: PANTOPRAZOLE SODIUM 40 MG VIAL IVPUSH SCH (09:11)
[2019-12-23] MEDS: SILVER SULFADIAZINE 1% TOP CREAM 50 GM JAR TP SCH ×2 (09:11→21:36)
[2019-12-23] MEDS: levETIRAcetam 500 MG/5 ML INJECTION VIAL IVPB SCH ×2 (09:11→22:54)
[2019-12-23] MEDS: CEFAZOLIN 500 MG in DEXTROSE 5%-WATER - 50 ML IVPB SCH ×2 (10:24→21:35)
[2019-12-23] MEDS: LEVOTHYROXINE SODIUM 100 MCG VIAL IVPUSH SCH (10:24)
--- NOTE | 2019-12-23 12:27 | PN ---
Teaching Attending Note Name of Resident: Kelly Orellana ATTENDING PHYSICIAN STATEMENT I saw and evaluated the patient. I reviewed the resident's note and discussed the case with the resident. I agree with the resident's findings and plan as documented. SUBJECTIVE: Pt seen and examined in the ICU. Remains intubated, sedated. agitated off se dation. No pressors. Vented on volume assist control with 40% FiO2. OBJECTIVE: Vital Signs Period Temp Pulse Resp BP Sys/Hair Pulse Ox Last 24 Hr 97.5 F-98.8 F 59-88 18-22 104-133/51-67 97-100 Intake & Output 12/20/19 12/21/19 12/22/19 12/23/19 23:59 23:59 23:59 23:59 Intake Total 4162.7 3579.9 720 57587 Output Total 2150 3400 2000 1300 Balance 2012.7 179.9 -1280 51531 Weight 106 kg 104.8 kg 105.878 kg 106 kg Gen: intubated, sedated Heart: RRR Lung; scattered rhonchi Abd: soft, nontender Ext: + edema CBC, BMP 12/23/19 05:15 12/23/19 05:15 Active Medications Albuterol/Ipratropium (Duoneb -) 1 amp NEB Q4H PRN PRN Reason: SHORT OF BREATH/WHEEZING Last Admin: 12/08/19 02:38 Dose: 1 amp Documented by: Artificial Tears (Artificial Tears) 1 drop OU BID PRN PRN Reason: DRY EYES Last Admin: 12/17/19 10:22 Dose: 1 drop Documented by: Cefazolin Sodium 500 mg/ (Dextrose) 50 mls @ 100 mls/hr IVPB BID [facility] Last Admin: 12/23/19 10:24 Dose: 100 mls/hr Documented by: Meropenem 500 mg/ Dextrose 100 mls @ 200 mls/hr IVPB Q12H [facility] Last Admin: 12/22/19 23:54 Dose: 200 mls/hr Documented by: Fentanyl (Sublimaze Ivpb) 500 mcg in 100 mls @ 21.614 mls/hr IVPB TITR MICHAEL; Protocol Last Admin: 12/23/19 06:45 Dose: 0.93 mcg/kg/hr, 20 mls/hr Documented by: Propofol (Diprivan -) 1,000,000 mcg in 100 mls @ 3.164 mls/hr IVPB TITR [facility]; Protocol Last Admin: 12/23/19 09:35 Dose: 25 mcg/kg/min, 15.819 mls/hr Documented by: Insulin Aspart (Novolog Vial Sliding Scale -) 1 vial SQ ACHS [facility]; Protocol Last Admin: 12/23/19 10:39 Dose: Not Given Documented by: Levetiracetam (Keppra Injection -) 500 mg IVPB BID [facility] Last Admin: 12/23/19 09:11 Dose: 500 mg Documented by: Levothyroxine Sodium (Synthroid Injection -) 20 mcg IVPUSH DAILY [facility] Last Admin: 12/23/19 10:24 Dose: 20 mcg Documented by: Pantoprazole Sodium (Protonix Iv) 40 mg IVPUSH DAILY [facility] Last Admin: 12/23/19 09:11 Dose: 40 mg Documented by: Rosuvastatin Calcium (Crestor -) 10 mg PO HS [facility] Last Admin: 12/22/19 21:37 Dose: Not Given Documented by: Scopolamine HBr (Transderm-Scop -) 1 patch TD Q72H [facility] Last Admin: 12/20/19 21:17 Dose: 1 patch Documented by: Sevelamer Carbonate (Renvela Powder Packet -) 0.8 gm PO TIDCM [facility] Last Admin: 12/23/19 11:10 Dose: Not Given Documented by: Silver Sulfadiazine (Silvadene -) 1 applic TP BID [facility] Last Admin: 12/23/19 09:11 Dose: 1 applic Documented by: ASSESSMENT AND PLAN: s/p Cardiopulmonary Arrest Acute Hypoxic and Hypercapneic Respiratory Failure Likely Aspiration Pneumonia Septic Shock Acute on Chronic Renal Failure Lactic Acidosis Bullous Pemphigoid CAD LV Diastolic Dysfunction Atrial Fibrillation Seizure Disorder h/o CVA Hypothyroidism Anemia Thrombocytopenia - continue antibiotics - monitor H/H - monitor urine output, creatinine - rate control - daily sedation vacation to assess mental status - continue volume assist control - enteral feeds - DVT/GI prophylaxis - ICU monitoring - continue discussions regarding goals of care, recommend compassionate extubation critical care time spent in reviewing chart, evaluating patient and formulating plan 35 min
[2019-12-23] MEDS ORDERED: MEROPENEM 500 MG VIAL (RESTRICTED TO ID) IVPB ONE (13:40)
[2019-12-23] MEDS ORDERED: DEXTROSE 5%-WATER 100 ML IVPB ONE (13:40)
[2019-12-23] MEDS: MEROPENEM 500 MG in DEXTROSE 5%-WATER 100 ML IVPB SCH (13:43)
--- NOTE | 2019-12-23 15:18 | PN ---
Progress Note, Physician Chief Complaint: s/p Cardiopulmonary Arrest Acute Hypoxic and Hypercapneic Respiratory Failure Likely Aspiration Pneumonia Septic Shock Acute on Chronic Renal Failure Lactic Acidosis Bullous Pemphigoid CAD LV Diastolic Dysfunction Atrial Fibrillation Seizure Disorder h/o CVA Hypothyroidism Anemia Thrombocytopenia History of Present Illness: Remains intubated in ICU awake, nodding hid head yes/no upon questioning, appears uncomfortable - Current Medication List Current Medications: Active Medications Albuterol/Ipratropium (Duoneb -) 1 amp NEB Q4H PRN PRN Reason: SHORT OF BREATH/WHEEZING Last Admin: 12/08/19 02:38 Dose: 1 amp Documented by: Artificial Tears (Artificial Tears) 1 drop OU BID PRN PRN Reason: DRY EYES Last Admin: 12/17/19 10:22 Dose: 1 drop Documented by: Cefazolin Sodium 500 mg/ (Dextrose) 50 mls @ 100 mls/hr IVPB BID MICHAEL Last Admin: 12/23/19 10:24 Dose: 100 mls/hr Documented by: Meropenem 500 mg/ Dextrose 100 mls @ 200 mls/hr IVPB Q12H [facility] Last Admin: 12/23/19 13:43 Dose: 200 mls/hr Documented by: Fentanyl (Sublimaze Ivpb) 500 mcg in 100 mls @ 21.614 mls/hr IVPB TITR [facility]; Protocol Last Titration: 12/23/19 11:00 Dose: 0 mcg/kg/hr, 0 mls/hr Documented by: Propofol (Diprivan -) 1,000,000 mcg in 100 mls @ 3.164 mls/hr IVPB TITR [facility]; Protocol Last Titration: 12/23/19 11:00 Dose: 0 mcg/kg/min, 0 mls/hr Documented by: Insulin Aspart (Novolog Vial Sliding Scale -) 1 vial SQ ACHS MICHAEL; Protocol Last Admin: 12/23/19 10:39 Dose: Not Given Documented by: Levetiracetam (Keppra Injection -) 500 mg IVPB BID [facility] Last Admin: 12/23/19 09:11 Dose: 500 mg Documented by: Levothyroxine Sodium (Synthroid Injection -) 20 mcg IVPUSH DAILY [facility] Last Admin: 12/23/19 10:24 Dose: 20 mcg Documented by: Pantoprazole Sodium (Protonix Iv) 40 mg IVPUSH DAILY [facility] Last Admin: 12/23/19 09:11 Dose: 40 mg Documented by: Rosuvastatin Calcium (Crestor -) 10 mg PO HS [facility] Last Admin: 12/22/19 21:37 Dose: Not Given Documented by: Scopolamine HBr (Transderm-Scop -) 1 patch TD Q72H [facility] Last Admin: 12/20/19 21:17 Dose: 1 patch Documented by: Sevelamer Carbonate (Renvela Powder Packet -) 0.8 gm PO TIDCM [facility] Last Admin: 12/23/19 11:10 Dose: Not Given Documented by: Silver Sulfadiazine (Silvadene -) 1 applic TP BID [facility] Last Admin: 12/23/19 09:11 Dose: 1 applic Documented by: - Objective Vital Signs: Vital Signs Temperature 98.8 F 12/23/19 08:00 Pulse Rate 92 H 12/23/19 14:00 Respiratory Rate 22 H 12/23/19 14:00 Blood Pressure 130/57 L 12/23/19 14:00 O2 Sat by Pulse Oximetry (%) 100 12/23/19 12:00 Constitutional: Yes: Well Nourished, No Distress, Anxious Cardiovascular: Yes: Regular Rate and Rhythm Respiratory: Yes: Intubated, Mechanically Ventilated, Rhonchi (diffuse) Gastrointestinal: Yes: Soft, Abdomen, Obese, Hypoactive Bowel Sounds Genitourinary: Yes: Duvall Present Edema: No Peripheral Pulses WNL: No Peripheral Pulses: Left Doralis Pedis: 1+, Right Dorsalis Pedis: 1+ Integumentary: Yes: Other (Gneralized bleeding blisters) Neurological: Yes: Alert, Lethargy Labs: CBC, BMP 12/23/19 05:15 12/23/19 05:15 INR, PTT INR 1.29 (0.83-1.09) H 12/15/19 11:01 Problem List - Problems (1) Acute respiratory failure Assessment/Plan: -Mech vent -Pulmonary consult -IV Cefazolin + meropenem -Enteral feeds- no NGT at the moment -Bronchodilators Problems reviewed: Yes Code(s): J96.00 - ACUTE RESPIRATORY FAILURE, UNSP W HYPOXIA OR HYPERCAPNIA (2) Bullous pemphigoid Assessment/Plan: -Cellcept discontinued 2/2 to GI bleed -Silvadene top Problems reviewed: Yes Code(s): L12.0 - BULLOUS PEMPHIGOID (3) Acute on chronic renal insufficiency Assessment/Plan: -Nephrology on board -monitor daily labs Problems reviewed: Yes Code(s): N28.9 - DISORDER OF KIDNEY AND URETER, UNSPECIFIED; N18.9 - CHRONIC KIDNEY DISEASE, UNSPECIFIED (4) Pneumonia Assessment/Plan: -Likely aspiration -CXR reviewed -Repeat COVID 19 PCR negative -IV abx -ID consult -Lactic acidosis noted Problems reviewed: Yes Code(s): J18.9 - PNEUMONIA, UNSPECIFIED ORGANISM (5) Afib Assessment/Plan: -Chronic, rate controlled -Eliquis Held due to acute GI bleed -Transfuse only if Hg <7.0 to avoid fluid overload Problems reviewed: Yes Code(s): I48.91 - UNSPECIFIED ATRIAL FIBRILLATION (6) Anemia Assessment/Plan: -Chronic -workup last admission was negative -hematology consult -Transfuse only if hg<7.0 to avoid fluid overload. Problems reviewed: Yes Code(s): D64.9 - ANEMIA, UNSPECIFIED (7) Bacteremia Assessment/Plan: -Repeat BC negative -IV abx -ID on board Problems reviewed: Yes Code(s): R78.81 - BACTEREMIA Assessment/Plan See problem list Ongoing discussion with family regarding comfort care. GI PPX
--- NOTE | 2019-12-23 15:40 | PN ---
Progress Note, Physician History of Present Illness: Pt seen and examined at bedside. He remains in the ICU. He remains intubated. - Current Medication List Current Medications: Active Medications Albuterol/Ipratropium (Duoneb -) 1 amp NEB Q4H PRN PRN Reason: SHORT OF BREATH/WHEEZING Last Admin: 12/08/19 02:38 Dose: 1 amp Documented by: Artificial Tears (Artificial Tears) 1 drop OU BID PRN PRN Reason: DRY EYES Last Admin: 12/17/19 10:22 Dose: 1 drop Documented by: Cefazolin Sodium 500 mg/ (Dextrose) 50 mls @ 100 mls/hr IVPB BID MICHAEL Last Admin: 12/23/19 10:24 Dose: 100 mls/hr Documented by: Meropenem 500 mg/ Dextrose 100 mls @ 200 mls/hr IVPB Q12H MICHAEL Last Admin: 12/23/19 13:43 Dose: 200 mls/hr Documented by: Fentanyl (Sublimaze Ivpb) 500 mcg in 100 mls @ 21.614 mls/hr IVPB TITR [facility]; Protocol Last Titration: 12/23/19 11:00 Dose: 0 mcg/kg/hr, 0 mls/hr Documented by: Propofol (Diprivan -) 1,000,000 mcg in 100 mls @ 3.164 mls/hr IVPB TITR [facility]; Protocol Last Titration: 12/23/19 11:00 Dose: 0 mcg/kg/min, 0 mls/hr Documented by: Insulin Aspart (Novolog Vial Sliding Scale -) 1 vial SQ ACHS [facility]; Protocol Last Admin: 12/23/19 10:39 Dose: Not Given Documented by: Levetiracetam (Keppra Injection -) 500 mg IVPB BID [facility] Last Admin: 12/23/19 09:11 Dose: 500 mg Documented by: Levothyroxine Sodium (Synthroid Injection -) 20 mcg IVPUSH DAILY [facility] Last Admin: 12/23/19 10:24 Dose: 20 mcg Documented by: Pantoprazole Sodium (Protonix Iv) 40 mg IVPUSH DAILY [facility] Last Admin: 12/23/19 09:11 Dose: 40 mg Documented by: Rosuvastatin Calcium (Crestor -) 10 mg PO HS [facility] Last Admin: 12/22/19 21:37 Dose: Not Given Documented by: Scopolamine HBr (Transderm-Scop -) 1 patch TD Q72H [facility] Last Admin: 12/20/19 21:17 Dose: 1 patch Documented by: Sevelamer Carbonate (Renvela Powder Packet -) 0.8 gm PO TIDCM [facility] Last Admin: 12/23/19 11:10 Dose: Not Given Documented by: Silver Sulfadiazine (Silvadene -) 1 applic TP BID [facility] Last Admin: 12/23/19 09:11 Dose: 1 applic Documented by: - Objective Vital Signs: Vital Signs Temperature 98.8 F 12/23/19 08:00 Pulse Rate 92 H 12/23/19 14:00 Respiratory Rate 22 H 12/23/19 14:00 Blood Pressure 130/57 L 12/23/19 14:00 O2 Sat by Pulse Oximetry (%) 100 12/23/19 12:00 Constitutional: Yes: Calm Eyes: Yes: Conjunctiva Clear HENT: Yes: Atraumatic Cardiovascular: Yes: S1, S2 Respiratory: Yes: CTA Bilaterally Gastrointestinal: Yes: Soft Genitourinary: Yes: [place] Present Musculoskeletal: Yes: Muscle Weakness Edema: Yes Edema: LLE: Trace, RLE: Trace Neurological: Yes: Lethargy Labs: CBC, BMP 12/23/19 05:15 12/23/19 05:15 INR, PTT INR 1.29 (0.83-1.09) H 12/15/19 11:01 - ....Imaging Chest X-ray: Report Reviewed Problem List - Problems (1) Acute respiratory failure Code(s): J96.00 - ACUTE RESPIRATORY FAILURE, UNSP W HYPOXIA OR HYPERCAPNIA (2) Bullous pemphigoid Code(s): L12.0 - BULLOUS PEMPHIGOID Assessment/Plan Current Medications Generic Name Dose Route Start Last Admin Trade Name Freq PRN Reason Stop Dose Admin Albuterol/Ipratropium 1 amp 12/07/19 13:25 12/08/19 02:38 Duoneb - NEB 1 amp Q4H PRN Administration SHORT OF BREATH/WHEEZING Artificial Tears 1 drop 12/15/19 07:31 12/17/19 10:22 Artificial Tears OU 1 drop BID PRN Administration DRY EYES Cefazolin Sodium 500 mg/ 50 mls @ 100 mls/hr 12/12/19 12:45 12/23/19 10:24 Dextrose IVPB 100 mls/hr BID MICHAEL Administration Meropenem 500 mg/ Dextrose 100 mls @ 200 mls/hr 12/12/19 12:45 12/23/19 13:43 IVPB 200 mls/hr Q12H MICHAEL Administration Fentanyl 500 mcg in 100 mls @ 21.614 mls/hr 12/17/19 01:15 12/23/19 11:00 Sublimaze Ivpb IVPB 0 mcg/kg/hr TITR MICHAEL 0 mls/hr Titration Protocol 1 MCG/KG/HR Propofol 1,000,000 mcg in 100 mls @ 3.164 mls/hr 12/18/19 02:15 12/23/19 11:00 Diprivan - IVPB 0 mcg/kg/min TITR MICHAEL 0 mls/hr Titration Protocol 5 MCG/KG/MIN Insulin Aspart 1 vial 12/10/19 07:00 12/23/19 10:39 Novolog Vial Sliding Scale - SQ Not Given ACHS MICHAEL Protocol Levetiracetam 500 mg 12/09/19 10:00 12/23/19 09:11 Keppra Injection - IVPB 500 mg BID MICHAEL Administration Levothyroxine Sodium 20 mcg 12/09/19 10:00 12/23/19 10:24 Synthroid Injection - IVPUSH 20 mcg DAILY MICHAEL Administration Pantoprazole Sodium 40 mg 12/09/19 10:00 12/23/19 09:11 Protonix Iv IVPUSH 40 mg DAILY MICHAEL Administration Rosuvastatin Calcium 10 mg 12/07/19 22:00 12/22/19 21:37 Crestor - PO Not Given HS MICHAEL Scopolamine HBr 1 patch 12/17/19 22:00 12/20/19 21:17 Transderm-Scop - TD 1 patch Q72H MICHAEL Administration Sevelamer Carbonate 0.8 gm 12/16/19 17:30 12/23/19 11:10 Renvela Powder Packet - PO Not Given TIDCM MICHAEL Silver Sulfadiazine 1 applic 12/15/19 12:45 12/23/19 09:11 Silvadene - TP 1 applic BID MICHAEL Administration Impression 1. CKD 2. CHF 3. BPH 4. a. fib 5. CAD 6. epilepsy 7. proteinuria 8. anemia 9. foot ulcer 10. abd wall cellulitis 11. bullous pemphigoid 12. LETITIA 13. hyperkalemia 14. cardiac arrest 15. resp failure on vent 16. r/o aspiration Plan - renal function has stabilized - repeat labs in am - lasix prn - cont vent support - discuss GOC with family - cont to monitor - cont cellcept for bullous pemphigoid - weaning per pulm - maintain map 65 - letitia on ckd likely atn post cardiac arrest
[2019-12-23] MEDS: ROSUVASTATIN CA 10 MG TABLET (FP) PO SCH (21:36)
[2019-12-23] MEDS: SCOPOLAMINE HYDROBROMIDE 1 PATCH PATCH.TD72 TD SCH (21:37)
[2019-12-23] MEDS ORDERED: ACETAMINOPHEN 1000 MG/100 ML VIAL (NON FORMULARY) IVPB ONE (22:01)
[2019-12-24] MEDS ORDERED: MEROPENEM 500 MG VIAL (RESTRICTED TO ID) IVPB ONE ×2 (01:15→10:47)
[2019-12-24] MEDS ORDERED: DEXTROSE 5%-WATER 100 ML IVPB ONE ×2 (01:15→10:47)
[2019-12-24] MEDS: FENTANYL NS IVPB 500 MCG/100 ML BAG IVPB SCH ×2 (01:24→06:20)
[2019-12-24] MEDS: MEROPENEM 500 MG in DEXTROSE 5%-WATER 100 ML IVPB SCH ×2 (01:24→14:14)
[2019-12-24] MEDS: PROPOFOL 1,000,000 MCG/100 ML VIAL IVPB SCH (03:05)
[2019-12-24] MEDS: DEXMEDETOMIDINE IN 0.9 % NACL 400 MCG/100 ML VIAL IVPB SCH (04:29)
[2019-12-24] MEDS: INSULIN SLIDING SCALE (NOVOLOG) 1 VIAL SQ SCH ×4 (06:09→23:15)
[2019-12-24 06:48] LABS: HEMOGLOBIN 8.7 GM/dL (11.7-16.9); MCH 29.2 pg (25.7-33.7); MCHC 32.1 g/dl (32.0-35.9); MEAN CELL VOLUME 90.9 fl (80-96); MEAN PLT VOLUME 8.2 fl (7.5-11.1); PLATELET COUNT 267 K/MM3 (134-434); RBC 2.96 M/mm3 (4.00-5.60); RDW 15.5 % (11.9-15.9); WHITE BLOOD COUNT 8.5 K/mm3 (4.0-10.0)
[2019-12-24 07:18] LABS: BILIRUBIN,TOTAL 0.9 mg/dL (0.2-1); CALCIUM 7.5 mg/dL (8.5-10.1); CREATININE 2.9 mg/dL (0.55-1.3); MAGNESIUM 1.9 mg/dL (1.8-2.4); PHOSPHOROUS 5.4 mg/dL (2.5-4.9); POTASSIUM 3.9 mmol/L (3.5-5.1); TOT PROT 5.3 g/dl (6.4-8.2)
[2019-12-24 07:26] LABS: BLOOD UREA NITROGEN 111.4 mg/dL (7-18)
--- NOTE | 2019-12-24 07:42 | PN ---
Physical Exam: SUBJECTIVE: Patient seen and examined remains sedated on precedex and fentanyl - propofol stopped. Was febrile overnight, sputum/urine/blood cx ordered. GOC discussion scheduled today with and palliative care. Ventilated on volume-assist control Vent: RR 18, TV 450, FiO2 40%, PEEP 5 Drips: Fentanyl 25, Precedex 0.2 OBJECTIVE: Vital Signs Period Temp Pulse Resp BP Sys/Hair Pulse Ox Last 24 Hr 98.7 F-101.0 F 64-108 18-24 97-133/48-66 96-100 GENERAL: The patient is intubated and sedated. ENT: moist mucous membranes, bloody secretion again noted in oropharyngeal area. LUNGS: Breath sounds equal, clear to auscultation bilaterally, no wheezes, no crackles. HEART: Regular rate and rhythm, S1, S2. ABDOMEN: Soft, nontender, nondistended, and normoactive bowel sounds. EXTREMITIES: 2+ pulses, warm, well-perfused, + edema. SKIN: multiple skin ulcerations throughout body, non cellulitic Laboratory Results - last 24 hr 12/20/19 12/23/19 12/23/19 09:15 05:15 10:37 WBC RBC Hgb Hct MCV MCH MCHC RDW Plt Count MPV Sodium Potassium Chloride Carbon Dioxide Anion Gap BUN 115.4 H* Creatinine Est GFR (CKD-EPI)AfAm Est GFR (CKD-EPI)NonAf POC Glucometer 83 Random Glucose Calcium Phosphorus Magnesium Total Bilirubin AST ALT Alkaline Phosphatase Total Protein Albumin Blood Type B POSITIVE Antibody Screen Negative Crossmatch See Detail 12/23/19 12/23/19 12/24/19 16:35 21:53 05:38 WBC 8.5 RBC 2.96 L Hgb 8.7 L Hct 27.0 L MCV 90.9 MCH 29.2 MCHC 32.1 RDW 15.5 Plt Count 267 MPV 8.2 Sodium Potassium Chloride Carbon Dioxide Anion Gap BUN Creatinine Est GFR (CKD-EPI)AfAm Est GFR (CKD-EPI)NonAf POC Glucometer 102 79 Random Glucose Calcium Phosphorus Magnesium Total Bilirubin AST ALT Alkaline Phosphatase Total Protein Albumin Blood Type Antibody Screen Crossmatch 12/24/19 12/24/19 05:38 05:52 WBC RBC Hgb Hct MCV MCH MCHC RDW Plt Count MPV Sodium 140 Potassium 3.9 Chloride 104 Carbon Dioxide 25 Anion Gap 11 BUN 111.4 H* Creatinine 2.9 H Est GFR (CKD-EPI)AfAm 22.48 Est GFR (CKD-EPI)NonAf 19.40 POC Glucometer 78 Random Glucose 77 Calcium 7.5 L Phosphorus 5.4 H Magnesium 1.9 Total Bilirubin 0.9 AST 43 H ALT 9 L Alkaline Phosphatase 110 Total Protein 5.3 L Albumin 2.0 L Blood Type Antibody Screen Crossmatch Active Medications Generic Name Dose Route Start Last Admin Trade Name Freq PRN Reason Stop Dose Admin Albuterol/Ipratropium 1 amp 12/07/19 13:25 12/08/19 02:38 Duoneb - NEB 1 amp Q4H PRN Administration SHORT OF BREATH/WHEEZING Artificial Tears 1 drop 12/15/19 07:31 12/17/19 10:22 Artificial Tears OU 1 drop BID PRN Administration DRY EYES Cefazolin Sodium 500 mg/ 50 mls @ 100 mls/hr 12/12/19 12:45 12/23/19 21:35 Dextrose IVPB 100 mls/hr BID MICHAEL Administration Meropenem 500 mg/ Dextrose 100 mls @ 200 mls/hr 12/12/19 12:45 12/24/19 01:24 IVPB 200 mls/hr Q12H MICHAEL Administration Fentanyl 500 mcg in 100 mls @ 21.614 mls/hr 12/17/19 01:15 12/24/19 06:20 Sublimaze Ivpb IVPB 0.37 mcg/kg/hr TITR MICHAEL 8 mls/hr Administration Protocol 1 MCG/KG/HR Propofol 1,000,000 mcg in 100 mls @ 3.164 mls/hr 12/18/19 02:15 12/24/19 06:10 Diprivan - IVPB 0 mcg/kg/min TITR MICHAEL 0 mls/hr Titration Protocol 5 MCG/KG/MIN Dexmedetomidine/Sodium Chloride 400 mcg in 100 mls @ 5.3 mls/hr 12/24/19 02:45 12/24/19 04:29 Precedex 400 Mcg/100 Ml Inject IVPB 0.2 mcg/kg/hr TITR MICHAEL 5.3 mls/hr Administration 0.2 MCG/KG/HR Insulin Aspart 1 vial 12/10/19 07:00 12/24/19 06:09 Novolog Vial Sliding Scale - SQ Not Given ACHS MICHAEL Protocol Levetiracetam 500 mg 12/09/19 10:00 12/23/19 22:54 Keppra Injection - IVPB 500 mg BID MICHAEL Administration Levothyroxine Sodium 20 mcg 12/09/19 10:00 12/23/19 10:24 Synthroid Injection - IVPUSH 20 mcg DAILY MICHAEL Administration Pantoprazole Sodium 40 mg 12/09/19 10:00 12/23/19 09:11 Protonix Iv IVPUSH 40 mg DAILY MICHAEL Administration Rosuvastatin Calcium 10 mg 12/07/19 22:00 12/23/19 21:36 Crestor - PO Not Given HS IMCHAEL Scopolamine HBr 1 patch 12/17/19 22:00 12/23/19 21:37 Transderm-Scop - TD 1 patch Q72H MICHAEL Administration Sevelamer Carbonate 0.8 gm 12/16/19 17:30 12/23/19 17:21 Renvela Powder Packet - PO Not Given TIDCM MICHAEL Silver Sulfadiazine 1 applic 12/15/19 12:45 12/23/19 21:36 Silvadene - TP 1 applic BID MICHAEL Administration ASSESSMENT/PLAN: 79 y/o male PMH dCHF, afib, CAD s/p PCI, HTN, seizure d/o, CVA with right sided residual deficit, CKD, hypothyroidism, and bullous pemphigoid. He is now s/p cardiopulmonary arrest (on 12/09/2019) and possible aspiration pneumonia, admitted to the ICU due to acute hypoxic respiratory failure. He was anemic on 12/19 with Hb of 6.3 and received 3 U pRBCs. Hb has since stabilized. # Neuro: Seizure disorder h/o CVA with right-side residual deficit - Sedated on fentanyl and precedex - On Keppra - Sedation holidays daily to assess mental status # Card: Afib diastolic CHF CAD HTN Anemia - Hb 8.7; Continue to monitor. Transfuse if Hb <8. - Hold Eliquis - On rosuvastatin # Pulm ARDS, aspiration PNA -Mechanically ventilated. Wean as tolerated. CXR showing worsening pleural changes. -Will likely need tracheostomy for prolonged intubation and failure to wean; will discuss this option with family during family meeting -On albuterol-ipratropium -Will not obtain daily ABG unless clinically significant change. Recent trend has been stable. # ID - Sputum culture grew pseudomonas. - c/w Cefazolin (6/26) and Meropenem (12/11) per ID recommendation. # Renal - Slight improvement in LETITIA on CKD - Continue monitoring I/O, BUN, Cr - Nephro reconsulted regarding hemodialysis. D/C'ed tamsulosin due to pt having puri. Continue to follow Nephro recs. - On Renvela #Endo -ISS + BGM -On synthroid # Skin - Silvadene # FEN - NG tube placed and resuming trickle feeds #Lines, tubes, drains: 12/18 - [facility] 12/08 - ETT # Prophylaxis: - DVT: Hold eliquis; SCDs - GI: Protonix # Code Status / Family Conversation: - Full Code - Dr. Branch of palliative care consulted. Will f/u recommendations. - Discussing GOC with both son and tomorrow at 3 pm. (Mandy): [phone] Visit type - Emergency Visit Emergency Visit: Yes ED Registration Date: 12/03/19 Care time: The patient presented to the Emergency Department on the above date and was hospitalized for further evaluation of their emergent condition. - New Patient This patient is new to me today: No - Critical Care Critical Care patient: Yes Total Critical Care Time (in minutes): 38 Critical Care Statement: The care of this patient involved high complexity decision making to prevent further life threatening deterioration of the patient's condition and/or to evaluate & treat vital organ system(s) failure or risk of failure. ATTENDING PHYSICIAN STATEMENT I saw and evaluated the patient. I reviewed the resident's note and discussed the case with the resident. I agree with the resident's findings and plan as documented. SUBJECTIVE: OBJECTIVE: ASSESSMENT AND PLAN:
[2019-12-24] MEDS: SEVELAMER CARBONATE 0.8 GM POWDER PACKET PO SCH ×3 (08:00→17:23)
[2019-12-24] MEDS: PANTOPRAZOLE SODIUM 40 MG VIAL IVPUSH SCH (09:43)
[2019-12-24] MEDS: levETIRAcetam 500 MG/5 ML INJECTION VIAL IVPB SCH ×2 (09:43→21:18)
[2019-12-24] MEDS ORDERED: PT OWN MED DRAWER 7, Y5N ONE ×2 (10:47→21:00)
[2019-12-24] MEDS: CEFAZOLIN 500 MG in DEXTROSE 5%-WATER - 50 ML IVPB SCH ×2 (10:51→21:19)
[2019-12-24] MEDS: LEVOTHYROXINE SODIUM 100 MCG VIAL IVPUSH SCH (10:56)
[2019-12-24] MEDS: SILVER SULFADIAZINE 1% TOP CREAM 50 GM JAR TP SCH ×2 (11:00→21:19)
[2019-12-24] MEDS ORDERED: MIDAZOLAM IN 0.9 % SOD.CHLORID 100 MG/100 ML PLAST..BAG IVPB SCH (11:15)
[2019-12-24] MEDS ORDERED: LACTATED RINGERS SOLUTION 1,000 ML/1,000 ML INFUS.BAG IV SCH ×2 (11:15→16:00)
--- NOTE | 2019-12-24 12:15 | PN ---
Teaching Attending Note Name of Resident: Kelly Orellana ATTENDING PHYSICIAN STATEMENT I saw and evaluated the patient. I reviewed the resident's note and discussed the case with the resident. I agree with the resident's findings and plan as documented. SUBJECTIVE: Pt seen and examined in the ICU. Remains intubated, awake off sedation, foll owing commands. No pressors. Not tolerating weaning trials. Febrile overnight. OBJECTIVE: Vital Signs Period Temp Pulse Resp BP Sys/Hair Pulse Ox Last 24 Hr 98.7 F-101.0 F 67-108 18-24 97-130/48-64 96-100 Intake & Output 12/21/19 12/22/19 12/23/19 12/24/19 23:59 23:59 23:59 23:59 Intake Total 3579.9 720 32721 497 Output Total 3400 2000 2200 100 Balance 179.9 -1280 77747 397 Weight 104.8 kg 105.878 kg 106 kg 106 kg Gen: intubated, sedated Heart: RRR Lung; scattered rhonchi Abd: soft, nontender Ext: + edema CBC, BMP 12/24/19 05:38 12/24/19 05:38 Active Medications Albuterol/Ipratropium (Duoneb -) 1 amp NEB Q4H PRN PRN Reason: SHORT OF BREATH/WHEEZING Last Admin: 12/08/19 02:38 Dose: 1 amp Documented by: Artificial Tears (Artificial Tears) 1 drop OU BID PRN PRN Reason: DRY EYES Last Admin: 12/17/19 10:22 Dose: 1 drop Documented by: Cefazolin Sodium 500 mg/ (Dextrose) 50 mls @ 100 mls/hr IVPB BID MICHAEL Last Admin: 12/24/19 10:51 Dose: 100 mls/hr Documented by: Meropenem 500 mg/ Dextrose 100 mls @ 200 mls/hr IVPB Q12H MICHAEL Last Admin: 12/24/19 01:24 Dose: 200 mls/hr Documented by: Fentanyl (Sublimaze Ivpb) 500 mcg in 100 mls @ 21.614 mls/hr IVPB TITR MICHAEL; Protocol Last Admin: 12/24/19 06:20 Dose: 0.37 mcg/kg/hr, 8 mls/hr Documented by: Propofol (Diprivan -) 1,000,000 mcg in 100 mls @ 3.164 mls/hr IVPB TITR [facility]; Protocol Last Titration: 12/24/19 06:10 Dose: 0 mcg/kg/min, 0 mls/hr Documented by: Dexmedetomidine/Sodium Chloride (Precedex 400 Mcg/100 Ml Inject) 400 mcg in 100 mls @ 5.3 mls/hr IVPB TITR [facility] Last Infusion: 12/24/19 09:44 Dose: 0.7 mcg/kg/hr, 18.55 mls/hr Documented by: Lactated Ringer's (Lactated Ringers Solution) 1,000 ml in 1,000 mls @ 75 mls/hr IV ASDIR [facility] Last Admin: 12/24/19 11:56 Dose: 75 mls/hr Documented by: Midazolam HCl (Midazolam 100mg/100ml-0.9%Nacl) 100 mg in 100 mls @ 1 mls/hr IVPB TITR [facility]; Protocol Last Admin: 12/24/19 11:15 Dose: 1 mg/hr, 1 mls/hr Documented by: Insulin Aspart (Novolog Vial Sliding Scale -) 1 vial SQ ACHS [facility]; Protocol Last Admin: 12/24/19 06:09 Dose: Not Given Documented by: Levetiracetam (Keppra Injection -) 500 mg IVPB BID [facility] Last Admin: 12/24/19 09:43 Dose: 500 mg Documented by: Levothyroxine Sodium (Synthroid Injection -) 20 mcg IVPUSH DAILY [facility] Last Admin: 12/24/19 10:56 Dose: 20 mcg Documented by: Pantoprazole Sodium (Protonix Iv) 40 mg IVPUSH DAILY [facility] Last Admin: 12/24/19 09:43 Dose: 40 mg Documented by: Rosuvastatin Calcium (Crestor -) 10 mg PO HS [facility] Last Admin: 12/23/19 21:36 Dose: Not Given Documented by: Scopolamine HBr (Transderm-Scop -) 1 patch TD Q72H [facility] Last Admin: 12/23/19 21:37 Dose: 1 patch Documented by: Sevelamer Carbonate (Renvela Powder Packet -) 0.8 gm PO TIDCM [facility] Last Admin: 12/24/19 08:00 Dose: Not Given Documented by: Silver Sulfadiazine (Silvadene -) 1 applic TP BID [facility] Last Admin: 12/24/19 11:00 Dose: 1 applic Documented by: ASSESSMENT AND PLAN: s/p Cardiopulmonary Arrest Acute Hypoxic and Hypercapneic Respiratory Failure Likely Aspiration Pneumonia Septic Shock Acute on Chronic Renal Failure Lactic Acidosis Bullous Pemphigoid CAD LV Diastolic Dysfunction Atrial Fibrillation Seizure Disorder h/o CVA Hypothyroidism Anemia Thrombocytopenia - continue antibiotics - monitor H/H - monitor urine output, creatinine - rate control - daily sedation vacation to assess mental status - continue volume assist control - enteral feeds - DVT/GI prophylaxis - ICU monitoring - will likely need tracheostomy for prolonged intubation and failure to wean critical care time spent in reviewing chart, evaluating patient and formulating plan 35 min
--- NOTE | 2019-12-24 12:37 | PN ---
Progress Note, Physician History of Present Illness: Pt seen and examined at bedside. He is awake but not interactive and not responding to verbal stimuli. - Current Medication List Current Medications: Active Medications Albuterol/Ipratropium (Duoneb -) 1 amp NEB Q4H PRN PRN Reason: SHORT OF BREATH/WHEEZING Last Admin: 12/08/19 02:38 Dose: 1 amp Documented by: Artificial Tears (Artificial Tears) 1 drop OU BID PRN PRN Reason: DRY EYES Last Admin: 12/17/19 10:22 Dose: 1 drop Documented by: Cefazolin Sodium 500 mg/ (Dextrose) 50 mls @ 100 mls/hr IVPB BID MICHAEL Last Admin: 12/24/19 10:51 Dose: 100 mls/hr Documented by: Meropenem 500 mg/ Dextrose 100 mls @ 200 mls/hr IVPB Q12H MICHAEL Last Admin: 12/24/19 01:24 Dose: 200 mls/hr Documented by: Fentanyl (Sublimaze Ivpb) 500 mcg in 100 mls @ 21.614 mls/hr IVPB TITR MICHAEL; Protocol Last Admin: 12/24/19 06:20 Dose: 0.37 mcg/kg/hr, 8 mls/hr Documented by: Propofol (Diprivan -) 1,000,000 mcg in 100 mls @ 3.164 mls/hr IVPB TITR MICHAEL; Protocol Last Titration: 12/24/19 06:10 Dose: 0 mcg/kg/min, 0 mls/hr Documented by: Dexmedetomidine/Sodium Chloride (Precedex 400 Mcg/100 Ml Inject) 400 mcg in 100 mls @ 5.3 mls/hr IVPB TITR MICHAEL Last Infusion: 12/24/19 09:44 Dose: 0.7 mcg/kg/hr, 18.55 mls/hr Documented by: Lactated Ringer's (Lactated Ringers Solution) 1,000 ml in 1,000 mls @ 75 mls/hr IV ASDIR MICHAEL Last Admin: 12/24/19 11:56 Dose: 75 mls/hr Documented by: Midazolam HCl (Midazolam 100mg/100ml-0.9%Nacl) 100 mg in 100 mls @ 1 mls/hr IVPB TITR MICHAEL; Protocol Last Admin: 12/24/19 11:15 Dose: 1 mg/hr, 1 mls/hr Documented by: Insulin Aspart (Novolog Vial Sliding Scale -) 1 vial SQ ACHS [facility]; Protocol Last Admin: 12/24/19 12:28 Dose: Not Given Documented by: Levetiracetam (Keppra Injection -) 500 mg IVPB BID [facility] Last Admin: 12/24/19 09:43 Dose: 500 mg Documented by: Levothyroxine Sodium (Synthroid Injection -) 20 mcg IVPUSH DAILY [facility] Last Admin: 12/24/19 10:56 Dose: 20 mcg Documented by: Pantoprazole Sodium (Protonix Iv) 40 mg IVPUSH DAILY [facility] Last Admin: 12/24/19 09:43 Dose: 40 mg Documented by: Rosuvastatin Calcium (Crestor -) 10 mg PO HS [facility] Last Admin: 12/23/19 21:36 Dose: Not Given Documented by: Scopolamine HBr (Transderm-Scop -) 1 patch TD Q72H [facility] Last Admin: 12/23/19 21:37 Dose: 1 patch Documented by: Sevelamer Carbonate (Renvela Powder Packet -) 0.8 gm PO TIDCM [facility] Last Admin: 12/24/19 08:00 Dose: Not Given Documented by: Silver Sulfadiazine (Silvadene -) 1 applic TP BID [facility] Last Admin: 12/24/19 11:00 Dose: 1 applic Documented by: - Objective Vital Signs: Vital Signs Temperature 99.4 F 12/24/19 05:00 Pulse Rate 67 12/24/19 05:00 Respiratory Rate 18 12/24/19 10:00 Blood Pressure 122/58 L 12/24/19 05:00 O2 Sat by Pulse Oximetry (%) 100 12/24/19 10:00 Constitutional: Yes: Calm Eyes: Yes: Conjunctiva Clear HENT: Yes: Atraumatic Cardiovascular: Yes: S1, S2 Respiratory: Yes: Mechanically Ventilated Gastrointestinal: Yes: Soft Genitourinary: Yes: [place] Present Musculoskeletal: Yes: Muscle Weakness Edema: Yes Edema: LLE: Trace, RLE: Trace Neurological: Yes: Other (awake, not responding) Labs: CBC, BMP 12/24/19 05:38 12/24/19 05:38 INR, PTT INR 1.29 (0.83-1.09) H 12/15/19 11:01 - ....Imaging Chest X-ray: Report Reviewed Problem List - Problems (1) Acute respiratory failure Code(s): J96.00 - ACUTE RESPIRATORY FAILURE, UNSP W HYPOXIA OR HYPERCAPNIA (2) Bullous pemphigoid Code(s): L12.0 - BULLOUS PEMPHIGOID Assessment/Plan Current Medications Generic Name Dose Route Start Last Admin Trade Name Freq PRN Reason Stop Dose Admin Albuterol/Ipratropium 1 amp 12/07/19 13:25 12/08/19 02:38 Duoneb - NEB 1 amp Q4H PRN Administration SHORT OF BREATH/WHEEZING Artificial Tears 1 drop 12/15/19 07:31 12/17/19 10:22 Artificial Tears OU 1 drop BID PRN Administration DRY EYES Cefazolin Sodium 500 mg/ 50 mls @ 100 mls/hr 12/12/19 12:45 12/24/19 10:51 Dextrose IVPB 100 mls/hr BID MICHAEL Administration Meropenem 500 mg/ Dextrose 100 mls @ 200 mls/hr 12/12/19 12:45 12/24/19 01:24 IVPB 200 mls/hr Q12H MICHAEL Administration Fentanyl 500 mcg in 100 mls @ 21.614 mls/hr 12/17/19 01:15 12/24/19 06:20 Sublimaze Ivpb IVPB 0.37 mcg/kg/hr TITR MICHAEL 8 mls/hr Administration Protocol 1 MCG/KG/HR Propofol 1,000,000 mcg in 100 mls @ 3.164 mls/hr 12/18/19 02:15 12/24/19 06:10 Diprivan - IVPB 0 mcg/kg/min TITR MICHAEL 0 mls/hr Titration Protocol 5 MCG/KG/MIN Dexmedetomidine/Sodium Chloride 400 mcg in 100 mls @ 5.3 mls/hr 12/24/19 02:45 12/24/19 09:44 Precedex 400 Mcg/100 Ml Inject IVPB 0.7 mcg/kg/hr TITR MICHAEL 18.55 mls/hr Infusion 0.2 MCG/KG/HR Lactated Ringer's 1,000 ml in 1,000 mls @ 75 mls/hr 12/24/19 11:15 12/24/19 11:56 Lactated Ringers Solution IV 75 mls/hr ASDIR MICHAEL Administration Midazolam HCl 100 mg in 100 mls @ 1 mls/hr 12/24/19 11:15 12/24/19 11:15 Midazolam 100mg/100ml-0.9%Nacl IVPB 1 mg/hr TITR MICHAEL 1 mls/hr Administration Protocol 1 MG/HR Insulin Aspart 1 vial 12/10/19 07:00 12/24/19 12:28 Novolog Vial Sliding Scale - SQ Not Given ACHS MICHAEL Protocol Levetiracetam 500 mg 12/09/19 10:00 12/24/19 09:43 Keppra Injection - IVPB 500 mg BID MICHAEL Administration Levothyroxine Sodium 20 mcg 12/09/19 10:00 12/24/19 10:56 Synthroid Injection - IVPUSH 20 mcg DAILY MICHAEL Administration Pantoprazole Sodium 40 mg 12/09/19 10:00 12/24/19 09:43 Protonix Iv IVPUSH 40 mg DAILY MICHAEL Administration Rosuvastatin Calcium 10 mg 12/07/19 22:00 12/23/19 21:36 Crestor - PO Not Given HS MICHAEL Scopolamine HBr 1 patch 12/17/19 22:00 12/23/19 21:37 Transderm-Scop - TD 1 patch Q72H MICHAEL Administration Sevelamer Carbonate 0.8 gm 12/16/19 17:30 12/24/19 08:00 Renvela Powder Packet - PO Not Given TIDCM MICHAEL Silver Sulfadiazine 1 applic 12/15/19 12:45 12/24/19 11:00 Silvadene - TP 1 applic BID MICHAEL Administration Impression 1. CKD 2. CHF 3. BPH 4. a. fib 5. CAD 6. epilepsy 7. proteinuria 8. anemia 9. foot ulcer 10. abd wall cellulitis 11. bullous pemphigoid 12. LETITIA 13. hyperkalemia 14. cardiac arrest 15. resp failure on vent 16. r/o aspiration Plan - renal function improving - d/c fluids - cont feeds - lasix prn - cont vent support - cont cellcept for bullous pemphigoid - weaning per pulm - maintain map 65 - letitia on ckd likely atn post cardiac arrest
--- NOTE | 2019-12-24 12:54 | PN ---
Progress Note, Physician Chief Complaint: s/p Cardiopulmonary Arrest Acute Hypoxic and Hypercapneic Respiratory Failure Likely Aspiration Pneumonia Septic Shock Acute on Chronic Renal Failure Lactic Acidosis Bullous Pemphigoid CAD LV Diastolic Dysfunction Atrial Fibrillation Seizure Disorder h/o CVA Hypothyroidism Anemia Thrombocytopenia History of Present Illness: Remains intubated in ICU, awake, opens his eyes, nods head yes and no upon questioning, observed to be uncomfortable off sedation. Visited by son last evening, who wants to bring pt's Mandy today to see the pt. Febrile overnight On eliquis for Pafib - Current Medication List Current Medications: Active Medications Albuterol/Ipratropium (Duoneb -) 1 amp NEB Q4H PRN PRN Reason: SHORT OF BREATH/WHEEZING Last Admin: 12/08/19 02:38 Dose: 1 amp Documented by: Artificial Tears (Artificial Tears) 1 drop OU BID PRN PRN Reason: DRY EYES Last Admin: 12/17/19 10:22 Dose: 1 drop Documented by: Cefazolin Sodium 500 mg/ (Dextrose) 50 mls @ 100 mls/hr IVPB BID MICHAEL Last Admin: 12/24/19 10:51 Dose: 100 mls/hr Documented by: Meropenem 500 mg/ Dextrose 100 mls @ 200 mls/hr IVPB Q12H MICHAEL Last Admin: 12/24/19 01:24 Dose: 200 mls/hr Documented by: Fentanyl (Sublimaze Ivpb) 500 mcg in 100 mls @ 21.614 mls/hr IVPB TITR MICHAEL; Protocol Last Admin: 12/24/19 06:20 Dose: 0.37 mcg/kg/hr, 8 mls/hr Documented by: Propofol (Diprivan -) 1,000,000 mcg in 100 mls @ 3.164 mls/hr IVPB TITR MICHAEL; Protocol Last Titration: 12/24/19 06:10 Dose: 0 mcg/kg/min, 0 mls/hr Documented by: Dexmedetomidine/Sodium Chloride (Precedex 400 Mcg/100 Ml Inject) 400 mcg in 100 mls @ 5.3 mls/hr IVPB TITR MICHAEL Last Infusion: 12/24/19 09:44 Dose: 0.7 mcg/kg/hr, 18.55 mls/hr Documented by: Midazolam HCl (Midazolam 100mg/100ml-0.9%Nacl) 100 mg in 100 mls @ 1 mls/hr IVPB TITR [facility]; Protocol Last Admin: 12/24/19 11:15 Dose: 1 mg/hr, 1 mls/hr Documented by: Insulin Aspart (Novolog Vial Sliding Scale -) 1 vial SQ ACHS [facility]; Protocol Last Admin: 12/24/19 12:28 Dose: Not Given Documented by: Levetiracetam (Keppra Injection -) 500 mg IVPB BID [facility] Last Admin: 12/24/19 09:43 Dose: 500 mg Documented by: Levothyroxine Sodium (Synthroid Injection -) 20 mcg IVPUSH DAILY [facility] Last Admin: 12/24/19 10:56 Dose: 20 mcg Documented by: Pantoprazole Sodium (Protonix Iv) 40 mg IVPUSH DAILY [facility] Last Admin: 12/24/19 09:43 Dose: 40 mg Documented by: Rosuvastatin Calcium (Crestor -) 10 mg PO HS [facility] Last Admin: 12/23/19 21:36 Dose: Not Given Documented by: Scopolamine HBr (Transderm-Scop -) 1 patch TD Q72H [facility] Last Admin: 12/23/19 21:37 Dose: 1 patch Documented by: Sevelamer Carbonate (Renvela Powder Packet -) 0.8 gm PO TIDCM [facility] Last Admin: 12/24/19 08:00 Dose: Not Given Documented by: Silver Sulfadiazine (Silvadene -) 1 applic TP BID [facility] Last Admin: 12/24/19 11:00 Dose: 1 applic Documented by: - Objective Vital Signs: Vital Signs Temperature 99.4 F 12/24/19 05:00 Pulse Rate 67 12/24/19 05:00 Respiratory Rate 18 12/24/19 10:00 Blood Pressure 122/58 L 12/24/19 05:00 O2 Sat by Pulse Oximetry (%) 100 12/24/19 10:00 Constitutional: Yes: Well Nourished, No Distress, Calm Cardiovascular: Yes: Regular Rate and Rhythm Respiratory: Yes: Intubated, Mechanically Ventilated, Rhonchi (diffuse) Gastrointestinal: Yes: Soft, Abdomen, Obese, Hypoactive Bowel Sounds Genitourinary: Yes: Duvall Present Edema: No Peripheral Pulses WNL: No Peripheral Pulses: Left Doralis Pedis: 1+, Right Dorsalis Pedis: 1+ Integumentary: Yes: Other (Generalized Bleeding blisters) Neurological: Yes: Alert, Lethargy Labs: CBC, BMP 12/24/19 05:38 12/24/19 05:38 INR, PTT INR 1.29 (0.83-1.09) H 12/15/19 11:01 Problem List - Problems (1) Acute respiratory failure Assessment/Plan: -Mech vent -Pulmonary consult -IV Cefazolin + meropenem -Enteral feeds- new NGT placed -Bronchodilators Problems reviewed: Yes Code(s): J96.00 - ACUTE RESPIRATORY FAILURE, UNSP W HYPOXIA OR HYPERCAPNIA (2) Bullous pemphigoid Assessment/Plan: -Cellcept discontinued 07/20 to GI bleed -Silvadene top Problems reviewed: Yes Code(s): L12.0 - BULLOUS PEMPHIGOID (3) Acute on chronic renal insufficiency Assessment/Plan: -Nephrology on board -monitor daily labs Problems reviewed: Yes Code(s): N28.9 - DISORDER OF KIDNEY AND URETER, UNSPECIFIED; N18.9 - CHRONIC KIDNEY DISEASE, UNSPECIFIED (4) Pneumonia Assessment/Plan: -Likely aspiration -CXR reviewed -Repeat COVID 19 PCR negative -IV abx -ID consult -Lactic acidosis noted Problems reviewed: Yes Code(s): J18.9 - PNEUMONIA, UNSPECIFIED ORGANISM (5) Afib Assessment/Plan: -Chronic, rate controlled -Eliquis Held due to acute GI bleed -Transfuse only if Hg <7.0 to avoid fluid overload Problems reviewed: Yes Code(s): I48.91 - UNSPECIFIED ATRIAL FIBRILLATION (6) Anemia Assessment/Plan: -Chronic -workup last admission was negative -hematology consult -Transfuse only if hg<7.0 to avoid fluid overload. Problems reviewed: Yes Code(s): D64.9 - ANEMIA, UNSPECIFIED (7) Bacteremia Assessment/Plan: -Febrile overnight -Repeat BC pending -IV abx -ID on board Problems reviewed: Yes Code(s): R78.81 - BACTEREMIA Assessment/Plan See problem list Ongoing discussion with family regarding comfort care. GI PPX
[2019-12-24] MEDS ORDERED: MORPHINE SULFATE 2 MG/ML VIAL IM PRN (13:36)
[2019-12-24] MEDS ORDERED: FENTANYL NS IVPB 500 MCG/100 ML BAG IVPB ONE (20:04)
--- NOTE | 2019-12-24 20:25 | PN ---
Progress Note, Physician History of Present Illness: REMAINS INTUBATED IN ICU TEMP NOTED WBC 10.5 AZOTEMIA IMPROVED BC MSSA (12/06) BC (12/07) NO GROWTH - Current Medication List Current Medications: Active Medications Albuterol/Ipratropium (Duoneb -) 1 amp NEB Q4H PRN PRN Reason: SHORT OF BREATH/WHEEZING Last Admin: 12/08/19 02:38 Dose: 1 amp Documented by: Artificial Tears (Artificial Tears) 1 drop OU BID PRN PRN Reason: DRY EYES Last Admin: 12/17/19 10:22 Dose: 1 drop Documented by: Cefazolin Sodium 500 mg/ (Dextrose) 50 mls @ 100 mls/hr IVPB BID MICHAEL Last Admin: 12/24/19 10:51 Dose: 100 mls/hr Documented by: Meropenem 500 mg/ Dextrose 100 mls @ 200 mls/hr IVPB Q12H MICHAEL Last Admin: 12/24/19 14:14 Dose: 200 mls/hr Documented by: Fentanyl (Sublimaze Ivpb) 500 mcg in 100 mls @ 21.614 mls/hr IVPB TITR MICHAEL; Protocol Last Titration: 12/24/19 14:17 Dose: 0.46 mcg/kg/hr, 10 mls/hr Documented by: Propofol (Diprivan -) 1,000,000 mcg in 100 mls @ 3.164 mls/hr IVPB TITR MICHAEL; Protocol Last Titration: 12/24/19 06:10 Dose: 0 mcg/kg/min, 0 mls/hr Documented by: Dexmedetomidine/Sodium Chloride (Precedex 400 Mcg/100 Ml Inject) 400 mcg in 100 mls @ 5.3 mls/hr IVPB TITR MICHAEL Last Infusion: 12/24/19 14:17 Dose: 0.2 mcg/kg/hr, 5.3 mls/hr Documented by: Midazolam HCl (Midazolam 100mg/100ml-0.9%Nacl) 100 mg in 100 mls @ 1 mls/hr IVPB TITR MICHAEL; Protocol Last Infusion: 12/24/19 15:25 Dose: 0 mg/hr, 0 mls/hr Documented by: Insulin Aspart (Novolog Vial Sliding Scale -) 1 vial SQ ACHS MICHAEL; Protocol Last Admin: 12/24/19 17:22 Dose: Not Given Documented by: Levetiracetam (Keppra Injection -) 500 mg IVPB BID [facility] Last Admin: 12/24/19 09:43 Dose: 500 mg Documented by: Levothyroxine Sodium (Synthroid Injection -) 20 mcg IVPUSH DAILY [facility] Last Admin: 12/24/19 10:56 Dose: 20 mcg Documented by: Morphine Sulfate (Morphine Sulfate) 0.5 mg IM Q3H PRN PRN Reason: PAIN LEVEL 6-10 Pantoprazole Sodium (Protonix Iv) 40 mg IVPUSH DAILY [facility] Last Admin: 12/24/19 09:43 Dose: 40 mg Documented by: Rosuvastatin Calcium (Crestor -) 10 mg PO HS [facility] Last Admin: 12/23/19 21:36 Dose: Not Given Documented by: Scopolamine HBr (Transderm-Scop -) 1 patch TD Q72H [facility] Last Admin: 12/23/19 21:37 Dose: 1 patch Documented by: Sevelamer Carbonate (Renvela Powder Packet -) 0.8 gm PO TIDCM [facility] Last Admin: 12/24/19 17:23 Dose: 0.8 gm Documented by: Silver Sulfadiazine (Silvadene -) 1 applic TP BID [facility] Last Admin: 12/24/19 11:00 Dose: 1 applic Documented by: - Objective Vital Signs: Vital Signs Temperature 96.2 F L 12/24/19 18:00 Pulse Rate 60 12/24/19 18:00 Respiratory Rate 18 12/24/19 18:00 Blood Pressure 116/58 L 12/24/19 18:00 O2 Sat by Pulse Oximetry (%) 100 12/24/19 16:30 Constitutional: Yes: No Distress Eyes: Yes: Conjunctiva Clear Cardiovascular: Yes: Regular Rate and Rhythm, S1, S2 Respiratory: Yes: Mechanically Ventilated Gastrointestinal: Yes: Normal Bowel Sounds, Soft. No: Tenderness Edema: Yes Labs: CBC, BMP 12/24/19 05:38 12/24/19 05:38 INR, PTT INR 1.29 (0.83-1.09) H 12/15/19 11:01 Assessment/Plan + BLOOD C/S MSSA PROBABLE SKIN SOURCE ACUTE RESP FAILURE PNEUMOMIA + SPUTUM C/S MEROPENEM AZOTEMIA PLANTAR ULCER HEALED BULOUS PEMPHIGOID CEFAZOLIN/ MEROPENEM ADJUSTED FOR RENAL FAILURE REPEAT BC NO GROWTH ECHO NO VEGETATIONS VENTILATORY/ HEMODYNAMIC SUPPORT PROGNOSIS POOR
[2019-12-24] MEDS: ROSUVASTATIN CA 10 MG TABLET (FP) PO SCH (21:19)
[2019-12-25] MEDS ORDERED: MEROPENEM 500 MG VIAL (RESTRICTED TO ID) IVPB ONE ×3 (00:46→21:59)
[2019-12-25] MEDS ORDERED: DEXTROSE 5%-WATER 100 ML IVPB ONE ×3 (00:46→21:59)
[2019-12-25] MEDS: MEROPENEM 500 MG in DEXTROSE 5%-WATER 100 ML IVPB SCH ×2 (00:53→11:51)
[2019-12-25] MEDS: FENTANYL NS IVPB 500 MCG/100 ML BAG IVPB SCH (01:30)
[2019-12-25] MEDS: PROPOFOL 1,000,000 MCG/100 ML VIAL IVPB SCH (02:35)
[2019-12-25 06:31] LABS: HEMATOCRIT 28.6 % (35.4-49); HEMOGLOBIN 9.2 GM/dL (11.7-16.9); MCH 29.5 pg (25.7-33.7); MCHC 32.1 g/dl (32.0-35.9); MEAN CELL VOLUME 91.9 fl (80-96); MEAN PLT VOLUME 7.9 fl (7.5-11.1); PLATELET COUNT 233 K/MM3 (134-434); RBC 3.11 M/mm3 (4.00-5.60); RDW 16.4 % (11.9-15.9); WHITE BLOOD COUNT 7.1 K/mm3 (4.0-10.0)
[2019-12-25 06:53] LABS: BILIRUBIN,TOTAL 0.8 mg/dL (0.2-1); CALCIUM 7.8 mg/dL (8.5-10.1); CREATININE 2.8 mg/dL (0.55-1.3); MAGNESIUM 1.8 mg/dL (1.8-2.4); PHOSPHOROUS 6.1 mg/dL (2.5-4.9); POTASSIUM 3.9 mmol/L (3.5-5.1); TOT PROT 5.6 g/dl (6.4-8.2)
[2019-12-25] MEDS: INSULIN SLIDING SCALE (NOVOLOG) 1 VIAL SQ SCH ×4 (07:12→22:44)
[2019-12-25 07:16] LABS: BLOOD UREA NITROGEN 112.2 mg/dL (7-18)
[2019-12-25] MEDS: SEVELAMER CARBONATE 0.8 GM POWDER PACKET PO SCH ×3 (08:15→17:57)
--- NOTE | 2019-12-25 08:32 | PN ---
Physical Exam: SUBJECTIVE: Patient seen and examined. Pt is currently sedated and intubated in the ICU. Precedex and Versed stopped d/t bradycardia overnight; replaced with propofol. Pt was afebrile. Ventilated on volume-assist control Vent: RR 18, TV 450, FiO2 40%, PEEP 5 Drips: Fentanyl 100, Propofol 25 OBJECTIVE: Vital Signs Period Temp Pulse Resp BP Sys/Hair Pulse Ox Last 24 Hr 96.2 F-99.1 F 47-80 14-24 116-139/46-77 99-100 GENERAL: The patient is intubated and sedated. ENT: moist mucous membranes, bloody secretion again noted in oropharyngeal area. LUNGS: Breath sounds equal, clear to auscultation bilaterally, no wheezes, no crackles. HEART: Regular rate and rhythm, S1, S2. ABDOMEN: Soft, nontender, nondistended, and normoactive bowel sounds. EXTREMITIES: 2+ pulses, warm, well-perfused, + edema. SKIN: multiple skin ulcerations throughout body, non cellulitic Laboratory Results - last 24 hr 12/24/19 12/24/19 12/24/19 12:01 16:48 23:34 WBC RBC Hgb Hct MCV MCH MCHC RDW Plt Count MPV Sodium Potassium Chloride Carbon Dioxide Anion Gap BUN Creatinine Est GFR (CKD-EPI)AfAm Est GFR (CKD-EPI)NonAf POC Glucometer 75 85 85 Random Glucose Calcium Phosphorus Magnesium Total Bilirubin AST ALT Alkaline Phosphatase Total Protein Albumin 12/25/19 12/25/19 12/25/19 05:50 05:50 07:09 WBC 7.1 RBC 3.11 L Hgb 9.2 L Hct 28.6 L MCV 91.9 MCH 29.5 MCHC 32.1 RDW 16.4 H Plt Count 233 MPV 7.9 Sodium 141 Potassium 3.9 Chloride 106 Carbon Dioxide 23 Anion Gap 12 BUN 112.2 H* Creatinine 2.8 H Est GFR (CKD-EPI)AfAm 23.46 Est GFR (CKD-EPI)NonAf 20.24 POC Glucometer 76 Random Glucose 76 Calcium 7.8 L Phosphorus 6.1 H Magnesium 1.8 Total Bilirubin 0.8 AST 42 H ALT 9 L Alkaline Phosphatase 114 Total Protein 5.6 L Albumin 2.0 L Active Medications Generic Name Dose Route Start Last Admin Trade Name Freq PRN Reason Stop Dose Admin Albuterol/Ipratropium 1 amp 12/07/19 13:25 12/08/19 02:38 Duoneb - NEB 1 amp Q4H PRN Administration SHORT OF BREATH/WHEEZING Artificial Tears 1 drop 12/15/19 07:31 12/17/19 10:22 Artificial Tears OU 1 drop BID PRN Administration DRY EYES Cefazolin Sodium 500 mg/ 50 mls @ 100 mls/hr 12/12/19 12:45 12/24/19 21:19 Dextrose IVPB 100 mls/hr BID MICHAEL Administration Meropenem 500 mg/ Dextrose 100 mls @ 200 mls/hr 12/12/19 12:45 12/25/19 00:53 IVPB 200 mls/hr Q12H MICHAEL Administration Fentanyl 500 mcg in 100 mls @ 21.614 mls/hr 12/17/19 01:15 12/25/19 07:22 Sublimaze Ivpb IVPB 0.93 mcg/kg/hr TITR MICHAEL 20 mls/hr Titration Protocol 1 MCG/KG/HR Propofol 1,000,000 mcg in 100 mls @ 3.164 mls/hr 12/18/19 02:15 12/25/19 02:35 Diprivan - IVPB 20 mcg/kg/min TITR MICHAEL 12.655 mls/hr Administration Protocol 5 MCG/KG/MIN Insulin Aspart 1 vial 12/10/19 07:00 12/25/19 07:12 Novolog Vial Sliding Scale - SQ Not Given ACHS MICHAEL Protocol Levetiracetam 500 mg 12/09/19 10:00 12/24/19 21:18 Keppra Injection - IVPB 500 mg BID MICHAEL Administration Levothyroxine Sodium 20 mcg 12/09/19 10:00 12/24/19 10:56 Synthroid Injection - IVPUSH 20 mcg DAILY MICHAEL Administration Morphine Sulfate 0.5 mg 12/24/19 13:36 Morphine Sulfate IM Q3H PRN PAIN LEVEL 6-10 Pantoprazole Sodium 40 mg 12/09/19 10:00 12/24/19 09:43 Protonix Iv IVPUSH 40 mg DAILY MICHAEL Administration Rosuvastatin Calcium 10 mg 12/07/19 22:00 12/24/19 21:19 Crestor - PO 10 mg HS MICHAEL Administration Scopolamine HBr 1 patch 12/17/19 22:00 12/23/19 21:37 Transderm-Scop - TD 1 patch Q72H MICHAEL Administration Sevelamer Carbonate 0.8 gm 12/16/19 17:30 12/25/19 08:15 Renvela Powder Packet - PO 0.8 gm TIDCM MICHAEL Administration Silver Sulfadiazine 1 applic 12/15/19 12:45 12/24/19 21:19 Silvadene - TP 1 applic BID MICHAEL Administration ASSESSMENT/PLAN: 79 y/o male PMH dCHF, afib, CAD s/p PCI, HTN, seizure d/o, CVA with right sided residual deficit, CKD, hypothyroidism, and bullous pemphigoid. He is now s/p cardiopulmonary arrest (on 12/09/2019) and possible aspiration pneumonia, admitted to the ICU due to acute hypoxic respiratory failure. He was anemic on 12/19 with Hb of 6.3 and received 3 U pRBCs. Hb has since stabilized. # Neuro: Seizure disorder h/o CVA with right-side residual deficit - Sedated on fentanyl and precedex - On Keppra - Sedation vacation daily to assess mental status # Card: Afib diastolic CHF CAD HTN Anemia - Hb 9.2; Continue to monitor. Transfuse if Hb <8. - Hold Eliquis - On rosuvastatin # Pulm ARDS, aspiration PNA -Mechanically ventilated. Wean as tolerated. CXR showing improvement. -Will likely need tracheostomy for prolonged intubation and failure to wean; will discuss this option with family during family meeting -On albuterol-ipratropium -Will not obtain daily ABG unless clinically significant change. Recent trend has been stable. # ID - Sputum culture grew pseudomonas. - c/w Cefazolin (12/11) and Meropenem (12/11) per ID recommendation. # Renal - Slight improvement in LETITIA on CKD - Continue monitoring I/O, BUN, Cr - Nephro reconsulted regarding hemodialysis. D/C'ed tamsulosin due to pt having puri. Continue to follow Nephro recs. - On Renvela #Endo -ISS + BGM -On synthroid # Skin - Silvadene # FEN - NG tube placed and resuming trickle feeds #Lines, tubes, drains: 12/08 - ETT # Prophylaxis: - DVT: Hold eliquis; SCDs - GI: Protonix # Code Status / Family Conversation: - Full Code - Dr. Branch of palliative care consulted. Will f/u recommendations. - Discussing GOC with both son and tomorrow at 3 pm with palliative care present (Mandy): [phone] Visit type - Emergency Visit Emergency Visit: Yes ED Registration Date: 12/03/19 Care time: The patient presented to the Emergency Department on the above date and was hospitalized for further evaluation of their emergent condition. - New Patient This patient is new to me today: No - Critical Care Critical Care patient: Yes Total Critical Care Time (in minutes): 38 Critical Care Statement: The care of this patient involved high complexity decision making to prevent further life threatening deterioration of the patient's condition and/or to evaluate & treat vital organ system(s) failure or risk of failure. ATTENDING PHYSICIAN STATEMENT I saw and evaluated the patient. I reviewed the resident's note and discussed the case with the resident. I agree with the resident's findings and plan as documented. SUBJECTIVE: OBJECTIVE: ASSESSMENT AND PLAN:
[2019-12-25] MEDS: SILVER SULFADIAZINE 1% TOP CREAM 50 GM JAR TP SCH ×2 (09:44→21:32)
[2019-12-25] MEDS: PANTOPRAZOLE SODIUM 40 MG VIAL IVPUSH SCH (09:44)
[2019-12-25] MEDS: levETIRAcetam 500 MG/5 ML INJECTION VIAL IVPB SCH ×2 (09:44→21:31)
[2019-12-25] MEDS ORDERED: PT OWN MED DRAWER 7, Y5N ONE ×2 (09:46→22:00)
[2019-12-25] MEDS: LEVOTHYROXINE SODIUM 100 MCG VIAL IVPUSH SCH (09:47)
[2019-12-25] MEDS: CEFAZOLIN 500 MG in DEXTROSE 5%-WATER - 50 ML IVPB SCH ×2 (09:47→21:32)
--- NOTE | 2019-12-25 10:20 | PN ---
Progress Note, Physician Chief Complaint: s/p Cardiopulmonary Arrest Acute Hypoxic and Hypercapneic Respiratory Failure Likely Aspiration Pneumonia Septic Shock Acute on Chronic Renal Failure Lactic Acidosis Bullous Pemphigoid CAD LV Diastolic Dysfunction Atrial Fibrillation Seizure Disorder h/o CVA Hypothyroidism Anemia Thrombocytopenia History of Present Illness: Remains intubated in ICU on Sedation, just turned off to try weaning - Current Medication List Current Medications: Active Medications Artificial Tears (Artificial Tears) 1 drop OU BID PRN PRN Reason: DRY EYES Last Admin: 12/17/19 10:22 Dose: 1 drop Documented by: Cefazolin Sodium 500 mg/ (Dextrose) 50 mls @ 100 mls/hr IVPB BID [facility] Last Admin: 12/25/19 09:47 Dose: 100 mls/hr Documented by: Meropenem 500 mg/ Dextrose 100 mls @ 200 mls/hr IVPB Q12H [facility] Last Admin: 12/25/19 00:53 Dose: 200 mls/hr Documented by: Fentanyl (Sublimaze Ivpb) 500 mcg in 100 mls @ 21.614 mls/hr IVPB TITR [facility]; Pr otocol Last Titration: 12/25/19 07:22 Dose: 0.93 mcg/kg/hr, 20 mls/hr Documented by: Propofol (Diprivan -) 1,000,000 mcg in 100 mls @ 3.164 mls/hr IVPB TITR [facility]; Protocol Last Titration: 12/25/19 08:27 Dose: 25 mcg/kg/min, 15.819 mls/hr Documented by: Insulin Aspart (Novolog Vial Sliding Scale -) 1 vial SQ ACHS [facility]; Protocol Last Admin: 12/25/19 07:12 Dose: Not Given Documented by: Levetiracetam (Keppra Injection -) 500 mg IVPB BID [facility] Last Admin: 12/25/19 09:44 Dose: 500 mg Documented by: Levothyroxine Sodium (Synthroid Injection -) 20 mcg IVPUSH DAILY [facility] Last Admin: 12/25/19 09:47 Dose: 20 mcg Documented by: Morphine Sulfate (Morphine Sulfate) 0.5 mg IM Q3H PRN PRN Reason: PAIN LEVEL 6-10 Pantoprazole Sodium (Protonix Iv) 40 mg IVPUSH DAILY [facility] Last Admin: 12/25/19 09:44 Dose: 40 mg Documented by: Rosuvastatin Calcium (Crestor -) 10 mg PO HS [facility] Last Admin: 12/24/19 21:19 Dose: 10 mg Documented by: Scopolamine HBr (Transderm-Scop -) 1 patch TD Q72H [facility] Last Admin: 12/23/19 21:37 Dose: 1 patch Documented by: Sevelamer Carbonate (Renvela Powder Packet -) 0.8 gm PO TIDCM [facility] Last Admin: 12/25/19 08:15 Dose: 0.8 gm Documented by: Silver Sulfadiazine (Silvadene -) 1 applic TP BID [facility] Last Admin: 12/25/19 09:44 Dose: 1 applic Documented by: - Objective Vital Signs: Vital Signs Temperature 97.1 F L 12/25/19 08:00 Pulse Rate 72 12/25/19 08:00 Respiratory Rate 18 12/25/19 09:00 Blood Pressure 126/54 L 12/25/19 08:00 O2 Sat by Pulse Oximetry (%) 100 12/25/19 09:00 Constitutional: Yes: Well Nourished, No Distress, Calm Cardiovascular: Yes: Regular Rate and Rhythm Respiratory: Yes: Diminished (BLL), Mechanically Ventilated Gastrointestinal: Yes: Normal Bowel Sounds, Soft Genitourinary: Yes: Duvall Present Edema: No Peripheral Pulses WNL: No Peripheral Pulses: Left Doralis Pedis: 1+, Right Dorsalis Pedis: 1+ Integumentary: Yes: Other (Generalized blisters) Neurological: Yes: Other (sedated) Labs: CBC, BMP 12/25/19 05:50 12/25/19 05:50 INR, PTT INR 1.29 (0.83-1.09) H 12/15/19 11:01 Problem List - Problems (1) Acute respiratory failure Assessment/Plan: -Mech vent -Pulmonary consult -IV Cefazolin + meropenem -Enteral feeds-restarted,tolerating well -Bronchodilators Problems reviewed: Yes Code(s): J96.00 - ACUTE RESPIRATORY FAILURE, UNSP W HYPOXIA OR HYPERCAPNIA (2) Bullous pemphigoid Assessment/Plan: -Cellcept discontinued 2/2 to GI bleed -Silvadene top Problems reviewed: Yes Code(s): L12.0 - BULLOUS PEMPHIGOID (3) Acute on chronic renal insufficiency Assessment/Plan: -Nephrology on board -monitor daily labs Problems reviewed: Yes Code(s): N28.9 - DISORDER OF KIDNEY AND URETER, UNSPECIFIED; N18.9 - CHRONIC KIDNEY DISEASE, UNSPECIFIED (4) Pneumonia Assessment/Plan: -Likely aspiration -CXR reviewed -Repeat COVID 19 PCR negative -IV abx -ID consult -Lactic acidosis noted Problems reviewed: Yes Code(s): J18.9 - PNEUMONIA, UNSPECIFIED ORGANISM (5) Afib Assessment/Plan: -Chronic, rate controlled -Eliquis Held due to acute GI bleed -Transfuse only if Hg <7.0 to avoid fluid overload Problems reviewed: Yes Code(s): I48.91 - UNSPECIFIED ATRIAL FIBRILLATION (6) Anemia Assessment/Plan: -Chronic -H/H stable at this time -workup last admission was negative -hematology consult -Transfuse only if hg<7.0 to avoid fluid overload. Problems reviewed: Yes Code(s): D64.9 - ANEMIA, UNSPECIFIED (7) Bacteremia Assessment/Plan: -Repeat BC negative -IV abx -ID on board Problems reviewed: Yes Code(s): R78.81 - BACTEREMIA Assessment/Plan See problem list Ongoing discussion with family regarding comfort care. Family is coming in at 3 pm to meet with Palliative care team. GI PPX
--- NOTE | 2019-12-25 11:18 | PN ---
Teaching Attending Note Name of Resident: Kelly Orellana ATTENDING PHYSICIAN STATEMENT I saw and evaluated the patient. I reviewed the resident's note and discussed the case with the resident. I agree with the resident's findings and plan as documented. SUBJECTIVE: Pt seen and examined in the ICU. Remains intubated, sedated. No pressors. Not tolerating weaning trials off sedation. No fevers. OBJECTIVE: Vital Signs Period Temp Pulse Resp BP Sys/Hair Pulse Ox Last 24 Hr 96.2 F-99.1 F 47-80 14-24 116-139/46-69 100-100 Intake & Output 12/22/19 12/23/19 12/24/19 12/25/19 23:59 23:59 23:59 23:59 Intake Total 720 44773 1465 837 Output Total 2000 2200 600 1000 Balance -1280 52180 865 -163 Weight 105.878 kg 106 kg 106 kg 106 kg Gen: intubated, sedated Heart: RRR Lung; scattered rhonchi Abd: soft, nontender Ext: + edema CBC, BMP 12/25/19 05:50 12/25/19 05:50 Active Medications Artificial Tears (Artificial Tears) 1 drop OU BID PRN PRN Reason: DRY EYES Last Admin: 12/17/19 10:22 Dose: 1 drop Documented by: Cefazolin Sodium 500 mg/ (Dextrose) 50 mls @ 100 mls/hr IVPB BID [facility] Last Admin: 12/25/19 09:47 Dose: 100 mls/hr Documented by: Meropenem 500 mg/ Dextrose 100 mls @ 200 mls/hr IVPB Q12H [facility] Last Admin: 12/25/19 00:53 Dose: 200 mls/hr Documented by: Fentanyl (Sublimaze Ivpb) 500 mcg in 100 mls @ 21.614 mls/hr IVPB TITR [facility]; Protocol Last Titration: 12/25/19 07:22 Dose: 0.93 mcg/kg/hr, 20 mls/hr Documented by: Propofol (Diprivan -) 1,000,000 mcg in 100 mls @ 3.164 mls/hr IVPB TITR [facility]; Protocol Last Titration: 12/25/19 08:27 Dose: 25 mcg/kg/min, 15.819 mls/hr Documented by: Insulin Aspart (Novolog Vial Sliding Scale -) 1 vial SQ ACHS [facility]; Protocol Last Admin: 12/25/19 07:12 Dose: Not Given Documented by: Levetiracetam (Keppra Injection -) 500 mg IVPB BID [facility] Last Admin: 12/25/19 09:44 Dose: 500 mg Documented by: Levothyroxine Sodium (Synthroid Injection -) 20 mcg IVPUSH DAILY [facility] Last Admin: 12/25/19 09:47 Dose: 20 mcg Documented by: Morphine Sulfate (Morphine Sulfate) 0.5 mg IM Q3H PRN PRN Reason: PAIN LEVEL 6-10 Pantoprazole Sodium (Protonix Iv) 40 mg IVPUSH DAILY [facility] Last Admin: 12/25/19 09:44 Dose: 40 mg Documented by: Rosuvastatin Calcium (Crestor -) 10 mg PO HS [facility] Last Admin: 12/24/19 21:19 Dose: 10 mg Documented by: Scopolamine HBr (Transderm-Scop -) 1 patch TD Q72H [facility] Last Admin: 12/23/19 21:37 Dose: 1 patch Documented by: Sevelamer Carbonate (Renvela Powder Packet -) 0.8 gm PO TIDCM [facility] Last Admin: 12/25/19 08:15 Dose: 0.8 gm Documented by: Silver Sulfadiazine (Silvadene -) 1 applic TP BID [facility] Last Admin: 12/25/19 09:44 Dose: 1 applic Documented by: ASSESSMENT AND PLAN: s/p Cardiopulmonary Arrest Acute Hypoxic and Hypercapneic Respiratory Failure Likely Aspiration Pneumonia Septic Shock Acute on Chronic Renal Failure Lactic Acidosis Bullous Pemphigoid CAD LV Diastolic Dysfunction Atrial Fibrillation Seizure Disorder h/o CVA Hypothyroidism Anemia Thrombocytopenia - continue antibiotics - monitor H/H - monitor urine output, creatinine - rate control - daily sedation vacation to assess mental status - continue volume assist control - enteral feeds - DVT/GI prophylaxis - ICU monitoring - will likely need tracheostomy for prolonged intubation and failure to wean critical care time spent in reviewing chart, evaluating patient and formulating plan 35 min
--- NOTE | 2019-12-25 13:55 | PN ---
Progress Note, Physician History of Present Illness: Pt seen and examined at bedside. He remains in the ICU. He remains intubated. - Current Medication List Current Medications: Active Medications Artificial Tears (Artificial Tears) 1 drop OU BID PRN PRN Reason: DRY EYES Last Admin: 12/17/19 10:22 Dose: 1 drop Documented by: Cefazolin Sodium 500 mg/ (Dextrose) 50 mls @ 100 mls/hr IVPB BID [facility] Last Admin: 12/25/19 09:47 Dose: 100 mls/hr Documented by: Meropenem 500 mg/ Dextrose 100 mls @ 200 mls/hr IVPB Q12H [facility] Last Admin: 12/25/19 11:51 Dose: 200 mls/hr Documented by: Fentanyl (Sublimaze Ivpb) 500 mcg in 100 mls @ 21.614 mls/hr IVPB TITR [facility]; Protocol Last Titration: 12/25/19 07:22 Dose: 0.93 mcg/kg/hr, 20 mls/hr Documented by: Propofol (Diprivan -) 1,000,000 mcg in 100 mls @ 3.164 mls/hr IVPB TITR [facility]; Protocol Last Titration: 12/25/19 08:27 Dose: 25 mcg/kg/min, 15.819 mls/hr Documented by: Insulin Aspart (Novolog Vial Sliding Scale -) 1 vial SQ ACHS [facility]; Protocol Last Admin: 12/25/19 11:52 Dose: Not Given Documented by: Levetiracetam (Keppra Injection -) 500 mg IVPB BID [facility] Last Admin: 12/25/19 09:44 Dose: 500 mg Documented by: Levothyroxine Sodium (Synthroid Injection -) 20 mcg IVPUSH DAILY [facility] Last Admin: 12/25/19 09:47 Dose: 20 mcg Documented by: Morphine Sulfate (Morphine Sulfate) 0.5 mg IM Q3H PRN PRN Reason: PAIN LEVEL 6-10 Pantoprazole Sodium (Protonix Iv) 40 mg IVPUSH DAILY [facility] Last Admin: 12/25/19 09:44 Dose: 40 mg Documented by: Rosuvastatin Calcium (Crestor -) 10 mg PO HS [facility] Last Admin: 12/24/19 21:19 Dose: 10 mg Documented by: Scopolamine HBr (Transderm-Scop -) 1 patch TD Q72H [facility] Last Admin: 12/23/19 21:37 Dose: 1 patch Documented by: Sevelamer Carbonate (Renvela Powder Packet -) 0.8 gm PO TIDCM [facility] Last Admin: 12/25/19 08:15 Dose: 0.8 gm Documented by: Silver Sulfadiazine (Silvadene -) 1 applic TP BID [facility] Last Admin: 12/25/19 09:44 Dose: 1 applic Documented by: - Objective Vital Signs: Vital Signs Temperature 97.5 F L 12/25/19 12:00 Pulse Rate 80 12/25/19 12:00 Respiratory Rate 18 12/25/19 12:00 Blood Pressure 127/63 12/25/19 12:00 O2 Sat by Pulse Oximetry (%) 100 12/25/19 10:00 Constitutional: Yes: Calm Eyes: Yes: Conjunctiva Clear HENT: Yes: Atraumatic Neck: Yes: Supple Cardiovascular: Yes: S1, S2 Respiratory: Yes: Mechanically Ventilated Gastrointestinal: Yes: Soft Genitourinary: Yes: WNL Musculoskeletal: Yes: Muscle Weakness Edema: Yes Edema: LLE: Trace, RLE: Trace Neurological: Yes: Lethargy Labs: CBC, BMP 12/25/19 05:50 12/25/19 05:50 INR, PTT INR 1.29 (0.83-1.09) H 12/15/19 11:01 Problem List - Problems (1) Acute respiratory failure Code(s): J96.00 - ACUTE RESPIRATORY FAILURE, UNSP W HYPOXIA OR HYPERCAPNIA (2) Bullous pemphigoid Code(s): L12.0 - BULLOUS PEMPHIGOID Assessment/Plan Current Medications Generic Name Dose Route Start Last Admin Trade Name Chineduq PRN Reason Stop Dose Admin Artificial Tears 1 drop 12/15/19 07:31 12/17/19 10:22 Artificial Tears OU 1 drop BID PRN Administration DRY EYES Cefazolin Sodium 500 mg/ 50 mls @ 100 mls/hr 12/12/19 12:45 12/25/19 09:47 Dextrose IVPB 100 mls/hr BID [facility] Administration Meropenem 500 mg/ Dextrose 100 mls @ 200 mls/hr 12/12/19 12:45 12/25/19 11:51 IVPB 200 mls/hr Q12H [facility] Administration Fentanyl 500 mcg in 100 mls @ 21.614 mls/hr 12/17/19 01:15 12/25/19 07:22 Sublimaze Ivpb IVPB 0.93 mcg/kg/hr TITR [facility] 20 mls/hr Titration Protocol 1 MCG/KG/HR Propofol 1,000,000 mcg in 100 mls @ 3.164 mls/hr 12/18/19 02:15 12/25/19 08:27 Diprivan - IVPB 25 mcg/kg/min TITR [facility] 15.819 mls/hr Titration Protocol 5 MCG/KG/MIN Insulin Aspart 1 vial 12/10/19 07:00 12/25/19 11:52 Novolog Vial Sliding Scale - SQ Not Given ACHS [facility] Protocol Levetiracetam 500 mg 12/09/19 10:00 12/25/19 09:44 Keppra Injection - IVPB 500 mg BID [facility] Administration Levothyroxine Sodium 20 mcg 12/09/19 10:00 12/25/19 09:47 Synthroid Injection - IVPUSH 20 mcg DAILY [facility] Administration Morphine Sulfate 0.5 mg 12/24/19 13:36 Morphine Sulfate IM Q3H PRN PAIN LEVEL 6-10 Pantoprazole Sodium 40 mg 12/09/19 10:00 12/25/19 09:44 Protonix Iv IVPUSH 40 mg DAILY [facility] Administration Rosuvastatin Calcium 10 mg 12/07/19 22:00 12/24/19 21:19 Crestor - PO 10 mg HS [facility] Administration Scopolamine HBr 1 patch 12/17/19 22:00 12/23/19 21:37 Transderm-Scop - TD 1 patch Q72H [facility] Administration Sevelamer Carbonate 0.8 gm 12/16/19 17:30 12/25/19 08:15 Renvela Powder Packet - PO 0.8 gm TIDCM [facility] Administration Silver Sulfadiazine 1 applic 12/15/19 12:45 12/25/19 09:44 Silvadene - TP 1 applic BID [facility] Administration Impression 1. CKD 2. CHF 3. BPH 4. a. fib 5. CAD 6. epilepsy 7. proteinuria 8. anemia 9. foot ulcer 10. abd wall cellulitis 11. bullous pemphigoid 12. DAYANA 13. hyperkalemia 14. cardiac arrest 15. resp failure on vent 16. r/o aspiration Plan - cont vent support - monitor mental status - monitor lytes and color specialist - no indication for HD - cont cellcept for bullous pemphigoid - maintain map 65 - dayana on ckd likely atn post cardiac arrest
[2019-12-25] MEDS: SCOPOLAMINE HYDROBROMIDE 1 PATCH PATCH.TD72 TD SCH (14:42)
[2019-12-25] MEDS: ARTIFICIAL TEARS (POLYVINYL ALCOHOL) OPTH DROPS OU PRN (15:46)
--- NOTE | 2019-12-25 16:52 | PN ---
Progress Note (short form) - Note Progress Note: Palliative care f/up Pt is an 79 y/o male with chronic anemia, diastolic CHF (EF 50-55% 12/05), a-fib (on Eliquis), CAD s/p PCI, HTN, HLD, CVA (right side residual weakness), seizure disorder, CKD stage 4, hypothyroidism, bullous pemphigoid (started 03/05), colon cancer s/p rt hemicolectomy, and right foot ulcer who had prolonged hospitalization 11/12- 12/02 for infected rt foot ulcer and anemia - STR recommended but patient and family opted for [facility] [employer] [employer]. He was discharged and came back the same day for generalized weakness. At baseline he uses electric w/c but able to transfer in and out of it but unable to get out of the car this time with assistance from his . He recently was discharged from a nursing facility for rehab before being admitted for 3 weeks at [facility]. He was previously wheelchair-bound but able to do some ADLs independently. He agreed for STR rehab and dc was planned when patient had a rapid response on 12/08, aspiration suspected. He has been intubated since then. He was treated with pressors, a/bs- now off pressors. He has remained intubated and on mechanical ventilator since. He is on enteral feeds. Family wants full code and have agreed to trach. Remains in ICU intubated on mechanical ventilator off pressors sedated as pt gets agitated off sedation VSS unresponsive on 40% Fio2 ++ edema ++ multiple skin ulcerations labs reviewed s/p 3 U PRBC bun/cr 117/2.8 Respiratory failure on mechanical ventilator off pressors aspiration pneumonia on t/feeds CHF ac on CKD CAD A Fib Chr anemia seizure disorder Patient is an elderly gentleman with poor baseline functional status, CHF and CKD stage 4 now s/p aspiration pneumonitis, cardiac arrest and respiratory failure, hx of A Fib off eliquis secondary to recent GI bleed, hx of CVA. Prognosis is poor. Patient with multiple comorbidities and poor functional status at baseline. CPR would probably be medically futile. Family wishes for full code and have agreed for tracheotomy. Problem List - Problems (1) Acute respiratory failure Code(s): J96.00 - ACUTE RESPIRATORY FAILURE, UNSP W HYPOXIA OR HYPERCAPNIA (2) Bacteremia Code(s): R78.81 - BACTEREMIA (3) Bullous pemphigoid Code(s): L12.0 - BULLOUS PEMPHIGOID (4) Acute on chronic renal insufficiency Code(s): N28.9 - DISORDER OF KIDNEY AND URETER, UNSPECIFIED; N18.9 - CHRONIC KIDNEY DISEASE, UNSPECIFIED (5) Acute on chronic systolic congestive heart failure Code(s): I50.23 - ACUTE ON CHRONIC SYSTOLIC (CONGESTIVE) HEART FAILURE (6) Afib Code(s): I48.91 - UNSPECIFIED ATRIAL FIBRILLATION (7) CHF (congestive heart failure) Code(s): I50.9 - HEART FAILURE, UNSPECIFIED
[2019-12-25] MEDS ORDERED: FENTANYL NS IVPB 500 MCG/100 ML BAG IVPB ONE (20:06)
[2019-12-25] MEDS: ROSUVASTATIN CA 10 MG TABLET (FP) PO SCH (21:31)
--- NOTE | 2019-12-25 22:26 | PN ---
Progress Note, Physician History of Present Illness: REMAINS INTUBATED IN ICU AFEBRILE AZOTEMIA IMPROVED BC MSSA (12/06) BC (12/07) NO GROWTH - Current Medication List Current Medications: Active Medications Artificial Tears (Artificial Tears) 1 drop OU BID PRN PRN Reason: DRY EYES Last Admin: 12/25/19 15:46 Dose: 1 drop Documented by: Cefazolin Sodium 500 mg/ (Dextrose) 50 mls @ 100 mls/hr IVPB BID [facility] Last Admin: 12/25/19 21:32 Dose: 100 mls/hr Documented by: Meropenem 500 mg/ Dextrose 100 mls @ 200 mls/hr IVPB Q12H [facility] Last Admin: 12/25/19 11:51 Dose: 200 mls/hr Documented by: Fentanyl (Sublimaze Ivpb) 500 mcg in 100 mls @ 21.614 mls/hr IVPB TITR [facility]; Protocol Last Titration: 12/25/19 07:22 Dose: 0.93 mcg/kg/hr, 20 mls/hr Documented by: Propofol (Diprivan -) 1,000,000 mcg in 100 mls @ 3.164 mls/hr IVPB TITR [facility]; Protocol Last Titration: 12/25/19 08:27 Dose: 25 mcg/kg/min, 15.819 mls/hr Documented by: Insulin Aspart (Novolog Vial Sliding Scale -) 1 vial SQ ACHS [facility]; Protocol Last Admin: 12/25/19 18:08 Dose: Not Given Documented by: Levetiracetam (Keppra Injection -) 500 mg IVPB BID [facility] Last Admin: 12/25/19 21:31 Dose: 500 mg Documented by: Levothyroxine Sodium (Synthroid Injection -) 20 mcg IVPUSH DAILY [facility] Last Admin: 12/25/19 09:47 Dose: 20 mcg Documented by: Morphine Sulfate (Morphine Sulfate) 0.5 mg IM Q3H PRN PRN Reason: PAIN LEVEL 6-10 Pantoprazole Sodium (Protonix Iv) 40 mg IVPUSH DAILY [facility] Last Admin: 12/25/19 09:44 Dose: 40 mg Documented by: Rosuvastatin Calcium (Crestor -) 10 mg PO HS [facility] Last Admin: 12/25/19 21:31 Dose: 10 mg Documented by: Scopolamine HBr (Transderm-Scop -) 1 patch TD Q72H [facility] Last Admin: 12/25/19 14:42 Dose: 1 patch Documented by: Sevelamer Carbonate (Renvela Powder Packet -) 0.8 gm PO TIDCM [facility] Last Admin: 12/25/19 17:57 Dose: 0.8 gm Documented by: Silver Sulfadiazine (Silvadene -) 1 applic TP BID [facility] Last Admin: 12/25/19 21:32 Dose: 1 applic Documented by: - Objective Vital Signs: Vital Signs Temperature 98.4 F 12/25/19 16:00 Pulse Rate 86 12/25/19 20:00 Respiratory Rate 17 12/25/19 20:08 Blood Pressure 124/66 12/25/19 20:00 O2 Sat by Pulse Oximetry (%) 100 12/25/19 20:08 Constitutional: Yes: No Distress Eyes: Yes: Conjunctiva Clear Cardiovascular: Yes: Regular Rate and Rhythm, S1, S2 Respiratory: Yes: Mechanically Ventilated Gastrointestinal: Yes: Normal Bowel Sounds, Soft Edema: Yes Labs: CBC, BMP 12/25/19 05:50 12/25/19 05:50 INR, PTT INR 1.29 (0.83-1.09) H 12/15/19 11:01 Assessment/Plan + BLOOD C/S MSSA PROBABLE SKIN SOURCE ACUTE RESP FAILURE PNEUMOMIA + SPUTUM C/S MEROPENEM AZOTEMIA PLANTAR ULCER HEALED BULOUS PEMPHIGOID CEFAZOLIN/ MEROPENEM ADJUSTED FOR RENAL FAILURE REPEAT BC NO GROWTH ECHO NO VEGETATIONS VENTILATORY/ HEMODYNAMIC SUPPORT PROGNOSIS POOR
[2019-12-25] MEDS: DEXMEDETOMIDINE IN 0.9 % NACL 400 MCG/100 ML VIAL IVPB SCH (22:45)
[2019-12-26] MEDS: MEROPENEM 500 MG in DEXTROSE 5%-WATER 100 ML IVPB SCH ×2 (01:38→12:47)
[2019-12-26] MEDS: FENTANYL NS IVPB 500 MCG/100 ML BAG IVPB SCH (01:38)
[2019-12-26] MEDS: PROPOFOL 1,000,000 MCG/100 ML VIAL IVPB SCH ×3 (05:36→14:00)
[2019-12-26] MEDS: INSULIN SLIDING SCALE (NOVOLOG) 1 VIAL SQ SCH ×4 (06:03→22:55)
[2019-12-26] MEDS: SEVELAMER CARBONATE 0.8 GM POWDER PACKET PO SCH ×3 (07:43→17:33)
--- NOTE | 2019-12-26 08:07 | PN ---
Physical Exam: SUBJECTIVE: Patient seen and examined. Pt is currently sedated and intubated in the ICU. No acute events over night. Patient is afebrile. Possible tracheostomy/bronchoscopy today. Ventilated on volume-assist control Vent: RR 16, TV 450, FiO2 40%, PEEP 5 Drips: Fentanyl 50, Propofol 25 OBJECTIVE: Vital Signs Period Temp Pulse Resp BP Sys/Hair Pulse Ox Last 24 Hr 97.5 F-98.6 F 74-91 15-21 122-157/37-69 98-100 GENERAL: The patient is intubated and sedated. ENT: moist mucous membranes, bloody secretion again noted in oropharyngeal area. LUNGS: Breath sounds equal, clear to auscultation bilaterally, no wheezes, no crackles. HEART: Regular rate and rhythm, S1, S2. ABDOMEN: Soft, nontender, nondistended, and normoactive bowel sounds. NEURO: Arousable and following some commands during sedation vacation. EXTREMITIES: 2+ pulses, warm, well-perfused, + edema. SKIN: multiple skin ulcerations throughout body, non cellulitic Laboratory Results - last 24 hr 12/25/19 12/25/19 12/25/19 11:50 18:05 22:24 POC Glucometer 85 81 91 12/26/19 06:02 POC Glucometer 95 Active Medications Generic Name Dose Route Start Last Admin Trade Name Freq PRN Reason Stop Dose Admin Artificial Tears 1 drop 12/15/19 07:31 12/25/19 15:46 Artificial Tears OU 1 drop BID PRN Administration DRY EYES Cefazolin Sodium 500 mg/ 50 mls @ 100 mls/hr 12/12/19 12:45 12/25/19 21:32 Dextrose IVPB 100 mls/hr BID [facility] Administration Meropenem 500 mg/ Dextrose 100 mls @ 200 mls/hr 12/12/19 12:45 12/26/19 01:38 IVPB 200 mls/hr Q12H [facility] Administration Fentanyl 500 mcg in 100 mls @ 21.614 mls/hr 12/17/19 01:15 12/26/19 01:38 Sublimaze Ivpb IVPB Not Given TITR [facility] Protocol 1 MCG/KG/HR Propofol 1,000,000 mcg in 100 mls @ 3.164 mls/hr 12/18/19 02:15 12/26/19 07:55 Diprivan - IVPB 25 mcg/kg/min TITR [facility] 15.819 mls/hr Administration Protocol 5 MCG/KG/MIN Insulin Aspart 1 vial 12/10/19 07:00 12/26/19 06:03 Novolog Vial Sliding Scale - SQ Not Given ACHS [facility] Protocol Levetiracetam 500 mg 12/09/19 10:00 12/25/19 21:31 Keppra Injection - IVPB 500 mg BID [facility] Administration Levothyroxine Sodium 20 mcg 12/09/19 10:00 12/25/19 09:47 Synthroid Injection - IVPUSH 20 mcg DAILY [facility] Administration Morphine Sulfate 0.5 mg 12/24/19 13:36 Morphine Sulfate IM Q3H PRN PAIN LEVEL 6-10 Pantoprazole Sodium 40 mg 12/09/19 10:00 12/25/19 09:44 Protonix Iv IVPUSH 40 mg DAILY [facility] Administration Rosuvastatin Calcium 10 mg 12/07/19 22:00 12/25/19 21:31 Crestor - PO 10 mg HS [facility] Administration Scopolamine HBr 1 patch 12/25/19 14:15 12/25/19 14:42 Transderm-Scop - TD 1 patch Q72H [facility] Administration Sevelamer Carbonate 0.8 gm 12/16/19 17:30 12/26/19 07:43 Renvela Powder Packet - PO 0.8 gm TIDCM [facility] Administration Silver Sulfadiazine 1 applic 12/15/19 12:45 12/25/19 21:32 Silvadene - TP 1 applic BID [facility] Administration ASSESSMENT/PLAN: 79 y/o male PMH dCHF, afib, CAD s/p PCI, HTN, seizure d/o, CVA with right sided residual deficit, CKD, hypothyroidism, and bullous pemphigoid. He is now s/p cardiopulmonary arrest (on 12/09/2019) and possible aspiration pneumonia, admitted to the ICU due to acute hypoxic respiratory failure. He was anemic on 12/19 with Hb of 6.3 and received 3 U pRBCs. Hb has since stabilized. # Neuro: Seizure disorder h/o CVA with right-side residual deficit - Sedated on fentanyl and propofol - On Keppra - Sedation vacation daily to assess mental status # Card: Afib diastolic CHF CAD HTN Anemia - Hb 9.4; Continue to monitor. Transfuse if Hb <8. - Hold Eliquis - On rosuvastatin # Pulm ARDS, aspiration PNA -Mechanically ventilated. Wean as tolerated. CXR with minimal change. -Pt with possible tracheostomy and bronchoscopy today; will wean off sedation and provide pain control prn if done -On albuterol-ipratropium -Will not obtain daily ABG unless clinically significant change. Recent trend has been stable. # ID - Sputum culture grew pseudomonas. - c/w Cefazolin (12/11) and Meropenem (12/11) per ID recommendation. # Renal - continuing improvement of LETITIA on CKD - Continue monitoring I/O, BUN, Cr - Appreciate Nephro recs; c/w lasix - On Renvela #Endo -ISS + BGM -On synthroid # Skin - Silvadene # FEN - NG tube placed and resuming trickle feeds #Lines, tubes, drains: 12/08 - ETT # Prophylaxis: - DVT: Hold eliquis; SCDs - GI: Protonix # Code Status / Family Conversation: - Full Code - Dr. Branch of palliative care consulted. Will f/u recommendations. (Mandy): [phone] Son (Cj): [phone] Visit type - Emergency Visit Emergency Visit: Yes ED Registration Date: 12/03/19 Care time: The patient presented to the Emergency Department on the above date and was hospitalized for further evaluation of their emergent condition. - New Patient This patient is new to me today: No - Critical Care Critical Care patient: Yes Total Critical Care Time (in minutes): 37 Critical Care Statement: The care of this patient involved high complexity decision making to prevent further life threatening deterioration of the patient's condition and/or to evaluate & treat vital organ system(s) failure or risk of failure. ATTENDING PHYSICIAN STATEMENT I saw and evaluated the patient. I reviewed the resident's note and discussed the case with the resident. I agree with the resident's findings and plan as documented. SUBJECTIVE: OBJECTIVE: ASSESSMENT AND PLAN:
[2019-12-26 08:44] LABS: HEMOGLOBIN 9.4 GM/dL (11.7-16.9); MCH 29.4 pg (25.7-33.7); MCHC 32.3 g/dl (32.0-35.9); MEAN CELL VOLUME 91.1 fl (80-96); MEAN PLT VOLUME 7.6 fl (7.5-11.1); PLATELET COUNT 201 K/MM3 (134-434); RBC 3.18 M/mm3 (4.00-5.60); RDW 15.4 % (11.9-15.9); WHITE BLOOD COUNT 5.7 K/mm3 (4.0-10.0)
[2019-12-26 08:50] LABS: INR 1.14 (0.83-1.09); PROTHROMBIN TIME (PATIENT) 13.5 SEC (9.7-13.0)
[2019-12-26 08:53] LABS: ACTIVATED PTT 28.5 SECONDS (25.2-36.5)
[2019-12-26 09:11] LABS: ALBUMIN 1.9 g/dl (3.4-5.0); BILIRUBIN,TOTAL 0.6 mg/dL (0.2-1); BLOOD UREA NITROGEN 103.1 mg/dL (7-18); CALCIUM 7.8 mg/dL (8.5-10.1); CREATININE 2.5 mg/dL (0.55-1.3); PHOSPHOROUS 5.9 mg/dL (2.5-4.9); POTASSIUM 3.7 mmol/L (3.5-5.1); TOT PROT 5.4 g/dl (6.4-8.2)
[2019-12-26] MEDS ORDERED: PT OWN MED DRAWER 7, Y5N ONE ×2 (09:25→21:30)
[2019-12-26] MEDS: SILVER SULFADIAZINE 1% TOP CREAM 50 GM JAR TP SCH ×2 (09:37→22:56)
[2019-12-26] MEDS: LEVOTHYROXINE SODIUM 100 MCG VIAL IVPUSH SCH (09:37)
[2019-12-26] MEDS: CEFAZOLIN 500 MG in DEXTROSE 5%-WATER - 50 ML IVPB SCH ×2 (09:37→22:56)
[2019-12-26] MEDS: PANTOPRAZOLE SODIUM 40 MG VIAL IVPUSH SCH (09:37)
[2019-12-26] MEDS: levETIRAcetam 500 MG/5 ML INJECTION VIAL IVPB SCH ×2 (09:37→22:56)
--- NOTE | 2019-12-26 11:07 | PN ---
Progress Note, Physician Chief Complaint: s/p Cardiopulmonary Arrest Acute Hypoxic and Hypercapneic Respiratory Failure Likely Aspiration Pneumonia Septic Shock Acute on Chronic Renal Failure Lactic Acidosis Bullous Pemphigoid CAD LV Diastolic Dysfunction Atrial Fibrillation Seizure Disorder h/o CVA Hypothyroidism Anemia Thrombocytopenia History of Present Illness: Remains intubated in ICU Seen by family yesterday, who wants everything done Pt going for Trach today - Current Medication List Current Medications: Active Medications Artificial Tears (Artificial Tears) 1 drop OU BID PRN PRN Reason: DRY EYES Last Admin: 12/25/19 15:46 Dose: 1 drop Documented by: Cefazolin Sodium 500 mg/ (Dextrose) 50 mls @ 100 mls/hr IVPB BID [facility]HAEL Last Admin: 12/26/19 09:37 Dose: 100 mls/hr Documented by: Meropenem 500 mg/ Dextrose 100 mls @ 200 mls/hr IVPB Q12H [facility]EL Last Admin: 12/26/19 01:38 Dose: 200 mls/hr Documented by: Fentanyl (Sublimaze Ivpb) 500 mcg in 100 mls @ 21.614 mls/hr IVPB TITR MICHAEL; Protocol Last Admin: 12/26/19 01:38 Dose: Not Given Documented by: Propofol (Diprivan -) 1,000,000 mcg in 100 mls @ 3.164 mls/hr IVPB TITR [facility]; Protocol Last Admin: 12/26/19 07:55 Dose: 25 mcg/kg/min, 15.819 mls/hr Documented by: Insulin Aspart (Novolog Vial Sliding Scale -) 1 vial SQ ACHS MICHAEL; Protocol Last Admin: 12/26/19 06:03 Dose: Not Given Documented by: Levetiracetam (Keppra Injection -) 500 mg IVPB BID [facility] Last Admin: 12/26/19 09:37 Dose: 500 mg Documented by: Levothyroxine Sodium (Synthroid Injection -) 20 mcg IVPUSH DAILY [facility] Last Admin: 12/26/19 09:37 Dose: 20 mcg Documented by: Morphine Sulfate (Morphine Sulfate) 0.5 mg IM Q3H PRN PRN Reason: PAIN LEVEL 6-10 Pantoprazole Sodium (Protonix Iv) 40 mg IVPUSH DAILY [facility] Last Admin: 12/26/19 09:37 Dose: 40 mg Documented by: Rosuvastatin Calcium (Crestor -) 10 mg PO HS [facility] Last Admin: 12/25/19 21:31 Dose: 10 mg Documented by: Scopolamine HBr (Transderm-Scop -) 1 patch TD Q72H [facility] Last Admin: 12/25/19 14:42 Dose: 1 patch Documented by: Sevelamer Carbonate (Renvela Powder Packet -) 0.8 gm PO TIDCM [facility] Last Admin: 12/26/19 07:43 Dose: 0.8 gm Documented by: Silver Sulfadiazine (Silvadene -) 1 applic TP BID [facility] Last Admin: 12/26/19 09:37 Dose: 1 applic Documented by: - Objective Vital Signs: Vital Signs Temperature 98.4 F 12/26/19 10:00 Pulse Rate 72 12/26/19 10:00 Respiratory Rate 16 12/26/19 10:00 Blood Pressure 125/47 L 12/26/19 10:00 O2 Sat by Pulse Oximetry (%) 99 12/26/19 10:00 Constitutional: Yes: Well Nourished, No Distress, Calm Cardiovascular: Yes: Regular Rate and Rhythm Respiratory: Yes: Regular, Mechanically Ventilated, Rhonchi (diffuse) Gastrointestinal: Yes: Normal Bowel Sounds, Soft Genitourinary: Yes: [place] Present Edema: No Peripheral Pulses WNL: No Peripheral Pulses: Left Doralis Pedis: 1+, Right Dorsalis Pedis: 1+ Integumentary: Yes: Skin Tear (generalized), Other (generalized bleeding blisters) Neurological: Yes: Other (sedated) Labs: CBC, BMP 12/26/19 08:05 12/26/19 08:05 INR, PTT INR 1.14 (0.83-1.09) H 12/26/19 08:05 Problem List - Problems (1) Acute respiratory failure Assessment/Plan: -Mech vent -Pulmonary consult -IV Cefazolin + meropenem -Enteral feeds-restarted,tolerating well---> PEG insertion -Bronchodilators Problems reviewed: Yes Code(s): J96.00 - ACUTE RESPIRATORY FAILURE, UNSP W HYPOXIA OR HYPERCAPNIA (2) Bullous pemphigoid Assessment/Plan: -Cellcept discontinued 2/2 to GI bleed -Silvadene top Problems reviewed: Yes Code(s): L12.0 - BULLOUS PEMPHIGOID (3) Acute on chronic renal insufficiency Assessment/Plan: -Nephrology on board -monitor daily labs Problems reviewed: Yes Code(s): N28.9 - DISORDER OF KIDNEY AND URETER, UNSPECIFIED; N18.9 - CHRONIC KIDNEY DISEASE, UNSPECIFIED (4) Pneumonia Assessment/Plan: -Likely aspiration -CXR reviewed -Repeat COVID 19 PCR negative -IV abx -ID consult -Lactic acidosis noted Problems reviewed: Yes Code(s): J18.9 - PNEUMONIA, UNSPECIFIED ORGANISM (5) Afib Assessment/Plan: -Chronic, rate controlled -Eliquis Held due to acute GI bleed -Transfuse only if Hg <7.0 to avoid fluid overload Problems reviewed: Yes Code(s): I48.91 - UNSPECIFIED ATRIAL FIBRILLATION (6) Anemia Assessment/Plan: -Chronic -H/H stable at this time -workup last admission was negative -hematology consult -Transfuse only if hg<7.0 to avoid fluid overload. Problems reviewed: Yes Code(s): D64.9 - ANEMIA, UNSPECIFIED (7) Bacteremia Assessment/Plan: -Repeat BC negative -IV abx -ID on board -SC: Microbiology 12/23/19 22:30 Blood Culture - Preliminary Blood - Peripheral Venous NO GROWTH OBTAINED AFTER 48 HOURS, INCUBATION TO CONTINUE FOR 3 DAYS. 12/23/19 22:30 Blood Culture - Preliminary Blood - Peripheral Venous NO GROWTH OBTAINED AFTER 48 HOURS, INCUBATION TO CONTINUE FOR 3 DAYS. 12/23/19 22:30 Gram Stain - Final Sputum - Endotrachea Suction/Ventilator Sputum Culture - Preliminary Non Lactose Fermenting Gnb Non Lactose Fermenting Gnb#2 Lactose Fermenting Neg Bacilli 12/24/19 02:00 Urine Culture - Final Urine - Urine Duvall NO GROWTH OBTAINED Problems reviewed: Yes Code(s): R78.81 - BACTEREMIA Assessment/Plan See problem list GI PPX
[2019-12-26] MEDS ORDERED: ROCURONIUM BROMIDE 50 MG/5 ML VIAL IV ONE (12:42)
[2019-12-26] MEDS ORDERED: MEROPENEM 500 MG VIAL (RESTRICTED TO ID) IVPB ONE (12:44)
[2019-12-26] MEDS ORDERED: MIDAZOLAM HCL 5 MG/1 ML Single Dose Vial IVPUSH ONE (12:44)
[2019-12-26] MEDS ORDERED: DEXTROSE 5%-WATER 100 ML IVPB ONE (12:44)
[2019-12-26] MEDS ORDERED: FUROSEMIDE 40 MG/5 ML UNIT-DOSE CUP PO ONE (15:06)
--- NOTE | 2019-12-26 15:06 | PN ---
Progress Note, Physician History of Present Illness: Pt seen and examined at bedside. He remains on vent. - Current Medication List Current Medications: Active Medications Artificial Tears (Artificial Tears) 1 drop OU BID PRN PRN Reason: DRY EYES Last Admin: 12/25/19 15:46 Dose: 1 drop Documented by: Cefazolin Sodium 500 mg/ (Dextrose) 50 mls @ 100 mls/hr IVPB BID MICHAEL Last Admin: 12/26/19 09:37 Dose: 100 mls/hr Documented by: Meropenem 500 mg/ Dextrose 100 mls @ 200 mls/hr IVPB Q12H [facility] Last Admin: 12/26/19 12:47 Dose: 200 mls/hr Documented by: Fentanyl (Sublimaze Ivpb) 500 mcg in 100 mls @ 21.614 mls/hr IVPB TITR [facility]; Protocol Last Admin: 12/26/19 01:38 Dose: Not Given Documented by: Propofol (Diprivan -) 1,000,000 mcg in 100 mls @ 3.164 mls/hr IVPB TITR [facility]; Protocol Last Admin: 12/26/19 07:55 Dose: 25 mcg/kg/min, 15.819 mls/hr Documented by: Insulin Aspart (Novolog Vial Sliding Scale -) 1 vial SQ ACHS [facility]; Protocol Last Admin: 12/26/19 12:06 Dose: Not Given Documented by: Levetiracetam (Keppra Injection -) 500 mg IVPB BID [facility] Last Admin: 12/26/19 09:37 Dose: 500 mg Documented by: Levothyroxine Sodium (Synthroid Injection -) 20 mcg IVPUSH DAILY [facility] Last Admin: 12/26/19 09:37 Dose: 20 mcg Documented by: Morphine Sulfate (Morphine Sulfate) 0.5 mg IM Q3H PRN PRN Reason: PAIN LEVEL 6-10 Pantoprazole Sodium (Protonix Iv) 40 mg IVPUSH DAILY [facility] Last Admin: 12/26/19 09:37 Dose: 40 mg Documented by: Rosuvastatin Calcium (Crestor -) 10 mg PO HS [facility] Last Admin: 12/25/19 21:31 Dose: 10 mg Documented by: Scopolamine HBr (Transderm-Scop -) 1 patch TD Q72H [facility] Last Admin: 12/25/19 14:42 Dose: 1 patch Documented by: Sevelamer Carbonate (Renvela Powder Packet -) 0.8 gm PO TIDCM [facility] Last Admin: 12/26/19 12:47 Dose: 0.8 gm Documented by: Silver Sulfadiazine (Silvadene -) 1 applic TP BID [facility]EL Last Admin: 12/26/19 09:37 Dose: 1 applic Documented by: - Objective Vital Signs: Vital Signs Temperature 98.4 F 12/26/19 10:00 Pulse Rate 74 12/26/19 14:00 Respiratory Rate 16 12/26/19 14:00 Blood Pressure 133/53 L 12/26/19 14:00 O2 Sat by Pulse Oximetry (%) 99 12/26/19 11:27 Constitutional: Yes: Calm Eyes: Yes: Conjunctiva Clear Cardiovascular: Yes: S1, S2 Respiratory: Yes: Mechanically Ventilated Gastrointestinal: Yes: Soft Genitourinary: Yes: [place] Present Musculoskeletal: Yes: Muscle Weakness Edema: Yes Edema: LLE: Trace, RLE: Trace Integumentary: Yes: Other (bullous pemphigoid) Neurological: Yes: Lethargy Labs: CBC, BMP 12/26/19 08:05 12/26/19 08:05 INR, PTT INR 1.14 (0.83-1.09) H 12/26/19 08:05 Problem List - Problems (1) Acute respiratory failure Code(s): J96.00 - ACUTE RESPIRATORY FAILURE, UNSP W HYPOXIA OR HYPERCAPNIA (2) Bullous pemphigoid Code(s): L12.0 - BULLOUS PEMPHIGOID Assessment/Plan Current Medications Generic Name Dose Route Start Last Admin Trade Name Freq PRN Reason Stop Dose Admin Artificial Tears 1 drop 12/15/19 07:31 12/25/19 15:46 Artificial Tears OU 1 drop BID PRN Administration DRY EYES Cefazolin Sodium 500 mg/ 50 mls @ 100 mls/hr 12/12/19 12:45 12/26/19 09:37 Dextrose IVPB 100 mls/hr BID MICHAEL Administration Meropenem 500 mg/ Dextrose 100 mls @ 200 mls/hr 12/12/19 12:45 12/26/19 12:47 IVPB 200 mls/hr Q12H MICHAEL Administration Fentanyl 500 mcg in 100 mls @ 21.614 mls/hr 12/17/19 01:15 12/26/19 01:38 Sublimaze Ivpb IVPB Not Given TITR MICHAEL Protocol 1 MCG/KG/HR Propofol 1,000,000 mcg in 100 mls @ 3.164 mls/hr 12/18/19 02:15 12/26/19 07:55 Diprivan - IVPB 25 mcg/kg/min TITR MICHAEL 15.819 mls/hr Administration Protocol 5 MCG/KG/MIN Insulin Aspart 1 vial 12/10/19 07:00 12/26/19 12:06 Novolog Vial Sliding Scale - SQ Not Given ACHS MICHAEL Protocol Levetiracetam 500 mg 12/09/19 10:00 12/26/19 09:37 Keppra Injection - IVPB 500 mg BID MICHAEL Administration Levothyroxine Sodium 20 mcg 12/09/19 10:00 12/26/19 09:37 Synthroid Injection - IVPUSH 20 mcg DAILY MICHAEL Administration Morphine Sulfate 0.5 mg 12/24/19 13:36 Morphine Sulfate IM Q3H PRN PAIN LEVEL 6-10 Pantoprazole Sodium 40 mg 12/09/19 10:00 12/26/19 09:37 Protonix Iv IVPUSH 40 mg DAILY MICHAEL Administration Rosuvastatin Calcium 10 mg 12/07/19 22:00 12/25/19 21:31 Crestor - PO 10 mg HS MICHAEL Administration Scopolamine HBr 1 patch 12/25/19 14:15 12/25/19 14:42 Transderm-Scop - TD 1 patch Q72H MICHAEL Administration Sevelamer Carbonate 0.8 gm 12/16/19 17:30 12/26/19 12:47 Renvela Powder Packet - PO 0.8 gm TIDCM MICHAEL Administration Silver Sulfadiazine 1 applic 12/15/19 12:45 12/26/19 09:37 Silvadene - TP 1 applic BID MICHAEL Administration Impression 1. CKD 2. CHF 3. BPH 4. a. fib 5. CAD 6. epilepsy 7. proteinuria 8. anemia 9. foot ulcer 10. abd wall cellulitis 11. bullous pemphigoid 12. LETITIA 13. hyperkalemia 14. cardiac arrest 15. resp failure on vent 16. r/o aspiration Plan - renal function improving - repeat labs in am - will give lasix - monitor output - bun improving - cont cellcept for bullous pemphigoid - maintain map 65 - letitia on ckd likely atn post cardiac arrest
--- NOTE | 2019-12-26 15:20 | PN ---
Teaching Attending Note Name of Resident: Kelly Orellana ATTENDING PHYSICIAN STATEMENT I saw and evaluated the patient. I reviewed the resident's note and discussed the case with the resident. I agree with the resident's findings and plan as documented. SUBJECTIVE: Patient seen and examined in the ICU. Remains intubated, sedated. No pressors. Not tolerating weaning trials off sedation. No fevers. OBJECTIVE: Intake & Output 12/23/19 12/24/19 12/25/19 12/26/19 23:59 23:59 23:59 23:59 Intake Total 00900 1465 2047 899 Output Total 2200 600 1500 1000 Balance 33169 865 547 -101 Weight 233 lb 11.04 oz 233 lb 11.04 oz 233 lb 11.04 oz 225 lb 15.581 oz Last Vital Signs Temp Pulse Resp BP Pulse Ox 98.4 F 74 16 133/53 L 99 12/26/19 10:00 12/26/19 14:00 12/26/19 14:00 12/26/19 14:00 12/26/19 11:27 Active Medications Artificial Tears (Artificial Tears) 1 drop OU BID PRN PRN Reason: DRY EYES Last Admin: 12/25/19 15:46 Dose: 1 drop Documented by: Cefazolin Sodium 500 mg/ (Dextrose) 50 mls @ 100 mls/hr IVPB BID [facility] Last Admin: 12/26/19 09:37 Dose: 100 mls/hr Documented by: Meropenem 500 mg/ Dextrose 100 mls @ 200 mls/hr IVPB Q12H MICHAEL Last Admin: 12/26/19 12:47 Dose: 200 mls/hr Documented by: Fentanyl (Sublimaze Ivpb) 500 mcg in 100 mls @ 21.614 mls/hr IVPB TITR MICHAEL; Protocol Last Admin: 12/26/19 01:38 Dose: Not Given Documented by: Propofol (Diprivan -) 1,000,000 mcg in 100 mls @ 3.164 mls/hr IVPB TITR [facility]; Protocol Last Admin: 12/26/19 07:55 Dose: 25 mcg/kg/min, 15.819 mls/hr Documented by: Insulin Aspart (Novolog Vial Sliding Scale -) 1 vial SQ ACHS [facility]; Protocol Last Admin: 12/26/19 12:06 Dose: Not Given Documented by: Levetiracetam (Keppra Injection -) 500 mg IVPB BID [facility] Last Admin: 12/26/19 09:37 Dose: 500 mg Documented by: Levothyroxine Sodium (Synthroid Injection -) 20 mcg IVPUSH DAILY [facility] Last Admin: 12/26/19 09:37 Dose: 20 mcg Documented by: Morphine Sulfate (Morphine Sulfate) 0.5 mg IM Q3H PRN PRN Reason: PAIN LEVEL 6-10 Pantoprazole Sodium (Protonix Iv) 40 mg IVPUSH DAILY [facility] Last Admin: 12/26/19 09:37 Dose: 40 mg Documented by: Rosuvastatin Calcium (Crestor -) 10 mg PO HS [facility] Last Admin: 12/25/19 21:31 Dose: 10 mg Documented by: Scopolamine HBr (Transderm-Scop -) 1 patch TD Q72H [facility] Last Admin: 12/25/19 14:42 Dose: 1 patch Documented by: Sevelamer Carbonate (Renvela Powder Packet -) 0.8 gm PO TIDCM [facility] Last Admin: 12/26/19 12:47 Dose: 0.8 gm Documented by: Silver Sulfadiazine (Silvadene -) 1 applic TP BID [facility] Last Admin: 12/26/19 09:37 Dose: 1 applic Documented by: Gen: intubated, sedated Heart: RRR Lung; scattered rhonchi Abd: soft, nontender Ext: + edema Laboratory Results - last 24 hr 12/25/19 12/25/19 12/26/19 18:05 22:24 06:02 WBC RBC Hgb Hct MCV MCH MCHC RDW Plt Count MPV PT with INR INR PTT (Actin FS) Sodium Potassium Chloride Carbon Dioxide Anion Gap BUN Creatinine Est GFR (CKD-EPI)AfAm Est GFR (CKD-EPI)NonAf POC Glucometer 81 91 95 Random Glucose Calcium Phosphorus Magnesium Total Bilirubin AST ALT Alkaline Phosphatase Total Protein Albumin Blood Type Antibody Screen 12/26/19 12/26/19 12/26/19 08:05 08:05 08:05 WBC 5.7 RBC 3.18 L Hgb 9.4 L Hct 29.0 L MCV 91.1 MCH 29.4 MCHC 32.3 RDW 15.4 Plt Count 201 MPV 7.6 PT with INR 13.50 H INR 1.14 H PTT (Actin FS) 28.5 Sodium 141 Potassium 3.7 Chloride 106 Carbon Dioxide 25 Anion Gap 11 BUN 103.1 H Creatinine 2.5 H Est GFR (CKD-EPI)AfAm 26.90 Est GFR (CKD-EPI)NonAf 23.21 POC Glucometer Random Glucose 97 Calcium 7.8 L Phosphorus 5.9 H Magnesium 2.0 Total Bilirubin 0.6 AST 44 H ALT 9 L Alkaline Phosphatase 115 Total Protein 5.4 L Albumin 1.9 L Blood Type Antibody Screen 12/26/19 12/26/19 08:05 11:53 WBC RBC Hgb Hct MCV MCH MCHC RDW Plt Count MPV PT with INR INR PTT (Actin FS) Sodium Potassium Chloride Carbon Dioxide Anion Gap BUN Creatinine Est GFR (CKD-EPI)AfAm Est GFR (CKD-EPI)NonAf POC Glucometer 96 Random Glucose Calcium Phosphorus Magnesium Total Bilirubin AST ALT Alkaline Phosphatase Total Protein Albumin Blood Type B POSITIVE Antibody Screen Negative ASSESSMENT AND PLAN: s/p Cardiopulmonary Arrest Acute Hypoxic and Hypercapneic Respiratory Failure Likely Aspiration Pneumonia Septic Shock Acute on Chronic Renal Failure Lactic Acidosis Bullous Pemphigoid CAD LV Diastolic Dysfunction Atrial Fibrillation Seizure Disorder h/o CVA Hypothyroidism Anemia Thrombocytopenia - continue antibiotics - monitor H/H - monitor urine output, creatinine - rate control - daily sedation vacation to assess mental status - continue volume assist control - enteral feeds - DVT/GI prophylaxis - ICU monitoring - Tracheostomy for prolonged intubation and failure to wean Dr Contreras Critical care time spent in reviewing chart, evaluating patient and formulating plan 35 min Problem List - Problems (1) Bullous pemphigoid Code(s): L12.0 - BULLOUS PEMPHIGOID (2) Generalized weakness Code(s): R53.1 - WEAKNESS (3) Unable to ambulate Code(s): R26.2 - DIFFICULTY IN WALKING, NOT ELSEWHERE CLASSIFIED (4) Blisters of multiple sites Code(s): R23.8 - OTHER SKIN CHANGES (5) Abnormal liver enzymes Code(s): R74.8 - ABNORMAL LEVELS OF OTHER SERUM ENZYMES (6) Wound of foot Code(s): S91.309A - UNSPECIFIED OPEN WOUND, UNSPECIFIED FOOT, INITIAL ENCOUNTER (7) Afib Code(s): I48.91 - UNSPECIFIED ATRIAL FIBRILLATION (8) Anemia Code(s): D64.9 - ANEMIA, UNSPECIFIED Qualifiers: Iron deficiency anemia type: chronic blood loss (9) BPH (benign prostatic hyperplasia) Code(s): N40.0 - BENIGN PROSTATIC HYPERPLASIA WITHOUT LOWER URINRY TRACT SYMP (10) CAD (coronary artery disease) Code(s): I25.10 - ATHSCL HEART DISEASE OF [place] CORONARY ARTERY W/O ANG PCTRS (11) CHF (congestive heart failure) Code(s): I50.9 - HEART FAILURE, UNSPECIFIED (12) CKD (chronic kidney disease) Code(s): N18.9 - CHRONIC KIDNEY DISEASE, UNSPECIFIED (13) Diabetes mellitus Code(s): E11.9 - TYPE 2 DIABETES MELLITUS WITHOUT COMPLICATIONS (14) Diastolic CHF Code(s): I50.30 - UNSPECIFIED DIASTOLIC (CONGESTIVE) HEART FAILURE (15) Gastritis Code(s): K29.70 - GASTRITIS, UNSPECIFIED, WITHOUT BLEEDING (16) HTN (hypertension) Code(s): I10 - ESSENTIAL (PRIMARY) HYPERTENSION (17) History of colon cancer Code(s): Z85.038 - PERSONAL HISTORY OF MALIGNANT NEOPLASM OF LARGE INTESTINE (18) History of duodenal ulcer Code(s): Z87.19 - PERSONAL HISTORY OF OTHER DISEASES OF THE DIGESTIVE SYSTEM (19) Hyperlipidemia Code(s): E78.5 - HYPERLIPIDEMIA, UNSPECIFIED (20) Hypothyroid Code(s): E03.9 - HYPOTHYROIDISM, UNSPECIFIED (21) Paroxysmal atrial fibrillation Code(s): I48.0 - PAROXYSMAL ATRIAL FIBRILLATION (22) Peripheral arterial disease Code(s): I73.9 - PERIPHERAL VASCULAR DISEASE, UNSPECIFIED (23) Peripheral vascular disease Code(s): I73.9 - PERIPHERAL VASCULAR DISEASE, UNSPECIFIED (24) Pulmonary hypertension Code(s): I27.2 - OTHER SECONDARY PULMONARY HYPERTENSION * DO NOT USE * (25) Seizure Code(s): R56.9 - UNSPECIFIED CONVULSIONS (26) Seizure disorder Code(s): G40.909 - EPILEPSY, UNSP, NOT INTRACTABLE, WITHOUT STATUS EPILEPTICUS
--- NOTE | 2019-12-26 15:28 | PROC ---
Procedure Note Procedure: Under informed consent a FOB was performed prior to the placement of a Percutaneous Tracheostomy required due to prolonged intubation and failure to wean. The patient was sedated and paralyzed. The Bronchoscope was inserted via the ETT. There were thick secretions noted. The bronchoscope was advanced to the falguni. Thick but scant secretions were noted in the right mainstem. No endobronchial lesions were noted. The bronchoscope was withdrawan back to the falguni. Thick, copious secretions were noted and suctioned. The bronchoscope was the withdrawan into the distal portion of the ETT and remained in place during the placement of a Percutaneous Tracheostomy. The bronchoscope was then withdrawn and then inserted via the Tracheostomy and confirmed excellent placement and hemostasis. Dr Contreras
--- NOTE | 2019-12-26 15:31 | OPR ---
Patient Name: Nate Cruz MR#: [id number] Procedure Date: 12/26/2019 Inpatient procedure Preoperative Diagnosis: 1. Hypoxic respiratory failure; 2. Pneumonia; Postoperative Diagnosis: same. Procedure: 1. Flexible Bronchoscopy (performed by Dr. Contreras) 2. Percutaneous tracheostomy. Indication: Respiratory failure; Surgeon(s): Roshan Glass MD Cosurgeon: susan [employer] Access[employer] Installer Surgeon: susan Anesthesia: local; Findings: Bronchoscopy: no secretions in airway; tracheostomy in place without significant bleeding; Specimens Sent: 1. None. Complications: None. Drains / Tubes / Catheters: #8 Portex. Hardware / Implants: na Blood / Fluid Losses: none. Post-Operative Condition: hemodynamically stable. Indications: This patient is an 79 year-old male referred from the ICU team for tracheostomy because of prolonged respiratory failure. An informed consent was obtained from the family for the procedure. All questions were addressed and answered. Details of Procedure: The procedure was done at the bedside. Dr. Contreras performed a bronchoscopy after he was given paralysis and prepared and draped. I then injected lidocaine and made a small incision. Blunt dissection was done down to the airway. Next under vision from bronchoscopy, the needle as inserted between the second and third ring. Using Seldinger technique the wire, dilator, and larger dilator, and finally the tracheostomy were inserted. It was secured with sutures. A completion bronchoscopy showed good position and hemostasis. He tolerated the procedure well. I will follow the patient in the hospital and as an outpatient.
--- NOTE | 2019-12-26 20:30 | PN ---
Progress Note, Physician History of Present Illness: S/P TRACH AFEBRILE AZOTEMIA IMPROVED BC MSSA (12/06) BC (12/07) NO GROWTH - Current Medication List Current Medications: Active Medications Artificial Tears (Artificial Tears) 1 drop OU BID PRN PRN Reason: DRY EYES Last Admin: 12/25/19 15:46 Dose: 1 drop Documented by: Cefazolin Sodium 500 mg/ (Dextrose) 50 mls @ 100 mls/hr IVPB BID [facility] Last Admin: 12/26/19 09:37 Dose: 100 mls/hr Documented by: Meropenem 500 mg/ Dextrose 100 mls @ 200 mls/hr IVPB Q12H [facility] Last Admin: 12/26/19 12:47 Dose: 200 mls/hr Documented by: Fentanyl (Sublimaze Ivpb) 500 mcg in 100 mls @ 21.614 mls/hr IVPB TITR [facility]; Protocol Last Admin: 12/26/19 01:38 Dose: Not Given Documented by: Propofol (Diprivan -) 1,000,000 mcg in 100 mls @ 3.164 mls/hr IVPB TITR [facility]; Protocol Last Admin: 12/26/19 14:00 Dose: 25 mcg/kg/min, 15.819 mls/hr Documented by: Insulin Aspart (Novolog Vial Sliding Scale -) 1 vial SQ ACHS [facility]; Protocol Last Admin: 12/26/19 17:03 Dose: Not Given Documented by: Levetiracetam (Keppra Injection -) 500 mg IVPB BID [facility] Last Admin: 12/26/19 09:37 Dose: 500 mg Documented by: Levothyroxine Sodium (Synthroid Injection -) 20 mcg IVPUSH DAILY [facility] Last Admin: 12/26/19 09:37 Dose: 20 mcg Documented by: Morphine Sulfate (Morphine Sulfate) 0.5 mg IM Q3H PRN PRN Reason: PAIN LEVEL 6-10 Pantoprazole Sodium (Protonix Iv) 40 mg IVPUSH DAILY [facility] Last Admin: 12/26/19 09:37 Dose: 40 mg Documented by: Rosuvastatin Calcium (Crestor -) 10 mg PO HS [facility] Last Admin: 12/25/19 21:31 Dose: 10 mg Documented by: Scopolamine HBr (Transderm-Scop -) 1 patch TD Q72H [facility] Last Admin: 12/25/19 14:42 Dose: 1 patch Documented by: Sevelamer Carbonate (Renvela Powder Packet -) 0.8 gm PO TIDCM [facility] Last Admin: 12/26/19 17:33 Dose: 0.8 gm Documented by: Silver Sulfadiazine (Silvadene -) 1 applic TP BID [facility] Last Admin: 12/26/19 09:37 Dose: 1 applic Documented by: - Objective Vital Signs: Vital Signs Temperature 98.8 F 12/26/19 16:00 Pulse Rate 75 12/26/19 20:00 Respiratory Rate 18 12/26/19 20:00 Blood Pressure 150/90 12/26/19 20:00 O2 Sat by Pulse Oximetry (%) 99 12/26/19 15:55 Constitutional: Yes: No Distress Cardiovascular: Yes: Regular Rate and Rhythm, S1, S2 Respiratory: Yes: CTA Bilaterally Gastrointestinal: Yes: Normal Bowel Sounds, Soft Integumentary: Yes: Other (SCATTERRED ULCERATIVE LESIONS) Labs: CBC, BMP 12/26/19 08:05 12/26/19 08:05 INR, PTT INR 1.14 (0.83-1.09) H 12/26/19 08:05 Assessment/Plan + BLOOD C/S MSSA PROBABLE SKIN SOURCE ACUTE RESP FAILURE PNEUMOMIA + SPUTUM C/S MEROPENEM AZOTEMIA PLANTAR ULCER HEALED BULOUS PEMPHIGOID CEFAZOLIN/ MEROPENEM ADJUSTED FOR RENAL FAILURE REPEAT BC NO GROWTH ECHO NO VEGETATIONS VENTILATORY/ HEMODYNAMIC SUPPORT
[2019-12-26] MEDS: ROSUVASTATIN CA 10 MG TABLET (FP) PO SCH (22:56)
[2019-12-27] MEDS ORDERED: DEXTROSE 5%-WATER 100 ML IVPB ONE (00:52)
[2019-12-27] MEDS ORDERED: MEROPENEM 500 MG VIAL (RESTRICTED TO ID) IVPB ONE (00:52)
[2019-12-27] MEDS: MEROPENEM 500 MG in DEXTROSE 5%-WATER 100 ML IVPB SCH (00:55)
[2019-12-27] MEDS: FENTANYL NS IVPB 500 MCG/100 ML BAG IVPB SCH (03:43)
[2019-12-27] MEDS: PROPOFOL 1,000,000 MCG/100 ML VIAL IVPB SCH (03:43)
[2019-12-27 06:53] LABS: HEMATOCRIT 29.1 % (35.4-49); HEMOGLOBIN 9.6 GM/dL (11.7-16.9); MCH 29.7 pg (25.7-33.7); MCHC 33.1 g/dl (32.0-35.9); MEAN CELL VOLUME 89.6 fl (80-96); PLATELET COUNT 172 K/MM3 (134-434); RBC 3.24 M/mm3 (4.00-5.60); WHITE BLOOD COUNT 5.2 K/mm3 (4.0-10.0)
[2019-12-27 07:10] LABS: ALBUMIN 1.9 g/dl (3.4-5.0); BILIRUBIN,TOTAL 0.6 mg/dL (0.2-1); BLOOD UREA NITROGEN 99.3 mg/dL (7-18); CALCIUM 7.7 mg/dL (8.5-10.1); CREATININE 2.3 mg/dL (0.55-1.3); MAGNESIUM 1.6 mg/dL (1.8-2.4); PHOSPHOROUS 5.7 mg/dL (2.5-4.9); POTASSIUM 3.5 mmol/L (3.5-5.1); TOT PROT 5.3 g/dl (6.4-8.2)
[2019-12-27] MEDS ORDERED: MAGNESIUM SULF 50% (8.12 MEQ/2 ML-1 GM VIAL) IVPB ONE (07:27)
[2019-12-27] MEDS: INSULIN SLIDING SCALE (NOVOLOG) 1 VIAL SQ SCH ×4 (07:47→22:57)
[2019-12-27] MEDS: SEVELAMER CARBONATE 0.8 GM POWDER PACKET PO SCH ×3 (07:55→18:00)
--- NOTE | 2019-12-27 08:43 | PN ---
Progress Note (short form) - Note Progress Note: Seen and examined in the ICU Trached yesterday Remains intubated and sedated Hypothermic o/n on Liane reinier Received lasix w/ ~1600ml of urine Active Medications Artificial Tears (Artificial Tears) 1 drop OU BID PRN PRN Reason: DRY EYES Last Admin: 12/25/19 15:46 Dose: 1 drop Documented by: Cefazolin Sodium 500 mg/ (Dextrose) 50 mls @ 100 mls/hr IVPB BID [facility] Last Admin: 12/26/19 22:56 Dose: 100 mls/hr Documented by: Meropenem 500 mg/ Dextrose 100 mls @ 200 mls/hr IVPB Q12H [facility] Last Admin: 12/27/19 00:55 Dose: 200 mls/hr Documented by: Fentanyl (Sublimaze Ivpb) 500 mcg in 100 mls @ 21.614 mls/hr IVPB TITR [facility]; Protocol Last Admin: 12/27/19 03:43 Dose: 0.93 mcg/kg/hr, 20 mls/hr Documented by: Propofol (Diprivan -) 1,000,000 mcg in 100 mls @ 3.164 mls/hr IVPB TITR [facility]; Protocol Last Titration: 12/27/19 07:10 Dose: 15 mcg/kg/min, 9.491 mls/hr Documented by: Insulin Aspart (Novolog Vial Sliding Scale -) 1 vial SQ ACHS [facility]; Protocol Last Admin: 12/27/19 07:47 Dose: Not Given Documented by: Levetiracetam (Keppra Injection -) 500 mg IVPB BID [facility] Last Admin: 12/26/19 22:56 Dose: 500 mg Documented by: Levothyroxine Sodium (Synthroid Injection -) 20 mcg IVPUSH DAILY [facility] Last Admin: 12/26/19 09:37 Dose: 20 mcg Documented by: Morphine Sulfate (Morphine Sulfate) 0.5 mg IM Q3H PRN PRN Reason: PAIN LEVEL 6-10 Pantoprazole Sodium (Protonix Iv) 40 mg IVPUSH DAILY [facility] Last Admin: 12/26/19 09:37 Dose: 40 mg Documented by: Rosuvastatin Calcium (Crestor -) 10 mg PO HS [facility] Last Admin: 12/26/19 22:56 Dose: 10 mg Documented by: Scopolamine HBr (Transderm-Scop -) 1 patch TD Q72H [facility] Last Admin: 12/25/19 14:42 Dose: 1 patch Documented by: Sevelamer Carbonate (Renvela Powder Packet -) 0.8 gm PO TIDCM [facility] Last Admin: 12/27/19 07:55 Dose: 0.8 gm Documented by: Silver Sulfadiazine (Silvadene -) 1 applic TP BID [facility] Last Admin: 12/26/19 22:56 Dose: 1 applic Documented by: Vital Signs Period Temp Pulse Resp BP Sys/Hair Pulse Ox Last 24 Hr 91.8 F-98.8 F 61-100 16-24 96-154/38-90 98-100 Intake & Output 12/24/19 12/25/19 12/26/19 12/27/19 23:59 23:59 23:59 23:59 Intake Total 1465 2047 1503 Output Total 600 1500 1600 900 Balance 865 547 -97 -900 Weight 106 kg 106 kg 102.5 kg Exam: Neuro: sedated, opens eyes to noxious stimulation Pulm: very diminished in left CV: RRR Abd: SNTND +BS Ext: +2 edema CBC, BMP 12/27/19 05:45 12/27/19 05:45 CXR: lines and tubes in good position: Right sided patch opacities, unchanged, left lower lobe consolidation Microbiology 12/23/19 22:30 Blood - Peripheral Venous Blood Culture - Preliminary NO GROWTH OBTAINED AFTER 72 HOURS, INCUBATION TO CONTINUE FOR 2 DAYS. 12/23/19 22:30 Blood - Peripheral Venous Blood Culture - Preliminary NO GROWTH OBTAINED AFTER 72 HOURS, INCUBATION TO CONTINUE FOR 2 DAYS. 12/23/19 22:30 Sputum - Endotrachea Suction/Ventilator Gram Stain - Final 12/23/19 22:30 Sputum - Endotrachea Suction/Ventilator Sputum Culture - Preliminary Non Lactose Fermenting Gnb Non Lactose Fermenting Gnb#2 Lactose Fermenting Neg Bacilli 12/07/19 14:00 Blood - Peripheral Venous Blood Culture - Final Staphylococcus Aureus Corynebacterium Striatum 12/09/19 15:30 Sputum - Endotrachea Suction/Ventilator Gram Stain - Final 12/09/19 15:30 Sputum - Endotrachea Suction/Ventilator Sputum Culture - Final Pseudomonas Aeruginosa ASSESSMENT AND PLAN: s/p Cardiopulmonary Arrest Acute Hypoxic and Hypercapneic Respiratory Failure Likely Aspiration Pneumonia Septic Shock Acute on Chronic Renal Failure Lactic Acidosis Bullous Pemphigoid CAD LV Diastolic Dysfunction Atrial Fibrillation Seizure Disorder h/o CVA Hypothyroidism Anemia Thrombocytopenia - ID following for VAP: polymicrobial n/w GNR - s/p tracheostomy, will need PEG for NH placement - continue antibiotics - monitor H/H, normal transfusion thresholds - Renal following: monitor urine output, creatinine. Lasix prn - rate control - daily sedation vacation to assess mental status: will hold propofol today - continue volume assist control - enteral feeds - DVT/GI prophylaxis - ICU monitoring Boerem ACNP Pulm/CCM CCT: 40m
[2019-12-27] MEDS ORDERED: PT OWN MED DRAWER 7, Y5N ONE ×2 (09:07→22:21)
[2019-12-27] MEDS: levETIRAcetam 500 MG/5 ML INJECTION VIAL IVPB SCH ×2 (09:21→22:15)
[2019-12-27] MEDS: LEVOTHYROXINE SODIUM 100 MCG VIAL IVPUSH SCH (09:21)
[2019-12-27] MEDS: SILVER SULFADIAZINE 1% TOP CREAM 50 GM JAR TP SCH ×2 (09:21→22:31)
[2019-12-27] MEDS: CEFAZOLIN 500 MG in DEXTROSE 5%-WATER - 50 ML IVPB SCH ×2 (09:21→22:30)
[2019-12-27] MEDS: PANTOPRAZOLE SODIUM 40 MG VIAL IVPUSH SCH (09:21)
--- NOTE | 2019-12-27 11:26 | PN ---
Progress Note (short form) - Note Progress Note: s/p trach yesterday Vital Signs Period Temp Pulse Resp BP Sys/Hair Pulse Ox Last 24 Hr 91.8 F-98.8 F 61-100 16-24 96-154/38-90 98-100 cor-rrr lungs decreased bs at bases abd soft,nt ext multiple skin ulcers (shallow) CBC, BMP 12/27/19 05:45 12/27/19 05:45 + BLOOD C/S MSSA a/p MSSA bacteremia PROBABLE SKIN SOURCE ACUTE RESP FAILURE PNEUMOMIA + SPUTUM C/S MEROPENEM day #15- will d/c and observe AZOTEMIA PLANTAR ULCER HEALED BULOUS PEMPHIGOID CEFAZOLIN vigorous chest pt REPEAT BC NO GROWTH ECHO NO VEGETATIONS VENTILATORY/ HEMODYNAMIC SUPPORT d/w master merchandiser contact isolation
--- NOTE | 2019-12-27 11:41 | PN ---
Progress Note, Physician Chief Complaint: LETITIA on CKD History of Present Illness: Seen and examined in the ICU on vent via trach making urine BP stable Pt sleeping - Current Medication List Current Medications: Active Medications Artificial Tears (Artificial Tears) 1 drop OU BID PRN PRN Reason: DRY EYES Last Admin: 12/25/19 15:46 Dose: 1 drop Documented by: Cefazolin Sodium 500 mg/ (Dextrose) 50 mls @ 100 mls/hr IVPB BID [facility] Last Admin: 12/27/19 09:21 Dose: 100 mls/hr Documented by: Fentanyl (Sublimaze Ivpb) 500 mcg in 100 mls @ 21.614 mls/hr IVPB TITR [facility]; P rotocol Last Admin: 12/27/19 03:43 Dose: 0.93 mcg/kg/hr, 20 mls/hr Documented by: Propofol (Diprivan -) 1,000,000 mcg in 100 mls @ 3.164 mls/hr IVPB TITR [facility]; Protocol Last Titration: 12/27/19 07:10 Dose: 15 mcg/kg/min, 9.491 mls/hr Documented by: Insulin Aspart (Novolog Vial Sliding Scale -) 1 vial SQ ACHS [facility]; Protocol Last Admin: 12/27/19 11:37 Dose: Not Given Documented by: Levetiracetam (Keppra Injection -) 500 mg IVPB BID [facility] Last Admin: 12/27/19 09:21 Dose: 500 mg Documented by: Levothyroxine Sodium (Synthroid Injection -) 20 mcg IVPUSH DAILY [facility] Last Admin: 12/27/19 09:21 Dose: 20 mcg Documented by: Morphine Sulfate (Morphine Sulfate) 0.5 mg IM Q3H PRN PRN Reason: PAIN LEVEL 6-10 Pantoprazole Sodium (Protonix Iv) 40 mg IVPUSH DAILY [facility] Last Admin: 12/27/19 09:21 Dose: 40 mg Documented by: Rosuvastatin Calcium (Crestor -) 10 mg PO HS [facility] Last Admin: 12/26/19 22:56 Dose: 10 mg Documented by: Scopolamine HBr (Transderm-Scop -) 1 patch TD Q72H [facility] Last Admin: 12/25/19 14:42 Dose: 1 patch Documented by: Sevelamer Carbonate (Renvela Powder Packet -) 0.8 gm PO TIDCM [facility] Last Admin: 12/27/19 07:55 Dose: 0.8 gm Documented by: Silver Sulfadiazine (Silvadene -) 1 applic TP BID [facility] Last Admin: 12/27/19 09:21 Dose: 1 applic Documented by: - Objective Vital Signs: Vital Signs Temperature 91.8 F L 12/27/19 08:00 Pulse Rate 86 12/27/19 10:00 Respiratory Rate 22 H 12/27/19 10:00 Blood Pressure 128/63 12/27/19 10:00 O2 Sat by Pulse Oximetry (%) 100 12/27/19 10:00 Constitutional: Yes: No Distress HENT: Yes: Atraumatic Neck: Yes: Supple Respiratory: Yes: Mechanically Ventilated Gastrointestinal: Yes: Soft Extremities: No: Cyanosis Edema: Yes Labs: CBC, BMP 12/27/19 05:45 12/27/19 05:45 INR, PTT INR 1.14 (0.83-1.09) H 12/26/19 08:05 Assessment/Plan Impression 1. CKD 2. CHF 3. BPH 4. a. fib 5. CAD 6. epilepsy 7. proteinuria 8. anemia 9. foot ulcer 10. abd wall cellulitis 11. bullous pemphigoid 12. LETITIA 13. hyperkalemia 14. cardiac arrest 15. resp failure on vent 16. r/o aspiration Plan Renal function improving slowly There are no overt electrolyte or acid/base disturbances Start Lasix 40mg IV daily for fluid management cont cellcept for bullous pemphigoid maintain map 65 letitia on ckd likely atn post cardiac arrest Pato Caraballo DO
[2019-12-27] MEDS: FUROSEMIDE 40 MG/4 ML INJECTABLE VIAL IVPUSH SCH (12:31)
--- NOTE | 2019-12-27 14:58 | PN ---
Progress Note, Physician Chief Complaint: S/P TRACHEOSTOMY IN BED ASLEEP EVENTS AND NOTES REVIEWED - Current Medication List Current Medications: Active Medications Artificial Tears (Artificial Tears) 1 drop OU BID PRN PRN Reason: DRY EYES Last Admin: 12/25/19 15:46 Dose: 1 drop Documented by: Furosemide (Lasix Injection -) 40 mg IVPUSH DAILY [facility] Last Admin: 12/27/19 12:31 Dose: 40 mg Documented by: Cefazolin Sodium 500 mg/ (Dextrose) 50 mls @ 100 mls/hr IVPB BID [facility] Last Admin: 12/27/19 09:21 Dose: 100 mls/hr Documented by: Fentanyl (Sublimaze Ivpb) 500 mcg in 100 mls @ 21.614 mls/hr IVPB TITR [facility]; Protocol Last Admin: 12/27/19 03:43 Dose: 0.93 mcg/kg/hr, 20 mls/hr Documented by: Propofol (Diprivan -) 1,000,000 mcg in 100 mls @ 3.164 mls/hr IVPB TITR [facility]; Protocol Last Titration: 12/27/19 07:10 Dose: 15 mcg/kg/min, 9.491 mls/hr Documented by: Insulin Aspart (Novolog Vial Sliding Scale -) 1 vial SQ ACHS [facility]; Protocol Last Admin: 12/27/19 11:37 Dose: Not Given Documented by: Levetiracetam (Keppra Injection -) 500 mg IVPB BID [facility] Last Admin: 12/27/19 09:21 Dose: 500 mg Documented by: Levothyroxine Sodium (Synthroid Injection -) 20 mcg IVPUSH DAILY [facility] Last Admin: 12/27/19 09:21 Dose: 20 mcg Documented by: Pantoprazole Sodium (Protonix Iv) 40 mg IVPUSH DAILY [facility] Last Admin: 12/27/19 09:21 Dose: 40 mg Documented by: Rosuvastatin Calcium (Crestor -) 10 mg PO HS [facility] Last Admin: 12/26/19 22:56 Dose: 10 mg Documented by: Scopolamine HBr (Transderm-Scop -) 1 patch TD Q72H [facility] Last Admin: 12/25/19 14:42 Dose: 1 patch Documented by: Sevelamer Carbonate (Renvela Powder Packet -) 0.8 gm PO TIDCM [facility] Last Admin: 12/27/19 11:46 Dose: 0.8 gm Documented by: Silver Sulfadiazine (Silvadene -) 1 applic TP BID [facility] Last Admin: 12/27/19 09:21 Dose: 1 applic Documented by: - Objective Vital Signs: Vital Signs Temperature 95.8 F L 12/27/19 12:00 Pulse Rate 101 H 12/27/19 14:00 Respiratory Rate 18 12/27/19 14:00 Blood Pressure 94/50 L 12/27/19 14:00 O2 Sat by Pulse Oximetry (%) 100 12/27/19 11:56 Cardiovascular: Yes: Pulse Irregular, Other Respiratory: Yes: Mechanically Ventilated (TRACHEOSTOMY) Gastrointestinal: Yes: Other (NGT PLACED) Genitourinary: Yes: Incontinence Musculoskeletal: Yes: Muscle Weakness Wound/Incision: Yes: Open to air, Dressing Dry and Intact Neurological: Yes: Pre-Existing Deficit Labs: CBC, BMP 12/27/19 05:45 12/27/19 05:45 INR, PTT INR 1.14 (0.83-1.09) H 12/26/19 08:05 Problem List - Problems (1) Acute respiratory failure Code(s): J96.00 - ACUTE RESPIRATORY FAILURE, UNSP W HYPOXIA OR HYPERCAPNIA (2) Bullous pemphigoid Code(s): L12.0 - BULLOUS PEMPHIGOID (3) Diabetic ulcer of right foot Code(s): E11.621 - TYPE 2 DIABETES MELLITUS WITH FOOT ULCER; L97.519 - NON-PRS CHRONIC ULCER OTH PRT RIGHT FOOT W UNSP SEVERITY (4) Acute on chronic renal insufficiency Code(s): N28.9 - DISORDER OF KIDNEY AND URETER, UNSPECIFIED; N18.9 - CHRONIC KIDNEY DISEASE, UNSPECIFIED (5) Acute on chronic systolic congestive heart failure Code(s): I50.23 - ACUTE ON CHRONIC SYSTOLIC (CONGESTIVE) HEART FAILURE (6) Afib Code(s): I48.91 - UNSPECIFIED ATRIAL FIBRILLATION Assessment/Plan S/P TRACHEOSTOMY VENT SUPPORT PULMONARY EVAL IV ABX PER ID PLACEMENT OF PEG NEEDED WILL D/W INTERVENTIONAL RADIOLOGY ICU CARE
[2019-12-27] MEDS: ROSUVASTATIN CA 10 MG TABLET (FP) PO SCH (22:30)
[2019-12-28 06:28] LABS: HEMOGLOBIN 9.2 GM/dL (11.7-16.9); MCH 29.5 pg (25.7-33.7); MCHC 32.7 g/dl (32.0-35.9); MEAN CELL VOLUME 90.1 fl (80-96); PLATELET COUNT 185 K/MM3 (134-434); RBC 3.11 M/mm3 (4.00-5.60); RDW 15.4 % (11.9-15.9); WHITE BLOOD COUNT 6.9 K/mm3 (4.0-10.0)
[2019-12-28 06:43] LABS: BLOOD UREA NITROGEN 93.8 mg/dL (7-18); CALCIUM 7.5 mg/dL (8.5-10.1); CREATININE 2.4 mg/dL (0.55-1.3); MAGNESIUM 1.8 mg/dL (1.8-2.4); PHOSPHOROUS 5.1 mg/dL (2.5-4.9); POTASSIUM 3.6 mmol/L (3.5-5.1)
[2019-12-28] MEDS: INSULIN SLIDING SCALE (NOVOLOG) 1 VIAL SQ SCH ×3 (06:44→19:48)
--- NOTE | 2019-12-28 07:43 | PN ---
Progress Note (short form) - Note Progress Note: Progress Note: PULM/CCM Seen and examined in the ICU S/p trach (12/25), remains sedated; unable to wean off sedation Hypothermic o/n on Liane hugger Active Medications Artificial Tears (Artificial Tears) 1 drop OU BID PRN PRN Reason: DRY EYES Last Admin: 12/25/19 15:46 Dose: 1 drop Documented by: Furosemide (Lasix Injection -) 40 mg IVPUSH DAILY [facility] Last Admin: 12/28/19 09:55 Dose: 40 mg Documented by: Cefazolin Sodium 500 mg/ (Dextrose) 50 mls @ 100 mls/hr IVPB BID [facility] Last Admin: 12/28/19 11:16 Dose: 100 mls/hr Documented by: Fentanyl (Sublimaze Ivpb) 500 mcg in 100 mls @ 21.614 mls/hr IVPB TITR [facility]; Protocol Last Titration: 12/28/19 10:40 Dose: 0.93 mcg/kg/hr, 20 mls/hr Documented by: Propofol (Diprivan -) 1,000,000 mcg in 100 mls @ 3.164 mls/hr IVPB TITR [facility]; Protocol Last Titration: 12/28/19 10:42 Dose: 25 mcg/kg/min, 15.819 mls/hr Documented by: Insulin Aspart (Novolog Vial Sliding Scale -) 1 vial SQ ACHS [facility]; Protocol Last Admin: 12/28/19 06:44 Dose: Not Given Documented by: Levetiracetam (Keppra Injection -) 500 mg IVPB BID [facility] Last Admin: 12/28/19 09:51 Dose: 500 mg Documented by: Levothyroxine Sodium (Synthroid Injection -) 20 mcg IVPUSH DAILY [facility] Last Admin: 12/28/19 09:52 Dose: 20 mcg Documented by: Pantoprazole Sodium (Protonix Iv) 40 mg IVPUSH DAILY [facility] Last Admin: 12/28/19 09:52 Dose: 40 mg Documented by: Rosuvastatin Calcium (Crestor -) 10 mg PO HS [facility] Last Admin: 12/27/19 22:30 Dose: 10 mg Documented by: Scopolamine HBr (Transderm-Scop -) 1 patch TD Q72H [facility] Last Admin: 12/25/19 14:42 Dose: 1 patch Documented by: Sevelamer Carbonate (Renvela Powder Packet -) 0.8 gm PO TIDCM [facility] Last Admin: 12/28/19 09:48 Dose: 0.8 gm Documented by: Silver Sulfadiazine (Silvadene -) 1 applic TP BID [facility] Last Admin: 12/27/19 22:31 Dose: 1 applic Documented by: Vital Signs Period Temp Pulse Resp BP Sys/Hair Pulse Ox Last 24 Hr 95.8 F-99.2 F 88-117 17-30 94-160/48-95 99-100 Intake & Output 12/25/19 12/26/19 12/27/19 12/28/19 23:59 23:59 23:59 23:59 Intake Total 2047 1503 1311 1360 Output Total 1500 1600 1700 800 Balance 547 97 389 560 Weight 106 kg 102.5 kg 105.179 kg Exam: Neuro: sedated, opens eyes to noxious stimulation Pulm: very diminished in left CV: RRR Abd: SNTND +BS Ext: +3 edema CBC, BMP 12/28/19 05:40 12/28/19 05:40 Microbiology 12/23/19 22:30 Sputum - Endotrachea Suction/Ventilator Gram Stain - Final 12/23/19 22:30 Sputum - Endotrachea Suction/Ventilator Sputum Culture - Preliminary Providencia Stuartii Pseudomonas Aeruginosa Klebsiella Oxytoca 12/23/19 22:30 Blood - Peripheral Venous Blood Culture - Preliminary NO GROWTH OBTAINED AFTER 96 HOURS, INCUBATION TO CONTINUE FOR 1 DAYS. 12/23/19 22:30 Blood - Peripheral Venous Blood Culture - Preliminary NO GROWTH OBTAINED AFTER 96 HOURS, INCUBATION TO CONTINUE FOR 1 DAYS. ASSESSMENT AND PLAN: s/p Cardiopulmonary Arrest Acute Hypoxic and Hypercapneic Respiratory Failure Likely Aspiration Pneumonia Septic Shock Acute on Chronic Renal Failure Lactic Acidosis Bullous Pemphigoid CAD LV Diastolic Dysfunction Atrial Fibrillation Seizure Disorder h/o CVA Hypothyroidism Anemia Thrombocytopenia - ID following for VAP: polymicrobial n/w GNR - ID recs appreciated - s/p tracheostomy, will need PEG for NH placement - monitor H/H, normal transfusion thresholds - Monitor I/O, creatinine. Lasix as per renal - Renal recs appreciated - rate control - daily sedation vacation to assess mental status - continue volume assist control - TF - DVT/GI prophylaxis - ICU monitoring Christin Sepulveda ACNP Pulm/CCM
[2019-12-28] MEDS ORDERED: PT OWN MED DRAWER 7, Y5N ONE ×2 (09:35→21:14)
[2019-12-28] MEDS: SEVELAMER CARBONATE 0.8 GM POWDER PACKET PO SCH ×3 (09:48→17:52)
--- NOTE | 2019-12-28 09:50 | PN ---
Progress Note (short form) - Note Progress Note: no fevers trach to vent Vital Signs Period Temp Pulse Resp BP Sys/Hair Pulse Ox Last 24 Hr 95.8 F-99.2 F 86-117 16-30 94-160/48-95 99-100 cor-rrr lungs decreased bs at bases abd soft,nt ext skin lesions unchanged CBC, BMP 12/28/19 05:40 12/28/19 05:40 cxray improved right sided infiltrate a/p MSSA bacteremia PROBABLE SKIN SOURCE ACUTE RESP FAILURE PNEUMOMIA s/p 15 days meropenem- d/ludmila yesterday- observe off antiibotics , s/p trach AZOTEMIA PLANTAR ULCER HEALED BULLOUS PEMPHIGOID CEFAZOLIN day #21 vigorous chest pt REPEAT BC NO GROWTH ECHO NO VEGETATIONS VENTILATORY/ HEMODYNAMIC SUPPORT contact isolation resistant organisms
[2019-12-28] MEDS: levETIRAcetam 500 MG/5 ML INJECTION VIAL IVPB SCH ×2 (09:51→21:22)
[2019-12-28] MEDS: LEVOTHYROXINE SODIUM 100 MCG VIAL IVPUSH SCH (09:52)
[2019-12-28] MEDS: PANTOPRAZOLE SODIUM 40 MG VIAL IVPUSH SCH (09:52)
[2019-12-28] MEDS: FUROSEMIDE 40 MG/4 ML INJECTABLE VIAL IVPUSH SCH (09:55)
[2019-12-28] MEDS: FENTANYL NS IVPB 500 MCG/100 ML BAG IVPB SCH (10:31)
--- NOTE | 2019-12-28 10:34 | PN ---
Progress Note, Physician Chief Complaint: LETITIA on CKD History of Present Illness: Seen and examined in the ICU on vent via trach FiO2 is 35% making urine, UO `1700 - Current Medication List Current Medications: Active Medications Artificial Tears (Artificial Tears) 1 drop OU BID PRN PRN Reason: DRY EYES Last Admin: 12/25/19 15:46 Dose: 1 drop Documented by: Furosemide (Lasix Injection -) 40 mg IVPUSH DAILY [facility] Last Admin: 12/28/19 09:55 Dose: 40 mg Documented by: Cefazolin Sodium 500 mg/ (Dextrose) 50 mls @ 100 mls/hr IVPB BID [facility] Last Admin: 12/27/19 22:30 Dose: 100 mls/hr Documented by: Fentanyl (Sublimaze Ivpb) 500 mcg in 100 mls @ 21.614 mls/hr IVPB TITR [facility]; Protocol Last Admin: 12/28/19 10:31 Dose: 0.69 mcg/kg/hr, 15 mls/hr Documented by: Propofol (Diprivan -) 1,000,000 mcg in 100 mls @ 3.164 mls/hr IVPB TITR [facility]; Protocol Last Titration: 12/27/19 19:00 Dose: 15 mcg/kg/min, 9.491 mls/hr Documented by: Insulin Aspart (Novolog Vial Sliding Scale -) 1 vial SQ ACHS [facility]; Protocol Last Admin: 12/28/19 06:44 Dose: Not Given Documented by: Levetiracetam (Keppra Injection -) 500 mg IVPB BID [facility] Last Admin: 12/28/19 09:51 Dose: 500 mg Documented by: Levothyroxine Sodium (Synthroid Injection -) 20 mcg IVPUSH DAILY [facility] Last Admin: 12/28/19 09:52 Dose: 20 mcg Documented by: Pantoprazole Sodium (Protonix Iv) 40 mg IVPUSH DAILY [facility] Last Admin: 12/28/19 09:52 Dose: 40 mg Documented by: Rosuvastatin Calcium (Crestor -) 10 mg PO HS [facility] Last Admin: 12/27/19 22:30 Dose: 10 mg Documented by: Scopolamine HBr (Transderm-Scop -) 1 patch TD Q72H [facility] Last Admin: 12/25/19 14:42 Dose: 1 patch Documented by: Sevelamer Carbonate (Renvela Powder Packet -) 0.8 gm PO TIDCM [facility] Last Admin: 12/28/19 09:48 Dose: 0.8 gm Documented by: Silver Sulfadiazine (Silvadene -) 1 applic TP BID [facility] Last Admin: 12/27/19 22:31 Dose: 1 applic Documented by: - Objective Vital Signs: Vital Signs Temperature 98.2 F 12/28/19 06:00 Pulse Rate 94 H 12/28/19 08:38 Respiratory Rate 30 H 12/28/19 08:38 Blood Pressure 138/80 12/28/19 06:00 O2 Sat by Pulse Oximetry (%) 100 12/28/19 08:38 Constitutional: Yes: No Distress HENT: Yes: Atraumatic Cardiovascular: Yes: Regular Rate and Rhythm Respiratory: Yes: Mechanically Ventilated Gastrointestinal: Yes: Soft Extremities: No: Cyanosis Edema: Yes Labs: CBC, BMP 12/28/19 05:40 12/28/19 05:40 INR, PTT INR 1.14 (0.83-1.09) H 12/26/19 08:05 Assessment/Plan Impression 1. CKD 2. CHF 3. BPH 4. a. fib 5. CAD 6. epilepsy 7. proteinuria 8. anemia 9. foot ulcer 10. abd wall cellulitis 11. bullous pemphigoid 12. LETITIA 13. hyperkalemia 14. cardiac arrest 15. resp failure on vent 16. r/o aspiration Plan Renal function stable There are no overt electrolyte or acid/base disturbances Continue Lasix 40mg IV daily for fluid management cont cellcept for bullous pemphigoid maintain map 65 letitia on ckd likely atn post cardiac arrest Pato Caraballo DO
[2019-12-28] MEDS: CEFAZOLIN 500 MG in DEXTROSE 5%-WATER - 50 ML IVPB SCH ×2 (11:16→21:21)
--- NOTE | 2019-12-28 11:34 | PN ---
Progress Note, Physician Chief Complaint: LETHARGIC OFF SEDATION S/P TRACHEOSOTOMY IN ICU AWAITING PEG PLACEMENT TOMORROW - Current Medication List Current Medications: Active Medications Artificial Tears (Artificial Tears) 1 drop OU BID PRN PRN Reason: DRY EYES Last Admin: 12/25/19 15:46 Dose: 1 drop Documented by: Furosemide (Lasix Injection -) 40 mg IVPUSH DAILY [facility] Last Admin: 12/28/19 09:55 Dose: 40 mg Documented by: Cefazolin Sodium 500 mg/ (Dextrose) 50 mls @ 100 mls/hr IVPB BID [facility] Last Admin: 12/28/19 11:16 Dose: 100 mls/hr Documented by: Fentanyl (Sublimaze Ivpb) 500 mcg in 100 mls @ 21.614 mls/hr IVPB TITR [facility]; Protocol Last Titration: 12/28/19 10:40 Dose: 0.93 mcg/kg/hr, 20 mls/hr Documented by: Propofol (Diprivan -) 1,000,000 mcg in 100 mls @ 3.164 mls/hr IVPB TITR [facility]; Protocol Last Titration: 12/28/19 10:42 Dose: 25 mcg/kg/min, 15.819 mls/hr Documented by: Insulin Aspart (Novolog Vial Sliding Scale -) 1 vial SQ ACHS [facility]; Protocol Last Admin: 12/28/19 06:44 Dose: Not Given Documented by: Levetiracetam (Keppra Injection -) 500 mg IVPB BID [facility] Last Admin: 12/28/19 09:51 Dose: 500 mg Documented by: Levothyroxine Sodium (Synthroid Injection -) 20 mcg IVPUSH DAILY [facility] Last Admin: 12/28/19 09:52 Dose: 20 mcg Documented by: Pantoprazole Sodium (Protonix Iv) 40 mg IVPUSH DAILY [facility] Last Admin: 12/28/19 09:52 Dose: 40 mg Documented by: Rosuvastatin Calcium (Crestor -) 10 mg PO HS [facility] Last Admin: 12/27/19 22:30 Dose: 10 mg Documented by: Scopolamine HBr (Transderm-Scop -) 1 patch TD Q72H [facility] Last Admin: 12/25/19 14:42 Dose: 1 patch Documented by: Sevelamer Carbonate (Renvela Powder Packet -) 0.8 gm PO TIDCM [facility] Last Admin: 12/28/19 09:48 Dose: 0.8 gm Documented by: Silver Sulfadiazine (Silvadene -) 1 applic TP BID [facility] Last Admin: 12/27/19 22:31 Dose: 1 applic Documented by: - Objective Vital Signs: Vital Signs Temperature 98.2 F 12/28/19 06:00 Pulse Rate 94 H 12/28/19 08:38 Respiratory Rate 26 H 12/28/19 11:29 Blood Pressure 138/80 12/28/19 06:00 O2 Sat by Pulse Oximetry (%) 100 12/28/19 11:29 Constitutional: Yes: Mild Distress Cardiovascular: Yes: Pulse Irregular Respiratory: Yes: Diminished, Mechanically Ventilated Gastrointestinal: Yes: Soft, Abdomen, Obese Genitourinary: Yes: [place] Present Musculoskeletal: Yes: Muscle Weakness Integumentary: Yes: Erythema, Rash Wound/Incision: Yes: Dressing Dry and Intact Neurological: Yes: Pre-Existing Deficit Labs: CBC, BMP 12/28/19 05:40 12/28/19 05:40 INR, PTT INR 1.14 (0.83-1.09) H 12/26/19 08:05 Problem List - Problems (1) Acute respiratory failure Code(s): J96.00 - ACUTE RESPIRATORY FAILURE, UNSP W HYPOXIA OR HYPERCAPNIA (2) Bullous pemphigoid Code(s): L12.0 - BULLOUS PEMPHIGOID (3) Diabetic ulcer of right foot Code(s): E11.621 - TYPE 2 DIABETES MELLITUS WITH FOOT ULCER; L97.519 - NON-PRS CHRONIC ULCER OTH PRT RIGHT FOOT W UNSP SEVERITY (4) Acute on chronic renal insufficiency Code(s): N28.9 - DISORDER OF KIDNEY AND URETER, UNSPECIFIED; N18.9 - CHRONIC KIDNEY DISEASE, UNSPECIFIED (5) Acute on chronic systolic congestive heart failure Code(s): I50.23 - ACUTE ON CHRONIC SYSTOLIC (CONGESTIVE) HEART FAILURE (6) Afib Code(s): I48.91 - UNSPECIFIED ATRIAL FIBRILLATION Assessment/Plan S/P TRACHEOSTOMY VENT SUPPORT PULMONARY EVAL IV ABX PER ID PLACEMENT OF PEG NEEDED WILL D/W INTERVENTIONAL RADIOLOGY ICU CARE
[2019-12-28] MEDS: PROPOFOL 1,000,000 MCG/100 ML VIAL IVPB SCH ×2 (12:02→13:50)
[2019-12-28] MEDS: SILVER SULFADIAZINE 1% TOP CREAM 50 GM JAR TP SCH ×2 (12:39→21:24)
[2019-12-28] MEDS ORDERED: PROPOFOL 1,000,000 MCG/100 ML VIAL ONE (13:18)
--- NOTE | 2019-12-28 14:37 | PROC ---
Procedure Note Procedure: INDICATION: POOR VENOUS ACCESS I did evaluate the pts L Median cephalic vein w/ US & I did appreciate the vessel to be healthy, patent, & easily accessible. The site was prepped & draped in the usual sterile fashion. I did anesthetize the target site w/ 2cc 1% Lido. I then entered the pts L Median cephalic vein under US guidance w/ a 21G introducer needle & I did appreciate the flow of non-pulsatile dark venous blood. I then threaded a 50cm Nitinol straight tip Flexura guidewire through the needle into the pts L Median cephalic vein & I removed the needle. I then passed a 5.0 Fr MicroEZ Micro introducer w/ vessel dilator over the wire & into the vessel using the seldinger technique. I removed the wire & I appreciated the wire to be intact & whole. I then removed the central stylette & threaded a 5Fr dual lumen 20cm midline through the sheath into the vessel & then I broke away the sheath & advanced the Midline to the 20cm hub. I did appreciate the return of Dark Venous non- pulsatile blood in both ports. Both ports were flushed & capped in the usual sterile fashion. The line was secured inplace w/ the STAT-Lock system. I placed a Bio-disc on the site where the catheter breaches through the pts skin. I applied a sterile dressing to the entire site. EBL < 5cc. The pt tolerated the procedure well. I have no complications to report. Christin Sepulveda, ACNP-[facility] ICU PULM/CCM [id number]
[2019-12-28] MEDS ORDERED: FENTANYL NS IVPB 500 MCG/100 ML BAG IVPB ONE (15:28)
[2019-12-28] MEDS: SCOPOLAMINE HYDROBROMIDE 1 PATCH PATCH.TD72 TD SCH (15:38)
[2019-12-28 16:27] LABS: VENOUS O2 SATURATION 69.2 % (70-80); VENOUS PCO2 41.9 mmHg (38-52); VENOUS PH 7.347 (7.310-7.410)
[2019-12-28] MEDS: ROSUVASTATIN CA 10 MG TABLET (FP) PO SCH (21:23)
[2019-12-29] MEDS: INSULIN SLIDING SCALE (NOVOLOG) 1 VIAL SQ SCH ×2 (06:41→17:17)
[2019-12-29 07:06] LABS: BASO % 0.4 % (0-2.0); EOS % 0.9 % (0-4.5); HEMATOCRIT 26.1 % (35.4-49); HEMOGLOBIN 8.8 GM/dL (11.7-16.9); LYMPH % 15.4 % (8-40); MCH 29.7 pg (25.7-33.7); MCHC 33.6 g/dl (32.0-35.9); MEAN CELL VOLUME 88.3 fl (80-96); MEAN PLT VOLUME 7.7 fl (7.5-11.1); MONO % 8.7 % (3.8-10.2); NEUT % 74.6 % (42.8-82.8); PLATELET COUNT 161 K/MM3 (134-434); RBC 2.95 M/mm3 (4.00-5.60); RDW 15.3 % (11.9-15.9); WHITE BLOOD COUNT 5.3 K/mm3 (4.0-10.0)
[2019-12-29 07:37] LABS: ALBUMIN 1.8 g/dl (3.4-5.0); BILIRUBIN,TOTAL 0.6 mg/dL (0.2-1); BLOOD UREA NITROGEN 94.3 mg/dL (7-18); CALCIUM 7.7 mg/dL (8.5-10.1); CREATININE 2.1 mg/dL (0.55-1.3); MAGNESIUM 1.7 mg/dL (1.8-2.4); PHOSPHOROUS 4.6 mg/dL (2.5-4.9); POTASSIUM 3.5 mmol/L (3.5-5.1); TOT PROT 5.3 g/dl (6.4-8.2)
[2019-12-29] MEDS ORDERED: MAGNESIUM 1GM/D5W - 1 GM/100 ML IVPB IVPB ONE (09:30)
[2019-12-29] MEDS ORDERED: PT OWN MED DRAWER 7, Y5N ONE ×4 (09:31→21:34)
[2019-12-29] MEDS: levETIRAcetam 500 MG/5 ML INJECTION VIAL IVPB SCH ×2 (09:39→21:29)
[2019-12-29] MEDS: SEVELAMER CARBONATE 0.8 GM POWDER PACKET PO SCH ×2 (09:39→15:45)
[2019-12-29] MEDS: FUROSEMIDE 40 MG/4 ML INJECTABLE VIAL IVPUSH SCH (09:42)
[2019-12-29] MEDS: PANTOPRAZOLE SODIUM 40 MG VIAL IVPUSH SCH (09:50)
[2019-12-29] MEDS: PROPOFOL 1,000,000 MCG/100 ML VIAL IVPB SCH (10:04)
[2019-12-29] MEDS: FENTANYL NS IVPB 500 MCG/100 ML BAG IVPB SCH (10:05)
[2019-12-29] MEDS: SILVER SULFADIAZINE 1% TOP CREAM 50 GM JAR TP SCH ×2 (10:20→21:29)
[2019-12-29] MEDS ORDERED: LORazepam 2 MG/ML SDV VIAL IVPUSH PRN (10:30)
--- NOTE | 2019-12-29 11:41 | PN ---
Progress Note (short form) - Note Progress Note: s/p trach stable on vent Vital Signs Period Temp Pulse Resp BP Sys/Hair Pulse Ox Last 24 Hr 97.9 F-98.2 F 60-94 16-26 99-149/55-78 96-100 cor-rrr llungs clear decreased bs at bases abd soft,nt ext trace edema, multiple skin tears puri CBC, BMP 12/29/19 06:23 12/29/19 06:23 Microbiology 12/23/19 22:30 Gram Stain - Final Sputum - Endotrachea Suction/Ventilator Sputum Culture - Preliminary Providencia Stuartii Pseudomonas Aeruginosa Klebsiella Oxytoca 12/23/19 22:30 Blood Culture - Final Blood - Peripheral Venous NO GROWTH AFTER 5 DAYS INCUBATION 12/23/19 22:30 Blood Culture - Final Blood - Peripheral Venous NO GROWTH AFTER 5 DAYS INCUBATION a/p MSSA bacteremia PROBABLE SKIN SOURCE ACUTE RESP FAILURE completed 2 weeks of meropenem, stable on vent, observe off antiiboitice AZOTEMIA PLANTAR ULCER HEALED BULLOUS PEMPHIGOID CEFAZOLIN day #22 vigorous chest pt REPEAT BC NO GROWTH ECHO NO VEGETATIONS VENTILATORY/ HEMODYNAMIC SUPPORT contact isolation resistant organisms-suspect he is colonized overall prognosis is poor
--- NOTE | 2019-12-29 11:59 | PN ---
Physical Exam: SUBJECTIVE: Patient seen and examined. Was sedated and intubated on exam. OBJECTIVE: Vital Signs Period Temp Pulse Resp BP Sys/Hair Pulse Ox Last 24 Hr 97.9 F-98.2 F 60-94 16-26 99-149/55-78 96-100 GENERAL: The patient is sedated. HEENT: NCAT, ETT in place. NG tube in place. LUNGS: Breath sounds equal, clear to auscultation bilaterally HEART: Regular rate and rhythm, S1, S2 without murmur ABDOMEN: Soft, bowel sounds present in all 4 quadrants. EXTREMITIES: warm, well-perfused. Multiple lesions at various stages of healing in all 4 extremities. Laboratory Last Values WBC 5.3 K/mm3 (4.0-10.0) 12/29/19 06:23 RBC 2.95 M/mm3 (4.00-5.60) L 12/29/19 06:23 Hgb 8.8 GM/dL (11.7-16.9) L 12/29/19 06:23 Hct 26.1 % (35.4-49) L 12/29/19 06:23 MCV 88.3 fl (80-96) 12/29/19 06:23 MCH 29.7 pg (25.7-33.7) 12/29/19 06:23 MCHC 33.6 g/dl (32.0-35.9) 12/29/19 06:23 RDW 15.3 % (11.9-15.9) 12/29/19 06:23 Plt Count 161 K/MM3 (134-434) 12/29/19 06:23 MPV 7.7 fl (7.5-11.1) 12/29/19 06:23 Absolute Neuts (auto) 3.9 K/mm3 (1.5-8.0) 12/29/19 06:23 Neutrophils % 74.6 % (42.8-82.8) 12/29/19 06:23 Neutrophils % (Manual) 95.0 % (42.8-82.8) H 12/10/19 06:00 Band Neutrophils % 4.0 % 12/10/19 06:00 Lymphocytes % 15.4 % (8-40) D 12/29/19 06:23 Lymphocytes % (Manual) 1.0 % (8-40) L D 12/10/19 06:00 Monocytes % 8.7 % (3.8-10.2) 12/29/19 06:23 Monocytes % (Manual) 0 % (3.8-10.2) L 12/10/19 06:00 Eosinophils % 0.9 % (0-4.5) 12/29/19 06:23 Eosinophils % (Manual) 0.0 % (0-4.5) 12/10/19 06:00 Basophils % 0.4 % (0-2.0) D 12/29/19 06:23 Basophils % (Manual) 0.0 % (0-2.0) 12/10/19 06:00 Myelocytes % (Man) 0 % (0-2) 12/10/19 06:00 Promyelocytes % (Man) 0 % (0-2) 12/10/19 06:00 Blast Cells % (Manual) 0 % (0-0) 12/10/19 06:00 Nucleated RBC % 0 % (0-0) 12/29/19 06:23 Metamyelocytes 0 % (0-2) 12/10/19 06:00 Hypochromia 1+ 12/10/19 06:00 Platelet Estimate Decreased 12/10/19 06:00 Platelet Comment Present 12/07/19 19:10 Polychromasia 0 12/10/19 06:00 Poikilocytosis 1+ 12/10/19 06:00 Anisocytosis 1+ 12/10/19 06:00 Microcytosis 1+ 12/10/19 06:00 Macrocytosis 1+ 12/10/19 06:00 Tear Drop Cells 1+ 12/07/19 19:10 Ovalocytes 1+ 12/10/19 06:00 [place] Cells 1+ 12/07/19 19:10 Rouleaux 1+ 12/09/19 08:15 Schistocytes 1+ 12/10/19 06:00 PT with INR 13.50 SEC (9.7-13.0) H 12/26/19 08:05 INR 1.14 (0.83-1.09) H 12/26/19 08:05 PTT (Actin FS) 28.5 SECONDS (25.2-36.5) 12/26/19 08:05 Anticoagulation Therapy No Result Required. 12/18/19 06:10 Puncture Site Right radial 07/02/20 06:10 Patient Temperature No Result Required. 12/18/19 06:10 ABG pH 7.418 (7.350-7.450) 12/18/19 06:10 ABG pCO2 39.60 mmHg (35-45) 12/18/19 06:10 ABG pO2 62.0 mmHg (80-100) L 12/18/19 06:10 ABG HCO3 25.0 mmol/L (22-27) 12/18/19 06:10 ABG O2 Sat (Measured) 92.2 mmHg (95-98) L 12/18/19 06:10 ABG O2 Content No Result Required. 12/18/19 06:10 ABG Base Excess 0.5 mmol/L (-2-2) 12/18/19 06:10 Ishan Test Positive 12/18/19 06:10 VBG pH 7.347 (7.310-7.410) 12/28/19 14:05 POC VBG pCO2 41.9 mmHg (38-52) 12/28/19 14:05 POC VBG pO2 38.0 mmHg (28-48) 12/28/19 14:05 VBG HCO3 22.5 mmol/L (23-29) L 12/28/19 14:05 VBG O2 Sat (Sreedhar) 69.2 % (70-80) L 12/28/19 14:05 VBG Base Excess -3.0 mmol/L (-2-2) L 12/28/19 14:05 Patient On Oxygen Yes 12/18/19 06:10 O2 Delivery Device Vent 12/18/19 06:10 Oxygen Flow Rate 40 12/18/19 06:10 Vent Mode A/c 12/18/19 06:10 Vent Rate 18 12/18/19 06:10 Mechanical Rate No Result Required. 12/18/19 06:10 PEEP 5.0 cmH2O 12/18/19 06:10 Pressure Support Vent 450 12/18/19 06:10 Sodium 139 mmol/L (136-145) 12/29/19 06:23 Potassium 3.5 mmol/L (3.5-5.1) 12/29/19 06:23 Chloride 105 mmol/L (98-107) 12/29/19 06:23 Carbon Dioxide 26 mmol/L (21-32) 12/29/19 06:23 Anion Gap 9 MMOL/L (8-16) 12/29/19 06:23 BUN 94.3 mg/dL (7-18) H 12/29/19 06:23 Creatinine 2.1 mg/dL (0.55-1.3) H 12/29/19 06:23 Est GFR (CKD-EPI)AfAm 33.21 12/29/19 06:23 Est GFR (CKD-EPI)NonAf 28.66 12/29/19 06:23 POC Glucometer 89 UNITS (80-120) 12/29/19 17:15 Random Glucose 141 mg/dL (74-106) H 12/29/19 06:23 Lactic Acid 3.6 mmol/L (0.4-2.0) H* 12/09/19 08:15 Calcium 7.7 mg/dL (8.5-10.1) L 12/29/19 06:23 Phosphorus 4.6 mg/dL (2.5-4.9) 12/29/19 06:23 Magnesium 1.7 mg/dL (1.8-2.4) L 12/29/19 06:23 Iron 180 ug/dL (50-175) H 12/04/19 06:55 TIBC 197 ug/dL (250-450) L 12/04/19 06:55 Iron Saturation 91 % (17.5-39) H 12/04/19 06:55 Unsaturated IBC 17 ug/dL (200-275) L 12/04/19 06:55 Ferritin 736.1 ng/ml (8-388) H 12/04/19 06:55 Total Bilirubin 0.6 mg/dL (0.2-1) 12/29/19 06:23 AST 24 U/L (15-37) 12/29/19 06:23 ALT 7 U/L (13-61) L 12/29/19 06:23 Alkaline Phosphatase 95 U/L (45-117) 12/29/19 06:23 Creatine Kinase 38 U/L (26-308) 12/07/19 14:00 Troponin I < 0.02 ng/ml (0.00-0.05) 12/09/19 08:15 Total Protein 5.3 g/dl (6.4-8.2) L 12/29/19 06:23 Albumin 1.8 g/dl (3.4-5.0) L 12/29/19 06:23 Prolactin 287.0 ng/ml (4.0-15.2) H 12/09/19 08:15 Vancomycin Pre-Dose 14.8 ug/ml (5-10) H 12/10/19 10:33 COVID-19 (SHENG) Not detected (Not Detected) 12/08/19 22:30 Blood Type B POSITIVE 12/26/19 08:05 Antibody Screen Negative 12/26/19 08:05 Crossmatch See Detail 12/20/19 09:15 Active Medications Artificial Tears (Artificial Tears) 1 drop OU BID PRN PRN Reason: DRY EYES Last Admin: 12/25/19 15:46 Dose: 1 drop Documented by: Furosemide (Lasix Injection -) 40 mg IVPUSH DAILY [facility] Last Admin: 12/29/19 09:42 Dose: 40 mg Documented by: Cefazolin Sodium 500 mg/ (Dextrose) 50 mls @ 100 mls/hr IVPB BID [facility] Last Admin: 12/29/19 12:45 Dose: 100 mls/hr Documented by: Insulin Aspart (Novolog Vial Sliding Scale -) 1 vial SQ BIDI [facility]; Protocol Last Admin: 12/29/19 17:17 Dose: Not Given Documented by: Levetiracetam (Keppra Injection -) 500 mg IVPB BID [facility] Last Admin: 12/29/19 09:39 Dose: 500 mg Documented by: Levothyroxine Sodium (Synthroid Injection -) 20 mcg IVPUSH DAILY [facility] Last Admin: 12/29/19 17:11 Dose: 20 mcg Documented by: Lorazepam (Ativan Injection -) 1 mg IVPUSH Q6H PRN PRN Reason: AGITATION Last Admin: 12/29/19 15:24 Dose: 1 mg Documented by: Morphine Sulfate (Morphine Sulfate) 4 mg IVPUSH Q4H PRN PRN Reason: PAIN LEVEL 6-10 Last Admin: 12/29/19 13:51 Dose: 4 mg Documented by: Pantoprazole Sodium (Protonix Iv) 40 mg IVPUSH DAILY [facility] Last Admin: 12/29/19 09:50 Dose: 40 mg Documented by: Rosuvastatin Calcium (Crestor -) 10 mg PO HS [facility] Last Admin: 07/12/20 21:23 Dose: 10 mg Documented by: Scopolamine HBr (Transderm-Scop -) 1 patch TD Q72H [facility] Last Admin: 12/28/19 15:38 Dose: 1 patch Documented by: Sevelamer Carbonate (Renvela Powder Packet -) 0.8 gm PO TIDCM [facility] Last Admin: 12/29/19 15:45 Dose: Not Given Documented by: Silver Sulfadiazine (Silvadene -) 1 applic TP BID [facility] Last Admin: 12/29/19 10:20 Dose: 1 applic Documented by: ASSESSMENT/PLAN: 79 y/o male PMH dCHF, afib, CAD s/p PCI, HTN, seizure d/o, CVA with right sided residual deficit, CKD, hypothyroidism, and bullous pemphigoid. He is now s/p cardiopulmonary arrest (on 12/09/2019) and possible aspiration pneumonia, admitted to the ICU due to acute hypoxic respiratory failure. He was anemic on 12/19 with Hb of 6.3 and received 3 U pRBCs. Hb has since stabilized. # Neuro: Seizure disorder h/o CVA with right-side residual deficit - Sedated on fentanyl and propofol - On Keppra - Sedation vacation daily to assess mental status # Card: Afib diastolic CHF CAD HTN Anemia - Hb 8.8; Continue to monitor. Transfuse if Hb <8. - Hold Eliquis - On rosuvastatin # Pulm ARDS, aspiration PNA -Mechanically ventilated. Wean as tolerated. CXR with L lower lobe consolidation w/ small pleural effusion seen again. -Tracheostomy 12/25. -On albuterol-ipratropium -Vent settings: 16/450/40%/5 -Will not obtain daily ABG unless clinically significant change. Recent trend has been stable. # ID - Repeat blood cultures negative - c/w Cefazolin (12/11) -ID consulted. 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 Contact isolation resistant organisms. #GI -Awaiting Peg placement # Renal - continuing improvement of LETITIA on CKD (s/p cardiac arrest) - Continue monitoring I/O, BUN, Cr - Nephrology consulted. Recommended continue with lasix. - On Renvela #Endo -ISS + BGM -On synthroid # Skin - Silvadene # FEN - NG tube placed and resuming trickle feeds #Lines, tubes, drains: 12/08 - ETT 12/27 - L midline # Prophylaxis: - DVT: Hold eliquis; SCDs - GI: Protonix # Code Status / Family Conversation: - Full Code - Dr. Branch of palliative care consulted. Will f/u recommendations. (Mandy): [phone] Son (Cj): [phone] Visit type - Emergency Visit Emergency Visit: Yes ED Registration Date: 12/03/19 Care time: The patient presented to the Emergency Department on the above date a nd was hospitalized for further evaluation of their emergent condition. - New Patient This patient is new to me today: No - Critical Care Critical Care patient: Yes Total Critical Care Time (in minutes): 38 Critical Care Statement: The care of this patient involved high complexity decision making to prevent further life threatening deterioration of the patient's condition and/or to evaluate & treat vital organ system(s) failure or risk of failure. ATTENDING PHYSICIAN STATEMENT I saw and evaluated the patient. I reviewed the resident's note and discussed the case with the resident. I agree with the resident's findings and plan as documented. SUBJECTIVE: OBJECTIVE: ASSESSMENT AND PLAN:
--- NOTE | 2019-12-29 12:39 | PN ---
Teaching Attending Note Name of Resident: Otilia Felipe ATTENDING PHYSICIAN STATEMENT I saw and evaluated the patient. I reviewed the resident's note and discussed the case with the resident. I agree with the resident's findings and plan as documented. SUBJECTIVE: Patient seen and examined in the ICU. Vented via Tracheostomy. No pressors. Confused. OBJECTIVE: Intake & Output 12/26/19 12/27/19 12/28/19 12/29/19 23:59 23:59 23:59 23:59 Intake Total 1503 1311 3631 450 Output Total 1600 1700 1600 750 Balance -97 -389 2031 -300 Weight 225 lb 15.581 oz 231 lb 14.08 oz 238 lb 11.2 oz Last Vital Signs Temp Pulse Resp BP Pulse Ox 98 F 100 H 24 H 174/89 H 100 12/29/19 10:00 12/29/19 12:00 12/29/19 12:00 12/29/19 12:00 12/29/19 11:35 Active Medications Artificial Tears (Artificial Tears) 1 drop OU BID PRN PRN Reason: DRY EYES Last Admin: 12/25/19 15:46 Dose: 1 drop Documented by: Furosemide (Lasix Injection -) 40 mg IVPUSH DAILY [facility] Last Admin: 12/29/19 09:42 Dose: 40 mg Documented by: Cefazolin Sodium 500 mg/ (Dextrose) 50 mls @ 100 mls/hr IVPB BID [facility] Last Admin: 12/28/19 21:21 Dose: 100 mls/hr Documented by: Insulin Aspart (Novolog Vial Sliding Scale -) 1 vial SQ BIDI [facility]; Protocol Last Admin: 12/29/19 06:41 Dose: Not Given Documented by: Levetiracetam (Keppra Injection -) 500 mg IVPB BID [facility] Last Admin: 12/29/19 09:39 Dose: 500 mg Documented by: Levothyroxine Sodium (Synthroid Injection -) 20 mcg IVPUSH DAILY [facility] Last Admin: 12/28/19 09:52 Dose: 20 mcg Documented by: Lorazepam (Ativan Injection -) 1 mg IVPUSH Q6H PRN PRN Reason: AGITATION Morphine Sulfate (Morphine Sulfate) 4 mg IVPUSH Q4H PRN PRN Reason: PAIN LEVEL 6-10 Pantoprazole Sodium (Protonix Iv) 40 mg IVPUSH DAILY [facility] Last Admin: 12/29/19 09:50 Dose: 40 mg Documented by: Rosuvastatin Calcium (Crestor -) 10 mg PO HS [facility] Last Admin: 12/28/19 21:23 Dose: 10 mg Documented by: Scopolamine HBr (Transderm-Scop -) 1 patch TD Q72H [facility] Last Admin: 12/28/19 15:38 Dose: 1 patch Documented by: Sevelamer Carbonate (Renvela Powder Packet -) 0.8 gm PO TIDCM [facility] Last Admin: 12/29/19 09:39 Dose: 0.8 gm Documented by: Silver Sulfadiazine (Silvadene -) 1 applic TP BID [facility] Last Admin: 12/28/19 21:24 Dose: 1 applic Documented by: Gen: Vented, sedated Heart: RRR Lung; Vented, scattered rhonchi Abd: soft, nontender Ext: + edema Laboratory Results - last 24 hr 12/28/19 12/28/19 12/29/19 14:05 16:09 06:23 WBC RBC Hgb Hct MCV MCH MCHC RDW Plt Count MPV Absolute Neuts (auto) Neutrophils % Lymphocytes % Monocytes % Eosinophils % Basophils % Nucleated RBC % VBG pH 7.347 POC VBG pCO2 41.9 POC VBG pO2 38.0 VBG HCO3 22.5 L VBG O2 Sat (Sreedhar) 69.2 L VBG Base Excess -3.0 L Sodium 139 Potassium 3.5 Chloride 105 Carbon Dioxide 26 Anion Gap 9 BUN 94.3 H Creatinine 2.1 H Est GFR (CKD-EPI)AfAm 33.21 Est GFR (CKD-EPI)NonAf 28.66 POC Glucometer 109 Random Glucose 141 H Calcium 7.7 L Phosphorus 4.6 Magnesium 1.7 L Total Bilirubin 0.6 AST 24 ALT 7 L Alkaline Phosphatase 95 Total Protein 5.3 L Albumin 1.8 L 12/29/19 12/29/19 06:23 06:36 WBC 5.3 RBC 2.95 L Hgb 8.8 L Hct 26.1 L MCV 88.3 MCH 29.7 MCHC 33.6 RDW 15.3 Plt Count 161 MPV 7.7 Absolute Neuts (auto) 3.9 Neutrophils % 74.6 Lymphocytes % 15.4 D Monocytes % 8.7 Eosinophils % 0.9 Basophils % 0.4 D Nucleated RBC % 0 VBG pH POC VBG pCO2 POC VBG pO2 VBG HCO3 VBG O2 Sat (Seredhar) VBG Base Excess Sodium Potassium Chloride Carbon Dioxide Anion Gap BUN Creatinine Est GFR (CKD-EPI)AfAm Est GFR (CKD-EPI)NonAf POC Glucometer 107 Random Glucose Calcium Phosphorus Magnesium Total Bilirubin AST ALT Alkaline Phosphatase Total Protein Albumin Problem List - Problems (1) Bullous pemphigoid Code(s): L12.0 - BULLOUS PEMPHIGOID (2) Generalized weakness Code(s): R53.1 - WEAKNESS (3) Unable to ambulate Code(s): R26.2 - DIFFICULTY IN WALKING, NOT ELSEWHERE CLASSIFIED (4) Blisters of multiple sites Code(s): R23.8 - OTHER SKIN CHANGES (5) Abnormal liver enzymes Code(s): R74.8 - ABNORMAL LEVELS OF OTHER SERUM ENZYMES (6) Wound of foot Code(s): S91.309A - UNSPECIFIED OPEN WOUND, UNSPECIFIED FOOT, INITIAL ENCOUNTER (7) Afib Code(s): I48.91 - UNSPECIFIED ATRIAL FIBRILLATION (8) Anemia Code(s): D64.9 - ANEMIA, UNSPECIFIED Qualifiers: Iron deficiency anemia type: chronic blood loss (9) BPH (benign prostatic hyperplasia) Code(s): N40.0 - BENIGN PROSTATIC HYPERPLASIA WITHOUT LOWER URINRY TRACT SYMP (10) CAD (coronary artery disease) Code(s): I25.10 - ATHSCL HEART DISEASE OF [place] CORONARY ARTERY W/O ANG PCTRS (11) CHF (congestive heart failure) Code(s): I50.9 - HEART FAILURE, UNSPECIFIED (12) CKD (chronic kidney disease) Code(s): N18.9 - CHRONIC KIDNEY DISEASE, UNSPECIFIED (13) Diabetes mellitus Code(s): E11.9 - TYPE 2 DIABETES MELLITUS WITHOUT COMPLICATIONS (14) Diastolic CHF Code(s): I50.30 - UNSPECIFIED DIASTOLIC (CONGESTIVE) HEART FAILURE (15) Gastritis Code(s): K29.70 - GASTRITIS, UNSPECIFIED, WITHOUT BLEEDING (16) HTN (hypertension) Code(s): I10 - ESSENTIAL (PRIMARY) HYPERTENSION (17) History of colon cancer Code(s): Z85.038 - PERSONAL HISTORY OF MALIGNANT NEOPLASM OF LARGE INTESTINE (18) History of duodenal ulcer Code(s): Z87.19 - PERSONAL HISTORY OF OTHER DISEASES OF THE DIGESTIVE SYSTEM (19) Hyperlipidemia Code(s): E78.5 - HYPERLIPIDEMIA, UNSPECIFIED (20) Hypothyroid Code(s): E03.9 - HYPOTHYROIDISM, UNSPECIFIED (21) Paroxysmal atrial fibrillation Code(s): I48.0 - PAROXYSMAL ATRIAL FIBRILLATION (22) Peripheral arterial disease Code(s): I73.9 - PERIPHERAL VASCULAR DISEASE, UNSPECIFIED (23) Peripheral vascular disease Code(s): I73.9 - PERIPHERAL VASCULAR DISEASE, UNSPECIFIED (24) Pulmonary hypertension Code(s): I27.2 - OTHER SECONDARY PULMONARY HYPERTENSION * DO NOT USE * (25) Seizure Code(s): R56.9 - UNSPECIFIED CONVULSIONS (26) Seizure disorder Code(s): G40.909 - EPILEPSY, UNSP, NOT INTRACTABLE, WITHOUT STATUS EPILEPTICUS ASSESSMENT AND PLAN: s/p Cardiopulmonary Arrest Acute Hypoxic and Hypercapneic Respiratory Failure Likely Aspiration Pneumonia Septic Shock Acute on Chronic Renal Failure Lactic Acidosis Bullous Pemphigoid CAD LV Diastolic Dysfunction Atrial Fibrillation Seizure Disorder h/o CVA Hypothyroidism Anemia Thrombocytopenia - ABX - monitor H/H - monitor urine output, creatinine - rate control - PRN MS & Ativan - continue volume assist control : Not ready for wean trials - enteral feeds : Will need PEG - DVT/GI prophylaxis - Lasix - Vent floor monitoring Dr Contreras Problem List - Problems (1) Bullous pemphigoid Code(s): L12.0 - BULLOUS PEMPHIGOID (2) Generalized weakness Code(s): R53.1 - WEAKNESS (3) Unable to ambulate Code(s): R26.2 - DIFFICULTY IN WALKING, NOT ELSEWHERE CLASSIFIED (4) Blisters of multiple sites Code(s): R23.8 - OTHER SKIN CHANGES (5) Abnormal liver enzymes Code(s): R74.8 - ABNORMAL LEVELS OF OTHER SERUM ENZYMES (6) Wound of foot Code(s): S91.309A - UNSPECIFIED OPEN WOUND, UNSPECIFIED FOOT, INITIAL ENCOUNTER (7) Afib Code(s): I48.91 - UNSPECIFIED ATRIAL FIBRILLATION (8) Anemia Code(s): D64.9 - ANEMIA, UNSPECIFIED Qualifiers: Iron deficiency anemia type: chronic blood loss (9) BPH (benign prostatic hyperplasia) Code(s): N40.0 - BENIGN PROSTATIC HYPERPLASIA WITHOUT LOWER URINRY TRACT SYMP (10) CAD (coronary artery disease) Code(s): I25.10 - ATHSCL HEART DISEASE OF [place] CORONARY ARTERY W/O ANG PCTRS (11) CHF (congestive heart failure) Code(s): I50.9 - HEART FAILURE, UNSPECIFIED (12) CKD (chronic kidney disease) Code(s): N18.9 - CHRONIC KIDNEY DISEASE, UNSPECIFIED (13) Diabetes mellitus Code(s): E11.9 - TYPE 2 DIABETES MELLITUS WITHOUT COMPLICATIONS (14) Diastolic CHF Code(s): I50.30 - UNSPECIFIED DIASTOLIC (CONGESTIVE) HEART FAILURE (15) Gastritis Code(s): K29.70 - GASTRITIS, UNSPECIFIED, WITHOUT BLEEDING (16) HTN (hypertension) Code(s): I10 - ESSENTIAL (PRIMARY) HYPERTENSION (17) History of colon cancer Code(s): Z85.038 - PERSONAL HISTORY OF MALIGNANT NEOPLASM OF LARGE INTESTINE (18) History of duodenal ulcer Code(s): Z87.19 - PERSONAL HISTORY OF OTHER DISEASES OF THE DIGESTIVE SYSTEM (19) Hyperlipidemia Code(s): E78.5 - HYPERLIPIDEMIA, UNSPECIFIED (20) Hypothyroid Code(s): E03.9 - HYPOTHYROIDISM, UNSPECIFIED (21) Paroxysmal atrial fibrillation Code(s): I48.0 - PAROXYSMAL ATRIAL FIBRILLATION (22) Peripheral arterial disease Code(s): I73.9 - PERIPHERAL VASCULAR DISEASE, UNSPECIFIED (23) Peripheral vascular disease Code(s): I73.9 - PERIPHERAL VASCULAR DISEASE, UNSPECIFIED (24) Pulmonary hypertension Code(s): I27.2 - OTHER SECONDARY PULMONARY HYPERTENSION * DO NOT USE * (25) Seizure Code(s): R56.9 - UNSPECIFIED CONVULSIONS (26) Seizure disorder Code(s): G40.909 - EPILEPSY, UNSP, NOT INTRACTABLE, WITHOUT STATUS EPILEPTICUS
[2019-12-29] MEDS: CEFAZOLIN 500 MG in DEXTROSE 5%-WATER - 50 ML IVPB SCH ×2 (12:45→21:32)
[2019-12-29] MEDS: morphine SULFATE 4 MG/ML VIAL IVPUSH PRN ×2 (13:51→21:29)
--- NOTE | 2019-12-29 13:56 | PN ---
Progress Note, Physician History of Present Illness: Pt seen and examined at bedside. He remains in the ICU. He now has a trache. - Current Medication List Current Medications: Active Medications Artificial Tears (Artificial Tears) 1 drop OU BID PRN PRN Reason: DRY EYES Last Admin: 12/25/19 15:46 Dose: 1 drop Documented by: Furosemide (Lasix Injection -) 40 mg IVPUSH DAILY [facility] Last Admin: 12/29/19 09:42 Dose: 40 mg Documented by: Cefazolin Sodium 500 mg/ (Dextrose) 50 mls @ 100 mls/hr IVPB BID [facility] Last Admin: 12/29/19 12:45 Dose: 100 mls/hr Documented by: Insulin Aspart (Novolog Vial Sliding Scale -) 1 vial SQ BIDI [facility]; Protocol Last Admin: 12/29/19 06:41 Dose: Not Given Documented by: Levetiracetam (Keppra Injection -) 500 mg IVPB BID [facility] Last Admin: 12/29/19 09:39 Dose: 500 mg Documented by: Levothyroxine Sodium (Synthroid Injection -) 20 mcg IVPUSH DAILY [facility] Last Admin: 12/28/19 09:52 Dose: 20 mcg Documented by: Lorazepam (Ativan Injection -) 1 mg IVPUSH Q6H PRN PRN Reason: AGITATION Morphine Sulfate (Morphine Sulfate) 4 mg IVPUSH Q4H PRN PRN Reason: PAIN LEVEL 6-10 Last Admin: 12/29/19 13:51 Dose: 4 mg Documented by: Pantoprazole Sodium (Protonix Iv) 40 mg IVPUSH DAILY [facility] Last Admin: 12/29/19 09:50 Dose: 40 mg Documented by: Rosuvastatin Calcium (Crestor -) 10 mg PO HS [facility] Last Admin: 12/28/19 21:23 Dose: 10 mg Documented by: Scopolamine HBr (Transderm-Scop -) 1 patch TD Q72H [facility] Last Admin: 12/28/19 15:38 Dose: 1 patch Documented by: Sevelamer Carbonate (Renvela Powder Packet -) 0.8 gm PO TIDCM [facility] Last Admin: 12/29/19 09:39 Dose: 0.8 gm Documented by: Silver Sulfadiazine (Silvadene -) 1 applic TP BID [facility] Last Admin: 12/28/19 21:24 Dose: 1 applic Documented by: - Objective Vital Signs: Vital Signs Temperature 98 F 12/29/19 10:00 Pulse Rate 100 H 12/29/19 12:00 Respiratory Rate 24 H 12/29/19 12:00 Blood Pressure 174/89 H 12/29/19 12:00 O2 Sat by Pulse Oximetry (%) 100 12/29/19 11:35 Constitutional: Yes: Calm Eyes: Yes: Conjunctiva Clear HENT: Yes: Atraumatic Neck: Yes: Other (trache) Cardiovascular: Yes: S1, S2 Respiratory: Yes: Mechanically Ventilated Gastrointestinal: Yes: Soft Genitourinary: Yes: [place] Present Musculoskeletal: Yes: Muscle Weakness Edema: Yes Edema: LLE: 1+, RLE: 1+ Integumentary: Yes: Other (bullous pemphigoid) Neurological: Yes: Lethargy Labs: CBC, BMP 12/29/19 06:23 12/29/19 06:23 INR, PTT INR 1.14 (0.83-1.09) H 12/26/19 08:05 Problem List - Problems (1) Acute respiratory failure Code(s): J96.00 - ACUTE RESPIRATORY FAILURE, UNSP W HYPOXIA OR HYPERCAPNIA (2) Bullous pemphigoid Code(s): L12.0 - BULLOUS PEMPHIGOID Assessment/Plan Current Medications Generic Name Dose Route Start Last Admin Trade Name Freq PRN Reason Stop Dose Admin Artificial Tears 1 drop 12/15/19 07:31 12/25/19 15:46 Artificial Tears OU 1 drop BID PRN Administration DRY EYES Furosemide 40 mg 12/27/19 11:45 12/29/19 09:42 Lasix Injection - IVPUSH 40 mg DAILY [facility] Administration Cefazolin Sodium 500 mg/ 50 mls @ 100 mls/hr 12/12/19 12:45 12/29/19 12:45 Dextrose IVPB 100 mls/hr BID [facility] Administration Insulin Aspart 1 vial 12/28/19 16:30 12/29/19 06:41 Novolog Vial Sliding Scale - SQ Not Given BIDI [facility] Protocol Levetiracetam 500 mg 12/09/19 10:00 12/29/19 09:39 Keppra Injection - IVPB 500 mg BID [facility] Administration Levothyroxine Sodium 20 mcg 12/09/19 10:00 12/28/19 09:52 Synthroid Injection - IVPUSH 20 mcg DAILY [facility] Administration Lorazepam 1 mg 12/29/19 10:30 Ativan Injection - IVPUSH Q6H PRN AGITATION Morphine Sulfate 4 mg 12/29/19 10:30 12/29/19 13:51 Morphine Sulfate IVPUSH 4 mg Q4H PRN Administration PAIN LEVEL 6-10 Pantoprazole Sodium 40 mg 12/09/19 10:00 12/29/19 09:50 Protonix Iv IVPUSH 40 mg DAILY [facility] Administration Rosuvastatin Calcium 10 mg 12/07/19 22:00 12/28/19 21:23 Crestor - PO 10 mg HS [facility] Administration Scopolamine HBr 1 patch 12/25/19 14:15 12/28/19 15:38 Transderm-Scop - TD 1 patch Q72H [facility] Administration Sevelamer Carbonate 0.8 gm 12/16/19 17:30 12/29/19 09:39 Renvela Powder Packet - PO 0.8 gm TIDCM [facility] Administration Silver Sulfadiazine 1 applic 12/15/19 12:45 12/28/19 21:24 Silvadene - TP 1 applic BID [facility] Administration Impression 1. CKD 2. CHF 3. BPH 4. a. fib 5. CAD 6. epilepsy 7. proteinuria 8. anemia 9. foot ulcer 10. abd wall cellulitis 11. bullous pemphigoid 12. LETITIA 13. hyperkalemia 14. cardiac arrest 15. resp failure on vent 16. r/o aspiration Plan - cont to monitor renal function - cont vent support - monitor lytes - repeat labs in am - cont cellcept for bullous pemphigoid - letitia on ckd likely atn post cardiac arrest
[2019-12-29] MEDS: LEVOTHYROXINE SODIUM 100 MCG VIAL IVPUSH SCH (17:11)
--- NOTE | 2019-12-29 17:43 | PN ---
Progress Note, Physician Chief Complaint: s/p Cardiopulmonary Arrest Acute Hypoxic and Hypercapneic Respiratory Failure Likely Aspiration Pneumonia Septic Shock Acute on Chronic Renal Failure Lactic Acidosis Bullous Pemphigoid CAD LV Diastolic Dysfunction Atrial Fibrillation Seizure Disorder h/o CVA Hypothyroidism Anemia Thrombocytopenia History of Present Illness: s/p trach opens his eyes, nodding his head - Current Medication List Current Medications: Active Medications Artificial Tears (Artificial Tears) 1 drop OU BID PRN PRN Reason: DRY EYES Last Admin: 12/25/19 15:46 Dose: 1 drop Documented by: Furosemide (Lasix Injection -) 40 mg IVPUSH DAILY [facility] Last Admin: 12/29/19 09:42 Dose: 40 mg Documented by: Cefazolin Sodium 500 mg/ (Dextrose) 50 mls @ 100 mls/hr IVPB BID [facility] Last Admin: 12/29/19 12:45 Dose: 100 mls/hr Documented by: Insulin Aspart (Novolog Vial Sliding Scale -) 1 vial SQ BIDI [facility]; Protocol Last Admin: 12/29/19 17:17 Dose: Not Given Documented by: Levetiracetam (Keppra Injection -) 500 mg IVPB BID [facility] Last Admin: 12/29/19 09:39 Dose: 500 mg Documented by: Levothyroxine Sodium (Synthroid Injection -) 20 mcg IVPUSH DAILY [facility] Last Admin: 12/29/19 17:11 Dose: 20 mcg Documented by: Lorazepam (Ativan Injection -) 1 mg IVPUSH Q6H PRN PRN Reason: AGITATION Last Admin: 12/29/19 15:24 Dose: 1 mg Documented by: Morphine Sulfate (Morphine Sulfate) 4 mg IVPUSH Q4H PRN PRN Reason: PAIN LEVEL 6-10 Last Admin: 12/29/19 13:51 Dose: 4 mg Documented by: Pantoprazole Sodium (Protonix Iv) 40 mg IVPUSH DAILY [facility] Last Admin: 12/29/19 09:50 Dose: 40 mg Documented by: Rosuvastatin Calcium (Crestor -) 10 mg PO HS [facility] Last Admin: 12/28/19 21:23 Dose: 10 mg Documented by: Scopolamine HBr (Transderm-Scop -) 1 patch TD Q72H [facility] Last Admin: 12/28/19 15:38 Dose: 1 patch Documented by: Sevelamer Carbonate (Renvela Powder Packet -) 0.8 gm PO TIDCM [facility] Last Admin: 12/29/19 15:45 Dose: Not Given Documented by: Silver Sulfadiazine (Silvadene -) 1 applic TP BID [facility] Last Admin: 12/29/19 10:20 Dose: 1 applic Documented by: - Objective Vital Signs: Vital Signs Temperature 98.4 F 12/29/19 14:00 Pulse Rate 98 H 12/29/19 16:02 Respiratory Rate 21 H 12/29/19 16:27 Blood Pressure 142/82 12/29/19 16:02 O2 Sat by Pulse Oximetry (%) 100 12/29/19 16:27 Constitutional: Yes: Well Nourished, No Distress, Calm Cardiovascular: Yes: Regular Rate and Rhythm Respiratory: Yes: Mechanically Ventilated, Rhonchi Gastrointestinal: Yes: Normal Bowel Sounds, Soft, Abdomen, Obese Genitourinary: Yes: [place] Present Musculoskeletal: Yes: Muscle Weakness Edema: No Peripheral Pulses WNL: Yes Integumentary: Yes: Other (Generalized bleeding blisters) Neurological: Yes: Alert Labs: CBC, BMP 12/29/19 06:23 12/29/19 06:23 INR, PTT INR 1.14 (0.83-1.09) H 12/26/19 08:05 Problem List - Problems (1) Acute respiratory failure Assessment/Plan: -Mech vent -Pulmonary consult -IV Cefazolin + meropenem -Enteral feeds-restarted,tolerating well---> PEG insertion -Bronchodilators Problems reviewed: Yes Code(s): J96.00 - ACUTE RESPIRATORY FAILURE, UNSP W HYPOXIA OR HYPERCAPNIA (2) Bullous pemphigoid Assessment/Plan: -Cellcept discontinued 2/2 to GI bleed -Silvadene top Problems reviewed: Yes Code(s): L12.0 - BULLOUS PEMPHIGOID (3) Acute on chronic renal insufficiency Assessment/Plan: -Nephrology on board -monitor daily labs Problems reviewed: Yes Code(s): N28.9 - DISORDER OF KIDNEY AND URETER, UNSPECIFIED; N18.9 - CHRONIC KIDNEY DISEASE, UNSPECIFIED (4) Pneumonia Assessment/Plan: -Likely aspiration -CXR reviewed -Repeat COVID 19 PCR negative -IV abx -ID consult -Lactic acidosis noted Problems reviewed: Yes Code(s): J18.9 - PNEUMONIA, UNSPECIFIED ORGANISM (5) Afib Assessment/Plan: -Chronic, rate controlled -Eliquis Held due to acute GI bleed -Transfuse only if Hg <7.0 to avoid fluid overload Problems reviewed: Yes Code(s): I48.91 - UNSPECIFIED ATRIAL FIBRILLATION (6) Anemia Assessment/Plan: -Chronic -H/H stable at this time -workup last admission was negative -hematology consult -Transfuse only if hg<7.0 to avoid fluid overload. Problems reviewed: Yes Code(s): D64.9 - ANEMIA, UNSPECIFIED (7) Bacteremia Assessment/Plan: -Repeat BC negative -IV abx -ID on board -SC: Microbiology 12/23/19 22:30 Blood Culture - Preliminary Blood - Peripheral Venous NO GROWTH OBTAINED AFTER 48 HOURS, INCUBATION TO CONTINUE FOR 3 DAYS. 12/23/19 22:30 Blood Culture - Preliminary Blood - Peripheral Venous NO GROWTH OBTAINED AFTER 48 HOURS, INCUBATION TO CONTINUE FOR 3 DAYS. 12/23/19 22:30 Gram Stain - Final Sputum - Endotrachea Suction/Ventilator Sputum Culture - Preliminary Non Lactose Fermenting Gnb Non Lactose Fermenting Gnb#2 Lactose Fermenting Neg Bacilli 12/24/19 02:00 Urine Culture - Final Urine - Urine Duvall NO GROWTH OBTAINED Problems reviewed: Yes Code(s): R78.81 - BACTEREMIA Assessment/Plan See problem list GI PPX
[2019-12-29] MEDS: ROSUVASTATIN CA 10 MG TABLET (FP) PO SCH (21:29)
[2019-12-30] MEDS ORDERED: LIDOCAINE VISCOUS 2% ORAL/TOP 100 ML BOTTLE MM ONE (00:44)
[2019-12-30] MEDS ORDERED: LIDOCAINE VISCOUS 2% ORAL/TOP 20 ML UNIT-DOSE CUP MM ONE (01:15)
[2019-12-30] MEDS: morphine SULFATE 4 MG/ML VIAL IVPUSH PRN ×2 (05:00→10:20)
[2019-12-30 06:52] LABS: BASO % 0.3 % (0-2.0); EOS % 0.5 % (0-4.5); HEMOGLOBIN 10.2 GM/dL (11.7-16.9); LYMPH % 14.8 % (8-40); MCH 29.8 pg (25.7-33.7); MEAN CELL VOLUME 90.2 fl (80-96); MONO % 11.7 % (3.8-10.2); NEUT % 72.7 % (42.8-82.8); RBC 3.44 M/mm3 (4.00-5.60); RDW 15.4 % (11.9-15.9); WHITE BLOOD COUNT 9.3 K/mm3 (4.0-10.0)
[2019-12-30 06:57] LABS: ALBUMIN 1.8 g/dl (3.4-5.0); ALK PHOS 91 U/L (45-117); ANION GAP 10 MMOL/L (8-16); BILIRUBIN,TOTAL 0.7 mg/dL (0.2-1); BLOOD UREA NITROGEN 88.1 mg/dL (7-18); CALCIUM 7.4 mg/dL (8.5-10.1); CHLORIDE 105 mmol/L (98-107); CO2 24 mmol/L (21-32); CREATININE 2.1 mg/dL (0.55-1.3); GLUCOSE,RANDOM 92 mg/dL (74-106); MAGNESIUM 1.8 mg/dL (1.8-2.4); SGOT/AST 35 U/L (15-37); SODIUM 140 mmol/L (136-145); TOT PROT 5.4 g/dl (6.4-8.2)
[2019-12-30 07:01] LABS: SGPT/ALT < 6 U/L (13-61)
[2019-12-30] MEDS: INSULIN SLIDING SCALE (NOVOLOG) 1 VIAL SQ SCH ×2 (08:11→17:34)
[2019-12-30] MEDS ORDERED: PT OWN MED DRAWER 7, Y5N ONE ×2 (08:14→10:18)
[2019-12-30] MEDS: SEVELAMER CARBONATE 0.8 GM POWDER PACKET PO SCH ×5 (08:20→21:24)
[2019-12-30 09:21] LABS: MEAN PLT VOLUME 8.4 fl (7.5-11.1); PLATELET COUNT 127 K/MM3 (134-434)
[2019-12-30 09:22] LABS: PLATELET ESTIMATE DECREASED
[2019-12-30] MEDS: CEFAZOLIN 500 MG in DEXTROSE 5%-WATER - 50 ML IVPB SCH ×2 (10:04→23:49)
[2019-12-30] MEDS: levETIRAcetam 500 MG/5 ML INJECTION VIAL IVPB SCH ×2 (10:10→22:55)
[2019-12-30] MEDS: FUROSEMIDE 40 MG/4 ML INJECTABLE VIAL IVPUSH SCH (10:10)
[2019-12-30] MEDS: PANTOPRAZOLE SODIUM 40 MG VIAL IVPUSH SCH (10:10)
[2019-12-30] MEDS: LEVOTHYROXINE SODIUM 100 MCG VIAL IVPUSH SCH (10:20)
--- NOTE | 2019-12-30 11:42 | PN ---
Progress Note, Physician History of Present Illness: Pt seen and examined at bedside. He remains in the ICU. He remains intubated. - Current Medication List Current Medications: Active Medications Artificial Tears (Artificial Tears) 1 drop OU BID PRN PRN Reason: DRY EYES Last Admin: 12/25/19 15:46 Dose: 1 drop Documented by: Furosemide (Lasix Injection -) 40 mg IVPUSH DAILY [facility] Last Admin: 12/30/19 10:10 Dose: 40 mg Documented by: Cefazolin Sodium 500 mg/ (Dextrose) 50 mls @ 100 mls/hr IVPB BID [facility] Last Admin: 12/30/19 10:04 Dose: 100 mls/hr Documented by: Insulin Aspart (Novolog Vial Sliding Scale -) 1 vial SQ BIDI [facility]; Protocol Last Admin: 12/30/19 08:11 Dose: Not Given Documented by: Levetiracetam (Keppra Injection -) 500 mg IVPB BID [facility] Last Admin: 12/30/19 10:10 Dose: 500 mg Documented by: Levothyroxine Sodium (Synthroid Injection -) 20 mcg IVPUSH DAILY [facility] Last Admin: 12/30/19 10:20 Dose: 20 mcg Documented by: Lorazepam (Ativan Injection -) 1 mg IVPUSH Q6H PRN PRN Reason: AGITATION Last Admin: 12/29/19 15:24 Dose: 1 mg Documented by: Morphine Sulfate (Morphine Sulfate) 4 mg IVPUSH Q4H PRN PRN Reason: PAIN LEVEL 6-10 Last Admin: 12/30/19 10:20 Dose: 4 mg Documented by: Pantoprazole Sodium (Protonix Iv) 40 mg IVPUSH DAILY [facility] Last Admin: 12/30/19 10:10 Dose: 40 mg Documented by: Rosuvastatin Calcium (Crestor -) 10 mg PO HS [facility] Last Admin: 12/29/19 21:29 Dose: 10 mg Documented by: Scopolamine HBr (Transderm-Scop -) 1 patch TD Q72H [facility] Last Admin: 12/28/19 15:38 Dose: 1 patch Documented by: Sevelamer Carbonate (Renvela Powder Packet -) 0.8 gm PO TIDCM [facility] Last Admin: 12/30/19 08:40 Dose: Not Given Documented by: Silver Sulfadiazine (Silvadene -) 1 applic TP BID [facility] Last Admin: 12/29/19 21:29 Dose: 1 applic Documented by: - Objective Vital Signs: Vital Signs Temperature 98.9 F 12/30/19 10:30 Pulse Rate 112 H 12/30/19 10:00 Respiratory Rate 24 H 12/30/19 10:00 Blood Pressure 185/82 H 12/30/19 10:00 O2 Sat by Pulse Oximetry (%) 97 12/30/19 10:00 Constitutional: Yes: Calm Eyes: Yes: Conjunctiva Clear HENT: Yes: Atraumatic Neck: Yes: Supple Cardiovascular: Yes: S1, S2 Respiratory: Yes: Other (trache) Genitourinary: Yes: [place] Present Musculoskeletal: Yes: Muscle Weakness Edema: Yes Edema: LLE: 1+, RLE: 1+ Integumentary: Yes: Other (bullous pemphigoid) Neurological: Yes: Lethargy Labs: CBC, BMP 12/30/19 05:30 12/30/19 05:30 INR, PTT INR 1.14 (0.83-1.09) H 12/26/19 08:05 Problem List - Problems (1) Acute respiratory failure Code(s): J96.00 - ACUTE RESPIRATORY FAILURE, UNSP W HYPOXIA OR HYPERCAPNIA (2) Bullous pemphigoid Code(s): L12.0 - BULLOUS PEMPHIGOID Assessment/Plan Current Medications Generic Name Dose Route Start Last Admin Trade Name Freq PRN Reason Stop Dose Admin Artificial Tears 1 drop 12/15/19 07:31 12/25/19 15:46 Artificial Tears OU 1 drop BID PRN Administration DRY EYES Furosemide 40 mg 12/27/19 11:45 12/30/19 10:10 Lasix Injection - IVPUSH 40 mg DAILY [facility] Administration Cefazolin Sodium 500 mg/ 50 mls @ 100 mls/hr 12/12/19 12:45 12/30/19 10:04 Dextrose IVPB 100 mls/hr BID [facility] Administration Insulin Aspart 1 vial 12/28/19 16:30 12/30/19 08:11 Novolog Vial Sliding Scale - SQ Not Given BIDI [facility] Protocol Levetiracetam 500 mg 12/09/19 10:00 12/30/19 10:10 Keppra Injection - IVPB 500 mg BID [facility] Administration Levothyroxine Sodium 20 mcg 12/09/19 10:00 12/30/19 10:20 Synthroid Injection - IVPUSH 20 mcg DAILY [facility] Administration Lorazepam 1 mg 12/29/19 10:30 12/29/19 15:24 Ativan Injection - IVPUSH 1 mg Q6H PRN Administration AGITATION Morphine Sulfate 4 mg 12/29/19 10:30 12/30/19 10:20 Morphine Sulfate IVPUSH 4 mg Q4H PRN Administration PAIN LEVEL 6-10 Pantoprazole Sodium 40 mg 12/09/19 10:00 12/30/19 10:10 Protonix Iv IVPUSH 40 mg DAILY [facility] Administration Rosuvastatin Calcium 10 mg 12/07/19 22:00 12/29/19 21:29 Crestor - PO 10 mg HS [facility]EL Administration Scopolamine HBr 1 patch 12/25/19 14:15 12/28/19 15:38 Transderm-Scop - TD 1 patch Q72H [facility]EL Administration Sevelamer Carbonate 0.8 gm 12/16/19 17:30 12/30/19 08:40 Renvela Powder Packet - PO Not Given TIDCM [facility]EL Silver Sulfadiazine 1 applic 12/15/19 12:45 12/29/19 21:29 Silvadene - TP 1 applic BID [facility]EL Administration Impression 1. CKD 2. CHF 3. BPH 4. a. fib 5. CAD 6. epilepsy 7. proteinuria 8. anemia 9. foot ulcer 10. abd wall cellulitis 11. bullous pemphigoid 12. LETITIA 13. hyperkalemia 14. cardiac arrest 15. resp failure on vent 16. r/o aspiration Plan - renal function slowly stabilizing - cont vent support - count wound care - monitor lytes - repeat labs in am - cont cellcept for bullous pemphigoid - letitia on ckd likely atn post cardiac arrest
--- NOTE | 2019-12-30 11:45 | PN ---
Progress Note, Physician History of Present Illness: POORLY RESPONSIVE ON VENTILATOR AFEBRILE WBC WNL AZOTEMIA IMPROVED PLT COUNT LOWER BC MSSA (12/06) BC (12/07) NO GROWTH - Current Medication List Current Medications: Active Medications Artificial Tears (Artificial Tears) 1 drop OU BID PRN PRN Reason: DRY EYES Last Admin: 12/25/19 15:46 Dose: 1 drop Documented by: Furosemide (Lasix Injection -) 40 mg IVPUSH DAILY [facility] Last Admin: 12/30/19 10:10 Dose: 40 mg Documented by: Cefazolin Sodium 500 mg/ (Dextrose) 50 mls @ 100 mls/hr IVPB BID [facility] Last Admin: 12/30/19 10:04 Dose: 100 mls/hr Documented by: Insulin Aspart (Novolog Vial Sliding Scale -) 1 vial SQ BIDI [facility]; Protocol Last Admin: 12/30/19 08:11 Dose: Not Given Documented by: Levetiracetam (Keppra Injection -) 500 mg IVPB BID [facility] Last Admin: 12/30/19 10:10 Dose: 500 mg Documented by: Levothyroxine Sodium (Synthroid Injection -) 20 mcg IVPUSH DAILY [facility] Last Admin: 12/30/19 10:20 Dose: 20 mcg Documented by: Lorazepam (Ativan Injection -) 1 mg IVPUSH Q6H PRN PRN Reason: AGITATION Last Admin: 12/29/19 15:24 Dose: 1 mg Documented by: Morphine Sulfate (Morphine Sulfate) 4 mg IVPUSH Q4H PRN PRN Reason: PAIN LEVEL 6-10 Last Admin: 12/30/19 10:20 Dose: 4 mg Documented by: Pantoprazole Sodium (Protonix Iv) 40 mg IVPUSH DAILY [facility] Last Admin: 12/30/19 10:10 Dose: 40 mg Documented by: Rosuvastatin Calcium (Crestor -) 10 mg PO HS [facility] Last Admin: 12/29/19 21:29 Dose: 10 mg Documented by: Scopolamine HBr (Transderm-Scop -) 1 patch TD Q72H [facility] Last Admin: 12/28/19 15:38 Dose: 1 patch Documented by: Sevelamer Carbonate (Renvela Powder Packet -) 0.8 gm PO TIDCM [facility] Last Admin: 12/30/19 08:40 Dose: Not Given Documented by: Silver Sulfadiazine (Silvadene -) 1 applic TP BID [facility] Last Admin: 12/29/19 21:29 Dose: 1 applic Documented by: - Objective Vital Signs: Vital Signs Temperature 98.9 F 12/30/19 10:30 Pulse Rate 112 H 12/30/19 10:00 Respiratory Rate 24 H 12/30/19 10:00 Blood Pressure 185/82 H 12/30/19 10:00 O2 Sat by Pulse Oximetry (%) 97 12/30/19 10:00 Constitutional: Yes: No Distress Eyes: Yes: Conjunctiva Clear Cardiovascular: Yes: Regular Rate and Rhythm, S1, S2 Respiratory: Yes: Mechanically Ventilated Gastrointestinal: Yes: Normal Bowel Sounds, Soft Edema: Yes Integumentary: Yes: Other (DISSEMINATED ULCERATIVE LESIONS, DRY) Labs: CBC, BMP 12/30/19 05:30 12/30/19 05:30 INR, PTT INR 1.14 (0.83-1.09) H 12/26/19 08:05 Assessment/Plan + BLOOD C/S MSSA PROBABLE SKIN SOURCE ACUTE RESP FAILURE PNEUMOMIA AZOTEMIA PLANTAR ULCER HEALED BULOUS PEMPHIGOID CEFAZOLIN DAY #23 REPEAT BC NO GROWTH ECHO NO VEGETATIONS VENTILATORY/ HEMODYNAMIC SUPPORT PROGNOSIS POOR
[2019-12-30] MEDS: SILVER SULFADIAZINE 1% TOP CREAM 50 GM JAR TP SCH ×2 (12:05→23:49)
--- NOTE | 2019-12-30 12:34 | PN ---
Physical Exam: SUBJECTIVE: Patient seen and examined. Pt was off sedation. Shook head upon evaluation. Did not follow commands. OBJECTIVE: Vital Signs Period Temp Pulse Resp BP Sys/Hair Pulse Ox Last 24 Hr 98 F-99.1 F 86-112 17-26 124-185/69-93 96-100 GENERAL: The patient is awake, not following commands. HEENT: NCAT, ETT in place. NG tube in place. LUNGS: Breath sounds equal, clear to auscultation bilaterally HEART: Regular rate and rhythm, S1, S2 without murmur ABDOMEN: Soft, nontender, nondistended, normoactive bowel sounds, no guarding, no rebound, no hepatosplenomegaly, no masses. EXTREMITIES: 2+ pulses, warm, well-perfused, no edema. NEUROLOGICAL: Cranial nerves II through XII grossly intact. Normal speech, gait not observed. PSYCH: Normal mood, normal affect. SKIN: Warm, dry, normal turgor, no rashes or lesions noted Active Medications ASSESSMENT/PLAN: ATTENDING PHYSICIAN STATEMENT I saw and evaluated the patient. I reviewed the resident's note and discussed the case with the resident. I agree with the resident's findings and plan as documented. SUBJECTIVE: OBJECTIVE: ASSESSMENT AND PLAN:
--- NOTE | 2019-12-30 12:49 | PN ---
Progress Note (short form) - Note Progress Note: Transfer note: Subjective: Pt was seen in the ICU. Pt was off sedation, shaking his head during examination. However, did not follow commands. No acute overnight events. Objective Last Vital Signs Temp Pulse Resp BP Pulse Ox 98.9 F 104 H 20 175/88 H 97 12/30/19 10:30 12/30/19 12:00 12/30/19 12:00 12/30/19 12:00 12/30/19 10:00 Physical exam General: Pt lying in bed, not following commands. Is mildly anxious. HEENT: NCAT. ETT in place. NG tube in place. Cardio: +S1/S2, regular rate and rhythm, no murmurs Pulmonary: CTA b/l, no wheezes. GI: bowel sounds present in all 4 quadrants. Soft, nondistended. Extremities: No edema, warm, well-perfused. Skin: Multiple lesions in various stages of healing. Assessment/Plan: 79 y/o male PMH dCHF, afib, CAD s/p PCI, HTN, seizure d/o, CVA with right sided residual deficit, CKD, hypothyroidism, and bullous pemphigoid. He was s/p cardiopulmonary arrest (on 12/09/2019) and possible aspiration pneumonia. Admitted to ICU for acute hypoxic respiratory failure. He was anemic on 12/19 with Hb of 6.3 and received 3 U pRBCs. Hb has since stabilized and has not required further transfusions. Pt is mechanically ventilated and was weaned off sedation. Tracheostomy placed on 12/25. Ventilator settings are 16/450/40%/5. Pt intermittently follows commands. Pt is hemodynamically stable and is medically optimized for transfer to vent/trach floor. Problem list: #Neuro Seizure disorder -Keppra # Card: Afib diastolic CHF CAD HTN Anemia - Hb 10.2; Continue to monitor - On rosuvastatin # Pulm ARDS, aspiration PNA -Mechanically ventilated. Wean as tolerated -Tracheostomy on 12/25. -On albuterol-ipratropium -Vent settings: 16/450/40%/5 # ID - Repeat blood cultures negative - c/w Cefazolin (12/11) -ID consulted. 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 Contact isolation resistant organisms. #GI -Awaiting Peg placement # Renal - continuing improvement of LETITIA on CKD (s/p cardiac arrest) - Continue monitoring I/O, BUN, Cr - Nephrology consulted. Recommended continue with lasix. - On Renvela #Endo DM -ISS + BGM -On synthroid # Skin - Silvadene #Lines, tubes, drains: 12/08 - ETT 12/27 - L midline # Prophylaxis: - DVT: Hold eliquis; SCDs - GI: Protonix # Code Status / Family Conversation: - Full Code - Dr. Branch of palliative care consulted. Will f/u recommendations. (Mandy): [phone] Son (Cj): [phone] #Dispo-transfer to [facility]/trach floor
--- NOTE | 2019-12-30 12:55 | PN ---
Physical Exam: SUBJECTIVE: Patient seen and examined. Pt was off sedation, shaking his head during examination. However, did not follow commands. No acute overnight events. OBJECTIVE: Vital Signs Period Temp Pulse Resp BP Sys/Hair Pulse Ox Last 24 Hr 98 F-99.1 F 86-112 17-26 124-185/69-93 96-100 General: Pt lying in bed, not following commands. Is mildly anxious. HEENT: NCAT. ETT in place. NG tube in place. Cardio: +S1/S2, regular rate and rhythm, no murmurs Pulmonary: CTA b/l, no wheezes. GI: bowel sounds present in all 4 quadrants. Soft, nondistended. Extremities: No edema, warm, well-perfused. Skin: Multiple lesions in various stages of healing. Laboratory Last Values WBC 9.3 K/mm3 (4.0-10.0) 12/30/19 05:30 RBC 3.44 M/mm3 (4.00-5.60) L 12/30/19 05:30 Hgb 10.2 GM/dL (11.7-16.9) L 12/30/19 05:30 Hct 31.0 % (35.4-49) L D 12/30/19 05:30 MCV 90.2 fl (80-96) 12/30/19 05:30 MCH 29.8 pg (25.7-33.7) 12/30/19 05:30 MCHC 33.0 g/dl (32.0-35.9) 12/30/19 05:30 RDW 15.4 % (11.9-15.9) 12/30/19 05:30 Plt Count 127 K/MM3 (134-434) L D 12/30/19 05:30 MPV 8.4 fl (7.5-11.1) 12/30/19 05:30 Absolute Neuts (auto) 6.8 K/mm3 (1.5-8.0) 12/30/19 05:30 Neutrophils % 72.7 % (42.8-82.8) 12/30/19 05:30 Neutrophils % (Manual) 95.0 % (42.8-82.8) H 12/10/19 06:00 Band Neutrophils % 4.0 % 12/10/19 06:00 Lymphocytes % 14.8 % (8-40) 12/30/19 05:30 Lymphocytes % (Manual) 1.0 % (8-40) L D 12/10/19 06:00 Monocytes % 11.7 % (3.8-10.2) H 12/30/19 05:30 Monocytes % (Manual) 0 % (3.8-10.2) L 12/10/19 06:00 Eosinophils % 0.5 % (0-4.5) 12/30/19 05:30 Eosinophils % (Manual) 0.0 % (0-4.5) 12/10/19 06:00 Basophils % 0.3 % (0-2.0) 12/30/19 05:30 Basophils % (Manual) 0.0 % (0-2.0) 12/10/19 06:00 Myelocytes % (Man) 0 % (0-2) 12/10/19 06:00 Promyelocytes % (Man) 0 % (0-2) 12/10/19 06:00 Blast Cells % (Manual) 0 % (0-0) 12/10/19 06:00 Nucleated RBC % 0 % (0-0) 12/30/19 05:30 Metamyelocytes 0 % (0-2) 12/10/19 06:00 Hypochromia 1+ 12/10/19 06:00 Platelet Estimate Decreased 12/30/19 05:30 Platelet Comment No clumping noted 12/30/19 05:30 Polychromasia 0 12/10/19 06:00 Poikilocytosis 1+ 12/10/19 06:00 Anisocytosis 1+ 12/10/19 06:00 Microcytosis 1+ 12/10/19 06:00 Macrocytosis 1+ 12/10/19 06:00 Tear Drop Cells 1+ 12/07/19 19:10 Ovalocytes 1+ 12/10/19 06:00 [place] Cells 1+ 12/07/19 19:10 Rouleaux 1+ 12/09/19 08:15 Schistocytes 1+ 12/10/19 06:00 PT with INR 13.50 SEC (9.7-13.0) H 12/26/19 08:05 INR 1.14 (0.83-1.09) H 12/26/19 08:05 PTT (Actin FS) 28.5 SECONDS (25.2-36.5) 12/26/19 08:05 Anticoagulation Therapy No Result Required. 12/18/19 06:10 Puncture Site Right radial 12/18/19 06:10 Patient Temperature No Result Required. 12/18/19 06:10 ABG pH 7.418 (7.350-7.450) 12/18/19 06:10 ABG pCO2 39.60 mmHg (35-45) 12/18/19 06:10 ABG pO2 62.0 mmHg (80-100) L 12/18/19 06:10 ABG HCO3 25.0 mmol/L (22-27) 12/18/19 06:10 ABG O2 Sat (Measured) 92.2 mmHg (95-98) L 12/18/19 06:10 ABG O2 Content No Result Required. 12/18/19 06:10 ABG Base Excess 0.5 mmol/L (-2-2) 12/18/19 06:10 Ishan Test Positive 12/18/19 06:10 VBG pH 7.347 (7.310-7.410) 12/28/19 14:05 POC VBG pCO2 41.9 mmHg (38-52) 12/28/19 14:05 POC VBG pO2 38.0 mmHg (28-48) 12/28/19 14:05 VBG HCO3 22.5 mmol/L (23-29) L 12/28/19 14:05 VBG O2 Sat (Sreedhar) 69.2 % (70-80) L 12/28/19 14:05 VBG Base Excess -3.0 mmol/L (-2-2) L 12/28/19 14:05 Patient On Oxygen Yes 12/18/19 06:10 O2 Delivery Device Vent 12/18/19 06:10 Oxygen Flow Rate 40 12/18/19 06:10 Vent Mode A/c 12/18/19 06:10 Vent Rate 18 12/18/19 06:10 Mechanical Rate No Result Required. 12/18/19 06:10 PEEP 5.0 cmH2O 12/18/19 06:10 Pressure Support Vent 450 12/18/19 06:10 Sodium 140 mmol/L (136-145) 12/30/19 05:30 Potassium 4.0 mmol/L (3.5-5.1) 12/30/19 05:30 Chloride 105 mmol/L (98-107) 12/30/19 05:30 Carbon Dioxide 24 mmol/L (21-32) 12/30/19 05:30 Anion Gap 10 MMOL/L (8-16) 12/30/19 05:30 BUN 88.1 mg/dL (7-18) H 12/30/19 05:30 Creatinine 2.1 mg/dL (0.55-1.3) H 12/30/19 05:30 Est GFR (CKD-EPI)AfAm 33.21 12/30/19 05:30 Est GFR (CKD-EPI)NonAf 28.66 12/30/19 05:30 POC Glucometer 89 UNITS (80-120) 12/29/19 17:15 Random Glucose 92 mg/dL (74-106) 12/30/19 05:30 Lactic Acid 3.6 mmol/L (0.4-2.0) H* 12/09/19 08:15 Calcium 7.4 mg/dL (8.5-10.1) L 12/30/19 05:30 Phosphorus 4.0 mg/dL (2.5-4.9) 12/30/19 05:30 Magnesium 1.8 mg/dL (1.8-2.4) 12/30/19 05:30 Iron 180 ug/dL (50-175) H 12/04/19 06:55 TIBC 197 ug/dL (250-450) L 12/04/19 06:55 Iron Saturation 91 % (17.5-39) H 12/04/19 06:55 Unsaturated IBC 17 ug/dL (200-275) L 12/04/19 06:55 Ferritin 736.1 ng/ml (8-388) H 12/04/19 06:55 Total Bilirubin 0.7 mg/dL (0.2-1) 12/30/19 05:30 AST 35 U/L (15-37) 12/30/19 05:30 ALT < 6 U/L (13-61) L 12/30/19 05:30 Alkaline Phosphatase 91 U/L (45-117) 12/30/19 05:30 Creatine Kinase 38 U/L (26-308) 12/07/19 14:00 Troponin I < 0.02 ng/ml (0.00-0.05) 12/09/19 08:15 Total Protein 5.4 g/dl (6.4-8.2) L 12/30/19 05:30 Albumin 1.8 g/dl (3.4-5.0) L 12/30/19 05:30 Prolactin 287.0 ng/ml (4.0-15.2) H 12/09/19 08:15 Vancomycin Pre-Dose 14.8 ug/ml (5-10) H 12/10/19 10:33 COVID-19 (SHENG) Not detected (Not Detected) 12/08/19 22:30 Blood Type B POSITIVE 12/26/19 08:05 Antibody Screen Negative 12/26/19 08:05 Crossmatch See Detail 12/20/19 09:15 Active Medications Artificial Tears (Artificial Tears) 1 drop OU BID PRN PRN Reason: DRY EYES Last Admin: 12/25/19 15:46 Dose: 1 drop Documented by: Furosemide (Lasix Injection -) 40 mg IVPUSH DAILY [facility] Last Admin: 12/30/19 10:10 Dose: 40 mg Documented by: Cefazolin Sodium 500 mg/ (Dextrose) 50 mls @ 100 mls/hr IVPB BID [facility] Last Admin: 12/30/19 10:04 Dose: 100 mls/hr Documented by: Insulin Aspart (Novolog Vial Sliding Scale -) 1 vial SQ BIDI [facility]; Protocol Last Admin: 12/30/19 08:11 Dose: Not Given Documented by: Levetiracetam (Keppra Injection -) 500 mg IVPB BID [facility] Last Admin: 12/30/19 10:10 Dose: 500 mg Documented by: Levothyroxine Sodium (Synthroid Injection -) 20 mcg IVPUSH DAILY [facility] Last Admin: 12/30/19 10:20 Dose: 20 mcg Documented by: Lorazepam (Ativan Injection -) 1 mg IVPUSH Q6H PRN PRN Reason: AGITATION Last Admin: 12/29/19 15:24 Dose: 1 mg Documented by: Morphine Sulfate (Morphine Sulfate) 4 mg IVPUSH Q4H PRN PRN Reason: PAIN LEVEL 6-10 Last Admin: 12/30/19 10:20 Dose: 4 mg Documented by: Pantoprazole Sodium (Protonix Iv) 40 mg IVPUSH DAILY [facility] Last Admin: 12/30/19 10:10 Dose: 40 mg Documented by: Rosuvastatin Calcium (Crestor -) 10 mg PO HS [facility] Last Admin: 12/29/19 21:29 Dose: 10 mg Documented by: Scopolamine HBr (Transderm-Scop -) 1 patch TD Q72H COUNT [facility]CLUD[facility] Last Admin: 12/28/19 15:38 Dose: 1 patch Documented by: Sevelamer Carbonate (Renvela Powder Packet -) 0.8 gm PO TIDCM COUNT [facility]CLUD[facility] Last Admin: 12/30/19 12:02 Dose: Not Given Documented by: Silver Sulfadiazine (Silvadene -) 1 applic TP BID COUNT [facility]CLUD[facility] Last Admin: 12/30/19 12:05 Dose: Not Given Documented by: ASSESSMENT/PLAN: 79 y/o male PMH dCHF, afib, CAD s/p PCI, HTN, seizure d/o, CVA with right sided residual deficit, CKD, hypothyroidism, and bullous pemphigoid. He was s/p cardiopulmonary arrest (on 12/09/2019) and possible aspiration pneumonia. Admitted to ICU for acute hypoxic respiratory failure. He was anemic on 12/19 with Hb of 6.3 and received 3 U pRBCs. Hb has since stabilized and has not required further transfusions. Pt is mechanically ventilated and was weaned off sedation. Tracheostomy placed on 12/25. Ventilator settings are 16/450/40%/5. Pt intermittently follows commands. Pt is hemodynamically stable and is medically optimized for transfer to vent/trach floor. Problem list: #Neuro Seizure disorder -Keppra # Card: Afib diastolic CHF CAD HTN Anemia - Hb 10.2; Continue to monitor - On rosuvastatin # Pulm ARDS, aspiration PNA -Mechanically ventilated. Wean as tolerated -Tracheostomy on 12/25. -On albuterol-ipratropium -Vent settings: 16/450/40%/5 # ID - Repeat blood cultures negative. Sputum positive for pseudomonas, MRSA. - c/w Cefazolin (12/11) -ID consulted. 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 Contact isolation resistant organisms. #GI -Awaiting Peg placement # Renal - continuing improvement of LETITIA on CKD (s/p cardiac arrest) - Continue monitoring I/O, BUN, Cr - Nephrology consulted. Recommended continue with lasix. - On Renvela #Endo DM -ISS + BGM -On synthroid # Skin - Silvadene #Lines, tubes, drains: 12/08 - ETT 12/27 - L midline # Prophylaxis: - DVT: Hold eliquis; SCDs - GI: Protonix # Code Status / Family Conversation: - Full Code - Dr. Branch of palliative care consulted. Will f/u recommendations. (Mandy): [phone] Son Luz): [phone] #Dispo-transfer to [facility] floor Visit type - Emergency Visit Emergency Visit: Yes ED Registration Date: 12/03/19 Care time: The patient presented to the Emergency Department on the above date and was hospitalized for further evaluation of their emergent condition. - New Patient This patient is new to me today: No - Critical Care Critical Care patient: Yes Total Critical Care Time (in minutes): 37 Critical Care Statement: The care of this patient involved high complexity decision making to prevent further life threatening deterioration of the patient's condition and/or to evaluate & treat vital organ system(s) failure or risk of failure. ATTENDING PHYSICIAN STATEMENT I saw and evaluated the patient. I reviewed the resident's note and discussed the case with the resident. I agree with the resident's findings and plan as documented. SUBJECTIVE: OBJECTIVE: ASSESSMENT AND PLAN:
--- NOTE | 2019-12-30 14:26 | PN ---
Teaching Attending Note Name of Resident: Otilia Felipe ATTENDING PHYSICIAN STATEMENT I saw and evaluated the patient. I reviewed the resident's note and discussed the case with the resident. I agree with the resident's findings and plan as documented. SUBJECTIVE: Patient seen and examined in the ICU. Vented via Tracheostomy. Lethargic and not able to follow commands. No pressors. OBJECTIVE: Intake & Output 12/27/19 12/28/19 12/29/19 12/30/19 23:59 23:59 23:59 23:59 Intake Total 1311 3631 450 1190 Output Total 1700 1600 1650 600 Balance -389 2031 -1200 590 Weight 231 lb 14.08 oz 238 lb 11.2 oz 238 lb 11.2 oz Last Vital Signs Temp Pulse Resp BP Pulse Ox 98.9 F 104 H 22 H 188/77 H 97 12/30/19 10:30 12/30/19 14:00 12/30/19 14:00 12/30/19 14:00 12/30/19 10:00 Active Medications Artificial Tears (Artificial Tears) 1 drop OU BID PRN PRN Reason: DRY EYES Last Admin: 12/25/19 15:46 Dose: 1 drop Documented by: Furosemide (Lasix Injection -) 40 mg IVPUSH DAILY [facility] Last Admin: 12/30/19 10:10 Dose: 40 mg Documented by: Cefazolin Sodium 500 mg/ (Dextrose) 50 mls @ 100 mls/hr IVPB BID [facility] Last Admin: 12/30/19 10:04 Dose: 100 mls/hr Documented by: Insulin Aspart (Novolog Vial Sliding Scale -) 1 vial SQ BIDI [facility]; Protocol Last Admin: 12/30/19 08:11 Dose: Not Given Documented by: Levetiracetam (Keppra Injection -) 500 mg IVPB BID [facility] Last Admin: 12/30/19 10:10 Dose: 500 mg Documented by: Levothyroxine Sodium (Synthroid Injection -) 20 mcg IVPUSH DAILY [facility] Last Admin: 12/30/19 10:20 Dose: 20 mcg Documented by: Lorazepam (Ativan Injection -) 1 mg IVPUSH Q6H PRN PRN Reason: AGITATION Last Admin: 12/29/19 15:24 Dose: 1 mg Documented by: Morphine Sulfate (Morphine Sulfate) 4 mg IVPUSH Q4H PRN PRN Reason: PAIN LEVEL 6-10 Last Admin: 12/30/19 10:20 Dose: 4 mg Documented by: Pantoprazole Sodium (Protonix Iv) 40 mg IVPUSH DAILY [facility] Last Admin: 12/30/19 10:10 Dose: 40 mg Documented by: Rosuvastatin Calcium (Crestor -) 10 mg PO HS [facility] Last Admin: 12/29/19 21:29 Dose: 10 mg Documented by: Scopolamine HBr (Transderm-Scop -) 1 patch TD Q72H [facility] Last Admin: 12/28/19 15:38 Dose: 1 patch Documented by: Sevelamer Carbonate (Renvela Powder Packet -) 0.8 gm PO TIDCM [facility] Last Admin: 12/30/19 12:02 Dose: Not Given Documented by: Silver Sulfadiazine (Silvadene -) 1 applic TP BID [facility] Last Admin: 12/30/19 12:05 Dose: Not Given Documented by: Gen: Vented, sedated Heart: RRR Lung; Vented, scattered rhonchi Abd: soft, nontender Ext: + edema Laboratory Results - last 24 hr 12/29/19 12/30/19 12/30/19 17:15 05:30 05:30 WBC 9.3 RBC 3.44 L Hgb 10.2 L Hct 31.0 L D MCV 90.2 MCH 29.8 MCHC 33.0 RDW 15.4 Plt Count 127 L D MPV 8.4 Absolute Neuts (auto) 6.8 Neutrophils % 72.7 Lymphocytes % 14.8 Monocytes % 11.7 H Eosinophils % 0.5 Basophils % 0.3 Nucleated RBC % 0 Platelet Estimate Decreased Platelet Comment No clumping noted Sodium 140 Potassium 4.0 Chloride 105 Carbon Dioxide 24 Anion Gap 10 BUN 88.1 H Creatinine 2.1 H Est GFR (CKD-EPI)AfAm 33.21 Est GFR (CKD-EPI)NonAf 28.66 POC Glucometer 89 Random Glucose 92 Calcium 7.4 L Phosphorus 4.0 Magnesium 1.8 Total Bilirubin 0.7 AST 35 ALT < 6 L Alkaline Phosphatase 91 Total Protein 5.4 L Albumin 1.8 L Problem List - Problems (1) Bullous pemphigoid Code(s): L12.0 - BULLOUS PEMPHIGOID (2) Generalized weakness Code(s): R53.1 - WEAKNESS (3) Unable to ambulate Code(s): R26.2 - DIFFICULTY IN WALKING, NOT ELSEWHERE CLASSIFIED (4) Blisters of multiple sites Code(s): R23.8 - OTHER SKIN CHANGES (5) Abnormal liver enzymes Code(s): R74.8 - ABNORMAL LEVELS OF OTHER SERUM ENZYMES (6) Wound of foot Code(s): S91.309A - UNSPECIFIED OPEN WOUND, UNSPECIFIED FOOT, INITIAL ENCOUNTER (7) Afib Code(s): I48.91 - UNSPECIFIED ATRIAL FIBRILLATION (8) Anemia Code(s): D64.9 - ANEMIA, UNSPECIFIED Qualifiers: Iron deficiency anemia type: chronic blood loss (9) BPH (benign prostatic hyperplasia) Code(s): N40.0 - BENIGN PROSTATIC HYPERPLASIA WITHOUT LOWER URINRY TRACT SYMP (10) CAD (coronary artery disease) Code(s): I25.10 - ATHSCL HEART DISEASE OF [place] CORONARY ARTERY W/O ANG PCTRS (11) CHF (congestive heart failure) Code(s): I50.9 - HEART FAILURE, UNSPECIFIED (12) CKD (chronic kidney disease) Code(s): N18.9 - CHRONIC KIDNEY DISEASE, UNSPECIFIED (13) Diabetes mellitus Code(s): E11.9 - TYPE 2 DIABETES MELLITUS WITHOUT COMPLICATIONS (14) Diastolic CHF Code(s): I50.30 - UNSPECIFIED DIASTOLIC (CONGESTIVE) HEART FAILURE (15) Gastritis Code(s): K29.70 - GASTRITIS, UNSPECIFIED, WITHOUT BLEEDING (16) HTN (hypertension) Code(s): I10 - ESSENTIAL (PRIMARY) HYPERTENSION (17) History of colon cancer Code(s): Z85.038 - PERSONAL HISTORY OF MALIGNANT NEOPLASM OF LARGE INTESTINE (18) History of duodenal ulcer Code(s): Z87.19 - PERSONAL HISTORY OF OTHER DISEASES OF THE DIGESTIVE SYSTEM (19) Hyperlipidemia Code(s): E78.5 - HYPERLIPIDEMIA, UNSPECIFIED (20) Hypothyroid Code(s): E03.9 - HYPOTHYROIDISM, UNSPECIFIED (21) Paroxysmal atrial fibrillation Code(s): I48.0 - PAROXYSMAL ATRIAL FIBRILLATION (22) Peripheral arterial disease Code(s): I73.9 - PERIPHERAL VASCULAR DISEASE, UNSPECIFIED (23) Peripheral vascular disease Code(s): I73.9 - PERIPHERAL VASCULAR DISEASE, UNSPECIFIED (24) Pulmonary hypertension Code(s): I27.2 - OTHER SECONDARY PULMONARY HYPERTENSION * DO NOT USE * (25) Seizure Code(s): R56.9 - UNSPECIFIED CONVULSIONS (26) Seizure disorder Code(s): G40.909 - EPILEPSY, UNSP, NOT INTRACTABLE, WITHOUT STATUS EPILEPTICUS ASSESSMENT AND PLAN: s/p Cardiopulmonary Arrest Acute Hypoxic and Hypercapneic Respiratory Failure Likely Aspiration Pneumonia Septic Shock Acute on Chronic Renal Failure Lactic Acidosis Bullous Pemphigoid CAD LV Diastolic Dysfunction Atrial Fibrillation Seizure Disorder h/o CVA Hypothyroidism Anemia Thrombocytopenia - ABX - monitor H/H - monitor urine output, creatinine - rate control - PRN MS & Ativan - continue volume assist control : Not ready for wean trials - enteral feeds : Will need PEG - DVT/GI prophylaxis - Lasix - Vent floor monitoring Dr Contreras Problem List - Problems (1) Bullous pemphigoid Code(s): L12.0 - BULLOUS PEMPHIGOID (2) Generalized weakness Code(s): R53.1 - WEAKNESS (3) Unable to ambulate Code(s): R26.2 - DIFFICULTY IN WALKING, NOT ELSEWHERE CLASSIFIED (4) Blisters of multiple sites Code(s): R23.8 - OTHER SKIN CHANGES (5) Abnormal liver enzymes Code(s): R74.8 - ABNORMAL LEVELS OF OTHER SERUM ENZYMES (6) Wound of foot Code(s): S91.309A - UNSPECIFIED OPEN WOUND, UNSPECIFIED FOOT, INITIAL ENCOUNTER (7) Afib Code(s): I48.91 - UNSPECIFIED ATRIAL FIBRILLATION (8) Anemia Code(s): D64.9 - ANEMIA, UNSPECIFIED Qualifiers: Iron deficiency anemia type: chronic blood loss (9) BPH (benign prostatic hyperplasia) Code(s): N40.0 - BENIGN PROSTATIC HYPERPLASIA WITHOUT LOWER URINRY TRACT SYMP (10) CAD (coronary artery disease) Code(s): I25.10 - ATHSCL HEART DISEASE OF [place] CORONARY ARTERY W/O ANG PCTRS (11) CHF (congestive heart failure) Code(s): I50.9 - HEART FAILURE, UNSPECIFIED (12) CKD (chronic kidney disease) Code(s): N18.9 - CHRONIC KIDNEY DISEASE, UNSPECIFIED (13) Diabetes mellitus Code(s): E11.9 - TYPE 2 DIABETES MELLITUS WITHOUT COMPLICATIONS (14) Diastolic CHF Code(s): I50.30 - UNSPECIFIED DIASTOLIC (CONGESTIVE) HEART FAILURE (15) Gastritis Code(s): K29.70 - GASTRITIS, UNSPECIFIED, WITHOUT BLEEDING (16) HTN (hypertension) Code(s): I10 - ESSENTIAL (PRIMARY) HYPERTENSION (17) History of colon cancer Code(s): Z85.038 - PERSONAL HISTORY OF MALIGNANT NEOPLASM OF LARGE INTESTINE (18) History of duodenal ulcer Code(s): Z87.19 - PERSONAL HISTORY OF OTHER DISEASES OF THE DIGESTIVE SYSTEM (19) Hyperlipidemia Code(s): E78.5 - HYPERLIPIDEMIA, UNSPECIFIED (20) Hypothyroid Code(s): E03.9 - HYPOTHYROIDISM, UNSPECIFIED (21) Paroxysmal atrial fibrillation Code(s): I48.0 - PAROXYSMAL ATRIAL FIBRILLATION (22) Peripheral arterial disease Code(s): I73.9 - PERIPHERAL VASCULAR DISEASE, UNSPECIFIED (23) Peripheral vascular disease Code(s): I73.9 - PERIPHERAL VASCULAR DISEASE, UNSPECIFIED (24) Pulmonary hypertension Code(s): I27.2 - OTHER SECONDARY PULMONARY HYPERTENSION * DO NOT USE * (25) Seizure Code(s): R56.9 - UNSPECIFIED CONVULSIONS (26) Seizure disorder Code(s): G40.909 - EPILEPSY, UNSP, NOT INTRACTABLE, WITHOUT STATUS EPILEPTICUS
[2019-12-30] MEDS ORDERED: morphine SULFATE 4 MG/ML VIAL IVPUSH PRN (14:58)
[2019-12-30] MEDS ORDERED: ARTIFICIAL TEARS (POLYVINYL ALCOHOL) OPTH DROPS OU PRN (14:58)
[2019-12-30] MEDS ORDERED: LORazepam 2 MG/ML SDV VIAL IVPUSH PRN (14:58)
[2019-12-30] MEDS ORDERED: SCOPOLAMINE HYDROBROMIDE 1 PATCH PATCH.TD72 TD SCH (15:45)
--- NOTE | 2019-12-30 17:36 | PN ---
Progress Note, Physician Chief Complaint: s/p Cardiopulmonary Arrest Acute Hypoxic and Hypercapneic Respiratory Failure Likely Aspiration Pneumonia Septic Shock Acute on Chronic Renal Failure Lactic Acidosis Bullous Pemphigoid CAD LV Diastolic Dysfunction Atrial Fibrillation Seizure Disorder h/o CVA Hypothyroidism Anemia Thrombocytopenia History of Present Illness: s/p trach opens his eyes, nodding his head NGT clogged and taken out, needs a PEG - Current Medication List Current Medications: Active Medications Amino Acids (Prosource No Carb Liquid Pkt) 30 ml PO DAILY [facility] Artificial Tears (Artificial Tears) 1 drop OU BID PRN PRN Reason: DRY EYES Furosemide (Lasix Injection -) 40 mg IVPUSH DAILY [facility] Cefazolin Sodium 500 mg/ (Dextrose) 50 mls @ 100 mls/hr IVPB BID [facility] Insulin Aspart (Novolog Vial Sliding Scale -) 1 vial SQ BIDI [facility]; Protocol Levetiracetam (Keppra Injection -) 500 mg IVPB BID [facility] Levothyroxine Sodium (Synthroid Injection -) 20 mcg IVPUSH DAILY [facility] Lorazepam (Ativan Injection -) 1 mg IVPUSH Q6H PRN PRN Reason: AGITATION Morphine Sulfate (Morphine Sulfate) 4 mg IVPUSH Q4H PRN PRN Reason: PAIN LEVEL 6-10 Pantoprazole Sodium (Protonix Iv) 40 mg IVPUSH DAILY [facility] Rosuvastatin Calcium (Crestor -) 10 mg PO HS [facility] Scopolamine HBr (Transderm-Scop -) 1 patch TD Q72H [facility] Sevelamer Carbonate (Renvela Powder Packet -) 0.8 gm PO TIDCM [facility] Silver Sulfadiazine (Silvadene -) 1 applic TP BID [facility] - Objective Vital Signs: Vital Signs Temperature 98.9 F 12/30/19 10:30 Pulse Rate 104 H 12/30/19 14:00 Respiratory Rate 28 H 12/30/19 15:29 Blood Pressure 188/77 H 12/30/19 14:00 O2 Sat by Pulse Oximetry (%) 97 12/30/19 10:00 Constitutional: Yes: Well Nourished, No Distress, Calm Cardiovascular: Yes: Regular Rate and Rhythm Respiratory: Yes: Regular, Mechanically Ventilated Gastrointestinal: Yes: Normal Bowel Sounds, Soft Genitourinary: Yes: [place] Present Musculoskeletal: Yes: Muscle Weakness Edema: No Peripheral Pulses WNL: Yes Integumentary: Yes: Other (Generalized bleeding blisters) Neurological: Yes: Alert Labs: CBC, BMP 12/30/19 05:30 12/30/19 05:30 INR, PTT INR 1.14 (0.83-1.09) H 12/26/19 08:05 Problem List - Problems (1) Acute respiratory failure Assessment/Plan: -Mech vent -Pulmonary consult -IV Cefazolin -Restart Enteral feeds after NGT is reinserted -IR consult for PEG insertion -Bronchodilators Problems reviewed: Yes Code(s): J96.00 - ACUTE RESPIRATORY FAILURE, UNSP W HYPOXIA OR HYPERCAPNIA (2) Bullous pemphigoid Assessment/Plan: -Cellcept discontinued 07/20 to GI bleed -Silvadene top Problems reviewed: Yes Code(s): L12.0 - BULLOUS PEMPHIGOID (3) Acute on chronic renal insufficiency Assessment/Plan: -Nephrology on board -monitor daily labs Problems reviewed: Yes Code(s): N28.9 - DISORDER OF KIDNEY AND URETER, UNSPECIFIED; N18.9 - CHRONIC KIDNEY DISEASE, UNSPECIFIED (4) Pneumonia Assessment/Plan: -Likely aspiration -CXR reviewed -COVID 19 PCR negative -IV abx -ID consult -Lactic acidosis noted Problems reviewed: Yes Code(s): J18.9 - PNEUMONIA, UNSPECIFIED ORGANISM (5) Afib Assessment/Plan: -Chronic, rate controlled -Eliquis Held due to acute GI bleed -Transfuse only if Hg <7.0 to avoid fluid overload Problems reviewed: Yes Code(s): I48.91 - UNSPECIFIED ATRIAL FIBRILLATION (6) Anemia Assessment/Plan: -Chronic -H/H stable at this time -workup last admission was negative -hematology consult -Transfuse only if hg<7.0 to avoid fluid overload. Problems reviewed: Yes Code(s): D64.9 - ANEMIA, UNSPECIFIED (7) Bacteremia Assessment/Plan: -Repeat BC negative -IV abx -ID on board -SC: Microbiology 12/23/19 22:30 Gram Stain - Final Sputum - Endotrachea Suction/Ventilator Sputum Culture - Final Providencia Stuartii Pseudomonas Aeruginosa Klebsiella Oxytoca Problems reviewed: Yes Code(s): R78.81 - BACTEREMIA Assessment/Plan See problem list GI PPX
[2019-12-30] MEDS ORDERED: DEXTROSE 50%-WATER - 25 GM/50 ML VIAL IVPUSH ONE (18:35)
[2019-12-30] MEDS: DEXTROSE 5%-NORMAL SALINE 1,000 ML IV SCH (20:31)
[2019-12-30] MEDS: ROSUVASTATIN CA 10 MG TABLET (FP) PO SCH (21:23)
[2019-12-31] MEDS: DEXTROSE 5%-NORMAL SALINE 1,000 ML IV SCH (01:45)
[2019-12-31] MEDS: INSULIN SLIDING SCALE (NOVOLOG) 1 VIAL SQ SCH (06:01)
[2019-12-31 08:19] LABS: BASO % 0.3 % (0-2.0); EOS % 0.9 % (0-4.5); HEMOGLOBIN 7.9 GM/dL (11.7-16.9); MCH 29.4 pg (25.7-33.7); MEAN CELL VOLUME 88.9 fl (80-96); MEAN PLT VOLUME 7.7 fl (7.5-11.1); MONO % 10.8 % (3.8-10.2); PLATELET COUNT 120 K/MM3 (134-434); RDW 15.5 % (11.9-15.9); WHITE BLOOD COUNT 4.8 K/mm3 (4.0-10.0)
[2019-12-31 08:48] LABS: ALBUMIN 1.8 g/dl (3.4-5.0); BILIRUBIN,TOTAL 0.6 mg/dL (0.2-1); CALCIUM 7.7 mg/dL (8.5-10.1); MAGNESIUM 1.8 mg/dL (1.8-2.4); PHOSPHOROUS 3.8 mg/dL (2.5-4.9); POTASSIUM 3.4 mmol/L (3.5-5.1); TOT PROT 5.3 g/dl (6.4-8.2)
[2019-12-31] MEDS ORDERED: PT OWN MED DRAWER 7, Y5N ONE ×4 (09:09→21:51)
[2019-12-31] MEDS: SEVELAMER CARBONATE 0.8 GM POWDER PACKET PO SCH ×3 (09:48→17:15)
--- NOTE | 2019-12-31 10:11 | PN ---
Progress Note, Physician Chief Complaint: s/p Cardiopulmonary Arrest Acute Hypoxic and Hypercapneic Respiratory Failure Likely Aspiration Pneumonia Septic Shock Acute on Chronic Renal Failure Lactic Acidosis Bullous Pemphigoid CAD LV Diastolic Dysfunction Atrial Fibrillation Seizure Disorder h/o CVA Hypothyroidism Anemia Thrombocytopenia History of Present Illness: s/p trach opens his eyes, nodding his head NGT clogged and taken out, needs a PEG Retried last evening with wrong positioning Were able to get NGT this AM, await confirmation through CXR Pt's midline is also clogged - Current Medication List Current Medications: Active Medications Amino Acids (Prosource No Carb Liquid Pkt) 30 ml PO DAILY [facility] Artificial Tears (Artificial Tears) 1 drop OU BID PRN PRN Reason: DRY EYES Furosemide (Lasix Injection -) 40 mg IVPUSH DAILY [facility] Cefazolin Sodium 500 mg/ (Dextrose) 50 mls @ 100 mls/hr IVPB BID [facility] Last Admin: 12/30/19 23:49 Dose: 100 mls/hr Documented by: Dextrose/Sodium Chloride (D5-Ns -) 1,000 mls @ 75 mls/hr IV ASDIR [facility] Last Admin: 12/31/19 01:45 Dose: 75 mls/hr Documented by: Insulin Aspart (Novolog Vial Sliding Scale -) 1 vial SQ BIDI [facility]; Protocol Last Admin: 12/31/19 06:01 Dose: Not Given Documented by: Levetiracetam (Keppra Injection -) 500 mg IVPB BID [facility] Last Admin: 12/30/19 22:55 Dose: 500 mg Documented by: Levothyroxine Sodium (Synthroid Injection -) 20 mcg IVPUSH DAILY [facility] Lorazepam (Ativan Injection -) 1 mg IVPUSH Q6H PRN PRN Reason: AGITATION Morphine Sulfate (Morphine Sulfate) 4 mg IVPUSH Q4H PRN PRN Reason: PAIN LEVEL 6-10 Pantoprazole Sodium (Protonix Iv) 40 mg IVPUSH DAILY [facility] Rosuvastatin Calcium (Crestor -) 10 mg PO HS [facility] Last Admin: 12/30/19 21:23 Dose: Not Given Documented by: Scopolamine HBr (Transderm-Scop -) 1 patch TD Q72H [facility] Last Admin: 12/30/19 17:51 Dose: 1 patch Documented by: Sevelamer Carbonate (Renvela Powder Packet -) 0.8 gm PO TIDCM [facility] Last Admin: 12/31/19 09:48 Dose: Not Given Documented by: Silver Sulfadiazine (Silvadene -) 1 applic TP BID [facility] Last Admin: 12/30/19 23:49 Dose: 1 applic Documented by: - Objective Vital Signs: Vital Signs Temperature 99.1 F 12/31/19 06:00 Pulse Rate 102 H 12/31/19 06:00 Respiratory Rate 18 12/31/19 09:17 Blood Pressure 153/89 12/31/19 06:00 O2 Sat by Pulse Oximetry (%) 98 12/31/19 09:17 Constitutional: Yes: Well Nourished, No Distress, Calm Cardiovascular: Yes: Regular Rate and Rhythm Respiratory: Yes: Regular, CTA Bilaterally Gastrointestinal: Yes: Normal Bowel Sounds Genitourinary: Yes: [place] Present Musculoskeletal: Yes: Muscle Weakness Edema: No Peripheral Pulses WNL: Yes Integumentary: Yes: Other (generalized bleeding blisters) Neurological: Yes: Alert Psychiatric: Yes: Alert Labs: CBC, BMP 12/31/19 05:40 12/31/19 05:40 INR, PTT INR 1.14 (0.83-1.09) H 12/26/19 08:05 Problem List - Problems (1) Acute respiratory failure Assessment/Plan: -Mech vent -Pulmonary consult -IV Cefazolin -Restart Enteral feeds after NGT is reinserted and confirmed -IR consult for PEG insertion -Bronchodilators Problems reviewed: Yes Code(s): J96.00 - ACUTE RESPIRATORY FAILURE, UNSP W HYPOXIA OR HYPERCAPNIA (2) Bullous pemphigoid Assessment/Plan: -Cellcept restarted -Silvadene top Problems reviewed: Yes Code(s): L12.0 - BULLOUS PEMPHIGOID (3) Acute on chronic renal insufficiency Assessment/Plan: -Nephrology on board -monitor daily labs Problems reviewed: Yes Code(s): N28.9 - DISORDER OF KIDNEY AND URETER, UNSPECIFIED; N18.9 - CHRONIC KIDNEY DISEASE, UNSPECIFIED (4) Pneumonia Assessment/Plan: -Likely aspiration -CXR reviewed -COVID 19 PCR negative -IV abx -ID consult -Lactic acidosis noted Problems reviewed: Yes Code(s): J18.9 - PNEUMONIA, UNSPECIFIED ORGANISM (5) Afib Assessment/Plan: -Chronic, rate controlled -Eliquis Held due to acute GI bleed -Transfuse only if Hg <7.0 to avoid fluid overload Problems reviewed: Yes Code(s): I48.91 - UNSPECIFIED ATRIAL FIBRILLATION (6) Anemia Assessment/Plan: -Chronic -H/H stable at this time -workup last admission was negative -hematology consult -Transfuse only if hg<7.0 to avoid fluid overload. Problems reviewed: Yes Code(s): D64.9 - ANEMIA, UNSPECIFIED (7) Bacteremia Assessment/Plan: -Repeat BC negative -IV abx -ID on board -SC: Microbiology 12/23/19 22:30 Gram Stain - Final Sputum - Endotrachea Suction/Ventilator Sputum Culture - Final Providencia Stuartii Pseudomonas Aeruginosa Klebsiella Oxytoca Problems reviewed: Yes Code(s): R78.81 - BACTEREMIA Assessment/Plan See problem list GI PPX Spoke to Mandy about pt status, PEG insertion, she is in agreement.
--- NOTE | 2019-12-31 11:40 | PN ---
Progress Note, Physician History of Present Illness: MORE AWAKE AND ALERT AFEBRILE WBC WNL AZOTEMIA IMPROVED PLT COUNT LOWER BC MSSA (12/06) BC (12/07) NO GROWTH - Current Medication List Current Medications: Active Medications Amino Acids (Prosource No Carb Liquid Pkt) 30 ml PO DAILY [facility] Artificial Tears (Artificial Tears) 1 drop OU BID PRN PRN Reason: DRY EYES Furosemide (Lasix Injection -) 40 mg IVPUSH DAILY [facility] Cefazolin Sodium 500 mg/ (Dextrose) 50 mls @ 100 mls/hr IVPB BID [facility] Last Admin: 12/30/19 23:49 Dose: 100 mls/hr Documented by: Dextrose/Sodium Chloride (D5-Ns -) 1,000 mls @ 75 mls/hr IV ASDIR [facility] Last Admin: 12/31/19 01:45 Dose: 75 mls/hr Documented by: Insulin Aspart (Novolog Vial Sliding Scale -) 1 vial SQ BIDI [facility]; Protocol Last Admin: 12/31/19 06:01 Dose: Not Given Documented by: Levetiracetam (Keppra Injection -) 500 mg IVPB BID [facility] Last Admin: 12/30/19 22:55 Dose: 500 mg Documented by: Levothyroxine Sodium (Synthroid Injection -) 20 mcg IVPUSH DAILY [facility] Lorazepam (Ativan Injection -) 1 mg IVPUSH Q6H PRN PRN Reason: AGITATION Morphine Sulfate (Morphine Sulfate) 4 mg IVPUSH Q4H PRN PRN Reason: PAIN LEVEL 6-10 Pantoprazole Sodium (Protonix Iv) 40 mg IVPUSH DAILY [facility] Rosuvastatin Calcium (Crestor -) 10 mg PO HS [facility] Last Admin: 12/30/19 21:23 Dose: Not Given Documented by: Scopolamine HBr (Transderm-Scop -) 1 patch TD Q72H [facility] Last Admin: 12/30/19 17:51 Dose: 1 patch Documented by: Sevelamer Carbonate (Renvela Powder Packet -) 0.8 gm PO TIDCM [facility] Last Admin: 12/31/19 09:48 Dose: Not Given Documented by: Silver Sulfadiazine (Silvadene -) 1 applic TP BID [facility] Last Admin: 12/30/19 23:49 Dose: 1 applic Documented by: - Objective Vital Signs: Vital Signs Temperature 99.1 F 12/31/19 06:00 Pulse Rate 102 H 12/31/19 06:00 Respiratory Rate 18 12/31/19 09:17 Blood Pressure 153/89 12/31/19 06:00 O2 Sat by Pulse Oximetry (%) 98 12/31/19 09:17 Constitutional: Yes: No Distress Eyes: Yes: Conjunctiva Clear Cardiovascular: Yes: Regular Rate and Rhythm, S1, S2 Respiratory: Yes: Diminished Gastrointestinal: Yes: Soft, Abdomen, Obese Edema: Yes Integumentary: Yes: Other (GENERALIZED ULCERATVE LESIONS) Labs: CBC, BMP 12/31/19 05:40 12/31/19 05:40 INR, PTT INR 1.14 (0.83-1.09) H 12/26/19 08:05 Assessment/Plan + BLOOD C/S MSSA PROBABLE SKIN SOURCE ACUTE RESP FAILURE PNEUMOMIA AZOTEMIA PLANTAR ULCER HEALED BULOUS PEMPHIGOID CEFAZOLIN DAY #24 REPEAT BC NO GROWTH ECHO NO VEGETATIONS VENTILATORY/ HEMODYNAMIC SUPPORT PROGNOSIS POOR
--- NOTE | 2019-12-31 11:50 | PN ---
Progress Note, Physician History of Present Illness: pulmonary alert,on vent support ac mode, comfortable - Current Medication List Current Medications: Active Medications Amino Acids (Prosource No Carb Liquid Pkt) 30 ml PO DAILY [facility] Artificial Tears (Artificial Tears) 1 drop OU BID PRN PRN Reason: DRY EYES Furosemide (Lasix Injection -) 40 mg IVPUSH DAILY [facility] Cefazolin Sodium 500 mg/ (Dextrose) 50 mls @ 100 mls/hr IVPB BID [facility] Last Admin: 12/30/19 23:49 Dose: 100 mls/hr Documented by: Dextrose/Sodium Chloride (D5-Ns -) 1,000 mls @ 75 mls/hr IV ASDIR [facility] Last Admin: 12/31/19 01:45 Dose: 75 mls/hr Documented by: Insulin Aspart (Novolog Vial Sliding Scale -) 1 vial SQ BIDI [facility]; Protocol Last Admin: 12/31/19 06:01 Dose: Not Given Documented by: Levetiracetam (Keppra Injection -) 500 mg IVPB BID [facility] Last Admin: 12/30/19 22:55 Dose: 500 mg Documented by: Levothyroxine Sodium (Synthroid Injection -) 20 mcg IVPUSH DAILY [facility] Lorazepam (Ativan Injection -) 1 mg IVPUSH Q6H PRN PRN Reason: AGITATION Morphine Sulfate (Morphine Sulfate) 4 mg IVPUSH Q4H PRN PRN Reason: PAIN LEVEL 6-10 Pantoprazole Sodium (Protonix Iv) 40 mg IVPUSH DAILY [facility] Rosuvastatin Calcium (Crestor -) 10 mg PO HS [facility] Last Admin: 12/30/19 21:23 Dose: Not Given Documented by: Scopolamine HBr (Transderm-Scop -) 1 patch TD Q72H [facility] Last Admin: 12/30/19 17:51 Dose: 1 patch Documented by: Sevelamer Carbonate (Renvela Powder Packet -) 0.8 gm PO TIDCM [facility] Last Admin: 12/31/19 09:48 Dose: Not Given Documented by: Silver Sulfadiazine (Silvadene -) 1 applic TP BID [facility] Last Admin: 12/30/19 23:49 Dose: 1 applic Documented by: - Objective Vital Signs: Vital Signs Temperature 99.1 F 12/31/19 06:00 Pulse Rate 102 H 12/31/19 06:00 Respiratory Rate 18 12/31/19 09:17 Blood Pressure 153/89 12/31/19 06:00 O2 Sat by Pulse Oximetry (%) 98 12/31/19 09:17 Constitutional: Yes: Well Nourished, Calm Eyes: Yes: WNL HENT: Yes: WNL Neck: Yes: Supple (trach) Cardiovascular: Yes: Pulse Irregular, S1, S2 Respiratory: Yes: Rhonchi (few scattered rhonchi) Gastrointestinal: Yes: Normal Bowel Sounds, Soft Extremities: Yes: WNL Edema: Yes Integumentary: Yes: Other (bullous pemphigoid) Labs: CBC, BMP 12/31/19 05:40 12/31/19 05:40 INR, PTT INR 1.14 (0.83-1.09) H 12/26/19 08:05 Assessment/Plan Problem List - Problems (1) Bullous pemphigoid Code(s): L12.0 - BULLOUS PEMPHIGOID (2) Generalized weakness Code(s): R53.1 - WEAKNESS (3) Unable to ambulate Code(s): R26.2 - DIFFICULTY IN WALKING, NOT ELSEWHERE CLASSIFIED (4) Blisters of multiple sites Code(s): R23.8 - OTHER SKIN CHANGES (5) Abnormal liver enzymes Code(s): R74.8 - ABNORMAL LEVELS OF OTHER SERUM ENZYMES (6) Wound of foot Code(s): S91.309A - UNSPECIFIED OPEN WOUND, UNSPECIFIED FOOT, INITIAL ENCOUNTER (7) Afib Code(s): I48.91 - UNSPECIFIED ATRIAL FIBRILLATION (8) Anemia Code(s): D64.9 - ANEMIA, UNSPECIFIED Qualifiers: Iron deficiency anemia type: chronic blood loss (9) BPH (benign prostatic hyperplasia) Code(s): N40.0 - BENIGN PROSTATIC HYPERPLASIA WITHOUT LOWER URINRY TRACT SYMP (10) CAD (coronary artery disease) Code(s): I25.10 - ATHSCL HEART DISEASE OF [place] CORONARY ARTERY W/O ANG PCTRS (11) CHF (congestive heart failure) Code(s): I50.9 - HEART FAILURE, UNSPECIFIED (12) CKD (chronic kidney disease) Code(s): N18.9 - CHRONIC KIDNEY DISEASE, UNSPECIFIED (13) Diabetes mellitus Code(s): E11.9 - TYPE 2 DIABETES MELLITUS WITHOUT COMPLICATIONS (14) Diastolic CHF Code(s): I50.30 - UNSPECIFIED DIASTOLIC (CONGESTIVE) HEART FAILURE (15) Gastritis Code(s): K29.70 - GASTRITIS, UNSPECIFIED, WITHOUT BLEEDING (16) HTN (hypertension) Code(s): I10 - ESSENTIAL (PRIMARY) HYPERTENSION (17) History of colon cancer Code(s): Z85.038 - PERSONAL HISTORY OF MALIGNANT NEOPLASM OF LARGE INTESTINE (18) History of duodenal ulcer Code(s): Z87.19 - PERSONAL HISTORY OF OTHER DISEASES OF THE DIGESTIVE SYSTEM (19) Hyperlipidemia Code(s): E78.5 - HYPERLIPIDEMIA, UNSPECIFIED (20) Hypothyroid Code(s): E03.9 - HYPOTHYROIDISM, UNSPECIFIED (21) Paroxysmal atrial fibrillation Code(s): I48.0 - PAROXYSMAL ATRIAL FIBRILLATION (22) Peripheral arterial disease Code(s): I73.9 - PERIPHERAL VASCULAR DISEASE, UNSPECIFIED (23) Peripheral vascular disease Code(s): I73.9 - PERIPHERAL VASCULAR DISEASE, UNSPECIFIED (24) Pulmonary hypertension Code(s): I27.2 - OTHER SECONDARY PULMONARY HYPERTENSION * DO NOT USE * (25) Seizure Code(s): R56.9 - UNSPECIFIED CONVULSIONS (26) Seizure disorder Code(s): G40.909 - EPILEPSY, UNSP, NOT INTRACTABLE, WITHOUT STATUS EPILEPTICUS ASSESSMENT AND PLAN: s/p Cardiopulmonary Arrest Acute Hypoxic and Hypercapneic Respiratory Failure Likely Aspiration Pneumonia S/P Septic Shock Acute on Chronic Renal Failure improving Lactic Acidosis Bullous Pemphigoid CAD LV Diastolic Dysfunction Atrial Fibrillation Seizure Disorder h/o CVA Hypothyroidism Anemia Thrombocytopenia - ABX - monitor H/H - monitor urine output, creatinine - rate control - PRN MS & Ativan - continue volume assist control : Not ready for wean trials - enteral feeds : Will need PEG - DVT/GI prophylaxis - Lou LAYTON Problem List - Problems (1) Bullous pemphigoid Code(s): L12.0 - BULLOUS PEMPHIGOID (2) Generalized weakness Code(s): R53.1 - WEAKNESS (3) Unable to ambulate Code(s): R26.2 - DIFFICULTY IN WALKING, NOT ELSEWHERE CLASSIFIED (4) Blisters of multiple sites Code(s): R23.8 - OTHER SKIN CHANGES (5) Abnormal liver enzymes Code(s): R74.8 - ABNORMAL LEVELS OF OTHER SERUM ENZYMES (6) Wound of foot Code(s): S91.309A - UNSPECIFIED OPEN WOUND, UNSPECIFIED FOOT, INITIAL ENCOUNTER (7) Afib Code(s): I48.91 - UNSPECIFIED ATRIAL FIBRILLATION (8) Anemia Code(s): D64.9 - ANEMIA, UNSPECIFIED Qualifiers: Iron deficiency anemia type: chronic blood loss (9) BPH (benign prostatic hyperplasia) Code(s): N40.0 - BENIGN PROSTATIC HYPERPLASIA WITHOUT LOWER URINRY TRACT SYMP (10) CAD (coronary artery disease) Code(s): I25.10 - ATHSCL HEART DISEASE OF [place] CORONARY ARTERY W/O ANG PCTRS (11) CHF (congestive heart failure) Code(s): I50.9 - HEART FAILURE, UNSPECIFIED (12) CKD (chronic kidney disease) Code(s): N18.9 - CHRONIC KIDNEY DISEASE, UNSPECIFIED (13) Diabetes mellitus Code(s): E11.9 - TYPE 2 DIABETES MELLITUS WITHOUT COMPLICATIONS (14) Diastolic CHF Code(s): I50.30 - UNSPECIFIED DIASTOLIC (CONGESTIVE) HEART FAILURE (15) Gastritis Code(s): K29.70 - GASTRITIS, UNSPECIFIED, WITHOUT BLEEDING (16) HTN (hypertension) Code(s): I10 - ESSENTIAL (PRIMARY) HYPERTENSION (17) History of colon cancer Code(s): Z85.038 - PERSONAL HISTORY OF MALIGNANT NEOPLASM OF LARGE INTESTINE (18) History of duodenal ulcer Code(s): Z87.19 - PERSONAL HISTORY OF OTHER DISEASES OF THE DIGESTIVE SYSTEM (19) Hyperlipidemia Code(s): E78.5 - HYPERLIPIDEMIA, UNSPECIFIED (20) Hypothyroid Code(s): E03.9 - HYPOTHYROIDISM, UNSPECIFIED (21) Paroxysmal atrial fibrillation Code(s): I48.0 - PAROXYSMAL ATRIAL FIBRILLATION (22) Peripheral arterial disease Code(s): I73.9 - PERIPHERAL VASCULAR DISEASE, UNSPECIFIED (23) Peripheral vascular disease Code(s): I73.9 - PERIPHERAL VASCULAR DISEASE, UNSPECIFIED (24) Pulmonary hypertension Code(s): I27.2 - OTHER SECONDARY PULMONARY HYPERTENSION * DO NOT USE * (25) Seizure Code(s): R56.9 - UNSPECIFIED CONVULSIONS (26) Seizure disorder Code(s): G40.909 - EPILEPSY, UNSP, NOT INTRACTABLE, WITHOUT STATUS EPILEPTICUS
--- NOTE | 2019-12-31 12:21 | PN ---
Progress Note, Physician History of Present Illness: Pt seen and examined at bedside. he is now in the medical fontaine. He is awake and responds to his name. - Current Medication List Current Medications: Active Medications Amino Acids (Prosource No Carb Liquid Pkt) 30 ml PO DAILY [facility] Artificial Tears (Artificial Tears) 1 drop OU BID PRN PRN Reason: DRY EYES Furosemide (Lasix Injection -) 40 mg IVPUSH DAILY [facility] Cefazolin Sodium 500 mg/ (Dextrose) 50 mls @ 100 mls/hr IVPB BID [facility] Last Admin: 12/30/19 23:49 Dose: 100 mls/hr Documented by: Dextrose/Sodium Chloride (D5-Ns -) 1,000 mls @ 75 mls/hr IV ASDIR [facility] Last Admin: 12/31/19 01:45 Dose: 75 mls/hr Documented by: Insulin Aspart (Novolog Vial Sliding Scale -) 1 vial SQ BIDI [facility]; Protocol Last Admin: 12/31/19 06:01 Dose: Not Given Documented by: Levetiracetam (Keppra Injection -) 500 mg IVPB BID [facility] Last Admin: 12/30/19 22:55 Dose: 500 mg Documented by: Levothyroxine Sodium (Synthroid Injection -) 20 mcg IVPUSH DAILY [facility] Lorazepam (Ativan Injection -) 1 mg IVPUSH Q6H PRN PRN Reason: AGITATION Morphine Sulfate (Morphine Sulfate) 4 mg IVPUSH Q4H PRN PRN Reason: PAIN LEVEL 6-10 Pantoprazole Sodium (Protonix Iv) 40 mg IVPUSH DAILY [facility] Rosuvastatin Calcium (Crestor -) 10 mg PO HS [facility] Last Admin: 12/30/19 21:23 Dose: Not Given Documented by: Scopolamine HBr (Transderm-Scop -) 1 patch TD Q72H [facility] Last Admin: 12/30/19 17:51 Dose: 1 patch Documented by: Sevelamer Carbonate (Renvela Powder Packet -) 0.8 gm PO TIDCM [facility] Last Admin: 12/31/19 09:48 Dose: Not Given Documented by: Silver Sulfadiazine (Silvadene -) 1 applic TP BID [facility] Last Admin: 12/30/19 23:49 Dose: 1 applic Documented by: - Objective Vital Signs: Vital Signs Temperature 99.8 F H 12/31/19 10:00 Pulse Rate 104 H 12/31/19 10:00 Respiratory Rate 25 H 12/31/19 10:00 Blood Pressure 163/92 12/31/19 10:00 O2 Sat by Pulse Oximetry (%) 99 12/31/19 10:00 Constitutional: Yes: Calm Eyes: Yes: Conjunctiva Clear HENT: Yes: Atraumatic Cardiovascular: Yes: S1, S2 Respiratory: Yes: Mechanically Ventilated Gastrointestinal: Yes: Soft Genitourinary: Yes: Incontinence Musculoskeletal: Yes: Muscle Weakness Edema: Yes Integumentary: Yes: Other (bullous pemphigoid) Neurological: Yes: Confusion Labs: CBC, BMP 12/31/19 05:40 12/31/19 05:40 INR, PTT INR 1.14 (0.83-1.09) H 12/26/19 08:05 Problem List - Problems (1) Acute respiratory failure Code(s): J96.00 - ACUTE RESPIRATORY FAILURE, UNSP W HYPOXIA OR HYPERCAPNIA (2) Bullous pemphigoid Code(s): L12.0 - BULLOUS PEMPHIGOID Assessment/Plan Current Medications Generic Name Dose Route Start Last Admin Trade Name Freq PRN Reason Stop Dose Admin Amino Acids 30 ml 12/31/19 10:00 Prosource No Carb Liquid Pkt PO DAILY [facility] Artificial Tears 1 drop 12/30/19 14:58 Artificial Tears OU BID PRN DRY EYES Furosemide 40 mg 12/31/19 10:00 Lasix Injection - IVPUSH DAILY [facility] Cefazolin Sodium 500 mg/ 50 mls @ 100 mls/hr 12/30/19 22:00 12/30/19 23:49 Dextrose IVPB 100 mls/hr BID [facility] Administration Dextrose/Sodium Chloride 1,000 mls @ 75 mls/hr 12/30/19 20:15 12/31/19 01:45 D5-Ns - IV 75 mls/hr ASDIR [facility] Administration Insulin Aspart 1 vial 12/30/19 16:30 12/31/19 06:01 Novolog Vial Sliding Scale - SQ Not Given BIDI [facility] Protocol Levetiracetam 500 mg 12/30/19 22:00 12/30/19 22:55 Keppra Injection - IVPB 500 mg BID [facility] Administration Levothyroxine Sodium 20 mcg 12/31/19 10:00 Synthroid Injection - IVPUSH DAILY [facility] Lorazepam 1 mg 12/30/19 14:58 Ativan Injection - IVPUSH Q6H PRN AGITATION Morphine Sulfate 4 mg 12/30/19 14:58 Morphine Sulfate IVPUSH Q4H PRN PAIN LEVEL 6-10 Pantoprazole Sodium 40 mg 12/31/19 10:00 Protonix Iv IVPUSH DAILY [facility] Rosuvastatin Calcium 10 mg 12/30/19 22:00 12/30/19 21:23 Crestor - PO Not Given HS [facility] Scopolamine HBr 1 patch 12/30/19 15:45 12/30/19 17:51 Transderm-Scop - TD 1 patch Q72H [facility] Administration Sevelamer Carbonate 0.8 gm 12/30/19 17:30 12/31/19 09:48 Renvela Powder Packet - PO Not Given TIDCM [facility] Silver Sulfadiazine 1 applic 12/30/19 22:00 12/30/19 23:49 Silvadene - TP 1 applic BID [facility] Administration Impression 1. CKD 2. CHF 3. BPH 4. a. fib 5. CAD 6. epilepsy 7. proteinuria 8. anemia 9. foot ulcer 10. abd wall cellulitis 11. bullous pemphigoid 12. LETITIA 13. hyperkalemia 14. cardiac arrest 15. resp failure on vent 16. r/o aspiration Plan - pt needs IV line and ngt - replace potassium when either is achieved - cont to monitor renal function - will need peg tub - cont wound care - resume cellcept - count wound care - letitia on ckd likely atn post cardiac arrest
[2019-12-31] MEDS ORDERED: TRIPLE LUMEN FLUSH 4 ML ML IVPUSH PRN (13:49)
[2019-12-31] MEDS ORDERED: POTASSIUM CHLORIDE ORAL LIQUID 20 MEQ/15 ML PO ONE (16:27)
[2019-12-31] MEDS: PANTOPRAZOLE SODIUM 40 MG VIAL IVPUSH SCH (16:45)
[2019-12-31] MEDS: CEFAZOLIN 500 MG in DEXTROSE 5%-WATER - 50 ML IVPB SCH ×2 (16:49→21:54)
[2019-12-31] MEDS: levETIRAcetam 500 MG/5 ML INJECTION VIAL IVPB SCH ×2 (16:50→22:53)
[2019-12-31] MEDS: FUROSEMIDE 40 MG/4 ML INJECTABLE VIAL IVPUSH SCH (16:52)
[2019-12-31] MEDS: LEVOTHYROXINE SODIUM 100 MCG VIAL IVPUSH SCH (16:53)
[2019-12-31] MEDS: SILVER SULFADIAZINE 1% TOP CREAM 50 GM JAR TP SCH ×2 (16:54→21:55)
[2019-12-31] MEDS: AMINO ACIDS/PROTEIN HYDROLYS 30 ML LIQUID.PKT PO SCH (16:55)
[2019-12-31] MEDS: MYCOPHENOLATE MOFETIL 200 MG/ML SUSPENSION NGT SCH (21:55)
[2019-12-31] MEDS: ROSUVASTATIN CA 10 MG TABLET (FP) PO SCH (21:55)
[2020-01-01 08:53] LABS: BASO % 0.5 % (0-2.0); EOS % 1.5 % (0-4.5); HEMATOCRIT 24.2 % (35.4-49); HEMOGLOBIN 7.9 GM/dL (11.7-16.9); LYMPH % 27.7 % (8-40); MCH 29.5 pg (25.7-33.7); MCHC 32.9 g/dl (32.0-35.9); MEAN CELL VOLUME 89.6 fl (80-96); MEAN PLT VOLUME 7.6 fl (7.5-11.1); MONO % 14.6 % (3.8-10.2); NEUT % 55.7 % (42.8-82.8); PLATELET COUNT 103 K/MM3 (134-434); RDW 15.5 % (11.9-15.9); WHITE BLOOD COUNT 4.9 K/mm3 (4.0-10.0)
[2020-01-01] MEDS: SEVELAMER CARBONATE 0.8 GM POWDER PACKET PO SCH ×3 (08:56→17:01)
[2020-01-01] MEDS: AMINO ACIDS/PROTEIN HYDROLYS 30 ML LIQUID.PKT PO SCH (09:12)
[2020-01-01] MEDS: MYCOPHENOLATE MOFETIL 200 MG/ML SUSPENSION NGT SCH ×2 (09:14→22:33)
[2020-01-01 09:23] LABS: BILIRUBIN,TOTAL 1.1 mg/dL (0.2-1); BLOOD UREA NITROGEN 77.8 mg/dL (7-18); CALCIUM 8.2 mg/dL (8.5-10.1); POTASSIUM 3.7 mmol/L (3.5-5.1); TOT PROT 5.6 g/dl (6.4-8.2)
[2020-01-01] MEDS ORDERED: PT OWN MED DRAWER 7, Y5N ONE ×3 (09:32→21:38)
[2020-01-01] MEDS: PANTOPRAZOLE SODIUM 40 MG VIAL IVPUSH SCH (10:05)
[2020-01-01] MEDS: FUROSEMIDE 40 MG/4 ML INJECTABLE VIAL IVPUSH SCH (10:07)
[2020-01-01] MEDS: LEVOTHYROXINE SODIUM 100 MCG VIAL IVPUSH SCH (10:08)
[2020-01-01] MEDS: levETIRAcetam 500 MG/5 ML INJECTION VIAL IVPB SCH ×2 (10:12→22:10)
[2020-01-01] MEDS: CEFAZOLIN 500 MG in DEXTROSE 5%-WATER - 50 ML IVPB SCH ×2 (10:12→22:10)
[2020-01-01] MEDS: SILVER SULFADIAZINE 1% TOP CREAM 50 GM JAR TP SCH ×2 (10:15→22:10)
--- NOTE | 2020-01-01 11:20 | PN ---
Progress Note (short form) - Note Progress Note: PULMONARY Vented, awake. Low tidal volumes on CPAP/PS. Vital Signs Period Temp Pulse Resp BP Sys/Hair Pulse Ox Last 24 Hr 98.8 F-100.9 F 79-115 19-28 149-156/68-93 99-100 Gen: vented, awake Heart: RRR Lung: decreased breath sounds at the bases Abd: soft, nontender Ext: no edema CBC, BMP 01/01/20 08:00 01/01/20 06:00 Active Medications Amino Acids (Prosource No Carb Liquid Pkt) 30 ml PO DAILY [facility] Last Admin: 01/01/20 09:12 Dose: Not Given Documented by: Artificial Tears (Artificial Tears) 1 drop OU BID PRN PRN Reason: DRY EYES Furosemide (Lasix Injection -) 40 mg IVPUSH DAILY [facility] Last Admin: 01/01/20 10:07 Dose: 40 mg Documented by: IV Flush (Triple Lumen Flush) 4 ml IVPUSH PRN PRN PRN Reason: Protocol Cefazolin Sodium 500 mg/ (Dextrose) 50 mls @ 100 mls/hr IVPB BID [facility] Last Admin: 01/01/20 10:12 Dose: 100 mls/hr Documented by: Levetiracetam (Keppra Injection -) 500 mg IVPB BID [facility] Last Admin: 01/01/20 10:12 Dose: 500 mg Documented by: Levothyroxine Sodium (Synthroid Injection -) 20 mcg IVPUSH DAILY [facility] Last Admin: 01/01/20 10:08 Dose: 20 mcg Documented by: Mycophenolate Mofetil (Cellcept Suspension -) 500 mg NGT BID [facility] Last Admin: 01/01/20 09:14 Dose: Not Given Documented by: Pantoprazole Sodium (Protonix Iv) 40 mg IVPUSH DAILY [facility] Last Admin: 01/01/20 10:05 Dose: 40 mg Documented by: Rosuvastatin Calcium (Crestor -) 10 mg PO HS [facility] Last Admin: 12/31/19 21:55 Dose: 10 mg Documented by: Sevelamer Carbonate (Renvela Powder Packet -) 0.8 gm PO TIDCM [facility] Last Admin: 01/01/20 08:56 Dose: Not Given Documented by: Silver Sulfadiazine (Silvadene -) 1 applic TP BID [facility] Last Admin: 01/01/20 10:15 Dose: 1 applic Documented by: A/P s/p Cardiopulmonary Arrest Acute Hypoxic and Hypercapneic Respiratory Failure Likely Aspiration Pneumonia S/P Septic Shock Acute on Chronic Renal Failure improving Lactic Acidosis Bullous Pemphigoid CAD LV Diastolic Dysfunction Atrial Fibrillation Seizure Disorder h/o CVA Hypothyroidism Anemia Thrombocytopenia - antibiotics per ID - monitor H/H - continue lasix - monitor urine output, creatinine - rate control - spontaneous breathing trials as tolerated - enteral feeds - DVT/GI prophylaxis
--- NOTE | 2020-01-01 12:38 | PN ---
Progress Note, Physician Chief Complaint: s/p Cardiopulmonary Arrest Acute Hypoxic and Hypercapneic Respiratory Failure Likely Aspiration Pneumonia Septic Shock Acute on Chronic Renal Failure Lactic Acidosis Bullous Pemphigoid CAD LV Diastolic Dysfunction Atrial Fibrillation Seizure Disorder h/o CVA Hypothyroidism Anemia Thrombocytopenia History of Present Illness: Awake, nods his head to questioning Going for PEG placement today No IV line - Current Medication List Current Medications: Active Medications Amino Acids (Prosource No Carb Liquid Pkt) 30 ml PO DAILY [facility] Last Admin: 01/01/20 09:12 Dose: Not Given Documented by: Artificial Tears (Artificial Tears) 1 drop OU BID PRN PRN Reason: DRY EYES Furosemide (Lasix Injection -) 40 mg IVPUSH DAILY [facility] Last Admin: 01/01/20 10:07 Dose: 40 mg Documented by: IV Flush (Triple Lumen Flush) 4 ml IVPUSH PRN PRN PRN Reason: Protocol Cefazolin Sodium 500 mg/ (Dextrose) 50 mls @ 100 mls/hr IVPB BID [facility] Last Admin: 01/01/20 10:12 Dose: 100 mls/hr Documented by: Levetiracetam (Keppra Injection -) 500 mg IVPB BID [facility] Last Admin: 01/01/20 10:12 Dose: 500 mg Documented by: Levothyroxine Sodium (Synthroid Injection -) 20 mcg IVPUSH DAILY [facility] Last Admin: 01/01/20 10:08 Dose: 20 mcg Documented by: Mycophenolate Mofetil (Cellcept Suspension -) 500 mg NGT BID [facility] Last Admin: 01/01/20 09:14 Dose: Not Given Documented by: Pantoprazole Sodium (Protonix Iv) 40 mg IVPUSH DAILY [facility] Last Admin: 01/01/20 10:05 Dose: 40 mg Documented by: Rosuvastatin Calcium (Crestor -) 10 mg PO HS [facility] Last Admin: 12/31/19 21:55 Dose: 10 mg Documented by: Sevelamer Carbonate (Renvela Powder Packet -) 0.8 gm PO TIDCM [facility] Last Admin: 01/01/20 11:30 Dose: Not Given Documented by: Silver Sulfadiazine (Silvadene -) 1 applic TP BID [facility] Last Admin: 01/01/20 10:15 Dose: 1 applic Documented by: - Objective Vital Signs: Vital Signs Temperature 98.8 F 07/16/20 06:00 Pulse Rate 79 01/01/20 06:00 Respiratory Rate 21 H 01/01/20 12:20 Blood Pressure 149/68 01/01/20 06:00 O2 Sat by Pulse Oximetry (%) 100 01/01/20 09:00 Constitutional: Yes: Well Nourished, No Distress, Calm Cardiovascular: Yes: Pulse Irregular Respiratory: Yes: Regular, Mechanically Ventilated, Rhonchi Gastrointestinal: Yes: Soft, Abdomen, Obese, Hypoactive Bowel Sounds Genitourinary: Yes: [place] Present Edema: No Peripheral Pulses WNL: Yes Integumentary: Yes: Skin Tear (generalized) Neurological: Yes: Alert Labs: CBC, BMP 01/01/20 08:00 01/01/20 06:00 INR, PTT INR 1.14 (0.83-1.09) H 12/26/19 08:05 Problem List - Problems (1) Acute respiratory failure Assessment/Plan: -Mech vent -Pulmonary consult -IV Cefazolin -PEG placement -Start feeds when placement is confirmed -Bronchodilators Problems reviewed: Yes Code(s): J96.00 - ACUTE RESPIRATORY FAILURE, UNSP W HYPOXIA OR HYPERCAPNIA (2) Bullous pemphigoid Assessment/Plan: -Cellcept restarted -Silvadene top Problems reviewed: Yes Code(s): L12.0 - BULLOUS PEMPHIGOID (3) Acute on chronic renal insufficiency Assessment/Plan: -Nephrology on board -monitor daily labs Problems reviewed: Yes Code(s): N28.9 - DISORDER OF KIDNEY AND URETER, UNSPECIFIED; N18.9 - CHRONIC KIDNEY DISEASE, UNSPECIFIED (4) Pneumonia Assessment/Plan: -Likely aspiration -CXR reviewed -COVID 19 PCR negative -IV abx -ID consult -Lactic acidosis noted Problems reviewed: Yes Code(s): J18.9 - PNEUMONIA, UNSPECIFIED ORGANISM (5) Afib Assessment/Plan: -Chronic, rate controlled -Eliquis Held due to acute GI bleed -Transfuse only if Hg <7.0 to avoid fluid overload Problems reviewed: Yes Code(s): I48.91 - UNSPECIFIED ATRIAL FIBRILLATION (6) Anemia Assessment/Plan: -Chronic -H/H stable at this time -workup last admission was negative -hematology consult -Transfuse only if hg<7.0 to avoid fluid overload. -Procrit as per hematology Problems reviewed: Yes Code(s): D64.9 - ANEMIA, UNSPECIFIED Assessment/Plan See problem list GI PPX
--- NOTE | 2020-01-01 14:37 | PN ---
Progress Note, Physician History of Present Illness: Pt seen and examined at bedside. He is more interactive today. - Current Medication List Current Medications: Active Medications Amino Acids (Prosource No Carb Liquid Pkt) 30 ml PO DAILY [facility] Last Admin: 01/01/20 09:12 Dose: Not Given Documented by: Artificial Tears (Artificial Tears) 1 drop OU BID PRN PRN Reason: DRY EYES Furosemide (Lasix Injection -) 40 mg IVPUSH DAILY [facility] Last Admin: 01/01/20 10:07 Dose: 40 mg Documented by: IV Flush (Triple Lumen Flush) 4 ml IVPUSH PRN PRN PRN Reason: Protocol Cefazolin Sodium 500 mg/ (Dextrose) 50 mls @ 100 mls/hr IVPB BID [facility] Last Admin: 01/01/20 10:12 Dose: 100 mls/hr Documented by: Levetiracetam (Keppra Injection -) 500 mg IVPB BID [facility] Last Admin: 01/01/20 10:12 Dose: 500 mg Documented by: Levothyroxine Sodium (Synthroid Injection -) 20 mcg IVPUSH DAILY [facility] Last Admin: 01/01/20 10:08 Dose: 20 mcg Documented by: Mycophenolate Mofetil (Cellcept Suspension -) 500 mg NGT BID [facility] Last Admin: 01/01/20 09:14 Dose: Not Given Documented by: Pantoprazole Sodium (Protonix Iv) 40 mg IVPUSH DAILY [facility] Last Admin: 01/01/20 10:05 Dose: 40 mg Documented by: Rosuvastatin Calcium (Crestor -) 10 mg PO HS [facility] Last Admin: 12/31/19 21:55 Dose: 10 mg Documented by: Sevelamer Carbonate (Renvela Powder Packet -) 0.8 gm PO TIDCM [facility] Last Admin: 01/01/20 11:30 Dose: Not Given Documented by: Silver Sulfadiazine (Silvadene -) 1 applic TP BID [facility] Last Admin: 01/01/20 10:15 Dose: 1 applic Documented by: - Objective Vital Signs: Vital Signs Temperature 98.3 F 01/01/20 10:00 Pulse Rate 94 H 01/01/20 10:00 Respiratory Rate 21 H 01/01/20 12:20 Blood Pressure 149/83 01/01/20 10:00 O2 Sat by Pulse Oximetry (%) 100 01/01/20 10:00 Constitutional: Yes: Calm Eyes: Yes: Conjunctiva Clear HENT: Yes: Atraumatic Neck: Yes: Supple Cardiovascular: Yes: S1, S2 Respiratory: Yes: Mechanically Ventilated Gastrointestinal: Yes: Soft Genitourinary: Yes: Incontinence Musculoskeletal: Yes: WNL Neurological: Yes: Confusion Labs: CBC, BMP 01/01/20 08:00 01/01/20 06:00 INR, PTT INR 1.14 (0.83-1.09) H 12/26/19 08:05 Problem List - Problems (1) Acute respiratory failure Code(s): J96.00 - ACUTE RESPIRATORY FAILURE, UNSP W HYPOXIA OR HYPERCAPNIA (2) Bullous pemphigoid Code(s): L12.0 - BULLOUS PEMPHIGOID Assessment/Plan Current Medications Generic Name Dose Route Start Last Admin Trade Name Freq PRN Reason Stop Dose Admin Amino Acids 30 ml 12/31/19 10:00 01/01/20 09:12 Prosource No Carb Liquid Pkt PO Not Given DAILY [facility] Artificial Tears 1 drop 12/30/19 14:58 Artificial Tears OU BID PRN DRY EYES Furosemide 40 mg 12/31/19 10:00 01/01/20 10:07 Lasix Injection - IVPUSH 40 mg DAILY [facility] Administration IV Flush 4 ml 12/31/19 13:49 Triple Lumen Flush IVPUSH PRN PRN Protocol Cefazolin Sodium 500 mg/ 50 mls @ 100 mls/hr 12/30/19 22:00 01/01/20 10:12 Dextrose IVPB 100 mls/hr BID [facility] Administration Potassium Chloride 20 meq/ 1,010 mls @ 50 mls/hr 01/01/20 14:45 Dextrose IVPB .[id number] [facility] Levetiracetam 500 mg 12/30/19 22:00 01/01/20 10:12 Keppra Injection - IVPB 500 mg BID [facility] Administration Levothyroxine Sodium 20 mcg 12/31/19 10:00 01/01/20 10:08 Synthroid Injection - IVPUSH 20 mcg DAILY [facility] Administration Mycophenolate Mofetil 500 mg 12/31/19 22:00 01/01/20 09:14 Cellcept Suspension - NGT Not Given BID [facility] Pantoprazole Sodium 40 mg 12/31/19 10:00 01/01/20 10:05 Protonix Iv IVPUSH 40 mg DAILY [facility] Administration Rosuvastatin Calcium 10 mg 12/30/19 22:00 12/31/19 21:55 Crestor - PO 10 mg HS [facility] Administration Sevelamer Carbonate 0.8 gm 12/30/19 17:30 01/01/20 11:30 Renvela Powder Packet - PO Not Given TIDCM [facility] Silver Sulfadiazine 1 applic 12/30/19 22:00 01/01/20 10:15 Silvadene - TP 1 applic BID [facility] Administration Impression 1. CKD 2. CHF 3. BPH 4. a. fib 5. CAD 6. epilepsy 7. proteinuria 8. anemia 9. foot ulcer 10. abd wall cellulitis 11. bullous pemphigoid 12. LETITIA 13. hyperkalemia 14. cardiac arrest 15. resp failure on vent 16. r/o aspiration Plan - will start d5w while npo - hold lasix for now - pt for peg tube - called and discussed with last night - cont to monitor renal function - cont wound care - resume cellcept
[2020-01-01] MEDS ORDERED: GLUCAGON 1 MG KIT IM ONE (15:45)
--- NOTE | 2020-01-01 16:15 | PN ---
Progress Note, Physician History of Present Illness: LESS AWAKE AND ALERT LOW GRADE TEMP NOTED WBC WNL AZOTEMIA IMPROVED PLT COUNT LOWER BC MSSA (12/06) BC (12/07) NO GROWTH - Current Medication List Current Medications: Active Medications Amino Acids (Prosource No Carb Liquid Pkt) 30 ml PO DAILY [facility] Last Admin: 01/01/20 09:12 Dose: Not Given Documented by: Artificial Tears (Artificial Tears) 1 drop OU BID PRN PRN Reason: DRY EYES IV Flush (Triple Lumen Flush) 4 ml IVPUSH PRN PRN PRN Reason: Protocol Cefazolin Sodium 500 mg/ (Dextrose) 50 mls @ 100 mls/hr IVPB BID [facility] Last Admin: 01/01/20 10:12 Dose: 100 mls/hr Documented by: Potassium Chloride 20 meq/ (Dextrose) 1,010 mls @ 50 mls/hr IVPB Q20H [facility] Levetiracetam (Keppra Injection -) 500 mg IVPB BID [facility] Last Admin: 01/01/20 10:12 Dose: 500 mg Documented by: Levothyroxine Sodium (Synthroid Injection -) 20 mcg IVPUSH DAILY [facility] Last Admin: 01/01/20 10:08 Dose: 20 mcg Documented by: Mycophenolate Mofetil (Cellcept Suspension -) 500 mg NGT BID [facility] Last Admin: 01/01/20 09:14 Dose: Not Given Documented by: Pantoprazole Sodium (Protonix Iv) 40 mg IVPUSH DAILY [facility] Last Admin: 01/01/20 10:05 Dose: 40 mg Documented by: Rosuvastatin Calcium (Crestor -) 10 mg PO HS [facility] Last Admin: 12/31/19 21:55 Dose: 10 mg Documented by: Sevelamer Carbonate (Renvela Powder Packet -) 0.8 gm PO TIDCM [facility] Last Admin: 01/01/20 11:30 Dose: Not Given Documented by: Silver Sulfadiazine (Silvadene -) 1 applic TP BID [facility] Last Admin: 01/01/20 10:15 Dose: 1 applic Documented by: - Objective Vital Signs: Vital Signs Temperature 98.2 F 01/01/20 15:50 Pulse Rate 96 H 01/01/20 15:50 Respiratory Rate 22 H 01/01/20 15:50 Blood Pressure 149/96 01/01/20 15:50 O2 Sat by Pulse Oximetry (%) 100 01/01/20 15:50 Constitutional: Yes: No Distress Eyes: Yes: Conjunctiva Clear Cardiovascular: Yes: Regular Rate and Rhythm, S1, S2 Respiratory: Yes: CTA Bilaterally Gastrointestinal: Yes: Normal Bowel Sounds, Soft Extremities: Yes: Other (SCATTERRED ULCERATIVE LESIONS, DRY) Labs: CBC, BMP 01/01/20 08:00 01/01/20 06:00 INR, PTT INR 1.14 (0.83-1.09) H 12/26/19 08:05 Assessment/Plan + BLOOD C/S MSSA PROBABLE SKIN SOURCE ACUTE RESP FAILURE PNEUMOMIA AZOTEMIA PLANTAR ULCER HEALED BULOUS PEMPHIGOID CEFAZOLIN DAY #25 REPEAT BC NO GROWTH ECHO NO VEGETATIONS PROGNOSIS POOR
[2020-01-01] MEDS ORDERED: EPOETIN ALFA 20,000 UNIT/1 ML VIAL SQ ONE (16:42)
--- NOTE | 2020-01-01 17:00 | PN ---
Physical Exam: SUBJECTIVE: Patient seen and examined. Pt. trached unable to verbalize. Denies any pain at this time. OBJECTIVE: Vital Signs Period Temp Pulse Resp BP Sys/Hair Pulse Ox Last 24 Hr 98.2 F-99.6 F 79-115 12-28 147-163/68-96 99-100 GENERAL: The patient is awake, alert, in no acute distress. HEAD: Normal with no signs of trauma. EYES: Sclera anicteric, conjunctiva clear. ENT: Moist mucous membranes. NECK: Trached and vented midline LUNGS: Breath sounds equal, clear to auscultation bilaterally anteriorly, no wheezes, no crackles, no accessory muscle use. HEART: Regular rate and rhythm, S1, S2 without murmur, rub or gallop. ABDOMEN: Soft, nontender, nondistended, normoactive bowel sounds, no guarding EXTREMITIES: 2+ dorsal pedal pulses, warm, well-perfused, no calf tenderness no edema. NEUROLOGICAL: Unable to assess. Pt. moves all extremities PSYCH: Normal mood, normal affect. SKIN: Diffuse areas of bullae that are in various stages of healing Laboratory Results - last 24 hr 01/01/20 01/01/20 01/01/20 06:00 06:18 08:00 WBC 4.9 RBC 2.70 L Hgb 7.9 L Hct 24.2 L MCV 89.6 MCH 29.5 MCHC 32.9 RDW 15.5 Plt Count 103 L MPV 7.6 Absolute Neuts (auto) 2.7 Neutrophils % 55.7 D Lymphocytes % 27.7 D Monocytes % 14.6 H Eosinophils % 1.5 Basophils % 0.5 Nucleated RBC % 0 Sodium 148 H Potassium 3.7 Chloride 112 H Carbon Dioxide 24 Anion Gap 13 BUN 77.8 H Creatinine 2.0 H Est GFR (CKD-EPI)AfAm 35.23 Est GFR (CKD-EPI)NonAf 30.40 POC Glucometer 76 Random Glucose 80 Calcium 8.2 L Total Bilirubin 1.1 H AST 39 H ALT 10 L Alkaline Phosphatase 100 Total Protein 5.6 L Albumin 2.0 L Active Medications Generic Name Dose Route Start Last Admin Trade Name Freq PRN Reason Stop Dose Admin Amino Acids 30 ml 12/31/19 10:00 01/01/20 09:12 Prosource No Carb Liquid Pkt PO Not Given DAILY [facility] Artificial Tears 1 drop 12/30/19 14:58 Artificial Tears OU BID PRN DRY EYES IV Flush 4 ml 12/31/19 13:49 Triple Lumen Flush IVPUSH PRN PRN Protocol Cefazolin Sodium 500 mg/ 50 mls @ 100 mls/hr 12/30/19 22:00 01/01/20 10:12 Dextrose IVPB 100 mls/hr BID [facility] Administration Potassium Chloride 20 meq/ 1,010 mls @ 50 mls/hr 01/01/20 15:00 Dextrose IVPB Q20H [facility] Levetiracetam 500 mg 12/30/19 22:00 01/01/20 10:12 Keppra Injection - IVPB 500 mg BID [facility] Administration Levothyroxine Sodium 20 mcg 12/31/19 10:00 01/01/20 10:08 Synthroid Injection - IVPUSH 20 mcg DAILY [facility] Administration Mycophenolate Mofetil 500 mg 12/31/19 22:00 01/01/20 09:14 Cellcept Suspension - NGT Not Given BID [facility] Pantoprazole Sodium 40 mg 12/31/19 10:00 01/01/20 10:05 Protonix Iv IVPUSH 40 mg DAILY [facility] Administration Rosuvastatin Calcium 10 mg 12/30/19 22:00 12/31/19 21:55 Crestor - PO 10 mg HS [facility] Administration Sevelamer Carbonate 0.8 gm 12/30/19 17:30 01/01/20 11:30 Renvela Powder Packet - PO Not Given TIDCM [facility] Silver Sulfadiazine 1 applic 12/30/19 22:00 01/01/20 10:15 Silvadene - TP 1 applic BID [facility] Administration ASSESSMENT/PLAN: Pt. is an 79 y.o. M w/ PMHx. HFpEF, afib, CAD s/p PCI, HTN, seizure d/o, CVA with right sided residual deficit, CKD, hypothyroidism, and bullous pemphigoid. He was s/p cardiopulmonary arrest (on 12/09/2019) and possible aspiration pneumonia. Admitted to ICU for acute hypoxic respiratory failure. He was anemic on 12/19 with Hb of 6.3 and received 3 U pRBCs. Hb has since stabilized and has not required further transfusions. Pt is mechanically ventilated and was weaned off sedation. Tracheostomy placed on 12/25. Ventilator settings are 16/450/40%/5. #Anemia Pt. received 40k Procrit on 12/15/19 Will give another dose today, discussed with Dr. Tipton TSAT: 91%, HgB 7.9 Likely 2/2 CKD and anemia of chronic disease, complicated by sequalae of cardiac arrest and aspiration pneumonia trend CBC Pt. may require transfusion if further decrease in HgB, Transfusion threshold is 8. Visit type - Emergency Visit Emergency Visit: Yes ED Registration Date: 12/03/19 Care time: The patient presented to the Emergency Department on the above date and was hospitalized for further evaluation of their emergent condition. - New Patient This patient is new to me today: Yes Date on this admission: 01/01/20 - Critical Care Critical Care patient: No - Discharge Referral Referred to [facility] No ATTENDING PHYSICIAN STATEMENT I saw and evaluated the patient. I reviewed the resident's note and discussed the case with the resident. I agree with the resident's findings and plan as documented. SUBJECTIVE: OBJECTIVE: ASSESSMENT AND PLAN:
[2020-01-01] MEDS: POTASSIUM CHLORIDE 20 MEQ in DEXTROSE 5%-WATER - 1,000 ML IVPB SCH (17:22)
--- NOTE | 2020-01-01 19:21 | PN ---
Teaching Attending Note Name of Resident: Gato Rick ATTENDING PHYSICIAN STATEMENT I saw and evaluated the patient. I reviewed the resident's note and discussed the case with the resident. I agree with the resident's findings and plan as documented. 79 y.o. M w/ PMHx. HFpEF, afib, CAD s/p PCI, HTN, seizure d/o, CVA with right sided residual deficit, CKD, hypothyroidism, and bullous pemphigoid. s/p cardiopulmonary arrest (on 12/09/2019) and possible aspiration pneumonia. Admitted to ICU for acute hypoxic respiratory failure. He was anemic on 12/19 with Hb of 6.3 and received 3 U pRBCs. Hb has since stabilized and has not required further transfusions. Remains ventilator-dependent, not able to wean. Tracheostomy placed on 12/25. Pt. received 40k Procrit on 12/15/19 Anemia likely due to CRI and chronic disease. C/w weekly pricrit. D/w House Staff
[2020-01-01] MEDS ORDERED: ACETAMINOPHEN 1000 MG/100 ML VIAL (NON FORMULARY) IVPB ONE (19:41)
[2020-01-01] MEDS ORDERED: ACETAMINOPHEN 1000 MG/100 ML VIAL (NON FORMULARY) IVPB PRN (21:54)
[2020-01-01] MEDS: ROSUVASTATIN CA 10 MG TABLET (FP) PO SCH (22:10)
[2020-01-02 08:47] LABS: BASO % 0.5 % (0-2.0); EOS % 1.9 % (0-4.5); HEMATOCRIT 24.5 % (35.4-49); LYMPH % 22.8 % (8-40); MCH 29.1 pg (25.7-33.7); MCHC 32.6 g/dl (32.0-35.9); MEAN CELL VOLUME 89.2 fl (80-96); MEAN PLT VOLUME 7.3 fl (7.5-11.1); MONO % 13.1 % (3.8-10.2); NEUT % 61.7 % (42.8-82.8); PLATELET COUNT 104 K/MM3 (134-434); RBC 2.75 M/mm3 (4.00-5.60); RDW 15.2 % (11.9-15.9)
[2020-01-02 09:05] LABS: POTASSIUM 3.7 mmol/L (3.5-5.1)
[2020-01-02 09:19] LABS: BILIRUBIN,TOTAL 1.3 mg/dL (0.2-1); BLOOD UREA NITROGEN 74.6 mg/dL (7-18); CALCIUM 8.8 mg/dL (8.5-10.1); TOT PROT 5.6 g/dl (6.4-8.2)
[2020-01-02] MEDS ORDERED: PT OWN MED DRAWER 7, Y5N ONE ×3 (09:27→22:55)
--- NOTE | 2020-01-02 09:50 | PN ---
Progress Note, Physician - Current Medication List Current Medications: Active Medications Acetaminophen (Ofirmev Injection -) 1,000 mg IVPB Q6H PRN PRN Reason: PAIN 1-3 Stop: 01/02/20 21:54 Amino Acids (Prosource No Carb Liquid Pkt) 30 ml PO DAILY [facility] Last Admin: 01/01/20 09:12 Dose: Not Given Documented by: Artificial Tears (Artificial Tears) 1 drop OU BID PRN PRN Reason: DRY EYES IV Flush (Triple Lumen Flush) 4 ml IVPUSH PRN PRN PRN Reason: Protocol Cefazolin Sodium 500 mg/ (Dextrose) 50 mls @ 100 mls/hr IVPB BID [facility] Last Admin: 01/01/20 22:10 Dose: 100 mls/hr Documented by: Potassium Chloride 20 meq/ (Dextrose) 1,010 mls @ 50 mls/hr IVPB Q20H [facility] Last Admin: 01/01/20 17:22 Dose: 50 mls/hr Documented by: Levetiracetam (Keppra Injection -) 500 mg IVPB BID [facility] Last Admin: 01/01/20 22:10 Dose: 500 mg Documented by: Levothyroxine Sodium (Synthroid Injection -) 20 mcg IVPUSH DAILY [facility] Last Admin: 01/01/20 10:08 Dose: 20 mcg Documented by: Mycophenolate Mofetil (Cellcept Suspension -) 500 mg NGT BID [facility] Last Admin: 01/01/20 22:33 Dose: 500 mg Documented by: Pantoprazole Sodium (Protonix Iv) 40 mg IVPUSH DAILY [facility] Last Admin: 01/01/20 10:05 Dose: 40 mg Documented by: Rosuvastatin Calcium (Crestor -) 10 mg PO HS [facility] Last Admin: 01/01/20 22:10 Dose: 10 mg Documented by: Sevelamer Carbonate (Renvela Powder Packet -) 0.8 gm PO TIDCM [facility] Last Admin: 01/01/20 17:01 Dose: Not Given Documented by: Silver Sulfadiazine (Silvadene -) 1 applic TP BID [facility] Last Admin: 01/01/20 22:10 Dose: 1 applic Documented by: - Objective Vital Signs: Vital Signs Temperature 97.9 F 01/02/20 06:00 Pulse Rate 62 01/02/20 06:00 Respiratory Rate 18 01/02/20 06:00 Blood Pressure 149/68 01/02/20 06:00 O2 Sat by Pulse Oximetry (%) 100 01/02/20 06:00 Cardiovascular: Yes: S1, S2 Respiratory: Yes: Regular, CTA Bilaterally Gastrointestinal: Yes: Normal Bowel Sounds, Soft, Other (peg) Labs: CBC, BMP 01/02/20 07:45 01/02/20 07:45 INR, PTT INR 1.14 (0.83-1.09) H 12/26/19 08:05 Problem List - Problems (1) Bullous pemphigoid Code(s): L12.0 - BULLOUS PEMPHIGOID (2) Caregiver unable to cope Code(s): Z74.8 - OTHER PROBLEMS RELATED TO CARE PROVIDER DEPENDENCY (3) Afib Code(s): I48.91 - UNSPECIFIED ATRIAL FIBRILLATION (4) Anemia Code(s): D64.9 - ANEMIA, UNSPECIFIED Qualifiers: Iron deficiency anemia type: chronic blood loss (5) CHF (congestive heart failure) Code(s): I50.9 - HEART FAILURE, UNSPECIFIED (6) Diabetes mellitus Code(s): E11.9 - TYPE 2 DIABETES MELLITUS WITHOUT COMPLICATIONS (7) Hypothyroidism Code(s): E03.9 - HYPOTHYROIDISM, UNSPECIFIED Assessment/Plan - Problems (1) Acute respiratory failure Assessment/Plan: -Mech vent -Pulmonary consult -IV Cefazolin -PEG placement done await IR clearnce -Start feeds when placement is confirmed -Bronchodilators Problems reviewed: Yes Code(s): J96.00 - ACUTE RESPIRATORY FAILURE, UNSP W HYPOXIA OR HYPERCAPNIA (2) Bullous pemphigoid Assessment/Plan: -Cellcept restarted -Silvadene top Problems reviewed: Yes Code(s): L12.0 - BULLOUS PEMPHIGOID (3) Acute on chronic renal insufficiency Assessment/Plan: -Nephrology on board -monitor daily labs Problems reviewed: Yes Code(s): N28.9 - DISORDER OF KIDNEY AND URETER, UNSPECIFIED; N18.9 - CHRONIC KIDNEY DISEASE, UNSPECIFIED (4) Pneumonia Assessment/Plan: -Likely aspiration -CXR reviewed -COVID 19 PCR negative -IV abx -ID consult -Lactic acidosis noted Problems reviewed: Yes Code(s): J18.9 - PNEUMONIA, UNSPECIFIED ORGANISM (5) Afib Assessment/Plan: -Chronic, rate controlled -Eliquis Held due to acute GI bleed -Transfuse only if Hg <7.0 to avoid fluid overload Problems reviewed: Yes Code(s): I48.91 - UNSPECIFIED ATRIAL FIBRILLATION (6) Anemia Assessment/Plan: -Chronic -H/H stable at this time -workup last admission was negative -hematology consult -Transfuse only if hg<7.0 to avoid fluid overload. -Procrit as per hematology Problems reviewed: Yes Code(s): D64.9 - ANEMIA, UNSPECIFIED (7) Nutrition Assessment/Plan: -PEG placement done await IR clearnce then start feedings
--- NOTE | 2020-01-02 10:36 | PN ---
Progress Note (short form) - Note Progress Note: Vascular Surgery Right upper extremity eschar. Probably from dried blister. Start santyl to area daily. If does not get better, can debride eschar. James Srivastava DO
[2020-01-02] MEDS: levETIRAcetam 500 MG/5 ML INJECTION VIAL IVPB SCH ×2 (11:05→22:58)
[2020-01-02] MEDS: SEVELAMER CARBONATE 0.8 GM POWDER PACKET PO SCH ×3 (11:05→18:49)
[2020-01-02] MEDS: CEFAZOLIN 500 MG in DEXTROSE 5%-WATER - 50 ML IVPB SCH ×2 (11:12→22:58)
[2020-01-02] MEDS: MYCOPHENOLATE MOFETIL 200 MG/ML SUSPENSION NGT SCH ×2 (11:12→22:57)
[2020-01-02] MEDS: PANTOPRAZOLE SODIUM 40 MG VIAL IVPUSH SCH (11:12)
[2020-01-02] MEDS: AMINO ACIDS/PROTEIN HYDROLYS 30 ML LIQUID.PKT PO SCH (11:12)
[2020-01-02] MEDS: SILVER SULFADIAZINE 1% TOP CREAM 50 GM JAR TP SCH ×2 (11:13→22:59)
[2020-01-02] MEDS: LEVOTHYROXINE SODIUM 100 MCG VIAL IVPUSH SCH (11:13)
[2020-01-02] MEDS: POTASSIUM CHLORIDE 20 MEQ in DEXTROSE 5%-WATER - 1,000 ML IVPB SCH ×2 (11:14→14:38)
--- NOTE | 2020-01-02 11:27 | PN ---
Progress Note, Physician History of Present Illness: pulmonary alert,comfortable on vent support ac mode - Current Medication List Current Medications: Active Medications Acetaminophen (Ofirmev Injection -) 1,000 mg IVPB Q6H PRN PRN Reason: PAIN 1-3 Stop: 01/02/20 21:54 Amino Acids (Prosource No Carb Liquid Pkt) 30 ml PO DAILY [facility] Last Admin: 01/02/20 11:12 Dose: 30 ml Documented by: Artificial Tears (Artificial Tears) 1 drop OU BID PRN PRN Reason: DRY EYES Collagenase (Santyl -) 1 applic TP DAILY [facility]; Protocol IV Flush (Triple Lumen Flush) 4 ml IVPUSH PRN PRN PRN Reason: Protocol Cefazolin Sodium 500 mg/ (Dextrose) 50 mls @ 100 mls/hr IVPB BID [facility] Last Admin: 01/02/20 11:12 Dose: 100 mls/hr Documented by: Potassium Chloride 20 meq/ (Dextrose) 1,010 mls @ 50 mls/hr IVPB Q20H [facility] Last Admin: 01/02/20 11:14 Dose: Not Given Documented by: Levetiracetam (Keppra Injection -) 500 mg IVPB BID [facility] Last Admin: 01/02/20 11:05 Dose: 500 mg Documented by: Levothyroxine Sodium (Synthroid Injection -) 20 mcg IVPUSH DAILY [facility] Last Admin: 01/02/20 11:13 Dose: 20 mcg Documented by: Mycophenolate Mofetil (Cellcept Suspension -) 500 mg NGT BID [facility] Last Admin: 01/02/20 11:12 Dose: 500 mg Documented by: Pantoprazole Sodium (Protonix Iv) 40 mg IVPUSH DAILY [facility] Last Admin: 01/02/20 11:12 Dose: 40 mg Documented by: Rosuvastatin Calcium (Crestor -) 10 mg PO HS [facility] Last Admin: 01/01/20 22:10 Dose: 10 mg Documented by: Sevelamer Carbonate (Renvela Powder Packet -) 0.8 gm PO TIDCM [facility] Last Admin: 01/02/20 11:05 Dose: 0.8 gm Documented by: Silver Sulfadiazine (Silvadene -) 1 applic TP BID [facility] Last Admin: 01/02/20 11:13 Dose: 1 applic Documented by: - Objective Vital Signs: Vital Signs Temperature 97.9 F 01/02/20 06:00 Pulse Rate 62 01/02/20 06:00 Respiratory Rate 22 H 01/02/20 09:37 Blood Pressure 149/68 01/02/20 06:00 O2 Sat by Pulse Oximetry (%) 98 01/02/20 09:37 Constitutional: Yes: Well Nourished, Calm Eyes: Yes: WNL HENT: Yes: WNL Neck: Yes: WNL Cardiovascular: Yes: Pulse Irregular, S1, S2 Respiratory: Yes: Diminished, Rhonchi Gastrointestinal: Yes: Normal Bowel Sounds, Soft Extremities: Yes: WNL Edema: No Labs: CBC, BMP 01/02/20 07:45 01/02/20 07:45 INR, PTT INR 1.14 (0.83-1.09) H 12/26/19 08:05 Assessment/Plan Problem List - Problems (1) Bullous pemphigoid Code(s): L12.0 - BULLOUS PEMPHIGOID (2) Generalized weakness Code(s): R53.1 - WEAKNESS (3) Unable to ambulate Code(s): R26.2 - DIFFICULTY IN WALKING, NOT ELSEWHERE CLASSIFIED (4) Blisters of multiple sites Code(s): R23.8 - OTHER SKIN CHANGES (5) Abnormal liver enzymes Code(s): R74.8 - ABNORMAL LEVELS OF OTHER SERUM ENZYMES (6) Wound of foot Code(s): S91.309A - UNSPECIFIED OPEN WOUND, UNSPECIFIED FOOT, INITIAL ENCOUNTER (7) Afib Code(s): I48.91 - UNSPECIFIED ATRIAL FIBRILLATION (8) Anemia Code(s): D64.9 - ANEMIA, UNSPECIFIED Qualifiers: Iron deficiency anemia type: chronic blood loss (9) BPH (benign prostatic hyperplasia) Code(s): N40.0 - BENIGN PROSTATIC HYPERPLASIA WITHOUT LOWER URINRY TRACT SYMP (10) CAD (coronary artery disease) Code(s): I25.10 - ATHSCL HEART DISEASE OF [place] CORONARY ARTERY W/O ANG PCTRS (11) CHF (congestive heart failure) Code(s): I50.9 - HEART FAILURE, UNSPECIFIED (12) CKD (chronic kidney disease) Code(s): N18.9 - CHRONIC KIDNEY DISEASE, UNSPECIFIED (13) Diabetes mellitus Code(s): E11.9 - TYPE 2 DIABETES MELLITUS WITHOUT COMPLICATIONS (14) Diastolic CHF Code(s): I50.30 - UNSPECIFIED DIASTOLIC (CONGESTIVE) HEART FAILURE (15) Gastritis Code(s): K29.70 - GASTRITIS, UNSPECIFIED, WITHOUT BLEEDING (16) HTN (hypertension) Code(s): I10 - ESSENTIAL (PRIMARY) HYPERTENSION (17) History of colon cancer Code(s): Z85.038 - PERSONAL HISTORY OF MALIGNANT NEOPLASM OF LARGE INTESTINE (18) History of duodenal ulcer Code(s): Z87.19 - PERSONAL HISTORY OF OTHER DISEASES OF THE DIGESTIVE SYSTEM (19) Hyperlipidemia Code(s): E78.5 - HYPERLIPIDEMIA, UNSPECIFIED (20) Hypothyroid Code(s): E03.9 - HYPOTHYROIDISM, UNSPECIFIED (21) Paroxysmal atrial fibrillation Code(s): I48.0 - PAROXYSMAL ATRIAL FIBRILLATION (22) Peripheral arterial disease Code(s): I73.9 - PERIPHERAL VASCULAR DISEASE, UNSPECIFIED (23) Peripheral vascular disease Code(s): I73.9 - PERIPHERAL VASCULAR DISEASE, UNSPECIFIED (24) Pulmonary hypertension Code(s): I27.2 - OTHER SECONDARY PULMONARY HYPERTENSION * DO NOT USE * (25) Seizure Code(s): R56.9 - UNSPECIFIED CONVULSIONS (26) Seizure disorder Code(s): G40.909 - EPILEPSY, UNSP, NOT INTRACTABLE, WITHOUT STATUS EPILEPTICUS ASSESSMENT AND PLAN: s/p Cardiopulmonary Arrest Acute Hypoxic and Hypercapneic Respiratory Failure Likely Aspiration Pneumonia S/P Septic Shock Acute on Chronic Renal Failure improving Lactic Acidosis Bullous Pemphigoid CAD LV Diastolic Dysfunction Atrial Fibrillation Seizure Disorder h/o CVA Hypothyroidism Anemia Thrombocytopenia - ABX - monitor H/H - monitor urine output, creatinine - rate control - PRN MS & Ativan - continue volume assist control : Not ready for wean trials - enteral feeds : Will need PEG - DVT/GI prophylaxis - Lou LAYTON Problem List - Problems (1) Bullous pemphigoid Code(s): L12.0 - BULLOUS PEMPHIGOID (2) Generalized weakness Code(s): R53.1 - WEAKNESS (3) Unable to ambulate Code(s): R26.2 - DIFFICULTY IN WALKING, NOT ELSEWHERE CLASSIFIED (4) Blisters of multiple sites Code(s): R23.8 - OTHER SKIN CHANGES (5) Abnormal liver enzymes Code(s): R74.8 - ABNORMAL LEVELS OF OTHER SERUM ENZYMES (6) Wound of foot Code(s): S91.309A - UNSPECIFIED OPEN WOUND, UNSPECIFIED FOOT, INITIAL ENCOUNTER (7) Afib Code(s): I48.91 - UNSPECIFIED ATRIAL FIBRILLATION (8) Anemia Code(s): D64.9 - ANEMIA, UNSPECIFIED Qualifiers: Iron deficiency anemia type: chronic blood loss (9) BPH (benign prostatic hyperplasia) Code(s): N40.0 - BENIGN PROSTATIC HYPERPLASIA WITHOUT LOWER URINRY TRACT SYMP (10) CAD (coronary artery disease) Code(s): I25.10 - ATHSCL HEART DISEASE OF [place] CORONARY ARTERY W/O ANG PCTRS (11) CHF (congestive heart failure) Code(s): I50.9 - HEART FAILURE, UNSPECIFIED (12) CKD (chronic kidney disease) Code(s): N18.9 - CHRONIC KIDNEY DISEASE, UNSPECIFIED (13) Diabetes mellitus Code(s): E11.9 - TYPE 2 DIABETES MELLITUS WITHOUT COMPLICATIONS (14) Diastolic CHF Code(s): I50.30 - UNSPECIFIED DIASTOLIC (CONGESTIVE) HEART FAILURE (15) Gastritis Code(s): K29.70 - GASTRITIS, UNSPECIFIED, WITHOUT BLEEDING (16) HTN (hypertension) Code(s): I10 - ESSENTIAL (PRIMARY) HYPERTENSION (17) History of colon cancer Code(s): Z85.038 - PERSONAL HISTORY OF MALIGNANT NEOPLASM OF LARGE INTESTINE (18) History of duodenal ulcer Code(s): Z87.19 - PERSONAL HISTORY OF OTHER DISEASES OF THE DIGESTIVE SYSTEM (19) Hyperlipidemia Code(s): E78.5 - HYPERLIPIDEMIA, UNSPECIFIED (20) Hypothyroid Code(s): E03.9 - HYPOTHYROIDISM, UNSPECIFIED (21) Paroxysmal atrial fibrillation Code(s): I48.0 - PAROXYSMAL ATRIAL FIBRILLATION (22) Peripheral arterial disease Code(s): I73.9 - PERIPHERAL VASCULAR DISEASE, UNSPECIFIED (23) Peripheral vascular disease Code(s): I73.9 - PERIPHERAL VASCULAR DISEASE, UNSPECIFIED (24) Pulmonary hypertension Code(s): I27.2 - OTHER SECONDARY PULMONARY HYPERTENSION * DO NOT USE * (25) Seizure Code(s): R56.9 - UNSPECIFIED CONVULSIONS (26) Seizure disorder Code(s): G40.909 - EPILEPSY, UNSP, NOT INTRACTABLE, WITHOUT STATUS EPILEPTICUS
--- NOTE | 2020-01-02 12:44 | PN ---
Progress Note, Physician History of Present Illness: Pt seen and examined at bedside. He is more awake and responsive. He follows commands and is able to answer with nodding his head. - Current Medication List Current Medications: Active Medications Acetaminophen (Ofirmev Injection -) 1,000 mg IVPB Q6H PRN PRN Reason: PAIN 1-3 Stop: 01/02/20 21:54 Amino Acids (Prosource No Carb Liquid Pkt) 30 ml PO DAILY [facility] Last Admin: 01/02/20 11:12 Dose: 30 ml Documented by: Artificial Tears (Artificial Tears) 1 drop OU BID PRN PRN Reason: DRY EYES Collagenase (Santyl -) 1 applic TP DAILY [facility]; Protocol IV Flush (Triple Lumen Flush) 4 ml IVPUSH PRN PRN PRN Reason: Protocol Cefazolin Sodium 500 mg/ (Dextrose) 50 mls @ 100 mls/hr IVPB BID [facility] Last Admin: 01/02/20 11:12 Dose: 100 mls/hr Documented by: Potassium Chloride 20 meq/ (Dextrose) 1,010 mls @ 50 mls/hr IVPB Q20H [facility] Last Admin: 01/02/20 11:14 Dose: Not Given Documented by: Levetiracetam (Keppra Injection -) 500 mg IVPB BID [facility] Last Admin: 01/02/20 11:05 Dose: 500 mg Documented by: Levothyroxine Sodium (Synthroid Injection -) 20 mcg IVPUSH DAILY [facility] Last Admin: 01/02/20 11:13 Dose: 20 mcg Documented by: Mycophenolate Mofetil (Cellcept Suspension -) 500 mg NGT BID [facility] Last Admin: 01/02/20 11:12 Dose: 500 mg Documented by: Pantoprazole Sodium (Protonix Iv) 40 mg IVPUSH DAILY [facility] Last Admin: 01/02/20 11:12 Dose: 40 mg Documented by: Rosuvastatin Calcium (Crestor -) 10 mg PO HS [facility] Last Admin: 01/01/20 22:10 Dose: 10 mg Documented by: Sevelamer Carbonate (Renvela Powder Packet -) 0.8 gm PO TIDCM [facility] Last Admin: 01/02/20 11:05 Dose: 0.8 gm Documented by: Silver Sulfadiazine (Silvadene -) 1 applic TP BID [facility] Last Admin: 01/02/20 11:13 Dose: 1 applic Documented by: - Objective Vital Signs: Vital Signs Temperature 97.9 F 01/02/20 06:00 Pulse Rate 62 01/02/20 06:00 Respiratory Rate 22 H 01/02/20 09:37 Blood Pressure 149/68 01/02/20 06:00 O2 Sat by Pulse Oximetry (%) 98 01/02/20 09:37 Constitutional: Yes: Calm Eyes: Yes: Conjunctiva Clear Neck: Yes: Other (trache) Cardiovascular: Yes: S1, S2 Respiratory: Yes: Mechanically Ventilated Genitourinary: Yes: Incontinence Musculoskeletal: Yes: Muscle Weakness Edema: Yes Edema: LLE: Trace, RLE: Trace Integumentary: Yes: Other (bullous pemphigoid) Neurological: Yes: Oriented Labs: CBC, BMP 01/02/20 07:45 01/02/20 07:45 INR, PTT INR 1.14 (0.83-1.09) H 12/26/19 08:05 Problem List - Problems (1) Acute respiratory failure Code(s): J96.00 - ACUTE RESPIRATORY FAILURE, UNSP W HYPOXIA OR HYPERCAPNIA (2) Bullous pemphigoid Code(s): L12.0 - BULLOUS PEMPHIGOID Assessment/Plan Current Medications Generic Name Dose Route Start Last Admin Trade Name Freq PRN Reason Stop Dose Admin Acetaminophen 1,000 mg 01/01/20 21:54 Ofirmev Injection - IVPB 01/02/20 21:54 Q6H PRN PAIN 1-3 Amino Acids 30 ml 12/31/19 10:00 01/02/20 11:12 Prosource No Carb Liquid Pkt PO 30 ml DAILY [facility] Administration Artificial Tears 1 drop 12/30/19 14:58 Artificial Tears OU BID PRN DRY EYES Collagenase 1 applic 01/02/20 10:45 Santyl - TP DAILY [facility] Protocol IV Flush 4 ml 12/31/19 13:49 Triple Lumen Flush IVPUSH PRN PRN Protocol Cefazolin Sodium 500 mg/ 50 mls @ 100 mls/hr 12/30/19 22:00 01/02/20 11:12 Dextrose IVPB 100 mls/hr BID [facility] Administration Potassium Chloride 20 meq/ 1,010 mls @ 50 mls/hr 01/01/20 15:00 01/02/20 11:14 Dextrose IVPB Not Given Q20H [facility] Levetiracetam 500 mg 12/30/19 22:00 01/02/20 11:05 Keppra Injection - IVPB 500 mg BID [facility] Administration Levothyroxine Sodium 20 mcg 12/31/19 10:00 01/02/20 11:13 Synthroid Injection - IVPUSH 20 mcg DAILY [facility] Administration Mycophenolate Mofetil 500 mg 12/31/19 22:00 01/02/20 11:12 Cellcept Suspension - NGT 500 mg BID [facility] Administration Pantoprazole Sodium 40 mg 12/31/19 10:00 01/02/20 11:12 Protonix Iv IVPUSH 40 mg DAILY [facility] Administration Rosuvastatin Calcium 10 mg 12/30/19 22:00 01/01/20 22:10 Crestor - PO 10 mg HS [facility] Administration Sevelamer Carbonate 0.8 gm 12/30/19 17:30 01/02/20 11:05 Renvela Powder Packet - PO 0.8 gm TIDCM [facility] Administration Silver Sulfadiazine 1 applic 12/30/19 22:00 01/02/20 11:13 Silvadene - TP 1 applic BID [facility] Administration Impression 1. CKD 2. CHF 3. BPH 4. a. fib 5. CAD 6. epilepsy 7. proteinuria 8. anemia 9. foot ulcer 10. abd wall cellulitis 11. bullous pemphigoid 12. LETITIA 13. hyperkalemia 14. cardiac arrest 15. resp failure on vent 16. r/o aspiration Plan - sodium improving - d/c fluids once tolerating tube feeds - monitor volume status - lasix prn, on hold for now - cellcept for bullous pemphigoid - cont to monitor renal function - cont wound care
--- NOTE | 2020-01-02 14:49 | PN ---
Progress Note, Physician History of Present Illness: LESS AWAKE AND ALERT AFEBRILE WBC WNL AZOTEMIA IMPROVED PLT COUNT LOWER BC MSSA (12/06) BC (12/07) NO GROWTH - Current Medication List Current Medications: Active Medications Acetaminophen (Ofirmev Injection -) 1,000 mg IVPB Q6H PRN PRN Reason: PAIN 1-3 Stop: 01/02/20 21:54 Amino Acids (Prosource No Carb Liquid Pkt) 30 ml PO DAILY [facility] Last Admin: 01/02/20 11:12 Dose: 30 ml Documented by: Artificial Tears (Artificial Tears) 1 drop OU BID PRN PRN Reason: DRY EYES Collagenase (Santyl -) 1 applic TP DAILY [facility]; Protocol IV Flush (Triple Lumen Flush) 4 ml IVPUSH PRN PRN PRN Reason: Protocol Cefazolin Sodium 500 mg/ (Dextrose) 50 mls @ 100 mls/hr IVPB BID [facility] Last Admin: 01/02/20 11:12 Dose: 100 mls/hr Documented by: Potassium Chloride 20 meq/ (Dextrose) 1,010 mls @ 50 mls/hr IVPB Q20H [facility] Last Admin: 01/02/20 14:38 Dose: 50 mls/hr Documented by: Levetiracetam (Keppra Injection -) 500 mg IVPB BID [facility] Last Admin: 01/02/20 11:05 Dose: 500 mg Documented by: Levothyroxine Sodium (Synthroid Injection -) 20 mcg IVPUSH DAILY [facility] Last Admin: 01/02/20 11:13 Dose: 20 mcg Documented by: Mycophenolate Mofetil (Cellcept Suspension -) 500 mg NGT BID [facility] Last Admin: 01/02/20 11:12 Dose: 500 mg Documented by: Pantoprazole Sodium (Protonix Iv) 40 mg IVPUSH DAILY [facility] Last Admin: 01/02/20 11:12 Dose: 40 mg Documented by: Rosuvastatin Calcium (Crestor -) 10 mg PO HS [facility] Last Admin: 01/01/20 22:10 Dose: 10 mg Documented by: Sevelamer Carbonate (Renvela Powder Packet -) 0.8 gm PO TIDCM [facility] Last Admin: 01/02/20 13:31 Dose: Not Given Documented by: Silver Sulfadiazine (Silvadene -) 1 applic TP BID [facility] Last Admin: 01/02/20 11:13 Dose: 1 applic Documented by: - Objective Vital Signs: Vital Signs Temperature 97.9 F 01/02/20 06:00 Pulse Rate 62 01/02/20 06:00 Respiratory Rate 25 H 01/02/20 14:05 Blood Pressure 149/68 01/02/20 06:00 O2 Sat by Pulse Oximetry (%) 98 01/02/20 09:37 Constitutional: Yes: No Distress Eyes: Yes: Conjunctiva Clear Cardiovascular: Yes: Regular Rate and Rhythm, S1, S2 Respiratory: Yes: CTA Bilaterally Gastrointestinal: Yes: Soft. No: Tenderness Integumentary: Yes: Other (SCATTERRED DRY ULCERS) Labs: CBC, BMP 01/02/20 07:45 01/02/20 07:45 INR, PTT INR 1.14 (0.83-1.09) H 12/26/19 08:05 Assessment/Plan + BLOOD C/S MSSA PROBABLE SKIN SOURCE ACUTE RESP FAILURE PNEUMOMIA AZOTEMIA PLANTAR ULCER HEALED BULOUS PEMPHIGOID CEFAZOLIN DAY #26 REPEAT BC NO GROWTH ECHO NO VEGETATIONS PROGNOSIS POOR
[2020-01-02] MEDS: COLLAGENASE CLOSTRIDIUM HIST. 30 GRAMS TUBE TP SCH (18:49)
[2020-01-02] MEDS: ROSUVASTATIN CA 10 MG TABLET (FP) PO SCH (22:58)
[2020-01-03] MEDS: SEVELAMER CARBONATE 0.8 GM POWDER PACKET PO SCH ×3 (08:30→18:09)
[2020-01-03 09:00] LABS: BASO % 0.3 % (0-2.0); EOS % 1.7 % (0-4.5); HEMATOCRIT 23.1 % (35.4-49); HEMOGLOBIN 7.6 GM/dL (11.7-16.9); LYMPH % 21.5 % (8-40); MCH 29.9 pg (25.7-33.7); MCHC 33.1 g/dl (32.0-35.9); MEAN CELL VOLUME 90.5 fl (80-96); MEAN PLT VOLUME 7.8 fl (7.5-11.1); MONO % 11.3 % (3.8-10.2); NEUT % 65.2 % (42.8-82.8); PLATELET COUNT 110 K/MM3 (134-434); RBC 2.55 M/mm3 (4.00-5.60); WHITE BLOOD COUNT 4.5 K/mm3 (4.0-10.0)
[2020-01-03 09:27] LABS: ALBUMIN 1.9 g/dl (3.4-5.0); BILIRUBIN,TOTAL 0.6 mg/dL (0.2-1); BLOOD UREA NITROGEN 73.3 mg/dL (7-18); CALCIUM 8.3 mg/dL (8.5-10.1); CREATININE 1.9 mg/dL (0.55-1.3); POTASSIUM 3.9 mmol/L (3.5-5.1); TOT PROT 5.6 g/dl (6.4-8.2)
[2020-01-03] MEDS ORDERED: PT OWN MED DRAWER 7, Y5N ONE ×2 (10:47→20:28)
[2020-01-03] MEDS: levETIRAcetam 500 MG/5 ML INJECTION VIAL IVPB SCH ×2 (10:51→21:31)
[2020-01-03] MEDS: AMINO ACIDS/PROTEIN HYDROLYS 30 ML LIQUID.PKT PO SCH (10:51)
[2020-01-03] MEDS: PANTOPRAZOLE SODIUM 40 MG VIAL IVPUSH SCH (10:52)
[2020-01-03] MEDS: LEVOTHYROXINE SODIUM 100 MCG VIAL IVPUSH SCH (10:52)
[2020-01-03] MEDS: CEFAZOLIN 500 MG in DEXTROSE 5%-WATER - 50 ML IVPB SCH ×2 (10:52→21:30)
[2020-01-03] MEDS: MYCOPHENOLATE MOFETIL 200 MG/ML SUSPENSION NGT SCH ×2 (10:53→21:31)
[2020-01-03] MEDS: SILVER SULFADIAZINE 1% TOP CREAM 50 GM JAR TP SCH ×2 (10:54→21:55)
[2020-01-03] MEDS: COLLAGENASE CLOSTRIDIUM HIST. 30 GRAMS TUBE TP SCH (10:54)
--- NOTE | 2020-01-03 11:59 | PN ---
Progress Note, Physician - Current Medication List Current Medications: Active Medications Amino Acids (Prosource No Carb Liquid Pkt) 30 ml PO DAILY [facility] Last Admin: 01/03/20 10:51 Dose: 30 ml Documented by: Artificial Tears (Artificial Tears) 1 drop OU BID PRN PRN Reason: DRY EYES Collagenase (Santyl -) 1 applic TP DAILY [facility]; Protocol Last Admin: 01/03/20 10:54 Dose: 1 applic Documented by: IV Flush (Triple Lumen Flush) 4 ml IVPUSH PRN PRN PRN Reason: Protocol Cefazolin Sodium 500 mg/ (Dextrose) 50 mls @ 100 mls/hr IVPB BID [facility] Last Admin: 01/03/20 10:52 Dose: 100 mls/hr Documented by: Levetiracetam (Keppra Injection -) 500 mg IVPB BID [facility] Last Admin: 01/03/20 10:51 Dose: 500 mg Documented by: Levothyroxine Sodium (Synthroid Injection -) 20 mcg IVPUSH DAILY [facility] Last Admin: 01/03/20 10:52 Dose: 20 mcg Documented by: Mycophenolate Mofetil (Cellcept Suspension -) 500 mg NGT BID [facility] Last Admin: 01/03/20 10:53 Dose: 500 mg Documented by: Pantoprazole Sodium (Protonix Iv) 40 mg IVPUSH DAILY [facility] Last Admin: 01/03/20 10:52 Dose: 40 mg Documented by: Rosuvastatin Calcium (Crestor -) 10 mg PO HS [facility] Last Admin: 01/02/20 22:58 Dose: 10 mg Documented by: Sevelamer Carbonate (Renvela Powder Packet -) 0.8 gm PO TIDCM [facility] Last Admin: 01/03/20 08:30 Dose: 0.8 gm Documented by: Silver Sulfadiazine (Silvadene -) 1 applic TP BID [facility] Last Admin: 01/03/20 10:54 Dose: 1 applic Documented by: - Objective Vital Signs: Vital Signs Temperature 99.5 F 01/03/20 10:00 Pulse Rate 91 H 01/03/20 10:00 Respiratory Rate 24 H 01/03/20 10:00 Blood Pressure 147/73 01/03/20 10:00 O2 Sat by Pulse Oximetry (%) 100 01/03/20 10:00 Cardiovascular: Yes: S1, S2 Respiratory: Yes: Regular, CTA Bilaterally Gastrointestinal: Yes: Normal Bowel Sounds, Soft Labs: CBC, BMP 01/03/20 05:45 01/03/20 05:45 INR, PTT INR 1.14 (0.83-1.09) H 12/26/19 08:05 Problem List - Problems (1) Bullous pemphigoid Code(s): L12.0 - BULLOUS PEMPHIGOID (2) Caregiver unable to cope Code(s): Z74.8 - OTHER PROBLEMS RELATED TO CARE PROVIDER DEPENDENCY (3) Afib Code(s): I48.91 - UNSPECIFIED ATRIAL FIBRILLATION (4) Anemia Code(s): D64.9 - ANEMIA, UNSPECIFIED Qualifiers: Iron deficiency anemia type: chronic blood loss (5) CHF (congestive heart failure) Code(s): I50.9 - HEART FAILURE, UNSPECIFIED (6) Diabetes mellitus Code(s): E11.9 - TYPE 2 DIABETES MELLITUS WITHOUT COMPLICATIONS (7) Hypothyroidism Code(s): E03.9 - HYPOTHYROIDISM, UNSPECIFIED Assessment/Plan - Problems (1) Acute respiratory failure Assessment/Plan: -Mech vent -Pulmonary consult -IV Cefazolin -PEG placement feeding ongoing -dc ngt -Start feeds when placement is confirmed -Bronchodilators Problems reviewed: Yes Code(s): J96.00 - ACUTE RESPIRATORY FAILURE, UNSP W HYPOXIA OR HYPERCAPNIA (2) Bullous pemphigoid Assessment/Plan: -Cellcept restarted -Silvadene top Problems reviewed: Yes Code(s): L12.0 - BULLOUS PEMPHIGOID (3) Acute on chronic renal insufficiency Assessment/Plan: -Nephrology on board -monitor daily labs Problems reviewed: Yes Code(s): N28.9 - DISORDER OF KIDNEY AND URETER, UNSPECIFIED; N18.9 - CHRONIC KIDNEY DISEASE, UNSPECIFIED (4) Pneumonia Assessment/Plan: -Likely aspiration -CXR reviewed -COVID 19 PCR negative -IV abx -ID consult -Lactic acidosis noted Problems reviewed: Yes Code(s): J18.9 - PNEUMONIA, UNSPECIFIED ORGANISM (5) Afib Assessment/Plan: -Chronic, rate controlled -Eliquis Held due to acute GI bleed -Transfuse only if Hg <7.0 to avoid fluid overload Problems reviewed: Yes Code(s): I48.91 - UNSPECIFIED ATRIAL FIBRILLATION (6) Anemia Assessment/Plan: -Chronic -H/H stable at this time -workup last admission was negative -hematology consult -Transfuse only if hg<7.0 to avoid fluid overload. -Procrit as per hematology Problems reviewed: Yes Code(s): D64.9 - ANEMIA, UNSPECIFIED (7) Nutrition Assessment/Plan: -PEG placement done await IR clearnce then start feedings
--- NOTE | 2020-01-03 14:33 | PN ---
Progress Note (short form) - Note Progress Note: Problems 1. CKD 2. CHF 3. BPH 4. a. fib 5. CAD 6. epilepsy 7. proteinuria 8. anemia 9. foot ulcer 10. abd wall cellulitis 11. bullous pemphigoid 12. LETITIA 13. hyperkalemia 1. CKD 2. CHF 3. BPH 4. a. fib 5. CAD 6. epilepsy 7. proteinuria 8. anemia 9. foot ulcer 10. abd wall cellulitis 11. bullous pemphigoid 12. LETITIA 13. hyperkalemia 14. cardiac arrest 15. resp failure on vent 16. r/o aspiration Active Medications Amino Acids (Prosource No Carb Liquid Pkt) 30 ml PO DAILY [facility] Last Admin: 01/03/20 10:51 Dose: 30 ml Documented by: Artificial Tears (Artificial Tears) 1 drop OU BID PRN PRN Reason: DRY EYES Collagenase (Santyl -) 1 applic TP DAILY [facility]; Protocol Last Admin: 01/03/20 10:54 Dose: 1 applic Documented by: IV Flush (Triple Lumen Flush) 4 ml IVPUSH PRN PRN PRN Reason: Protocol Cefazolin Sodium 500 mg/ (Dextrose) 50 mls @ 100 mls/hr IVPB BID [facility] Last Admin: 01/03/20 10:52 Dose: 100 mls/hr Documented by: Levetiracetam (Keppra Injection -) 500 mg IVPB BID [facility] Last Admin: 01/03/20 10:51 Dose: 500 mg Documented by: Levothyroxine Sodium (Synthroid Injection -) 20 mcg IVPUSH DAILY [facility] Last Admin: 01/03/20 10:52 Dose: 20 mcg Documented by: Mycophenolate Mofetil (Cellcept Suspension -) 500 mg NGT BID [facility] Last Admin: 01/03/20 10:53 Dose: 500 mg Documented by: Pantoprazole Sodium (Protonix Iv) 40 mg IVPUSH DAILY [facility] Last Admin: 01/03/20 10:52 Dose: 40 mg Documented by: Rosuvastatin Calcium (Crestor -) 10 mg PO HS [facility] Last Admin: 01/02/20 22:58 Dose: 10 mg Documented by: Sevelamer Carbonate (Renvela Powder Packet -) 0.8 gm PO TIDCM [facility] Last Admin: 01/03/20 12:45 Dose: 0.8 gm Documented by: Silver Sulfadiazine (Silvadene -) 1 applic TP BID [facility] Last Admin: 01/03/20 10:54 Dose: 1 applic Documented by: Last Vital Signs Temp Pulse Resp BP Pulse Ox 99.5 F 91 H 25 H 147/73 100 01/03/20 10:00 01/03/20 11:56 01/03/20 14:23 01/03/20 10:00 01/03/20 14:23 alert in nad good appetite Lungs clear Heart reg Abd soft Ext no edema skin lesions diffus dry CBC, BMP 01/03/20 05:45 01/03/20 05:45 IMP s/p LETITIA CKD now stable continue same rx
--- NOTE | 2020-01-03 14:35 | PN ---
Progress Note (short form) - Note Progress Note: Drowsy but arousable on AC MOde of vent. Denies CP or SOB. No acute events overnight. Intake & Output 12/31/19 01/01/20 01/02/20 01/03/20 23:59 23:59 23:59 23:59 Intake Total 2031 460 600 740 Output Total 2100 2400 1100 Balance -68 -1940 -500 740 Weight 225 lb 3.2 oz 221 lb 5 oz 210 lb 6 oz 212 lb 12.8 oz Last Vital Signs Temp Pulse Resp BP Pulse Ox 99.5 F 91 H 25 H 147/73 100 01/03/20 10:00 01/03/20 11:56 01/03/20 14:23 01/03/20 10:00 01/03/20 14:23 Active Medications Amino Acids (Prosource No Carb Liquid Pkt) 30 ml PO DAILY [facility] Last Admin: 01/03/20 10:51 Dose: 30 ml Documented by: Artificial Tears (Artificial Tears) 1 drop OU BID PRN PRN Reason: DRY EYES Collagenase (Santyl -) 1 applic TP DAILY [facility]; Protocol Last Admin: 01/03/20 10:54 Dose: 1 applic Documented by: IV Flush (Triple Lumen Flush) 4 ml IVPUSH PRN PRN PRN Reason: Protocol Cefazolin Sodium 500 mg/ (Dextrose) 50 mls @ 100 mls/hr IVPB BID [facility] Last Admin: 01/03/20 10:52 Dose: 100 mls/hr Documented by: Levetiracetam (Keppra Injection -) 500 mg IVPB BID [facility] Last Admin: 01/03/20 10:51 Dose: 500 mg Documented by: Levothyroxine Sodium (Synthroid Injection -) 20 mcg IVPUSH DAILY [facility] Last Admin: 01/03/20 10:52 Dose: 20 mcg Documented by: Mycophenolate Mofetil (Cellcept Suspension -) 500 mg NGT BID [facility] Last Admin: 01/03/20 10:53 Dose: 500 mg Documented by: Pantoprazole Sodium (Protonix Iv) 40 mg IVPUSH DAILY [facility] Last Admin: 01/03/20 10:52 Dose: 40 mg Documented by: Rosuvastatin Calcium (Crestor -) 10 mg PO HS [facility] Last Admin: 01/02/20 22:58 Dose: 10 mg Documented by: Sevelamer Carbonate (Renvela Powder Packet -) 0.8 gm PO TIDCM [facility] Last Admin: 01/03/20 12:45 Dose: 0.8 gm Documented by: Silver Sulfadiazine (Silvadene -) 1 applic TP BID [facility] Last Admin: 01/03/20 10:54 Dose: 1 applic Documented by: Constitutional: Yes: Drowsy, NAD, Vented Eyes: Yes: WNL HENT: Yes: WNL Neck: Yes: WNL Cardiovascular: Yes: Pulse Irregular, S1, S2 Respiratory: Yes: Vented, Diminished, Rhonchi Gastrointestinal: Yes: Normal Bowel Sounds, Soft Extremities: Yes: WNL Edema: No Labs: Laboratory Results - last 24 hr 01/03/20 01/03/20 01/03/20 05:28 05:45 05:45 WBC 4.5 RBC 2.55 L Hgb 7.6 L Hct 23.1 L MCV 90.5 MCH 29.9 MCHC 33.1 RDW 15.0 Plt Count 110 L MPV 7.8 Absolute Neuts (auto) 2.9 Neutrophils % 65.2 Lymphocytes % 21.5 Monocytes % 11.3 H Eosinophils % 1.7 Basophils % 0.3 Nucleated RBC % 0 Sodium 146 H Potassium 3.9 Chloride 110 H Carbon Dioxide 24 Anion Gap 11 BUN 73.3 H Creatinine 1.9 H Est GFR (CKD-EPI)AfAm 37.22 Est GFR (CKD-EPI)NonAf 32.12 POC Glucometer 121 Random Glucose 116 H Calcium 8.3 L Total Bilirubin 0.6 AST 69 H ALT 24 Alkaline Phosphatase 149 H Total Protein 5.6 L Albumin 1.9 L Assessment/Plan Problem List - Problems (1) Bullous pemphigoid Code(s): L12.0 - BULLOUS PEMPHIGOID (2) Generalized weakness Code(s): R53.1 - WEAKNESS (3) Unable to ambulate Code(s): R26.2 - DIFFICULTY IN WALKING, NOT ELSEWHERE CLASSIFIED (4) Blisters of multiple sites Code(s): R23.8 - OTHER SKIN CHANGES (5) Abnormal liver enzymes Code(s): R74.8 - ABNORMAL LEVELS OF OTHER SERUM ENZYMES (6) Wound of foot Code(s): S91.309A - UNSPECIFIED OPEN WOUND, UNSPECIFIED FOOT, INITIAL ENCOUNTER (7) Afib Code(s): I48.91 - UNSPECIFIED ATRIAL FIBRILLATION (8) Anemia Code(s): D64.9 - ANEMIA, UNSPECIFIED Qualifiers: Iron deficiency anemia type: chronic blood loss (9) BPH (benign prostatic hyperplasia) Code(s): N40.0 - BENIGN PROSTATIC HYPERPLASIA WITHOUT LOWER URINRY TRACT SYMP (10) CAD (coronary artery disease) Code(s): I25.10 - ATHSCL HEART DISEASE OF [place] CORONARY ARTERY W/O ANG PCTRS (11) CHF (congestive heart failure) Code(s): I50.9 - HEART FAILURE, UNSPECIFIED (12) CKD (chronic kidney disease) Code(s): N18.9 - CHRONIC KIDNEY DISEASE, UNSPECIFIED (13) Diabetes mellitus Code(s): E11.9 - TYPE 2 DIABETES MELLITUS WITHOUT COMPLICATIONS (14) Diastolic CHF Code(s): I50.30 - UNSPECIFIED DIASTOLIC (CONGESTIVE) HEART FAILURE (15) Gastritis Code(s): K29.70 - GASTRITIS, UNSPECIFIED, WITHOUT BLEEDING (16) HTN (hypertension) Code(s): I10 - ESSENTIAL (PRIMARY) HYPERTENSION (17) History of colon cancer Code(s): Z85.038 - PERSONAL HISTORY OF MALIGNANT NEOPLASM OF LARGE INTESTINE (18) History of duodenal ulcer Code(s): Z87.19 - PERSONAL HISTORY OF OTHER DISEASES OF THE DIGESTIVE SYSTEM (19) Hyperlipidemia Code(s): E78.5 - HYPERLIPIDEMIA, UNSPECIFIED (20) Hypothyroid Code(s): E03.9 - HYPOTHYROIDISM, UNSPECIFIED (21) Paroxysmal atrial fibrillation Code(s): I48.0 - PAROXYSMAL ATRIAL FIBRILLATION (22) Peripheral arterial disease Code(s): I73.9 - PERIPHERAL VASCULAR DISEASE, UNSPECIFIED (23) Peripheral vascular disease Code(s): I73.9 - PERIPHERAL VASCULAR DISEASE, UNSPECIFIED (24) Pulmonary hypertension Code(s): I27.2 - OTHER SECONDARY PULMONARY HYPERTENSION * DO NOT USE * (25) Seizure Code(s): R56.9 - UNSPECIFIED CONVULSIONS (26) Seizure disorder Code(s): G40.909 - EPILEPSY, UNSP, NOT INTRACTABLE, WITHOUT STATUS EPILEPTICUS ASSESSMENT AND PLAN: s/p Cardiopulmonary Arrest Acute Hypoxic and Hypercapneic Respiratory Failure Likely Aspiration Pneumonia S/P Septic Shock Acute on Chronic Renal Failure improving Lactic Acidosis Bullous Pemphigoid CAD LV Diastolic Dysfunction Atrial Fibrillation Seizure Disorder h/o CVA Hypothyroidism Anemia Thrombocytopenia - ABX - monitor H/H - monitor urine output, creatinine - rate control - PRN MS & Ativan - continue volume assist control : Not ready for wean trials - enteral feeds : Will need PEG - DVT/GI prophylaxis - Lou Contreras Problem List - Problems (1) Bullous pemphigoid Code(s): L12.0 - BULLOUS PEMPHIGOID (2) Generalized weakness Code(s): R53.1 - WEAKNESS (3) Unable to ambulate Code(s): R26.2 - DIFFICULTY IN WALKING, NOT ELSEWHERE CLASSIFIED (4) Blisters of multiple sites Code(s): R23.8 - OTHER SKIN CHANGES (5) Abnormal liver enzymes Code(s): R74.8 - ABNORMAL LEVELS OF OTHER SERUM ENZYMES (6) Wound of foot Code(s): S91.309A - UNSPECIFIED OPEN WOUND, UNSPECIFIED FOOT, INITIAL ENCOUNTER (7) Afib Code(s): I48.91 - UNSPECIFIED ATRIAL FIBRILLATION (8) Anemia Code(s): D64.9 - ANEMIA, UNSPECIFIED Qualifiers: Qualified Code(s): D50.0 - Iron deficiency anemia secondary to blood loss (chronic) (9) BPH (benign prostatic hyperplasia) Code(s): N40.0 - BENIGN PROSTATIC HYPERPLASIA WITHOUT LOWER URINRY TRACT SYMP (10) CAD (coronary artery disease) Code(s): I25.10 - ATHSCL HEART DISEASE OF [place] CORONARY ARTERY W/O ANG PCTRS (11) CHF (congestive heart failure) Code(s): I50.9 - HEART FAILURE, UNSPECIFIED (12) CKD (chronic kidney disease) Code(s): N18.9 - CHRONIC KIDNEY DISEASE, UNSPECIFIED (13) Diabetes mellitus Code(s): E11.9 - TYPE 2 DIABETES MELLITUS WITHOUT COMPLICATIONS (14) Diastolic CHF Code(s): I50.30 - UNSPECIFIED DIASTOLIC (CONGESTIVE) HEART FAILURE (15) Gastritis Code(s): K29.70 - GASTRITIS, UNSPECIFIED, WITHOUT BLEEDING (16) HTN (hypertension) Code(s): I10 - ESSENTIAL (PRIMARY) HYPERTENSION (17) History of colon cancer Code(s): Z85.038 - PERSONAL HISTORY OF MALIGNANT NEOPLASM OF LARGE INTESTINE (18) History of duodenal ulcer Code(s): Z87.19 - PERSONAL HISTORY OF OTHER DISEASES OF THE DIGESTIVE SYSTEM (19) Hyperlipidemia Code(s): E78.5 - HYPERLIPIDEMIA, UNSPECIFIED (20) Hypothyroid Code(s): E03.9 - HYPOTHYROIDISM, UNSPECIFIED (21) Paroxysmal atrial fibrillation Code(s): I48.0 - PAROXYSMAL ATRIAL FIBRILLATION (22) Peripheral arterial disease Code(s): I73.9 - PERIPHERAL VASCULAR DISEASE, UNSPECIFIED (23) Peripheral vascular disease Code(s): I73.9 - PERIPHERAL VASCULAR DISEASE, UNSPECIFIED (24) Pulmonary hypertension Code(s): I27.2 - OTHER SECONDARY PULMONARY HYPERTENSION * DO NOT USE * (25) Seizure Code(s): R56.9 - UNSPECIFIED CONVULSIONS (26) Seizure disorder Code(s): G40.909 - EPILEPSY, UNSP, NOT INTRACTABLE, WITHOUT STATUS EPILEPTICUS
--- NOTE | 2020-01-03 15:37 | PN ---
Progress Note (short form) - Note Progress Note: PAtient seen and examined Vented Responding to simple commands Vital Signs Temperature 97.9 F 01/02/20 06:00 Pulse Rate 62 01/02/20 06:00 Respiratory Rate 22 H 01/02/20 09:37 Blood Pressure 149/68 01/02/20 06:00 O2 Sat by Pulse Oximetry (%) 98 01/02/20 09:37 Constitutional: Yes: Well Nourished, Calm Cardiovascular: Yes: Pulse Irregular, S1, S2 Respiratory: Yes: Diminished, Rhonchi Gastrointestinal: Yes: Normal Bowel Sounds, Soft Extremities: Yes: WNL Labs/Meds reviewed A/P 79 y.o. M w/ PMHx. HFpEF, afib, CAD s/p PCI, HTN, seizure d/o, CVA with right sided residual deficit, CKD, hypothyroidism, and bullous pemphigoid. s/p cardiopulmonary arrest (on 12/09/2019) and possible aspiration pneumonia. Admitted to ICU for acute hypoxic respiratory failure. He was anemic on 12/19 with Hb of 6.3 and received 3 U pRBCs. Hb has since stabilized and has not required further transfusions. Remains ventilator-dependent, not able to wean. Tracheostomy placed on 12/25. Pt. received 40k Procrit on 12/15/19 Anemia likely due to CRI and chronic disease. C/w weekly procrit per nephrology team
[2020-01-03] MEDS: ROSUVASTATIN CA 10 MG TABLET (FP) PO SCH (21:31)
[2020-01-04] MEDS: SEVELAMER CARBONATE 0.8 GM POWDER PACKET PO SCH ×3 (08:20→18:20)
[2020-01-04 09:06] LABS: BASO % 0.5 % (0-2.0); EOS % 1.6 % (0-4.5); HEMATOCRIT 21.6 % (35.4-49); HEMOGLOBIN 7.1 GM/dL (11.7-16.9); LYMPH % 22.5 % (8-40); MCH 29.5 pg (25.7-33.7); MCHC 32.8 g/dl (32.0-35.9); MEAN CELL VOLUME 89.9 fl (80-96); MEAN PLT VOLUME 7.5 fl (7.5-11.1); MONO % 11.1 % (3.8-10.2); NEUT % 64.3 % (42.8-82.8); PLATELET COUNT 123 K/MM3 (134-434); RBC 2.41 M/mm3 (4.00-5.60); RDW 15.4 % (11.9-15.9); WHITE BLOOD COUNT 4.2 K/mm3 (4.0-10.0)
[2020-01-04 09:40] LABS: ALBUMIN 1.9 g/dl (3.4-5.0); BILIRUBIN,TOTAL 0.4 mg/dL (0.2-1); BLOOD UREA NITROGEN 72.2 mg/dL (7-18); CALCIUM 7.7 mg/dL (8.5-10.1); CREATININE 1.9 mg/dL (0.55-1.3); POTASSIUM 3.6 mmol/L (3.5-5.1); TOT PROT 5.4 g/dl (6.4-8.2)
[2020-01-04] MEDS ORDERED: FUROSEMIDE 40 MG/4 ML INJECTABLE VIAL IVPUSH ONE (10:46)
[2020-01-04] MEDS: LEVOTHYROXINE SODIUM 100 MCG VIAL IVPUSH SCH (11:09)
[2020-01-04] MEDS: MYCOPHENOLATE MOFETIL 200 MG/ML SUSPENSION NGT SCH ×2 (11:09→22:03)
[2020-01-04] MEDS: CEFAZOLIN 500 MG in DEXTROSE 5%-WATER - 50 ML IVPB SCH ×2 (11:11→22:02)
[2020-01-04] MEDS: AMINO ACIDS/PROTEIN HYDROLYS 30 ML LIQUID.PKT PO SCH (11:12)
[2020-01-04] MEDS: SILVER SULFADIAZINE 1% TOP CREAM 50 GM JAR TP SCH ×2 (11:12→22:03)
[2020-01-04] MEDS: levETIRAcetam 500 MG/5 ML INJECTION VIAL IVPB SCH ×2 (11:12→22:00)
[2020-01-04] MEDS: COLLAGENASE CLOSTRIDIUM HIST. 30 GRAMS TUBE TP SCH (11:12)
[2020-01-04] MEDS: PANTOPRAZOLE SODIUM 40 MG VIAL IVPUSH SCH (11:12)
--- NOTE | 2020-01-04 11:33 | PN ---
Progress Note, Physician - Current Medication List Current Medications: Active Medications Amino Acids (Prosource No Carb Liquid Pkt) 30 ml PO DAILY [facility] Last Admin: 01/04/20 11:12 Dose: 30 ml Documented by: Artificial Tears (Artificial Tears) 1 drop OU BID PRN PRN Reason: DRY EYES Collagenase (Santyl -) 1 applic TP DAILY [facility]; Protocol Last Admin: 01/04/20 11:12 Dose: 1 applic Documented by: IV Flush (Triple Lumen Flush) 4 ml IVPUSH PRN PRN PRN Reason: Protocol Cefazolin Sodium 500 mg/ (Dextrose) 50 mls @ 100 mls/hr IVPB BID [facility] Last Admin: 01/04/20 11:11 Dose: 100 mls/hr Documented by: Levetiracetam (Keppra Injection -) 500 mg IVPB BID [facility] Last Admin: 01/04/20 11:12 Dose: 500 mg Documented by: Levothyroxine Sodium (Synthroid Injection -) 20 mcg IVPUSH DAILY [facility] Last Admin: 01/04/20 11:09 Dose: 20 mcg Documented by: Mycophenolate Mofetil (Cellcept Suspension -) 500 mg NGT BID [facility] Last Admin: 01/04/20 11:09 Dose: 500 mg Documented by: Pantoprazole Sodium (Protonix Iv) 40 mg IVPUSH DAILY [facility] Last Admin: 01/04/20 11:12 Dose: 40 mg Documented by: Rosuvastatin Calcium (Crestor -) 10 mg PO HS [facility] Last Admin: 01/03/20 21:31 Dose: 10 mg Documented by: Sevelamer Carbonate (Renvela Powder Packet -) 0.8 gm PO TIDCM [facility] Last Admin: 01/04/20 08:20 Dose: 0.8 gm Documented by: Silver Sulfadiazine (Silvadene -) 1 applic TP BID [facility] Last Admin: 01/04/20 11:12 Dose: 1 applic Documented by: - Objective Vital Signs: Vital Signs Temperature 99.6 F 01/04/20 10:00 Pulse Rate 78 01/04/20 10:00 Respiratory Rate 20 01/04/20 10:00 Blood Pressure 138/72 01/04/20 10:00 O2 Sat by Pulse Oximetry (%) 100 01/04/20 10:00 Cardiovascular: Yes: S1, S2 Respiratory: Yes: Mechanically Ventilated Gastrointestinal: Yes: Normal Bowel Sounds, Soft Labs: CBC, BMP 01/04/20 05:23 01/04/20 05:23 INR, PTT INR 1.14 (0.83-1.09) H 12/26/19 08:05 Problem List - Problems (1) Bullous pemphigoid Code(s): L12.0 - BULLOUS PEMPHIGOID (2) Caregiver unable to cope Code(s): Z74.8 - OTHER PROBLEMS RELATED TO CARE PROVIDER DEPENDENCY (3) Afib Code(s): I48.91 - UNSPECIFIED ATRIAL FIBRILLATION (4) Anemia Code(s): D64.9 - ANEMIA, UNSPECIFIED Qualifiers: Iron deficiency anemia type: chronic blood loss Qualified Code(s): D50.0 - Iron deficiency anemia secondary to blood loss (chronic) (5) CHF (congestive heart failure) Code(s): I50.9 - HEART FAILURE, UNSPECIFIED (6) Diabetes mellitus Code(s): E11.9 - TYPE 2 DIABETES MELLITUS WITHOUT COMPLICATIONS (7) Hypothyroidism Code(s): E03.9 - HYPOTHYROIDISM, UNSPECIFIED Assessment/Plan - Problems (1) Acute respiratory failure Assessment/Plan: -Mech vent -Pulmonary consult -IV Cefazolin -PEG placement feeding ongoing -dc ngt -Start feeds when placement is confirmed -Bronchodilators Problems reviewed: Yes Code(s): J96.00 - ACUTE RESPIRATORY FAILURE, UNSP W HYPOXIA OR HYPERCAPNIA (2) Bullous pemphigoid Assessment/Plan: -Cellcept restarted -Silvadene top Problems reviewed: Yes Code(s): L12.0 - BULLOUS PEMPHIGOID (3) Acute on chronic renal insufficiency Assessment/Plan: -Nephrology on board -monitor daily labs Problems reviewed: Yes Code(s): N28.9 - DISORDER OF KIDNEY AND URETER, UNSPECIFIED; N18.9 - CHRONIC KIDNEY DISEASE, UNSPECIFIED (4) Pneumonia Assessment/Plan: -Likely aspiration -CXR reviewed -COVID 19 PCR negative -IV abx -ID consult -Lactic acidosis noted Problems reviewed: Yes Code(s): J18.9 - PNEUMONIA, UNSPECIFIED ORGANISM (5) Afib Assessment/Plan: -Chronic, rate controlled -Eliquis Held due to acute GI bleed -Transfuse only if Hg <7.0 to avoid fluid overload Problems reviewed: Yes Code(s): I48.91 - UNSPECIFIED ATRIAL FIBRILLATION (6) Anemia Assessment/Plan: -Chronic -H/H doping--Transfuse PRBC -workup last admission was negative -hematology consult -Transfuse only if hg<7.0 to avoid fluid overload. -Procrit as per hematology Problems reviewed: Yes Code(s): D64.9 - ANEMIA, UNSPECIFIED (7) Nutrition Assessment/Plan: -PEG placement done await IR clearnce then start feedings
--- NOTE | 2020-01-04 13:37 | PN ---
Progress Note (short form) - Note Progress Note: Problems 1. CKD 2. CHF 3. BPH 4. a. fib 5. CAD 6. epilepsy 7. proteinuria 8. anemia 9. foot ulcer 10. abd wall cellulitis 11. bullous pemphigoid 12. LETITIA 13. hyperkalemia 14. cardiac arrest 15. resp failure on vent 16. r/o aspiration Active Medications Amino Acids (Prosource No Carb Liquid Pkt) 30 ml PO DAILY [facility] Last Admin: 01/04/20 11:12 Dose: 30 ml Documented by: Artificial Tears (Artificial Tears) 1 drop OU BID PRN PRN Reason: DRY EYES Collagenase (Santyl -) 1 applic TP DAILY [facility]; Protocol Last Admin: 01/04/20 11:12 Dose: 1 applic Documented by: IV Flush (Triple Lumen Flush) 4 ml IVPUSH PRN PRN PRN Reason: Protocol Cefazolin Sodium 500 mg/ (Dextrose) 50 mls @ 100 mls/hr IVPB BID [facility] Last Admin: 01/04/20 11:11 Dose: 100 mls/hr Documented by: Levetiracetam (Keppra Injection -) 500 mg IVPB BID [facility] Last Admin: 01/04/20 11:12 Dose: 500 mg Documented by: Levothyroxine Sodium (Synthroid Injection -) 20 mcg IVPUSH DAILY [facility] Last Admin: 01/04/20 11:09 Dose: 20 mcg Documented by: Mycophenolate Mofetil (Cellcept Suspension -) 500 mg NGT BID [facility] Last Admin: 01/04/20 11:09 Dose: 500 mg Documented by: Pantoprazole Sodium (Protonix Iv) 40 mg IVPUSH DAILY [facility] Last Admin: 01/04/20 11:12 Dose: 40 mg Documented by: Rosuvastatin Calcium (Crestor -) 10 mg PO HS [facility] Last Admin: 01/03/20 21:31 Dose: 10 mg Documented by: Sevelamer Carbonate (Renvela Powder Packet -) 0.8 gm PO TIDCM [facility] Last Admin: 01/04/20 13:00 Dose: 0.8 gm Documented by: Silver Sulfadiazine (Silvadene -) 1 applic TP BID [facility] Last Admin: 01/04/20 11:12 Dose: 1 applic Documented by: Last Vital Signs Temp Pulse Resp BP Pulse Ox 99.6 F 78 22 H 138/72 100 01/04/20 10:00 01/04/20 10:00 01/04/20 12:16 01/04/20 10:00 01/04/20 10:00 alert in nad good appetite Lungs clear Heart reg Abd soft Ext no edema skin lesions diffus dry CBC, BMP 01/04/20 05:23 01/04/20 05:23 CBC, BMP 01/03/20 05:45 01/03/20 05:45 IMP s/p LETITIA CKD now stable continue same rx
--- NOTE | 2020-01-04 14:04 | PN ---
Progress Note (short form) - Note Progress Note: Awake on AC MOde of vent. Denies CP or SOB. No acute events overnight. Intake & Output 01/01/20 01/02/20 01/03/20 01/04/20 23:59 23:59 23:59 23:59 Intake Total 106 497 3176 1060 Output Total 2400 1100 800 600 Balance -1940 -500 840 460 Weight 221 lb 5 oz 210 lb 6 oz 212 lb 12.8 oz 212 lb 6.4 oz Last Vital Signs Temp Pulse Resp BP Pulse Ox 99.6 F 78 22 H 138/72 100 01/04/20 10:00 01/04/20 10:00 01/04/20 12:16 01/04/20 10:00 01/04/20 10:00 Active Medications Amino Acids (Prosource No Carb Liquid Pkt) 30 ml PO DAILY MICHAEL Last Admin: 01/04/20 11:12 Dose: 30 ml Documented by: Artificial Tears (Artificial Tears) 1 drop OU BID PRN PRN Reason: DRY EYES Collagenase (Santyl -) 1 applic TP DAILY MICHAEL; Protocol Last Admin: 01/04/20 11:12 Dose: 1 applic Documented by: IV Flush (Triple Lumen Flush) 4 ml IVPUSH PRN PRN PRN Reason: Protocol Cefazolin Sodium 500 mg/ (Dextrose) 50 mls @ 100 mls/hr IVPB BID MICHAEL Last Admin: 01/04/20 11:11 Dose: 100 mls/hr Documented by: Levetiracetam (Keppra Injection -) 500 mg IVPB BID MICHAEL Last Admin: 01/04/20 11:12 Dose: 500 mg Documented by: Levothyroxine Sodium (Synthroid Injection -) 20 mcg IVPUSH DAILY MICHAEL Last Admin: 01/04/20 11:09 Dose: 20 mcg Documented by: Mycophenolate Mofetil (Cellcept Suspension -) 500 mg NGT BID MICHAEL Last Admin: 01/04/20 11:09 Dose: 500 mg Documented by: Pantoprazole Sodium (Protonix Iv) 40 mg IVPUSH DAILY MICHAEL Last Admin: 01/04/20 11:12 Dose: 40 mg Documented by: Rosuvastatin Calcium (Crestor -) 10 mg PO HS [facility] Last Admin: 01/03/20 21:31 Dose: 10 mg Documented by: Sevelamer Carbonate (Renvela Powder Packet -) 0.8 gm PO TIDCM [facility] Last Admin: 01/04/20 13:00 Dose: 0.8 gm Documented by: Silver Sulfadiazine (Silvadene -) 1 applic TP BID [facility] Last Admin: 01/04/20 11:12 Dose: 1 applic Documented by: Constitutional: Yes: Vented, NAD Eyes: Yes: WNL HENT: Yes: WNL Neck: Yes: WNL Cardiovascular: Yes: Pulse Irregular, S1, S2 Respiratory: Yes: Vented, Diminished, Rhonchi Gastrointestinal: Yes: Normal Bowel Sounds, Soft Extremities: Yes: WNL Edema: No Labs: Laboratory Results - last 24 hr 01/04/20 01/04/20 01/04/20 05:08 05:23 05:23 WBC 4.2 RBC 2.41 L Hgb 7.1 L Hct 21.6 L MCV 89.9 MCH 29.5 MCHC 32.8 RDW 15.4 Plt Count 123 L MPV 7.5 Absolute Neuts (auto) 2.7 Neutrophils % 64.3 Lymphocytes % 22.5 Monocytes % 11.1 H Eosinophils % 1.6 Basophils % 0.5 Nucleated RBC % 0 Sodium 145 Potassium 3.6 Chloride 110 H Carbon Dioxide 27 Anion Gap 9 BUN 72.2 H Creatinine 1.9 H Est GFR (CKD-EPI)AfAm 37.22 Est GFR (CKD-EPI)NonAf 32.12 POC Glucometer 142 Random Glucose 138 H Calcium 7.7 L Total Bilirubin 0.4 AST 38 H ALT 21 Alkaline Phosphatase 118 H Total Protein 5.4 L Albumin 1.9 L Blood Type Antibody Screen Crossmatch 01/04/20 11:17 WBC RBC Hgb Hct MCV MCH MCHC RDW Plt Count MPV Absolute Neuts (auto) Neutrophils % Lymphocytes % Monocytes % Eosinophils % Basophils % Nucleated RBC % Sodium Potassium Chloride Carbon Dioxide Anion Gap BUN Creatinine Est GFR (CKD-EPI)AfAm Est GFR (CKD-EPI)NonAf POC Glucometer Random Glucose Calcium Total Bilirubin AST ALT Alkaline Phosphatase Total Protein Albumin Blood Type B POSITIVE Antibody Screen Negative Crossmatch See Detail Assessment/Plan Problem List - Problems (1) Bullous pemphigoid Code(s): L12.0 - BULLOUS PEMPHIGOID (2) Generalized weakness Code(s): R53.1 - WEAKNESS (3) Unable to ambulate Code(s): R26.2 - DIFFICULTY IN WALKING, NOT ELSEWHERE CLASSIFIED (4) Blisters of multiple sites Code(s): R23.8 - OTHER SKIN CHANGES (5) Abnormal liver enzymes Code(s): R74.8 - ABNORMAL LEVELS OF OTHER SERUM ENZYMES (6) Wound of foot Code(s): S91.309A - UNSPECIFIED OPEN WOUND, UNSPECIFIED FOOT, INITIAL ENCOUNTER (7) Afib Code(s): I48.91 - UNSPECIFIED ATRIAL FIBRILLATION (8) Anemia Code(s): D64.9 - ANEMIA, UNSPECIFIED Qualifiers: Iron deficiency anemia type: chronic blood loss (9) BPH (benign prostatic hyperplasia) Code(s): N40.0 - BENIGN PROSTATIC HYPERPLASIA WITHOUT LOWER URINRY TRACT SYMP (10) CAD (coronary artery disease) Code(s): I25.10 - ATHSCL HEART DISEASE OF [place] CORONARY ARTERY W/O ANG PCTRS (11) CHF (congestive heart failure) Code(s): I50.9 - HEART FAILURE, UNSPECIFIED (12) CKD (chronic kidney disease) Code(s): N18.9 - CHRONIC KIDNEY DISEASE, UNSPECIFIED (13) Diabetes mellitus Code(s): E11.9 - TYPE 2 DIABETES MELLITUS WITHOUT COMPLICATIONS (14) Diastolic CHF Code(s): I50.30 - UNSPECIFIED DIASTOLIC (CONGESTIVE) HEART FAILURE (15) Gastritis Code(s): K29.70 - GASTRITIS, UNSPECIFIED, WITHOUT BLEEDING (16) HTN (hypertension) Code(s): I10 - ESSENTIAL (PRIMARY) HYPERTENSION (17) History of colon cancer Code(s): Z85.038 - PERSONAL HISTORY OF MALIGNANT NEOPLASM OF LARGE INTESTINE (18) History of duodenal ulcer Code(s): Z87.19 - PERSONAL HISTORY OF OTHER DISEASES OF THE DIGESTIVE SYSTEM (19) Hyperlipidemia Code(s): E78.5 - HYPERLIPIDEMIA, UNSPECIFIED (20) Hypothyroid Code(s): E03.9 - HYPOTHYROIDISM, UNSPECIFIED (21) Paroxysmal atrial fibrillation Code(s): I48.0 - PAROXYSMAL ATRIAL FIBRILLATION (22) Peripheral arterial disease Code(s): I73.9 - PERIPHERAL VASCULAR DISEASE, UNSPECIFIED (23) Peripheral vascular disease Code(s): I73.9 - PERIPHERAL VASCULAR DISEASE, UNSPECIFIED (24) Pulmonary hypertension Code(s): I27.2 - OTHER SECONDARY PULMONARY HYPERTENSION * DO NOT USE * (25) Seizure Code(s): R56.9 - UNSPECIFIED CONVULSIONS (26) Seizure disorder Code(s): G40.909 - EPILEPSY, UNSP, NOT INTRACTABLE, WITHOUT STATUS EPILEPTICUS ASSESSMENT AND PLAN: s/p Cardiopulmonary Arrest Acute Hypoxic and Hypercapneic Respiratory Failure Likely Aspiration Pneumonia S/P Septic Shock Acute on Chronic Renal Failure improving Lactic Acidosis Bullous Pemphigoid CAD LV Diastolic Dysfunction Atrial Fibrillation Seizure Disorder h/o CVA Hypothyroidism Anemia Thrombocytopenia - ABX - monitor H/H - monitor urine output, creatinine - rate control - PRN MS & Ativan - continue volume assist control : Hopefully move to wean trials shortly - enteral feeds : Will need PEG - DVT/GI prophylaxis - Lou Contreras Problem List - Problems (1) Bullous pemphigoid Code(s): L12.0 - BULLOUS PEMPHIGOID (2) Generalized weakness Code(s): R53.1 - WEAKNESS (3) Unable to ambulate Code(s): R26.2 - DIFFICULTY IN WALKING, NOT ELSEWHERE CLASSIFIED (4) Blisters of multiple sites Code(s): R23.8 - OTHER SKIN CHANGES (5) Abnormal liver enzymes Code(s): R74.8 - ABNORMAL LEVELS OF OTHER SERUM ENZYMES (6) Wound of foot Code(s): S91.309A - UNSPECIFIED OPEN WOUND, UNSPECIFIED FOOT, INITIAL ENCOUNTER (7) Afib Code(s): I48.91 - UNSPECIFIED ATRIAL FIBRILLATION (8) Anemia Code(s): D64.9 - ANEMIA, UNSPECIFIED Qualifiers: Iron deficiency anemia type: chronic blood loss (9) BPH (benign prostatic hyperplasia) Code(s): N40.0 - BENIGN PROSTATIC HYPERPLASIA WITHOUT LOWER URINRY TRACT SYMP (10) CAD (coronary artery disease) Code(s): I25.10 - ATHSCL HEART DISEASE OF [place] CORONARY ARTERY W/O ANG PCTRS (11) CHF (congestive heart failure) Code(s): I50.9 - HEART FAILURE, UNSPECIFIED (12) CKD (chronic kidney disease) Code(s): N18.9 - CHRONIC KIDNEY DISEASE, UNSPECIFIED (13) Diabetes mellitus Code(s): E11.9 - TYPE 2 DIABETES MELLITUS WITHOUT COMPLICATIONS (14) Diastolic CHF Code(s): I50.30 - UNSPECIFIED DIASTOLIC (CONGESTIVE) HEART FAILURE (15) Gastritis Code(s): K29.70 - GASTRITIS, UNSPECIFIED, WITHOUT BLEEDING (16) HTN (hypertension) Code(s): I10 - ESSENTIAL (PRIMARY) HYPERTENSION (17) History of colon cancer Code(s): Z85.038 - PERSONAL HISTORY OF MALIGNANT NEOPLASM OF LARGE INTESTINE (18) History of duodenal ulcer Code(s): Z87.19 - PERSONAL HISTORY OF OTHER DISEASES OF THE DIGESTIVE SYSTEM (19) Hyperlipidemia Code(s): E78.5 - HYPERLIPIDEMIA, UNSPECIFIED (20) Hypothyroid Code(s): E03.9 - HYPOTHYROIDISM, UNSPECIFIED (21) Paroxysmal atrial fibrillation Code(s): I48.0 - PAROXYSMAL ATRIAL FIBRILLATION (22) Peripheral arterial disease Code(s): I73.9 - PERIPHERAL VASCULAR DISEASE, UNSPECIFIED (23) Peripheral vascular disease Code(s): I73.9 - PERIPHERAL VASCULAR DISEASE, UNSPECIFIED (24) Pulmonary hypertension Code(s): I27.2 - OTHER SECONDARY PULMONARY HYPERTENSION * DO NOT USE * (25) Seizure Code(s): R56.9 - UNSPECIFIED CONVULSIONS (26) Seizure disorder Code(s): G40.909 - EPILEPSY, UNSP, NOT INTRACTABLE, WITHOUT STATUS EPILEPTICUS
[2020-01-04] MEDS ORDERED: PT OWN MED DRAWER 7, Y5N ONE ×2 (18:38→21:58)
[2020-01-04] MEDS: ROSUVASTATIN CA 10 MG TABLET (FP) PO SCH (22:03)
[2020-01-04] MEDS ORDERED: ACETAMINOPHEN 650 MG SUPP.RECT PR ONE (22:05)
[2020-01-04] MEDS ORDERED: ACETAMINOPHEN 1000 MG/100 ML VIAL (NON FORMULARY) IVPB ONE (23:27)
[2020-01-05 09:10] LABS: BASO % 0.3 % (0-2.0); EOS % 1.7 % (0-4.5); HEMATOCRIT 22.9 % (35.4-49); HEMOGLOBIN 7.4 GM/dL (11.7-16.9); LYMPH % 18.3 % (8-40); MCH 28.7 pg (25.7-33.7); MCHC 32.3 g/dl (32.0-35.9); MEAN CELL VOLUME 88.7 fl (80-96); MEAN PLT VOLUME 7.6 fl (7.5-11.1); MONO % 10.4 % (3.8-10.2); NEUT % 69.3 % (42.8-82.8); PLATELET COUNT 125 K/MM3 (134-434); RBC 2.58 M/mm3 (4.00-5.60); RDW 17.7 % (11.9-15.9); WHITE BLOOD COUNT 5.2 K/mm3 (4.0-10.0)
[2020-01-05 09:23] LABS: ALBUMIN 1.8 g/dl (3.4-5.0); BILIRUBIN,TOTAL 0.5 mg/dL (0.2-1); BLOOD UREA NITROGEN 76.8 mg/dL (7-18); CALCIUM 7.6 mg/dL (8.5-10.1); CREATININE 1.9 mg/dL (0.55-1.3); POTASSIUM 3.4 mmol/L (3.5-5.1); TOT PROT 5.2 g/dl (6.4-8.2)
[2020-01-05] MEDS ORDERED: PT OWN MED DRAWER 7, Y5N ONE ×2 (09:46→22:08)
[2020-01-05] MEDS: PANTOPRAZOLE SODIUM 40 MG VIAL IVPUSH SCH (10:14)
[2020-01-05] MEDS: SEVELAMER CARBONATE 0.8 GM POWDER PACKET PO SCH ×3 (10:14→17:24)
[2020-01-05] MEDS: AMINO ACIDS/PROTEIN HYDROLYS 30 ML LIQUID.PKT PO SCH (10:17)
[2020-01-05] MEDS: MYCOPHENOLATE MOFETIL 200 MG/ML SUSPENSION NGT SCH ×2 (10:17→22:24)
[2020-01-05] MEDS: levETIRAcetam 500 MG/5 ML INJECTION VIAL IVPB SCH ×2 (10:18→22:23)
[2020-01-05] MEDS: LEVOTHYROXINE SODIUM 100 MCG VIAL IVPUSH SCH (10:19)
[2020-01-05] MEDS: SILVER SULFADIAZINE 1% TOP CREAM 50 GM JAR TP SCH ×2 (10:20→22:24)
[2020-01-05] MEDS: COLLAGENASE CLOSTRIDIUM HIST. 30 GRAMS TUBE TP SCH (10:21)
[2020-01-05] MEDS: CEFAZOLIN 500 MG in DEXTROSE 5%-WATER - 50 ML IVPB SCH (10:55)
[2020-01-05] MEDS ORDERED: POTASSIUM CHLORIDE ORAL LIQUID 20 MEQ/15 ML GT ONE (12:02)
--- NOTE | 2020-01-05 12:04 | PN ---
Progress Note, Physician Chief Complaint: s/p Cardiopulmonary Arrest Acute Hypoxic and Hypercapneic Respiratory Failure Likely Aspiration Pneumonia Septic Shock Acute on Chronic Renal Failure Lactic Acidosis Bullous Pemphigoid CAD LV Diastolic Dysfunction Atrial Fibrillation Seizure Disorder h/o CVA Hypothyroidism Anemia Thrombocytopenia History of Present Illness: NAD Lethargic today, barely opens his eyes to sternal rub S/P PEG Has diarrhea now with rectal tube since TF is restarted- refeeding syndrome? with elevated LFT's now trending down - Current Medication List Current Medications: Active Medications Amino Acids (Prosource No Carb Liquid Pkt) 30 ml PO DAILY MICHAEL Last Admin: 01/05/20 10:17 Dose: 30 ml Documented by: Artificial Tears (Artificial Tears) 1 drop OU BID PRN PRN Reason: DRY EYES Collagenase (Santyl -) 1 applic TP DAILY MICHAEL; Protocol Last Admin: 01/05/20 10:21 Dose: 1 applic Documented by: IV Flush (Triple Lumen Flush) 4 ml IVPUSH PRN PRN PRN Reason: Protocol Cefazolin Sodium 500 mg/ (Dextrose) 50 mls @ 100 mls/hr IVPB BID MICHAEL Last Admin: 01/05/20 10:55 Dose: 100 mls/hr Documented by: Levetiracetam (Keppra Injection -) 500 mg IVPB BID MICHAEL Last Admin: 01/05/20 10:18 Dose: 500 mg Documented by: Levothyroxine Sodium (Synthroid Injection -) 20 mcg IVPUSH DAILY MICHAEL Last Admin: 01/05/20 10:19 Dose: 20 mcg Documented by: Mycophenolate Mofetil (Cellcept Suspension -) 500 mg NGT BID MICHAEL Last Admin: 01/05/20 10:17 Dose: 500 mg Documented by: Pantoprazole Sodium (Protonix Iv) 40 mg IVPUSH DAILY MICHAEL Last Admin: 01/05/20 10:14 Dose: 40 mg Documented by: Rosuvastatin Calcium (Crestor -) 10 mg PO HS [facility]EL Last Admin: 01/04/20 22:03 Dose: 10 mg Documented by: Sevelamer Carbonate (Renvela Powder Packet -) 0.8 gm PO TIDCM [facility]EL Last Admin: 01/05/20 10:14 Dose: 0.8 gm Documented by: Silver Sulfadiazine (Silvadene -) 1 applic TP BID MICHAEL Last Admin: 01/05/20 10:20 Dose: 1 applic Documented by: - Objective Vital Signs: Vital Signs Temperature 99.3 F 01/05/20 10:00 Pulse Rate 67 01/05/20 11:28 Respiratory Rate 24 H 01/05/20 11:28 Blood Pressure 160/95 01/05/20 10:00 O2 Sat by Pulse Oximetry (%) 100 01/05/20 11:30 Constitutional: Yes: Well Nourished, No Distress, Calm Cardiovascular: Yes: Regular Rate and Rhythm Respiratory: Yes: Regular, Mechanically Ventilated, Rhonchi (diffuse) Gastrointestinal: Yes: Normal Bowel Sounds, Soft, Abdomen, Obese Genitourinary: Yes: [place] Present Peripheral Pulses WNL: Yes Integumentary: Yes: Other (generalized skin tears+ bleeding blisters) Neurological: Yes: Pre-Existing Deficit Labs: CBC, BMP 01/05/20 07:15 01/05/20 07:15 INR, PTT INR 1.14 (0.83-1.09) H 12/26/19 08:05 Problem List - Problems (1) Acute respiratory failure Assessment/Plan: -Mech vent -Pulmonary consult -IV Cefazolin -S/P PEG placement -Continue TF -Bronchodilators Problems reviewed: Yes Code(s): J96.00 - ACUTE RESPIRATORY FAILURE, UNSP W HYPOXIA OR HYPERCAPNIA (2) Bullous pemphigoid Assessment/Plan: -Cellcept restarted -Silvadene top Problems reviewed: Yes Code(s): L12.0 - BULLOUS PEMPHIGOID (3) Acute on chronic renal insufficiency Assessment/Plan: -Nephrology on board -monitor daily labs Problems reviewed: Yes Code(s): N28.9 - DISORDER OF KIDNEY AND URETER, UNSPECIFIED; N18.9 - CHRONIC KIDNEY DISEASE, UNSPECIFIED (4) Pneumonia Assessment/Plan: -Likely aspiration -CXR reviewed -COVID 19 PCR negative -IV abx -ID consult -Lactic acidosis noted Problems reviewed: Yes Code(s): J18.9 - PNEUMONIA, UNSPECIFIED ORGANISM (5) Afib Assessment/Plan: -Chronic, rate controlled -Eliquis Held due to acute GI bleed -Transfuse only if Hg <7.0 to avoid fluid overload Problems reviewed: Yes Code(s): I48.91 - UNSPECIFIED ATRIAL FIBRILLATION (6) Anemia Assessment/Plan: -Chronic -H/H stable at this time -workup last admission was negative -hematology consult -Transfuse only if hg<7.0 to avoid fluid overload. -Procrit as per hematology Problems reviewed: Yes Code(s): D64.9 - ANEMIA, UNSPECIFIED (7) Diarrhea Assessment/Plan: -Refeeding syndrome? -Continue rectal tube for now -Check Cdiff PCR Problems reviewed: Yes Code(s): R19.7 - DIARRHEA, UNSPECIFIED Assessment/Plan See problem list GI PPX
--- NOTE | 2020-01-05 13:07 | PN ---
Progress Note (short form) - Note Progress Note: Awake on AC MOde of vent. Denies CP or SOB. No acute events overnight. Intake & Output 01/02/20 01/03/20 01/04/20 01/05/20 23:59 23:59 23:59 23:59 Intake Total 600 1640 1370 900 Output Total 1100 800 600 Balance -500 840 770 900 Weight 210 lb 6 oz 212 lb 12.8 oz 212 lb 6.4 oz 221 lb 9 oz Last Vital Signs Temp Pulse Resp BP Pulse Ox 99.3 F 67 24 H 160/95 100 01/05/20 10:00 01/05/20 11:28 01/05/20 11:28 01/05/20 10:00 01/05/20 11:30 Active Medications Acetaminophen (Tylenol Oral Solution -) 650 mg GT Q4H PRN PRN Reason: PAIN Amino Acids (Prosource No Carb Liquid Pkt) 30 ml PO DAILY MICHAEL Last Admin: 01/05/20 10:17 Dose: 30 ml Documented by: Artificial Tears (Artificial Tears) 1 drop OU BID PRN PRN Reason: DRY EYES Banana Based Medical Food (Banatrol Plus Powder Packet) 1 packet PO TID MICHAEL Collagenase (Santyl -) 1 applic TP DAILY MICHAEL; Protocol Last Admin: 01/05/20 10:21 Dose: 1 applic Documented by: IV Flush (Triple Lumen Flush) 4 ml IVPUSH PRN PRN PRN Reason: Protocol Cefazolin Sodium 500 mg/ (Dextrose) 50 mls @ 100 mls/hr IVPB BID MICHAEL Last Admin: 01/05/20 10:55 Dose: 100 mls/hr Documented by: Levetiracetam (Keppra Injection -) 500 mg IVPB BID MICHAEL Last Admin: 01/05/20 10:18 Dose: 500 mg Documented by: Levothyroxine Sodium (Synthroid Injection -) 20 mcg IVPUSH DAILY MICHAEL Last Admin: 01/05/20 10:19 Dose: 20 mcg Documented by: Mycophenolate Mofetil (Cellcept Suspension -) 500 mg NGT BID MICHAEL Last Admin: 01/05/20 10:17 Dose: 500 mg Documented by: Pantoprazole Sodium (Protonix Iv) 40 mg IVPUSH DAILY MICHAEL Last Admin: 01/05/20 10:14 Dose: 40 mg Documented by: Rosuvastatin Calcium (Crestor -) 10 mg PO HS [facility] Last Admin: 01/04/20 22:03 Dose: 10 mg Documented by: Sevelamer Carbonate (Renvela Powder Packet -) 0.8 gm PO TIDCM [facility] Last Admin: 01/05/20 10:14 Dose: 0.8 gm Documented by: Silver Sulfadiazine (Silvadene -) 1 applic TP BID [facility] Last Admin: 01/05/20 10:20 Dose: 1 applic Documented by: Constitutional: Yes: Vented, NAD Eyes: Yes: WNL HENT: Yes: WNL Neck: Yes: WNL Cardiovascular: Yes: Pulse Irregular, S1, S2 Respiratory: Yes: Vented, Diminished, Rhonchi Gastrointestinal: Yes: Normal Bowel Sounds, Soft Extremities: Yes: WNL Edema: No Labs: Laboratory Results - last 24 hr 01/04/20 01/05/20 01/05/20 11:17 07:02 07:15 WBC 5.2 RBC 2.58 L Hgb 7.4 L Hct 22.9 L MCV 88.7 MCH 28.7 MCHC 32.3 RDW 17.7 H Plt Count 125 L MPV 7.6 Absolute Neuts (auto) 3.6 Neutrophils % 69.3 Lymphocytes % 18.3 Monocytes % 10.4 H Eosinophils % 1.7 Basophils % 0.3 Nucleated RBC % 0 Sodium Potassium Chloride Carbon Dioxide Anion Gap BUN Creatinine Est GFR (CKD-EPI)AfAm Est GFR (CKD-EPI)NonAf POC Glucometer 121 Random Glucose Calcium Total Bilirubin AST ALT Alkaline Phosphatase Total Protein Albumin Blood Type B POSITIVE Antibody Screen Negative Crossmatch See Detail 01/05/20 07:15 WBC RBC Hgb Hct MCV MCH MCHC RDW Plt Count MPV Absolute Neuts (auto) Neutrophils % Lymphocytes % Monocytes % Eosinophils % Basophils % Nucleated RBC % Sodium 141 Potassium 3.4 L Chloride 108 H Carbon Dioxide 27 Anion Gap 7 L BUN 76.8 H Creatinine 1.9 H Est GFR (CKD-EPI)AfAm 37.22 Est GFR (CKD-EPI)NonAf 32.12 POC Glucometer Random Glucose 120 H Calcium 7.6 L Total Bilirubin 0.5 AST 28 ALT 6 L Alkaline Phosphatase 104 Total Protein 5.2 L Albumin 1.8 L Blood Type Antibody Screen Crossmatch Assessment/Plan Problem List - Problems (1) Bullous pemphigoid Code(s): L12.0 - BULLOUS PEMPHIGOID (2) Generalized weakness Code(s): R53.1 - WEAKNESS (3) Unable to ambulate Code(s): R26.2 - DIFFICULTY IN WALKING, NOT ELSEWHERE CLASSIFIED (4) Blisters of multiple sites Code(s): R23.8 - OTHER SKIN CHANGES (5) Abnormal liver enzymes Code(s): R74.8 - ABNORMAL LEVELS OF OTHER SERUM ENZYMES (6) Wound of foot Code(s): S91.309A - UNSPECIFIED OPEN WOUND, UNSPECIFIED FOOT, INITIAL ENCOUNTER (7) Afib Code(s): I48.91 - UNSPECIFIED ATRIAL FIBRILLATION (8) Anemia Code(s): D64.9 - ANEMIA, UNSPECIFIED Qualifiers: Iron deficiency anemia type: chronic blood loss (9) BPH (benign prostatic hyperplasia) Code(s): N40.0 - BENIGN PROSTATIC HYPERPLASIA WITHOUT LOWER URINRY TRACT SYMP (10) CAD (coronary artery disease) Code(s): I25.10 - ATHSCL HEART DISEASE OF [place] CORONARY ARTERY W/O ANG PCTRS (11) CHF (congestive heart failure) Code(s): I50.9 - HEART FAILURE, UNSPECIFIED (12) CKD (chronic kidney disease) Code(s): N18.9 - CHRONIC KIDNEY DISEASE, UNSPECIFIED (13) Diabetes mellitus Code(s): E11.9 - TYPE 2 DIABETES MELLITUS WITHOUT COMPLICATIONS (14) Diastolic CHF Code(s): I50.30 - UNSPECIFIED DIASTOLIC (CONGESTIVE) HEART FAILURE (15) Gastritis Code(s): K29.70 - GASTRITIS, UNSPECIFIED, WITHOUT BLEEDING (16) HTN (hypertension) Code(s): I10 - ESSENTIAL (PRIMARY) HYPERTENSION (17) History of colon cancer Code(s): Z85.038 - PERSONAL HISTORY OF MALIGNANT NEOPLASM OF LARGE INTESTINE (18) History of duodenal ulcer Code(s): Z87.19 - PERSONAL HISTORY OF OTHER DISEASES OF THE DIGESTIVE SYSTEM (19) Hyperlipidemia Code(s): E78.5 - HYPERLIPIDEMIA, UNSPECIFIED (20) Hypothyroid Code(s): E03.9 - HYPOTHYROIDISM, UNSPECIFIED (21) Paroxysmal atrial fibrillation Code(s): I48.0 - PAROXYSMAL ATRIAL FIBRILLATION (22) Peripheral arterial disease Code(s): I73.9 - PERIPHERAL VASCULAR DISEASE, UNSPECIFIED (23) Peripheral vascular disease Code(s): I73.9 - PERIPHERAL VASCULAR DISEASE, UNSPECIFIED (24) Pulmonary hypertension Code(s): I27.2 - OTHER SECONDARY PULMONARY HYPERTENSION * DO NOT USE * (25) Seizure Code(s): R56.9 - UNSPECIFIED CONVULSIONS (26) Seizure disorder Code(s): G40.909 - EPILEPSY, UNSP, NOT INTRACTABLE, WITHOUT STATUS EPILEPTICUS ASSESSMENT AND PLAN: s/p Cardiopulmonary Arrest Acute Hypoxic and Hypercapneic Respiratory Failure Likely Aspiration Pneumonia S/P Septic Shock Acute on Chronic Renal Failure improving Lactic Acidosis Bullous Pemphigoid CAD LV Diastolic Dysfunction Atrial Fibrillation Seizure Disorder h/o CVA Hypothyroidism Anemia Thrombocytopenia - ABX - monitor H/H - monitor urine output, creatinine - rate control - PRN MS & Ativan - continue volume assist control : Hopefully move to wean trials shortly - enteral feeds : Will need PEG - DVT/GI prophylaxis - Lou Contreras Problem List - Problems (1) Bullous pemphigoid Code(s): L12.0 - BULLOUS PEMPHIGOID (2) Generalized weakness Code(s): R53.1 - WEAKNESS (3) Unable to ambulate Code(s): R26.2 - DIFFICULTY IN WALKING, NOT ELSEWHERE CLASSIFIED (4) Blisters of multiple sites Code(s): R23.8 - OTHER SKIN CHANGES (5) Abnormal liver enzymes Code(s): R74.8 - ABNORMAL LEVELS OF OTHER SERUM ENZYMES (6) Wound of foot Code(s): S91.309A - UNSPECIFIED OPEN WOUND, UNSPECIFIED FOOT, INITIAL ENCOUNTER (7) Afib Code(s): I48.91 - UNSPECIFIED ATRIAL FIBRILLATION (8) Anemia Code(s): D64.9 - ANEMIA, UNSPECIFIED Qualifiers: Iron deficiency anemia type: chronic blood loss (9) BPH (benign prostatic hyperplasia) Code(s): N40.0 - BENIGN PROSTATIC HYPERPLASIA WITHOUT LOWER URINRY TRACT SYMP (10) CAD (coronary artery disease) Code(s): I25.10 - ATHSCL HEART DISEASE OF [place] CORONARY ARTERY W/O ANG PCTRS (11) CHF (congestive heart failure) Code(s): I50.9 - HEART FAILURE, UNSPECIFIED (12) CKD (chronic kidney disease) Code(s): N18.9 - CHRONIC KIDNEY DISEASE, UNSPECIFIED (13) Diabetes mellitus Code(s): E11.9 - TYPE 2 DIABETES MELLITUS WITHOUT COMPLICATIONS (14) Diastolic CHF Code(s): I50.30 - UNSPECIFIED DIASTOLIC (CONGESTIVE) HEART FAILURE (15) Gastritis Code(s): K29.70 - GASTRITIS, UNSPECIFIED, WITHOUT BLEEDING (16) HTN (hypertension) Code(s): I10 - ESSENTIAL (PRIMARY) HYPERTENSION (17) History of colon cancer Code(s): Z85.038 - PERSONAL HISTORY OF MALIGNANT NEOPLASM OF LARGE INTESTINE (18) History of duodenal ulcer Code(s): Z87.19 - PERSONAL HISTORY OF OTHER DISEASES OF THE DIGESTIVE SYSTEM (19) Hyperlipidemia Code(s): E78.5 - HYPERLIPIDEMIA, UNSPECIFIED (20) Hypothyroid Code(s): E03.9 - HYPOTHYROIDISM, UNSPECIFIED (21) Paroxysmal atrial fibrillation Code(s): I48.0 - PAROXYSMAL ATRIAL FIBRILLATION (22) Peripheral arterial disease Code(s): I73.9 - PERIPHERAL VASCULAR DISEASE, UNSPECIFIED (23) Peripheral vascular disease Code(s): I73.9 - PERIPHERAL VASCULAR DISEASE, UNSPECIFIED (24) Pulmonary hypertension Code(s): I27.2 - OTHER SECONDARY PULMONARY HYPERTENSION * DO NOT USE * (25) Seizure Code(s): R56.9 - UNSPECIFIED CONVULSIONS (26) Seizure disorder Code(s): G40.909 - EPILEPSY, UNSP, NOT INTRACTABLE, WITHOUT STATUS EPILEPTICUS
--- NOTE | 2020-01-05 13:42 | PN ---
Progress Note, Physician History of Present Illness: Pt seen and examined at bedside. No great change in status. Pt now has diarrhea. - Current Medication List Current Medications: Active Medications Acetaminophen (Tylenol Oral Solution -) 650 mg GT Q4H PRN PRN Reason: PAIN Amino Acids (Prosource No Carb Liquid Pkt) 30 ml PO DAILY MICHAEL Last Admin: 01/05/20 10:17 Dose: 30 ml Documented by: Artificial Tears (Artificial Tears) 1 drop OU BID PRN PRN Reason: DRY EYES Banana Based Medical Food (Banatrol Plus Powder Packet) 1 packet PO TID MICHAEL Collagenase (Santyl -) 1 applic TP DAILY MICHAEL; Protocol Last Admin: 01/05/20 10:21 Dose: 1 applic Documented by: IV Flush (Triple Lumen Flush) 4 ml IVPUSH PRN PRN PRN Reason: Protocol Cefazolin Sodium 500 mg/ (Dextrose) 50 mls @ 100 mls/hr IVPB BID MICHAEL Last Admin: 01/05/20 10:55 Dose: 100 mls/hr Documented by: Levetiracetam (Keppra Injection -) 500 mg IVPB BID MICHAEL Last Admin: 01/05/20 10:18 Dose: 500 mg Documented by: Levothyroxine Sodium (Synthroid Injection -) 20 mcg IVPUSH DAILY MICHAEL Last Admin: 01/05/20 10:19 Dose: 20 mcg Documented by: Mycophenolate Mofetil (Cellcept Suspension -) 500 mg NGT BID MICHAEL Last Admin: 01/05/20 10:17 Dose: 500 mg Documented by: Pantoprazole Sodium (Protonix Iv) 40 mg IVPUSH DAILY MICHAEL Last Admin: 01/05/20 10:14 Dose: 40 mg Documented by: Rosuvastatin Calcium (Crestor -) 10 mg PO HS MICHAEL Last Admin: 01/04/20 22:03 Dose: 10 mg Documented by: Sevelamer Carbonate (Renvela Powder Packet -) 0.8 gm PO TIDCM MICHAEL Last Admin: 01/05/20 12:53 Dose: 0.8 gm Documented by: Silver Sulfadiazine (Silvadene -) 1 applic TP BID MICHAEL Last Admin: 01/05/20 10:20 Dose: 1 applic Documented by: - Objective Vital Signs: Vital Signs Temperature 99.3 F 01/05/20 10:00 Pulse Rate 67 01/05/20 11:28 Respiratory Rate 24 H 01/05/20 11:28 Blood Pressure 160/95 01/05/20 10:00 O2 Sat by Pulse Oximetry (%) 100 01/05/20 11:30 Constitutional: Yes: Calm Eyes: Yes: Conjunctiva Clear HENT: Yes: Atraumatic Neck: Yes: Supple Cardiovascular: Yes: S1, S2 Respiratory: Yes: CTA Bilaterally Gastrointestinal: Yes: Soft Genitourinary: Yes: [place] Present Musculoskeletal: Yes: Muscle Weakness Edema: No Integumentary: Yes: Other (bullous pemhigoid) Neurological: Yes: Confusion Labs: CBC, BMP 01/05/20 07:15 01/05/20 07:15 INR, PTT INR 1.14 (0.83-1.09) H 12/26/19 08:05 Problem List - Problems (1) Acute respiratory failure Code(s): J96.00 - ACUTE RESPIRATORY FAILURE, UNSP W HYPOXIA OR HYPERCAPNIA (2) Bullous pemphigoid Code(s): L12.0 - BULLOUS PEMPHIGOID Assessment/Plan Current Medications Generic Name Dose Route Start Last Admin Trade Name Freq PRN Reason Stop Dose Admin Acetaminophen 650 mg 01/05/20 12:12 Tylenol Oral Solution - GT Q4H PRN PAIN Amino Acids 30 ml 12/31/19 10:00 01/05/20 10:17 Prosource No Carb Liquid Pkt PO 30 ml DAILY MICHAEL Administration Artificial Tears 1 drop 12/30/19 14:58 Artificial Tears OU BID PRN DRY EYES Banana Based Medical Food 1 packet 01/05/20 14:00 Banatrol Plus Powder Packet PO TID MICHAEL Collagenase 1 applic 01/02/20 10:45 01/05/20 10:21 Santyl - TP 1 applic DAILY MICHAEL Administration Protocol IV Flush 4 ml 12/31/19 13:49 Triple Lumen Flush IVPUSH PRN PRN Protocol Cefazolin Sodium 500 mg/ 50 mls @ 100 mls/hr 12/30/19 22:00 01/05/20 10:55 Dextrose IVPB 100 mls/hr BID MICHAEL Administration Levetiracetam 500 mg 12/30/19 22:00 01/05/20 10:18 Keppra Injection - IVPB 500 mg BID MICHAEL Administration Levothyroxine Sodium 20 mcg 12/31/19 10:00 01/05/20 10:19 Synthroid Injection - IVPUSH 20 mcg DAILY MICHAEL Administration Mycophenolate Mofetil 500 mg 12/31/19 22:00 01/05/20 10:17 Cellcept Suspension - NGT 500 mg BID MICHAEL Administration Pantoprazole Sodium 40 mg 12/31/19 10:00 01/05/20 10:14 Protonix Iv IVPUSH 40 mg DAILY MICHAEL Administration Rosuvastatin Calcium 10 mg 12/30/19 22:00 01/04/20 22:03 Crestor - PO 10 mg HS MICHAEL Administration Sevelamer Carbonate 0.8 gm 12/30/19 17:30 01/05/20 12:53 Renvela Powder Packet - PO 0.8 gm TIDCM MICHAEL Administration Silver Sulfadiazine 1 applic 12/30/19 22:00 01/05/20 10:20 Silvadene - TP 1 applic BID MICHAEL Administration Impression 1. CKD 2. CHF 3. BPH 4. a. fib 5. CAD 6. epilepsy 7. proteinuria 8. anemia 9. foot ulcer 10. abd wall cellulitis 11. bullous pemphigoid 12. LETITIA 13. hyperkalemia 14. cardiac arrest 15. resp failure on vent 16. r/o aspiration Plan - replace potassium - hold off lasix for now as he has diarrhea - cellcept for bullous pemphigoid - cont to monitor renal function - cont wound care
[2020-01-05] MEDS: BANATROL PLUS POWDER PACKET PO SCH ×2 (14:24→22:23)
--- NOTE | 2020-01-05 15:51 | PN ---
Progress Note, Physician History of Present Illness: LETHARGIC BUT ABLE TO NOD TO QUESTIONING INDICATES NO PAIN FEVER NOTED + LOOSE STOOL COMPLETED COURSE OF TX FOR STAPH BACTEREMIA WBC WNL AZOTEMIA PLT COUNT IMPROVED BC MSSA (12/06) BC (12/07) NO GROWTH - Current Medication List Current Medications: Active Medications Acetaminophen (Tylenol Oral Solution -) 650 mg GT Q4H PRN PRN Reason: PAIN Amino Acids (Prosource No Carb Liquid Pkt) 30 ml PO DAILY MICHAEL Last Admin: 01/05/20 10:17 Dose: 30 ml Documented by: Artificial Tears (Artificial Tears) 1 drop OU BID PRN PRN Reason: DRY EYES Banana Based Medical Food (Banatrol Plus Powder Packet) 1 packet PO TID [facility] Last Admin: 01/05/20 14:24 Dose: 1 packet Documented by: Collagenase (Santyl -) 1 applic TP DAILY MICHAEL; Protocol Last Admin: 01/05/20 10:21 Dose: 1 applic Documented by: IV Flush (Triple Lumen Flush) 4 ml IVPUSH PRN PRN PRN Reason: Protocol Cefazolin Sodium 500 mg/ (Dextrose) 50 mls @ 100 mls/hr IVPB BID MICHAEL Last Admin: 01/05/20 10:55 Dose: 100 mls/hr Documented by: Levetiracetam (Keppra Injection -) 500 mg IVPB BID MICHAEL Last Admin: 01/05/20 10:18 Dose: 500 mg Documented by: Levothyroxine Sodium (Synthroid Injection -) 20 mcg IVPUSH DAILY MICHAEL Last Admin: 01/05/20 10:19 Dose: 20 mcg Documented by: Mycophenolate Mofetil (Cellcept Suspension -) 500 mg NGT BID MICHAEL Last Admin: 01/05/20 10:17 Dose: 500 mg Documented by: Pantoprazole Sodium (Protonix Iv) 40 mg IVPUSH DAILY MICHAEL Last Admin: 01/05/20 10:14 Dose: 40 mg Documented by: Rosuvastatin Calcium (Crestor -) 10 mg PO HS MICHAEL Last Admin: 01/04/20 22:03 Dose: 10 mg Documented by: Sevelamer Carbonate (Renvela Powder Packet -) 0.8 gm PO TIDCM MICHAEL Last Admin: 01/05/20 12:53 Dose: 0.8 gm Documented by: Silver Sulfadiazine (Silvadene -) 1 applic TP BID MICHAEL Last Admin: 01/05/20 10:20 Dose: 1 applic Documented by: - Objective Vital Signs: Vital Signs Temperature 99.4 F 01/05/20 14:00 Pulse Rate 67 01/05/20 14:00 Respiratory Rate 25 H 01/05/20 14:00 Blood Pressure 163/69 01/05/20 14:00 O2 Sat by Pulse Oximetry (%) 100 01/05/20 14:00 Constitutional: Yes: No Distress Eyes: Yes: Conjunctiva Clear Cardiovascular: Yes: Regular Rate and Rhythm, S1, S2 Respiratory: Yes: Diminished Gastrointestinal: Yes: Normal Bowel Sounds, Soft. No: Tenderness Edema: Yes Labs: CBC, BMP 01/05/20 07:15 01/05/20 07:15 INR, PTT INR 1.14 (0.83-1.09) H 12/26/19 08:05 Assessment/Plan + BLOOD C/S MSSA COMPLETED 28D COURSE TX PROBABLE SKIN SOURCE ACUTE RESP FAILURE PNEUMOMIA AZOTEMIA PLANTAR ULCER HEALED BULOUS PEMPHIGOID RECURRENT FEVER REPEAT C/S CHECK STOOL C DIFFICILE D/C CEFAZOLIN
[2020-01-05] MEDS: ACETAMINOPHEN 650 MG/20.3 ML ORAL SOLUTION (CUPS) GT PRN (22:23)
[2020-01-05] MEDS: ROSUVASTATIN CA 10 MG TABLET (FP) PO SCH (22:24)
[2020-01-06] MEDS ORDERED: PT OWN MED DRAWER 7, Y5N ONE ×3 (05:13→22:57)
[2020-01-06] MEDS ORDERED: INSULIN (NOVOLOG) ASPART 100 UNITS/ML 10ML VIAL ONE (05:13)
[2020-01-06] MEDS: BANATROL PLUS POWDER PACKET PO SCH ×3 (05:15→23:00)
[2020-01-06 08:32] LABS: BASO % 0.4 % (0-2.0); EOS % 1.8 % (0-4.5); HEMOGLOBIN 7.8 GM/dL (11.7-16.9); LYMPH % 18.2 % (8-40); MCH 28.3 pg (25.7-33.7); MCHC 32.6 g/dl (32.0-35.9); MEAN PLT VOLUME 7.7 fl (7.5-11.1); MONO % 9.2 % (3.8-10.2); NEUT % 70.4 % (42.8-82.8); PLATELET COUNT 156 K/MM3 (134-434); RBC 2.75 M/mm3 (4.00-5.60); RDW 17.4 % (11.9-15.9); WHITE BLOOD COUNT 6.7 K/mm3 (4.0-10.0)
[2020-01-06 09:01] LABS: BILIRUBIN,TOTAL 0.4 mg/dL (0.2-1); BLOOD UREA NITROGEN 78.8 mg/dL (7-18); CALCIUM 7.8 mg/dL (8.5-10.1); CREATININE 1.8 mg/dL (0.55-1.3); POTASSIUM 4.1 mmol/L (3.5-5.1); TOT PROT 5.6 g/dl (6.4-8.2)
[2020-01-06] MEDS: SEVELAMER CARBONATE 0.8 GM POWDER PACKET PO SCH ×3 (09:53→18:00)
[2020-01-06] MEDS: SILVER SULFADIAZINE 1% TOP CREAM 50 GM JAR TP SCH ×2 (09:54→23:01)
[2020-01-06] MEDS: COLLAGENASE CLOSTRIDIUM HIST. 30 GRAMS TUBE TP SCH (09:54)
[2020-01-06] MEDS: AMINO ACIDS/PROTEIN HYDROLYS 30 ML LIQUID.PKT PO SCH (09:54)
[2020-01-06] MEDS: PANTOPRAZOLE SODIUM 40 MG VIAL IVPUSH SCH (09:54)
[2020-01-06] MEDS: levETIRAcetam 500 MG/5 ML INJECTION VIAL IVPB SCH ×2 (09:54→23:01)
--- NOTE | 2020-01-06 09:55 | PN ---
Progress Note, Physician History of Present Illness: PULMONARY ALERT,COMFORTABLE,-RESP DISTRESS ON VENT SUPPORT AC MODE,UNABLE TO TOLERATE CPAP - Current Medication List Current Medications: Active Medications Acetaminophen (Tylenol Oral Solution -) 650 mg GT Q4H PRN PRN Reason: PAIN Last Admin: 01/05/20 22:23 Dose: 650 mg Documented by: Amino Acids (Prosource No Carb Liquid Pkt) 30 ml PO DAILY MICHAEL Last Admin: 01/05/20 10:17 Dose: 30 ml Documented by: Artificial Tears (Artificial Tears) 1 drop OU BID PRN PRN Reason: DRY EYES Banana Based Medical Food (Banatrol Plus Powder Packet) 1 packet PO TID MICHAEL Last Admin: 01/06/20 05:15 Dose: 1 packet Documented by: Collagenase (Santyl -) 1 applic TP DAILY MICHAEL; Protocol Last Admin: 01/05/20 10:21 Dose: 1 applic Documented by: IV Flush (Triple Lumen Flush) 4 ml IVPUSH PRN PRN PRN Reason: Protocol Levetiracetam (Keppra Injection -) 500 mg IVPB BID [facility] Last Admin: 01/05/20 22:23 Dose: 500 mg Documented by: Levothyroxine Sodium (Synthroid Injection -) 20 mcg IVPUSH DAILY [facility] Last Admin: 01/05/20 10:19 Dose: 20 mcg Documented by: Mycophenolate Mofetil (Cellcept Suspension -) 500 mg NGT BID MICHAEL Last Admin: 01/05/20 22:24 Dose: 500 mg Documented by: Pantoprazole Sodium (Protonix Iv) 40 mg IVPUSH DAILY [facility] Last Admin: 01/05/20 10:14 Dose: 40 mg Documented by: Rosuvastatin Calcium (Crestor -) 10 mg PO HS MICHAEL Last Admin: 01/05/20 22:24 Dose: 10 mg Documented by: Sevelamer Carbonate (Renvela Powder Packet -) 0.8 gm PO TIDCM MICHAEL Last Admin: 01/05/20 17:24 Dose: 0.8 gm Documented by: Silver Sulfadiazine (Silvadene -) 1 applic TP BID MICHAEL Last Admin: 01/05/20 22:24 Dose: 1 applic Documented by: - Objective Vital Signs: Vital Signs Temperature 98.8 F 01/06/20 07:00 Pulse Rate 68 01/06/20 08:10 Respiratory Rate 26 H 01/06/20 08:50 Blood Pressure 138/70 01/06/20 07:00 O2 Sat by Pulse Oximetry (%) 100 01/06/20 08:50 Constitutional: Yes: Well Nourished, Calm Eyes: Yes: WNL HENT: Yes: WNL Neck: Yes: Supple (TRACH) Cardiovascular: Yes: Regular Rate and Rhythm, S1, S2 Respiratory: Yes: Intubated, Rhonchi (SCATTERED IBAN RHONCHI) Gastrointestinal: Yes: Normal Bowel Sounds, Soft Extremities: Yes: WNL Edema: No Labs: CBC, BMP 01/06/20 08:00 01/06/20 08:00 INR, PTT INR 1.14 (0.83-1.09) H 12/26/19 08:05 Assessment/Plan Problem List - Problems (1) Bullous pemphigoid Code(s): L12.0 - BULLOUS PEMPHIGOID (2) Generalized weakness Code(s): R53.1 - WEAKNESS (3) Unable to ambulate Code(s): R26.2 - DIFFICULTY IN WALKING, NOT ELSEWHERE CLASSIFIED (4) Blisters of multiple sites Code(s): R23.8 - OTHER SKIN CHANGES (5) Abnormal liver enzymes Code(s): R74.8 - ABNORMAL LEVELS OF OTHER SERUM ENZYMES (6) Wound of foot Code(s): S91.309A - UNSPECIFIED OPEN WOUND, UNSPECIFIED FOOT, INITIAL ENCOUNTER (7) Afib Code(s): I48.91 - UNSPECIFIED ATRIAL FIBRILLATION (8) Anemia Code(s): D64.9 - ANEMIA, UNSPECIFIED Qualifiers: Iron deficiency anemia type: chronic blood loss (9) BPH (benign prostatic hyperplasia) Code(s): N40.0 - BENIGN PROSTATIC HYPERPLASIA WITHOUT LOWER URINRY TRACT SYMP (10) CAD (coronary artery disease) Code(s): I25.10 - ATHSCL HEART DISEASE OF [place] CORONARY ARTERY W/O ANG PCTRS (11) CHF (congestive heart failure) Code(s): I50.9 - HEART FAILURE, UNSPECIFIED (12) CKD (chronic kidney disease) Code(s): N18.9 - CHRONIC KIDNEY DISEASE, UNSPECIFIED (13) Diabetes mellitus Code(s): E11.9 - TYPE 2 DIABETES MELLITUS WITHOUT COMPLICATIONS (14) Diastolic CHF Code(s): I50.30 - UNSPECIFIED DIASTOLIC (CONGESTIVE) HEART FAILURE (15) Gastritis Code(s): K29.70 - GASTRITIS, UNSPECIFIED, WITHOUT BLEEDING (16) HTN (hypertension) Code(s): I10 - ESSENTIAL (PRIMARY) HYPERTENSION (17) History of colon cancer Code(s): Z85.038 - PERSONAL HISTORY OF MALIGNANT NEOPLASM OF LARGE INTESTINE (18) History of duodenal ulcer Code(s): Z87.19 - PERSONAL HISTORY OF OTHER DISEASES OF THE DIGESTIVE SYSTEM (19) Hyperlipidemia Code(s): E78.5 - HYPERLIPIDEMIA, UNSPECIFIED (20) Hypothyroid Code(s): E03.9 - HYPOTHYROIDISM, UNSPECIFIED (21) Paroxysmal atrial fibrillation Code(s): I48.0 - PAROXYSMAL ATRIAL FIBRILLATION (22) Peripheral arterial disease Code(s): I73.9 - PERIPHERAL VASCULAR DISEASE, UNSPECIFIED (23) Peripheral vascular disease Code(s): I73.9 - PERIPHERAL VASCULAR DISEASE, UNSPECIFIED (24) Pulmonary hypertension Code(s): I27.2 - OTHER SECONDARY PULMONARY HYPERTENSION * DO NOT USE * (25) Seizure Code(s): R56.9 - UNSPECIFIED CONVULSIONS (26) Seizure disorder Code(s): G40.909 - EPILEPSY, UNSP, NOT INTRACTABLE, WITHOUT STATUS EPILEPTICUS ASSESSMENT AND PLAN: s/p Cardiopulmonary Arrest Acute Hypoxic and Hypercapneic Respiratory Failure Likely Aspiration Pneumonia S/P Septic Shock Acute on Chronic Renal Failure improving Lactic Acidosis Bullous Pemphigoid CAD LV Diastolic Dysfunction Atrial Fibrillation Seizure Disorder h/o CVA Hypothyroidism Anemia Thrombocytopenia improved - monitor H/H - monitor urine output, creatinine - rate control - PRN MS & Ativan - continue volume assist control , attempt weaning as tolerated - enteral feeds - DVT/GI prophylaxis - Lou LAYTON Problem List - Problems (1) Bullous pemphigoid Code(s): L12.0 - BULLOUS PEMPHIGOID (2) Generalized weakness Code(s): R53.1 - WEAKNESS (3) Unable to ambulate Code(s): R26.2 - DIFFICULTY IN WALKING, NOT ELSEWHERE CLASSIFIED (4) Blisters of multiple sites Code(s): R23.8 - OTHER SKIN CHANGES (5) Abnormal liver enzymes Code(s): R74.8 - ABNORMAL LEVELS OF OTHER SERUM ENZYMES (6) Wound of foot Code(s): S91.309A - UNSPECIFIED OPEN WOUND, UNSPECIFIED FOOT, INITIAL ENCOUNTER (7) Afib Code(s): I48.91 - UNSPECIFIED ATRIAL FIBRILLATION (8) Anemia Code(s): D64.9 - ANEMIA, UNSPECIFIED Qualifiers: Iron deficiency anemia type: chronic blood loss (9) BPH (benign prostatic hyperplasia) Code(s): N40.0 - BENIGN PROSTATIC HYPERPLASIA WITHOUT LOWER URINRY TRACT SYMP (10) CAD (coronary artery disease) Code(s): I25.10 - ATHSCL HEART DISEASE OF [place] CORONARY ARTERY W/O ANG PCTRS (11) CHF (congestive heart failure) Code(s): I50.9 - HEART FAILURE, UNSPECIFIED (12) CKD (chronic kidney disease) Code(s): N18.9 - CHRONIC KIDNEY DISEASE, UNSPECIFIED (13) Diabetes mellitus Code(s): E11.9 - TYPE 2 DIABETES MELLITUS WITHOUT COMPLICATIONS (14) Diastolic CHF Code(s): I50.30 - UNSPECIFIED DIASTOLIC (CONGESTIVE) HEART FAILURE (15) Gastritis Code(s): K29.70 - GASTRITIS, UNSPECIFIED, WITHOUT BLEEDING (16) HTN (hypertension) Code(s): I10 - ESSENTIAL (PRIMARY) HYPERTENSION (17) History of colon cancer Code(s): Z85.038 - PERSONAL HISTORY OF MALIGNANT NEOPLASM OF LARGE INTESTINE (18) History of duodenal ulcer Code(s): Z87.19 - PERSONAL HISTORY OF OTHER DISEASES OF THE DIGESTIVE SYSTEM (19) Hyperlipidemia Code(s): E78.5 - HYPERLIPIDEMIA, UNSPECIFIED (20) Hypothyroid Code(s): E03.9 - HYPOTHYROIDISM, UNSPECIFIED (21) Paroxysmal atrial fibrillation Code(s): I48.0 - PAROXYSMAL ATRIAL FIBRILLATION (22) Peripheral arterial disease Code(s): I73.9 - PERIPHERAL VASCULAR DISEASE, UNSPECIFIED (23) Peripheral vascular disease Code(s): I73.9 - PERIPHERAL VASCULAR DISEASE, UNSPECIFIED (24) Pulmonary hypertension Code(s): I27.2 - OTHER SECONDARY PULMONARY HYPERTENSION * DO NOT USE * (25) Seizure Code(s): R56.9 - UNSPECIFIED CONVULSIONS (26) Seizure disorder Code(s): G40.909 - EPILEPSY, UNSP, NOT INTRACTABLE, WITHOUT STATUS EPILEPTICUS
[2020-01-06] MEDS: MYCOPHENOLATE MOFETIL 200 MG/ML SUSPENSION NGT SCH ×2 (09:56→23:01)
[2020-01-06] MEDS: LEVOTHYROXINE SODIUM 100 MCG VIAL IVPUSH SCH (09:57)
--- NOTE | 2020-01-06 10:43 | PN ---
Progress Note, Physician History of Present Illness: LETHARGIC BUT ABLE TO NOD TO QUESTIONING INDICATES NO PAIN WHEN QUESTIONED LOW GRADE FEVER WBC WNL + LOOSE STOOL CULTURES, C DIFF PENDING - Current Medication List Current Medications: Active Medications Acetaminophen (Tylenol Oral Solution -) 650 mg GT Q4H PRN PRN Reason: PAIN Last Admin: 01/05/20 22:23 Dose: 650 mg Documented by: Amino Acids (Prosource No Carb Liquid Pkt) 30 ml PO DAILY MICHAEL Last Admin: 01/06/20 09:54 Dose: 30 ml Documented by: Artificial Tears (Artificial Tears) 1 drop OU BID PRN PRN Reason: DRY EYES Banana Based Medical Food (Banatrol Plus Powder Packet) 1 packet PO TID MICHAEL Last Admin: 01/06/20 05:15 Dose: 1 packet Documented by: Collagenase (Santyl -) 1 applic TP DAILY MICHAEL; Protocol Last Admin: 01/06/20 09:54 Dose: 1 applic Documented by: IV Flush (Triple Lumen Flush) 4 ml IVPUSH PRN PRN PRN Reason: Protocol Levetiracetam (Keppra Injection -) 500 mg IVPB BID MICHAEL Last Admin: 01/06/20 09:54 Dose: 500 mg Documented by: Levothyroxine Sodium (Synthroid Injection -) 20 mcg IVPUSH DAILY [facility] Last Admin: 01/06/20 09:57 Dose: 20 mcg Documented by: Mycophenolate Mofetil (Cellcept Suspension -) 500 mg NGT BID MICHAEL Last Admin: 01/06/20 09:56 Dose: 500 mg Documented by: Pantoprazole Sodium (Protonix Iv) 40 mg IVPUSH DAILY [facility] Last Admin: 01/06/20 09:54 Dose: 40 mg Documented by: Rosuvastatin Calcium (Crestor -) 10 mg PO HS MICHAEL Last Admin: 01/05/20 22:24 Dose: 10 mg Documented by: Sevelamer Carbonate (Renvela Powder Packet -) 0.8 gm PO TIDCM MICHAEL Last Admin: 01/06/20 09:53 Dose: 0.8 gm Documented by: Silver Sulfadiazine (Silvadene -) 1 applic TP BID MICHAEL Last Admin: 01/06/20 09:54 Dose: 1 applic Documented by: - Objective Vital Signs: Vital Signs Temperature 98.8 F 01/06/20 07:00 Pulse Rate 68 01/06/20 08:10 Respiratory Rate 26 H 01/06/20 08:50 Blood Pressure 138/70 01/06/20 07:00 O2 Sat by Pulse Oximetry (%) 100 01/06/20 08:50 Constitutional: Yes: No Distress Cardiovascular: Yes: Regular Rate and Rhythm, S1, S2 Respiratory: Yes: Diminished Gastrointestinal: Yes: Normal Bowel Sounds, Soft. No: Tenderness Edema: Yes Labs: CBC, BMP 01/06/20 08:00 01/06/20 08:00 INR, PTT INR 1.14 (0.83-1.09) H 12/26/19 08:05 Assessment/Plan LOW GRADE FEVER DIARRHEA RESP FAILURE AZOTEMIA BULOUS PEMPHIGOID AWAIT REPEAT C/S CHECK STOOL C DIFFICILE OBSERVE OFF ANTIBIOTICS
--- NOTE | 2020-01-06 13:21 | PN ---
Progress Note, Physician History of Present Illness: Pt seen and examined at bedside. He is awake and follows simple commands. - Current Medication List Current Medications: Active Medications Acetaminophen (Tylenol Oral Solution -) 650 mg GT Q4H PRN PRN Reason: PAIN Last Admin: 01/05/20 22:23 Dose: 650 mg Documented by: Amino Acids (Prosource No Carb Liquid Pkt) 30 ml PO DAILY MICHAEL Last Admin: 01/06/20 09:54 Dose: 30 ml Documented by: Artificial Tears (Artificial Tears) 1 drop OU BID PRN PRN Reason: DRY EYES Banana Based Medical Food (Banatrol Plus Powder Packet) 1 packet PO TID MICHAEL Last Admin: 01/06/20 05:15 Dose: 1 packet Documented by: Collagenase (Santyl -) 1 applic TP DAILY MICHAEL; Protocol Last Admin: 01/06/20 09:54 Dose: 1 applic Documented by: IV Flush (Triple Lumen Flush) 4 ml IVPUSH PRN PRN PRN Reason: Protocol Levetiracetam (Keppra Injection -) 500 mg IVPB BID MICHAEL Last Admin: 01/06/20 09:54 Dose: 500 mg Documented by: Levothyroxine Sodium (Synthroid Injection -) 20 mcg IVPUSH DAILY MICHAEL Last Admin: 01/06/20 09:57 Dose: 20 mcg Documented by: Mycophenolate Mofetil (Cellcept Suspension -) 500 mg NGT BID [facility] Last Admin: 01/06/20 09:56 Dose: 500 mg Documented by: Pantoprazole Sodium (Protonix Iv) 40 mg IVPUSH DAILY MICHAEL Last Admin: 01/06/20 09:54 Dose: 40 mg Documented by: Rosuvastatin Calcium (Crestor -) 10 mg PO HS MICHAEL Last Admin: 01/05/20 22:24 Dose: 10 mg Documented by: Sevelamer Carbonate (Renvela Powder Packet -) 0.8 gm PO TIDCM MICHAEL Last Admin: 01/06/20 12:33 Dose: 0.8 gm Documented by: Silver Sulfadiazine (Silvadene -) 1 applic TP BID MICHAEL Last Admin: 01/06/20 09:54 Dose: 1 applic Documented by: - Objective Vital Signs: Vital Signs Temperature 98.8 F 01/06/20 07:00 Pulse Rate 68 01/06/20 10:00 Respiratory Rate 27 H 01/06/20 11:53 Blood Pressure 138/70 01/06/20 07:00 O2 Sat by Pulse Oximetry (%) 100 01/06/20 11:53 Constitutional: Yes: Calm Eyes: Yes: Conjunctiva Clear HENT: Yes: Atraumatic Neck: Yes: Supple Cardiovascular: Yes: S1, S2 Respiratory: Yes: Mechanically Ventilated Gastrointestinal: Yes: Normal Bowel Sounds, Soft Genitourinary: Yes: WNL Musculoskeletal: Yes: WNL Edema: Yes Edema: LLE: Trace, RLE: Trace Integumentary: Yes: Other (bullous pemphigoid) Neurological: Yes: Other (awake) Labs: CBC, BMP 01/06/20 08:00 01/06/20 08:00 INR, PTT INR 1.14 (0.83-1.09) H 12/26/19 08:05 Problem List - Problems (1) Acute respiratory failure Code(s): J96.00 - ACUTE RESPIRATORY FAILURE, UNSP W HYPOXIA OR HYPERCAPNIA (2) Bullous pemphigoid Code(s): L12.0 - BULLOUS PEMPHIGOID Assessment/Plan Current Medications Generic Name Dose Route Start Last Admin Trade Name Freq PRN Reason Stop Dose Admin Acetaminophen 650 mg 01/05/20 12:12 01/05/20 22:23 Tylenol Oral Solution - GT 650 mg Q4H PRN Administration PAIN Amino Acids 30 ml 12/31/19 10:00 01/06/20 09:54 Prosource No Carb Liquid Pkt PO 30 ml DAILY MICHAEL Administration Artificial Tears 1 drop 12/30/19 14:58 Artificial Tears OU BID PRN DRY EYES Banana Based Medical Food 1 packet 01/05/20 14:00 01/06/20 05:15 Banatrol Plus Powder Packet PO 1 packet TID MICHAEL Administration Collagenase 1 applic 01/02/20 10:45 01/06/20 09:54 Santyl - TP 1 applic DAILY MICHAEL Administration Protocol IV Flush 4 ml 12/31/19 13:49 Triple Lumen Flush IVPUSH PRN PRN Protocol Levetiracetam 500 mg 12/30/19 22:00 01/06/20 09:54 Keppra Injection - IVPB 500 mg BID MICHAEL Administration Levothyroxine Sodium 20 mcg 12/31/19 10:00 01/06/20 09:57 Synthroid Injection - IVPUSH 20 mcg DAILY MICHAEL Administration Mycophenolate Mofetil 500 mg 12/31/19 22:00 01/06/20 09:56 Cellcept Suspension - NGT 500 mg BID MICHAEL Administration Pantoprazole Sodium 40 mg 12/31/19 10:00 01/06/20 09:54 Protonix Iv IVPUSH 40 mg DAILY MICHAEL Administration Rosuvastatin Calcium 10 mg 12/30/19 22:00 01/05/20 22:24 Crestor - PO 10 mg HS MICHAEL Administration Sevelamer Carbonate 0.8 gm 12/30/19 17:30 01/06/20 12:33 Renvela Powder Packet - PO 0.8 gm TIDCM MICHAEL Administration Silver Sulfadiazine 1 applic 12/30/19 22:00 01/06/20 09:54 Silvadene - TP 1 applic BID MICHAEL Administration Impression 1. CKD 2. CHF 3. BPH 4. a. fib 5. CAD 6. epilepsy 7. proteinuria 8. anemia 9. foot ulcer 10. abd wall cellulitis 11. bullous pemphigoid 12. LETITIA 13. hyperkalemia 14. cardiac arrest 15. resp failure on vent 16. r/o aspiration Plan - cont feeds - vent support - renal function stabilizing - cellcept for bullous pemphigoid - cont to monitor renal function - cont wound care
[2020-01-06] MEDS: ACETAMINOPHEN 650 MG/20.3 ML ORAL SOLUTION (CUPS) GT PRN (16:21)
--- NOTE | 2020-01-06 18:19 | PN ---
Progress Note, Physician Chief Complaint: s/p Cardiopulmonary Arrest Acute Hypoxic and Hypercapneic Respiratory Failure Likely Aspiration Pneumonia Septic Shock Acute on Chronic Renal Failure Lactic Acidosis Bullous Pemphigoid CAD LV Diastolic Dysfunction Atrial Fibrillation Seizure Disorder h/o CVA Hypothyroidism Anemia Thrombocytopenia History of Present Illness: NAD Lethargic S/P PEG Has diarrhea now with rectal tube since TF is restarted- refeeding syndrome? with elevated LFT's now trending down Febrile earlier BC + Cdiff pending - Current Medication List Current Medications: Active Medications Acetaminophen (Tylenol Oral Solution -) 650 mg GT Q4H PRN PRN Reason: PAIN Last Admin: 01/06/20 16:21 Dose: 650 mg Documented by: Amino Acids (Prosource No Carb Liquid Pkt) 30 ml PO DAILY [facility] Last Admin: 01/06/20 09:54 Dose: 30 ml Documented by: Artificial Tears (Artificial Tears) 1 drop OU BID PRN PRN Reason: DRY EYES Banana Based Medical Food (Banatrol Plus Powder Packet) 1 packet PO TID [facility] Last Admin: 01/06/20 14:28 Dose: 1 packet Documented by: Collagenase (Santyl -) 1 applic TP DAILY [facility]; Protocol Last Admin: 01/06/20 09:54 Dose: 1 applic Documented by: IV Flush (Triple Lumen Flush) 4 ml IVPUSH PRN PRN PRN Reason: Protocol Levetiracetam (Keppra Injection -) 500 mg IVPB BID [facility] Last Admin: 01/06/20 09:54 Dose: 500 mg Documented by: Levothyroxine Sodium (Synthroid Injection -) 20 mcg IVPUSH DAILY [facility] Last Admin: 01/06/20 09:57 Dose: 20 mcg Documented by: Mycophenolate Mofetil (Cellcept Suspension -) 500 mg NGT BID [facility] Last Admin: 01/06/20 09:56 Dose: 500 mg Documented by: Pantoprazole Sodium (Protonix Iv) 40 mg IVPUSH DAILY [facility] Last Admin: 01/06/20 09:54 Dose: 40 mg Documented by: Rosuvastatin Calcium (Crestor -) 10 mg PO HS [facility] Last Admin: 01/05/20 22:24 Dose: 10 mg Documented by: Sevelamer Carbonate (Renvela Powder Packet -) 0.8 gm PO TIDCM [facility] Last Admin: 01/06/20 18:00 Dose: 0.8 gm Documented by: Silver Sulfadiazine (Silvadene -) 1 applic TP BID [facility] Last Admin: 01/06/20 09:54 Dose: 1 applic Documented by: - Objective Vital Signs: Vital Signs Temperature 100 F H 01/06/20 15:32 Pulse Rate 80 01/06/20 15:32 Respiratory Rate 16 01/06/20 15:32 Blood Pressure 137/72 01/06/20 15:32 O2 Sat by Pulse Oximetry (%) 98 01/06/20 15:30 Constitutional: Yes: Well Nourished, No Distress, Calm Cardiovascular: Yes: Regular Rate and Rhythm Respiratory: Yes: Regular, Mechanically Ventilated, Rhonchi (diffuse) Gastrointestinal: Yes: Normal Bowel Sounds, Soft Genitourinary: Yes: Incontinence Musculoskeletal: Yes: Muscle Weakness Extremities: Yes: WNL Edema: No Peripheral Pulses WNL: Yes Neurological: Yes: Pre-Existing Deficit Labs: CBC, BMP 01/06/20 08:00 01/06/20 08:00 INR, PTT INR 1.14 (0.83-1.09) H 12/26/19 08:05 Problem List - Problems (1) Acute respiratory failure Assessment/Plan: -Mech vent -Pulmonary consult -IV abx on hold -S/P PEG placement -Continue TF -Bronchodilators Problems reviewed: Yes Code(s): J96.00 - ACUTE RESPIRATORY FAILURE, UNSP W HYPOXIA OR HYPERCAPNIA (2) Bullous pemphigoid Assessment/Plan: -Cellcept restarted -Silvadene top Problems reviewed: Yes Code(s): L12.0 - BULLOUS PEMPHIGOID (3) Acute on chronic renal insufficiency Assessment/Plan: -Nephrology on board -monitor daily labs Problems reviewed: Yes Code(s): N28.9 - DISORDER OF KIDNEY AND URETER, UNSPECIFIED; N18.9 - CHRONIC KIDNEY DISEASE, UNSPECIFIED (4) Pneumonia Assessment/Plan: -Likely aspiration -CXR reviewed -COVID 19 PCR negative -IV abx -ID consult -Lactic acidosis noted Problems reviewed: Yes Code(s): J18.9 - PNEUMONIA, UNSPECIFIED ORGANISM (5) Afib Assessment/Plan: -Chronic, rate controlled -Eliquis Held due to acute GI bleed -Transfuse only if Hg <7.0 to avoid fluid overload Problems reviewed: Yes Code(s): I48.91 - UNSPECIFIED ATRIAL FIBRILLATION (6) Anemia Assessment/Plan: -Chronic -H/H stable at this time -workup last admission was negative -hematology consult -Transfuse only if hg<7.0 to avoid fluid overload. -Procrit as per hematology Problems reviewed: Yes Code(s): D64.9 - ANEMIA, UNSPECIFIED (7) Diarrhea Assessment/Plan: -Refeeding syndrome? -Continue rectal tube for now -Check Cdiff PCR Problems reviewed: Yes Code(s): R19.7 - DIARRHEA, UNSPECIFIED Assessment/Plan See problem list GI PPX
[2020-01-06] MEDS: ROSUVASTATIN CA 10 MG TABLET (FP) PO SCH (23:01)
[2020-01-07] MEDS: BANATROL PLUS POWDER PACKET PO SCH ×3 (05:26→22:14)
[2020-01-07 08:55] LABS: BASO % 0.3 % (0-2.0); EOS % 1.6 % (0-4.5); HEMATOCRIT 23.8 % (35.4-49); HEMOGLOBIN 7.7 GM/dL (11.7-16.9); LYMPH % 19.3 % (8-40); MCH 28.6 pg (25.7-33.7); MCHC 32.4 g/dl (32.0-35.9); MEAN CELL VOLUME 88.3 fl (80-96); MONO % 10.2 % (3.8-10.2); NEUT % 68.6 % (42.8-82.8); PLATELET COUNT 156 K/MM3 (134-434); RBC 2.69 M/mm3 (4.00-5.60); RDW 17.1 % (11.9-15.9); WHITE BLOOD COUNT 6.9 K/mm3 (4.0-10.0)
[2020-01-07] MEDS: SEVELAMER CARBONATE 0.8 GM POWDER PACKET PO SCH ×3 (09:05→18:05)
[2020-01-07 09:23] LABS: ALBUMIN 1.9 g/dl (3.4-5.0); BILIRUBIN,TOTAL 0.6 mg/dL (0.2-1); BLOOD UREA NITROGEN 77.4 mg/dL (7-18); CALCIUM 7.9 mg/dL (8.5-10.1); CREATININE 1.6 mg/dL (0.55-1.3); POTASSIUM 4.1 mmol/L (3.5-5.1); TOT PROT 5.6 g/dl (6.4-8.2)
--- NOTE | 2020-01-07 10:04 | PN ---
Progress Note, Physician History of Present Illness: pulmonary drowsy on vent support ac mode - Current Medication List Current Medications: Active Medications Acetaminophen (Tylenol Oral Solution -) 650 mg GT Q4H PRN PRN Reason: PAIN Last Admin: 01/06/20 16:21 Dose: 650 mg Documented by: Amino Acids (Prosource No Carb Liquid Pkt) 30 ml PO DAILY [facility] Last Admin: 01/06/20 09:54 Dose: 30 ml Documented by: Artificial Tears (Artificial Tears) 1 drop OU BID PRN PRN Reason: DRY EYES Banana Based Medical Food (Banatrol Plus Powder Packet) 1 packet PO TID [facility] Last Admin: 01/07/20 05:26 Dose: 1 packet Documented by: Collagenase (Santyl -) 1 applic TP DAILY [facility]; Protocol Last Admin: 01/06/20 09:54 Dose: 1 applic Documented by: IV Flush (Triple Lumen Flush) 4 ml IVPUSH PRN PRN PRN Reason: Protocol Levetiracetam (Keppra Injection -) 500 mg IVPB BID [facility] Last Admin: 01/06/20 23:01 Dose: 500 mg Documented by: Levothyroxine Sodium (Synthroid Injection -) 20 mcg IVPUSH DAILY [facility] Last Admin: 01/06/20 09:57 Dose: 20 mcg Documented by: Mycophenolate Mofetil (Cellcept Suspension -) 500 mg NGT BID [facility] Last Admin: 01/06/20 23:01 Dose: 500 mg Documented by: Pantoprazole Sodium (Protonix Iv) 40 mg IVPUSH DAILY [facility] Last Admin: 01/06/20 09:54 Dose: 40 mg Documented by: Rosuvastatin Calcium (Crestor -) 10 mg PO HS [facility] Last Admin: 01/06/20 23:01 Dose: 10 mg Documented by: Sevelamer Carbonate (Renvela Powder Packet -) 0.8 gm PO TIDCM [facility] Last Admin: 01/07/20 09:05 Dose: 0.8 gm Documented by: Silver Sulfadiazine (Silvadene -) 1 applic TP BID [facility] Last Admin: 01/06/20 23:01 Dose: 1 applic Documented by: - Objective Vital Signs: Vital Signs Temperature 88.2 F L 01/07/20 09:00 Pulse Rate 68 01/07/20 09:00 Respiratory Rate 22 H 01/07/20 09:00 Blood Pressure 145/66 01/07/20 09:00 O2 Sat by Pulse Oximetry (%) 100 01/07/20 09:00 Constitutional: Yes: Well Nourished, Other (drowsy) Eyes: Yes: WNL HENT: Yes: WNL Neck: Yes: Supple (trach) Cardiovascular: Yes: Pulse Irregular, S1, S2 Respiratory: Yes: Mechanically Ventilated, Rhonchi (few rhonchi) Gastrointestinal: Yes: Normal Bowel Sounds, Soft Extremities: Yes: WNL Edema: Yes Labs: CBC, BMP 01/07/20 05:40 01/07/20 05:40 INR, PTT INR 1.14 (0.83-1.09) H 12/26/19 08:05 Assessment/Plan Problem List - Problems (1) Bullous pemphigoid Code(s): L12.0 - BULLOUS PEMPHIGOID (2) Generalized weakness Code(s): R53.1 - WEAKNESS (3) Unable to ambulate Code(s): R26.2 - DIFFICULTY IN WALKING, NOT ELSEWHERE CLASSIFIED (4) Blisters of multiple sites Code(s): R23.8 - OTHER SKIN CHANGES (5) Abnormal liver enzymes Code(s): R74.8 - ABNORMAL LEVELS OF OTHER SERUM ENZYMES (6) Wound of foot Code(s): S91.309A - UNSPECIFIED OPEN WOUND, UNSPECIFIED FOOT, INITIAL ENCOUNTER (7) Afib Code(s): I48.91 - UNSPECIFIED ATRIAL FIBRILLATION (8) Anemia Code(s): D64.9 - ANEMIA, UNSPECIFIED Qualifiers: Iron deficiency anemia type: chronic blood loss (9) BPH (benign prostatic hyperplasia) Code(s): N40.0 - BENIGN PROSTATIC HYPERPLASIA WITHOUT LOWER URINRY TRACT SYMP (10) CAD (coronary artery disease) Code(s): I25.10 - ATHSCL HEART DISEASE OF [place] CORONARY ARTERY W/O ANG PCTRS (11) CHF (congestive heart failure) Code(s): I50.9 - HEART FAILURE, UNSPECIFIED (12) CKD (chronic kidney disease) Code(s): N18.9 - CHRONIC KIDNEY DISEASE, UNSPECIFIED (13) Diabetes mellitus Code(s): E11.9 - TYPE 2 DIABETES MELLITUS WITHOUT COMPLICATIONS (14) Diastolic CHF Code(s): I50.30 - UNSPECIFIED DIASTOLIC (CONGESTIVE) HEART FAILURE (15) Gastritis Code(s): K29.70 - GASTRITIS, UNSPECIFIED, WITHOUT BLEEDING (16) HTN (hypertension) Code(s): I10 - ESSENTIAL (PRIMARY) HYPERTENSION (17) History of colon cancer Code(s): Z85.038 - PERSONAL HISTORY OF MALIGNANT NEOPLASM OF LARGE INTESTINE (18) History of duodenal ulcer Code(s): Z87.19 - PERSONAL HISTORY OF OTHER DISEASES OF THE DIGESTIVE SYSTEM (19) Hyperlipidemia Code(s): E78.5 - HYPERLIPIDEMIA, UNSPECIFIED (20) Hypothyroid Code(s): E03.9 - HYPOTHYROIDISM, UNSPECIFIED (21) Paroxysmal atrial fibrillation Code(s): I48.0 - PAROXYSMAL ATRIAL FIBRILLATION (22) Peripheral arterial disease Code(s): I73.9 - PERIPHERAL VASCULAR DISEASE, UNSPECIFIED (23) Peripheral vascular disease Code(s): I73.9 - PERIPHERAL VASCULAR DISEASE, UNSPECIFIED (24) Pulmonary hypertension Code(s): I27.2 - OTHER SECONDARY PULMONARY HYPERTENSION * DO NOT USE * (25) Seizure Code(s): R56.9 - UNSPECIFIED CONVULSIONS (26) Seizure disorder Code(s): G40.909 - EPILEPSY, UNSP, NOT INTRACTABLE, WITHOUT STATUS EPILEPTICUS ASSESSMENT AND PLAN: s/p Cardiopulmonary Arrest Acute Hypoxic and Hypercapneic Respiratory Failure Likely Aspiration Pneumonia S/P Septic Shock Acute on Chronic Renal Failure improving Lactic Acidosis Bullous Pemphigoid CAD LV Diastolic Dysfunction Atrial Fibrillation Seizure Disorder h/o CVA Hypothyroidism Anemia Thrombocytopenia improved - monitor H/H - monitor urine output, creatinine - rate control - PRN MS & Ativan - continue volume assist control , attempt weaning as tolerated - enteral feeds - DVT/GI prophylaxis - Lou LAYTON Problem List - Problems (1) Bullous pemphigoid Code(s): L12.0 - BULLOUS PEMPHIGOID (2) Generalized weakness Code(s): R53.1 - WEAKNESS (3) Unable to ambulate Code(s): R26.2 - DIFFICULTY IN WALKING, NOT ELSEWHERE CLASSIFIED (4) Blisters of multiple sites Code(s): R23.8 - OTHER SKIN CHANGES (5) Abnormal liver enzymes Code(s): R74.8 - ABNORMAL LEVELS OF OTHER SERUM ENZYMES (6) Wound of foot Code(s): S91.309A - UNSPECIFIED OPEN WOUND, UNSPECIFIED FOOT, INITIAL ENCOUNTER (7) Afib Code(s): I48.91 - UNSPECIFIED ATRIAL FIBRILLATION (8) Anemia Code(s): D64.9 - ANEMIA, UNSPECIFIED Qualifiers: Iron deficiency anemia type: chronic blood loss (9) BPH (benign prostatic hyperplasia) Code(s): N40.0 - BENIGN PROSTATIC HYPERPLASIA WITHOUT LOWER URINRY TRACT SYMP (10) CAD (coronary artery disease) Code(s): I25.10 - ATHSCL HEART DISEASE OF [place] CORONARY ARTERY W/O ANG PCTRS (11) CHF (congestive heart failure) Code(s): I50.9 - HEART FAILURE, UNSPECIFIED (12) CKD (chronic kidney disease) Code(s): N18.9 - CHRONIC KIDNEY DISEASE, UNSPECIFIED (13) Diabetes mellitus Code(s): E11.9 - TYPE 2 DIABETES MELLITUS WITHOUT COMPLICATIONS (14) Diastolic CHF Code(s): I50.30 - UNSPECIFIED DIASTOLIC (CONGESTIVE) HEART FAILURE (15) Gastritis Code(s): K29.70 - GASTRITIS, UNSPECIFIED, WITHOUT BLEEDING (16) HTN (hypertension) Code(s): I10 - ESSENTIAL (PRIMARY) HYPERTENSION (17) History of colon cancer Code(s): Z85.038 - PERSONAL HISTORY OF MALIGNANT NEOPLASM OF LARGE INTESTINE (18) History of duodenal ulcer Code(s): Z87.19 - PERSONAL HISTORY OF OTHER DISEASES OF THE DIGESTIVE SYSTEM (19) Hyperlipidemia Code(s): E78.5 - HYPERLIPIDEMIA, UNSPECIFIED (20) Hypothyroid Code(s): E03.9 - HYPOTHYROIDISM, UNSPECIFIED (21) Paroxysmal atrial fibrillation Code(s): I48.0 - PAROXYSMAL ATRIAL FIBRILLATION (22) Peripheral arterial disease Code(s): I73.9 - PERIPHERAL VASCULAR DISEASE, UNSPECIFIED (23) Peripheral vascular disease Code(s): I73.9 - PERIPHERAL VASCULAR DISEASE, UNSPECIFIED (24) Pulmonary hypertension Code(s): I27.2 - OTHER SECONDARY PULMONARY HYPERTENSION * DO NOT USE * (25) Seizure Code(s): R56.9 - UNSPECIFIED CONVULSIONS (26) Seizure disorder Code(s): G40.909 - EPILEPSY, UNSP, NOT INTRACTABLE, WITHOUT STATUS EPILEPTICUS
[2020-01-07] MEDS ORDERED: PT OWN MED DRAWER 7, Y5N ONE ×2 (10:35→14:59)
[2020-01-07] MEDS: MYCOPHENOLATE MOFETIL 200 MG/ML SUSPENSION NGT SCH ×2 (10:51→22:14)
[2020-01-07] MEDS: levETIRAcetam 500 MG/5 ML INJECTION VIAL IVPB SCH (10:51)
[2020-01-07] MEDS: PANTOPRAZOLE SODIUM 40 MG VIAL IVPUSH SCH (10:52)
[2020-01-07] MEDS: LEVOTHYROXINE SODIUM 100 MCG VIAL IVPUSH SCH (10:52)
[2020-01-07] MEDS: SILVER SULFADIAZINE 1% TOP CREAM 50 GM JAR TP SCH ×2 (10:52→22:14)
[2020-01-07] MEDS: AMINO ACIDS/PROTEIN HYDROLYS 30 ML LIQUID.PKT PO SCH (10:52)
[2020-01-07] MEDS: COLLAGENASE CLOSTRIDIUM HIST. 30 GRAMS TUBE TP SCH (10:52)
--- NOTE | 2020-01-07 11:56 | PN ---
Progress Note, Physician Chief Complaint: s/p Cardiopulmonary Arrest Acute Hypoxic and Hypercapneic Respiratory Failure Likely Aspiration Pneumonia Septic Shock Acute on Chronic Renal Failure Lactic Acidosis Bullous Pemphigoid CAD LV Diastolic Dysfunction Atrial Fibrillation Seizure Disorder h/o CVA Hypothyroidism Anemia Thrombocytopenia History of Present Illness: NAD Lethargic S/P PEG Has diarrhea now with rectal tube since TF is restarted- refeeding syndrome? with elevated LFT's now normalized Febrile earlier BC pending Cdiff negative - Current Medication List Current Medications: Active Medications Acetaminophen (Tylenol Oral Solution -) 650 mg GT Q4H PRN PRN Reason: PAIN Last Admin: 01/06/20 16:21 Dose: 650 mg Documented by: Amino Acids (Prosource No Carb Liquid Pkt) 30 ml PO DAILY [facility] Last Admin: 01/07/20 10:52 Dose: 30 ml Documented by: Artificial Tears (Artificial Tears) 1 drop OU BID PRN PRN Reason: DRY EYES Banana Based Medical Food (Banatrol Plus Powder Packet) 1 packet PO TID [facility] Last Admin: 01/07/20 05:26 Dose: 1 packet Documented by: Collagenase (Santyl -) 1 applic TP DAILY [facility]; Protocol Last Admin: 01/07/20 10:52 Dose: 1 applic Documented by: IV Flush (Triple Lumen Flush) 4 ml IVPUSH PRN PRN PRN Reason: Protocol Levetiracetam (Keppra Injection -) 500 mg IVPB BID [facility] Last Admin: 01/07/20 10:51 Dose: 500 mg Documented by: Levothyroxine Sodium (Synthroid Injection -) 20 mcg IVPUSH DAILY [facility] Last Admin: 01/07/20 10:52 Dose: 20 mcg Documented by: Mycophenolate Mofetil (Cellcept Suspension -) 500 mg NGT BID [facility] Last Admin: 01/07/20 10:51 Dose: 500 mg Documented by: Pantoprazole Sodium (Protonix Iv) 40 mg IVPUSH DAILY [facility] Last Admin: 01/07/20 10:52 Dose: 40 mg Documented by: Rosuvastatin Calcium (Crestor -) 10 mg PO HS [facility] Last Admin: 01/06/20 23:01 Dose: 10 mg Documented by: Sevelamer Carbonate (Renvela Powder Packet -) 0.8 gm PO TIDCM [facility] Last Admin: 01/07/20 09:05 Dose: 0.8 gm Documented by: Silver Sulfadiazine (Silvadene -) 1 applic TP BID [facility] Last Admin: 01/07/20 10:52 Dose: 1 applic Documented by: - Objective Vital Signs: Vital Signs Temperature 88.2 F L 01/07/20 09:00 Pulse Rate 65 01/07/20 11:45 Respiratory Rate 21 H 01/07/20 11:45 Blood Pressure 145/66 01/07/20 09:00 O2 Sat by Pulse Oximetry (%) 100 01/07/20 11:45 Constitutional: Yes: Well Nourished, No Distress, Calm Cardiovascular: Yes: Regular Rate and Rhythm Respiratory: Yes: Regular, CTA Bilaterally, Mechanically Ventilated Gastrointestinal: Yes: Normal Bowel Sounds, Soft, Abdomen, Obese Genitourinary: Yes: Incontinence Extremities: Yes: Other (generalized atrophy) Edema: No Peripheral Pulses WNL: Yes Integumentary: Yes: Skin Tear (generalized bleeding skin tears) Neurological: Yes: Alert, Pre-Existing Deficit Psychiatric: Yes: Alert Labs: CBC, BMP 01/07/20 05:40 01/07/20 05:40 INR, PTT INR 1.14 (0.83-1.09) H 12/26/19 08:05 Problem List - Problems (1) Acute respiratory failure Assessment/Plan: -Mech vent -Pulmonary consult -IV abx on hold -S/P PEG placement -Continue TF -Bronchodilators Problems reviewed: Yes Code(s): J96.00 - ACUTE RESPIRATORY FAILURE, UNSP W HYPOXIA OR HYPERCAPNIA (2) Bullous pemphigoid Assessment/Plan: -Cellcept restarted -Silvadene top Problems reviewed: Yes Code(s): L12.0 - BULLOUS PEMPHIGOID (3) Acute on chronic renal insufficiency Assessment/Plan: -Nephrology on board -monitor daily labs Problems reviewed: Yes Code(s): N28.9 - DISORDER OF KIDNEY AND URETER, UNSPECIFIED; N18.9 - CHRONIC KIDNEY DISEASE, UNSPECIFIED (4) Pneumonia Assessment/Plan: -Likely aspiration -CXR reviewed -COVID 19 PCR negative -IV abx -ID consult -Lactic acidosis noted -Off abx Problems reviewed: Yes Code(s): J18.9 - PNEUMONIA, UNSPECIFIED ORGANISM (5) Afib Assessment/Plan: -Chronic, rate controlled -Eliquis Held due to acute GI bleed -Transfuse only if Hg <7.0 to avoid fluid overload Problems reviewed: Yes Code(s): I48.91 - UNSPECIFIED ATRIAL FIBRILLATION (6) Anemia Assessment/Plan: -Chronic -H/H stable at this time -workup last admission was negative -hematology consult -Transfuse only if hg<7.0 to avoid fluid overload. -Procrit as per hematology Problems reviewed: Yes Code(s): D64.9 - ANEMIA, UNSPECIFIED (7) Diarrhea Assessment/Plan: -Refeeding syndrome? -Continue rectal tube for now -Cdiff PCR negative Problems reviewed: Yes Code(s): R19.7 - DIARRHEA, UNSPECIFIED Assessment/Plan See problem list GI PPX
[2020-01-07] MEDS ORDERED: FUROSEMIDE 40 MG/5 ML UNIT-DOSE CUP PO ONE (12:00)
--- NOTE | 2020-01-07 12:00 | PN ---
Progress Note, Physician History of Present Illness: Pt seen and examined at bedside. He appears comfortable. - Current Medication List Current Medications: Active Medications Acetaminophen (Tylenol Oral Solution -) 650 mg GT Q4H PRN PRN Reason: PAIN Last Admin: 01/06/20 16:21 Dose: 650 mg Documented by: Amino Acids (Prosource No Carb Liquid Pkt) 30 ml PO DAILY [facility] Last Admin: 01/07/20 10:52 Dose: 30 ml Documented by: Artificial Tears (Artificial Tears) 1 drop OU BID PRN PRN Reason: DRY EYES Banana Based Medical Food (Banatrol Plus Powder Packet) 1 packet PO TID [facility] Last Admin: 01/07/20 05:26 Dose: 1 packet Documented by: Collagenase (Santyl -) 1 applic TP DAILY [facility]; Protocol Last Admin: 01/07/20 10:52 Dose: 1 applic Documented by: IV Flush (Triple Lumen Flush) 4 ml IVPUSH PRN PRN PRN Reason: Protocol Levetiracetam (Keppra Injection -) 500 mg IVPB BID [facility] Last Admin: 01/07/20 10:51 Dose: 500 mg Documented by: Levothyroxine Sodium (Synthroid Injection -) 20 mcg IVPUSH DAILY [facility] Last Admin: 01/07/20 10:52 Dose: 20 mcg Documented by: Mycophenolate Mofetil (Cellcept Suspension -) 500 mg NGT BID [facility] Last Admin: 01/07/20 10:51 Dose: 500 mg Documented by: Pantoprazole Sodium (Protonix Iv) 40 mg IVPUSH DAILY [facility] Last Admin: 01/07/20 10:52 Dose: 40 mg Documented by: Rosuvastatin Calcium (Crestor -) 10 mg PO HS [facility] Last Admin: 01/06/20 23:01 Dose: 10 mg Documented by: Sevelamer Carbonate (Renvela Powder Packet -) 0.8 gm PO TIDCM [facility] Last Admin: 01/07/20 09:05 Dose: 0.8 gm Documented by: Silver Sulfadiazine (Silvadene -) 1 applic TP BID [facility] Last Admin: 01/07/20 10:52 Dose: 1 applic Documented by: - Objective Vital Signs: Vital Signs Temperature 98.2 F 01/07/20 09:00 Pulse Rate 65 01/07/20 11:45 Respiratory Rate 21 H 01/07/20 11:45 Blood Pressure 145/66 01/07/20 09:00 O2 Sat by Pulse Oximetry (%) 100 01/07/20 11:45 Constitutional: Yes: Calm Eyes: Yes: Conjunctiva Clear HENT: Yes: Atraumatic Cardiovascular: Yes: S1, S2 Respiratory: Yes: Mechanically Ventilated Gastrointestinal: Yes: Soft Genitourinary: Yes: [place] Present Edema: Yes Edema: LLE: Trace, RLE: Trace Integumentary: Yes: Other (bullous pemphigoid) Neurological: Yes: Other (awake) Labs: CBC, BMP 01/07/20 05:40 01/07/20 05:40 INR, PTT INR 1.14 (0.83-1.09) H 12/26/19 08:05 Problem List - Problems (1) Acute respiratory failure Code(s): J96.00 - ACUTE RESPIRATORY FAILURE, UNSP W HYPOXIA OR HYPERCAPNIA (2) Bullous pemphigoid Code(s): L12.0 - BULLOUS PEMPHIGOID Assessment/Plan Current Medications Generic Name Dose Route Start Last Admin Trade Name Freq PRN Reason Stop Dose Admin Acetaminophen 650 mg 01/05/20 12:12 01/06/20 16:21 Tylenol Oral Solution - GT 650 mg Q4H PRN Administration PAIN Amino Acids 30 ml 12/31/19 10:00 01/07/20 10:52 Prosource No Carb Liquid Pkt PO 30 ml DAILY [facility] Administration Artificial Tears 1 drop 12/30/19 14:58 Artificial Tears OU BID PRN DRY EYES Banana Based Medical Food 1 packet 01/05/20 14:00 01/07/20 05:26 Banatrol Plus Powder Packet PO 1 packet TID [facility] Administration Collagenase 1 applic 01/02/20 10:45 01/07/20 10:52 Santyl - TP 1 applic DAILY [facility] Administration Protocol IV Flush 4 ml 12/31/19 13:49 Triple Lumen Flush IVPUSH PRN PRN Protocol Levetiracetam 500 mg 12/30/19 22:00 01/07/20 10:51 Keppra Injection - IVPB 500 mg BID [facility] Administration Levothyroxine Sodium 20 mcg 12/31/19 10:00 01/07/20 10:52 Synthroid Injection - IVPUSH 20 mcg DAILY [facility] Administration Mycophenolate Mofetil 500 mg 12/31/19 22:00 07/22/20 10:51 Cellcept Suspension - NGT 500 mg BID [facility] Administration Pantoprazole Sodium 40 mg 12/31/19 10:00 01/07/20 10:52 Protonix Iv IVPUSH 40 mg DAILY [facility] Administration Rosuvastatin Calcium 10 mg 12/30/19 22:00 01/06/20 23:01 Crestor - PO 10 mg HS [facility] Administration Sevelamer Carbonate 0.8 gm 12/30/19 17:30 01/07/20 09:05 Renvela Powder Packet - PO 0.8 gm TIDCM [facility] Administration Silver Sulfadiazine 1 applic 12/30/19 22:00 01/07/20 10:52 Silvadene - TP 1 applic BID [facility] Administration Impression 1. CKD 2. CHF 3. BPH 4. a. fib 5. CAD 6. epilepsy 7. proteinuria 8. anemia 9. foot ulcer 10. abd wall cellulitis 11. bullous pemphigoid 12. LETITIA 13. hyperkalemia 14. cardiac arrest 15. resp failure on vent 16. r/o aspiration Plan - renal function stable - cont feeds - will give a dose of lasix - repeat labs in am - cellcept for bullous pemphigoid - cont to monitor renal function - cont wound care
[2020-01-07] MEDS: levETIRAcetam 500 MG/5 ML ORAL SOLUTION (UNIT-DOSE CUPS) GT SCH (22:14)
[2020-01-07] MEDS: ROSUVASTATIN CA 10 MG TABLET (FP) PO SCH (22:14)
[2020-01-08] MEDS: BANATROL PLUS POWDER PACKET PO SCH ×3 (05:27→22:45)
[2020-01-08] MEDS: LEVOTHYROXINE NA 25 MCG TABLET (FP) GT SCH (06:41)
[2020-01-08] MEDS ORDERED: INSULIN (NOVOLOG) ASPART 100 UNITS/ML 10ML VIAL ONE (07:45)
[2020-01-08 09:02] LABS: BASO % 0.4 % (0-2.0); EOS % 1.5 % (0-4.5); HEMATOCRIT 23.2 % (35.4-49); HEMOGLOBIN 7.5 GM/dL (11.7-16.9); LYMPH % 19.8 % (8-40); MCH 28.8 pg (25.7-33.7); MCHC 32.5 g/dl (32.0-35.9); MEAN CELL VOLUME 88.4 fl (80-96); MEAN PLT VOLUME 7.9 fl (7.5-11.1); MONO % 9.4 % (3.8-10.2); NEUT % 68.9 % (42.8-82.8); PLATELET COUNT 173 K/MM3 (134-434); RBC 2.62 M/mm3 (4.00-5.60); RDW 17.4 % (11.9-15.9); WHITE BLOOD COUNT 6.8 K/mm3 (4.0-10.0)
[2020-01-08 09:30] LABS: ALBUMIN 1.9 g/dl (3.4-5.0); BILIRUBIN,TOTAL 0.6 mg/dL (0.2-1); CALCIUM 7.9 mg/dL (8.5-10.1); CREATININE 1.5 mg/dL (0.55-1.3); POTASSIUM 3.9 mmol/L (3.5-5.1); TOT PROT 5.6 g/dl (6.4-8.2)
[2020-01-08] MEDS ORDERED: PT OWN MED DRAWER 7, Y5N ONE ×3 (10:32→22:31)
[2020-01-08] MEDS: SEVELAMER CARBONATE 0.8 GM POWDER PACKET PO SCH ×3 (10:40→18:30)
[2020-01-08] MEDS: AMINO ACIDS/PROTEIN HYDROLYS 30 ML LIQUID.PKT PO SCH (10:40)
[2020-01-08] MEDS: levETIRAcetam 500 MG/5 ML ORAL SOLUTION (UNIT-DOSE CUPS) GT SCH ×2 (10:40→22:44)
[2020-01-08] MEDS: SILVER SULFADIAZINE 1% TOP CREAM 50 GM JAR TP SCH ×2 (10:41→22:45)
[2020-01-08] MEDS: COLLAGENASE CLOSTRIDIUM HIST. 30 GRAMS TUBE TP SCH (10:42)
[2020-01-08] MEDS: FAMOTIDINE 40 MG/5 ML ORAL SUSPENSION PEG SCH (10:56)
[2020-01-08] MEDS: MYCOPHENOLATE MOFETIL 200 MG/ML SUSPENSION NGT SCH ×2 (10:56→22:45)
--- NOTE | 2020-01-08 11:48 | PN ---
Progress Note, Physician Chief Complaint: s/p Cardiopulmonary Arrest Acute Hypoxic and Hypercapneic Respiratory Failure Likely Aspiration Pneumonia Septic Shock Acute on Chronic Renal Failure Lactic Acidosis Bullous Pemphigoid CAD LV Diastolic Dysfunction Atrial Fibrillation Seizure Disorder h/o CVA Hypothyroidism Anemia Thrombocytopenia History of Present Illness: NAD Lethargic S/P PEG Has diarrhea now with rectal tube since TF is restarted- refeeding syndrome? with elevated LFT's now normalized afebrile Off IV abx BC negative so far Cdiff negative - Current Medication List Current Medications: Active Medications Acetaminophen (Tylenol Oral Solution -) 650 mg GT Q4H PRN PRN Reason: PAIN Last Admin: 01/06/20 16:21 Dose: 650 mg Documented by: Amino Acids (Prosource No Carb Liquid Pkt) 30 ml PO DAILY [facility] Last Admin: 01/08/20 10:40 Dose: 30 ml Documented by: Artificial Tears (Artificial Tears) 1 drop OU BID PRN PRN Reason: DRY EYES Banana Based Medical Food (Banatrol Plus Powder Packet) 1 packet PO TID [facility] Last Admin: 01/08/20 05:27 Dose: 1 packet Documented by: Collagenase (Santyl -) 1 applic TP DAILY [facility]; Protocol Last Admin: 01/08/20 10:42 Dose: 1 applic Documented by: Famotidine (Pepcid) 20 mg PEG DAILY [facility] Last Admin: 01/08/20 10:56 Dose: 20 mg Documented by: IV Flush (Triple Lumen Flush) 4 ml IVPUSH PRN PRN PRN Reason: Protocol Levetiracetam (Keppra Oral Solution -) 500 mg GT BID [facility] Last Admin: 01/08/20 10:40 Dose: 500 mg Documented by: Levothyroxine Sodium (Synthroid -) 25 mcg GT DAILY@0700 [facility] Last Admin: 01/08/20 06:41 Dose: 25 mcg Documented by: Mycophenolate Mofetil (Cellcept Suspension -) 500 mg NGT BID [facility] Last Admin: 01/08/20 10:56 Dose: 500 mg Documented by: Rosuvastatin Calcium (Crestor -) 10 mg PO HS [facility] Last Admin: 01/07/20 22:14 Dose: 10 mg Documented by: Sevelamer Carbonate (Renvela Powder Packet -) 0.8 gm PO TIDCM [facility] Last Admin: 01/08/20 10:40 Dose: 0.8 gm Documented by: Silver Sulfadiazine (Silvadene -) 1 applic TP BID [facility] Last Admin: 01/08/20 10:41 Dose: 1 applic Documented by: - Objective Vital Signs: Vital Signs Temperature 98.1 F 01/08/20 06:00 Pulse Rate 72 01/08/20 06:00 Respiratory Rate 20 01/08/20 06:00 Blood Pressure 147/66 01/08/20 06:00 O2 Sat by Pulse Oximetry (%) 100 01/08/20 06:00 Constitutional: Yes: Well Nourished, No Distress, Calm Cardiovascular: Yes: Regular Rate and Rhythm Respiratory: Yes: Regular, Mechanically Ventilated, Rales (diffuse) Gastrointestinal: Yes: Normal Bowel Sounds, Soft, Abdomen, Obese Genitourinary: Yes: Incontinence Musculoskeletal: Yes: WNL Edema: No Peripheral Pulses WNL: Yes Neurological: Yes: Lethargy Labs: CBC, BMP 01/08/20 06:30 01/08/20 06:30 INR, PTT INR 1.14 (0.83-1.09) H 12/26/19 08:05 Problem List - Problems (1) Acute respiratory failure Assessment/Plan: -Mech vent -Pulmonary consult -S/P PEG placement -Continue TF -Bronchodilators Problems reviewed: Yes Code(s): J96.00 - ACUTE RESPIRATORY FAILURE, UNSP W HYPOXIA OR HYPERCAPNIA (2) Bullous pemphigoid Assessment/Plan: -Cellcept restarted -Silvadene top Problems reviewed: Yes Code(s): L12.0 - BULLOUS PEMPHIGOID (3) Acute on chronic renal insufficiency Assessment/Plan: -Nephrology on board -monitor daily labs Problems reviewed: Yes Code(s): N28.9 - DISORDER OF KIDNEY AND URETER, UNSPECIFIED; N18.9 - CHRONIC KIDNEY DISEASE, UNSPECIFIED (4) Pneumonia Assessment/Plan: -Likely aspiration -CXR reviewed -COVID 19 PCR negative -Off IV abx -ID consult -Lactic acidosis noted -afebrile Problems reviewed: Yes Code(s): J18.9 - PNEUMONIA, UNSPECIFIED ORGANISM (5) Afib Assessment/Plan: -Chronic, rate controlled -Eliquis Held due to acute GI bleed -Transfuse only if Hg <7.0 to avoid fluid overload Problems reviewed: Yes Code(s): I48.91 - UNSPECIFIED ATRIAL FIBRILLATION (6) Anemia Assessment/Plan: -Chronic -H/H stable at this time -workup last admission was negative -hematology consult -Transfuse only if hg<7.0 to avoid fluid overload. -Procrit as per hematology Problems reviewed: Yes Code(s): D64.9 - ANEMIA, UNSPECIFIED (7) Diarrhea Assessment/Plan: -Refeeding syndrome? -d/c rectal tube and monitor -Cdiff PCR negative Problems reviewed: Yes Code(s): R19.7 - DIARRHEA, UNSPECIFIED Assessment/Plan See problem list GI PPX COVID 19 PCR in preparation of discharge.
[2020-01-08 12:14] VITALS: BMI 28.3
--- NOTE | 2020-01-08 13:08 | PN ---
Progress Note (short form) - Note Progress Note: Awake on AC Mode of vent. Denies CP or SOB. No acute events overnight. Intake & Output 01/05/20 01/06/20 01/07/20 01/08/20 23:59 23:59 23:59 23:59 Intake Total 2310 2470 1381 960 Output Total 900 Balance 2310 2470 1381 60 Weight 221 lb 9 oz 214 lb 4 oz 215 lb 3.2 oz 221 lb 11.2 oz Last Vital Signs Temp Pulse Resp BP Pulse Ox 98.1 F 72 20 147/66 100 01/08/20 06:00 01/08/20 06:00 01/08/20 12:46 01/08/20 06:00 01/08/20 12:46 Constitutional: Yes: Vented, NAD Active Medications Acetaminophen (Tylenol Oral Solution -) 650 mg GT Q4H PRN PRN Reason: PAIN Last Admin: 01/06/20 16:21 Dose: 650 mg Documented by: Amino Acids (Prosource No Carb Liquid Pkt) 30 ml PO DAILY [facility] Last Admin: 01/08/20 10:40 Dose: 30 ml Documented by: Artificial Tears (Artificial Tears) 1 drop OU BID PRN PRN Reason: DRY EYES Banana Based Medical Food (Banatrol Plus Powder Packet) 1 packet PO TID [facility] Last Admin: 01/08/20 05:27 Dose: 1 packet Documented by: Collagenase (Santyl -) 1 applic TP DAILY [facility]; Protocol Last Admin: 01/08/20 10:42 Dose: 1 applic Documented by: Famotidine (Pepcid) 20 mg PEG DAILY [facility] Last Admin: 01/08/20 10:56 Dose: 20 mg Documented by: IV Flush (Triple Lumen Flush) 4 ml IVPUSH PRN PRN PRN Reason: Protocol Levetiracetam (Keppra Oral Solution -) 500 mg GT BID [facility] Last Admin: 01/08/20 10:40 Dose: 500 mg Documented by: Levothyroxine Sodium (Synthroid -) 25 mcg GT DAILY@0700 [facility] Last Admin: 01/08/20 06:41 Dose: 25 mcg Documented by: Mycophenolate Mofetil (Cellcept Suspension -) 500 mg NGT BID [facility] Last Admin: 01/08/20 10:56 Dose: 500 mg Documented by: Rosuvastatin Calcium (Crestor -) 10 mg PO HS [facility] Last Admin: 01/07/20 22:14 Dose: 10 mg Documented by: Sevelamer Carbonate (Renvela Powder Packet -) 0.8 gm PO TIDCM [facility] Last Admin: 01/08/20 10:40 Dose: 0.8 gm Documented by: Silver Sulfadiazine (Silvadene -) 1 applic TP BID [facility] Last Admin: 01/08/20 10:41 Dose: 1 applic Documented by: Eyes: Yes: WNL HENT: Yes: WNL Neck: Yes: WNL Cardiovascular: Yes: Pulse Irregular, S1, S2 Respiratory: Yes: Vented, Diminished, Rhonchi Gastrointestinal: Yes: Normal Bowel Sounds, Soft Extremities: Yes: WNL Edema: No Labs: Laboratory Results - last 24 hr 01/04/20 01/08/20 01/08/20 11:17 06:30 06:30 WBC 6.8 RBC 2.62 L Hgb 7.5 L Hct 23.2 L MCV 88.4 MCH 28.8 MCHC 32.5 RDW 17.4 H Plt Count 173 MPV 7.9 Absolute Neuts (auto) 4.7 Neutrophils % 68.9 Lymphocytes % 19.8 Monocytes % 9.4 Eosinophils % 1.5 Basophils % 0.4 Nucleated RBC % 0 Sodium 141 Potassium 3.9 Chloride 109 H Carbon Dioxide 26 Anion Gap 6 L BUN 77.0 H Creatinine 1.5 H Est GFR (CKD-EPI)AfAm 49.54 Est GFR (CKD-EPI)NonAf 42.74 Random Glucose 117 H Calcium 7.9 L Total Bilirubin 0.6 AST 40 H ALT 10 L Alkaline Phosphatase 110 Total Protein 5.6 L Albumin 1.9 L Blood Type B POSITIVE Antibody Screen Negative Crossmatch See Detail Assessment/Plan Problem List - Problems (1) Bullous pemphigoid Code(s): L12.0 - BULLOUS PEMPHIGOID (2) Generalized weakness Code(s): R53.1 - WEAKNESS (3) Unable to ambulate Code(s): R26.2 - DIFFICULTY IN WALKING, NOT ELSEWHERE CLASSIFIED (4) Blisters of multiple sites Code(s): R23.8 - OTHER SKIN CHANGES (5) Abnormal liver enzymes Code(s): R74.8 - ABNORMAL LEVELS OF OTHER SERUM ENZYMES (6) Wound of foot Code(s): S91.309A - UNSPECIFIED OPEN WOUND, UNSPECIFIED FOOT, INITIAL ENCOUNTER (7) Afib Code(s): I48.91 - UNSPECIFIED ATRIAL FIBRILLATION (8) Anemia Code(s): D64.9 - ANEMIA, UNSPECIFIED Qualifiers: Iron deficiency anemia type: chronic blood loss (9) BPH (benign prostatic hyperplasia) Code(s): N40.0 - BENIGN PROSTATIC HYPERPLASIA WITHOUT LOWER URINRY TRACT SYMP (10) CAD (coronary artery disease) Code(s): I25.10 - ATHSCL HEART DISEASE OF [place] CORONARY ARTERY W/O ANG PCTRS (11) CHF (congestive heart failure) Code(s): I50.9 - HEART FAILURE, UNSPECIFIED (12) CKD (chronic kidney disease) Code(s): N18.9 - CHRONIC KIDNEY DISEASE, UNSPECIFIED (13) Diabetes mellitus Code(s): E11.9 - TYPE 2 DIABETES MELLITUS WITHOUT COMPLICATIONS (14) Diastolic CHF Code(s): I50.30 - UNSPECIFIED DIASTOLIC (CONGESTIVE) HEART FAILURE (15) Gastritis Code(s): K29.70 - GASTRITIS, UNSPECIFIED, WITHOUT BLEEDING (16) HTN (hypertension) Code(s): I10 - ESSENTIAL (PRIMARY) HYPERTENSION (17) History of colon cancer Code(s): Z85.038 - PERSONAL HISTORY OF MALIGNANT NEOPLASM OF LARGE INTESTINE (18) History of duodenal ulcer Code(s): Z87.19 - PERSONAL HISTORY OF OTHER DISEASES OF THE DIGESTIVE SYSTEM (19) Hyperlipidemia Code(s): E78.5 - HYPERLIPIDEMIA, UNSPECIFIED (20) Hypothyroid Code(s): E03.9 - HYPOTHYROIDISM, UNSPECIFIED (21) Paroxysmal atrial fibrillation Code(s): I48.0 - PAROXYSMAL ATRIAL FIBRILLATION (22) Peripheral arterial disease Code(s): I73.9 - PERIPHERAL VASCULAR DISEASE, UNSPECIFIED (23) Peripheral vascular disease Code(s): I73.9 - PERIPHERAL VASCULAR DISEASE, UNSPECIFIED (24) Pulmonary hypertension Code(s): I27.2 - OTHER SECONDARY PULMONARY HYPERTENSION * DO NOT USE * (25) Seizure Code(s): R56.9 - UNSPECIFIED CONVULSIONS (26) Seizure disorder Code(s): G40.909 - EPILEPSY, UNSP, NOT INTRACTABLE, WITHOUT STATUS EPILEPTICUS ASSESSMENT AND PLAN: s/p Cardiopulmonary Arrest Acute Hypoxic and Hypercapneic Respiratory Failure Likely Aspiration Pneumonia S/P Septic Shock Acute on Chronic Renal Failure improving Lactic Acidosis Bullous Pemphigoid CAD LV Diastolic Dysfunction Atrial Fibrillation Seizure Disorder h/o CVA Hypothyroidism Anemia Thrombocytopenia - ABX - monitor H/H - monitor urine output, creatinine - rate control - PRN MS & Ativan - Wean trials as tolerated - enteral feeds - DVT/GI prophylaxis - Lou Contreras Problem List - Problems (1) Bullous pemphigoid Code(s): L12.0 - BULLOUS PEMPHIGOID (2) Generalized weakness Code(s): R53.1 - WEAKNESS (3) Unable to ambulate Code(s): R26.2 - DIFFICULTY IN WALKING, NOT ELSEWHERE CLASSIFIED (4) Blisters of multiple sites Code(s): R23.8 - OTHER SKIN CHANGES (5) Abnormal liver enzymes Code(s): R74.8 - ABNORMAL LEVELS OF OTHER SERUM ENZYMES (6) Wound of foot Code(s): S91.309A - UNSPECIFIED OPEN WOUND, UNSPECIFIED FOOT, INITIAL ENCOUNTER (7) Afib Code(s): I48.91 - UNSPECIFIED ATRIAL FIBRILLATION (8) Anemia Code(s): D64.9 - ANEMIA, UNSPECIFIED Qualifiers: Iron deficiency anemia type: chronic blood loss (9) BPH (benign prostatic hyperplasia) Code(s): N40.0 - BENIGN PROSTATIC HYPERPLASIA WITHOUT LOWER URINRY TRACT SYMP (10) CAD (coronary artery disease) Code(s): I25.10 - ATHSCL HEART DISEASE OF [place] CORONARY ARTERY W/O ANG PCTRS (11) CHF (congestive heart failure) Code(s): I50.9 - HEART FAILURE, UNSPECIFIED (12) CKD (chronic kidney disease) Code(s): N18.9 - CHRONIC KIDNEY DISEASE, UNSPECIFIED (13) Diabetes mellitus Code(s): E11.9 - TYPE 2 DIABETES MELLITUS WITHOUT COMPLICATIONS (14) Diastolic CHF Code(s): I50.30 - UNSPECIFIED DIASTOLIC (CONGESTIVE) HEART FAILURE (15) Gastritis Code(s): K29.70 - GASTRITIS, UNSPECIFIED, WITHOUT BLEEDING (16) HTN (hypertension) Code(s): I10 - ESSENTIAL (PRIMARY) HYPERTENSION (17) History of colon cancer Code(s): Z85.038 - PERSONAL HISTORY OF MALIGNANT NEOPLASM OF LARGE INTESTINE (18) History of duodenal ulcer Code(s): Z87.19 - PERSONAL HISTORY OF OTHER DISEASES OF THE DIGESTIVE SYSTEM (19) Hyperlipidemia Code(s): E78.5 - HYPERLIPIDEMIA, UNSPECIFIED (20) Hypothyroid Code(s): E03.9 - HYPOTHYROIDISM, UNSPECIFIED (21) Paroxysmal atrial fibrillation Code(s): I48.0 - PAROXYSMAL ATRIAL FIBRILLATION (22) Peripheral arterial disease Code(s): I73.9 - PERIPHERAL VASCULAR DISEASE, UNSPECIFIED (23) Peripheral vascular disease Code(s): I73.9 - PERIPHERAL VASCULAR DISEASE, UNSPECIFIED (24) Pulmonary hypertension Code(s): I27.2 - OTHER SECONDARY PULMONARY HYPERTENSION * DO NOT USE * (25) Seizure Code(s): R56.9 - UNSPECIFIED CONVULSIONS (26) Seizure disorder Code(s): G40.909 - EPILEPSY, UNSP, NOT INTRACTABLE, WITHOUT STATUS EPILEPTICUS
--- NOTE | 2020-01-08 15:06 | PN ---
Progress Note, Physician History of Present Illness: Pt seen and examined at bedside. He appears comfortable. - Current Medication List Current Medications: Active Medications Acetaminophen (Tylenol Oral Solution -) 650 mg GT Q4H PRN PRN Reason: PAIN Last Admin: 01/06/20 16:21 Dose: 650 mg Documented by: Amino Acids (Prosource No Carb Liquid Pkt) 30 ml PO DAILY [facility] Last Admin: 01/08/20 10:40 Dose: 30 ml Documented by: Artificial Tears (Artificial Tears) 1 drop OU BID PRN PRN Reason: DRY EYES Banana Based Medical Food (Banatrol Plus Powder Packet) 1 packet PO TID [facility] Last Admin: 01/08/20 14:10 Dose: 1 packet Documented by: Collagenase (Santyl -) 1 applic TP DAILY [facility]; Protocol Last Admin: 01/08/20 10:42 Dose: 1 applic Documented by: Famotidine (Pepcid) 20 mg PEG DAILY [facility] Last Admin: 01/08/20 10:56 Dose: 20 mg Documented by: IV Flush (Triple Lumen Flush) 4 ml IVPUSH PRN PRN PRN Reason: Protocol Levetiracetam (Keppra Oral Solution -) 500 mg GT BID [facility] Last Admin: 01/08/20 10:40 Dose: 500 mg Documented by: Levothyroxine Sodium (Synthroid -) 25 mcg GT DAILY@0700 [facility] Last Admin: 01/08/20 06:41 Dose: 25 mcg Documented by: Mycophenolate Mofetil (Cellcept Suspension -) 500 mg NGT BID [facility] Last Admin: 01/08/20 10:56 Dose: 500 mg Documented by: Rosuvastatin Calcium (Crestor -) 10 mg PO HS [facility] Last Admin: 01/07/20 22:14 Dose: 10 mg Documented by: Sevelamer Carbonate (Renvela Powder Packet -) 0.8 gm PO TIDCM [facility] Last Admin: 01/08/20 14:10 Dose: 0.8 gm Documented by: Silver Sulfadiazine (Silvadene -) 1 applic TP BID [facility] Last Admin: 01/08/20 10:41 Dose: 1 applic Documented by: - Objective Vital Signs: Vital Signs Temperature 98.1 F 01/08/20 06:00 Pulse Rate 72 01/08/20 06:00 Respiratory Rate 20 01/08/20 12:46 Blood Pressure 147/66 01/08/20 06:00 O2 Sat by Pulse Oximetry (%) 100 01/08/20 12:46 Constitutional: Yes: Calm Eyes: Yes: Conjunctiva Clear HENT: Yes: Atraumatic Neck: Yes: Supple Cardiovascular: Yes: S1, S2 Respiratory: Yes: Mechanically Ventilated Gastrointestinal: Yes: Soft Genitourinary: Yes: Incontinence Edema: Yes Edema: LLE: Trace, RLE: Trace Integumentary: Yes: Other (bullous pemphigoid) Neurological: Yes: Other (awake) Labs: CBC, BMP 01/08/20 06:30 01/08/20 06:30 INR, PTT INR 1.14 (0.83-1.09) H 12/26/19 08:05 Problem List - Problems (1) Acute respiratory failure Code(s): J96.00 - ACUTE RESPIRATORY FAILURE, UNSP W HYPOXIA OR HYPERCAPNIA (2) Bullous pemphigoid Code(s): L12.0 - BULLOUS PEMPHIGOID Assessment/Plan Current Medications Generic Name Dose Route Start Last Admin Trade Name Freq PRN Reason Stop Dose Admin Acetaminophen 650 mg 01/05/20 12:12 01/06/20 16:21 Tylenol Oral Solution - GT 650 mg Q4H PRN Administration PAIN Amino Acids 30 ml 12/31/19 10:00 01/08/20 10:40 Prosource No Carb Liquid Pkt PO 30 ml DAILY [facility] Administration Artificial Tears 1 drop 12/30/19 14:58 Artificial Tears OU BID PRN DRY EYES Banana Based Medical Food 1 packet 01/05/20 14:00 01/08/20 14:10 Banatrol Plus Powder Packet PO 1 packet TID [facility] Administration Collagenase 1 applic 01/02/20 10:45 01/08/20 10:42 Santyl - TP 1 applic DAILY [facility] Administration Protocol Famotidine 20 mg 01/08/20 10:00 01/08/20 10:56 Pepcid PEG 20 mg DAILY [facility] Administration IV Flush 4 ml 12/31/19 13:49 Triple Lumen Flush IVPUSH PRN PRN Protocol Levetiracetam 500 mg 01/07/20 22:00 01/08/20 10:40 Keppra Oral Solution - GT 500 mg BID [facility] Administration Levothyroxine Sodium 25 mcg 01/08/20 07:00 01/08/20 06:41 Synthroid - GT 25 mcg DAILY@0700 [facility] Administration Mycophenolate Mofetil 500 mg 12/31/19 22:00 01/08/20 10:56 Cellcept Suspension - NGT 500 mg BID [facility] Administration Rosuvastatin Calcium 10 mg 12/30/19 22:00 01/07/20 22:14 Crestor - PO 10 mg HS [facility] Administration Sevelamer Carbonate 0.8 gm 12/30/19 17:30 01/08/20 14:10 Renvela Powder Packet - PO 0.8 gm TIDCM [facility] Administration Silver Sulfadiazine 1 applic 12/30/19 22:00 01/08/20 10:41 Silvadene - TP 1 applic BID [facility] Administration Impression 1. CKD 2. CHF 3. BPH 4. a. fib 5. CAD 6. epilepsy 7. proteinuria 8. anemia 9. foot ulcer 10. abd wall cellulitis 11. bullous pemphigoid 12. LETITIA 13. hyperkalemia 14. cardiac arrest 15. resp failure on vent 16. r/o aspiration Plan - frame runner stabilizing - cont feeds - lasix as needed - vent support - monitor lytes - cont pulm rehab - cellcept for bullous pemphigoid - cont to monitor renal function - cont wound care
[2020-01-08] MEDS: ROSUVASTATIN CA 10 MG TABLET (FP) PO SCH (22:44)
[2020-01-09] MEDS: BANATROL PLUS POWDER PACKET PO SCH ×3 (06:20→22:18)
[2020-01-09] MEDS: LEVOTHYROXINE NA 25 MCG TABLET (FP) GT SCH (06:21)
[2020-01-09] MEDS ORDERED: PT OWN MED DRAWER 7, Y5N ONE ×5 (08:28→22:17)
[2020-01-09] MEDS: SEVELAMER CARBONATE 0.8 GM POWDER PACKET PO SCH ×3 (08:48→17:59)
[2020-01-09] MEDS: levETIRAcetam 500 MG/5 ML ORAL SOLUTION (UNIT-DOSE CUPS) GT SCH ×2 (11:27→22:18)
[2020-01-09] MEDS: AMINO ACIDS/PROTEIN HYDROLYS 30 ML LIQUID.PKT PO SCH (11:28)
[2020-01-09] MEDS: FAMOTIDINE 40 MG/5 ML ORAL SUSPENSION PEG SCH (11:28)
[2020-01-09] MEDS: SILVER SULFADIAZINE 1% TOP CREAM 50 GM JAR TP SCH ×2 (11:28→22:18)
[2020-01-09] MEDS: COLLAGENASE CLOSTRIDIUM HIST. 30 GRAMS TUBE TP SCH (11:29)
--- NOTE | 2020-01-09 12:06 | PN ---
Progress Note, Physician Chief Complaint: s/p Cardiopulmonary Arrest Acute Hypoxic and Hypercapneic Respiratory Failure Likely Aspiration Pneumonia Septic Shock Acute on Chronic Renal Failure Lactic Acidosis Bullous Pemphigoid CAD LV Diastolic Dysfunction Atrial Fibrillation Seizure Disorder h/o CVA Hypothyroidism Anemia Thrombocytopenia History of Present Illness: NAD Lethargic S/P PEG diarrhea resolved rectal tube discontinued afebrile Off IV abx BC negative so far Cdiff negative - Current Medication List Current Medications: Active Medications Acetaminophen (Tylenol Oral Solution -) 650 mg GT Q4H PRN PRN Reason: PAIN Last Admin: 01/06/20 16:21 Dose: 650 mg Documented by: Amino Acids (Prosource No Carb Liquid Pkt) 30 ml PO DAILY [facility] Last Admin: 01/09/20 11:28 Dose: 30 ml Documented by: Artificial Tears (Artificial Tears) 1 drop OU BID PRN PRN Reason: DRY EYES Banana Based Medical Food (Banatrol Plus Powder Packet) 1 packet PO TID [facility] Last Admin: 01/09/20 06:20 Dose: 1 packet Documented by: Collagenase (Santyl -) 1 applic TP DAILY [facility]; Protocol Last Admin: 01/09/20 11:29 Dose: 1 applic Documented by: Famotidine (Pepcid) 20 mg PEG DAILY [facility] Last Admin: 01/09/20 11:28 Dose: 20 mg Documented by: IV Flush (Triple Lumen Flush) 4 ml IVPUSH PRN PRN PRN Reason: Protocol Levetiracetam (Keppra Oral Solution -) 500 mg GT BID [facility] Last Admin: 01/09/20 11:27 Dose: 500 mg Documented by: Levothyroxine Sodium (Synthroid -) 25 mcg GT DAILY@0700 [facility] Last Admin: 01/09/20 06:21 Dose: 25 mcg Documented by: Mycophenolate Mofetil (Cellcept Suspension -) 500 mg NGT BID [facility] Last Admin: 01/08/20 22:45 Dose: 500 mg Documented by: Rosuvastatin Calcium (Crestor -) 10 mg PO HS [facility] Last Admin: 01/08/20 22:44 Dose: 10 mg Documented by: Sevelamer Carbonate (Renvela Powder Packet -) 0.8 gm PO TIDCM [facility] Last Admin: 01/09/20 11:28 Dose: 0.8 gm Documented by: Silver Sulfadiazine (Silvadene -) 1 applic TP BID [facility] Last Admin: 01/09/20 11:28 Dose: 1 applic Documented by: - Objective Vital Signs: Vital Signs Temperature 99.1 F 01/09/20 08:55 Pulse Rate 74 01/09/20 08:55 Respiratory Rate 18 01/09/20 09:00 Blood Pressure 148/67 01/09/20 08:55 O2 Sat by Pulse Oximetry (%) 98 01/09/20 09:00 Constitutional: Yes: Well Nourished, No Distress, Calm Cardiovascular: Yes: Regular Rate and Rhythm Respiratory: Yes: Regular, CTA Bilaterally Gastrointestinal: Yes: Normal Bowel Sounds, Soft Genitourinary: Yes: Incontinence Musculoskeletal: Yes: Muscle Weakness Extremities: Yes: Other (generalized atrophy) Edema: No Peripheral Pulses WNL: Yes Neurological: Yes: Lethargy Labs: CBC, BMP 01/08/20 06:30 01/08/20 06:30 INR, PTT INR 1.14 (0.83-1.09) H 12/26/19 08:05 Problem List - Problems (1) Acute respiratory failure Assessment/Plan: -Mech vent -Pulmonary consult -S/P PEG placement -Continue TF -Bronchodilators Problems reviewed: Yes Code(s): J96.00 - ACUTE RESPIRATORY FAILURE, UNSP W HYPOXIA OR HYPERCAPNIA (2) Bullous pemphigoid Assessment/Plan: -Cellcept restarted -Silvadene top Problems reviewed: Yes Code(s): L12.0 - BULLOUS PEMPHIGOID (3) Acute on chronic renal insufficiency Assessment/Plan: -Nephrology on board -monitor daily labs Problems reviewed: Yes Code(s): N28.9 - DISORDER OF KIDNEY AND URETER, UNSPECIFIED; N18.9 - CHRONIC KIDNEY DISEASE, UNSPECIFIED (4) Pneumonia Assessment/Plan: -Likely aspiration -CXR reviewed -COVID 19 PCR negative -Off IV abx -ID consult -Lactic acidosis noted -afebrile Problems reviewed: Yes Code(s): J18.9 - PNEUMONIA, UNSPECIFIED ORGANISM (5) Afib Assessment/Plan: -Chronic, rate controlled -Eliquis Held due to acute GI bleed -Transfuse only if Hg <7.0 to avoid fluid overload Problems reviewed: Yes Code(s): I48.91 - UNSPECIFIED ATRIAL FIBRILLATION (6) Anemia Assessment/Plan: -Chronic -H/H stable at this time -workup last admission was negative -hematology consult -Transfuse only if hg<7.0 to avoid fluid overload. -Procrit as per hematology Problems reviewed: Yes Code(s): D64.9 - ANEMIA, UNSPECIFIED (7) Diarrhea Assessment/Plan: -likely Refeeding syndrome -Rectal tube dc'd -Cdiff PCR negative Problems reviewed: Yes Code(s): R19.7 - DIARRHEA, UNSPECIFIED Assessment/Plan See problem list GI PPX COVID 19 PCR pending in preparation of discharge
--- NOTE | 2020-01-09 12:15 | PN ---
Progress Note (short form) - Note Progress Note: PULMONARY Awake on AC Mode of vent. 12/400/40/5/ Denies CP or SOB. No acute events overnight. LOW GRADE TEMP Eyes: Yes: WNL HENT: Yes: WNL Neck: Yes: WNL Cardiovascular: Yes: Pulse Irregular, S1, S2 Respiratory: Yes: Vented, Diminished, Rhonchi Gastrointestinal: Yes: Normal Bowel Sounds, Soft Extremities: Yes: WNL Edema: No Labs/MEDS/NOTES/IMAGES NOTED ASSESSMENT AND PLAN: s/p Cardiopulmonary Arrest Acute Hypoxic and Hypercapneic Respiratory Failure Likely Aspiration Pneumonia S/P Septic Shock Acute on Chronic Renal Failure improving Lactic Acidosis Bullous Pemphigoid CAD LV Diastolic Dysfunction Atrial Fibrillation Seizure Disorder h/o CVA Hypothyroidism Anemia Thrombocytopenia - ABX - monitor H/H - monitor urine output, creatinine - rate control - PRN MS & Ativan - Wean trials as tolerated - enteral feeds - DVT/GI prophylaxis - Lou TARANGO MD
[2020-01-09] MEDS ORDERED: FUROSEMIDE 40 MG/5 ML UNIT-DOSE CUP PO ONE (15:22)
--- NOTE | 2020-01-09 15:23 | PN ---
Progress Note, Physician History of Present Illness: Pt seen and examined at bedside. NO great change in status. - Current Medication List Current Medications: Active Medications Acetaminophen (Tylenol Oral Solution -) 650 mg GT Q4H PRN PRN Reason: PAIN Last Admin: 01/06/20 16:21 Dose: 650 mg Documented by: Amino Acids (Prosource No Carb Liquid Pkt) 30 ml PO DAILY [facility] Last Admin: 01/09/20 11:28 Dose: 30 ml Documented by: Artificial Tears (Artificial Tears) 1 drop OU BID PRN PRN Reason: DRY EYES Banana Based Medical Food (Banatrol Plus Powder Packet) 1 packet PO TID [facility]EL Last Admin: 01/09/20 06:20 Dose: 1 packet Documented by: Collagenase (Santyl -) 1 applic TP DAILY [facility]; Protocol Last Admin: 01/09/20 11:29 Dose: 1 applic Documented by: Famotidine (Pepcid) 20 mg PEG DAILY [facility] Last Admin: 01/09/20 11:28 Dose: 20 mg Documented by: IV Flush (Triple Lumen Flush) 4 ml IVPUSH PRN PRN PRN Reason: Protocol Levetiracetam (Keppra Oral Solution -) 500 mg GT BID [facility] Last Admin: 01/09/20 11:27 Dose: 500 mg Documented by: Levothyroxine Sodium (Synthroid -) 25 mcg GT DAILY@0700 [facility] Last Admin: 01/09/20 06:21 Dose: 25 mcg Documented by: Mycophenolate Mofetil (Cellcept Suspension -) 500 mg NGT BID [facility] Last Admin: 01/08/20 22:45 Dose: 500 mg Documented by: Rosuvastatin Calcium (Crestor -) 10 mg PO HS [facility] Last Admin: 01/08/20 22:44 Dose: 10 mg Documented by: Sevelamer Carbonate (Renvela Powder Packet -) 0.8 gm PO TIDCM [facility] Last Admin: 01/09/20 11:28 Dose: 0.8 gm Documented by: Silver Sulfadiazine (Silvadene -) 1 applic TP BID [facility] Last Admin: 01/09/20 11:28 Dose: 1 applic Documented by: - Objective Vital Signs: Vital Signs Temperature 99.1 F 01/09/20 08:55 Pulse Rate 74 01/09/20 08:55 Respiratory Rate 25 H 01/09/20 12:25 Blood Pressure 148/67 01/09/20 08:55 O2 Sat by Pulse Oximetry (%) 97 01/09/20 10:00 Constitutional: Yes: Calm Eyes: Yes: Conjunctiva Clear HENT: Yes: Atraumatic Cardiovascular: Yes: S1, S2 Respiratory: Yes: Mechanically Ventilated Gastrointestinal: Yes: Soft Musculoskeletal: Yes: Muscle Weakness Edema: Yes Edema: LLE: Trace, RLE: Trace Neurological: Yes: Other (awake) Labs: CBC, BMP 01/08/20 06:30 01/08/20 06:30 INR, PTT INR 1.14 (0.83-1.09) H 12/26/19 08:05 Problem List - Problems (1) Acute respiratory failure Code(s): J96.00 - ACUTE RESPIRATORY FAILURE, UNSP W HYPOXIA OR HYPERCAPNIA (2) Bullous pemphigoid Code(s): L12.0 - BULLOUS PEMPHIGOID Assessment/Plan Current Medications Generic Name Dose Route Start Last Admin Trade Name Freq PRN Reason Stop Dose Admin Acetaminophen 650 mg 01/05/20 12:12 01/06/20 16:21 Tylenol Oral Solution - GT 650 mg Q4H PRN Administration PAIN Amino Acids 30 ml 12/31/19 10:00 01/09/20 11:28 Prosource No Carb Liquid Pkt PO 30 ml DAILY [facility] Administration Artificial Tears 1 drop 12/30/19 14:58 Artificial Tears OU BID PRN DRY EYES Banana Based Medical Food 1 packet 01/05/20 14:00 01/09/20 06:20 Banatrol Plus Powder Packet PO 1 packet TID MIC[facility]EL Administration Collagenase 1 applic 01/02/20 10:45 01/09/20 11:29 Santyl - TP 1 applic DAILY [facility] Administration Protocol Famotidine 20 mg 01/08/20 10:00 01/09/20 11:28 Pepcid PEG 20 mg DAILY [facility] Administration IV Flush 4 ml 12/31/19 13:49 Triple Lumen Flush IVPUSH PRN PRN Protocol Levetiracetam 500 mg 01/07/20 22:00 01/09/20 11:27 Keppra Oral Solution - GT 500 mg BID [facility]EL Administration Levothyroxine Sodium 25 mcg 01/08/20 07:00 01/09/20 06:21 Synthroid - GT 25 mcg DAILY@0700 [facility] Administration Mycophenolate Mofetil 500 mg 12/31/19 22:00 01/08/20 22:45 Cellcept Suspension - NGT 500 mg BID [facility] Administration Rosuvastatin Calcium 10 mg 12/30/19 22:00 01/08/20 22:44 Crestor - PO 10 mg HS MICHAEL Administration Sevelamer Carbonate 0.8 gm 12/30/19 17:30 01/09/20 11:28 Renvela Powder Packet - PO 0.8 gm TIDCM MICHAEL Administration Silver Sulfadiazine 1 applic 12/30/19 22:00 01/09/20 11:28 Silvadene - TP 1 applic BID MICHAEL Administration Impression 1. CKD 2. CHF 3. BPH 4. a. fib 5. CAD 6. epilepsy 7. proteinuria 8. anemia 9. foot ulcer 10. abd wall cellulitis 11. bullous pemphigoid 12. LETITIA 13. hyperkalemia 14. cardiac arrest 15. resp failure on vent 16. r/o aspiration Plan - renal function stable - lasix prn - cont feeds - vent support - cont pulm rehab - cellcept for bullous pemphigoid - cont wound care
[2020-01-09] MEDS: MYCOPHENOLATE MOFETIL 200 MG/ML SUSPENSION NGT SCH ×2 (15:29→22:18)
[2020-01-09] MEDS: ROSUVASTATIN CA 10 MG TABLET (FP) PO SCH (22:18)
[2020-01-10] MEDS: LEVOTHYROXINE NA 25 MCG TABLET (FP) GT SCH (06:41)
[2020-01-10] MEDS: BANATROL PLUS POWDER PACKET PO SCH ×3 (06:41→22:30)
[2020-01-10 06:48] LABS: BLOOD UREA NITROGEN 78.4 mg/dL (7-18); CALCIUM 7.9 mg/dL (8.5-10.1); CREATININE 1.3 mg/dL (0.55-1.3); POTASSIUM 3.9 mmol/L (3.5-5.1)
--- NOTE | 2020-01-10 09:44 | PN ---
Progress Note, Physician Chief Complaint: s/p Cardiopulmonary Arrest Acute Hypoxic and Hypercapneic Respiratory Failure Likely Aspiration Pneumonia Septic Shock Acute on Chronic Renal Failure Lactic Acidosis Bullous Pemphigoid CAD LV Diastolic Dysfunction Atrial Fibrillation Seizure Disorder h/o CVA Hypothyroidism Anemia Thrombocytopenia History of Present Illness: NAD Lethargic S/P PEG diarrhea resolved rectal tube discontinued afebrile Off IV abx BC negative so far Cdiff negative - Current Medication List Current Medications: Active Medications Acetaminophen (Tylenol Oral Solution -) 650 mg GT Q4H PRN PRN Reason: PAIN Last Admin: 01/06/20 16:21 Dose: 650 mg Documented by: Amino Acids (Prosource No Carb Liquid Pkt) 30 ml PO DAILY [facility] Last Admin: 01/09/20 11:28 Dose: 30 ml Documented by: Artificial Tears (Artificial Tears) 1 drop OU BID PRN PRN Reason: DRY EYES Banana Based Medical Food (Banatrol Plus Powder Packet) 1 packet PO TID [facility] Last Admin: 01/10/20 06:41 Dose: 1 packet Documented by: Collagenase (Santyl -) 1 applic TP DAILY [facility]; Protocol Last Admin: 01/09/20 11:29 Dose: 1 applic Documented by: Famotidine (Pepcid) 20 mg PEG DAILY [facility] Last Admin: 01/09/20 11:28 Dose: 20 mg Documented by: IV Flush (Triple Lumen Flush) 4 ml IVPUSH PRN PRN PRN Reason: Protocol Levetiracetam (Keppra Oral Solution -) 500 mg GT BID [facility] Last Admin: 01/09/20 22:18 Dose: 500 mg Documented by: Levothyroxine Sodium (Synthroid -) 25 mcg GT DAILY@0700 [facility] Last Admin: 01/10/20 06:41 Dose: 25 mcg Documented by: Mycophenolate Mofetil (Cellcept Suspension -) 500 mg NGT BID [facility] Last Admin: 01/09/20 22:18 Dose: 500 mg Documented by: Rosuvastatin Calcium (Crestor -) 10 mg PO HS [facility] Last Admin: 01/09/20 22:18 Dose: 10 mg Documented by: Sevelamer Carbonate (Renvela Powder Packet -) 0.8 gm PO TIDCM [facility] Last Admin: 01/09/20 17:59 Dose: 0.8 gm Documented by: Silver Sulfadiazine (Silvadene -) 1 applic TP BID [facility] Last Admin: 01/09/20 22:18 Dose: 1 applic Documented by: - Objective Vital Signs: Vital Signs Temperature 98.2 F 01/10/20 06:00 Pulse Rate 62 01/10/20 08:26 Respiratory Rate 14 01/10/20 08:26 Blood Pressure 154/77 01/10/20 06:00 O2 Sat by Pulse Oximetry (%) 100 01/10/20 08:26 Constitutional: Yes: Well Nourished, No Distress, Calm Cardiovascular: Yes: Regular Rate and Rhythm Respiratory: Yes: Regular, Mechanically Ventilated, Rales (diffuse) Gastrointestinal: Yes: Normal Bowel Sounds, Soft Genitourinary: Yes: Incontinence Musculoskeletal: Yes: Muscle Weakness Edema: No Peripheral Pulses WNL: Yes Neurological: Yes: Lethargy Labs: CBC, BMP 01/08/20 06:30 01/10/20 05:55 INR, PTT INR 1.14 (0.83-1.09) H 12/26/19 08:05 Problem List - Problems (1) Acute respiratory failure Assessment/Plan: -Mech vent -Pulmonary consult -S/P PEG placement -Continue TF -Bronchodilators Problems reviewed: Yes Code(s): J96.00 - ACUTE RESPIRATORY FAILURE, UNSP W HYPOXIA OR HYPERCAPNIA (2) Bullous pemphigoid Assessment/Plan: -Cellcept restarted -Silvadene top Problems reviewed: Yes Code(s): L12.0 - BULLOUS PEMPHIGOID (3) Acute on chronic renal insufficiency Assessment/Plan: -Nephrology on board -monitor daily labs Problems reviewed: Yes Code(s): N28.9 - DISORDER OF KIDNEY AND URETER, UNSPECIFIED; N18.9 - CHRONIC KIDNEY DISEASE, UNSPECIFIED (4) Pneumonia Assessment/Plan: -Likely aspiration -CXR reviewed -COVID 19 PCR negative -Off IV abx -ID consult -Lactic acidosis noted -afebrile Problems reviewed: Yes Code(s): J18.9 - PNEUMONIA, UNSPECIFIED ORGANISM (5) Afib Assessment/Plan: -Chronic, rate controlled -Eliquis Held due to acute GI bleed -Transfuse only if Hg <7.0 to avoid fluid overload Problems reviewed: Yes Code(s): I48.91 - UNSPECIFIED ATRIAL FIBRILLATION (6) Anemia Assessment/Plan: -Chronic -H/H stable at this time -workup last admission was negative -hematology consult -Transfuse only if hg<7.0 to avoid fluid overload. -Procrit as per hematology Problems reviewed: Yes Code(s): D64.9 - ANEMIA, UNSPECIFIED (7) Diarrhea Assessment/Plan: -likely Refeeding syndrome -Rectal tube dc'd -Cdiff PCR negative Problems reviewed: Yes Code(s): R19.7 - DIARRHEA, UNSPECIFIED Assessment/Plan See problem list GI PPX COVID 19 PCR negative
[2020-01-10] MEDS ORDERED: PT OWN MED DRAWER 7, Y5N ONE ×4 (10:50→22:21)
[2020-01-10] MEDS: levETIRAcetam 500 MG/5 ML ORAL SOLUTION (UNIT-DOSE CUPS) GT SCH ×2 (11:06→22:29)
[2020-01-10] MEDS: SEVELAMER CARBONATE 0.8 GM POWDER PACKET PO SCH ×3 (11:06→18:33)
[2020-01-10] MEDS: COLLAGENASE CLOSTRIDIUM HIST. 30 GRAMS TUBE TP SCH (11:06)
[2020-01-10] MEDS: AMINO ACIDS/PROTEIN HYDROLYS 30 ML LIQUID.PKT PO SCH (11:06)
[2020-01-10] MEDS: FAMOTIDINE 40 MG/5 ML ORAL SUSPENSION PEG SCH (11:06)
[2020-01-10] MEDS: MYCOPHENOLATE MOFETIL 200 MG/ML SUSPENSION NGT SCH ×2 (11:06→22:29)
[2020-01-10] MEDS: SILVER SULFADIAZINE 1% TOP CREAM 50 GM JAR TP SCH ×2 (11:07→22:30)
--- NOTE | 2020-01-10 14:15 | PN ---
Progress Note, Physician History of Present Illness: Pt seen and examined at bedside. He is awake and appears comfortable. - Current Medication List Current Medications: Active Medications Acetaminophen (Tylenol Oral Solution -) 650 mg GT Q4H PRN PRN Reason: PAIN Last Admin: 01/06/20 16:21 Dose: 650 mg Documented by: Amino Acids (Prosource No Carb Liquid Pkt) 30 ml PO DAILY [facility] Last Admin: 01/10/20 11:06 Dose: 30 ml Documented by: Artificial Tears (Artificial Tears) 1 drop OU BID PRN PRN Reason: DRY EYES Banana Based Medical Food (Banatrol Plus Powder Packet) 1 packet PO TID [facility]EL Last Admin: 01/10/20 06:41 Dose: 1 packet Documented by: Collagenase (Santyl -) 1 applic TP DAILY [facility]HAEL; Protocol Last Admin: 01/10/20 11:06 Dose: 1 applic Documented by: Famotidine (Pepcid) 20 mg PEG DAILY [facility] Last Admin: 01/10/20 11:06 Dose: 20 mg Documented by: IV Flush (Triple Lumen Flush) 4 ml IVPUSH PRN PRN PRN Reason: Protocol Levetiracetam (Keppra Oral Solution -) 500 mg GT BID [facility] Last Admin: 01/10/20 11:06 Dose: 500 mg Documented by: Levothyroxine Sodium (Synthroid -) 25 mcg GT DAILY@0700 [facility] Last Admin: 01/10/20 06:41 Dose: 25 mcg Documented by: Mycophenolate Mofetil (Cellcept Suspension -) 500 mg NGT BID [facility] Last Admin: 01/10/20 11:06 Dose: 500 mg Documented by: Rosuvastatin Calcium (Crestor -) 10 mg PO HS MICHAEL Last Admin: 01/09/20 22:18 Dose: 10 mg Documented by: Sevelamer Carbonate (Renvela Powder Packet -) 0.8 gm PO TIDCM [facility]EL Last Admin: 01/10/20 11:06 Dose: 0.8 gm Documented by: Silver Sulfadiazine (Silvadene -) 1 applic TP BID [facility] Last Admin: 01/10/20 11:07 Dose: 1 applic Documented by: - Objective Vital Signs: Vital Signs Temperature 99.4 F 01/10/20 10:00 Pulse Rate 74 01/10/20 10:00 Respiratory Rate 18 01/10/20 11:05 Blood Pressure 162/68 01/10/20 10:00 O2 Sat by Pulse Oximetry (%) 100 01/10/20 11:05 Constitutional: Yes: Calm Eyes: Yes: Conjunctiva Clear HENT: Yes: Atraumatic Neck: Yes: Supple Cardiovascular: Yes: S1, S2 Respiratory: Yes: Mechanically Ventilated Gastrointestinal: Yes: Normal Bowel Sounds, Soft Genitourinary: Yes: WNL Musculoskeletal: Yes: WNL Edema: Yes Edema: LLE: Trace, RLE: Trace Integumentary: Yes: Other (bullous pemphigoid) Neurological: Yes: Other (awake) Labs: CBC, BMP 01/08/20 06:30 01/10/20 05:55 INR, PTT INR 1.14 (0.83-1.09) H 12/26/19 08:05 Problem List - Problems (1) Acute respiratory failure Code(s): J96.00 - ACUTE RESPIRATORY FAILURE, UNSP W HYPOXIA OR HYPERCAPNIA (2) Bullous pemphigoid Code(s): L12.0 - BULLOUS PEMPHIGOID Assessment/Plan Current Medications Generic Name Dose Route Start Last Admin Trade Name Freq PRN Reason Stop Dose Admin Acetaminophen 650 mg 01/05/20 12:12 01/06/20 16:21 Tylenol Oral Solution - GT 650 mg Q4H PRN Administration PAIN Amino Acids 30 ml 12/31/19 10:00 01/10/20 11:06 Prosource No Carb Liquid Pkt PO 30 ml DAILY MICHAEL Administration Artificial Tears 1 drop 12/30/19 14:58 Artificial Tears OU BID PRN DRY EYES Banana Based Medical Food 1 packet 01/05/20 14:00 01/10/20 06:41 Banatrol Plus Powder Packet PO 1 packet TID MICHAEL Administration Collagenase 1 applic 01/02/20 10:45 01/10/20 11:06 Santyl - TP 1 applic DAILY MICHAEL Administration Protocol Famotidine 20 mg 01/08/20 10:00 01/10/20 11:06 Pepcid PEG 20 mg DAILY MICHAEL Administration IV Flush 4 ml 12/31/19 13:49 Triple Lumen Flush IVPUSH PRN PRN Protocol Levetiracetam 500 mg 01/07/20 22:00 01/10/20 11:06 Keppra Oral Solution - GT 500 mg BID MICHAEL Administration Levothyroxine Sodium 25 mcg 01/08/20 07:00 01/10/20 06:41 Synthroid - GT 25 mcg DAILY@0700 MICHAEL Administration Mycophenolate Mofetil 500 mg 12/31/19 22:00 01/10/20 11:06 Cellcept Suspension - NGT 500 mg BID MICHAEL Administration Rosuvastatin Calcium 10 mg 12/30/19 22:00 01/09/20 22:18 Crestor - PO 10 mg HS MICHAEL Administration Sevelamer Carbonate 0.8 gm 12/30/19 17:30 01/10/20 11:06 Renvela Powder Packet - PO 0.8 gm TIDCM MICHAEL Administration Silver Sulfadiazine 1 applic 12/30/19 22:00 01/10/20 11:07 Silvadene - TP 1 applic BID MICHAEL Administration Impression 1. CKD 2. CHF 3. BPH 4. a. fib 5. CAD 6. epilepsy 7. proteinuria 8. anemia 9. foot ulcer 10. abd wall cellulitis 11. bullous pemphigoid 12. LETITIA 13. hyperkalemia 14. cardiac arrest 15. resp failure on vent 16. 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
[2020-01-10] MEDS: ROSUVASTATIN CA 10 MG TABLET (FP) PO SCH (22:29)
[2020-01-11] MEDS: BANATROL PLUS POWDER PACKET PO SCH ×3 (06:03→21:22)
[2020-01-11] MEDS: LEVOTHYROXINE NA 25 MCG TABLET (FP) GT SCH (06:03)
--- NOTE | 2020-01-11 08:14 | DS ---
Physical Examination Vital Signs: Vital Signs Temperature 99.5 F 01/11/20 05:59 Pulse Rate 73 01/11/20 05:59 Respiratory Rate 22 H 01/11/20 05:59 Blood Pressure 150/73 01/11/20 05:59 O2 Sat by Pulse Oximetry (%) 100 01/11/20 05:59 Findings/Remarks: Problem list: s/p Cardiopulmonary Arrest Acute Hypoxic and Hypercapneic Respiratory Failure Likely Aspiration Pneumonia Septic Shock Acute on Chronic Renal Failure Lactic Acidosis Bullous Pemphigoid CAD LV Diastolic Dysfunction Atrial Fibrillation Seizure Disorder h/o CVA Hypothyroidism Anemia Thrombocytopenia (1) Acute respiratory failure Assessment/Plan: -Mech vent -Pulmonary consult -S/P PEG placement -Continue TF -Bronchodilators Problems reviewed: Yes Code(s): J96.00 - ACUTE RESPIRATORY FAILURE, UNSP W HYPOXIA OR HYPERCAPNIA (2) Bullous pemphigoid Assessment/Plan: -Cellcept restarted -Silvadene top Problems reviewed: Yes Code(s): L12.0 - BULLOUS PEMPHIGOID (3) Acute on chronic renal insufficiency Assessment/Plan: -Nephrology on board -monitor daily labs Problems reviewed: Yes Code(s): N28.9 - DISORDER OF KIDNEY AND URETER, UNSPECIFIED; N18.9 - CHRONIC KIDNEY DISEASE, UNSPECIFIED (4) Pneumonia Assessment/Plan: -Likely aspiration -CXR reviewed -COVID 19 PCR negative -Off IV abx -ID consult -Lactic acidosis noted -afebrile Problems reviewed: Yes Code(s): J18.9 - PNEUMONIA, UNSPECIFIED ORGANISM (5) Afib Assessment/Plan: -Chronic, rate controlled -Eliquis Held due to acute GI bleed -Transfuse only if Hg <7.0 to avoid fluid overload Problems reviewed: Yes Code(s): I48.91 - UNSPECIFIED ATRIAL FIBRILLATION (6) Anemia Assessment/Plan: -Chronic -H/H stable at this time -workup last admission was negative -hematology consult -Transfuse only if hg<7.0 to avoid fluid overload. -Procrit as per hematology Problems reviewed: Yes Code(s): D64.9 - ANEMIA, UNSPECIFIED (7) Diarrhea Assessment/Plan: -resolved -likely Refeeding syndrome -Rectal tube dc'd -Cdiff PCR negative Problems reviewed: Yes Code(s): R19.7 - DIARRHEA, UNSPECIFIED Assessment/Plan See problem list GI PPX COVID 19 PCR negative Constitutional: Yes: Well Nourished, No Distress, Calm Cardiovascular: Yes: Regular Rate and Rhythm Respiratory: Yes: Regular, Mechanically Ventilated, Rhonchi (diffuse) Gastrointestinal: Yes: Normal Bowel Sounds, Soft Renal/: Yes: Incontinence Musculoskeletal: Yes: Muscle Weakness Extremities: Yes: WNL Edema: No Peripheral Pulses WNL: Yes Neurological: Yes: Lethargy Labs: CBC, BMP 01/08/20 06:30 01/10/20 05:55 Discharge Summary Problems reviewed: Yes Reason For Visit: BULLOUS PEMPHIGOID, WEAKNESS, UNABLE TO WALK Current Active Problems Acute respiratory failure (Acute) Bacteremia (Acute) Bullous pemphigoid (Acute) Caregiver unable to cope (Acute) Diabetic ulcer of right foot (Acute) Diarrhea (Acute) Generalized weakness (Acute) Unable to ambulate (Acute) Blisters of multiple sites (Chronic) Hospital Course: Problems (1) Bullous pemphigoid Assessment/Plan: continue with current meds tapering steroids Code(s): L12.0 - BULLOUS PEMPHIGOID (2) Caregiver unable to cope Assessment/Plan: Patient and refused placement now agreeable Code(s): Z74.8 - OTHER PROBLEMS RELATED TO CARE PROVIDER DEPENDENCY (3) Afib Assessment/Plan: on eliquis monitor counts Code(s): I48.91 - UNSPECIFIED ATRIAL FIBRILLATION (4) Anemia Assessment/Plan: hgb 7.7 Code(s): D64.9 - ANEMIA, UNSPECIFIED Qualifiers: Iron deficiency anemia type: chronic blood loss (5) CHF (congestive heart failure) Assessment/Plan: -cxr Code(s): I50.9 - HEART FAILURE, UNSPECIFIED (6) Diabetes mellitus Code(s): E11.9 - TYPE 2 DIABETES MELLITUS WITHOUT COMPLICATIONS (7) Hypothyroidism Code(s): E03.9 - HYPOTHYROIDISM, UNSPECIFIED (8) Altered mental state Assessment/Plan: -Improved -ABG-repeat noted CXR CT HEAD nad FOLLOW LABS Code(s): R41.82 - ALTERED MENTAL STATUS, UNSPECIFIED Condition: Stable - Instructions Disposition: [facility] - Home Medications Comprehensive Discharge Medication List: Ambulatory Orders Levothyroxine [Synthroid -] 25 mcg PO DAILY 07/15/19 levETIRAcetam [Keppra -] 500 mg PO BID 07/15/19 Cholecalciferol (Vitamin D3) [Vitamin D -] 800 unit PO DAILY tab 08/26/19 Rosuvastatin [Crestor -] 10 mg PO DAILY 11/06/19 Furosemide [Lasix -] 20 mg PO DAILY tablet 12/06/19 Mycophenolate Mofetil [Cellcept -] 500 mg PO BID tablet 12/06/19 Acetaminophen Oral Solution [Tylenol Oral Solution -] 650 mg GT Q4H PRN soln.oral 01/09/20 Amino Acids/Protein Hydrolys [Prosource No Carb Liquid Pkt] 30 ml PO DAILY packet 01/09/20 Collagenase Clostridium Hist. [Santyl -] 1 applic TP DAILY tube 01/09/20 Famotidine [Pepcid] 20 mg PEG DAILY oral.susp 01/09/20 Levothyroxine [Synthroid -] 25 mcg GT DAILY@0700 tablet 01/09/20 Mycophenolate Mofetil [Cellcept Suspension 200 mg/mL -] 500 mg NGT BID ml 01/09/20 Polyvinyl Alcohol [Artificial Tears] 1 drop OU BID PRN drops 01/09/20 Sevelamer Carbonate [Renvela Powder Packet -] 0.8 gm PO TIDCM powd.pack 01/09/20 Silver Sulfadiazine 1% Top Cr [Silvadene -] 1 applic TP BID jar 01/09/20 Triple Lumen Flush 4 ml IVPUSH PRN PRN ml 01/09/20 levETIRAcetam [Keppra Oral Solution -] 500 mg GT BID cup 01/09/20 Prescription Drug Monitoring Program (I-STOP) results: I-STOP reviewed and no issues identified
[2020-01-11] MEDS ORDERED: PT OWN MED DRAWER 7, Y5N ONE ×4 (11:09→21:18)
--- NOTE | 2020-01-11 11:12 | PN ---
Progress Note (short form) - Note Progress Note: PULMONARY Awake on SIMV Mode of vent. 12/450/40/5/5 No acute events overnight. LOW GRADE TEMP CONTINUES Eyes: Yes: WNL HENT: Yes: WNL Neck: Yes: WNL Cardiovascular: Yes: Pulse Irregular, S1, S2 Respiratory: Yes: Vented, Diminished, Rhonchi Gastrointestinal: Yes: Normal Bowel Sounds, Soft Extremities: Yes: WNL Edema: No Labs/MEDS/NOTES/IMAGES NOTED ASSESSMENT AND PLAN: s/p Cardiopulmonary Arrest Acute Hypoxic and Hypercapneic Respiratory Failure Likely Aspiration Pneumonia S/P Septic Shock Acute on Chronic Renal Failure improving Lactic Acidosis Bullous Pemphigoid CAD LV Diastolic Dysfunction Atrial Fibrillation Seizure Disorder h/o CVA Hypothyroidism Anemia Thrombocytopenia - monitor H/H - monitor urine output, creatinine - rate control - PRN MS & Ativan - Wean trials as tolerated - enteral feeds - DVT/GI prophylaxis - Lou TARANGO MD
[2020-01-11] MEDS: AMINO ACIDS/PROTEIN HYDROLYS 30 ML LIQUID.PKT PO SCH (11:14)
[2020-01-11] MEDS: SEVELAMER CARBONATE 0.8 GM POWDER PACKET PO SCH ×3 (11:14→18:33)
[2020-01-11] MEDS: MYCOPHENOLATE MOFETIL 200 MG/ML SUSPENSION NGT SCH ×2 (11:14→21:22)
[2020-01-11] MEDS: levETIRAcetam 500 MG/5 ML ORAL SOLUTION (UNIT-DOSE CUPS) GT SCH ×2 (11:14→21:22)
[2020-01-11] MEDS: FAMOTIDINE 40 MG/5 ML ORAL SUSPENSION PEG SCH (11:15)
[2020-01-11] MEDS: COLLAGENASE CLOSTRIDIUM HIST. 30 GRAMS TUBE TP SCH (11:15)
[2020-01-11] MEDS: SILVER SULFADIAZINE 1% TOP CREAM 50 GM JAR TP SCH ×2 (11:15→21:35)
--- NOTE | 2020-01-11 14:53 | PN ---
Progress Note, Physician History of Present Illness: Pt seen and examined at bedside. He appears comfortable. - Current Medication List Current Medications: Active Medications Acetaminophen (Tylenol Oral Solution -) 650 mg GT Q4H PRN PRN Reason: PAIN Last Admin: 01/06/20 16:21 Dose: 650 mg Documented by: Amino Acids (Prosource No Carb Liquid Pkt) 30 ml PO DAILY [facility] Last Admin: 01/11/20 11:14 Dose: 30 ml Documented by: Artificial Tears (Artificial Tears) 1 drop OU BID PRN PRN Reason: DRY EYES Banana Based Medical Food (Banatrol Plus Powder Packet) 1 packet PO TID [facility]HAEL Last Admin: 01/11/20 14:16 Dose: 1 packet Documented by: Collagenase (Santyl -) 1 applic TP DAILY MICHAEL; Protocol Last Admin: 01/11/20 11:15 Dose: 1 applic Documented by: Famotidine (Pepcid) 20 mg PEG DAILY [facility] Last Admin: 01/11/20 11:15 Dose: 20 mg Documented by: IV Flush (Triple Lumen Flush) 4 ml IVPUSH PRN PRN PRN Reason: Protocol Levetiracetam (Keppra Oral Solution -) 500 mg GT BID [facility] Last Admin: 01/11/20 11:14 Dose: 500 mg Documented by: Levothyroxine Sodium (Synthroid -) 25 mcg GT DAILY@0700 [facility] Last Admin: 01/11/20 06:03 Dose: 25 mcg Documented by: Mycophenolate Mofetil (Cellcept Suspension -) 500 mg NGT BID [facility] Last Admin: 01/11/20 11:14 Dose: 500 mg Documented by: Rosuvastatin Calcium (Crestor -) 10 mg PO HS [facility] Last Admin: 01/10/20 22:29 Dose: 10 mg Documented by: Sevelamer Carbonate (Renvela Powder Packet -) 0.8 gm PO TIDCM MICHAEL Last Admin: 01/11/20 14:16 Dose: 0.8 gm Documented by: Silver Sulfadiazine (Silvadene -) 1 applic TP BID MICHAEL Last Admin: 01/11/20 11:15 Dose: 1 applic Documented by: - Objective Vital Signs: Vital Signs Temperature 99.5 F 01/11/20 05:59 Pulse Rate 80 01/11/20 08:26 Respiratory Rate 27 H 01/11/20 11:49 Blood Pressure 150/73 01/11/20 05:59 O2 Sat by Pulse Oximetry (%) 100 01/11/20 08:26 Constitutional: Yes: Calm Eyes: Yes: Conjunctiva Clear HENT: Yes: Atraumatic Cardiovascular: Yes: S1, S2 Respiratory: Yes: Mechanically Ventilated Genitourinary: Yes: Incontinence Edema: Yes Edema: LLE: Trace, RLE: Trace Integumentary: Yes: Other (bullous pemphigoid) Neurological: Yes: Other (awake) Labs: CBC, BMP 01/08/20 06:30 01/10/20 05:55 INR, PTT INR 1.14 (0.83-1.09) H 12/26/19 08:05 Problem List - Problems (1) Acute respiratory failure Code(s): J96.00 - ACUTE RESPIRATORY FAILURE, UNSP W HYPOXIA OR HYPERCAPNIA (2) Bullous pemphigoid Code(s): L12.0 - BULLOUS PEMPHIGOID Assessment/Plan Current Medications Generic Name Dose Route Start Last Admin Trade Name Freq PRN Reason Stop Dose Admin Acetaminophen 650 mg 01/05/20 12:12 01/06/20 16:21 Tylenol Oral Solution - GT 650 mg Q4H PRN Administration PAIN Amino Acids 30 ml 12/31/19 10:00 01/11/20 11:14 Prosource No Carb Liquid Pkt PO 30 ml DAILY MICHAEL Administration Artificial Tears 1 drop 12/30/19 14:58 Artificial Tears OU BID PRN DRY EYES Banana Based Medical Food 1 packet 01/05/20 14:00 01/11/20 14:16 Banatrol Plus Powder Packet PO 1 packet TID MICHAEL Administration Collagenase 1 applic 01/02/20 10:45 01/11/20 11:15 Santyl - TP 1 applic DAILY MICHAEL Administration Protocol Famotidine 20 mg 01/08/20 10:00 01/11/20 11:15 Pepcid PEG 20 mg DAILY [facility]HAEL Administration IV Flush 4 ml 12/31/19 13:49 Triple Lumen Flush IVPUSH PRN PRN Protocol Levetiracetam 500 mg 01/07/20 22:00 01/11/20 11:14 Keppra Oral Solution - GT 500 mg BID MICHAEL Administration Levothyroxine Sodium 25 mcg 01/08/20 07:00 01/11/20 06:03 Synthroid - GT 25 mcg DAILY@0700 [facility]EL Administration Mycophenolate Mofetil 500 mg 12/31/19 22:00 01/11/20 11:14 Cellcept Suspension - NGT 500 mg BID MICHAEL Administration Rosuvastatin Calcium 10 mg 12/30/19 22:00 01/10/20 22:29 Crestor - PO 10 mg HS MICHAEL Administration Sevelamer Carbonate 0.8 gm 12/30/19 17:30 01/11/20 14:16 Renvela Powder Packet - PO 0.8 gm TIDCM MICHAEL Administration Silver Sulfadiazine 1 applic 12/30/19 22:00 01/11/20 11:15 Silvadene - TP 1 applic BID MICHAEL Administration Impression 1. CKD 2. CHF 3. BPH 4. a. fib 5. CAD 6. epilepsy 7. proteinuria 8. anemia 9. foot ulcer 10. abd wall cellulitis 11. bullous pemphigoid 12. LETITIA 13. hyperkalemia 14. cardiac arrest 15. resp failure on vent 16. r/o aspiration Plan - po lasix - check bmp - vent support - cont feeds - cellcept for bullous pemphigoid - cont wound care
[2020-01-11] MEDS ORDERED: FUROSEMIDE 40 MG/5 ML UNIT-DOSE CUP PO SCH (15:00)
[2020-01-11] MEDS: ROSUVASTATIN CA 10 MG TABLET (FP) PO SCH (21:22)
[2020-01-12] MEDS: LEVOTHYROXINE NA 25 MCG TABLET (FP) GT SCH (06:00)
[2020-01-12] MEDS: BANATROL PLUS POWDER PACKET PO SCH ×2 (06:00→13:46)
--- NOTE | 2020-01-12 08:44 | DS ---
Physical Examination Vital Signs: Vital Signs Temperature 99.6 F 01/12/20 06:00 Pulse Rate 72 01/12/20 08:39 Respiratory Rate 16 01/12/20 08:39 Blood Pressure 142/83 01/12/20 06:00 O2 Sat by Pulse Oximetry (%) 100 01/12/20 08:39 Cardiovascular: Yes: S1, S2 Respiratory: Yes: Mechanically Ventilated Gastrointestinal: Yes: Normal Bowel Sounds, Soft Labs: CBC, BMP 01/08/20 06:30 01/10/20 05:55 Discharge Summary Problems reviewed: Yes Reason For Visit: BULLOUS PEMPHIGOID, WEAKNESS, UNABLE TO WALK Current Active Problems Acute respiratory failure (Acute) Bacteremia (Acute) Bullous pemphigoid (Acute) Caregiver unable to cope (Acute) Diabetic ulcer of right foot (Acute) Diarrhea (Acute) Generalized weakness (Acute) Unable to ambulate (Acute) Blisters of multiple sites (Chronic) Hospital Course: s/p Cardiopulmonary Arrest Acute Hypoxic and Hypercapneic Respiratory Failure Likely Aspiration Pneumonia Septic Shock Acute on Chronic Renal Failure Lactic Acidosis Bullous Pemphigoid CAD LV Diastolic Dysfunction Atrial Fibrillation Seizure Disorder h/o CVA Hypothyroidism Anemia Thrombocytopenia (1) Acute respiratory failure Assessment/Plan: -Mech vent -Pulmonary consult -S/P PEG placement -Continue TF -Bronchodilators Problems reviewed: Yes Code(s): J96.00 - ACUTE RESPIRATORY FAILURE, UNSP W HYPOXIA OR HYPERCAPNIA (2) Bullous pemphigoid Assessment/Plan: -Cellcept restarted -Silvadene top Problems reviewed: Yes Code(s): L12.0 - BULLOUS PEMPHIGOID (3) Acute on chronic renal insufficiency Assessment/Plan: -Nephrology on board -monitor daily labs Problems reviewed: Yes Code(s): N28.9 - DISORDER OF KIDNEY AND URETER, UNSPECIFIED; N18.9 - CHRONIC KIDNEY DISEASE, UNSPECIFIED (4) Pneumonia Assessment/Plan: -Likely aspiration -CXR reviewed -COVID 19 PCR negative -Off IV abx -ID consult -Lactic acidosis noted -afebrile Problems reviewed: Yes Code(s): J18.9 - PNEUMONIA, UNSPECIFIED ORGANISM (5) Afib Assessment/Plan: -Chronic, rate controlled -Eliquis Held due to acute GI bleed -Transfuse only if Hg <7.0 to avoid fluid overload Problems reviewed: Yes Code(s): I48.91 - UNSPECIFIED ATRIAL FIBRILLATION (6) Anemia Assessment/Plan: -Chronic -H/H stable at this time -workup last admission was negative -hematology consult -Transfuse only if hg<7.0 to avoid fluid overload. -Procrit as per hematology Problems reviewed: Yes Code(s): D64.9 - ANEMIA, UNSPECIFIED (7) Diarrhea Assessment/Plan: -resolved -likely Refeeding syndrome -Rectal tube dc'd -Cdiff PCR negative Problems reviewed: Yes Code(s): R19.7 - DIARRHEA, UNSPECIFIED Assessment/Plan See problem list GI PPX COVID 19 PCR negative Condition: Stable - Instructions Disposition: RETIREMENT FACILITY - Home Medications Comprehensive Discharge Medication List: Ambulatory Orders Levothyroxine [Synthroid -] 25 mcg PO DAILY 07/15/19 levETIRAcetam [Keppra -] 500 mg PO BID 07/15/19 Cholecalciferol (Vitamin D3) [Vitamin D -] 800 unit PO DAILY tab 08/26/19 Rosuvastatin [Crestor -] 10 mg PO DAILY 11/06/19 Furosemide [Lasix -] 20 mg PO DAILY tablet 12/06/19 Mycophenolate Mofetil [Cellcept -] 500 mg PO BID tablet 12/06/19 Acetaminophen Oral Solution [Tylenol Oral Solution -] 650 mg GT Q4H PRN soln.oral 01/09/20 Amino Acids/Protein Hydrolys [Prosource No Carb Liquid Pkt] 30 ml PO DAILY packet 01/09/20 Collagenase Clostridium Hist. [Santyl -] 1 applic TP DAILY tube 01/09/20 Famotidine [Pepcid] 20 mg PEG DAILY oral.susp 01/09/20 Levothyroxine [Synthroid -] 25 mcg GT DAILY@0700 tablet 01/09/20 Mycophenolate Mofetil [Cellcept Suspension 200 mg/mL -] 500 mg NGT BID ml 01/09/20 Polyvinyl Alcohol [Artificial Tears] 1 drop OU BID PRN drops 01/09/20 Sevelamer Carbonate [Renvela Powder Packet -] 0.8 gm PO TIDCM powd.pack 01/09/20 Silver Sulfadiazine 1% Top Cr [Silvadene -] 1 applic TP BID jar 01/09/20 Triple Lumen Flush 4 ml IVPUSH PRN PRN ml 01/09/20 levETIRAcetam [Keppra Oral Solution -] 500 mg GT BID cup 01/09/20
[2020-01-12] MEDS ORDERED: PT OWN MED DRAWER 7, Y5N ONE ×2 (09:16→13:22)
[2020-01-12] MEDS: FAMOTIDINE 40 MG/5 ML ORAL SUSPENSION PEG SCH (09:26)
[2020-01-12] MEDS: AMINO ACIDS/PROTEIN HYDROLYS 30 ML LIQUID.PKT PO SCH (09:26)
[2020-01-12] MEDS: MYCOPHENOLATE MOFETIL 200 MG/ML SUSPENSION NGT SCH (09:26)
[2020-01-12] MEDS: levETIRAcetam 500 MG/5 ML ORAL SOLUTION (UNIT-DOSE CUPS) GT SCH (09:26)
[2020-01-12] MEDS: SEVELAMER CARBONATE 0.8 GM POWDER PACKET PO SCH ×3 (09:26→17:48)
[2020-01-12] MEDS: SILVER SULFADIAZINE 1% TOP CREAM 50 GM JAR TP SCH (09:27)
[2020-01-12] MEDS: COLLAGENASE CLOSTRIDIUM HIST. 30 GRAMS TUBE TP SCH (09:27)
[2020-01-12 09:41] LABS: BLOOD UREA NITROGEN 79.7 mg/dL (7-18); CALCIUM 8.1 mg/dL (8.5-10.1); CREATININE 1.3 mg/dL (0.55-1.3)
--- NOTE | 2020-01-12 11:39 | PN ---
Progress Note (short form) - Note Progress Note: PULMONARY Vented, awake. No fevers. Vital Signs Period Temp Pulse Resp BP Sys/Hair Pulse Ox Last 24 Hr 99 F-99.9 F 72-88 16- 142-157/75-89 99-100 Gen: vented, awake Heart: RRR Lung: decreased breath sounds at the bases Abd: soft, nontender Ext: no edema CBC, BMP 01/08/20 06:30 01/12/20 06:45 Active Medications Acetaminophen (Tylenol Oral Solution -) 650 mg GT Q4H PRN PRN Reason: PAIN Last Admin: 01/06/20 16:21 Dose: 650 mg Documented by: Amino Acids (Prosource No Carb Liquid Pkt) 30 ml PO DAILY [facility] Last Admin: 01/12/20 09:26 Dose: 30 ml Documented by: Artificial Tears (Artificial Tears) 1 drop OU BID PRN PRN Reason: DRY EYES Banana Based Medical Food (Banatrol Plus Powder Packet) 1 packet PO TID [facility] Last Admin: 01/12/20 06:00 Dose: 1 packet Documented by: Collagenase (Santyl -) 1 applic TP DAILY [facility]; Protocol Last Admin: 01/12/20 09:27 Dose: 1 applic Documented by: Famotidine (Pepcid) 20 mg PEG DAILY [facility] Last Admin: 01/12/20 09:26 Dose: 20 mg Documented by: Furosemide (Lasix Oral Solution -) 20 mg PO Q2D@1000 [facility] Last Admin: 01/11/20 18:33 Dose: 20 mg Documented by: IV Flush (Triple Lumen Flush) 4 ml IVPUSH PRN PRN PRN Reason: Protocol Levetiracetam (Keppra Oral Solution -) 500 mg GT BID [facility] Last Admin: 01/12/20 09:26 Dose: 500 mg Documented by: Levothyroxine Sodium (Synthroid -) 25 mcg GT DAILY@0700 [facility] Last Admin: 01/12/20 06:00 Dose: 25 mcg Documented by: Mycophenolate Mofetil (Cellcept Suspension -) 500 mg NGT BID [facility] Last Admin: 01/12/20 09:26 Dose: 500 mg Documented by: Rosuvastatin Calcium (Crestor -) 10 mg PO HS [facility] Last Admin: 01/11/20 21:22 Dose: 10 mg Documented by: Sevelamer Carbonate (Renvela Powder Packet -) 0.8 gm PO TIDCM [facility] Last Admin: 01/12/20 09:26 Dose: 0.8 gm Documented by: Silver Sulfadiazine (Silvadene -) 1 applic TP BID [facility] Last Admin: 01/12/20 09:27 Dose: 1 applic Documented by: A/P s/p Cardiopulmonary Arrest Acute Hypoxic and Hypercapneic Respiratory Failure s/p Tracheostomy Likely Aspiration Pneumonia S/P Septic Shock Acute on Chronic Renal Failure improving Lactic Acidosis Bullous Pemphigoid CAD LV Diastolic Dysfunction Atrial Fibrillation Seizure Disorder h/o CVA Hypothyroidism Anemia Thrombocytopenia - completed antibiotics - monitor H/H - continue lasix - monitor urine output, creatinine - rate control - spontaneous breathing trials as tolerated - enteral feeds - DVT/GI prophylaxis
[2020-01-12 15:27] VITALS: PULSE 77
--- NOTE | 2020-01-12 16:46 | PN ---
Progress Note, Physician History of Present Illness: Pt seen and examined at bedside. He appears comfortable. He is tolerating feeds. - Current Medication List Current Medications: Active Medications Acetaminophen (Tylenol Oral Solution -) 650 mg GT Q4H PRN PRN Reason: PAIN Last Admin: 01/06/20 16:21 Dose: 650 mg Documented by: Amino Acids (Prosource No Carb Liquid Pkt) 30 ml PO DAILY [facility] Last Admin: 01/12/20 09:26 Dose: 30 ml Documented by: Artificial Tears (Artificial Tears) 1 drop OU BID PRN PRN Reason: DRY EYES Banana Based Medical Food (Banatrol Plus Powder Packet) 1 packet PO TID [facility] Last Admin: 01/12/20 13:46 Dose: 1 packet Documented by: Collagenase (Santyl -) 1 applic TP DAILY [facility]; Protocol Last Admin: 01/12/20 09:27 Dose: 1 applic Documented by: Famotidine (Pepcid) 20 mg PEG DAILY [facility] Last Admin: 01/12/20 09:26 Dose: 20 mg Documented by: Furosemide (Lasix Oral Solution -) 20 mg PO Q2D@1000 [facility] Last Admin: 01/11/20 18:33 Dose: 20 mg Documented by: IV Flush (Triple Lumen Flush) 4 ml IVPUSH PRN PRN PRN Reason: Protocol Levetiracetam (Keppra Oral Solution -) 500 mg GT BID [facility] Last Admin: 01/12/20 09:26 Dose: 500 mg Documented by: Levothyroxine Sodium (Synthroid -) 25 mcg GT DAILY@0700 [facility] Last Admin: 01/12/20 06:00 Dose: 25 mcg Documented by: Mycophenolate Mofetil (Cellcept Suspension -) 500 mg NGT BID [facility] Last Admin: 01/12/20 09:26 Dose: 500 mg Documented by: Rosuvastatin Calcium (Crestor -) 10 mg PO HS [facility] Last Admin: 01/11/20 21:22 Dose: 10 mg Documented by: Sevelamer Carbonate (Renvela Powder Packet -) 0.8 gm PO TIDCM [facility] Last Admin: 01/12/20 13:46 Dose: 0.8 gm Documented by: Silver Sulfadiazine (Silvadene -) 1 applic TP BID [facility] Last Admin: 01/12/20 09:27 Dose: 1 applic Documented by: - Objective Vital Signs: Vital Signs Temperature 99.7 F H 01/12/20 13:00 Pulse Rate 77 01/12/20 13:00 Respiratory Rate 25 H 01/12/20 15:14 Blood Pressure 157/86 01/12/20 13:00 O2 Sat by Pulse Oximetry (%) 100 01/12/20 13:00 Constitutional: Yes: Calm Eyes: Yes: Conjunctiva Clear HENT: Yes: Atraumatic Cardiovascular: Yes: S1, S2 Respiratory: Yes: Mechanically Ventilated Gastrointestinal: Yes: Soft Genitourinary: Yes: Incontinence Musculoskeletal: Yes: Muscle Weakness Edema: LLE: Trace, RLE: Trace Neurological: Yes: Other (awake) Labs: CBC, BMP 01/08/20 06:30 01/12/20 06:45 INR, PTT INR 1.14 (0.83-1.09) H 12/26/19 08:05 Problem List - Problems (1) Acute respiratory failure Code(s): J96.00 - ACUTE RESPIRATORY FAILURE, UNSP W HYPOXIA OR HYPERCAPNIA (2) Bullous pemphigoid Code(s): L12.0 - BULLOUS PEMPHIGOID Assessment/Plan Current Medications Generic Name Dose Route Start Last Admin Trade Name Freq PRN Reason Stop Dose Admin Acetaminophen 650 mg 01/05/20 12:12 01/06/20 16:21 Tylenol Oral Solution - GT 650 mg Q4H PRN Administration PAIN Amino Acids 30 ml 12/31/19 10:00 01/12/20 09:26 Prosource No Carb Liquid Pkt PO 30 ml DAILY MICHAEL Administration Artificial Tears 1 drop 12/30/19 14:58 Artificial Tears OU BID PRN DRY EYES Banana Based Medical Food 1 packet 01/05/20 14:00 01/12/20 13:46 Banatrol Plus Powder Packet PO 1 packet TID MICHAEL Administration Collagenase 1 applic 01/02/20 10:45 01/12/20 09:27 Santyl - TP 1 applic DAILY MICHAEL Administration Protocol Famotidine 20 mg 01/08/20 10:00 01/12/20 09:26 Pepcid PEG 20 mg DAILY MICHAEL Administration Furosemide 20 mg 01/11/20 15:00 01/11/20 18:33 Lasix Oral Solution - PO 20 mg Q2D@1000 MICHAEL Administration IV Flush 4 ml 12/31/19 13:49 Triple Lumen Flush IVPUSH PRN PRN Protocol Levetiracetam 500 mg 01/07/20 22:00 01/12/20 09:26 Keppra Oral Solution - GT 500 mg BID MICHAEL Administration Levothyroxine Sodium 25 mcg 01/08/20 07:00 01/12/20 06:00 Synthroid - GT 25 mcg DAILY@0700 MICHAEL Administration Mycophenolate Mofetil 500 mg 12/31/19 22:00 01/12/20 09:26 Cellcept Suspension - NGT 500 mg BID MICHAEL Administration Rosuvastatin Calcium 10 mg 12/30/19 22:00 01/11/20 21:22 Crestor - PO 10 mg HS MICHAEL Administration Sevelamer Carbonate 0.8 gm 12/30/19 17:30 01/12/20 13:46 Renvela Powder Packet - PO 0.8 gm TIDCM MICHAEL Administration Silver Sulfadiazine 1 applic 12/30/19 22:00 01/12/20 09:27 Silvadene - TP 1 applic BID MICHAEL Administration Impression 1. CKD 2. CHF 3. BPH 4. a. fib 5. CAD 6. epilepsy 7. proteinuria 8. anemia 9. foot ulcer 10. abd wall cellulitis 11. bullous pemphigoid 12. LETITIA 13. hyperkalemia 14. cardiac arrest 15. resp failure on vent 16. r/o aspiration Plan - labs reviewed - renal function is stable - monitor bmp in rehab - cont lasix and monitor volume status - vent support - cont feeds - cellcept for bullous pemphigoid - cont wound care, skin markedly improved
[2020-01-12 18:57] VITALS: BP 162/83; TEMP 98.8
== END 2020-01-12 19:59 | DRG 4 ==
LOC: JER 19:47 → JERBED 21:03 → J6S 12-04 00:41 → J4S 12-07 14:30 → JICU 12-09 06:40 → J5S 12-30 14:35
PROVIDERS: ADMIT Internal Medicine; ATTEND Family Medicine
PROC: 5A1955Z Respiratory Ventilation, Greater than 96 Consecutive Hours (ICD-10-PCS; 2019-12-08)
PROC: 0BH17EZ Insertion of Endotracheal Airway into Trachea, Via Natural or Artificial Opening (ICD-10-PCS; 2019-12-08)
PROC: 0DH67UZ Insertion of Feeding Device into Stomach, Via Natural or Artificial Opening (ICD-10-PCS; 2019-12-08)
PROC: 3E0G76Z Introduction of Nutritional Substance into Upper GI, Via Natural or Artificial Opening (ICD-10-PCS; 2019-12-08)
PROC: 02HV33Z Insertion of Infusion Device into Superior Vena Cava, Percutaneous Approach (ICD-10-PCS; 2019-12-09)
PROC: B548ZZA Ultrasonography of Superior Vena Cava, Guidance (ICD-10-PCS; 2019-12-09)
PROC: 30233N1 Transfusion of Nonautologous Red Blood Cells into Peripheral Vein, Percutaneous Approach (ICD-10-PCS; 2019-12-11)
PROC: 05H433Z Insertion of Infusion Device into Left Innominate Vein, Percutaneous Approach (ICD-10-PCS; 2019-12-19)
PROC: B54NZZA Ultrasonography of Left Upper Extremity Veins, Guidance (ICD-10-PCS; 2019-12-19)
PROC: 0B113F4 Bypass Trachea to Cutaneous with Tracheostomy Device, Percutaneous Approach (ICD-10-PCS; principal; 2019-12-26)
PROC: 0BJ08ZZ Inspection of Tracheobronchial Tree, Via Natural or Artificial Opening Endoscopic (ICD-10-PCS; 2019-12-26)
PROC: 05HF33Z Insertion of Infusion Device into Left Cephalic Vein, Percutaneous Approach (ICD-10-PCS; 2019-12-28)
PROC: B54NZZA Ultrasonography of Left Upper Extremity Veins, Guidance (ICD-10-PCS; 2019-12-28)
PROC: 0DH63UZ Insertion of Feeding Device into Stomach, Percutaneous Approach (ICD-10-PCS; 2020-01-01)
PROC: 02HV33Z Insertion of Infusion Device into Superior Vena Cava, Percutaneous Approach (ICD-10-PCS; 2020-01-02)
PROC: B548ZZA Ultrasonography of Superior Vena Cava, Guidance (ICD-10-PCS; 2020-01-02)
DX: L12.0 Bullous pemphigoid (principal); I50.33 Acute on chronic diastolic (congestive) heart failure; J96.01 Acute respiratory failure with hypoxia; J69.0 Pneumonitis due to inhalation of food and vomit; I46.9 Cardiac arrest, cause unspecified; J96.02 Acute respiratory failure with hypercapnia; R65.21 Severe sepsis with septic shock; A41.9 Sepsis, unspecified organism; I69.351 Hemiplegia and hemiparesis following cerebral infarction affecting right dominant side; I13.0 Hypertensive heart and chronic kidney disease with heart failure and stage 1 through stage 4 chronic kidney disease, or unspecified chronic kidney disease; N18.4 Chronic kidney disease, stage 4 (severe); I50.32 Chronic diastolic (congestive) heart failure; L97.419 Non-pressure chronic ulcer of right heel and midfoot with unspecified severity; N17.9 Acute kidney failure, unspecified; E87.2 Acidosis; I25.10 Atherosclerotic heart disease of native coronary artery without angina pectoris; E11.621 Type 2 diabetes mellitus with foot ulcer; E03.9 Hypothyroidism, unspecified; E66.9 Obesity, unspecified; E11.22 Type 2 diabetes mellitus with diabetic chronic kidney disease; G40.909 Epilepsy, unspecified, not intractable, without status epilepticus; R62.7 Adult failure to thrive; D63.1 Anemia in chronic kidney disease; Z68.28 Body mass index [BMI] 28.0-28.9, adult; E88.09 Other disorders of plasma-protein metabolism, not elsewhere classified; Z98.61 Coronary angioplasty status; E87.5 Hyperkalemia; I48.0 Paroxysmal atrial fibrillation; E11.51 Type 2 diabetes mellitus with diabetic peripheral angiopathy without gangrene; I27.20 Pulmonary hypertension, unspecified; R19.7 Diarrhea, unspecified; K29.70 Gastritis, unspecified, without bleeding; D69.6 Thrombocytopenia, unspecified; Z11.59 Encounter for screening for other viral diseases; E83.39 Other disorders of phosphorus metabolism; Z85.038 Personal history of other malignant neoplasm of large intestine; Z74.8 Other problems related to care provider dependency
CPT/HCPCS: 36415; 36430; 36569; 36600; 49440; 70450-TC; 71045-TC-FY; 74018-TC-FY; 77001-TC-FY; 80048; 80053; 82550; 82728; 82803; 82962; 83540; 83550; 83605; 83735; 84100; 84146; 84484; 85025; 85027; 85610; 85730; 86850; 86900; 86901; 86922; 87040; 87070; 87077; 87086; 87186; 87205; 87493; 93005; 93010; 93306-TC; 94002; 94640; 97116-GP; 97162-GP; 99285-25; C1751; G0480; J0131; J0885; J1644; J1756; J2597; J7517; P9058; Q5106; U0003